=== PATIENT | male | born 1950 | race Caucasian/White ===

== ENCOUNTER 2021-06-21 17:39 | Inpatient (IN) | payer MEDICARE, SELFPAY ==
[2021-06-21 19:18] VITALS: BP 136/70; PULSE 99; RESP 16; TEMP 37; O2SAT 97; BMI 25.7
[2021-06-21 19:54] LABS: COVID-19 Test Negative (Negative)
[2021-06-21 20:02] LABS: MANUAL DIFF FLAG NO
[2021-06-21 20:04] LABS: Basophils Percent Auto 0.3 % (0-2); Eosinophils Percent Auto 0.4 % (0-4); Hematocrit 41.2 % (42.0-52.0); Hemoglobin 13.2 g/dl (14.0-18.0); Imm Gran Abs Auto 0.01 X10*3/uL (0.00-0.03); Imm Gran Pct Auto 0.1 % (0.0-0.4); Lymphocytes Absolute Auto 1.4 X10*3/uL (1.2-4.9); Lymphocytes Percent Auto 19.5 % (20-40); Mean Corpuscular Hemoglobin 31.2 pg (27.0-33.0); Mean Corpuscular Volume 97.4 fL (80.0-98.0); Monocytes Absolute Auto 0.7 X10*3/uL (0.1-1.2); Monocytes Percent Auto 9.4 % (2-11); Neutrophils Absolute Auto 4.9 x10*3/uL (2.0-8.3); Neutrophils Percent Auto 70.3 % (45-73); Platelet Count 286 X10*3/uL (160-400); Red Blood Count 4.23 X10*6/uL (4.60-5.80); Red Cell Distribution Width 12.6 % (11.0-16.0)
[2021-06-21 20:06] LABS: Appearance Urine CLEAR; Color Urine YELLOW; Glucose Urine UA NEG (NEG); Leukocyte Esterase Urine TRACE (NEG); Nitrite Urine NEG (NEG); Urine Blood NEG (NEG); Urine Ketones NEG (NEG); Urine Protein NEG (NEG-TRACE)
[2021-06-21 20:18] LABS: Bacteria Urine TRACE /LPF; RBC Urine 0 /HPF (0); WBC Urine 0-2 /HPF (0-4)
[2021-06-21 20:20] LABS: Alanine Aminotransferase 13 U/L (0-40); Albumin Level 4.5 g/dL (3.5-5.0); Alkaline Phosphatase 113 U/L (39-117); Amphetamine Screen Urine Not Detected (Not Detect); Anion Gap 14 (12-20); Aspartate Amino Transferase 18 U/L (5-37); Barbiturates, Urine Not Detected (Not Detect); Benzodiazepines Screen Urine Not Detected (Not Detect); Bilirubin Direct < 0.2 mg/dL (0.0-0.5); Bilirubin Total 0.2 mg/dL (0.0-1.0); Blood Urea Nitrogen 13 mg/dL (9-16); Calcium 9.9 mg/dL (8.4-10.2); Cannabinoid Screen Urine Not Detected (Not Detect); Carbon Dioxide 30 mmol/L (22-29); Chloride 105 mmol/L (96-108); Cocaine Screen Urine Not Detected (Not Detect); Creatinine Clr Calc Pharmacy 67.3; Estimated Glomerular Filt Rate > 60; Fentanyl, urine Not Detected (Not Detect); Glucose Random 101 mg/dL (60-115); Opiate Screen Urine Not Detected (Not Detect); Phencyclidine Screen Urine Not Detected (Not Detect); Potassium 4.6 mmol/L (3.3-5.1); Sodium 144 mmol/L (135-145)
--- NOTE | 2021-06-21 21:40 | ED_ITS ---
HPI - Psych General Chief Complaint: Psychiatric Symptoms Stated Complaint: see crisis Time Seen by Provider: 06/21/21 19:27 Source: patient Mode of arrival: ambulatory History of Present Illness HPI Narrative: 70-year-old male transgender with a past medical history of tracheal stenosis, presenting to the ED complaining of increased depression with suicidal ideations x months. Reports sent in by his psychiatric nurse for evaluation/admission. Reports recent loss of his cat, with no desire to live or do anything anymore. Admits to many ways that he ponders suicide, but denies SI attempt. Reports compliance with medications. Denies HI, ETOH/illicit drug use, fever/chills, CP/SOB complaint: suicidal ideation and feels depressed Onset (ago): month(s) Related Data Home Medications Medication Instructions Recorded Confirmed amitriptyline 10 mg tablet 20 mg PO BEDTIME 06/21/21 06/21/21 lorazepam 0.5 mg tablet 0.25 mg PO BEDTIME PRN 06/21/21 06/21/21 lorazepam 0.5 mg tablet 0.5 mg PO DAILY@1700 06/21/21 06/21/21 mirabegron 50 mg tablet,extended 1 tab PO DAILY@1700 06/21/21 06/21/21 release 24 hr (Myrbetriq) olanzapine 2.5 mg tablet 2.5 mg PO BEDTIME 06/21/21 06/21/21 pantoprazole 40 mg tablet,delayed 1 tab PO DAILY 06/21/21 06/21/21 release venlafaxine 37.5 mg tablet 37.5 mg PO BEDTIME 06/21/21 06/21/21 zolpidem 10 mg tablet 1 tab PO BEDTIME 06/21/21 06/21/21 Allergies Allergy/AdvReac Type Severity Reaction Status Date / Time ciprofloxacin [From Allergy Unknown DIARRHEA Verified 06/21/21 19:28 CIPRO] Review of Systems Verdana 4l Review of Systems: Verdana 4d Verdana 4d Constitutional: No Fever, No Chills, No Fatigue, No Malaise ENT/Mouth: No Hearing loss, No Ear Pain, No Nasal Congestion, No sore throat Eyes: No Eye Pain, No Swelling, No Redness Cardiovascular: No Chest Pain, No SOB Respiratory: No CoughCough, No Dyspnea Gastrointestinal: No Nausea, No Vomiting, No Diarrhea, No Constipation, No Abdominal pain Genitourinary: No Dysuria, No Hematuria, No Urgency Musculoskeletal: No joint pain, No Myalgias, No Joint Swelling Skin: No Skin Lesions, No rash Neuro: No Weakness, No Dizziness, No Headache Psych: No Anxiety/Panic, + Depression, + SI, No HI/AH/VH, No Social Issues Yes all other systems are reviewed and are negative [facility] Past Medical History Attestation statement: The following information was validated with the patient. Medical History Hard of hearing Tracheal stenosis Transgender Social History Social History Advance Directives: No Advance Directives Information Provided: No Guardian: No Physical Exam Verdana 4l Vital Signs: Verdana 4d Verdana 4d Vital Signs: Verdana 4d Verdana 4Bd Last Vital Signs Verdana 4d Synthetic Soil [employer]ocks Pulper New 4d Synthetic Soil [employer]ocks Pulper New 4d Temp 98.2 F 06/22/21 01:48 Synthetic [place]il [employer] Pulper New 4d Pulse 84 06/22/21 01:48 [employer] [place] Pulper New 4d Resp 18 06/22/21 01:48 BP 139/72 06/22/21 01:48 Pulse Ox 99 06/22/21 01:48 BMI result Body Mass Index 25.7 Const: General: cooperative, healthy appearing, no acute distress, alert and awake Orientation/consciousness: patient oriented x3 Limitations: no limitations HENMT: Head: Yes normal to inspection and Yes atraumatic Ears: hearing grossly normal bilaterally General nose exam: Normal external nose present Face and sinus: Yes normal facial exam Eyes: General: appearance normal, both eyes and all related structures EOM: EOMs intact bilaterally Neck: Neck: Yes normal visual inspection and Yes no meningeal signs Resp: Effort & Inspection: normal respiratory effort and no respiratory distress Auscultation: clear to auscultation bilaterally, no rales, no rhonchi and no wheezes Cardio: Rate: regular rate Heart sounds: S1 normal heart sound present and S2 normal heart sound present GI: Inspection: Yes normal to inspection Palpation (GI): Soft to palpation, nontender and no guarding Skin: Rashes: no rashes Wounds: no wounds Neuro: General: patient oriented x3 and no meningeal signs Gait exam (Neuro): Normal gait present Extrem: General: Yes normal to inspection Psych: Appearance: grossly normal and well kempt Mental Status: mental status grossly normal Affect: normal affect Attitude: cooperative Thought content: Suicidality present, no homicidality and Depressive thoughts present Insight: Good insight present (Psych) Course Course Course Narrative: -no leukocytosis. H&H stable. Labs otherwise unremarkable -UA not infected. Tox screen negative. COVID-19 negative. Patient medically cleared, physician observation initiated as patient needs more time to be evaluated by care team -patient was evaluated by care team and is now an inpatient bed search -0300--ED care transferred to Dr. Membreno's pending bed search. Physician observation initiated MDM - Psych MDM Narrative Medical decision making narrative: 70-year-old male transgender with a past medical history of tracheal stenosis, presenting to the ED complaining of increased depression with suicidal ideations x months. On exam vital signs stable, NAD/nontoxic appearing, physical exam as above. Concern for suicidality/depression Will obtain labs, UA, drug screen, crisis consult Differential Diagnosis Differential diagnosis: Likely suicidal ideation and depression Medical Records Attestation: I reviewed the patient's medical records. Lab Data Attestation: I reviewed the patient's lab results. Result diagrams: 06/21/21 19:54 06/21/21 19:54 Labs: Lab Results 06/21/21 06/21/21 06/21/21 Range/Units 19:35 19:54 19:54 WBC 7.0 (4.8-10.8) X10*3/uL RBC 4.23 L (4.60-5.80) X10*6/uL Hgb 13.2 L (14.0-18.0) g/dl Hct 41.2 L (42.0-52.0) % MCV 97.4 (80.0-98.0) fL MCH 31.2 (27.0-33.0) pg MCHC 32.0 (31.0-36.0) g/dl RDW 12.6 (11.0-16.0) % Plt Count 286 (160-400) X10*3/uL MPV 11.0 (9.4-12.4) fL Immature Gran % (Auto) 0.1 (0.0-0.4) % Neut % (Auto) 70.3 (45-73) % Lymph % (Auto) 19.5 L (20-40) % [place] % (Auto) 9.4 (2-11) % Eos % (Auto) 0.4 (0-4) % Baso % (Auto) 0.3 (0-2) % Lymph # (Auto) 1.4 (1.2-4.9) X10*3/uL [place] # (Auto) 0.7 (0.1-1.2) X10*3/uL Eos # (Auto) 0.0 (0.0-0.4) X10*3/uL Baso # (Auto) 0.0 (0.0-0.2) X10*3/uL Abs Immat Gran (auto) 0.01 (0.00-0.03) X10*3/uL Absolute Neuts (auto) 4.9 (2.0-8.3) x10*3/uL Absolute Nucleated RBC 0.000 (0.0-0.012) X10*3/uL Nucleated RBC % (auto) 0.0 (0.0-0.2) /100WBC Sodium 144 (135-145) mmol/L Potassium 4.6 (3.3-5.1) mmol/L Chloride 105 (96-108) mmol/L Carbon Dioxide 30 H (22-29) mmol/L Anion Gap 14 (12-20) BUN 13 (9-16) mg/dL Creatinine 0.81 (0.5-1.4) mg/dL Estim Creat Clear Calc 67.3 Estimated GFR > 60 Random Glucose 101 (60-115) mg/dL Calcium 9.9 (8.4-10.2) mg/dL Total Bilirubin 0.2 (0.0-1.0) mg/dL Direct Bilirubin < 0.2 (0.0-0.5) mg/dL AST 18 (5-37) U/L ALT 13 (0-40) U/L Alkaline Phosphatase 113 (39-117) U/L Total Protein 7.0 (6.5-8.0) g/dL Albumin 4.5 (3.5-5.0) g/dL Urine Color Urine Appearance Urine pH (5.0-8.0) Ur Specific [place] (1.005-1.025) Urine Protein (NEG-TRACE) MG/DL Urine Glucose (UA) (NEG) MG/DL Urine Ketones (NEG) MG/DL Urine Blood (NEG) Urine Nitrite (NEG) Ur Leukocyte Esterase (NEG) Urine RBC (0) /HPF Urine WBC (0-4) /HPF Ur Squamous Epith Cells /LPF Urine Bacteria /LPF Urine Opiates Screen (Not Detect) Urine Fentanyl Screen (Not Detect) Ur Barbiturates Screen (Not Detect) Ur Phencyclidine Scrn (Not Detect) Ur Amphetamines Screen (Not Detect) U Benzodiazepines Scrn (Not Detect) Urine Cocaine Screen (Not Detect) U Marijuana (THC) Screen (Not Detect) COVID-19 ([facility]) Negative (Negative) COVID-19 Clin Com See Note 06/21/21 06/21/21 Range/Units 19:54 19:54 WBC (4.8-10.8) X10*3/uL RBC (4.60-5.80) X10*6/uL Hgb (14.0-18.0) g/dl Hct (42.0-52.0) % MCV (80.0-98.0) fL MCH (27.0-33.0) pg MCHC (31.0-36.0) g/dl RDW (11.0-16.0) % Plt Count (160-400) X10*3/uL MPV (9.4-12.4) fL Immature Gran % (Auto) (0.0-0.4) % Neut % (Auto) (45-73) % Lymph % (Auto) (20-40) % [place] % (Auto) (2-11) % Eos % (Auto) (0-4) % Baso % (Auto) (0-2) % Lymph # (Auto) (1.2-4.9) X10*3/uL [place] # (Auto) (0.1-1.2) X10*3/uL Eos # (Auto) (0.0-0.4) X10*3/uL Baso # (Auto) (0.0-0.2) X10*3/uL Abs Immat Gran (auto) (0.00-0.03) X10*3/uL Absolute Neuts (auto) (2.0-8.3) x10*3/uL Absolute Nucleated RBC (0.0-0.012) X10*3/uL Nucleated RBC % (auto) (0.0-0.2) /100WBC Sodium (135-145) mmol/L Potassium (3.3-5.1) mmol/L Chloride (96-108) mmol/L Carbon Dioxide (22-29) mmol/L Anion Gap (12-20) BUN (9-16) mg/dL Creatinine (0.5-1.4) mg/dL Estim Creat Clear Calc Estimated GFR Random Glucose (60-115) mg/dL Calcium (8.4-10.2) mg/dL Total Bilirubin (0.0-1.0) mg/dL Direct Bilirubin (0.0-0.5) mg/dL AST (5-37) U/L ALT (0-40) U/L Alkaline Phosphatase (39-117) U/L Total Protein (6.5-8.0) g/dL Albumin (3.5-5.0) g/dL Urine Color YELLOW Urine Appearance CLEAR Urine pH 7.0 (5.0-8.0) Ur Specific [place] 1.010 (1.005-1.025) Urine Protein NEG (NEG-TRACE) MG/DL Urine Glucose (UA) NEG (NEG) MG/DL Urine Ketones NEG (NEG) MG/DL Urine Blood NEG (NEG) Urine Nitrite NEG (NEG) Ur Leukocyte Esterase TRACE H (NEG) Urine RBC 0 (0) /HPF Urine WBC 0-2 (0-4) /HPF Ur Squamous Epith Cells NONE /LPF Urine Bacteria TRACE /LPF Urine Opiates Screen Not Detected (Not Detect) Urine Fentanyl Screen Not Detected (Not Detect) Ur Barbiturates Screen Not Detected (Not Detect) Ur Phencyclidine Scrn Not Detected (Not Detect) Ur Amphetamines Screen Not Detected (Not Detect) U Benzodiazepines Scrn Not Detected (Not Detect) Urine Cocaine Screen Not Detected (Not Detect) U Marijuana (THC) Screen Not Detected (Not Detect) COVID-19 ([facility]) (Negative) COVID-19 Clin Com Discharge Plan Discharge Clinical Impression: Depression, Suicidal ideation Patient Disposition: Still a Patient Prescriptions: No Action olanzapine 2.5 mg tablet 2.5 mg PO BEDTIME 0RF lorazepam 0.5 mg tablet 0.25 mg PO BEDTIME PRN (Reason: Anxiety) 0RF amitriptyline 10 mg tablet 20 mg PO BEDTIME 0RF pantoprazole 40 mg tablet,delayed release (DR/EC) 1 tab PO DAILY 0RF venlafaxine 37.5 mg tablet 37.5 mg PO BEDTIME 0RF zolpidem 10 mg tablet 1 tab PO BEDTIME 0RF Myrbetriq 50 mg tablet extended release 24 hr 1 tab PO DAILY@1700 0RF lorazepam 0.5 mg tablet 0.5 mg PO DAILY@1700 0RF
[2021-06-21] MEDS: Amitriptyline HCl 10 MG TABLET 20 MG PO (22:06)
[2021-06-21] MEDS: OLANZapine 2.5 MG TABLET PO (22:06)
[2021-06-21] MEDS: LORazepam 0.5 MG TABLET PO (22:06)
[2021-06-21] MEDS: Venlafaxine HCL 25 MG TABLET 37.5 MG PO (22:06)
[2021-06-21] MEDS: Zolpidem Tartrate 5 MG TABLET PO (22:06)
[2021-06-21] MEDS: LORazepam 0.5 MG TABLET 0.25 MG PO (22:07)
--- NOTE | 2021-06-22 | ECG_ITS ---
Test Reason : MED CLEARANCE Blood Pressure : / mmHG Vent. Rate : 083 BPM Atrial Rate : 083 BPM P-R Int : 152 ms QRS Dur : 074 ms QT Int : 362 ms P-R-T Axes : 057 047 073 degrees QTc Int : 425 ms Normal sinus rhythm with sinus arrhythmia Nonspecific ST and T wave abnormality Borderline ECG When compared with ECG of 27-MAR-2019 14:31, No significant change was found Referred By: Etienne Marin Electronically Signed By:WILSON YANEZ
[2021-06-22 01:48] VITALS: BP 139/72; PULSE 84; RESP 18; TEMP 36.8; O2SAT 99
--- NOTE | 2021-06-22 05:33 | PC.NURSE ---
Patient slept through the night, no distress observed/reported, patient is trans female to male, behavior appropriate, medication compliant, disposition per care team is section 12 inpatient bed search, VSS, will continue to monitor.
[2021-06-22] MEDS: Omeprazole 20 MG CAPSULE.DR PO (06:22)
--- NOTE | 2021-06-22 07:18 | PC.NURSE ---
patient appears to remain asleep at present respirations are even and unlabored, patient appears in no distress
[2021-06-22 08:03] VITALS: BP 113/61; PULSE 110; RESP 16; TEMP 36.7; O2SAT 92
[2021-06-22 11:17] LABS: COVID-19 Test Negative (Negative); IDNOW Serial# 55D5AD1C
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
[2021-06-22] MEDS: LORazepam 0.5 MG TABLET PO (17:01)
[2021-06-22] MEDS: Mirabegron 50 MG TAB.ER.24H PO (17:53)
[2021-06-22] MEDS: Milk of Magnesia 30 ML ORAL.SUSP PO (17:55)
[2021-06-22 18:00] VITALS: BP 140/88; PULSE 100; RESP 17; TEMP 36.8; O2SAT 95
[2021-06-22] MEDS: Amitriptyline HCl 10 MG TABLET 20 MG PO (21:00)
[2021-06-22] MEDS: Zolpidem Tartrate 5 MG TABLET PO (22:15)
[2021-06-22] MEDS: OLANZapine 5 MG TABLET PO (22:15)
[2021-06-23] MEDS: Omeprazole 20 MG CAPSULE.DR PO (05:15)
[2021-06-23 07:30] VITALS: BP 136/79; PULSE 98; RESP 16; TEMP 36.4; O2SAT 97
[2021-06-23 08:39] LABS: MANUAL DIFF FLAG NO
[2021-06-23 08:45] LABS: Basophils Percent Auto 0.6 % (0-2); Eosinophils Absolute Auto 0.1 X10*3/uL (0.0-0.4); Imm Gran Abs Auto 0.01 X10*3/uL (0.00-0.03); Imm Gran Pct Auto 0.2 % (0.0-0.4); Lymphocytes Absolute Auto 1.3 X10*3/uL (1.2-4.9); Lymphocytes Percent Auto 27.5 % (20-40); Mean Corpuscular HGB Conc 32.5 g/dl (31.0-36.0); Mean Corpuscular Hemoglobin 31.2 pg (27.0-33.0); Mean Corpuscular Volume 95.9 fL (80.0-98.0); Mean Platelet Volume 10.8 fL (9.4-12.4); Monocytes Absolute Auto 0.7 X10*3/uL (0.1-1.2); Monocytes Percent Auto 14.9 % (2-11); Neutrophils Absolute Auto 2.7 x10*3/uL (2.0-8.3); Neutrophils Percent Auto 55.8 % (45-73); Platelet Count 270 X10*3/uL (160-400); Red Blood Count 4.17 X10*6/uL (4.60-5.80); Red Cell Distribution Width 12.6 % (11.0-16.0); White Blood Count 4.8 X10*3/uL (4.8-10.8)
[2021-06-23] MEDS: LORazepam 0.5 MG TABLET PO ×2 (08:48→16:38)
[2021-06-23] MEDS: Escitalopram Oxalate 5 MG TABLET PO (08:48)
[2021-06-23] MEDS: Venlafaxine HCl ER 75 MG CAP.ER.24H PO (08:48)
[2021-06-23 09:12] LABS: Estimated Average Glucose 123 mg/dL; Hemoglobin A1c % 5.9 %
[2021-06-23 09:41] LABS: Alanine Aminotransferase 13 U/L (0-40); Albumin Level 4.3 g/dL (3.5-5.0); Alkaline Phosphatase 102 U/L (39-117); Aspartate Amino Transferase 16 U/L (5-37); Bilirubin Direct 0.2 mg/dL (0.0-0.5); Bilirubin Total 0.4 mg/dL (0.0-1.0); Cholesterol 207 mg/dL; HDL Cholesterol 58 mg/dL; LDL Cholesterol Calculated 114 mg/dl; Total Protein 6.4 g/dL (6.5-8.0); Triglycerides 177 mg/dL
[2021-06-23 10:03] LABS: Thyroid Stimulating Hormone 1.43 uIU/mL (0.32-4.0)
--- NOTE | 2021-06-23 10:07 | MHC.CLN ---
NUTRITION VISITED WITH PATIENT IN COMMON AREA. REPORTS GOOD APPETITE AND FOLLOWS VEGAN DIET. KITCHEN AWARE OF VEGAN DIET.
--- NOTE | 2021-06-23 15:08 | P.PNPSI_ITS ---
Subjective Subjective Date of Service: 06/23/21 Reason For Visit: depression Subjective Notes: Conditional Voluntary Interim History: The nursing staff reported the patient has being out in the common areas. He complained of depressive symptoms elicited by depressed mood, anhedonia, lack of energy and feelings of hopelessness. On interview, the patient was aware about the change of medications that we decided yesterday, we will continue with the taper of Effexor. We will wait for nortriptyline levels. Mental Status Exam Mental Status Exam Patient Appearance: Well Grooomed Patient Orientation: Person Level of Consciousness: Awake Patient Behavior: Cooperative Mood Description: Depressed Affect Description: Constricted Patient Cognition Impaired: No Ability to Follow Directions: Good Speech Pattern: Clear Hallucinations: None Delusions: Not Present Thought Process: Linear Thought Content: positive for Circumstantial Judgement: Fair Diagnostics Vital Signs (24Hr): Vital Signs - 24 hr 06/22/21 18:00 06/23/21 07:30 Temperature 98.2 F 97.6 F Pulse Rate 100 98 Respiratory Rate 17 16 Blood Pressure 140/88 H 136/79 Pulse Oximetry 95 97 BMI result Verdana 4 Body Mass Index Verdana 4 25.7 Verdana 4 Verdana 4 Labs Results: 06/23/21 08:32 06/21/21 19:54 Labs: Laboratory Results - last 48 hr 06/21/21 06/21/21 06/21/21 19:35 19:54 19:54 WBC 7.0 RBC 4.23 L Hgb 13.2 L Hct 41.2 L MCV 97.4 MCH 31.2 MCHC 32.0 RDW 12.6 Plt Count 286 MPV 11.0 Immature Gran % (Auto) 0.1 Neut % (Auto) 70.3 Lymph % (Auto) 19.5 L [place] % (Auto) 9.4 Eos % (Auto) 0.4 Baso % (Auto) 0.3 Lymph # (Auto) 1.4 [place] # (Auto) 0.7 Eos # (Auto) 0.0 Baso # (Auto) 0.0 Abs Immat Gran (auto) 0.01 Absolute Neuts (auto) 4.9 Absolute Nucleated RBC 0.000 Nucleated RBC % (auto) 0.0 Sodium 144 Potassium 4.6 Chloride 105 Carbon Dioxide 30 H Anion Gap 14 BUN 13 Creatinine 0.81 Estim Creat Clear Calc 67.3 Estimated GFR > 60 Random Glucose 101 Estimat Average Glucose Hemoglobin A1c % Calcium 9.9 Total Bilirubin 0.2 Direct Bilirubin < 0.2 AST 18 ALT 13 Alkaline Phosphatase 113 Total Protein 7.0 Albumin 4.5 Triglycerides Cholesterol LDL Cholesterol, Calc HDL Cholesterol TSH Urine Color Urine Appearance Urine pH Ur Specific Horatio Urine Protein Urine Glucose (UA) Urine Ketones Urine Blood Urine Nitrite Ur Leukocyte Esterase Urine RBC Urine WBC Ur Squamous Epith Cells Urine Bacteria Urine Opiates Screen Urine Fentanyl Screen Ur Barbiturates Screen Ur Phencyclidine Scrn Ur Amphetamines Screen U Benzodiazepines Scrn Urine Cocaine Screen U Marijuana (THC) Screen COVID-19 ([facility]) Negative COVID-CIQUAL Com See Note 06/21/21 06/21/21 06/22/21 19:54 19:54 10:53 WBC RBC Hgb Hct MCV MCH MCHC RDW Plt Count MPV Immature Gran % (Auto) Neut % (Auto) Lymph % (Auto) [place] % (Auto) Eos % (Auto) Baso % (Auto) Lymph # (Auto) [place] # (Auto) Eos # (Auto) Baso # (Auto) Abs Immat Gran (auto) Absolute Neuts (auto) Absolute Nucleated RBC Nucleated RBC % (auto) Sodium Potassium Chloride Carbon Dioxide Anion Gap BUN Creatinine Estim Creat Clear Calc Estimated GFR Random Glucose Estimat Average Glucose Hemoglobin A1c % Calcium Total Bilirubin Direct Bilirubin AST ALT Alkaline Phosphatase Total Protein Albumin Triglycerides Cholesterol LDL Cholesterol, Calc HDL Cholesterol TSH Urine Color YELLOW Urine Appearance CLEAR Urine pH 7.0 Ur Specific [place] 1.010 Urine Protein NEG Urine Glucose (UA) NEG Urine Ketones NEG Urine Blood NEG Urine Nitrite NEG Ur Leukocyte Esterase TRACE H Urine RBC 0 Urine WBC 0-2 Ur Squamous Epith Cells NONE Urine Bacteria TRACE Urine Opiates Screen Not Detected Urine Fentanyl Screen Not Detected Ur Barbiturates Screen Not Detected Ur Phencyclidine Scrn Not Detected Ur Amphetamines Screen Not Detected U Benzodiazepines Scrn Not Detected Urine Cocaine Screen Not Detected U Marijuana (THC) Screen Not Detected COVID-19 ([facility]) Negative [facility] See Note 06/23/21 06/23/21 06/23/21 08:32 08:32 08:32 WBC 4.8 RBC 4.17 L Hgb 13.0 L Hct 40.0 L MCV 95.9 MCH 31.2 MCHC 32.5 RDW 12.6 Plt Count 270 MPV 10.8 Immature Gran % (Auto) 0.2 Neut % (Auto) 55.8 Lymph % (Auto) 27.5 [place] % (Auto) 14.9 H Eos % (Auto) 1.0 Baso % (Auto) 0.6 Lymph # (Auto) 1.3 [place] # (Auto) 0.7 Eos # (Auto) 0.1 Baso # (Auto) 0.0 Abs Immat Gran (auto) 0.01 Absolute Neuts (auto) 2.7 Absolute Nucleated RBC 0.000 Nucleated RBC % (auto) 0.0 Sodium Potassium Chloride Carbon Dioxide Anion Gap BUN Creatinine Estim Creat Clear Calc Estimated GFR Random Glucose Estimat Average Glucose 123 Hemoglobin A1c % 5.9 Calcium Total Bilirubin 0.4 Direct Bilirubin 0.2 AST 16 ALT 13 Alkaline Phosphatase 102 Total Protein 6.4 L Albumin 4.3 Triglycerides 177 Cholesterol 207 LDL Cholesterol, Calc 114 HDL Cholesterol 58 TSH 1.43 Urine Color Urine Appearance Urine pH Ur Specific [place] Urine Protein Urine Glucose (UA) Urine Ketones Urine Blood Urine Nitrite Ur Leukocyte Esterase Urine RBC Urine WBC Ur Squamous Epith Cells Urine Bacteria Urine Opiates Screen Urine Fentanyl Screen Ur Barbiturates Screen Ur Phencyclidine Scrn Ur Amphetamines Screen U Benzodiazepines Scrn Urine Cocaine Screen U Marijuana (THC) Screen COVID-19 ([facility]) COVID-19 Clin Com Medications Medications Current Medications Acetaminophen (Acetaminophen 325 Mg Tablet) 650 mg PO Q6H PRN PRN Reason: Headache/Pain Mild Scale (1-3) Al Hydroxide/Mg Hydroxide (Magnesium Hydrox/Alum Hydrox 30 Ml Oral.Susp) 30 ml PO Q6H PRN PRN Reason: Heartburn/Nausea Amitriptyline HCl (Amitriptyline Hcl 10 Mg Tablet) 20 mg PO BEDTIME REPLACED BY [facility] Last Admin: 06/22/21 21:00 Dose: 20 mg Documented by: Benzocaine (Throat Lozenge, Medicated Lozenge) 1 lozenge MUCOUS MEM Q2H PRN PRN Reason: Sore Throat Escitalopram Oxalate (Escitalopram Oxalate 5 Mg Tablet) 5 mg PO DAILY REPLACED BY [facility] Last Admin: 06/23/21 08:48 Dose: 5 mg Documented by: Hydroxyzine HCl (Hydroxyzine Hcl 25 Mg Tablet) 25 mg PO BEDTIME PRN PRN Reason: Anxiety Lorazepam (Lorazepam 0.5 Mg Tablet) 0.25 mg PO BEDTIME PRN PRN Reason: Anxiety Last Admin: 06/21/21 22:07 Dose: 0.25 mg Documented by: Lorazepam (Lorazepam 0.5 Mg Tablet) 0.5 mg PO BID@0900,1700 REPLACED BY [facility] Last Admin: 06/23/21 08:48 Dose: 0.5 mg Documented by: Magnesium Hydroxide (Milk Of Magnesia 30 Ml Oral.Susp) 30 ml PO DAILY PRN PRN Reason: Constipation Last Admin: 06/22/21 17:55 Dose: 30 ml Documented by: Mirabegron (Mirabegron 50 Mg Tab.Er.24h) 50 mg PO DAILY@1700 REPLACED BY [facility] Last Admin: 06/22/21 17:53 Dose: 50 mg Documented by: Olanzapine (Olanzapine 5 Mg Tablet) 5 mg PO BEDTIME REPLACED BY [facility] Last Admin: 06/22/21 22:15 Dose: 5 mg Documented by: Omeprazole (Omeprazole 20 Mg Capsule.Dr) 20 mg PO DAILY@0630 REPLACED BY [facility] Last Admin: 06/23/21 05:15 Dose: 20 mg Documented by: Trazodone HCl (Trazodone Hcl 50 Mg Tablet) 50 mg PO BEDTIME PRN PRN Reason: Insomnia Venlafaxine HCl (Venlafaxine Hcl Er 75 Mg Cap.Er.24h) 75 mg PO DAILY REPLACED BY [facility] Last Admin: 06/23/21 08:48 Dose: 75 mg Documented by: Zolpidem Tartrate (Zolpidem Tartrate 5 Mg Tablet) 5 mg PO BEDTIME REPLACED BY [facility] Last Admin: 06/22/21 22:15 Dose: 5 mg Documented by: Allergies Allergies Allergy/AdvReac Type Severity Reaction Status Date / Time ciprofloxacin [From Allergy Unknown DIARRHEA Verified 06/21/21 19:28 CIPRO] Assessment & Plan Assessment & Plan (1) Major depressive disorder: Status: Acute Code(s): F32.9 - Major depressive disorder, single episode, unspecified Plan Elderly transgender male with a long history of depression and anxiety admitted for exacerbation of and only a, lack of energy and suicidal thoughts in the context of losses. Plan 1. Follow blood work, amitriptyline level. 2. Continue on Effexor 75 until tomorrow. 3. Keep Lexapro 5 mg p.o. q.h.s.. 4. Gather collateral information I spent minutes with the patient and/or on the patient floor today, greater than?50% of which was spent counseling/coordinating care. Reason for contiued inpatient stay Substantial Risk for: harm to self, inability to function, rapid decompensation and med/psych decompensation
[2021-06-23] MEDS: Throat Lozenge, Medicated LOZENGE 1 LOZENGE MUCOUS MEM (15:17)
[2021-06-23] MEDS: Mirabegron 50 MG TAB.ER.24H PO (16:38)
[2021-06-23 18:00] VITALS: BP 117/57; PULSE 94; RESP 17; TEMP 36.4; O2SAT 99
[2021-06-23] MEDS: Amitriptyline HCl 10 MG TABLET 20 MG PO (21:23)
[2021-06-23] MEDS: Zolpidem Tartrate 5 MG TABLET PO (21:24)
[2021-06-23] MEDS: OLANZapine 5 MG TABLET PO (21:24)
[2021-06-24] MEDS: hydrOXYzine HCL 25 MG TABLET PO (00:48)
--- NOTE | 2021-06-24 01:45 | PC.NURSE ---
Pt took all meds without incident on time.
[2021-06-24 07:45] VITALS: BP 140/81; PULSE 92; RESP 16; TEMP 36.3; O2SAT 98
[2021-06-24] MEDS: Escitalopram Oxalate 5 MG TABLET PO (08:35)
[2021-06-24] MEDS: LORazepam 0.5 MG TABLET PO ×2 (08:35→17:14)
[2021-06-24] MEDS: Venlafaxine HCl ER 75 MG CAP.ER.24H PO (08:35)
[2021-06-24 14:23] VITALS: BMI 26.0
--- NOTE | 2021-06-24 16:10 | P.PNPSI_ITS ---
Subjective Subjective Date of Service: 06/24/21 Reason For Visit: depression Subjective Notes: Conditional Voluntary Interim History: The staff reported that the patient stated that he is fully coimmitted to get better. The social services assistant explored different options such as VNA, PHP and other ancillary services. On interview, he reported no side effects with the current crosstaper. Mental Status Exam Mental Status Exam Patient Appearance: Well Grooomed Patient Orientation: Person Level of Consciousness: Awake Patient Behavior: Appropriate Mood Description: Calm Affect Description: Withdrawn Patient Cognition Impaired: No Ability to Follow Directions: Good Speech Pattern: Clear Hallucinations: None Delusions: Not Present Thought Process: Linear Thought Content: positive for Circumstantial and positive for Poverty of Content Judgement: Fair Diagnostics Vital Signs (24Hr): Vital Signs - 24 hr 06/23/21 18:00 06/24/21 07:45 Temperature 97.6 F 97.3 F Pulse Rate 94 92 Respiratory Rate 17 16 Blood Pressure 117/57 L 140/81 H Pulse Oximetry 99 98 BMI result Verdana 4 Body Mass Index Verdana 4 26.0 Verdana 4 Verdana 4 Labs Results: 06/23/21 08:32 06/21/21 19:54 Labs: Laboratory Results - last 48 hr 06/23/21 06/23/21 06/23/21 08:32 08:32 08:32 WBC 4.8 RBC 4.17 L Hgb 13.0 L Hct 40.0 L MCV 95.9 MCH 31.2 MCHC 32.5 RDW 12.6 Plt Count 270 MPV 10.8 Immature Gran % (Auto) 0.2 Neut % (Auto) 55.8 Lymph % (Auto) 27.5 [place] % (Auto) 14.9 H Eos % (Auto) 1.0 Baso % (Auto) 0.6 Lymph # (Auto) 1.3 [place] # (Auto) 0.7 Eos # (Auto) 0.1 Baso # (Auto) 0.0 Abs Immat Gran (auto) 0.01 Absolute Neuts (auto) 2.7 Absolute Nucleated RBC 0.000 Nucleated RBC % (auto) 0.0 Estimat Average Glucose 123 Hemoglobin A1c % 5.9 Total Bilirubin 0.4 Direct Bilirubin 0.2 AST 16 ALT 13 Alkaline Phosphatase 102 Total Protein 6.4 L Albumin 4.3 Triglycerides 177 Cholesterol 207 LDL Cholesterol, Calc 114 HDL Cholesterol 58 TSH 1.43 Medications Medications Current Medications Acetaminophen (Acetaminophen 325 Mg Tablet) 650 mg PO Q6H PRN PRN Reason: Headache/Pain Mild Scale (1-3) Al Hydroxide/Mg Hydroxide (Magnesium Hydrox/Alum Hydrox 30 Ml Oral.Susp) 30 ml PO Q6H PRN PRN Reason: Heartburn/Nausea Amitriptyline HCl (Amitriptyline Hcl 10 Mg Tablet) 20 mg PO BEDTIME [facility] Last Admin: 06/23/21 21:23 Dose: 20 mg Documented by: Benzocaine (Throat Lozenge, Medicated Lozenge) 1 lozenge MUCOUS MEM Q2H PRN PRN Reason: Sore Throat Last Admin: 06/23/21 15:17 Dose: 1 lozenge Documented by: Escitalopram Oxalate (Escitalopram Oxalate 5 Mg Tablet) 5 mg PO DAILY [facility] Last Admin: 06/24/21 08:35 Dose: 5 mg Documented by: Hydroxyzine HCl (Hydroxyzine Hcl 25 Mg Tablet) 25 mg PO BEDTIME PRN PRN Reason: Anxiety Last Admin: 06/24/21 00:48 Dose: 25 mg Documented by: Lorazepam (Lorazepam 0.5 Mg Tablet) 0.25 mg PO BEDTIME PRN PRN Reason: Anxiety Last Admin: 06/21/21 22:07 Dose: 0.25 mg Documented by: Lorazepam (Lorazepam 0.5 Mg Tablet) 0.5 mg PO BID@0900,1700 [facility] Last Admin: 06/24/21 08:35 Dose: 0.5 mg Documented by: Magnesium Hydroxide (Milk Of Magnesia 30 Ml Oral.Susp) 30 ml PO DAILY PRN PRN Reason: Constipation Last Admin: 06/22/21 17:55 Dose: 30 ml Documented by: Mirabegron (Mirabegron 50 Mg Tab.Er.24h) 50 mg PO DAILY@1700 [facility] Last Admin: 06/23/21 16:38 Dose: 50 mg Documented by: Olanzapine (Olanzapine 5 Mg Tablet) 5 mg PO BEDTIME [facility] Last Admin: 06/23/21 21:24 Dose: 5 mg Documented by: Omeprazole (Omeprazole 20 Mg Capsule.Dr) 20 mg PO DAILY@0630 [facility] Last Admin: 06/24/21 08:35 Dose: Not Given Documented by: Trazodone HCl (Trazodone Hcl 50 Mg Tablet) 50 mg PO BEDTIME PRN PRN Reason: Insomnia Venlafaxine HCl (Venlafaxine Hcl Er 75 Mg Cap.Er.24h) 75 mg PO DAILY [facility] Last Admin: 06/24/21 08:35 Dose: 75 mg Documented by: Zolpidem Tartrate (Zolpidem Tartrate 5 Mg Tablet) 5 mg PO BEDTIME [facility] Last Admin: 06/23/21 21:24 Dose: 5 mg Documented by: Allergies Allergies Allergy/AdvReac Type Severity Reaction Status Date / Time ciprofloxacin [From Allergy Unknown DIARRHEA Verified 06/21/21 19:28 CIPRO] Assessment & Plan Assessment & Plan (1) Major depressive disorder: Status: Acute Code(s): F32.9 - Major depressive disorder, single episode, unspecified Plan Elderly transgender male with a long history of depression and anxiety admitted for exacerbation of and only a, lack of energy and suicidal thoughts in the context of losses. Plan 1. Follow blood work, amitriptyline level. 2. Continue on Effexor 75 until tomorrow. 3. Keep Lexapro 5 mg p.o. q.h.s.. 4. Gather collateral information I spent minutes with the patient and/or on the patient floor today, greater than?50% of which was spent counseling/coordinating care. Reason for contiued inpatient stay Substantial Risk for: harm to self, rapid decompensation and med/psych d ecompensation
[2021-06-24] MEDS: Mirabegron 50 MG TAB.ER.24H PO (17:14)
[2021-06-24] MEDS: Throat Lozenge, Medicated LOZENGE 1 LOZENGE MUCOUS MEM (18:37)
[2021-06-24 20:04] VITALS: BP 134/62; PULSE 98; RESP 18; TEMP 36.3; O2SAT 99
[2021-06-24] MEDS: Amitriptyline HCl 10 MG TABLET 20 MG PO (20:55)
[2021-06-24] MEDS: OLANZapine 5 MG TABLET PO (21:59)
[2021-06-24] MEDS: Zolpidem Tartrate 5 MG TABLET PO (21:59)
[2021-06-25 06:00] VITALS: BP 135/81; PULSE 97; RESP 16; TEMP 36.3; O2SAT 99
[2021-06-25] MEDS: Omeprazole 20 MG CAPSULE.DR PO (06:00)
[2021-06-25] MEDS: Venlafaxine HCl ER 75 MG CAP.ER.24H PO (08:05)
[2021-06-25] MEDS: LORazepam 0.5 MG TABLET PO ×2 (08:05→16:26)
[2021-06-25] MEDS: Escitalopram Oxalate 5 MG TABLET PO (08:05)
--- NOTE | 2021-06-25 15:55 | P.PNPSI_ITS ---
Subjective Subjective Date of Service: 06/25/21 Reason For Visit: depression Subjective Notes: Conditional Voluntary Interim History: The nursing staff reported the patient has been cooperative and pleasant, very motivated to continue treatment and attending to all groups. On interview, he does not report any side effects with the tapering of Effexor. I explained him that most likely he will feel a little restless when we dropped Effexor up to 37.5. The plan is to go higher Lexapro when we discontinue completely Effexor early next week. Tricyclic antidepressant level still pending Mental Status Exam Mental Status Exam Patient Appearance: Well Grooomed Patient Orientation: Person, Place and Situation Level of Consciousness: Awake Patient Behavior: Cooperative Mood Description: Calm and Depressed Affect Description: Constricted Patient Cognition Impaired: No Ability to Follow Directions: Good Speech Pattern: Clear Memory Description: Intact Hallucinations: None Delusions: Not Present Thought Process: Linear Thought Content: positive for Goal Oriented and positive for Linear Judgement: Fair Diagnostics Vital Signs (24Hr): Vital Signs - 24 hr 06/24/21 20:04 06/25/21 06:00 Temperature 97.3 F 97.3 F Pulse Rate 98 97 Respiratory Rate 18 16 Blood Pressure 134/62 135/81 Pulse Oximetry 99 99 BMI result Verdana 4 Body Mass Index Verdana 4 26.0 Verdana 4 Verdana 4 Labs Results: 06/23/21 08:32 06/21/21 19:54 Medications Medications Current Medications Acetaminophen (Acetaminophen 325 Mg Tablet) 650 mg PO Q6H PRN PRN Reason: Headache/Pain Mild Scale (1-3) Al Hydroxide/Mg Hydroxide (Magnesium Hydrox/Alum Hydrox 30 Ml Oral.Susp) 30 ml PO Q6H PRN PRN Reason: Heartburn/Nausea Amitriptyline HCl (Amitriptyline Hcl 10 Mg Tablet) 20 mg PO BEDTIME [facility] Last Admin: 06/24/21 20:55 Dose: 20 mg Documented by: Benzocaine (Throat Lozenge, Medicated Lozenge) 1 lozenge MUCOUS MEM Q2H PRN PRN Reason: Sore Throat Last Admin: 06/24/21 18:37 Dose: 1 lozenge Documented by: Escitalopram Oxalate (Escitalopram Oxalate 5 Mg Tablet) 5 mg PO DAILY [facility] Last Admin: 06/25/21 08:05 Dose: 5 mg Documented by: Hydroxyzine HCl (Hydroxyzine Hcl 25 Mg Tablet) 25 mg PO BEDTIME PRN PRN Reason: Anxiety Last Admin: 06/24/21 00:48 Dose: 25 mg Documented by: Lorazepam (Lorazepam 0.5 Mg Tablet) 0.25 mg PO BEDTIME PRN PRN Reason: Anxiety Last Admin: 06/21/21 22:07 Dose: 0.25 mg Documented by: Lorazepam (Lorazepam 0.5 Mg Tablet) 0.5 mg PO BID@0900,1700 [facility] Last Admin: 06/25/21 08:05 Dose: 0.5 mg Documented by: Magnesium Hydroxide (Milk Of Magnesia 30 Ml Oral.Susp) 30 ml PO DAILY PRN PRN Reason: Constipation Last Admin: 06/22/21 17:55 Dose: 30 ml Documented by: Mirabegron (Mirabegron 50 Mg Tab.Er.24h) 50 mg PO DAILY@1700 [facility] Last Admin: 06/24/21 17:14 Dose: 50 mg Documented by: Olanzapine (Olanzapine 5 Mg Tablet) 5 mg PO BEDTIME [facility] Last Admin: 06/24/21 21:59 Dose: 5 mg Documented by: Omeprazole (Omeprazole 20 Mg Capsule.Dr) 20 mg PO DAILY@0630 [facility] Last Admin: 06/25/21 06:00 Dose: 20 mg Documented by: Trazodone HCl (Trazodone Hcl 50 Mg Tablet) 50 mg PO BEDTIME PRN PRN Reason: Insomnia Venlafaxine HCl (Venlafaxine Hcl Er 75 Mg Cap.Er.24h) 75 mg PO DAILY [facility] Last Admin: 06/25/21 08:05 Dose: 75 mg Documented by: Zolpidem Tartrate (Zolpidem Tartrate 5 Mg Tablet) 5 mg PO BEDTIME [facility] Last Admin: 06/24/21 21:59 Dose: 5 mg Documented by: Allergies Allergies Allergy/AdvReac Type Severity Reaction Status Date / Time ciprofloxacin [From Allergy Unknown DIARRHEA Verified 06/21/21 19:28 CIPRO] Assessment & Plan Assessment & Plan (1) Major depressive disorder: Status: Acute Code(s): F32.9 - Major depressive disorder, single episode, unspecified Plan Elderly transgender male with a long history of depression and anxiety admitted for exacerbation of and only a, lack of energy and suicidal thoughts in the context of losses. Plan 1. Follow blood work, amitriptyline level. 2. Lower Effexor up to 37.5 for the weekend 3. Keep Lexapro 5 mg p.o. q.h.s.. 4. Gather collateral information I spent minutes with the patient and/or on the patient floor today, greater than?50% of which was spent counseling/coordinating care. Reason for contiued inpatient stay Substantial Risk for: inability to function, rapid decompensation and med/psych decompensation
[2021-06-25] MEDS: Mirabegron 50 MG TAB.ER.24H PO (16:26)
[2021-06-25 20:16] VITALS: BP 121/57; PULSE 95; RESP 17; TEMP 36.2; O2SAT 97
[2021-06-25] MEDS: Amitriptyline HCl 10 MG TABLET 20 MG PO (21:21)
[2021-06-25] MEDS: OLANZapine 5 MG TABLET PO (21:51)
[2021-06-25] MEDS: Zolpidem Tartrate 5 MG TABLET PO (21:51)
[2021-06-26 06:00] VITALS: BP 143/65; PULSE 100; RESP 20; TEMP 36.6; O2SAT 97
[2021-06-26] MEDS: Omeprazole 20 MG CAPSULE.DR PO (06:13)
--- NOTE | 2021-06-26 07:49 | P.PNPSI_ITS ---
Subjective Subjective Date of Service: 06/26/21 Reason For Visit: depression Subjective Notes: Conditional Voluntary Interim History: 06/25:The nursing staff reported the patient has been cooperative and pleasant, very motivated to continue treatment and attending to all groups. On interview, he does not report any side effects with the tapering of Effexor. I explained him that most likely he will feel a little restless when we dropped Effexor up to 37.5. The plan is to go higher Lexapro when we discontinue completely Effexor early next week. Tricyclic antidepressant level still pending 06/26: Pleasant. States still depressed but slowly improving. No SI. Aware of med changes Review of Systems Medical Review of Systems: unchanged Review of Systems Review of Systems Yes all other systems are reviewed and are negative Mental Status Exam Mental Status Exam Patient Appearance: Well Grooomed Patient Orientation: Person, Place and Situation Level of Consciousness: Awake Patient Behavior: Cooperative Mood Description: Calm and Depressed Affect Description: Constricted Patient Cognition Impaired: No Ability to Follow Directions: Good Speech Pattern: Clear Memory Description: Intact Diagnostics Vital Signs (24Hr): Vital Signs - 24 hr 06/25/21 20:16 Temperature 97.1 F Pulse Rate 95 Respiratory Rate 17 Blood Pressure 121/57 L Pulse Oximetry 97 BMI result Verdana 4 Body Mass Index Verdana 4 26.0 Verd[place] 4 [place] 4 Labs Results: 06/23/21 08:32 06/21/21 19:54 Medications Medications Current Medications Acetaminophen (Acetaminophen 325 Mg Tablet) 650 mg PO Q6H PRN PRN Reason: Headache/Pain Mild Scale (1-3) Al Hydroxide/Mg Hydroxide (Magnesium Hydrox/Alum Hydrox 30 Ml Oral.Susp) 30 ml PO Q6H PRN PRN Reason: Heartburn/Nausea Amitriptyline HCl (Amitriptyline Hcl 10 Mg Tablet) 20 mg PO BEDTIME [facility] Last Admin: 06/25/21 21:21 Dose: 20 mg Documented by: Benzocaine (Throat Lozenge, Medicated Lozenge) 1 lozenge MUCOUS MEM Q2H PRN PRN Reason: Sore Throat Last Admin: 06/24/21 18:37 Dose: 1 lozenge Documented by: Escitalopram Oxalate (Escitalopram Oxalate 5 Mg Tablet) 5 mg PO DAILY [facility] Last Admin: 06/25/21 08:05 Dose: 5 mg Documented by: Hydroxyzine HCl (Hydroxyzine Hcl 25 Mg Tablet) 25 mg PO BEDTIME PRN PRN Reason: Anxiety Last Admin: 06/24/21 00:48 Dose: 25 mg Documented by: Lorazepam (Lorazepam 0.5 Mg Tablet) 0.25 mg PO BEDTIME PRN PRN Reason: Anxiety Last Admin: 06/21/21 22:07 Dose: 0.25 mg Documented by: Lorazepam (Lorazepam 0.5 Mg Tablet) 0.5 mg PO BID@0900,1700 [facility] Last Admin: 06/25/21 16:26 Dose: 0.5 mg Documented by: Magnesium Hydroxide (Milk Of Magnesia 30 Ml Oral.Susp) 30 ml PO DAILY PRN PRN Reason: Constipation Last Admin: 06/22/21 17:55 Dose: 30 ml Documented by: Mirabegron (Mirabegron 50 Mg Tab.Er.24h) 50 mg PO DAILY@1700 [facility] Last Admin: 06/25/21 16:26 Dose: 50 mg Documented by: Olanzapine (Olanzapine 5 Mg Tablet) 5 mg PO BEDTIME [facility] Last Admin: 06/25/21 21:51 Dose: 5 mg Documented by: Omeprazole (Omeprazole 20 Mg Capsule.Dr) 20 mg PO DAILY@0630 [facility] Last Admin: 06/26/21 06:13 Dose: 20 mg Documented by: Trazodone HCl (Trazodone Hcl 50 Mg Tablet) 50 mg PO BEDTIME PRN PRN Reason: Insomnia Venlafaxine HCl (Venlafaxine Hcl Er 37.5 Mg Cap.Er.24h) 37.5 mg PO DAILY [facility] Zolpidem Tartrate (Zolpidem Tartrate 5 Mg Tablet) 5 mg PO BEDTIME [facility] Last Admin: 06/25/21 21:51 Dose: 5 mg Documented by: Allergies Allergies Allergy/AdvReac Type Severity Reaction Status Date / Time ciprofloxacin [From Allergy Unknown DIARRHEA Verified 06/21/21 19:28 CIPRO] Assessment & Plan Assessment & Plan (1) Major depressive disorder: Status: Acute Code(s): F32.9 - Major depressive disorder, single episode, unspecified Plan Elderly transgender male with a long history of depression and anxiety admitted for exacerbation of and only a, lack of energy and suicidal thoughts in the context of losses. Plan 1. Follow blood work, amitriptyline level. 2. Lower Effexor up to 37.5 for the weekend 3. Keep Lexapro 5 mg p.o. q.h.s.. 4. Gather collateral information 06/26: Ct Rx plan . Elavil level pending I spent minutes with the patient and/or on the patient floor today, greater than?50% of which was spent counseling/coordinating care. Reason for contiued inpatient stay Substantial Risk for: inability to function
[2021-06-26] MEDS: Venlafaxine HCl ER 37.5 MG CAP.ER.24H PO (08:41)
[2021-06-26] MEDS: LORazepam 0.5 MG TABLET PO ×2 (08:41→17:38)
[2021-06-26] MEDS: Escitalopram Oxalate 5 MG TABLET PO (08:41)
[2021-06-26] MEDS: Mirabegron 50 MG TAB.ER.24H PO (17:38)
[2021-06-26] MEDS: OLANZapine 5 MG TABLET PO (21:39)
[2021-06-26] MEDS: Amitriptyline HCl 10 MG TABLET 20 MG PO (21:39)
[2021-06-26 22:32] VITALS: BP 116/72; PULSE 96; RESP 17; TEMP 36.2; O2SAT 97
[2021-06-26] MEDS: Zolpidem Tartrate 5 MG TABLET PO (22:37)
--- NOTE | 2021-06-27 04:11 | P.PNPSI_ITS ---
Subjective Subjective Date of Service: 06/27/21 Reason For Visit: depression Subjective Notes: Conditional Voluntary Interim History: 06/25:The nursing staff reported the patient has been cooperative and pleasant, very motivated to continue treatment and attending to all groups. On interview, he does not report any side effects with the tapering of Effexor. I explained him that most likely he will feel a little restless when we dropped Effexor up to 37.5. The plan is to go higher Lexapro when we discontinue completely Effexor early next week. Tricyclic antidepressant level still pending 06/26: Pleasant. States still depressed but slowly improving. No SI. Aware of med changes 06/27: Pleasant . No complaint. Hx Effexor, now Lexapro. Educated re TMS if fails Lexapro. Medication Compliance: Yes Side effects from medications: No Attending Groups: Yes Review of Systems Review of Systems Yes all other systems are reviewed and are negative Mental Status Exam Mental Status Exam Patient Appearance: Well Grooomed Patient Orientation: Person, Place and Situation Level of Consciousness: Awake Patient Behavior: Cooperative Mood Description: Calm and Depressed Affect Description: Constricted Patient Cognition Impaired: No Ability to Follow Directions: Good Speech Pattern: Clear Memory Description: Intact Diagnostics Vital Signs (24Hr): Vital Signs - 24 hr 06/26/21 06:00 06/26/21 22:32 Temperature 97.8 F 97.2 F Pulse Rate 100 96 Respiratory Rate 20 17 Blood Pressure 143/65 H 116/72 Pulse Oximetry 97 97 BMI result Verdana 4 Body Mass Index Verdana 4 26.0 Verdana 4 Verdana 4 Labs Results: 06/23/21 08:32 06/21/21 19:54 Medications Medications Current Medications Acetaminophen (Acetaminophen 325 Mg Tablet) 650 mg PO Q6H PRN PRN Reason: Headache/Pain Mild Scale (1-3) Al Hydroxide/Mg Hydroxide (Magnesium Hydrox/Alum Hydrox 30 Ml Oral.Susp) 30 ml PO Q6H PRN PRN Reason: Heartburn/Nausea Amitriptyline HCl (Amitriptyline Hcl 10 Mg Tablet) 20 mg PO BEDTIME SAL Last Admin: 06/26/21 21:39 Dose: 20 mg Documented by: Benzocaine (Throat Lozenge, Medicated Lozenge) 1 lozenge MUCOUS MEM Q2H PRN PRN Reason: Sore Throat Last Admin: 06/24/21 18:37 Dose: 1 lozenge Documented by: Escitalopram Oxalate (Escitalopram Oxalate 5 Mg Tablet) 5 mg PO DAILY [facility] Last Admin: 06/26/21 08:41 Dose: 5 mg Documented by: Hydroxyzine HCl (Hydroxyzine Hcl 25 Mg Tablet) 25 mg PO BEDTIME PRN PRN Reason: Anxiety Last Admin: 06/24/21 00:48 Dose: 25 mg Documented by: Lorazepam (Lorazepam 0.5 Mg Tablet) 0.5 mg PO BID@0900,1700 [facility] Last Admin: 06/26/21 17:38 Dose: 0.5 mg Documented by: Magnesium Hydroxide (Milk Of Magnesia 30 Ml Oral.Susp) 30 ml PO DAILY PRN PRN Reason: Constipation Last Admin: 06/22/21 17:55 Dose: 30 ml Documented by: Mirabegron (Mirabegron 50 Mg Tab.Er.24h) 50 mg PO DAILY@1700 [facility] Last Admin: 06/26/21 17:38 Dose: 50 mg Documented by: Olanzapine (Olanzapine 5 Mg Tablet) 5 mg PO BEDTIME [facility] Last Admin: 06/26/21 21:39 Dose: 5 mg Documented by: Omeprazole (Omeprazole 20 Mg Capsule.Dr) 20 mg PO DAILY@0630 [facility] Last Admin: 06/26/21 06:13 Dose: 20 mg Documented by: Trazodone HCl (Trazodone Hcl 50 Mg Tablet) 50 mg PO BEDTIME PRN PRN Reason: Insomnia Venlafaxine HCl (Venlafaxine Hcl Er 37.5 Mg Cap.Er.24h) 37.5 mg PO DAILY [facility] Last Admin: 06/26/21 08:41 Dose: 37.5 mg Documented by: Zolpidem Tartrate (Zolpidem Tartrate 5 Mg Tablet) 5 mg PO BEDTIME [facility] Last Admin: 06/26/21 22:37 Dose: 5 mg Documented by: Allergies Allergies Allergy/AdvReac Type Severity Reaction Status Date / Time ciprofloxacin [From Allergy Unknown DIARRHEA Verified 06/21/21 19:28 CIPRO] Assessment & Plan Assessment & Plan (1) Major depressive disorder: Status: Acute Code(s): F32.9 - Major depressive disorder, single episode, unspecified Plan Elderly transgender male with a long history of depression and anxiety admitted for exacerbation of and only a, lack of energy and suicidal thoughts in the context of losses. Plan 1. Follow blood work, amitriptyline level. 2. Lower Effexor up to 37.5 for the weekend 3. Keep Lexapro 5 mg p.o. q.h.s.. 4. Gather collateral information 06/26: Ct Rx plan . Elavil level pending 06/27: Ct Rx plan. ? explore TMS I spent minutes with the patient and/or on the patient floor today, greater than?50% of which was spent counseling/coordinating care. Patient educated on: diagnosis and TMS Informed Consent: understands Reason for contiued inpatient stay Substantial Risk for: harm to self
[2021-06-27 06:00] VITALS: BP 138/65; PULSE 87; TEMP 36.7; O2SAT 97
[2021-06-27] MEDS: Omeprazole 20 MG CAPSULE.DR PO (06:27)
[2021-06-27 06:56] LABS: Amitriptyline, Serum 9 mcg/L; Nortriptyline, Serum 16 mcg/L; Total (Ami+Nor) 25 mcg/L (100-250)
[2021-06-27] MEDS: LORazepam 0.5 MG TABLET PO ×2 (08:46→16:25)
[2021-06-27] MEDS: Venlafaxine HCl ER 37.5 MG CAP.ER.24H PO (08:46)
[2021-06-27] MEDS: Escitalopram Oxalate 5 MG TABLET PO (08:46)
[2021-06-27] MEDS: Milk of Magnesia 30 ML ORAL.SUSP PO (12:48)
[2021-06-27] MEDS: Mirabegron 50 MG TAB.ER.24H PO (16:25)
[2021-06-27 19:56] VITALS: BP 139/63; PULSE 87; RESP 18; TEMP 36.4; O2SAT 100
[2021-06-27] MEDS: Amitriptyline HCl 10 MG TABLET 20 MG PO (20:31)
[2021-06-27] MEDS: OLANZapine 5 MG TABLET PO (22:01)
[2021-06-27] MEDS: Zolpidem Tartrate 5 MG TABLET PO (22:01)
[2021-06-28 06:00] VITALS: BP 143/74; PULSE 78; RESP 16; TEMP 36.3; O2SAT 98
[2021-06-28] MEDS: Omeprazole 20 MG CAPSULE.DR PO (06:06)
[2021-06-28] MEDS: Escitalopram Oxalate 5 MG TABLET PO (08:25)
[2021-06-28] MEDS: Venlafaxine HCl ER 37.5 MG CAP.ER.24H PO (08:25)
[2021-06-28] MEDS: hydrOXYzine HCL 25 MG TABLET PO (16:26)
[2021-06-28] MEDS: Mirabegron 50 MG TAB.ER.24H PO (16:26)
--- NOTE | 2021-06-28 17:44 | HO.PSYCHPN ---
Subjective Subjective Date of Service: 06/28/21 Reason For Visit: depression Interim History: Patient seen and discussed with team. Patient evaluated this morning and upon interview he reports this past weekend winston been a little more anxious and that I think its the anxiety that's gone up more than the depression. Otherwise, denies withdrawal or discontinuation effects from lower effexor dose and would like to continue cross titration on lexapro. Says with anxiety, everything seems so enormous to me and weighty to me. He is sleeping just fine, says leah helps. He is eating okay, probably eating too much. In the milieu, patient is safe and appropriate in behavior. Denies SI/SIB/HI upon inquiry. Denies irritability or assaultive ideation. Says he feels safe. Medication Compliance: Yes Side effects from medications: No Attending Groups: Yes Review of Systems Acute medical concerns: No Medical Review of Systems: unchanged Mental Status Exam Mental Status Exam Narrative: Patient Appearance:?Well Grooomed Patient Orientation:?Person and Situation Level of Consciousness:?Awake Patient Behavior:?Cooperative Mood Description:?Constricted Affect Description:?Constricted Patient Cognition Impaired:?No Ability to Follow Directions:?Good Speech Pattern:?Clear Memory Description:?Intact Hallucinations:?None Delusions:?Not Present Thought Process:?Linear Thought Content:?positive for Circumstantial Judgement:?Fair Diagnostics Vital Signs (24Hr): Vital Signs - 24 hr 06/27/21 19:56 06/28/21 06:00 Temperature 97.6 F 97.4 F Pulse Rate 87 78 Respiratory Rate 18 16 Blood Pressure 139/63 143/74 H Pulse Oximetry 100 98 BMI result Body Mass Index 26.0 Labs Results: 06/23/21 08:32 06/21/21 19:54 Labs: Laboratory Results - last 48 hr 06/23/21 08:32 Amitriptyline 9 Amitriptyline&Nortrip 25 L Nortriptyline 16 Medications Medications Current Medications Acetaminophen (Acetaminophen 325 Mg Tablet) 650 mg PO Q6H PRN PRN Reason: Headache/Pain Mild Scale (1-3) Al Hydroxide/Mg Hydroxide (Magnesium Hydrox/Alum Hydrox 30 Ml Oral.Susp) 30 ml PO Q6H PRN PRN Reason: Heartburn/Nausea Amitriptyline HCl (Amitriptyline Hcl 10 Mg Tablet) 20 mg PO BEDTIME SAL Last Admin: 06/27/21 20:31 Dose: 20 mg Documented by: Benzocaine (Throat Lozenge, Medicated Lozenge) 1 lozenge MUCOUS MEM Q2H PRN PRN Reason: Sore Throat Last Admin: 06/24/21 18:37 Dose: 1 lozenge Documented by: Escitalopram Oxalate (Escitalopram Oxalate 5 Mg Tablet) 5 mg PO DAILY [facility] Last Admin: 06/28/21 08:25 Dose: 5 mg Documented by: Hydroxyzine HCl (Hydroxyzine Hcl 25 Mg Tablet) 25 mg PO BEDTIME PRN PRN Reason: Anxiety Last Admin: 06/28/21 16:26 Dose: 25 mg Documented by: Magnesium Hydroxide (Milk Of Magnesia 30 Ml Oral.Susp) 30 ml PO DAILY PRN PRN Reason: Constipation Last Admin: 06/27/21 12:48 Dose: 30 ml Documented by: Mirabegron (Mirabegron 50 Mg Tab.Er.24h) 50 mg PO DAILY@1700 [facility] Last Admin: 06/28/21 16:26 Dose: 50 mg Documented by: Olanzapine (Olanzapine 5 Mg Tablet) 5 mg PO BEDTIME [facility] Last Admin: 06/27/21 22:01 Dose: 5 mg Documented by: Omeprazole (Omeprazole 20 Mg Capsule.Dr) 20 mg PO DAILY@0630 [facility] Last Admin: 06/28/21 06:06 Dose: 20 mg Documented by: Trazodone HCl (Trazodone Hcl 50 Mg Tablet) 50 mg PO BEDTIME PRN PRN Reason: Insomnia Venlafaxine HCl (Venlafaxine Hcl Er 37.5 Mg Cap.Er.24h) 37.5 mg PO DAILY [facility] Last Admin: 06/28/21 08:25 Dose: 37.5 mg Documented by: Zolpidem Tartrate (Zolpidem Tartrate 5 Mg Tablet) 5 mg PO BEDTIME [facility] Last Admin: 06/27/21 22:01 Dose: 5 mg Documented by: Allergies Allergies Allergy/AdvReac Type Severity Reaction Status Date / Time ciprofloxacin [From CIPRO] Allergy Unknown DIARRHEA Verified 06/21/21 19:28 Assessment & Plan Assessment & Plan (1) Major depressive disorder: Status: Acute Code(s): F32.9 - Major depressive disorder, single episode, unspecified Plan Elderly transgender male with a long history of depression and anxiety admitted for exacerbation of and only a, lack of energy and suicidal thoughts in the context of losses. Plan 1. Follow blood work, amitriptyline level. 2. Lower Effexor up to 37.5 for the weekend 3. Keep Lexapro 5 mg p.o. q.h.s.. 4. Gather collateral information 06/26: Ct Rx plan . Elavil level pending 06/27: Ct Rx plan. ? explore TMS 06/28: discontinue effexor 37.5 mg and increase lexapro to 10 mg to target sx of anxiety. I spent minutes with the patient and/or on the patient floor today, greater than?50% of which was spent counseling/coordinating care. Reason for contiued inpatient stay Substantial Risk for: rapid decompensation and med/psych decompensation
[2021-06-28 18:00] VITALS: BP 145/72; PULSE 84; RESP 18; TEMP 36.6; O2SAT 99
[2021-06-28] MEDS: Amitriptyline HCl 10 MG TABLET 20 MG PO (20:55)
[2021-06-28] MEDS: OLANZapine 5 MG TABLET PO (21:46)
[2021-06-28] MEDS: Zolpidem Tartrate 5 MG TABLET PO (21:46)
[2021-06-29] MEDS: traZODone HCL 50 MG TABLET PO ×2 (01:59→03:47)
[2021-06-29] MEDS: Omeprazole 20 MG CAPSULE.DR PO (06:31)
[2021-06-29 07:35] VITALS: BP 134/77; PULSE 95; RESP 16; TEMP 36.5; O2SAT 97
[2021-06-29] MEDS: Escitalopram Oxalate 10 MG TABLET PO (08:29)
--- NOTE | 2021-06-29 16:52 | P.PNPSI_ITS ---
Subjective Subjective Date of Service: 06/29/21 Reason For Visit: depression Subjective Notes: Conditional Voluntary Interim History: The nursing staff reported the patient sleeps poorly. According to his report, he usually takes Ambien 10 mg at bedtime and 5 mg does not work at all. On interview, he reports that he is more dysphoric with negative thoughts. He also complained of anxiety. We discussed risks benefits side-effects and alternatives and he agreed to add lorazepam p.r.n., increase tree cyclic antidepressants at night since his level is very low. We will add a p.r.n. Ambien 5 mg at night after the regular standing Mental Status Exam Mental Status Exam Patient Appearance: Well Grooomed Patient Orientation: Person and Situation Level of Consciousness: Awake Patient Behavior: Cooperative Mood Description: Depressed Affect Description: Constricted Patient Cognition Impaired: No Ability to Follow Directions: Good Speech Pattern: Appropriate Memory Description: Intact Hallucinations: None Delusions: Not Present Thought Process: Linear Thought Content: positive for Circumstantial Depressive Symptoms: Increased Anxiety Judgement: Fair Diagnostics Vital Signs (24Hr): Vital Signs - 24 hr 06/28/21 18:00 06/29/21 07:35 Temperature 97.9 F 97.7 F Pulse Rate 84 95 Respiratory Rate 18 16 Blood Pressure 145/72 H 134/77 Pulse Oximetry 99 97 BMI result Body Mass Index 26.0 Labs Results: 06/23/21 08:32 06/21/21 19:54 Medications Medications Current Medications Acetaminophen (Acetaminophen 325 Mg Tablet) 650 mg PO Q6H PRN PRN Reason: Headache/Pain Mild Scale (1-3) Al Hydroxide/Mg Hydroxide (Magnesium Hydrox/Alum Hydrox 30 Ml Oral.Susp) 30 ml PO Q6H PRN PRN Reason: Heartburn/Nausea Amitriptyline HCl (Amitriptyline Hcl 50 Mg Tablet) 50 mg PO BEDTIME SAL Benzocaine (Throat Lozenge, Medicated Lozenge) 1 lozenge MUCOUS MEM Q2H PRN PRN Reason: Sore Throat Last Admin: 06/24/21 18:37 Dose: 1 lozenge Documented by: Escitalopram Oxalate (Escitalopram Oxalate 10 Mg Tablet) 10 mg PO DAILY [facility] Last Admin: 06/29/21 08:29 Dose: 10 mg Documented by: Hydroxyzine HCl (Hydroxyzine Hcl 25 Mg Tablet) 25 mg PO BEDTIME PRN PRN Reason: Anxiety Last Admin: 06/28/21 16:26 Dose: 25 mg Documented by: Lorazepam (Lorazepam 0.5 Mg Tablet) 0.5 mg PO Q8H PRN PRN Reason: Anxiety Magnesium Hydroxide (Milk Of Magnesia 30 Ml Oral.Susp) 30 ml PO DAILY PRN PRN Reason: Constipation Last Admin: 06/27/21 12:48 Dose: 30 ml Documented by: Mirabegron (Mirabegron 50 Mg Tab.Er.24h) 50 mg PO DAILY@1700 [facility] Last Admin: 06/28/21 16:26 Dose: 50 mg Documented by: Olanzapine (Olanzapine 5 Mg Tablet) 5 mg PO BEDTIME [facility] Last Admin: 06/28/21 21:46 Dose: 5 mg Documented by: Omeprazole (Omeprazole 20 Mg Capsule.Dr) 20 mg PO DAILY@0630 [facility] Last Admin: 06/29/21 06:31 Dose: 20 mg Documented by: Trazodone HCl (Trazodone Hcl 50 Mg Tablet) 50 mg PO BEDTIME PRN PRN Reason: Insomnia Last Admin: 06/29/21 03:47 Dose: 50 mg Documented by: Zolpidem Tartrate (Zolpidem Tartrate 5 Mg Tablet) 5 mg PO BEDTIME [facility] Last Admin: 06/28/21 21:46 Dose: 5 mg Documented by: Allergies Allergies Allergy/AdvReac Type Severity Reaction Status Date / Time ciprofloxacin [From CIPRO] Allergy Unknown DIARRHEA Verified 06/21/21 19:28 Assessment & Plan Assessment & Plan (1) Major depressive disorder: Status: Acute Code(s): F32.9 - Major depressive disorder, single episode, unspecified Plan Elderly transgender male with a long history of depression and anxiety admitted for exacerbation of and only a, lack of energy and suicidal thoughts in the context of losses. Plan Keep Lexapro and other medications. At Ativan p.r.n.. Increase tricyclic antidepressants at night I spent minutes with the patient and/or on the patient floor today, greater than?50% of which was spent counseling/coordinating care. Reason for contiued inpatient stay Substantial Risk for: inability to function, rapid decompensation and med/psych decompensation
[2021-06-29] MEDS: Mirabegron 50 MG TAB.ER.24H PO (17:04)
[2021-06-29 21:00] VITALS: BP 126/80; PULSE 108; RESP 17; TEMP 36; O2SAT 95
[2021-06-29] MEDS: Zolpidem Tartrate 5 MG TABLET PO ×2 (21:01→21:32)
[2021-06-29] MEDS: Amitriptyline HCl 50 MG TABLET PO (21:01)
[2021-06-29] MEDS: OLANZapine 5 MG TABLET PO (21:01)
[2021-06-30] MEDS: Omeprazole 20 MG CAPSULE.DR PO (06:52)
[2021-06-30 07:45] VITALS: BP 129/94; PULSE 118; RESP 20; TEMP 36.3; O2SAT 95
[2021-06-30] MEDS: Escitalopram Oxalate 10 MG TABLET PO (08:56)
[2021-06-30] MEDS: Mirabegron 50 MG TAB.ER.24H PO (16:58)
--- NOTE | 2021-06-30 17:02 | HO.PSYCHPN ---
Subjective Subjective Date of Service: 06/30/21 Reason For Visit: depression Subjective Notes: Conditional Voluntary Interim History: The nursing staff reported the patient had poor sleep but last night he took Ambien 5 mg x 2. He denies active suicidal ideation. Today he was assessed with the social media analyst and we explained about discharge planning. He is aware that her amitriptyline was increased up to 50 mg p.o. q.h.s. to target dysphoria and poor sleep, he reported that he is sleeping improved with the increased of Ambien, he does not have active suicidal thoughts or intrusive thoughts that he started feeling much better. We discussed the possibility of PHP referral or respite and we will thinking of a tentative discharge date 40s Monday. The patient feels and easy for the possibility of discharge but he understands that we need to start working on discharge planning. So far we have been successful on cross taper from Effexor to Lexapro and increased amitriptyline Mental Status Exam Mental Status Exam Patient Appearance: Well Grooomed Patient Orientation: Person and Situation Level of Consciousness: Awake Patient Behavior: Appropriate Mood Description: Depressed Affect Description: Constricted Patient Cognition Impaired: No Ability to Follow Directions: Good Speech Pattern: Clear Memory Description: Intact Hallucinations: None Delusions: Not Present Thought Process: Linear Thought Content: positive for Circumstantial Judgement: Fair Diagnostics Vital Signs (24Hr): Vital Signs - 24 hr 06/29/21 21:00 06/30/21 07:45 Temperature 96.8 F 97.4 F Pulse Rate 108 H 118 H Respiratory Rate 17 20 Blood Pressure 126/80 129/94 H Pulse Oximetry 95 95 BMI result Body Mass Index 26.0 Labs Results: 06/23/21 08:32 06/21/21 19:54 Medications Medications Current Medications Acetaminophen (Acetaminophen 325 Mg Tablet) 650 mg PO Q6H PRN PRN Reason: Headache/Pain Mild Scale (1-3) Al Hydroxide/Mg Hydroxide (Magnesium Hydrox/Alum Hydrox 30 Ml Oral.Susp) 30 ml PO Q6H PRN PRN Reason: Heartburn/Nausea Amitriptyline HCl (Amitriptyline Hcl 50 Mg Tablet) 50 mg PO BEDTIME SAL Last Admin: 06/29/21 21:01 Dose: 50 mg Documented by: Benzocaine (Throat Lozenge, Medicated Lozenge) 1 lozenge MUCOUS MEM Q2H PRN PRN Reason: Sore Throat Last Admin: 06/24/21 18:37 Dose: 1 lozenge Documented by: Escitalopram Oxalate (Escitalopram Oxalate 10 Mg Tablet) 10 mg PO DAILY [facility] Last Admin: 06/30/21 08:56 Dose: 10 mg Documented by: Hydroxyzine HCl (Hydroxyzine Hcl 25 Mg Tablet) 25 mg PO BEDTIME PRN PRN Reason: Anxiety Last Admin: 06/28/21 16:26 Dose: 25 mg Documented by: Lorazepam (Lorazepam 0.5 Mg Tablet) 0.5 mg PO Q8H PRN PRN Reason: Anxiety Magnesium Hydroxide (Milk Of Magnesia 30 Ml Oral.Susp) 30 ml PO DAILY PRN PRN Reason: Constipation Last Admin: 06/27/21 12:48 Dose: 30 ml Documented by: Mirabegron (Mirabegron 50 Mg Tab.Er.24h) 50 mg PO DAILY@1700 [facility] Last Admin: 06/30/21 16:58 Dose: 50 mg Documented by: Olanzapine (Olanzapine 5 Mg Tablet) 5 mg PO BEDTIME [facility] Last Admin: 06/29/21 21:01 Dose: 5 mg Documented by: Omeprazole (Omeprazole 20 Mg Capsule.Dr) 20 mg PO DAILY@0630 [facility] Last Admin: 06/30/21 06:52 Dose: 20 mg Documented by: Trazodone HCl (Trazodone Hcl 50 Mg Tablet) 50 mg PO BEDTIME PRN PRN Reason: Insomnia Last Admin: 06/29/21 03:47 Dose: 50 mg Documented by: Zolpidem Tartrate (Zolpidem Tartrate 5 Mg Tablet) 5 mg PO BEDTIME [facility] Last Admin: 06/29/21 21:01 Dose: 5 mg Documented by: Zolpidem Tartrate (Zolpidem Tartrate 5 Mg Tablet) 5 mg PO BEDTIME [facility] Last Admin: 06/29/21 21:32 Dose: 5 mg Documented by: Allergies Allergies Allergy/AdvReac Type Severity Reaction Status Date / Time ciprofloxacin [From CIPRO] Allergy Unknown DIARRHEA Verified 06/21/21 19:28 Assessment & Plan Assessment & Plan (1) Major depressive disorder: Status: Acute Code(s): F32.9 - Major depressive disorder, single episode, unspecified Plan Elderly transgender male with a long history of depression and anxiety admitted for exacerbation of and only a, lack of energy and suicidal thoughts in the context of losses. Plan Keep Lexapro and other medications. At Ativan p.r.n.. Increase tricyclic antidepressants at night I spent minutes with the patient and/or on the patient floor today, greater than?50% of which was spent counseling/coordinating care. Reason for contiued inpatient stay Substantial Risk for: inability to function, rapid decompensation and med/psych decompensation
[2021-06-30] MEDS: hydrOXYzine HCL 25 MG TABLET PO (20:03)
[2021-06-30 20:31] VITALS: BP 137/63; PULSE 85; RESP 18; TEMP 36.4; O2SAT 96
[2021-06-30] MEDS: OLANZapine 5 MG TABLET PO (21:13)
[2021-06-30] MEDS: Zolpidem Tartrate 5 MG TABLET PO ×2 (21:13→21:42)
[2021-06-30] MEDS: Amitriptyline HCl 50 MG TABLET PO (21:13)
--- NOTE | 2021-07-01 03:53 | PC.NURSE ---
Pt. took ambien 5mg at 2112 and a second dose at 2141. When second dose was scanned it was under the first scheduled dose. RN undid this entry. The patient received two doses 29 minutes apart.
[2021-07-01 06:00] VITALS: BP 146/65; PULSE 112; RESP 16; TEMP 36.7; O2SAT 96
[2021-07-01] MEDS: Omeprazole 20 MG CAPSULE.DR PO (06:27)
[2021-07-01 07:00] VITALS: BMI 25.9
[2021-07-01] MEDS: Escitalopram Oxalate 10 MG TABLET PO (08:26)
[2021-07-01] MEDS: LORazepam 0.5 MG TABLET PO ×2 (11:49→19:49)
--- NOTE | 2021-07-01 15:33 | P.PNPSI_ITS ---
Subjective Subjective Date of Service: 07/01/21 Reason For Visit: depression Subjective Notes: Conditional Voluntary Interim History: The nursing staff reported the patient has been compliant with treatment. The social work case manager interacted with the patient regarding the safety plan for more than 45 minutes. We offer him PHP and respite but he refused a respite plan. Today on interview, the patient was extremely anxious scared about discharge eye making very aware that he cannot live here and eventually he needs to go back to the community. The staff has reported that he is very attention seeking and he wants individual counseling while he was here. No safety concerns at this moment, the staff reported that the earliest PHP opening will be on July 07 so probably will keep him over the weekend Mental Status Exam Mental Status Exam Patient Appearance: Well Grooomed Patient Orientation: Person and Situation Level of Consciousness: Awake Patient Behavior: Cooperative Mood Description: Constricted Affect Description: Constricted Patient Cognition Impaired: No Ability to Follow Directions: Good Speech Pattern: Clear Memory Description: Intact Hallucinations: None Delusions: Not Present Thought Process: Linear Thought Content: positive for Circumstantial Judgement: Fair Diagnostics Vital Signs (24Hr): Vital Signs - 24 hr 06/30/21 20:31 07/01/21 06:00 Temperature 97.6 F 98.0 F Pulse Rate 85 112 H Respiratory Rate 18 16 Blood Pressure 137/63 146/65 H Pulse Oximetry 96 96 BMI result Body Mass Index 26.0 Labs Results: 06/23/21 08:32 06/21/21 19:54 Medications Medications Current Medications Acetaminophen (Acetaminophen 325 Mg Tablet) 650 mg PO Q6H PRN PRN Reason: Headache/Pain Mild Scale (1-3) Al Hydroxide/Mg Hydroxide (Magnesium Hydrox/Alum Hydrox 30 Ml Oral.Susp) 30 ml PO Q6H PRN PRN Reason: Heartburn/Nausea Amitriptyline HCl (Amitriptyline Hcl 50 Mg Tablet) 50 mg PO BEDTIME SAL Last Admin: 06/30/21 21:13 Dose: 50 mg Documented by: Benzocaine (Throat Lozenge, Medicated Lozenge) 1 lozenge MUCOUS MEM Q2H PRN PRN Reason: Sore Throat Last Admin: 06/24/21 18:37 Dose: 1 lozenge Documented by: Escitalopram Oxalate (Escitalopram Oxalate 10 Mg Tablet) 10 mg PO DAILY [facility] Last Admin: 07/01/21 08:26 Dose: 10 mg Documented by: Hydroxyzine HCl (Hydroxyzine Hcl 25 Mg Tablet) 25 mg PO BEDTIME PRN PRN Reason: Anxiety Last Admin: 06/30/21 20:03 Dose: 25 mg Documented by: Lorazepam (Lorazepam 0.5 Mg Tablet) 0.5 mg PO Q8H PRN PRN Reason: Anxiety Last Admin: 07/01/21 11:49 Dose: 0.5 mg Documented by: Magnesium Hydroxide (Milk Of Magnesia 30 Ml Oral.Susp) 30 ml PO DAILY PRN PRN Reason: Constipation Last Admin: 06/27/21 12:48 Dose: 30 ml Documented by: Mirabegron (Mirabegron 50 Mg Tab.Er.24h) 50 mg PO DAILY@1700 [facility] Last Admin: 06/30/21 16:58 Dose: 50 mg Documented by: Olanzapine (Olanzapine 5 Mg Tablet) 5 mg PO BEDTIME [facility] Last Admin: 06/30/21 21:13 Dose: 5 mg Documented by: Omeprazole (Omeprazole 20 Mg Capsule.Dr) 20 mg PO DAILY@0630 [facility] Last Admin: 07/01/21 06:27 Dose: 20 mg Documented by: Trazodone HCl (Trazodone Hcl 50 Mg Tablet) 50 mg PO BEDTIME PRN PRN Reason: Insomnia Last Admin: 06/29/21 03:47 Dose: 50 mg Documented by: Zolpidem Tartrate (Zolpidem Tartrate 5 Mg Tablet) 5 mg PO BEDTIME [facility] Last Admin: 06/30/21 21:13 Dose: 5 mg Documented by: Zolpidem Tartrate (Zolpidem Tartrate 5 Mg Tablet) 5 mg PO BEDTIME [facility] Last Admin: 06/30/21 21:42 Dose: 5 mg Documented by: Allergies Allergies Allergy/AdvReac Type Severity Reaction Status Date / Time ciprofloxacin [From CIPRO] Allergy Unknown DIARRHEA Verified 06/21/21 19:28 Assessment & Plan Assessment & Plan (1) Major depressive disorder: Status: Acute Code(s): F32.9 - Major depressive disorder, single episode, unspecified Plan Elderly transgender male with a long history of depression and anxiety admitted for exacerbation of and only a, lack of energy and suicidal thoughts in the context of losses. Plan Keep Lexapro and other medications. At Ativan p.r.n.. Increase tricyclic antidepressants at night I spent minutes with the patient and/or on the patient floor today, greater than?50% of which was spent counseling/coordinating care. Reason for contiued inpatient stay Substantial Risk for: inability to function, rapid decompensation and med/psych decompensation
[2021-07-01] MEDS: Mirabegron 50 MG TAB.ER.24H PO (18:01)
[2021-07-01 20:24] VITALS: BP 140/78; PULSE 80; RESP 17; TEMP 36.6; O2SAT 100
[2021-07-01] MEDS: Zolpidem Tartrate 5 MG TABLET PO ×2 (21:01→21:30)
[2021-07-01] MEDS: OLANZapine 5 MG TABLET PO (21:01)
[2021-07-01] MEDS: Amitriptyline HCl 50 MG TABLET PO (21:02)
[2021-07-02 06:00] VITALS: BP 130/81; PULSE 112; TEMP 36.4; O2SAT 99
[2021-07-02] MEDS: Omeprazole 20 MG CAPSULE.DR PO (06:28)
[2021-07-02] MEDS: Escitalopram Oxalate 10 MG TABLET PO (09:51)
[2021-07-02] MEDS: LORazepam 0.5 MG TABLET PO (13:01)
--- NOTE | 2021-07-02 14:17 | HO.PSYCHPN ---
Subjective Subjective Date of Service: 07/02/21 Reason For Visit: depression Subjective Notes: Conditional Voluntary Interim History: The nursing staff reported the patient has been very anxious since yesterday due to the possibility of discharge. On interview, the patient reports anxiety he agreed to increase Lexapro to 15 mg p.o. daily starting tomorrow and reassess after the weekend. No active suicidal ideation at this moment. Mental Status Exam Mental Status Exam Patient Appearance: Well Grooomed and Appropriate Patient Orientation: Person, Place and Situation Level of Consciousness: Awake and Alert Patient Behavior: Guarded and Cooperative Mood Description: Depressed Affect Description: Constricted Patient Cognition Impaired: No Ability to Follow Directions: Good Speech Pattern: Clear Hallucinations: None Delusions: Not Present Thought Process: Linear Thought Content: positive for Circumstantial Depressive Symptoms: Diff. Making Decisions, Changes in Appetite, Feelings of Worthlessness and Feelings of Guilt Judgement: Fair Diagnostics Vital Signs (24Hr): Vital Signs - 24 hr 07/01/21 20:24 07/02/21 06:00 Temperature 97.8 F 97.5 F Pulse Rate 80 112 H Respiratory Rate 17 Blood Pressure 140/78 H 130/81 Pulse Oximetry 100 99 BMI result Body Mass Index 25.9 Labs Results: 06/23/21 08:32 06/21/21 19:54 Medications Medications Current Medications Acetaminophen (Acetaminophen 325 Mg Tablet) 650 mg PO Q6H PRN PRN Reason: Headache/Pain Mild Scale (1-3) Al Hydroxide/Mg Hydroxide (Magnesium Hydrox/Alum Hydrox 30 Ml Oral.Susp) 30 ml PO Q6H PRN PRN Reason: Heartburn/Nausea Amitriptyline HCl (Amitriptyline Hcl 50 Mg Tablet) 50 mg PO BEDTIME [facility] Last Admin: 07/01/21 21:02 Dose: 50 mg Documented by: Benzocaine (Throat Lozenge, Medicated Lozenge) 1 lozenge MUCOUS MEM Q2H PRN PRN Reason: Sore Throat Last Admin: 06/24/21 18:37 Dose: 1 lozenge Documented by: Escitalopram Oxalate (Escitalopram Oxalate 10 Mg Tablet) 10 mg PO DAILY [facility] Last Admin: 07/02/21 09:51 Dose: 10 mg Documented by: Hydroxyzine HCl (Hydroxyzine Hcl 25 Mg Tablet) 25 mg PO BEDTIME PRN PRN Reason: Anxiety Last Admin: 06/30/21 20:03 Dose: 25 mg Documented by: Lorazepam (Lorazepam 0.5 Mg Tablet) 0.5 mg PO Q8H PRN PRN Reason: Anxiety Last Admin: 07/02/21 13:01 Dose: 0.5 mg Documented by: Magnesium Hydroxide (Milk Of Magnesia 30 Ml Oral.Susp) 30 ml PO DAILY PRN PRN Reason: Constipation Last Admin: 06/27/21 12:48 Dose: 30 ml Documented by: Mirabegron (Mirabegron 50 Mg Tab.Er.24h) 50 mg PO DAILY@1700 [facility] Last Admin: 07/01/21 18:01 Dose: 50 mg Documented by: Olanzapine (Olanzapine 5 Mg Tablet) 5 mg PO BEDTIME [facility] Last Admin: 07/01/21 21:01 Dose: 5 mg Documented by: Omeprazole (Omeprazole 20 Mg Capsule.Dr) 20 mg PO DAILY@0630 [facility] Last Admin: 07/02/21 06:28 Dose: 20 mg Documented by: Trazodone HCl (Trazodone Hcl 50 Mg Tablet) 50 mg PO BEDTIME PRN PRN Reason: Insomnia Last Admin: 06/29/21 03:47 Dose: 50 mg Documented by: Zolpidem Tartrate (Zolpidem Tartrate 5 Mg Tablet) 5 mg PO BEDTIME [facility] Last Admin: 07/01/21 21:30 Dose: 5 mg Documented by: Allergies Allergies Allergy/AdvReac Type Severity Reaction Status Date / Time ciprofloxacin [From CIPRO] Allergy Unknown DIARRHEA Verified 06/21/21 19:28 Assessment & Plan Assessment & Plan (1) Major depressive disorder: Status: Acute Code(s): F32.9 - Major depressive disorder, single episode, unspecified Plan Elderly transgender male with a long history of depression and anxiety admitted for exacerbation of and only a, lack of energy and suicidal thoughts in the context of losses. Plan 1. Follow blood work, amitriptyline level. 2. Lower Effexor up to 37.5 for the weekend 3. Increase Lexapro up to 15 mg p.o. q.h.s.. 4. Gather collateral information 06/26: Ct Rx plan . Elavil level pending 06/27: Ct Rx plan. ? explore TMS 06/28: discontinue effexor 37.5 mg and increase lexapro to 10 mg to target sx of anxiety. I spent minutes with the patient and/or on the patient floor today, greater than?50% of which was spent counseling/coordinating care. Reason for contiued inpatient stay Substantial Risk for: inability to function, rapid decompensation and med/psych decompensation
[2021-07-02] MEDS: Mirabegron 50 MG TAB.ER.24H PO (16:06)
[2021-07-02] MEDS: Throat Lozenge, Medicated LOZENGE 1 LOZENGE MUCOUS MEM (16:06)
[2021-07-02 18:00] VITALS: BP 132/72; PULSE 84; RESP 18; TEMP 36.4; O2SAT 99
[2021-07-02] MEDS: OLANZapine 5 MG TABLET PO (20:53)
[2021-07-02] MEDS: Zolpidem Tartrate 5 MG TABLET PO ×2 (20:53→21:30)
[2021-07-02] MEDS: Amitriptyline HCl 50 MG TABLET PO (20:53)
[2021-07-03] MEDS: Omeprazole 20 MG CAPSULE.DR PO (05:43)
[2021-07-03] MEDS: Escitalopram Oxalate 5 MG TABLET 15 MG PO (08:22)
[2021-07-03 09:12] VITALS: BP 112/75; PULSE 110; RESP 16; TEMP 36.3; O2SAT 97
[2021-07-03] MEDS: busPIRone HCl 5 MG TABLET PO ×2 (13:13→20:48)
--- NOTE | 2021-07-03 15:19 | P.PNPSI_ITS ---
Subjective Subjective Date of Service: 07/03/21 Reason For Visit: depression Interim History: Patient seen. DW team. Patient reports he is anxious about leaving home. He reports he is a little better than when he came in. He says he feels lonely and worried about being alone in my house. He says his support is his therapist and [employer]. He has VNA services. Does AA meetings. Denies SI. He agreed to a trial of augmentation with Buspar. Medication Compliance: Yes Review of Systems Review of Systems Yes all other systems are reviewed and are negative Mental Status Exam Mental Status Exam Narrative: Patient Appearance:?Well Grooomed Patient Orientation:?Person and Situation Level of Consciousness:?Awake Patient Behavior:?Cooperative Mood Description:?Constricted Affect Description:?Constricted Patient Cognition Impaired:?No Ability to Follow Directions:?Good Speech Pattern:?Clear Memory Description:?Intact Hallucinations:?None Delusions:?Not Present Thought Process:?Linear Thought Content:?positive for Circumstantial Judgement:?Fair Patient Appearance: Well Grooomed and Appropriate Patient Orientation: Person, Place and Situation Level of Consciousness: Awake and Alert Patient Behavior: Guarded and Cooperative Mood Description: Depressed Affect Description: Constricted Patient Cognition Impaired: No Ability to Follow Directions: Good Speech Pattern: Clear Memory Description: Intact Thought Content: positive for Circumstantial and positive for Linear Depressive Symptoms: Increased Anxiety Diagnostics Vital Signs (24Hr): Vital Signs - 24 hr 07/03/21 09:12 Temperature 97.3 F Pulse Rate 110 H Respiratory Rate 16 Blood Pressure 112/75 Pulse Oximetry 97 BMI result Body Mass Index 25.9 Labs Results: 06/23/21 08:32 06/21/21 19:54 Medications Medications Current Medications Acetaminophen (Acetaminophen 325 Mg Tablet) 650 mg PO Q6H PRN PRN Reason: Headache/Pain Mild Scale (1-3) Al Hydroxide/Mg Hydroxide (Magnesium Hydrox/Alum Hydrox 30 Ml Oral.Susp) 30 ml PO Q6H PRN PRN Reason: Heartburn/Nausea Amitriptyline HCl (Amitriptyline Hcl 50 Mg Tablet) 50 mg PO BEDTIME [facility] Last Admin: 07/02/21 20:53 Dose: 50 mg Documented by: Benzocaine (Throat Lozenge, Medicated Lozenge) 1 lozenge MUCOUS MEM Q2H PRN PRN Reason: Sore Throat Last Admin: 07/02/21 16:06 Dose: 1 lozenge Documented by: Buspirone HCl (Buspirone Hcl 5 Mg Tablet) 5 mg PO BID [facility] Last Admin: 07/03/21 13:13 Dose: 5 mg Documented by: Escitalopram Oxalate (Escitalopram Oxalate 5 Mg Tablet) 15 mg PO DAILY [facility] Last Admin: 07/03/21 08:22 Dose: 15 mg Documented by: Hydroxyzine HCl (Hydroxyzine Hcl 25 Mg Tablet) 25 mg PO BEDTIME PRN PRN Reason: Anxiety Last Admin: 06/30/21 20:03 Dose: 25 mg Documented by: Lorazepam (Lorazepam 0.5 Mg Tablet) 0.5 mg PO Q8H PRN PRN Reason: Anxiety Last Admin: 07/03/21 17:10 Dose: 0.5 mg Documented by: Magnesium Hydroxide (Milk Of Magnesia 30 Ml Oral.Susp) 30 ml PO DAILY PRN PRN Reason: Constipation Last Admin: 06/27/21 12:48 Dose: 30 ml Documented by: Mirabegron (Mirabegron 50 Mg Tab.Er.24h) 50 mg PO DAILY@1700 [facility] Last Admin: 07/03/21 17:10 Dose: 50 mg Documented by: Olanzapine (Olanzapine 5 Mg Tablet) 5 mg PO BEDTIME [facility] Last Admin: 07/02/21 20:53 Dose: 5 mg Documented by: Omeprazole (Omeprazole 20 Mg Capsule.Dr) 20 mg PO DAILY@0630 [facility] Last Admin: 07/03/21 05:43 Dose: 20 mg Documented by: Trazodone HCl (Trazodone Hcl 50 Mg Tablet) 50 mg PO BEDTIME PRN PRN Reason: Insomnia Last Admin: 06/29/21 03:47 Dose: 50 mg Documented by: Zolpidem Tartrate (Zolpidem Tartrate 5 Mg Tablet) 5 mg PO BEDTIME [facility] Last Admin: 07/02/21 21:30 Dose: 5 mg Documented by: Allergies Allergies Allergy/AdvReac Type Severity Reaction Status Date / Time ciprofloxacin [From CIPRO] Allergy Unknown DIARRHEA Verified 06/21/21 19:28 Assessment & Plan Assessment & Plan (1) Major depressive disorder: Status: Acute Code(s): F32.9 - Major depressive disorder, single episode, unspecified Plan Elderly transgender male with a long history of depression and anxiety admitted for exacerbation of and only a, lack of energy and suicidal thoughts in the context of losses. Plan Follow blood work, amitriptyline level. Lexapro up to 15 mg p.o. q.h.s.. Gather collateral information 06/26: Ct Rx plan . Elavil level pending 06/27: Ct Rx plan. ? explore TMS 06/28: discontinue effexor 37.5 mg and increase lexapro to 10 mg to target sx of anxiety. 07/03/21: Start Buspar 5 mg BID for anxiety and augmenting Lexapri I spent minutes with the patient and/or on the patient floor today, greater than?50% of which was spent counseling/coordinating care. Patient educated on: diagnosis and medication risk/benefits Reason for contiued inpatient stay Substantial Risk for: harm to self
[2021-07-03] MEDS: Mirabegron 50 MG TAB.ER.24H PO (17:10)
[2021-07-03] MEDS: LORazepam 0.5 MG TABLET PO (17:10)
[2021-07-03 18:00] VITALS: BP 129/77; PULSE 70; RESP 18; TEMP 35.9; O2SAT 99
[2021-07-03] MEDS: Amitriptyline HCl 50 MG TABLET PO (20:48)
[2021-07-03] MEDS: OLANZapine 5 MG TABLET PO (20:48)
[2021-07-03] MEDS: Zolpidem Tartrate 5 MG TABLET PO ×2 (20:48→21:47)
[2021-07-04] MEDS: Omeprazole 20 MG CAPSULE.DR PO (05:29)
[2021-07-04 06:00] VITALS: BP 131/67; PULSE 102; RESP 14; TEMP 36.7; O2SAT 14
[2021-07-04] MEDS: busPIRone HCl 5 MG TABLET PO (08:52)
[2021-07-04] MEDS: Escitalopram Oxalate 5 MG TABLET 15 MG PO (08:53)
[2021-07-04] MEDS: LORazepam 0.5 MG TABLET PO (11:13)
[2021-07-04] MEDS: Mirabegron 50 MG TAB.ER.24H PO (17:03)
--- NOTE | 2021-07-04 17:43 | P.PNPSI_ITS ---
Subjective Subjective Date of Service: 07/04/21 Reason For Visit: depression Interim History: Patient seen. DW team. He continues to be anxious. Says he had an intrusive thought that scared me where he saw himself 'chopping his head off. It was like in a cartoon and lasted a few seconds. He told staff. He was asked to join the milieu and distract self which helped. He adamantly denies SI or intent to harm self. Tolerated low dose Buspar. Review of Systems Review of Systems Yes all other systems are reviewed and are negative Mental Status Exam Mental Status Exam Narrative: Patient Appearance:?Well Grooomed Patient Orientation:?Person and Situation Level of Consciousness:?Awake Patient Behavior:?Cooperative Mood Description:?Constricted Affect Description:?Constricted Patient Cognition Impaired:?No Ability to Follow Directions:?Good Speech Pattern:?Clear Memory Description:?Intact Hallucinations:?None Delusions:?Not Present Thought Process:?Linear Thought Content:?positive for Circumstantial Judgement:?Fair Patient Appearance: Well Grooomed and Appropriate Patient Orientation: Person, Place and Situation Level of Consciousness: Awake and Alert Patient Behavior: Guarded and Cooperative Mood Description: Depressed Affect Description: Constricted Patient Cognition Impaired: No Ability to Follow Directions: Good Speech Pattern: Clear Memory Description: Intact Diagnostics Vital Signs (24Hr): Vital Signs - 24 hr 07/03/21 18:00 07/04/21 06:00 Temperature 96.6 F L 98.1 F Pulse Rate 70 102 H Respiratory Rate 18 14 Blood Pressure 129/77 131/67 Pulse Oximetry 99 14 L BMI result Body Mass Index 25.9 Labs Results: 06/23/21 08:32 06/21/21 19:54 Medications Medications Current Medications Acetaminophen (Acetaminophen 325 Mg Tablet) 650 mg PO Q6H PRN PRN Reason: Headache/Pain Mild Scale (1-3) Al Hydroxide/Mg Hydroxide (Magnesium Hydrox/Alum Hydrox 30 Ml Oral.Susp) 30 ml PO Q6H PRN PRN Reason: Heartburn/Nausea Amitriptyline HCl (Amitriptyline Hcl 50 Mg Tablet) 50 mg PO BEDTIME [facility] Last Admin: 07/03/21 20:48 Dose: 50 mg Documented by: Benzocaine (Throat Lozenge, Medicated Lozenge) 1 lozenge MUCOUS MEM Q2H PRN PRN Reason: Sore Throat Last Admin: 07/02/21 16:06 Dose: 1 lozenge Documented by: Buspirone HCl (Buspirone Hcl 5 Mg Tablet) 5 mg PO BID [facility] Last Admin: 07/04/21 08:52 Dose: 5 mg Documented by: Escitalopram Oxalate (Escitalopram Oxalate 5 Mg Tablet) 15 mg PO DAILY [facility] Last Admin: 07/04/21 08:53 Dose: 15 mg Documented by: Hydroxyzine HCl (Hydroxyzine Hcl 25 Mg Tablet) 25 mg PO BEDTIME PRN PRN Reason: Anxiety Last Admin: 06/30/21 20:03 Dose: 25 mg Documented by: Magnesium Hydroxide (Milk Of Magnesia 30 Ml Oral.Susp) 30 ml PO DAILY PRN PRN Reason: Constipation Last Admin: 06/27/21 12:48 Dose: 30 ml Documented by: Mirabegron (Mirabegron 50 Mg Tab.Er.24h) 50 mg PO DAILY@1700 [facility] Last Admin: 07/04/21 17:03 Dose: 50 mg Documented by: Olanzapine (Olanzapine 5 Mg Tablet) 5 mg PO BEDTIME [facility] Last Admin: 07/03/21 20:48 Dose: 5 mg Documented by: Omeprazole (Omeprazole 20 Mg Capsule.Dr) 20 mg PO DAILY@0630 [facility] Last Admin: 07/04/21 05:29 Dose: 20 mg Documented by: Trazodone HCl (Trazodone Hcl 50 Mg Tablet) 50 mg PO BEDTIME PRN PRN Reason: Insomnia Last Admin: 06/29/21 03:47 Dose: 50 mg Documented by: Zolpidem Tartrate (Zolpidem Tartrate 5 Mg Tablet) 5 mg PO BEDTIME [facility] Last Admin: 07/03/21 21:47 Dose: 5 mg Documented by: Allergies Allergies Allergy/AdvReac Type Severity Reaction Status Date / Time ciprofloxacin [From CIPRO] Allergy Unknown DIARRHEA Verified 06/21/21 19:28 Assessment & Plan Assessment & Plan (1) Major depressive disorder: Status: Acute Code(s): F32.9 - Major depressive disorder, single episode, unspecified Plan Elderly transgender male with a long history of depression and anxiety admitted for exacerbation of and only a, lack of energy and suicidal thoughts in the context of losses. Plan Follow blood work, amitriptyline level. Lexapro up to 15 mg p.o. q.h.s.. Gather collateral information 06/26: Ct Rx plan . Elavil level pending 06/27: Ct Rx plan. ? explore TMS 06/28: discontinue effexor 37.5 mg and increase lexapro to 10 mg to target sx of anxiety. 07/03/21: Start Buspar 5 mg BID for anxiety and augmenting Lexapro 07/04: Increase Buspar to 10 mg BID I spent minutes with the patient and/or on the patient floor today, greater than?50% of which was spent counseling/coordinating care. Reason for contiued inpatient stay Substantial Risk for: harm to self
[2021-07-04 20:28] VITALS: BP 132/60; PULSE 83; RESP 16; TEMP 36.1; O2SAT 100
[2021-07-04] MEDS: Zolpidem Tartrate 5 MG TABLET PO ×2 (21:15→22:06)
[2021-07-04] MEDS: busPIRone HCl 10 MG TABLET PO (21:15)
[2021-07-04] MEDS: Amitriptyline HCl 50 MG TABLET PO (21:15)
[2021-07-04] MEDS: OLANZapine 5 MG TABLET PO (21:15)
--- NOTE | 2021-07-04 22:10 | PC.NURSE ---
Pt. took first dose of ambien 5mg at 2114. He requested the second dose be given and when RN tried to take it out of the pyxis it had been discontinued. Dr. Jimenez provided a TO to reorder ambien 5mg at HS with instructions that it may repeat x1 after 20 minutes of the standing HS dose. Pt. received second dose of ambien 5mg at 2205. It was documented as unscheduled because first dose had already been given.
[2021-07-05 06:00] VITALS: BP 138/87; PULSE 105; RESP 16; TEMP 36.2; O2SAT 98
[2021-07-05] MEDS: Omeprazole 20 MG CAPSULE.DR PO (06:24)
[2021-07-05] MEDS: Escitalopram Oxalate 5 MG TABLET 15 MG PO (08:58)
[2021-07-05] MEDS: busPIRone HCl 10 MG TABLET PO ×2 (08:58→21:01)
--- NOTE | 2021-07-05 15:07 | P.PNPSI_ITS ---
Subjective Subjective Date of Service: 07/05/21 Reason For Visit: depression Subjective Notes: Conditional Voluntary Interim History: the nursing staff reported the patient has been extremely anxious, using the staff to vent about his anxiety and depression. He denied active suicidal ideation. On interview with the sr. social media & mobile manager, he was reluctant to be discharged but the patient does not have inpatient level of care criteria at this moment and we came a with a very good safety plan such as contact with his therapist at least twice a day, referral to [facility] and the possibility of respite. No safety concerns at this moment Mental Status Exam Mental Status Exam Patient Appearance: Well Grooomed Patient Orientation: Person and Situation Level of Consciousness: Awake Patient Behavior: Appropriate Mood Description: Depressed Affect Description: Constricted Patient Cognition Impaired: No Ability to Follow Directions: Good Speech Pattern: Clear Memory Description: Intact Hallucinations: None Delusions: Not Present Thought Process: Linear Thought Content: positive for Intact Depressive Symptoms: Increased Anxiety, Significant Weight Loss and Feelings of Guilt Judgement: Fair Diagnostics Vital Signs (24Hr): Vital Signs - 24 hr 07/04/21 20:28 07/05/21 06:00 Temperature 97 F 97.1 F Pulse Rate 83 105 H Respiratory Rate 16 16 Blood Pressure 132/60 138/87 Pulse Oximetry 100 98 BMI result Body Mass Index 25.9 Labs Results: 06/23/21 08:32 06/21/21 19:54 Medications Medications Current Medications Acetaminophen (Acetaminophen 325 Mg Tablet) 650 mg PO Q6H PRN PRN Reason: Headache/Pain Mild Scale (1-3) Al Hydroxide/Mg Hydroxide (Magnesium Hydrox/Alum Hydrox 30 Ml Oral.Susp) 30 ml PO Q6H PRN PRN Reason: Heartburn/Nausea Amitriptyline HCl (Amitriptyline Hcl 50 Mg Tablet) 50 mg PO BEDTIME [facility] Last Admin: 07/04/21 21:15 Dose: 50 mg Documented by: Benzocaine (Throat Lozenge, Medicated Lozenge) 1 lozenge MUCOUS MEM Q2H PRN PRN Reason: Sore Throat Last Admin: 07/02/21 16:06 Dose: 1 lozenge Documented by: Buspirone HCl (Buspirone Hcl 10 Mg Tablet) 10 mg PO BID [facility] Last Admin: 07/05/21 08:58 Dose: 10 mg Documented by: Escitalopram Oxalate (Escitalopram Oxalate 5 Mg Tablet) 15 mg PO DAILY [facility] Last Admin: 07/05/21 08:58 Dose: 15 mg Documented by: Hydroxyzine HCl (Hydroxyzine Hcl 25 Mg Tablet) 25 mg PO BEDTIME PRN PRN Reason: Anxiety Last Admin: 06/30/21 20:03 Dose: 25 mg Documented by: Magnesium Hydroxide (Milk Of Magnesia 30 Ml Oral.Susp) 30 ml PO DAILY PRN PRN Reason: Constipation Last Admin: 06/27/21 12:48 Dose: 30 ml Documented by: Mirabegron (Mirabegron 50 Mg Tab.Er.24h) 50 mg PO DAILY@1700 [facility] Last Admin: 07/04/21 17:03 Dose: 50 mg Documented by: Olanzapine (Olanzapine 5 Mg Tablet) 5 mg PO BEDTIME [facility] Last Admin: 07/04/21 21:15 Dose: 5 mg Documented by: Omeprazole (Omeprazole 20 Mg Capsule.Dr) 20 mg PO DAILY@0630 [facility] Last Admin: 07/05/21 06:24 Dose: 20 mg Documented by: Trazodone HCl (Trazodone Hcl 50 Mg Tablet) 50 mg PO BEDTIME PRN PRN Reason: Insomnia Last Admin: 06/29/21 03:47 Dose: 50 mg Documented by: Zolpidem Tartrate (Zolpidem Tartrate 5 Mg Tablet) 5 mg PO BEDTIME [facility] Last Admin: 07/04/21 22:07 Dose: Not Given Documented by: Allergies Allergies Allergy/AdvReac Type Severity Reaction Status Date / Time ciprofloxacin [From CIPRO] Allergy Unknown DIARRHEA Verified 06/21/21 19:28 Assessment & Plan Assessment & Plan (1) Major depressive disorder: Status: Acute Code(s): F32.9 - Major depressive disorder, single episode, unspecified Plan Elderly transgender male with a long history of depression and anxiety admitted for exacerbation of and only a, lack of energy and suicidal thoughts in the context of losses. Plan Follow blood work, amitriptyline level. Lexapro up to 15 mg p.o. q.h.s.. Gather collateral information discharge planning start I spent minutes with the patient and/or on the patient floor today, greater than?50% of which was spent counseling/coordinating care. Reason for contiued inpatient stay Substantial Risk for: inability to function, rapid decompensation and med/psych decompensation
[2021-07-05] MEDS: Mirabegron 50 MG TAB.ER.24H PO (16:40)
[2021-07-05 18:00] VITALS: BP 162/81; PULSE 101; TEMP 36.9; O2SAT 96
[2021-07-05] MEDS: hydrOXYzine HCL 25 MG TABLET PO (18:02)
[2021-07-05] MEDS: OLANZapine 5 MG TABLET PO (21:01)
[2021-07-05] MEDS: Amitriptyline HCl 50 MG TABLET PO (21:01)
[2021-07-05] MEDS: Zolpidem Tartrate 5 MG TABLET PO ×2 (21:01→21:19)
[2021-07-06] MEDS: Omeprazole 20 MG CAPSULE.DR PO (06:29)
[2021-07-06 07:40] VITALS: BP 139/73; PULSE 93; RESP 19; TEMP 37.1; O2SAT 96
[2021-07-06] MEDS: Escitalopram Oxalate 5 MG TABLET 15 MG PO (08:11)
[2021-07-06] MEDS: busPIRone HCl 10 MG TABLET PO ×2 (08:11→16:55)
--- NOTE | 2021-07-06 13:46 | P.DS_ITS ---
DS: Providers Provider Date of Service: 07/06/21 Date of admission: 06/22/21 13:06 Date of discharge: 07/06/21 Primary care physician: Scott Quiroz MD Consults: 06/21/21 20:40 Consult to Care Team Stat Comment: Reason for consultation: +si increased depression Attending physician on discharge: Tommy BainGr DS: Diagnosis Discharge Diagnosis (1) Major depressive disorder: Status: Acute DS: Medications Discharge Medications Home Medications: Home Medications Medication Instructions Recorded Confirmed amitriptyline 10 mg tablet 20 mg PO BEDTIME 06/21/21 06/21/21 lorazepam 0.5 mg tablet 0.25 mg PO BEDTIME PRN 06/21/21 06/21/21 lorazepam 0.5 mg tablet 0.5 mg PO BID@0900,1700 06/21/21 06/22/21 olanzapine 2.5 mg tablet 5 mg PO BEDTIME 06/21/21 06/22/21 pantoprazole 40 mg tablet,delayed 1 tab PO DAILY 06/21/21 06/21/21 release zolpidem 10 mg tablet 1 tab PO BEDTIME 06/21/21 06/21/21 venlafaxine 150 mg 150 mg PO DAILY 06/22/21 06/22/21 capsule,extended release 24 hr Mental Status Exam Mental Status Exam Patient Appearance: Well Grooomed and Appropriate Patient Orientation: Person and Situation Level of Consciousness: Awake Patient Behavior: Passive and Resistive to Care Mood Description: Withdrawn and Anxious Affect Description: Constricted Patient Cognition Impaired: No Ability to Follow Directions: Good Speech Pattern: Clear Memory Description: Intact Hallucinations: None Delusions: Not Present Thought Process: Linear Thought Content: positive for Intact Judgement: Fair DS: Summary Hospital Course Hospital Course: The patient was admitted to this unit since he reported exacerbation of depressive symptoms and no response with Effexor In the context of recent losses such as the of his cat. Please see HPI of the admission note for further details. On admission, we came with a plan to replace Effexor with Lexapro. We started the cross taper slowly and eventually we discontinue Effexor and titrated up Lexapro up to 15 mg p.o. daily with no side effects. we also decided increased Elavil from 20 mg to 50 mg to target insomnia and depression. The patient was able to participate in some groups, he was extremely attention seeking to the staff but in general, the goal of cross tapering it to Lexapro was successful and he has verbalized several times no suicidal ideation. We discussed discharge planning a few days before of the planned discharge date and he became extremely anxious. I explained that since he is safe in the unit he eventually needs to be discharged into the community. We delayed the discharge so the patient would be more comfortable with the discharge planning. He was offered to him several options for safe discharge such as respite, PHP and other interventions but he refused respite services. The day of the discharge, the patient behaved very childish, he stayed in his room he refused to be discharged he even has stated that he was self-harming, a behavior that has never been shown here. We explained him that at this moment he does not have inpatient level of care and he should continue with treatment as an outpatient. It was clear that the patient showed cluster B personality traits. Since there were no safety concerns the patient was discharge with the discharge planning described below. Time spent discussing smoking cessation with patient: 3 to 10 minutes Status at Discharge Cognitive/behavioral status at discharge: At baseline Functional status at discharge: independent ambulation Overall status at discharge: patient is back to baseline Time Spent with Patient Time attestation: Total time spent providing and/or coordinating discharge services: Time spent: Less than 30 minutes Discharge Plan Discharge Patient Disposition: Home, Self-Care Discharge Diagnosis: major depressive disorder recurrent episode Referrals: Geovanna Davis APRN [Other] - 07/12/21 9:30 am (Your next appointment with Geovanna Davis is for 07/12/21 at 9:30am. ) [facility] PHP [Other] - 07/07/21 12:00 pm (PHP is telehealth by [facility]. Your intake appointment for PHP is scheduled for 07/07/21 at 12pm with Melissa Bravo. She will contact you for appointment. ) Blaire Vo [Other] - 07/08/21 3:00 pm (Your next therapy session with Blaire by phone is 07/08/21 at 3:00PM. She is also available by text or phone for check ins twice a day.) Joie PONDA [Other] - 07/06/21 ([facility] services will resume upon discharge for medication management. Your nurse Festis will resume your medication management. ) Scott Quiroz MD [Primary Care Provider] - 07/13/21 10:00 am Discharge Medications: New olanzapine 5 mg Tablet 5 mg PO BEDTIME 30 Days Qty: 30 0RF amitriptyline 50 mg Tablet 50 mg PO BEDTIME 30 Days Qty: 30 0RF buspirone 10 mg Tablet 10 mg PO BID 30 Days Qty: 60 0RF escitalopram oxalate 10 mg tablet 15 mg PO DAILY 30 Days Qty: 45 0RF hydroxyzine HCl 25 mg Tablet 25 mg PO BEDTIME PRN (Reason: Anxiety) 30 Days Qty: 30 0RF Myrbetriq 50 mg Tablet Extended Release 24 Hr 50 mg PO DAILY@1700 30 Days Qty: 30 0RF Continued pantoprazole 40 mg tablet,delayed release (DR/EC) 1 tab PO DAILY 0RF zolpidem 10 mg tablet 1 tab PO BEDTIME 30 Days Qty: 30 0RF Discontinued olanzapine 2.5 mg tablet 5 mg PO BEDTIME 0RF lorazepam 0.5 mg tablet 0.25 mg PO BEDTIME PRN (Reason: Anxiety) 0RF amitriptyline 10 mg tablet 20 mg PO BEDTIME 0RF lorazepam 0.5 mg tablet 0.5 mg PO BID@0900,1700 0RF venlafaxine 150 mg Capsule,Extended Release 24hr 150 mg PO DAILY 0RF Discharge Orders: Discharge Order (Routine); Ordered 07/06/21 Ordered By: Tommy Gr Diet: advance to usual diet Activity on Discharge: As tolerated Stand Alone Forms: Patient Portal Discharge page Care Plan Goals: care plan goals achieved in this admission Health Concerns: continue treatment with primary care physician as an outpatient Plan of Treatment: continue outpatient mental health treatment with usual providers Assessment: middle-aged male transgender with a long history of depression and cluster B personality traits admitted for exacerbation of depression in the context of not responding to Effexor anymore. He was cross tapered to Lexapro without any side effects. Safe in the community even the he presented with manipulative and childish behavior close to the discharge date.
[2021-07-06] MEDS: Mirabegron 50 MG TAB.ER.24H PO (16:41)
[2021-07-06] MEDS: Amitriptyline HCl 50 MG TABLET PO (16:55)
[2021-07-06] MEDS: OLANZapine 5 MG TABLET PO (16:55)
== END 2021-07-06 17:05 | disposition home or self-care (01) | DRG 881 ==
LOC: HO.ED 22:25 → HO.PGERI 06-22 13:13
PROVIDERS: Physician Assistant; Admitting Provider Psychiatry & Neurology Psychiatry; Emergency Provider Emergency Medicine Emergency Medical Services; PCP Internal Medicine; Visit Provider Psychiatry & Neurology Psychiatry
DX: F32.9 Major depressive disorder, single episode, unspecified (principal); R45.851 Suicidal ideations; F64.8 Other gender identity disorders; Z20.822 Contact with and (suspected) exposure to COVID-19; Z87.891 Personal history of nicotine dependence; Z79.899 Other long term (current) drug therapy
CPT/HCPCS: 36415; 80048; 80061; 80076; 80307; 80335; 81001; 83036; 84443; 85025; 87635; 93005; 99285

== ENCOUNTER 2021-08-15 17:58 | Inpatient (IN) | payer MEDICARE, SELFPAY ==
[2021-08-15 18:38] VITALS: BMI 24.9
[2021-08-15 18:40] VITALS: BP 126/58; PULSE 100; RESP 14; TEMP 36.4; O2SAT 98
--- NOTE | 2021-08-15 19:38 | PC.ADMIT ---
Patient arrived on unit at 1825 via stretcher from [facility]. Patient was met outside unit where he signed a CV. Patient was alert and oriented x4, memory intact, speech clear and appropriate. Patient admitted due to SI with plan to drown himself in shower. Patient weight was obtained. Vitals were taken (WNL). Patient settled in room. Admission to be completed by next shift.
[2021-08-15 21:15] VITALS: BP 125/61; PULSE 96; RESP 18; TEMP 36.6; O2SAT 100
[2021-08-15] MEDS: OLANZapine 5 MG TABLET PO (21:39)
[2021-08-15] MEDS: busPIRone HCl 10 MG TABLET PO (21:39)
[2021-08-15] MEDS: Zolpidem Tartrate 5 MG TABLET PO (21:39)
[2021-08-15] MEDS: Amitriptyline HCl 50 MG TABLET PO (21:39)
--- NOTE | 2021-08-16 03:50 | PC.NURSE ---
Pt. completed admission process on 2nd shift. Pt. A&Ox4. Pt. admitted on 08/15/2021 at 1825. Pt. came from [facility]. Pt. signed a CV. Safety tool completed. Pt. contracts for safety on the unit. Pt. denied SI/HI/AH/VH. Pt. reported experiencing one reoccuring intrusive suicidal thought and would like help to cope with it. Pt. is on 15 minute safety checks. Pt. was discharged on 08/11/2021 from a [facility] (07/07/2021 to 08/11/2022). Pt. was admitted to [facility] (S1) from 06/21/2021 to 07/06/2021. Pt. reports admission to in 2019. Nurse to nurse report obtained prior to admission. Pt. presented with a depressed mood and flat affect. Pt. was calm and cooperative. He reports grief related to of cat on 04/26/2021. Pt. has a history of trauma, but was guarded about details. Pt. is recovering alcoholic and attends AA. Pt. denies substance use at this time. Pt. presented to the ER at [facility] and was evaluated by N. Crisis evaluation in chart. VS: 97.9, 125/61, Hr96, O2 Sat 100% on RA, RR18. Pt. took HS medications and appears to be sleeping.
[2021-08-16 06:00] VITALS: BP 106/57; PULSE 106; RESP 14; TEMP 36.4; O2SAT 97
[2021-08-16] MEDS: LORazepam 0.5 MG TABLET PO ×2 (08:11→17:06)
[2021-08-16] MEDS: Escitalopram Oxalate 5 MG TABLET 15 MG PO (08:11)
[2021-08-16] MEDS: busPIRone HCl 10 MG TABLET PO ×2 (08:11→20:52)
[2021-08-16] MEDS: Mirabegron 50 MG TAB.ER.24H PO (08:12)
[2021-08-16 09:15] LABS: Estimated Average Glucose 114 mg/dL; Hemoglobin A1c % 5.6 %
[2021-08-16 09:25] LABS: Cholesterol 169 mg/dL; HDL Cholesterol 47 mg/dL; LDL Cholesterol Calculated 97 mg/dl; Magnesium 2.1 mg/dL (1.6-2.6); Triglycerides 129 mg/dL
[2021-08-16 10:00] LABS: Folate 19.1 ng/mL (> or = 4.0); Vitamin B12 719 pg/mL (200-900)
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
[2021-08-16] MEDS: hydrOXYzine HCL 25 MG TABLET PO (14:09)
--- NOTE | 2021-08-16 14:51 | PM.IMCN ---
History of Present Illness Data of Consult Service Date: 08/16/21 Primary Care Provider: Scott Quiroz MD HPI Reason for consult: new admission to Psychiatry o unit A 71 years old transgender female to male, identified as male with PMH of Oliver's, GERD, hoarseness of voice, depression who presents to the hospital for Psychiatry admission for depression and suicidal ideation. He reports feeling well generally with no reported chest pain, shortness of of breath or change in bowel habit. Reported requiring dilatation for his hoarseness of voice every 8 months or so and being on rituximab for Oliver's every 6 months the last dose was received 1 month ago. He received 2 doses of the COVID-19 vaccine an still awaiting clearance from his primary to receive the 3rd dose. Admitted to psychiatry unit for suicidal ideation, hospitalist team asked for consult. Review of Systems Review of Systems: No fever, chills or weakness No chest pain, palpitation No shortness of breath or coughing No abdominal pain, nausea or vomiting No urinary symptoms No any rash or wounds PMFSH Medical History Hard of hearing Tracheal stenosis Transgender Family History Father Heart disease Social History Household Members: None Housing: House Do you presently have visiting nurse or other home services: Yes (For medication management. [facility]) Patient Tobacco Use Status: Former Tobacco user Quit Date: Quit in 20s. Tobacco use type: Cigarette Years Smoked: 10 Smoked in Last 30 Days: No e-Cigarette/Vaping Use: Never Used Second Hand Smoke Exposure: No Use of substances other than those prescribed or required for medical reasons: No Currently Displaying Signs/Symptoms of Drug Intoxication Withdrawal: No Any prior treatment program specific to substance use: Yes (Attends AA) Have you been hit, kicked, punched, or otherwise hurt by someone within the past year? If so, by whom?: No Do you feel safe in your current relationship?: No Current Relationship Is there a partner from a previous relationship who is making you feel unsafe now?: No Are you made to feel afraid or neglected: No Spiritual Healthcare Practices: AA Mosque Healthcare Practices: none Cultural Healthcare Practices: none Advance Directives: No Advance Directives Information Provided: No (Declined) Advance Directives on File: No Do you have thoughts of harming others: None Do you have a plan to hurt others: No Plan Recently lost weight without trying: No Eating poorly because of decreased appetite: Yes Nutrition Risks: Poor intake 0-25% >4 days Poor oral hygiene: No service: No Meds Allergies Allergy/AdvReac Type Severity Reaction Status Date / Time ciprofloxacin [From CIPRO] Allergy Unknown DIARRHEA Verified 08/16/21 03:50 Active Medications: Current Medications Acetaminophen (Acetaminophen 325 Mg Tablet) 650 mg PO Q6H PRN PRN Reason: Headache/Pain Mild Scale (1-3) Al Hydroxide/Mg Hydroxide (Magnesium Hydrox/Alum Hydrox 30 Ml Oral.Susp) 30 ml PO Q6H PRN PRN Reason: Heartburn/Nausea Amitriptyline HCl (Amitriptyline Hcl 50 Mg Tablet) 50 mg PO BEDTIME [facility] Last Admin: 08/15/21 21:39 Dose: 50 mg Documented by: Buspirone HCl (Buspirone Hcl 10 Mg Tablet) 10 mg PO BID [facility] Last Admin: 08/16/21 08:11 Dose: 10 mg Documented by: Escitalopram Oxalate (Escitalopram Oxalate 5 Mg Tablet) 15 mg PO DAILY [facility] Last Admin: 08/16/21 08:11 Dose: 15 mg Documented by: Hydroxyzine HCl (Hydroxyzine Hcl 25 Mg Tablet) 25 mg PO Q6H PRN PRN Reason: Anxiety Last Admin: 08/16/21 14:09 Dose: 25 mg Documented by: Lorazepam (Lorazepam 0.5 Mg Tablet) 0.5 mg PO BID@0900,1700 [facility] Last Admin: 08/16/21 08:11 Dose: 0.5 mg Documented by: Lorazepam (Lorazepam 0.5 Mg Tablet) 0.25 mg PO DAILY PRN PRN Reason: anxiety Magnesium Hydroxide (Milk Of Magnesia 30 Ml Oral.Susp) 30 ml PO DAILY PRN PRN Reason: Constipation Mirabegron (Mirabegron 50 Mg Tab.Er.24h) 50 mg PO DAILY [facility] Last Admin: 08/16/21 08:12 Dose: 50 mg Documented by: Olanzapine (Olanzapine 5 Mg Tablet) 5 mg PO BEDTIME [facility] Last Admin: 08/15/21 21:39 Dose: 5 mg Documented by: Trazodone HCl (Trazodone Hcl 50 Mg Tablet) 50 mg PO BEDTIME PRN PRN Reason: Insomnia Zolpidem Tartrate (Zolpidem Tartrate 5 Mg Tablet) 5 mg PO BEDTIME [facility] Last Admin: 08/15/21 21:39 Dose: 5 mg Documented by: Home Medications Medication Instructions Recorded Confirmed Last Taken Type pantoprazole 40 mg tablet,delayed 1 tab PO DAILY 06/21/21 08/16/21 Unknown History release buspirone 20 mg PO DAILY 08/16/21 08/16/21 Unknown History cholecalciferol (vitamin D3) 125 125 mcg PO DAILY 08/16/21 08/16/21 Unknown History mcg (5,000 unit) tablet (Vitamin D3) hydroxyzine HCl 50 mg tablet 50 mg PO QID PRN 08/16/21 08/16/21 Unknown History lorazepam 0.5 mg tablet (Ativan) 0.5 mg PO BID 08/16/21 08/16/21 Unknown History Physical Exam Vital Signs and Narrative: Vital Signs: Last Vital Signs Temp 97.5 F 08/16/21 06:00 Pulse 106 H 08/16/21 06:00 Resp 14 08/16/21 06:00 BP 106/57 L 08/16/21 06:00 Pulse Ox 97 08/16/21 06:00 BMI result Body Mass Index 24.9 Const: Other: Constitutional : Alert, oriented, not in distress, hoarseness of voice which is his baseline Neck : Normal inspection, Supple Cardiovascular : RRR, S1 S2, no lower extremity edema Respiratory : Good bilateral air entry, no crackles, wheezes or rhonchi Gastrointestinal: soft, lax, Normal bowel sounds, Non tender Skin : Warm, Dry Neurological : Alert & oriented x3, No focal deficit, CN II-XII examined and within normal Results Labs Labs: Laboratory Results - last 24 hr 08/16/21 08/16/21 08/16/21 08:53 08:53 08:53 Estimat Average Glucose 114 Hemoglobin A1c % 5.6 Magnesium 2.1 Triglycerides 129 Cholesterol 169 LDL Cholesterol, Calc 97 HDL Cholesterol 47 Vitamin B12 719 Folate 19.1 TSH 1.10 Free T4 1.00 Assessment and Plan (1) GERD (gastroesophageal reflux disease): Status: Acute (2) Granulomatosis with polyangiitis: Status: Acute Plan A 71 years old male with PMH of Oliver's, GERD, hoarseness of voice, depression who presents to the hospital for Psychiatry admission for depression and suicidal ideation. GERD continue omeprazole Hoarseness of voice 2/2 Hx of granulomatosis w polyangiitis Add lozenges continue tx as outpatient Suicidal ideation Psychiatry team following Thank you for the consult, will follow with you as needed. Please contact hospitalist team for any further questions.
[2021-08-16 20:45] VITALS: BP 101/66; PULSE 92; RESP 18; TEMP 36.9; O2SAT 97
[2021-08-16] MEDS: OLANZapine 5 MG TABLET PO (20:52)
[2021-08-16] MEDS: Amitriptyline HCl 50 MG TABLET PO (20:52)
[2021-08-16] MEDS: Zolpidem Tartrate 5 MG TABLET PO (20:52)
[2021-08-16] MEDS: Throat Lozenge, Medicated LOZENGE 1 LOZENGE MUCOUS MEM (20:55)
[2021-08-17 06:00] VITALS: BP 118/60; PULSE 100; RESP 14; TEMP 36.8; O2SAT 96
[2021-08-17] MEDS: busPIRone HCl 10 MG TABLET PO ×2 (09:10→21:31)
[2021-08-17] MEDS: Omeprazole 40 MG CAPSULE.DR PO (09:10)
[2021-08-17] MEDS: LORazepam 0.5 MG TABLET PO ×2 (09:10→16:55)
[2021-08-17] MEDS: Mirabegron 50 MG TAB.ER.24H PO (09:11)
[2021-08-17] MEDS: Throat Lozenge, Medicated LOZENGE 1 LOZENGE MUCOUS MEM ×2 (09:30→14:26)
--- NOTE | 2021-08-17 14:18 | HO.PSYCHPN ---
Subjective Subjective Date of Service: 08/17/21 Reason For Visit: SI, Depression, Anxiety Subjective Notes: Conditional Voluntary and 3 Day Interim History: Pt reports he is doing great. He denies SI/HI. he reports sleeping and eating well. Pt has been visible in the unit and social with select peers. He is taking medications as prescribed and denies any side effects. When asked what he thikns is different that he feels so well- pt states I think the anxiety medications are working. Still in agreement to d/c 08/19/21. Medication Compliance: Yes Side effects from medications: No Attending Groups: Yes Review of Systems Review of Systems No fever, chills or weakness No chest pain, palpitation No shortness of breath or coughing No abdominal pain, nausea or vomiting No urinary symptoms No any rash or wounds Constitutional: Reports no additional constitutional complaints Eyes: Reports no additional eye complaints Reports hoarseness Cardiovascular: Denies chest pain, Denies lightheadedness and Denies dyspnea Respiratory: Denies dyspnea Gastrointestinal: Denies constipation, Denies dyspepsia, Denies heartburn, Denies diarrhea and Denies hematemesis Genitourinary: Denies dysuria, Denies urinary frequency and Denies urinary hesitancy Musculoskeletal: Denies back pain Mental Status Exam Mental Status Exam Narrative: Appearance: casually groomed, fair hygiene in NAD Behavior:cooperative. psychomotor:no agitation or retardation noted Speech:clear, normal rate/rhythm/volume, spontaneous Thought process:linear Thought content:no signs of psychosis, future oriented looking forward to do gardening, d/c soon Mood: okay Affect: congruent, SI:denies, but reports chronic SI HI:none VH/AH:none Delusions:none Insight/judgment:fair x 2. Memory/cog: alert, oriented x3. Diagnostics Vital Signs (24Hr): Vital Signs - 24 hr 08/16/21 20:45 08/17/21 06:00 Temperature 98.4 F 98.2 F Pulse Rate 92 100 Respiratory Rate 18 14 Blood Pressure 101/66 118/60 Pulse Oximetry 97 96 BMI result Body Mass Index 24.9 Labs Labs: Laboratory Results - last 48 hr 08/16/21 08/16/21 08/16/21 08:53 08:53 08:53 Estimat Average Glucose 114 Hemoglobin A1c % 5.6 Magnesium 2.1 Triglycerides 129 Cholesterol 169 LDL Cholesterol, Calc 97 HDL Cholesterol 47 Vitamin B12 719 Folate 19.1 TSH 1.10 Free T4 1.00 Medications Medications Current Medications Acetaminophen (Acetaminophen 325 Mg Tablet) 650 mg PO Q6H PRN PRN Reason: Headache/Pain Mild Scale (1-3) Al Hydroxide/Mg Hydroxide (Magnesium Hydrox/Alum Hydrox 30 Ml Oral.Susp) 30 ml PO Q6H PRN PRN Reason: Heartburn/Nausea Amitriptyline HCl (Amitriptyline Hcl 50 Mg Tablet) 50 mg PO BEDTIME [facility] Last Admin: 08/16/21 20:52 Dose: 50 mg Documented by: Benzocaine (Throat Lozenge, Medicated Lozenge) 1 lozenge MUCOUS MEM Q2H PRN PRN Reason: Sore Throat Last Admin: 08/17/21 14:26 Dose: 1 lozenge Documented by: Buspirone HCl (Buspirone Hcl 10 Mg Tablet) 10 mg PO BID [facility] Last Admin: 08/17/21 09:10 Dose: 10 mg Documented by: Escitalopram Oxalate (Escitalopram Oxalate 5 Mg Tablet) 15 mg PO DAILY [facility] Last Admin: 08/16/21 08:11 Dose: 15 mg Documented by: Hydroxyzine HCl (Hydroxyzine Hcl 25 Mg Tablet) 25 mg PO Q6H PRN PRN Reason: Anxiety Last Admin: 08/16/21 14:09 Dose: 25 mg Documented by: Lorazepam (Lorazepam 0.5 Mg Tablet) 0.5 mg PO BID@0900,1700 [facility] Last Admin: 08/17/21 09:10 Dose: 0.5 mg Documented by: Lorazepam (Lorazepam 0.5 Mg Tablet) 0.25 mg PO DAILY PRN PRN Reason: anxiety Last Admin: 08/17/21 14:31 Dose: 0.25 mg Documented by: Magnesium Hydroxide (Milk Of Magnesia 30 Ml Oral.Susp) 30 ml PO DAILY PRN PRN Reason: Constipation Mirabegron (Mirabegron 50 Mg Tab.Er.24h) 50 mg PO DAILY [facility] Last Admin: 08/17/21 09:11 Dose: 50 mg Documented by: Olanzapine (Olanzapine 5 Mg Tablet) 5 mg PO BEDTIME [facility] Last Admin: 08/16/21 20:52 Dose: 5 mg Documented by: Omeprazole (Omeprazole 40 Mg Capsule.Dr) 40 mg PO DAILY@0630 [facility] Last Admin: 08/17/21 09:10 Dose: 40 mg Documented by: Trazodone HCl (Trazodone Hcl 50 Mg Tablet) 50 mg PO BEDTIME PRN PRN Reason: Insomnia Zolpidem Tartrate (Zolpidem Tartrate 5 Mg Tablet) 5 mg PO BEDTIME [facility] Last Admin: 08/16/21 20:52 Dose: 5 mg Documented by: Allergies Allergies Allergy/AdvReac Type Severity Reaction Status Date / Time ciprofloxacin [From CIPRO] Allergy Unknown DIARRHEA Verified 08/16/21 03:50 Assessment & Plan Assessment & Plan (1) MDD (major depressive disorder), recurrent episode, moderate: Status: Acute Code(s): F33.1 - Major depressive disorder, recurrent, moderate (2) Dependent personality disorder: Status: Acute Code(s): F60.7 - Dependent personality disorder Plan Mr. Smith is a 71 year-old transgender male admitted for suicidality conditional to feeling lonely, unable to care for himself, feeling safe in structure environments like inpatient units. He has been inpatient from 06/21-07/06 here on this unit, and at [facility] from 07/07 to 08/11/21. Pt shows insight in that he notes that voicing suicidal ideation has become a way of soliciting help and being admitted to the hospital rather than reflection of suicidality/safety assessment. However, pt on admission denies SI, signed a 3 day notice, agrees to engage in OP psych tx. We discussed risks, benefits and alternative treatment options. PLAN 1. Admit to [facility]- 3 day, 15 minutes checks for safety 2. Continue current medications 3. Aim for short admission to prevent reinforcement of suicidal reports as way of soliciting help and avoiding engaging with OP psych providers. Pt in agreement with this although it may change in few days- as d/c date gets closer. 4. Obtain collateral information 4. Aftercare planning. 08/17 continue current medications. d/c 08/19/21. I spent minutes with the patient and/or on the patient floor today, greater than?50% of which was spent counseling/coordinating care. Reason for contiued inpatient stay Substantial Risk for: harm to self
[2021-08-17] MEDS: LORazepam 0.5 MG TABLET 0.25 MG PO (14:31)
[2021-08-17 20:15] VITALS: BP 106/57; PULSE 99; RESP 17; TEMP 36.4; O2SAT 96
[2021-08-17] MEDS: OLANZapine 5 MG TABLET PO (21:29)
[2021-08-17] MEDS: Amitriptyline HCl 50 MG TABLET PO (21:30)
[2021-08-17] MEDS: Zolpidem Tartrate 5 MG TABLET PO (21:31)
[2021-08-18 07:35] VITALS: BP 142/64; PULSE 102; RESP 16; TEMP 36.2; O2SAT 97
[2021-08-18] MEDS: Mirabegron 50 MG TAB.ER.24H PO (09:29)
[2021-08-18] MEDS: busPIRone HCl 10 MG TABLET PO ×2 (09:29→20:59)
[2021-08-18] MEDS: Escitalopram Oxalate 5 MG TABLET 15 MG PO (09:29)
[2021-08-18] MEDS: LORazepam 0.5 MG TABLET PO ×2 (09:29→16:18)
[2021-08-18] MEDS: LORazepam 0.5 MG TABLET 0.25 MG PO (13:41)
--- NOTE | 2021-08-18 14:58 | P.PNPSI_ITS ---
Subjective Subjective Date of Service: 08/18/21 Reason For Visit: SI, Depression, Anxiety Subjective Notes: 3 Day Interim History: Pt continues to report that he is doing well in that he is more hopeful, less depressed, no SI/HI. He reports sleeping and eating well. he reports ativan very helpful for anxiety. He has been visible in the unit and attends assigned groups. Medication Compliance: Yes Side effects from medications: No Review of Systems Review of Systems No fever, chills or weakness No chest pain, palpitation No shortness of breath or coughing No abdominal pain, nausea or vomiting No urinary symptoms No any rash or wounds Constitutional: Reports no additional constitutional complaints Eyes: Reports no additional eye complaints Reports hoarseness Cardiovascular: Denies chest pain, Denies lightheadedness and Denies dyspnea Respiratory: Denies dyspnea Gastrointestinal: Denies constipation, Denies dyspepsia, Denies heartburn, Denies diarrhea and Denies hematemesis Genitourinary: Denies dysuria, Denies urinary frequency and Denies urinary hesitancy Musculoskeletal: Denies back pain Mental Status Exam Mental Status Exam Narrative: Appearance: casually groomed, fair hygiene in NAD Behavior:cooperative. psychomotor:no agitation or retardation noted Speech:clear, normal rate/rhythm/volume, spontaneous Thought process:linear Thought content:no signs of psychosis, future oriented looking forward to do gardening, d/c soon Mood: okay Affect: congruent, SI:denies, but reports chronic SI HI:none VH/AH:none Delusions:none Insight/judgment:fair x 2. Memory/cog: alert, oriented x3. Diagnostics Vital Signs (24Hr): Vital Signs - 24 hr 08/17/21 20:15 08/18/21 07:35 Temperature 97.5 F 97.2 F Pulse Rate 99 102 H Respiratory Rate 17 16 Blood Pressure 106/57 L 142/64 H Pulse Oximetry 96 97 BMI result Body Mass Index 24.9 Medications Medications Current Medications Acetaminophen (Acetaminophen 325 Mg Tablet) 650 mg PO Q6H PRN PRN Reason: Headache/Pain Mild Scale (1-3) Al Hydroxide/Mg Hydroxide (Magnesium Hydrox/Alum Hydrox 30 Ml Oral.Susp) 30 ml PO Q6H PRN PRN Reason: Heartburn/Nausea Amitriptyline HCl (Amitriptyline Hcl 50 Mg Tablet) 50 mg PO BEDTIME [facility] Last Admin: 08/17/21 21:30 Dose: 50 mg Documented by: Benzocaine (Throat Lozenge, Medicated Lozenge) 1 lozenge MUCOUS MEM Q2H PRN PRN Reason: Sore Throat Last Admin: 08/17/21 14:26 Dose: 1 lozenge Documented by: Buspirone HCl (Buspirone Hcl 10 Mg Tablet) 10 mg PO BID [facility] Last Admin: 08/18/21 09:29 Dose: 10 mg Documented by: Escitalopram Oxalate (Escitalopram Oxalate 5 Mg Tablet) 15 mg PO DAILY [facility] Last Admin: 08/18/21 09:29 Dose: 15 mg Documented by: Hydroxyzine HCl (Hydroxyzine Hcl 25 Mg Tablet) 25 mg PO Q6H PRN PRN Reason: Anxiety Last Admin: 08/16/21 14:09 Dose: 25 mg Documented by: Lorazepam (Lorazepam 0.5 Mg Tablet) 0.5 mg PO BID@0900,1700 [facility] Last Admin: 08/18/21 09:29 Dose: 0.5 mg Documented by: Lorazepam (Lorazepam 0.5 Mg Tablet) 0.25 mg PO DAILY PRN PRN Reason: anxiety Last Admin: 08/18/21 13:41 Dose: 0.25 mg Documented by: Magnesium Hydroxide (Milk Of Magnesia 30 Ml Oral.Susp) 30 ml PO DAILY PRN PRN Reason: Constipation Mirabegron (Mirabegron 50 Mg Tab.Er.24h) 50 mg PO DAILY [facility] Last Admin: 08/18/21 09:29 Dose: 50 mg Documented by: Olanzapine (Olanzapine 5 Mg Tablet) 5 mg PO BEDTIME [facility] Last Admin: 08/17/21 21:29 Dose: 5 mg Documented by: Omeprazole (Omeprazole 40 Mg Capsule.Dr) 40 mg PO DAILY@0630 [facility] Last Admin: 08/18/21 11:06 Dose: Not Given Documented by: Trazodone HCl (Trazodone Hcl 50 Mg Tablet) 50 mg PO BEDTIME PRN PRN Reason: Insomnia Zolpidem Tartrate (Zolpidem Tartrate 5 Mg Tablet) 5 mg PO BEDTIME [facility] Last Admin: 08/17/21 21:31 Dose: 5 mg Documented by: Allergies Allergies Allergy/AdvReac Type Severity Reaction Status Date / Time ciprofloxacin [From CIPRO] Allergy Unknown DIARRHEA Verified 08/16/21 03:50 Assessment & Plan Assessment & Plan (1) MDD (major depressive disorder), recurrent episode, moderate: Status: Acute Code(s): F33.1 - Major depressive disorder, recurrent, moderate (2) Dependent personality disorder: Status: Acute Code(s): F60.7 - Dependent personality disorder Plan Mr. Smith is a 71 year-old transgender male admitted for suicidality conditional to feeling lonely, unable to care for himself, feeling safe in structure environments like inpatient units. He has been inpatient from 06/21-07/06 here on this unit, and at [facility] from 07/07 to 08/11/21. Pt shows insight in that he notes that voicing suicidal ideation has become a way of soliciting help and being admitted to the hospital rather than reflection of suicidality/safety assessment. However, pt on admission denies SI, signed a 3 day notice, agrees to engage in OP psych tx. We discussed risks, benefits and alternative treatment options. PLAN 1. Admit to [facility]- 3 day, 15 minutes checks for safety 2. Continue current medications 3. Aim for short admission to prevent reinforcement of suicidal reports as way of soliciting help and avoiding engaging with OP psych providers. Pt in agreement with this although it may change in few days- as d/c date gets closer. 4. Obtain collateral information 4. Aftercare planning. 08/17 continue current medications. d/c 08/19/21. 08/18 no med changes. d/c 08/19 I spent minutes with the patient and/or on the patient floor today, greater than?50% of which was spent counseling/coordinating care. Reason for contiued inpatient stay Substantial Risk for: stable for discharge
[2021-08-18] MEDS: Throat Lozenge, Medicated LOZENGE 1 LOZENGE MUCOUS MEM (16:15)
[2021-08-18 18:00] VITALS: BP 111/56; PULSE 84; RESP 17; TEMP 36.8; O2SAT 99
[2021-08-18] MEDS: Amitriptyline HCl 50 MG TABLET PO (20:59)
[2021-08-18] MEDS: Zolpidem Tartrate 5 MG TABLET PO (20:59)
[2021-08-18] MEDS: OLANZapine 5 MG TABLET PO (21:00)
[2021-08-19] MEDS: Omeprazole 40 MG CAPSULE.DR PO (05:41)
[2021-08-19 07:25] VITALS: BP 127/76; PULSE 105; RESP 18; TEMP 36.1; O2SAT 98
--- NOTE | 2021-08-19 09:00 | PM.PSYDC ---
DS: Providers Provider Date of Service: 08/19/21 Date of admission: 08/15/21 17:58 Primary care physician: Scott Quiroz MD Consults: 08/15/21 18:20 Consult to Hospitalist Routine Consulting Provider: Hospitalist Reason For Exam: new admit from [facility] DS: Diagnosis Discharge Diagnosis (1) MDD (major depressive disorder), recurrent episode, moderate: Status: Acute (2) Dependent personality disorder: Status: Acute DS: Medications Discharge Medications Home Medications: Home Medications Medication Instructions Recorded Confirmed pantoprazole 40 mg tablet,delayed 1 tab PO DAILY 06/21/21 08/16/21 release buspirone 20 mg PO DAILY 08/16/21 08/16/21 cholecalciferol (vitamin D3) 125 125 mcg PO DAILY 08/16/21 08/16/21 mcg (5,000 unit) tablet (Vitamin D3) hydroxyzine HCl 50 mg tablet 50 mg PO QID PRN 08/16/21 08/16/21 lorazepam 0.5 mg tablet (Ativan) 0.5 mg PO BID 08/16/21 08/16/21 Previous Rx's Medication Instructions Recorded amitriptyline 50 mg tablet 50 mg PO BEDTIME 30 Days #30 tab 07/06/21 escitalopram oxalate 10 mg tablet 15 mg PO DAILY 30 Days #45 tab 07/06/21 mirabegron 50 mg tablet,extended 50 mg PO DAILY@1700 30 Days #30 tab 07/06/21 release 24 hr (Myrbetriq) olanzapine 5 mg tablet 5 mg PO BEDTIME 30 Days #30 tab 07/06/21 zolpidem 10 mg tablet 1 tab PO BEDTIME 30 Days #30 tab 07/06/21 Mental Status Exam Mental Status Exam Narrative: Appearance: casually groomed, fair hygiene in NAD Behavior:cooperative. psychomotor:no agitation or retardation noted Speech:clear, normal rate/rhythm/volume, spontaneous Thought process:linear Thought content:no signs of psychosis, future oriented looking forward to do gardening, d/c soon Mood: okay Affect: congruent, SI:denies, but reports chronic SI conditional to feeling lonely HI:none VH/AH:none Delusions:none Insight/judgment:fair x 2. Memory/cog: alert, oriented x3. Data Data Completed and Pending Completed studies during hospitalization [Text1]: 08/16/21 08/16/21 08/16/21 08:53 08:53 08:53 Estimat Average Glucose 114 Hemoglobin A1c % 5.6 Magnesium 2.1 Triglycerides 129 Cholesterol 169 LDL Cholesterol, Calc 97 HDL Cholesterol 47 Vitamin B12 719 Folate 19.1 TSH 1.10 Free T4 1.00 DS: Summary Hospital Course Hospital Course: Subjective Notes: Monreal Warning, Conditional Voluntary and 3 Day Narrative: Mr. Rausch is a 71 year-old transgender female to male with hx of MDD who called crisis, was transported to [facility] ED on 08/13 due to increase loneliness, reporting not being able to care for himself, not wanting responsibilities, wanting to be taken care of suicidal ideation with plan to starve to or burning self with hot water in the shower. Pt has been inn inpatient psych units since 06/21. He was initially discharge from this unit on 07/06. He was readmitted to [facility] from 07/07 to 08/11/21. On the unit, pt reports feeling okay. He reports he does not want to . He endorses feeling lonely and admits that he does want to be taken care of. 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 He reports he has some friends in the community and feels these friends care about him. He reports sleeping and eating well. He denies VH/AH. He does not appear internally preoccupied. When discussing nature of suicidal reports, pt does admit that it has become a way of asking for help- re: being admitted to inpatient psychiatric units- but not always a reflection of true suicidally. He states I guess that's not very adaptive. He reports he did not follow up with referral to do PHP. He also admits that when he was discharged from this unit, he could have check in with his OP psychotherapist but instead he decided to go back to the hospital. He reports taking medications as prescribed. No side effects noted. Past Psychiatric History: Inpatient: [facility] [place]07[place]; [facility] 07/07-08/11/21, 2019 M5 OP: Geovanna Davis, AYANNA; Blaire Vo ([phone]) therapist.? Suicide attempts: pt reports tried to drown self back (filled tub) in 2019 but called crisis Past trials: Medical Evaluation Reviewed: Yes HOSPITAL COURSE On the unit, Mr. Smith was admitted on a CV-3day and placed on 15 minutes checks for safety. On the unit, he denied suicidal or homicidal ideation. He did admit that at times suicidal reports were way of soliciting help rather than actual reflection of intent or plan to harm self. He endorsed feeling lonely, helpless. However, he reported that he was looking forward to do gardening, and seeing friends. He states he is sleeping and eating well. He reports current medications were are helpful. He denied VH/AH. He did not appear internally preoccupied. He was visible in the unit, attended all assigned groups. There were no disruptive behaviors nor use of restraints. Time spent discussing smoking cessation with patient: 3 to 10 minutes Status at Discharge Cognitive/behavioral status at discharge: Pt with brighter affect, non labile. No SI/HI. No signs of aggression towards self or others. Future oriented as evident as looking forward to continue OP psych tx and see friends. Functional status at discharge: independent ambulation Overall status at discharge: patient is progressing back to baseline Time Spent with Patient Time attestation: Total time spent providing and/or coordinating discharge services: Time spent: Greater than 30 minutes Discharge Plan Discharge Patient Disposition: Home, Self-Care Discharge Diagnosis: MDD, recurrent, moderate PD Referrals: Blaire Vo (therapists) [Other] - 08/19/21 5:00 pm (Appt scheduled for , 08/19/21 @ 5 PM via TELEHEALTH) Dr. Geovanna Davis (psychiatrists) [Other] - 08/27/21 11:00 am (Appt scheduled for August 27, 2021 11 AM Virtual ) Scott Quiroz MD [Primary Care Provider] - 1 Week Discharge Medications: New olanzapine 5 mg Tablet 5 mg PO BEDTIME Qty: 15 0RF amitriptyline 50 mg Tablet 50 mg PO BEDTIME Qty: 0 0RF lorazepam 0.5 mg Tablet 0.5 mg PO BID@0900,1700 Qty: 30 0RF lorazepam 0.5 mg Tablet 0.25 mg PO DAILY PRN (Reason: anxiety) Qty: 15 0RF buspirone 10 mg Tablet 10 mg PO BID Qty: 0 0RF escitalopram oxalate 5 mg Tablet 15 mg PO DAILY Qty: 0 0RF Continued amitriptyline 50 mg Tablet 50 mg PO BEDTIME 30 Days Qty: 30 0RF escitalopram oxalate 10 mg tablet 15 mg PO DAILY 30 Days Qty: 45 0RF Myrbetriq 50 mg Tablet Extended Release 24 Hr 50 mg PO DAILY@1700 30 Days Qty: 30 0RF zolpidem 10 mg tablet 1 tab PO BEDTIME 30 Days Qty: 30 0RF cholecalciferol (vitamin D3) [Vitamin D3] 125 mcg (5,000 unit) Tablet 125 mcg PO DAILY 0RF Discontinued pantoprazole 40 mg tablet,delayed release (DR/EC) 1 tab PO DAILY 0RF olanzapine 5 mg Tablet 5 mg PO BEDTIME 30 Days Qty: 30 0RF lorazepam [Ativan] 0.5 mg tablet 0.5 mg PO BID 0RF buspirone 20 mg PO DAILY 0RF hydroxyzine HCl 50 mg Tablet 50 mg PO QID PRN (Reason: Anxiety) 0RF Discharge Orders: Discharge Order (Routine); Ordered 08/19/21 Ordered By: Lucinda Platt Diet: regular diet Activity on Discharge: As tolerated Stand Alone Forms: Patient Portal Discharge page Care Plan Goals: 1. Maintain mood 2. No SI/HI Health Concerns: Follow up with PCP Plan of Treatment: 1. Take medications as prescribed 2. Go to nearest ED or call 911 in event of emergency Assessment: Pt with bright affect, non labile, future oriented, looking forward to return home, continue OP psych tx. No SI/HI. No signs of aggression towards self or others.
[2021-08-19] MEDS: Mirabegron 50 MG TAB.ER.24H PO (09:30)
[2021-08-19] MEDS: LORazepam 0.5 MG TABLET PO (09:30)
[2021-08-19] MEDS: busPIRone HCl 10 MG TABLET PO (09:30)
[2021-08-19] MEDS: Escitalopram Oxalate 5 MG TABLET 15 MG PO (09:30)
--- NOTE | 2021-08-19 10:47 | PC.NURSE ---
pt is alert and oriented x4, calm, pleasant and cooperative. Vital signs this morning appear within normal limits. pt appears hemodynamically stable. pt continues to be independent ADLs, is medication compliant. pt eating and drinking adequately, offered no complaints at this time. pt ambulates independently. pt aware of discharge today; discharge materials provided to pt and also to providers. Discharge education was also provided and pt verbalized understanding. Hospital will provide transportation from hospital to home.
--- NOTE | 2021-08-19 10:49 | PC.NURSE ---
discharge note: pt is alert and oriented x4, calm, pleasant and cooperative. Vital signs this morning appear within normal limits. pt appears hemodynamically stable. pt continues to be independent ADLs, is medication compliant. pt eating and drinking adequately, offered no complaints at this time. pt ambulates independently. pt aware of discharge today; discharge materials provided to pt and also to providers. Discharge education was also provided and pt verbalized understanding. pt denies SI/HI/AVH. Hospital will provide transportation from hospital to home.
[2021-08-19] MEDS: LORazepam 0.5 MG TABLET 0.25 MG PO (13:25)
== END 2021-08-19 13:46 | disposition home or self-care (01) | DRG 885 ==
PROVIDERS: Registered Nurse; Admitting Provider Psychiatry & Neurology Psychiatry; PCP Internal Medicine; Visit Provider Social Worker
DX: F33.1 Major depressive disorder, recurrent, moderate (principal); R45.851 Suicidal ideations; M31.30 Wegener's granulomatosis without renal involvement; K21.9 Gastro-esophageal reflux disease without esophagitis; F60.7 Dependent personality disorder; F64.0 Transsexualism; Z87.891 Personal history of nicotine dependence; Z91.51 Personal history of suicidal behavior; Z79.899 Other long term (current) drug therapy
CPT/HCPCS: 36415; 80061; 82607; 82746; 83036; 83735; 84439; 84443

== ENCOUNTER 2022-01-22 18:53 | Emergency (ER) | payer MEDICARE, SELFPAY ==
--- NOTE | ~2022-01-22 | CT_ITS ---
EXAMINATION: CT HEAD WITHOUT CONTRAST CT FACIAL BONES WITHOUT CONTRAST CLINICAL INFORMATION: Fall. Head strike. Chin pain. COMPARISON: None available. TECHNIQUE: Imaging was performed from the skull base to vertex without intravenous administration of contrast. In addition, helical noncontrast CT imaging was acquired through the cervical spine and facial bones and source images were reviewed along with axial reconstructions and sagittal and coronal MPRs. This CT examination was performed using dose optimization techniques as appropriate, variously including the following: *Automated exposure control. *Adjustment of mA and/or kV according to patient size (this includes techniques or standardized protocols for targeted exams where dose is matched to indication/reason for exam; i.e. extremities or head). *Use of iterative reconstruction technique. DLP: 985 mGy-cm FINDINGS: Head: There is no evidence of acute intracranial hemorrhage or edematous territorial infarction. A few foci of hypoattenuation in the periventricular and deep white matter are consistent with mild microangiopathy. [place]-white matter differentiation is preserved. Proportional prominence of the ventricles and sulcal spaces. No evidence for obstructive hydrocephalus. No abnormal mass effect or midline shift. No extra-axial fluid collections. No acute soft tissue or osseous abnormalities. The mastoid air cells and middle ear cavities remain well aerated. Maxillofacial Bones: Mild soft tissue edema of the lower lip. There are small radiopaque structures within the soft tissues of the lower lip potentially representing radiopaque foreign bodies versus soft tissue calcifications. No additional significant soft tissue abnormalities of the soft tissues of the face. No discrete drainable fluid collection. No evidence of maxillofacial bone fractures. The zygomatic arches remain intact. No nasal bone fracture. Mild leftward nasal septal deviation. No evidence of mandibular or maxillary fracture. The mandibular condyles remain well-seated in their respective temporal articular grooves. Moderate degenerative arthropathy of the left temporomandibular joint. Normal appearance of the intraconal and extraconal fat. No evidence of traumatic injury to the extraocular musculature or globes. Complete opacification of an atelectatic right maxillary sinus. Mild mucosal thickening of the remaining paranasal sinuses. No layering fluid collections. CT/CT facial bones wo IV con IMPRESSION: 1. No evidence of acute intracranial hemorrhage or edematous territorial infarction. 2. No evidence of maxillofacial bone fracture. 3. Mild soft tissue edema of the lower lip. Small radiopaque bodies within the soft tissues of the lower lip may represent radiopaque foreign bodies versus soft tissue calcifications. 4. Complete opacification of atelectatic right maxillary sinus.
--- NOTE | ~2022-01-22 | XR_ITS ---
EXAMINATION: XR WRIST, RIGHT CLINICAL INFORMATION: Pain. Fall. COMPARISON: None TECHNIQUE: Four views of the right wrist. FINDINGS: Bone alignment is normal. No fracture or dislocation is seen. The joint spaces are normal. Soft tissues are normal. XR/XR wrist RT 2V IMPRESSION: Unremarkable exam.
--- NOTE | ~2022-01-22 | XR_ITS ---
EXAMINATION: XR KNEE, RIGHT CLINICAL INFORMATION: Fall. Pain. COMPARISON: None TECHNIQUE: Four views of the right knee. FINDINGS: Bone alignment is normal. No fracture or dislocation is seen. There are mild degenerative changes of the patellofemoral and femoral tibial joints with small osteophytes. There is no joint effusion. XR/XR knee RT 3V IMPRESSION: No fracture or dislocation. Mild degenerative changes.
[2022-01-22 19:56] VITALS: BP 136/49; PULSE 64; RESP 20; TEMP 36.4; O2SAT 98; BMI 32.1
--- NOTE | 2022-01-22 21:29 | ECG_ITS ---
Test Reason : sanabl Blood Pressure : / mmHG Vent. Rate : 059 BPM Atrial Rate : 059 BPM P-R Int : 160 ms QRS Dur : 072 ms QT Int : 460 ms P-R-T Axes : 020 005 067 degrees QTc Int : 455 ms Sinus bradycardia Low voltage QRS Nonspecific ST abnormality Abnormal ECG When compared with ECG of 22-JUN-2021 12:50, No significant change was found Referred By: Paula Clark Electronically Signed By:TIMO ALVARADO
--- NOTE | 2022-01-22 21:53 | ED.FALL ---
HPI - Fall General Chief Complaint: Fall Stated Complaint: ffell laceration on lip Time Seen by Provider: 01/22/22 21:14 Source: patient Mode of arrival: ambulatory Limitations: no limitations History of Present Illness HPI Narrative: 71-year-old male history of dependent personality disorder, major depression, GERD, granulomatosis with polyangiitis presenting to the emergency department status post trip and fall, patient tells me he was walking, was on an uneven surface, fell forward landing on his right hand, right knee, he tells me he hit his face on concrete and is now having chin pain, he tells me he has a laceration on his chin he is concerned about. He reports severe pain to his chin/mandible area, this happened just prior to his arrival to the emergency department. Patient is not currently on blood thinners, no loss of consciousness. Denies chest pain, shortness of breath, headache, vision changes, nausea, vomiting, abdominal pain, weakness. MD complaint: fall Related Data Home Medications Medication Instructions Recorded Confirmed cholecalciferol (vitamin D3) 125 125 mcg PO DAILY 08/16/21 08/16/21 mcg (5,000 unit) tablet (Vitamin D3) Previous Rx's Medication Instructions Recorded amitriptyline 50 mg tablet 50 mg PO BEDTIME 30 days #30 tabs 07/06/21 escitalopram oxalate 10 mg tablet 15 mg PO DAILY 30 days #45 tabs 07/06/21 mirabegron 50 mg tablet,extended 50 mg PO DAILY@1700 30 days #30 07/06/21 release 24 hr (Myrbetriq) tabs zolpidem 10 mg tablet 1 tab PO BEDTIME 30 days #30 tabs 07/06/21 amitriptyline 50 mg tablet 50 mg PO BEDTIME #0 tabs 08/18/21 buspirone 10 mg tablet 10 mg PO BID #0 tabs 08/18/21 escitalopram oxalate 5 mg tablet 15 mg PO DAILY #0 tabs 08/18/21 lorazepam 0.5 mg tablet 0.25 mg PO DAILY PRN anxiety #15 08/18/21 tabs lorazepam 0.5 mg tablet 0.5 mg PO BID@0900,1700 #30 tabs 08/18/21 olanzapine 5 mg tablet 5 mg PO BEDTIME #15 tabs 08/18/21 clindamycin HCl 300 mg capsule 300 mg PO TID 7 days #21 caps 01/23/22 Allergies Allergy/AdvReac Type Severity Reaction Status Date / Time ciprofloxacin [From CIPRO] Allergy Unknown DIARRHEA Verified 01/22/22 20:00 Review of Systems Review of Systems: Constitutional : No Weight loss, No Fever, No Chills, No Fatigue, No Malaise ENT/Mouth : No sore throat, No Rhinorrhea Eyes: No Eye Pain, No Swelling, No Redness Cardiovascular : No Chest Pain, No SOB, No Dyspnea on Exertion, No Orthopnea, No Edema, No Palpitations Respiratory : No Cough, No Sputum, No Wheezing Gastrointestinal : No Nausea, No Vomiting, No Diarrhea, No Constipation, No abdominal Pain, No Hematochezia, No Melena Genitourinary : No Dysuria, No Urinary Frequency, No Hematuria, Musculoskeletal : + joint pain, No Myalgias, No Joint Swelling Skin : No Skin Lesions, No rash Neuro : No Weakness, No Numbness, No Dizziness, No Headache Psych : No Anxiety/Panic, No Depression All other systems reviewed and are negative Yes all other systems are reviewed and are negative COUNTS INCLUDE 234 BEDS AT THE [facility] Past Medical History Attestation statement: The following information was validated with the patient. Source: old records reviewed Medical History Hard of hearing Tracheal stenosis Transgender Family History Family History Father Heart disease Social History Social History Household Members: None Housing: House Do you presently have visiting nurse or other home services: Yes (For medication management. Joie Mohamud) Patient Tobacco Use Status: Former Tobacco user Quit Date: Quit in 20s. Tobacco use type: Cigarette Years Smoked: 10 e-Cigarette/Vaping Use: Never Used Second Hand Smoke Exposure: No Advance Directives: No Advance Directives Information Provided: Yes service: No Physical Exam Vital Signs: Vital Signs: Last Vital Signs Temp 97.7 F 01/22/22 22:37 Pulse 67 01/22/22 22:37 Resp 16 01/22/22 22:37 BP 114/63 01/22/22 22:37 Pulse Ox 96 01/22/22 22:37 O2 Del Method 01/22/22 22:37 BMI result Body Mass Index 32.1 vss Appearance: Alert.? Oriented X3.? No acute distress.? Head: Normocephalic, atraumatic, no step-offs or deformities Eyes: Pupils equal, round and reactive to light.? Extraocular movements intact. ENT: Pharynx normal.?+ patient with a chipped front upper tooth. Small abrasion to chin, not bleeding. Patient has pain with mastication and pain in the jaw and chin + internal laceration 3 cm to lower inner lip. Neck: Normal inspection.? Neck supple.? CVS: Normal heart rate and rhythm.? Pulses normal.? Respiratory: No respiratory distress.? Breath sounds normal.? Abdomen: Soft and nontender.? Skin: Skin warm and dry.? Normal skin color.? Normal skin turgor.? Extremities: No lower extremity edema.? No calf ttp. 5/5 strength to bilateral upper and lower extremities + there is some ecchymosis to the right wrist with slight edema however full range of motion, 2+ radial pulses equal and bilateral. Bilateral knees a full range of motion, 2+ patellar pulses equal bilateral, no footdrop bilaterally, Patient ambulating with steady gait normal coordination. Back: No midline tenderness, no C-spine tenderness, full range of motion, no CVA tenderness bilaterally Neuro: Oriented X 3.? No motor deficit.? No sensory deficit. CN 2-12 intact Course Reevaluation(s) Reevaluation #1: CBC with no acute findings, chemistry with no acute electrolyte abnormalities requiring intervention. Troponin negative, EKG nonischemic unlikely ACS. Pending CT of facial bones, head. Time: 23:17 Reevaluation #2: CT of the head with no intracranial hemorrhage,, no maxillofacial bone fractures, there is mild soft tissue edema to the lower lip, CT reading is small radiopaque foreign bodies within soft tissues, explored area and was able to remove a small tooth fragment from lower lip, patient tollerated procedure well. Dr. Anderson at bedside for assistance no comlications 3 5-0 disolvable internal sutures placed to inner lip laceration. I a discussed CT results with patient advised him to follow-up with PCP and return with new or worsening symptoms, educated on post concussive syndrome. At this time I feel comfortable with discharge with prompt PCP follow-up. Worrisome signs and symptoms were outlined on patient's discharge Patient tells me he is allergic to amoxicillin therefore clindamycin will be started on this patient for infection prophylaxis, outlined side effects of antibiotics on patient's discharge, advised to seek medical help if any of these side effects arise. Time: 23:40 MDM - Fall MDM Narrative Medical decision making narrative: 2129 71-year-old male presents status post trip and fall reporting right wrist, and knee pain and chin pain as well as a small abrasion to the chin. Fall happened prior to arrival, appears to be mechanical fall, denies preceding symptoms. Not on blood thinners. Physical examination with an abrasion to the chin and pain with mastication and pain in the mandible/chin area. Regular rate and rhythm, lungs clear, neuro exam nonfocal, cerebellar function intact. Patient ambulating steady gait, following commands. No distracting injuries. There is ecchymosis and slight edema to the right wrist. Normal bilateral knees with full range of motion. No evidence of acute ligament or tendon injury. Unlikely that this is a mandible fracture. Obtain a CT of the head, facial bones. Will also obtain an EKG and troponin although I suspect this was a mechanical fall based off patient's story. Medical Records Attestation: I reviewed the patient's medical records. Lab Data Attestation: I reviewed the patient's lab results. Result diagrams: 01/22/22 22:15 01/22/22 22:15 Labs: Lab Results 01/22/22 01/22/22 01/22/22 Range/Units 22:15 22:15 22:15 WBC 6.4 (4.8-10.8) X10*3/uL RBC 3.56 L (4.60-5.80) X10*6/uL Hgb 11.1 L (14.0-18.0) g/dl Hct 33.5 L (42.0-52.0) % MCV 94.1 (80.0-98.0) fL MCH 31.2 (27.0-33.0) pg MCHC 33.1 (31.0-36.0) g/dl RDW 13.0 (11.0-16.0) % Plt Count 210 (160-400) X10*3/uL MPV 10.8 (9.4-12.4) fL Immature Gran % (Auto) 0.3 (0.0-0.4) % Neut % (Auto) 69.9 (45-73) % Lymph % (Auto) 18.5 L (20-40) % [place] % (Auto) 10.0 (2-11) % Eos % (Auto) 0.8 (0-4) % Baso % (Auto) 0.5 (0-2) % Lymph # (Auto) 1.2 (1.2-4.9) X10*3/uL [place] # (Auto) 0.6 (0.1-1.2) X10*3/uL Eos # (Auto) 0.1 (0.0-0.4) X10*3/uL Baso # (Auto) 0.0 (0.0-0.2) X10*3/uL Abs Immat Gran (auto) 0.02 (0.00-0.03) X10*3/uL Absolute Neuts (auto) 4.5 (2.0-8.3) x10*3/uL Absolute Nucleated RBC 0.000 (0.0-0.012) X10*3/uL Nucleated RBC % (auto) 0.0 (0.0-0.2) /100WBC Sodium 142 (135-145) mmol/L Potassium 4.3 (3.3-5.1) mmol/L Chloride 109 H (96-108) mmol/L Carbon Dioxide 19 L (22-29) mmol/L Anion Gap 18 (12-20) BUN 11 (9-16) mg/dL Creatinine 0.87 (0.5-1.4) mg/dL Estim Creat Clear Calc 61.7 Estimated GFR > 60 Random Glucose 100 (60-115) mg/dL Calcium 8.8 D (8.4-10.2) mg/dL Total Bilirubin 0.2 (0.0-1.0) mg/dL AST 24 D (5-37) U/L ALT 15 (0-40) U/L Alkaline Phosphatase 91 (39-117) U/L Troponin I High Sens < 3.5 (<3.5-35.0) ng/L Total Protein 6.2 L (6.5-8.0) g/dL Albumin 4.1 (3.5-5.0) g/dL ECG Data Attestation: I personally reviewed and interpreted this ECG as follows: ECG interpretation date: 01/22/22 ECG interpretation time: 21:57 Prior ECG tracings: available for review Interpretation: Ventricular rate of 59, NE normal, QRS normal, QT/QTC normal. EKG with sinus bradycardia, low voltage QRS, no ST elevations or inversions concerning for ischemia. No significant changes when compared to EKG of 06/22/2021. Critical Care Time Critical Care Time Critical Care Time: No Discharge Plan Discharge Clinical Impression: Fall, Closed head injury, Concussion, Pain in wrist, Acute knee pain, Abrasion, chin w/o infection, Broken tooth Patient Disposition: Home, Self-Care Instructions: Concussion (ED), Fall Prevention for Older Adults (ED), Head Injury (ED), Knee Pain (ED), Post Concussion Syndrome (ED), Fall Prevention (ED) Additional Instructions: Take your medications as prescribed. If you were prescribed antibiotics today, it is important that you take your medication to their entirety, do not skip any doses, do not finish them early. Follow-up with your primary care provider this week. Return to the emergency department with new or worsening symptoms. Such as fevers, chills, chest pain, shortness of breath, nausea, vomiting, dizziness, headache, vision changes, lethargy In case of emergency call 911 A small tooth fragment was removed from the laceration from the inner lip. Please gargle with salt water gargles 3 to 4 times a day. Please follow-up with a dentist. Clindamycin is an antibiotic that was sent to your pharmacy to help prevent infection, this antibiotic can cause diarrhea, C diff, GI upset, if any of these symptoms arise please stop it and see a healthcare professional. XR/XR wrist RT 2V IMPRESSION: Unremarkable exam. XR/XR knee RT 3V IMPRESSION: No fracture or dislocation. Mild degenerative changes. CT/CT facial bones wo IV con IMPRESSION: 1. No evidence of acute intracranial hemorrhage or edematous territorial infarction. ? 2. No evidence of maxillofacial bone fracture. ? 3. Mild soft tissue edema of the lower lip. Small radiopaque bodies within the soft tissues of the lower lip may represent radiopaque foreign bodies versus soft tissue calcifications. ? 4. Complete opacification of atelectatic right maxillary sinus. Prescriptions: New clindamycin HCl 300 mg capsule 300 mg PO TID 7 Days Qty: 21 0RF No Action amitriptyline 50 mg Tablet 50 mg PO BEDTIME 30 Days Qty: 30 0RF escitalopram oxalate 10 mg tablet 15 mg PO DAILY 30 Days Qty: 45 0RF Myrbetriq 50 mg Tablet Extended Release 24 Hr 50 mg PO DAILY@1700 30 Days Qty: 30 0RF zolpidem 10 mg tablet 1 tab PO BEDTIME 30 Days Qty: 30 0RF cholecalciferol (vitamin D3) [Vitamin D3] 125 mcg (5,000 unit) Tablet 125 mcg PO DAILY olanzapine 5 mg Tablet 5 mg PO BEDTIME Qty: 15 0RF amitriptyline 50 mg Tablet 50 mg PO BEDTIME Qty: 0 0RF lorazepam 0.5 mg Tablet 0.5 mg PO BID@0900,1700 Qty: 30 0RF lorazepam 0.5 mg Tablet 0.25 mg PO DAILY PRN (Reason: anxiety) Qty: 15 0RF buspirone 10 mg Tablet 10 mg PO BID Qty: 0 0RF escitalopram oxalate 5 mg Tablet 15 mg PO DAILY Qty: 0 0RF Referrals: Scott Quiroz MD [Primary Care Provider] - 2 days
[2022-01-22 22:21] LABS: MANUAL DIFF FLAG NO
[2022-01-22 22:22] LABS: Basophils Percent Auto 0.5 % (0-2); Eosinophils Absolute Auto 0.1 X10*3/uL (0.0-0.4); Eosinophils Percent Auto 0.8 % (0-4); Hematocrit 33.5 % (42.0-52.0); Hemoglobin 11.1 g/dl (14.0-18.0); Imm Gran Abs Auto 0.02 X10*3/uL (0.00-0.03); Imm Gran Pct Auto 0.3 % (0.0-0.4); Lymphocytes Absolute Auto 1.2 X10*3/uL (1.2-4.9); Lymphocytes Percent Auto 18.5 % (20-40); Mean Corpuscular HGB Conc 33.1 g/dl (31.0-36.0); Mean Corpuscular Hemoglobin 31.2 pg (27.0-33.0); Mean Corpuscular Volume 94.1 fL (80.0-98.0); Mean Platelet Volume 10.8 fL (9.4-12.4); Monocytes Absolute Auto 0.6 X10*3/uL (0.1-1.2); Neutrophils Absolute Auto 4.5 x10*3/uL (2.0-8.3); Neutrophils Percent Auto 69.9 % (45-73); Platelet Count 210 X10*3/uL (160-400); Red Blood Count 3.56 X10*6/uL (4.60-5.80); White Blood Count 6.4 X10*3/uL (4.8-10.8)
[2022-01-22 22:25] VITALS: BP 154/78; PULSE 88; O2SAT 99
[2022-01-22 22:37] VITALS: BP 114/63; PULSE 67; RESP 16; TEMP 36.5; O2SAT 96
[2022-01-22 22:37] LABS: Alanine Aminotransferase 15 U/L (0-40); Albumin Level 4.1 g/dL (3.5-5.0); Alkaline Phosphatase 91 U/L (39-117); Anion Gap 18 (12-20); Aspartate Amino Transferase 24 U/L (5-37); Bilirubin Total 0.2 mg/dL (0.0-1.0); Blood Urea Nitrogen 11 mg/dL (9-16); Calcium 8.8 mg/dL (8.4-10.2); Carbon Dioxide 19 mmol/L (22-29); Chloride 109 mmol/L (96-108); Creatinine Clr Calc Pharmacy 61.7; Estimated Glomerular Filt Rate > 60; Glucose Random 100 mg/dL (60-115); Potassium 4.3 mmol/L (3.3-5.1); Sodium 142 mmol/L (135-145); Total Protein 6.2 g/dL (6.5-8.0)
[2022-01-22 22:45] LABS: Troponin-I High Sensitivity < 3.5 ng/L (<3.5-35.0)
--- NOTE | 2022-01-22 23:11 | PC.NURSE ---
Triage under wrong pt. Unable to delete/ undo.
== END 2022-01-23 00:40 | disposition home or self-care (01) ==
PROVIDERS: Physician Assistant; Emergency Provider Emergency Medicine Emergency Medical Services; PCP Internal Medicine
DX: S06.0X0A Concussion without loss of consciousness, initial encounter (principal); S01.511A Laceration without foreign body of lip, initial encounter; S00.81XA Abrasion of other part of head, initial encounter; S60.211A Contusion of right wrist, initial encounter; S02.5XXA Fracture of tooth (traumatic), initial encounter for closed fracture; W10.1XXA Fall (on)(from) sidewalk curb, initial encounter; M25.561 Pain in right knee; Y93.01 Activity, walking, marching and hiking; Y92.480 Sidewalk as the place of occurrence of the external cause; Y99.9 Unspecified external cause status
CPT/HCPCS: 12011; 36415; 70450; 70486; 73100; 73562; 80053; 84484; 85025; 93005; 99284

== ENCOUNTER 2022-06-20 13:29 | Inpatient (IN) | payer MEDICARE, SELFPAY ==
--- NOTE | 2022-06-20 13:44 | ED.PSYCH ---
HPI - Psych General Chief Complaint: Psychiatric Symptoms Stated Complaint: crisis Time Seen by Provider: 06/20/22 14:50 Related Data Home Medications Medication Instructions Recorded Confirmed cholecalciferol (vitamin D3) 125 125 mcg PO DAILY 08/16/21 08/16/21 mcg (5,000 unit) tablet (Vitamin D3) Previous Rx's Medication Instructions Recorded amitriptyline 50 mg tablet 50 mg PO BEDTIME 30 days #30 tabs 07/06/21 escitalopram oxalate 10 mg tablet 15 mg PO DAILY 30 days #45 tabs 07/06/21 mirabegron 50 mg tablet,extended 50 mg PO DAILY@1700 30 days #30 07/06/21 release 24 hr (Myrbetriq) tabs zolpidem 10 mg tablet 1 tab PO BEDTIME 30 days #30 tabs 07/06/21 amitriptyline 50 mg tablet 50 mg PO BEDTIME #0 tabs 08/18/21 buspirone 10 mg tablet 10 mg PO BID #0 tabs 08/18/21 escitalopram oxalate 5 mg tablet 15 mg PO DAILY #0 tabs 08/18/21 lorazepam 0.5 mg tablet 0.25 mg PO DAILY PRN anxiety #15 08/18/21 tabs lorazepam 0.5 mg tablet 0.5 mg PO BID@0900,1700 #30 tabs 08/18/21 olanzapine 5 mg tablet 5 mg PO BEDTIME #15 tabs 08/18/21 clindamycin HCl 300 mg capsule 300 mg PO TID 7 days #21 caps 01/23/22 Allergies Allergy/AdvReac Type Severity Reaction Status Date / Time ciprofloxacin [From CIPRO] Allergy Unknown DIARRHEA Verified 01/22/22 20:00 [facility] Past Medical History Medical History Hard of hearing Tracheal stenosis Transgender Family History Family History Father Heart disease Social History Social History Household Members: None Housing: House Do you presently have visiting nurse or other home services: Yes (For medication management. Montanamaxim Mohamud) Alcohol intake: never Patient Tobacco Use Status: Never used Tobacco Tobacco use type: Cigarette Years Smoked: 10 e-Cigarette/Vaping Use: Never Used Second Hand Smoke Exposure: No Advance Directives: No Advance Directives Information Provided: No service: No Physical Exam Vital Signs: Vital Signs: Last Vital Signs Temp 97.8 F 06/20/22 14:00 Pulse 105 H 06/20/22 14:00 Resp 20 06/20/22 14:00 BP 143/73 H 06/20/22 14:00 Pulse Ox 96 06/20/22 14:00 O2 Del Method 06/20/22 14:00 BMI result Body Mass Index 30.1 Course Course Course Narrative: This is rapid medical exam. Deferred additional HPI, ROS, PE to primary provider. 71 year-old transgender female to male with hx of MDD, GERD here with complaints of 2 weeks of increasing depression, feels like he has access to sleeping pills and has been perseverating on taking these pills as an overdose. NO HI. NO AVH. 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 Followed by Geovanna Lozano APRN, also sees therapist (Blaire). No recent medication changes. Two close friends moved recently to [place] and patient feels grief and loss with this. Also recent medical procedure which patient feels triggered him. Will order labs, GOVEA. VSS Medical Decision Making Lab Data 06/20/22 15:52 06/20/22 15:02 Labs: Lab Results 06/20/22 06/20/22 06/20/22 Range/Units 15:02 15:02 15:52 WBC 6.1 (4.8-10.8) X10*3/uL RBC 4.24 L (4.60-5.80) X10*6/uL Hgb 13.3 L (14.0-18.0) g/dl Hct 40.4 L D (42.0-52.0) % MCV 95.3 (80.0-98.0) fL MCH 31.4 (27.0-33.0) pg MCHC 32.9 (31.0-36.0) g/dl RDW 13.4 (11.0-16.0) % Plt Count 242 (160-400) X10*3/uL MPV 11.3 (9.4-12.4) fL Immature Gran % (Auto) 0.3 (0.0-0.4) % Neut % (Auto) 68.6 (45-73) % Lymph % (Auto) 18.1 L (20-40) % [place] % (Auto) 12.2 H (2-11) % Eos % (Auto) 0.3 (0-4) % Baso % (Auto) 0.5 (0-2) % Lymph # (Auto) 1.1 L (1.2-4.9) X10*3/uL [place] # (Auto) 0.7 (0.1-1.2) X10*3/uL Eos # (Auto) 0.0 (0.0-0.4) X10*3/uL Baso # (Auto) 0.0 (0.0-0.2) X10*3/uL Abs Immat Gran (auto) 0.02 (0.00-0.03) X10*3/uL Absolute Neuts (auto) 4.2 (2.0-8.3) x10*3/uL Absolute Nucleated RBC 0.000 (0.0-0.012) X10*3/uL Nucleated RBC % (auto) 0.0 (0.0-0.2) /100WBC Sodium 146 H (135-145) mmol/L Potassium 4.5 (3.3-5.1) mmol/L Chloride 110 H (96-108) mmol/L Carbon Dioxide 23 (22-29) mmol/L Anion Gap 18 (12-20) BUN 14 (9-16) mg/dL Creatinine 1.02 (0.5-1.4) mg/dL Estim Creat Clear Calc 60.1 Estimated GFR > 60 Random Glucose 94 (60-115) mg/dL Calcium 9.5 D (8.4-10.2) mg/dL Total Bilirubin 0.3 (0.0-1.0) mg/dL Direct Bilirubin < 0.2 (0.0-0.5) mg/dL AST 23 (5-37) U/L ALT 15 (0-40) U/L Alkaline Phosphatase 98 (39-117) U/L Total Protein 6.6 (6.5-8.0) g/dL Albumin 4.5 (3.5-5.0) g/dL Salicylates < 5.0 L (15-30) mg/dL Urine Opiates Screen (Not Detect) Urine Fentanyl Screen (Not Detect) Acetaminophen < 17 (<30) mcg/mL Ur Barbiturates Screen (Not Detect) Ur Phencyclidine Scrn (Not Detect) Ur Amphetamines Screen (Not Detect) U Benzodiazepines Scrn (Not Detect) Urine Cocaine Screen (Not Detect) U Marijuana (THC) Screen (Not Detect) Ethyl Alcohol < 10 mg/dL COVID-19 ([facility]) Negative (Negative) COVID-19 Clin Com See Note 06/20/22 Range/Units 16:12 WBC (4.8-10.8) X10*3/uL RBC (4.60-5.80) X10*6/uL Hgb (14.0-18.0) g/dl Hct (42.0-52.0) % MCV (80.0-98.0) fL MCH (27.0-33.0) pg MCHC (31.0-36.0) g/dl RDW (11.0-16.0) % Plt Count (160-400) X10*3/uL MPV (9.4-12.4) fL Immature Gran % (Auto) (0.0-0.4) % Neut % (Auto) (45-73) % Lymph % (Auto) (20-40) % [place] % (Auto) (2-11) % Eos % (Auto) (0-4) % Baso % (Auto) (0-2) % Lymph # (Auto) (1.2-4.9) X10*3/uL [place] # (Auto) (0.1-1.2) X10*3/uL Eos # (Auto) (0.0-0.4) X10*3/uL Baso # (Auto) (0.0-0.2) X10*3/uL Abs Immat Gran (auto) (0.00-0.03) X10*3/uL Absolute Neuts (auto) (2.0-8.3) x10*3/uL Absolute Nucleated RBC (0.0-0.012) X10*3/uL Nucleated RBC % (auto) (0.0-0.2) /100WBC Sodium (135-145) mmol/L Potassium (3.3-5.1) mmol/L Chloride (96-108) mmol/L Carbon Dioxide (22-29) mmol/L Anion Gap (12-20) BUN (9-16) mg/dL Creatinine (0.5-1.4) mg/dL Estim Creat Clear Calc Estimated GFR Random Glucose (60-115) mg/dL Calcium (8.4-10.2) mg/dL Total Bilirubin (0.0-1.0) mg/dL Direct Bilirubin (0.0-0.5) mg/dL AST (5-37) U/L ALT (0-40) U/L Alkaline Phosphatase (39-117) U/L Total Protein (6.5-8.0) g/dL Albumin (3.5-5.0) g/dL Salicylates (15-30) mg/dL Urine Opiates Screen Not Detected (Not Detect) Urine Fentanyl Screen Not Detected (Not Detect) Acetaminophen (<30) mcg/mL Ur Barbiturates Screen Not Detected (Not Detect) Ur Phencyclidine Scrn Not Detected (Not Detect) Ur Amphetamines Screen Not Detected (Not Detect) U Benzodiazepines Scrn Not Detected (Not Detect) Urine Cocaine Screen Not Detected (Not Detect) U Marijuana (THC) Screen Not Detected (Not Detect) Ethyl Alcohol mg/dL COVID-19 ([facility]) (Negative) COVID-19 Clin Com Discharge Plan Discharge Clinical Impression: Major depressive disorder, Dependent personality disorder Prescriptions: No Action amitriptyline 50 mg Tablet 50 mg PO BEDTIME 30 Days Qty: 30 0RF escitalopram oxalate 10 mg tablet 15 mg PO DAILY 30 Days Qty: 45 0RF Myrbetriq 50 mg Tablet Extended Release 24 Hr 50 mg PO DAILY@1700 30 Days Qty: 30 0RF zolpidem 10 mg tablet 1 tab PO BEDTIME 30 Days Qty: 30 0RF cholecalciferol (vitamin D3) [Vitamin D3] 125 mcg (5,000 unit) Tablet 125 mcg PO DAILY olanzapine 5 mg Tablet 5 mg PO BEDTIME Qty: 15 0RF amitriptyline 50 mg Tablet 50 mg PO BEDTIME Qty: 0 0RF lorazepam 0.5 mg Tablet 0.5 mg PO BID@0900,1700 Qty: 30 0RF lorazepam 0.5 mg Tablet 0.25 mg PO DAILY PRN (Reason: anxiety) Qty: 15 0RF buspirone 10 mg Tablet 10 mg PO BID Qty: 0 0RF escitalopram oxalate 5 mg Tablet 15 mg PO DAILY Qty: 0 0RF clindamycin HCl 300 mg capsule 300 mg PO TID 7 Days Qty: 21 0RF Interventions: [place]-Suicide Risk Severity Scale Last Done: 06/20/22 17:24
[2022-06-20 13:47] VITALS: BP 143/73; PULSE 105; RESP 20; TEMP 36.6; O2SAT 98
[2022-06-20 14:00] VITALS: BP 143/73; PULSE 105; RESP 20; TEMP 36.6; O2SAT 96; BMI 30.1
--- NOTE | 2022-06-20 14:04 | PC.NURSE ---
FRIEND JAIRO VU [phone]
--- NOTE | 2022-06-20 15:17 | ED_ITS ---
HPI - Psych General Chief Complaint: Psychiatric Symptoms Stated Complaint: crisis Time Seen by Provider: 06/20/22 14:50 Source: patient Mode of arrival: ambulatory Limitations: no limitations History of Present Illness HPI Narrative: 71-year-old male presents with depressive symptomatology. She has been admitted for psychiatric reasons in the past. Patient reports depression is so severe that over the last 1-2 weeks she has had and avoidance of self-care related hygiene. In addition, she has had some suicidal ideation regarding the pills in her house. Previously, she had a visiting nurse who administers her medications to her. However, since that services been discontinued, she has had increasing concerns about over utilizing her medications. In addition, she has had 2 close friends moved to [place] who she can no longer see on a regular basis. Finally, patient had a recent procedure for her history of tracheal stenosis. She said that 1 poorly and has caused her a lot of distress. Patient brought herself to the emergency department for self-harming concerns in the development of the plan. Patient denies any drug or alcohol abuse. Related Data Home Medications Medication Instructions Recorded Confirmed cholecalciferol (vitamin D3) 125 125 mcg PO DAILY 08/16/21 08/16/21 mcg (5,000 unit) tablet (Vitamin D3) Previous Rx's Medication Instructions Recorded amitriptyline 50 mg tablet 50 mg PO BEDTIME 30 days #30 tabs 07/06/21 escitalopram oxalate 10 mg tablet 15 mg PO DAILY 30 days #45 tabs 07/06/21 mirabegron 50 mg tablet,extended 50 mg PO DAILY@1700 30 days #30 07/06/21 release 24 hr (Myrbetriq) tabs zolpidem 10 mg tablet 1 tab PO BEDTIME 30 days #30 tabs 07/06/21 amitriptyline 50 mg tablet 50 mg PO BEDTIME #0 tabs 08/18/21 buspirone 10 mg tablet 10 mg PO BID #0 tabs 08/18/21 escitalopram oxalate 5 mg tablet 15 mg PO DAILY #0 tabs 08/18/21 lorazepam 0.5 mg tablet 0.25 mg PO DAILY PRN anxiety #15 08/18/21 tabs lorazepam 0.5 mg tablet 0.5 mg PO BID@0900,1700 #30 tabs 08/18/21 olanzapine 5 mg tablet 5 mg PO BEDTIME #15 tabs 08/18/21 clindamycin HCl 300 mg capsule 300 mg PO TID 7 days #21 caps 01/23/22 Allergies Allergy/AdvReac Type Severity Reaction Status Date / Time ciprofloxacin [From CIPRO] Allergy Unknown DIARRHEA Verified 01/22/22 20:00 Review of Systems Review of Systems: Yes all other systems are reviewed and are negative Constitutional: Constitutional: Reports no additional constitutional complaints Eyes: Eyes: Reports no additional eye complaints ENT: Reports system reviewed and no additional complaints, except as documented Cardiovascular: Cardiovascular: Reports no additional cardiovascular complaints Respiratory: Respiratory: Reports no additional respiratory complaints Gastrointestinal: Gastrointestinal: Reports no additional gastrointestinal complaints Genitourinary: Genitourinary: Reports no additional male genitourinary complaints Musculoskeletal: Musculoskeletal: Reports no additional musculoskeletal complaints Integumentary/Breasts: Skin/Breast: Reports system reviewed and no additional complaints, except as docu Neurologic: Reports system reviewed and no additional complaints, except as documented Psychiatric: Psychiatric: Reports as per HPI Endocrine: Endocrine: Reports no additional endocrine complaints Hematologic/Lymphatic: Hematologic/Lymphatic: Reports no additional hematologic/lymphatic complaints Allergic/Immunologic: Allergic/Immunologic: Reports no additional allergic /immunologic complaints [facility] Past Medical History Medical History Hard of hearing Tracheal stenosis Transgender Family History Family History Father Heart disease Social History Social History Household Members: None Housing: House Do you presently have visiting nurse or other home services: Yes (For medication management. Joie Mohamud) Alcohol intake: never Patient Tobacco Use Status: Never used Tobacco Tobacco use type: Cigarette Years Smoked: 10 e-Cigarette/Vaping Use: Never Used Second Hand Smoke Exposure: No Advance Directives: No Advance Directives Information Provided: No service: No Physical Exam Vital Signs: Vital Signs: Last Vital Signs Temp 97.8 F 06/20/22 14:00 Pulse 105 H 06/20/22 14:00 Resp 20 06/20/22 14:00 BP 143/73 H 06/20/22 14:00 Pulse Ox 96 06/20/22 14:00 O2 Del Method 06/20/22 14:00 BMI result Body Mass Index 30.1 Const: General: cooperative, healthy appearing and no acute distress HEENT: Head: Yes normal to inspection Resp: Auscultation: clear to auscultation bilaterally Cardio: Rate: regular rate Rhythm: regular rhythm GI: Palpation (GI): Soft to palpation and nontender Skin: Rashes: no rashes Extrem: General: Yes normal to inspection Psych: Appearance: well kempt Speech and movement: Clear speech present Affect: Blunted affect present Attitude: cooperative Thought process: Normal thought process present Thought content: Suicidality present and Depressive thoughts present Insight: Good insight present (Psych) Judgement: Fair judgement present (Psych) Course Course Course Narrative: 71-year-old male presents for symptoms of depression and possible suicidal ideation. Patient will have crisis evaluation. Lab work will be obtained in or [facility] to assist with medical clearance for possible psychiatric hospitalization. Patient offers no additional medical complaints at this time. Reevaluation(s) Reevaluation #1: patient is medically cleared for psychiatric evaluation and treatment Time: 16:13 Reevaluation #2: Patient awaiting crisis decision regarding disposition. Dr. Mckeon to assume care at this time. Time: 18:18 Medical Decision Making Medical Decision Making [facility] Narrative: 71-year-old male presents with depression, adjustment disorder and possible suicidality. Patient has developed a very basic plan. Differential Diagnosis Differential Diagnoses: The differential diagnosis associated with the presentation includes ( Depression anxiety, adjustment disorder, suicidality, drug abuse) Admission/Observation Consideration of admission/observation: Escalation of care including admission/observation considered Lab Data [facility] Lab Attestation statement: I reviewed the patient's lab results. 06/20/22 15:02 06/20/22 15:02 Labs: Lab Results 06/20/22 06/20/22 06/20/22 Range/Units 15:02 15:02 15:52 WBC 6.1 (4.8-10.8) X10*3/uL RBC 4.24 L (4.60-5.80) X10*6/uL Hgb 13.3 L (14.0-18.0) g/dl Hct 40.4 L D (42.0-52.0) % MCV 95.3 (80.0-98.0) fL MCH 31.4 (27.0-33.0) pg MCHC 32.9 (31.0-36.0) g/dl RDW 13.4 (11.0-16.0) % Plt Count 242 (160-400) X10*3/uL MPV 11.3 (9.4-12.4) fL Immature Gran % (Auto) 0.3 (0.0-0.4) % Neut % (Auto) 68.6 (45-73) % Lymph % (Auto) 18.1 L (20-40) % [place] % (Auto) 12.2 H (2-11) % Eos % (Auto) 0.3 (0-4) % Baso % (Auto) 0.5 (0-2) % Lymph # (Auto) 1.1 L (1.2-4.9) X10*3/uL [place] # (Auto) 0.7 (0.1-1.2) X10*3/uL Eos # (Auto) 0.0 (0.0-0.4) X10*3/uL Baso # (Auto) 0.0 (0.0-0.2) X10*3/uL Abs Immat Gran (auto) 0.02 (0.00-0.03) X10*3/uL Absolute Neuts (auto) 4.2 (2.0-8.3) x10*3/uL Absolute Nucleated RBC 0.000 (0.0-0.012) X10*3/uL Nucleated RBC % (auto) 0.0 (0.0-0.2) /100WBC Sodium 146 H (135-145) mmol/L Potassium 4.5 (3.3-5.1) mmol/L Chloride 110 H (96-108) mmol/L Carbon Dioxide 23 (22-29) mmol/L Anion Gap 18 (12-20) BUN 14 (9-16) mg/dL Creatinine 1.02 (0.5-1.4) mg/dL Estim Creat Clear Calc 60.1 Estimated GFR > 60 Random Glucose 94 (60-115) mg/dL Calcium 9.5 D (8.4-10.2) mg/dL Total Bilirubin 0.3 (0.0-1.0) mg/dL Direct Bilirubin < 0.2 (0.0-0.5) mg/dL AST 23 (5-37) U/L ALT 15 (0-40) U/L Alkaline Phosphatase 98 (39-117) U/L Total Protein 6.6 (6.5-8.0) g/dL Albumin 4.5 (3.5-5.0) g/dL Salicylates < 5.0 L (15-30) mg/dL Urine Opiates Screen (Not Detect) Urine Fentanyl Screen (Not Detect) Acetaminophen < 17 (<30) mcg/mL Ur Barbiturates Screen (Not Detect) Ur Phencyclidine Scrn (Not Detect) Ur Amphetamines Screen (Not Detect) U Benzodiazepines Scrn (Not Detect) Urine Cocaine Screen (Not Detect) U Marijuana (THC) Screen (Not Detect) Ethyl Alcohol < 10 mg/dL COVID-19 ([facility]) Negative (Negative) COVID-19 Clin Com See Note 06/20/22 Range/Units 16:12 WBC (4.8-10.8) X10*3/uL RBC (4.60-5.80) X10*6/uL Hgb (14.0-18.0) g/dl Hct (42.0-52.0) % MCV (80.0-98.0) fL MCH (27.0-33.0) pg MCHC (31.0-36.0) g/dl RDW (11.0-16.0) % Plt Count (160-400) X10*3/uL MPV (9.4-12.4) fL Immature Gran % (Auto) (0.0-0.4) % Neut % (Auto) (45-73) % Lymph % (Auto) (20-40) % [place] % (Auto) (2-11) % Eos % (Auto) (0-4) % Baso % (Auto) (0-2) % Lymph # (Auto) (1.2-4.9) X10*3/uL [place] # (Auto) (0.1-1.2) X10*3/uL Eos # (Auto) (0.0-0.4) X10*3/uL Baso # (Auto) (0.0-0.2) X10*3/uL Abs Immat Gran (auto) (0.00-0.03) X10*3/uL Absolute Neuts (auto) (2.0-8.3) x10*3/uL Absolute Nucleated RBC (0.0-0.012) X10*3/uL Nucleated RBC % (auto) (0.0-0.2) /100WBC Sodium (135-145) mmol/L Potassium (3.3-5.1) mmol/L Chloride (96-108) mmol/L Carbon Dioxide (22-29) mmol/L Anion Gap (12-20) BUN (9-16) mg/dL Creatinine (0.5-1.4) mg/dL Estim Creat Clear Calc Estimated GFR Random Glucose (60-115) mg/dL Calcium (8.4-10.2) mg/dL Total Bilirubin (0.0-1.0) mg/dL Direct Bilirubin (0.0-0.5) mg/dL AST (5-37) U/L ALT (0-40) U/L Alkaline Phosphatase (39-117) U/L Total Protein (6.5-8.0) g/dL Albumin (3.5-5.0) g/dL Salicylates (15-30) mg/dL Urine Opiates Screen Not Detected (Not Detect) Urine Fentanyl Screen Not Detected (Not Detect) Acetaminophen (<30) mcg/mL Ur Barbiturates Screen Not Detected (Not Detect) Ur Phencyclidine Scrn Not Detected (Not Detect) Ur Amphetamines Screen Not Detected (Not Detect) U Benzodiazepines Scrn Not Detected (Not Detect) Urine Cocaine Screen Not Detected (Not Detect) U Marijuana (THC) Screen Not Detected (Not Detect) Ethyl Alcohol mg/dL COVID-19 ([facility]) (Negative) COVID-19 Clin Com External Record Review External record reviewed: Inpatient record ( psychiatric) Chronic Conditions Patient?s care impacted by: Other ( depression, anxiety, dependent personality) Discharge Plan Discharge Clinical Impression: Major depressive disorder, Dependent personality disorder Prescriptions: No Action amitriptyline 50 mg Tablet 50 mg PO BEDTIME 30 Days Qty: 30 0RF escitalopram oxalate 10 mg tablet 15 mg PO DAILY 30 Days Qty: 45 0RF Myrbetriq 50 mg Tablet Extended Release 24 Hr 50 mg PO DAILY@1700 30 Days Qty: 30 0RF zolpidem 10 mg tablet 1 tab PO BEDTIME 30 Days Qty: 30 0RF cholecalciferol (vitamin D3) [Vitamin D3] 125 mcg (5,000 unit) Tablet 125 mcg PO DAILY olanzapine 5 mg Tablet 5 mg PO BEDTIME Qty: 15 0RF amitriptyline 50 mg Tablet 50 mg PO BEDTIME Qty: 0 0RF lorazepam 0.5 mg Tablet 0.5 mg PO BID@0900,1700 Qty: 30 0RF lorazepam 0.5 mg Tablet 0.25 mg PO DAILY PRN (Reason: anxiety) Qty: 15 0RF buspirone 10 mg Tablet 10 mg PO BID Qty: 0 0RF escitalopram oxalate 5 mg Tablet 15 mg PO DAILY Qty: 0 0RF clindamycin HCl 300 mg capsule 300 mg PO TID 7 Days Qty: 21 0RF Interventions: [place]-Suicide Risk Severity Scale Last Done: 06/20/22 17:24
[2022-06-20 15:26] LABS: COVID-19 Test Negative (Negative); IDNOW Serial# 16C4AD1C
[2022-06-20 15:31] LABS: Acetaminophen LAB < 17 mcg/mL (<30); Alanine Aminotransferase 15 U/L (0-40); Albumin Level 4.5 g/dL (3.5-5.0); Alkaline Phosphatase 98 U/L (39-117); Anion Gap 18 (12-20); Aspartate Amino Transferase 23 U/L (5-37); Bilirubin Direct < 0.2 mg/dL (0.0-0.5); Bilirubin Total 0.3 mg/dL (0.0-1.0); Blood Urea Nitrogen 14 mg/dL (9-16); Calcium 9.5 mg/dL (8.4-10.2); Carbon Dioxide 23 mmol/L (22-29); Chloride 110 mmol/L (96-108); Creatinine Clr Calc Pharmacy 60.1; Estimated Glomerular Filt Rate > 60; Ethanol < 10 mg/dL; Glucose Random 94 mg/dL (60-115); Potassium 4.5 mmol/L (3.3-5.1); Salicylate < 5.0 mg/dL (15-30); Sodium 146 mmol/L (135-145); Total Protein 6.6 g/dL (6.5-8.0)
[2022-06-20 16:00] LABS: Basophils Percent Auto 0.5 % (0-2); Eosinophils Percent Auto 0.3 % (0-4); Hematocrit 40.4 % (42.0-52.0); Hemoglobin 13.3 g/dl (14.0-18.0); Imm Gran Abs Auto 0.02 X10*3/uL (0.00-0.03); Imm Gran Pct Auto 0.3 % (0.0-0.4); Lymphocytes Absolute Auto 1.1 X10*3/uL (1.2-4.9); Lymphocytes Percent Auto 18.1 % (20-40); Mean Corpuscular HGB Conc 32.9 g/dl (31.0-36.0); Mean Corpuscular Hemoglobin 31.4 pg (27.0-33.0); Mean Corpuscular Volume 95.3 fL (80.0-98.0); Mean Platelet Volume 11.3 fL (9.4-12.4); Monocytes Absolute Auto 0.7 X10*3/uL (0.1-1.2); Monocytes Percent Auto 12.2 % (2-11); Neutrophils Absolute Auto 4.2 x10*3/uL (2.0-8.3); Neutrophils Percent Auto 68.6 % (45-73); Platelet Count 242 X10*3/uL (160-400); Red Blood Count 4.24 X10*6/uL (4.60-5.80); Red Cell Distribution Width 13.4 % (11.0-16.0); White Blood Count 6.1 X10*3/uL (4.8-10.8)
[2022-06-20 16:06] LABS: MANUAL DIFF FLAG NO
[2022-06-20 16:29] LABS: Amphetamine Screen Urine Not Detected (Not Detect); Barbiturates, Urine Not Detected (Not Detect); Benzodiazepines Screen Urine Not Detected (Not Detect); Cannabinoid Screen Urine Not Detected (Not Detect); Cocaine Screen Urine Not Detected (Not Detect); Fentanyl, urine Not Detected (Not Detect); Opiate Screen Urine Not Detected (Not Detect); Phencyclidine Screen Urine Not Detected (Not Detect)
--- NOTE | 2022-06-20 17:35 | ECG_ITS ---
Test Reason : CHECK QT/QTC Blood Pressure : / mmHG Vent. Rate : 075 BPM Atrial Rate : 075 BPM P-R Int : 150 ms QRS Dur : 080 ms QT Int : 396 ms P-R-T Axes : 061 030 064 degrees QTc Int : 442 ms Normal sinus rhythm Nonspecific ST and T wave abnormality Abnormal ECG When compared with ECG of 22-JAN-2022 21:44, No significant change was found Referred By: Humble Pritchard Electronically Signed By:Jl Padilla
[2022-06-20] MEDS: busPIRone HCl 10 MG TABLET PO (21:04)
[2022-06-20] MEDS: Famotidine 20 MG TABLET PO (21:04)
[2022-06-20] MEDS: OLANZapine 7.5 MG TABLET PO (21:04)
[2022-06-20] MEDS: Zolpidem Tartrate 5 MG TABLET PO (21:05)
[2022-06-20] MEDS: Amitriptyline HCl 50 MG TABLET PO (21:05)
[2022-06-20 23:12] VITALS: BP 139/70; PULSE 80; RESP 17; TEMP 36.6; O2SAT 97
[2022-06-21] MEDS: Omeprazole 20 MG CAPSULE.DR PO (05:59)
[2022-06-21] MEDS: busPIRone HCl 10 MG TABLET PO ×2 (08:17→22:01)
[2022-06-21] MEDS: LORazepam 0.5 MG TABLET PO ×2 (08:17→17:30)
[2022-06-21] MEDS: Escitalopram Oxalate 5 MG TABLET 15 MG PO (08:17)
[2022-06-21] MEDS: Cholecalciferol (Vitamin D3) 25 MCG TABLET 125 MCG PO (08:18)
[2022-06-21 13:48] VITALS: RESP 18
--- NOTE | 2022-06-21 14:58 | PC.NURSE ---
Care team at bedside for MSU
--- NOTE | 2022-06-21 15:26 | PC.NURSE ---
Pt seen this date for individual OT tx. Pt presents with moderate anxiety, depressed, flat affect. Pt continues to endorse SI with a plan to OD on his medication, he did not specify with medication he would use. Pt provided with encouragement to utilize coping skills relaxation breathing, meditation, and physical activity (pacing), as this pt is known to [facility]. Pt is in agreement and is receptive to coloring pages, word finds, and coloring pages.
[2022-06-21] MEDS: Mirabegron 50 MG TAB.ER.24H PO (17:57)
[2022-06-21 21:05] VITALS: BP 110/67; PULSE 103; RESP 18; TEMP 36.1; O2SAT 98
[2022-06-21] MEDS: Zolpidem Tartrate 5 MG TABLET PO (22:02)
[2022-06-21] MEDS: OLANZapine 7.5 MG TABLET PO (22:02)
[2022-06-21] MEDS: Famotidine 20 MG TABLET PO (22:02)
[2022-06-21] MEDS: LORazepam 0.5 MG TABLET 0.25 MG PO (22:15)
--- NOTE | 2022-06-22 01:10 | PC.ADMIT ---
PT is a 71 year old transgender male, arriving on CV in wheelchair accompanied by staff from [facility] on 06/21/22 at 2100. VS at 2105-T 96.9. P 103, RR18, O2 98%/RA, and BP 110/67. PT is known to this unit, PT admitted for SI, plan to OD on medication. PT is A+Ox3, independent in mobility and ADLs. PT denies SI, HI and feels safe on unit at time of admission. PT cooperative with admission process. PT has medical hx of GERD, MDD, deaf in L ear, and tracheal stenosis. PT states recent stressors include 2 friends moving to [place] and PT unable to see them, due to the long drive.
[2022-06-22] MEDS: Omeprazole 20 MG CAPSULE.DR PO (05:31)
[2022-06-22 06:00] VITALS: BP 108/66; PULSE 78; RESP 16; TEMP 37; O2SAT 97
[2022-06-22 08:20] LABS: Estimated Average Glucose 114 mg/dL; Hemoglobin A1c % 5.6 %
[2022-06-22 08:50] LABS: Alanine Aminotransferase 17 U/L (0-40); Albumin Level 4.2 g/dL (3.5-5.0); Alkaline Phosphatase 94 U/L (39-117); Anion Gap 17 (12-20); Aspartate Amino Transferase 22 U/L (5-37); Bilirubin Total 0.5 mg/dL (0.0-1.0); Blood Urea Nitrogen 16 mg/dL (9-16); Calcium 9.3 mg/dL (8.4-10.2); Carbon Dioxide 22 mmol/L (22-29); Chloride 110 mmol/L (96-108); Cholesterol 206 mg/dL; Creatinine Clr Calc Pharmacy 62.6; Estimated Glomerular Filt Rate > 60; Glucose Fasting 138 mg/dL (60-99); HDL Cholesterol 60 mg/dL; LDL Cholesterol Calculated 108 mg/dl; Potassium 4.6 mmol/L (3.3-5.1); Sodium 144 mmol/L (135-145); Total Protein 6.1 g/dL (6.5-8.0); Triglycerides 191 mg/dL
[2022-06-22] MEDS: LORazepam 0.5 MG TABLET PO ×2 (09:18→16:49)
[2022-06-22] MEDS: busPIRone HCl 10 MG TABLET PO ×2 (09:18→20:31)
[2022-06-22] MEDS: Cholecalciferol (Vitamin D3) 25 MCG TABLET 125 MCG PO (09:18)
[2022-06-22] MEDS: Escitalopram Oxalate 5 MG TABLET 15 MG PO (09:18)
[2022-06-22 09:20] LABS: Thyroid Stimulating Hormone 1.58 uIU/mL (0.32-4.0); Vitamin B12 594 pg/mL (200-900)
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
[2022-06-22] MEDS: Mirabegron 50 MG TAB.ER.24H PO (16:49)
[2022-06-22 18:00] VITALS: BP 113/61; PULSE 102; RESP 18; TEMP 36.3; O2SAT 97
[2022-06-22] MEDS: Famotidine 20 MG TABLET PO (20:30)
[2022-06-22] MEDS: Amitriptyline HCl 50 MG TABLET PO (20:31)
[2022-06-22] MEDS: OLANZapine 7.5 MG TABLET PO (20:31)
[2022-06-22] MEDS: Zolpidem Tartrate 5 MG TABLET PO (20:31)
[2022-06-22] MEDS: traZODone HCL 50 MG TABLET PO (23:01)
[2022-06-23] MEDS: Omeprazole 20 MG CAPSULE.DR PO (05:57)
[2022-06-23 07:00] VITALS: BMI 31.1
[2022-06-23] MEDS: Escitalopram Oxalate 5 MG TABLET 15 MG PO (08:55)
[2022-06-23] MEDS: Cholecalciferol (Vitamin D3) 25 MCG TABLET 125 MCG PO (08:55)
[2022-06-23] MEDS: LORazepam 0.5 MG TABLET PO ×2 (08:56→16:23)
[2022-06-23] MEDS: busPIRone HCl 10 MG TABLET PO ×2 (08:56→20:28)
[2022-06-23 08:57] VITALS: BP 120/71; PULSE 102; RESP 18; TEMP 35.9; O2SAT 98
--- NOTE | 2022-06-23 12:34 | HO.PSYCHPN ---
Subjective Subjective Date of Service: 06/23/22 Reason For Visit: SI Subjective Notes: Conditional Voluntary Interim History: Pt reports he woke up had trazodone with good effect but thinks if ambien is back to 10mg po qhs he will sleep better. He reports feeling depressed. However, pt presents as very future oriented in that he wants to assure that his medications are dispense weekly and not monthly as he does not trust himself. No plan or intent to harm himself. Per nursing, pt visible, social with select peers. Medication Compliance: Yes Side effects from medications: No Review of Systems Review of Systems Yes all other systems are reviewed and are negative Constitutional: Reports no additional constitutional complaints Eyes: Reports no additional eye complaints Reports system reviewed and no additional complaints, except as documented Cardiovascular: Reports no additional cardiovascular complaints Respiratory: Reports no additional respiratory complaints Gastrointestinal: Reports no additional gastrointestinal complaints Genitourinary: Reports no additional male genitourinary complaints Musculoskeletal: Reports no additional musculoskeletal complaints Skin/Breast: Reports system reviewed and no additional complaints, except as docu Reports system reviewed and no additional complaints, except as documented Psychiatric: Reports as per HPI Endocrine: Reports no additional endocrine complaints Hematologic/Lymphatic: Reports no additional hematologic/lymphatic complaints Allergic/Immunologic: Reports no additional allergic/immunologic complaints Mental Status Exam Mental Status Exam Narrative: Appearance: casually groomed, fair hygiene in NAD Behavior:cooperative. psychomotor:no agitation or retardation noted Speech:clear, normal rate/rhythm/volume, spontaneous Thought process:linear Thought content:no signs of psychosis, future oriented looking forward to do gardening, d/c soon Mood: depressed Affect: brightens at times SI:denies, but reports chronic SI conditional to feeling lonely HI:none VH/AH:none Delusions:none Insight/judgment:fair x 2. Memory/cog: alert, oriented x3. Diagnostics Vital Signs (24Hr): Vital Signs - 24 hr 06/23/22 08:57 06/23/22 19:30 Temperature 96.7 F L 97 F Pulse Rate 102 H 95 Respiratory Rate 18 16 Blood Pressure 120/71 123/64 Pulse Oximetry 98 99 Oxygen Delivery Method Room Air Room Air BMI result Body Mass Index 31.1 Labs 06/20/22 15:52 06/22/22 07:52 Labs: Laboratory Results - last 48 hr 06/22/22 07:52 Sodium 144 Potassium 4.6 Chloride 110 H Carbon Dioxide 22 Anion Gap 17 BUN 16 Creatinine 0.98 Estim Creat Clear Calc 62.6 Estimated GFR > 60 Fasting Glucose 138 H Calcium 9.3 Total Bilirubin 0.5 AST 22 ALT 17 Alkaline Phosphatase 94 Total Protein 6.1 L Albumin 4.2 Triglycerides 191 Cholesterol 206 LDL Cholesterol, Calc 108 HDL Cholesterol 60 Vitamin B12 594 Folate 12.0 TSH 1.58 Medications Medications Current Medications Acetaminophen (Acetaminophen 325 Mg Tablet) 650 mg PO Q6H PRN PRN Reason: Headache/Pain Mild Scale (1-3) Al Hydroxide/Mg Hydroxide (Magnesium Hydrox/Alum Hydrox 30 Ml Oral.Susp) 30 ml PO Q6H PRN PRN Reason: Heartburn/Nausea Amitriptyline HCl (Amitriptyline Hcl 50 Mg Tablet) 50 mg PO BEDTIME [facility] Last Admin: 06/23/22 20:28 Dose: 50 mg Buspirone HCl (Buspirone Hcl 10 Mg Tablet) 10 mg PO BID [facility] Last Admin: 06/23/22 20:28 Dose: 10 mg Escitalopram Oxalate (Escitalopram Oxalate 5 Mg Tablet) 15 mg PO DAILY [facility] Last Admin: 06/23/22 08:55 Dose: 15 mg Famotidine (Famotidine 20 Mg Tablet) 20 mg PO BEDTIME [facility] Last Admin: 06/23/22 20:26 Dose: 20 mg Hydroxyzine HCl (Hydroxyzine Hcl 25 Mg Tablet) 25 mg PO Q6H PRN PRN Reason: Anxiety Lorazepam (Lorazepam 0.5 Mg Tablet) 0.25 mg PO DAILY PRN PRN Reason: anxiety Last Admin: 06/21/22 22:15 Dose: 0.25 mg Lorazepam (Lorazepam 0.5 Mg Tablet) 0.5 mg PO BID@0900,1700 [facility] Last Admin: 06/23/22 16:23 Dose: 0.5 mg Magnesium Hydroxide (Milk Of Magnesia 30 Ml Oral.Susp) 30 ml PO DAILY PRN PRN Reason: Constipation Mirabegron (Mirabegron 50 Mg Tab.Er.24h) 50 mg PO DAILY@1700 [facility] Last Admin: 06/23/22 16:24 Dose: 50 mg Olanzapine (Olanzapine 7.5 Mg Tablet) 7.5 mg PO BEDTIME [facility] Last Admin: 06/23/22 20:28 Dose: 7.5 mg Omeprazole (Omeprazole 20 Mg Capsule.Dr) 20 mg PO DAILY@0630 [facility] Last Admin: 06/24/22 05:51 Dose: 20 mg Senna/Docusate Sodium (Sennosides/Docusate Sodium Tablet) 1 tab PO BID [facility] Last Admin: 06/23/22 20:28 Dose: 1 tab Trazodone HCl (Trazodone Hcl 50 Mg Tablet) 50 mg PO BEDTIME PRN PRN Reason: Insomnia Last Admin: 06/22/22 23:01 Dose: 50 mg Vitamin D (Cholecalciferol (Vitamin D3) 25 Mcg Tablet) 125 mcg PO DAILY [facility] Last Admin: 06/23/22 08:55 Dose: 125 mcg Zolpidem Tartrate (Zolpidem Tartrate 5 Mg Tablet) 10 mg PO BEDTIME [facility] Last Admin: 06/23/22 20:27 Dose: 10 mg Allergies Allergies Allergy/AdvReac Type Severity Reaction Status Date / Time ciprofloxacin [From CIPRO] Allergy Unknown DIARRHEA Verified 01/22/22 20:00 Assessment & Plan Assessment & Plan (1) MDD (major depressive disorder), recurrent episode, moderate: Status: Acute Code(s): F33.1 - Major depressive disorder, recurrent, moderate (2) Dependent personality disorder: Status: Acute Code(s): F60.7 - Dependent personality disorder Plan Mr. Smith is a 71 year-old male with hx of MDD, PD who self presented to [facility] ED reporting increase depression and suicidal ideation with plan to OD on his medications. Pt known to this unit through previous admission with similar presentation. Pt reports losing 2 friends who moved to [facility]. He reports feeling lonely and with sense of loss We discussed risks, benefits and alternative treatment option, he agrees to continue current medications PLAN 1. Admit to S1, 15 minutes checks, CV 2. Continue current medications 3. Aftercare planning. 2/2 increase lexapro 20mg po daily. Patient educated on: diagnosis Informed Consent: understands Reason for contiued inpatient stay Substantial Risk for: harm to self Time Spent With Patient Time: Total time managing care of this patient today ____ minutes.
[2022-06-23] MEDS: Mirabegron 50 MG TAB.ER.24H PO (16:24)
[2022-06-23 19:30] VITALS: BP 123/64; PULSE 95; RESP 16; TEMP 36.1; O2SAT 99
[2022-06-23] MEDS: Famotidine 20 MG TABLET PO (20:26)
[2022-06-23] MEDS: Zolpidem Tartrate 5 MG TABLET 10 MG PO (20:27)
[2022-06-23] MEDS: Amitriptyline HCl 50 MG TABLET PO (20:28)
[2022-06-23] MEDS: Sennosides/Docusate Sodium TABLET 1 TAB PO (20:28)
[2022-06-23] MEDS: OLANZapine 7.5 MG TABLET PO (20:28)
[2022-06-24] MEDS: Omeprazole 20 MG CAPSULE.DR PO (05:51)
[2022-06-24 06:00] VITALS: BP 122/68; PULSE 90; RESP 16; TEMP 36.7; O2SAT 99
[2022-06-24] MEDS: Sennosides/Docusate Sodium TABLET 1 TAB PO ×2 (09:20→19:52)
[2022-06-24] MEDS: Cholecalciferol (Vitamin D3) 25 MCG TABLET 125 MCG PO (09:20)
[2022-06-24] MEDS: LORazepam 0.5 MG TABLET PO ×2 (09:20→16:08)
[2022-06-24] MEDS: busPIRone HCl 10 MG TABLET PO ×2 (09:20→19:52)
--- NOTE | 2022-06-24 10:17 | HO.PSYCHPN ---
Subjective Subjective Date of Service: 06/24/22 Reason For Visit: SI Subjective Notes: Conditional Voluntary Interim History: Pt reports sleeping better. He denies SI/HI. He presents as very future oriented in that he is preoccupied with making sure he has medications delivered and not multiple bottles in his house. He has been visible on the unit. No behavioral concerns. Medication Compliance: Yes Review of Systems Review of Systems Yes all other systems are reviewed and are negative Constitutional: Reports no additional constitutional complaints Eyes: Reports no additional eye complaints Reports system reviewed and no additional complaints, except as documented Cardiovascular: Reports no additional cardiovascular complaints Respiratory: Reports no additional respiratory complaints Gastrointestinal: Reports no additional gastrointestinal complaints Genitourinary: Reports no additional male genitourinary complaints Musculoskeletal: Reports no additional musculoskeletal complaints Skin/Breast: Reports system reviewed and no additional complaints, except as docu Reports system reviewed and no additional complaints, except as documented Psychiatric: Reports as per HPI Endocrine: Reports no additional endocrine complaints Hematologic/Lymphatic: Reports no additional hematologic/lymphatic complaints Allergic/Immunologic: Reports no additional allergic/immunologic complaints Mental Status Exam Mental Status Exam Narrative: Appearance: casually groomed, fair hygiene in NAD Behavior:cooperative. psychomotor:no agitation or retardation noted Speech:clear, normal rate/rhythm/volume, spontaneous Thought process:linear Thought content:no signs of psychosis, future oriented looking forward to do gardening, d/c soon Mood: depressed Affect: brightens at times SI:denies, but reports chronic SI conditional to feeling lonely HI:none VH/AH:none Delusions:none Insight/judgment:fair x 2. Memory/cog: alert, oriented x3. Diagnostics Vital Signs (24Hr): Vital Signs - 24 hr 06/24/22 18:00 Temperature 96.5 F L Pulse Rate 83 Respiratory Rate 18 Blood Pressure 139/87 Pulse Oximetry 98 Oxygen Delivery Method Room Air BMI result Body Mass Index 31.1 Labs 06/20/22 15:52 06/22/22 07:52 Medications Medications Current Medications Acetaminophen (Acetaminophen 325 Mg Tablet) 650 mg PO Q6H PRN PRN Reason: Headache/Pain Mild Scale (1-3) Al Hydroxide/Mg Hydroxide (Magnesium Hydrox/Alum Hydrox 30 Ml Oral.Susp) 30 ml PO Q6H PRN PRN Reason: Heartburn/Nausea Amitriptyline HCl (Amitriptyline Hcl 50 Mg Tablet) 50 mg PO BEDTIME [facility] Last Admin: 06/24/22 19:52 Dose: 50 mg Buspirone HCl (Buspirone Hcl 10 Mg Tablet) 10 mg PO BID [facility] Last Admin: 06/25/22 09:01 Dose: 10 mg Escitalopram Oxalate (Escitalopram Oxalate 20 Mg Tablet) 20 mg PO DAILY [facility] Last Admin: 06/25/22 09:00 Dose: 20 mg Famotidine (Famotidine 20 Mg Tablet) 20 mg PO BEDTIME [facility] Last Admin: 06/24/22 19:52 Dose: 20 mg Hydroxyzine HCl (Hydroxyzine Hcl 25 Mg Tablet) 25 mg PO Q6H PRN PRN Reason: Anxiety Lorazepam (Lorazepam 0.5 Mg Tablet) 0.25 mg PO DAILY PRN PRN Reason: anxiety Last Admin: 06/21/22 22:15 Dose: 0.25 mg Lorazepam (Lorazepam 0.5 Mg Tablet) 0.5 mg PO BID@0900,1700 [facility] Last Admin: 06/25/22 09:00 Dose: 0.5 mg Magnesium Hydroxide (Milk Of Magnesia 30 Ml Oral.Susp) 30 ml PO DAILY PRN PRN Reason: Constipation Mirabegron (Mirabegron 50 Mg Tab.Er.24h) 50 mg PO DAILY@1700 [facility] Last Admin: 06/24/22 16:08 Dose: 50 mg Olanzapine (Olanzapine 7.5 Mg Tablet) 7.5 mg PO BEDTIME [facility] Last Admin: 06/24/22 19:52 Dose: 7.5 mg Omeprazole (Omeprazole 20 Mg Capsule.Dr) 20 mg PO DAILY@0630 [facility] Last Admin: 06/25/22 09:00 Dose: 20 mg Senna/Docusate Sodium (Sennosides/Docusate Sodium Tablet) 1 tab PO BID [facility] Last Admin: 06/25/22 09:01 Dose: 1 tab Trazodone HCl (Trazodone Hcl 50 Mg Tablet) 50 mg PO BEDTIME PRN PRN Reason: Insomnia Last Admin: 06/22/22 23:01 Dose: 50 mg Vitamin D (Cholecalciferol (Vitamin D3) 25 Mcg Tablet) 125 mcg PO DAILY [facility] Last Admin: 06/25/22 09:02 Dose: 125 mcg Zolpidem Tartrate (Zolpidem Tartrate 5 Mg Tablet) 10 mg PO BEDTIME [facility] Last Admin: 06/24/22 19:52 Dose: 10 mg Allergies Allergies Allergy/AdvReac Type Severity Reaction Status Date / Time ciprofloxacin [From CIPRO] Allergy Unknown DIARRHEA Verified 01/22/22 20:00 Assessment & Plan Assessment & Plan (1) MDD (major depressive disorder), recurrent episode, moderate: Status: Acute Code(s): F33.1 - Major depressive disorder, recurrent, moderate (2) Dependent personality disorder: Status: Acute Code(s): F60.7 - Dependent personality disorder Plan Mr. Smith is a 71 year-old male with hx of MDD, PD who self presented to [facility] ED reporting increase depression and suicidal ideation with plan to OD on his medications. Pt known to this unit through previous admission with similar presentation. Pt reports losing 2 friends who moved to [facility]. He reports feeling lonely and with sense of loss We discussed risks, benefits and alternative treatment option, he agrees to continue current medications PLAN 1. Admit to S1, 15 minutes checks, CV 2. Continue current medications 3. Aftercare planning. 2/2 increase lexapro 20mg po daily. 2/3 continue current medications. Reason for contiued inpatient stay Substantial Risk for: harm to self Time Spent With Patient Time: Total time managing care of this patient today ____ minutes.
[2022-06-24] MEDS: Mirabegron 50 MG TAB.ER.24H PO (16:08)
[2022-06-24 18:00] VITALS: BP 139/87; PULSE 83; RESP 18; TEMP 35.8; O2SAT 98
[2022-06-24] MEDS: OLANZapine 7.5 MG TABLET PO (19:52)
[2022-06-24] MEDS: Famotidine 20 MG TABLET PO (19:52)
[2022-06-24] MEDS: Amitriptyline HCl 50 MG TABLET PO (19:52)
[2022-06-24] MEDS: Zolpidem Tartrate 5 MG TABLET 10 MG PO (19:52)
[2022-06-25 09:00] VITALS: BP 116/77; PULSE 89; RESP 16; TEMP 36.2; O2SAT 99
[2022-06-25] MEDS: Escitalopram Oxalate 20 MG TABLET PO (09:00)
[2022-06-25] MEDS: Omeprazole 20 MG CAPSULE.DR PO (09:00)
[2022-06-25] MEDS: LORazepam 0.5 MG TABLET PO ×2 (09:00→16:30)
[2022-06-25] MEDS: Sennosides/Docusate Sodium TABLET 1 TAB PO ×2 (09:01→20:00)
[2022-06-25] MEDS: busPIRone HCl 10 MG TABLET PO ×2 (09:01→19:59)
[2022-06-25] MEDS: Cholecalciferol (Vitamin D3) 25 MCG TABLET 125 MCG PO (09:02)
--- NOTE | 2022-06-25 11:30 | HO.PSYCHPN ---
Subjective Subjective Date of Service: 06/25/22 Reason For Visit: SI Interim History: feeling better. planning to DC soon, was unaware of monday plan. no complaints or requests. per staff, slept well. DC . Mental Status Exam Mental Status Exam Narrative: Appearance: casually groomed, fair hygiene in NAD Behavior:cooperative. psychomotor:no agitation or retardation noted Speech:clear, normal rate/rhythm/volume, spontaneous Thought process:linear Thought content:no signs of psychosis, future oriented looking forward to do gardening, d/c soon Mood: better Affect: brightens at times SI:denies, but reports chronic SI conditional to feeling lonely HI:none VH/AH:none Delusions:none Insight/judgment:fair x 2. Memory/cog: alert, oriented x3. Diagnostics Vital Signs (24Hr): Vital Signs - 24 hr 06/24/22 18:00 Temperature 96.5 F L Pulse Rate 83 Respiratory Rate 18 Blood Pressure 139/87 Pulse Oximetry 98 Oxygen Delivery Method Room Air BMI result Body Mass Index 31.1 Labs 06/20/22 15:52 06/22/22 07:52 Medications Medications Current Medications Acetaminophen (Acetaminophen 325 Mg Tablet) 650 mg PO Q6H PRN PRN Reason: Headache/Pain Mild Scale (1-3) Al Hydroxide/Mg Hydroxide (Magnesium Hydrox/Alum Hydrox 30 Ml Oral.Susp) 30 ml PO Q6H PRN PRN Reason: Heartburn/Nausea Amitriptyline HCl (Amitriptyline Hcl 50 Mg Tablet) 50 mg PO BEDTIME [facility] Last Admin: 06/24/22 19:52 Dose: 50 mg Buspirone HCl (Buspirone Hcl 10 Mg Tablet) 10 mg PO BID [facility] Last Admin: 06/25/22 09:01 Dose: 10 mg Escitalopram Oxalate (Escitalopram Oxalate 20 Mg Tablet) 20 mg PO DAILY [facility] Last Admin: 06/25/22 09:00 Dose: 20 mg Famotidine (Famotidine 20 Mg Tablet) 20 mg PO BEDTIME [facility] Last Admin: 06/24/22 19:52 Dose: 20 mg Hydroxyzine HCl (Hydroxyzine Hcl 25 Mg Tablet) 25 mg PO Q6H PRN PRN Reason: Anxiety Lorazepam (Lorazepam 0.5 Mg Tablet) 0.25 mg PO DAILY PRN PRN Reason: anxiety Last Admin: 01/31/23 22:15 Dose: 0.25 mg Lorazepam (Lorazepam 0.5 Mg Tablet) 0.5 mg PO BID@0900,1700 [facility] Last Admin: 06/25/22 09:00 Dose: 0.5 mg Magnesium Hydroxide (Milk Of Magnesia 30 Ml Oral.Susp) 30 ml PO DAILY PRN PRN Reason: Constipation Mirabegron (Mirabegron 50 Mg Tab.Er.24h) 50 mg PO DAILY@1700 [facility] Last Admin: 06/24/22 16:08 Dose: 50 mg Olanzapine (Olanzapine 7.5 Mg Tablet) 7.5 mg PO BEDTIME [facility] Last Admin: 06/24/22 19:52 Dose: 7.5 mg Omeprazole (Omeprazole 20 Mg Capsule.Dr) 20 mg PO DAILY@0630 [facility] Last Admin: 06/25/22 09:00 Dose: 20 mg Senna/Docusate Sodium (Sennosides/Docusate Sodium Tablet) 1 tab PO BID [facility] Last Admin: 06/25/22 09:01 Dose: 1 tab Trazodone HCl (Trazodone Hcl 50 Mg Tablet) 50 mg PO BEDTIME PRN PRN Reason: Insomnia Last Admin: 06/22/22 23:01 Dose: 50 mg Vitamin D (Cholecalciferol (Vitamin D3) 25 Mcg Tablet) 125 mcg PO DAILY [facility] Last Admin: 06/25/22 09:02 Dose: 125 mcg Zolpidem Tartrate (Zolpidem Tartrate 5 Mg Tablet) 10 mg PO BEDTIME [facility] Last Admin: 06/24/22 19:52 Dose: 10 mg Allergies Allergies Allergy/AdvReac Type Severity Reaction Status Date / Time ciprofloxacin [From CIPRO] Allergy Unknown DIARRHEA Verified 01/22/22 20:00 Assessment & Plan Assessment & Plan (1) MDD (major depressive disorder), recurrent episode, moderate: Status: Acute Code(s): F33.1 - Major depressive disorder, recurrent, moderate (2) Dependent personality disorder: Status: Acute Code(s): F60.7 - Dependent personality disorder Plan Mr. Smith is a 71 year-old male with hx of MDD, PD who self presented to [facility] ED reporting increase depression and suicidal ideation with plan to OD on his medications. Pt known to this unit through previous admission with similar presentation. Pt reports losing 2 friends who moved to [facility]. He reports feeling lonely and with sense of loss We discussed risks, benefits and alternative treatment option, he agrees to continue current medications PLAN 1. Admit to S1, 15 minutes checks, CV 2. Continue current medications 3. Aftercare planning. 2/2 increase lexapro 20mg po daily. 2/3 continue current medications. 2/: no change in mgmt. feeling better. Reason for contiued inpatient stay Substantial Risk for: inability to function and rapid decompensation Time Spent With Patient Time: Total time managing care of this patient today _15___ minutes.
[2022-06-25] MEDS: Mirabegron 50 MG TAB.ER.24H PO (16:30)
[2022-06-25 18:00] VITALS: BP 124/80; PULSE 103; RESP 18; TEMP 36.6; O2SAT 97
[2022-06-25] MEDS: OLANZapine 7.5 MG TABLET PO (19:59)
[2022-06-25] MEDS: Famotidine 20 MG TABLET PO (19:59)
[2022-06-25] MEDS: Amitriptyline HCl 50 MG TABLET PO (19:59)
[2022-06-25] MEDS: Zolpidem Tartrate 5 MG TABLET 10 MG PO (20:00)
[2022-06-25] MEDS: traZODone HCL 50 MG TABLET PO (21:51)
[2022-06-26] MEDS: Omeprazole 20 MG CAPSULE.DR PO (05:50)
[2022-06-26 08:30] VITALS: BP 114/58; PULSE 82; RESP 16; TEMP 36.2; O2SAT 97
[2022-06-26] MEDS: Escitalopram Oxalate 20 MG TABLET PO (08:34)
[2022-06-26] MEDS: LORazepam 0.5 MG TABLET PO ×2 (08:34→16:18)
[2022-06-26] MEDS: busPIRone HCl 10 MG TABLET PO ×2 (08:35→19:58)
[2022-06-26] MEDS: Sennosides/Docusate Sodium TABLET 1 TAB PO ×2 (08:35→19:58)
[2022-06-26] MEDS: Cholecalciferol (Vitamin D3) 25 MCG TABLET 125 MCG PO (08:36)
--- NOTE | 2022-06-26 11:01 | HO.PSYCHPN ---
Subjective Subjective Date of Service: 06/26/22 Reason For Visit: SI Interim History: calm, cooperative. appears anxious, c/o anxiety. states he has a lot of questions about medications delivery service he will be using after discharge. questions are asked to be deferred to primary team when they return tomorrow. asking for PRN for anxiety. per staff, anxious and depressed. slept about 7 hours overnight. meds and meals compliant. Mental Status Exam Mental Status Exam Narrative: Appearance: casually groomed, fair hygiene in NAD Behavior:cooperative. psychomotor:no agitation or retardation noted Speech:clear, normal rate/rhythm/volume, spontaneous Thought process:linear Thought content:no signs of psychosis, future oriented looking forward to do gardening, d/c soon Mood: anxious Affect: constricted SI:denies, but reports chronic SI conditional to feeling lonely HI:none VH/AH:none Delusions:none Insight/judgment:fair x 2. Memory/cog: alert, oriented x3. Diagnostics Vital Signs (24Hr): Vital Signs - 24 hr 06/25/22 18:00 06/26/22 08:30 Temperature 97.8 F 97.2 F Pulse Rate 103 H 82 Respiratory Rate 18 16 Blood Pressure 124/80 114/58 L Pulse Oximetry 97 97 Oxygen Delivery Method Room Air Room Air BMI result Body Mass Index 31.1 Labs 06/20/22 15:52 06/22/22 07:52 Medications Medications Current Medications Acetaminophen (Acetaminophen 325 Mg Tablet) 650 mg PO Q6H PRN PRN Reason: Headache/Pain Mild Scale (1-3) Al Hydroxide/Mg Hydroxide (Magnesium Hydrox/Alum Hydrox 30 Ml Oral.Susp) 30 ml PO Q6H PRN PRN Reason: Heartburn/Nausea Amitriptyline HCl (Amitriptyline Hcl 50 Mg Tablet) 50 mg PO BEDTIME [facility] Last Admin: 06/25/22 19:59 Dose: 50 mg Buspirone HCl (Buspirone Hcl 10 Mg Tablet) 10 mg PO BID [facility] Last Admin: 06/26/22 08:35 Dose: 10 mg Escitalopram Oxalate (Escitalopram Oxalate 20 Mg Tablet) 20 mg PO DAILY [facility] Last Admin: 06/26/22 08:34 Dose: 20 mg Famotidine (Famotidine 20 Mg Tablet) 20 mg PO BEDTIME [facility] Last Admin: 06/25/22 19:59 Dose: 20 mg Hydroxyzine HCl (Hydroxyzine Hcl 25 Mg Tablet) 25 mg PO Q6H PRN PRN Reason: Anxiety Magnesium Hydroxide (Milk Of Magnesia 30 Ml Oral.Susp) 30 ml PO DAILY PRN PRN Reason: Constipation Mirabegron (Mirabegron 50 Mg Tab.Er.24h) 50 mg PO DAILY@1700 [facility] Last Admin: 06/25/22 16:30 Dose: 50 mg Olanzapine (Olanzapine 7.5 Mg Tablet) 7.5 mg PO BEDTIME [facility] Last Admin: 06/25/22 19:59 Dose: 7.5 mg Omeprazole (Omeprazole 20 Mg Capsule.Dr) 20 mg PO DAILY@0630 [facility] Last Admin: 06/26/22 05:50 Dose: 20 mg Senna/Docusate Sodium (Sennosides/Docusate Sodium Tablet) 1 tab PO BID [facility] Last Admin: 06/26/22 08:35 Dose: 1 tab Trazodone HCl (Trazodone Hcl 50 Mg Tablet) 50 mg PO BEDTIME PRN PRN Reason: Insomnia Last Admin: 06/25/22 21:51 Dose: 50 mg Vitamin D (Cholecalciferol (Vitamin D3) 25 Mcg Tablet) 125 mcg PO DAILY [facility] Last Admin: 06/26/22 08:36 Dose: 125 mcg Zolpidem Tartrate (Zolpidem Tartrate 5 Mg Tablet) 10 mg PO BEDTIME [facility] Last Admin: 06/25/22 20:00 Dose: 10 mg Allergies Allergies Allergy/AdvReac Type Severity Reaction Status Date / Time ciprofloxacin [From CIPRO] Allergy Unknown DIARRHEA Verified 01/22/22 20:00 Assessment & Plan Assessment & Plan (1) MDD (major depressive disorder), recurrent episode, moderate: Status: Acute Code(s): F33.1 - Major depressive disorder, recurrent, moderate (2) Dependent personality disorder: Status: Acute Code(s): F60.7 - Dependent personality disorder Plan Mr. Smith is a 71 year-old male with hx of MDD, PD who self presented to [facility] ED reporting increase depression and suicidal ideation with plan to OD on his medications. Pt known to this unit through previous admission with similar presentation. Pt reports losing 2 friends who moved to [facility]. He reports feeling lonely and with sense of loss We discussed risks, benefits and alternative treatment option, he agrees to continue current medications PLAN 1. Admit to S1, 15 minutes checks, CV 2. Continue current medications 3. Aftercare planning. 2/2 increase lexapro 20mg po daily. 2/3 continue current medications. 2/4: no change in mgmt. feeling better. 25: anxious, asking for PRN for anxiety. will make use of hydroxyzine for now. Reason for contiued inpatient stay Substantial Risk for: harm to self, inability to function and rapid decompensation Time Spent With Patient Time: Total time managing care of this patient today ____ minutes.
[2022-06-26] MEDS: hydrOXYzine HCL 25 MG TABLET PO (12:51)
[2022-06-26] MEDS: Mirabegron 50 MG TAB.ER.24H PO (16:18)
[2022-06-26 18:00] VITALS: BP 127/75; PULSE 104; RESP 16; TEMP 36.6; O2SAT 97
[2022-06-26] MEDS: OLANZapine 7.5 MG TABLET PO (19:58)
[2022-06-26] MEDS: Zolpidem Tartrate 5 MG TABLET 10 MG PO (19:58)
[2022-06-26] MEDS: Famotidine 20 MG TABLET PO (19:58)
[2022-06-26] MEDS: Amitriptyline HCl 50 MG TABLET PO (19:58)
[2022-06-26] MEDS: traZODone HCL 50 MG TABLET PO ×2 (21:58→22:21)
[2022-06-27] MEDS: Omeprazole 20 MG CAPSULE.DR PO (06:06)
[2022-06-27] MEDS: Sennosides/Docusate Sodium TABLET 1 TAB PO ×2 (08:46→20:22)
[2022-06-27] MEDS: Escitalopram Oxalate 20 MG TABLET PO (08:46)
[2022-06-27] MEDS: Cholecalciferol (Vitamin D3) 25 MCG TABLET 125 MCG PO (08:46)
[2022-06-27] MEDS: LORazepam 0.5 MG TABLET PO ×2 (08:46→16:39)
[2022-06-27] MEDS: busPIRone HCl 10 MG TABLET PO ×2 (08:46→20:26)
[2022-06-27 09:20] VITALS: BP 118/56; PULSE 105; RESP 16; TEMP 36.2; O2SAT 99
--- NOTE | 2022-06-27 14:46 | HO.PSYCHPN ---
Subjective Subjective Date of Service: 06/27/22 Reason For Visit: SI Subjective Notes: Conditional Voluntary Interim History: Pt reports he was mostly in the his room as he had increased anxiety related to upcoming d/c home. He denies SI/HI. He worries he may need more support than what he has at home. Reassured about informal supports along with individual therapy. Medications sent to [facility] and will be delivered to his home tomorrow after discharge. No behavioral concerns. Medication Compliance: Yes Side effects from medications: No Review of Systems Review of Systems Yes all other systems are reviewed and are negative Constitutional: Reports no additional constitutional complaints Eyes: Reports no additional eye complaints Reports system reviewed and no additional complaints, except as documented Cardiovascular: Reports no additional cardiovascular complaints Respiratory: Reports no additional respiratory complaints Gastrointestinal: Reports no additional gastrointestinal complaints Genitourinary: Reports no additional male genitourinary complaints Musculoskeletal: Reports no additional musculoskeletal complaints Skin/Breast: Reports system reviewed and no additional complaints, except as docu Reports system reviewed and no additional complaints, except as documented Psychiatric: Reports as per HPI Endocrine: Reports no additional endocrine complaints Hematologic/Lymphatic: Reports no additional hematologic/lymphatic complaints Allergic/Immunologic: Reports no additional allergic/immunologic complaints Mental Status Exam Mental Status Exam Narrative: Appearance: casually groomed, fair hygiene in NAD Behavior:cooperative. psychomotor:no agitation or retardation noted Speech:clear, normal rate/rhythm/volume, spontaneous Thought process:linear Thought content:no signs of psychosis, future oriented looking forward to do gardening, d/c soon Mood: anxious Affect: constricted SI:denies, but reports chronic SI conditional to feeling lonely HI:none VH/AH:none Delusions:none Insight/judgment:fair x 2. Memory/cog: alert, oriented x3. Diagnostics Vital Signs (24Hr): Vital Signs - 24 hr 06/27/22 09:20 Temperature 97.1 F Pulse Rate 105 H Respiratory Rate 16 Blood Pressure 118/56 L Pulse Oximetry 99 Oxygen Delivery Method Room Air BMI result Body Mass Index 31.1 Labs 06/20/22 15:52 06/22/22 07:52 Medications Medications Current Medications Acetaminophen (Acetaminophen 325 Mg Tablet) 650 mg PO Q6H PRN PRN Reason: Headache/Pain Mild Scale (1-3) Al Hydroxide/Mg Hydroxide (Magnesium Hydrox/Alum Hydrox 30 Ml Oral.Susp) 30 ml PO Q6H PRN PRN Reason: Heartburn/Nausea Amitriptyline HCl (Amitriptyline Hcl 50 Mg Tablet) 50 mg PO BEDTIME [facility] Last Admin: 06/27/22 20:22 Dose: 50 mg Buspirone HCl (Buspirone Hcl 10 Mg Tablet) 10 mg PO BID [facility] Last Admin: 06/27/22 20:26 Dose: 10 mg Escitalopram Oxalate (Escitalopram Oxalate 20 Mg Tablet) 20 mg PO DAILY [facility] Last Admin: 06/27/22 08:46 Dose: 20 mg Famotidine (Famotidine 20 Mg Tablet) 20 mg PO BEDTIME [facility] Last Admin: 06/27/22 20:21 Dose: 20 mg Hydroxyzine HCl (Hydroxyzine Hcl 25 Mg Tablet) 25 mg PO Q6H PRN PRN Reason: Anxiety Last Admin: 06/27/22 14:47 Dose: 25 mg Lorazepam (Lorazepam 0.5 Mg Tablet) 0.25 mg PO DAILY PRN PRN Reason: Anxiety Lorazepam (Lorazepam 0.5 Mg Tablet) 0.5 mg PO BID@0900,1700 [facility] Last Admin: 06/27/22 16:39 Dose: 0.5 mg Magnesium Hydroxide (Milk Of Magnesia 30 Ml Oral.Susp) 30 ml PO DAILY PRN PRN Reason: Constipation Mirabegron (Mirabegron 50 Mg Tab.Er.24h) 50 mg PO DAILY@1700 [facility] Last Admin: 06/27/22 16:38 Dose: 50 mg Olanzapine (Olanzapine 7.5 Mg Tablet) 7.5 mg PO BEDTIME [facility] Last Admin: 06/27/22 20:22 Dose: 7.5 mg Omeprazole (Omeprazole 20 Mg Capsule.Dr) 20 mg PO DAILY@0630 [facility] Last Admin: 06/27/22 06:06 Dose: 20 mg Senna/Docusate Sodium (Sennosides/Docusate Sodium Tablet) 1 tab PO BID [facility] Last Admin: 06/27/22 20:22 Dose: 1 tab Trazodone HCl (Trazodone Hcl 50 Mg Tablet) 50 mg PO BEDTIME PRN PRN Reason: Insomnia Last Admin: 06/27/22 20:26 Dose: 50 mg Vitamin D (Cholecalciferol (Vitamin D3) 25 Mcg Tablet) 125 mcg PO DAILY [facility] Last Admin: 06/27/22 08:46 Dose: 125 mcg Zolpidem Tartrate (Zolpidem Tartrate 5 Mg Tablet) 10 mg PO BEDTIME [facility] Last Admin: 06/27/22 20:21 Dose: 10 mg Allergies Allergies Allergy/AdvReac Type Severity Reaction Status Date / Time ciprofloxacin [From CIPRO] Allergy Unknown DIARRHEA Verified 01/22/22 20:00 Assessment & Plan Assessment & Plan (1) MDD (major depressive disorder), recurrent episode, moderate: Status: Acute Code(s): F33.1 - Major depressive disorder, recurrent, moderate (2) Dependent personality disorder: Status: Acute Code(s): F60.7 - Dependent personality disorder Plan Mr. Smith is a 71 year-old male with hx of MDD, PD who self presented to [facility] reporting increase depression and suicidal ideation with plan to OD on his medications. Pt known to this unit through previous admission with similar presentation. Pt reports losing 2 friends who moved to [facility]. He reports feeling lonely and with sense of loss We discussed risks, benefits and alternative treatment option, he agrees to continue current medications PLAN 1. Admit to S1, 15 minutes checks, CV 2. Continue current medications 3. Aftercare planning. 2/2 increase lexapro 20mg po daily. 2/3 continue current medications. 2/4: no change in mgmt. feeling better. 2/5: anxious, asking for PRN for anxiety. will make use of hydroxyzine for now. 2/6 continue current medications. Reason for contiued inpatient stay Substantial Risk for: stable for discharge Time Spent With Patient Time: Total time managing care of this patient today ____ minutes.
[2022-06-27] MEDS: hydrOXYzine HCL 25 MG TABLET PO (14:47)
[2022-06-27] MEDS: Mirabegron 50 MG TAB.ER.24H PO (16:38)
[2022-06-27 18:00] VITALS: BP 101/82; PULSE 93; RESP 16; TEMP 36.7; O2SAT 96
[2022-06-27] MEDS: Zolpidem Tartrate 5 MG TABLET 10 MG PO (20:21)
[2022-06-27] MEDS: Famotidine 20 MG TABLET PO (20:21)
[2022-06-27] MEDS: OLANZapine 7.5 MG TABLET PO (20:22)
[2022-06-27] MEDS: Amitriptyline HCl 50 MG TABLET PO (20:22)
[2022-06-27] MEDS: traZODone HCL 50 MG TABLET PO (20:26)
[2022-06-28] MEDS: Omeprazole 20 MG CAPSULE.DR PO (06:08)
[2022-06-28 08:40] VITALS: BP 148/62; PULSE 110; RESP 18; O2SAT 99
[2022-06-28] MEDS: Cholecalciferol (Vitamin D3) 25 MCG TABLET 125 MCG PO (08:40)
[2022-06-28] MEDS: busPIRone HCl 10 MG TABLET PO (08:40)
[2022-06-28] MEDS: LORazepam 0.5 MG TABLET PO (08:41)
[2022-06-28] MEDS: Sennosides/Docusate Sodium TABLET 1 TAB PO (08:41)
[2022-06-28] MEDS: Escitalopram Oxalate 20 MG TABLET PO (08:41)
--- NOTE | 2022-06-28 09:23 | PM.PSYDC ---
DS: Providers Provider Date of Service: 06/28/22 Date of admission: 06/21/22 19:16 Primary care physician: Scott Quiroz MD DS: Diagnosis Discharge Diagnosis (1) MDD (major depressive disorder), recurrent episode, moderate: Status: Acute (2) Dependent personality disorder: Status: Acute DS: Medications Discharge Medications Home Medications: Previous Rx's Medication Instructions Recorded amitriptyline 50 mg tablet 50 mg PO BEDTIME #7 tabs 06/27/22 buspirone 10 mg tablet 10 mg PO BID #14 tabs 06/27/22 cholecalciferol (vitamin D3) 25 125 mcg PO DAILY #7 tabs 06/27/22 mcg (1,000 unit) tablet escitalopram oxalate 20 mg tablet 20 mg PO DAILY #7 tabs 06/27/22 famotidine 20 mg tablet 20 mg PO BEDTIME #7 tabs 06/27/22 lorazepam 0.5 mg tablet 0.5 mg PO BID@0900,1700 #14 tabs 06/27/22 mirabegron 50 mg tablet,extended 50 mg PO DAILY@1700 #7 tabs 06/27/22 release 24 hr (Myrbetriq) olanzapine 7.5 mg tablet 7.5 mg PO BEDTIME #7 tabs 06/27/22 pantoprazole 40 mg tablet,delayed 1 tab PO DAILY #7 tabs 06/27/22 release sennosides 8.6 mg-docusate sodium 1 tab PO BID #14 tabs 06/27/22 50 mg tablet (Senna Plus) trazodone 50 mg tablet 50 mg PO BEDTIME PRN Insomnia #7 06/27/22 tabs zolpidem 10 mg tablet 10 mg PO BEDTIME #7 tabs 06/27/22 Mental Status Exam Mental Status Exam Narrative: Appearance: casually groomed, fair hygiene in NAD Behavior:cooperative. psychomotor:no agitation or retardation noted Speech:clear, normal rate/rhythm/volume, spontaneous Thought process:linear Thought content:no signs of psychosis, future oriented looking forward to do gardening, d/c soon Mood: anxious Affect: constricted SI:denies, but reports chronic SI conditional to feeling lonely HI:none VH/AH:none Delusions:none Insight/judgment:fair x 2. Memory/cog: alert, oriented x3. Data Data Completed and Pending Completed studies during hospitalization [Text1]: 06/22/22 06/22/22 07:52 07:52 Sodium 144 Potassium 4.6 Chloride 110 H Carbon Dioxide 22 Anion Gap 17 BUN 16 Creatinine 0.98 Estim Creat Clear Calc 62.6 Estimated GFR > 60 Fasting Glucose 138 H Estimat Average Glucose 114 Hemoglobin A1c % 5.6 Calcium 9.3 Total Bilirubin 0.5 AST 22 ALT 17 Alkaline Phosphatase 94 Total Protein 6.1 L Albumin 4.2 Triglycerides 191 Cholesterol 206 LDL Cholesterol, Calc 108 HDL Cholesterol 60 Vitamin B12 594 Folate 12.0 TSH 1.58 DS: Summary Hospital Course Hospital Course: Mr. Rausch is a 71 year-old transgender female to male with hx of MDD who called crisis, was transported to [facility] ED on 08/13 due to increase loneliness, reporting not being able to care for himself, not wanting responsibilities, wanting to be taken care of suicidal ideation with plan to starve to or burning self with hot water in the shower. Pt has been inn inpatient psych units since 06/21. He was initially discharge from this unit on 07/06. He was readmitted to [facility] from 07/07 to 08/11/21. On the unit, pt reports feeling okay. He reports he does not want to . He endorses feeling lonely and admits that he does want to be taken care of. 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 He reports he has some friends in the community and feels these friends care about him. He reports sleeping and eating well. He denies VH/AH. He does not appear internally preoccupied. When discussing nature of suicidal reports, pt does admit that it has become a way of asking for help- re: being admitted to inpatient psychiatric units- but not always a reflection of true suicidally. He states I guess that's not very adaptive. He reports he did not follow up with referral to do PHP. He also admits that when he was discharged from this unit, he could have check in with his OP psychotherapist but instead he decided to go back to the hospital. He reports taking medications as prescribed. No side effects noted. Past Psychiatric History: Inpatient: [facility] 06/21-07/06/21; [facility] 07/07-08/11/[id number] M5 OP: Geovanna Davis APRN; Blaire Vo ([phone]) therapist.? Suicide attempts: pt reports tried to drown self back (filled tub) in 2019 but called crisis Past trials: Medical Evaluation Reviewed: Yes HOSPITAL COURSE On the unit, pt was admitted on a CV and placed on 15 minutes checks for safety. We discussed risks, benefits and alternative treatment options. Pt agreed to increase lexapro to 20mg po daily. He was continued on ativan, low dose olanzapine. Pt presents with mostly chronic feeling of loneliness, sense of emptiness, triggered by fact that 2 friends moved to [place] recently. Pt presented as future oriented, very preoccupied with making sure medications are dispense home weekly to decrease risk of OD. He was visible at times and attended most assigned groups. Pt was sleeping and eating well. There were no incidences of disruptive behaviors nor need for restraints. Medications were sent to [facility] to be delivered weekly in bubble pack. Pt agreed to continue OP psych tx with joint terminal attack controller providers. 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 Discussed at length that long inpatient admission tend to be more detrimental than therapeutic as chronic SI often are reflection of ways of communicating distress and soliciting help more than suicidal ideation. Other than pt denying any plan or intent to harm himself, pt as mentioned before presented as very future oriented, bright affect and able to participate in problem solving and practicing coping skills to manage emotional distress. Status at Discharge Cognitive/behavioral status at discharge: Pt with brighter, non labile affect. No signs of psychosis or delusions. No signs of aggression towards self or others. No plan or intent to harm himself. Sleeping and eating well. Functional status at discharge: independent ambulation Overall status at discharge: patient is progressing back to baseline Time Spent with Patient Time attestation: Total time managing care of this patient today ___30_ minutes. Time spent: Greater than 30 minutes Discharge Plan Discharge Anticipated Discharge Date/Time: 06/27/22 10:56 Patient Disposition: Home, Self-Care Discharge Diagnosis: MDD DPD Referrals: Blaire Vo [Other] - 07/04/22 2:30 pm (Your next appointment with Blaire is Monday07/04/22 at 2:30pm. ) Geovanna Davis APRN [Other] - 07/08/22 11:30 am (Your appointment with Geovanna Davis is scheduled for 07/08/22 at 11:30. ) Scott Quiroz MD [Primary Care Provider] - 07/05/22 10:00 am (follow up for Wednesday 07/05 @10 A.M.) Discharge Medications: New olanzapine 7.5 mg Tablet 7.5 mg PO BEDTIME Qty: 7 4RF amitriptyline 50 mg Tablet 50 mg PO BEDTIME Qty: 7 4RF buspirone 10 mg Tablet 10 mg PO BID Qty: 14 4RF escitalopram oxalate 20 mg Tablet 20 mg PO DAILY Qty: 7 4RF zolpidem 10 mg tablet 10 mg PO BEDTIME Qty: 7 4RF trazodone 50 mg Tablet 50 mg PO BEDTIME PRN (Reason: Insomnia) Qty: 7 4RF sennosides-docusate sodium [Senna Plus] 8.6-50 mg Tablet 1 tab PO BID Qty: 14 4RF famotidine 20 mg Tablet 20 mg PO BEDTIME Qty: 7 4RF cholecalciferol (vitamin D3) 25 mcg (1,000 unit) Tablet 125 mcg PO DAILY Qty: 7 4RF Myrbetriq 50 mg Tablet Extended Release 24 Hr 50 mg PO DAILY@1700 Qty: 7 4RF Continued lorazepam 0.5 mg Tablet 0.5 mg PO BID@0900,1700 Qty: 14 4RF pantoprazole 40 mg tablet,delayed release (DR/EC) 1 tab PO DAILY Qty: 7 0RF Discontinued famotidine 20 mg tablet 1 tab PO BEDTIME olanzapine 5 mg tablet 7.5 mg PO BEDTIME buspirone 10 mg tablet 10 mg PO BID amitriptyline 50 mg Tablet 50 mg PO BEDTIME 30 Days Qty: 30 0RF escitalopram oxalate 10 mg tablet 15 mg PO DAILY 30 Days Qty: 45 0RF Myrbetriq 50 mg Tablet Extended Release 24 Hr 50 mg PO DAILY@1700 30 Days Qty: 30 0RF zolpidem 10 mg tablet 1 tab PO BEDTIME 30 Days Qty: 30 0RF cholecalciferol (vitamin D3) [Vitamin D3] 125 mcg (5,000 unit) Tablet 125 mcg PO DAILY lorazepam 0.5 mg Tablet 0.25 mg PO DAILY PRN (Reason: anxiety) Qty: 15 0RF escitalopram oxalate 5 mg Tablet 15 mg PO DAILY Qty: 0 0RF Discharge Orders: Discharge Order (Routine); Ordered 06/28/22 Ordered By: Lucinda Platt Diet: Regular diet Activity on Discharge: As tolerated Stand Alone Forms: Patient Portal Discharge page Care Plan Goals: 1. Maintain mood 2. No SI/HI No signs of aggression towards self or others. Health Concerns: Follow up with PCP Plan of Treatment: 1. Take medications as prescribed 2. Go to nearest ED or call 911 in event of emergency Assessment: Pt with brighter, non labile, no SI/HI. No psychosis or delusions. Sleeping and eating well. No signs of aggression towards self or others.
== END 2022-06-28 11:24 | disposition home or self-care (01) | DRG 885 ==
LOC: HO.ED 14:53 → HO.PGERI 06-21 19:24
PROVIDERS: Nurse Practitioner Family; Admitting Provider Social Worker; Emergency Provider Emergency Medicine; PCP Internal Medicine; Visit Provider Social Worker
DX: F33.1 Major depressive disorder, recurrent, moderate (principal); F60.7 Dependent personality disorder; F64.0 Transsexualism; F10.21 Alcohol dependence, in remission; Z20.822 Contact with and (suspected) exposure to COVID-19; Z87.891 Personal history of nicotine dependence; Z88.1 Allergy status to other antibiotic agents; Z79.899 Other long term (current) drug therapy
CPT/HCPCS: 36415; 80048; 80053; 80061; 80076; 80143; 80179; 80307; 82077; 82607; 82746; 83036; 84443; 85025; 87635; 93005; 99285

== ENCOUNTER 2022-06-30 10:35 | Emergency (ER) | payer MEDICARE, SELFPAY ==
[2022-06-30 10:39] VITALS: BP 142/92; PULSE 74; O2SAT 97
[2022-06-30 10:40] VITALS: BP 131/87; PULSE 69; RESP 18; TEMP 36.6; O2SAT 98; BMI 30.1
--- NOTE | 2022-06-30 10:47 | ECG_ITS ---
Test Reason : anxious Blood Pressure : / mmHG Vent. Rate : 079 BPM Atrial Rate : 000 BPM P-R Int : 000 ms QRS Dur : 078 ms QT Int : 384 ms P-R-T Axes : 000 010 081 degrees QTc Int : 440 ms Normal sinus rhythm with Premature supraventricular complexes Nonspecific ST and T wave abnormality Abnormal ECG When compared with ECG of 20-JUN-2022 18:41, Premature atrial complexes are now Present Referred By: Doreen Lilly Electronically Signed By:HENRI JENNINGS MD
--- NOTE | 2022-06-30 10:48 | ED_ITS ---
HPI - Psych General Chief Complaint: Psychiatric Symptoms <ASHLEY Rubio - Last Filed: 06/30/22 13:39> Stated Complaint: FAILURE TO THRIVE <ASHLEY Rubio - Last Filed: 06/30/22 13:39> Time Seen by Provider: 06/30/22 10:41 <ASHLEY Rubio - Last Filed: 06/30/22 13:39> Source: patient, EMS and old records reviewed <ASHLEY Rubio - Last Filed: 06/30/22 13:39> Mode of arrival: EMS <ASHLEY Rubio Last Filed: 06/30/22 13:39> Limitations: no limitations <ASHLEY Rubio Last Filed: 06/30/22 13:39> History of Present Illness HPI Narrative: 71 yo transgender female to male with history of major depression with recent admission to geriatric psych unit here from 06/21 to 06/28 who presents back to the ER from home with reports of worsening depression, inability to care for self and thoughts of suicide by taking all of his pills. Patient reports that when he went home from the geriatric psych unit he was still feeling depressed, although not suicidal. When he went home he had increased depression and started developing suicidal thoughts again. He is afraid he might take all of his pills. He states he has not been eating, not caring for himself, not bathing. He reports compliance with all of his medications. He denies any overdose today. Denies any drug use. <ASHLEY Rubio - Last Filed: 06/30/22 13:39> MD complaint: suicidal ideation and feels depressed <ASHLEY Rubio - Last Filed: 06/30/22 13:39> Onset (ago): unknown <ASHLYE Rubio Last Filed: 06/30/22 13:39> Duration: constant <ASHLEY Rubio Last Filed: 06/30/22 13:39> History of same: Yes <ASHLEY Rubio Last Filed: 06/30/22 13:39> Associated psychiatric symptoms: depression and suicidal ideation <ASHLEY Rubio Last Filed: 06/30/22 13:39> Associated symptoms: denies other symptoms <ASHLEY Rubio - Last Filed: 06/30/22 13:39> Treatments prior to arrival: none <ASHLEY Rubio - Last Filed: 06/30/22 13:39> If self harm: admits thoughts of self harm and has plan <ASHLEY Rubio - Last Filed: 06/30/22 13:39> Details of plan: overdose on pills <ASHLEY Rubio - Last Filed: 06/30/22 13:39> Related Data Home Medications: Previous Rx's Medication Instructions Recorded amitriptyline 50 mg tablet 50 mg PO BEDTIME #7 tabs 06/27/22 buspirone 10 mg tablet 10 mg PO BID #14 tabs 06/27/22 cholecalciferol (vitamin D3) 25 125 mcg PO DAILY #7 tabs 06/27/22 mcg (1,000 unit) tablet escitalopram oxalate 20 mg tablet 20 mg PO DAILY #7 tabs 06/27/22 famotidine 20 mg tablet 20 mg PO BEDTIME #7 tabs 06/27/22 lorazepam 0.5 mg tablet 0.5 mg PO BID@0900,1700 #14 tabs 06/27/22 mirabegron 50 mg tablet,extended 50 mg PO DAILY@1700 #7 tabs 06/27/22 release 24 hr (Myrbetriq) olanzapine 7.5 mg tablet 7.5 mg PO BEDTIME #7 tabs 06/27/22 pantoprazole 40 mg tablet,delayed 1 tab PO DAILY #7 tabs 06/27/22 release sennosides 8.6 mg-docusate sodium 1 tab PO BID #14 tabs 06/27/22 50 mg tablet (Senna Plus) trazodone 50 mg tablet 50 mg PO BEDTIME PRN Insomnia #7 06/27/22 tabs zolpidem 10 mg tablet 10 mg PO BEDTIME #7 tabs 06/27/22 <ASHLEY Rubio - Last Filed: 06/30/22 13:39> Allergies/Adverse Reactions: Allergies Allergy/AdvReac Type Severity Reaction Status Date / Time ciprofloxacin [From CIPRO] Allergy Unknown DIARRHEA Verified 01/22/22 20:00 <ASHLEY Rubio Last Filed: 06/30/22 13:39> Review of Systems Review of Systems: Yes all other systems are reviewed and are negative <ASHLEY Rubio - Last Filed: 06/30/22 13:39> [facility] Past Medical History Medical History: Medical History Hard of hearing Tracheal stenosis Transgender <ASHLEY Rubio - Last Filed: 06/30/22 13:39> Family History Family History: Family History Father Heart disease <ASHLEY Rubio - Last Filed: 06/30/22 13:39> Social History Social History: Social History Household Members: None Housing: House Do you presently have visiting nurse or other home services: No Alcohol intake: never Patient Tobacco Use Status: Never used Tobacco Tobacco use type: Cigarette Years Smoked: 10 Smoked in Last 30 Days: No e-Cigarette/Vaping Use: Never Used Second Hand Smoke Exposure: No Use of substances other than those prescribed or required for medical reasons: No Any prior treatment program specific to substance use: No Advance Directives: No Advance Directives Information Provided: No service: No Sexual orientation: Lesbian/Jain/Homosexual <ASHLEY Rubio - Last Filed: 06/30/22 13:39> Physical Exam Vital Signs: Vital Signs: Last Vital Signs Temp 98 F 06/30/22 10:40 Pulse 69 06/30/22 10:40 Resp 18 06/30/22 12:00 BP 131/87 06/30/22 10:40 Pulse Ox 98 06/30/22 10:40 BMI result Body Mass Index 30.1 <ASHLEY Rubio - Last Filed: 06/30/22 13:39> Vital Signs: Last Vital Signs Temp 98 F 06/30/22 10:40 Pulse 69 06/30/22 10:40 Resp 18 06/30/22 12:00 BP 131/87 06/30/22 10:40 Pulse Ox 98 06/30/22 10:40 BMI result Body Mass Index 30.1 <Humble Pritchard MD - Last Filed: 06/30/22 15:41> Appearance: Alert. Oriented X3. No acute distress. Eyes: Pupils equal, round and reactive to light. ENT: Pharynx normal. Neck: Normal inspection. Neck supple. CVS: Normal heart rate and rhythm. Pulses normal. Respiratory: No respiratory distress. Breath sounds normal. Abdomen: Obese, Soft and nontender. +BS x4 Skin: Skin warm and dry. Normal skin color. Normal skin turgor. No rashes. Extremities: No lower extremity edema. Neuro/psych: Oriented X 3. No motor deficit. No sensory deficit. CN II-XII intact. Normal speech and cognition. Depressed mood, +SI. <ASHLEY Rubio - Last Filed: 06/30/22 13:39> Course Course Course Narrative: 71 yo transgender female to male presenting with worsening depression and SI. Documentation from recent admission reviewed - patient in/out of multiple psych units the last year. Dx dependent personality disorder will get basic labs, and have care team see her once medically cleared <ASHLEY Rubio - Last Filed: 06/30/22 13:39> Reevaluation(s) Reevaluation #1: Labs are unremarkable. Mild hypernatremia consistent with poor p.o. intake. Will encourage oral fluids. UA not consistent with a gross UTI. Will get care team to evaluate her. Will place patient physician observation at this time. Physician observation started at 1:35pm. Patient placed in physician observation because patient is awaiting CARE team evaluation for the possible need of inpatient psych admission. At the time observation was started patient's vital signs were stable. Patient is alert and oriented. Neuro exam is non-focal. CV: RRR and lungs are clear. Will continue to monitor. <ASHLEY Rubio - Last Filed: 06/30/22 13:39> Time: 13:37 <ASHLEY Rubio - Last Filed: 06/30/22 13:39> Medical Decision Making Differential Diagnosis Differential Diagnoses: The differential diagnosis associated with the presentation includes <ASHLEY Rubio Last Filed: 06/30/22 13:39> depression, anxiety, psychosis, mood disorder, substance use disorder, personality disorder, suicidal <ASHLEY Rubio Last Filed: 06/30/22 13:39> Admission/Observation Consideration of admission/observation: Escalation of care including admission/observation considered <ASHLEY Rubio Last Filed: 06/30/22 13:39> Consult Healthcare Provider Management of the patient was discussed with: Behavioral Health Provider <ASHLEY Rubio - Last Filed: 06/30/22 13:39> Lab Data MDM Lab Attestation statement: I reviewed the patient's lab results. <ASHLEY Rubio - Last Filed: 06/30/22 13:39> Result Diagrams: 06/30/22 10:59 06/30/22 10:59 <ASHLEY Rubio - Last Filed: 06/30/22 13:39> Labs: Lab Results 06/30/22 06/30/22 06/30/22 Range/Units 10:59 10:59 10:59 WBC 4.7 L (4.8-10.8) X10*3/uL RBC 4.01 L (4.60-5.80) X10*6/uL Hgb 12.4 L (14.0-18.0) g/dl Hct 37.9 L (42.0-52.0) % MCV 94.5 (80.0-98.0) fL MCH 30.9 (27.0-33.0) pg MCHC 32.7 (31.0-36.0) g/dl RDW 13.5 (11.0-16.0) % Plt Count 220 (160-400) X10*3/uL MPV 10.8 (9.4-12.4) fL Immature Gran % (Auto) 0.4 (0.0-0.4) % Neut % (Auto) 70.8 (45-73) % Lymph % (Auto) 14.6 L (20-40) % [place] % (Auto) 12.9 H (2-11) % Eos % (Auto) 0.9 (0-4) % Baso % (Auto) 0.4 (0-2) % Lymph # (Auto) 0.7 L (1.2-4.9) X10*3/uL [place] # (Auto) 0.6 (0.1-1.2) X10*3/uL Eos # (Auto) 0.0 (0.0-0.4) X10*3/uL Baso # (Auto) 0.0 (0.0-0.2) X10*3/uL Abs Immat Gran (auto) 0.02 (0.00-0.03) X10*3/uL Absolute Neuts (auto) 3.3 (2.0-8.3) x10*3/uL Absolute Nucleated RBC 0.000 (0.0-0.012) X10*3/uL Nucleated RBC % (auto) 0.0 (0.0-0.2) /100WBC Sodium 146 H (135-145) mmol/L Potassium 4.3 (3.3-5.1) mmol/L Chloride 109 H (96-108) mmol/L Carbon Dioxide 26 (22-29) mmol/L Anion Gap 15 (12-20) BUN 14 (9-16) mg/dL Creatinine 0.85 (0.5-1.4) mg/dL Estim Creat Clear Calc 72.2 Estimated GFR > 60 Random Glucose 124 H (60-115) mg/dL Calcium 9.0 (8.4-10.2) mg/dL Magnesium 2.2 (1.6-2.6) mg/dL Total Bilirubin 0.4 (0.0-1.0) mg/dL Direct Bilirubin < 0.2 (0.0-0.5) mg/dL AST 17 (5-37) U/L ALT 13 (0-40) U/L Alkaline Phosphatase 81 (39-117) U/L Total Protein 5.7 L (6.5-8.0) g/dL Albumin 3.9 (3.5-5.0) g/dL Urine Color Urine Appearance Urine pH (5.0-9.0) Ur Specific Byers (1.005-1.025) Urine Protein (Neg-Trace) mg/dL Urine Glucose (UA) (Negative) mg/dL Urine Ketones (Negative) mg/dL Urine Blood (Negative) Urine Nitrite (Negative) Ur Leukocyte Esterase (Negative) Urine RBC (0-2) /HPF Urine WBC (0-5) /HPF Ur Squamous Epith Cells (0-2) /HPF Urine Bacteria (None Seen) Hyaline Casts (0-2) /LPF Urine Opiates Screen (Not Detect) Urine Fentanyl Screen (Not Detect) Ur Barbiturates Screen (Not Detect) Ur Phencyclidine Scrn (Not Detect) Ur Amphetamines Screen (Not Detect) U Benzodiazepines Scrn (Not Detect) Urine Cocaine Screen (Not Detect) U Marijuana (THC) Screen (Not Detect) Ethyl Alcohol < 10 mg/dL COVID-19 ([facility]) Negative (Negative) COVID-19 Clin Com See Note 06/30/22 06/30/22 Range/Units 13:08 13:08 WBC (4.8-10.8) X10*3/uL RBC (4.60-5.80) X10*6/uL Hgb (14.0-18.0) g/dl Hct (42.0-52.0) % MCV (80.0-98.0) fL MCH (27.0-33.0) pg MCHC (31.0-36.0) g/dl RDW (11.0-16.0) % Plt Count (160-400) X10*3/uL MPV (9.4-12.4) fL Immature Gran % (Auto) (0.0-0.4) % Neut % (Auto) (45-73) % Lymph % (Auto) (20-40) % [place] % (Auto) (2-11) % Eos % (Auto) (0-4) % Baso % (Auto) (0-2) % Lymph # (Auto) (1.2-4.9) X10*3/uL [place] # (Auto) (0.1-1.2) X10*3/uL Eos # (Auto) (0.0-0.4) X10*3/uL Baso # (Auto) (0.0-0.2) X10*3/uL Abs Immat Gran (auto) (0.00-0.03) X10*3/uL Absolute Neuts (auto) (2.0-8.3) x10*3/uL Absolute Nucleated RBC (0.0-0.012) X10*3/uL Nucleated RBC % (auto) (0.0-0.2) /100WBC Sodium (135-145) mmol/L Potassium (3.3-5.1) mmol/L Chloride (96-108) mmol/L Carbon Dioxide (22-29) mmol/L Anion Gap (12-20) BUN (9-16) mg/dL Creatinine (0.5-1.4) mg/dL Estim Creat Clear Calc Estimated GFR Random Glucose (60-115) mg/dL Calcium (8.4-10.2) mg/dL Magnesium (1.6-2.6) mg/dL Total Bilirubin (0.0-1.0) mg/dL Direct Bilirubin (0.0-0.5) mg/dL AST (5-37) U/L ALT (0-40) U/L Alkaline Phosphatase (39-117) U/L Total Protein (6.5-8.0) g/dL Albumin (3.5-5.0) g/dL Urine Color Yellow Urine Appearance Cloudy Urine pH 8.0 (5.0-9.0) Ur Specific Byers 1.015 (1.005-1.025) Urine Protein Trace (Neg-Trace) mg/dL Urine Glucose (UA) Negative (Negative) mg/dL Urine Ketones Trace (Negative) mg/dL Urine Blood Negative (Negative) Urine Nitrite Negative (Negative) Ur Leukocyte Esterase Trace H (Negative) Urine RBC 0-2 (0-2) /HPF Urine WBC 0-5 (0-5) /HPF Ur Squamous Epith Cells 0-2 (0-2) /HPF Urine Bacteria None Seen (None Seen) Hyaline Casts 0-2 (0-2) /LPF Urine Opiates Screen Not Detected (Not Detect) Urine Fentanyl Screen POSITIVE H (Not Detect) Ur Barbiturates Screen Not Detected (Not Detect) Ur Phencyclidine Scrn Not Detected (Not Detect) Ur Amphetamines Screen Not Detected (Not Detect) U Benzodiazepines Scrn Not Detected (Not Detect) Urine Cocaine Screen Not Detected (Not Detect) U Marijuana (THC) Screen Not Detected (Not Detect) Ethyl Alcohol mg/dL COVID-19 ([facility]) (Negative) COVID-19 Clin Com <ASHLEY Rubio - Last Filed: 06/30/22 13:39> Lab Results 06/30/22 06/30/22 06/30/22 Range/Units 10:59 10:59 10:59 WBC 4.7 L (4.8-10.8) X10*3/uL RBC 4.01 L (4.60-5.80) X10*6/uL Hgb 12.4 L (14.0-18.0) g/dl Hct 37.9 L (42.0-52.0) % MCV 94.5 (80.0-98.0) fL MCH 30.9 (27.0-33.0) pg MCHC 32.7 (31.0-36.0) g/dl RDW 13.5 (11.0-16.0) % Plt Count 220 (160-400) X10*3/uL MPV 10.8 (9.4-12.4) fL Immature Gran % (Auto) 0.4 (0.0-0.4) % Neut % (Auto) 70.8 (45-73) % Lymph % (Auto) 14.6 L (20-40) % [place] % (Auto) 12.9 H (2-11) % Eos % (Auto) 0.9 (0-4) % Baso % (Auto) 0.4 (0-2) % Lymph # (Auto) 0.7 L (1.2-4.9) X10*3/uL [place] # (Auto) 0.6 (0.1-1.2) X10*3/uL Eos # (Auto) 0.0 (0.0-0.4) X10*3/uL Baso # (Auto) 0.0 (0.0-0.2) X10*3/uL Abs Immat Gran (auto) 0.02 (0.00-0.03) X10*3/uL Absolute Neuts (auto) 3.3 (2.0-8.3) x10*3/uL Absolute Nucleated RBC 0.000 (0.0-0.012) X10*3/uL Nucleated RBC % (auto) 0.0 (0.0-0.2) /100WBC Sodium 146 H (135-145) mmol/L Potassium 4.3 (3.3-5.1) mmol/L Chloride 109 H (96-108) mmol/L Carbon Dioxide 26 (22-29) mmol/L Anion Gap 15 (12-20) BUN 14 (9-16) mg/dL Creatinine 0.85 (0.5-1.4) mg/dL Estim Creat Clear Calc 72.2 Estimated GFR > 60 Random Glucose 124 H (60-115) mg/dL Calcium 9.0 (8.4-10.2) mg/dL Magnesium 2.2 (1.6-2.6) mg/dL Total Bilirubin 0.4 (0.0-1.0) mg/dL Direct Bilirubin < 0.2 (0.0-0.5) mg/dL AST 17 (5-37) U/L ALT 13 (0-40) U/L Alkaline Phosphatase 81 (39-117) U/L Total Protein 5.7 L (6.5-8.0) g/dL Albumin 3.9 (3.5-5.0) g/dL Urine Color Urine Appearance Urine pH (5.0-9.0) Ur Specific Byers (1.005-1.025) Urine Protein (Neg-Trace) mg/dL Urine Glucose (UA) (Negative) mg/dL Urine Ketones (Negative) mg/dL Urine Blood (Negative) Urine Nitrite (Negative) Ur Leukocyte Esterase (Negative) Urine RBC (0-2) /HPF Urine WBC (0-5) /HPF Ur Squamous Epith Cells (0-2) /HPF Urine Bacteria (None Seen) Hyaline Casts (0-2) /LPF Urine Opiates Screen (Not Detect) Urine Fentanyl Screen (Not Detect) Ur Barbiturates Screen (Not Detect) Ur Phencyclidine Scrn (Not Detect) Ur Amphetamines Screen (Not Detect) U Benzodiazepines Scrn (Not Detect) Urine Cocaine Screen (Not Detect) U Marijuana (THC) Screen (Not Detect) Ethyl Alcohol < 10 mg/dL COVID-19 ([facility]) Negative (Negative) COVID-19 Clin Com See Note 06/30/22 06/30/22 Range/Units 13:08 13:08 WBC (4.8-10.8) X10*3/uL RBC (4.60-5.80) X10*6/uL Hgb (14.0-18.0) g/dl Hct (42.0-52.0) % MCV (80.0-98.0) fL MCH (27.0-33.0) pg MCHC (31.0-36.0) g/dl RDW (11.0-16.0) % Plt Count (160-400) X10*3/uL MPV (9.4-12.4) fL Immature Gran % (Auto) (0.0-0.4) % Neut % (Auto) (45-73) % Lymph % (Auto) (20-40) % [place] % (Auto) (2-11) % Eos % (Auto) (0-4) % Baso % (Auto) (0-2) % Lymph # (Auto) (1.2-4.9) X10*3/uL [place] # (Auto) (0.1-1.2) X10*3/uL Eos # (Auto) (0.0-0.4) X10*3/uL Baso # (Auto) (0.0-0.2) X10*3/uL Abs Immat Gran (auto) (0.00-0.03) X10*3/uL Absolute Neuts (auto) (2.0-8.3) x10*3/uL Absolute Nucleated RBC (0.0-0.012) X10*3/uL Nucleated RBC % (auto) (0.0-0.2) /100WBC Sodium (135-145) mmol/L Potassium (3.3-5.1) mmol/L Chloride (96-108) mmol/L Carbon Dioxide (22-29) mmol/L Anion Gap (12-20) BUN (9-16) mg/dL Creatinine (0.5-1.4) mg/dL Estim Creat Clear Calc Estimated GFR Random Glucose (60-115) mg/dL Calcium (8.4-10.2) mg/dL Magnesium (1.6-2.6) mg/dL Total Bilirubin (0.0-1.0) mg/dL Direct Bilirubin (0.0-0.5) mg/dL AST (5-37) U/L ALT (0-40) U/L Alkaline Phosphatase (39-117) U/L Total Protein (6.5-8.0) g/dL Albumin (3.5-5.0) g/dL Urine Color Yellow Urine Appearance Cloudy Urine pH 8.0 (5.0-9.0) Ur Specific [place]ers 1.015 (1.005-1.025) Urine Protein Trace (Neg-Trace) mg/dL Urine Glucose (UA) Negative (Negative) mg/dL Urine Ketones Trace (Negative) mg/dL Urine Blood Negative (Negative) Urine Nitrite Negative (Negative) Ur Leukocyte Esterase Trace H (Negative) Urine RBC 0-2 (0-2) /HPF Urine WBC 0-5 (0-5) /HPF Ur Squamous Epith Cells 0-2 (0-2) /HPF Urine Bacteria None Seen (None Seen) Hyaline Casts 0-2 (0-2) /LPF Urine Opiates Screen Not Detected (Not Detect) Urine Fentanyl Screen POSITIVE H (Not Detect) Ur Barbiturates Screen Not Detected (Not Detect) Ur Phencyclidine Scrn Not Detected (Not Detect) Ur Amphetamines Screen Not Detected (Not Detect) U Benzodiazepines Scrn Not Detected (Not Detect) Urine Cocaine Screen Not Detected (Not Detect) U Marijuana (THC) Screen Not Detected (Not Detect) Ethyl Alcohol mg/dL COVID-19 ([facility]) (Negative) COVID-19 Clin Com <Humble Pritchard MD - Last Filed: 06/30/22 15:41> Independent Interpretation I performed an independent interpretation of an: EKG <ASHLEY Rubio - Last Filed: 06/30/22 13:39> Interpretation: EKG with normal sinus rhythm, ventricular rate 79 beats per minute, artifact present, no ST segment elevations or depressions. Normal QTC. <ASHLEY Rubio - Last Filed: 06/30/22 13:39> External Record Review External record reviewed: Inpatient record, Outpatient record, Prior outpatient labs and Prior outpatient radiology <ASHLEY Rubio - Last Filed: 06/30/22 13:39> Prescription Management I considered prescription management with: Antibiotic <ASHLEY Rubio - Last Filed: 06/30/22 13:39> trace leukocyte esterase on UA - will await urine culture <ASHLEY Rubio - Last Filed: 06/30/22 13:39> Chronic Conditions Patient?s care impacted by: Other (mental illness) <ASHLEY Rubio - Last Filed: 06/30/22 13:39> Social Determinants Patient?s care significantly limited by Social Determinants of Health including: Other Social Determinant of Health <ASHLEY Rubio - Last Filed: 06/30/22 13:39> Attestation Attending Attestation: I reviewed GIZZARD PEELER/PA/Resident note, assessment and plan. I agree with the documentation, assessment and plan unless otherwise stated. <Humble Pritchard MD - Last Filed: 06/30/22 15:41> Critical Care Time Critical Care Time Critical Care Time: No <ASHLEY Rubio - Last Filed: 06/30/22 13:39> Discharge Plan Discharge Clinical Impression: Depression, Suicidal ideation <ASHLEY Rubio - Last Filed: 06/30/22 13:39> Patient Disposition: Still a Patient <ASHLEY Rubio - Last Filed: 06/30/22 13:39> Prescriptions: No Action olanzapine 7.5 mg Tablet 7.5 mg PO BEDTIME Qty: 7 4RF amitriptyline 50 mg Tablet 50 mg PO BEDTIME Qty: 7 4RF buspirone 10 mg Tablet 10 mg PO BID Qty: 14 4RF escitalopram oxalate 20 mg Tablet 20 mg PO DAILY Qty: 7 4RF zolpidem 10 mg tablet 10 mg PO BEDTIME Qty: 7 4RF trazodone 50 mg Tablet 50 mg PO BEDTIME PRN (Reason: Insomnia) Qty: 7 4RF sennosides-docusate sodium [Senna Plus] 8.6-50 mg Tablet 1 tab PO BID Qty: 14 4RF famotidine 20 mg Tablet 20 mg PO BEDTIME Qty: 7 4RF cholecalciferol (vitamin D3) 25 mcg (1,000 unit) Tablet 125 mcg PO DAILY Qty: 7 4RF Myrbetriq 50 mg Tablet Extended Release 24 Hr 50 mg PO DAILY@1700 Qty: 7 4RF lorazepam 0.5 mg Tablet 0.5 mg PO BID@0900,1700 Qty: 14 4RF pantoprazole 40 mg tablet,delayed release (DR/EC) 1 tab PO DAILY Qty: 7 0RF <ASHLEY Rubio - Last Filed: 06/30/22 13:39> Interventions: Greenlee-Suicide Risk Severity Scale Last Done: 06/30/22 10:45 <ASHLEY Rubio - Last Filed: 06/30/22 13:39>
--- NOTE | 2022-06-30 10:59 | PHA.MEDREC ---
Pharmacy Consult ? Medication Reconciliation Pharmacy has completed the medication reconciliation. Patient was just [facility] 06/28/22. Med rec completed based on discharge summary. Bee Godfrey, PharmD
[2022-06-30 11:07] LABS: MANUAL DIFF FLAG NO
[2022-06-30 11:11] LABS: Basophils Percent Auto 0.4 % (0-2); Eosinophils Percent Auto 0.9 % (0-4); Hematocrit 37.9 % (42.0-52.0); Hemoglobin 12.4 g/dl (14.0-18.0); Imm Gran Abs Auto 0.02 X10*3/uL (0.00-0.03); Imm Gran Pct Auto 0.4 % (0.0-0.4); Lymphocytes Absolute Auto 0.7 X10*3/uL (1.2-4.9); Lymphocytes Percent Auto 14.6 % (20-40); Mean Corpuscular HGB Conc 32.7 g/dl (31.0-36.0); Mean Corpuscular Hemoglobin 30.9 pg (27.0-33.0); Mean Corpuscular Volume 94.5 fL (80.0-98.0); Mean Platelet Volume 10.8 fL (9.4-12.4); Monocytes Absolute Auto 0.6 X10*3/uL (0.1-1.2); Monocytes Percent Auto 12.9 % (2-11); Neutrophils Absolute Auto 3.3 x10*3/uL (2.0-8.3); Neutrophils Percent Auto 70.8 % (45-73); Platelet Count 220 X10*3/uL (160-400); Red Blood Count 4.01 X10*6/uL (4.60-5.80); Red Cell Distribution Width 13.5 % (11.0-16.0); White Blood Count 4.7 X10*3/uL (4.8-10.8)
[2022-06-30 11:26] VITALS: RESP 18
[2022-06-30 11:28] LABS: COVID-19 Test Negative (Negative); IDNOW Serial# 16C4AD1C
[2022-06-30 11:40] LABS: Alanine Aminotransferase 13 U/L (0-40); Albumin Level 3.9 g/dL (3.5-5.0); Alkaline Phosphatase 81 U/L (39-117); Anion Gap 15 (12-20); Aspartate Amino Transferase 17 U/L (5-37); Bilirubin Direct < 0.2 mg/dL (0.0-0.5); Bilirubin Total 0.4 mg/dL (0.0-1.0); Blood Urea Nitrogen 14 mg/dL (9-16); Carbon Dioxide 26 mmol/L (22-29); Chloride 109 mmol/L (96-108); Creatinine Clr Calc Pharmacy 72.2; Estimated Glomerular Filt Rate > 60; Ethanol < 10 mg/dL; Glucose Random 124 mg/dL (60-115); Magnesium 2.2 mg/dL (1.6-2.6); Potassium 4.3 mmol/L (3.3-5.1); Sodium 146 mmol/L (135-145); Total Protein 5.7 g/dL (6.5-8.0)
[2022-06-30 12:00] VITALS: RESP 18
[2022-06-30 13:20] LABS: Appearance Urine Cloudy; Color Urine Yellow; Glucose Urine UA Negative (Negative); Leukocyte Esterase Urine Trace (Negative); Nitrite Urine Negative (Negative); Specific Gravity - Urine 1.015 (1.005-1.025); UMIC TRIGGER UACC YES; Urine Blood Negative (Negative); Urine Ketones Trace mg/dL (Negative); Urine Protein Trace mg/dL (Neg-Trace)
[2022-06-30 13:43] LABS: Bacteria Urine None Seen (None Seen); Hyaline Casts Urine 0-2 /LPF (0-2); RBC Urine 0-2 /HPF (0-2); Squamous Epithelial Cell Urine 0-2 /HPF (0-2); WBC Urine 0-5 /HPF (0-5)
[2022-06-30 13:45] LABS: Amphetamine Screen Urine Not Detected (Not Detect); Barbiturates, Urine Not Detected (Not Detect); Benzodiazepines Screen Urine Not Detected (Not Detect); Cannabinoid Screen Urine Not Detected (Not Detect); Cocaine Screen Urine Not Detected (Not Detect); Fentanyl, urine POSITIVE (Not Detect); Opiate Screen Urine Not Detected (Not Detect); Phencyclidine Screen Urine Not Detected (Not Detect)
--- NOTE | 2022-06-30 16:51 | MHC.CARE ---
Patient evaluated by the CARE Team, disposition discharge and follow up with current providers. See written assessment for details
== END 2022-06-30 18:20 | disposition home or self-care (01) ==
PROVIDERS: Physician Assistant; Emergency Provider Emergency Medicine; PCP Internal Medicine
DX: F32.A Depression, unspecified (principal); R45.851 Suicidal ideations; Z20.822 Contact with and (suspected) exposure to COVID-19; F64.0 Transsexualism; F60.7 Dependent personality disorder; Z87.891 Personal history of nicotine dependence; Z79.899 Other long term (current) drug therapy
CPT/HCPCS: 80048; 80076; 80307; 81001; 82077; 83735; 85025; 87635; 93005; 99285

== ENCOUNTER 2023-07-19 16:30 | Outpatient (AMB) | payer MEDICARE, SELFPAY ==
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
== END 2023-07-19 16:31 | disposition home or self-care (01) ==
LOC: HO.HOP 16:31
PROVIDERS: PCP Internal Medicine; Visit Provider Clinical Nurse Specialist Psychiatric/Mental Health
DX: F33.1 Major depressive disorder, recurrent, moderate (principal); M31.30 Wegener's granulomatosis without renal involvement; F41.1 Generalized anxiety disorder; F41.0 Panic disorder [episodic paroxysmal anxiety]; F60.7 Dependent personality disorder
CPT/HCPCS: 99215

== ENCOUNTER → 2023-07-19 16:30 | Outpatient (BNVA) | payer MEDICARE, SELFPAY | PROVIDERS: PCP Internal Medicine; Visit Provider Clinical Nurse Specialist Psychiatric/Mental Health | DX: F33.1 Major depressive disorder, recurrent, moderate (principal); M31.30 Wegener's granulomatosis without renal involvement; F41.1 Generalized anxiety disorder; F41.0 Panic disorder [episodic paroxysmal anxiety]; F60.7 Dependent personality disorder | CPT/HCPCS: 99212 ==

== ENCOUNTER 2023-08-22 12:02 | Outpatient (AMB) | payer MEDICARE, SELFPAY ==
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
== END 2023-08-22 12:03 | disposition home or self-care (01) ==
LOC: HO.HOP 12:02
PROVIDERS: PCP Internal Medicine; Visit Provider Clinical Nurse Specialist Psychiatric/Mental Health
DX: F60.7 Dependent personality disorder (principal); F33.1 Major depressive disorder, recurrent, moderate; F41.1 Generalized anxiety disorder; F41.0 Panic disorder [episodic paroxysmal anxiety]
CPT/HCPCS: 99214

== ENCOUNTER → 2023-08-22 12:02 | Outpatient (BNVA) | payer MEDICARE, SELFPAY | PROVIDERS: PCP Internal Medicine; Visit Provider Clinical Nurse Specialist Psychiatric/Mental Health ==

== ENCOUNTER → 2023-08-31 15:49 | Outpatient (REF) | payer MEDICARE, SELFPAY ==
--- NOTE | 2023-08-31 15:52 | ECG_ITS ---
Test Reason : [facility] Blood Pressure : / mmHG Vent. Rate : 089 BPM Atrial Rate : 089 BPM P-R Int : 164 ms QRS Dur : 072 ms QT Int : 356 ms P-R-T Axes : 043 035 070 degrees QTc Int : 433 ms Normal sinus rhythm with sinus arrhythmia Nonspecific T wave abnormality Abnormal ECG When compared with ECG of 30-JUN-2022 11:09, Premature supraventricular complexes are no longer Present Referred By: Geovanna Davis Electronically Signed By:Jl Padilla
== END ==
LOC: HO.CARD 15:49
PROVIDERS: Visit Provider Clinical Nurse Specialist Psychiatric/Mental Health
DX: Z79.899 Other long term (current) drug therapy (principal); F41.1 Generalized anxiety disorder; F33.1 Major depressive disorder, recurrent, moderate
CPT/HCPCS: 93005; 99212

== ENCOUNTER → 2023-08-31 15:52 | Outpatient (BNV) | payer MEDICARE, SELFPAY | PROVIDERS: Visit Provider Internal Medicine Cardiovascular Disease | DX: Z79.899 Other long term (current) drug therapy (principal); R94.31 Abnormal electrocardiogram [ECG] [EKG] | CPT/HCPCS: 93010 ==

== ENCOUNTER 2023-08-31 16:58 | Outpatient (AMB) | payer MEDICARE, SELFPAY ==
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
== END 2023-08-31 16:59 | disposition home or self-care (01) ==
LOC: HO.HOP 16:58
PROVIDERS: PCP Internal Medicine; Visit Provider Clinical Nurse Specialist Psychiatric/Mental Health
DX: F41.1 Generalized anxiety disorder (principal); F41.0 Panic disorder [episodic paroxysmal anxiety]; F60.7 Dependent personality disorder; F33.1 Major depressive disorder, recurrent, moderate
CPT/HCPCS: 99214

== ENCOUNTER 2023-10-17 16:08 | Outpatient (AMB) | payer MEDICARE, SELFPAY ==
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
== END 2023-10-17 16:10 | disposition home or self-care (01) ==
LOC: HO.HOP 16:08
PROVIDERS: Visit Provider Clinical Nurse Specialist Psychiatric/Mental Health
DX: F41.1 Generalized anxiety disorder (principal); F41.0 Panic disorder [episodic paroxysmal anxiety]; F60.7 Dependent personality disorder; F33.1 Major depressive disorder, recurrent, moderate
CPT/HCPCS: 99214

== ENCOUNTER → 2023-10-17 16:08 | Outpatient (BNVA) | payer MEDICARE, SELFPAY | PROVIDERS: Visit Provider Clinical Nurse Specialist Psychiatric/Mental Health | DX: F41.1 Generalized anxiety disorder (principal); F41.0 Panic disorder [episodic paroxysmal anxiety]; F60.7 Dependent personality disorder; F33.1 Major depressive disorder, recurrent, moderate | CPT/HCPCS: 99212 ==

== ENCOUNTER 2023-11-14 15:00 | Outpatient (AMB) | payer MEDICARE, SELFPAY ==
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
== END 2023-11-14 15:23 | disposition home or self-care (01) ==
LOC: HO.HOP 15:00
PROVIDERS: Visit Provider Clinical Nurse Specialist Psychiatric/Mental Health
DX: F41.1 Generalized anxiety disorder (principal); F41.0 Panic disorder [episodic paroxysmal anxiety]; F60.7 Dependent personality disorder; F33.1 Major depressive disorder, recurrent, moderate
CPT/HCPCS: 99214

== ENCOUNTER → 2023-11-14 15:00 | Outpatient (BNVA) | payer MEDICARE, SELFPAY | PROVIDERS: Visit Provider Clinical Nurse Specialist Psychiatric/Mental Health | DX: F33.1 Major depressive disorder, recurrent, moderate (principal); F41.1 Generalized anxiety disorder; F41.0 Panic disorder [episodic paroxysmal anxiety]; F60.7 Dependent personality disorder | CPT/HCPCS: 99212 ==

== ENCOUNTER 2023-12-12 16:13 | Outpatient (AMB) | payer MEDICARE, SELFPAY ==
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
== END 2023-12-12 16:28 | disposition home or self-care (01) ==
LOC: HO.HOP 16:13
PROVIDERS: Visit Provider Clinical Nurse Specialist Psychiatric/Mental Health
DX: F33.1 Major depressive disorder, recurrent, moderate (principal); F60.7 Dependent personality disorder; F41.1 Generalized anxiety disorder; F41.0 Panic disorder [episodic paroxysmal anxiety]
CPT/HCPCS: 99214

== ENCOUNTER → 2023-12-12 16:13 | Outpatient (BNVA) | payer MEDICARE, SELFPAY | PROVIDERS: Visit Provider Clinical Nurse Specialist Psychiatric/Mental Health | DX: F33.1 Major depressive disorder, recurrent, moderate (principal); F60.7 Dependent personality disorder; F41.1 Generalized anxiety disorder; F41.0 Panic disorder [episodic paroxysmal anxiety]; Z79.899 Other long term (current) drug therapy | CPT/HCPCS: 99212 ==

== ENCOUNTER 2024-03-27 12:44 | Emergency (ER) | payer MEDICARE, SELFPAY ==
[2024-03-27 12:50] VITALS: BP 116/71; PULSE 85; RESP 16; TEMP 36.1; O2SAT 98; BMI 28.3
--- NOTE | 2024-03-27 12:54 | ED.PSYCH ---
HPI - Psych General Chief Complaint: Psychiatric Symptoms Stated Complaint: crisis Time Seen by Provider: 03/27/24 13:18 Source: patient Mode of arrival: ambulatory Limitations: no limitations History of Present Illness ED Provider: Renee Elizabeth PA-C HPI Narrative: Patient is a 73 year old assigned female at , now male, with a history of MDD, anxiety, and GERD presenting to the emergency department today with suicidal ideation. Patient states that he lost his therapist and has been dealing with a lot of grief lately. Patient denies any dizziness, lightheadedness, abdominal pain, nausea, vomiting, fever, chills, blurry vision, double vision, loss of vision, chest pain, difficulty breathing, shortness of breath, back pain, night sweats, pain with urination, increased urinary frequency, increased urinary urgency, blood in his urine or stool, syncope or a near syncopal episode, recent trauma or falls, bowel incontinence, bladder incontinence, or any other complaints at this time. Relieving factors: none Exacerbating factors: none Associated psychiatric symptoms: none Associated symptoms: denies other symptoms Treatments prior to arrival: none Related Data Home Medications ?Medication ?Instructions ?Recorded ?Confirmed cholecalciferol (vitamin D3) 125 125 mcg PO DAILY 03/27/24 03/27/24 mcg (5,000 unit) capsule Previous Rx's ?Medication ?Instructions ?Recorded clonazepam 1 mg tablet 1 mg PO BID 30 days #60 tabs 12/12/23 duloxetine 60 mg capsule,delayed 60 mg PO BID #60 caps 12/12/23 release olanzapine 7.5 mg tablet (Zyprexa) 7.5 mg PO BEDTIME 30 days #30 tabs 12/12/23 lamotrigine 100 mg tablet 100 mg PO DAILY #90 tabs 01/18/24 Allergies Allergy/AdvReac Type Severity Reaction Status Date / Time ciprofloxacin [From CIPRO] Allergy Unknown DIARRHEA Verified 03/27/24 12:53 Review of Systems Constitutional: Constitutional: Reports no additional constitutional complaints, Denies chills, Denies fever(s) and Denies night sweats Eyes: Eyes: Reports no additional eye complaints, Denies blurry vision, Denies change in vision, Denies diplopia, Denies eye discharge, Denies loss of vision and Denies eye pain ENT: Denies dizziness Cardiovascular: Cardiovascular: Reports no additional cardiovascular complaints, Denies chest pain, Denies lightheadedness, Denies Loss of Consciousness and Denies dyspnea Respiratory: Respiratory: Reports no additional respiratory complaints and Denies dyspnea Gastrointestinal: Gastrointestinal: Reports no additional gastrointestinal complaints, Denies abdominal pain, Denies melena, Denies hematochezia, Denies change in bowel habits and Denies change in stool character Genitourinary: Genitourinary: Reports no additional male genitourinary complaints, Denies hematuria, Denies oliguria, Denies difficulty urinating, Denies dysuria, Denies urinary frequency, Denies urinary hesitancy, Denies urinary incontinence and Denies urinary urgency Musculoskeletal: Musculoskeletal: Reports no additional musculoskeletal complaints, Denies numbness and Denies tingling Neurologic: Denies dizziness, Denies loss of vision, Denies numbness and Denies tingling Psychiatric: Psychiatric: Reports no additional psychiatric complaints, Denies homicidal ideation and Reports suicidal ideation Endocrine: Endocrine: Reports no additional endocrine complaints Hematologic/Lymphatic: Hematologic/Lymphatic: Reports no additional hematologic/lymphatic complaints Allergic/Immunologic: Allergic/Immunologic: Reports no additional allergic/immunologic complaints [facility] Past Medical History Attestation statement: The following information was validated with the patient. Source: old records reviewed and nursing notes reviewed Medical History Transgender Hard of hearing Tracheal stenosis Family History Family History Father Heart disease Social History Social History Household Members: None Housing: House Do you presently have visiting nurse or other home services: No Alcohol intake: never Patient Tobacco Use Status: Never used Tobacco Tobacco use type: Cigarette Years Smoked: 10 e-Cigarette/Vaping Use: Never Used Second Hand Smoke Exposure: No service: No Sexual orientation: Lesbian/Jain/Homosexual Physical Exam Vital Signs: Vital Signs: Last Vital Signs Temp 98.8 F 03/27/24 23:13 Pulse 64 03/27/24 23:13 Resp 16 03/27/24 23:13 BP 114/69 03/27/24 23:13 Pulse Ox 97 03/27/24 23:13 O2 Del Method Room Air 03/27/24 23:13 BMI result Body Mass Index 28.3 Const: General: cooperative, no acute distress, alert and awake Nutritional Appearance: well nourished Orientation/consciousness: patient oriented x3 Limitations: no limitations HEENT: Head: Yes normal to inspection and Yes atraumatic Ears: hearing grossly normal bilaterally and external ears normal General nose exam: Normal external nose present, no nasal discharge noted and no epistaxis Face and sinus: Yes normal facial exam, No abrasion and No laceration Mouth: Normal oral and palatal mucosa present, no drooling and no muffled voice Eyes: General: appearance normal, both eyes and all related structures Periorbital: periorbital findings normal Eyelids: Yes eyelids normal Conjunctivae: conjunctivae normal Pupils: Equal, round and reactive pupils present EOM: EOMs intact bilaterally Neck: Neck: Yes normal visual inspection, Yes full ROM and Yes no lymphadenopathy Chest: Chest palpation & inspection: normal inspection of the chest Resp: Effort & Inspection: normal respiratory effort and able to speak in complete sentences GI: Inspection: Yes normal to inspection Neuro: General: patient oriented x3 and moves all extremities Cranial nerves: Yes Equal, round and reactive pupils present Cognition (Neuro): normal cognition Extrem: General: Yes normal to inspection, Yes full ROM and Yes capillary refill normal Psych: Appearance: grossly normal Mental Status: mental status grossly normal Affect: normal affect Attitude: cooperative Thought content: Suicidality present Course Course Course Narrative: This is a Rapid Medical Examination (RME) performed by Ayleen Mendoza PA-C in triage. Full HPI, ROS, assessment and treatment plan per primary provider in the Main ED. 73 yo male hx of MDD, MILKA, GERD here for eval of increasing depression and failure to thrive. admits to SI with thoughts of ending his life by not eating. reports decreased PO intake, only eating small amts of cereal. no etoh or drug use. no physical concerns. reports grief surrounding losing his therapist of 40 yrs and also losing his cat. Plan: medical clearance for care team Reevaluation(s) Reevaluation #1: observation care revealed that the patient does NOT meet psychiatric necessity for hospitalization. final disposition discussed with the patient. The patient completed observation care at 237pm cleared by CARE team Medications Administered Generic Name Dose Route Start Last Admin Trade Name Freq PRN Reason Stop Dose Admin Clonazepam 1 mg 03/27/24 21:00 11/07/24 08:40 Clonazepam 1 Mg Tablet PO 1 mg BID SAL Administration Duloxetine HCl 60 mg 03/27/24 21:00 03/28/24 08:40 Duloxetine Hcl 60 Mg Capsule.Dr PO 60 mg BID SAL Administration Lamotrigine 100 mg 03/28/24 09:00 03/28/24 08:40 Lamotrigine 100 Mg Tablet PO 100 mg DAILY SAL Administration Olanzapine 7.5 mg 03/27/24 21:00 03/27/24 20:54 Olanzapine 7.5 Mg Tablet PO 7.5 mg BEDTIME SAL Administration Vitamin D 125 mcg 03/28/24 09:00 03/28/24 08:40 Cholecalciferol (Vitamin D3) 25 Mcg Tablet PO 125 mcg DAILY SAL Administration Discontinued Medications Generic Name Dose Route Start Last Admin Trade Name Sofi PRN Reason Stop Dose Admin Diphenhydramine HCl 25 mg 03/28/24 00:32 03/28/24 00:41 Diphenhydramine Hcl 25 Mg Capsule PO 03/28/24 00:33 25 mg ONCE ONE Administration Medical Decision Making Medical Decision Making MDM Narrative: Patient is a 73 year old assigned female at , now male, with a history of MDD, anxiety, and GERD presenting to the emergency department today with suicidal ideation. Patient's physical exam was unremarkable. Patient's blood work was unremarkable. Patient was evaluated by the CARE team who recommended inpatient level of psychiatric care. I explained my physical exam findings as well as all test results to the patient. I answered all questions asked by the patient. Patient verbalized agreement and understanding with this treatment plan and inpatient level of psychiatric care. Differential Diagnosis Differential Diagnoses: The differential diagnosis associated with the presentation includes Suicidal ideation Depression Admission/Observation Consideration of admission/observation: Escalation of care including admission/observation considered Patient to be admitted or transferred for inpatient level of psychiatric care. Consult Healthcare Provider Management of the patient was discussed with: Behavioral Health Provider (spoke to the CARE Team as noted in the MDM Rationale portion of this note. ) Lab Data [facility] Lab Attestation statement: I reviewed the patient's lab results. My interpretation of these results are in the MDM Rationale portion of this note. 03/27/24 13:31 03/27/24 13:31 Labs: Lab Results 03/27/24 03/27/24 Range/Units 13:31 16:09 WBC 5.1 (4.8-10.8) X10*3/uL RBC 3.79 L (4.60-5.80) X10*6/uL Hgb 12.1 L (14.0-18.0) g/dl Hct 36.1 L (42.0-52.0) % MCV 95.3 (80.0-98.0) fL MCH 31.9 (27.0-33.0) pg MCHC 33.5 (31.0-36.0) g/dl RDW 13.2 (11.0-16.0) % Plt Count 250 (160-400) X10*3/uL MPV 10.3 (9.4-12.4) fL Immature Gran % (Auto) 0.4 (0.0-0.4) % Neut % (Auto) 69.6 (45-73) % Lymph % (Auto) 16.4 L (20-40) % [place] % (Auto) 12.8 H (2-11) % Eos % (Auto) 0.4 (0-4) % Baso % (Auto) 0.4 (0-2) % Lymph # (Auto) 0.8 L (1.2-4.9) X10*3/uL [place] # (Auto) 0.7 (0.1-1.2) X10*3/uL Eos # (Auto) 0.0 (0.0-0.4) X10*3/uL Baso # (Auto) 0.0 (0.0-0.2) X10*3/uL Abs Immat Gran (auto) 0.02 (0.00-0.03) X10*3/uL Absolute Neuts (auto) 3.5 (2.0-8.3) x10*3/uL Absolute Nucleated RBC 0.000 (0.0-0.012) X10*3/uL Nucleated RBC % (auto) 0.0 (0.0-0.2) /100WBC Sodium 142 (135-145) mmol/L Potassium 4.4 (3.3-5.1) mmol/L Chloride 107 (96-108) mmol/L Carbon Dioxide 28 (22-29) mmol/L Anion Gap 11 L (12-20) BUN 14 (9-16) mg/dL Creatinine 0.99 (0.5-1.4) mg/dL Estim Creat Clear Calc 58.4 Estimated GFR > 60 Random Glucose 84 (60-115) mg/dL Calcium 9.4 (8.4-10.2) mg/dL Magnesium 2.3 (1.6-2.6) mg/dL Total Bilirubin 0.3 (0.0-1.0) mg/dL AST 23 (5-37) U/L ALT 21 (0-40) U/L Alkaline Phosphatase 74 (39-117) U/L Total Protein 6.3 L (6.5-8.0) g/dL Albumin 4.0 (3.5-5.0) g/dL Urine Color Dark Yellow Urine Appearance Cloudy Urine pH 7.5 (5.0-9.0) Ur Specific [place] 1.025 (1.005-1.025) Urine Protein 30 (1+) H (Neg-Trace) mg/dL Urine Glucose (UA) Negative (Negative) mg/dL Urine Ketones Trace (Negative) mg/dL Urine Blood Negative (Negative) Urine Nitrite Negative (Negative) Ur Leukocyte Esterase Moderate (2+) H (Negative) Urine RBC 0-2 (0-2) /HPF Urine WBC 11-20 (0-5) /HPF Ur Squamous Epith Cells 0-2 (0-2) /HPF Urine Bacteria None Seen (None Seen) Hyaline Casts 3-5 (0-2) /LPF Salicylates < 5.0 L (15-30) mg/dL Urine Opiates Screen Not Detected (Not Detect) Ur Buprenorphine Scrn Not Detected (Not Detect) ng/mL Ur Oxycodone Screen Not Detected (Not Detect) ng/mL Urine Methadone Screen Not Detected (Not Detect) ng/mL Urine Fentanyl Screen Not Detected (Not Detect) Acetaminophen < 3 (<30) mcg/mL Ur Barbiturates Screen Not Detected (Not Detect) Ur Phencyclidine Scrn Not Detected (Not Detect) Ur Amphetamines Screen Not Detected (Not Detect) U Benzodiazepines Scrn Not Detected (Not Detect) Urine Cocaine Screen Not Detected (Not Detect) U Marijuana (THC) Screen Not Detected (Not Detect) Ethyl Alcohol < 10 mg/dL Critical Care Time Critical Care Time Critical Care Time: Yes Total Critical Care Time: 31 Attestation: I spent 31 minutes of Critical Care Time with this patient. This does not include time spent on separately reported billable procedures. Discharge Plan Discharge Clinical Impression: Suicidal ideation Patient Disposition: Still a Patient Instructions: Help Prevent Suicide (ED) Additional Instructions: TMS consult 04/01/24 4pm - on [facility] floor of [facility] present to main entrance therapy appointment 1pm this Monday with Ethel christiano Duran Years return for any worsening symptoms or concerns Prescriptions: No Action lamotrigine 100 mg tablet 100 mg PO DAILY Qty: 90 0RF cholecalciferol (vitamin D3) 125 mcg (5,000 unit) capsule 125 mcg PO DAILY clonazepam 1 mg tablet 1 mg PO BID 30 Days Qty: 60 1RF duloxetine 60 mg capsule,delayed release(DR/EC) 60 mg PO BID Qty: 60 1RF olanzapine [Zyprexa] 7.5 mg tablet 7.5 mg PO BEDTIME 30 Days Qty: 30 3RF Interventions: [place]-Suicide Risk Severity Scale Last Done: 03/28/24 00:46 Print Language: Ukrainian
[2024-03-27 13:14] VITALS: BP 112/78; PULSE 88; RESP 14; TEMP 37; O2SAT 97
[2024-03-27 13:46] LABS: MANUAL DIFF FLAG NO
[2024-03-27 13:48] LABS: Basophils Percent Auto 0.4 % (0-2); Eosinophils Percent Auto 0.4 % (0-4); Hematocrit 36.1 % (42.0-52.0); Hemoglobin 12.1 g/dl (14.0-18.0); Imm Gran Abs Auto 0.02 X10*3/uL (0.00-0.03); Imm Gran Pct Auto 0.4 % (0.0-0.4); Lymphocytes Absolute Auto 0.8 X10*3/uL (1.2-4.9); Lymphocytes Percent Auto 16.4 % (20-40); Mean Corpuscular HGB Conc 33.5 g/dl (31.0-36.0); Mean Corpuscular Hemoglobin 31.9 pg (27.0-33.0); Mean Corpuscular Volume 95.3 fL (80.0-98.0); Mean Platelet Volume 10.3 fL (9.4-12.4); Monocytes Absolute Auto 0.7 X10*3/uL (0.1-1.2); Monocytes Percent Auto 12.8 % (2-11); Neutrophils Absolute Auto 3.5 x10*3/uL (2.0-8.3); Neutrophils Percent Auto 69.6 % (45-73); Platelet Count 250 X10*3/uL (160-400); Red Blood Count 3.79 X10*6/uL (4.60-5.80); Red Cell Distribution Width 13.2 % (11.0-16.0); White Blood Count 5.1 X10*3/uL (4.8-10.8)
[2024-03-27 14:03] LABS: Acetaminophen LAB < 3 mcg/mL (<30); Alanine Aminotransferase 21 U/L (0-40); Alkaline Phosphatase 74 U/L (39-117); Anion Gap 11 (12-20); Aspartate Amino Transferase 23 U/L (5-37); Bilirubin Total 0.3 mg/dL (0.0-1.0); Blood Urea Nitrogen 14 mg/dL (9-16); Calcium 9.4 mg/dL (8.4-10.2); Carbon Dioxide 28 mmol/L (22-29); Chloride 107 mmol/L (96-108); Creatinine Clr Calc Pharmacy 58.4; Estimated Glomerular Filt Rate > 60; Ethanol < 10 mg/dL; Glucose Random 84 mg/dL (60-115); Magnesium 2.3 mg/dL (1.6-2.6); Potassium 4.4 mmol/L (3.3-5.1); Salicylate < 5.0 mg/dL (15-30); Sodium 142 mmol/L (135-145); Total Protein 6.3 g/dL (6.5-8.0)
--- NOTE | 2024-03-27 15:56 | ECG_ITS ---
Test Reason : med clearance for psych admit Blood Pressure : / mmHG Vent. Rate : 060 BPM Atrial Rate : 060 BPM P-R Int : 166 ms QRS Dur : 078 ms QT Int : 406 ms P-R-T Axes : 020 032 058 degrees QTc Int : 406 ms Normal sinus rhythm Normal ECG When compared with ECG of 31-AUG-2023 15:54, Vent. rate has decreased BY 29 BPM Referred By: Renee Elizabeth Electronically Signed By:HENRI JENNINGS MD
[2024-03-27 16:32] LABS: Amphetamine Screen Urine Not Detected (Not Detect); Barbiturates, Urine Not Detected (Not Detect); Benzodiazepines Screen Urine Not Detected (Not Detect); Buprenorphine Scr Not Detected (Not Detect); Cannabinoid Screen Urine Not Detected (Not Detect); Cocaine Screen Urine Not Detected (Not Detect); Fentanyl, urine Not Detected (Not Detect); Methadone Screen, Urine Not Detected (Not Detect); Opiate Screen Urine Not Detected (Not Detect); Oxycodone Screen Urine Not Detected (Not Detect); Phencyclidine Screen Urine Not Detected (Not Detect)
[2024-03-27 16:53] LABS: Appearance Urine Cloudy; Color Urine Dark Yellow; Glucose Urine UA Negative (Negative); Leukocyte Esterase Urine Moderate (2+) (Negative); Nitrite Urine Negative (Negative); PH 7.5 (5.0-9.0); Specific Gravity - Urine 1.025 (1.005-1.025); UMIC TRIGGER UACC YES; Urine Blood Negative (Negative); Urine Ketones Trace mg/dL (Negative); Urine Protein 30 (1+) mg/dL (Neg-Trace)
[2024-03-27 17:39] LABS: Bacteria Urine None Seen (None Seen); RBC Urine 0-2 /HPF (0-2); Squamous Epithelial Cell Urine 0-2 /HPF (0-2); UACC Culture Trigger YES
[2024-03-27 18:00] VITALS: BP 110/60; PULSE 63; RESP 16; TEMP 36.8; O2SAT 98
--- NOTE | 2024-03-27 18:06 | PC.NURSE ---
medication list updated per last filled, pt confirmed that he is no longer taking iron supplement and confirmed that he has started taking a vit D supplement as reflected in his last filled rx.
[2024-03-27] MEDS: DULoxetine HCl 60 MG CAPSULE.DR PO (20:54)
[2024-03-27] MEDS: clonazePAM 1 MG TABLET PO (20:54)
[2024-03-27] MEDS: OLANZapine 7.5 MG TABLET PO (20:54)
[2024-03-27 23:13] VITALS: BP 114/69; PULSE 64; RESP 16; TEMP 37.1; O2SAT 97
[2024-03-28] MEDS: diphenhydrAMINE HCL 25 MG CAPSULE PO (00:41)
--- NOTE | 2024-03-28 07:37 | PC.NURSE ---
Assumed care of patient at 0645, patient appears to be in no apparent distress this am, calm and cooperative, offering no complaints to this RN. Continue plan of care for larry-psych bedsearch
[2024-03-28] MEDS: DULoxetine HCl 60 MG CAPSULE.DR PO (08:40)
[2024-03-28] MEDS: lamoTRIgine 100 MG TABLET PO (08:40)
[2024-03-28] MEDS: Cholecalciferol (Vitamin D3) 25 MCG TABLET 125 MCG PO (08:40)
[2024-03-28] MEDS: clonazePAM 1 MG TABLET PO (08:40)
--- NOTE | 2024-03-28 10:45 | MHC.CARE ---
[facility] bed[facility] was conducted for this pt, however, there are no appropriate beds available at this time. Search is now exhausted and will resume tomorrow if deemed appropriate. Referral was faxed to the following facilities. [place] - no beds [facility] - no beds [facility] - no beds [facility] - no response for the past 2 days [place] - no beds [facility] - no beds [facility] - female bed; cannot accommodate due to FTM status would have to go into a male bed [facility] - male bed; cannot accommodate due to FTM status would need a single
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
[2024-03-28 15:00] VITALS: BP 106/69; PULSE 66; RESP 16; TEMP 36.9; O2SAT 96
== END 2024-03-28 15:03 | disposition still patient (30) ==
PROVIDERS: Physician Assistant Medical; Emergency Provider Emergency Medicine
DX: R45.851 Suicidal ideations (principal); F32.9 Major depressive disorder, single episode, unspecified; F41.1 Generalized anxiety disorder; F60.7 Dependent personality disorder; F64.0 Transsexualism; Z79.899 Other long term (current) drug therapy
CPT/HCPCS: 36415; 80053; 80143; 80179; 80307; 81001; 83735; 85025; 87086; 87147; 93005; 99284; 99285; S9485

== ENCOUNTER → 2024-03-27 14:02 | Outpatient (BNV) | payer MEDICARE, SELFPAY | PROVIDERS: Emergency Provider Emergency Medicine; Visit Provider Social Worker | DX: F60.9 Personality disorder, unspecified (principal); F33.1 Major depressive disorder, recurrent, moderate | CPT/HCPCS: 99223 ==

== ENCOUNTER → 2024-03-27 15:56 | Outpatient (BNV) | payer MEDICARE, SELFPAY | PROVIDERS: Emergency Provider Emergency Medicine; Visit Provider Internal Medicine Cardiovascular Disease | DX: R45.851 Suicidal ideations (principal) | CPT/HCPCS: 93010 ==

== ENCOUNTER → 2024-04-03 09:20 | Outpatient (BNV) | payer MEDICARE, SELFPAY | PROVIDERS: Visit Provider Psychiatry & Neurology Psychiatry | DX: F33.2 Major depressive disorder, recurrent severe without psychotic features (principal) | CPT/HCPCS: 90867; 90868 ==

== ENCOUNTER 2024-05-25 12:43 | Inpatient (IN) | payer MEDICARE, SELFPAY ==
[2024-05-25 12:53] VITALS: BP 138/104; PULSE 102; O2SAT 98
[2024-05-25 13:02] VITALS: BP 132/84; PULSE 90; RESP 18; TEMP 36.7; O2SAT 96; BMI 28.3
[2024-05-25 14:51] LABS: MANUAL DIFF FLAG NO
[2024-05-25 14:57] LABS: Basophils Percent Auto 0.5 % (0-2); Eosinophils Percent Auto 0.2 % (0-4); Hematocrit 38.4 % (42.0-52.0); Hemoglobin 12.8 g/dl (14.0-18.0); Imm Gran Abs Auto 0.04 X10*3/uL (0.00-0.03); Imm Gran Pct Auto 0.6 % (0.0-0.4); Lymphocytes Absolute Auto 0.7 X10*3/uL (1.2-4.9); Lymphocytes Percent Auto 10.8 % (20-40); Mean Corpuscular HGB Conc 33.3 g/dl (31.0-36.0); Mean Corpuscular Hemoglobin 31.7 pg (27.0-33.0); Mean Platelet Volume 10.5 fL (9.4-12.4); Monocytes Absolute Auto 0.5 X10*3/uL (0.1-1.2); Monocytes Percent Auto 7.2 % (2-11); Neutrophils Absolute Auto 5.3 x10*3/uL (2.0-8.3); Neutrophils Percent Auto 80.7 % (45-73); Platelet Count 272 X10*3/uL (160-400); Red Blood Count 4.04 X10*6/uL (4.60-5.80); Red Cell Distribution Width 13.2 % (11.0-16.0); White Blood Count 6.5 X10*3/uL (4.8-10.8)
--- NOTE | 2024-05-25 15:01 | ED_ITS ---
HPI - Anxiety General Chief Complaint: Anxiety Stated Complaint: ANXIETY Time Seen by Provider: 05/25/24 14:29 Source: patient and EMS Mode of arrival: EMS Limitations: no limitations History of Present Illness ED Provider: Debbi Eastman APRN HPI narrative: 73 yo patient with history of anxiety, depression here seeking klonopin dose. Patient reports last dose was 1mg on 05/19. There is a prescription for the refill at [facility] on [address] but the patient's car broke down and they do not have transportation to get there till Monday. Spoke to prescriber today who referred patient into the emergency room with concern for withdrawal. Patient normally takes 1mg BID scheduled. Patient feels anxious. Denies SI/HI/AVH/hallucinations. Does not feel that they can walk to the pharmacy or find a friend to pick it up or drive them there to get it before Monday. Related Data Home Medications ?Medication ?Instructions ?Recorded ?Confirmed cholecalciferol (vitamin D3) 125 125 mcg PO DAILY 03/27/24 03/27/24 mcg (5,000 unit) capsule Previous Rx's ?Medication ?Instructions ?Recorded duloxetine 60 mg capsule,delayed 60 mg PO BID #60 caps 04/30/24 release lamotrigine 100 mg tablet 100 mg PO DAILY #90 tabs 04/30/24 olanzapine 7.5 mg tablet (Zyprexa) 7.5 mg PO BEDTIME 30 days #30 tabs 04/30/24 clonazepam 1 mg tablet 1 mg PO BID 30 days #60 tabs 05/17/24 Allergies Allergy/AdvReac Type Severity Reaction Status Date / Time ciprofloxacin [From CIPRO] Allergy Unknown DIARRHEA Verified 05/25/24 13:05 Review of Systems 2 Review of Systems: Yes all other systems are reviewed and are negative Constitutional: Constitutional: Reports no additional constitutional complaints, Denies body ache(s), Denies chills, Denies fever(s), Denies headache(s) and Denies weakness Eyes: Eyes: Reports no additional eye complaints and Denies change in vision ENT: Reports system reviewed and no additional complaints, except as documented, Denies dizziness, Denies headache(s), Denies nasal congestion, Denies nasal discharge and Denies neck pain Cardiovascular: Cardiovascular: Reports no additional cardiovascular complaints, Denies chest pain, Denies leg edema and Denies dyspnea Respiratory: Respiratory: Reports no additional respiratory complaints, Denies cough and Denies dyspnea Gastrointestinal: Gastrointestinal: Reports no additional gastrointestinal complaints, Denies abdominal pain, Denies diarrhea, Denies nausea and Denies vomiting Genitourinary: Genitourinary: Denies urinary incontinence Musculoskeletal: Musculoskeletal: Reports no additional musculoskeletal complaints, Denies back pain, Denies arthralgias, Denies joint swelling, Denies neck pain, Denies numbness and Denies tingling Integumentary/Breasts: Skin/Breast: Reports system reviewed and no additional complaints, except as docu and Denies rash Neurologic: Reports system reviewed and no additional complaints, except as documented, Denies Abnormal speech present, Denies dizziness, Denies headache(s), Denies numbness, Denies tingling and Denies weakness Psychiatric: Psychiatric: Reports anxiety, Denies homicidal ideation and Denies suicidal ideation PMF Past Medical History Attestation statement: The following information was validated with the patient. Source: nursing notes reviewed Medical History Transgender Hard of hearing Tracheal stenosis Family History Family History Father Heart disease Social History Social History Household Members: None Housing: House Do you presently have visiting nurse or other home services: No Alcohol intake: never Patient Tobacco Use Status: Never used Tobacco Tobacco use type: Cigarette Years Smoked: 10 Smoked in Last 30 Days: No e-Cigarette/Vaping Use: Never Used Second Hand Smoke Exposure: No Use of substances other than those prescribed or required for medical reasons: No Advance Directives: No Advance Directives Information Provided: No Do you have a plan to hurt others: No Plan service: No Sexual orientation: Lesbian/Jain/Homosexual Physical Exam 2 Vital Signs: Vital Signs: Last Vital Signs Temp 98.1 F 05/25/24 13:02 Pulse 90 05/25/24 13:02 Resp 18 05/25/24 13:02 BP 132/84 05/25/24 13:02 Pulse Ox 96 05/25/24 13:02 O2 Del Method Room Air 01/04/25 13:02 BMI result Body Mass Index 28.3 Const: General: cooperative, healthy appearing, comfortable and no acute distress Orientation/consciousness: patient oriented x3 Limitations: no limitations HEENT: Head: Yes normal to inspection Ears: hearing grossly normal bilaterally General nose exam: Normal external nose present Face and sinus: Yes normal facial exam Mouth: Normal oral and palatal mucosa present Throat: Yes posterior oropharynx normal Eyes: General: appearance normal, both eyes and all related structures P upils: Equal, round and reactive pupils present Neck: Neck: Yes normal visual inspection Chest: Chest palpation & inspection: normal inspection of the chest Resp: Effort & Inspection: normal respiratory effort Auscultation: clear to auscultation bilaterally Cardio: Rate: regular rate Rhythm: regular rhythm Peripheral pulses: P eripheral pulses 2+ throughout GI: Inspection: Yes normal to inspection Palpation (GI): Soft to palpation and nontender Auscultation: normal bowel sounds Back/Spine/Pelvis: Thoracic/Lumbar Spine: thoracic and lumbar spine normal to inspection Skin: General skin exam: no rashes or lesions noted Neuro: General: patient oriented x3, no focal motor deficits and normal sensation to monofilament Cranial nerves: Yes Equal, round and reactive pupils present Cognition (Neuro): normal cognition Speech: No Abnormal speech present Gait exam (Neuro): Normal gait present Motor exam (neuro): 5/5 motor strength present throughout Extrem: General: Yes normal to inspection Medications Administered Discontinued Medications Generic Name Dose Route Start Last Admin Trade Name Freq PRN Reason Stop Dose Admin Clonazepam 1 mg 05/25/24 14:54 05/25/24 15:14 Clonazepam 1 Mg Tablet PO 05/25/24 14:55 1 mg ONCE ONE Administration Medical Decision Making Medical Decision Making [facility] Narrative: 73 yo patient with history of anxiety who takes scheduled 1mg Klonopin BID but is having transportation issues to 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 Patient is clinically stable. I will give him 1mg of Klonopin now. Seems to be more of a social issue with transportation.. No concern for acute ingestion or trauma. Initially denied SI however after I left he told nursing that he feels suicidal with plans to drown himself in the shower. Labs, GOVEA ordered from triage. Will add Care team consult but will likely need CM involvement Differential Diagnosis Differential Diagnoses: The differential diagnosis associated with the presentation includes anxiety, benzo withdrawal Admission/Observation Consideration of admission/observation: Escalation of care including admission/observation considered Consult Healthcare Provider Management of the patient was discussed with: Behavioral Health Provider Lab Data MDM Lab Attestation statement: I reviewed the patient's lab results. 05/25/24 14:43 05/25/24 14:43 Labs: Lab Results 05/25/24 05/25/24 Range/Units 14:43 14:53 WBC 6.5 (4.8-10.8) X10*3/uL RBC 4.04 L (4.60-5.80) X10*6/uL Hgb 12.8 L (14.0-18.0) g/dl Hct 38.4 L (42.0-52.0) % MCV 95.0 (80.0-98.0) fL MCH 31.7 (27.0-33.0) pg MCHC 33.3 (31.0-36.0) g/dl RDW 13.2 (11.0-16.0) % Plt Count 272 (160-400) X10*3/uL MPV 10.5 (9.4-12.4) fL Immature Gran % (Auto) 0.6 H (0.0-0.4) % Neut % (Auto) 80.7 H (45-73) % Lymph % (Auto) 10.8 L (20-40) % Scurry % (Auto) 7.2 (2-11) % Eos % (Auto) 0.2 (0-4) % Baso % (Auto) 0.5 (0-2) % Lymph # (Auto) 0.7 L (1.2-4.9) X10*3/uL Scurry # (Auto) 0.5 (0.1-1.2) X10*3/uL Eos # (Auto) 0.0 (0.0-0.4) X10*3/uL Baso # (Auto) 0.0 (0.0-0.2) X10*3/uL Abs Immat Gran (auto) 0.04 H (0.00-0.03) X10*3/uL Absolute Neuts (auto) 5.3 (2.0-8.3) x10*3/uL Absolute Nucleated RBC 0.000 (0.0-0.012) X10*3/uL Nucleated RBC % (auto) 0.0 (0.0-0.2) /100WBC Sodium 145 (135-145) mmol/L Potassium 4.1 (3.3-5.1) mmol/L Chloride 110 H (96-108) mmol/L Carbon Dioxide 26 (22-29) mmol/L Anion Gap 13 (12-20) BUN 14 (9-16) mg/dL Creatinine 0.95 (0.5-1.4) mg/dL Estim Creat Clear Calc 60.9 Estimated GFR > 60 Random Glucose 146 H (60-115) mg/dL Calcium 9.7 (8.4-10.2) mg/dL Urine Color Yellow Urine Appearance Clear Urine pH 8.0 (5.0-9.0) Ur Specific [place] 1.015 (1.005-1.025) Urine Protein Trace (Neg-Trace) mg/dL Urine Glucose (UA) Negative (Negative) mg/dL Urine Ketones Negative (Negative) mg/dL Urine Blood Negative (Negative) Urine Nitrite Negative (Negative) Ur Leukocyte Esterase Small (1+) H (Negative) Urine Opiates Screen Not Detected (Not Detect) Ur Buprenorphine Scrn Not Detected (Not Detect) ng/mL Ur Oxycodone Screen Not Detected (Not Detect) ng/mL Urine Methadone Screen Not Detected (Not Detect) ng/mL Urine Fentanyl Screen Not Detected (Not Detect) Ur Barbiturates Screen Not Detected (Not Detect) Ur Phencyclidine Scrn Not Detected (Not Detect) Ur Amphetamines Screen Not Detected (Not Detect) U Benzodiazepines Scrn Not Detected (Not Detect) Urine Cocaine Screen Not Detected (Not Detect) U Marijuana (THC) Screen Not Detected (Not Detect) Ethyl Alcohol < 10 mg/dL Independent Historian Clinical information obtained from an independent historian. History obtained from or confirmed by: EMS Discharge Plan Discharge Clinical Impression: Acute anxiety Patient Disposition: Still a Patient Instructions: Anxiety (ED) Additional Instructions: You have a prescription for your 30 day supply of Klonopin at [facility] on [facility] in [place] which was sent by your prescribing provider Prescriptions: No Action duloxetine 60 mg capsule,delayed release(DR/EC) 60 mg PO BID Qty: 60 1RF lamotrigine 100 mg tablet 100 mg PO DAILY Qty: 90 0RF olanzapine [Zyprexa] 7.5 mg tablet 7.5 mg PO BEDTIME 30 Days Qty: 30 3RF clonazepam 1 mg tablet 1 mg PO BID 30 Days Qty: 60 1RF cholecalciferol (vitamin D3) 125 mcg (5,000 unit) capsule 125 mcg PO DAILY Referrals: Physician,None [Primary Care Provider] - 1 week Geovanna Davis APRN [Nurse Practitioner] - 2 weeks Print Language: Cambodian
[2024-05-25 15:04] LABS: Appearance Urine Clear; Color Urine Yellow; Glucose Urine UA Negative (Negative); Leukocyte Esterase Urine Small (1+) (Negative); Nitrite Urine Negative (Negative); Specific Gravity - Urine 1.015 (1.005-1.025); UMIC TRIGGER UACC YES; Urine Blood Negative (Negative); Urine Ketones Negative (Negative); Urine Protein Trace mg/dL (Neg-Trace)
[2024-05-25 15:05] LABS: Anion Gap 13 (12-20); Blood Urea Nitrogen 14 mg/dL (9-16); Calcium 9.7 mg/dL (8.4-10.2); Carbon Dioxide 26 mmol/L (22-29); Chloride 110 mmol/L (96-108); Creatinine Clr Calc Pharmacy 60.9; Estimated Glomerular Filt Rate > 60; Glucose Random 146 mg/dL (60-115); Potassium 4.1 mmol/L (3.3-5.1); Sodium 145 mmol/L (135-145)
[2024-05-25 15:09] LABS: Ethanol < 10 mg/dL
[2024-05-25 15:11] LABS: Amphetamine Screen Urine Not Detected (Not Detect); Barbiturates, Urine Not Detected (Not Detect); Benzodiazepines Screen Urine Not Detected (Not Detect); Buprenorphine Scr Not Detected (Not Detect); Cannabinoid Screen Urine Not Detected (Not Detect); Cocaine Screen Urine Not Detected (Not Detect); Fentanyl, urine Not Detected (Not Detect); Methadone Screen, Urine Not Detected (Not Detect); Opiate Screen Urine Not Detected (Not Detect); Oxycodone Screen Urine Not Detected (Not Detect); Phencyclidine Screen Urine Not Detected (Not Detect)
[2024-05-25 15:14] LABS: Bacteria Urine None Seen (None Seen); RBC Urine 0-2 /HPF (0-2); Squamous Epithelial Cell Urine 0-2 /HPF (0-2); UACC Culture Trigger YES
[2024-05-25] MEDS: clonazePAM 1 MG TABLET PO ×2 (15:14→20:01)
--- NOTE | 2024-05-25 15:46 | PC.NURSE ---
pt initially came to the ed and expressed that he was not suicidal, again stated this to Debbi FASHION PATTERNMAKER, moments after meeting with Debbi, the pt came out and stated that he was now suicidal and that he is triggered from being here and has had thoughts of drowning himself in the shower and has attempted this years ago
[2024-05-25 16:03] VITALS: BP 123/87; PULSE 68; RESP 16; TEMP 36.6; O2SAT 98
--- NOTE | 2024-05-25 17:43 | PHA.MEDREC ---
Pharmacy Consult ? Medication Reconciliation Pharmacy has completed the medication reconciliation. Spoke with patient to confirm. Patient took their medications yesterday besides the clonazepam, which they last had about a week ago (ran out). Patient does not take OTC.
[2024-05-25 18:22] VITALS: BP 141/96; PULSE 63; RESP 16; TEMP 36.5; O2SAT 96
[2024-05-25] MEDS: DULoxetine HCl 60 MG CAPSULE.DR PO (20:01)
--- NOTE | 2024-05-25 23:02 | MHC.CARE ---
Pt evaluated by the CARE team and is a older adult bedsearch. ED provider, POD RN and Pt are aware of disposition. On a section 12A for safety.
--- NOTE | 2024-05-26 05:43 | PC.NURSE ---
Patient slept through the night, meds and meals compliant, no distress observed/reported, dispostion per care team is ection 12 inpatient bed search, VSS, 15 minutes safety check, no behavior and safety concerns, will continue to monitor
[2024-05-26 06:30] VITALS: RESP 16
[2024-05-26 08:38] VITALS: BP 113/70; PULSE 75; RESP 18; TEMP 36.9; O2SAT 98
[2024-05-26] MEDS: lamoTRIgine 100 MG TABLET PO (08:51)
[2024-05-26] MEDS: DULoxetine HCl 60 MG CAPSULE.DR PO ×2 (08:51→20:45)
[2024-05-26] MEDS: clonazePAM 1 MG TABLET PO ×2 (08:51→20:44)
[2024-05-26 17:29] VITALS: BP 112/65; PULSE 72; RESP 14; TEMP 36.5; O2SAT 98
[2024-05-26] MEDS: LORazepam 1 MG TABLET PO (17:39)
[2024-05-26] MEDS: OLANZapine 7.5 MG TABLET PO (20:45)
--- NOTE | 2024-05-26 20:48 | PC.NURSE ---
patient remains calm and cooperative at this time and resting in room. even unlabored respirations.
--- NOTE | 2024-05-27 | ECG_ITS ---
Test Reason : PROLONGED QTC Blood Pressure : / mmHG Vent. Rate : 071 BPM Atrial Rate : 071 BPM P-R Int : 152 ms QRS Dur : 068 ms QT Int : 376 ms P-R-T Axes : 058 042 063 degrees QTc Int : 408 ms Sinus rhythm with marked sinus arrhythmia Otherwise normal ECG When compared with ECG of 27-MAR-2024 16:54, No significant change was found Referred By: Jesus Ocampo Electronically Signed By:WILSON YANEZ
[2024-05-27 00:36] VITALS: BP 127/67; PULSE 78; RESP 16; TEMP 36.7; O2SAT 96
--- NOTE | 2024-05-27 06:53 | PC.NURSE ---
Assumed care of patient at 0645, patient appears to be sleeping, respirations even and unlabored, no apparent distress noted. Continue plan of care for inpatient bedsearch
[2024-05-27] MEDS: DULoxetine HCl 60 MG CAPSULE.DR PO ×2 (08:13→20:45)
[2024-05-27] MEDS: lamoTRIgine 100 MG TABLET PO (08:13)
[2024-05-27] MEDS: clonazePAM 1 MG TABLET PO ×2 (08:13→20:45)
--- NOTE | 2024-05-27 13:38 | MHC.CARE ---
Plan for Pt to go off of the unit from roughly 3pm- 350pm, to receive outpatient TMS treatment approved by ED Clinical Coordinator, Washer Assembler of Behavioral Health and CARE building services coordinator, attending RN aware.
[2024-05-27 18:11] VITALS: BP 118/86; PULSE 72; RESP 14; TEMP 36.4; O2SAT 97
[2024-05-27 18:44] VITALS: BP 143/61; PULSE 78; RESP 18; TEMP 36.5; O2SAT 98
[2024-05-27 18:45] VITALS: BMI 29.1
--- NOTE | 2024-05-27 18:52 | PC.NURSE ---
Lindsey Rausch arrived on the unit at 1830 from the ED accompanied by RN and transportation security screener. Shalom is admitted for suicidal ideations and because they were off of Klonopin x 1 week and were concerned about withdrawal. Affect is flat and demeanor is calm and cooperative. Shalom denied SI/HI/AVH. They were ordered food and oriented to the unit and their room. Skin check performed by this medical writer and Brenda Carty RN. Will continue to monitor for safety and changes in behavior on five minute check sper hospital policy.
[2024-05-27 19:38] LABS: Alanine Aminotransferase 12 U/L (0-40); Albumin Level 4.1 g/dL (3.5-5.0); Alkaline Phosphatase 71 U/L (39-117); Anion Gap 14 (12-20); Aspartate Amino Transferase 19 U/L (5-37); Bilirubin Total 0.2 mg/dL (0.0-1.0); Blood Urea Nitrogen 15 mg/dL (9-16); Calcium 9.2 mg/dL (8.4-10.2); Carbon Dioxide 25 mmol/L (22-29); Chloride 109 mmol/L (96-108); Creatinine Clr Calc Pharmacy 66.6; Estimated Glomerular Filt Rate > 60; Glucose Random 90 mg/dL (60-115); Potassium 4.2 mmol/L (3.3-5.1); Sodium 144 mmol/L (135-145); Total Protein 6.5 g/dL (6.5-8.0)
[2024-05-27 19:51] VITALS: BP 142/82; PULSE 104; TEMP 35.5; O2SAT 96
[2024-05-27 20:17] VITALS: BP 142/82; PULSE 104; RESP 18; TEMP 36; O2SAT 96
[2024-05-27] MEDS: OLANZapine 7.5 MG TABLET PO (20:45)
[2024-05-27] MEDS: traZODone HCL 50 MG TABLET PO ×2 (20:47→23:18)
--- NOTE | 2024-05-27 21:26 | PC.ADMIT ---
Shalom is a 73 year old female to male transgender, he/him pronouns, he self presented to [facility] due to withdrawal symptoms secondary to running out of prescribed Clonazepam one week ago. Upon approach Shalom was lying in bed, when asked how he felt stated Anxious, I've been here before and this setting makes me anxious. He reported endorsing 6/10 anxiety, 2/10 depression, he denied auditory and visual hallucinations, he denied homicidal ideation. When asked if he had any thoughts of wanting to hurt self stated No, not right now I did last week. He reported he had been about a week without taking his medications, stated My car broke down I had no way of getting to the pharmacy, he reported he started to have Shakes, I called Sana Davis and she encouraged me to call 911, she told me I was withdrawing. Shalom reported that running out of his Clonazepam was one of the reasons he was feeling like this But I have had a lot of losses in the last year, he reports two of his cats , one ran away, his therapist of 40 years retired I haven't been able to establish myself with a therapist, he also report his car breaking down and that was the Last straw. 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
[2024-05-27] MEDS: hydrOXYzine HCL 25 MG TABLET PO (23:18)
[2024-05-28 08:44] VITALS: BP 116/68; PULSE 95; RESP 18; TEMP 36.2; O2SAT 95
[2024-05-28 08:48] LABS: Cholesterol 193 mg/dL (<200); HDL Cholesterol 48 mg/dL (>40); LDL Cholesterol Calculated 100 mg/dL (<100); Triglycerides 227 mg/dL (<150)
[2024-05-28] MEDS: lamoTRIgine 100 MG TABLET PO (08:48)
[2024-05-28] MEDS: DULoxetine HCl 60 MG CAPSULE.DR PO (08:48)
[2024-05-28] MEDS: clonazePAM 1 MG TABLET PO (08:48)
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
[2024-05-28] MEDS: hydrOXYzine HCL 25 MG TABLET PO (13:50)
--- NOTE | 2024-05-28 14:46 | PM.PSYDC ---
DS: Providers Provider Date of Service: 05/28/24 Date of admission: 05/27/24 17:44 Date of discharge: 05/28/24 Primary care physician: None Physician Discharging clinician: Lucinda Platt DS: Diagnosis Discharge Diagnosis (1) MDD (major depressive disorder), recurrent episode, moderate: Status: Acute (2) Personality disorder: Status: Acute DS: Medications Discharge Medications Home Medications: Home Medications ?Medication ?Instructions ?Recorded ?Confirmed cholecalciferol (vitamin D3) 125 125 mcg PO DAILY 03/27/24 05/25/24 mcg (5,000 unit) capsule Previous Rx's ?Medication ?Instructions ?Recorded duloxetine 60 mg capsule,delayed 60 mg PO BID #60 caps 04/30/24 release lamotrigine 100 mg tablet 100 mg PO DAILY #90 tabs 04/30/24 olanzapine 7.5 mg tablet (Zyprexa) 7.5 mg PO BEDTIME 30 days #30 tabs 04/30/24 clonazepam 1 mg tablet 1 mg PO BID 30 days #60 tabs 05/27/24 Mental Status Exam Mental Status Exam Narrative: Appearance: casually groomed, fair hygiene in NAD Behavior:cooperative. psychomotor:no agitation or retardation noted Speech:clear, normal rate/rhythm/volume, spontaneous Thought process:linear Thought content:no signs of psychosis, future oriented looking forward to continue TMS, although will miss groups and socialization on the unit. Mood: okay Affect: constricted SI:denies, but reports chronic SI conditional to feeling lonely HI:none VH/AH:none Delusions:none Insight/judgment:fair x 2. Memory/cog: alert, oriented x3. Data Data Completed and Pending Completed studies during hospitalization [Text1]: 05/25/24 05/25/24 05/27/24 14:43 14:53 19:19 WBC 6.5 RBC 4.04 L Hgb 12.8 L Hct 38.4 L MCV 95.0 MCH 31.7 MCHC 33.3 RDW 13.2 Plt Count 272 MPV 10.5 Immature Gran % (Auto) 0.6 H Neut % (Auto) 80.7 H Lymph % (Auto) 10.8 L Alexander % (Auto) 7.2 Eos % (Auto) 0.2 Baso % (Auto) 0.5 Lymph # (Auto) 0.7 L Alexander # (Auto) 0.5 Eos # (Auto) 0.0 Baso # (Auto) 0.0 Abs Immat Gran (auto) 0.04 H Absolute Neuts (auto) 5.3 Absolute Nucleated RBC 0.000 Nucleated RBC % (auto) 0.0 Sodium 145 144 Potassium 4.1 4.2 Chloride 110 H 109 H Carbon Dioxide 26 25 Anion Gap 13 14 BUN 14 15 Creatinine 0.95 0.88 Estim Creat Clear Calc 60.9 66.6 Estimated GFR > 60 > 60 Random Glucose 146 H 90 Calcium 9.7 9.2 Total Bilirubin 0.2 AST 19 ALT 12 Alkaline Phosphatase 71 Total Protein 6.5 Albumin 4.1 Triglycerides Cholesterol LDL Cholesterol, Calc HDL Cholesterol Urine Color Yellow Urine Appearance Clear Urine pH 8.0 Ur Specific [place] 1.015 Urine Protein Trace Urine Glucose (UA) Negative Urine Ketones Negative Urine Blood Negative Urine Nitrite Negative Ur Leukocyte Esterase Small (1+) H Urine RBC 0-2 Urine WBC 11-20 H Ur Squamous Epith Cells 0-2 Urine Bacteria None Seen Hyaline Casts 3-5 Urine Opiates Screen Not Detected Ur Buprenorphine Scrn Not Detected Ur Oxycodone Screen Not Detected Urine Methadone Screen Not Detected Urine Fentanyl Screen Not Detected Ur Barbiturates Screen Not Detected Ur Phencyclidine Scrn Not Detected Ur Amphetamines Screen Not Detected U Benzodiazepines Scrn Not Detected Urine Cocaine Screen Not Detected U Marijuana (THC) Screen Not Detected Ethyl Alcohol < 10 05/28/24 08:12 WBC RBC Hgb Hct MCV MCH MCHC RDW Plt Count MPV Immature Gran % (Auto) Neut % (Auto) Lymph % (Auto) Alexander % (Auto) Eos % (Auto) Baso % (Auto) Lymph # (Auto) Alexander # (Auto) Eos # (Auto) Baso # (Auto) Abs Immat Gran (auto) Absolute Neuts (auto) Absolute Nucleated RBC Nucleated RBC % (auto) Sodium Potassium Chloride Carbon Dioxide Anion Gap BUN Creatinine Estim Creat Clear Calc Estimated GFR Random Glucose Calcium Total Bilirubin AST ALT Alkaline Phosphatase Total Protein Albumin Triglycerides 227 H Cholesterol 193 LDL Cholesterol, Calc 100 H HDL Cholesterol 48 Urine Color Urine Appearance Urine pH Ur Specific [place] Urine Protein Urine Glucose (UA) Urine Ketones Urine Blood Urine Nitrite Ur Leukocyte Esterase Urine RBC Urine WBC Ur Squamous Epith Cells Urine Bacteria Hyaline Casts Urine Opiates Screen Ur Buprenorphine Scrn Ur Oxycodone Screen Urine Methadone Screen Urine Fentanyl Screen Ur Barbiturates Screen Ur Phencyclidine Scrn Ur Amphetamines Screen U Benzodiazepines Scrn Urine Cocaine Screen U Marijuana (THC) Screen Ethyl Alcohol 05/25/24 16:00 Urine clean catch - Clean Catch Midstream Urine Culture - Final DS: Summary Hospital Course Hospital Course: Narrative: Mr. Smith is a 73 year-old female to male transgender with a hx of trauma, depression, and PD who self presented to [facility] ED due to concerns of withdrawing from clonazepam as he had been without a prescription for about one week. No noted s/s of benzo withdrawal and pt was restarted on medications. He had denied SI/HI. He was admitted initially with plan to monitor for withdrawal symptoms but again- none noted and he is back on the medications. 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 He has followed up with TMS treatment daily in addition to weekly psychotherapy session and psychiatric appointment. He is seen socializing going to assigned groups. He appears in much improved hygiene and mood than before. When asked about need for inpt admission, pt reports he wants to stay here, which is usually his preference even when not clinicially indicated. He extends his arms and says I'm still shaky from the withdrawal ... again no signs of benzo withdrawal. NO VH/AH. No delusional content noted or reported. pt does tend to regress while inpt and is actually doing quite well connecting with OP providers and self regulating. Past Psychiatric History: Inpatient: [facility] 06/21-07/06/21; [facility] 07/07-08/11/21, 2018 M5 OP: Geovanna Davis APRN; Blaire Vo ([phone]) therapist. Suicide attempts: pt reports tried to drown self back (filled tub) in 2019 but called crisis Past trials: effexor, Lexapro, rexulti, Medical Evaluation Reviewed: Yes HOSPITAL COURSE On the unit, pt was admitted on a CV and placed on 15 minutes checks for safety. He does feel comfortable on the unit and seemed to be appealing to clinical team let him stay longer despite no concern in terms of benzo withdrawal at this time. He has been doing very well, connecting with OP providers and going weekly to TMS. He would greatly benefit from day program as he is about to complete TMS as most of his self regulation has to do with interpersonal dynamics and not only medication management. He was encouraged to continue outpatient treatment as it is the most effective for him as inpt admission tend to cause regression and dependency tendencies- in the way of helplessness, increase inability to make decisions for himself. Status at Discharge Cognitive/behavioral status at discharge: Pt with brighter, non labile affect. chronic intermitten SI when feeling lonely. None when he first came to the ED, but voicing some as we discussed discharging back home and continuing OP tx. Functional status at discharge: independent ambulation Overall status at discharge: patient is back to baseline Time Spent with Patient Time attestation: Total time managing care of this patient today __35__ minutes. Time spent: Greater than 30 minutes Discharge Plan Discharge Anticipated Discharge Date/Time: 05/28/24 14:44 Patient Disposition: Home, Self-Care Discharge Diagnosis: MDD, PD Referrals: Physician,Linda [Primary Care Provider] - 1 week Geovanna Davis APRN [Nurse Practitioner] - 2 weeks Discharge Medications: Continued duloxetine 60 mg capsule,delayed release(DR/EC) 60 mg PO BID Qty: 60 1RF lamotrigine 100 mg tablet 100 mg PO DAILY Qty: 90 0RF olanzapine [Zyprexa] 7.5 mg tablet 7.5 mg PO BEDTIME 30 Days Qty: 30 3RF clonazepam 1 mg tablet 1 mg PO BID 30 Days Qty: 60 1RF cholecalciferol (vitamin D3) 125 mcg (5,000 unit) capsule 125 mcg PO DAILY Discharge Orders: Discharge Order (Routine); Ordered 05/28/24 Ordered By: Lucinda Platt Diet: Regular diet Activity on Discharge: As tolerated Stand Alone Forms: Patient Portal Discharge page, Community Support Print Language: Yoruba Activity Restrictions/Additional Instructions: You have a prescription for your 30 day supply of Klonopin at [facility] [place] which was sent by your prescribing provider Care Plan Goals: maintain mood chronic intermittent SI, no self harm Health Concerns: follow up with PCP for routine care Plan of Treatment: 1. take medications as prescribed 2. go to ed or call 911 in event of emergency Assessment: Pt with brighter affect. Chronic SI, less so recently. TMS daily. No VH/AH. No delusions. No self harm behaviors. Patient Instructions: Anxiety (ED)
== END 2024-05-28 15:02 | disposition home or self-care (01) | DRG 885 ==
LOC: HO.ED 05-27 11:22 → HO.PGERI 05-27 18:02
PROVIDERS: Emergency Medicine; Admitting Provider Psychiatry & Neurology Psychiatry; Emergency Provider Emergency Medicine Emergency Medical Services; Visit Provider Psychiatry & Neurology Psychiatry
DX: F33.1 Major depressive disorder, recurrent, moderate (principal); R45.851 Suicidal ideations; F64.0 Transsexualism; F60.9 Personality disorder, unspecified; Z79.899 Other long term (current) drug therapy
CPT/HCPCS: 36415; 80048; 80053; 80061; 80307; 81001; 81003; 85025; 87086; 93005; 99285; S9485

== ENCOUNTER → 2024-05-27 10:19 | Outpatient (BNV) | payer MEDICARE, SELFPAY | PROVIDERS: Admitting Provider Psychiatry & Neurology Psychiatry; Emergency Provider Emergency Medicine Emergency Medical Services; Visit Provider Internal Medicine | DX: I49.8 Other specified cardiac arrhythmias (principal); R41.82 Altered mental status, unspecified | CPT/HCPCS: 93010 ==

== ENCOUNTER → 2024-05-27 17:44 | Outpatient (BNV) | payer MEDICARE, SELFPAY | PROVIDERS: Admitting Provider Psychiatry & Neurology Psychiatry; Emergency Provider Emergency Medicine Emergency Medical Services; Visit Provider Social Worker | DX: F60.3 Borderline personality disorder (principal); F33.1 Major depressive disorder, recurrent, moderate | CPT/HCPCS: 90792; 99499 ==

== ENCOUNTER 2024-06-03 15:00 | Outpatient (RCR) | payer MEDICARE, SELFPAY ==
--- NOTE | 2024-04-04 10:01 | P.PNPS_ITS ---
TMS Daily Progress Note Daily TMS Progress Note Date of Service: 04/03/24 Week #: 1 Treatment #(06-20): 1 PHQ-9 Pre-Treatment (06-17): 16 PHQ-9 Most Recent (06-17): 16 Reviewed: TMS Mapping/Re-mapping completed Verification: I have reviewed the TMS Watershed Tender Note and agree with the contents. The patient remains a candidate to continue TMS treatment per protocol. Assessment and Plan (1) Generalized anxiety disorder with panic attacks: Status: Acute (2) Depression, major, severe recurrence: Status: Acute Plan in itial mapping completed required high MT consider if needed remap with decrease klonapin lamictal
--- NOTE | 2024-04-04 10:03 | HO.TMSDAILY2 ---
TMS Daily Progress Note Daily TMS Progress Note Date of Service: 04/04/24 Week #: 1 Treatment #(06-20): 2 PHQ-9 Pre-Treatment (06-17): 16 PHQ-9 Most Recent (06-17): 16 Reviewed: TMS Tech Note Reviewed Verification: I have reviewed the TMS Management Technician Note and agree with the contents. The patient remains a candidate to continue TMS treatment per protocol. Assessment and Plan (1) Depression, major, severe recurrence: Status: Acute (2) Generalized anxiety disorder with panic attacks: Status: Acute Plan Patient seen needed help in adjustment of treatment magnet patient did have some pain perhaps stimulating facial nerve may need re mapping discussed with referring psychiatrist perhaps lowering Lamictal holding a.m. clonazepam and holding off on treatment for a period of time let those changes take effect and and then remap . The other option would be to try a re mapping with cap. Patient's MT is at the higher and which unfortunately can be normal as people get older
--- NOTE | 2024-04-11 16:03 | P.PNPS_ITS ---
TMS Daily Progress Note Daily TMS Progress Note Date of Service: 04/08/24 Week #: 1 Treatment #(30): 3 PHQ-9 Pre-Treatment (-): 16 PHQ-9 Most Recent (06-17): 15 MILKA-7 Pre-Treatment (0-21): 15 MILKA-7 Most Recent (0-): 17 Reviewed: TMS Tech Note Reviewed Verification: I have reviewed the TMS Carbonating Stone Cleaner Note and agree with the contents. The patient remains a candidate to continue TMS treatment per protocol.
--- NOTE | 2024-04-11 16:06 | P.PNPS_ITS ---
TMS Daily Progress Note Daily TMS Progress Note Date of Service: 04/09/24 Week #: 1 Treatment #(30): 4 PHQ-9 Pre-Treatment (-): 16 PHQ-9 Most Recent (06-17): 15 MILKA-7 Pre-Treatment (0-21): 15 MILKA-7 Most Recent (0-21): 17 Reviewed: TMS Tech Note Reviewed Verification: I have reviewed the TMS Children'S Literature Professor Note and agree with the contents. The patient remains a candidate to continue TMS treatment per protocol.
--- NOTE | 2024-04-11 16:08 | HO.TMSDAILY2 ---
TMS Daily Progress Note Daily TMS Progress Note Date of Service: 04/10/24 Week #: 1 Treatment #(30): 5 PHQ-9 Pre-Treatment (-): 16 PHQ-9 Most Recent (06-17): 15 MILKA-7 Pre-Treatment (0-): 15 MILKA-7 Most Recent (0-): 17 Reviewed: TMS Tech Note Reviewed Verification: I have reviewed the TMS Manager Performance Improvement Note and agree with the contents. The patient remains a candidate to continue TMS treatment per protocol.
--- NOTE | 2024-04-11 16:09 | HO.TMSDAILY2 ---
TMS Daily Progress Note Daily TMS Progress Note Date of Service: 04/11/24 Week #: 2 Treatment #(-30): 6 PHQ-9 Pre-Treatment (-): 16 PHQ-9 Most Recent (06-17): 15 MILKA-7 Pre-Treatment (0-): 15 MILKA-7 Most Recent (0-): 17 Reviewed: TMS Tech Note Reviewed Verification: I have reviewed the TMS Lower School Music Teacher Note and agree with the contents. The patient remains a candidate to continue TMS treatment per protocol.
--- NOTE | 2024-04-15 22:51 | HO.TMSDAILY2 ---
TMS Daily Progress Note Daily TMS Progress Note Date of Service: 04/15/24 Week #: 2 Treatment #(-30): 7 PHQ-9 Pre-Treatment (-): 16 PHQ-9 Most Recent (06-17): 15 MILKA-7 Pre-Treatment (0-21): 15 MILKA-7 Most Recent (0-21): 17 Reviewed: TMS Tech Note Reviewed Verification: I have reviewed the TMS Channel Sales Manager Note and agree with the contents. The patient remains a candidate to continue TMS treatment per protocol. Assessment and Plan (1) Depression, major, severe recurrence: Status: Acute Plan cont plan of care gradual inc mt percent may need to remap
--- NOTE | 2024-04-17 21:00 | HO.TMSDAILY2 ---
TMS Daily Progress Note Daily TMS Progress Note Date of Service: 04/16/24 Week #: 2 Treatment #(-30): 8 PHQ-9 Pre-Treatment (-): 16 PHQ-9 Most Recent (06-17): 15 MILKA-7 Pre-Treatment (0-21): 15 MILKA-7 Most Recent (0-21): 17 Reviewed: TMS Tech Note Reviewed Verification: I have reviewed the TMS Tool And Die Supervisor Note and agree with the contents. The patient remains a candidate to continue TMS treatment per protocol. Assessment and Plan (1) Depression, major, severe recurrence: Status: Acute Plan cont plan of care gradual inc mt percent some inc range affect
--- NOTE | 2024-04-17 21:02 | HO.TMSDAILY2 ---
TMS Daily Progress Note Daily TMS Progress Note Date of Service: 04/17/24 Week #: 2 Treatment #(-30): 9 PHQ-9 Pre-Treatment (-): 16 PHQ-9 Most Recent (06-17): 10 MILKA-7 Pre-Treatment (0-21): 15 MILKA-7 Most Recent (0-21): 17 Reviewed: TMS Tech Note Reviewed Verification: I have reviewed the TMS Restaurant Maintenance Technician Note and agree with the contents. The patient remains a candidate to continue TMS treatment per protocol. Assessment and Plan (1) Depression, major, severe recurrence: Status: Acute Plan anxiety regarding transportation
--- NOTE | 2024-04-25 17:56 | HO.TMSDAILY2 ---
TMS Daily Progress Note Daily TMS Progress Note Date of Service: 04/22/24 Week #: 2 Treatment #(06-20): 10 PHQ-9 Pre-Treatment (-): 16 PHQ-9 Most Recent (06-17): 11 MILKA-7 Pre-Treatment (0-21): 15 MILKA-7 Most Recent (0-): 17 Reviewed: TMS Tech Note Reviewed Verification: I have reviewed the TMS Aviation Safety Technician Note and agree with the contents. The patient remains a candidate to continue TMS treatment per protocol. Assessment and Plan (1) Depression, major, severe recurrence: Status: Acute (2) Generalized anxiety disorder with panic attacks: Status: Acute Plan Improved mood but remains with significant anxiety tolerating treatment
--- NOTE | 2024-04-25 18:00 | HO.TMSDAILY2 ---
TMS Daily Progress Note Daily TMS Progress Note Date of Service: 04/23/24 Week #: 3 Treatment #(-30): 11 PHQ-9 Pre-Treatment (-): 16 PHQ-9 Most Recent (06-17): 11 MILKA-7 Pre-Treatment (0-21): 15 MILKA-7 Most Recent (0-21): 17 Reviewed: TMS Tech Note Reviewed Verification: I have reviewed the TMS Washing Machine Loader Note and agree with the contents. The patient remains a candidate to continue TMS treatment per protocol. Assessment and Plan (1) Depression, major, severe recurrence: Status: Acute (2) Generalized anxiety disorder with panic attacks: Status: Acute Plan Patient tolerating treatment despite high MT significant anxiety related to transportation
--- NOTE | 2024-04-25 18:01 | HO.TMSDAILY2 ---
TMS Daily Progress Note Daily TMS Progress Note Date of Service: 04/25/24 Week #: 3 Treatment #(06-20): 13 PHQ-9 Pre-Treatment (-): 16 PHQ-9 Most Recent (06-17): 11 MILKA-7 Pre-Treatment (0-21): 15 MILKA-7 Most Recent (0-21): 7 Reviewed: TMS Tech Note Reviewed Verification: I have reviewed the TMS Brownfield Redevelopment Site Manager Note and agree with the contents. The patient remains a candidate to continue TMS treatment per protocol. Assessment and Plan (1) Depression, major, severe recurrence: Status: Acute (2) Generalized anxiety disorder with panic attacks: Status: Acute Plan Flat anxious tolerating treatment no significant side effects noted
--- NOTE | 2024-04-25 18:04 | P.PNPS_ITS ---
TMS Daily Progress Note Daily TMS Progress Note Date of Service: 04/24/24 Week #: 3 Treatment #(-30): 12 PHQ-9 Pre-Treatment (-): 16 PHQ-9 Most Recent (06-17): 11 MILKA-7 Pre-Treatment (0-21): 15 MILKA-7 Most Recent (0-21): 7 Reviewed: TMS Tech Note Reviewed Verification: I have reviewed the TMS Trader Fixed Income Note and agree with the contents. The patient remains a candidate to continue TMS treatment per protocol. Assessment and Plan (1) Generalized anxiety disorder with panic attacks: Status: Acute (2) Depression, major, severe recurrence: Status: Acute Plan Consider trying to re map given elevated MT continues with significant anxiety
--- NOTE | 2024-05-02 22:02 | P.PNPS_ITS ---
TMS Daily Progress Note Daily TMS Progress Note Date of Service: 04/29/24 Week #: 3 Treatment #(06-20): 14 PHQ-9 Pre-Treatment (-): 16 PHQ-9 Most Recent (06-17): 11 MILKA-7 Pre-Treatment (0-21): 15 MILKA-7 Most Recent (0-21): 7 Reviewed: TMS Tech Note Reviewed Verification: I have reviewed the TMS Boot Repairer Note and agree with the contents. The patient remains a candidate to continue TMS treatment per protocol. Assessment and Plan (1) Depression, major, severe recurrence: Status: Acute Plan elevated MT continues with significant anxiety will try l/r tx for better anxiety management consideration
--- NOTE | 2024-05-02 22:10 | P.PNPS_ITS ---
TMS Daily Progress Note Daily TMS Progress Note Date of Service: 05/01/24 Week #: 3 Treatment #(-30): 15 PHQ-9 Pre-Treatment (-): 16 PHQ-9 Most Recent (06-17): 11 MILKA-7 Pre-Treatment (0-21): 15 MILKA-7 Most Recent (0-21): 7 Reviewed: TMS Tech Note Reviewed Verification: I have reviewed the TMS Senior Software Engineering Manager Note and agree with the contents. The patient remains a candidate to continue TMS treatment per protocol. Assessment and Plan (1) Depression, major, severe recurrence: Status: Acute Plan elevated MT continues with significant anxiety l/r tx for better anxiety management consideration pt gives informed consent understands inc time
--- NOTE | 2024-05-02 22:20 | HO.TMSDAILY2 ---
TMS Daily Progress Note Daily TMS Progress Note Date of Service: 05/02/24 Week #: 4 Treatment #(-30): 16 PHQ-9 Pre-Treatment (-): 16 PHQ-9 Most Recent (06-17): 10 MILKA-7 Pre-Treatment (0-21): 15 MILKA-7 Most Recent (0-21): 7 Reviewed: TMS Tech Note Reviewed Verification: I have reviewed the TMS Automatic Centrifugal Station Operator Note and agree with the contents. The patient remains a candidate to continue TMS treatment per protocol. Assessment and Plan (1) Depression, major, severe recurrence: Status: Acute Plan cont tx plan monitor response
--- NOTE | 2024-05-27 10:00 | P.PNPS_ITS ---
TMS Daily Progress Note Daily TMS Progress Note Date of Service: 05/06/24 Week #: 4 Treatment #(06-20): 17 PHQ-9 Pre-Treatment (-): 16 PHQ-9 Most Recent (06-17): 11 MILKA-7 Pre-Treatment (0-21): 15 MILKA-7 Most Recent (0-21): 9 Reviewed: TMS Tech Note Reviewed Verification: I have reviewed the TMS Life Enrichment Specialist Note and agree with the contents. The patient remains a candidate to continue TMS treatment per protocol. Assessment and Plan (1) Depression, major, severe recurrence: Status: Acute (2) Generalized anxiety disorder with panic attacks: Status: Acute Plan No adverse effects noted patient feeling less depressed has ongoing anxiety symptoms . We did discuss adding right-sided treatment at low-frequency per literature search for additional help with anxiety symptoms. Patient continues tolerate treatment
--- NOTE | 2024-05-27 17:51 | P.PNPS_ITS ---
TMS Daily Progress Note Daily TMS Progress Note Date of Service: 05/07/24 Week #: 4 Treatment #(06-20): 18 PHQ-9 Pre-Treatment (-): 16 PHQ-9 Most Recent (06-17): 11 MILKA-7 Pre-Treatment (0-21): 15 MILKA-7 Most Recent (0-21): 9 Q-LES-Q-SF Most Recent: 41 Reviewed: TMS Tech Note Reviewed Verification: I have reviewed the TMS Construction Trades Contractor Note and agree with the contents. The patient remains a candidate to continue TMS treatment per protocol. Assessment and Plan (1) Depression, major, severe recurrence: Status: Acute (2) Generalized anxiety disorder with panic attacks: Status: Acute Plan Patient does feel improvement depressive symptoms. Tends to be chronically anxious some acute anxiety regarding his car which may need a new engine.
--- NOTE | 2024-05-27 17:53 | HO.TMSDAILY2 ---
TMS Daily Progress Note Daily TMS Progress Note Date of Service: 05/08/24 Week #: 4 Treatment #(06-20): 19 PHQ-9 Pre-Treatment (-): 16 PHQ-9 Most Recent (06-17): 11 MILKA-7 Pre-Treatment (0-21): 15 MILKA-7 Most Recent (0-21): 9 Q-LES-Q-SF Most Recent: 41 Reviewed: TMS Tech Note Reviewed Verification: I have reviewed the TMS Blue Prints Trimmer Note and agree with the contents. The patient remains a candidate to continue TMS treatment per protocol. Assessment and Plan (1) Generalized anxiety disorder with panic attacks: Status: Acute (2) Depression, major, severe recurrence: Status: Acute Plan Patient reporting improvement in anxiety and depressive symptoms. Seems brighter more able to weigh things Less catastrophic thinking
--- NOTE | 2024-05-27 17:57 | P.PNPS_ITS ---
TMS Daily Progress Note Daily TMS Progress Note Date of Service: 05/09/24 Week #: 4 Treatment #(06-20): 20 PHQ-9 Pre-Treatment (-): 16 PHQ-9 Most Recent (06-17): 11 MILKA-7 Pre-Treatment (0-21): 15 MILKA-7 Most Recent (0-21): 9 Q-LES-Q-SF Most Recent: 41 Reviewed: TMS Tech Note Reviewed Verification: I have reviewed the TMS Technical Service Representative Note and agree with the contents. The patient remains a candidate to continue TMS treatment per protocol. Assessment and Plan (1) Generalized anxiety disorder with panic attacks: Status: Acute (2) Depression, major, severe recurrence: Status: Acute Plan Patient seems improved with [id number] treatment to some degree tolerating treatment well no adverse effects noted
--- NOTE | 2024-05-27 17:59 | P.PNPS_ITS ---
TMS Daily Progress Note Daily TMS Progress Note Date of Service: 05/14/24 Week #: 5 Treatment #(-): 21 PHQ-9 Pre-Treatment (-): 16 PHQ-9 Most Recent (06-17): 6 MILKA-7 Pre-Treatment (0-21): 15 MILKA-7 Most Recent (0-21): 15 Q-LES-Q-SF Most Recent: 41 Reviewed: TMS Tech Note Reviewed Verification: I have reviewed the TMS Case Management Coordinator Note and agree with the contents. The patient remains a candidate to continue TMS treatment per protocol. Assessment and Plan (1) Depression, major, severe recurrence: Status: Acute (2) Generalized anxiety disorder with panic attacks: Status: Acute Plan Patient bright with full affect some increased anxiety that he relates to time of year not noted during treatment
--- NOTE | 2024-05-27 18:01 | HO.TMSDAILY2 ---
TMS Daily Progress Note Daily TMS Progress Note Date of Service: 05/16/24 Week #: 5 Treatment #(-): 22 PHQ-9 Pre-Treatment (-): 16 PHQ-9 Most Recent (06-17): 6 MILKA-7 Pre-Treatment (0-21): 15 MILKA-7 Most Recent (0-21): 15 Q-LES-Q-SF Most Recent: 41 Reviewed: TMS Tech Note Reviewed Verification: I have reviewed the TMS Auto Top Mechanic Note and agree with the contents. The patient remains a candidate to continue TMS treatment per protocol. Assessment and Plan (1) Generalized anxiety disorder with panic attacks: Status: Acute (2) Depression, major, severe recurrence: Status: Acute Plan No major changes noted patient continues to tolerate treatment. They are under some financial difficulties
--- NOTE | 2024-05-27 18:02 | HO.TMSDAILY2 ---
TMS Daily Progress Note Daily TMS Progress Note Date of Service: 05/20/24 Week #: 5 Treatment #(06-20): 23 PHQ-9 Pre-Treatment (-): 16 PHQ-9 Most Recent (06-17): 5 MILKA-7 Pre-Treatment (0-21): 15 MILKA-7 Most Recent (0-21): 8 Q-LES-Q-SF Most Recent: 41 Reviewed: TMS Tech Note Reviewed Verification: I have reviewed the TMS Hospital Corpsman Note and agree with the contents. The patient remains a candidate to continue TMS treatment per protocol. Assessment and Plan (1) Depression, major, severe recurrence: Status: Acute (2) Generalized anxiety disorder with panic attacks: Status: Acute Plan Patient feeling better less depressed and less anxious
--- NOTE | 2024-05-27 18:05 | HO.TMSDAILY2 ---
TMS Daily Progress Note Daily TMS Progress Note Date of Service: 05/21/24 Week #: 5 Treatment #(-): 24 PHQ-9 Pre-Treatment (-): 16 PHQ-9 Most Recent (06-17): 5 MILKA-7 Pre-Treatment (0-21): 15 MILKA-7 Most Recent (0-21): 8 Q-LES-Q-SF Most Recent: 41 Reviewed: TMS Tech Note Reviewed Verification: I have reviewed the TMS Junior Sales Assistant Note and agree with the contents. The patient remains a candidate to continue TMS treatment per protocol. Assessment and Plan (1) Depression, major, severe recurrence: Status: Acute Plan Patient states feeling less depressed and less anxious continues to tolerate treatment
--- NOTE | 2024-05-27 18:06 | HO.TMSDAILY2 ---
TMS Daily Progress Note Daily TMS Progress Note Date of Service: 05/23/24 Week #: 5 Treatment #(-): 25 PHQ-9 Pre-Treatment (-): 16 PHQ-9 Most Recent (06-17): 5 MILKA-7 Pre-Treatment (0-21): 15 MILKA-7 Most Recent (0-21): 8 Q-LES-Q-SF Most Recent: 41 Reviewed: TMS Tech Note Reviewed Verification: I have reviewed the TMS Diversified Crops Farmer Note and agree with the contents. The patient remains a candidate to continue TMS treatment per protocol. Assessment and Plan (1) Depression, major, severe recurrence: Status: Acute Plan Patient generally reports improvement in depression times ruminations continue regarding some concrete factors in his life in needing to repair his car. Otherwise patient has shown gradual improvement no reported side effects with treatment
--- NOTE | 2024-05-27 18:08 | P.PNPS_ITS ---
TMS Daily Progress Note Daily TMS Progress Note Date of Service: 05/27/24 Week #: 6 Treatment #(-): 26 PHQ-9 Pre-Treatment (-): 16 PHQ-9 Most Recent (06-17): 5 MILKA-7 Pre-Treatment (0-21): 15 MILKA-7 Most Recent (0-21): 8 Q-LES-Q-SF Most Recent: 41 Reviewed: TMS Tech Note Reviewed Verification: I have reviewed the TMS Internet Systems Administrator Note and agree with the contents. The patient remains a candidate to continue TMS treatment per protocol. Assessment and Plan (1) Depression, major, severe recurrence: Status: Acute Plan Patient appears to have accidentally gone into clonazepam withdrawal became extremely anxious at home and was eventually brought to the emergency room thoughts of suicide. Normally been on clonazepam 1 mg twice a day. Patient appears more stable back on clonazepam. He was treated on leave from the [facility] en[facility] room to try and continue treatment which was seeming to be effective with no adverse consequences. When the patient was seen they were calm and cooperative stated they were feeling better denied acute SI at this time. Case was discussed with treatment team and with his treating psychiatric provider Sana Lozano nurse practitioner The patient seemed reassured by having continuity.
--- NOTE | 2024-05-31 16:07 | P.PNPS_ITS ---
TMS Daily Progress Note Daily TMS Progress Note Date of Service: 05/30/24 Week #: 6 Treatment #(06-20): 29 PHQ-9 Pre-Treatment (-): 16 PHQ-9 Most Recent (06-17): 15 MILKA-7 Pre-Treatment (0-21): 15 MILKA-7 Most Recent (0-21): 8 Q-LES-Q-SF Most Recent: 41 Reviewed: TMS Tech Note Reviewed Verification: I have reviewed the TMS Footwear Machinery Instructor Note and agree with the contents. The patient remains a candidate to continue TMS treatment per protocol. Assessment and Plan (1) Depression, major, severe recurrence: Status: Acute Plan Patient is clearly had relapse after benzodiazepine withdrawal and requiring brief hospitalization may benefit from extended course. Oysg-on-fhbxo treatment continues. His quality of life scale seems improved is quite ruminative regarding financial issues in issues related to his car he does feel signif icantly less depressed than it the beginning of treatment he relates to the treating pest control service technician. Consider extended course if possible
--- NOTE | 2024-05-31 16:07 | HO.TMSDAILY2 ---
TMS Daily Progress Note Daily TMS Progress Note Date of Service: 05/28/24 Week #: 6 Treatment #(-): 27 PHQ-9 Pre-Treatment (-): 16 PHQ-9 Most Recent (06-17): 5 MILKA-7 Pre-Treatment (0-21): 15 MILKA-7 Most Recent (0-21): 8 Q-LES-Q-SF Most Recent: 41 Reviewed: TMS Tech Note Reviewed Verification: I have reviewed the TMS Global Human Resources Director Note and agree with the contents. The patient remains a candidate to continue TMS treatment per protocol. Assessment and Plan (1) Depression, major, severe recurrence: Status: Acute (2) Generalized anxiety disorder with panic attacks: Status: Acute Plan The patient was briefly admitted inpatient after running out of clonazepam and wanting to withdrawal. Intrusive ruminations and anxiety. Needs a lot of reassurance. Explanations given patient given a ride home. Denied any active self-harming thoughts. His severe anxiety symptoms helplessness and recent SI seem to be as a result of withdrawal. Has been doing quite well in treatment. Monitor patient's continued response. Patient had been educated regarding withdrawal symptoms with benzodiazepines
--- NOTE | 2024-05-31 16:07 | HO.TMSDAILY2 ---
TMS Daily Progress Note Daily TMS Progress Note Date of Service: 05/29/24 Week #: 6 Treatment #(-): 28 PHQ-9 Pre-Treatment (-): 16 PHQ-9 Most Recent (06-17): 15 MILKA-7 Pre-Treatment (0-21): 15 MILKA-7 Most Recent (0-21): 8 Q-LES-Q-SF Most Recent: 41 Reviewed: TMS Tech Note Reviewed Verification: I have reviewed the TMS Logging Assistant Note and agree with the contents. The patient remains a candidate to continue TMS treatment per protocol. Assessment and Plan (1) Depression, major, severe recurrence: Status: Acute (2) Generalized anxiety disorder with panic attacks: Status: Acute Plan Patient ruminating about his car a lot of reassurance tolerated treatment seem reassured by the end of treatment denied any active self-harming thoughts. Continue to monitor response to treatment and return home
--- NOTE | 2024-06-03 17:32 | P.PNPS_ITS ---
TMS Daily Progress Note Daily TMS Progress Note Date of Service: 06/03/24 Week #: 8 Treatment #(-): 30 PHQ-9 Pre-Treatment (-): 16 PHQ-9 Most Recent (06-17): 6 MILKA-7 Pre-Treatment (0-21): 15 MILKA-7 Most Recent (0-21): 10 Q-LES-Q-SF Most Recent: Q: 28 41 MT: 1.48 Reviewed: TMS Tech Note Reviewed Verification: I have reviewed the TMS Registered Radiation Therapist Note and agree with the contents. The patient remains a candidate to continue TMS treatment per protocol. Assessment and Plan (1) MDD (major depressive disorder), recurrent episode, moderate: Status: Acute (2) Generalized anxiety disorder with panic attacks: Status: Acute Plan continue TMS tx plan
== END 2024-06-05 15:00 ==
LOC: HO.PTMS 15:00
PROVIDERS: Visit Provider Psychiatry & Neurology Psychiatry
DX: F33.2 Major depressive disorder, recurrent severe without psychotic features (principal); F41.1 Generalized anxiety disorder; F41.0 Panic disorder [episodic paroxysmal anxiety]
CPT/HCPCS: 90867; 90868

== ENCOUNTER 2024-09-30 10:05 | Inpatient (IN) | payer MEDICARE, SELFPAY ==
[2024-09-30 10:18] VITALS: BP 111/58; BP 112/62; PULSE 98; RESP 16; TEMP 36.3; O2SAT 98; BMI 22.5
[2024-09-30 10:32] VITALS: BP 111/58; PULSE 98; RESP 16; TEMP 36.3; O2SAT 98
--- NOTE | 2024-09-30 10:40 | PC.NURSE ---
Patient A&O x 4. BIBA from home, live alone. SI with plan to drown self by shoving shower head down throat Patient denies attempting a plan. patient verbalizes previous attempts by drowning himself in tub . no HI, denies auditory/visual hallucinations. Patient has history of major depressive disorder. Patient presents to ED, exchange specialist complete, belongings in [facility] shelf 1. Patient tachypneic and tachycardiac but all other VSS. Patient appears anxious, attempted breathing techniques with somewhat effect. Patient denies physical pain but states I have emotional pain . Sitter in place. PA with patient at this time. Plan of care on going. [ End ]
--- NOTE | 2024-09-30 11:10 | ED.PSYCH ---
HPI - Psych General Chief Complaint: Psychiatric Symptoms Stated Complaint: SI W/PLAN TO DROWN,ANX ABOUT CARING FOR SELF Time Seen by Provider: 09/30/24 10:07 Source: patient, EMS, RN notes reviewed and old records reviewed Mode of arrival: EMS Limitations: no limitations History of Present Illness ED Provider: Korin Lilly PA-C HPI Narrative: 74 yo transgender female to male with history of major depression, dependent personality disorder, anxiety w/ panic attacks, GERD who presents to the ER for evaluation of severe anxiety, depression with plan to drown self. He was just discharged from psych unit at [facility] where he was for 3 months getting ECT with reported improvement in symptoms. He had some med adjustments as well. He was due to have [facility] come to his house today and then [facility] psych provider appointment next week. He lives home alone. He reports wanting to shove the shower head in my throat to drown myself. He has a history of self drowning attempts in the past. MD complaint: suicidal ideation, feels depressed and anxiety Related Data Home Medications ?Medication ?Instructions ?Recorded ?Confirmed buspirone 10 mg tablet 20 mg PO TID 09/30/24 09/30/24 clonazepam 0.5 mg tablet 0.25 mg PO DAILY PRN Anxiety 09/30/24 09/30/24 clonazepam 0.5 mg tablet 0.5 mg PO BID 09/30/24 09/30/24 vortioxetine 20 mg tablet 20 mg PO DAILY 09/30/24 09/30/24 (Trintellix) zolpidem 5 mg tablet 5 mg PO BEDTIME PRN Sleep 09/30/24 09/30/24 Allergies Allergy/AdvReac Type Severity Reaction Status Date / Time ciprofloxacin [From CIPRO] Allergy Unknown DIARRHEA Verified 09/30/24 10:57 Morpholine Analogues Allergy Unknown Unknown Verified 09/30/24 10:57 amoxicillin Allergy Nausea Verified 09/30/24 10:57 meperidine Allergy Unknown Verified 09/30/24 10:57 pollen extracts Allergy Unknown Verified 09/30/24 10:57 [facility] Past Medical History Medical History Transgender Hard of hearing Tracheal stenosis Family History Family History Father Heart disease Social History Social History (System 09/30/24 @ 10:57 by Griselda Metcalf) Household Members: None Housing: House Do you presently have visiting nurse or other home services: No Alcohol intake: never Patient Tobacco Use Status: Never used Tobacco Tobacco use type: Cigarette Years Smoked: 10 Smoked in Last 30 Days: No e-Cigarette/Vaping Use: Never Used Second Hand Smoke Exposure: No Use of substances other than those prescribed or required for medical reasons: No Have you been hit, kicked, punched, or otherwise hurt by someone within the past year? If so, by whom?: No Do you feel safe in your current relationship?: No Current Relationship Is there a partner from a previous relationship who is making you feel unsafe now?: No Are you made to feel afraid or neglected: No Advance Directives: No Advance Directives Information Provided: Yes Do you have a plan to hurt others: No Plan Recently lost weight without trying: No service: No Sexual orientation: Lesbian/Jain/Homosexual Physical Exam Vital Signs: Vital Signs: Last Vital Signs Temp 98.2 F 10/01/24 14:50 Pulse 107 H 10/01/24 14:50 Resp 16 10/01/24 14:50 BP 118/57 L 10/01/24 14:50 Pulse Ox 97 10/01/24 14:50 O2 Del Method Room Air 10/01/24 14:50 BMI result Body Mass Index 22.5 Course Reevaluation(s) Reevaluation #1: Time: 12:24 Date: 09/30/24 Provider: ASHLEY Rubio Patient in physician observation for psychiatric evaluation.? No acute events reported overnight. No current complaints. VS stable.? Patient is in bed search status/pending CARE team evaluation. Will continue to monitor. Time: 12:24 Reevaluation #2: patient seen by CARE team. his psych [facility] was contacted. recommending inpatient level of care. section 12 signed and in the chart Time: 15:05 Reevaluation #3: Time: 10:34 Date: 10/01/24 Provider: Pastor De Paz MD Patient in physician observation for psychiatric evaluation.? No acute events reported overnight. No current complaints. VS stable.? Patient is in bed search status/pending CARE team evaluation. Will continue to monitor. Oct 01 2024 12:28 pm patient will be admitted to the psych unit and this is end the ED observation, disposition admission to psych unit Time: 12:29 Medications Administered Generic Name Dose Route Start Last Admin Trade Name Freq PRN Reason Stop Dose Admin Buspirone HCl 20 mg 09/30/24 21:00 10/01/24 15:28 Buspirone Hcl 10 Mg Tablet PO 20 mg TID SAL Administration Clonazepam 0.25 mg 09/30/24 17:33 09/30/24 23:54 Clonazepam 0.5 Mg Tablet PO 0.25 mg DAILY PRN Administration Anxiety Clonazepam 0.5 mg 09/30/24 21:00 10/01/24 09:02 Clonazepam 0.5 Mg Tablet PO 0.5 mg BID SAL Administration Vortioxetine 20 mg 10/01/24 09:00 10/01/24 09:50 Vortioxetine Hydrobromide 20 Mg Tablet PO 20 mg DAILY SAL Administration Zolpidem Tartrate 5 mg 09/30/24 17:33 09/30/24 20:55 Zolpidem Tartrate 5 Mg Tablet PO 5 mg BEDTIME PRN Administration Sleep Discontinued Medications Generic Name Dose Route Start Last Admin Trade Name Freq PRN Reason Stop Dose Admin Clonazepam 0.5 mg 09/30/24 11:11 09/30/24 11:32 Clonazepam 0.5 Mg Tablet PO 09/30/24 11:12 0.5 mg ONCE ONE Administration Medical Decision Making Medical Decision Making [facility] Narrative: 74-year-old male with a history of severe recurrent depression, anxiety with panic attacks, dependent personality disorder presenting to the ER after a recent 3 months hospitalization for ECT, coming back with ongoing depression, anxiety, suicide ideation with plan to drown self. History of similar presentation in the past. Recent hospitalization here in May followed by the 3 month sent at [facility] where he was receiving ECT 2 times per week patient very anxious and hyperventilating on arrival. Klonopin ordered. medical workup complete and is unremarkable. U tox negative. Care team evaluated him and is recommending inpatient level of care at this time Differential Diagnosis Differential Diagnoses: The differential diagnosis associated with the presentation includes personality disorder, substance induced mood disorder, acute psychosis, schizophrenia, schizoaffective disorder, PTSD, bipolar disorder, major depression with psychotic features Admission/Observation Consideration of admission/observation: Escalation of care including admission/observation considered Lab Data MDM Lab Attestation statement: I reviewed the patient's lab results. mild anemia, no major metabolic derangement 09/30/24 11:30 09/30/24 11:30 Labs: Lab Results 09/30/24 09/30/24 Range/Units 11:30 12:39 WBC 8.1 (4.8-10.8) X10*3/uL RBC 3.88 L (4.60-5.80) X10*6/uL Hgb 12.0 L (14.0-18.0) g/dl Hct 36.1 L (42.0-52.0) % MCV 93.0 (80.0-98.0) fL MCH 30.9 (27.0-33.0) pg MCHC 33.2 (31.0-36.0) g/dl RDW 13.3 (11.0-16.0) % Plt Count 328 (160-400) X10*3/uL MPV 10.2 (9.4-12.4) fL Immature Gran % (Auto) 0.5 H (0.0-0.4) % Neut % (Auto) 72.4 (45-73) % Lymph % (Auto) 12.7 L (20-40) % [place] % (Auto) 13.5 H (2-11) % Eos % (Auto) 0.5 (0-4) % Baso % (Auto) 0.4 (0-2) % Lymph # (Auto) 1.0 L (1.2-4.9) X10*3/uL [place] # (Auto) 1.1 (0.1-1.2) X10*3/uL Eos # (Auto) 0.0 (0.0-0.4) X10*3/uL Baso # (Auto) 0.0 (0.0-0.2) X10*3/uL Abs Immat Gran (auto) 0.04 H (0.00-0.03) X10*3/uL Absolute Neuts (auto) 5.8 (2.0-8.3) x10*3/uL Absolute Nucleated RBC 0.000 (0.0-0.012) X10*3/uL Nucleated RBC % (auto) 0.0 (0.0-0.2) /100WBC Sodium 142 (135-145) mmol/L Potassium 4.2 (3.3-5.1) mmol/L Chloride 108 (96-108) mmol/L Carbon Dioxide 22 (22-29) mmol/L Anion Gap 16 (12-20) BUN 9 (9-16) mg/dL Creatinine 0.74 (0.5-1.4) mg/dL Estim Creat Clear Calc 69.4 Estimated GFR > 60 Random Glucose 96 (60-115) mg/dL Calcium 9.4 (8.4-10.2) mg/dL Magnesium 2.0 (1.6-2.6) mg/dL Total Bilirubin 0.5 (0.0-1.0) mg/dL Direct Bilirubin 0.1 (0.0-0.5) mg/dL AST 18 (5-37) U/L ALT 7 (0-40) U/L Alkaline Phosphatase 121 H (39-117) U/L Total Protein 6.3 L (6.5-8.0) g/dL Albumin 3.7 (3.5-5.0) g/dL TSH 0.66 (0.32-4.0) uIU/mL Urine Color Yellow Urine Appearance Clear Urine pH >= 9.0 (5.0-9.0) Ur Specific [place] <= 1.005 (1.005-1.025) Urine Protein Negative (Neg-Trace) mg/dL Urine Glucose (UA) Negative (Negative) mg/dL Urine Ketones Negative (Negative) mg/dL Urine Blood Negative (Negative) Urine Nitrite Negative (Negative) Ur Leukocyte Esterase Negative (Negative) Urine Opiates Screen Not Detected (Not Detect) Ur Buprenorphine Scrn Not Detected (Not Detect) ng/mL Ur Oxycodone Screen Not Detected (Not Detect) ng/mL Urine Methadone Screen Not Detected (Not Detect) ng/mL Urine Fentanyl Screen Not Detected (Not Detect) Ur Barbiturates Screen Not Detected (Not Detect) Ur Phencyclidine Scrn Not Detected (Not Detect) Ur Amphetamines Screen Not Detected (Not Detect) U Benzodiazepines Scrn Not Detected (Not Detect) Urine Cocaine Screen Not Detected (Not Detect) U Marijuana (THC) Screen Not Detected (Not Detect) Ethyl Alcohol < 10 mg/dL Independent Historian Clinical information obtained from an independent historian. History obtained from or confirmed by: EMS External Record Review External record reviewed: Inpatient record, Outpatient record, Prior outpatient labs and Prior outpatient radiology Prescription Management I considered prescription management with: Other (iolytic) Chronic Conditions Patient?s care impacted by: Other (depression) Social Determinants Patient?s care significantly limited by Social Determinants of Health including: Problems related to primary support group Critical Care Time Critical Care Time Critical Care Time: No Discharge Plan Discharge Clinical Impression: Suicidal ideation Patient Disposition: Admitted As Inpatient Interventions: Sharkey-Suicide Risk Severity Scale Last Done: 10/01/24 16:00 Admission Worksheet (ED) Last Done: 10/01/24 14:28 Discharge Date/Time: 10/01/24 14:52
--- NOTE | 2024-09-30 11:10 | PC.NURSE ---
Report received. Taken over care at this time.
--- OUTSIDE RECORDS SUMMARY | 2024-09-30 11:21 | XMS_ITS | Encounter Summary ---
Author Organization [employer] Address [address] [place] [address] Care Team Providers Care Rivet Catcher Name Role Phone Unavailable Primary Care Provider Unavailabl e Encounter Details Date Type Department Care Team (Latest Contact Info) Description 12/02/2021 Abstract [facility] CONVERSIONS Dental, Provider, DDS Social History Tobacco Use Types Packs/Day Years Used Date Smoking Tobacco: Never Assessed Comments Unknown Sex and Gender Information Value Date Recorded Sex Assigned at Female 04/22/2022 12:18 PM EST Legal Sex Male 5:42 PM EDT Gender Identity Transgender Male 04/28/2022 2:09 PM EST Sexual Orientation Straight 04/28/2022 2: 09 PM EST documented as of this encounter Plan of Treatment Not on file documented as of this encounter Visit Diagnoses Not on filedocumented in this encounter
--- OUTSIDE RECORDS SUMMARY | 2024-09-30 11:21 | XMS_ITS | Clinical Summary ---
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 Difficile Milk Containing Products (Dairy) Other (see comments) 03/04/2015 Increases mucous, also on Vegan diet Opioids - Morphine Analogues Other (see comments) 03/04/2015 Converted from narcotics. Please confirm with patient. 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 Please confirm with patient. 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 busPIRone (BUSPAR) 10 mg tablet Take 2 tablets (20 mg total) by mouth 3 times a day. 84 tablet 09/25/2024 12:09 PM EDT 5 Active cholecalciferol (VITAMIN D3) 2,000 unit tablet Take 1 tablet (2,000 Units total) by mouth once a day. 14 tablet 5 Active clonazePAM (KlonoPIN) 0.5 mg tablet Take 1 tablet (0.5 mg total) by mouth 2 times a day. May also take an additional 1/2 a tablet (0.25 mg) daily as needed for anxiety. Do all this for 14 days. 35 tablet 09/25/2024 12:09 PM EDT 05/07/10/10/19 25 Active guaiFENesin (ROBITUSSIN) 100 mg/5 mL syrup Take 10 mL (200 mg total) by mouth every 4 hours as needed for cough. 120 mL 5 Active melatonin 3 mg tablet Take 2 tablets (6 mg total) by mouth nightly as needed for sleep. 28 tablet 5 Active vortioxetine (TRINTELLIX) 20 mg tablet Take 1 tablet (20 mg total) by mouth once a day. 14 tablet 09/25/2024 12:09 PM EDT 5 Active zolpidem (AMBIEN) 5 mg tablet Take 1 tablet (5 mg total) by mouth nightly. 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 07/18/2024 MGUS (monoclonal gammopathy of unknown significa nce) 01/16/2024 Anemia in neoplastic disease 01/16/2024 Dysrhythmia, cardiac 11/16/2022 Major depressive disorder, recurrent, unspecifie d 07/01/2022 Class 1 obesity due to excess calories in adult 04/27/2022 Post traumatic stress disorder (PTSD) 05/06/2021 Gastroesophageal reflux disease 05/29/2017 Granulomatosis with polyangiitis 12/11/2015 Sensorineural hearing loss 05/22/2012 Overview (07/18/2024): left ear Resolved Problems Problem Noted Date Diagnosed Date Resolved Date Overweight (BMI 25.0-29.9) 11/16/2022 0 07/18/2024 Vitamin D deficiency 05/06/2021 025 Lumbar radiculitis 05/29/2017 5 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 Date Type Department Care Team Description 08/21/2024 9:38 AM EDT Anesthesia Event [facility] [address] [place] [address] [id number] Bekah Elam MD 08/19/2024 7:31 AM EDT Anesthesia Event [facility] [address] [place] [address] Riya Samano MD 08/16/2024 7:37 AM EDT Anesthesia Event [facility] [address] [place] [address] Nadeem Watkins MD 08/14/2024 8:29 AM EDT Anesthesia Event [facility] [address] [place] [address] Jhon Serna MD Banks, Joseph A., CRNA 08/12/2024 7:46 AM EDT Anesthesia Event [facility] [address] [place] [id number] Marysol Michael MD 08/09/2024 9:29 AM EDT Anesthesia Event [facility] [address] [place] [address] Frankie Lugo MD 08/07/2024 9:36 AM EDT Anesthesia Event [facility] [address] [place] [id number] Génesis Boss MD 08/05/2024 7:46 AM EDT Anesthesia Event [facility] [address] [place] [id number] Haseeb Delgado MD PhD 08/02/2024 7:49 AM EDT Anesthesia Event [facility] [address] [place] [phone] Yoel Waddell MD Gabriel, Shylanda, SRNA 07/31/2024 9:29 AM EDT Anesthesia Event [facility] [address] [place] [phone] Yoel Waddell MD 2024 7:29 AM EDT Anesthesia Event [facility] [address] [place] [address] Haseeb Paz, 07/26/2024 8:46 AM EST Anesthesia Event [facility] [address] [place] [address] Génesis Boss MD 07/24/2024 8:52 AM EST Anesthesia Event [facility] [address] [place] [address] Daphne Morrison MD Torri, Andrea, MD from Last 3 Months Social History Tobacco Use Types Packs/Day Years Used Date Smoking Tobacco: Never Smokeless Tobacco: Never Tobacco Cessation:Counseling Given: Not Answered Alcohol Use Standard Drinks/Week Comments Not Currently 0 (1 standard drink = 0.6 oz pur e alcohol) Comments No Sex and Gender Information Value Date Recorded Sex Assigned at Female 09/08/2024 1:27 PM EDT Legal Sex Male 5:50 PM EST Gender Identity Male 07/24/2024 8:58 AM EST Sexual Orientation Not on file Last Filed Vital Signs Vital Sign Reading Time Taken Comments Blood Pressure 117/82 09/25/2024 6:47 AM EDT Pulse 96 09/25/2024 6:47 AM EDT Temperature 37.1 ??C (98.8 ??F) 09/25/2024 6:47 AM ED T Respiratory Rate 16 09/25/2024 6:47 AM EDT Oxygen Saturation 95% 09/25/2024 6:47 AM EDT Inhaled Oxygen Concentration - - Weight 75.5 kg (166 lb 6.4 oz) 07/18/2024 6:37 P M EST Height 160 cm (5' 3 ) 07/18/2024 6:37 PM EST Body Mass Index 29.48 07/18/2024 6:37 PM EST Plan of Treatment Health Maintenance Due Date Last Done Comments Cologuard 1950 Colonoscopy 1950 Hepatitis C Screening 1950 Sigmoidoscopy 1950 Medicare AWV 1951 Osteoporosis Screening 07/30/1999 Pneumococcal Vaccine: 50+ Years (1 of 1 - PCV) 07/30/1999 Zoster Vaccines (1 of 2) 07/30/1999 Colon Cancer Screening 01/17/2024 FOBT / Fit Test 01/17/2024 01/16/2023 Alcohol/Substance Use Screening 05/22/2024 Depression Screening and Follow-Up 05/22/2024 Health Care Proxy Review 05/22/2024 Social Drivers of Health Annual Screening 05/22/2024 RSV Vaccine (60+ years old and patients) (1 - 1-dose 75+ series) 2024 COVID-19 Vaccine (5 - season) 2024 02/23/2024, 11/07/2021, 12/04/2020, Additional history exists DTaP,Tdap,and Td Vaccines (2 - Td or Tdap) 11/10/2033 11/11/2023 Influenza Vaccine Completed 02/23/2024, , 03/31/2021, Additional history exists Hepatitis B Vaccines Aged Out No long er eligible based on patient's age to complete this topic Procedures * Due to [place] state law, this organization might not be sharing negative HIV tests. Procedure Name Priority Date/Time Associated Diagnosis Comments BASIC METABOLIC PANEL STAT 09/20/2024 9:37 AM EDT CBC AUTO DIFFERENTIAL STAT 09/20/2024 9:37 AM EDT XR CHEST 2 VW Routine 09/18/2024 2:21 AM EDT MVL QS - COVID-19, FLU A/B & RSV RNA PCR, SYMPTOMATIC Routine 09/17/2024 9:19 PM EDT XR CHEST 2 VW Routine 09/06/2024 12:14 PM EDT MVL QS - COVID-19, FLU A/B & RSV RNA PCR, SYMPTOMATIC Routine 09/06/2024 10:56 AM EDT ELECTROCONVULSIVE THERAPY Routine 2024 9:53 AM EDT ECG 12-LEAD Routine 08/21/2024 8:05 AM EDT ECG 12-LEAD Routine 08/21/2024 8:04 AM EDT NEURODIAGNOSTIC - SCANNED 08/21/2024 ELECTROCONVULSIVE THERAPY Routine 2024 7:21 AM EDT NEURODIAGNOSTIC - SCANNED 08/19/2024 ELECTROCONVULSIVE THERAPY Routine 2024 7:09 AM EDT ELECTROCONVULSIVE THERAPY Routine 2024 8:10 AM EDT NEURODIAGNOSTIC - SCANNED 08/14/2024 ELECTROCONVULSIVE THERAPY Routine 2024 7:10 AM EDT NEURODIAGNOSTIC - SCANNED 08/12/2024 ELECTROCONVULSIVE THERAPY Routine 2024 7:30 AM EDT NEURODIAGNOSTIC - SCANNED 08/09/2024 ELECTROCONVULSIVE THERAPY Routine 2024 9:45 AM EDT NEURODIAGNOSTIC - SCANNED 08/07/2024 ELECTROCONVULSIVE THERAPY Routine 2024 7:10 AM EDT NEURODIAGNOSTIC - SCANNED 08/05/2024 ELECTROCONVULSIVE THERAPY Routine 2024 7:06 AM EDT NEURODIAGNOSTIC - SCANNED 08/02/2024 ELECTROCONVULSIVE THERAPY Routine 2024 9:40 AM EDT NEURODIAGNOSTIC - SCANNED 07/31/2024 ELECTROCONVULSIVE THERAPY Routine 2024 7:07 AM EDT ELECTROCONVULSIVE THERAPY Routine 2024 7:18 AM EST ELECTROCONVULSIVE THERAPY Routine 2024 9:03 AM EST NEURODIAGNOSTIC - SCANNED 07/24/2024 ECG 12-LEAD Routine 07/19/2024 8:03 AM EST FOLATE Routine 07/19/2024 6:46 AM EST VITAMIN B12 Routine 07/19/2024 6:46 AM EST VITAMIN B12 Routine 07/19/2024 6:46 AM EST COMPREHENSIVE METABOLIC PANEL Routine 07/19/2024 6:46 AM EST TSH REFLEX FREE T4 Routine 07/19/2024 6: 46 AM EST HEMOGLOBIN A1C Routine 07/19/2024 6:46 AM EST CBC AUTO DIFFERENTIAL Routine 07/19/2024 6:46 AM EST LIPID PANEL Routine 07/19/2024 6:46 AM EST HEART & VASCULAR - SCANNED 07/18/2024 NEURODIAGNOSTIC - SCANNED 07/18/2024 NEURODIAGNOSTIC - SCANNED 07/18/2024 NEURODIAGNOSTIC - SCANNED 07/18/2024 from Last 3 Months Results * Due to [place] state law, this organization might not be sharing negative HIV tests. * (ABNORMAL) CBC Auto Differential (09/20/2024 9:37 AM EDT) Only the most recent of2 resultswithin the time period is included. WBC 7.3 3.8 - 10.8 10*3/uL 09/20/2024 10:06 AM EDT [facility] RBC 3.73(L) 3.80 - 5.80 10*6/uL 09/20/2024 10:06 AM EDT [facility] Hemoglobin 11.3(L) 13.2 - 17.1 g/dL 09/20/2024 10:06 AM EDT [facility] Hematocrit 35.7 35.0 - 50.0 % 09/20/2024 10:06 AM EDT [facility] MCV 95.7 80.0 - 100.0 fL 09/20/2024 10:06 AM EDT [facility] MCH 30.3 27.0 - 33.0 pg 09/20/2024 10:06 AM EDT [facility] MCHC 31.7(L) 32.0 - 36.0 g/dL 09/20/2024 10:06 AM EDT [facility] RDW 13.2 11.0 - 15.0 % 09/20/2024 10:06 AM EDT [facility] Platelets 385 140 - 400 10*3/uL 09/20/2024 10:06 AM EDT [facility] MPV 10.6 7.5 - 12.5 fL 09/20/2024 10:06 AM EDT [facility] Neutrophil % 66.9 % 09/20/2024 10:06 AM EDT [facility] Immature Grans % 1.0(H) 0.0 - 0.9 % 09/20/2024 10:06 AM EDT [facility] Lymphocyte % 15.5 % 09/20/2024 10:06 AM EDT [facility] Monocyte % 15.0 % 09/20/2024 10:06 AM EDT [facility] Eosinophil % 1.2 % 09/20/2024 10:06 AM EDT [facility] Basophil % 0.4 % 09/20/2024 10:06 AM EDT [facility] Neutrophil # 4.86 1.50 - 7.80 10*3/uL 09/20/2024 10:06 AM EDT [facility] Immature Grans # 0.07(H) <=0.03 10*3/uL 09/20/2024 10:06 AM EDT [facility] Lymphocyte # 1.10 0.85 - 3.90 10*3/uL 09/20/2024 10:06 AM EDT [facility] Monocyte # 1.10(H) 0.20 - 0.95 10*3/uL 09/20/2024 10:06 AM EDT [facility] Eosinophil # 0.10 0.02 - 0.50 10*3/uL 09/20/2024 10:06 AM EDT [facility] Basophil # <0.03 0.00 - 0.20 10*3/uL 09/20/2024 10:06 AM EDT [facility] nRBC % 0.0 /100 WBCs 09/20/2024 10:06 AM EDT [facility] nRBC # <0.01 <0.01 10*3/uL 09/20/2024 10:06 AM EDT [facility] Blood Structure of peripheral vein / Unknown Venipuncture / Unknown 09/20/2024 9:37 AM EDT 09/20/2024 9:55 AM EDT us Pattie Monsivais SEO PROFESSIONAL LAB BLOOD ORDERABLES Final Result Performing Organization Address City/State/[facility] Co de Phone Number [facility] [address] [place] [address], * (ABNORMAL) Basic metabolic panel (09/20/2024 9:37 AM EDT) NA 142 135 - 145 mmol/L 09/20/2024 10:36 AM EDT [facility] K 3.9 3.5 - 5.3 mmol/L 09/20/2024 10:36 AM EDT [facility] Cl 107 98 - 107 mmol/L 09/20/2024 10:36 AM EDT [facility] CO2 22 22 - 32 mmol/L 09/20/2024 10:36 AM EDT [employer] BUN 9 7 - 23 mg/dL 09/20/2024 10:36 AM EDT [facility] Creatinine 0.85 0.50 - 1.30 mg/dL 09/20/2024 10:36 AM EDT [facility] Glucose 127(H) 65 - 99 mg/dL 09/20/2024 10:36 AM EDT [facility] Calcium 9.2 8.6 - 10.5 mg/dL 09/20/2024 10:36 AM EDT [facility] Anion Gap 13 5 - 15 09/20/2024 10:36 AM EDT [facility] eGFR >90 >=60 mL/min/1. 73m2 09/20/2024 10:36 AM EDT [facility] Comment:The estimated glomer ular filtration rate (eGFR) is calculated using a new formula developed by the NKF-ASN task force to eliminate race-based correction factors. The new formula uses serum/plasma creatinine, age, and gender to determine eGFR. A value below 60mls/min might indicate kidney disease and will be flagged. For additional information, see Conchita et al, Am J Kidney Dis. 2021;79(2):268- 288, A Unifying Approach for GFR estimation: Recommendations of the NKF-ASN Task Force on Reassessing the Inclusion of Race in Diagnosing Kidney Disease . Blood Structure of peripheral vein / Unknown Venipuncture / Unknown 09/20/2024 9:37 AM EDT 09/20/2024 10:07 AM EDT us Pattie Monsivais NP LAB BLOOD ORDERABLES Final Result [facility] [address] [place] [address], [place] * X-Ray Chest 2 Views (09/18/2024 2:21 AM EDT) Only the most recent of2 resultswithin the time period is included. Anatomical Region Laterality Modality Body Computed Radiogr aphy 09/18/2024 3:45 PM EDT Impressions 09/18/2024 3:46 PM EDT Heart size top normal. Considerable diffuse interstitial thickening/underaeration throughout both lungs. No large effusions. Bones demineralized but otherwise intact. Levoscoliosis ?? noted at the thoracolumbar junction. If this radiology report contains a blank impression section, it is an incomplete radiology report. ??Please contact the interpreting radiologist or applicable radiology division as soon as possible to obtain the completed interpretation. ? Workstation ID: [id number] Narrative 09/18/2024 3:46 PM EDT COMPARISON: ??09/06/2024 FINDINGS AND Resulting Agency Comment [id number] Procedure Note Nadeem Mullen MD - 09/18/2024 COMPARISON: 09/06/2024 FINDINGS AND IMPRESSION: Heart size top normal. Considerable diffuse interstitialthickening/underaeration throughout both lungs. No large effusions. Bonesdemineralized but otherwise intact. Levoscoliosis noted at the thoracolumbar junction. If this radiology report contains a blank impression section, it is anincomplete radiology report. Please contact the interpreting radiologistor applicable radiology division as soon as possible to obtain thecompleted interpretation. Workstation ID: [id number] Raza Baird MD MPH IMG XR PROCEDURES Final Resul t * COVID-19, Flu A/B & RSV RNA PCR, Symptomatic (09/17/2024 9:19 PM EDT) Only the most recent of2 resultswithin the time period is included. PCR, SARS CoV-2 RNA Not Detected Not Detected CE[employer] GEN[employer] 09/17/2024 10:27 PM EDT [facility] Comment:A Not Detected (Nega tive) test result is indicative of the absence of SARS-CoV-2 RNA at the level of LoD (Limit of Detection). A negative result does not rule out the possibility of COVID-19 and should not be used as the sole basis for treatment or patient management decisions. If COVID-19 is still suspected, based on exposure history together with other clinical findings, re-testing should be considered. Flu A RNA PCR Not Detected Not Detected CEPCátedras LibresID GENEXPERT 09/17/2024 10:27 PM EDT [facility] Comment:Negative results do not preclude infection and should not be used as the sole basis for diagnosis, treatment or other patient management decisions. Negative results must be combined with clinical observations, patient history, and/or epidemiological information. Flu B RNA PCR Not Detected Not Detected CEPC[facility]ras [facility] GENEXPERT 09/17/2024 10:27 PM EDT [facility] Comment:Negative results do not preclude infection and should not be used as the sole basis for diagnosis, treatment or other patient management decisions. Negative results must be combined with clinical observations, patient history, and/or epidemiological information. RSV RNA PCR Not Detected Not Detected CEPCátedras LibresID [employer]XPERT 09/17/2024 10:27 PM EDT [facility] Comment:Negative results do not preclude infection and should not be used as the sole basis for diagnosis, treatment or other patient management decisions. Negative results must be combined with clinical observations, patient history, and/or epidemiological information. Swab (Nares) Non-Blood Collection / Unknown 09/17/2024 9:19 PM EDT 09/17/2024 9:27 PM EDT Narrative [facility] - 09/17/2024 10:27 PM EDT This test was developed, validated and its performance characteristics determined by [facility]. This test has not been cleared or approved by the U.S. Food and Drug Administration (FDA). FDA Policy for Diagnostic Tests for Coronavirus Disease-2019 during the Public Health Emergency issued August 05, 2019, is followed. us Raza Baird MD MPH LAB BODY FLUIDS AND STOOLS OR DERABLES Final Result [facility] [address] [place] [address], [place] * ELECTROCONVULSIVE THERAPY (08/21/2024 9:53 AM EDT) Only the most recent of13 resultswithin the time period is included. Alicia Green MD - 08/21/2024 9:53 AM EDT Alicia Edward MD ? 08/21/2024 10:01 AM Electronconvulsive Therapy Psychiatry Procedure Note Patient Name: ??Shalom Smith ? Date of : 1950 Date of Procedure: 08/21/2024 ? Interval history: Patient tolerated last ECT well, denies having any ADEs. Continues to endorse some anxiety over the weekend however overall feeling OK. Denies SI today. Endorsing some improvement in mood. Had PACs after getting glyco. Resolved after 20 min and anesthesiology team felt it was safe to treat. Will hold RCT after today as patient appears close to baseline PHQ-9 ??4 (08/21/24) MMSE 29 (08/24/24) Consent was obtained from patient on 07/24/2024 Treatment #: Index 13 Pre-Procedure Dx: MDD severe Electrode placement: Bitemporal MECTA settin.5/120/4/800 Number of Stimulations: 1 Seizure Duration: 33 ??Seconds Motor ??39 ?? Seconds EEG ??Total Charge 384 Cognitive Assessment Since Last Treatment: alert and well oriented Post Procedure Assessment of Mental Status: Current Thought Content: Suicidal Ideation: No (if yes, add explanation to comments below) Comments: Medications Administered: Succinylcholine 80 mg ??and Brevital 80 mg , glyco 0.1mg ?? Post-procedure Dx: Same as pre-procedure diagnosis Is the patient stable for discharge/transfer from the PACU: Yes (If no, explain) Date/Time of Next Scheduled Procedure: not scheduled Refer to Discharge Instruction Sheet or Physician Progress Note for further post procedure instructions. Please call ECT Attending or Resident if patient experiences a change in mental status, muscle aches, headaches, nausea or has other questions. Alicia Edward MD 08/21/2024 9:53 AM Pattie Monsivais NP BEHAVIORAL HEALTH ORDERABL ES Edited Result - Final * ECG 12 lead (08/21/2024 8:05 AM EDT) Only the most recent of3 resultswithin the time period is included. Ventricular Rate EKG 73 BPM MUSE EKG Atrial Rate 76 BPM [facility]USE EKG QRS Interval 70 ms MUSE EKG QT Interval 432 ms MUSE EKG QTC Interval 475 ms MUSE EKG R [place] 21 degrees MUSE EKG T Wave [place] 30 degrees MUSE EKG 08/21/2024 8:05 AM EDT 08/21/2024 12:37 PM EDT Impressions [facility] EKG - 08/21/2024 12:37 PM EDT NORMAL SINUS RHYTHM WITH PREMATURE ATRIAL COMPLEXES ABNORMAL ECG WHEN COMPARED WITH ECG OF 21-AUG-2024 08:04, (UNCONFIRMED) NO SIGNIFICANT CHANGE WAS FOUND Confirmed by Hugo Wooten ([id number]) on 08/21/2024 12:37:26 PM us Raza Baird MD MPH ECG ORDERABLES Final Result [facility] EKG * NEURODIAGNOSTIC - SCANNED (08/21/2024) us Onbase Scan [facility]airo SCANNED PROCEDURES Final Resu lt * NEURODIAGNOSTIC - SCANNED (08/19/2024) us Onbase Scan [facility]airo SCANNED PROCEDURES Final Resu lt * NEURODIAGNOSTIC - SCANNED (08/14/2024) us Onbase Scan [facility]airo SCANNED PROCEDURES Final Resu lt * NEURODIAGNOSTIC - SCANNED (08/12/2024) us Onbase Scan [employer]airo SCANNED PROCEDURES Final Resu lt * NEURODIAGNOSTIC - SCANNED (08/09/2024) us Onbase Scan [employer]airo SCANNED PROCEDURES Final Resu lt * NEURODIAGNOSTIC - SCANNED (08/07/2024) us Onbase Scan [employer]airo SCANNED PROCEDURES Final Resu lt * NEURODIAGNOSTIC - SCANNED (08/05/2024) us Onbase Scan [employer]airo SCANNED PROCEDURES Final Resu lt * NEURODIAGNOSTIC - SCANNED (08/02/2024) us Onbase Scan [employer]airo SCANNED PROCEDURES Final Resu lt * NEURODIAGNOSTIC - SCANNED (07/31/2024) us Onbase Scan [employer] SCANNED PROCEDURES Final Resu lt * NEURODIAGNOSTIC - SCANNED (07/24/2024) us Onbase Scan [employer] SCANNED PROCEDURES Final Resu lt * TSH Reflex Free T4 (07/19/2024 6:46 AM EST) TSH 2.440 0.280 - 3.890 uIU/mL 07/19/2024 8:16 AM EST [facility] Blood Structure of peripheral vein / Unknown Venipuncture / Unknown 07/19/2024 6:46 AM EST 07/19/2024 6:56 AM EST us Raza Baird MD MPH LAB BLOOD ORDERABLES Final Re [facility] [address] [place] [address], [place] * (ABNORMAL) Hemoglobin A1c (07/19/2024 6:46 AM EST) Hemoglobin A1C 6.0(H) <5.7 % of total Hgb 07/19/2024 11:08 AM EST [employer] Comment: For someone without known diabetes, a hemoglobin A1c value between 5.7% and 6.4% is consistent with prediabetes and should be confirmed with a follow-up test. For someone with known diabetes, a value <7% indicates that their diabetes is well controlled. A1c targets should be individualized based on duration of diabetes, age, comorbid conditions, and other considerations. This assay result is consistent with an increased risk of diabetes. Currently, no consensus exists regarding use of hemoglobin A1c for diagnosis of diabetes for children. eAG (MG/DL) 126 mg/dL 07/19/2024 11:08 AM EST [facility] eAG (MMOL/L) 7.0 mmol/L 07/19/2024 11:08 AM EST [facility] Blood Structure of peripheral vein / Unknown Venipuncture / Unknown 07/19/2024 6:46 AM EST 07/19/2024 6:56 AM EST Narrative [facility] - 07/19/2024 11:08 AM EST [facility] Received Date:[id number] Raza Baird MD MPH LAB BLOOD ORDERABLES Final Re sult Performing Organization Address City/[facility]/ZIP Co de Phone Number [address], [place] [address], [place] [phone] [facility] [address], [address] [place] [address], [place] [phone] * (ABNORMAL) Folate (07/19/2024 6:46 AM EST) Folate 28.9(H) 4.8 - 24.2 ng/mL 07/19/2024 8:32 AM EST [facility] Blood Structure of peripheral vein / Unknown Venipuncture / Unknown 07/19/2024 6:46 AM EST 07/19/2024 6:56 AM EST Raza Baird MD MPH LAB BLOOD ORDERABLES Final Re sult [facility] [address] [place] [id number], [place] * Vitamin B12 (07/19/2024 6:46 AM EST) Vitamin B12 598 232 - 1,245 pg/mL 07/19/2024 8:16 AM EST [facility] Blood Structure of peripheral vein / Unknown Venipuncture / Unknown 07/19/2024 6:46 AM EST 07/19/2024 6:56 AM EST us Raza Baird MD MPH LAB BLOOD ORDERABLES Final Re sult [facility] [address] [place] [address], * (ABNORMAL) Lipid panel - Fasting (07/19/2024 6:46 AM EST) Cholesterol 249(H) <=199 mg/dL 07/19/2024 7:47 AM EST [facility] Triglycerides 234(H) <=149 mg/dL 07/19/2024 7:47 AM EST [facility] Cholesterol, HDL 59 40 - 59 mg/dL 07/19/2024 7:47 AM EST [facility] Cholesterol, Non-HDL 190 mg/dL 07/19/2024 7:47 AM EST [facility] LDL Cholesterol 143(H) <100 mg/dL 07/19/2024 7:47 AM EST [facility] VLDL 46.8 mg/dL 07/19/2024 7:47 AM EST [facility] Cholesterol/HDL Ratio 4.2 <5.0 07/19/2024 7:47 AM EST [facility] Blood Structure of peripheral vein / Unknown Venipuncture / Unknown 07/19/2024 6:46 AM EST 07/19/2024 6:56 AM EST Narrative [facility] - 07/19/2024 7:47 AM EST Adult Treatment Panel III Guidelines of NCEP 2000 ? Category: ? Total Cholesterol (mg/dL) ?Desirable ?<200 ?Borderline High ? 200-239 ?High ?>=240 ? Category: ? LDL Cholesterol (mg/dL) ?Optimal ?<100 ?Near Optimal/Above Optimal ?100-129 ?Borderline High ? 130-159 ?High ?160-189 ?Very High ? >=190 ? Category: ? HDL Cholesterol (mg/dL) ?Low ?<40 ?High ?>=60 NCEP's Expert Panel on Blood Cholesterol in Children and Adolescents ? Category: ? Total Cholesterol (mg/dL) ?Desirable ?<170 ?Borderline High ? 170-199 ?High ?>=200 ? Category: ? LDL Cholesterol (mg/dL) ?Desirable ?<110 ?Borderline High ? 110-129 ?High ?>=130 us Raza Baird MD MPH LAB BLOOD ORDERABLES Final Re sult [facility] [address] [place] [address], * (ABNORMAL) Comprehensive metabolic panel (07/19/2024 6:46 AM EST) NA 143 135 - 145 mmol/L 07/19/2024 7:47 AM EST [facility] K 4.1 3.5 - 5.3 mmol/L 07/19/2024 7:47 AM EST [facility] Cl 107 98 - 107 mmol/L 07/19/2024 7:47 AM EST [facility] CO2 22 22 - 32 mmol/L 07/19/2024 7:47 AM EST [facility] Anion Gap 14 5 - 15 07/19/2024 7:47 AM EST [facility] Glucose 117(H) 65 - 99 mg/dL 07/19/2024 7:47 AM EST [facility] Creatinine 0.80 0.60 - 1.30 mg/dL 07/19/2024 7:47 AM EST [facility] Calcium 9.5 8.6 - 10.5 mg/dL 07/19/2024 7:47 AM EST [facility] Total Protein 6.2 6.0 - 8.0 g/dL 07/19/2024 7:47 AM EST [facility] Albumin 3.8 3.5 - 5.2 g/dL 07/19/2024 7:47 AM EST [facility] Bilirubin, Total 0.3 0.2 - 1.2 mg/dL 07/19/2024 7:47 AM EST [facility] Alkaline Phosphatase 100 35 - 129 U/L 07/19/2024 7:47 AM EST [facility] AST 21 10 - 40 U/L 07/19/2024 7:47 AM EST [facility] ALT 15 10 - 40 U/L 07/19/2024 7:47 AM EST [facility] BUN 10 7 - 23 mg/dL 07/19/2024 7:47 AM EST [facility] eGFR >90 >=60 mL/min/1. 73m2 07/19/2024 7:47 AM EST [facility] Comment:The estimated glomer ular filtration rate (eGFR) is calculated using a new formula developed by the NKF-ASN task force to eliminate race-based correction factors. The new formula uses serum/plasma creatinine, age, and gender to determine eGFR. A value below 60mls/min might indicate kidney disease and will be flagged. For additional information, see Conchita mcclure al, Am J Kidney Dis. 2021;79(2):268- 288, A Unifying Approach for GFR estimation: Recommendations of the NKF-ASN Task Force on Reassessing the Inclusion of Race in Diagnosing Kidney Disease . Globulin, Total 2.4 2.1 - 4.2 g/dL 07/19/2024 7:47 AM EST [facility] A/G Ratio 1.6 1.5 - 3.0 07/19/2024 7:47 AM EST [facility] Blood Structure of peripheral vein / Unknown Venipuncture / Unknown 07/19/2024 6:46 AM EST 07/19/2024 6:56 AM EST us Raza Baird MD MPH LAB BLOOD ORDERABLES Final Re sult [facility] [address] [place] [address], [place] * NEURODIAGNOSTIC - SCANNED (07/18/2024) us Onbase Scan Jairo SCANNED PROCEDURES Final Resu lt * NEURODIAGNOSTIC - SCANNED (07/18/2024) us Onbase Scan Jairo SCANNED PROCEDURES Final Resu lt * NEURODIAGNOSTIC - SCANNED (07/18/2024) us Onbase Scan Jairo SCANNED PROCEDURES Final Resu lt * HEART & VASCULAR - SCANNED (07/18/2024) Anatomical Region Laterality Modality Other us Onbase Scan Jairo SCANNED PROCEDURES Final Resu lt from Last 3 Months Insurance MEDICARE Advance Directives Documents on File Type Date Recorded Patient 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
--- OUTSIDE RECORDS SUMMARY | 2024-09-30 11:21 | XMS_ITS | Clinical Summary ---
Author Organization [employer] Address [address] [facility] [address] [place] [address] Care Team Providers Care Patcher Bowling Ball Name Role Phone Unavailable Primary Care Provider Unavailabl e Allergies Active Allergy Reactions Criticality Noted Date Comments Sympathomimetics 04/28/2022 Medications amitriptyline (Elavil) 10 MG tablet TAKE 2 TABLET (10 MG) BY MOUTH DAILY AT BEDTIME 10/27/2021 Active buPROPion XL (Wellbutrin XL) 150 MG 24 hr tablet Take 150 mg by mouth in the morning. 08/11/2021 Active busPIRone (Buspar) 10 MG tablet 04/25/2022 Active cholecalciferol (Vitamin D-3) 125 MCG (5000 UT) capsule Take 125 mcg by mouth in the morning. 08/16/2021 Active escitalopram (Lexapro) 10 MG tablet TAKE 1 & 1/2 TABLET BY MOUTH EVERY MORNING 04/01/2022 Active famotidine (Pepcid) 20 MG tablet Take 20 mg by mouth at bedtime. 04/12/2022 Active hydrOXYzine HCl (Atarax) 25 MG tablet TAKE 1 TABLET BY MOUTH EVERY DAY AT BEDTIME NEEDED FOR ANXIETY 07/06/2021 Active LORazepam (Ativan) 0.5 MG tablet 04/27/2022 Active Myrbetriq 50 MG 24 hr tablet 04/25/2022 Active OLANZapine (ZyPREXA) 5 MG tablet Take 1 tablet by mouth at bedtime. 04/15/2022 Active pantoprazole (ProtoNix) 40 MG EC tablet Take 40 mg by mouth in the morning. 03/05/2022 Active riTUXimab (Rituxan) 500 MG/50ML chemo injection Infuse 1,000 mg into a venous catheter every 6 months. 04/20/2017 Active venlafaxine (Effexor) 37.5 MG tablet TAKE ONE TABLET EVERY MORNING (IN ADDITION TO THE 75MG ) 06/17/2021 Active zolpidem (Ambien) 10 MG tablet 04/27/2022 Active Encounters Date Type Department Care Team Description 07/30/2024 Patient Outreach [facility] [address] [place] [address] Chaparrita Starr from Last 3 Months Social History Tobacco Use Types Packs/Day Years Used Date Smoking Tobacco: Never Assessed Comments Unknown Sex and Gender Information Value Date Recorded Sex Assigned at Female 04/22/2022 12:18 PM EST Legal Sex Male 5:42 PM EDT Gender Identity Transgender Male 04/28/2022 2:09 PM EST Sexual Orientation Straight 04/28/2022 2: 09 PM EST Last Filed Vital Signs Vital Sign Reading Time Taken Comments Blood Pressure - - Pulse - - Temperature 36 ??C (96.8 ??F) 04/28/2022 2:09 PM EST Respiratory Rate - - Oxygen Saturation - - Inhaled Oxygen Concentration - - Weight - - Height - - Body Mass Index - - Plan of Treatment Health Maintenance Due Date Last Done Comments CT Colonography 1949 Colonoscopy 1949 Depression Screening 1949 FIT DNA/Cologuard 1949 Lipid Panel 1949 SDOH Screening 1949 Sigmoidoscopy 1949 Alcohol/Substance Use Screening 1961 Tobacco Screening 1961 Hepatitis C Screening 07/30/1967 Pneumococcal Vaccine: 50+ Years (1 of 1 - PCV) 07/30/1999 Zoster Vaccines (1 of 2) 07/30/1999 Dental X-Ray: Full Mouth 05/10/2021 05/09/2018 Dental Oral Exam 08/03/2023 02/01/2023, , 12/16/2020, Additional history exists Dental Prophylaxis 08/03/2023 02/01/2023, 0 12/02/2021, 12/16/2020, Additional history exists Colorectal Cancer Screening 01/17/2024 FIT 01/17/2024 01/16/2023, 08/2 11/2022, 01/14/2023 FOBT 01/17/2024 01/16/2023, 08/11/2022, 01/14/2023 COVID-19 Vaccine ( season) 2024 11/07/2021, 12/04/2020, 11/13/2020 Dental X-Ray: Bitewings 02/03/2024 02/02/20 23, 12/02/2021, 12/16/2020, Additional history exists RSV Patients and Patients Aged 60 years or older (1 - 1-dose 75+ series) 2024 DTaP/Tdap/Td Vaccines (2 - Td or Tdap) 11/10/2033 11/11/2023 Influenza Vaccine Completed 02/23/2024, , 03/23/2022, Additional history exists HIB Vaccines Aged Out No longer eligi ble based on patient's age to complete this topic HPV Vaccines Aged Out No longer eligi ble based on patient's age to complete this topic Hepatitis A Vaccines Aged Out No long er eligible based on patient's age to complete this topic Hepatitis B Vaccines Aged Out No long er eligible based on patient's age to complete this topic IPV Vaccines Aged Out No longer eligi ble based on patient's age to complete this topic Meningococcal Vaccine Aged Out No dann reji eligible based on patient's age to complete this topic RSV under 20 months Aged Out No longe r eligible based on patient's age to complete this topic Rotavirus Vaccines Aged Out No longer eligible based on patient's age to complete this topic Procedures Procedure Name Priority Date/Time Associated Diagnosis Comments PROPHYLAXIS - ADULT Routine 02/01/2023 1 2:00 PM EDT BITEWINGS - 4 RADIOGRAPHIC IMAGES Routine 02/01/2023 12:00 PM EDT PERIODIC ORAL EVALUATION - ESTABLISHED PATIENT Routine 02/01/2023 12:00 PM EDT INTRAORAL - COMPLETE SERIES OF RADIOGRAPHIC IMAGES Routine 05/09/2018 12:00 AM EST from Last 3 Months or Most Recently Relevant to Health Maintenance Insurance DENTAL - [place] PARTIAL (MEDICAID)
--- OUTSIDE RECORDS SUMMARY | 2024-09-30 11:21 | XMS_ITS | Encounter Summary ---
Author Organization [employer] Address [address] [facility] [address] [place] [address] Care Team Providers Care Middle [employer] Football Coach Name Role Phone Unavailable Primary Care Provider Unavailabl e Encounter Details Date Type Department Care Team (Latest Contact Info) Description 06/14/2019 Abstract [facility] CONVERSIONS Dental, Provider, DDS Social [...]
--- OUTSIDE RECORDS SUMMARY | 2024-09-30 11:22 | XMS_ITS | Encounter Summary ---
Author Organization [employer] Address [address] [facility] [address] [place] [address] Care Team Providers Care Rollway Man Name Role Phone Unavailable Primary Care Provider Unavailabl e Encounter Details Date Type Department Care Team (Late st Contact Info) Description 07/30/2024 [facility] [address] [place] [address] Chaparrita Starr Social History Tobacco Use Types Packs/Day Years [...]
--- OUTSIDE RECORDS SUMMARY | 2024-09-30 11:22 | XMS_ITS | Referral Summary ---
Author Organization [facility] Address [address] [place] [address] Care Team Providers Care Paleontological Helper Name Role Phone Scott Quiroz Primary Care Provider [phone] Encounters * This document contains information received from the source organization and may not represent a complete record from that organization. Date Type Department Care Team Description 08/21/2024 9:38 AM EDT Anesthesia Event [facility] [address] [place] [address] Bekah Elam MD 08/19/2024 7:31 AM EDT Anesthesia Event [facility] [address] [place] [address] Riya Samano MD 08/16/2024 7:37 AM EDT Anesthesia Event [facility] [address] [place] [address] Nadeem Watkins MD 08/14/2024 8:29 AM EDT Anesthesia Event [facility] [address] [place] [address] Jhon Serna MD Banks, Joseph A., CRNA 08/12/2024 7:46 AM EDT Anesthesia Event [facility] [address] [place] [address] Marysol Michael MD 08/09/2024 9:29 AM EDT Anesthesia Event [facility] [address] [place] [address] Frankie Lugo MD 08/07/2024 9:36 AM EDT Anesthesia Event [facility] [address] [place] [address] Génesis Boss MD 08/05/2024 7:46 AM EDT Anesthesia Event [facility] [address] [place] [id number] Haseeb Delgado MD PhD 08/02/2024 7:49 AM EDT Anesthesia Event [facility] [address] [place] [address] Yoel Waddell MD Gabriel, Shylanda, [facility] 07/31/2024 9:29 AM EDT Anesthesia Event [facility] [address] [place] [address] Yoel Waddell MD 2024 7:29 AM EDT Anesthesia Event [facility] [address] [place] [address] Haseeb Paz DO 07/26/2024 8:46 AM EST Anesthesia Event [facility] [address] [place] [address] Génesis Boss MD 07/24/2024 8:52 AM EST Anesthesia Event [facility] [address] [place] [address] Daphne Morrison MD Torri, Andrea, MD from Last 3 Months Allergies Active Allergy Reactions Criticality Noted Date [...] days. 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 * (ABNORMAL) CBC Auto Differential (09/20/2024 9:37 AM EDT) Only the most recent of2 resultswithin the time period is included. WBC 7.3 3.8 - 10.8 10*3/uL 09/20/2024 10:06 AM EDT [facility] RBC 3.73(L) 3.80 - 5.80 10*6/uL 09/20/2024 10:06 AM EDT [facility] Hemoglobin 11.3(L) 13.2 - 17.1 g/dL 09/20/2024 10:06 AM EDT [facility] Hematocrit 35.7 35.0 - 50.0 % 09/20/2024 10:06 AM EDT [facility] MCV 95.7 80.0 - 100.0 fL 09/20/2024 10:06 AM EDT [facility] MCH 30.3 27.0 - 33.0 pg 09/20/2024 10:06 AM EDT [facility] MCHC 31.7(L) 32.0 - 36.0 g/dL 09/20/2024 10:06 AM EDT [facility] RDW 13.2 11.0 - 15.0 % 09/20/2024 10:06 AM EDT [facility] Platelets 385 140 - 400 10*3/uL 09/20/2024 10:06 AM EDT [facility] MPV 10.6 7.5 - 12.5 fL 09/20/2024 10:06 AM EDT [facility] Neutrophil % 66.9 % 09/20/2024 10:06 AM EDT [facility] Immature Grans % 1.0(H) 0.0 - 0.9 % 09/20/2024 10:06 AM EDT [facility] Lymphocyte % 15.5 % 09/20/2024 10:06 AM EDT [facility] Monocyte % 15.0 % 09/20/2024 10:06 AM EDT [facility] Eosinophil % 1.2 % 09/20/2024 10:06 AM EDT [facility] Basophil % 0.4 % 09/20/2024 10:06 AM EDT [facility] Neutrophil # 4.86 1.50 - 7.80 10*3/uL 09/20/2024 10:06 AM EDT [facility] Immature Grans # 0.07(H) <=0.03 10*3/uL 09/20/2024 10:06 AM EDT [facility] Lymphocyte # 1.10 0.85 - 3.90 10*3/uL 09/20/2024 10:06 AM EDT [facility] Monocyte # 1.10(H) 0.20 - 0.95 10*3/uL 09/20/2024 10:06 AM EDT [facility] Eosinophil # 0.10 0.02 - 0.50 10*3/uL 09/20/2024 10:06 AM EDT [facility] Basophil # <0.03 0.00 - 0.20 10*3/uL 09/20/2024 10:06 AM EDT [facility] nRBC % 0.0 /100 WBCs 09/20/2024 10:06 AM EDT [facility] nRBC # <0.01 <0.01 10*3/uL 09/20/2024 10:06 AM EDT [facility] Blood Structure of peripheral vein / Unknown Venipuncture / Unknown 09/20/2024 9:37 AM EDT 09/20/2024 9:55 AM EDT us Pattie Monsivais VACCINE CUSTOMER REPRESENTATIVE LAB BLOOD ORDERABLES Final Result [facility] [address] [place] [address], * (ABNORMAL) Basic metabolic panel (09/20/2024 9:37 AM EDT) NA 142 135 - 145 mmol/L 09/20/2024 10:36 AM EDT [facility] K 3.9 3.5 - 5.3 mmol/L 09/20/2024 10:36 AM EDT [facility] Cl 107 98 - 107 mmol/L 09/20/2024 10:36 AM EDT [facility] CO2 22 22 - 32 mmol/L 09/20/2024 10:36 AM EDT [facility] BUN 9 7 - 23 mg/dL 09/20/2024 10:36 AM EDT [facility] Creatinine 0.85 0.50 - 1.30 mg/dL 09/20/2024 10:36 AM EDT [facility] Glucose 127(H) 65 - 99 mg/dL 09/20/2024 10:36 AM EDT [facility] Calcium 9.2 8.6 - 10.5 mg/dL 09/20/2024 10:36 AM EDT [facility] Anion Gap 13 5 - 15 09/20/2024 10:36 AM EDT [facility] eGFR >90 >=60 mL/min/1. 73m2 09/20/2024 10:36 AM EDT [facility] Comment:The estimated glomer ular [...] 09/20/2024 10:07 AM EDT us Pattie Monsivais VACCINE CUSTOMER REPRESENTATIVE LAB BLOOD ORDERABLES Final Result [facility] [address] [place] [address], * X-Ray Chest 2 Views (09/18/2024 2:21 [...] obtain the completed interpretation. ? Workstation ID: [id number] Narrative 09/18/2024 3:46 PM EDT COMPARISON: ??09/06/2024 FINDINGS AND Resulting Agency Comment [id number] Procedure Note Nadeem Mullen MD - 09/18/2024 [...] possible to obtain thecompleted interpretation. Workstation ID: [id number] us Raza Baird MD MPH IMG XR PROCEDURES Final Resul t * COVID-19, Flu A/B & RSV RNA PCR, Symptomatic (09/17/2024 9:19 PM EDT) Only the most recent of2 resultswithin the time period is included. Pathologist [facility] PCR, SARS CoV-2 RNA Not Detected Not Detected [facility] 09/17/2024 10:27 PM EDT [facility] Comment:A Not Detected (Nega [...] A RNA PCR Not Detected Not Detected [facility]EXP[facility] 09/17/2024 10:27 PM EDT [facility] Comment:Negative results do not preclude infection and should not be used as the sole basis for diagnosis, treatment or other patient management decisions. Negative results must be combined with clinical observations, patient history, and/or epidemiological information. Flu B RNA PCR Not Detected Not Detected [facility] 09/17/2024 10:27 PM EDT [facility] Comment:Negative results do not preclude infection and should not be used as the sole basis for diagnosis, treatment or other patient management decisions. Negative results must be combined with clinical observations, patient history, and/or epidemiological information. RSV RNA PCR Not Detected Not Detected [facility] 09/17/2024 10:27 PM EDT [facility] Comment:Negative results do not preclude infection and should not be used as the sole basis for diagnosis, treatment or other patient management decisions. Negative results must be combined with clinical observations, patient history, and/or epidemiological information. Swab (Nares) Non-Blood Collection / Unknown 09/17/2024 9:19 PM EDT 09/17/2024 9:27 PM EDT Narrative [facility] - 09/17/2024 10:27 PM EDT This test was developed, validated and its performance characteristics determined by [facility]. This test has not been cleared or approved by the U.S. Food and Drug Administration (FDA). FDA Policy for Diagnostic Tests for Coronavirus Disease-2019 during the Public Health Emergency issued August 05, 2019, is followed. us Raza Baird MD MPH LAB BODY FLUIDS AND STOOLS OR DERABLES Final Result [facility] [address] [place] [address], * ELECTROCONVULSIVE THERAPY (08/21/2024 9:53 AM EDT) Only the most recent of13 resultswithin the time period is included. Narrative Alicia Edward MD - 08/21/2024 9:53 AM EDT Alicia [...] questions. Alicia Edward MD 08/21/2024 9:53 AM us Pattie Monsivais NP BEHAVIORAL HEALTH ORDERABL ES Edited Result - Final * ECG 12 lead (08/21/2024 8:05 AM EDT) Only the most recent of3 resultswithin the time period is included. Ventricular Rate EKG 73 BPM MUSE EKG Atrial Rate 76 BPM MUSE EKG QRS Interval 70 ms MUSE EKG QT Interval 432 ms MUSE EKG QTC Interval 475 ms MUSE EKG R [place] 21 degrees MUSE EKG T Wave [place] 30 degrees MUSE EKG 08/21/2024 8:05 AM EDT 08/21/2024 12:37 PM EDT Impressions [facility]USE EKG - 08/21/2024 12:37 PM EDT NORMAL SINUS RHYTHM WITH PREMATURE ATRIAL COMPLEXES ABNORMAL ECG WHEN COMPARED WITH ECG OF 21-AUG-2024 08:04, (UNCONFIRMED) NO SIGNIFICANT CHANGE WAS FOUND Confirmed by Hugo Wooten ([id number]) on 08/21/2024 12:37:26 PM us Raza Baird [...] - 3.890 uIU/mL 07/19/2024 8:16 AM EST [facility] Blood Structure of peripheral vein / Unknown Venipuncture / Unknown 07/19/2024 6:46 AM EST 07/19/2024 6:56 AM EST Raza Baird MD MPH LAB BLOOD ORDERABLES Final Re sult Performing Organization Address City/[facility]/ZIP Co de Phone Number [facility] [address] [place] [address], * (ABNORMAL) Hemoglobin A1c (07/19/2024 6:46 AM EST) Hemoglobin A1C 6.0(H) <5.7 % of total Hgb 07/19/2024 11:08 AM EST [facility] Comment: For someone without known diabetes, a [...] (MG/DL) 126 mg/dL 07/19/2024 11:08 AM EST [facility] eAG (MMOL/L) 7.0 mmol/L 07/19/2024 11:08 AM EST [facility] Blood Structure of peripheral vein / Unknown Venipuncture / Unknown 07/19/2024 6:46 AM EST 07/19/2024 6:56 AM EST Narrative [facility] - 07/19/2024 11:08 AM EST [facility] Received Date: us Raza Baird MD MPH LAB BLOOD ORDERABLES Final Re sult [facility] [address] [facility] 3[address] Floor, [place] [address], [place] [phone] [facility] [address], [place] [address], [place] [phone] * (ABNORMAL) Folate (07/19/2024 6:46 AM EST) Folate 28.9(H) 4.8 - 24.2 ng/mL 07/19/2024 8:32 AM EST [facility] Blood Structure of peripheral vein / Unknown Venipuncture / Unknown 07/19/2024 6:46 AM EST 07/19/2024 6:56 AM EST Raza Baird MD MPH LAB BLOOD ORDERABLES Final Re sult Performing Organization Address [facility]/ZIP Co de Phone Number [facility] [address] [place] [address], * Vitamin B12 (07/19/2024 6:46 AM EST) Vitamin B12 598 232 - 1,245 pg/mL 07/19/2024 8:16 AM EST [facility] Blood Structure of peripheral vein / Unknown Venipuncture / Unknown 07/19/2024 6:46 AM EST 07/19/2024 6:56 AM EST Raza Baird MD MPH LAB BLOOD ORDERABLES Final Re sult Performing Organization Address [facility] Co de Phone Number [facility] [address] [place] [address] * (ABNORMAL) Lipid panel - Fasting (07/19/2024 6:46 AM EST) Cholesterol 249(H) <=199 mg/dL 07/19/2024 7:47 AM EST [facility] Triglycerides 234(H) <=149 mg/dL 07/19/2024 7:47 AM EST [facility] Cholesterol, HDL 59 40 - 59 mg/dL 07/19/2024 7:47 AM EST [facility] Cholesterol, Non-HDL 190 mg/dL 07/19/2024 7:47 AM EST [facility] LDL Cholesterol 143(H) <100 mg/dL 07/19/2024 7:47 AM EST [facility] VLDL 46.8 mg/dL 07/19/2024 7:47 AM EST [facility] Cholesterol/HDL Ratio 4.2 <5.0 07/19/2024 7:47 AM EST [facility] Blood Structure of peripheral vein / Unknown Venipuncture / Unknown 07/19/2024 6:46 AM EST 07/19/2024 6:56 AM EST Narrative [facility] - 07/19/2024 7:47 AM EST Adult Treatment Panel III Guidelines of NCEP 2001 ? Category: ? Total Cholesterol (mg/dL) ?Desirable [...] [facility] [address] [place] [address], * (ABNORMAL) Comprehensive metabolic panel (07/19/2024 6:46 [...] - 99 mg/dL 07/19/2024 7:47 AM EST [facility] Creatinine 0.80 0.60 - 1.30 mg/dL 07/19/2024 7:47 AM EST [facility] Calcium 9.5 8.6 - 10.5 mg/dL 07/19/2024 7:47 AM EST [facility] Total Protein 6.2 6.0 - 8.0 g/dL 07/19/2024 7:47 AM EST [facility] Albumin 3.8 3.5 - 5.2 g/dL 07/19/2024 7:47 AM EST [facility] Bilirubin, Total 0.3 0.2 - 1.2 mg/dL 07/19/2024 7:47 AM EST [facility] Alkaline Phosphatase 100 35 - 129 U/L 07/19/2024 7:47 AM EST [facility] AST 21 10 - 40 U/L 07/19/2024 7:47 AM EST [facility] ALT 15 10 - 40 U/L 07/19/2024 7:47 AM EST [facility] BUN 10 7 - 23 mg/dL 07/19/2024 7:47 AM EST [facility] eGFR >90 >=60 mL/min/1. 73m2 07/19/2024 7:47 AM EST [facility] Comment:The estimated glomer ular [...] - 4.2 g/dL 07/19/2024 7:47 AM EST [facility] A/G Ratio 1.6 1.5 - 3.0 07/19/2024 7:47 AM [facility] Blood Structure of peripheral vein / Unknown Venipuncture / Unknown 07/19/2024 6:46 AM EST 07/19/2024 6:56 AM EST us Raza Baird MD MPH LAB BLOOD ORDERABLES Final [facility] Organization Address City/State/ZIP Co de Phone Number [facility] [address] [place] [address], [place] * NEURODIAGNOSTIC - SCANNED (07/18/2024) us [...] Documents on File Type Date Recorded Patient Diversional Therapist Expl anation Health Care Proxy 09/25/2024 10:19 PM Check list * Full Code (Latest Code Status on File) Date Activated Date Inactivated Comments 07/18/2024 7:29 PM 09/25/2024 4:27 PM Healthcare Agents on File Name Relationship Healthcare Agent Relationshi p Communication Jony S Friend Health Care Agent Care Teams Paleontological Helper Relationship Specialty Start Date End Date Scott Quiroz [address] [place] [id number] PCP - General Internal Medicine 08/20/24
--- OUTSIDE RECORDS SUMMARY | 2024-09-30 11:22 | XMS_ITS | Encounter Summary ---
Author Organization [employer] Address [address] [facility] [address] [place] [address] Care Team Providers Care Analytical Data Miner Name Role Phone Unavailable Primary Care Provider Unavailabl e Encounter Details Date Type Department Care Team (Latest Contact Info) Description 11/14/2018 Abstract [facility] CONVERSIONS Dental, Provider, DDS Social [...]
[2024-09-30 11:33] LABS: MANUAL DIFF FLAG NO
[2024-09-30 11:35] LABS: Hematocrit 36.1 % (42.0-52.0); Hemoglobin 12.0 g/dl (14.0-18.0); Imm Gran Abs Auto 0.04 X10*3/uL (0.00-0.03); Imm Gran Pct Auto 0.5 % (0.0-0.4); Lymphocytes Absolute Auto 1.0 X10*3/uL (1.2-4.9); Mean Corpuscular HGB Conc 33.2 g/dl (31.0-36.0); Mean Corpuscular Hemoglobin 30.9 pg (27.0-33.0); Mean Corpuscular Volume 93.0 fL (80.0-98.0); NRBC Abs Auto 0.000 X10*3/uL (0.0-0.012); NRBC Pct Auto 0.0 /100WBC (0.0-0.2); Platelet Count 328 X10*3/uL (160-400); Red Blood Count 3.88 X10*6/uL (4.60-5.80); White Blood Count 8.1 X10*3/uL (4.8-10.8)
[2024-09-30 11:54] LABS: Alanine Aminotransferase 7 U/L (0-40); Albumin Level 3.7 g/dL (3.5-5.0); Anion Gap 16 (12-20); Aspartate Amino Transferase 18 U/L (5-37); Blood Urea Nitrogen 9 mg/dL (9-16); Calcium 9.4 mg/dL (8.4-10.2); Carbon Dioxide 22 mmol/L (22-29); Chloride 108 mmol/L (96-108); Creatinine Clr Calc Pharmacy 69.4; Estimated Glomerular Filt Rate > 60; Magnesium 2.0 mg/dL (1.6-2.6); Potassium 4.2 mmol/L (3.3-5.1); Sodium 142 mmol/L (135-145); Total Protein 6.3 g/dL (6.5-8.0)
[2024-09-30 12:23] LABS: Alkaline Phosphatase 121 U/L (39-117)
[2024-09-30 12:48] LABS: Appearance Urine Clear; Glucose Urine UA Negative (Negative); PH >= 9.0 (5.0-9.0); Specific Gravity - Urine <= 1.005 (1.005-1.025)
[2024-09-30 12:59] LABS: Cannabinoid Screen Urine Not Detected (Not Detect)
--- NOTE | 2024-09-30 14:57 | ECG_ITS ---
Test Reason : MED CLEARANCE Blood Pressure : */* mmHG Vent. Rate : 74 BPM Atrial Rate : 74 BPM P-R Int : 142 ms QRS Dur : 74 ms QT Int : 422 ms P-R-T Axes : 2 1 62 degrees QTcB Int : 468 ms Sinus rhythm Nonspecific ST and T wave abnormality When compared with ECG of 27-May-2024 10:19, QT has lengthened Referred By: Doreen Lilly Electronically Signed By: HENRI JENNINGS MD
[2024-09-30 16:00] VITALS: BP 99/52; PULSE 71; RESP 16; TEMP 36.3; O2SAT 94
--- NOTE | 2024-09-30 16:42 | PC.NURSE ---
Spoke to pharmacy and was informed Simona to come down and verify medication with pt.
--- NOTE | 2024-09-30 17:02 | PC.NURSE ---
Spoke to pharmacy rep at bedside, whom verified med list with pt. Informed ASHLEY Logan of this information.
--- NOTE | 2024-09-30 17:18 | PHA.MEDREC ---
Addendum entered by Inessa Burciaga RPh 09/30/24 17:34: [facility] REVIEWED Original Note: Pharmacy Consult ? Medication Reconciliation Pharmacy has completed the medication reconciliation. Spoke to patient to confirm med list. Patient states that we have a list of his medication from [facility]. Patient was Just discharged from from psych unit at [facility] where he was for 3 months. Called [facility] pharmacy and they confirmed Buspirone 20 mg TID, Vitamin D3 50 mcg, Clonazepam 0.5 mg BId and 0.25 mg daily prn anxiety, Trintellix 20 mg daily and Zolpidem 5 mg at bedtime prn. Patient states he is not taking Vitamin D3 50 mcg.
[2024-09-30 20:34] VITALS: BP 124/58; PULSE 80; RESP 16; TEMP 36.3; O2SAT 97
[2024-09-30 22:00] VITALS: BP 108/54; PULSE 65; RESP 16; O2SAT 94
[2024-10-01 00:15] VITALS: BP 103/59; PULSE 62; RESP 16; TEMP 36.9; O2SAT 94
--- NOTE | 2024-10-01 00:22 | MHC.EDTECH ---
This pct assumed care of Patient at 2300 ,vitals taken ,Pt resting quietly with eyes closed ,Patient was reposition and boosted up in bed ,yellow sock given .snack offer ,Pt refused 1 :1 Patient Observer at bedside .
--- NOTE | 2024-10-01 00:28 | PC.NURSE ---
assumed care for this pt at 2300. pt alert and oriented resting in stretcher. pt denying any pain at this time but complaining of feeling anxious and unable to rest due to noise. medicated pt per jul, pt states medication has been effective. VSS per EDT. boosted pt in bed, pt now resting quietly in no notable distress. plan of care ongoing
[2024-10-01 06:00] VITALS: BP 121/72; PULSE 96; RESP 17; TEMP 36.9; O2SAT 93
--- NOTE | 2024-10-01 14:27 | PC.NURSE ---
Pt will be transitioning to S1. Spoke with MARIIA Jorgensen--RN to RN report given.
[2024-10-01 14:49] VITALS: BMI 20.5
[2024-10-01 14:50] VITALS: BP 118/57; PULSE 107; RESP 16; TEMP 36.8; O2SAT 97
--- NOTE | 2024-10-01 16:35 | PC.NURSE ---
Addendum entered by Jameel Urbina RN 10/01/24 16:46: Pt arrived to unit 1442. pt is a CV. Came to hospital d/t SI thoughts w/ a plan to place shower head in mouth and drown himself. Pt came from home, stated he still is suicidal and still has plan. pt flat, answered questions appropriately. Original Note: ED RN contacted and report was received. Security with RN transporting pt to S1. Admission paperwork completed and belongings inspected and secured. Pt stated he does not want any belongings. Pt was oriented to the unit and to pt's bedroom.
[2024-10-01 20:00] VITALS: BP 119/86; PULSE 84; RESP 18; TEMP 36.1; O2SAT 94
[2024-10-02 08:00] VITALS: BP 126/75; PULSE 101; RESP 18; TEMP 36.5; O2SAT 96
[2024-10-02 08:18] LABS: Hemoglobin A1C 116.7203 umol/L; Total Hemoglobin (HGBA1C) 2844.2140 umol/L
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
[2024-10-02 08:27] LABS: Alanine Aminotransferase 6 U/L (0-40); Albumin Level 3.4 g/dL (3.5-5.0); Alkaline Phosphatase 108 U/L (39-117); Anion Gap 14 (12-20); Aspartate Amino Transferase 18 U/L (5-37); Blood Urea Nitrogen 11 mg/dL (9-16); Calcium 8.5 mg/dL (8.4-10.2); Carbon Dioxide 22 mmol/L (22-29); Chloride 111 mmol/L (96-108); Cholesterol 175 mg/dL (<200); Creatinine Clr Calc Pharmacy 65.8; Estimated Glomerular Filt Rate > 60; HDL Cholesterol 34 mg/dL (>40); Potassium 3.7 mmol/L (3.3-5.1); Sodium 143 mmol/L (135-145); Total Protein 5.8 g/dL (6.5-8.0); Triglycerides 176 mg/dL (<150)
[2024-10-02 08:53] LABS: Folate 11.9 ng/mL (> or = 4.0); Vitamin B12 492 pg/mL (200-900)
[2024-10-02 09:15] LABS: Thyroid Stimulating Hormone 0.57 uIU/mL (0.32-4.0)
[2024-10-02 20:00] VITALS: BP 108/54; PULSE 66; RESP 18; TEMP 36.3; O2SAT 94
[2024-10-03 08:00] VITALS: BP 136/65; PULSE 88; RESP 18; TEMP 36.8; O2SAT 95
--- NOTE | 2024-10-03 15:12 | P.PNPSI_ITS ---
Subjective Subjective Date of Service: 10/03/24 Reason For Visit: si Interim History: appears anxious, c/o anxiety. observed receiving klonopin 0.5 mg from RN. no complaints other than anxiety. Mental Status Exam Mental Status Exam Narrative: Appearance: casually groomed, fair hygiene, appears quite anxious Behavior:cooperative. psychomotor:no agitation or retardation noted Speech:clear, normal rate/rhythm/volume, spontaneous Thought process:linear Thought content:no signs of psychosis, anxious Mood: very anxious Affect: constricted, hyper-intense, non-labile SI: none expressed HI:none expressed VH/AH:none expressed Delusions:none expressed Insight/judgment:fair x 2. Memory/cog: alert, oriented x3. Diagnostics Vital Signs (24Hr): Vital Signs - 24 hr 10/02/24 20:00 10/03/24 08:00 Temperature 97.4 F 98.2 F Pulse Rate 66 88 Respiratory Rate 18 18 Blood Pressure 108/54 L 136/65 Pulse Oximetry 94 95 Oxygen Delivery Method Room Air Room Air BMI result Body Mass Index 20.5 Labs 09/30/24 11:30 10/02/24 07:23 Labs: Laboratory Results - last 48 hr 10/02/24 07:23 Sodium 143 Potassium 3.7 Chloride 111 H Carbon Dioxide 22 Anion Gap 14 BUN 11 Creatinine 0.72 Estim Creat Clear Calc 65.8 Estimated GFR > 60 Random Glucose 93 Estimat Average Glucose 123 Hemoglobin A1c % 5.9 Calcium 8.5 D Total Bilirubin 0.3 AST 18 ALT 6 Alkaline Phosphatase 108 Total Protein 5.8 L Albumin 3.4 L Triglycerides 176 H Cholesterol 175 LDL Cholesterol, Calc 106 H HDL Cholesterol 34 L Vitamin B12 492 Folate 11.9 TSH 0.57 Medications Medications Current Medications Acetaminophen (Acetaminophen 325 Mg Tablet) 650 mg PO Q6H PRN PRN Reason: Headache/Pain, Scale 1-10 Al Hydroxide/Mg Hydroxide (Magnesium Hydrox/Alum Hydrox 30 Ml Oral.Susp) 30 ml PO Q6H PRN PRN Reason: Heartburn/Nausea Buspirone HCl (Buspirone Hcl 10 Mg Tablet) 20 mg PO TID [facility] Last Admin: 10/03/24 09:35 Dose: 20 mg Clonazepam (Clonazepam 0.5 Mg Tablet) 0.5 mg PO BID [facility] Last Admin: 10/03/24 09:35 Dose: 0.5 mg Clonazepam (Clonazepam 0.5 Mg Tablet) 0.5 mg PO DAILY PRN PRN Reason: Anxiety Last Admin: 10/03/24 12:58 Dose: 0.5 mg Hydroxyzine HCl (Hydroxyzine Hcl 25 Mg Tablet) 25 mg PO Q6H PRN PRN Reason: mild anxiety Magnesium Hydroxide (Milk Of Magnesia 30 Ml Oral.Susp) 30 ml PO DAILY PRN PRN Reason: Constipation Trazodone HCl (Trazodone Hcl 50 Mg Tablet) 50 mg PO BEDTIME MRX1 PRN PRN Reason: Insomnia Vortioxetine (Vortioxetine Hydrobromide 20 Mg Tablet) 20 mg PO DAILY SAL Last Admin: 10/03/24 09:35 Dose: 20 mg Zolpidem Tartrate (Zolpidem Tartrate 5 Mg Tablet) 5 mg PO BEDTIME PRN PRN Reason: Sleep Last Admin: 10/02/24 20:43 Dose: 5 mg Allergies Allergies Allergy/AdvReac Type Severity Reaction Status Date / Time ciprofloxacin [From CIPRO] Allergy Unknown DIARRHEA Verified 09/30/24 10:57 Morpholine Analogues Allergy Unknown Unknown Verified 09/30/24 10:57 amoxicillin Allergy Nausea Verified 09/30/24 10:57 meperidine Allergy Unknown Verified 09/30/24 10:57 pollen extracts Allergy Unknown Verified 09/30/24 10:57 Assessment & Plan Assessment & Plan (1) Personality disorder: Status: Acute Code(s): F60.9 - Personality disorder, unspecified (2) Depression, major, severe recurrence: Status: Acute Code(s): F33.2 - Major depressive disorder, recurrent severe without psychotic features (3) Generalized anxiety disorder with panic attacks: Status: Acute Code(s): F41.1 - Generalized anxiety disorder; F41.0 - Panic disorder [episodic paroxysmal anxiety] Plan Mr. Smith is a 74 year-old trans female to male who self presented to [facility] reporting increased depression, suicidal ideation with plan to drown self in bathtub. He reports feelings of abandonment, helplessness, hopelessness, needing care from other. He reports this is in setting of his psychotherapist retiring in April. Unclear if this is the case. He also reports he was at [facility] for last 3 months. Will obtain records from [facility]. Pt signed NADYA. We discussed risks, benefits and alternative treatment options. continue current medications. PLAN 1. Admit to S1, CV, 15 minutes checks for safety 2. continue current medications- trintellix 20mg po daily, buspar 20mg po TID, clonazepam 0.5mg po BID, ambien prn for sleep. 3. obtain collateral information 5. after care plan- consider DBT programming. 10/03: very anxious. continue current regimen for now. Reason for continued inpatient stay Substantial Risk for: harm to self and inability to function Time Spent With Patient Time: Total time managing care of this patient today ____ minutes.
[2024-10-03 20:00] VITALS: BP 114/65; PULSE 71; RESP 16; TEMP 36.6; O2SAT 94
[2024-10-04 08:10] VITALS: BP 120/73; PULSE 88; RESP 16; TEMP 37; O2SAT 96
--- NOTE | 2024-10-04 14:44 | HO.PSYCHPN ---
Subjective Subjective Date of Service: 10/04/24 Reason For Visit: si Interim History: anxious. asking for hydroxyzine. per staff, slept 8 hours. dep 6 anx 9. Mental Status Exam Mental Status Exam Narrative: Appearance: casually groomed, fair hygiene, appears quite anxious Behavior:cooperative. psychomotor:no agitation or retardation noted Speech:clear, normal rate/rhythm/volume, spontaneous Thought process:linear Thought content:no signs of psychosis, anxious Mood: very anxious Affect: constricted, hyper-intense, non-labile SI: none expressed HI:none expressed VH/AH:none expressed Delusions:none expressed Insight/judgment:fair x 2. Memory/cog: alert, oriented x3. Diagnostics Vital Signs (24Hr): Vital Signs - 24 hr 10/03/24 20:00 10/04/24 08:10 Temperature 97.9 F 98.6 F Pulse Rate 71 88 Respiratory Rate 16 16 Blood Pressure 114/65 120/73 Pulse Oximetry 94 96 Oxygen Delivery Method Room Air Room Air BMI result Body Mass Index 20.5 Labs 09/30/24 11:30 10/02/24 07:23 Medications Medications Current Medications Acetaminophen (Acetaminophen 325 Mg Tablet) 650 mg PO Q6H PRN PRN Reason: Headache/Pain, Scale 1-10 Al Hydroxide/Mg Hydroxide (Magnesium Hydrox/Alum Hydrox 30 Ml Oral.Susp) 30 ml PO Q6H PRN PRN Reason: Heartburn/Nausea Buspirone HCl (Buspirone Hcl 10 Mg Tablet) 20 mg PO TID [facility] Last Admin: 10/04/24 08:12 Dose: 20 mg Clonazepam (Clonazepam 0.5 Mg Tablet) 0.5 mg PO BID [facility] Last Admin: 10/04/24 08:13 Dose: 0.5 mg Clonazepam (Clonazepam 0.5 Mg Tablet) 0.5 mg PO DAILY PRN PRN Reason: Anxiety Last Admin: 10/03/24 12:58 Dose: 0.5 mg Hydroxyzine HCl (Hydroxyzine Hcl 25 Mg Tablet) 25 mg PO Q4H PRN PRN Reason: mild anxiety Last Admin: 10/04/24 12:35 Dose: 25 mg Magnesium Hydroxide (Milk Of Magnesia 30 Ml Oral.Susp) 30 ml PO DAILY PRN PRN Reason: Constipation Trazodone HCl (Trazodone Hcl 50 Mg Tablet) 50 mg PO BEDTIME MRX1 PRN PRN Reason: Insomnia Vortioxetine (Vortioxetine Hydrobromide 20 Mg Tablet) 20 mg PO DAILY SAL Last Admin: 10/04/24 08:13 Dose: 20 mg Zolpidem Tartrate (Zolpidem Tartrate 5 Mg Tablet) 5 mg PO BEDTIME PRN PRN Reason: Sleep Last Admin: 10/03/24 20:41 Dose: 5 mg Allergies Allergies Allergy/AdvReac Type Severity Reaction Status Date / Time ciprofloxacin [From CIPRO] Allergy Unknown DIARRHEA Verified 09/30/24 10:57 Morpholine Analogues Allergy Unknown Unknown Verified 09/30/24 10:57 amoxicillin Allergy Nausea Verified 09/30/24 10:57 meperidine Allergy Unknown Verified 09/30/24 10:57 pollen extracts Allergy Unknown Verified 09/30/24 10:57 Assessment & Plan Assessment & Plan (1) Personality disorder: Status: Acute Code(s): F60.9 - Personality disorder, unspecified (2) Depression, major, severe recurrence: Status: Acute Code(s): F33.2 - Major depressive disorder, recurrent severe without psychotic features (3) Generalized anxiety disorder with panic attacks: Status: Acute Code(s): F41.1 - Generalized anxiety disorder; F41.0 - Panic disorder [episodic paroxysmal anxiety] Plan Mr. Smith is a 74 year-old trans female to male who self presented to [facility] reporting increased depression, suicidal ideation with plan to drown self in bathtub. He reports feelings of abandonment, helplessness, hopelessness, needing care from other. He reports this is in setting of his psychotherapist retiring in April. Unclear if this is the case. He also reports he was at [facility] for last 3 months. Will obtain records from [facility]. Pt signed NADYA. We discussed risks, benefits and alternative treatment options. continue current medications. PLAN 1. Admit to S1, CV, 15 minutes checks for safety 2. continue current medications- trintellix 20mg po daily, buspar 20mg po TID, clonazepam 0.5mg po BID, ambien prn for sleep. 3. obtain collateral information 5. after care plan- consider DBT programming. 10/03: very anxious. continue current regimen for now. 10/04: no change in presentation or plan. Reason for continued inpatient stay Substantial Risk for: harm to self and inability to function Time Spent With Patient Time: Total time managing care of this patient today ____ minutes.
[2024-10-04 20:00] VITALS: BP 108/51; PULSE 71; RESP 17; TEMP 36.6; O2SAT 98
[2024-10-05 08:00] VITALS: BP 113/62; PULSE 84; RESP 18; TEMP 36.2; O2SAT 95
--- NOTE | 2024-10-05 16:29 | P.PNPSI_ITS ---
Subjective Subjective Date of Service: 10/05/24 Reason For Visit: si Interim History: met with patient; discussed with team Vitals WNL Patient says hanging in there working on deal with anxiety; does not want p.r.n. Mental Status Exam Mental Status Exam Narrative: Appearance: casually groomed, fair hygiene, appears quite anxious Behavior:cooperative. psychomotor:no agitation or retardation noted Speech:clear, normal rate/rhythm/volume, spontaneous Thought process:linear Thought content:no signs of psychosis, anxious Mood: hanging in there Affect: constricted, hyper-intense, non-labile SI: none expressed HI:none expressed VH/AH:none expressed Delusions:none expressed Insight/judgment:fair x 2. Memory/cog: alert, oriented x3. Diagnostics Vital Signs (24Hr): Vital Signs - 24 hr 10/04/24 20:00 10/05/24 08:00 Temperature 97.9 F 97.2 F Pulse Rate 71 84 Respiratory Rate 17 18 Blood Pressure 108/51 L 113/62 Pulse Oximetry 98 95 Oxygen Delivery Method Room Air Room Air BMI result Body Mass Index 20.5 Labs 10/18/24 07:58 10/18/24 07:58 Medications Medications Current Medications Acetaminophen (Acetaminophen 325 Mg Tablet) 650 mg PO Q6H PRN PRN Reason: Headache/Pain, Scale 1-10 Al Hydroxide/Mg Hydroxide (Magnesium Hydrox/Alum Hydrox 30 Ml Oral.Susp) 30 ml PO Q6H PRN PRN Reason: Heartburn/Nausea Buspirone HCl (Buspirone Hcl 10 Mg Tablet) 20 mg PO TID [facility] Last Admin: 10/05/24 15:15 Dose: 20 mg Clonazepam (Clonazepam 0.5 Mg Tablet) 0.5 mg PO BID [facility] Last Admin: 10/05/24 08:38 Dose: 0.5 mg Clonazepam (Clonazepam 0.5 Mg Tablet) 0.5 mg PO DAILY PRN PRN Reason: Anxiety Last Admin: 10/05/24 15:16 Dose: 0.5 mg Hydroxyzine HCl (Hydroxyzine Hcl 25 Mg Tablet) 25 mg PO Q4H PRN PRN Reason: mild anxiety Last Admin: 10/05/24 10:17 Dose: 25 mg Magnesium Hydroxide (Milk Of Magnesia 30 Ml Oral.Susp) 30 ml PO DAILY PRN PRN Reason: Constipation Trazodone HCl (Trazodone Hcl 50 Mg Tablet) 50 mg PO BEDTIME MRX1 PRN PRN Reason: Insomnia Vortioxetine (Vortioxetine Hydrobromide 20 Mg Tablet) 20 mg PO DAILY SAL Last Admin: 10/05/24 08:38 Dose: 20 mg Zolpidem Tartrate (Zolpidem Tartrate 5 Mg Tablet) 5 mg PO BEDTIME PRN PRN Reason: Sleep Last Admin: 10/04/24 20:50 Dose: 5 mg Allergies Allergies Allergy/AdvReac Type Severity Reaction Status Date / Time ciprofloxacin [From CIPRO] Allergy Unknown DIARRHEA Verified 09/30/24 10:57 Morpholine Analogues Allergy Unknown Unknown Verified 09/30/24 10:57 amoxicillin Allergy Nausea Verified 09/30/24 10:57 meperidine Allergy Unknown Verified 09/30/24 10:57 pollen extracts Allergy Unknown Verified 09/30/24 10:57 Assessment & Plan Assessment & Plan (1) Personality disorder: Status: Acute Code(s): F60.9 - Personality disorder, unspecified (2) Depression, major, severe recurrence: Status: Acute Code(s): F33.2 - Major depressive disorder, recurrent severe without psychotic features (3) Generalized anxiety disorder with panic attacks: Status: Acute Code(s): F41.1 - Generalized anxiety disorder; F41.0 - Panic disorder [episodic paroxysmal anxiety] Plan Mr. Smith is a 74 year-old trans female to male who self presented to [facility] ED reporting increased depression, suicidal ideation with plan to drown self in bathtub. He reports feelings of abandonment, helplessness, hopelessness, needing care from other. He reports this is in setting of his psychotherapist retiring in April. Unclear if this is the case. He also reports he was at [facility] for last 3 months. Will obtain records from [facility]. Pt signed NADYA. We discussed risks, benefits and alternative treatment options. continue current medications. PLAN 1. Admit to S1, CV, 15 minutes checks for safety 2. continue current medications- trintellix 20mg po daily, buspar 20mg po TID, clonazepam 0.5mg po BID, ambien prn for sleep. 3. obtain collateral information 5. after care plan- consider DBT programming. 10/03: very anxious. continue current regimen for now. 10/04: no change in presentation or plan. 10/05: Patient showered and ports he is extremely anxious about it however does not want any medication changes Patient educated on: diagnosis and medication risk/benefits Informed Consent: understands Reason for continued inpatient stay Substantial Risk for: rapid decompensation Time Spent With Patient Time: Total time managing care of this patient today ____ minutes.
[2024-10-05 19:54] VITALS: BP 121/60; PULSE 71; RESP 16; TEMP 36.8; O2SAT 93
[2024-10-06 08:00] VITALS: BP 117/64; PULSE 100; RESP 16; TEMP 36.6; O2SAT 95
[2024-10-06 20:00] VITALS: BP 138/69; PULSE 95; RESP 18; TEMP 36.7; O2SAT 95
--- NOTE | 2024-10-06 21:19 | P.PNPSI_ITS ---
Subjective Subjective Date of Service: 10/06/24 Reason For Visit: si Interim History: Met with patient; discussed with team Patient says deal with anxiety is rough says hydroxyzine helps. Discussed medications and patient amenable to trying Zyprexa Mental Status Exam Mental Status Exam Narrative: Appearance: , marginal hygiene, appears anxious Behavior:cooperative. psychomotor:no agitation or retardation noted Speech:clear, normal rate/rhythm/volume, spontaneous Thought process:linear Thought content:no signs of psychosis, anxious Mood: I feel anxious today Affect: constricted, hyper-intense, non-labile SI: none expressed HI: none expressed VH/AH: none expressed Delusions: none expressed Insight/judgment:fair x 2. Memory/cog: alert, oriented x3. Diagnostics Vital Signs (24Hr): Vital Signs - 24 hr 10/06/24 08:00 Temperature 97.9 F Pulse Rate 100 Respiratory Rate 16 Blood Pressure 117/64 Pulse Oximetry 95 Oxygen Delivery Method Room Air BMI result Body Mass Index 20.5 Labs 10/18/24 07:58 10/18/24 07:58 Medications Medications Current Medications Acetaminophen (Acetaminophen 325 Mg Tablet) 650 mg PO Q6H PRN PRN Reason: Headache/Pain, Scale 1-10 Al Hydroxide/Mg Hydroxide (Magnesium Hydrox/Alum Hydrox 30 Ml Oral.Susp) 30 ml PO Q6H PRN PRN Reason: Heartburn/Nausea Buspirone HCl (Buspirone Hcl 10 Mg Tablet) 20 mg PO TID [facility] Last Admin: 10/06/24 20:24 Dose: 20 mg Clonazepam (Clonazepam 0.5 Mg Tablet) 0.5 mg PO BID [facility] Last Admin: 10/06/24 20:24 Dose: 0.5 mg Clonazepam (Clonazepam 0.5 Mg Tablet) 0.5 mg PO DAILY PRN PRN Reason: Anxiety Last Admin: 10/05/24 15:16 Dose: 0.5 mg Hydroxyzine HCl (Hydroxyzine Hcl 25 Mg Tablet) 25 mg PO Q4H PRN PRN Reason: mild anxiety Last Admin: 10/06/24 12:23 Dose: 25 mg Magnesium Hydroxide (Milk Of Magnesia 30 Ml Oral.Susp) 30 ml PO DAILY PRN PRN Reason: Constipation Olanzapine (Olanzapine 2.5 Mg Tablet) 2.5 mg PO BID PRN PRN Reason: mod to severe anxiety Trazodone HCl (Trazodone Hcl 50 Mg Tablet) 50 mg PO BEDTIME MRX1 PRN PRN Reason: Insomnia Vortioxetine (Vortioxetine Hydrobromide 20 Mg Tablet) 20 mg PO DAILY SAL Last Admin: 10/06/24 09:29 Dose: 20 mg Zolpidem Tartrate (Zolpidem Tartrate 5 Mg Tablet) 5 mg PO BEDTIME PRN PRN Reason: Sleep Last Admin: 10/06/24 20:26 Dose: 5 mg Allergies Allergies Allergy/AdvReac Type Severity Reaction Status Date / Time ciprofloxacin [From CIPRO] Allergy Unknown DIARRHEA Verified 09/30/24 10:57 Morpholine Analogues Allergy Unknown Unknown Verified 09/30/24 10:57 amoxicillin Allergy Nausea Verified 09/30/24 10:57 meperidine Allergy Unknown Verified 09/30/24 10:57 pollen extracts Allergy Unknown Verified 09/30/24 10:57 Assessment & Plan Assessment & Plan (1) Personality disorder: Status: Acute Code(s): F60.9 - Personality disorder, unspecified (2) Depression, major, severe recurrence: Status: Acute Code(s): F33.2 - Major depressive disorder, recurrent severe without psychotic features (3) Generalized anxiety disorder with panic attacks: Status: Acute Code(s): F41.1 - Generalized anxiety disorder; F41.0 - Panic disorder [episodic paroxysmal anxiety] Plan Mr. Smith is a 74 year-old trans female to male who self presented to [facility] reporting increased depression, suicidal ideation with plan to drown self in bathtub. He reports feelings of abandonment, helplessness, hopelessness, needing care from other. He reports this is in setting of his psychotherapist retiring in April. Unclear if this is the case. He also reports he was at [facility] for last 3 months. Will obtain records from [facility]. Pt signed NADYA. We discussed risks, benefits and alternative treatment options. continue current medications. PLAN 1. Admit to S1, CV, 15 minutes checks for safety 2. continue current medications- trintellix 20mg po daily, buspar 20mg po TID, clonazepam 0.5mg po BID, ambien prn for sleep. 3. obtain collateral information 5. after care plan- consider DBT programming. 10/03: very anxious. continue current regimen for now. 10/04: no change in presentation or plan. 10/05: Patient showered and ports he is extremely anxious about it however does not want any medication changes 10/06 patient remains very anxious; discussed medications and reviewed risks/side effects of Zyprexa which patient agrees to try -Zyprexa 2.5 mg 1 time dose -will make Zyprexa 2.5 mg as a p.r.n. and if effective primary team provider can schedule Patient educated on: diagnosis and medication risk/benefits Informed Consent: understands Reason for continued inpatient stay Substantial Risk for: rapid decompensation Time Spent With Patient Time: Total time managing care of this patient today ____ minutes.
--- NOTE | 2024-10-07 08:58 | P.PNPSI_ITS ---
Subjective Subjective Date of Service: 10/07/24 Reason For Visit: si Subjective Notes: Conditional Voluntary Interim History: Pt slept most of the night. Pt reports he has panic attacks, intense anxious mood that lasts over 2 hrs. He reports he is not able to take shower as shower head is triggering. He reports he has thoughts of shoveling in shower head down his throat. He endorses feeling helpless, and hopeless. No plan to harm himself. He is mostly in bed, declines at times going to groups. Still waiting for records from [facility] after 3 months admission there. Mental Status Exam Mental Status Exam Narrative: Appearance: casually groomed, fair hygiene, appears quite anxious Behavior:cooperative. psychomotor:no agitation or retardation noted Speech:clear, normal rate/rhythm/volume, spontaneous Thought process:linear Thought content:no signs of psychosis, anxious Mood: very anxious Affect: constricted, hyper-intense, non-labile SI: none expressed HI:none expressed VH/AH:none expressed Delusions:none expressed Insight/judgment:fair x 2. Memory/cog: alert, oriented x3. Diagnostics Vital Signs (24Hr): Vital Signs - 24 hr 10/06/24 20:00 Temperature 98.1 F Pulse Rate 95 Respiratory Rate 18 Blood Pressure 138/69 Pulse Oximetry 95 Oxygen Delivery Method Room Air BMI result Body Mass Index 20.5 Labs 09/30/24 11:30 10/02/24 07:23 Medications Medications Current Medications Acetaminophen (Acetaminophen 325 Mg Tablet) 650 mg PO Q6H PRN PRN Reason: Headache/Pain, Scale 1-10 Al Hydroxide/Mg Hydroxide (Magnesium Hydrox/Alum Hydrox 30 Ml Oral.Susp) 30 ml PO Q6H PRN PRN Reason: Heartburn/Nausea Buspirone HCl (Buspirone Hcl 10 Mg Tablet) 20 mg PO TID [facility] Last Admin: 10/06/24 20:24 Dose: 20 mg Clonazepam (Clonazepam 0.5 Mg Tablet) 0.5 mg PO BID [facility] Last Admin: 10/06/24 20:24 Dose: 0.5 mg Clonazepam (Clonazepam 0.5 Mg Tablet) 0.5 mg PO DAILY PRN PRN Reason: Anxiety Last Admin: 10/05/24 15:16 Dose: 0.5 mg Hydroxyzine HCl (Hydroxyzine Hcl 25 Mg Tablet) 25 mg PO Q4H PRN PRN Reason: mild anxiety Last Admin: 10/06/24 12:23 Dose: 25 mg Magnesium Hydroxide (Milk Of Magnesia 30 Ml Oral.Susp) 30 ml PO DAILY PRN PRN Reason: Constipation Olanzapine (Olanzapine 2.5 Mg Tablet) 2.5 mg PO BID PRN PRN Reason: mod to severe anxiety Trazodone HCl (Trazodone Hcl 50 Mg Tablet) 50 mg PO BEDTIME MRX1 PRN PRN Reason: Insomnia Vortioxetine (Vortioxetine Hydrobromide 20 Mg Tablet) 20 mg PO DAILY [facility] Last Admin: 10/06/24 09:29 Dose: 20 mg Zolpidem Tartrate (Zolpidem Tartrate 5 Mg Tablet) 5 mg PO BEDTIME PRN PRN Reason: Sleep Last Admin: 10/06/24 20:26 Dose: 5 mg Allergies Allergies Allergy/AdvReac Type Severity Reaction Status Date / Time ciprofloxacin [From CIPRO] Allergy Unknown DIARRHEA Verified 09/30/24 10:57 Morpholine Analogues Allergy Unknown Unknown Verified 09/30/24 10:57 amoxicillin Allergy Nausea Verified 09/30/24 10:57 meperidine Allergy Unknown Verified 09/30/24 10:57 pollen extracts Allergy Unknown Verified 09/30/24 10:57 Assessment & Plan Assessment & Plan (1) Personality disorder: Status: Acute Code(s): F60.9 - Personality disorder, unspecified (2) Depression, major, severe recurrence: Status: Acute Code(s): F33.2 - Major depressive disorder, recurrent severe without psychotic features (3) Generalized anxiety disorder with panic attacks: Status: Acute Code(s): F41.1 - Generalized anxiety disorder; F41.0 - Panic disorder [episodic paroxysmal anxiety] Plan Mr. Smith is a 74 year-old trans female to male who self presented to [facility] reporting increased depression, suicidal ideation with plan to drown self in bathtub. He reports feelings of abandonment, helplessness, hopelessness, needing care from other. He reports this is in setting of his psychotherapist retiring in April. Unclear if this is the case. He also reports he was at [facility] for last 3 months. Will obtain records from [facility]. Pt signed NADYA. We discussed risks, benefits and alternative treatment options. continue current medications. PLAN 1. Admit to S1, CV, 15 minutes checks for safety 2. continue current medications- trintellix 20mg po daily, buspar 20mg po TID, clonazepam 0.5mg po BID, ambien prn for sleep. 3. obtain collateral information 5. after care plan- consider DBT programming. 10/03: very anxious. continue current regimen for now. 10/04: no change in presentation or plan. 10/05: Patient showered and ports he is extremely anxious about it however does not want any medication changes 10/06 patient remains very anxious; discussed medications and reviewed risks/side effects of Zyprexa which patient agrees to try -Zyprexa 2.5 mg 1 time dose -will make Zyprexa 2.5 mg as a p.r.n. and if effective primary team provider can schedule 10/07 continue tx. encourage behavioral plan to attend to one group a day. Reason for continued inpatient stay Substantial Risk for: inability to function Time Spent With Patient Time: Total time managing care of this patient today ____ minutes.
[2024-10-07 09:06] VITALS: BP 106/68; PULSE 80; RESP 16; TEMP 36.9; O2SAT 96
[2024-10-07 20:00] VITALS: BP 122/60; PULSE 63; RESP 16; TEMP 36.3; O2SAT 93
[2024-10-08 08:54] VITALS: BP 122/59; PULSE 108; RESP 16; TEMP 36.6; O2SAT 95
--- NOTE | 2024-10-08 14:23 | P.PNPSI_ITS ---
Subjective Subjective Date of Service: 10/08/24 Reason For Visit: si Subjective Notes: Conditional Voluntary Interim History: Pt slept most of the night. He did attend 2 groups. He continues to report feeling as if he is not able to do anything, not able to care for himself. He reports he is open to shower tomorrow, given images and thoughts of suicide (drown self), along with self harm but not suicidal. Continues to endorsed depressed mood, hopeless, helpless. Mental Status Exam Mental Status Exam Narrative: Appearance: casually groomed, fair hygiene, appears quite anxious Behavior:cooperative. psychomotor:no agitation or retardation noted Speech:clear, normal rate/rhythm/volume, spontaneous Thought process:linear Thought content:no signs of psychosis, anxious Mood: very anxious Affect: constricted, hyper-intense, non-labile SI: intermittent thoughts of SI, drowning or self harm HI:none expressed VH/AH:none expressed Delusions:none expressed Insight/judgment:fair x 2. Memory/cog: alert, oriented x3. Diagnostics Vital Signs (24Hr): Vital Signs - 24 hr 10/07/24 20:00 10/08/24 08:54 Temperature 97.4 F 97.8 F Pulse Rate 63 108 H Respiratory Rate 16 16 Blood Pressure 122/60 122/59 L Pulse Oximetry 93 95 Oxygen Delivery Method Room Air Room Air BMI result Body Mass Index 20.5 Labs 09/30/24 11:30 10/02/24 07:23 Medications Medications Current Medications Acetaminophen (Acetaminophen 325 Mg Tablet) 650 mg PO Q6H PRN PRN Reason: Headache/Pain, Scale 1-10 Al Hydroxide/Mg Hydroxide (Magnesium Hydrox/Alum Hydrox 30 Ml Oral.Susp) 30 ml PO Q6H PRN PRN Reason: Heartburn/Nausea Buspirone HCl (Buspirone Hcl 10 Mg Tablet) 20 mg PO TID [facility] Last Admin: 10/08/24 08:56 Dose: 20 mg Clonazepam (Clonazepam 0.5 Mg Tablet) 0.5 mg PO BID SAL Last Admin: 10/08/24 08:56 Dose: 0.5 mg Clonazepam (Clonazepam 0.5 Mg Tablet) 0.5 mg PO DAILY PRN PRN Reason: Anxiety Last Admin: 10/07/24 16:25 Dose: 0.5 mg Hydroxyzine HCl (Hydroxyzine Hcl 25 Mg Tablet) 25 mg PO Q4H PRN PRN Reason: mild anxiety Last Admin: 10/08/24 08:55 Dose: 25 mg Magnesium Hydroxide (Milk Of Magnesia 30 Ml Oral.Susp) 30 ml PO DAILY PRN PRN Reason: Constipation Olanzapine (Olanzapine 2.5 Mg Tablet) 2.5 mg PO BID PRN PRN Reason: mod to severe anxiety Last Admin: 10/07/24 15:24 Dose: 2.5 mg Trazodone HCl (Trazodone Hcl 50 Mg Tablet) 50 mg PO BEDTIME MRX1 PRN PRN Reason: Insomnia Vortioxetine (Vortioxetine Hydrobromide 20 Mg Tablet) 20 mg PO DAILY SAL Last Admin: 10/08/24 08:55 Dose: 20 mg Zolpidem Tartrate (Zolpidem Tartrate 5 Mg Tablet) 5 mg PO BEDTIME PRN PRN Reason: Sleep Last Admin: 10/07/24 20:32 Dose: 5 mg Allergies Allergies Allergy/AdvReac Type Severity Reaction Status Date / Time ciprofloxacin [From CIPRO] Allergy Unknown DIARRHEA Verified 09/30/24 10:57 Morpholine Analogues Allergy Unknown Unknown Verified 09/30/24 10:57 amoxicillin Allergy Nausea Verified 09/30/24 10:57 meperidine Allergy Unknown Verified 09/30/24 10:57 pollen extracts Allergy Unknown Verified 09/30/24 10:57 Assessment & Plan Assessment & Plan (1) Personality disorder: Status: Acute Code(s): F60.9 - Personality disorder, unspecified (2) Depression, major, severe recurrence: Status: Acute Code(s): F33.2 - Major depressive disorder, recurrent severe without psychotic features (3) Generalized anxiety disorder with panic attacks: Status: Acute Code(s): F41.1 - Generalized anxiety disorder; F41.0 - Panic disorder [episodic paroxysmal anxiety] Plan Mr. Smith is a 74 year-old trans female to male who self presented to [facility] reporting increased depression, suicidal ideation with plan to drown self in bathtub. He reports feelings of abandonment, helplessness, hopelessness, needing care from other. He reports this is in setting of his psychotherapist retiring in April. Unclear if this is the case. He also reports he was at [facility] for last 3 months. Will obtain records from [facility]. Pt signed NADYA. We discussed risks, benefits and alternative treatment options. continue current medications. PLAN 1. Admit to S1, CV, 15 minutes checks for safety 2. continue current medications- trintellix 20mg po daily, buspar 20mg po TID, clonazepam 0.5mg po BID, ambien prn for sleep. 3. obtain collateral information 5. after care plan- consider DBT programming. 10/03: very anxious. continue current regimen for now. 10/04: no change in presentation or plan. 10/05: Patient showered and ports he is extremely anxious about it however does not want any medication changes 10/06 patient remains very anxious; discussed medications and reviewed risks/side effects of Zyprexa which patient agrees to try -Zyprexa 2.5 mg 1 time dose -will make Zyprexa 2.5 mg as a p.r.n. and if effective primary team provider can schedule 10/07 continue tx. encourage behavioral plan to attend to one group a day. 10/08 continue tx. Reason for continued inpatient stay Substantial Risk for: inability to function Time Spent With Patient Time: Total time managing care of this patient today ____ minutes.
[2024-10-08 20:00] VITALS: BP 115/60; PULSE 56; RESP 16; TEMP 36.9; O2SAT 96
[2024-10-09 09:49] VITALS: BP 117/69; PULSE 95; RESP 16; TEMP 36.4; O2SAT 96
--- NOTE | 2024-10-09 11:10 | HO.PSYCHPN ---
Subjective Subjective Date of Service: 10/09/24 Reason For Visit: si Subjective Notes: Conditional Voluntary Interim History: Pt slept through the night. He was able to have a shower, did better than he suspected. He reported he did not have thoughts of self harm, such as putting shower head in his mouth. He continues to report that he feels as if he can't do anything nor care for himself. No active plan to harm self at this point. Pt reports on and off panic attacks, we discussed adding medication to boost effect of antidepressant- such as vraylar or rexulti. Review of Systems Review of Systems Denies any shortness of breath, chest pain, dizziness, lightheadedness, abdominal pain or discomfort, nausea vomiting or diarrhea Mental Status Exam Mental Status Exam Narrative: Appearance: casually groomed, fair hygiene, appears quite anxious Behavior:cooperative. psychomotor:no agitation or retardation noted Speech:clear, normal rate/rhythm/volume, spontaneous Thought process:linear Thought content:no signs of psychosis, anxious Mood: very anxious Affect: constricted, hyper-intense, non-labile SI: intermittent thoughts of SI, drowning or self harm HI:none expressed VH/AH:none expressed Delusions:none expressed Insight/judgment:fair x 2. Memory/cog: alert, oriented x3. Diagnostics Vital Signs (24Hr): Vital Signs - 24 hr 10/08/24 20:00 10/09/24 09:49 Temperature 98.4 F 97.5 F Pulse Rate 56 95 Respiratory Rate 16 16 Blood Pressure 115/60 117/69 Pulse Oximetry 96 96 Oxygen Delivery Method Room Air Room Air BMI result Body Mass Index 20.5 Labs 09/30/24 11:30 10/02/24 07:23 Medications Medications Current Medications Acetaminophen (Acetaminophen 325 Mg Tablet) 650 mg PO Q6H PRN PRN Reason: Headache/Pain, Scale 1-10 Al Hydroxide/Mg Hydroxide (Magnesium Hydrox/Alum Hydrox 30 Ml Oral.Susp) 30 ml PO Q6H PRN PRN Reason: Heartburn/Nausea Buspirone HCl (Buspirone Hcl 10 Mg Tablet) 20 mg PO TID [facility] Last Admin: 10/09/24 09:41 Dose: 20 mg Clonazepam (Clonazepam 0.5 Mg Tablet) 0.5 mg PO BID [facility] Last Admin: 10/09/24 09:42 Dose: 0.5 mg Clonazepam (Clonazepam 0.5 Mg Tablet) 0.5 mg PO DAILY PRN PRN Reason: Anxiety Last Admin: 10/07/24 16:25 Dose: 0.5 mg Hydroxyzine HCl (Hydroxyzine Hcl 25 Mg Tablet) 25 mg PO Q4H PRN PRN Reason: mild anxiety Last Admin: 10/08/24 08:55 Dose: 25 mg Magnesium Hydroxide (Milk Of Magnesia 30 Ml Oral.Susp) 30 ml PO DAILY PRN PRN Reason: Constipation Olanzapine (Olanzapine 2.5 Mg Tablet) 2.5 mg PO BID PRN PRN Reason: mod to severe anxiety Last Admin: 10/09/24 09:43 Dose: 2.5 mg Trazodone HCl (Trazodone Hcl 50 Mg Tablet) 50 mg PO BEDTIME MRX1 PRN PRN Reason: Insomnia Vortioxetine (Vortioxetine Hydrobromide 20 Mg Tablet) 20 mg PO DAILY SAL Last Admin: 10/09/24 09:40 Dose: 20 mg Zolpidem Tartrate (Zolpidem Tartrate 5 Mg Tablet) 5 mg PO BEDTIME PRN PRN Reason: Sleep Last Admin: 10/08/24 20:14 Dose: 5 mg Allergies Allergies Allergy/AdvReac Type Severity Reaction Status Date / Time ciprofloxacin [From CIPRO] Allergy Unknown DIARRHEA Verified 09/30/24 10:57 Morpholine Analogues Allergy Unknown Unknown Verified 09/30/24 10:57 amoxicillin Allergy Nausea Verified 09/30/24 10:57 meperidine Allergy Unknown Verified 09/30/24 10:57 pollen extracts Allergy Unknown Verified 09/30/24 10:57 Assessment & Plan Assessment & Plan (1) Personality disorder: Status: Acute Code(s): F60.9 - Personality disorder, unspecified (2) Depression, major, severe recurrence: Status: Acute Code(s): F33.2 - Major depressive disorder, recurrent severe without psychotic features (3) Generalized anxiety disorder with panic attacks: Status: Acute Code(s): F41.1 - Generalized anxiety disorder; F41.0 - Panic disorder [episodic paroxysmal anxiety] Plan Mr. Smith is a 74 year-old trans female to male who self presented to [facility] reporting increased depression, suicidal ideation with plan to drown self in bathtub. He reports feelings of abandonment, helplessness, hopelessness, needing care from other. He reports this is in setting of his psychotherapist retiring in April. Unclear if this is the case. He also reports he was at [email or web address] for last 3 months. Will obtain records from [facility] [[email or web address] Pt signed NADYA. We discussed risks, benefits and alternative treatment options. continue current medications. PLAN 1. Admit to S1, CV, 15 minutes checks for safety 2. continue current medications- trintellix 20mg po daily, buspar 20mg po TID, clonazepam 0.5mg po BID, ambien prn for sleep. 3. obtain collateral information 5. after care plan- consider DBT programming. 10/03: very anxious. continue current regimen for now. 10/04: no change in presentation or plan. 10/05: Patient showered and ports he is extremely anxious about it however does not want any medication changes 10/06 patient remains very anxious; discussed medications and reviewed risks/side effects of Zyprexa which patient agrees to try -Zyprexa 2.5 mg 1 time dose -will make Zyprexa 2.5 mg as a p.r.n. and if effective primary team provider can schedule 10/07 continue tx. encourage behavioral plan to attend to one group a day. 10/08 continue tx. 10/09 plan to add rexulti 0.5mg po daily, boost effect of antidepressant. still wating for records from [facility]. Reason for continued inpatient stay Substantial Risk for: inability to function Time Spent With Patient Time: Total time managing care of this patient today ____ minutes.
--- NOTE | 2024-10-09 11:34 | P.CONHOSP_ITS ---
History of Present Illness Data of Consult Service Date: 10/09/24 Primary Care Provider: Scott Quiroz MD [facility] Reason for consult: Medical evaluation 74-year-old transgender female to male with a history of severe recurrent depression, anxiety with panic attacks, dependent personality disorder, GERD, Rosie's disease,tracheal stenosis who presented to the ER after a recent 3 months hospitalization for ECT, coming back with ongoing depression, anxiety, suicide ideation with plan to drown self. On exam patient appears well, denies any shortness of breath, chest pain, or any other medical concerns. His only complaint is that he feels anxious. Denies any loss of appetite, denies recent weight loss. No concerns from nursing. Review of Systems 2 Review of Systems: Denies any shortness of breath, chest pain, dizziness, lightheadedness, abdominal pain or discomfort, nausea vomiting or diarrhea PMFSH Medical History Transgender Hard of hearing Tracheal stenosis Family History Father Heart disease Social History (System 09/30/24 @ 10:57 by Griselda Metcalf) Household Members: None Housing: House Do you presently have visiting nurse or other home services: No Alcohol intake: never Patient Tobacco Use Status: Never used Tobacco Tobacco use type: Cigarette Years Smoked: 10 Smoked in Last 30 Days: No e-Cigarette/Vaping Use: Never Used Second Hand Smoke Exposure: No Use of substances other than those prescribed or required for medical reasons: No Currently Displaying Signs/Symptoms of Drug Intoxication Withdrawal: No Have you been hit, kicked, punched, or otherwise hurt by someone within the past year? If so, by whom?: No Do you feel safe in your current relationship?: No Current Relationship Is there a partner from a previous relationship who is making you feel unsafe now?: No Are you made to feel afraid or neglected: No Advance Directives: No Advance Directives Information Provided: Yes Do you have thoughts of harming others: None Do you have a plan to hurt others: No Plan Recently lost weight without trying: No service: No Sexual orientation: Straight/Heterosexual Meds Allergies Allergy/AdvReac Type Severity Reaction Status Date / Time ciprofloxacin [From CIPRO] Allergy Unknown DIARRHEA Verified 09/30/24 10:57 Morpholine Analogues Allergy Unknown Unknown Verified 09/30/24 10:57 amoxicillin Allergy Nausea Verified 09/30/24 10:57 meperidine Allergy Unknown Verified 09/30/24 10:57 pollen extracts Allergy Unknown Verified 09/30/24 10:57 Active Medications: Current Medications Acetaminophen (Acetaminophen 325 Mg Tablet) 650 mg PO Q6H PRN PRN Reason: Headache/Pain, Scale 1-10 Al Hydroxide/Mg Hydroxide (Magnesium Hydrox/Alum Hydrox 30 Ml Oral.Susp) 30 ml PO Q6H PRN PRN Reason: Heartburn/Nausea Buspirone HCl (Buspirone Hcl 10 Mg Tablet) 20 mg PO TID [facility] Last Admin: 10/09/24 09:41 Dose: 20 mg Clonazepam (Clonazepam 0.5 Mg Tablet) 0.5 mg PO BID [facility] Last Admin: 10/09/24 09:42 Dose: 0.5 mg Clonazepam (Clonazepam 0.5 Mg Tablet) 0.5 mg PO DAILY PRN PRN Reason: Anxiety Last Admin: 10/07/24 16:25 Dose: 0.5 mg Hydroxyzine HCl (Hydroxyzine Hcl 25 Mg Tablet) 25 mg PO Q4H PRN PRN Reason: mild anxiety Last Admin: 10/08/24 08:55 Dose: 25 mg Magnesium Hydroxide (Milk Of Magnesia 30 Ml Oral.Susp) 30 ml PO DAILY PRN PRN Reason: Constipation Olanzapine (Olanzapine 2.5 Mg Tablet) 2.5 mg PO BID PRN PRN Reason: mod to severe anxiety Last Admin: 10/09/24 09:43 Dose: 2.5 mg Trazodone HCl (Trazodone Hcl 50 Mg Tablet) 50 mg PO BEDTIME MRX1 PRN PRN Reason: Insomnia Vortioxetine (Vortioxetine Hydrobromide 20 Mg Tablet) 20 mg PO DAILY [facility] Last Admin: 10/09/24 09:40 Dose: 20 mg Zolpidem Tartrate (Zolpidem Tartrate 5 Mg Tablet) 5 mg PO BEDTIME PRN PRN Reason: Sleep Last Admin: 10/08/24 20:14 Dose: 5 mg Home Medications ?Medication ?Instructions ?Recorded ?Confirmed ?Last Taken ?Type buspirone 10 mg tablet 20 mg PO TID 09/30/24 09/30/24 Unknown History clonazepam 0.5 mg tablet 0.25 mg PO DAILY PRN Anxiety 09/30/24 09/30/24 Unknown History clonazepam 0.5 mg tablet 0.5 mg PO BID 09/30/24 09/30/24 Unknown History vortioxetine 20 mg tablet 20 mg PO DAILY 09/30/24 09/30/24 Unknown History (Trintellix) zolpidem 5 mg tablet 5 mg PO BEDTIME PRN Sleep 09/30/24 09/30/24 Unknown History Physical Exam 2 Vital Signs and Narrative: Vital Signs: Last Vital Signs Temp 97.5 F 10/09/24 09:49 Pulse 95 10/09/24 09:49 Resp 16 10/09/24 09:49 BP 117/69 10/09/24 09:49 Pulse Ox 96 10/09/24 09:49 O2 Del Method Room Air 10/09/24 09:49 BMI result Body Mass Index 20.5 CONST: Alert and oriented, in NAD. Well nourished HEENT: Normocephalic, atraumatic, MMM, Eyes clear, Neck supple RESP: Lungs clear, RRR even and regular HEART:,RRR, S1, S2. No murmur, no edema GI:Abdomen Soft NT, ND. + BS times four :Deferred SKIN: Warm dry and intact, no visible lesions or rashes NEURO:CN II-XII Intact bilaterally, Sensation intact. Speech clear PSYCH: Normal affect Results Labs 09/30/24 11:30 10/02/24 07:23 Assessment and Plan (1) MDD (major depressive disorder), recurrent episode, moderate: Status: Acute Plan Personality disorder/major depressive disorder without psychotic features/generalized anxiety disorder Treatment per psychiatry team History of GERD Previously taking omeprazole Restart if symptomatic. Hoarseness of voice 2/2 Hx of granulomatosis w polyangiitis/Wegeners Disease Continue tx as outpatient Thank you for allowing me to participate in the care of this patient. Will follow as needed. Please consult medical provider with any acute complaints or issues arise
[2024-10-09 20:00] VITALS: BP 116/60; PULSE 73; RESP 18; TEMP 36.4; O2SAT 95
[2024-10-10 07:48] VITALS: BP 127/68; PULSE 113; RESP 18; O2SAT 97
[2024-10-10 07:52] VITALS: TEMP 37.1
[2024-10-10 12:54] VITALS: BMI 27.1
--- NOTE | 2024-10-10 16:48 | HO.PSYCHPN ---
Subjective Subjective Date of Service: 10/10/24 Reason For Visit: si Subjective Notes: Conditional Voluntary Interim History: Pt slept through the night. He reports he is less anxious. continues to endorse depressed mood, helpless, not able to care for himself. He has attended at least one group a day, but still stays most of the day in his room. Started rexulti to boost effect of antidepressant. continue trintellix, clonazepam. No behavioral concerns. Review of Systems Review of Systems Denies any shortness of breath, chest pain, dizziness, lightheadedness, abdominal pain or discomfort, nausea vomiting or diarrhea Mental Status Exam Mental Status Exam Narrative: Appearance: casually groomed, fair hygiene, appears quite anxious Behavior:cooperative. psychomotor:no agitation or retardation noted Speech:clear, normal rate/rhythm/volume, spontaneous Thought process:linear Thought content:no signs of psychosis, anxious Mood: very anxious Affect: constricted, hyper-intense, non-labile SI: intermittent thoughts of SI, drowning or self harm HI:none expressed VH/AH:none expressed Delusions:none expressed Insight/judgment:fair x 2. Memory/cog: alert, oriented x3. Diagnostics Vital Signs (24Hr): Vital Signs - 24 hr 10/09/24 20:00 10/10/24 07:48 10/10/24 07:52 Temperature 97.5 F 98.7 F Pulse Rate 73 113 H Respiratory Rate 18 18 Blood Pressure 116/60 127/68 Pulse Oximetry 95 97 Oxygen Delivery Method Room Air BMI result Body Mass Index 27.1 Labs 09/30/24 11:30 10/02/24 07:23 Medications Medications Current Medications Acetaminophen (Acetaminophen 325 Mg Tablet) 650 mg PO Q6H PRN PRN Reason: Headache/Pain, Scale 1-10 Al Hydroxide/Mg Hydroxide (Magnesium Hydrox/Alum Hydrox 30 Ml Oral.Susp) 30 ml PO Q6H PRN PRN Reason: Heartburn/Nausea Buspirone HCl (Buspirone Hcl 10 Mg Tablet) 20 mg PO TID [facility] Last Admin: 10/10/24 14:10 Dose: 20 mg Clonazepam (Clonazepam 0.5 Mg Tablet) 0.5 mg PO BID [facility] Last Admin: 10/10/24 07:50 Dose: 0.5 mg Clonazepam (Clonazepam 0.5 Mg Tablet) 0.5 mg PO DAILY PRN PRN Reason: Anxiety Last Admin: 10/10/24 14:10 Dose: 0.5 mg Hydroxyzine HCl (Hydroxyzine Hcl 25 Mg Tablet) 25 mg PO Q4H PRN PRN Reason: mild anxiety Last Admin: 10/10/24 14:10 Dose: 25 mg Magnesium Hydroxide (Milk Of Magnesia 30 Ml Oral.Susp) 30 ml PO DAILY PRN PRN Reason: Constipation Olanzapine (Olanzapine 2.5 Mg Tablet) 2.5 mg PO BID PRN PRN Reason: mod to severe anxiety Last Admin: 10/10/24 11:11 Dose: 2.5 mg Trazodone HCl (Trazodone Hcl 50 Mg Tablet) 50 mg PO BEDTIME MRX1 PRN PRN Reason: Insomnia Vortioxetine (Vortioxetine Hydrobromide 20 Mg Tablet) 20 mg PO DAILY [facility] Last Admin: 10/10/24 07:50 Dose: 20 mg Zolpidem Tartrate (Zolpidem Tartrate 5 Mg Tablet) 5 mg PO BEDTIME PRN PRN Reason: Sleep Last Admin: 10/09/24 20:29 Dose: 5 mg Allergies Allergies Allergy/AdvReac Type Severity Reaction Status Date / Time ciprofloxacin [From CIPRO] Allergy Unknown DIARRHEA Verified 09/30/24 10:57 Morpholine Analogues Allergy Unknown Unknown Verified 09/30/24 10:57 amoxicillin Allergy Nausea Verified 09/30/24 10:57 meperidine Allergy Unknown Verified 09/30/24 10:57 pollen extracts Allergy Unknown Verified 09/30/24 10:57 Assessment & Plan Assessment & Plan (1) Personality disorder: Status: Acute Code(s): F60.9 - Personality disorder, unspecified (2) Depression, major, severe recurrence: Status: Acute Code(s): F33.2 - Major depressive disorder, recurrent severe without psychotic features (3) Generalized anxiety disorder with panic attacks: Status: Acute Code(s): F41.1 - Generalized anxiety disorder; F41.0 - Panic disorder [episodic paroxysmal anxiety] Plan Mr. Smith is a 74 year-old trans female to male who self presented to [facility] ED reporting increased depression, suicidal ideation with plan to drown self in bathtub. He reports feelings of abandonment, helplessness, hopelessness, needing care from other. He reports this is in setting of his psychotherapist retiring in April. Unclear if this is the case. He also reports he was at [facility] for last 3 months. Will obtain records from [facility]. Pt signed NADYA. We discussed risks, benefits and alternative treatment options. continue current medications. PLAN 1. Admit to S1, CV, 15 minutes checks for safety 2. continue current medications- trintellix 20mg po daily, buspar 20mg po TID, clonazepam 0.5mg po BID, ambien prn for sleep. 3. obtain collateral information 5. after care plan- consider DBT programming. 10/03: very anxious. continue current regimen for now. 10/04: no change in presentation or plan. 10/05: Patient showered and ports he is extremely anxious about it however does not want any medication changes 10/06 patient remains very anxious; discussed medications and reviewed risks/side effects of Zyprexa which patient agrees to try -Zyprexa 2.5 mg 1 time dose -will make Zyprexa 2.5 mg as a p.r.n. and if effective primary team provider can schedule 10/07 continue tx. encourage behavioral plan to attend to one group a day. 10/08 continue tx. 10/09 plan to add rexulti 0.5mg po daily, boost effect of antidepressant. still waiting for records from [facility]. 10/10 started rexulti 0.5mg po daily to boost effect of antidepressant. Reason for continued inpatient stay Substantial Risk for: inability to function Time Spent With Patient Time: Total time managing care of this patient today ____ minutes.
[2024-10-10 20:00] VITALS: BP 108/67; PULSE 81; RESP 18; TEMP 36.8; O2SAT 94
[2024-10-11 09:17] VITALS: BP 115/68; PULSE 102; RESP 15; TEMP 36.6; O2SAT 95
--- NOTE | 2024-10-11 11:11 | P.PNPSI_ITS ---
Subjective Subjective Date of Service: 10/11/24 Reason For Visit: si Subjective Notes: Conditional Voluntary Interim History: Pt slept through the night. Pt with brighter affect today. He still reports he depressed mood, anhedonia. He reports suicidal id mostly passive at this point. He reports abdominal pain after eating, denies nausea, vomiting, no constipation nor diarrhea. We did receved partial records from [facility]. Shalom reports ECT was helpful but soon after d/c he again felt very hopeless and very anxious. He reports feeling very anxious about all the things he has to do at home. Review of Systems Review of Systems Denies any shortness of breath, chest pain, dizziness, lightheadedness, abdominal pain or discomfort, nausea vomiting or diarrhea Mental Status Exam Mental Status Exam Narrative: Appearance: casually groomed, fair hygiene, appears quite anxious Behavior:cooperative. psychomotor:no agitation or retardation noted Speech:clear, normal rate/rhythm/volume, spontaneous Thought process:linear Thought content:no signs of psychosis, anxious Mood: very anxious Affect: constricted, hyper-intense, non-labile SI: intermittent thoughts of SI, drowning or self harm HI:none expressed VH/AH:none expressed Delusions:none expressed Insight/judgment:fair x 2. Memory/cog: alert, oriented x3. Diagnostics Vital Signs (24Hr): Vital Signs - 24 hr 10/10/24 20:00 10/11/24 09:17 Temperature 98.2 F 97.9 F Pulse Rate 81 102 H Respiratory Rate 18 15 Blood Pressure 108/67 115/68 Pulse Oximetry 94 95 Oxygen Delivery Method Room Air Room Air BMI result Body Mass Index 27.1 Labs 09/30/24 11:30 10/02/24 07:23 Medications Medications Current Medications Acetaminophen (Acetaminophen 325 Mg Tablet) 650 mg PO Q6H PRN PRN Reason: Headache/Pain, Scale 1-10 Al Hydroxide/Mg Hydroxide (Magnesium Hydrox/Alum Hydrox 30 Ml Oral.Susp) 30 ml PO Q6H PRN PRN Reason: Heartburn/Nausea Brexpiprazole (Brexpiprazole 1 Mg Tablet) 0.5 mg PO DAILY [facility] Last Admin: 10/11/24 09:19 Dose: 0.5 mg Buspirone HCl (Buspirone Hcl 10 Mg Tablet) 20 mg PO TID [facility] Last Admin: 10/11/24 09:18 Dose: 20 mg Clonazepam (Clonazepam 0.5 Mg Tablet) 0.5 mg PO BID [facility] Last Admin: 10/11/24 09:19 Dose: 0.5 mg Clonazepam (Clonazepam 0.5 Mg Tablet) 0.5 mg PO DAILY PRN PRN Reason: Anxiety Last Admin: 10/10/24 14:10 Dose: 0.5 mg Hydroxyzine HCl (Hydroxyzine Hcl 25 Mg Tablet) 25 mg PO Q4H PRN PRN Reason: mild anxiety Last Admin: 10/10/24 14:10 Dose: 25 mg Magnesium Hydroxide (Milk Of Magnesia 30 Ml Oral.Susp) 30 ml PO DAILY PRN PRN Reason: Constipation Olanzapine (Olanzapine 2.5 Mg Tablet) 2.5 mg PO BID PRN PRN Reason: mod to severe anxiety Last Admin: 10/11/24 09:48 Dose: 2.5 mg Trazodone HCl (Trazodone Hcl 50 Mg Tablet) 50 mg PO BEDTIME MRX1 PRN PRN Reason: Insomnia Vortioxetine (Vortioxetine Hydrobromide 20 Mg Tablet) 20 mg PO DAILY [facility] Last Admin: 10/11/24 09:20 Dose: 20 mg Zolpidem Tartrate (Zolpidem Tartrate 5 Mg Tablet) 5 mg PO BEDTIME PRN PRN Reason: Sleep Last Admin: 10/10/24 20:38 Dose: 5 mg Allergies Allergies Allergy/AdvReac Type Severity Reaction Status Date / Time ciprofloxacin [From CIPRO] Allergy Unknown DIARRHEA Verified 09/30/24 10:57 Morpholine Analogues Allergy Unknown Unknown Verified 09/30/24 10:57 amoxicillin Allergy Nausea Verified 09/30/24 10:57 meperidine Allergy Unknown Verified 09/30/24 10:57 pollen extracts Allergy Unknown Verified 09/30/24 10:57 Assessment & Plan Assessment & Plan (1) Personality disorder: Status: Acute Code(s): F60.9 - Personality disorder, unspecified (2) Depression, major, severe recurrence: Status: Acute Code(s): F33.2 - Major depressive disorder, recurrent severe without psychotic features (3) Generalized anxiety disorder with panic attacks: Status: Acute Code(s): F41.1 - Generalized anxiety disorder; F41.0 - Panic disorder [episodic paroxysmal anxiety] Plan Mr. Smith is a 74 year-old trans female to male who self presented to [facility] reporting increased depression, suicidal ideation with plan to drown self in bathtub. He reports feelings of abandonment, helplessness, hopelessness, needing care from other. He reports this is in setting of his psychotherapist retiring in April. Unclear if this is the case. He also reports he was at [facility] for last 3 months. Will obtain records from [facility]. Pt signed NADYA. We discussed risks, benefits and alternative treatment options. continue current medications. PLAN 1. Admit to S1, CV, 15 minutes checks for safety 2. continue current medications- trintellix 20mg po daily, buspar 20mg po TID, clonazepam 0.5mg po BID, ambien prn for sleep. 3. obtain collateral information 5. after care plan- consider DBT programming. 10/03: very anxious. continue current regimen for now. 10/04: no change in presentation or plan. 10/05: Patient showered and ports he is extremely anxious about it however does not want any medication changes 10/06 patient remains very anxious; discussed medications and reviewed risks/side effects of Zyprexa which patient agrees to try -Zyprexa 2.5 mg 1 time dose -will make Zyprexa 2.5 mg as a p.r.n. and if effective primary team provider can schedule 10/07 continue tx. encourage behavioral plan to attend to one group a day. 10/08 continue tx. 10/09 plan to add rexulti 0.5mg po daily, boost effect of antidepressant. still waiting for records from [facility]. 10/10 started rexulti 0.5mg po daily to boost effect of antidepressant. 10/11 slightly brighter, still spends most of the time in bed. reports anxious mood.passive SI. added famotidine 20mg po daily. Reason for continued inpatient stay Substantial Risk for: inability to function Time Spent With Patient Time: Total time managing care of this patient today ____ minutes.
[2024-10-11 20:00] VITALS: BP 134/60; PULSE 66; RESP 18; TEMP 36.5; O2SAT 96
[2024-10-12 08:00] VITALS: BP 132/68; PULSE 92; RESP 20; TEMP 37.7; O2SAT 99
--- NOTE | 2024-10-12 10:03 | P.PNPSI_ITS ---
Subjective Subjective Date of Service: 10/12/24 Reason For Visit: si Interim History: Pt slept through the night. Complains of abdominal pain after eating. Denies N/V/diarrhea or constipation. Denies heartburn. He thinks it could be stress . Denies SI. Anxious. Denies SI. Feels medications have been helpful. Review of Systems Review of Systems Denies any shortness of breath, chest pain, dizziness, lightheadedness, abdominal pain or discomfort, nausea vomiting or diarrhea Mental Status Exam Mental Status Exam Narrative: Appearance: casually groomed, fair hygiene, appears quite anxious Behavior:cooperative. psychomotor:no agitation or retardation noted Speech:clear, normal rate/rhythm/volume, spontaneous Thought process:linear Thought content:no signs of psychosis, anxious Mood: very anxious Affect: constricted, hyper-intense, non-labile SI: intermittent thoughts of SI, drowning or self harm HI:none expressed VH/AH:none expressed Delusions:none expressed Insight/judgment:fair x 2. Memory/cog: alert, oriented x3. Diagnostics Vital Signs (24Hr): Vital Signs - 24 hr 10/11/24 20:00 10/12/24 08:00 Temperature 97.7 F 99.9 F Pulse Rate 66 92 Respiratory Rate 18 20 Blood Pressure 134/60 132/68 Pulse Oximetry 96 99 Oxygen Delivery Method Room Air Room Air BMI result Body Mass Index 27.1 Labs 09/30/24 11:30 10/02/24 07:23 Medications Medications Current Medications Acetaminophen (Acetaminophen 325 Mg Tablet) 650 mg PO Q6H PRN PRN Reason: Headache/Pain, Scale 1-10 Al Hydroxide/Mg Hydroxide (Magnesium Hydrox/Alum Hydrox 30 Ml Oral.Susp) 30 ml PO Q6H PRN PRN Reason: Heartburn/Nausea Brexpiprazole (Brexpiprazole 1 Mg Tablet) 0.5 mg PO DAILY [facility] Last Admin: 10/12/24 08:54 Dose: 0.5 mg Buspirone HCl (Buspirone Hcl 10 Mg Tablet) 20 mg PO TID [facility] Last Admin: 10/12/24 08:58 Dose: 20 mg Clonazepam (Clonazepam 0.5 Mg Tablet) 0.5 mg PO BID [facility] Last Admin: 10/12/24 08:59 Dose: 0.5 mg Clonazepam (Clonazepam 0.5 Mg Tablet) 0.5 mg PO DAILY PRN PRN Reason: Anxiety Last Admin: 10/10/24 14:10 Dose: 0.5 mg Famotidine (Famotidine 20 Mg Tablet) 20 mg PO DAILY [facility] Last Admin: 10/12/24 08:59 Dose: 20 mg Hydroxyzine HCl (Hydroxyzine Hcl 25 Mg Tablet) 25 mg PO Q4H PRN PRN Reason: mild anxiety Last Admin: 10/10/24 14:10 Dose: 25 mg Magnesium Hydroxide (Milk Of Magnesia 30 Ml Oral.Susp) 30 ml PO DAILY PRN PRN Reason: Constipation Olanzapine (Olanzapine 2.5 Mg Tablet) 2.5 mg PO BID PRN PRN Reason: mod to severe anxiety Last Admin: 10/12/24 09:00 Dose: 2.5 mg Omeprazole (Omeprazole 20 Mg Capsule.Dr) 20 mg PO DAILY@0630 [facility] Last Admin: 10/12/24 09:00 Dose: 20 mg Trazodone HCl (Trazodone Hcl 50 Mg Tablet) 50 mg PO BEDTIME MRX1 PRN PRN Reason: Insomnia Vortioxetine (Vortioxetine Hydrobromide 20 Mg Tablet) 20 mg PO DAILY [facility] Last Admin: 10/12/24 09:01 Dose: 20 mg Zolpidem Tartrate (Zolpidem Tartrate 5 Mg Tablet) 5 mg PO BEDTIME PRN PRN Reason: Sleep Last Admin: 10/11/24 21:11 Dose: 5 mg Allergies Allergies Allergy/AdvReac Type Severity Reaction Status Date / Time ciprofloxacin [From CIPRO] Allergy Unknown DIARRHEA Verified 09/30/24 10:57 Morpholine Analogues Allergy Unknown Unknown Verified 09/30/24 10:57 amoxicillin Allergy Nausea Verified 09/30/24 10:57 meperidine Allergy Unknown Verified 09/30/24 10:57 pollen extracts Allergy Unknown Verified 09/30/24 10:57 Assessment & Plan Assessment & Plan (1) Personality disorder: Status: Acute Code(s): F60.9 - Personality disorder, unspecified (2) Depression, major, severe recurrence: Status: Acute Code(s): F33.2 - Major depressive disorder, recurrent severe without psychotic features (3) Generalized anxiety disorder with panic attacks: Status: Acute Code(s): F41.1 - Generalized anxiety disorder; F41.0 - Panic disorder [episodic paroxysmal anxiety] Plan Mr. Smith is a 74 year-old trans female to male who self presented to [facility] reporting increased depression, suicidal ideation with plan to drown self in bathtub. He reports feelings of abandonment, helplessness, hopelessness, needing care from other. He reports this is in setting of his psychotherapist retiring in April. Unclear if this is the case. He also reports he was at [facility] for last 3 months. Will obtain records from [facility]. Pt signed NADYA. We discussed risks, benefits and alternative treatment options. continue current medications. PLAN 1. Admit to S1, CV, 15 minutes checks for safety 2. continue current medications- trintellix 20mg po daily, buspar 20mg po TID, clonazepam 0.5mg po BID, ambien prn for sleep. 3. obtain collateral information 5. after care plan- consider DBT programming. 10/03: very anxious. continue current regimen for now. 10/04: no change in presentation or plan. 10/05: Patient showered and ports he is extremely anxious about it however does not want any medication changes 10/06 patient remains very anxious; discussed medications and reviewed risks/side effects of Zyprexa which patient agrees to try -Zyprexa 2.5 mg 1 time dose -will make Zyprexa 2.5 mg as a p.r.n. and if effective primary team provider can schedule 10/07 continue tx. encourage behavioral plan to attend to one group a day. 10/08 continue tx. 10/09 plan to add rexulti 0.5mg po daily, boost effect of antidepressant. still waiting for records from [facility]. 10/10 started rexulti 0.5mg po daily to boost effect of antidepressant. 10/11 slightly brighter, still spends most of the time in bed. reports anxious mood.passive SI. added famotidine 20mg po daily. 10/12: continue current management and treatment plan. Reason for continued inpatient stay Substantial Risk for: harm to self, inability to function and rapid decompensation Time Spent With Patient Time: Total time managing care of this patient today ____ minutes.
[2024-10-12 20:00] VITALS: BP 111/55; PULSE 69; RESP 18; TEMP 36.8; O2SAT 96
[2024-10-13 08:00] VITALS: BP 108/66; PULSE 105; RESP 18; TEMP 36.9; O2SAT 97
[2024-10-13 13:59] VITALS: BP 117/60; PULSE 97; RESP 18; TEMP 37; O2SAT 98
--- NOTE | 2024-10-13 14:44 | HO.PSYCHPN ---
Subjective Subjective Date of Service: 10/13/24 Reason For Visit: si Interim History: Pt slept through the night. Says he is anxious. Educated about using hydroxyzine. Asking to have the Ambien scheduled rather than PRN because he always takes it. Complains of abdominal pain. He thinks it could be stress . Denies SI. Anxious. Feels medications have been helpful. Review of Systems Review of Systems Denies any shortness of breath, chest pain, dizziness, lightheadedness, abdominal pain or discomfort, nausea vomiting or diarrhea Mental Status Exam Mental Status Exam Narrative: Appearance: casually groomed, fair hygiene, appears quite anxious Behavior:cooperative. psychomotor:no agitation or retardation noted Speech:clear, normal rate/rhythm/volume, spontaneous Thought process:linear Thought content:no signs of psychosis, anxious Mood: very anxious Affect: constricted, hyper-intense, non-labile SI: intermittent thoughts of SI, drowning or self harm HI:none expressed VH/AH:none expressed Delusions:none expressed Insight/judgment:fair x 2. Memory/cog: alert, oriented x3. Diagnostics Vital Signs (24Hr): Vital Signs - 24 hr 10/12/24 20:00 10/13/24 08:00 10/13/24 13:59 Temperature 98.2 F 98.5 F 98.6 F Pulse Rate 69 105 H 97 Respiratory Rate 18 18 18 Blood Pressure 111/55 L 108/66 117/60 Pulse Oximetry 96 97 98 Oxygen Delivery Method Room Air Room Air Room Air BMI result Body Mass Index 27.1 Labs 09/30/24 11:30 10/02/24 07:23 Medications Medications Current Medications Acetaminophen (Acetaminophen 325 Mg Tablet) 650 mg PO Q6H PRN PRN Reason: Headache/Pain, Scale 1-10 Al Hydroxide/Mg Hydroxide (Magnesium Hydrox/Alum Hydrox 30 Ml Oral.Susp) 30 ml PO Q6H PRN PRN Reason: Heartburn/Nausea Brexpiprazole (Brexpiprazole 1 Mg Tablet) 0.5 mg PO DAILY [facility] Last Admin: 10/13/24 08:53 Dose: 0.5 mg Buspirone HCl (Buspirone Hcl 10 Mg Tablet) 20 mg PO TID [facility] Last Admin: 10/13/24 08:54 Dose: 20 mg Clonazepam (Clonazepam 0.5 Mg Tablet) 0.5 mg PO BID [facility] Last Admin: 10/13/24 08:54 Dose: 0.5 mg Clonazepam (Clonazepam 0.5 Mg Tablet) 0.5 mg PO DAILY PRN PRN Reason: Anxiety Last Admin: 10/10/24 14:10 Dose: 0.5 mg Famotidine (Famotidine 20 Mg Tablet) 20 mg PO DAILY [facility] Last Admin: 10/13/24 08:53 Dose: 20 mg Hydroxyzine HCl (Hydroxyzine Hcl 25 Mg Tablet) 25 mg PO Q4H PRN PRN Reason: mild anxiety Last Admin: 10/10/24 14:10 Dose: 25 mg Magnesium Hydroxide (Milk Of Magnesia 30 Ml Oral.Susp) 30 ml PO DAILY PRN PRN Reason: Constipation Olanzapine (Olanzapine 2.5 Mg Tablet) 2.5 mg PO BID PRN PRN Reason: mod to severe anxiety Last Admin: 10/13/24 08:56 Dose: 2.5 mg Omeprazole (Omeprazole 20 Mg Capsule.Dr) 20 mg PO DAILY@0630 [facility] Last Admin: 10/13/24 08:56 Dose: 20 mg Trazodone HCl (Trazodone Hcl 50 Mg Tablet) 50 mg PO BEDTIME MRX1 PRN PRN Reason: Insomnia Vortioxetine (Vortioxetine Hydrobromide 20 Mg Tablet) 20 mg PO DAILY [facility] Last Admin: 10/13/24 08:53 Dose: 20 mg Zolpidem Tartrate (Zolpidem Tartrate 5 Mg Tablet) 5 mg PO BEDTIME [facility] Allergies Allergies Allergy/AdvReac Type Severity Reaction Status Date / Time ciprofloxacin [From CIPRO] Allergy Unknown DIARRHEA Verified 09/30/24 10:57 Morpholine Analogues Allergy Unknown Unknown Verified 09/30/24 10:57 amoxicillin Allergy Nausea Verified 09/30/24 10:57 meperidine Allergy Unknown Verified 09/30/24 10:57 pollen extracts Allergy Unknown Verified 09/30/24 10:57 Assessment & Plan Assessment & Plan (1) Personality disorder: Status: Acute Code(s): F60.9 - Personality disorder, unspecified (2) Depression, major, severe recurrence: Status: Acute Code(s): F33.2 - Major depressive disorder, recurrent severe without psychotic features (3) Generalized anxiety disorder with panic attacks: Status: Acute Code(s): F41.1 - Generalized anxiety disorder; F41.0 - Panic disorder [episodic paroxysmal anxiety] Plan Mr. Luis is a 74 year-old trans female to male who self presented to [facility] reporting increased depression, suicidal ideation with plan to drown self in bathtub. He reports feelings of abandonment, helplessness, hopelessness, needing care from other. He reports this is in setting of his psychotherapist retiring in April. Unclear if this is the case. He also reports he was at [facility] for last 3 months. Will obtain records from [facility]. Pt signed NADYA. We discussed risks, benefits and alternative treatment options. continue current medications. PLAN 1. Admit to S1, CV, 15 minutes checks for safety 2. continue current medications- trintellix 20mg po daily, buspar 20mg po TID, clonazepam 0.5mg po BID, ambien prn for sleep. 3. obtain collateral information 5. after care plan- consider DBT programming. 10/03: very anxious. continue current regimen for now. 10/04: no change in presentation or plan. 10/05: Patient showered and ports he is extremely anxious about it however does not want any medication changes 10/06 patient remains very anxious; discussed medications and reviewed risks/side effects of Zyprexa which patient agrees to try -Zyprexa 2.5 mg 1 time dose -will make Zyprexa 2.5 mg as a p.r.n. and if effective primary team provider can schedule 10/07 continue tx. encourage behavioral plan to attend to one group a day. 10/08 continue tx. 10/09 plan to add rexulti 0.5mg po daily, boost effect of antidepressant. still waiting for records from [facility]. 10/10 started rexulti 0.5mg po daily to boost effect of antidepressant. 10/11 slightly brighter, still spends most of the time in bed. reports anxious mood.passive SI. added famotidine 20mg po daily. 10/12: continue current management and treatment plan. 10/13: continue current management and treatment plan. Reason for continued inpatient stay Substantial Risk for: inability to function and rapid decompensation Time Spent With Patient Time: Total time managing care of this patient today ____ minutes.
[2024-10-13 20:00] VITALS: BP 105/67; PULSE 74; RESP 18; TEMP 36.6; O2SAT 97
[2024-10-14 08:48] VITALS: BP 125/73; PULSE 79; RESP 16; TEMP 36.9; O2SAT 96
--- NOTE | 2024-10-14 09:36 | HO.PSYCHPN ---
Subjective Subjective Date of Service: 10/14/24 Reason For Visit: si Interim History: Patient reports he is anxious because his car needs $5,000 worth of repairs, because his house is a mess because some friends were staying there and they made a mess. Overwhelmed with his life situation. Denies SI. Anxious. Feels medications have been partially helpful. Relies on PRN medications for anxiety relief. Limited coping skills. Review of Systems Review of Systems Denies any shortness of breath, chest pain, dizziness, lightheadedness, abdominal pain or discomfort, nausea vomiting or diarrhea Mental Status Exam Mental Status Exam Narrative: Appearance: casually groomed, fair hygiene, appears quite anxious Behavior:cooperative. psychomotor:no agitation or retardation noted Speech:clear, normal rate/rhythm/volume, spontaneous Thought process:linear Thought content:no signs of psychosis, anxious Mood: very anxious Affect: constricted, hyper-intense, non-labile SI: intermittent thoughts of SI, drowning or self harm HI:none expressed VH/AH:none expressed Delusions:none expressed Insight/judgment:fair x 2. Memory/cog: alert, oriented x3. Diagnostics Vital Signs (24Hr): Vital Signs - 24 hr 10/13/24 13:59 10/13/24 20:00 10/14/24 08:48 Temperature 98.6 F 97.9 F 98.4 F Pulse Rate 97 74 79 Respiratory Rate 18 18 16 Blood Pressure 117/60 105/67 125/73 Pulse Oximetry 98 97 96 Oxygen Delivery Method Room Air Room Air Room Air BMI result Body Mass Index 27.1 Labs 09/30/24 11:30 10/02/24 07:23 Medications Medications Current Medications Acetaminophen (Acetaminophen 325 Mg Tablet) 650 mg PO Q6H PRN PRN Reason: Headache/Pain, Scale 1-10 Al Hydroxide/Mg Hydroxide (Magnesium Hydrox/Alum Hydrox 30 Ml Oral.Susp) 30 ml PO Q6H PRN PRN Reason: Heartburn/Nausea Brexpiprazole (Brexpiprazole 1 Mg Tablet) 0.5 mg PO DAILY [facility] Last Admin: 10/14/24 08:50 Dose: 0.5 mg Buspirone HCl (Buspirone Hcl 10 Mg Tablet) 20 mg PO TID [facility] Last Admin: 10/14/24 08:50 Dose: 20 mg Clonazepam (Clonazepam 0.5 Mg Tablet) 0.5 mg PO BID [facility] Last Admin: 10/14/24 08:51 Dose: 0.5 mg Clonazepam (Clonazepam 0.5 Mg Tablet) 0.5 mg PO DAILY PRN PRN Reason: Anxiety Last Admin: 10/10/24 14:10 Dose: 0.5 mg Famotidine (Famotidine 20 Mg Tablet) 20 mg PO DAILY [facility] Last Admin: 10/14/24 08:50 Dose: 20 mg Hydroxyzine HCl (Hydroxyzine Hcl 25 Mg Tablet) 25 mg PO Q4H PRN PRN Reason: mild anxiety Last Admin: 10/10/24 14:10 Dose: 25 mg Magnesium Hydroxide (Milk Of Magnesia 30 Ml Oral.Susp) 30 ml PO DAILY PRN PRN Reason: Constipation Olanzapine (Olanzapine 2.5 Mg Tablet) 2.5 mg PO BID PRN PRN Reason: mod to severe anxiety Last Admin: 10/14/24 08:50 Dose: 2.5 mg Omeprazole (Omeprazole 20 Mg Capsule.Dr) 20 mg PO DAILY@0630 [facility] Last Admin: 10/14/24 06:07 Dose: 20 mg Trazodone HCl (Trazodone Hcl 50 Mg Tablet) 50 mg PO BEDTIME MRX1 PRN PRN Reason: Insomnia Vortioxetine (Vortioxetine Hydrobromide 20 Mg Tablet) 20 mg PO DAILY [facility] Last Admin: 10/14/24 08:51 Dose: 20 mg Zolpidem Tartrate (Zolpidem Tartrate 5 Mg Tablet) 5 mg PO BEDTIME [facility] Last Admin: 10/13/24 21:26 Dose: 5 mg Allergies Allergies Allergy/AdvReac Type Severity Reaction Status Date / Time ciprofloxacin [From CIPRO] Allergy Unknown DIARRHEA Verified 09/30/24 10:57 Morpholine Analogues Allergy Unknown Unknown Verified 09/30/24 10:57 amoxicillin Allergy Nausea Verified 09/30/24 10:57 meperidine Allergy Unknown Verified 09/30/24 10:57 pollen extracts Allergy Unknown Verified 09/30/24 10:57 Assessment & Plan Assessment & Plan (1) Personality disorder: Status: Acute Code(s): F60.9 - Personality disorder, unspecified (2) Depression, major, severe recurrence: Status: Acute Code(s): F33.2 - Major depressive disorder, recurrent severe without psychotic features (3) Generalized anxiety disorder with panic attacks: Status: Acute Code(s): F41.1 - Generalized anxiety disorder; F41.0 - Panic disorder [episodic paroxysmal anxiety] Plan Mr. Smith is a 74 year-old trans female to male who self presented to [facility] ED reporting increased depression, suicidal ideation with plan to drown self in bathtub. He reports feelings of abandonment, helplessness, hopelessness, needing care from other. He reports this is in setting of his psychotherapist retiring in April. Unclear if this is the case. He also reports he was at [facility] for last 3 months. Will obtain records from [facility]. Pt signed NADYA. We discussed risks, benefits and alternative treatment options. continue current medications. PLAN 1. Admit to S1, CV, 15 minutes checks for safety 2. continue current medications- trintellix 20mg po daily, buspar 20mg po TID, clonazepam 0.5mg po BID, ambien prn for sleep. 3. obtain collateral information 5. after care plan- consider DBT programming. 10/03: very anxious. continue current regimen for now. 10/04: no change in presentation or plan. 10/05: Patient showered and ports he is extremely anxious about it however does not want any medication changes 10/06 patient remains very anxious; discussed medications and reviewed risks/side effects of Zyprexa which patient agrees to try -Zyprexa 2.5 mg 1 time dose -will make Zyprexa 2.5 mg as a p.r.n. and if effective primary team provider can schedule 10/07 continue tx. encourage behavioral plan to attend to one group a day. 10/08 continue tx. 10/09 plan to add rexulti 0.5mg po daily, boost effect of antidepressant. still waiting for records from [facility]. 10/10 started rexulti 0.5mg po daily to boost effect of antidepressant. 10/11 slightly brighter, still spends most of the time in bed. reports anxious mood.passive SI. added famotidine 20mg po daily. 10/12: continue current management and treatment plan. 10/13: continue current management and treatment plan. 10/14: continue current management and treatment plan. Reason for continued inpatient stay Substantial Risk for: harm to self, inability to function and rapid decompensation Time Spent With Patient Time: Total time managing care of this patient today ____ minutes.
[2024-10-14 20:06] VITALS: BP 105/80; PULSE 85; RESP 16; TEMP 36.5; O2SAT 93
--- NOTE | 2024-10-15 08:43 | HO.PSYCHPN ---
Subjective Subjective Date of Service: 10/15/24 Reason For Visit: si Subjective Notes: Conditional Voluntary Interim History: Pt slept through the night. he continues to report that he is feeling anxious, depressed, fear of not being able to care for self. Preoccupied with list of things that need to do at home and as he talks about them appears to be hyperventilating. Passive SI, no plan or intent. reports less intrusive thoughts of shower head in his mouth or self harm thoughts nor behaviors. we discussed switch from trintellix to maoi, wash out period needed before starting selegiline. Diagnostics Vital Signs (24Hr): Vital Signs - 24 hr 10/14/24 08:48 10/14/24 20:06 Temperature 98.4 F 97.7 F Pulse Rate 79 85 Respiratory Rate 16 16 Blood Pressure 125/73 105/80 Pulse Oximetry 96 93 Oxygen Delivery Method Room Air Room Air BMI result Body Mass Index 27.1 Labs 09/30/24 11:30 10/02/24 07:23 Medications Medications Current Medications Acetaminophen (Acetaminophen 325 Mg Tablet) 650 mg PO Q6H PRN PRN Reason: Headache/Pain, Scale 1-10 Al Hydroxide/Mg Hydroxide (Magnesium Hydrox/Alum Hydrox 30 Ml Oral.Susp) 30 ml PO Q6H PRN PRN Reason: Heartburn/Nausea Brexpiprazole (Brexpiprazole 1 Mg Tablet) 0.5 mg PO DAILY [facility] Last Admin: 10/14/24 08:50 Dose: 0.5 mg Buspirone HCl (Buspirone Hcl 10 Mg Tablet) 20 mg PO TID [facility] Last Admin: 10/14/24 20:09 Dose: 20 mg Clonazepam (Clonazepam 0.5 Mg Tablet) 0.5 mg PO BID [facility] Last Admin: 10/14/24 20:08 Dose: 0.5 mg Clonazepam (Clonazepam 0.5 Mg Tablet) 0.5 mg PO DAILY PRN PRN Reason: Anxiety Last Admin: 10/14/24 11:21 Dose: 0.5 mg Famotidine (Famotidine 20 Mg Tablet) 20 mg PO DAILY [facility] Last Admin: 10/14/24 08:50 Dose: 20 mg Hydroxyzine HCl (Hydroxyzine Hcl 25 Mg Tablet) 25 mg PO Q4H PRN PRN Reason: mild anxiety Last Admin: 10/14/24 11:21 Dose: 25 mg Magnesium Hydroxide (Milk Of Magnesia 30 Ml Oral.Susp) 30 ml PO DAILY PRN PRN Reason: Constipation Olanzapine (Olanzapine 2.5 Mg Tablet) 2.5 mg PO BID PRN PRN Reason: mod to severe anxiety Last Admin: 10/14/24 16:10 Dose: 2.5 mg Omeprazole (Omeprazole 20 Mg Capsule.Dr) 20 mg PO DAILY@0630 [facility] Last Admin: 10/15/24 05:26 Dose: 20 mg Trazodone HCl (Trazodone Hcl 50 Mg Tablet) 50 mg PO BEDTIME MRX1 PRN PRN Reason: Insomnia Vortioxetine (Vortioxetine Hydrobromide 20 Mg Tablet) 20 mg PO DAILY [facility] Last Admin: 10/14/24 08:51 Dose: 20 mg Zolpidem Tartrate (Zolpidem Tartrate 5 Mg Tablet) 5 mg PO BEDTIME [facility] Last Admin: 10/14/24 20:08 Dose: 5 mg Allergies Allergies Allergy/AdvReac Type Severity Reaction Status Date / Time ciprofloxacin [From CIPRO] Allergy Unknown DIARRHEA Verified 09/30/24 10:57 Morpholine Analogues Allergy Unknown Unknown Verified 09/30/24 10:57 amoxicillin Allergy Nausea Verified 09/30/24 10:57 meperidine Allergy Unknown Verified 09/30/24 10:57 pollen extracts Allergy Unknown Verified 09/30/24 10:57 Assessment & Plan Assessment & Plan (1) Personality disorder: Status: Acute Code(s): F60.9 - Personality disorder, unspecified (2) Depression, major, severe recurrence: Status: Acute Code(s): F33.2 - Major depressive disorder, recurrent severe without psychotic features (3) Generalized anxiety disorder with panic attacks: Status: Acute Code(s): F41.1 - Generalized anxiety disorder; F41.0 - Panic disorder [episodic paroxysmal anxiety] Plan Mr. Smith is a 74 year-old trans female to male who self presented to [facility] reporting increased depression, suicidal ideation with plan to drown self in bathtub. He reports feelings of abandonment, helplessness, hopelessness, needing care from other. He reports this is in setting of his psychotherapist retiring in April. Unclear if this is the case. He also reports he was at [facility] for last 3 months. Will obtain records from [facility]. Pt signed NADYA. We discussed risks, benefits and alternative treatment options. continue current medications. PLAN 1. Admit to S1, CV, 15 minutes checks for safety 2. continue current medications- trintellix 20mg po daily, buspar 20mg po TID, clonazepam 0.5mg po BID, ambien prn for sleep. 3. obtain collateral information 5. after care plan- consider DBT programming. 10/03: very anxious. continue current regimen for now. 10/04: no change in presentation or plan. 10/05: Patient showered and ports he is extremely anxious about it however does not want any medication changes 10/06 patient remains very anxious; discussed medications and reviewed risks/side effects of Zyprexa which patient agrees to try -Zyprexa 2.5 mg 1 time dose -will make Zyprexa 2.5 mg as a p.r.n. and if effective primary team provider can schedule 10/07 continue tx. encourage behavioral plan to attend to one group a day. 10/08 continue tx. 10/09 plan to add rexulti 0.5mg po daily, boost effect of antidepressant. still waiting for records from [facility]. 10/10 started rexulti 0.5mg po daily to boost effect of antidepressant. 10/11 slightly brighter, still spends most of the time in bed. reports anxious mood.passive SI. added famotidine 20mg po daily. 10/12: continue current management and treatment plan. 10/13: continue current management and treatment plan. 10/14: continue current management and treatment plan. 10/15 we discussed switch from trintellix to maoi, wash out period needed before starting selegiline. will lower trintellix to 10mg po daily. change clonazepam to diazepam for anxiety. d/c buspar limited clinical efficacy. Reason for continued inpatient stay Substantial Risk for: inability to function Time Spent With Patient Time: Total time managing care of this patient today ____ minutes.
[2024-10-15 09:44] VITALS: BP 134/69; PULSE 106; RESP 18; TEMP 36.8; O2SAT 94
[2024-10-15 20:00] VITALS: BP 112/62; PULSE 85; RESP 18; TEMP 36.6; O2SAT 96
[2024-10-16 08:00] VITALS: BP 121/65; PULSE 100; RESP 17; TEMP 36.7; O2SAT 95
--- NOTE | 2024-10-16 08:35 | HO.PSYCHPN ---
Subjective Subjective Date of Service: 10/16/24 Reason For Visit: si Subjective Notes: Conditional Voluntary Interim History: Pt slept through the night. He reports feeling less anxious with diazepam but reports that it is not unusual for him that some medication may initially seem to work and then they don't. Pt declined showered. He commented on roommate needing a lot of help and feeling identified with this... referring to tendency to feel like he is not able to care for self and asking other for help. this proposal manager writer gave information about selegiline and continue plan to taper off. we discussed switch from trintellix to maoi, wash out period needed before starting selegiline. Review of Systems Review of Systems Denies any shortness of breath, chest pain, dizziness, lightheadedness, abdominal pain or discomfort, nausea vomiting or diarrhea Mental Status Exam Mental Status Exam Narrative: Appearance: casually groomed, fair hygiene, appears quite anxious Behavior:cooperative. psychomotor:no agitation or retardation noted Speech:clear, normal rate/rhythm/volume, spontaneous Thought process:linear Thought content:no signs of psychosis, anxious Mood: very anxious Affect: constricted, hyper-intense, non-labile SI: intermittent thoughts of SI, drowning or self harm HI:none expressed VH/AH:none expressed Delusions:none expressed Insight/judgment:fair x 2. Memory/cog: alert, oriented x3. Diagnostics Vital Signs (24Hr): Vital Signs - 24 hr 10/15/24 09:44 10/15/24 20:00 Temperature 98.2 F 97.9 F Pulse Rate 106 H 85 Respiratory Rate 18 18 Blood Pressure 134/69 112/62 Pulse Oximetry 94 96 Oxygen Delivery Method Room Air Room Air BMI result Body Mass Index 27.1 Labs 09/30/24 11:30 10/02/24 07:23 Medications Medications Current Medications Acetaminophen (Acetaminophen 325 Mg Tablet) 650 mg PO Q6H PRN PRN Reason: Headache/Pain, Scale 1-10 Al Hydroxide/Mg Hydroxide (Magnesium Hydrox/Alum Hydrox 30 Ml Oral.Susp) 30 ml PO Q6H PRN PRN Reason: Heartburn/Nausea Brexpiprazole (Brexpiprazole 1 Mg Tablet) 0.5 mg PO DAILY [facility] Last Admin: 10/15/24 09:46 Dose: 0.5 mg Diazepam (Diazepam 2 Mg Tablet) 2 mg PO TID [facility] Last Admin: 10/15/24 21:17 Dose: 2 mg Famotidine (Famotidine 20 Mg Tablet) 20 mg PO DAILY [facility] Last Admin: 10/15/24 09:47 Dose: 20 mg Hydroxyzine HCl (Hydroxyzine Hcl 25 Mg Tablet) 25 mg PO Q4H PRN PRN Reason: mild anxiety Last Admin: 10/15/24 21:18 Dose: 25 mg Magnesium Hydroxide (Milk Of Magnesia 30 Ml Oral.Susp) 30 ml PO DAILY PRN PRN Reason: Constipation Olanzapine (Olanzapine 2.5 Mg Tablet) 2.5 mg PO BID PRN PRN Reason: mod to severe anxiety Last Admin: 10/15/24 17:55 Dose: 2.5 mg Omeprazole (Omeprazole 20 Mg Capsule.Dr) 20 mg PO DAILY@0630 [facility] Last Admin: 10/16/24 05:42 Dose: 20 mg Trazodone HCl (Trazodone Hcl 50 Mg Tablet) 50 mg PO BEDTIME PRN PRN Reason: Insomnia Last Admin: 10/15/24 22:12 Dose: 50 mg Vortioxetine (Vortioxetine Hydrobromide 10 Mg Tablet) 10 mg PO DAILY [facility] Zolpidem Tartrate (Zolpidem Tartrate 5 Mg Tablet) 5 mg PO BEDTIME [facility] Last Admin: 10/15/24 21:17 Dose: 5 mg Allergies Allergies Allergy/AdvReac Type Severity Reaction Status Date / Time ciprofloxacin [From CIPRO] Allergy Unknown DIARRHEA Verified 09/30/24 10:57 Morpholine Analogues Allergy Unknown Unknown Verified 09/30/24 10:57 amoxicillin Allergy Nausea Verified 09/30/24 10:57 meperidine Allergy Unknown Verified 09/30/24 10:57 pollen extracts Allergy Unknown Verified 09/30/24 10:57 Assessment & Plan Assessment & Plan (1) Personality disorder: Status: Acute Code(s): F60.9 - Personality disorder, unspecified (2) Depression, major, severe recurrence: Status: Acute Code(s): F33.2 - Major depressive disorder, recurrent severe without psychotic features (3) Generalized anxiety disorder with panic attacks: Status: Acute Code(s): F41.1 - Generalized anxiety disorder; F41.0 - Panic disorder [episodic paroxysmal anxiety] Plan Mr. Smith is a 74 year-old trans female to male who self presented to [facility] reporting increased depression, suicidal ideation with plan to drown self in bathtub. He reports feelings of abandonment, helplessness, hopelessness, needing care from other. He reports this is in setting of his psychotherapist retiring in April. Unclear if this is the case. He also reports he was at [facility] for last 3 months. Will obtain records from [facility]. Pt signed NADYA. We discussed risks, benefits and alternative treatment options. continue current medications. PLAN 1. Admit to S1, CV, 15 minutes checks for safety 2. continue current medications- trintellix 20mg po daily, buspar 20mg po TID, clonazepam 0.5mg po BID, ambien prn for sleep. 3. obtain collateral information 5. after care plan- consider DBT programming. 10/03: very anxious. continue current regimen for now. 10/04: no change in presentation or plan. 10/05: Patient showered and ports he is extremely anxious about it however does not want any medication changes 10/06 patient remains very anxious; discussed medications and reviewed risks/side effects of Zyprexa which patient agrees to try -Zyprexa 2.5 mg 1 time dose -will make Zyprexa 2.5 mg as a p.r.n. and if effective primary team provider can schedule 10/07 continue tx. encourage behavioral plan to attend to one group a day. 10/08 continue tx. 10/09 plan to add rexulti 0.5mg po daily, boost effect of antidepressant. still waiting for records from [facility]. 10/10 started rexulti 0.5mg po daily to boost effect of antidepressant. 10/11 slightly brighter, still spends most of the time in bed. reports anxious mood.passive SI. added famotidine 20mg po daily. 10/12: continue current management and treatment plan. 10/13: continue current management and treatment plan. 10/14: continue current management and treatment plan. 10/15 we discussed switch from trintellix to maoi, wash out period needed before starting selegiline. will lower trintellix to 10mg po daily. change clonazepam to diazepam for anxiety. d/c buspar limited clinical efficacy. 10/16 will lower dose of trintellix 5mg po daily. There should be a 21 wash out period before starting MAOI. may start process here and step down to OP. continue diazepam. Reason for continued inpatient stay Substantial Risk for: inability to function Time Spent With Patient Time: Total time managing care of this patient today ____ minutes.
[2024-10-16 20:00] VITALS: BP 92/56; PULSE 90; RESP 18; TEMP 36.4; O2SAT 95
[2024-10-17 08:37] VITALS: BP 127/60; PULSE 87; RESP 16; TEMP 37.2; O2SAT 95
[2024-10-17 13:52] VITALS: BMI 27.4
--- NOTE | 2024-10-17 15:22 | HO.PSYCHPN ---
Subjective Subjective Date of Service: 10/17/24 Reason For Visit: si Subjective Notes: Conditional Voluntary Interim History: Pt slept through the night. Pt reports today has been a difficult day in that he feels very anxious. he reports water bill is due but does not want to call [employer]. 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 brainstorming to see if friend can help or staff can help but he declines. He reports he will take care of it once discharge. declined shower, did not attend group as we had talked about but was walking in the [place]. continues to present as helpless, hopeless. reports unable to care for himself and needing help. Medication Compliance: Yes Review of Systems Review of Systems Denies any shortness of breath, chest pain, dizziness, lightheadedness, abdominal pain or discomfort, nausea vomiting or diarrhea Mental Status Exam Mental Status Exam Narrative: Appearance: casually groomed, fair hygiene, appears quite anxious Behavior:cooperative. psychomotor:no agitation or retardation noted Speech:clear, normal rate/rhythm/volume, spontaneous Thought process:linear Thought content:no signs of psychosis, anxious Mood: very anxious Affect: constricted, hyper-intense, non-labile SI: intermittent thoughts of SI, drowning or self harm HI:none expressed VH/AH:none expressed Delusions:none expressed Insight/judgment:fair x 2. Memory/cog: alert, oriented x3. Diagnostics Vital Signs (24Hr): Vital Signs - 24 hr 10/16/24 20:00 10/17/24 08:37 Temperature 97.6 F 99.0 F Pulse Rate 90 87 Respiratory Rate 18 16 Blood Pressure 92/56 L 127/60 Pulse Oximetry 95 95 Oxygen Delivery Method Room Air Room Air BMI result Body Mass Index 27.4 Labs 10/18/24 07:58 10/18/24 07:58 Medications Medications Current Medications Acetaminophen (Acetaminophen 325 Mg Tablet) 650 mg PO Q6H PRN PRN Reason: Headache/Pain, Scale 1-10 Al Hydroxide/Mg Hydroxide (Magnesium Hydrox/Alum Hydrox 30 Ml Oral.Susp) 30 ml PO Q6H PRN PRN Reason: Heartburn/Nausea Brexpiprazole (Brexpiprazole 1 Mg Tablet) 0.5 mg PO DAILY [facility] Last Admin: 10/17/24 08:39 Dose: 0.5 mg Diazepam (Diazepam 2 Mg Tablet) 2 mg PO TID [facility] Last Admin: 10/17/24 08:41 Dose: 2 mg Famotidine (Famotidine 20 Mg Tablet) 20 mg PO DAILY [facility] Last Admin: 10/17/24 08:41 Dose: 20 mg Hydroxyzine HCl (Hydroxyzine Hcl 25 Mg Tablet) 25 mg PO Q4H PRN PRN Reason: mild anxiety Last Admin: 10/17/24 12:59 Dose: 25 mg Magnesium Hydroxide (Milk Of Magnesia 30 Ml Oral.Susp) 30 ml PO DAILY PRN PRN Reason: Constipation Olanzapine (Olanzapine 2.5 Mg Tablet) 2.5 mg PO BID PRN PRN Reason: mod to severe anxiety Last Admin: 10/17/24 09:09 Dose: 2.5 mg Omeprazole (Omeprazole 20 Mg Capsule.Dr) 20 mg PO DAILY@0630 [facility] Last Admin: 10/17/24 06:00 Dose: 20 mg Vortioxetine (Vortioxetine Hydrobromide 5 Mg Tablet) 5 mg PO DAILY [facility] Zolpidem Tartrate (Zolpidem Tartrate 5 Mg Tablet) 5 mg PO BEDTIME [facility] Last Admin: 10/16/24 20:55 Dose: 5 mg Allergies Allergies Allergy/AdvReac Type Severity Reaction Status Date / Time ciprofloxacin [From CIPRO] Allergy Unknown DIARRHEA Verified 09/30/24 10:57 Morpholine Analogues Allergy Unknown Unknown Verified 09/30/24 10:57 amoxicillin Allergy Nausea Verified 09/30/24 10:57 meperidine Allergy Unknown Verified 09/30/24 10:57 pollen extracts Allergy Unknown Verified 09/30/24 10:57 Assessment & Plan Assessment & Plan (1) Personality disorder: Status: Acute Code(s): F60.9 - Personality disorder, unspecified (2) Depression, major, severe recurrence: Status: Acute Code(s): F33.2 - Major depressive disorder, recurrent severe without psychotic features (3) Generalized anxiety disorder with panic attacks: Status: Acute Code(s): F41.1 - Generalized anxiety disorder; F41.0 - Panic disorder [episodic paroxysmal anxiety] Plan Mr. Smith is a 74 year-old trans female to male who self presented to [facility] reporting increased depression, suicidal ideation with plan to drown self in bathtub. He reports feelings of abandonment, helplessness, hopelessness, needing care from other. He reports this is in setting of his psychotherapist retiring in April. Unclear if this is the case. He also reports he was at [facility] for last 3 months. Will obtain records from [facility]. Pt signed NADYA. We discussed risks, benefits and alternative treatment options. continue current medications. PLAN 1. Admit to S1, CV, 15 minutes checks for safety 2. continue current medications- trintellix 20mg po daily, buspar 20mg po TID, clonazepam 0.5mg po BID, ambien prn for sleep. 3. obtain collateral information 5. after care plan- consider DBT programming. 10/03: very anxious. continue current regimen for now. 10/04: no change in presentation or plan. 10/05: Patient showered and ports he is extremely anxious about it however does not want any medication changes 10/06 patient remains very anxious; discussed medications and reviewed risks/side effects of Zyprexa which patient agrees to try -Zyprexa 2.5 mg 1 time dose -will make Zyprexa 2.5 mg as a p.r.n. and if effective primary team provider can schedule 10/07 continue tx. encourage behavioral plan to attend to one group a day. 10/08 continue tx. 10/09 plan to add rexulti 0.5mg po daily, boost effect of antidepressant. still waiting for records from [facility]. 10/10 started rexulti 0.5mg po daily to boost effect of antidepressant. 10/11 slightly brighter, still spends most of the time in bed. reports anxious mood.passive SI. added famotidine 20mg po daily. 10/12: continue current management and treatment plan. 10/13: continue current management and treatment plan. 10/14: continue current management and treatment plan. 10/15 we discussed switch from trintellix to maoi, wash out period needed before starting selegiline. will lower trintellix to 10mg po daily. change clonazepam to diazepam for anxiety. d/c buspar limited clinical efficacy. 10/16 will lower dose of trintellix 5mg po daily. There should be a 21 wash out period before starting MAOI. may start process here and step down to OP. continue diazepam. 10/17 continue tx. Reason for continued inpatient stay Substantial Risk for: inability to function Time Spent With Patient Time: Total time managing care of this patient today ____ minutes.
[2024-10-17 20:00] VITALS: BP 129/61; PULSE 79; RESP 16; TEMP 36.8; O2SAT 97
--- NOTE | 2024-10-18 05:21 | PM.EVENT ---
Event Note Date of Service: 10/18/24 Event Note: Pt is a 74-year-old transgender female to male with a history of severe recurrent depression, anxiety with panic attacks, dependent personality disorder, GERD, Rosie's disease,tracheal stenosis seen for complaint of abdomina; pain after eating. Pt states symptom is nonspecific, happens after most meals for the last week. Patient states no history of cholecystectomy. Patient denies any history of liver problems. Pt julito any associated N/V, diarrhea, constipation and has been having BM daily. Pt denies any hearburn, chest pain, SOB at rest. Pt denies loss of appetite or unexplained wt loss. Patient denies any burning or pain with urination.Patient denies any problems with swallowing or passing food through the esophagus.Pt does experience anxiety frequently. Per nursing staff, pt has somatic symptoms often. PE: S1-S2 RRR, no murmur, no JVD, lungs clear to auscultation bilaterally, abdomen soft nontender, not distended, no guarding or rebound tenderness noted on exam. Bowel sounds active throughout. No hepatomegaly. No evidence of hernia in the umbilicus or inguinal area. A/P Abdominal Pain associated with eating X1 week - Ordering CBC with diff, CMP and UA with reflex - If lab values returned abnormal further workup will be needed to include infectious disease workup versus diagnostic scan. No indication for KUB or diagnostic studies at this time. -Continue with milk of Mag p.r.n. -Will add omeprazole 20 mg p.o. daily, noting patient has history of GERD. This can be used for 28 days and stopped. Hospitalist will continue to follow to review labs and further assess patient as needed. If no acute findings found hospitalist will likely sign off. Time Spent With Patient Time: Total time managing care of this patient today ____ minutes.
--- NOTE | 2024-10-18 06:27 | PC.NURSE ---
Unable to provide urine sample at this time for UA.
[2024-10-18 08:23] LABS: Hematocrit 36.7 % (42.0-52.0); Hemoglobin 12.0 g/dl (14.0-18.0); Imm Gran Abs Auto 0.04 X10*3/uL (0.00-0.03); Imm Gran Pct Auto 0.5 % (0.0-0.4); Lymphocytes Absolute Auto 1.5 X10*3/uL (1.2-4.9); MANUAL DIFF FLAG NO; Mean Corpuscular HGB Conc 32.7 g/dl (31.0-36.0); Mean Corpuscular Hemoglobin 30.2 pg (27.0-33.0); Mean Corpuscular Volume 92.4 fL (80.0-98.0); NRBC Abs Auto 0.000 X10*3/uL (0.0-0.012); NRBC Pct Auto 0.0 /100WBC (0.0-0.2); Platelet Count 454 X10*3/uL (160-400); Red Blood Count 3.97 X10*6/uL (4.60-5.80); White Blood Count 8.1 X10*3/uL (4.8-10.8)
[2024-10-18 08:33] VITALS: BP 119/57; PULSE 102; RESP 18; TEMP 36.7; O2SAT 96
[2024-10-18] MEDS: Vortioxetine Hydrobromide 5 MG TABLET PO (08:35)
[2024-10-18 08:44] LABS: Alanine Aminotransferase 11 U/L (0-40); Albumin Level 3.8 g/dL (3.5-5.0); Anion Gap 13 (12-20); Aspartate Amino Transferase 23 U/L (5-37); Blood Urea Nitrogen 7 mg/dL (9-16); Calcium 9.5 mg/dL (8.4-10.2); Carbon Dioxide 24 mmol/L (22-29); Chloride 107 mmol/L (96-108); Creatinine Clr Calc Pharmacy 68.4; Estimated Glomerular Filt Rate > 60; Potassium 4.2 mmol/L (3.3-5.1); Sodium 140 mmol/L (135-145); Total Protein 6.4 g/dL (6.5-8.0)
[2024-10-18 08:54] LABS: Alkaline Phosphatase 128 U/L (39-117)
--- NOTE | 2024-10-18 11:40 | HO.PSYCHPN ---
Subjective Subjective Date of Service: 10/18/24 Reason For Visit: si Subjective Notes: Conditional Voluntary Interim History: Pt slept through the night. Pt continues to report that he feels depressed, hopeless. He reports feeling very anxious during the day. He denies SI/HI. However, continues to spend most of the time in his room. He reports is difficult to engage in groups. No psychosis. Discussed with Dr. Mc trial of anafranil, instead of selegiline as he may have to wait 21 days. Medication Compliance: Yes Review of Systems Review of Systems Denies any shortness of breath, chest pain, dizziness, lightheadedness, abdominal pain or discomfort, nausea vomiting or diarrhea Mental Status Exam Mental Status Exam Narrative: Appearance: casually groomed, fair hygiene, appears quite anxious Behavior:cooperative. psychomotor:no agitation or retardation noted Speech:clear, normal rate/rhythm/volume, spontaneous Thought process:linear Thought content:no signs of psychosis, anxious Mood: very anxious Affect: constricted, hyper-intense, non-labile SI: intermittent thoughts of SI, drowning or self harm HI:none expressed VH/AH:none expressed Delusions:none expressed Insight/judgment:fair x 2. Memory/cog: alert, oriented x3. Diagnostics Vital Signs (24Hr): Vital Signs - 24 hr 10/17/24 20:00 10/18/24 08:33 Temperature 98.2 F 98.1 F Pulse Rate 79 102 H Respiratory Rate 16 18 Blood Pressure 129/61 119/57 L Pulse Oximetry 97 96 Oxygen Delivery Method Room Air Room Air BMI result Body Mass Index 27.4 Labs 10/18/24 07:58 10/18/24 07:58 Labs: Laboratory Results - last 48 hr 10/18/24 07:58 WBC 8.1 RBC 3.97 L Hgb 12.0 L Hct 36.7 L MCV 92.4 MCH 30.2 MCHC 32.7 RDW 12.9 Plt Count 454 H D MPV 10.5 Immature Gran % (Auto) 0.5 H Neut % (Auto) 65.4 Lymph % (Auto) 17.9 L [place] % (Auto) 13.8 H Eos % (Auto) 1.9 Baso % (Auto) 0.5 Lymph # (Auto) 1.5 [place] # (Auto) 1.1 Eos # (Auto) 0.2 Baso # (Auto) 0.0 Abs Immat Gran (auto) 0.04 H Absolute Neuts (auto) 5.3 Absolute Nucleated RBC 0.000 Nucleated RBC % (auto) 0.0 Sodium 140 Potassium 4.2 Chloride 107 Carbon Dioxide 24 Anion Gap 13 BUN 7 L Creatinine 0.82 Estim Creat Clear Calc 68.4 Estimated GFR > 60 Random Glucose 137 H Calcium 9.5 D Total Bilirubin 0.3 AST 23 ALT 11 Alkaline Phosphatase 128 H Total Protein 6.4 L Albumin 3.8 Medications Medications Current Medications Acetaminophen (Acetaminophen 325 Mg Tablet) 650 mg PO Q6H PRN PRN Reason: Headache/Pain, Scale 1-10 Al Hydroxide/Mg Hydroxide (Magnesium Hydrox/Alum Hydrox 30 Ml Oral.Susp) 30 ml PO Q6H PRN PRN Reason: Heartburn/Nausea Brexpiprazole (Brexpiprazole 1 Mg Tablet) 0.5 mg PO DAILY [facility] Last Admin: 10/18/24 08:35 Dose: 0.5 mg Diazepam (Diazepam 2 Mg Tablet) 2 mg PO TID [facility] Last Admin: 10/18/24 08:36 Dose: 2 mg Famotidine (Famotidine 20 Mg Tablet) 20 mg PO DAILY [facility] Last Admin: 10/18/24 08:35 Dose: 20 mg Hydroxyzine HCl (Hydroxyzine Hcl 25 Mg Tablet) 25 mg PO Q4H PRN PRN Reason: mild anxiety Last Admin: 10/17/24 12:59 Dose: 25 mg Magnesium Hydroxide (Milk Of Magnesia 30 Ml Oral.Susp) 30 ml PO DAILY PRN PRN Reason: Constipation Olanzapine (Olanzapine 2.5 Mg Tablet) 2.5 mg PO BID PRN PRN Reason: mod to severe anxiety Last Admin: 10/18/24 08:36 Dose: 2.5 mg Omeprazole (Omeprazole 20 Mg Capsule.Dr) 20 mg PO DAILY@0630 [facility] Last Admin: 10/18/24 05:15 Dose: 20 mg Vortioxetine (Vortioxetine Hydrobromide 5 Mg Tablet) 5 mg PO DAILY [facility] Last Admin: 10/18/24 08:35 Dose: 5 mg Zolpidem Tartrate (Zolpidem Tartrate 5 Mg Tablet) 5 mg PO BEDTIME [facility] Last Admin: 10/17/24 20:04 Dose: 5 mg Allergies Allergies Allergy/AdvReac Type Severity Reaction Status Date / Time ciprofloxacin [From CIPRO] Allergy Unknown DIARRHEA Verified 09/30/24 10:57 Morpholine Analogues Allergy Unknown Unknown Verified 09/30/24 10:57 amoxicillin Allergy Nausea Verified 09/30/24 10:57 meperidine Allergy Unknown Verified 09/30/24 10:57 pollen extracts Allergy Unknown Verified 09/30/24 10:57 Assessment & Plan Assessment & Plan (1) Personality disorder: Status: Acute Code(s): F60.9 - Personality disorder, unspecified (2) Depression, major, severe recurrence: Status: Acute Code(s): F33.2 - Major depressive disorder, recurrent severe without psychotic features (3) Generalized anxiety disorder with panic attacks: Status: Acute Code(s): F41.1 - Generalized anxiety disorder; F41.0 - Panic disorder [episodic paroxysmal anxiety] Plan Mr. Smith is a 74 year-old trans female to male who self presented to [facility] reporting increased depression, suicidal ideation with plan to drown self in bathtub. He reports feelings of abandonment, helplessness, hopelessness, needing care from other. He reports this is in setting of his psychotherapist retiring in April. Unclear if this is the case. He also reports he was at [facility] for last 3 months. Will obtain records from [facility]. Pt signed NADYA. We discussed risks, benefits and alternative treatment options. continue current medications. PLAN 1. Admit to S1, CV, 15 minutes checks for safety 2. continue current medications- trintellix 20mg po daily, buspar 20mg po TID, clonazepam 0.5mg po BID, ambien prn for sleep. 3. obtain collateral information 5. after care plan- consider DBT programming. 10/03: very anxious. continue current regimen for now. 10/04: no change in presentation or plan. 10/05: Patient showered and ports he is extremely anxious about it however does not want any medication changes 10/06 patient remains very anxious; discussed medications and reviewed risks/side effects of Zyprexa which patient agrees to try -Zyprexa 2.5 mg 1 time dose -will make Zyprexa 2.5 mg as a p.r.n. and if effective primary team provider can schedule 10/07 continue tx. encourage behavioral plan to attend to one group a day. 10/08 continue tx. 10/09 plan to add rexulti 0.5mg po daily, boost effect of antidepressant. still waiting for records from [facility]. 10/10 started rexulti 0.5mg po daily to boost effect of antidepressant. 10/11 slightly brighter, still spends most of the time in bed. reports anxious mood.passive SI. added famotidine 20mg po daily. 10/12: continue current management and treatment plan. 10/13: continue current management and treatment plan. 10/14: continue current management and treatment plan. 10/15 we discussed switch from trintellix to maoi, wash out period needed before starting selegiline. will lower trintellix to 10mg po daily. change clonazepam to diazepam for anxiety. d/c buspar limited clinical efficacy. 10/16 will lower dose of trintellix 5mg po daily. There should be a 21 wash out period before starting MAOI. may start process here and step down to OP. continue diazepam. 10/17 continue tx. 10/18 start anafranil 25mg po qhs, increase olanzapine to 5mg po q6h prn severe anxiety. valium 5mg po TID, monitor over sedation. Reason for continued inpatient stay Substantial Risk for: inability to function Time Spent With Patient Time: Total time managing care of this patient today ____ minutes.
--- NOTE | 2024-10-18 12:47 | P.EN_ITS ---
Event Note Date of Service: 10/18/24 Event Note: Patient was seen overnight with reports of abdominal pain after eating, symptoms were noted to be nonspecific. Upon review of labs there is no anemia noted and chemistries within normal limits. Patient was started on omeprazole. Urinalysis not collected yet. Overall clinical picture is reassuring, vital signs in lab work within normal limits. No further investigation is warranted at this time. If symptoms do not improve or any new or concerning symptoms linn michel, notify medical team. Time Spent With Patient Time: Total time managing care of this patient today ____ minutes.
[2024-10-18 13:31] LABS: Appearance Urine Clear; Glucose Urine UA Negative (Negative); PH 7.0 (5.0-9.0); Specific Gravity - Urine <= 1.005 (1.005-1.025); UMIC TRIGGER UA YES
[2024-10-18 19:50] VITALS: BP 109/50; PULSE 72; RESP 16; TEMP 36.7; O2SAT 96
[2024-10-19 08:00] VITALS: BP 117/56; PULSE 99; RESP 18; TEMP 37.1; O2SAT 98
[2024-10-19] MEDS: Vortioxetine Hydrobromide 5 MG TABLET PO (09:48)
--- NOTE | 2024-10-19 17:36 | HO.PSYCHPN ---
Subjective Subjective Date of Service: 10/19/24 Reason For Visit: si Subjective Notes: Conditional Voluntary Interim History: Pt slept through the night. Pt reports anxious mood, not able to function, still stays most day in bed. No SI/HI. visible for meals. not socializing with peers. no behavioral concerns. Review of Systems Review of Systems Denies any shortness of breath, chest pain, dizziness, lightheadedness, abdominal pain or discomfort, nausea vomiting or diarrhea Mental Status Exam Mental Status Exam Narrative: Appearance: casually groomed, fair hygiene, appears quite anxious Behavior:cooperative. psychomotor:no agitation or retardation noted Speech:clear, normal rate/rhythm/volume, spontaneous Thought process:linear Thought content:no signs of psychosis, anxious Mood: very anxious Affect: constricted, hyper-intense, non-labile SI: intermittent thoughts of SI, drowning or self harm HI:none expressed VH/AH:none expressed Delusions:none expressed Insight/judgment:fair x 2. Memory/cog: alert, oriented x3. Diagnostics Vital Signs (24Hr): Vital Signs - 24 hr 10/18/24 19:50 10/19/24 08:00 Temperature 98.1 F 98.8 F Pulse Rate 72 99 Respiratory Rate 16 18 Blood Pressure 109/50 L 117/56 L Pulse Oximetry 96 98 Oxygen Delivery Method Room Air Room Air BMI result Body Mass Index 27.4 Labs 10/18/24 07:58 10/18/24 07:58 Labs: Laboratory Results - last 48 hr 10/18/24 10/18/24 07:58 13:20 WBC 8.1 RBC 3.97 L Hgb 12.0 L Hct 36.7 L MCV 92.4 MCH 30.2 MCHC 32.7 RDW 12.9 Plt Count 454 H D MPV 10.5 Immature Gran % (Auto) 0.5 H Neut % (Auto) 65.4 Lymph % (Auto) 17.9 L [place] % (Auto) 13.8 H Eos % (Auto) 1.9 Baso % (Auto) 0.5 Lymph # (Auto) 1.5 [place] # (Auto) 1.1 Eos # (Auto) 0.2 Baso # (Auto) 0.0 Abs Immat Gran (auto) 0.04 H Absolute Neuts (auto) 5.3 Absolute Nucleated RBC 0.000 Nucleated RBC % (auto) 0.0 Sodium 140 Potassium 4.2 Chloride 107 Carbon Dioxide 24 Anion Gap 13 BUN 7 L Creatinine 0.82 Estim Creat Clear Calc 68.4 Estimated GFR > 60 Random Glucose 137 H Calcium 9.5 D Total Bilirubin 0.3 AST 23 ALT 11 Alkaline Phosphatase 128 H Total Protein 6.4 L Albumin 3.8 Urine Color Yellow Urine Appearance Clear Urine pH 7.0 Ur Specific [place] <= 1.005 Urine Protein Negative Urine Glucose (UA) Negative Urine Ketones Negative Urine Blood Negative Urine Nitrite Negative Ur Leukocyte Esterase Trace H Urine RBC 0-2 Urine WBC 0-5 Ur Squamous Epith Cells 0-2 Urine Bacteria None Seen Hyaline Casts 0-2 Medications Medications Current Medications Acetaminophen (Acetaminophen 325 Mg Tablet) 650 mg PO Q6H PRN PRN Reason: Headache/Pain, Scale 1-10 Al Hydroxide/Mg Hydroxide (Magnesium Hydrox/Alum Hydrox 30 Ml Oral.Susp) 30 ml PO Q6H PRN PRN Reason: Heartburn/Nausea Brexpiprazole (Brexpiprazole 1 Mg Tablet) 1 mg PO DAILY [facility] Clomipramine HCl (Clomipramine Hcl 25 Mg Capsule) 25 mg PO BEDTIME [facility] Diazepam (Diazepam 5 Mg Tablet) 5 mg PO TID [facility] Famotidine (Famotidine 20 Mg Tablet) 20 mg PO DAILY [facility] Last Admin: 10/19/24 09:43 Dose: 20 mg Hydroxyzine HCl (Hydroxyzine Hcl 25 Mg Tablet) 25 mg PO Q4H PRN PRN Reason: mild anxiety Last Admin: 10/17/24 12:59 Dose: 25 mg Magnesium Hydroxide (Milk Of Magnesia 30 Ml Oral.Susp) 30 ml PO DAILY PRN PRN Reason: Constipation Olanzapine (Olanzapine 5 Mg Tablet) 5 mg PO Q6H PRN PRN Reason: mod to severe anxiety Omeprazole (Omeprazole 20 Mg Capsule.Dr) 20 mg PO DAILY@0630 [facility] Last Admin: 10/19/24 05:24 Dose: 20 mg Vortioxetine (Vortioxetine Hydrobromide 5 Mg Tablet) 5 mg PO DAILY [facility] Last Admin: 10/19/24 09:48 Dose: 5 mg Zolpidem Tartrate (Zolpidem Tartrate 5 Mg Tablet) 5 mg PO BEDTIME [facility] Last Admin: 10/18/24 19:51 Dose: 5 mg Allergies Allergies Allergy/AdvReac Type Severity Reaction Status Date / Time ciprofloxacin [From CIPRO] Allergy Unknown DIARRHEA Verified 09/30/24 10:57 Morpholine Analogues Allergy Unknown Unknown Verified 09/30/24 10:57 amoxicillin Allergy Nausea Verified 09/30/24 10:57 meperidine Allergy Unknown Verified 09/30/24 10:57 pollen extracts Allergy Unknown Verified 09/30/24 10:57 Assessment & Plan Assessment & Plan (1) Personality disorder: Status: Acute Code(s): F60.9 - Personality disorder, unspecified (2) Depression, major, severe recurrence: Status: Acute Code(s): F33.2 - Major depressive disorder, recurrent severe without psychotic features (3) Generalized anxiety disorder with panic attacks: Status: Acute Code(s): F41.1 - Generalized anxiety disorder; F41.0 - Panic disorder [episodic paroxysmal anxiety] Plan Mr. Smith is a 74 year-old trans female to male who self presented to [facility] reporting increased depression, suicidal ideation with plan to drown self in bathtub. He reports feelings of abandonment, helplessness, hopelessness, needing care from other. He reports this is in setting of his psychotherapist retiring in April. Unclear if this is the case. He also reports he was at [facility] for last 3 months. Will obtain records from [facility]. Pt signed NADYA. We discussed risks, benefits and alternative treatment options. continue current medications. PLAN 1. Admit to S1, CV, 15 minutes checks for safety 2. continue current medications- trintellix 20mg po daily, buspar 20mg po TID, clonazepam 0.5mg po BID, ambien prn for sleep. 3. obtain collateral information 5. after care plan- consider DBT programming. 10/03: very anxious. continue current regimen for now. 10/04: no change in presentation or plan. 10/05: Patient showered and ports he is extremely anxious about it however does not want any medication changes 10/06 patient remains very anxious; discussed medications and reviewed risks/side effects of Zyprexa which patient agrees to try -Zyprexa 2.5 mg 1 time dose -will make Zyprexa 2.5 mg as a p.r.n. and if effective primary team provider can schedule 10/07 continue tx. encourage behavioral plan to attend to one group a day. 10/08 continue tx. 10/09 plan to add rexulti 0.5mg po daily, boost effect of antidepressant. still waiting for records from [facility]. 10/10 started rexulti 0.5mg po daily to boost effect of antidepressant. 10/11 slightly brighter, still spends most of the time in bed. reports anxious mood.passive SI. added famotidine 20mg po daily. 10/12: continue current management and treatment plan. 10/13: continue current management and treatment plan. 10/14: continue current management and treatment plan. 10/15 we discussed switch from trintellix to maoi, wash out period needed before starting selegiline. will lower trintellix to 10mg po daily. change clonazepam to diazepam for anxiety. d/c buspar limited clinical efficacy. 10/16 will lower dose of trintellix 5mg po daily. There should be a 21 wash out period before starting MAOI. may start process here and step down to OP. continue diazepam. 10/17 continue tx. 10/18 start anafranil 25mg po qhs, increase olanzapine to 5mg po q6h prn severe anxiety. valium 5mg po TID, monitor over sedation. 10/19 continue tx. Reason for continued inpatient stay Substantial Risk for: inability to function Time Spent With Patient Time: Total time managing care of this patient today ____ minutes.
[2024-10-19 19:43] VITALS: BP 120/70; PULSE 76; RESP 16; TEMP 36.6; O2SAT 96
[2024-10-20 08:00] VITALS: BP 121/60; PULSE 92; RESP 18; TEMP 36.7; O2SAT 98
[2024-10-20] MEDS: Vortioxetine Hydrobromide 5 MG TABLET PO (08:26)
[2024-10-20 20:00] VITALS: BP 125/60; PULSE 86; TEMP 36.4; O2SAT 97
--- NOTE | 2024-10-20 21:45 | HO.PSYCHPN ---
Subjective Subjective Date of Service: 10/20/24 Reason For Visit: si Subjective Notes: Conditional Voluntary Interim History: Pt slept through the night. Pt reports anxious mood, not able to function, still stays most day in bed. He reports olanzapine has been more helpful at current dose. No SI/HI. visible for meals. not socializing with peers. no behavioral concerns. Review of Systems Review of Systems Denies any shortness of breath, chest pain, dizziness, lightheadedness, abdominal pain or discomfort, nausea vomiting or diarrhea Mental Status Exam Mental Status Exam Narrative: Appearance: casually groomed, fair hygiene, appears quite anxious Behavior:cooperative. psychomotor:no agitation or retardation noted Speech:clear, normal rate/rhythm/volume, spontaneous Thought process:linear Thought content:no signs of psychosis, anxious Mood: very anxious Affect: constricted, hyper-intense, non-labile SI: intermittent thoughts of SI, drowning or self harm HI:none expressed VH/AH:none expressed Delusions:none expressed Insight/judgment:fair x 2. Memory/cog: alert, oriented x3. Diagnostics Vital Signs (24Hr): Vital Signs - 24 hr 10/20/24 08:00 10/20/24 20:00 Temperature 98.1 F 97.5 F Pulse Rate 92 86 Respiratory Rate 18 Blood Pressure 121/60 125/60 Pulse Oximetry 98 97 Oxygen Delivery Method Room Air Room Air BMI result Body Mass Index 27.4 Labs 10/18/24 07:58 10/18/24 07:58 Medications Medications Current Medications Acetaminophen (Acetaminophen 325 Mg Tablet) 650 mg PO Q6H PRN PRN Reason: Headache/Pain, Scale 1-10 Al Hydroxide/Mg Hydroxide (Magnesium Hydrox/Alum Hydrox 30 Ml Oral.Susp) 30 ml PO Q6H PRN PRN Reason: Heartburn/Nausea Brexpiprazole (Brexpiprazole 1 Mg Tablet) 1 mg PO DAILY [facility] Last Admin: 10/20/24 08:26 Dose: 1 mg Clomipramine HCl (Clomipramine Hcl 25 Mg Capsule) 25 mg PO BEDTIME [facility] Last Admin: 10/20/24 21:01 Dose: 25 mg Diazepam (Diazepam 5 Mg Tablet) 5 mg PO TID [facility] Last Admin: 10/20/24 21:02 Dose: 5 mg Famotidine (Famotidine 20 Mg Tablet) 20 mg PO DAILY [facility] Last Admin: 10/20/24 08:26 Dose: 20 mg Hydroxyzine HCl (Hydroxyzine Hcl 25 Mg Tablet) 25 mg PO Q4H PRN PRN Reason: mild anxiety Last Admin: 10/17/24 12:59 Dose: 25 mg Magnesium Hydroxide (Milk Of Magnesia 30 Ml Oral.Susp) 30 ml PO DAILY PRN PRN Reason: Constipation Olanzapine (Olanzapine 5 Mg Tablet) 5 mg PO Q6H PRN PRN Reason: mod to severe anxiety Last Admin: 10/20/24 21:22 Dose: 5 mg Omeprazole (Omeprazole 20 Mg Capsule.Dr) 20 mg PO DAILY@0630 [facility] Last Admin: 10/20/24 05:50 Dose: 20 mg Vortioxetine (Vortioxetine Hydrobromide 5 Mg Tablet) 5 mg PO DAILY [facility] Last Admin: 10/20/24 08:26 Dose: 5 mg Zolpidem Tartrate (Zolpidem Tartrate 5 Mg Tablet) 5 mg PO BEDTIME [facility] Last Admin: 10/20/24 21:02 Dose: 5 mg Allergies Allergies Allergy/AdvReac Type Severity Reaction Status Date / Time ciprofloxacin [From CIPRO] Allergy Unknown DIARRHEA Verified 09/30/24 10:57 Morpholine Analogues Allergy Unknown Unknown Verified 09/30/24 10:57 amoxicillin Allergy Nausea Verified 09/30/24 10:57 meperidine Allergy Unknown Verified 09/30/24 10:57 pollen extracts Allergy Unknown Verified 09/30/24 10:57 Assessment & Plan Assessment & Plan (1) Personality disorder: Status: Acute Code(s): F60.9 - Personality disorder, unspecified (2) Depression, major, severe recurrence: Status: Acute Code(s): F33.2 - Major depressive disorder, recurrent severe without psychotic features (3) Generalized anxiety disorder with panic attacks: Status: Acute Code(s): F41.1 - Generalized anxiety disorder; F41.0 - Panic disorder [episodic paroxysmal anxiety] Plan Mr. Smith is a 74 year-old trans female to male who self presented to [facility] reporting increased depression, suicidal ideation with plan to drown self in bathtub. He reports feelings of abandonment, helplessness, hopelessness, needing care from other. He reports this is in setting of his psychotherapist retiring in April. Unclear if this is the case. He also reports he was at [facility] for last 3 months. Will obtain records from [facility]. Pt signed NADYA. We discussed risks, benefits and alternative treatment options. continue current medications. PLAN 1. Admit to S1, CV, 15 minutes checks for safety 2. continue current medications- trintellix 20mg po daily, buspar 20mg po TID, clonazepam 0.5mg po BID, ambien prn for sleep. 3. obtain collateral information 5. after care plan- consider DBT programming. 10/03: very anxious. continue current regimen for now. 10/04: no change in presentation or plan. 10/05: Patient showered and ports he is extremely anxious about it however does not want any medication changes 10/06 patient remains very anxious; discussed medications and reviewed risks/side effects of Zyprexa which patient agrees to try -Zyprexa 2.5 mg 1 time dose -will make Zyprexa 2.5 mg as a p.r.n. and if effective primary team provider can schedule 10/07 continue tx. encourage behavioral plan to attend to one group a day. 10/08 continue tx. 10/09 plan to add rexulti 0.5mg po daily, boost effect of antidepressant. still waiting for records from [facility]. 10/10 started rexulti 0.5mg po daily to boost effect of antidepressant. 10/11 slightly brighter, still spends most of the time in bed. reports anxious mood.passive SI. added famotidine 20mg po daily. 10/12: continue current management and treatment plan. 10/13: continue current management and treatment plan. 10/14: continue current management and treatment plan. 10/15 we discussed switch from trintellix to maoi, wash out period needed before starting selegiline. will lower trintellix to 10mg po daily. change clonazepam to diazepam for anxiety. d/c buspar limited clinical efficacy. 10/16 will lower dose of trintellix 5mg po daily. There should be a 21 wash out period before starting MAOI. may start process here and step down to OP. continue diazepam. 10/17 continue tx. 10/18 start anafranil 25mg po qhs, increase olanzapine to 5mg po q6h prn severe anxiety. valium 5mg po TID, monitor over sedation. 10/19 continue tx. 10/20 plan to increase anafranil. Reason for continued inpatient stay Substantial Risk for: inability to function Time Spent With Patient Time: Total time managing care of this patient today ____ minutes.
[2024-10-21 07:55] VITALS: BP 131/72; PULSE 91; RESP 18; TEMP 36.2; O2SAT 96
[2024-10-21] MEDS: Vortioxetine Hydrobromide 5 MG TABLET PO (08:19)
--- NOTE | 2024-10-21 11:12 | P.PNPSI_ITS ---
Subjective Subjective Date of Service: 10/21/24 Reason For Visit: si Subjective Notes: Conditional Voluntary Interim History: Pt slept through the night. Pt out of bed slightly more today but continues to report not being able to care for himself, feeling anxious. He has used prn olanzapine. He has not showed despite encouragement. reports passive SI, but less than before. taking medications. VS stable. Review of Systems Review of Systems Denies any shortness of breath, chest pain, dizziness, lightheadedness, abdominal pain or discomfort, nausea vomiting or diarrhea Mental Status Exam Mental Status Exam Narrative: Appearance: casually groomed, fair hygiene, appears quite anxious Behavior:cooperative. psychomotor:no agitation or retardation noted Speech:clear, normal rate/rhythm/volume, spontaneous Thought process:linear Thought content:no signs of psychosis, anxious Mood: very anxious Affect: constricted, hyper-intense, non-labile SI: intermittent thoughts of SI, drowning or self harm HI:none expressed VH/AH:none expressed Delusions:none expressed Insight/judgment:fair x 2. Memory/cog: alert, oriented x3. Diagnostics Vital Signs (24Hr): Vital Signs - 24 hr 10/20/24 20:00 10/21/24 07:55 Temperature 97.5 F 97.2 F Pulse Rate 86 91 Respiratory Rate 18 Blood Pressure 125/60 131/72 Pulse Oximetry 97 96 Oxygen Delivery Method Room Air Room Air BMI result Body Mass Index 27.4 Labs 10/18/24 07:58 10/18/24 07:58 Medications Medications Current Medications Acetaminophen (Acetaminophen 325 Mg Tablet) 650 mg PO Q6H PRN PRN Reason: Headache/Pain, Scale 1-10 Al Hydroxide/Mg Hydroxide (Magnesium Hydrox/Alum Hydrox 30 Ml Oral.Susp) 30 ml PO Q6H PRN PRN Reason: Heartburn/Nausea Brexpiprazole (Brexpiprazole 1 Mg Tablet) 1 mg PO DAILY [facility] Last Admin: 10/21/24 08:19 Dose: 1 mg Clomipramine HCl (Clomipramine Hcl 25 Mg Capsule) 25 mg PO BEDTIME [facility] Last Admin: 10/20/24 21:01 Dose: 25 mg Diazepam (Diazepam 5 Mg Tablet) 5 mg PO TID [facility] Last Admin: 10/21/24 08:19 Dose: 5 mg Famotidine (Famotidine 20 Mg Tablet) 20 mg PO DAILY [facility] Last Admin: 10/21/24 08:19 Dose: 20 mg Hydroxyzine HCl (Hydroxyzine Hcl 25 Mg Tablet) 25 mg PO Q4H PRN PRN Reason: mild anxiety Last Admin: 10/17/24 12:59 Dose: 25 mg Magnesium Hydroxide (Milk Of Magnesia 30 Ml Oral.Susp) 30 ml PO DAILY PRN PRN Reason: Constipation Olanzapine (Olanzapine 5 Mg Tablet) 5 mg PO Q6H PRN PRN Reason: mod to severe anxiety Last Admin: 10/21/24 08:23 Dose: 5 mg Omeprazole (Omeprazole 20 Mg Capsule.Dr) 20 mg PO DAILY@0630 [facility] Last Admin: 10/21/24 05:41 Dose: 20 mg Vortioxetine (Vortioxetine Hydrobromide 5 Mg Tablet) 5 mg PO DAILY [facility] Last Admin: 10/21/24 08:19 Dose: 5 mg Zolpidem Tartrate (Zolpidem Tartrate 5 Mg Tablet) 5 mg PO BEDTIME [facility] Last Admin: 10/20/24 21:02 Dose: 5 mg Allergies Allergies Allergy/AdvReac Type Severity Reaction Status Date / Time ciprofloxacin [From CIPRO] Allergy Unknown DIARRHEA Verified 09/30/24 10:57 Morpholine Analogues Allergy Unknown Unknown Verified 09/30/24 10:57 amoxicillin Allergy Nausea Verified 09/30/24 10:57 meperidine Allergy Unknown Verified 09/30/24 10:57 pollen extracts Allergy Unknown Verified 09/30/24 10:57 Assessment & Plan Assessment & Plan (1) Personality disorder: Status: Acute Code(s): F60.9 - Personality disorder, unspecified (2) Depression, major, severe recurrence: Status: Acute Code(s): F33.2 - Major depressive disorder, recurrent severe without psychotic features (3) Generalized anxiety disorder with panic attacks: Status: Acute Code(s): F41.1 - Generalized anxiety disorder; F41.0 - Panic disorder [episodic paroxysmal anxiety] Plan Mr. Smith is a 74 year-old trans female to male who self presented [place] [facility] reporting increased depression, suicidal ideation with plan to drown self in bathtub. He reports feelings of abandonment, helplessness, hopelessness, needing care from other. He reports this is in setting of his psychotherapist retiring in April. Unclear if this is the case. He also reports he was at [facility] for last 3 months. Will obtain records from [facility]. Pt signed NADYA. We discussed risks, benefits and alternative treatment options. continue current medications. PLAN 1. Admit to S1, CV, 15 minutes checks for safety 2. continue current medications- trintellix 20mg po daily, buspar 20mg po TID, clonazepam 0.5mg po BID, ambien prn for sleep. 3. obtain collateral information 5. after care plan- consider DBT programming. 10/03: very anxious. continue current regimen for now. 10/04: no change in presentation or plan. 10/05: Patient showered and ports he is extremely anxious about it however does not want any medication changes 10/06 patient remains very anxious; discussed medications and reviewed risks/side effects of Zyprexa which patient agrees to try -Zyprexa 2.5 mg 1 time dose -will make Zyprexa 2.5 mg as a p.r.n. and if effective primary team provider can schedule 10/07 continue tx. encourage behavioral plan to attend to one group a day. 10/08 continue tx. 10/09 plan to add rexulti 0.5mg po daily, boost effect of antidepressant. still waiting for records from [facility]. 10/10 started rexulti 0.5mg po daily to boost effect of antidepressant. 10/11 slightly brighter, still spends most of the time in bed. reports anxious mood.passive SI. added famotidine 20mg po daily. 10/12: continue current management and treatment plan. 10/13: continue current management and treatment plan. 10/14: continue current management and treatment plan. 10/15 we discussed switch from trintellix to maoi, wash out period needed before starting selegiline. will lower trintellix to 10mg po daily. change clonazepam to diazepam for anxiety. d/c buspar limited clinical efficacy. 10/16 will lower dose of trintellix 5mg po daily. There should be a 21 wash out period before starting MAOI. may start process here and step down to OP. continue diazepam. 10/17 continue tx. 10/18 start anafranil 25mg po qhs, increase olanzapine to 5mg po q6h prn severe anxiety. valium 5mg po TID, monitor over sedation. 10/19 continue tx. 10/20 plan to increase anafranil. 10/21 continue tx. 10/22 increase anafranil to 50mg po qhs. continue olanzapine and valium. continue trintellix 5mg po daily with plan to d/c. Reason for continued inpatient stay Substantial Risk for: harm to self and inability to function Time Spent With Patient Time: Total time managing care of this patient today ____ minutes.
[2024-10-21 19:46] VITALS: BP 119/56; PULSE 71; RESP 16; TEMP 36.4; O2SAT 96
[2024-10-22 07:55] VITALS: BP 128/66; PULSE 82; RESP 18; TEMP 36.6; O2SAT 97
[2024-10-22] MEDS: Vortioxetine Hydrobromide 5 MG TABLET PO (08:16)
--- NOTE | 2024-10-22 16:51 | HO.PSYCHPN ---
Subjective Subjective Date of Service: 10/22/24 Reason For Visit: si Subjective Notes: Conditional Voluntary Interim History: Pt more visible on the unit and attending more groups. He continues to report he is anxious and does ask for olanzapine round the clock. He reports less intrusive thoughts usually with wish to . No PSychosis or delusions. Sleeping and eating well. will continue titration of anafranil, and d/c trintellix. Review of Systems Review of Systems Denies Mental Status Exam Mental Status Exam Narrative: Appearance: casually groomed, fair hygiene, appears quite anxious Behavior:cooperative. psychomotor:no agitation or retardation noted Speech:clear, normal rate/rhythm/volume, spontaneous Thought process:linear Thought content:no signs of psychosis, anxious Mood: very anxious Affect: constricted, hyper-intense, non-labile SI: intermittent thoughts of SI, drowning or self harm HI:none expressed VH/AH:none expressed Delusions:none expressed Insight/judgment:fair x 2. Memory/cog: alert, oriented x3. Diagnostics Vital Signs (24Hr): Vital Signs - 24 hr 10/21/24 19:46 10/22/24 07:55 Temperature 97.5 F 97.9 F Pulse Rate 71 82 Respiratory Rate 16 18 Blood Pressure 119/56 L 128/66 Pulse Oximetry 96 97 Oxygen Delivery Method Room Air Room Air BMI result Body Mass Index 27.4 Labs 10/18/24 07:58 10/18/24 07:58 Medications Medications Current Medications Acetaminophen (Acetaminophen 325 Mg Tablet) 650 mg PO Q6H PRN PRN Reason: Headache/Pain, Scale 1-10 Al Hydroxide/Mg Hydroxide (Magnesium Hydrox/Alum Hydrox 30 Ml Oral.Susp) 30 ml PO Q6H PRN PRN Reason: Heartburn/Nausea Brexpiprazole (Brexpiprazole 1 Mg Tablet) 1 mg PO DAILY [facility] Last Admin: 10/22/24 08:16 Dose: 1 mg Clomipramine HCl (Clomipramine Hcl 25 Mg Capsule) 50 mg PO BEDTIME SAL Diazepam (Diazepam 5 Mg Tablet) 5 mg PO TID [facility] Last Admin: 10/22/24 14:47 Dose: 5 mg Famotidine (Famotidine 20 Mg Tablet) 20 mg PO DAILY [facility] Last Admin: 10/22/24 08:16 Dose: 20 mg Hydroxyzine HCl (Hydroxyzine Hcl 25 Mg Tablet) 25 mg PO Q4H PRN PRN Reason: mild anxiety Last Admin: 10/17/24 12:59 Dose: 25 mg Magnesium Hydroxide (Milk Of Magnesia 30 Ml Oral.Susp) 30 ml PO DAILY PRN PRN Reason: Constipation Olanzapine (Olanzapine 5 Mg Tablet) 5 mg PO Q6H PRN PRN Reason: mod to severe anxiety Last Admin: 10/22/24 14:47 Dose: 5 mg Omeprazole (Omeprazole 20 Mg Capsule.Dr) 20 mg PO DAILY@0630 [facility] Last Admin: 10/22/24 05:23 Dose: 20 mg Vortioxetine (Vortioxetine Hydrobromide 5 Mg Tablet) 5 mg PO DAILY [facility] Last Admin: 10/22/24 08:16 Dose: 5 mg Zolpidem Tartrate (Zolpidem Tartrate 5 Mg Tablet) 5 mg PO BEDTIME [facility] Last Admin: 10/21/24 19:48 Dose: 5 mg Allergies Allergies Allergy/AdvReac Type Severity Reaction Status Date / Time ciprofloxacin [From CIPRO] Allergy Unknown DIARRHEA Verified 09/30/24 10:57 Morpholine Analogues Allergy Unknown Unknown Verified 09/30/24 10:57 amoxicillin Allergy Nausea Verified 09/30/24 10:57 meperidine Allergy Unknown Verified 09/30/24 10:57 pollen extracts Allergy Unknown Verified 09/30/24 10:57 Assessment & Plan Assessment & Plan (1) Personality disorder: Status: Acute Code(s): F60.9 - Personality disorder, unspecified (2) Depression, major, severe recurrence: Status: Acute Code(s): F33.2 - Major depressive disorder, recurrent severe without psychotic features (3) Generalized anxiety disorder with panic attacks: Status: Acute Code(s): F41.1 - Generalized anxiety disorder; F41.0 - Panic disorder [episodic paroxysmal anxiety] Plan Mr. Smith is a 74 year-old trans female to male who self presented to [facility] reporting increased depression, suicidal ideation with plan to drown self in bathtub. He reports feelings of abandonment, helplessness, hopelessness, needing care from other. He reports this is in setting of his psychotherapist retiring in April. Unclear if this is the case. He also reports he was at [facility] for last 3 months. Will obtain records from [facility]. Pt signed NADYA. We discussed risks, benefits and alternative treatment options. continue current medications. PLAN 1. Admit to S1, CV, 15 minutes checks for safety 2. continue current medications- trintellix 20mg po daily, buspar 20mg po TID, clonazepam 0.5mg po BID, ambien prn for sleep. 3. obtain collateral information 5. after care plan- consider DBT programming. 10/03: very anxious. continue current regimen for now. 10/04: no change in presentation or plan. 10/05: Patient showered and ports he is extremely anxious about it however does not want any medication changes 10/06 patient remains very anxious; discussed medications and reviewed risks/side effects of Zyprexa which patient agrees to try -Zyprexa 2.5 mg 1 time dose -will make Zyprexa 2.5 mg as a p.r.n. and if effective primary team provider can schedule 10/07 continue tx. encourage behavioral plan to attend to one group a day. 10/08 continue tx. 10/09 plan to add rexulti 0.5mg po daily, boost effect of antidepressant. still waiting for records from [facility]. 10/10 started rexulti 0.5mg po daily to boost effect of antidepressant. 10/11 slightly brighter, still spends most of the time in bed. reports anxious mood.passive SI. added famotidine 20mg po daily. 10/12: continue current management and treatment plan. 10/13: continue current management and treatment plan. 10/14: continue current management and treatment plan. 10/15 we discussed switch from trintellix to maoi, wash out period needed before starting selegiline. will lower trintellix to 10mg po daily. change clonazepam to diazepam for anxiety. d/c buspar limited clinical efficacy. 10/16 will lower dose of trintellix 5mg po daily. There should be a 21 wash out period before starting MAOI. may start process here and step down to OP. continue diazepam. 10/17 continue tx. 10/18 start anafranil 25mg po qhs, increase olanzapine to 5mg po q6h prn severe anxiety. valium 5mg po TID, monitor over sedation. 10/19 continue tx. 10/20 plan to increase anafranil. 10/21 continue tx. 10/22 increase anafranil to 50mg po qhs. continue olanzapine and valium. continue trintellix 5mg po daily with plan to d/c. Reason for continued inpatient stay Substantial Risk for: inability to function Time Spent With Patient Time: Total time managing care of this patient today ____ minutes.
[2024-10-22 19:49] VITALS: BP 112/64; PULSE 77; RESP 14; TEMP 36.6; O2SAT 97
[2024-10-23 07:55] VITALS: BP 125/73; PULSE 94; RESP 18; TEMP 36.7; O2SAT 96
[2024-10-23] MEDS: Vortioxetine Hydrobromide 5 MG TABLET PO (08:21)
--- NOTE | 2024-10-23 12:47 | P.PNPSI_ITS ---
Subjective Subjective Date of Service: 10/23/24 Reason For Visit: si Interim History: Pt seen and reviewed with his team. He reports feeling well. Team reports he appears brighter and future oriented. He is active and engaged in the milieu, tolerating anafranil increase, however does report dry mouth yet declines prn mouth spray. Sleep/Appetite he reports are intact. Team notes he is using Olanzapine q 6 hours prn on schedule-they ask to schedule this-will defer to primary team on this. Medication Compliance: Yes Side effects from medications: Yes (dry mouth) Attending Groups: Yes Review of Systems Acute medical concerns: No Review of Systems Review of Systems Denies Mental Status Exam Mental Status Exam Patient Appearance: Appropriate Patient Orientation: Person, Place and Situation Level of Consciousness: Alert Patient Behavior: Appropriate, Talkative, Cooperative and Good Eye Contact Mood Description: Constricted Affect Description: Constricted Patient Cognition Impaired: No Ability to Follow Directions: Good Speech Pattern: Spontaneous Speech Memory Description: Intact Hallucinations: None Delusions: Not Present Thought Process: Distracted Thought Content: positive for [place] and positive for Suicidal Ideation (denies) Judgement: Fair Diagnostics Vital Signs (24Hr): Vital Signs - 24 hr 10/22/24 19:49 10/23/24 07:55 Temperature 97.9 F 98.1 F Pulse Rate 77 94 Respiratory Rate 14 18 Blood Pressure 112/64 125/73 Pulse Oximetry 97 96 Oxygen Delivery Method Room Air Room Air BMI result Body Mass Index 27.4 Labs 10/18/24 07:58 10/18/24 07:58 Medications Medications Current Medications Acetaminophen (Acetaminophen 325 Mg Tablet) 650 mg PO Q6H PRN PRN Reason: Headache/Pain, Scale 1-10 Al Hydroxide/Mg Hydroxide (Magnesium Hydrox/Alum Hydrox 30 Ml Oral.Susp) 30 ml PO Q6H PRN PRN Reason: Heartburn/Nausea Brexpiprazole (Brexpiprazole 1 Mg Tablet) 1 mg PO DAILY [facility] Last Admin: 10/23/24 08:21 Dose: 1 mg Clomipramine HCl (Clomipramine Hcl 25 Mg Capsule) 50 mg PO BEDTIME [facility] Last Admin: 10/22/24 19:51 Dose: 50 mg Diazepam (Diazepam 5 Mg Tablet) 5 mg PO TID [facility] Last Admin: 10/23/24 10:00 Dose: Not Given Famotidine (Famotidine 20 Mg Tablet) 20 mg PO DAILY [facility] Last Admin: 10/23/24 08:21 Dose: 20 mg Hydroxyzine HCl (Hydroxyzine Hcl 25 Mg Tablet) 25 mg PO Q4H PRN PRN Reason: mild anxiety Last Admin: 10/17/24 12:59 Dose: 25 mg Magnesium Hydroxide (Milk Of Magnesia 30 Ml Oral.Susp) 30 ml PO DAILY PRN PRN Reason: Constipation Olanzapine (Olanzapine 5 Mg Tablet) 5 mg PO Q6H PRN PRN Reason: mod to severe anxiety Last Admin: 10/23/24 08:21 Dose: 5 mg Omeprazole (Omeprazole 20 Mg Capsule.Dr) 20 mg PO DAILY@0630 [facility] Last Admin: 10/23/24 05:11 Dose: 20 mg Vortioxetine (Vortioxetine Hydrobromide 5 Mg Tablet) 5 mg PO DAILY [facility] Last Admin: 10/23/24 08:21 Dose: 5 mg Zolpidem Tartrate (Zolpidem Tartrate 5 Mg Tablet) 5 mg PO BEDTIME [facility] Last Admin: 10/22/24 19:51 Dose: 5 mg Allergies Allergies Allergy/AdvReac Type Severity Reaction Status Date / Time ciprofloxacin [From CIPRO] Allergy Unknown DIARRHEA Verified 09/30/24 10:57 Morpholine Analogues Allergy Unknown Unknown Verified 09/30/24 10:57 amoxicillin Allergy Nausea Verified 09/30/24 10:57 meperidine Allergy Unknown Verified 09/30/24 10:57 pollen extracts Allergy Unknown Verified 09/30/24 10:57 Assessment & Plan Assessment & Plan (1) Personality disorder: Status: Acute Code(s): F60.9 - Personality disorder, unspecified (2) Depression, major, severe recurrence: Status: Acute Code(s): F33.2 - Major depressive disorder, recurrent severe without psychotic features (3) Generalized anxiety disorder with panic attacks: Status: Acute Code(s): F41.1 - Generalized anxiety disorder; F41.0 - Panic disorder [episodic paroxysmal anxiety] Plan Mr. Smith is a 74 year-old trans female to male who self presented to [facility] reporting increased depression, suicidal ideation with plan to drown self in bathtub. He reports feelings of abandonment, helplessness, hopelessness, needing care from other. He reports this is in setting of his psychotherapist retiring in April. Unclear if this is the case. He also reports he was at [facility] for last 3 months. Will obtain records from [facility]. Pt signed NADYA. We discussed risks, benefits and alternative treatment options. continue current medications. PLAN 1. Admit to S1, CV, 15 minutes checks for safety 2. continue current medications- trintellix 20mg po daily, buspar 20mg po TID, clonazepam 0.5mg po BID, ambien prn for sleep. 3. obtain collateral information 5. after care plan- consider DBT programming. 10/03: very anxious. continue current regimen for now. 10/04: no change in presentation or plan. 10/05: Patient showered and ports he is extremely anxious about it however does not want any medication changes 10/06 patient remains very anxious; discussed medications and reviewed risks/side effects of Zyprexa which patient agrees to try -Zyprexa 2.5 mg 1 time dose -will make Zyprexa 2.5 mg as a p.r.n. and if effective primary team provider can schedule 10/07 continue tx. encourage behavioral plan to attend to one group a day. 10/08 continue tx. 10/09 plan to add rexulti 0.5mg po daily, boost effect of antidepressant. still waiting for records from [facility]. 10/10 started rexulti 0.5mg po daily to boost effect of antidepressant. 10/11 slightly brighter, still spends most of the time in bed. reports anxious mood.passive SI. added famotidine 20mg po daily. 10/12: continue current management and treatment plan. 10/13: continue current management and treatment plan. 10/14: continue current management and treatment plan. 10/15 we discussed switch from trintellix to maoi, wash out period needed before starting selegiline. will lower trintellix to 10mg po daily. change clonazepam to diazepam for anxiety. d/c buspar limited clinical efficacy. 10/16 will lower dose of trintellix 5mg po daily. There should be a 21 wash out period before starting MAOI. may start process here and step down to OP. continue diazepam. 10/17 continue tx. 10/18 start anafranil 25mg po qhs, increase olanzapine to 5mg po q6h prn severe anxiety. valium 5mg po TID, monitor over sedation. 5/31 continue tx. 10/20 plan to increase anafranil. 10/21 continue tx. 10/22 increase anafranil to 50mg po qhs. continue olanzapine and valium. continue trintellix 5mg po daily with plan to d/c. 10/23 continue tx Reason for continued inpatient stay Substantial Risk for: rapid decompensation Time Spent With Patient Time: Total time managing care of this patient today ____ minutes.
[2024-10-23 20:00] VITALS: BP 116/59; PULSE 70; RESP 18; TEMP 36.6; O2SAT 95
[2024-10-24 08:00] VITALS: BP 102/58; PULSE 84; RESP 18; TEMP 36.8; O2SAT 98
[2024-10-24] MEDS: Vortioxetine Hydrobromide 5 MG TABLET PO (08:52)
--- NOTE | 2024-10-24 12:23 | P.PNPSI_ITS ---
Subjective Subjective Date of Service: 10/24/24 Reason For Visit: si Subjective Notes: Conditional Voluntary Interim History: Pt sleeping through the night. He has been more visible on the unit and attending more groups. He reports less rumination about things he has to take care at home and still not able to do so. He reports slightly less anxiety but comes and goes. No behavioral concerns. encouraged to get out of bed and attend groups. Medication Compliance: Yes Diagnostics Vital Signs (24Hr): Vital Signs - 24 hr 10/23/24 20:00 10/24/24 08:00 Temperature 97.9 F 98.2 F Pulse Rate 70 84 Respiratory Rate 18 18 Blood Pressure 116/59 L 102/58 L Pulse Oximetry 95 98 Oxygen Delivery Method Room Air Room Air BMI result Body Mass Index 27.4 Labs 10/18/24 07:58 10/18/24 07:58 Medications Medications Current Medications Acetaminophen (Acetaminophen 325 Mg Tablet) 650 mg PO Q6H PRN PRN Reason: Headache/Pain, Scale 1-10 Al Hydroxide/Mg Hydroxide (Magnesium Hydrox/Alum Hydrox 30 Ml Oral.Susp) 30 ml PO Q6H PRN PRN Reason: Heartburn/Nausea Brexpiprazole (Brexpiprazole 1 Mg Tablet) 1 mg PO DAILY [facility] Last Admin: 10/24/24 08:52 Dose: 1 mg Clomipramine HCl (Clomipramine Hcl 25 Mg Capsule) 50 mg PO BEDTIME [facility] Last Admin: 10/23/24 21:09 Dose: 50 mg Diazepam (Diazepam 5 Mg Tablet) 5 mg PO TID [facility] Last Admin: 10/24/24 08:52 Dose: 5 mg Famotidine (Famotidine 20 Mg Tablet) 20 mg PO DAILY [facility] Last Admin: 10/24/24 08:52 Dose: 20 mg Hydroxyzine HCl (Hydroxyzine Hcl 25 Mg Tablet) 25 mg PO Q4H PRN PRN Reason: mild anxiety Last Admin: 10/17/24 12:59 Dose: 25 mg Magnesium Hydroxide (Milk Of Magnesia 30 Ml Oral.Susp) 30 ml PO DAILY PRN PRN Reason: Constipation Olanzapine (Olanzapine 5 Mg Tablet) 5 mg PO Q6H PRN PRN Reason: mod to severe anxiety Last Admin: 10/24/24 12:17 Dose: 5 mg Omeprazole (Omeprazole 20 Mg Capsule.Dr) 20 mg PO DAILY@0630 [facility] Last Admin: 10/24/24 06:06 Dose: 20 mg Vortioxetine (Vortioxetine Hydrobromide 5 Mg Tablet) 5 mg PO DAILY [facility] Last Admin: 10/24/24 08:52 Dose: 5 mg Zolpidem Tartrate (Zolpidem Tartrate 5 Mg Tablet) 5 mg PO BEDTIME [facility] Last Admin: 10/23/24 21:09 Dose: 5 mg Allergies Allergies Allergy/AdvReac Type Severity Reaction Status Date / Time ciprofloxacin [From CIPRO] Allergy Unknown DIARRHEA Verified 09/30/24 10:57 Morpholine Analogues Allergy Unknown Unknown Verified 09/30/24 10:57 amoxicillin Allergy Nausea Verified 09/30/24 10:57 meperidine Allergy Unknown Verified 09/30/24 10:57 pollen extracts Allergy Unknown Verified 09/30/24 10:57 Assessment & Plan Assessment & Plan (1) Personality disorder: Status: Acute Code(s): F60.9 - Personality disorder, unspecified (2) Depression, major, severe recurrence: Status: Acute Code(s): F33.2 - Major depressive disorder, recurrent severe without psychotic features (3) Generalized anxiety disorder with panic attacks: Status: Acute Code(s): F41.1 - Generalized anxiety disorder; F41.0 - Panic disorder [episodic paroxysmal anxiety] Plan Mr. Smith is a 74 year-old trans female to male who self presented to [facility] reporting increased depression, suicidal ideation with plan to drown self in bathtub. He reports feelings of abandonment, helplessness, hopelessness, needing care from other. He reports this is in setting of his psychotherapist retiring in April. Unclear if this is the case. He also reports he was at [facility] for last 3 months. Will obtain records from [facility]. Pt signed NADYA. We discussed risks, benefits and alternative treatment options. continue current medications. PLAN 1. Admit to S1, CV, 15 minutes checks for safety 2. continue current medications- trintellix 20mg po daily, buspar 20mg po TID, clonazepam 0.5mg po BID, ambien prn for sleep. 3. obtain collateral information 5. after care plan- consider DBT programming. 10/03: very anxious. continue current regimen for now. 10/04: no change in presentation or plan. 10/05: Patient showered and ports he is extremely anxious about it however does not want any medication changes 10/06 patient remains very anxious; discussed medications and reviewed risks/side effects of Zyprexa which patient agrees to try -Zyprexa 2.5 mg 1 time dose -will make Zyprexa 2.5 mg as a p.r.n. and if effective primary team provider can schedule 10/07 continue tx. encourage behavioral plan to attend to one group a day. 10/08 continue tx. 10/09 plan to add rexulti 0.5mg po daily, boost effect of antidepressant. still waiting for records from [facility]. 10/10 started rexulti 0.5mg po daily to boost effect of antidepressant. 10/11 slightly brighter, still spends most of the time in bed. reports anxious mood.passive SI. added famotidine 20mg po daily. 10/12: continue current management and treatment plan. 10/13: continue current management and treatment plan. 10/14: continue current management and treatment plan. 10/15 we discussed switch from trintellix to maoi, wash out period needed before starting selegiline. will lower trintellix to 10mg po daily. change clonazepam to diazepam for anxiety. d/c buspar limited clinical efficacy. 10/16 will lower dose of trintellix 5mg po daily. There should be a 21 wash out period before starting MAOI. may start process here and step down to OP. continue diazepam. 10/17 continue tx. 10/18 start anafranil 25mg po qhs, increase olanzapine to 5mg po q6h prn severe anxiety. valium 5mg po TID, monitor over sedation. 10/19 continue tx. 10/20 plan to increase anafranil. 10/21 continue tx. 10/22 increase anafranil to 50mg po qhs. continue olanzapine and valium. continue trintellix 5mg po daily with plan to d/c. 10/23 continue tx 10/24 increase anafranil to 100mg po qhs. d/c trintellix. decrease valium to 2mg po TID Reason for continued inpatient stay Substantial Risk for: inability to function Time Spent With Patient Time: Total time managing care of this patient today ____ minutes.
[2024-10-24 13:57] VITALS: BMI 27.4
[2024-10-24 19:49] VITALS: BP 132/69; PULSE 86; TEMP 36.8; O2SAT 96
[2024-10-25 08:00] VITALS: BP 122/60; PULSE 78; RESP 18; TEMP 36.5; O2SAT 96
--- NOTE | 2024-10-25 10:49 | HO.PSYCHPN ---
Subjective Subjective Date of Service: 10/25/24 Reason For Visit: si Subjective Notes: Conditional Voluntary Interim History: Pt slept through the night. Pt reports feeling less anxious, was able to participate in groups today and more consistently in the past few days. He reports less intrusive thoughts of and dying. He does report anxious mood, thinks some slight improvement. No behavioral concerns. Diagnostics Vital Signs (24Hr): Vital Signs - 24 hr 10/24/24 19:49 Temperature 98.2 F Pulse Rate 86 Blood Pressure 132/69 Pulse Oximetry 96 Oxygen Delivery Method Room Air BMI result Body Mass Index 27.4 Labs 10/18/24 07:58 10/18/24 07:58 Medications Medications Current Medications Acetaminophen (Acetaminophen 325 Mg Tablet) 650 mg PO Q6H PRN PRN Reason: Headache/Pain, Scale 1-10 Al Hydroxide/Mg Hydroxide (Magnesium Hydrox/Alum Hydrox 30 Ml Oral.Susp) 30 ml PO Q6H PRN PRN Reason: Heartburn/Nausea Brexpiprazole (Brexpiprazole 1 Mg Tablet) 1 mg PO DAILY [facility] Last Admin: 10/25/24 08:55 Dose: 1 mg Clomipramine HCl (Clomipramine Hcl 25 Mg Capsule) 100 mg PO BEDTIME [facility] Diazepam (Diazepam 2 Mg Tablet) 2 mg PO TID [facility] Last Admin: 10/25/24 08:54 Dose: 2 mg Famotidine (Famotidine 20 Mg Tablet) 20 mg PO DAILY [facility] Last Admin: 10/25/24 08:54 Dose: 20 mg Hydroxyzine HCl (Hydroxyzine Hcl 25 Mg Tablet) 25 mg PO Q4H PRN PRN Reason: mild anxiety Last Admin: 10/17/24 12:59 Dose: 25 mg Magnesium Hydroxide (Milk Of Magnesia 30 Ml Oral.Susp) 30 ml PO DAILY PRN PRN Reason: Constipation Olanzapine (Olanzapine 5 Mg Tablet) 5 mg PO Q6H PRN PRN Reason: mod to severe anxiety Last Admin: 10/25/24 08:54 Dose: 5 mg Omeprazole (Omeprazole 20 Mg Capsule.Dr) 20 mg PO DAILY@0630 [facility] Last Admin: 10/25/24 05:49 Dose: 20 mg Zolpidem Tartrate (Zolpidem Tartrate 5 Mg Tablet) 5 mg PO BEDTIME [facility] Last Admin: 10/24/24 20:10 Dose: 5 mg Allergies Allergies Allergy/AdvReac Type Severity Reaction Status Date / Time ciprofloxacin [From CIPRO] Allergy Unknown DIARRHEA Verified 09/30/24 10:57 Morpholine Analogues Allergy Unknown Unknown Verified 09/30/24 10:57 amoxicillin Allergy Nausea Verified 09/30/24 10:57 meperidine Allergy Unknown Verified 09/30/24 10:57 pollen extracts Allergy Unknown Verified 09/30/24 10:57 Assessment & Plan Assessment & Plan (1) Personality disorder: Status: Acute Code(s): F60.9 - Personality disorder, unspecified (2) Depression, major, severe recurrence: Status: Acute Code(s): F33.2 - Major depressive disorder, recurrent severe without psychotic features (3) Generalized anxiety disorder with panic attacks: Status: Acute Code(s): F41.1 - Generalized anxiety disorder; F41.0 - Panic disorder [episodic paroxysmal anxiety] Plan Mr. Smith is a 74 year-old trans female to male who self presented to [facility] reporting increased depression, suicidal ideation with plan to drown self in bathtub. He reports feelings of abandonment, helplessness, hopelessness, needing care from other. He reports this is in setting of his psychotherapist retiring in April. Unclear if this is the case. He also reports he was at [facility] for last 3 months. Will obtain records from [facility]. Pt signed NADYA. We discussed risks, benefits and alternative treatment options. continue current medications. PLAN 1. Admit to S1, CV, 15 minutes checks for safety 2. continue current medications- trintellix 20mg po daily, buspar 20mg po TID, clonazepam 0.5mg po BID, ambien prn for sleep. 3. obtain collateral information 5. after care plan- consider DBT programming. 10/03: very anxious. continue current regimen for now. 10/04: no change in presentation or plan. 10/05: Patient showered and ports he is extremely anxious about it however does not want any medication changes 10/06 patient remains very anxious; discussed medications and reviewed risks/side effects of Zyprexa which patient agrees to try -Zyprexa 2.5 mg 1 time dose -will make Zyprexa 2.5 mg as a p.r.n. and if effective primary team provider can schedule 10/07 continue tx. encourage behavioral plan to attend to one group a day. 10/08 continue tx. 10/09 plan to add rexulti 0.5mg po daily, boost effect of antidepressant. still waiting for records from [facility]. 10/10 started rexulti 0.5mg po daily to boost effect of antidepressant. 10/11 slightly brighter, still spends most of the time in bed. reports anxious mood.passive SI. added famotidine 20mg po daily. 10/12: continue current management and treatment plan. 10/13: continue current management and treatment plan. 10/14: continue current management and treatment plan. 10/15 we discussed switch from trintellix to maoi, wash out period needed before starting selegiline. will lower trintellix to 10mg po daily. change clonazepam to diazepam for anxiety. d/c buspar limited clinical efficacy. 10/16 will lower dose of trintellix 5mg po daily. There should be a 21 wash out period before starting MAOI. may start process here and step down to OP. continue diazepam. 10/17 continue tx. 10/18 start anafranil 25mg po qhs, increase olanzapine to 5mg po q6h prn severe anxiety. valium 5mg po TID, monitor over sedation. 10/19 continue tx. 10/20 plan to increase anafranil. 10/21 continue tx. 10/22 increase anafranil to 50mg po qhs. continue olanzapine and valium. continue trintellix 5mg po daily with plan to d/c. 10/23 continue tx 10/24 increase anafranil to 100mg po qhs. d/c trintellix. decrease valium to 2mg po TID 10/25 continue tx. Reason for continued inpatient stay Substantial Risk for: inability to function Time Spent With Patient Time: Total time managing care of this patient today ____ minutes.
[2024-10-25 20:00] VITALS: BP 120/58; PULSE 90; RESP 18; TEMP 36.5; O2SAT 96
[2024-10-26 07:55] VITALS: BP 134/69; PULSE 88; RESP 18; TEMP 36.6; O2SAT 97
--- NOTE | 2024-10-26 10:15 | P.PNPSI_ITS ---
Subjective Subjective Date of Service: 10/26/24 Reason For Visit: si Interim History: c/o anxiety. informed zyprexa 5 mg has been scheduled QID for now since he asks for it on the dot every 6 hours. pt in agreement with this plan. no other complaints or requests. per staff, flat, anxious, nervous, isolative. at desk Q6H for meds. Mental Status Exam Mental Status Exam Narrative: Appearance: casually groomed, fair hygiene, appears anxious Behavior:cooperative. psychomotor:no agitation or retardation noted Speech:clear, normal rate/rhythm/volume, spontaneous Thought process:linear Thought content:no signs of psychosis, anxious Mood: anxious Affect: constricted, hyper-intense, non-labile SI: none expressed HI: none expressed VH/AH: none expressed Delusions: none expressed Insight/judgment:fair x 2. Memory/cog: alert, oriented x3. Diagnostics Vital Signs (24Hr): Vital Signs - 24 hr 10/25/24 20:00 10/26/24 07:55 Temperature 97.7 F 97.9 F Pulse Rate 90 88 Respiratory Rate 18 18 Blood Pressure 120/58 L 134/69 Pulse Oximetry 96 97 Oxygen Delivery Method Room Air Room Air BMI result Body Mass Index 27.4 Labs 10/18/24 07:58 10/18/24 07:58 Medications Medications Current Medications Acetaminophen (Acetaminophen 325 Mg Tablet) 650 mg PO Q6H PRN PRN Reason: Headache/Pain, Scale 1-10 Al Hydroxide/Mg Hydroxide (Magnesium Hydrox/Alum Hydrox 30 Ml Oral.Susp) 30 ml PO Q6H PRN PRN Reason: Heartburn/Nausea Brexpiprazole (Brexpiprazole 1 Mg Tablet) 1 mg PO DAILY [facility] Last Admin: 10/26/24 08:24 Dose: 1 mg Clomipramine HCl (Clomipramine Hcl 25 Mg Capsule) 100 mg PO BEDTIME [facility] Last Admin: 10/25/24 20:42 Dose: 100 mg Diazepam (Diazepam 2 Mg Tablet) 2 mg PO TID [facility] Last Admin: 10/26/24 08:24 Dose: 2 mg Famotidine (Famotidine 20 Mg Tablet) 20 mg PO DAILY [facility] Last Admin: 10/26/24 08:24 Dose: 20 mg Hydroxyzine HCl (Hydroxyzine Hcl 25 Mg Tablet) 25 mg PO Q4H PRN PRN Reason: mild anxiety Last Admin: 10/17/24 12:59 Dose: 25 mg Magnesium Hydroxide (Milk Of Magnesia 30 Ml Oral.Susp) 30 ml PO DAILY PRN PRN Reason: Constipation Olanzapine (Olanzapine 5 Mg Tablet) 5 mg PO QID [facility] Omeprazole (Omeprazole 20 Mg Capsule.Dr) 20 mg PO DAILY@0630 [facility] Last Admin: 10/26/24 05:43 Dose: 20 mg Zolpidem Tartrate (Zolpidem Tartrate 5 Mg Tablet) 5 mg PO BEDTIME [facility] Last Admin: 10/25/24 20:41 Dose: 5 mg Allergies Allergies Allergy/AdvReac Type Severity Reaction Status Date / Time ciprofloxacin [From CIPRO] Allergy Unknown DIARRHEA Verified 09/30/24 10:57 Morpholine Analogues Allergy Unknown Unknown Verified 09/30/24 10:57 amoxicillin Allergy Nausea Verified 09/30/24 10:57 meperidine Allergy Unknown Verified 09/30/24 10:57 pollen extracts Allergy Unknown Verified 09/30/24 10:57 Assessment & Plan Assessment & Plan (1) Personality disorder: Status: Acute Code(s): F60.9 - Personality disorder, unspecified (2) Depression, major, severe recurrence: Status: Acute Code(s): F33.2 - Major depressive disorder, recurrent severe without psychotic features (3) Generalized anxiety disorder with panic attacks: Status: Acute Code(s): F41.1 - Generalized anxiety disorder; F41.0 - Panic disorder [episodic paroxysmal anxiety] Plan Mr. Smith is a 74 year-old trans female to male who self presented to [facility] ED reporting increased depression, suicidal ideation with plan to drown self in bathtub. He reports feelings of abandonment, helplessness, hopelessness, needing care from other. He reports this is in setting of his psychotherapist retiring in April. Unclear if this is the case. He also reports he was at [email or web address] for last 3 months. Will obtain records from [facility] [[email or web address] Pt signed NADYA. We discussed risks, benefits and alternative treatment options. continue current medications. PLAN 1. Admit to S1, CV, 15 minutes checks for safety 2. continue current medications- trintellix 20mg po daily, buspar 20mg po TID, clonazepam 0.5mg po BID, ambien prn for sleep. 3. obtain collateral information 5. after care plan- consider DBT programming. 10/03: very anxious. continue current regimen for now. 10/04: no change in presentation or plan. 10/05: Patient showered and ports he is extremely anxious about it however does not want any medication changes 10/06 patient remains very anxious; discussed medications and reviewed risks/side effects of Zyprexa which patient agrees to try -Zyprexa 2.5 mg 1 time dose -will make Zyprexa 2.5 mg as a p.r.n. and if effective primary team provider can schedule 10/07 continue tx. encourage behavioral plan to attend to one group a day. 10/08 continue tx. 10/09 plan to add rexulti 0.5mg po daily, boost effect of antidepressant. still waiting for records from [facility]. 10/10 started rexulti 0.5mg po daily to boost effect of antidepressant. 10/11 slightly brighter, still spends most of the time in bed. reports anxious mood.passive SI. added famotidine 20mg po daily. 10/12: continue current management and treatment plan. 10/13: continue current management and treatment plan. 10/14: continue current management and treatment plan. 10/15 we discussed switch from trintellix to maoi, wash out period needed before starting selegiline. will lower trintellix to 10mg po daily. change clonazepam to diazepam for anxiety. d/c buspar limited clinical efficacy. 10/16 will lower dose of trintellix 5mg po daily. There should be a 21 wash out period before starting MAOI. may start process here and step down to OP. continue diazepam. 10/17 continue tx. 10/18 start anafranil 25mg po qhs, increase olanzapine to 5mg po q6h prn severe anxiety. valium 5mg po TID, monitor over sedation. 10/19 continue tx. 10/20 plan to increase anafranil. 10/21 continue tx. 10/22 increase anafranil to 50mg po qhs. continue olanzapine and valium. continue trintellix 5mg po daily with plan to d/c. 10/23 continue tx 10/24 increase anafranil to 100mg po qhs. d/c trintellix. decrease valium to 2mg po TID 10/25 continue tx. 10/26: schedule zyprexa 5 mg Q6H PRN to be QID as pt is very regularly asking for the medication. anxious. continue current mgmt otherwise. Reason for continued inpatient stay Substantial Risk for: harm to self and inability to function Time Spent With Patient Time: Total time managing care of this patient today ____ minutes.
[2024-10-26 20:00] VITALS: BP 116/63; PULSE 88; RESP 18; TEMP 36.3; O2SAT 96
[2024-10-27 07:50] VITALS: BP 130/76; PULSE 98; RESP 18; TEMP 36.8; O2SAT 95
--- NOTE | 2024-10-27 15:41 | HO.PSYCHPN ---
Subjective Subjective Date of Service: 10/27/24 Reason For Visit: si Interim History: anxious. olanzapine helps. per staff, happy with scheduled olanzapine. Mental Status Exam Mental Status Exam Narrative: Appearance: casually groomed, fair hygiene, appears anxious Behavior:cooperative. psychomotor:no agitation or retardation noted Speech:clear, normal rate/rhythm/volume, spontaneous Thought process:linear Thought content:no signs of psychosis, anxious Mood: anxious Affect: constricted, hyper-intense, non-labile SI: none expressed HI: none expressed VH/AH: none expressed Delusions: none expressed Insight/judgment:fair x 2. Memory/cog: alert, oriented x3. Diagnostics Vital Signs (24Hr): Vital Signs - 24 hr 10/26/24 20:00 10/27/24 07:50 Temperature 97.3 F 98.2 F Pulse Rate 88 98 Respiratory Rate 18 18 Blood Pressure 116/63 130/76 Pulse Oximetry 96 95 Oxygen Delivery Method Room Air Room Air BMI result Body Mass Index 27.4 Labs 10/18/24 07:58 10/18/24 07:58 Medications Medications Current Medications Acetaminophen (Acetaminophen 325 Mg Tablet) 650 mg PO Q6H PRN PRN Reason: Headache/Pain, Scale 1-10 Al Hydroxide/Mg Hydroxide (Magnesium Hydrox/Alum Hydrox 30 Ml Oral.Susp) 30 ml PO Q6H PRN PRN Reason: Heartburn/Nausea Brexpiprazole (Brexpiprazole 1 Mg Tablet) 1 mg PO DAILY [facility] Last Admin: 10/27/24 08:15 Dose: 1 mg Clomipramine HCl (Clomipramine Hcl 25 Mg Capsule) 100 mg PO BEDTIME [facility] Last Admin: 10/26/24 20:32 Dose: 100 mg Diazepam (Diazepam 2 Mg Tablet) 2 mg PO TID [facility] Last Admin: 10/27/24 14:37 Dose: 2 mg Famotidine (Famotidine 20 Mg Tablet) 20 mg PO DAILY [facility] Last Admin: 10/27/24 08:16 Dose: 20 mg Hydroxyzine HCl (Hydroxyzine Hcl 25 Mg Tablet) 25 mg PO Q4H PRN PRN Reason: mild anxiety Last Admin: 10/17/24 12:59 Dose: 25 mg Magnesium Hydroxide (Milk Of Magnesia 30 Ml Oral.Susp) 30 ml PO DAILY PRN PRN Reason: Constipation Olanzapine (Olanzapine 5 Mg Tablet) 5 mg PO QID [facility] Last Admin: 10/27/24 12:31 Dose: 5 mg Omeprazole (Omeprazole 20 Mg Capsule.) 20 mg PO DAILY@0630 [facility] Last Admin: 10/27/24 05:55 Dose: 20 mg Zolpidem Tartrate (Zolpidem Tartrate 5 Mg Tablet) 5 mg PO BEDTIME [facility] Last Admin: 10/26/24 20:31 Dose: 5 mg Allergies Allergies Allergy/AdvReac Type Severity Reaction Status Date / Time ciprofloxacin [From CIPRO] Allergy Unknown DIARRHEA Verified 09/30/24 10:57 Morpholine Analogues Allergy Unknown Unknown Verified 09/30/24 10:57 amoxicillin Allergy Nausea Verified 09/30/24 10:57 meperidine Allergy Unknown Verified 09/30/24 10:57 pollen extracts Allergy Unknown Verified 09/30/24 10:57 Assessment & Plan Assessment & Plan (1) Personality disorder: Status: Acute Code(s): F60.9 - Personality disorder, unspecified (2) Depression, major, severe recurrence: Status: Acute Code(s): F33.2 - Major depressive disorder, recurrent severe without psychotic features (3) Generalized anxiety disorder with panic attacks: Status: Acute Code(s): F41.1 - Generalized anxiety disorder; F41.0 - Panic disorder [episodic paroxysmal anxiety] Plan Mr. Smith is a 74 year-old trans female to male who self presented to [facility] reporting increased depression, suicidal ideation with plan to drown self in bathtub. He reports feelings of abandonment, helplessness, hopelessness, needing care from other. He reports this is in setting of his psychotherapist retiring in April. Unclear if this is the case. He also reports he was at [facility] for last 3 months. Will obtain records from [facility]. Pt signed NADYA. We discussed risks, benefits and alternative treatment options. continue current medications. PLAN 1. Admit to S1, CV, 15 minutes checks for safety 2. continue current medications- trintellix 20mg po daily, buspar 20mg po TID, clonazepam 0.5mg po BID, ambien prn for sleep. 3. obtain collateral information 5. after care plan- consider DBT programming. 10/03: very anxious. continue current regimen for now. 10/04: no change in presentation or plan. 10/05: Patient showered and ports he is extremely anxious about it however does not want any medication changes 10/06 patient remains very anxious; discussed medications and reviewed risks/side effects of Zyprexa which patient agrees to try -Zyprexa 2.5 mg 1 time dose -will make Zyprexa 2.5 mg as a p.r.n. and if effective primary team provider can schedule 10/07 continue tx. encourage behavioral plan to attend to one group a day. 10/08 continue tx. 10/09 plan to add rexulti 0.5mg po daily, boost effect of antidepressant. still waiting for records from [facility]. 10/10 started rexulti 0.5mg po daily to boost effect of antidepressant. 10/11 slightly brighter, still spends most of the time in bed. reports anxious mood.passive SI. added famotidine 20mg po daily. 10/12: continue current management and treatment plan. 10/13: continue current management and treatment plan. 10/14: continue current management and treatment plan. 10/15 we discussed switch from trintellix to maoi, wash out period needed before starting selegiline. will lower trintellix to 10mg po daily. change clonazepam to diazepam for anxiety. d/c buspar limited clinical efficacy. 10/16 will lower dose of trintellix 5mg po daily. There should be a 21 wash out period before starting MAOI. may start process here and step down to OP. continue diazepam. 10/17 continue tx. 10/18 start anafranil 25mg po qhs, increase olanzapine to 5mg po q6h prn severe anxiety. valium 5mg po TID, monitor over sedation. 10/19 continue tx. 10/20 plan to increase anafranil. 10/21 continue tx. 10/22 increase anafranil to 50mg po qhs. continue olanzapine and valium. continue trintellix 5mg po daily with plan to d/c. 10/23 continue tx 10/24 increase anafranil to 100mg po qhs. d/c trintellix. decrease valium to 2mg po TID 10/25 continue tx. 10/26: schedule zyprexa 5 mg Q6H PRN to be QID as pt is very regularly asking for the medication. anxious. continue current mgmt otherwise. 10/27: feeling better with scheduled olanzapine, but still anxious. continue current mgmt. Reason for continued inpatient stay Substantial Risk for: inability to function Time Spent With Patient Time: Total time managing care of this patient today ____ minutes.
[2024-10-27 20:00] VITALS: BP 115/64; PULSE 78; TEMP 36.3; O2SAT 98
[2024-10-28] VITALS (9 sets, daily range): BP systolic 78–133; BP diastolic 42–60; PULSE 78–106; RESP 18; TEMP 36.4–36.7; O2SAT 93–96
--- NOTE | 2024-10-28 04:53 | PC.NURSE ---
Pt put himself on the floor @ 0330 denied lightheadedness, dizziness, VSS BP120/60, HR 88, 02 96%. Ambulated independently to the bathroom and got back into bed.
--- NOTE | 2024-10-28 07:07 | P.EN_ITS ---
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 denies fall or trauma, no chest pain, sob, lightheadedness, VSS, POC 91. no further work up needed. Time Spent With Patient Time: Total time managing care of this patient today ____ minutes.
[2024-10-28 07:45] LABS: Glucose, Whole Blood 91 mg/dL (60-115)
--- NOTE | 2024-10-28 08:15 | PC.NURSE ---
[employer] called what was believed to be unwitnessed fall, per patient report he was kneeling and when reaching for something on the floor went to far and ended up falling. No injuries reported, provider at bedside, assessment negative, vss, POC wnl.
--- NOTE | 2024-10-28 09:27 | P.PNPSI_ITS ---
Subjective Subjective Date of Service: 10/28/24 Reason For Visit: si Subjective Notes: Conditional Voluntary Interim History: Pt slept through the night. He reports feeling very dizzy when ambulating. ortho BP 100/53, HR 96 sitting- 78/42 Hr 79. Pt declined IV fluids, did have about 1 liter of water, recheck BP 105/56, HR 86. continue to monitor BP, ortho VS pt on number of psychotropic medications that affect BP including Anafranil and olanzapine- will decrease olanzapine to 5mg po TID. Pt reports feeling less depressed, has attended more groups and has been more visible on the unit. Diagnostics Vital Signs (24Hr): Vital Signs - 24 hr 10/27/24 20:00 10/28/24 03:32 10/28/24 08:00 Temperature 97.3 F 98.1 F Pulse Rate 78 88 106 H Respiratory Rate 18 18 Blood Pressure 115/64 120/60 133/55 L Pulse Oximetry 98 96 93 Oxygen Delivery Method Room Air Room Air Room Air BMI result Body Mass Index 27.4 Labs 10/18/24 07:58 10/18/24 07:58 Labs: Laboratory Results - last 48 hr 10/28/24 07:04 POC Glucose 91 Medications Medications Current Medications Acetaminophen (Acetaminophen 325 Mg Tablet) 650 mg PO Q6H PRN PRN Reason: Headache/Pain, Scale 1-10 Al Hydroxide/Mg Hydroxide (Magnesium Hydrox/Alum Hydrox 30 Ml Oral.Susp) 30 ml PO Q6H PRN PRN Reason: Heartburn/Nausea Brexpiprazole (Brexpiprazole 1 Mg Tablet) 1 mg PO DAILY [facility] Last Admin: 10/28/24 08:19 Dose: 1 mg Clomipramine HCl (Clomipramine Hcl 25 Mg Capsule) 100 mg PO BEDTIME [facility] Last Admin: 10/27/24 20:01 Dose: 100 mg Diazepam (Diazepam 2 Mg Tablet) 2 mg PO TID [facility] Last Admin: 10/28/24 08:19 Dose: 2 mg Famotidine (Famotidine 20 Mg Tablet) 20 mg PO DAILY [facility] Last Admin: 10/28/24 08:19 Dose: 20 mg Hydroxyzine HCl (Hydroxyzine Hcl 25 Mg Tablet) 25 mg PO Q4H PRN PRN Reason: mild anxiety Last Admin: 10/17/24 12:59 Dose: 25 mg Magnesium Hydroxide (Milk Of Magnesia 30 Ml Oral.Susp) 30 ml PO DAILY PRN PRN Reason: Constipation Olanzapine (Olanzapine 5 Mg Tablet) 5 mg PO QID [facility] Last Admin: 10/28/24 08:19 Dose: 5 mg Omeprazole (Omeprazole 20 Mg Capsule.Dr) 20 mg PO DAILY@0630 [facility] Last Admin: 10/28/24 05:58 Dose: 20 mg Zolpidem Tartrate (Zolpidem Tartrate 5 Mg Tablet) 5 mg PO BEDTIME [facility] Last Admin: 10/27/24 20:01 Dose: 5 mg Allergies Allergies Allergy/AdvReac Type Severity Reaction Status Date / Time ciprofloxacin [From CIPRO] Allergy Unknown DIARRHEA Verified 09/30/24 10:57 Morpholine Analogues Allergy Unknown Unknown Verified 09/30/24 10:57 amoxicillin Allergy Nausea Verified 09/30/24 10:57 meperidine Allergy Unknown Verified 09/30/24 10:57 pollen extracts Allergy Unknown Verified 09/30/24 10:57 Assessment & Plan Assessment & Plan (1) Personality disorder: Status: Acute Code(s): F60.9 - Personality disorder, unspecified (2) Depression, major, severe recurrence: Status: Acute Code(s): F33.2 - Major depressive disorder, recurrent severe without psychotic features (3) Generalized anxiety disorder with panic attacks: Status: Acute Code(s): F41.1 - Generalized anxiety disorder; F41.0 - Panic disorder [episodic paroxysmal anxiety] Plan Mr. Smith is a 74 year-old trans female to male who self presented to [facility] [place] [facility] reporting increased depression, suicidal ideation with plan to drown self in bathtub. He reports feelings of abandonment, helplessness, hopelessness, needing care from other. He reports this is in setting of his psychotherapist retiring in April. Unclear if this is the case. He also reports he was at [facility] for last 3 months. Will obtain records from [facility]. Pt signed NADYA. We discussed risks, benefits and alternative treatment options. continue current medications. PLAN 1. Admit to S1, CV, 15 minutes checks for safety 2. continue current medications- trintellix 20mg po daily, buspar 20mg po TID, clonazepam 0.5mg po BID, ambien prn for sleep. 3. obtain collateral information 5. after care plan- consider DBT programming. 10/03: very anxious. continue current regimen for now. 10/04: no change in presentation or plan. 10/05: Patient showered and ports he is extremely anxious about it however does not want any medication changes 10/06 patient remains very anxious; discussed medications and reviewed risks/side effects of Zyprexa which patient agrees to try -Zyprexa 2.5 mg 1 time dose -will make Zyprexa 2.5 mg as a p.r.n. and if effective primary team provider can schedule 10/07 continue tx. encourage behavioral plan to attend to one group a day. 10/08 continue tx. 10/09 plan to add rexulti 0.5mg po daily, boost effect of antidepressant. still waiting for records from [facility]. 10/10 started rexulti 0.5mg po daily to boost effect of antidepressant. 10/11 slightly brighter, still spends most of the time in bed. reports anxious mood.passive SI. added famotidine 20mg po daily. 10/12: continue current management and treatment plan. 10/13: continue current management and treatment plan. 10/14: continue current management and treatment plan. 10/15 we discussed switch from trintellix to maoi, wash out period needed before starting selegiline. will lower trintellix to 10mg po daily. change clonazepam to diazepam for anxiety. d/c buspar limited clinical efficacy. 10/16 will lower dose of trintellix 5mg po daily. There should be a 21 wash out period before starting MAOI. may start process here and step down to OP. continue diazepam. 10/17 continue tx. 10/18 start anafranil 25mg po qhs, increase olanzapine to 5mg po q6h prn severe anxiety. valium 5mg po TID, monitor over sedation. 10/19 continue tx. 10/20 plan to increase anafranil. 10/21 continue tx. 10/22 increase anafranil to 50mg po qhs. continue olanzapine and valium. continue trintellix 5mg po daily with plan to d/c. 10/23 continue tx 10/24 increase anafranil to 100mg po qhs. d/c trintellix. decrease valium to 2mg po TID 10/25 continue tx. 10/26: schedule zyprexa 5 mg Q6H PRN to be QID as pt is very regularly asking for the medication. anxious. continue current mgmt otherwise. 10/27: feeling better with scheduled olanzapine, but still anxious. continue current mgmt. 10/28 ortho static hotn, lowered olanzapine from 5mg po QID to TID, had liter of water, BP improved, will continue to monitor. continue ortho VS. Reason for continued inpatient stay Substantial Risk for: inability to function Time Spent With Patient Time: Total time managing care of this patient today ____ minutes.
[2024-10-29 07:55] VITALS: BP 100/55; BP 106/60; PULSE 98; PULSE 99; TEMP 36.8; O2SAT 95
[2024-10-29 08:00] VITALS: BP 112/58; PULSE 98
--- NOTE | 2024-10-29 11:03 | P.PNPSI_ITS ---
Subjective Subjective Date of Service: 10/29/24 Reason For Visit: si Subjective Notes: Conditional Voluntary Interim History: Pt slept through the night. BP improved, reports less dizziness. He reports his anxiety is better controlled with olanzapine, will d/c rexulti. He reports less depressed mood. He has been more visible. going to more groups. Medication Compliance: Yes Review of Systems Review of Systems Denies Mental Status Exam Mental Status Exam Narrative: Appearance: casually groomed, fair hygiene, appears anxious Behavior:cooperative. psychomotor:no agitation or retardation noted Speech:clear, normal rate/rhythm/volume, spontaneous Thought process:linear Thought content:no signs of psychosis, anxious Mood: anxious Affect: constricted, hyper-intense, non-labile SI: none expressed HI: none expressed VH/AH: none expressed Delusions: none expressed Insight/judgment:fair x 2. Memory/cog: alert, oriented x3. Diagnostics Vital Signs (24Hr): Vital Signs - 24 hr 10/28/24 11:28 10/28/24 11:28 10/28/24 11:29 Temperature Pulse Rate 81 96 79 Blood Pressure 99/51 L 100/53 L 78/42 L Pulse Oximetry Oxygen Delivery Method 10/28/24 12:50 10/28/24 18:30 10/28/24 18:31 Temperature Pulse Rate 86 78 81 Blood Pressure 105/56 L 119/57 L 115/56 L Pulse Oximetry Oxygen Delivery Method 10/28/24 18:32 10/28/24 20:00 10/29/24 07:55 Temperature 97.5 F 98.2 F Pulse Rate 90 86 99 Blood Pressure 114/56 L 110/53 L 100/55 L Pulse Oximetry 94 95 Oxygen Delivery Method Room Air Room Air 10/29/24 07:55 10/29/24 08:00 Temperature Pulse Rate 98 98 Blood Pressure 106/60 112/58 L Pulse Oximetry Oxygen Delivery Method BMI result Body Mass Index 27.4 Labs 10/18/24 07:58 10/18/24 07:58 Labs: Laboratory Results - last 48 hr 10/28/24 07:04 POC Glucose 91 Medications Medications Current Medications Acetaminophen (Acetaminophen 325 Mg Tablet) 650 mg PO Q6H PRN PRN Reason: Headache/Pain, Scale 1-10 Al Hydroxide/Mg Hydroxide (Magnesium Hydrox/Alum Hydrox 30 Ml Oral.Susp) 30 ml PO Q6H PRN PRN Reason: Heartburn/Nausea Brexpiprazole (Brexpiprazole 1 Mg Tablet) 1 mg PO DAILY [facility] Last Admin: 10/29/24 08:10 Dose: 1 mg Clomipramine HCl (Clomipramine Hcl 25 Mg Capsule) 100 mg PO BEDTIME [facility] Last Admin: 10/28/24 20:43 Dose: 100 mg Diazepam (Diazepam 2 Mg Tablet) 2 mg PO TID [facility] Last Admin: 10/29/24 08:10 Dose: 2 mg Famotidine (Famotidine 20 Mg Tablet) 20 mg PO DAILY [facility] Last Admin: 10/29/24 08:10 Dose: 20 mg Hydroxyzine HCl (Hydroxyzine Hcl 25 Mg Tablet) 25 mg PO Q4H PRN PRN Reason: mild anxiety Last Admin: 10/17/24 12:59 Dose: 25 mg Magnesium Hydroxide (Milk Of Magnesia 30 Ml Oral.Susp) 30 ml PO DAILY PRN PRN Reason: Constipation Olanzapine (Olanzapine 5 Mg Tablet) 5 mg PO TID [facility] Last Admin: 10/29/24 08:10 Dose: 5 mg Omeprazole (Omeprazole 20 Mg Capsule.Dr) 20 mg PO DAILY@0630 [facility] Last Admin: 10/29/24 06:09 Dose: 20 mg Zolpidem Tartrate (Zolpidem Tartrate 5 Mg Tablet) 5 mg PO BEDTIME [facility] Last Admin: 10/28/24 20:43 Dose: 5 mg Allergies Allergies Allergy/AdvReac Type Severity Reaction Status Date / Time ciprofloxacin [From CIPRO] Allergy Unknown DIARRHEA Verified 09/30/24 10:57 Morpholine Analogues Allergy Unknown Unknown Verified 09/30/24 10:57 amoxicillin Allergy Nausea Verified 09/30/24 10:57 meperidine Allergy Unknown Verified 09/30/24 10:57 pollen extracts Allergy Unknown Verified 09/30/24 10:57 Assessment & Plan Assessment & Plan (1) Personality disorder: Status: Acute Code(s): F60.9 - Personality disorder, unspecified (2) Depression, major, severe recurrence: Status: Acute Code(s): F33.2 - Major depressive disorder, recurrent severe without psychotic features (3) Generalized anxiety disorder with panic attacks: Status: Acute Code(s): F41.1 - Generalized anxiety disorder; F41.0 - Panic disorder [episodic paroxysmal anxiety] Plan Mr. Smith is a 74 year-old trans female to male who self presented to [facility] [place] [facility] reporting increased depression, suicidal ideation with plan to drown self in bathtub. He reports feelings of abandonment, helplessness, hopelessness, needing care from other. He reports this is in setting of his psychotherapist retiring in April. Unclear if this is the case. He also reports he was at [facility] for last 3 months. Will obtain records from [facility]. Pt signed NADYA. We discussed risks, benefits and alternative treatment options. continue current medications. PLAN 1. Admit to S1, CV, 15 minutes checks for safety 2. continue current medications- trintellix 20mg po daily, buspar 20mg po TID, clonazepam 0.5mg po BID, ambien prn for sleep. 3. obtain collateral information 5. after care plan- consider DBT programming. 10/03: very anxious. continue current regimen for now. 10/04: no change in presentation or plan. 10/05: Patient showered and ports he is extremely anxious about it however does not want any medication changes 10/06 patient remains very anxious; discussed medications and reviewed risks/side effects of Zyprexa which patient agrees to try -Zyprexa 2.5 mg 1 time dose -will make Zyprexa 2.5 mg as a p.r.n. and if effective primary team provider can schedule 10/07 continue tx. encourage behavioral plan to attend to one group a day. 10/08 continue tx. 10/09 plan to add rexulti 0.5mg po daily, boost effect of antidepressant. still waiting for records from [facility]. 10/10 started rexulti 0.5mg po daily to boost effect of antidepressant. 10/11 slightly brighter, still spends most of the time in bed. reports anxious mood.passive SI. added famotidine 20mg po daily. 10/12: continue current management and treatment plan. 10/13: continue current management and treatment plan. 10/14: continue current management and treatment plan. 10/15 we discussed switch from trintellix to maoi, wash out period needed before starting selegiline. will lower trintellix to 10mg po daily. change clonazepam to diazepam for anxiety. d/c buspar limited clinical efficacy. 10/16 will lower dose of trintellix 5mg po daily. There should be a 21 wash out period before starting MAOI. may start process here and step down to OP. continue diazepam. 10/17 continue tx. 10/18 start anafranil 25mg po qhs, increase olanzapine to 5mg po q6h prn severe anxiety. valium 5mg po TID, monitor over sedation. 10/19 continue tx. 10/20 plan to increase anafranil. 10/21 continue tx. 10/22 increase anafranil to 50mg po qhs. continue olanzapine and valium. continue trintellix 5mg po daily with plan to d/c. 10/23 continue tx 10/24 increase anafranil to 100mg po qhs. d/c trintellix. decrease valium to 2mg po TID 10/25 continue tx. 10/26: schedule zyprexa 5 mg Q6H PRN to be QID as pt is very regularly asking for the medication. anxious. continue current mgmt otherwise. 10/27: feeling better with scheduled olanzapine, but still anxious. continue current mgmt. 10/28 ortho static hotn, lowered olanzapine from 5mg po QID to TID, had liter of water, BP improved, will continue to monitor. continue ortho VS. 10/29 d/c rexulti give ortho hotn and apparently lack of efficacy of this medication. Reason for continued inpatient stay Substantial Risk for: inability to function Time Spent With Patient Time: Total time managing care of this patient today ____ minutes.
[2024-10-29 11:29] VITALS: BP 89/54; PULSE 104
[2024-10-29 11:30] VITALS: BP 133/60; PULSE 100
[2024-10-29 19:49] VITALS: BP 121/78; PULSE 73; RESP 16; TEMP 36.4; O2SAT 96
[2024-10-30 08:00] VITALS: BP 113/77; PULSE 90
[2024-10-30 20:00] VITALS: BP 113/56; PULSE 72; RESP 16; TEMP 37.2; O2SAT 96
--- NOTE | 2024-10-30 20:57 | HO.PSYCHPN ---
Subjective Subjective Date of Service: 10/30/24 Reason For Visit: si Subjective Notes: Conditional Voluntary Interim History: Pt slept through the night. BP improved, reports less dizziness. He reports his anxiety is better controlled with olanzapine, will d/c heribertoulti. He reports less depressed mood. He reports he is worried about returning back home since he has been in the hospital for most of this year. He has been more visible. going to more groups. Review of Systems Review of Systems Denies Mental Status Exam Mental Status Exam Narrative: Appearance: casually groomed, fair hygiene, appears anxious Behavior:cooperative. psychomotor:no agitation or retardation noted Speech:clear, normal rate/rhythm/volume, spontaneous Thought process:linear Thought content:no signs of psychosis, anxious Mood: anxious Affect: constricted, hyper-intense, non-labile SI: none expressed HI: none expressed VH/AH: none expressed Delusions: none expressed Insight/judgment:fair x 2. Memory/cog: alert, oriented x3. Patient Appearance: Appropriate Patient Orientation: Person, Place and Situation Level of Consciousness: Alert Patient Behavior: Appropriate, Talkative, Cooperative and Good Eye Contact Mood Description: Constricted Affect Description: Constricted Patient Cognition Impaired: No Ability to Follow Directions: Good Speech Pattern: Spontaneous Speech Memory Description: Intact Diagnostics Vital Signs (24Hr): Vital Signs - 24 hr 10/30/24 08:00 10/30/24 20:00 Temperature 99.0 F Pulse Rate 90 72 Respiratory Rate 16 Blood Pressure 113/77 113/56 L Pulse Oximetry 96 Oxygen Delivery Method Room Air BMI result Body Mass Index 27.4 Labs 10/18/24 07:58 10/18/24 07:58 Medications Medications Current Medications Acetaminophen (Acetaminophen 325 Mg Tablet) 650 mg PO Q6H PRN PRN Reason: Headache/Pain, Scale 1-10 Al Hydroxide/Mg Hydroxide (Magnesium Hydrox/Alum Hydrox 30 Ml Oral.Susp) 30 ml PO Q6H PRN PRN Reason: Heartburn/Nausea Clomipramine HCl (Clomipramine Hcl 25 Mg Capsule) 100 mg PO BEDTIME [facility] Last Admin: 10/30/24 20:54 Dose: 100 mg Diazepam (Diazepam 2 Mg Tablet) 2 mg PO TID [facility] Last Admin: 10/30/24 20:54 Dose: 2 mg Famotidine (Famotidine 20 Mg Tablet) 20 mg PO DAILY [facility] Last Admin: 10/30/24 08:13 Dose: 20 mg Hydroxyzine HCl (Hydroxyzine Hcl 25 Mg Tablet) 25 mg PO Q4H PRN PRN Reason: mild anxiety Last Admin: 10/17/24 12:59 Dose: 25 mg Magnesium Hydroxide (Milk Of Magnesia 30 Ml Oral.Susp) 30 ml PO DAILY PRN PRN Reason: Constipation Olanzapine (Olanzapine 5 Mg Tablet) 5 mg PO TID [facility] Last Admin: 10/30/24 20:54 Dose: 5 mg Omeprazole (Omeprazole 20 Mg Capsule.Dr) 20 mg PO DAILY@0630 [facility] Last Admin: 10/30/24 05:12 Dose: 20 mg Zolpidem Tartrate (Zolpidem Tartrate 5 Mg Tablet) 5 mg PO BEDTIME [facility] Last Admin: 10/30/24 20:54 Dose: 5 mg Allergies Allergies Allergy/AdvReac Type Severity Reaction Status Date / Time ciprofloxacin [From CIPRO] Allergy Unknown DIARRHEA Verified 09/30/24 10:57 Morpholine Analogues Allergy Unknown Unknown Verified 09/30/24 10:57 amoxicillin Allergy Nausea Verified 09/30/24 10:57 meperidine Allergy Unknown Verified 09/30/24 10:57 pollen extracts Allergy Unknown Verified 09/30/24 10:57 Assessment & Plan Assessment & Plan (1) Personality disorder: Status: Acute Code(s): F60.9 - Personality disorder, unspecified (2) Depression, major, severe recurrence: Status: Acute Code(s): F33.2 - Major depressive disorder, recurrent severe without psychotic features (3) Generalized anxiety disorder with panic attacks: Status: Acute Code(s): F41.1 - Generalized anxiety disorder; F41.0 - Panic disorder [episodic paroxysmal anxiety] Plan Mr. Smith is a 74 year-old trans female to male who self presented to [facility] reporting increased depression, suicidal ideation with plan to drown self in bathtub. He reports feelings of abandonment, helplessness, hopelessness, needing care from other. He reports this is in setting of his psychotherapist retiring in April. Unclear if this is the case. He also reports he was at [facility] for last 3 months. Will obtain records from [facility]. Pt signed NADYA. We discussed risks, benefits and alternative treatment options. continue current medications. PLAN 1. Admit to S1, CV, 15 minutes checks for safety 2. continue current medications- trintellix 20mg po daily, buspar 20mg po TID, clonazepam 0.5mg po BID, ambien prn for sleep. 3. obtain collateral information 5. after care plan- consider DBT programming. 10/03: very anxious. continue current regimen for now. 10/04: no change in presentation or plan. 10/05: Patient showered and ports he is extremely anxious about it however does not want any medication changes 10/06 patient remains very anxious; discussed medications and reviewed risks/side effects of Zyprexa which patient agrees to try -Zyprexa 2.5 mg 1 time dose -will make Zyprexa 2.5 mg as a p.r.n. and if effective primary team provider can schedule 10/07 continue tx. encourage behavioral plan to attend to one group a day. 10/08 continue tx. 10/09 plan to add rexulti 0.5mg po daily, boost effect of antidepressant. still waiting for records from [facility]. 10/10 started rexulti 0.5mg po daily to boost effect of antidepressant. 10/11 slightly brighter, still spends most of the time in bed. reports anxious mood.passive SI. added famotidine 20mg po daily. 10/12: continue current management and treatment plan. 10/13: continue current management and treatment plan. 10/14: continue current management and treatment plan. 10/15 we discussed switch from trintellix to maoi, wash out period needed before starting selegiline. will lower trintellix to 10mg po daily. change clonazepam to diazepam for anxiety. d/c buspar limited clinical efficacy. 10/16 will lower dose of trintellix 5mg po daily. There should be a 21 wash out period before starting MAOI. may start process here and step down to OP. continue diazepam. 10/17 continue tx. 10/18 start anafranil 25mg po qhs, increase olanzapine to 5mg po q6h prn severe anxiety. valium 5mg po TID, monitor over sedation. 10/19 continue tx. 10/20 plan to increase anafranil. 10/21 continue tx. 10/22 increase anafranil to 50mg po qhs. continue olanzapine and valium. continue trintellix 5mg po daily with plan to d/c. 10/23 continue tx 10/24 increase anafranil to 100mg po qhs. d/c trintellix. decrease valium to 2mg po TID 10/25 continue tx. 10/26: schedule zyprexa 5 mg Q6H PRN to be QID as pt is very regularly asking for the medication. anxious. continue current mgmt otherwise. 10/27: feeling better with scheduled olanzapine, but still anxious. continue current mgmt. 10/28 ortho static hotn, lowered olanzapine from 5mg po QID to TID, had liter of water, BP improved, will continue to monitor. continue ortho VS. 10/29 continue tx. BP stable. 10/30 continue current medications- encourage fluids. continue to monitor ortho hotn Reason for continued inpatient stay Substantial Risk for: inability to function Time Spent With Patient Time: Total time managing care of this patient today ____ minutes.
--- NOTE | 2024-10-31 07:47 | P.PNPSI_ITS ---
Subjective Subjective Date of Service: 10/31/24 Reason For Visit: si Subjective Notes: Conditional Voluntary Interim History: Pt slept through the night. Pt reports he has been able to go to more groups and engage in different activities. 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 His affect is brighter. He does endorse anxious mood but reports is less. He reports depression has also improved. He still stays in bed and delays going things needed prior to d/c such as calling friend to help pay with utility bills. Review of Systems Review of Systems Denies Mental Status Exam Mental Status Exam Narrative: Appearance: casually groomed, fair hygiene, appears anxious Behavior:cooperative. psychomotor:no agitation or retardation noted Speech:clear, normal rate/rhythm/volume, spontaneous Thought process:linear Thought content:no signs of psychosis, anxious Mood: anxious Affect: constricted, hyper-intense, non-labile SI: none expressed HI: none expressed VH/AH: none expressed Delusions: none expressed Insight/judgment:fair x 2. Memory/cog: alert, oriented x3. Diagnostics Vital Signs (24Hr): Vital Signs - 24 hr 10/30/24 08:00 10/30/24 20:00 Temperature 99.0 F Pulse Rate 90 72 Respiratory Rate 16 Blood Pressure 113/77 113/56 L Pulse Oximetry 96 Oxygen Delivery Method Room Air BMI result Body Mass Index 27.4 Labs 10/18/24 07:58 10/18/24 07:58 Medications Medications Current Medications Acetaminophen (Acetaminophen 325 Mg Tablet) 650 mg PO Q6H PRN PRN Reason: Headache/Pain, Scale 1-10 Al Hydroxide/Mg Hydroxide (Magnesium Hydrox/Alum Hydrox 30 Ml Oral.Susp) 30 ml PO Q6H PRN PRN Reason: Heartburn/Nausea Clomipramine HCl (Clomipramine Hcl 25 Mg Capsule) 100 mg PO BEDTIME [facility] Last Admin: 10/30/24 20:54 Dose: 100 mg Diazepam (Diazepam 2 Mg Tablet) 2 mg PO TID [facility] Last Admin: 10/30/24 20:54 Dose: 2 mg Famotidine (Famotidine 20 Mg Tablet) 20 mg PO DAILY [facility] Last Admin: 10/30/24 08:13 Dose: 20 mg Hydroxyzine HCl (Hydroxyzine Hcl 25 Mg Tablet) 25 mg PO Q4H PRN PRN Reason: mild anxiety Last Admin: 10/17/24 12:59 Dose: 25 mg Magnesium Hydroxide (Milk Of Magnesia 30 Ml Oral.Susp) 30 ml PO DAILY PRN PRN Reason: Constipation Olanzapine (Olanzapine 5 Mg Tablet) 5 mg PO TID [facility] Last Admin: 10/30/24 20:54 Dose: 5 mg Omeprazole (Omeprazole 20 Mg Capsule.Dr) 20 mg PO DAILY@0630 [facility] Last Admin: 10/31/24 06:35 Dose: 20 mg Zolpidem Tartrate (Zolpidem Tartrate 5 Mg Tablet) 5 mg PO BEDTIME [facility] Last Admin: 10/30/24 20:54 Dose: 5 mg Allergies Allergies Allergy/AdvReac Type Severity Reaction Status Date / Time ciprofloxacin [From CIPRO] Allergy Unknown DIARRHEA Verified 09/30/24 10:57 Morpholine Analogues Allergy Unknown Unknown Verified 09/30/24 10:57 amoxicillin Allergy Nausea Verified 09/30/24 10:57 meperidine Allergy Unknown Verified 09/30/24 10:57 pollen extracts Allergy Unknown Verified 09/30/24 10:57 Assessment & Plan Assessment & Plan (1) Personality disorder: Status: Acute Code(s): F60.9 - Personality disorder, unspecified (2) Depression, major, severe recurrence: Status: Acute Code(s): F33.2 - Major depressive disorder, recurrent severe without psychotic features (3) Generalized anxiety disorder with panic attacks: Status: Acute Code(s): F41.1 - Generalized anxiety disorder; F41.0 - Panic disorder [episodic paroxysmal anxiety] Plan Mr. Smith is a 74 year-old trans female to male who self presented to [facility] reporting increased depression, suicidal ideation with plan to drown self in bathtub. He reports feelings of abandonment, helplessness, hopelessness, needing care from other. He reports this is in setting of his psychotherapist retiring in April. Unclear if this is the case. He also reports he was at [facility] for last 3 months. Will obtain records from [facility]. Pt signed NADYA. We discussed risks, benefits and alternative treatment options. continue current medications. PLAN 1. Admit to S1, CV, 15 minutes checks for safety 2. continue current medications- trintellix 20mg po daily, buspar 20mg po TID, clonazepam 0.5mg po BID, ambien prn for sleep. 3. obtain collateral information 5. after care plan- consider DBT programming. 10/03: very anxious. continue current regimen for now. 10/04: no change in presentation or plan. 10/05: Patient showered and ports he is extremely anxious about it however does not want any medication changes 10/06 patient remains very anxious; discussed medications and reviewed risks/side effects of Zyprexa which patient agrees to try -Zyprexa 2.5 mg 1 time dose -will make Zyprexa 2.5 mg as a p.r.n. and if effective primary team provider can schedule 10/07 continue tx. encourage behavioral plan to attend to one group a day. 10/08 continue tx. 10/09 plan to add rexulti 0.5mg po daily, boost effect of antidepressant. [facility] 10/10 started rexulti 0.5mg po daily to boost effect of antidepressant. 10/11 slightly brighter, still spends most of the time in bed. reports anxious mood.passive SI. added famotidine 20mg po daily. 10/12: continue current management and treatment plan. 10/13: continue current management and treatment plan. 10/14: continue current management and treatment plan. 10/15 we discussed switch from trintellix to maoi, wash out period needed before starting selegiline. will lower trintellix to 10mg po daily. change clonazepam to diazepam for anxiety. d/c buspar limited clinical efficacy. 10/16 will lower dose of trintellix 5mg po daily. There should be a 21 wash out period before starting MAOI. may start process here and step down to OP. continue diazepam. 10/17 continue tx. 10/18 start anafranil 25mg po qhs, increase olanzapine to 5mg po q6h prn severe anxiety. valium 5mg po TID, monitor over sedation. 10/19 continue tx. 10/20 plan to increase anafranil. 10/21 continue tx. 10/22 increase anafranil to 50mg po qhs. continue olanzapine and valium. continue trintellix 5mg po daily with plan to d/c. 10/23 continue tx 10/24 increase anafranil to 100mg po qhs. d/c trintellix. decrease valium to 2mg po TID 10/25 continue tx. 10/26: schedule zyprexa 5 mg Q6H PRN to be QID as pt is very regularly asking for the medication. anxious. continue current mgmt otherwise. 10/27: feeling better with scheduled olanzapine, but still anxious. continue current mgmt. 10/28 ortho static hotn, lowered olanzapine from 5mg po QID to TID, had liter of water, BP improved, will continue to monitor. continue ortho VS. 10/29 continue tx. BP stable. 10/30 continue current medications- encourage fluids. continue to monitor ortho hotn 10/31 continue tx. continue to monitor orth hotn. encourage fluids. Reason for continued inpatient stay Substantial Risk for: inability to function Time Spent With Patient Time: Total time managing care of this patient today ____ minutes.
[2024-10-31 09:13] VITALS: BP 109/57; PULSE 98; RESP 16; TEMP 36.6; O2SAT 99
[2024-10-31 10:10] VITALS: BP 106/55; PULSE 92
[2024-10-31 11:20] VITALS: BMI 28.2
[2024-10-31 19:53] VITALS: PULSE 72; RESP 15; TEMP 36.6; O2SAT 94
[2024-10-31 19:54] VITALS: BP 110/58
[2024-11-01] VITALS (7 sets, daily range): BP systolic 72–119; BP diastolic 49–73; PULSE 72–104; RESP 15–16; TEMP 36.5; O2SAT 94–96
--- NOTE | 2024-11-01 09:25 | HO.PSYCHPN ---
Subjective Subjective Date of Service: 11/01/24 Reason For Visit: si Interim History: Pt slept through the night. Very hotn this morning- with ortho static Hotn, recommended IV fluids but pt declined. He did have pitch of water and BP improved, discussed continue to decrease medications contributing to hotn including olanzapine and anafranil, although pt is doing better psychiatrically. added low dose of midodrine, decrease olanzapine from 5mg po TID to 2.5mg po TID, lower anafranil to 50mg po qhs. Review of Systems Review of Systems Denies Mental Status Exam Mental Status Exam Narrative: Appearance: casually groomed, fair hygiene, appears anxious Behavior:cooperative. psychomotor:no agitation or retardation noted Speech:clear, normal rate/rhythm/volume, spontaneous Thought process:linear Thought content:no signs of psychosis, anxious Mood: anxious Affect: constricted, hyper-intense, non-labile SI: none expressed HI: none expressed VH/AH: none expressed Delusions: none expressed Insight/judgment:fair x 2. Memory/cog: alert, oriented x3. Diagnostics Vital Signs (24Hr): Vital Signs - 24 hr 10/31/24 10:10 10/31/24 19:53 10/31/24 19:54 Temperature 97.9 F Pulse Rate 92 72 Respiratory Rate 15 Blood Pressure 106/55 L 110/58 L Pulse Oximetry 94 Oxygen Delivery Method Room Air BMI result Body Mass Index 28.2 Labs 10/18/24 07:58 10/18/24 07:58 Medications Medications Current Medications Acetaminophen (Acetaminophen 325 Mg Tablet) 650 mg PO Q6H PRN PRN Reason: Headache/Pain, Scale 1-10 Al Hydroxide/Mg Hydroxide (Magnesium Hydrox/Alum Hydrox 30 Ml Oral.Susp) 30 ml PO Q6H PRN PRN Reason: Heartburn/Nausea Clomipramine HCl (Clomipramine Hcl 25 Mg Capsule) 100 mg PO BEDTIME [facility] Last Admin: 10/31/24 19:55 Dose: 100 mg Diazepam (Diazepam 2 Mg Tablet) 2 mg PO TID [facility] Last Admin: 11/01/24 08:50 Dose: 2 mg Famotidine (Famotidine 20 Mg Tablet) 20 mg PO DAILY [facility] Last Admin: 11/01/24 08:50 Dose: 20 mg Magnesium Hydroxide (Milk Of Magnesia 30 Ml Oral.Susp) 30 ml PO DAILY PRN PRN Reason: Constipation Olanzapine (Olanzapine 5 Mg Tablet) 5 mg PO TID [facility] Last Admin: 11/01/24 08:50 Dose: 5 mg Omeprazole (Omeprazole 20 Mg Capsule.) 20 mg PO DAILY@0630 [facility] Last Admin: 11/01/24 05:23 Dose: 20 mg Zolpidem Tartrate (Zolpidem Tartrate 5 Mg Tablet) 5 mg PO BEDTIME [facility] Last Admin: 10/31/24 19:55 Dose: 5 mg Allergies Allergies Allergy/AdvReac Type Severity Reaction Status Date / Time ciprofloxacin [From CIPRO] Allergy Unknown DIARRHEA Verified 09/30/24 10:57 Morpholine Analogues Allergy Unknown Unknown Verified 09/30/24 10:57 amoxicillin Allergy Nausea Verified 09/30/24 10:57 meperidine Allergy Unknown Verified 09/30/24 10:57 pollen extracts Allergy Unknown Verified 09/30/24 10:57 Assessment & Plan Assessment & Plan (1) Personality disorder: Status: Acute Code(s): F60.9 - Personality disorder, unspecified (2) Depression, major, severe recurrence: Status: Acute Code(s): F33.2 - Major depressive disorder, recurrent severe without psychotic features (3) Generalized anxiety disorder with panic attacks: Status: Acute Code(s): F41.1 - Generalized anxiety disorder; F41.0 - Panic disorder [episodic paroxysmal anxiety] Plan Mr. Smith is a 74 year-old trans female to male who self presented to [facility] reporting increased depression, suicidal ideation with plan to drown self in bathtub. He reports feelings of abandonment, helplessness, hopelessness, needing care from other. He reports this is in setting of his psychotherapist retiring in April. Unclear if this is the case. He also reports he was at [facility] for last 3 months. Will obtain records from [facility]. Pt signed NADYA. We discussed risks, benefits and alternative treatment options. continue current medications. PLAN 1. Admit to S1, CV, 15 minutes checks for safety 2. continue current medications- trintellix 20mg po daily, buspar 20mg po TID, clonazepam 0.5mg po BID, ambien prn for sleep. 3. obtain collateral information 5. after care plan- consider DBT programming. 10/03: very anxious. continue current regimen for now. 10/04: no change in presentation or plan. 10/05: Patient showered and ports he is extremely anxious about it however does not want any medication changes 10/06 patient remains very anxious; discussed medications and reviewed risks/side effects of Zyprexa which patient agrees to try -Zyprexa 2.5 mg 1 time dose -will make Zyprexa 2.5 mg as a p.r.n. and if effective primary team provider can schedule 10/07 continue tx. encourage behavioral plan to attend to one group a day. 10/08 continue tx. 10/09 plan to add rexulti 0.5mg po daily, boost effect of antidepressant. still [facility] 10/10 started rexulti 0.5mg po daily to boost effect of antidepressant. 10/11 slightly brighter, still spends most of the time in bed. reports anxious mood.passive SI. added famotidine 20mg po daily. 10/12: continue current management and treatment plan. 10/13: continue current management and treatment plan. 10/14: continue current management and treatment plan. 10/15 we discussed switch from trintellix to maoi, wash out period needed before starting selegiline. will lower trintellix to 10mg po daily. change clonazepam to diazepam for anxiety. d/c buspar limited clinical efficacy. 10/16 will lower dose of trintellix 5mg po daily. There should be a 21 wash out period before starting MAOI. may start process here and step down to OP. continue diazepam. 10/17 continue tx. 10/18 start anafranil 25mg po qhs, increase olanzapine to 5mg po q6h prn severe anxiety. valium 5mg po TID, monitor over sedation. 10/19 continue tx. 10/20 plan to increase anafranil. 10/21 continue tx. 10/22 increase anafranil to 50mg po qhs. continue olanzapine and valium. continue trintellix 5mg po daily with plan to d/c. 10/23 continue tx 10/24 increase anafranil to 100mg po qhs. d/c trintellix. decrease valium to 2mg po TID 10/25 continue tx. 10/26: schedule zyprexa 5 mg Q6H PRN to be QID as pt is very regularly asking for the medication. anxious. continue current mgmt otherwise. 10/27: feeling better with scheduled olanzapine, but still anxious. continue current mgmt. 10/28 ortho static hotn, lowered olanzapine from 5mg po QID to TID, had liter of water, BP improved, will continue to monitor. continue ortho VS. 10/29 continue tx. BP stable. 10/30 continue current medications- encourage fluids. continue to monitor ortho hotn 10/31 continue tx. continue to monitor orth hotn. encourage fluids. 11/01 Very hotn this morning- with ortho static Hotn, recommended IV fluids but pt declined. He did have pitch of water and BP improved, discussed continue to decrease medications contributing to hotn including olanzapine and anafranil, although pt is doing better psychiatrically. added low dose of midodrine, decrease olanzapine from 5mg po TID to 2.5mg po TID, lower anafranil to 50mg po qhs. Reason for continued inpatient stay Substantial Risk for: inability to function Time Spent With Patient Time: Total time managing care of this patient today ____ minutes.
--- NOTE | 2024-11-01 16:16 | PC.NURSE ---
Having issues with feeling dizzy when standing MD informed and decrease medications and added a new medication.
[2024-11-02 08:00] VITALS: BP 105/55; BP 131/72; PULSE 108; PULSE 109; RESP 18; TEMP 36.2; O2SAT 98
[2024-11-02 15:27] VITALS: BP 109/70; PULSE 72
[2024-11-02 20:00] VITALS: BP 100/69; PULSE 87; RESP 16; TEMP 36.1; O2SAT 100
--- NOTE | 2024-11-02 23:19 | P.PNPSI_ITS ---
Subjective Subjective Date of Service: 11/02/24 Reason For Visit: si Interim History: met with pt; discussed with team pt says he's alright still anxious but says he's coping with it... and overall feeling better. Mental Status Exam Mental Status Exam Narrative: Appearance: casually groomed, fair hygiene, appears anxious Behavior:cooperative. psychomotor:no agitation or retardation noted Speech:clear, normal rate/rhythm/volume, spontaneous Thought process:linear Thought content:no signs of psychosis, anxious Mood: anxious but coping Affect: constricted, hyper-intense, non-labile SI: none expressed HI: none expressed VH/AH: none expressed Delusions: none expressed Insight/judgment:fair x 2. Memory/cog: alert, oriented x3. Diagnostics Vital Signs (24Hr): Vital Signs - 24 hr 11/02/24 08:00 11/02/24 08:00 11/02/24 15:27 Temperature 97.2 F Pulse Rate 108 H 109 H 72 Respiratory Rate 18 Blood Pressure 131/72 105/55 L 109/70 Pulse Oximetry 98 Oxygen Delivery Method Room Air 11/02/24 20:00 Temperature 97 F Pulse Rate 87 Respiratory Rate 16 Blood Pressure 100/69 Pulse Oximetry 100 Oxygen Delivery Method Room Air BMI result Body Mass Index 28.2 Labs 10/18/24 07:58 10/18/24 07:58 Medications Medications Current Medications Acetaminophen (Acetaminophen 325 Mg Tablet) 650 mg PO Q6H PRN PRN Reason: Headache/Pain, Scale 1-10 Al Hydroxide/Mg Hydroxide (Magnesium Hydrox/Alum Hydrox 30 Ml Oral.Susp) 30 ml PO Q6H PRN PRN Reason: Heartburn/Nausea Clomipramine HCl (Clomipramine Hcl 25 Mg Capsule) 50 mg PO BEDTIME [facility] Last Admin: 11/02/24 21:05 Dose: 50 mg Diazepam (Diazepam 2 Mg Tablet) 2 mg PO TID [facility] Last Admin: 11/02/24 21:06 Dose: 2 mg Famotidine (Famotidine 20 Mg Tablet) 20 mg PO DAILY [facility] Last Admin: 11/02/24 08:24 Dose: 20 mg Magnesium Hydroxide (Milk Of Magnesia 30 Ml Oral.Susp) 30 ml PO DAILY PRN PRN Reason: Constipation Midodrine (Midodrine Hcl 2.5 Mg Tablet) 2.5 mg PO TID [facility] Last Admin: 11/02/24 21:05 Dose: 2.5 mg Olanzapine (Olanzapine 2.5 Mg Tablet) 2.5 mg PO TID [facility] Last Admin: 11/02/24 21:05 Dose: 2.5 mg Omeprazole (Omeprazole 20 Mg Capsule.) 20 mg PO DAILY@0630 [facility] Last Admin: 11/02/24 05:27 Dose: 20 mg Zolpidem Tartrate (Zolpidem Tartrate 5 Mg Tablet) 5 mg PO BEDTIME [facility] Last Admin: 11/02/24 21:06 Dose: 5 mg Allergies Allergies Allergy/AdvReac Type Severity Reaction Status Date / Time ciprofloxacin [From CIPRO] Allergy Unknown DIARRHEA Verified 09/30/24 10:57 Morpholine Analogues Allergy Unknown Unknown Verified 09/30/24 10:57 amoxicillin Allergy Nausea Verified 09/30/24 10:57 meperidine Allergy Unknown Verified 09/30/24 10:57 pollen extracts Allergy Unknown Verified 09/30/24 10:57 Assessment & Plan Assessment & Plan (1) Personality disorder: Status: Acute Code(s): F60.9 - Personality disorder, unspecified (2) Depression, major, severe recurrence: Status: Acute Code(s): F33.2 - Major depressive disorder, recurrent severe without psychotic features (3) Generalized anxiety disorder with panic attacks: Status: Acute Code(s): F41.1 - Generalized anxiety disorder; F41.0 - Panic disorder [episodic paroxysmal anxiety] Plan Mr. Smith is a 74 year-old trans female to male who self presented to [facility] reporting increased depression, suicidal ideation with plan to drown self in bathtub. He reports feelings of abandonment, helplessness, hopelessness, needing care from other. He reports this is in setting of his psychotherapist retiring in April. Unclear if this is the case. He also reports he was at [facility] for last 3 months. Will obtain records from [facility]. Pt signed NADYA. We discussed risks, benefits and alternative treatment options. continue current medications. PLAN 1. Admit to S1, CV, 15 minutes checks for safety 2. continue current medications- trintellix 20mg po daily, buspar 20mg po TID, clonazepam 0.5mg po BID, ambien prn for sleep. 3. obtain collateral information 5. after care plan- consider DBT programming. 10/03: very anxious. continue current regimen for now. 10/04: no change in presentation or plan. 10/05: Patient showered and ports he is extremely anxious about it however does not want any medication changes 10/06 patient remains very anxious; discussed medications and reviewed risks/side effects of Zyprexa which patient agrees to try -Zyprexa 2.5 mg 1 time dose -will make Zyprexa 2.5 mg as a p.r.n. and if effective primary team provider can schedule 10/07 continue tx. encourage behavioral plan to attend to one group a day. 10/08 continue tx. 10/09 plan to add rexulti 0.5mg po daily, boost effect of antidepressant. still waiting for records from [facility]. 10/10 started rexulti 0.5mg po daily to boost effect of antidepressant. 10/11 slightly brighter, still spends most of the time in bed. reports anxious mood.passive SI. added famotidine 20mg po daily. 10/12: continue current management and treatment plan. 10/13: continue current management and treatment plan. 10/14: continue current management and treatment plan. 10/15 we discussed switch from trintellix to maoi, wash out period needed before starting selegiline. will lower trintellix to 10mg po daily. change clonazepam to diazepam for anxiety. d/c buspar limited clinical efficacy. 10/16 will lower dose of trintellix 5mg po daily. There should be a 21 wash out period before starting MAOI. may start process here and step down to OP. continue diazepam. 10/17 continue tx. 10/18 start anafranil 25mg po qhs, increase olanzapine to 5mg po q6h prn severe anxiety. valium 5mg po TID, monitor over sedation. 10/19 continue tx. 10/20 plan to increase anafranil. 10/21 continue tx. 10/22 increase anafranil to 50mg po qhs. continue olanzapine and valium. continue trintellix 5mg po daily with plan to d/c. 10/23 continue tx 10/24 increase anafranil to 100mg po qhs. d/c trintellix. decrease valium to 2mg po TID 10/25 continue tx. 10/26: schedule zyprexa 5 mg Q6H PRN to be QID as pt is very regularly asking for the medication. anxious. continue current mgmt otherwise. 10/27: feeling better with scheduled olanzapine, but still anxious. continue current mgmt. 10/28 ortho static hotn, lowered olanzapine from 5mg po QID to TID, had liter of water, BP improved, will continue to monitor. continue ortho VS. 10/29 continue tx. BP stable. 10/30 continue current medications- encourage fluids. continue to monitor ortho hotn 10/31 continue tx. continue to monitor orth hotn. encourage fluids. 11/01 Very hotn this morning- with ortho static Hotn, recommended IV fluids but pt declined. He did have pitch of water and BP improved, discussed continue to decrease medications contributing to hotn including olanzapine and anafranil, although pt is doing better psychiatrically. added low dose of midodrine, decrease olanzapine from 5mg po TID to 2.5mg po TID, lower anafranil to 50mg po qhs. 11/02 coping w/ anxiety Patient educated on: diagnosis Informed Consent: understands Reason for continued inpatient stay Substantial Risk for: stable for discharge Time Spent With Patient Time: Total time managing care of this patient today ____ minutes.
[2024-11-03 09:48] VITALS: BP 129/50; PULSE 97; RESP 18; TEMP 36.2; O2SAT 94
--- NOTE | 2024-11-03 13:46 | HO.PSYCHPN ---
Subjective Subjective Date of Service: 11/03/24 Reason For Visit: si Interim History: Met with patient; discussed with team Patient says I feel anxious today... And says that it is not the same every day that sometimes he does better than others. Some intermittent dizziness. Mental Status Exam Mental Status Exam Narrative: Appearance: casually groomed, fair hygiene, appears anxious Behavior:cooperative. psychomotor:no agitation or retardation noted Speech:clear, normal rate/rhythm/volume, spontaneous Thought process:linear Thought content:no signs of psychosis, anxious Mood: I feel anxious today Affect: constricted, hyper-intense, non-labile SI: none expressed HI: none expressed VH/AH: none expressed Delusions: none expressed Insight/judgment:fair x 2. Memory/cog: alert, oriented x3. Diagnostics Vital Signs (24Hr): Vital Signs - 24 hr 11/02/24 15:27 11/02/24 20:00 11/03/24 09:48 Temperature 97 F 97.2 F Pulse Rate 72 87 97 Respiratory Rate 16 18 Blood Pressure 109/70 100/69 129/50 L Pulse Oximetry 100 94 Oxygen Delivery Method Room Air Room Air BMI result Body Mass Index 28.2 Labs 10/18/24 07:58 10/18/24 07:58 Medications Medications Current Medications Acetaminophen (Acetaminophen 325 Mg Tablet) 650 mg PO Q6H PRN PRN Reason: Headache/Pain, Scale 1-10 Al Hydroxide/Mg Hydroxide (Magnesium Hydrox/Alum Hydrox 30 Ml Oral.Susp) 30 ml PO Q6H PRN PRN Reason: Heartburn/Nausea Clomipramine HCl (Clomipramine Hcl 25 Mg Capsule) 50 mg PO BEDTIME [facility] Last Admin: 11/02/24 21:05 Dose: 50 mg Famotidine (Famotidine 20 Mg Tablet) 20 mg PO DAILY [facility] Last Admin: 11/03/24 09:49 Dose: 20 mg Magnesium Hydroxide (Milk Of Magnesia 30 Ml Oral.Susp) 30 ml PO DAILY PRN PRN Reason: Constipation Midodrine (Midodrine Hcl 2.5 Mg Tablet) 2.5 mg PO TID [facility] Last Admin: 11/03/24 09:49 Dose: 2.5 mg Olanzapine (Olanzapine 2.5 Mg Tablet) 2.5 mg PO TID [facility] Last Admin: 11/03/24 09:49 Dose: 2.5 mg Omeprazole (Omeprazole 20 Mg Capsule.) 20 mg PO DAILY@0630 [facility] Last Admin: 11/03/24 06:18 Dose: 20 mg Allergies Allergies Allergy/AdvReac Type Severity Reaction Status Date / Time ciprofloxacin [From CIPRO] Allergy Unknown DIARRHEA Verified 09/30/24 10:57 Morpholine Analogues Allergy Unknown Unknown Verified 09/30/24 10:57 amoxicillin Allergy Nausea Verified 09/30/24 10:57 meperidine Allergy Unknown Verified 09/30/24 10:57 pollen extracts Allergy Unknown Verified 09/30/24 10:57 Assessment & Plan Assessment & Plan (1) Personality disorder: Status: Acute Code(s): F60.9 - Personality disorder, unspecified (2) Depression, major, severe recurrence: Status: Acute Code(s): F33.2 - Major depressive disorder, recurrent severe without psychotic features (3) Generalized anxiety disorder with panic attacks: Status: Acute Code(s): F41.1 - Generalized anxiety disorder; F41.0 - Panic disorder [episodic paroxysmal anxiety] Plan Mr. Smith is a 74 year-old trans female to male who self presented to [facility] reporting increased depression, suicidal ideation with plan to drown self in bathtub. He reports feelings of abandonment, helplessness, hopelessness, needing care from other. He reports this is in setting of his psychotherapist retiring in April. Unclear if this is the case. He also reports he was at [facility] for last 3 months. Will obtain records from [facility]. Pt signed NADYA. We discussed risks, benefits and alternative treatment options. continue current medications. PLAN 1. Admit to S1, CV, 15 minutes checks for safety 2. continue current medications- trintellix 20mg po daily, buspar 20mg po TID, clonazepam 0.5mg po BID, ambien prn for sleep. 3. obtain collateral information 5. after care plan- consider DBT programming. 10/03: very anxious. continue current regimen for now. 10/04: no change in presentation or plan. 10/05: Patient showered and ports he is extremely anxious about it however does not want any medication changes 10/06 patient remains very anxious; discussed medications and reviewed risks/side effects of Zyprexa which patient agrees to try -Zyprexa 2.5 mg 1 time dose -will make Zyprexa 2.5 mg as a p.r.n. and if effective primary team provider can schedule 10/07 continue tx. encourage behavioral plan to attend to one group a day. 10/08 continue tx. 10/09 plan to add rexulti 0.5mg po daily, boost effect of antidepressant. still waiting for records from [facility]. 10/10 started rexulti 0.5mg po daily to boost effect of antidepressant. 10/11 slightly brighter, still spends most of the time in bed. reports anxious mood.passive SI. added famotidine 20mg po daily. 10/12: continue current management and treatment plan. 10/13: continue current management and treatment plan. 10/14: continue current management and treatment plan. 10/15 we discussed switch from trintellix to maoi, wash out period needed before starting selegiline. will lower trintellix to 10mg po daily. change clonazepam to diazepam for anxiety. d/c buspar limited clinical efficacy. 10/16 will lower dose of trintellix 5mg po daily. There should be a 21 wash out period before starting MAOI. may start process here and step down to OP. continue diazepam. 10/17 continue tx. 10/18 start anafranil 25mg po qhs, increase olanzapine to 5mg po q6h prn severe anxiety. valium 5mg po TID, monitor over sedation. 10/19 continue tx. 10/20 plan to increase anafranil. 10/21 continue tx. 10/22 increase anafranil to 50mg po qhs. continue olanzapine and valium. continue trintellix 5mg po daily with plan to d/c. 10/23 continue tx 10/24 increase anafranil to 100mg po qhs. d/c trintellix. decrease valium to 2mg po TID 10/25 continue tx. 10/26: schedule zyprexa 5 mg Q6H PRN to be QID as pt is very regularly asking for the medication. anxious. continue current mgmt otherwise. 10/27: feeling better with scheduled olanzapine, but still anxious. continue current mgmt. 10/28 ortho static hotn, lowered olanzapine from 5mg po QID to TID, had liter of water, BP improved, will continue to monitor. continue ortho VS. 10/29 continue tx. BP stable. 10/30 continue current medications- encourage fluids. continue to monitor ortho hotn 10/31 continue tx. continue to monitor orth hotn. encourage fluids. 11/01 Very hotn this morning- with ortho static Hotn, recommended IV fluids but pt declined. He did have pitch of water and BP improved, discussed continue to decrease medications contributing to hotn including olanzapine and anafranil, although pt is doing better psychiatrically. added low dose of midodrine, decrease olanzapine from 5mg po TID to 2.5mg po TID, lower anafranil to 50mg po qhs. 11/02 coping w/ anxiety 11/03 working on coping with anxiety; not concerned with intermittent dizziness saying takes medications for it; vitals WNL Patient educated on: diagnosis, medication risk/benefits and medical condition Informed Consent: understands Reason for continued inpatient stay Substantial Risk for: stable for discharge Time Spent With Patient Time: Total time managing care of this patient today ____ minutes.
[2024-11-03 20:00] VITALS: BP 110/60; PULSE 90; RESP 16; TEMP 36.3; O2SAT 96
[2024-11-04] VITALS (11 sets, daily range): BP systolic 93–157; BP diastolic 51–81; PULSE 72–110; RESP 16; TEMP 36.4–36.6; O2SAT 95–97
--- NOTE | 2024-11-04 | ECG_ITS ---
Test Reason : CK RHYTHM Blood Pressure : */* mmHG Vent. Rate : 64 BPM Atrial Rate : 64 BPM P-R Int : 160 ms QRS Dur : 78 ms QT Int : 418 ms P-R-T Axes : 52 30 41 degrees QTcB Int : 431 ms Normal sinus rhythm Normal ECG When compared with ECG of 30-Sep-2024 15:05, Premature ventricular complexes are no longer Present Referred By: Nichole Cantrell Electronically Signed By: Jl Padilla
--- NOTE | 2024-11-04 08:52 | P.PNPSI_ITS ---
Subjective Subjective Date of Service: 11/04/24 Reason For Visit: si Subjective Notes: Conditional Voluntary Interim History: Pt slept through the night. He continues to have significant ortho hotn, despite lowering dose of medications contributing to this including olanzapine and anafranil. He is also on midodrine and reports drinking more fluids. He reports anxiety is less with current medications. He denies SI/HI. He is anxious about returning home and being on his own. Diagnostics Vital Signs (24Hr): Vital Signs - 24 hr 11/03/24 09:48 11/03/24 20:00 11/04/24 08:30 Temperature 97.2 F 97.3 F Pulse Rate 97 90 Respiratory Rate 18 16 Blood Pressure 129/50 L 110/60 128/58 L Pulse Oximetry 94 96 Oxygen Delivery Method Room Air Room Air BMI result Body Mass Index 28.2 Labs 10/18/24 07:58 10/18/24 07:58 Medications Medications Current Medications Acetaminophen (Acetaminophen 325 Mg Tablet) 650 mg PO Q6H PRN PRN Reason: Headache/Pain, Scale 1-10 Al Hydroxide/Mg Hydroxide (Magnesium Hydrox/Alum Hydrox 30 Ml Oral.Susp) 30 ml PO Q6H PRN PRN Reason: Heartburn/Nausea Clomipramine HCl (Clomipramine Hcl 25 Mg Capsule) 50 mg PO BEDTIME [facility] Last Admin: 11/03/24 20:51 Dose: 50 mg Famotidine (Famotidine 20 Mg Tablet) 20 mg PO DAILY [facility] Last Admin: 11/04/24 08:29 Dose: 20 mg Magnesium Hydroxide (Milk Of Magnesia 30 Ml Oral.Susp) 30 ml PO DAILY PRN PRN Reason: Constipation Midodrine (Midodrine Hcl 2.5 Mg Tablet) 2.5 mg PO TID [facility] Last Admin: 11/04/24 08:30 Dose: 2.5 mg Olanzapine (Olanzapine 2.5 Mg Tablet) 2.5 mg PO TID [facility] Last Admin: 11/04/24 08:31 Dose: 2.5 mg Omeprazole (Omeprazole 20 Mg Capsule.Dr) 20 mg PO DAILY@0630 [facility] Last Admin: 11/04/24 06:03 Dose: 20 mg Zolpidem Tartrate (Zolpidem Tartrate 5 Mg Tablet) 5 mg PO BEDTIME [facility] Allergies Allergies Allergy/AdvReac Type Severity Reaction Status Date / Time ciprofloxacin [From CIPRO] Allergy Unknown DIARRHEA Verified 09/30/24 10:57 Morpholine Analogues Allergy Unknown Unknown Verified 09/30/24 10:57 amoxicillin Allergy Nausea Verified 09/30/24 10:57 meperidine Allergy Unknown Verified 09/30/24 10:57 pollen extracts Allergy Unknown Verified 09/30/24 10:57 Assessment & Plan Assessment & Plan (1) Personality disorder: Status: Acute Code(s): F60.9 - Personality disorder, unspecified (2) Depression, major, severe recurrence: Status: Acute Code(s): F33.2 - Major depressive disorder, recurrent severe without psychotic features (3) Generalized anxiety disorder with panic attacks: Status: Acute Code(s): F41.1 - Generalized anxiety disorder; F41.0 - Panic disorder [episodic paroxysmal anxiety] Plan Mr. Smith is a 74 year-old trans female to male who self presented to [facility] reporting increased depression, suicidal ideation with plan to drown self in bathtub. He reports feelings of abandonment, helplessness, hopelessness, needing care from other. He reports this is in setting of his psychotherapist retiring in April. Unclear if this is the case. He also reports he was at [facility] for last 3 months. Will obtain records from [facility]. Pt signed NADYA. We discussed risks, benefits and alternative treatment options. continue current medications. PLAN 11/04 continue to present with ortho HOTN, SBP dropping when standing by 20 points, this despite lowering olanzapine from 5mg po TID to 2.5mg po TID and lowering anafranil to 50mg po qhs. Pt has been drinking more fluids. May need IV fluids, although pt hesitant to receive fluids. Reason for continued inpatient stay Substantial Risk for: inability to function Time Spent With Patient Time: Total time managing care of this patient today ____ minutes.
--- NOTE | 2024-11-04 12:39 | PC.NURSE ---
While the patient was sitting at the lunch table he wanted his nurse to walk him back to his room because he was worried about getting dizzy and falling. His nurse was busy so I repeated his orthos and they were at 1200 132/70, P82 sitting and after standing 2 minutes B/P dropped to 109/68 and P up to 100 bpm. Lucinda Platt [employer] updated.
--- NOTE | 2024-11-04 14:54 | HO.PM.IMPN ---
Subjective Subjective Date of Service: 11/04/24 Interval History: 74-year-old transgender female to male with a history of severe recurrent depression, anxiety with panic attacks, dependent personality disorder, GERD, Rosie's disease and tracheal stenosis transferred here for care with ongoing depression, anxiety and suicidal ideations. Patient is being seen for orthostatic hypotension. Patient with systolic blood pressure dropped when standing by 20 points per reports of staff. On exam she denies any shortness of breath, dizziness, lightheadedness, headaches or any other concerning symptoms. Patient reports being fearful of discharge. Review of Systems Denies any shortness of breath, chest pain, dizziness, lightheadedness, abdominal pain or discomfort, nausea vomiting or diarrhea Physical Exam Vital Signs: Vital Signs: Last Vital Signs Temp 97.5 F 11/04/24 08:00 Pulse 100 11/04/24 12:02 Resp 16 11/04/24 08:00 BP 109/68 11/04/24 12:02 Pulse Ox 95 11/04/24 08:00 O2 Del Method Room Air 11/04/24 08:00 BMI result Body Mass Index 28.2 CONST: Alert and oriented, in NAD. Well nourished. Anxious HEENT: Normocephalic, atraumatic, MMM, Eyes clear, Neck supple RESP: Lungs clear, RRR even and regular HEART:,RRR, S1, S2. No murmur, no edema GI:Abdomen Soft NT, ND. + BS times four :Deferred SKIN: Warm dry and intact, no visible lesions or rashes NEURO:CN II-XII Intact bilaterally, Sensation intact. Speech clear PSYCH: Anxious affect Objective Data Active Medications Acetaminophen (Acetaminophen 325 Mg Tablet) 650 mg PO Q6H PRN PRN Reason: Headache/Pain, Scale 1-10 Al Hydroxide/Mg Hydroxide (Magnesium Hydrox/Alum Hydrox 30 Ml Oral.Susp) 30 ml PO Q6H PRN PRN Reason: Heartburn/Nausea Clomipramine HCl (Clomipramine Hcl 25 Mg Capsule) 50 mg PO BEDTIME [facility] Last Admin: 11/03/24 20:51 Dose: 50 mg Documented By: TAMMI Famotidine (Famotidine 20 Mg Tablet) 20 mg PO DAILY [facility] Last Admin: 11/04/24 08:29 Dose: 20 mg Documented By: DARRYN Magnesium Hydroxide (Milk Of Magnesia 30 Ml Oral.Susp) 30 ml PO DAILY PRN PRN Reason: Constipation Midodrine (Midodrine Hcl 5 Mg Tablet) 5 mg PO TID@0900,1500,1700 [facility] Olanzapine (Olanzapine 2.5 Mg Tablet) 2.5 mg PO TID [facility] Last Admin: 11/04/24 08:31 Dose: 2.5 mg Documented By: DARRYN Omeprazole (Omeprazole 20 Mg Capsule.Dr) 20 mg PO DAILY@0630 [facility] Last Admin: 11/04/24 06:03 Dose: 20 mg Documented By: TMAMI Zolpidem Tartrate (Zolpidem Tartrate 5 Mg Tablet) 5 mg PO BEDTIME [facility] Labs 10/18/24 07:58 10/18/24 07:58 Assessment and Plan (1) Orthostatic hypotension: Status: Acute Plan Depression/suicidal ideation Continue treatment plan per Psychiatry Orthostatic hypotension Most likely related to medications. Psych following Recommend avoiding any sedative meds Last EKG with normal sinus rhythm. Will check for arrhythmia Update labs- Last CBC with mild anemia. Check Iron studies Midodrine increased to 5 mg t.i.d. One liter Normal saline If no improvement we will consider Nephrology input. Quality Stroke Does the patient have a stroke diagnosis?: No VTE Prior VTE?: No VTE Risk Level:: Medical - low VTE Device Contraindication: Treatment Not Indicated VTE Drug Contraindication: Treatment Not Indicated
[2024-11-05] VITALS (9 sets, daily range): BP systolic 83–116; BP diastolic 49–59; PULSE 55–103; RESP 16; TEMP 36.3–36.4; O2SAT 97–100
[2024-11-05 08:39] LABS: Hematocrit 37.3 % (42.0-52.0); Hemoglobin 11.9 g/dl (14.0-18.0); Imm Gran Abs Auto 0.05 X10*3/uL (0.00-0.03); Imm Gran Pct Auto 0.5 % (0.0-0.4); Lymphocytes Absolute Auto 1.7 X10*3/uL (1.2-4.9); MANUAL DIFF FLAG SCAN; Mean Corpuscular HGB Conc 31.9 g/dl (31.0-36.0); Mean Corpuscular Hemoglobin 29.2 pg (27.0-33.0); Mean Corpuscular Volume 91.6 fL (80.0-98.0); NRBC Abs Auto 0.000 X10*3/uL (0.0-0.012); NRBC Pct Auto 0.0 /100WBC (0.0-0.2); Platelet Count 439 X10*3/uL (160-400); Red Blood Count 4.07 X10*6/uL (4.60-5.80); SCAN SMEAR FLAG 1; White Blood Count 10.1 X10*3/uL (4.8-10.8)
[2024-11-05 09:06] LABS: Anion Gap 15 (12-20); Blood Urea Nitrogen 9 mg/dL (9-16); Calcium 9.7 mg/dL (8.4-10.2); Carbon Dioxide 25 mmol/L (22-29); Chloride 107 mmol/L (96-108); Creatinine Clr Calc Pharmacy 76.8; Estimated Glomerular Filt Rate > 60; Iron 45 mcg/dL (45-160); Percent Iron Saturation 15 % (15-50); Potassium 4.0 mmol/L (3.3-5.1); Sodium 143 mmol/L (135-145); Total Iron Binding Capacity 304 mcg/dL (228-428); Unsaturated Iron Binding 259 ug/dL
--- NOTE | 2024-11-05 09:19 | HO.PSYCHPN ---
Subjective Subjective Date of Service: 11/05/24 Reason For Visit: si Subjective Notes: Conditional Voluntary Interim History: Pt slept through the night. He had again another episode of ortho hotn, SBP dropping 20 points. He reports lightheaded and dizzy when ambulating. He was seen by hospitalist. anafranil decreased to 25mg po qhs with plan to switch to sertraline. He reports olanzapine 2.5mg po TID helps greatly with s/s of anxiety. Encourage to drink fluids. Medication Compliance: Yes Review of Systems Review of Systems Denies any shortness of breath, chest pain, dizziness, lightheadedness, abdominal pain or discomfort, nausea vomiting or diarrhea Mental Status Exam Mental Status Exam Narrative: Appearance: marginal hygiene, appears anxious Behavior:cooperative. psychomotor:no agitation or retardation noted Speech:clear, normal rate/rhythm/volume, spontaneous Thought process:linear Thought content:no signs of psychosis, anxious Mood: I feel anxious today Affect: constricted, hyper-intense, non-labile SI: none expressed HI: none expressed VH/AH: none expressed Delusions: none expressed Insight/judgment:fair x 2. Memory/cog: alert, oriented x3. Diagnostics Vital Signs (24Hr): Vital Signs - 24 hr 11/04/24 10:22 11/04/24 10:23 11/04/24 11:17 Temperature Pulse Rate 100 110 H Respiratory Rate Blood Pressure 113/56 L 93/51 L 93/51 L Pulse Oximetry Oxygen Delivery Method 11/04/24 12:00 11/04/24 12:02 11/04/24 16:10 Temperature Pulse Rate 82 100 Respiratory Rate Blood Pressure 132/70 109/68 157/81 H Pulse Oximetry Oxygen Delivery Method 11/04/24 16:17 11/04/24 17:39 11/04/24 20:00 Temperature 97.9 F Pulse Rate 85 72 Respiratory Rate 16 Blood Pressure 157/81 H 113/54 L 118/75 Pulse Oximetry 97 Oxygen Delivery Method Room Air BMI result Body Mass Index 28.2 Labs 11/05/24 07:31 11/05/24 07:31 Labs: Laboratory Results - last 48 hr 11/05/24 07:31 WBC 10.1 RBC 4.07 L Hgb 11.9 L Hct 37.3 L MCV 91.6 MCH 29.2 MCHC 31.9 RDW 13.3 Plt Count 439 H MPV 10.5 Immature Gran % (Auto) 0.5 H Neut % (Auto) 63.0 Lymph % (Auto) 17.0 L [place] % (Auto) 17.0 H Eos % (Auto) 2.2 Baso % (Auto) 0.3 Lymph # (Auto) 1.7 [place] # (Auto) 1.7 H Eos # (Auto) 0.2 Baso # (Auto) 0.0 Abs Immat Gran (auto) 0.05 H Absolute Neuts (auto) 6.4 Absolute Nucleated RBC 0.000 Nucleated RBC % (auto) 0.0 Smear Tech's Comments VERIFIED Sodium 143 Potassium 4.0 Chloride 107 Carbon Dioxide 25 Anion Gap 15 BUN 9 Creatinine 0.74 Estim Creat Clear Calc 76.8 Estimated GFR > 60 Random Glucose 86 Calcium 9.7 Iron 45 TIBC 304 % Saturation 15 Unsat Iron Binding 259 Medications Medications Current Medications Acetaminophen (Acetaminophen 325 Mg Tablet) 650 mg PO Q6H PRN PRN Reason: Headache/Pain, Scale 1-10 Al Hydroxide/Mg Hydroxide (Magnesium Hydrox/Alum Hydrox 30 Ml Oral.Susp) 30 ml PO Q6H PRN PRN Reason: Heartburn/Nausea Clomipramine HCl (Clomipramine Hcl 25 Mg Capsule) 25 mg PO BEDTIME [facility] Last Admin: 11/04/24 20:17 Dose: 25 mg Famotidine (Famotidine 20 Mg Tablet) 20 mg PO DAILY [facility] Last Admin: 11/04/24 08:29 Dose: 20 mg Magnesium Hydroxide (Milk Of Magnesia 30 Ml Oral.Susp) 30 ml PO DAILY PRN PRN Reason: Constipation Midodrine (Midodrine Hcl 5 Mg Tablet) 5 mg PO TID@0900,1500,1700 [facility] Last Admin: 11/04/24 17:39 Dose: 5 mg Olanzapine (Olanzapine 2.5 Mg Tablet) 2.5 mg PO TID [facility] Last Admin: 11/04/24 20:16 Dose: 2.5 mg Omeprazole (Omeprazole 20 Mg Capsule.Dr) 20 mg PO DAILY@0630 [facility] Last Admin: 11/05/24 05:51 Dose: 20 mg Sertraline HCl (Sertraline Hcl 50 Mg Tablet) 50 mg PO DAILY [facility] Zolpidem Tartrate (Zolpidem Tartrate 5 Mg Tablet) 5 mg PO BEDTIME [facility] Last Admin: 11/04/24 20:17 Dose: 5 mg Allergies Allergies Allergy/AdvReac Type Severity Reaction Status Date / Time ciprofloxacin [From CIPRO] Allergy Unknown DIARRHEA Verified 09/30/24 10:57 Morpholine Analogues Allergy Unknown Unknown Verified 09/30/24 10:57 amoxicillin Allergy Nausea Verified 09/30/24 10:57 meperidine Allergy Unknown Verified 09/30/24 10:57 pollen extracts Allergy Unknown Verified 09/30/24 10:57 Assessment & Plan Assessment & Plan (1) MDD (major depressive disorder), recurrent episode, moderate: Status: Acute Code(s): F33.1 - Major depressive disorder, recurrent, moderate (2) Dependent personality disorder: Status: Acute Code(s): F60.7 - Dependent personality disorder (3) Orthostatic hypotension: Status: Acute Code(s): I95.1 - Orthostatic hypotension (4) Generalized anxiety disorder with panic attacks: Status: Acute Code(s): F41.1 - Generalized anxiety disorder; F41.0 - Panic disorder [episodic paroxysmal anxiety] Plan Mr. Smith is a 74 year-old trans female to male who self presented to [facility] reporting increased depression, suicidal ideation with plan to drown self in bathtub. He reports feelings of abandonment, helplessness, hopelessness, needing care from other. He reports this is in setting of his psychotherapist retiring in April. Unclear if this is the case. He also reports he was at [facility] for last 3 months. Will obtain records from [facility]. Pt signed NADYA. We discussed risks, benefits and alternative treatment options. continue current medications. PLAN 11/04 continue to present with ortho HOTN, SBP dropping when standing by 20 points, this despite lowering olanzapine from 5mg po TID to 2.5mg po TID and lowering anafranil to 50mg po qhs. Pt has been drinking more fluids. May need IV fluids, although pt hesitant to receive fluids. 11/05 continue tx. Reason for continued inpatient stay Substantial Risk for: inability to function Time Spent With Patient Time: Total time managing care of this patient today ____ minutes.
[2024-11-05 09:45] LABS: Ferritin 124 ng/mL (20-250)
[2024-11-06] VITALS (7 sets, daily range): BP systolic 96–134; BP diastolic 54–67; PULSE 75–106; RESP 18; TEMP 36.4–36.8; O2SAT 96–100
--- NOTE | 2024-11-06 20:40 | P.PNPSI_ITS ---
Subjective Subjective Date of Service: 11/06/24 Reason For Visit: si Subjective Notes: Conditional Voluntary Interim History: Pt slept through the night. less dizziness today, He has been more visible on the unit. He reports less anxious mood. However, concern in terms of pt needing more assistance than what he has at home. No psychosis. improved hygiene. Review of Systems Review of Systems Denies any shortness of breath, chest pain, dizziness, lightheadedness, abdominal pain or discomfort, nausea vomiting or diarrhea Mental Status Exam Mental Status Exam Narrative: Appearance: marginal hygiene, appears anxious Behavior:cooperative. psychomotor:no agitation or retardation noted Speech:clear, normal rate/rhythm/volume, spontaneous Thought process:linear Thought content:no signs of psychosis, anxious Mood: I feel anxious today Affect: constricted, hyper-intense, non-labile SI: none expressed HI: none expressed VH/AH: none expressed Delusions: none expressed Insight/judgment:fair x 2. Memory/cog: alert, oriented x3. Diagnostics Vital Signs (24Hr): Vital Signs - 24 hr 11/06/24 08:00 11/06/24 08:00 11/06/24 08:00 Temperature Pulse Rate 81 96 106 H Respiratory Rate Blood Pressure 134/65 113/65 96/56 L Pulse Oximetry Oxygen Delivery Method 11/06/24 08:00 11/06/24 09:13 11/06/24 14:36 Temperature 98.2 F Pulse Rate 106 H 75 Respiratory Rate Blood Pressure 96/56 L 96/56 L 108/67 Pulse Oximetry 100 Oxygen Delivery Method Room Air 11/06/24 14:37 11/06/24 16:00 11/06/24 17:18 Temperature Pulse Rate 75 88 Respiratory Rate Blood Pressure 108/67 109/54 L 109/55 L Pulse Oximetry Oxygen Delivery Method 11/06/24 20:00 Temperature 97.6 F Pulse Rate 81 Respiratory Rate 18 Blood Pressure 126/60 Pulse Oximetry 96 Oxygen Delivery Method Room Air BMI result Body Mass Index 28.2 Labs 11/05/24 07:31 11/05/24 07:31 Labs: Laboratory Results - last 48 hr 11/05/24 07:31 WBC 10.1 RBC 4.07 L Hgb 11.9 L Hct 37.3 L MCV 91.6 MCH 29.2 MCHC 31.9 RDW 13.3 Plt Count 439 H MPV 10.5 Immature Gran % (Auto) 0.5 H Neut % (Auto) 63.0 Lymph % (Auto) 17.[address] [facility] % (Auto) 17.0 H Eos % (Auto) 2.2 Baso % (Auto) 0.3 Lymph # (Auto) 1.7 [facility] # (Auto) 1.7 H Eos # (Auto) 0.2 Baso # (Auto) 0.0 Abs Immat Gran (auto) 0.05 H Absolute Neuts (auto) 6.4 Absolute Nucleated RBC 0.000 Nucleated RBC % (auto) 0.0 Smear Tech's Comments VERIFIED Sodium 143 Potassium 4.0 Chloride 107 Carbon Dioxide 25 Anion Gap 15 BUN 9 Creatinine 0.74 Estim Creat Clear Calc 76.8 Estimated GFR > 60 Random Glucose 86 Calcium 9.7 Iron 45 TIBC 304 % Saturation 15 Unsat Iron Binding 259 Ferritin 124 Medications Medications Current Medications Acetaminophen (Acetaminophen 325 Mg Tablet) 650 mg PO Q6H PRN PRN Reason: Headache/Pain, Scale 1-10 Al Hydroxide/Mg Hydroxide (Magnesium Hydrox/Alum Hydrox 30 Ml Oral.Susp) 30 ml PO Q6H PRN PRN Reason: Heartburn/Nausea Clomipramine HCl (Clomipramine Hcl 25 Mg Capsule) 25 mg PO BEDTIME [facility] Last Admin: 11/05/24 20:44 Dose: 25 mg Diazepam (Diazepam 2 Mg Tablet) 1 mg PO TID [facility] Last Admin: 11/06/24 14:41 Dose: 1 mg Famotidine (Famotidine 20 Mg Tablet) 20 mg PO DAILY [facility] Last Admin: 11/06/24 09:14 Dose: 20 mg Magnesium Hydroxide (Milk Of Magnesia 30 Ml Oral.Susp) 30 ml PO DAILY PRN PRN Reason: Constipation Midodrine (Midodrine Hcl 5 Mg Tablet) 5 mg PO TID@0900,1500,1700 [facility] Last Admin: 11/06/24 17:18 Dose: 5 mg Olanzapine (Olanzapine 2.5 Mg Tablet) 2.5 mg PO TID [facility] Last Admin: 11/06/24 14:41 Dose: 2.5 mg Omeprazole (Omeprazole 20 Mg Capsule.Dr) 20 mg PO DAILY@0630 [facility] Last Admin: 11/06/24 06:18 Dose: 20 mg Sertraline HCl (Sertraline Hcl 50 Mg Tablet) 50 mg PO DAILY [facility] Last Admin: 11/06/24 09:14 Dose: 50 mg Zolpidem Tartrate (Zolpidem Tartrate 5 Mg Tablet) 5 mg PO BEDTIME [facility] Last Admin: 11/05/24 20:45 Dose: 5 mg Allergies Allergies Allergy/AdvReac Type Severity Reaction Status Date / Time ciprofloxacin (From CIPRO) Allergy Unknown DIARRHEA Verified 09/30/24 10:57 Morpholine Analogues Allergy Unknown Unknown Verified 09/30/24 10:57 amoxicillin Allergy Nausea Verified 09/30/24 10:57 meperidine Allergy Unknown Verified 09/30/24 10:57 pollen extracts Allergy Unknown Verified 09/30/24 10:57 Assessment & Plan Assessment & Plan (1) MDD (major depressive disorder), recurrent episode, moderate: Status: Acute Code(s): F33.1 - Major depressive disorder, recurrent, moderate (2) Dependent personality disorder: Status: Acute Code(s): F60.7 - Dependent personality disorder (3) Orthostatic hypotension: Status: Acute Code(s): I95.1 - Orthostatic hypotension (4) Generalized anxiety disorder with panic attacks: Status: Acute Code(s): F41.1 - Generalized anxiety disorder; F41.0 - Panic disorder [episodic paroxysmal anxiety] Plan Mr. Smith is a 74 year-old trans female to male who self presented to [facility] reporting increased depression, suicidal ideation with plan to drown self in bathtub. He reports feelings of abandonment, helplessness, hopelessness, needing care from other. He reports this is in setting of his psychotherapist retiring in April. Unclear if this is the case. He also reports he was at [facility] for last 3 months. Will obtain records from [facility]. Pt signed NADYA. We discussed risks, benefits and alternative treatment options. continue current medications. PLAN 11/04 continue to present with ortho HOTN, SBP dropping when standing by 20 points, this despite lowering olanzapine from 5mg po TID to 2.5mg po TID and lowering anafranil to 50mg po qhs. Pt has been drinking more fluids. May need IV fluids, although pt hesitant to receive fluids. 11/05 continue tx. 11/06 continue tx. anafranil lowered to 25mg po qhs. continue sertraline 50mg po daily with plan to titrate. Reason for continued inpatient stay Substantial Risk for: inability to function Time Spent With Patient Time: Total time managing care of this patient today ____ minutes.
[2024-11-07] VITALS (7 sets, daily range): BP systolic 119–149; BP diastolic 57–72; PULSE 66–105; RESP 14–18; TEMP 36.4–36.6; O2SAT 96; BMI 28.0
--- NOTE | 2024-11-07 21:41 | P.PNPSI_ITS ---
Subjective Subjective Date of Service: 11/07/24 Reason For Visit: si Subjective Notes: Conditional Voluntary Interim History: Pt slept through the night. less dizziness today, He has been more visible on the unit. He reports less anxious mood. However, concern in terms of pt needing more assistance than what he has at home. No psychosis. improved hygiene. we discussed increasing sertraline to 100mg po qhs, d/c anafranil. may try in few days if BP stable and not orthostatic, decreasing midodrine. Review of Systems Review of Systems Denies any shortness of breath, chest pain, dizziness, lightheadedness, abdominal pain or discomfort, nausea vomiting or diarrhea Mental Status Exam Mental Status Exam Narrative: Appearance: marginal hygiene, appears anxious Behavior:cooperative. psychomotor:no agitation or retardation noted Speech:clear, normal rate/rhythm/volume, spontaneous Thought process:linear Thought content:no signs of psychosis, anxious Mood: I feel anxious today Affect: constricted, hyper-intense, non-labile SI: none expressed HI: none expressed VH/AH: none expressed Delusions: none expressed Insight/judgment:fair x 2. Memory/cog: alert, oriented x3. Patient Appearance: Appropriate Patient Orientation: Person, Place and Situation Level of Consciousness: Alert Patient Behavior: Appropriate, Talkative, Cooperative and Good Eye Contact Mood Description: Constricted Affect Description: Constricted Patient Cognition Impaired: No Ability to Follow Directions: Good Speech Pattern: Spontaneous Speech Memory Description: Intact Diagnostics Vital Signs (24Hr): Vital Signs - 24 hr 11/07/24 08:00 11/07/24 08:30 11/07/24 08:34 Temperature 97.9 F Pulse Rate 105 H Respiratory Rate 14 Blood Pressure 130/57 L 126/57 L 126/57 L Pulse Oximetry Oxygen Delivery Method Room Air 11/07/24 15:54 11/07/24 16:05 11/07/24 18:37 Temperature Pulse Rate 66 Respiratory Rate Blood Pressure 124/61 119/68 119/68 Pulse Oximetry Oxygen Delivery Method 11/07/24 20:00 Temperature 97.5 F Pulse Rate 85 Respiratory Rate 18 Blood Pressure 149/72 H Pulse Oximetry 96 Oxygen Delivery Method Room Air BMI result Body Mass Index 28.0 Labs 11/05/24 07:31 11/05/24 07:31 Medications Medications Current Medications Acetaminophen (Acetaminophen 325 Mg Tablet) 650 mg PO Q6H PRN PRN Reason: Headache/Pain, Scale 1-10 Al Hydroxide/Mg Hydroxide (Magnesium Hydrox/Alum Hydrox 30 Ml Oral.Susp) 30 ml PO Q6H PRN PRN Reason: Heartburn/Nausea Diazepam (Diazepam 2 Mg Tablet) 1 mg PO TID [facility] Last Admin: 11/07/24 20:26 Dose: 1 mg Famotidine (Famotidine 20 Mg Tablet) 20 mg PO DAILY [facility] Last Admin: 11/07/24 08:32 Dose: 20 mg Magnesium Hydroxide (Milk Of Magnesia 30 Ml Oral.Susp) 30 ml PO DAILY PRN PRN Reason: Constipation Midodrine (Midodrine Hcl 5 Mg Tablet) 5 mg PO TID@0900,1500,1800 [facility] Last Admin: 11/07/24 20:12 Dose: Not Given Olanzapine (Olanzapine 2.5 Mg Tablet) 2.5 mg PO TID [facility] Last Admin: 11/07/24 20:28 Dose: 2.5 mg Omeprazole (Omeprazole 20 Mg Capsule.Dr) 20 mg PO DAILY@0630 [facility] Last Admin: 11/07/24 06:12 Dose: 20 mg Sertraline HCl (Sertraline Hcl 100 Mg Tablet) 100 mg PO DAILY [facility] Zolpidem Tartrate (Zolpidem Tartrate 5 Mg Tablet) 5 mg PO BEDTIME [facility] Last Admin: 11/07/24 20:28 Dose: 5 mg Allergies Allergies Allergy/AdvReac Type Severity Reaction Status Date / Time ciprofloxacin (From CIPRO) Allergy Unknown DIARRHEA Verified 09/30/24 10:57 Morpholine Analogues Allergy Unknown Unknown Verified 09/30/24 10:57 amoxicillin Allergy Nausea Verified 09/30/24 10:57 meperidine Allergy Unknown Verified 09/30/24 10:57 pollen extracts Allergy Unknown Verified 09/30/24 10:57 Assessment & Plan Assessment & Plan (1) MDD (major depressive disorder), recurrent episode, moderate: Status: Acute Code(s): F33.1 - Major depressive disorder, recurrent, moderate (2) Dependent personality disorder: Status: Acute Code(s): F60.7 - Dependent personality disorder (3) Orthostatic hypotension: Status: Acute Code(s): I95.1 - Orthostatic hypotension (4) Generalized anxiety disorder with panic attacks: Status: Acute Code(s): F41.1 - Generalized anxiety disorder; F41.0 - Panic disorder [episodic paroxysmal anxiety] Plan Mr. Smith is a 74 year-old trans female to male who self presented to [facility] reporting increased depression, suicidal ideation with plan to drown self in bathtub. He reports feelings of abandonment, helplessness, hopelessness, needing care from other. He reports this is in setting of his psychotherapist retiring in April. Unclear if this is the case. He also reports he was at [facility] for last 3 months. Will obtain records from [facility]. Pt signed NADYA. We discussed risks, benefits and alternative treatment options. continue current medications. PLAN 11/04 continue to present with ortho HOTN, SBP dropping when standing by 20 points, this despite lowering olanzapine from 5mg po TID to 2.5mg po TID and lowering anafranil to 50mg po qhs. Pt has been drinking more fluids. May need IV fluids, although pt hesitant to receive fluids. 11/05 continue tx. 11/06 continue tx. 11/07 d/c anafranil. increase sertraline to 100mg po daily, continue olanzapine 2.5mg po TID. Reason for continued inpatient stay Substantial Risk for: inability to function Time Spent With Patient Time: Total time managing care of this patient today ____ minutes.
[2024-11-08 08:00] VITALS: BP 133/80; BP 97/53; PULSE 87; PULSE 88; RESP 16; TEMP 36.9; O2SAT 95
--- NOTE | 2024-11-08 08:59 | P.PNPSI_ITS ---
Subjective Subjective Date of Service: 11/08/24 Reason For Visit: si Subjective Notes: Conditional Voluntary Interim History: Pt slept through the night. Pt reports feeling less anxious. He also presents with less dropping of BP. No SI/HI. No psychosis. concern in terms of his over all ability to care for himself despite improvement of his mood. Review of Systems Review of Systems Denies any shortness of breath, chest pain, dizziness, lightheadedness, abdominal pain or discomfort, nausea vomiting or diarrhea Mental Status Exam Mental Status Exam Narrative: Appearance: marginal hygiene, appears anxious Behavior:cooperative. psychomotor:no agitation or retardation noted Speech:clear, normal rate/rhythm/volume, spontaneous Thought process:linear Thought content:no signs of psychosis, anxious Mood: I feel anxious today Affect: constricted, hyper-intense, non-labile SI: none expressed HI: none expressed VH/AH: none expressed Delusions: none expressed Insight/judgment:fair x 2. Memory/cog: alert, oriented x3. Diagnostics Vital Signs (24Hr): Vital Signs - 24 hr 11/07/24 15:54 11/07/24 16:05 11/07/24 18:37 Temperature Pulse Rate 66 Respiratory Rate Blood Pressure 124/61 119/68 119/68 Pulse Oximetry Oxygen Delivery Method 11/07/24 20:00 Temperature 97.5 F Pulse Rate 85 Respiratory Rate 18 Blood Pressure 149/72 H Pulse Oximetry 96 Oxygen Delivery Method Room Air BMI result Body Mass Index 28.0 Labs 11/05/24 07:31 11/05/24 07:31 Medications Medications Current Medications Acetaminophen (Acetaminophen 325 Mg Tablet) 650 mg PO Q6H PRN PRN Reason: Headache/Pain, Scale 1-10 Al Hydroxide/Mg Hydroxide (Magnesium Hydrox/Alum Hydrox 30 Ml Oral.Susp) 30 ml PO Q6H PRN PRN Reason: Heartburn/Nausea Diazepam (Diazepam 2 Mg Tablet) 1 mg PO TID [facility] Last Admin: 11/07/24 20:26 Dose: 1 mg Famotidine (Famotidine 20 Mg Tablet) 20 mg PO DAILY [facility] Last Admin: 11/07/24 08:32 Dose: 20 mg Magnesium Hydroxide (Milk Of Magnesia 30 Ml Oral.Susp) 30 ml PO DAILY PRN PRN Reason: Constipation Midodrine (Midodrine Hcl 5 Mg Tablet) 5 mg PO TID@0900,1500,1800 [facility] Last Admin: 11/07/24 20:12 Dose: Not Given Olanzapine (Olanzapine 2.5 Mg Tablet) 2.5 mg PO TID [facility] Last Admin: 11/07/24 20:28 Dose: 2.5 mg Omeprazole (Omeprazole 20 Mg Capsule.Dr) 20 mg PO DAILY@0630 [facility] Last Admin: 11/08/24 05:58 Dose: 20 mg Sertraline HCl (Sertraline Hcl 100 Mg Tablet) 100 mg PO DAILY [facility] Zolpidem Tartrate (Zolpidem Tartrate 5 Mg Tablet) 5 mg PO BEDTIME [facility] Last Admin: 11/07/24 20:28 Dose: 5 mg Allergies Allergies Allergy/AdvReac Type Severity Reaction Status Date / Time ciprofloxacin (From CIPRO) Allergy Unknown DIARRHEA Verified 09/30/24 10:57 Morpholine Analogues Allergy Unknown Unknown Verified 09/30/24 10:57 amoxicillin Allergy Nausea Verified 09/30/24 10:57 meperidine Allergy Unknown Verified 09/30/24 10:57 pollen extracts Allergy Unknown Verified 09/30/24 10:57 Assessment & Plan Assessment & Plan (1) MDD (major depressive disorder), recurrent episode, moderate: Status: Acute Code(s): F33.1 - Major depressive disorder, recurrent, moderate (2) Dependent personality disorder: Status: Acute Code(s): F60.7 - Dependent personality disorder (3) Orthostatic hypotension: Status: Acute Code(s): I95.1 - Orthostatic hypotension (4) Generalized anxiety disorder with panic attacks: Status: Acute Code(s): F41.1 - Generalized anxiety disorder; F41.0 - Panic disorder [episodic paroxysmal anxiety] Plan Mr. Smith is a 74 year-old trans female to male who self presented to [facility] reporting increased depression, suicidal ideation with plan to drown self in bathtub. He reports feelings of abandonment, helplessness, hopelessness, needing care from other. He reports this is in setting of his psychotherapist retiring in April. Unclear if this is the case. He also reports he was at [facility] for last 3 months. Will obtain records from [facility]. Pt signed NADYA. We discussed risks, benefits and alternative treatment options. continue current medications. PLAN 11/04 continue to present with ortho HOTN, SBP dropping when standing by 20 points, this despite lowering olanzapine from 5mg po TID to 2.5mg po TID and lowering anafranil to 50mg po qhs. Pt has been drinking more fluids. May need IV fluids, although pt hesitant to receive fluids. 11/05 continue tx. 11/06 continue tx. 11/07 d/c anafranil. increase sertraline to 100mg po daily, continue olanzapine 2.5mg po TID. 11/08 continue tx. continue to monitor BP, ortho VS. may need to adjust midodrine of BP improves with discontinuation of anafranil and decreased dose of olanzapine. Reason for continued inpatient stay Substantial Risk for: inability to function Time Spent With Patient Time: Total time managing care of this patient today ____ minutes.
[2024-11-08 09:27] VITALS: BP 97/53
[2024-11-08 11:53] LABS: Chlamydia pneumoniae PCR Not Detected (Not Detect.); Coronavirus 229E PCR Not Detected (Not Detect.); Coronavirus HKU1 PCR Not Detected (Not Detect.); Coronavirus NL63 PCR Not Detected (Not Detect.); Coronavirus OC43 PCR Not Detected (Not Detect.); RSV PCR Not Detected (Not Detect.); Rhino/Enterovirus PCR Not Detected (Not Detect.)
[2024-11-08 11:57] LABS: Influenza A H1 PCR Not Detected (Not Detect.); Influenza A H1-2009 PCR Not Detected (Not Detect.); Influenza A H3 PCR Not Detected (Not Detect.); SARS-CoV-2 PCR Not Detected (Not Detect.)
[2024-11-08 16:00] VITALS: BP 125/73; PULSE 84
[2024-11-08 20:00] VITALS: BP 115/65; PULSE 64; RESP 18; TEMP 36.8; O2SAT 96
[2024-11-09] VITALS (9 sets, daily range): BP systolic 91–136; BP diastolic 56–67; PULSE 63–99; RESP 18–20; TEMP 36.7–36.8; O2SAT 93–95
[2024-11-10] VITALS (9 sets, daily range): BP systolic 110–139; BP diastolic 55–75; PULSE 73–117; RESP 16–18; TEMP 36.3–36.7; O2SAT 94–95
--- NOTE | 2024-11-10 05:24 | P.PNPSI_ITS ---
Subjective Subjective Date of Service: 11/09/24 Reason For Visit: si Interim History: Met with pt, reviewed with his team. He reports anxiety/depressive sx which are helped with medications. Rates sx 8/10 for anxiety, 5/10 for depression. Discussed recent DC of Anafranil and Midodrine use for orthostasis along with monitoring. Discussed current concern that he was informed that the utilities in his home were shut off due to nonpayment. Discussed concerns with finances. Reports using prayer a great deal to help with sx and to help with coping of social stressors Medication Compliance: Yes Side effects from medications: No Attending Groups: Yes Review of Systems Review of Systems monitoring orthostasis Mental Status Exam Mental Status Exam Patient Appearance: Appropriate Patient Orientation: Person, Place and Situation Level of Consciousness: Alert Patient Behavior: Talkative and Good Eye Contact Mood Description: Depressed and Anxious Affect Description: Flat Patient Cognition Impaired: No Ability to Follow Directions: Good Speech Pattern: Spontaneous Speech Memory Description: Episodic Impaired Hallucinations: None Delusions: Not Present Thought Process: Rumination Thought Content: positive for Circumstantial and positive for Perseveration Depressive Symptoms: Increased Anxiety, Diff. Making Decisions and Thoughts of /Suicide (denies) Judgement: Fair Diagnostics Vital Signs (24Hr): Vital Signs - 24 hr 11/09/24 08:00 11/09/24 08:00 11/09/24 08:05 Temperature 98.1 F Pulse Rate 73 73 79 Respiratory Rate 20 Blood Pressure 132/60 132/60 121/60 Pulse Oximetry 93 Oxygen Delivery Method Room Air 11/09/24 08:10 11/09/24 09:31 11/09/24 15:22 Temperature Pulse Rate 81 Respiratory Rate Blood Pressure 119/65 119/65 97/56 L Pulse Oximetry Oxygen Delivery Method 11/09/24 18:41 11/09/24 21:14 11/09/24 21:20 Temperature 98.2 F Pulse Rate 63 99 Respiratory Rate 18 Blood Pressure 118/61 136/62 91/67 Pulse Oximetry 95 Oxygen Delivery Method Room Air 11/09/24 21:35 Temperature Pulse Rate 68 Respiratory Rate Blood Pressure 120/56 L Pulse Oximetry Oxygen Delivery Method BMI result Body Mass Index 28.0 Labs 11/05/24 07:31 11/05/24 07:31 Labs: Laboratory Results - last 48 hr 11/08/24 10:20 Respiratory Panel Zapien See Note Adenovirus (Rapid PCR) Not Detected B.pert (TEM-PCR) Not Detected B.parapertussis DNA PCR Not Detected C. pneumoniae DNA (PCR) Not Detected Coronavirus OC43 (PCR) Not Detected Coronavirus HKU1 (PCR) Not Detected Coronavirus 229E (PCR) Not Detected Coronavirus NL63 (PCR) Not Detected Human Metapneumovir PCR Not Detected Influenza A (RT-PCR) Not Detected Influenza A (H1) PCR Not Detected Influ A (H1/09) PCR Not Detected Influenza A (H3) PCR Not Detected Influenza B (RT-PCR) Not Detected M. pneumoniae (PCR) Not Detected Parainfluenza 1 (PCR) Not Detected Parainfluenza 2 (PCR) Not Detected Parainfluenza 3 (PCR) Not Detected Parainfluenza 4 (PCR) Not Detected RSV (PCR) Not Detected Entero/Rhino (PCR) Not Detected SARS-CoV-2 RNA (RT-PCR) Not Detected Medications Medications Current Medications Acetaminophen (Acetaminophen 325 Mg Tablet) 650 mg PO Q6H PRN PRN Reason: Headache/Pain, Scale 1-10 Al Hydroxide/Mg Hydroxide (Magnesium Hydrox/Alum Hydrox 30 Ml Oral.Susp) 30 ml PO Q6H PRN PRN Reason: Heartburn/Nausea Diazepam (Diazepam 2 Mg Tablet) 1 mg PO TID [facility] Last Admin: 11/09/24 20:33 Dose: 1 mg Famotidine (Famotidine 20 Mg Tablet) 20 mg PO DAILY [facility] Last Admin: 11/09/24 09:25 Dose: 20 mg Magnesium Hydroxide (Milk Of Magnesia 30 Ml Oral.Susp) 30 ml PO DAILY PRN PRN Reason: Constipation Midodrine (Midodrine Hcl 5 Mg Tablet) 5 mg PO TID@0900,1500,1800 [facility] Last Admin: 11/09/24 18:41 Dose: 5 mg Olanzapine (Olanzapine 2.5 Mg Tablet) 2.5 mg PO TID [facility] Last Admin: 11/09/24 20:33 Dose: 2.5 mg Omeprazole (Omeprazole 20 Mg Capsule.Dr) 20 mg PO DAILY@0630 [facility] Last Admin: 11/09/24 06:07 Dose: 20 mg Sertraline HCl (Sertraline Hcl 100 Mg Tablet) 100 mg PO DAILY [facility] Last Admin: 11/09/24 09:25 Dose: 100 mg Zolpidem Tartrate (Zolpidem Tartrate 5 Mg Tablet) 5 mg PO BEDTIME [facility] Last Admin: 11/09/24 20:33 Dose: 5 mg Allergies Allergies Allergy/AdvReac Type Severity Reaction Status Date / Time ciprofloxacin (From CIPRO) Allergy Unknown DIARRHEA Verified 09/30/24 10:57 Morpholine Analogues Allergy Unknown Unknown Verified 09/30/24 10:57 amoxicillin Allergy Nausea Verified 09/30/24 10:57 meperidine Allergy Unknown Verified 09/30/24 10:57 pollen extracts Allergy Unknown Verified 09/30/24 10:57 Assessment & Plan Assessment & Plan (1) MDD (major depressive disorder), recurrent episode, moderate: Status: Acute Code(s): F33.1 - Major depressive disorder, recurrent, moderate (2) Dependent personality disorder: Status: Acute Code(s): F60.7 - Dependent personality disorder (3) Orthostatic hypotension: Status: Acute Code(s): I95.1 - Orthostatic hypotension (4) Generalized anxiety disorder with panic attacks: Status: Acute Code(s): F41.1 - Generalized anxiety disorder; F41.0 - Panic disorder [episodic paroxysmal anxiety] Plan Mr. Smith is a 74 year-old trans female to male who self presented to [facility] reporting increased depression, suicidal ideation with plan to drown self in bathtub. He reports feelings of abandonment, helplessness, hopelessness, needing care from other. He reports this is in setting of his psychotherapist retiring in April. Unclear if this is the case. He also reports he was at [facility] for last 3 months. Will obtain records from [facility]. Pt signed NADYA. We discussed risks, benefits and alternative treatment options. continue current medications. PLAN 11/04 continue to present with ortho HOTN, SBP dropping when standing by 20 points, this despite lowering olanzapine from 5mg po TID to 2.5mg po TID and lowering anafranil to 50mg po qhs. Pt has been drinking more fluids. May need IV fluids, although pt hesitant to receive fluids. 11/05 continue tx. 11/06 continue tx. 11/07 d/c anafranil. increase sertraline to 100mg po daily, continue olanzapine 2.5mg po TID. 11/08 continue tx. continue to monitor BP, ortho VS. may need to adjust midodrine of BP improves with discontinuation of anafranil and decreased dose of olanzapine. 11/09: Continue tx Reason for continued inpatient stay Substantial Risk for: rapid decompensation Time Spent With Patient Time: Total time managing care of this patient today ____ minutes.
--- NOTE | 2024-11-10 05:28 | HO.PSYCHPN ---
Subjective Subjective Date of Service: 11/10/24 Reason For Visit: si Interim History: Met with pt, reviewed with his team. Discussed blood pressure improvement and trial of decreasing midodrine to bid. Reports anxiety persists, this a.m. a bit higher as he has just had his medicine and needs some time to allow it to take effect. Medication Compliance: Yes Side effects from medications: No Attending Groups: Yes Review of Systems Acute medical concerns: No Review of Systems Review of Systems Orthostasis Mental Status Exam Mental Status Exam Patient Appearance: Appropriate Patient Orientation: Person, Place and Situation Level of Consciousness: Alert Patient Behavior: Talkative and Good Eye Contact Mood Description: Depressed and Anxious Affect Description: Flat Patient Cognition Impaired: No Ability to Follow Directions: Good Speech Pattern: Spontaneous Speech Memory Description: Episodic Impaired Hallucinations: None Delusions: Not Present Thought Process: Rumination Thought Content: positive for Circumstantial and positive for Perseveration Depressive Symptoms: Increased Anxiety, Diff. Making Decisions and Thoughts of /Suicide (denies) Judgement: Fair Diagnostics Vital Signs (24Hr): Vital Signs - 24 hr 11/09/24 08:00 11/09/24 08:00 11/09/24 08:05 Temperature 98.1 F Pulse Rate 73 73 79 Respiratory Rate 20 Blood Pressure 132/60 132/60 121/60 Pulse Oximetry 93 Oxygen Delivery Method Room Air 11/09/24 08:10 11/09/24 09:31 11/09/24 15:22 Temperature Pulse Rate 81 Respiratory Rate Blood Pressure 119/65 119/65 97/56 L Pulse Oximetry Oxygen Delivery Method 11/09/24 18:41 11/09/24 21:14 11/09/24 21:20 Temperature 98.2 F Pulse Rate 63 99 Respiratory Rate 18 Blood Pressure 118/61 136/62 91/67 Pulse Oximetry 95 Oxygen Delivery Method Room Air 11/09/24 21:35 Temperature Pulse Rate 68 Respiratory Rate Blood Pressure 120/56 L Pulse Oximetry Oxygen Delivery Method BMI result Body Mass Index 28.0 Labs 11/05/24 07:31 11/05/24 07:31 Labs: Laboratory Results - last 48 hr 11/08/24 10:20 Respiratory Panel Zapien See Note Adenovirus (Rapid PCR) Not Detected B.pert (TEM-PCR) Not Detected B.parapertussis DNA PCR Not Detected C. pneumoniae DNA (PCR) Not Detected Coronavirus OC43 (PCR) Not Detected Coronavirus HKU1 (PCR) Not Detected Coronavirus 229E (PCR) Not Detected Coronavirus NL63 (PCR) Not Detected Human Metapneumovir PCR Not Detected Influenza A (RT-PCR) Not Detected Influenza A (H1) PCR Not Detected Influ A (H1/) PCR Not Detected Influenza A (H3) PCR Not Detected Influenza B (RT-PCR) Not Detected M. pneumoniae (PCR) Not Detected Parainfluenza 1 (PCR) Not Detected Parainfluenza 2 (PCR) Not Detected Parainfluenza 3 (PCR) Not Detected Parainfluenza 4 (PCR) Not Detected RSV (PCR) Not Detected Entero/Rhino (PCR) Not Detected SARS-CoV-2 RNA (RT-PCR) Not Detected Medications Medications Current Medications Acetaminophen (Acetaminophen 325 Mg Tablet) 650 mg PO Q6H PRN PRN Reason: Headache/Pain, Scale 1-10 Al Hydroxide/Mg Hydroxide (Magnesium Hydrox/Alum Hydrox 30 Ml Oral.Susp) 30 ml PO Q6H PRN PRN Reason: Heartburn/Nausea Diazepam (Diazepam 2 Mg Tablet) 1 mg PO TID [facility] Last Admin: 11/09/24 20:33 Dose: 1 mg Famotidine (Famotidine 20 Mg Tablet) 20 mg PO DAILY [facility] Last Admin: 11/09/24 09:25 Dose: 20 mg Magnesium Hydroxide (Milk Of Magnesia 30 Ml Oral.Susp) 30 ml PO DAILY PRN PRN Reason: Constipation Midodrine (Midodrine Hcl 5 Mg Tablet) 5 mg PO TID@0900,1500,1800 [facility] Last Admin: 11/09/24 18:41 Dose: 5 mg Olanzapine (Olanzapine 2.5 Mg Tablet) 2.5 mg PO TID [facility] Last Admin: 11/09/24 20:33 Dose: 2.5 mg Omeprazole (Omeprazole 20 Mg Capsule.Dr) 20 mg PO DAILY@0630 [facility] Last Admin: 11/09/24 06:07 Dose: 20 mg Sertraline HCl (Sertraline Hcl 100 Mg Tablet) 100 mg PO DAILY [facility] Last Admin: 11/09/24 09:25 Dose: 100 mg Zolpidem Tartrate (Zolpidem Tartrate 5 Mg Tablet) 5 mg PO BEDTIME [facility] Last Admin: 11/09/24 20:33 Dose: 5 mg Allergies Allergies Allergy/AdvReac Type Severity Reaction Status Date / Time ciprofloxacin (From CIPRO) Allergy Unknown DIARRHEA Verified 09/30/24 10:57 Morpholine Analogues Allergy Unknown Unknown Verified 09/30/24 10:57 amoxicillin Allergy Nausea Verified 09/30/24 10:57 meperidine Allergy Unknown Verified 09/30/24 10:57 pollen extracts Allergy Unknown Verified 09/30/24 10:57 Assessment & Plan Assessment & Plan (1) MDD (major depressive disorder), recurrent episode, moderate: Status: Acute Code(s): F33.1 - Major depressive disorder, recurrent, moderate (2) Dependent personality disorder: Status: Acute Code(s): F60.7 - Dependent personality disorder (3) Orthostatic hypotension: Status: Acute Code(s): I95.1 - Orthostatic hypotension (4) Generalized anxiety disorder with panic attacks: Status: Acute Code(s): F41.1 - Generalized anxiety disorder; F41.0 - Panic disorder [episodic paroxysmal anxiety] Plan Mr. Smith is a 74 year-old trans female to male who self presented to [facility] reporting increased depression, suicidal ideation with plan to drown self in bathtub. He reports feelings of abandonment, helplessness, hopelessness, needing care from other. He reports this is in setting of his psychotherapist retiring in April. Unclear if this is the case. He also reports he was at [facility] for last 3 months. Will obtain records from [facility]. Pt signed NADYA. We discussed risks, benefits and alternative treatment options. continue current medications. PLAN 11/04 continue to present with ortho HOTN, SBP dropping when standing by 20 points, this despite lowering olanzapine from 5mg po TID to 2.5mg po TID and lowering anafranil to 50mg po qhs. Pt has been drinking more fluids. May need IV fluids, although pt hesitant to receive fluids. 11/05 continue tx. 11/06 continue tx. 11/07 d/c anafranil. increase sertraline to 100mg po daily, continue olanzapine 2.5mg po TID. 11/08 continue tx. continue to monitor BP, ortho VS. may need to adjust midodrine of BP improves with discontinuation of anafranil and decreased dose of olanzapine. 11/10: Decrease midodrine dosing to 5 mg bid 0900, 1800 Reason for continued inpatient stay Substantial Risk for: rapid decompensation Time Spent With Patient Time: Total time managing care of this patient today ____ minutes.
[2024-11-11] VITALS (7 sets, daily range): BP systolic 93–128; BP diastolic 52–74; PULSE 62–90; RESP 16–18; TEMP 36.3–36.8; O2SAT 94–96
--- NOTE | 2024-11-11 11:03 | P.PNPSI_ITS ---
Subjective Subjective Date of Service: 11/11/24 Reason For Visit: si Subjective Notes: Conditional Voluntary Interim History: Pt reports feeling somewhat anxious. He denies SI/HI. He reports he has not showered, I can't do it but when asking to elaborate, pt states, just can't do it. No psychosis. BP better but continues to have episodes of dizziness. No aggression. No indication that he is able to complete tasks to care for himself. Medication Compliance: Yes Review of Systems Review of Systems Orthostasis Mental Status Exam Mental Status Exam Narrative: Appearance: marginal hygiene, appears anxious Behavior:cooperative. psychomotor:no agitation or retardation noted Speech:clear, normal rate/rhythm/volume, spontaneous Thought process:linear Thought content:no signs of psychosis, anxious Mood: I feel anxious today Affect: constricted, hyper-intense, non-labile SI: none expressed HI: none expressed VH/AH: none expressed Delusions: none expressed Insight/judgment:fair x 2. Memory/cog: alert, oriented x3. Diagnostics Vital Signs (24Hr): Vital Signs - 24 hr 11/10/24 15:56 11/10/24 15:58 11/10/24 16:00 Temperature Pulse Rate 73 117 H 98 Respiratory Rate Blood Pressure 125/60 139/62 113/75 Pulse Oximetry Oxygen Delivery Method 11/10/24 17:17 11/10/24 20:03 Temperature 97.3 F Pulse Rate 94 76 Respiratory Rate 16 Blood Pressure 110/63 114/55 L Pulse Oximetry 94 Oxygen Delivery Method Room Air BMI result Body Mass Index 28.0 Labs 11/05/24 07:31 11/05/24 07:31 Medications Medications Current Medications Acetaminophen (Acetaminophen 325 Mg Tablet) 650 mg PO Q6H PRN PRN Reason: Headache/Pain, Scale 1-10 Al Hydroxide/Mg Hydroxide (Magnesium Hydrox/Alum Hydrox 30 Ml Oral.Susp) 30 ml PO Q6H PRN PRN Reason: Heartburn/Nausea Diazepam (Diazepam 2 Mg Tablet) 1 mg PO TID [facility] Last Admin: 11/11/24 10:43 Dose: 1 mg Famotidine (Famotidine 20 Mg Tablet) 20 mg PO DAILY [facility] Last Admin: 11/11/24 10:43 Dose: 20 mg Magnesium Hydroxide (Milk Of Magnesia 30 Ml Oral.Susp) 30 ml PO DAILY PRN PRN Reason: Constipation Midodrine (Midodrine Hcl 5 Mg Tablet) 5 mg PO TID@0900,1500,1800 [facility] Last Admin: 11/11/24 10:50 Dose: Not Given Olanzapine (Olanzapine 2.5 Mg Tablet) 2.5 mg PO TID [facility] Last Admin: 11/11/24 10:43 Dose: 2.5 mg Omeprazole (Omeprazole 20 Mg Capsule.Dr) 20 mg PO DAILY@0630 [facility] Last Admin: 11/11/24 05:31 Dose: 20 mg Sertraline HCl (Sertraline Hcl 100 Mg Tablet) 100 mg PO DAILY [facility] Last Admin: 11/11/24 10:43 Dose: 100 mg Zolpidem Tartrate (Zolpidem Tartrate 5 Mg Tablet) 5 mg PO BEDTIME [facility] Last Admin: 11/10/24 20:06 Dose: 5 mg Allergies Allergies Allergy/AdvReac Type Severity Reaction Status Date / Time ciprofloxacin (From CIPRO) Allergy Unknown DIARRHEA Verified 09/30/24 10:57 Morpholine Analogues Allergy Unknown Unknown Verified 09/30/24 10:57 amoxicillin Allergy Nausea Verified 09/30/24 10:57 meperidine Allergy Unknown Verified 09/30/24 10:57 pollen extracts Allergy Unknown Verified 09/30/24 10:57 Assessment & Plan Assessment & Plan (1) MDD (major depressive disorder), recurrent episode, moderate: Status: Acute Code(s): F33.1 - Major depressive disorder, recurrent, moderate (2) Dependent personality disorder: Status: Acute Code(s): F60.7 - Dependent personality disorder (3) Orthostatic hypotension: Status: Acute Code(s): I95.1 - Orthostatic hypotension (4) Generalized anxiety disorder with panic attacks: Status: Acute Code(s): F41.1 - Generalized anxiety disorder; F41.0 - Panic disorder [episodic paroxysmal anxiety] Plan Mr. Smith is a 74 year-old trans female to male who self presented to [facility] reporting increased depression, suicidal ideation with plan to drown self in bathtub. He reports feelings of abandonment, helplessness, hopelessness, needing care from other. He reports this is in setting of his psychotherapist retiring in April. Unclear if this is the case. He also reports he was at [facility] for last 3 months. Will obtain records from [facility]. Pt signed NADYA. We discussed risks, benefits and alternative treatment options. continue current medications. PLAN 11/04 continue to present with ortho HOTN, SBP dropping when standing by 20 points, this despite lowering olanzapine from 5mg po TID to 2.5mg po TID and lowering anafranil to 50mg po qhs. Pt has been drinking more fluids. May need IV fluids, although pt hesitant to receive fluids. 11/05 continue tx. 11/06 continue tx. 11/07 d/c anafranil. increase sertraline to 100mg po daily, continue olanzapine 2.5mg po TID. 11/08 continue tx. continue to monitor BP, ortho VS. may need to adjust midodrine of BP improves with discontinuation of anafranil and decreased dose of olanzapine. 11/10: Decrease midodrine dosing to 5 mg bid 0900, 1800 11/11 continue current medications. Reason for continued inpatient stay Substantial Risk for: inability to function Time Spent With Patient Time: Total time managing care of this patient today ____ minutes.
[2024-11-12] VITALS (9 sets, daily range): BP systolic 94–137; BP diastolic 54–97; PULSE 63–110; RESP 18; TEMP 36.6–36.8; O2SAT 92–96
[2024-11-13] VITALS (7 sets, daily range): BP systolic 107–128; BP diastolic 52–63; PULSE 67–97; RESP 17–18; TEMP 2.3–36.4; O2SAT 95
--- NOTE | 2024-11-13 09:57 | P.PNPSI_ITS ---
Subjective Subjective Date of Service: 11/12/24 Reason For Visit: si Subjective Notes: Conditional Voluntary Interim History: Pt reports feeling less depressed and less anxious. He has not taken a shower and has not made appropriate steps to get utilities reinstated. No SI/HI. No overt psychosis. We discussed his ability to care for himself even when mood has improved. He did make effort to call friend and work with SW to talk with his friends. Medication Compliance: Yes Review of Systems Review of Systems Orthostasis Mental Status Exam Mental Status Exam Narrative: Appearance: marginal hygiene, appears anxious Behavior:cooperative. psychomotor:no agitation or retardation noted Speech:clear, normal rate/rhythm/volume, spontaneous Thought process:linear Thought content:no signs of psychosis, anxious Mood: I feel anxious today Affect: constricted, hyper-intense, non-labile SI: none expressed HI: none expressed VH/AH: none expressed Delusions: none expressed Insight/judgment:fair x 2. Memory/cog: alert, oriented x3. Diagnostics Vital Signs (24Hr): Vital Signs - 24 hr 11/12/24 17:44 11/12/24 17:46 11/12/24 17:47 Temperature Pulse Rate 74 82 92 Respiratory Rate Blood Pressure 114/56 L 114/56 L 94/63 Pulse Oximetry Oxygen Delivery Method 11/12/24 20:00 11/13/24 07:58 11/13/24 08:00 Temperature 98.2 F 36.2 F L Pulse Rate 98 80 80 Respiratory Rate 18 17 Blood Pressure 103/71 107/52 L 107/52 L Pulse Oximetry 92 95 Oxygen Delivery Method Room Air Room Air 11/13/24 08:26 Temperature Pulse Rate Respiratory Rate Blood Pressure 107/52 L Pulse Oximetry Oxygen Delivery Method BMI result Body Mass Index 28.0 Labs 11/05/24 07:31 11/05/24 07:31 Medications Medications Current Medications Acetaminophen (Acetaminophen 325 Mg Tablet) 650 mg PO Q6H PRN PRN Reason: Headache/Pain, Scale 1-10 Al Hydroxide/Mg Hydroxide (Magnesium Hydrox/Alum Hydrox 30 Ml Oral.Susp) 30 ml PO Q6H PRN PRN Reason: Heartburn/Nausea Diazepam (Diazepam 2 Mg Tablet) 1 mg PO TID [facility] Last Admin: 11/13/24 08:25 Dose: 1 mg Famotidine (Famotidine 20 Mg Tablet) 20 mg PO DAILY [facility] Last Admin: 11/13/24 08:26 Dose: 20 mg Magnesium Hydroxide (Milk Of Magnesia 30 Ml Oral.Susp) 30 ml PO DAILY PRN PRN Reason: Constipation Midodrine (Midodrine Hcl 5 Mg Tablet) 5 mg PO TID@0900,1500,1800 [facility] Last Admin: 11/13/24 08:26 Dose: 5 mg Olanzapine (Olanzapine 2.5 Mg Tablet) 2.5 mg PO TID [facility] Last Admin: 11/13/24 08:27 Dose: 2.5 mg Omeprazole (Omeprazole 20 Mg Capsule.Dr) 20 mg PO DAILY@0630 [facility] Last Admin: 11/13/24 06:04 Dose: 20 mg Sertraline HCl (Sertraline Hcl 100 Mg Tablet) 100 mg PO DAILY [facility] Last Admin: 11/13/24 08:26 Dose: 100 mg Allergies Allergies Allergy/AdvReac Type Severity Reaction Status Date / Time ciprofloxacin (From CIPRO) Allergy Unknown DIARRHEA Verified 09/30/24 10:57 Morpholine Analogues Allergy Unknown Unknown Verified 09/30/24 10:57 amoxicillin Allergy Nausea Verified 09/30/24 10:57 meperidine Allergy Unknown Verified 09/30/24 10:57 pollen extracts Allergy Unknown Verified 09/30/24 10:57 Assessment & Plan Assessment & Plan (1) MDD (major depressive disorder), recurrent episode, moderate: Status: Acute Code(s): F33.1 - Major depressive disorder, recurrent, moderate (2) Dependent personality disorder: Status: Acute Code(s): F60.7 - Dependent personality disorder (3) Orthostatic hypotension: Status: Acute Code(s): I95.1 - Orthostatic hypotension (4) Generalized anxiety disorder with panic attacks: Status: Acute Code(s): F41.1 - Generalized anxiety disorder; F41.0 - Panic disorder [episodic paroxysmal anxiety] Plan Mr. Smith is a 74 year-old trans female to male who self presented to [facility] [place] [facility] reporting increased depression, suicidal ideation with plan to drown self in bathtub. He reports feelings of abandonment, helplessness, hopelessness, needing care from other. He reports this is in setting of his psychotherapist retiring in April. Unclear if this is the case. He also reports he was at [facility] for last 3 months. Will obtain records from [facility]. Pt signed NADYA. We discussed risks, benefits and alternative treatment options. continue current medications. PLAN 11/04 continue to present with ortho HOTN, SBP dropping when standing by 20 points, this despite lowering olanzapine from 5mg po TID to 2.5mg po TID and lowering anafranil to 50mg po qhs. Pt has been drinking more fluids. May need IV fluids, although pt hesitant to receive fluids. 11/05 continue tx. 11/06 continue tx. 11/07 d/c anafranil. increase sertraline to 100mg po daily, continue olanzapine 2.5mg po TID. 11/08 continue tx. continue to monitor BP, ortho VS. may need to adjust midodrine of BP improves with discontinuation of anafranil and decreased dose of olanzapine. 11/10: Decrease midodrine dosing to 5 mg bid 0900, 1800 11/11 continue current medications. 11/12 continue tx. Reason for continued inpatient stay Substantial Risk for: inability to function Time Spent With Patient Time: Total time managing care of this patient today ____ minutes.
--- NOTE | 2024-11-13 10:00 | HO.PSYCHPN ---
Subjective Subjective Date of Service: 11/13/24 Reason For Visit: si Subjective Notes: Conditional Voluntary Interim History: Pt slept through the night. he reports feeling better, less anxious, no suicidal thoughts. however, his ability to care for himself is concerning. He continues to decline going to [facility]. He did call friends and was able to get help to pay utilities. Less dizziness. Review of Systems Review of Systems Orthostasis Mental Status Exam Mental Status Exam Narrative: Appearance: marginal hygiene, appears anxious Behavior:cooperative. psychomotor:no agitation or retardation noted Speech:clear, normal rate/rhythm/volume, spontaneous Thought process:linear Thought content:no signs of psychosis, anxious Mood: I feel anxious today Affect: constricted, hyper-intense, non-labile SI: none expressed HI: none expressed VH/AH: none expressed Delusions: none expressed Insight/judgment:fair x 2. Memory/cog: alert, oriented x3. Diagnostics Vital Signs (24Hr): Vital Signs - 24 hr 11/12/24 17:44 11/12/24 17:46 11/12/24 17:47 Temperature Pulse Rate 74 82 92 Respiratory Rate Blood Pressure 114/56 L 114/56 L 94/63 Pulse Oximetry Oxygen Delivery Method 11/12/24 20:00 11/13/24 07:58 11/13/24 08:00 Temperature 98.2 F 36.2 F L Pulse Rate 98 80 80 Respiratory Rate 18 17 Blood Pressure 103/71 107/52 L 107/52 L Pulse Oximetry 92 95 Oxygen Delivery Method Room Air Room Air 11/13/24 08:26 Temperature Pulse Rate Respiratory Rate Blood Pressure 107/52 L Pulse Oximetry Oxygen Delivery Method BMI result Body Mass Index 28.0 Labs 11/05/24 07:31 11/05/24 07:31 Medications Medications Current Medications Acetaminophen (Acetaminophen 325 Mg Tablet) 650 mg PO Q6H PRN PRN Reason: Headache/Pain, Scale 1-10 Al Hydroxide/Mg Hydroxide (Magnesium Hydrox/Alum Hydrox 30 Ml Oral.Susp) 30 ml PO Q6H PRN PRN Reason: Heartburn/Nausea Diazepam (Diazepam 2 Mg Tablet) 1 mg PO TID [facility] Last Admin: 11/13/24 08:25 Dose: 1 mg Famotidine (Famotidine 20 Mg Tablet) 20 mg PO DAILY [facility] Last Admin: 11/13/24 08:26 Dose: 20 mg Magnesium Hydroxide (Milk Of Magnesia 30 Ml Oral.Susp) 30 ml PO DAILY PRN PRN Reason: Constipation Midodrine (Midodrine Hcl 5 Mg Tablet) 5 mg PO TID@0900,1500,1800 [facility] Last Admin: 11/13/24 08:26 Dose: 5 mg Olanzapine (Olanzapine 2.5 Mg Tablet) 2.5 mg PO TID [facility] Last Admin: 11/13/24 08:27 Dose: 2.5 mg Omeprazole (Omeprazole 20 Mg Capsule.Dr) 20 mg PO DAILY@0630 [facility] Last Admin: 11/13/24 06:04 Dose: 20 mg Sertraline HCl (Sertraline Hcl 100 Mg Tablet) 100 mg PO DAILY [facility] Last Admin: 11/13/24 08:26 Dose: 100 mg Allergies Allergies Allergy/AdvReac Type Severity Reaction Status Date / Time ciprofloxacin (From CIPRO) Allergy Unknown DIARRHEA Verified 09/30/24 10:57 Morpholine Analogues Allergy Unknown Unknown Verified 09/30/24 10:57 amoxicillin Allergy Nausea Verified 09/30/24 10:57 meperidine Allergy Unknown Verified 09/30/24 10:57 pollen extracts Allergy Unknown Verified 09/30/24 10:57 Assessment & Plan Assessment & Plan (1) MDD (major depressive disorder), recurrent episode, moderate: Status: Acute Code(s): F33.1 - Major depressive disorder, recurrent, moderate (2) Dependent personality disorder: Status: Acute Code(s): F60.7 - Dependent personality disorder (3) Orthostatic hypotension: Status: Acute Code(s): I95.1 - Orthostatic hypotension (4) Generalized anxiety disorder with panic attacks: Status: Acute Code(s): F41.1 - Generalized anxiety disorder; F41.0 - Panic disorder [episodic paroxysmal anxiety] Plan Mr. Smith is a 74 year-old trans female to male who self presented to [facility] reporting increased depression, suicidal ideation with plan to drown self in bathtub. He reports feelings of abandonment, helplessness, hopelessness, needing care from other. He reports this is in setting of his psychotherapist retiring in April. Unclear if this is the case. He also reports he was at [facility] for last 3 months. Will obtain records from [facility]. Pt signed NADYA. We discussed risks, benefits and alternative treatment options. continue current medications. PLAN 11/04 continue to present with ortho HOTN, SBP dropping when standing by 20 points, this despite lowering olanzapine from 5mg po TID to 2.5mg po TID and lowering anafranil to 50mg po qhs. Pt has been drinking more fluids. May need IV fluids, although pt hesitant to receive fluids. 11/05 continue tx. 11/06 continue tx. 11/07 d/c anafranil. increase sertraline to 100mg po daily, continue olanzapine 2.5mg po TID. 11/08 continue tx. continue to monitor BP, ortho VS. may need to adjust midodrine of BP improves with discontinuation of anafranil and decreased dose of olanzapine. 11/10: Decrease midodrine dosing to 5 mg bid 0900, 1800 11/11 continue current medications. 11/12 continue tx. 11/13 continue tx. Reason for continued inpatient stay Substantial Risk for: inability to function Time Spent With Patient Time: Total time managing care of this patient today ____ minutes.
[2024-11-14] VITALS (9 sets, daily range): BP systolic 96–119; BP diastolic 52–76; PULSE 66–109; RESP 16–18; TEMP 36.2–36.6; O2SAT 95; BMI 27.5
--- NOTE | 2024-11-14 17:16 | P.PNPSI_ITS ---
Subjective Subjective Date of Service: 11/14/24 Reason For Visit: si Interim History: Pt slept through the night. he reports feeling better, less anxious, no suicidal thoughts. however, his ability to care for himself is concerning. He continues to decline going to [facility]. He did call friends and was able to get help to pay utilities. Less dizziness. Review of Systems Review of Systems Orthostasis Mental Status Exam Mental Status Exam Narrative: Appearance: marginal hygiene, appears anxious Behavior:cooperative. psychomotor:no agitation or retardation noted Speech:clear, normal rate/rhythm/volume, spontaneous Thought process:linear Thought content:no signs of psychosis, anxious Mood: I feel anxious today Affect: constricted, hyper-intense, non-labile SI: none expressed HI: none expressed VH/AH: none expressed Delusions: none expressed Insight/judgment:fair x 2. Memory/cog: alert, oriented x3. Diagnostics Vital Signs (24Hr): Vital Signs - 24 hr 11/13/24 18:14 11/13/24 20:00 11/14/24 08:43 Temperature 97.6 F 97.9 F Pulse Rate 97 82 Respiratory Rate 18 18 Blood Pressure 115/62 116/55 L 96/76 Pulse Oximetry 95 95 Oxygen Delivery Method Room Air Room Air 11/14/24 08:56 11/14/24 09:00 11/14/24 09:03 Temperature Pulse Rate 91 95 109 H Respiratory Rate Blood Pressure 118/58 L 119/57 L 107/56 L Pulse Oximetry Oxygen Delivery Method 11/14/24 14:18 11/14/24 14:21 11/14/24 14:23 Temperature Pulse Rate 66 76 101 H Respiratory Rate Blood Pressure 108/53 L 110/64 108/66 Pulse Oximetry Oxygen Delivery Method BMI result Body Mass Index 27.5 Labs 11/05/24 07:31 11/05/24 07:31 Medications Medications Current Medications Acetaminophen (Acetaminophen 325 Mg Tablet) 650 mg PO Q6H PRN PRN Reason: Headache/Pain, Scale 1-10 Al Hydroxide/Mg Hydroxide (Magnesium Hydrox/Alum Hydrox 30 Ml Oral.Susp) 30 ml PO Q6H PRN PRN Reason: Heartburn/Nausea Diazepam (Diazepam 2 Mg Tablet) 1 mg PO BID [facility] Last Admin: 11/14/24 08:46 Dose: 1 mg Famotidine (Famotidine 20 Mg Tablet) 20 mg PO DAILY [facility] Last Admin: 11/14/24 08:46 Dose: 20 mg Magnesium Hydroxide (Milk Of Magnesia 30 Ml Oral.Susp) 30 ml PO DAILY PRN PRN Reason: Constipation Midodrine (Midodrine Hcl 5 Mg Tablet) 5 mg PO TID@0900,1500,1800 [facility] Last Admin: 11/14/24 14:36 Dose: 5 mg Olanzapine (Olanzapine 2.5 Mg Tablet) 2.5 mg PO TID [facility] Last Admin: 11/14/24 14:35 Dose: 2.5 mg Omeprazole (Omeprazole 20 Mg Capsule.Dr) 20 mg PO DAILY@0630 [facility] Last Admin: 11/14/24 05:53 Dose: 20 mg Sertraline HCl (Sertraline Hcl 50 Mg Tablet) 150 mg PO DAILY [facility] Last Admin: 11/14/24 08:45 Dose: 150 mg Zolpidem Tartrate (Zolpidem Tartrate 5 Mg Tablet) 5 mg PO BEDTIME PRN PRN Reason: Insomnia Last Admin: 11/13/24 20:33 Dose: 5 mg Allergies Allergies Allergy/AdvReac Type Severity Reaction Status Date / Time ciprofloxacin (From CIPRO) Allergy Unknown DIARRHEA Verified 09/30/24 10:57 Morpholine Analogues Allergy Unknown Unknown Verified 09/30/24 10:57 amoxicillin Allergy Nausea Verified 09/30/24 10:57 meperidine Allergy Unknown Verified 09/30/24 10:57 pollen extracts Allergy Unknown Verified 09/30/24 10:57 Assessment & Plan Assessment & Plan (1) MDD (major depressive disorder), recurrent episode, moderate: Status: Acute Code(s): F33.1 - Major depressive disorder, recurrent, moderate (2) Dependent personality disorder: Status: Acute Code(s): F60.7 - Dependent personality disorder (3) Orthostatic hypotension: Status: Acute Code(s): I95.1 - Orthostatic hypotension (4) Generalized anxiety disorder with panic attacks: Status: Acute Code(s): F41.1 - Generalized anxiety disorder; F41.0 - Panic disorder [episodic paroxysmal anxiety] Plan Mr. Smith is a 74 year-old trans female to male who self presented to [facility] ED reporting increased depression, suicidal ideation with plan to drown self in bathtub. He reports feelings of abandonment, helplessness, hopelessness, needing care from other. He reports this is in setting of his psychotherapist retiring in April. Unclear if this is the case. He also reports he was at [facility] for last 3 months. Will obtain records from [facility]. Pt signed NADYA. We discussed risks, benefits and alternative treatment options. continue current medications. PLAN 11/04 continue to present with ortho HOTN, SBP dropping when standing by 20 points, this despite lowering olanzapine from 5mg po TID to 2.5mg po TID and lowering anafranil to 50mg po qhs. Pt has been drinking more fluids. May need IV fluids, although pt hesitant to receive fluids. 11/05 continue tx. 11/06 continue tx. 11/07 d/c anafranil. increase sertraline to 100mg po daily, continue olanzapine 2.5mg po TID. 11/08 continue tx. continue to monitor BP, ortho VS. may need to adjust midodrine of BP improves with discontinuation of anafranil and decreased dose of olanzapine. 11/10: Decrease midodrine dosing to 5 mg bid 0900, 1800 11/11 continue current medications. 11/12 continue tx. 11/13 continue tx 11/14 continue tx Reason for continued inpatient stay Substantial Risk for: inability to function Time Spent With Patient Time: Total time managing care of this patient today ____ minutes.
[2024-11-15] VITALS (7 sets, daily range): BP systolic 110–135; BP diastolic 55–74; PULSE 66–80; RESP 16–18; TEMP 36.2–36.6; O2SAT 95–97
--- NOTE | 2024-11-15 11:59 | P.PNPSI_ITS ---
Subjective Subjective Date of Service: 11/15/24 Reason For Visit: si Subjective Notes: Conditional Voluntary Interim History: Pt slept through the night. he reports feeling more anxious today. he reports feeling very worried about returning home. no suicidal thoughts. however, his ability to care for himself is concerning. He continues to decline going to [facility]. He did call friends and was able to get help to pay utilities. Less dizziness. Review of Systems Review of Systems Orthostasis Mental Status Exam Mental Status Exam Narrative: Appearance: marginal hygiene, appears anxious Behavior:cooperative. psychomotor:no agitation or retardation noted Speech:clear, normal rate/rhythm/volume, spontaneous Thought process:linear Thought content:no signs of psychosis, anxious Mood: I feel anxious today Affect: constricted, hyper-intense, non-labile SI: none expressed HI: none expressed VH/AH: none expressed Delusions: none expressed Insight/judgment:fair x 2. Memory/cog: alert, oriented x3. Diagnostics Vital Signs (24Hr): Vital Signs - 24 hr 11/14/24 14:18 11/14/24 14:21 11/14/24 14:23 Temperature Pulse Rate 66 76 101 H Respiratory Rate Blood Pressure 108/53 L 110/64 108/66 Pulse Oximetry Oxygen Delivery Method 11/14/24 17:21 11/14/24 19:57 11/15/24 08:00 Temperature 97.1 F 97.1 F Pulse Rate 77 89 80 Respiratory Rate 16 18 Blood Pressure 116/60 110/52 L 134/56 L Pulse Oximetry 95 97 Oxygen Delivery Method Room Air Room Air 11/15/24 09:50 11/15/24 10:00 11/15/24 10:10 Temperature Pulse Rate 80 80 78 Respiratory Rate Blood Pressure 134/56 L 110/60 122/62 Pulse Oximetry Oxygen Delivery Method BMI result Body Mass Index 27.5 Labs 11/05/24 07:31 11/05/24 07:31 Medications Medications Current Medications Acetaminophen (Acetaminophen 325 Mg Tablet) 650 mg PO Q6H PRN PRN Reason: Headache/Pain, Scale 1-10 Al Hydroxide/Mg Hydroxide (Magnesium Hydrox/Alum Hydrox 30 Ml Oral.Susp) 30 ml PO Q6H PRN PRN Reason: Heartburn/Nausea Diazepam (Diazepam 2 Mg Tablet) 1 mg PO BID [facility] Last Admin: 11/15/24 09:10 Dose: 1 mg Famotidine (Famotidine 20 Mg Tablet) 20 mg PO DAILY [facility] Last Admin: 11/15/24 09:11 Dose: 20 mg Magnesium Hydroxide (Milk Of Magnesia 30 Ml Oral.Susp) 30 ml PO DAILY PRN PRN Reason: Constipation Midodrine (Midodrine Hcl 5 Mg Tablet) 5 mg PO TID@0900,1500,1800 [facility] Last Admin: 11/15/24 09:13 Dose: 5 mg Olanzapine (Olanzapine 2.5 Mg Tablet) 2.5 mg PO TID [facility] Last Admin: 11/15/24 09:14 Dose: 2.5 mg Omeprazole (Omeprazole 20 Mg Capsule.Dr) 20 mg PO DAILY@0630 [facility] Last Admin: 11/15/24 05:39 Dose: 20 mg Sertraline HCl (Sertraline Hcl 50 Mg Tablet) 150 mg PO DAILY [facility] Last Admin: 11/15/24 09:10 Dose: 150 mg Zolpidem Tartrate (Zolpidem Tartrate 5 Mg Tablet) 5 mg PO BEDTIME PRN PRN Reason: Insomnia Last Admin: 11/14/24 19:38 Dose: 5 mg Allergies Allergies Allergy/AdvReac Type Severity Reaction Status Date / Time ciprofloxacin (From CIPRO) Allergy Unknown DIARRHEA Verified 09/30/24 10:57 Morpholine Analogues Allergy Unknown Unknown Verified 09/30/24 10:57 amoxicillin Allergy Nausea Verified 09/30/24 10:57 meperidine Allergy Unknown Verified 09/30/24 10:57 pollen extracts Allergy Unknown Verified 09/30/24 10:57 Assessment & Plan Assessment & Plan (1) MDD (major depressive disorder), recurrent episode, moderate: Status: Acute Code(s): F33.1 - Major depressive disorder, recurrent, moderate (2) Dependent personality disorder: Status: Acute Code(s): F60.7 - Dependent personality disorder (3) Orthostatic hypotension: Status: Acute Code(s): I95.1 - Orthostatic hypotension (4) Generalized anxiety disorder with panic attacks: Status: Acute Code(s): F41.1 - Generalized anxiety disorder; F41.0 - Panic disorder [episodic paroxysmal anxiety] Plan Mr. Smith is a 74 year-old trans female to male who self presented to [facility] ED reporting increased depression, suicidal ideation with plan to drown self in bathtub. He reports feelings of abandonment, helplessness, hopelessness, needing care from other. He reports this is in setting of his psychotherapist retiring in April. Unclear if this is the case. He also reports he was at [facility] for last 3 months. Will obtain records from [facility]. Pt signed NADYA. We discussed risks, benefits and alternative treatment options. continue current medications. PLAN 11/04 continue to present with ortho HOTN, SBP dropping when standing by 20 points, this despite lowering olanzapine from 5mg po TID to 2.5mg po TID and lowering anafranil to 50mg po qhs. Pt has been drinking more fluids. May need IV fluids, although pt hesitant to receive fluids. 11/05 continue tx. 11/06 continue tx. 11/07 d/c anafranil. increase sertraline to 100mg po daily, continue olanzapine 2.5mg po TID. 11/08 continue tx. continue to monitor BP, ortho VS. may need to adjust midodrine of BP improves with discontinuation of anafranil and decreased dose of olanzapine. 11/10: Decrease midodrine dosing to 5 mg bid 0900, 1800 11/11 continue current medications. 11/12 continue tx. 11/13 continue tx 11/14 continue tx 11/15 continue tx. Reason for continued inpatient stay Substantial Risk for: inability to function Time Spent With Patient Time: Total time managing care of this patient today ____ minutes.
[2024-11-16 08:00] VITALS: BP 109/59; PULSE 81; RESP 18; TEMP 2.5; TEMP 36.5; O2SAT 95
[2024-11-16 15:07] VITALS: BP 118/56
[2024-11-16 18:26] VITALS: BP 115/67
--- NOTE | 2024-11-16 19:24 | P.PNPSI_ITS ---
Subjective Subjective Date of Service: 11/16/24 Reason For Visit: si Interim History: Pt slept through the night. he reports feeling anxious, less depressed. he reports feeling very worried about returning home. no suicidal thoughts. however, his ability to care for himself is concerning. He continues to decline going to [facility]. He did call friends and was able to get help to pay utilities. Less dizziness. Review of Systems Review of Systems Orthostasis Mental Status Exam Mental Status Exam Narrative: Appearance: marginal hygiene, appears anxious Behavior:cooperative. psychomotor:no agitation or retardation noted Speech:clear, normal rate/rhythm/volume, spontaneous Thought process:linear Thought content:no signs of psychosis, anxious Mood: I feel anxious today Affect: constricted, hyper-intense, non-labile SI: none expressed HI: none expressed VH/AH: none expressed Delusions: none expressed Insight/judgment:fair x 2. Memory/cog: alert, oriented x3. Diagnostics Vital Signs (24Hr): Vital Signs - 24 hr 11/15/24 19:41 11/16/24 08:00 11/16/24 08:00 Temperature 97.9 F 36.5 F L Pulse Rate 66 81 81 Respiratory Rate 16 18 Blood Pressure 135/74 109/59 L 109/59 L Pulse Oximetry 95 95 Oxygen Delivery Method Room Air Room Air 11/16/24 15:07 11/16/24 18:26 Temperature Pulse Rate Respiratory Rate Blood Pressure 118/56 L 115/67 Pulse Oximetry Oxygen Delivery Method BMI result Body Mass Index 27.5 Labs 11/05/24 07:31 11/05/24 07:31 Medications Medications Current Medications Acetaminophen (Acetaminophen 325 Mg Tablet) 650 mg PO Q6H PRN PRN Reason: Headache/Pain, Scale 1-10 Al Hydroxide/Mg Hydroxide (Magnesium Hydrox/Alum Hydrox 30 Ml Oral.Susp) 30 ml PO Q6H PRN PRN Reason: Heartburn/Nausea Diazepam (Diazepam 2 Mg Tablet) 1 mg PO BID [facility] Last Admin: 11/16/24 08:47 Dose: 1 mg Famotidine (Famotidine 20 Mg Tablet) 20 mg PO DAILY [facility] Last Admin: 11/16/24 08:48 Dose: 20 mg Magnesium Hydroxide (Milk Of Magnesia 30 Ml Oral.Susp) 30 ml PO DAILY PRN PRN Reason: Constipation Midodrine (Midodrine Hcl 5 Mg Tablet) 5 mg PO TID@0900,1500,1800 [facility] Last Admin: 11/16/24 18:26 Dose: 5 mg Olanzapine (Olanzapine 2.5 Mg Tablet) 2.5 mg PO TID [facility] Last Admin: 11/16/24 15:07 Dose: 2.5 mg Omeprazole (Omeprazole 20 Mg Capsule.) 20 mg PO DAILY@0630 [facility] Last Admin: 11/16/24 05:56 Dose: 20 mg Sertraline HCl (Sertraline Hcl 50 Mg Tablet) 150 mg PO DAILY [facility] Last Admin: 11/16/24 08:49 Dose: 150 mg Zolpidem Tartrate (Zolpidem Tartrate 5 Mg Tablet) 5 mg PO BEDTIME PRN PRN Reason: Insomnia Last Admin: 11/15/24 19:43 Dose: 5 mg Allergies Allergies Allergy/AdvReac Type Severity Reaction Status Date / Time ciprofloxacin (From CIPRO) Allergy Unknown DIARRHEA Verified 09/30/24 10:57 Morpholine Analogues Allergy Unknown Unknown Verified 09/30/24 10:57 amoxicillin Allergy Nausea Verified 09/30/24 10:57 meperidine Allergy Unknown Verified 09/30/24 10:57 pollen extracts Allergy Unknown Verified 09/30/24 10:57 Assessment & Plan Assessment & Plan (1) MDD (major depressive disorder), recurrent episode, moderate: Status: Acute Code(s): F33.1 - Major depressive disorder, recurrent, moderate (2) Dependent personality disorder: Status: Acute Code(s): F60.7 - Dependent personality disorder (3) Orthostatic hypotension: Status: Acute Code(s): I95.1 - Orthostatic hypotension (4) Generalized anxiety disorder with panic attacks: Status: Acute Code(s): F41.1 - Generalized anxiety disorder; F41.0 - Panic disorder [episodic paroxysmal anxiety] Plan Mr. Smith is a 74 year-old trans female to male who self presented to [facility] reporting increased depression, suicidal ideation with plan to drown self in bathtub. He reports feelings of abandonment, helplessness, hopelessness, needing care from other. He reports this is in setting of his psychotherapist retiring in April. Unclear if this is the case. He also reports he was at [facility] for last 3 months. Will obtain records from [facility]. Pt signed NADYA. We discussed risks, benefits and alternative treatment options. continue current medications. PLAN 6/16 continue to present with ortho HOTN, SBP dropping when standing by 20 points, this despite lowering olanzapine from 5mg po TID to 2.5mg po TID and lowering anafranil to 50mg po qhs. Pt has been drinking more fluids. May need IV fluids, although pt hesitant to receive fluids. 11/05 continue tx. 11/06 continue tx. 11/07 d/c anafranil. increase sertraline to 100mg po daily, continue olanzapine 2.5mg po TID. 11/08 continue tx. continue to monitor BP, ortho VS. may need to adjust midodrine of BP improves with discontinuation of anafranil and decreased dose of olanzapine. 11/10: Decrease midodrine dosing to 5 mg bid 0900, 1800 11/11 continue current medications. 11/12 continue tx. 11/13 continue tx 11/14 continue tx 11/15 continue tx 11/16 continue tx. Reason for continued inpatient stay Substantial Risk for: inability to function Time Spent With Patient Time: Total time managing care of this patient today ____ minutes.
[2024-11-16 19:56] VITALS: BP 135/60; PULSE 74; RESP 16; TEMP 36.4; O2SAT 96
[2024-11-17 07:58] VITALS: BP 122/60; PULSE 86; RESP 18; TEMP 36.6; O2SAT 96
[2024-11-17 15:01] VITALS: BP 113/63
--- NOTE | 2024-11-17 17:32 | HO.PSYCHPN ---
Subjective Subjective Date of Service: 11/17/24 Reason For Visit: si Interim History: Pt slept through the night. he reports feeling anxious, less depressed. he reports feeling very worried about returning home. no suicidal thoughts. however, his ability to care for himself is concerning. He continues to decline going to [facility]. He did call friends and was able to get help to pay utilities. Less dizziness. Review of Systems Review of Systems Orthostasis Mental Status Exam Mental Status Exam Narrative: Appearance: marginal hygiene, appears anxious Behavior:cooperative. psychomotor:no agitation or retardation noted Speech:clear, normal rate/rhythm/volume, spontaneous Thought process:linear Thought content:no signs of psychosis, anxious Mood: I feel anxious today Affect: constricted, hyper-intense, non-labile SI: none expressed HI: none expressed VH/AH: none expressed Delusions: none expressed Insight/judgment:fair x 2. Memory/cog: alert, oriented x3. Diagnostics Vital Signs (24Hr): Vital Signs - 24 hr 11/16/24 18:26 11/16/24 19:56 11/17/24 07:58 Temperature 97.5 F 97.9 F Pulse Rate 74 86 Respiratory Rate 16 18 Blood Pressure 115/67 135/60 122/60 Pulse Oximetry 96 96 Oxygen Delivery Method Room Air Room Air 11/17/24 15:01 Temperature Pulse Rate Respiratory Rate Blood Pressure 113/63 Pulse Oximetry Oxygen Delivery Method BMI result Body Mass Index 27.5 Labs 11/05/24 07:31 11/05/24 07:31 Medications Medications Current Medications Acetaminophen (Acetaminophen 325 Mg Tablet) 650 mg PO Q6H PRN PRN Reason: Headache/Pain, Scale 1-10 Al Hydroxide/Mg Hydroxide (Magnesium Hydrox/Alum Hydrox 30 Ml Oral.Susp) 30 ml PO Q6H PRN PRN Reason: Heartburn/Nausea Diazepam (Diazepam 2 Mg Tablet) 1 mg PO BID [facility] Last Admin: 11/17/24 08:16 Dose: 1 mg Famotidine (Famotidine 20 Mg Tablet) 20 mg PO DAILY [facility] Last Admin: 11/17/24 08:16 Dose: 20 mg Magnesium Hydroxide (Milk Of Magnesia 30 Ml Oral.Susp) 30 ml PO DAILY PRN PRN Reason: Constipation Midodrine (Midodrine Hcl 5 Mg Tablet) 5 mg PO TID@0900,1500,1800 [facility] Last Admin: 11/17/24 15:01 Dose: 5 mg Olanzapine (Olanzapine 2.5 Mg Tablet) 2.5 mg PO TID [facility] Last Admin: 11/17/24 14:59 Dose: 2.5 mg Omeprazole (Omeprazole 20 Mg Capsule.Dr) 20 mg PO DAILY@0630 [facility] Last Admin: 11/17/24 05:40 Dose: 20 mg Sertraline HCl (Sertraline Hcl 100 Mg Tablet) 200 mg PO DAILY [facility] Zolpidem Tartrate (Zolpidem Tartrate 5 Mg Tablet) 5 mg PO BEDTIME PRN PRN Reason: Insomnia Last Admin: 11/16/24 19:57 Dose: 5 mg Allergies Allergies Allergy/AdvReac Type Severity Reaction Status Date / Time ciprofloxacin (From CIPRO) Allergy Unknown DIARRHEA Verified 09/30/24 10:57 Morpholine Analogues Allergy Unknown Unknown Verified 09/30/24 10:57 amoxicillin Allergy Nausea Verified 09/30/24 10:57 meperidine Allergy Unknown Verified 09/30/24 10:57 pollen extracts Allergy Unknown Verified 09/30/24 10:57 Assessment & Plan Assessment & Plan (1) MDD (major depressive disorder), recurrent episode, moderate: Status: Acute Code(s): F33.1 - Major depressive disorder, recurrent, moderate (2) Dependent personality disorder: Status: Acute Code(s): F60.7 - Dependent personality disorder (3) Orthostatic hypotension: Status: Acute Code(s): I95.1 - Orthostatic hypotension (4) Generalized anxiety disorder with panic attacks: Status: Acute Code(s): F41.1 - Generalized anxiety disorder; F41.0 - Panic disorder [episodic paroxysmal anxiety] Plan Mr. Smith is a 74 year-old trans female to male who self presented to [facility] ED reporting increased depression, suicidal ideation with plan to drown self in bathtub. He reports feelings of abandonment, helplessness, hopelessness, needing care from other. He reports this is in setting of his psychotherapist retiring in April. Unclear if this is the case. He also reports he was at [facility] for last 3 months. Will obtain records from [facility]. Pt signed NADYA. We discussed risks, benefits and alternative treatment options. continue current medications. PLAN 11/04 continue to present with ortho HOTN, SBP dropping when standing by 20 points, this despite lowering olanzapine from 5mg po TID to 2.5mg po TID and lowering anafranil to 50mg po qhs. Pt has been drinking more fluids. May need IV fluids, although pt hesitant to receive fluids. 11/05 continue tx. 11/06 continue tx. 11/07 d/c anafranil. increase sertraline to 100mg po daily, continue olanzapine 2.5mg po TID. 11/08 continue tx. continue to monitor BP, ortho VS. may need to adjust midodrine of BP improves with discontinuation of anafranil and decreased dose of olanzapine. 11/10: Decrease midodrine dosing to 5 mg bid 0900, 1800 11/11 continue current medications. 11/12 continue tx. 11/13 continue tx 11/14 continue tx 11/15 continue tx 11/16 continue tx. 11/17 increase sertraline to 100mg po daily. Reason for continued inpatient stay Substantial Risk for: inability to function Time Spent With Patient Time: Total time managing care of this patient today ____ minutes.
[2024-11-17 18:07] VITALS: BP 103/57
[2024-11-17 20:00] VITALS: BP 105/57; PULSE 74; RESP 18; TEMP 36.3; O2SAT 96
[2024-11-18 08:09] VITALS: BP 144/72; PULSE 105; RESP 18; TEMP 36.2; O2SAT 95
--- NOTE | 2024-11-18 11:14 | HO.PSYCHPN ---
Subjective Subjective Date of Service: 11/18/24 Reason For Visit: si Subjective Notes: Conditional Voluntary Interim History: Pt slept through the night. He reports feeling very anxious when talking about discharge this week, he reports he needs at least one more week. We discussed again that he needs more supports in the community but he declines to consider a higher level of care like [facility]. He is also limited but his financial situation. Review of Systems Review of Systems Orthostasis Mental Status Exam Mental Status Exam Narrative: Appearance: marginal hygiene, appears anxious Behavior:cooperative. psychomotor:no agitation or retardation noted Speech:clear, normal rate/rhythm/volume, spontaneous Thought process:linear Thought content:no signs of psychosis, anxious Mood: I feel anxious today Affect: constricted, hyper-intense, non-labile SI: none expressed HI: none expressed VH/AH: none expressed Delusions: none expressed Insight/judgment:fair x 2. Memory/cog: alert, oriented x3. Diagnostics Vital Signs (24Hr): Vital Signs - 24 hr 11/17/24 15:01 11/17/24 18:07 11/17/24 20:00 Temperature 97.3 F Pulse Rate 74 Respiratory Rate 18 Blood Pressure 113/63 103/57 L 105/57 L Pulse Oximetry 96 Oxygen Delivery Method Room Air 11/18/24 08:09 Temperature 97.2 F Pulse Rate 105 H Respiratory Rate 18 Blood Pressure 144/72 H Pulse Oximetry 95 Oxygen Delivery Method Room Air BMI result Body Mass Index 27.5 Labs 11/05/24 07:31 11/05/24 07:31 Medications Medications Current Medications Acetaminophen (Acetaminophen 325 Mg Tablet) 650 mg PO Q6H PRN PRN Reason: Headache/Pain, Scale 1-10 Al Hydroxide/Mg Hydroxide (Magnesium Hydrox/Alum Hydrox 30 Ml Oral.Susp) 30 ml PO Q6H PRN PRN Reason: Heartburn/Nausea Diazepam (Diazepam 2 Mg Tablet) 1 mg PO BID COUNTS INCLUDE 234 BEDS AT THE [facility] Last Admin: 11/18/24 08:16 Dose: 1 mg Famotidine (Famotidine 20 Mg Tablet) 20 mg PO DAILY COUNTS INCLUDE 234 BEDS AT THE [facility] Last Admin: 11/18/24 08:16 Dose: 20 mg Magnesium Hydroxide (Milk Of Magnesia 30 Ml Oral.Susp) 30 ml PO DAILY PRN PRN Reason: Constipation Midodrine (Midodrine Hcl 5 Mg Tablet) 5 mg PO TID@0900,1500,1800 COUNTS INCLUDE 234 BEDS AT THE [facility] Last Admin: 11/18/24 08:17 Dose: Not Given Olanzapine (Olanzapine 2.5 Mg Tablet) 2.5 mg PO TID COUNTS INCLUDE 234 BEDS AT THE [facility] Last Admin: 11/18/24 08:16 Dose: 2.5 mg Omeprazole (Omeprazole 20 Mg Capsule.) 20 mg PO DAILY@0630 COUNTS INCLUDE 234 BEDS AT THE [facility] Last Admin: 11/18/24 05:35 Dose: 20 mg Sertraline HCl (Sertraline Hcl 100 Mg Tablet) 200 mg PO DAILY COUNTS INCLUDE 234 BEDS AT THE [facility] Last Admin: 11/18/24 08:16 Dose: 200 mg Zolpidem Tartrate (Zolpidem Tartrate 5 Mg Tablet) 5 mg PO BEDTIME PRN PRN Reason: Insomnia Last Admin: 11/17/24 20:29 Dose: 5 mg Allergies Allergies Allergy/AdvReac Type Severity Reaction Status Date / Time ciprofloxacin (From CIPRO) Allergy Unknown DIARRHEA Verified 09/30/24 10:57 Morpholine Analogues Allergy Unknown Unknown Verified 09/30/24 10:57 amoxicillin Allergy Nausea Verified 09/30/24 10:57 meperidine Allergy Unknown Verified 09/30/24 10:57 pollen extracts Allergy Unknown Verified 09/30/24 10:57 Assessment & Plan Assessment & Plan (1) MDD (major depressive disorder), recurrent episode, moderate: Status: Acute Code(s): F33.1 - Major depressive disorder, recurrent, moderate (2) Dependent personality disorder: Status: Acute Code(s): F60.7 - Dependent personality disorder (3) Orthostatic hypotension: Status: Acute Code(s): I95.1 - Orthostatic hypotension (4) Generalized anxiety disorder with panic attacks: Status: Acute Code(s): F41.1 - Generalized anxiety disorder; F41.0 - Panic disorder [episodic paroxysmal anxiety] Plan Mr. Smith is a 74 year-old trans female to male who self presented to [facility] reporting increased depression, suicidal ideation with plan to drown self in bathtub. He reports feelings of abandonment, helplessness, hopelessness, needing care from other. He reports this is in setting of his psychotherapist retiring in April. Unclear if this is the case. He also reports he was at [facility] for last 3 months. Will obtain records from [facility]. Pt signed NADYA. We discussed risks, benefits and alternative treatment options. continue current medications. PLAN 11/04 continue to present with ortho HOTN, SBP dropping when standing by 20 points, this despite lowering olanzapine from 5mg po TID to 2.5mg po TID and lowering anafranil to 50mg po qhs. Pt has been drinking more fluids. May need IV fluids, although pt hesitant to receive fluids. 11/05 continue tx. 11/06 continue tx. 11/07 d/c anafranil. increase sertraline to 100mg po daily, continue olanzapine 2.5mg po TID. 11/08 continue tx. continue to monitor BP, ortho VS. may need to adjust midodrine of BP improves with discontinuation of anafranil and decreased dose of olanzapine. 11/10: Decrease midodrine dosing to 5 mg bid 0900, 1800 11/11 continue current medications. 11/12 continue tx. 11/13 continue tx 11/14 continue tx 11/15 continue tx 11/16 continue tx. 11/17 increase sertraline to 100mg po daily. 11/18 continue tx. Reason for continued inpatient stay Substantial Risk for: inability to function Time Spent With Patient Time: Total time managing care of this patient today ____ minutes.
[2024-11-18 15:05] VITALS: BP 143/66
[2024-11-18 18:07] VITALS: BP 113/65
[2024-11-18 20:00] VITALS: BP 113/91; PULSE 82; RESP 19; TEMP 35.7; O2SAT 96
[2024-11-19 07:55] VITALS: BP 107/60; PULSE 77; RESP 18; TEMP 36.4; O2SAT 95
[2024-11-19 14:45] VITALS: BP 106/64
[2024-11-19 17:31] VITALS: BP 116/62
--- NOTE | 2024-11-19 18:58 | HO.PSYCHPN ---
Subjective Subjective Date of Service: 11/19/24 Reason For Visit: si Interim History: Pt slept through the night. He reports feeling very anxious when talking about discharge this week, he reports he needs at least one more week. We discussed again that he needs more supports in the community but he declines to consider a higher level of care like [facility]. He is also limited but his financial situation. Review of Systems Review of Systems Orthostasis Mental Status Exam Mental Status Exam Narrative: Appearance: marginal hygiene, appears anxious Behavior:cooperative. psychomotor:no agitation or retardation noted Speech:clear, normal rate/rhythm/volume, spontaneous Thought process:linear Thought content:no signs of psychosis, anxious Mood: I feel anxious today Affect: constricted, hyper-intense, non-labile SI: none expressed HI: none expressed VH/AH: none expressed Delusions: none expressed Insight/judgment:fair x 2. Memory/cog: alert, oriented x3. Diagnostics Vital Signs (24Hr): Vital Signs - 24 hr 11/18/24 20:00 11/19/24 07:55 11/19/24 14:45 Temperature 96.3 F L 97.5 F Pulse Rate 82 77 Respiratory Rate 19 18 Blood Pressure 113/91 H 107/60 106/64 Pulse Oximetry 96 95 Oxygen Delivery Method Room Air Room Air 11/19/24 17:31 Temperature Pulse Rate Respiratory Rate Blood Pressure 116/62 Pulse Oximetry Oxygen Delivery Method BMI result Body Mass Index 27.5 Labs 11/05/24 07:31 11/05/24 07:31 Medications Medications Current Medications Acetaminophen (Acetaminophen 325 Mg Tablet) 650 mg PO Q6H PRN PRN Reason: Headache/Pain, Scale 1-10 Al Hydroxide/Mg Hydroxide (Magnesium Hydrox/Alum Hydrox 30 Ml Oral.Susp) 30 ml PO Q6H PRN PRN Reason: Heartburn/Nausea Diazepam (Diazepam 2 Mg Tablet) 1 mg PO BID [facility] Last Admin: 11/19/24 08:45 Dose: 1 mg Famotidine (Famotidine 20 Mg Tablet) 20 mg PO DAILY [facility] Last Admin: 11/19/24 08:45 Dose: 20 mg Magnesium Hydroxide (Milk Of Magnesia 30 Ml Oral.Susp) 30 ml PO DAILY PRN PRN Reason: Constipation Midodrine (Midodrine Hcl 5 Mg Tablet) 5 mg PO TID@0900,1500,1800 [facility] Last Admin: 11/19/24 17:31 Dose: 5 mg Olanzapine (Olanzapine 2.5 Mg Tablet) 2.5 mg PO TID [facility] Last Admin: 11/19/24 14:45 Dose: 2.5 mg Omeprazole (Omeprazole 20 Mg Capsule.) 20 mg PO DAILY@0630 [facility] Last Admin: 11/19/24 05:56 Dose: 20 mg Sertraline HCl (Sertraline Hcl 100 Mg Tablet) 200 mg PO DAILY [facility] Last Admin: 11/19/24 08:45 Dose: 200 mg Zolpidem Tartrate (Zolpidem Tartrate 5 Mg Tablet) 5 mg PO BEDTIME PRN PRN Reason: Insomnia Last Admin: 11/18/24 20:42 Dose: 5 mg Allergies Allergies Allergy/AdvReac Type Severity Reaction Status Date / Time ciprofloxacin (From CIPRO) Allergy Unknown DIARRHEA Verified 09/30/24 10:57 Morpholine Analogues Allergy Unknown Unknown Verified 09/30/24 10:57 amoxicillin Allergy Nausea Verified 09/30/24 10:57 meperidine Allergy Unknown Verified 09/30/24 10:57 pollen extracts Allergy Unknown Verified 09/30/24 10:57 Assessment & Plan Assessment & Plan (1) MDD (major depressive disorder), recurrent episode, moderate: Status: Acute Code(s): F33.1 - Major depressive disorder, recurrent, moderate (2) Dependent personality disorder: Status: Acute Code(s): F60.7 - Dependent personality disorder (3) Orthostatic hypotension: Status: Acute Code(s): I95.1 - Orthostatic hypotension (4) Generalized anxiety disorder with panic attacks: Status: Acute Code(s): F41.1 - Generalized anxiety disorder; F41.0 - Panic disorder [episodic paroxysmal anxiety] Plan Mr. Smith is a 74 year-old trans female to male who self presented to [facility] reporting increased depression, suicidal ideation with plan to drown self in bathtub. He reports feelings of abandonment, helplessness, hopelessness, needing care from other. He reports this is in setting of his psychotherapist retiring in April. Unclear if this is the case. He also reports he was at [facility] for last 3 months. Will obtain records from [facility]. Pt signed NADYA. We discussed risks, benefits and alternative treatment options. continue current medications. PLAN 11/04 continue to present with ortho HOTN, SBP dropping when standing by 20 points, this despite lowering olanzapine from 5mg po TID to 2.5mg po TID and lowering anafranil to 50mg po qhs. Pt has been drinking more fluids. May need IV fluids, although pt hesitant to receive fluids. 11/05 continue tx. 11/06 continue tx. 11/07 d/c anafranil. increase sertraline to 100mg po daily, continue olanzapine 2.5mg po TID. 11/08 continue tx. continue to monitor BP, ortho VS. may need to adjust midodrine of BP improves with discontinuation of anafranil and decreased dose of olanzapine. 11/10: Decrease midodrine dosing to 5 mg bid 0900, 1800 11/11 continue current medications. 11/12 continue tx. 11/13 continue tx 11/14 continue tx 11/15 continue tx 11/16 continue tx. 11/17 increase sertraline to 100mg po daily. 11/18 continue tx 11/19 continue tx. Reason for continued inpatient stay Substantial Risk for: inability to function Time Spent With Patient Time: Total time managing care of this patient today ____ minutes.
[2024-11-19 20:00] VITALS: BP 124/59; PULSE 66; RESP 16; TEMP 36.6; O2SAT 96
[2024-11-20 07:50] VITALS: BP 133/67; PULSE 94; RESP 18; TEMP 36.8; O2SAT 96
[2024-11-20 14:35] VITALS: BP 113/62
--- NOTE | 2024-11-20 16:07 | P.PNPSI_ITS ---
Subjective Subjective Date of Service: 11/20/24 Reason For Visit: si Interim History: lying in bed, appears anxious. c/o anxiety due to being discharged one week from today. no requests or complaints otherwise. per staff, taking meds, slept 8 hours. D/C next week. Mental Status Exam Mental Status Exam Narrative: Appearance: marginal hygiene, appears anxious Behavior:cooperative. psychomotor:no agitation or retardation noted Speech:clear, normal rate/rhythm/volume, spontaneous Thought process:linear Thought content:no signs of psychosis, anxious Mood: I feel anxious today Affect: constricted, hyper-intense, non-labile SI: none expressed HI: none expressed VH/AH: none expressed Delusions: none expressed Insight/judgment:fair x 2. Memory/cog: alert, oriented x3. Diagnostics Vital Signs (24Hr): Vital Signs - 24 hr 11/19/24 17:31 11/19/24 20:00 11/20/24 07:50 Temperature 97.8 F 98.2 F Pulse Rate 66 94 Respiratory Rate 16 18 Blood Pressure 116/62 124/59 L 133/67 Pulse Oximetry 96 96 Oxygen Delivery Method Room Air Room Air 11/20/24 14:35 Temperature Pulse Rate Respiratory Rate Blood Pressure 113/62 Pulse Oximetry Oxygen Delivery Method BMI result Body Mass Index 27.5 Labs 11/05/24 07:31 11/05/24 07:31 Medications Medications Current Medications Acetaminophen (Acetaminophen 325 Mg Tablet) 650 mg PO Q6H PRN PRN Reason: Headache/Pain, Scale 1-10 Al Hydroxide/Mg Hydroxide (Magnesium Hydrox/Alum Hydrox 30 Ml Oral.Susp) 30 ml PO Q6H PRN PRN Reason: Heartburn/Nausea Diazepam (Diazepam 2 Mg Tablet) 1 mg PO BID [facility] Last Admin: 11/20/24 08:31 Dose: 1 mg Famotidine (Famotidine 20 Mg Tablet) 20 mg PO DAILY [facility] Last Admin: 11/20/24 08:31 Dose: 20 mg Magnesium Hydroxide (Milk Of Magnesia 30 Ml Oral.Susp) 30 ml PO DAILY PRN PRN Reason: Constipation Midodrine (Midodrine Hcl 5 Mg Tablet) 5 mg PO TID@0900,1500,1800 [facility] Last Admin: 11/20/24 14:35 Dose: 5 mg Olanzapine (Olanzapine 2.5 Mg Tablet) 2.5 mg PO TID [facility] Last Admin: 11/20/24 14:36 Dose: 2.5 mg Omeprazole (Omeprazole 20 Mg Capsule.) 20 mg PO DAILY@0630 [facility] Last Admin: 11/20/24 06:03 Dose: 20 mg Sertraline HCl (Sertraline Hcl 100 Mg Tablet) 200 mg PO DAILY [facility] Last Admin: 11/20/24 08:31 Dose: 200 mg Zolpidem Tartrate (Zolpidem Tartrate 5 Mg Tablet) 5 mg PO BEDTIME PRN PRN Reason: Insomnia Last Admin: 11/19/24 21:06 Dose: 5 mg Allergies Allergies Allergy/AdvReac Type Severity Reaction Status Date / Time ciprofloxacin (From CIPRO) Allergy Unknown DIARRHEA Verified 09/30/24 10:57 Morpholine Analogues Allergy Unknown Unknown Verified 09/30/24 10:57 amoxicillin Allergy Nausea Verified 09/30/24 10:57 meperidine Allergy Unknown Verified 09/30/24 10:57 pollen extracts Allergy Unknown Verified 09/30/24 10:57 Assessment & Plan Assessment & Plan (1) MDD (major depressive disorder), recurrent episode, moderate: Status: Acute Code(s): F33.1 - Major depressive disorder, recurrent, moderate (2) Dependent personality disorder: Status: Acute Code(s): F60.7 - Dependent personality disorder (3) Orthostatic hypotension: Status: Acute Code(s): I95.1 - Orthostatic hypotension (4) Generalized anxiety disorder with panic attacks: Status: Acute Code(s): F41.1 - Generalized anxiety disorder; F41.0 - Panic disorder [episodic paroxysmal anxiety] Plan Mr. Smith is a 74 year-old trans female to male who self presented to [facility] reporting increased depression, suicidal ideation with plan to drown self in bathtub. He reports feelings of abandonment, helplessness, hopelessness, needing care from other. He reports this is in setting of his psychotherapist retiring in April. Unclear if this is the case. He also reports he was at [facility] for last 3 months. Will obtain records from [facility]. Pt signed NADYA. We discussed risks, benefits and alternative treatment options. continue current medications. PLAN 11/04 continue to present with ortho HOTN, SBP dropping when standing by 20 points, this despite lowering olanzapine from 5mg po TID to 2.5mg po TID and lowering anafranil to 50mg po qhs. Pt has been drinking more fluids. May need IV fluids, although pt hesitant to receive fluids. 11/05 continue tx. 11/06 continue tx. 11/07 d/c anafranil. increase sertraline to 100mg po daily, continue olanzapine 2.5mg po TID. 11/08 continue tx. continue to monitor BP, ortho VS. may need to adjust midodrine of BP improves with discontinuation of anafranil and decreased dose of olanzapine. 11/10: Decrease midodrine dosing to 5 mg bid 0900, 1800 11/11 continue current medications. 11/12 continue tx. 11/13 continue tx 11/14 continue tx 11/15 continue tx 11/16 continue tx. 11/17 increase sertraline to 100mg po daily. 11/18 continue tx 11/19 continue tx. 11/20: anxious about discharging next . stable. continue current mgmt. Reason for continued inpatient stay Substantial Risk for: inability to function and rapid decompensation Time Spent With Patient Time: Total time managing care of this patient today ____ minutes.
[2024-11-20 17:40] VITALS: BP 130/66
[2024-11-20 20:00] VITALS: BP 115/59; PULSE 80; RESP 16; TEMP 36.3; O2SAT 80
[2024-11-21 08:41] VITALS: BP 121/58; PULSE 88; RESP 16; TEMP 36.9; O2SAT 97
[2024-11-21 14:32] VITALS: BP 109/65
[2024-11-21 18:01] VITALS: BP 116/58
--- NOTE | 2024-11-21 19:08 | P.PNPSI_ITS ---
Subjective Subjective Date of Service: 11/21/24 Reason For Visit: si Subjective Notes: Conditional Voluntary Interim History: Pt sleeping through the night. He reports feeling more anxious. He is expecting dc next week. concern in terms of his ability to care for self are brought up again, pt at this point does not want to consider higher level of care. No SI/HI. Review of Systems Review of Systems Orthostasis Mental Status Exam Mental Status Exam Narrative: Appearance: marginal hygiene, appears anxious Behavior:cooperative. psychomotor:no agitation or retardation noted Speech:clear, normal rate/rhythm/volume, spontaneous Thought process:linear Thought content:no signs of psychosis, anxious Mood: I feel anxious today Affect: constricted, hyper-intense, non-labile SI: none expressed HI: none expressed VH/AH: none expressed Delusions: none expressed Insight/judgment:fair x 2. Memory/cog: alert, oriented x3. Diagnostics Vital Signs (24Hr): Vital Signs - 24 hr 11/20/24 20:00 11/21/24 08:41 11/21/24 14:32 Temperature 97.3 F 98.4 F Pulse Rate 80 88 Respiratory Rate 16 16 Blood Pressure 115/59 L 121/58 L 109/65 Pulse Oximetry 80 L 97 Oxygen Delivery Method Room Air Room Air 11/21/24 18:01 Temperature Pulse Rate Respiratory Rate Blood Pressure 116/58 L Pulse Oximetry Oxygen Delivery Method BMI result Body Mass Index 27.5 Labs 11/05/24 07:31 11/05/24 07:31 Medications Medications Current Medications Acetaminophen (Acetaminophen 325 Mg Tablet) 650 mg PO Q6H PRN PRN Reason: Headache/Pain, Scale 1-10 Al Hydroxide/Mg Hydroxide (Magnesium Hydrox/Alum Hydrox 30 Ml Oral.Susp) 30 ml PO Q6H PRN PRN Reason: Heartburn/Nausea Diazepam (Diazepam 2 Mg Tablet) 1 mg PO BID [facility] Last Admin: 11/21/24 08:42 Dose: 1 mg Famotidine (Famotidine 20 Mg Tablet) 20 mg PO DAILY [facility] Last Admin: 11/21/24 08:42 Dose: 20 mg Magnesium Hydroxide (Milk Of Magnesia 30 Ml Oral.Susp) 30 ml PO DAILY PRN PRN Reason: Constipation Midodrine (Midodrine Hcl 5 Mg Tablet) 5 mg PO TID@0900,1500,1800 [facility] Last Admin: 11/21/24 18:01 Dose: 5 mg Olanzapine (Olanzapine 2.5 Mg Tablet) 2.5 mg PO TID [facility] Last Admin: 11/21/24 14:32 Dose: 2.5 mg Omeprazole (Omeprazole 20 Mg Capsule.) 20 mg PO DAILY@0630 [facility] Last Admin: 11/21/24 05:42 Dose: 20 mg Sertraline HCl (Sertraline Hcl 100 Mg Tablet) 200 mg PO DAILY [facility] Last Admin: 11/21/24 08:42 Dose: 200 mg Zolpidem Tartrate (Zolpidem Tartrate 5 Mg Tablet) 5 mg PO BEDTIME PRN PRN Reason: Insomnia Last Admin: 11/20/24 19:57 Dose: 5 mg Allergies Allergies Allergy/AdvReac Type Severity Reaction Status Date / Time ciprofloxacin (From CIPRO) Allergy Unknown DIARRHEA Verified 09/30/24 10:57 Morpholine Analogues Allergy Unknown Unknown Verified 09/30/24 10:57 amoxicillin Allergy Nausea Verified 09/30/24 10:57 meperidine Allergy Unknown Verified 09/30/24 10:57 pollen extracts Allergy Unknown Verified 09/30/24 10:57 Assessment & Plan Assessment & Plan (1) MDD (major depressive disorder), recurrent episode, moderate: Status: Acute Code(s): F33.1 - Major depressive disorder, recurrent, moderate (2) Dependent personality disorder: Status: Acute Code(s): F60.7 - Dependent personality disorder (3) Orthostatic hypotension: Status: Acute Code(s): I95.1 - Orthostatic hypotension (4) Generalized anxiety disorder with panic attacks: Status: Acute Code(s): F41.1 - Generalized anxiety disorder; F41.0 - Panic disorder [episodic paroxysmal anxiety] Plan Mr. Smith is a 74 year-old trans female to male who self presented to [facility] reporting increased depression, suicidal ideation with plan to drown self in bathtub. He reports feelings of abandonment, helplessness, hopelessness, needing care from other. He reports this is in setting of his psychotherapist retiring in April. Unclear if this is the case. He also reports he was at [facility] for last 3 months. Will obtain records from [facility]. Pt signed NADYA. We discussed risks, benefits and alternative treatment options. continue current medications. PLAN 11/04 continue to present with ortho HOTN, SBP dropping when standing by 20 points, this despite lowering olanzapine from 5mg po TID to 2.5mg po TID and lowering anafranil to 50mg po qhs. Pt has been drinking more fluids. May need IV fluids, although pt hesitant to receive fluids. 11/05 continue tx. 11/06 continue tx. 11/07 d/c anafranil. increase sertraline to 100mg po daily, continue olanzapine 2.5mg po TID. 11/08 continue tx. continue to monitor BP, ortho VS. may need to adjust midodrine of BP improves with discontinuation of anafranil and decreased dose of olanzapine. 11/10: Decrease midodrine dosing to 5 mg bid 0900, 1800 11/11 continue current medications. 11/12 continue tx. 11/13 continue tx 11/14 continue tx 11/15 continue tx 11/16 continue tx. 11/17 increase sertraline to 100mg po daily. 11/18 continue tx 11/19 continue tx. 11/20: anxious about discharging next . stable. continue current mgmt. 11/21 continue tx. will add low dose anafranil, which he seemed to do better with but d/c due to ortho hotn. Reason for continued inpatient stay Substantial Risk for: inability to function Time Spent With Patient Time: Total time managing care of this patient today ____ minutes.
[2024-11-21 20:02] VITALS: BP 108/54; PULSE 60; RESP 16; TEMP 36.4; O2SAT 96
[2024-11-22 05:48] VITALS: BMI 27.0
[2024-11-22 08:25] VITALS: BP 121/58; RESP 20; TEMP 36.6; O2SAT 96
[2024-11-22 15:13] VITALS: BP 95/52
[2024-11-22 18:08] VITALS: BP 97/53
[2024-11-22 20:00] VITALS: BP 111/56; PULSE 61; RESP 18; TEMP 36.6; O2SAT 96
--- NOTE | 2024-11-22 21:42 | HO.PSYCHPN ---
Subjective Subjective Date of Service: 11/22/24 Reason For Visit: si Interim History: terrified. of taking a shower. educated pt re exposure therapy. per staff, mostly in bed. high anxiety. slept 7 hours. started anafranil. Mental Status Exam Mental Status Exam Narrative: Appearance: marginal hygiene, appears anxious Behavior:cooperative. psychomotor:no agitation or retardation noted Speech:clear, normal rate/rhythm/volume, spontaneous Thought process:linear Thought content:no signs of psychosis, anxious Mood: I feel anxious today Affect: constricted, hyper-intense, non-labile SI: none expressed HI: none expressed VH/AH: none expressed Delusions: none expressed Insight/judgment:fair x 2. Memory/cog: alert, oriented x3. Diagnostics Vital Signs (24Hr): Vital Signs - 24 hr 11/22/24 08:25 11/22/24 15:13 11/22/24 18:08 Temperature 97.9 F Respiratory Rate 20 Blood Pressure 121/58 L 95/52 L 97/53 L Pulse Oximetry 96 Oxygen Delivery Method Room Air BMI result Body Mass Index 27.0 Labs 11/05/24 07:31 11/05/24 07:31 Medications Medications Current Medications Acetaminophen (Acetaminophen 325 Mg Tablet) 650 mg PO Q6H PRN PRN Reason: Headache/Pain, Scale 1-10 Al Hydroxide/Mg Hydroxide (Magnesium Hydrox/Alum Hydrox 30 Ml Oral.Susp) 30 ml PO Q6H PRN PRN Reason: Heartburn/Nausea Clomipramine HCl (Clomipramine Hcl 25 Mg Capsule) 25 mg PO BEDTIME [facility] Last Admin: 11/22/24 21:14 Dose: 25 mg Diazepam (Diazepam 2 Mg Tablet) 1 mg PO BID [facility] Last Admin: 11/22/24 21:14 Dose: 1 mg Famotidine (Famotidine 20 Mg Tablet) 20 mg PO DAILY [facility] Last Admin: 11/22/24 08:29 Dose: 20 mg Magnesium Hydroxide (Milk Of Magnesia 30 Ml Oral.Susp) 30 ml PO DAILY PRN PRN Reason: Constipation Midodrine (Midodrine Hcl 5 Mg Tablet) 5 mg PO TID@0900,1500,1800 [facility] Last Admin: 11/22/24 18:08 Dose: 5 mg Olanzapine (Olanzapine 2.5 Mg Tablet) 2.5 mg PO TID [facility] Last Admin: 07/04/25 21:14 Dose: 2.5 mg Omeprazole (Omeprazole 20 Mg Capsule.) 20 mg PO DAILY@0630 [facility] Last Admin: 11/22/24 05:47 Dose: 20 mg Sertraline HCl (Sertraline Hcl 100 Mg Tablet) 200 mg PO DAILY [facility] Last Admin: 11/22/24 08:30 Dose: 200 mg Zolpidem Tartrate (Zolpidem Tartrate 5 Mg Tablet) 5 mg PO BEDTIME PRN PRN Reason: Insomnia Last Admin: 11/22/24 21:14 Dose: 5 mg Allergies Allergies Allergy/AdvReac Type Severity Reaction Status Date / Time ciprofloxacin (From CIPRO) Allergy Unknown DIARRHEA Verified 09/30/24 10:57 Morpholine Analogues Allergy Unknown Unknown Verified 09/30/24 10:57 amoxicillin Allergy Nausea Verified 09/30/24 10:57 meperidine Allergy Unknown Verified 09/30/24 10:57 pollen extracts Allergy Unknown Verified 09/30/24 10:57 Assessment & Plan Assessment & Plan (1) MDD (major depressive disorder), recurrent episode, moderate: Status: Acute Code(s): F33.1 - Major depressive disorder, recurrent, moderate (2) Dependent personality disorder: Status: Acute Code(s): F60.7 - Dependent personality disorder (3) Orthostatic hypotension: Status: Acute Code(s): I95.1 - Orthostatic hypotension (4) Generalized anxiety disorder with panic attacks: Status: Acute Code(s): F41.1 - Generalized anxiety disorder; F41.0 - Panic disorder [episodic paroxysmal anxiety] Plan Mr. Smith is a 74 year-old trans female to male who self presented to [facility] ED reporting increased depression, suicidal ideation with plan to drown self in bathtub. He reports feelings of abandonment, helplessness, hopelessness, needing care from other. He reports this is in setting of his psychotherapist retiring in April. Unclear if this is the case. He also reports he was at [facility] for last 3 months. Will obtain records from [facility]. Pt signed NADYA. We discussed risks, benefits and alternative treatment options. continue current medications. PLAN 11/04 continue to present with ortho HOTN, SBP dropping when standing by 20 points, this despite lowering olanzapine from 5mg po TID to 2.5mg po TID and lowering anafranil to 50mg po qhs. Pt has been drinking more fluids. May need IV fluids, although pt hesitant to receive fluids. 11/05 continue tx. 11/06 continue tx. 11/07 d/c anafranil. increase sertraline to 100mg po daily, continue olanzapine 2.5mg po TID. 11/08 continue tx. continue to monitor BP, ortho VS. may need to adjust midodrine of BP improves with discontinuation of anafranil and decreased dose of olanzapine. 11/10: Decrease midodrine dosing to 5 mg bid 0900, 1800 11/11 continue current medications. 11/12 continue tx. 11/13 continue tx 11/14 continue tx 11/15 continue tx 11/16 continue tx. 11/17 increase sertraline to 100mg po daily. 11/18 continue tx 11/19 continue tx. 11/20: anxious about discharging next . stable. continue current mgmt. 11/21 continue tx. will add low dose anafranil, which he seemed to do better with but d/c due to ortho hotn. 11/22: anxious. stable. continue current mgmt. Reason for continued inpatient stay Substantial Risk for: inability to function Time Spent With Patient Time: Total time managing care of this patient today ____ minutes.
[2024-11-23 08:09] VITALS: BP 159/56; PULSE 92; RESP 20; TEMP 37.2; O2SAT 97
--- NOTE | 2024-11-23 13:11 | P.PNPSI_ITS ---
Subjective Subjective Date of Service: 11/23/24 Reason For Visit: si Interim History: less terrified than yesterday. in bed initially, later observed ambulating in the franks. no questions or requests. per staff, very anxious. Mental Status Exam Mental Status Exam Narrative: Appearance: marginal hygiene, appears anxious Behavior:cooperative. psychomotor:no agitation or retardation noted Speech:clear, normal rate/rhythm/volume, spontaneous Thought process:linear Thought content:no signs of psychosis, anxious Mood: anxious Affect: constricted, hyper-intense, non-labile SI: none expressed HI: none expressed VH/AH: none expressed Delusions: none expressed Insight/judgment:fair x 2. Memory/cog: alert, oriented x3. Diagnostics Vital Signs (24Hr): Vital Signs - 24 hr 11/22/24 15:13 11/22/24 18:08 11/22/24 20:00 Temperature 97.9 F Pulse Rate 61 Respiratory Rate 18 Blood Pressure 95/52 L 97/53 L 111/56 L Pulse Oximetry 96 Oxygen Delivery Method Room Air 11/23/24 08:09 Temperature 99.0 F Pulse Rate 92 Respiratory Rate 20 Blood Pressure 159/56 H Pulse Oximetry 97 Oxygen Delivery Method Room Air BMI result Body Mass Index 27.0 Labs 11/05/24 07:31 11/05/24 07:31 Medications Medications Current Medications Acetaminophen (Acetaminophen 325 Mg Tablet) 650 mg PO Q6H PRN PRN Reason: Headache/Pain, Scale 1-10 Al Hydroxide/Mg Hydroxide (Magnesium Hydrox/Alum Hydrox 30 Ml Oral.Susp) 30 ml PO Q6H PRN PRN Reason: Heartburn/Nausea Clomipramine HCl (Clomipramine Hcl 25 Mg Capsule) 25 mg PO BEDTIME [facility] Last Admin: 11/22/24 21:14 Dose: 25 mg Diazepam (Diazepam 2 Mg Tablet) 1 mg PO BID [facility] Last Admin: 11/23/24 08:14 Dose: 1 mg Famotidine (Famotidine 20 Mg Tablet) 20 mg PO DAILY [facility] Last Admin: 11/23/24 08:12 Dose: 20 mg Magnesium Hydroxide (Milk Of Magnesia 30 Ml Oral.Susp) 30 ml PO DAILY PRN PRN Reason: Constipation Midodrine (Midodrine Hcl 5 Mg Tablet) 5 mg PO TID@0900,1500,1800 [facility] Last Admin: 11/23/24 08:15 Dose: Not Given Olanzapine (Olanzapine 2.5 Mg Tablet) 2.5 mg PO TID [facility] Last Admin: 11/23/24 08:13 Dose: 2.5 mg Omeprazole (Omeprazole 20 Mg Capsule.) 20 mg PO DAILY@0630 [facility] Last Admin: 11/23/24 05:58 Dose: 20 mg Sertraline HCl (Sertraline Hcl 100 Mg Tablet) 200 mg PO DAILY [facility] Last Admin: 11/23/24 08:13 Dose: 200 mg Zolpidem Tartrate (Zolpidem Tartrate 5 Mg Tablet) 5 mg PO BEDTIME PRN PRN Reason: Insomnia Last Admin: 11/22/24 21:14 Dose: 5 mg Allergies Allergies Allergy/AdvReac Type Severity Reaction Status Date / Time ciprofloxacin (From CIPRO) Allergy Unknown DIARRHEA Verified 09/30/24 10:57 Morpholine Analogues Allergy Unknown Unknown Verified 09/30/24 10:57 amoxicillin Allergy Nausea Verified 09/30/24 10:57 meperidine Allergy Unknown Verified 09/30/24 10:57 pollen extracts Allergy Unknown Verified 09/30/24 10:57 Assessment & Plan Assessment & Plan (1) MDD (major depressive disorder), recurrent episode, moderate: Status: Acute Code(s): F33.1 - Major depressive disorder, recurrent, moderate (2) Dependent personality disorder: Status: Acute Code(s): F60.7 - Dependent personality disorder (3) Orthostatic hypotension: Status: Acute Code(s): I95.1 - Orthostatic hypotension (4) Generalized anxiety disorder with panic attacks: Status: Acute Code(s): F41.1 - Generalized anxiety disorder; F41.0 - Panic disorder [episodic paroxysmal anxiety] Plan Mr. Smith is a 74 year-old trans female to male who self presented to [facility] reporting increased depression, suicidal ideation with plan to drown self in bathtub. He reports feelings of abandonment, helplessness, hopelessness, needing care from other. He reports this is in setting of his psychotherapist retiring in April. Unclear if this is the case. He also reports he was at [facility] for last 3 months. Will obtain records from [facility]. Pt signed NADYA. We discussed risks, benefits and alternative treatment options. continue current medications. PLAN 11/04 continue to present with ortho HOTN, SBP dropping when standing by 20 points, this despite lowering olanzapine from 5mg po TID to 2.5mg po TID and lowering anafranil to 50mg po qhs. Pt has been drinking more fluids. May need IV fluids, although pt hesitant to receive fluids. 11/05 continue tx. 11/06 continue tx. 11/07 d/c anafranil. increase sertraline to 100mg po daily, continue olanzapine 2.5mg po TID. 11/08 continue tx. continue to monitor BP, ortho VS. may need to adjust midodrine of BP improves with discontinuation of anafranil and decreased dose of olanzapine. 11/10: Decrease midodrine dosing to 5 mg bid 0900, 1800 11/11 continue current medications. 11/12 continue tx. 11/13 continue tx 11/14 continue tx 11/15 continue tx 11/16 continue tx. 11/17 increase sertraline to 100mg po daily. 11/18 continue tx 11/19 continue tx. 11/20: anxious about discharging next . stable. continue current mgmt. 11/21 continue tx. will add low dose anafranil, which he seemed to do better with but d/c due to ortho hotn. 11/22: anxious. stable. continue current mgmt. 11/23: showered yesterday, ambulating the [place] today. anxious. continue current mgmt. Reason for continued inpatient stay Substantial Risk for: inability to function Time Spent With Patient Time: Total time managing care of this patient today ____ minutes.
[2024-11-23 15:15] VITALS: BP 114/70; PULSE 77; RESP 20; TEMP 37.2; O2SAT 97
[2024-11-23 18:01] VITALS: BP 111/56; PULSE 66; RESP 16; O2SAT 95
[2024-11-23 20:00] VITALS: BP 139/75; PULSE 87; RESP 18; TEMP 36.3; O2SAT 92
[2024-11-24 08:30] VITALS: BP 100/68; PULSE 96; RESP 16; TEMP 37.1; O2SAT 97
--- NOTE | 2024-11-24 10:08 | HO.PSYCHPN ---
Subjective Subjective Date of Service: 11/24/24 Reason For Visit: si Interim History: in bed. appears stricken with anxiety, c/o derealization. planning to go outside for 15 minutes today. later seen walking in the [place]. per staff, has been meeting behavioral targets daily. Mental Status Exam Mental Status Exam Narrative: Appearance: marginal hygiene, appears anxious Behavior:cooperative. psychomotor:no agitation or retardation noted Speech:clear, normal rate/rhythm/volume, spontaneous Thought process:linear Thought content:no signs of psychosis, anxious; derealization Mood: anxious Affect: constricted, hyper-intense, non-labile SI: none expressed HI: none expressed VH/AH: none expressed Delusions: none expressed Insight/judgment:fair x 2. Memory/cog: alert, oriented x3. Diagnostics Vital Signs (24Hr): Vital Signs - 24 hr 11/23/24 15:15 11/23/24 18:01 11/23/24 20:00 Temperature 99.0 F 97.3 F Pulse Rate 77 66 87 Respiratory Rate 20 16 18 Blood Pressure 114/70 111/56 L 139/75 Pulse Oximetry 97 95 92 Oxygen Delivery Method Room Air Room Air Room Air 11/24/24 08:30 Temperature 98.8 F Pulse Rate 96 Respiratory Rate 16 Blood Pressure 100/68 Pulse Oximetry 97 Oxygen Delivery Method Room Air BMI result Body Mass Index 27.0 Labs 11/05/24 07:31 11/05/24 07:31 Medications Medications Current Medications Acetaminophen (Acetaminophen 325 Mg Tablet) 650 mg PO Q6H PRN PRN Reason: Headache/Pain, Scale 1-10 Al Hydroxide/Mg Hydroxide (Magnesium Hydrox/Alum Hydrox 30 Ml Oral.Susp) 30 ml PO Q6H PRN PRN Reason: Heartburn/Nausea Clomipramine HCl (Clomipramine Hcl 25 Mg Capsule) 25 mg PO BEDTIME [facility] Last Admin: 11/23/24 20:12 Dose: 25 mg Diazepam (Diazepam 2 Mg Tablet) 1 mg PO BID [facility] Last Admin: 11/24/24 08:33 Dose: 1 mg Famotidine (Famotidine 20 Mg Tablet) 20 mg PO DAILY [facility] Last Admin: 11/24/24 08:32 Dose: 20 mg Magnesium Hydroxide (Milk Of Magnesia 30 Ml Oral.Susp) 30 ml PO DAILY PRN PRN Reason: Constipation Midodrine (Midodrine Hcl 5 Mg Tablet) 5 mg PO TID@0900,1500,1800 [facility] Last Admin: 11/24/24 08:41 Dose: 5 mg Olanzapine (Olanzapine 2.5 Mg Tablet) 2.5 mg PO TID [facility] Last Admin: 11/24/24 08:33 Dose: 2.5 mg Omeprazole (Omeprazole 20 Mg Capsule.) 20 mg PO DAILY@0630 [facility] Last Admin: 11/24/24 05:57 Dose: 20 mg Sertraline HCl (Sertraline Hcl 100 Mg Tablet) 200 mg PO DAILY [facility] Last Admin: 11/24/24 08:33 Dose: 200 mg Zolpidem Tartrate (Zolpidem Tartrate 5 Mg Tablet) 5 mg PO BEDTIME PRN PRN Reason: Insomnia Last Admin: 11/23/24 20:11 Dose: 5 mg Allergies Allergies Allergy/AdvReac Type Severity Reaction Status Date / Time ciprofloxacin (From CIPRO) Allergy Unknown DIARRHEA Verified 09/30/24 10:57 Morpholine Analogues Allergy Unknown Unknown Verified 09/30/24 10:57 amoxicillin Allergy Nausea Verified 09/30/24 10:57 meperidine Allergy Unknown Verified 09/30/24 10:57 pollen extracts Allergy Unknown Verified 09/30/24 10:57 Assessment & Plan Assessment & Plan (1) MDD (major depressive disorder), recurrent episode, moderate: Status: Acute Code(s): F33.1 - Major depressive disorder, recurrent, moderate (2) Dependent personality disorder: Status: Acute Code(s): F60.7 - Dependent personality disorder (3) Orthostatic hypotension: Status: Acute Code(s): I95.1 - Orthostatic hypotension (4) Generalized anxiety disorder with panic attacks: Status: Acute Code(s): F41.1 - Generalized anxiety disorder; F41.0 - Panic disorder [episodic paroxysmal anxiety] Plan Mr. Smith is a 74 year-old trans female to male who self presented to [facility] reporting increased depression, suicidal ideation with plan to drown self in bathtub. He reports feelings of abandonment, helplessness, hopelessness, needing care from other. He reports this is in setting of his psychotherapist retiring in April. Unclear if this is the case. He also reports he was at [facility] for last 3 months. Will obtain records from [facility]. Pt signed NADYA. We discussed risks, benefits and alternative treatment options. continue current medications. PLAN 6/16 continue to present with ortho HOTN, SBP dropping when standing by 20 points, this despite lowering olanzapine from 5mg po TID to 2.5mg po TID and lowering anafranil to 50mg po qhs. Pt has been drinking more fluids. May need IV fluids, although pt hesitant to receive fluids. 11/05 continue tx. 11/06 continue tx. 11/07 d/c anafranil. increase sertraline to 100mg po daily, continue olanzapine 2.5mg po TID. 11/08 continue tx. continue to monitor BP, ortho VS. may need to adjust midodrine of BP improves with discontinuation of anafranil and decreased dose of olanzapine. 11/10: Decrease midodrine dosing to 5 mg bid 0900, 1800 11/11 continue current medications. 11/12 continue tx. 11/13 continue tx 11/14 continue tx 11/15 continue tx 11/16 continue tx. 11/17 increase sertraline to 100mg po daily. 11/18 continue tx 11/19 continue tx. 11/20: anxious about discharging next . stable. continue current mgmt. 11/21 continue tx. will add low dose anafranil, which he seemed to do better with but d/c due to ortho hotn. 11/22: anxious. stable. continue current mgmt. 11/23: showered yesterday, ambulating the franks today. anxious. continue current mgmt. 11/24: c/o derealization. ambulating the franks, planning to go outside today. continnue current mgmt. Reason for continued inpatient stay Substantial Risk for: inability to function and rapid decompensation Time Spent With Patient Time: Total time managing care of this patient today ____ minutes.
[2024-11-24 14:46] VITALS: BP 110/84
[2024-11-24 18:21] VITALS: BP 110/82
[2024-11-24 20:00] VITALS: BP 100/54; PULSE 55; RESP 16; TEMP 36.5; O2SAT 93
[2024-11-25 07:55] VITALS: BP 136/62; PULSE 71; RESP 18; TEMP 36.4; O2SAT 94
--- NOTE | 2024-11-25 11:37 | P.PNPSI_ITS ---
Subjective Subjective Date of Service: 11/25/24 Reason For Visit: si Interim History: anxious. c/o derealization. encouraged to shower, walk the halls, get time outside. per staff, dep 8 and 10. ate 100% for the most part. taking meds, slept 8 hours. D/C . Mental Status Exam Mental Status Exam Narrative: Appearance: marginal hygiene, appears anxious Behavior: cooperative. psychomotor: tremulousness Speech: clear, normal rate/rhythm/volume, spontaneous Thought process: linear Thought content: no signs of psychosis, anxious; derealization Mood: anxious Affect: constricted, hyper-intense, non-labile SI: none expressed HI: none expressed VH/AH: none expressed Delusions: none expressed Insight/judgment:fair x 2. Memory/cog: alert, oriented x3. Diagnostics Vital Signs (24Hr): Vital Signs - 24 hr 11/24/24 14:46 11/24/24 18:21 11/24/24 20:00 Temperature 97.7 F Pulse Rate 55 Respiratory Rate 16 Blood Pressure 110/84 110/82 100/54 L Pulse Oximetry 93 Oxygen Delivery Method Room Air 11/25/24 07:55 Temperature 97.6 F Pulse Rate 71 Respiratory Rate 18 Blood Pressure 136/62 Pulse Oximetry 94 Oxygen Delivery Method Room Air BMI result Body Mass Index 27.0 Labs 11/05/24 07:31 11/05/24 07:31 Medications Medications Current Medications Acetaminophen (Acetaminophen 325 Mg Tablet) 650 mg PO Q6H PRN PRN Reason: Headache/Pain, Scale 1-10 Al Hydroxide/Mg Hydroxide (Magnesium Hydrox/Alum Hydrox 30 Ml Oral.Susp) 30 ml PO Q6H PRN PRN Reason: Heartburn/Nausea Clomipramine HCl (Clomipramine Hcl 25 Mg Capsule) 25 mg PO BEDTIME [facility] Last Admin: 11/24/24 20:01 Dose: 25 mg Diazepam (Diazepam 2 Mg Tablet) 1 mg PO BID [facility] Last Admin: 11/25/24 08:18 Dose: 1 mg Famotidine (Famotidine 20 Mg Tablet) 20 mg PO DAILY [facility] Last Admin: 11/25/24 08:18 Dose: 20 mg Magnesium Hydroxide (Milk Of Magnesia 30 Ml Oral.Susp) 30 ml PO DAILY PRN PRN Reason: Constipation Midodrine (Midodrine Hcl 5 Mg Tablet) 5 mg PO TID@0900,1500,1800 [facility] Last Admin: 11/25/24 08:19 Dose: Not Given Olanzapine (Olanzapine 2.5 Mg Tablet) 2.5 mg PO TID [facility] Last Admin: 11/25/24 08:18 Dose: 2.5 mg Omeprazole (Omeprazole 20 Mg Capsule.Dr) 20 mg PO DAILY@0630 [facility] Last Admin: 11/25/24 06:02 Dose: 20 mg Sertraline HCl (Sertraline Hcl 100 Mg Tablet) 200 mg PO DAILY [facility] Last Admin: 11/25/24 10:24 Dose: 200 mg Zolpidem Tartrate (Zolpidem Tartrate 5 Mg Tablet) 5 mg PO BEDTIME PRN PRN Reason: Insomnia Last Admin: 11/24/24 20:01 Dose: 5 mg Allergies Allergies Allergy/AdvReac Type Severity Reaction Status Date / Time ciprofloxacin (From CIPRO) Allergy Unknown DIARRHEA Verified 09/30/24 10:57 Morpholine Analogues Allergy Unknown Unknown Verified 09/30/24 10:57 amoxicillin Allergy Nausea Verified 09/30/24 10:57 meperidine Allergy Unknown Verified 09/30/24 10:57 pollen extracts Allergy Unknown Verified 09/30/24 10:57 Assessment & Plan Assessment & Plan (1) MDD (major depressive disorder), recurrent episode, moderate: Status: Acute Code(s): F33.1 - Major depressive disorder, recurrent, moderate (2) Dependent personality disorder: Status: Acute Code(s): F60.7 - Dependent personality disorder (3) Orthostatic hypotension: Status: Acute Code(s): I95.1 - Orthostatic hypotension (4) Generalized anxiety disorder with panic attacks: Status: Acute Code(s): F41.1 - Generalized anxiety disorder; F41.0 - Panic disorder [episodic paroxysmal anxiety] Plan Mr. Smith is a 74 year-old trans female to male who self presented to [facility] reporting increased depression, suicidal ideation with plan to drown self in bathtub. He reports feelings of abandonment, helplessness, hopelessness, needing care from other. He reports this is in setting of his psychotherapist retiring in April. Unclear if this is the case. He also reports he was at [facility] for last 3 months. Will obtain records from [facility]. Pt signed NADYA. We discussed risks, benefits and alternative treatment options. continue current medications. PLAN 11/04 continue to present with ortho HOTN, SBP dropping when standing by 20 points, this despite lowering olanzapine from 5mg po TID to 2.5mg po TID and lowering anafranil to 50mg po qhs. Pt has been drinking more fluids. May need IV fluids, although pt hesitant to receive fluids. 11/05 continue tx. 11/06 continue tx. 11/07 d/c anafranil. increase sertraline to 100mg po daily, continue olanzapine 2.5mg po TID. 11/08 continue tx. continue to monitor BP, ortho VS. may need to adjust midodrine of BP improves with discontinuation of anafranil and decreased dose of olanzapine. 11/10: Decrease midodrine dosing to 5 mg bid 0900, 1800 11/11 continue current medications. 11/12 continue tx. 11/13 continue tx 11/14 continue tx 11/15 continue tx 11/16 continue tx. 11/17 increase sertraline to 100mg po daily. 11/18 continue tx 11/19 continue tx. 11/20: anxious about discharging next . stable. continue current mgmt. 11/21 continue tx. will add low dose anafranil, which he seemed to do better with but d/c due to ortho hotn. 11/22: anxious. stable. continue current mgmt. 11/23: showered yesterday, ambulating the franks today. anxious. continue current mgmt. 11/24: c/o derealization. ambulating the franks, planning to go outside today. continnue current mgmt. 11/25: tremulous, c/o derealization. severe anxiety, exacerbated by discharge date. continue current mgmt. encouraged pt in behavioral activation and exposure therapy. Reason for continued inpatient stay Substantial Risk for: inability to function and rapid decompensation Time Spent With Patient Time: Total time managing care of this patient today ____ minutes.
[2024-11-25 17:26] VITALS: BP 106/58
[2024-11-25 20:21] VITALS: BP 128/63; PULSE 65; RESP 16; TEMP 36.1; O2SAT 96
[2024-11-26 08:12] VITALS: BP 119/75; PULSE 74; RESP 18; TEMP 36.3; O2SAT 95
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
[2024-11-26 14:31] VITALS: BP 114/68; PULSE 79
[2024-11-26 17:38] VITALS: BP 108/53; PULSE 65
[2024-11-26 19:44] VITALS: BP 118/49; PULSE 64; RESP 16; TEMP 36.5; O2SAT 97
[2024-11-27 08:04] VITALS: BP 138/66; PULSE 98; RESP 14; TEMP 36.3; O2SAT 96
== END 2024-11-27 11:00 | disposition home or self-care (01) | DRG 885 ==
LOC: HO.ED 14:51 → HO.PGERI 10-01 12:19
PROVIDERS: Nurse Practitioner Family; Physician Assistant; Admitting Provider Social Worker; Emergency Provider Emergency Medicine Emergency Medical Services; PCP Internal Medicine; Visit Provider Social Worker
DX: F33.2 Major depressive disorder, recurrent severe without psychotic features (principal); R45.851 Suicidal ideations; F64.0 Transsexualism; I95.1 Orthostatic hypotension; F60.7 Dependent personality disorder; F41.1 Generalized anxiety disorder; Z20.822 Contact with and (suspected) exposure to COVID-19; Z79.899 Other long term (current) drug therapy
CPT/HCPCS: 36415; 80048; 80053; 80061; 80076; 80307; 81001; 81003; 82607; 82728; 82746; 82947; 83036; 83540; 83735; 84443; 85025; 87633; 93005; 99285; S9485

== ENCOUNTER → 2024-09-30 14:57 | Outpatient (BNV) | payer MEDICARE, SELFPAY | PROVIDERS: Emergency Provider Emergency Medicine Emergency Medical Services; PCP Internal Medicine; Visit Provider Internal Medicine Cardiovascular Disease | DX: R94.31 Abnormal electrocardiogram [ECG] [EKG] (principal); R45.851 Suicidal ideations | CPT/HCPCS: 93010 ==

== ENCOUNTER 2024-10-01 12:13 | Outpatient (BNV) | payer MEDICARE, SELFPAY | END 2024-11-04 15:44 | PROVIDERS: Admitting Provider Social Worker; Emergency Provider Emergency Medicine Emergency Medical Services; PCP Internal Medicine; Visit Provider Internal Medicine Cardiovascular Disease | DX: Z13.6 Encounter for screening for cardiovascular disorders (principal) | CPT/HCPCS: 93010 ==

== ENCOUNTER → 2024-10-01 12:13 | Outpatient (BNV) | payer MEDICARE, SELFPAY | PROVIDERS: Admitting Provider Social Worker; Emergency Provider Emergency Medicine Emergency Medical Services; PCP Internal Medicine; Visit Provider Psychiatry & Neurology Psychiatry | DX: F33.2 Major depressive disorder, recurrent severe without psychotic features (principal); F60.9 Personality disorder, unspecified; F41.1 Generalized anxiety disorder; F41.0 Panic disorder [episodic paroxysmal anxiety] | CPT/HCPCS: 90792; 99231; 99232 ==

== ENCOUNTER → 2024-10-01 12:13 | Outpatient (BNV) | payer MEDICARE, SELFPAY | PROVIDERS: Admitting Provider Social Worker; Emergency Provider Emergency Medicine Emergency Medical Services; PCP Internal Medicine; Visit Provider Nurse Practitioner Family | DX: Z00.8 Encounter for other general examination (principal) | CPT/HCPCS: 99429 ==

== ENCOUNTER 2024-12-13 11:18 | Emergency (ER) | payer MEDICARE, SELFPAY ==
--- NOTE | ~2024-12-13 | XR_ITS ---
EXAMINATION: XR CHEST CLINICAL INFORMATION: cough COMPARISON: None available. TECHNIQUE: 2 views of the chest were obtained. FINDINGS: Linear scar atelectasis is present in the left midlung zone extending from the AP window. There is a nodular density along the lateral aspect of the right hemidiaphragm. It measures approximately 10 x 17 mm. Lungs are clear otherwise. Moderate multilevel degenerative changes are present in the thoracic spine. XR/XR chest 2V IMPRESSION: A 10 x 17 mm nodular density in the right costophrenic angle could be summation artifact from overlapping ribs, and hemidiaphragm. However, pulmonary nodules are without. Consider right anterior and posterior oblique views to redemonstrate the area. Linear atelectasis or scarring radiates out from the left hilum. Electronically signed by: Jai Brewster MD 12/13/2024 05:18 PM EDT RP
[2024-12-13 11:49] VITALS: BP 112/74; BP 114/72; PULSE 102; PULSE 96; RESP 22; TEMP 36.2; O2SAT 97; O2SAT 98; BMI 27.5
--- NOTE | 2024-12-13 12:45 | ECG_ITS ---
Test Reason : MED CLEARANCE Blood Pressure : */* mmHG Vent. Rate : 55 BPM Atrial Rate : 55 BPM P-R Int : 164 ms QRS Dur : 76 ms QT Int : 442 ms P-R-T Axes : 57 35 77 degrees QTcB Int : 422 ms Sinus bradycardia Nonspecific T wave abnormality Abnormal ECG When compared with ECG of 04-Nov-2024 15:44, No significant change was found Referred By: Ad Navarro Electronically Signed By: Jl Padilla
--- NOTE | 2024-12-13 12:45 | ED.PSYCH ---
HPI - Psych General Chief Complaint: Psychiatric Symptoms Stated Complaint: Crisis Time Seen by Provider: 12/13/24 12:08 Source: patient and EMS Mode of arrival: EMS Limitations: no limitations History of Present Illness ED Provider: HPI Narrative: 74-year-old male presenting from home for increased anxiety and depression, he had states there was an SI plan to strangle himself , he has a extremely anxious affect, he states he is not able to take care of himself at home, denies ETOH or any drug use, he also mentioned that he fell about a week ago and landed on his knees but there was no LOC, he is not on blood thinners, no headaches, unrelated the in triage she also reported increased shortness of breath while ambulating for the past 1 week, but he did not mention this to me during our meeting. He was eating, he was able to drink as well, and he is ambulatory. Related Data Previous Rx's ?Medication ?Instructions ?Recorded famotidine 20 mg tablet 20 mg PO DAILY 30 days #30 tabs 11/26/24 midodrine 5 mg tablet 5 mg PO TID@0900,1500,1800 30 days 11/26/24 #90 tabs omeprazole 20 mg capsule,delayed 20 mg PO DAILY@0630 30 days #30 11/26/24 release caps sertraline 100 mg tablet 200 mg (2 x 100 mg) PO DAILY 30 11/26/24 days #60 tabs zolpidem 5 mg tablet 5 mg PO BEDTIME PRN Sleep 30 days 11/26/24 #30 tabs clomipramine 25 mg capsule 25 mg PO BEDTIME #30 caps 12/24/24 famotidine 20 mg tablet (Pepcid) 20 mg PO DAILY abdominal 12/24/24 discomfort #30 tabs midodrine 5 mg tablet 5 mg PO TID #90 tabs 12/24/24 olanzapine 5 mg tablet 5 mg PO BID #60 tabs 12/24/24 omeprazole 20 mg capsule,delayed 20 mg PO DAILY #30 caps 12/24/24 release sertraline 100 mg tablet 200 mg (2 x 100 mg) PO DAILY #60 12/24/24 tabs zolpidem 5 mg tablet (Ambien) 5 mg PO BEDTIME PRN insomnia #20 12/24/24 tabs Allergies Allergy/AdvReac Type Severity Reaction Status Date / Time ciprofloxacin (From CIPRO) Allergy Unknown DIARRHEA Verified 12/13/24 11:54 Morpholine Analogues Allergy Unknown Unknown Verified 12/13/24 11:54 amoxicillin Allergy Nausea Verified 12/13/24 11:54 meperidine Allergy Unknown Verified 12/13/24 11:54 pollen extracts Allergy Unknown Verified 12/13/24 11:54 Review of Systems Constitutional: Constitutional: Reports as per [facility] Past Medical History Medical History Orthostatic hypotension Personality disorder Depression, major, severe recurrence Transgender Hard of hearing Tracheal stenosis Family History Family History Father Heart disease Social History Social History Household Members: None Housing: House Do you presently have visiting nurse or other home services: No Alcohol intake: never Comment: Patient ambulates independently w/o assistive devices Patient Tobacco Use Status: Never used Tobacco Tobacco use type: Cigarette Years Smoked: 10 e-Cigarette/Vaping Use: Never Used Second Hand Smoke Exposure: No service: No Sexual orientation: Straight/Heterosexual Physical Exam Vital Signs: Vital Signs: Last Vital Signs Temp 98.9 F 12/24/24 16:08 Pulse 101 H 12/24/24 16:08 Resp 16 12/24/24 16:08 BP 146/63 H 12/24/24 16:08 Pulse Ox 96 12/24/24 16:08 O2 Del Method Room Air 12/24/24 16:08 BMI result Body Mass Index 27.5 Const: Other: The patient is ambulatory No facial trauma no head trauma S1-S2 RRR No wheezing no rales no rhonchi Generally abdominal exam is benign No lower extremity edema He is alert to self and location, it is difficult to interact with him due to extremely anxious affect. Course Course Course Narrative: Time: 08:33 Date: 12/14/24 Provider: Jennifer Mcdermott, DO Patient in physician observation for psychiatric evaluation.? No acute events reported overnight. No current complaints. VS stable.? Patient is in bed search status. Will continue to monitor. Reevaluation(s) Reevaluation #1: Time: 07:35 Date: 12/15/24 Provider: Jennifer Mcdermott DO Patient in physician observation for psychiatric evaluation.? No acute events reported overnight. No current complaints. VS stable.? Patient is in bed search status. Will continue to monitor. Reevaluation #2: Time: 17:07 Date: 12/17/24 Provider: Juanito Silver MD Patient in physician observation for psychiatric evaluation and for case management input. The patient is a 74-year-old male with a history of complaints of suicidality but who has had multiple [facility] psych admissions without clear benefit. He presented again today for this emergency room visit with complaints of anxiety and suicidal ideation. I believe he has felt to not have capacity to make his own medical decisions. At this point it is not clear whether disposition will be determined by the care team or case management.? No acute events reported overnight. He complained of some anxiety today and was given p.r.n. olanzapine. Otherwise the patient seemed stable. VS stable.? Ultimate recommendations for disposition are not clear at this point, still awaiting case management input and recommendations. Will continue to monitor. Time: 17:09 Reevaluation #3: Time: 06:01 Date: 12/19/24 Provider: Lyndon Anderson MD Patient in physician observation for psychiatric evaluation and case management evaluation.? Patient has been in the emergency department 138 hours. No acute events reported overnight. No current complaints. VS stable.? Patient is in bed search status pending case management evaluation for possible placement. We will continue to monitor Additional Reevaluation(s): Time: 06:14 Date: 12/20/24 Provider: Lyndon Anderson MD Patient in physician observation for psychiatric and case management evaluation. Patient has been in the emergency department for about 162 hours. Patient was evaluated by case management yesterday with expected discharge on 12/23/2024 . Case management arranged follow-up with PCP Physician Education And Outreach Coordinator Angelia Montoya on 01/14/2025. Case management is also working on psychiatric follow-up as an outpatient. ? No acute events reported overnight. No current complaints. VS stable.? Will continue to monitor. Time: 07:45 Date: 12/21/24 Provider: Eun Montelongo MD Patient in physician observation for psychiatric evaluation.? No acute events reported overnight. No current complaints. VS stable.? Patient is in bed search status/pending CARE team evaluation. Will continue to monitor. Time: 11:21 Date: 12/22/24 Provider: Eun Montelongo MD Patient in physician observation for psychiatric evaluation.? No acute events reported overnight. No current complaints. VS stable.? Patient is in bed search status/pending CARE team evaluation. Will continue to monitor. Time: 07:33 Date: 12/23/24 Provider: Eun Montelongo MD Patient in physician observation for psychiatric evaluation.? No acute events reported overnight. No current complaints. VS stable.? Patient is in bed search status/pending CARE team evaluation. Will continue to monitor. time 4 : 26 pm Patient is seen by care team. Currently not suicidal homicidal. Feel comfortable with sending patient home. I talked to him. Patient wants to go home. In stable condition. Case management also evaluated the patient. I want to make sure patient get his medication after discharge. Will making sure patient has the correct scripts sent to Time: 13:04 Date: 12/24/24 Provider: Jennifer Mcdermott DO Physician observation ended at 104pm. Patient has been cleared for discharge by the CARE team. Will follow up as an outpatient. Medications Administered Discontinued Medications Generic Name Dose Route Start Last Admin Trade Name Freq PRN Reason Stop Dose Admin Al Hydroxide/Mg Hydroxide 30 ml 12/20/24 10:49 12/23/24 08:49 Magnesium Hydrox/Alum Hydrox 30 Ml Oral.Susp PO 30 ml QID PRN Administration Dyspepsia stomach pain Clomipramine HCl 25 mg 12/13/24 21:00 12/23/24 21:00 Clomipramine Hcl 25 Mg Capsule PO 25 mg BEDTIME SAL Administration Diazepam 1 mg 12/13/24 21:00 12/23/24 08:52 Diazepam 2 Mg Tablet PO 1 mg BID SAL Administration Diazepam 1 mg 12/23/24 21:00 12/24/24 08:44 Diazepam 2 Mg Tablet PO 1 mg BID SAL Administration Famotidine 20 mg 12/13/24 20:45 12/24/24 08:45 Famotidine 20 Mg Tablet PO 20 mg DAILY SAL Administration Lorazepam 1 mg 12/13/24 17:02 12/13/24 17:52 Lorazepam 1 Mg Tablet PO 12/13/24 22:00 1 mg ONCE PRN Administration Anxiety Lorazepam 0.5 mg 12/13/24 20:30 12/18/24 08:19 Lorazepam 0.5 Mg Tablet PO 0.5 mg TID PRN Administration Anxiety Lorazepam 1 mg 12/18/24 17:16 12/18/24 17:20 Lorazepam 1 Mg Tablet PO 12/18/24 17:17 1 mg ONCE ONE Administration Lorazepam 0.5 mg 12/19/24 09:22 12/24/24 08:44 Lorazepam 0.5 Mg Tablet PO 0.5 mg Q6H PRN Administration Anxiety, agitation Lorazepam 0.5 mg 12/24/24 15:00 12/24/24 14:44 Lorazepam 0.5 Mg Tablet PO 0.5 mg TID SAL Administration Midodrine 5 mg 12/14/24 09:00 12/24/24 14:47 Midodrine Hcl 5 Mg Tablet PO Not Given TID@0900,1500,1800 SAL Olanzapine 5 mg 12/13/24 12:47 12/13/24 12:56 Olanzapine 5 Mg Tablet PO 12/13/24 12:48 5 mg ONCE ONE Administration Olanzapine 2.5 mg 12/13/24 21:00 12/24/24 09:07 Olanzapine 2.5 Mg Tablet PO 2.5 mg TID SAL Administration Olanzapine 5 mg 12/17/24 11:51 12/17/24 12:00 Olanzapine 5 Mg Tablet PO 12/17/24 11:52 5 mg ONCE ONE Administration Omeprazole 20 mg 12/14/24 06:30 12/24/24 05:56 Omeprazole 20 Mg Capsule.Dr PO 20 mg DAILY@0630 SAL Administration Sertraline HCl 200 mg 12/13/24 20:45 12/24/24 08:44 Sertraline Hcl 100 Mg Tablet PO 200 mg DAILY SAL Administration Zolpidem Tartrate 5 mg 12/13/24 20:30 12/21/24 20:54 Zolpidem Tartrate 5 Mg Tablet PO 5 mg BEDTIME PRN Administration Sleep Zolpidem Tartrate 5 mg 12/23/24 20:36 12/23/24 21:00 Zolpidem Tartrate 5 Mg Tablet PO 12/23/24 20:37 5 mg ONCE ONE Administration Medical Decision Making Medical Decision Making MDM Narrative: Information was obtained from patient but also EMS, patient's history can be somewhat limited just due to how anxious he is, there was no evidence of any strangulation frost or trauma, does not appear to be in fluid overload, we will medicate for anxiety, he is ambulatory he is otherwise looking well he is not hypoxic nonfebrile, but he did endorse cough to EMS and that was reported to me via nursing I will look into that as well but otherwise I have very low suspicion that there is underlying medical conditions contributing to his presentation to the emergency department. Patient is seen by care team. Currently not suicidal homicidal. Feel comfortable with sending patient home. I talked to him. Patient wants to go home. In stable condition. Case management also evaluated the patient. I want to make sure patient get his medication after discharge. Will making sure patient has the correct scripts sent to the pharmacy prior to discharge. Differential Diagnosis Differential Diagnoses: The differential diagnosis associated with the presentation includes (SI, HI, schizophrenia, anxiety disorder, trauma, COPD, CHF, pneumonia, UTI) Admission/Observation Consideration of admission/observation: Escalation of care including admission/observation considered 2022 Emergency Medicine Coding Guide from [employer] on 12/13/2024 All calculations should be rechecked by clinician prior to use RESULT SUMMARY: 4 Estimated Level of Service Problems: Moderate (4) Risk: Moderate (4) Data: Extensive (5) NARRATIVE MDM: This patient's problem complexity is Moderate as patient: with chronic illness(es) with exacerbation/progression/side effects of treatment. This patient's risk is Moderate due to: overall presentation requiring evaluation for a potentially Moderate-risk process. This patient's data complexity is Extensive due to: -multiple tests ordered/reviewed -independent historian used to support history -independent interpretation of imaging or EKG INPUTS: Number and Complexity ?> 3 = 4: chronic illness with exacerbation (c) Risk level ?> 3 = Moderate Tests ordered ?> 2 = 2 Tests results reviewed (excluding labs) ?> 2 = 2 Prior external notes reviewed ?> 0 = 0 Assessment requiring and independent historian ?> 1 = Yes Independent interpretation of tests ?> 1 = Yes Discussed management/test interpretation w/external professional ?> 0 = No Lab Data MDM Lab Attestation statement: I reviewed the patient's lab results. 12/13/24 15:11 12/13/24 15:11 Labs: Lab Results 12/13/24 12/13/24 Range/Units 15:11 17:22 WBC 10.2 (4.8-10.8) X10*3/uL RBC 3.81 L (4.60-5.80) X10*6/uL Hgb 11.1 L (14.0-18.0) g/dl Hct 33.5 L (42.0-52.0) % MCV 87.9 (80.0-98.0) fL MCH 29.1 (27.0-33.0) pg MCHC 33.1 (31.0-36.0) g/dl RDW 14.6 (11.0-16.0) % Plt Count 379 (160-400) X10*3/uL MPV 10.2 (9.4-12.4) fL Immature Gran % (Auto) 0.7 H (0.0-0.4) % Neut % (Auto) 73.6 H (45-73) % Lymph % (Auto) 13.4 L (20-40) % Putnam % (Auto) 11.3 H (2-11) % Eos % (Auto) 0.7 (0-4) % Baso % (Auto) 0.3 (0-2) % Lymph # (Auto) 1.4 (1.2-4.9) X10*3/uL Putnam # (Auto) 1.2 (0.1-1.2) X10*3/uL Eos # (Auto) 0.1 (0.0-0.4) X10*3/uL Baso # (Auto) 0.0 (0.0-0.2) X10*3/uL Abs Immat Gran (auto) 0.07 H (0.00-0.03) X10*3/uL Absolute Neuts (auto) 7.5 (2.0-8.3) x10*3/uL Absolute Nucleated RBC 0.000 (0.0-0.012) X10*3/uL Nucleated RBC % (auto) 0.0 (0.0-0.2) /100WBC Sodium 145 (135-145) mmol/L Potassium 4.0 (3.3-5.1) mmol/L Chloride 111 H (96-108) mmol/L Carbon Dioxide 25 (22-29) mmol/L Anion Gap 13 (12-20) BUN 18 H (9-16) mg/dL Creatinine 0.84 (0.5-1.4) mg/dL Estim Creat Clear Calc 66.9 Estimated GFR > 60 Random Glucose 91 (60-115) mg/dL Calcium 8.9 D (8.4-10.2) mg/dL Total Bilirubin 0.2 (0.0-1.0) mg/dL AST 73 H (5-37) U/L ALT 54 H (0-40) U/L Alkaline Phosphatase 110 (39-117) U/L Total Protein 5.8 L (6.5-8.0) g/dL Albumin 3.6 (3.5-5.0) g/dL Urine Color Yellow Urine Appearance Hazy Urine pH 7.0 (5.0-9.0) Ur Specific Morgan 1.010 (1.005-1.025) Urine Protein Trace (Neg-Trace) mg/dL Urine Glucose (UA) Negative (Negative) mg/dL Urine Ketones Negative (Negative) mg/dL Urine Blood Negative (Negative) Urine Nitrite Negative (Negative) Ur Leukocyte Esterase Moderate (2+) H (Negative) Urine RBC 0-2 (0-2) /HPF Urine WBC 0-5 (0-5) /HPF Ur Squamous Epith Cells 0-2 (0-2) /HPF Calcium Oxalate Crystal Present Urine Bacteria None Seen (None Seen) Hyaline Casts 0-2 (0-2) /LPF Salicylates < 5.0 L (15-30) mg/dL Urine Opiates Screen Not Detected (Not Detect) Ur Buprenorphine Scrn Not Detected (Not Detect) ng/mL Ur Oxycodone Screen Not Detected (Not Detect) ng/mL Urine Methadone Screen Not Detected (Not Detect) ng/mL Urine Fentanyl Screen Not Detected (Not Detect) Acetaminophen < 3 (<30) mcg/mL Ur Barbiturates Screen Not Detected (Not Detect) Ur Phencyclidine Scrn Not Detected (Not Detect) Ur Amphetamines Screen Not Detected (Not Detect) U Benzodiazepines Scrn POSITIVE H (Not Detect) Urine Cocaine Screen Not Detected (Not Detect) U Marijuana (THC) Screen Not Detected (Not Detect) Ethyl Alcohol < 10 mg/dL Radiology Impression Discussion of test interpretation with radiology: I have reviewed the radiologist's reading. ( XR/XR chest 2V IMPRESSION: A 10 x 17 mm nodular density in the right costophrenic angle could be summation artifact from overlapping ribs, and hemidiaphragm. However, pulmonary nodules are without. Consider right anterior and posterior oblique views to redemonstrate the area. ) Discharge Plan Discharge Clinical Impression: Dementia in other diseases classified elsewhere, unspecified severity, without behavioral disturbance, psychotic disturbance, mood disturbance, and anxiety, Major neurocognitive disorder due to another medical condition, Dependent personality disorder, Generalized anxiety disorder, Panic disorder [episodic paroxysmal anxiety], Unable to make decisions about medical treatment due to impaired mental capacity, Moderate episode of recurrent major depressive disorder Patient Disposition: Home, Self-Care Instructions: Anxiety (ED) Additional Instructions: You were seen in our Emergency Department today for treatment of a behavioral health issue. It is important after your visit that you follow up with either your behavioral health provider or a primary care doctor within 7 days.? If you have trouble finding a therapist you can reach out to [address] [phone] [facility] [place] [facility] can be reached 7 days a week 24 hours a day.? Call [phone] to speak with someone.? Return for any worsening symptoms or concerns such as thoughts of self harm or harm to others. Please call 911 if you feel your mental health is worsening.? Prescriptions: New clomipramine 25 mg capsule 25 mg PO BEDTIME Qty: 30 0RF sertraline 100 mg tablet 200 mg PO DAILY Qty: 60 0RF midodrine 5 mg tablet 5 mg PO TID Qty: 90 0RF Rx Instructions: do not give last dose of day after 6PM or within 4 hrs of bedtime famotidine [Pepcid] 20 mg tablet 20 mg PO DAILY Qty: 30 0RF omeprazole 20 mg capsule,delayed release(DR/EC) 20 mg PO DAILY Qty: 30 0RF zolpidem [Ambien] 5 mg tablet 5 mg PO BEDTIME PRN (Reason: insomnia) Qty: 20 0RF olanzapine 5 mg tablet 5 mg PO BID Qty: 60 0RF Discontinued olanzapine 5 mg tablet 2.5 mg PO TID 30 Days Qty: 45 0RF lorazepam [Ativan] 0.5 mg tablet 0.5 mg PO TID PRN (Reason: anxiety) 7 Days Qty: 21 0RF diazepam 2 mg tablet 1 mg PO BID clomipramine 25 mg Capsule 25 mg PO BEDTIME No Action midodrine 5 mg Tablet 5 mg PO TID@0900,1500,1800 30 Days Qty: 90 0RF sertraline 100 mg Tablet 200 mg PO DAILY 30 Days Qty: 60 0RF famotidine 20 mg Tablet 20 mg PO DAILY 30 Days Qty: 30 0RF omeprazole 20 mg Capsule,Delayed Release(Dr/Ec) 20 mg PO DAILY@0630 30 Days Qty: 30 0RF zolpidem 5 mg tablet 5 mg PO BEDTIME PRN (Reason: Sleep) 30 Days Qty: 30 0RF Referrals: Geovanna Davis APRN [Nurse Practitioner, Psychiatry] Scott Quiroz MD [Primary Care Provider, Internal Medicine] Interventions: [place]-Suicide Risk Severity Scale Last Done: 12/23/24 19:16 ED Discharge Assessment Last Done: 12/24/24 16:08 Discharge Date/Time: 12/24/24 16:11 Print Language: Kinyarwanda
--- OUTSIDE RECORDS SUMMARY | 2024-12-13 12:59 | XMS_ITS | Encounter Summary ---
Author Organization [employer] Address [address] [place] [address] Care Team Providers Care Recording Studio Intern Name Role Phone Unavailable Primary Care Provider Unavailabl e Encounter Details Date Type Department Care Team (Late st Contact Info) Description 07/30/2024 [facility] [address] [place] [address] Chaparrita Starr Social History Tobacco Use Types [...]
--- OUTSIDE RECORDS SUMMARY | 2024-12-13 12:59 | XMS_ITS | Encounter Summary ---
Author Organization [facility] Address [address] [place] [id number] Phone Care Team Providers Care Rotary Drum Tanner Name Role Phone Scott Quiroz MD Primary Care Provider [phone] Hernan Arzola MD Unavailable [email or web address] Hoang Mitchell MD Unavailable [phone] Austin Montoya MD Unavailable [phone] Hernan Arzola MD Unavailable [email or web address] Scott Quiroz MD Unavailable Gabriel Malik MD Unavailable [phone] Hernan Arzola MD Primary Care Provider [email or web address] Scott Quiroz MD Primary Care Provider [phone] Aaron Collins MD Unavailable Unknown, Unknown Primary Care Provider Mee Beyer Unavailable [phone] Pcp, Unknown Primary Care Provider Unavailabl e Encounter Details Date Type Department Care Team (Late st Contact Info) Description 09/30/2016 Procedure Pass [facility] [address] [place] [address] Social History Tobacco Use Types Packs/Day Years Used Date Smoking Tobacco: Former Cigarettes 1.5 10 0 05/22/1963 - 05/22/1973 Smokeless Tobacco: Never Alcohol Use Standard Drinks/Week Comments No 0 (1 standard drink = 0.6 oz pur e alcohol) Recovery Sober for 33 yrs Comments Unknown Sex and Gender Information Value [...] documented as of this encounter Care Teams Rotary Drum Tanner Relationship Specialty Start Date End Date Scott Quiroz MD [address] [place] [id number] [email or web address] PCP - General 11/19/13 04/09/17 Hernan Arzola MD [email or web address] PCP - General Rheumatology 04/10/17 10/23/17 Scott Quiroz MD [address] [address] [email or web address] PCP - General Internal Medicine 10/24/17 12/19/22 Unknown, Kandy, PCP - General 08/01/23 08/16/23 Pcp, Kandy PCP - General 09/19/23 07/24/24 Hernan Arzola MD [email or web address] Internal Medicine 10/02/15 10/20/20 Hoang Mitchell MD [address] [place] [address] [email or web address] [address] [email or web address] Provider Rheumatology 10/02/15 Austin Montoya MD [address] [address] [email or web address] Historical LMR Provider 03/06/17 05/29/21 Hernan Arzola MD [email or web address] Historical LMR Provider 03/06/17 10/20/20 Scott Quiroz MD [address] [place] [id number] [email or web address] Historical LMR Provider 03/06/17 10/20/20 Gabriel Malik MD [address] [address] Historical LMR Provider 03/06/17 2 Aaron Collins MD [address] [address] [email or web address] Primary Oncologist Hematology and Oncology 11/30/2208/23 Mee Badillo MBBS [email or web address] Primary Oncologist Medical Oncology 08/25/23 documented as of this encounter Additional Source Comments The information contained in this document represents components of the legal health record. It is not the complete legal health record.[facility]
--- OUTSIDE RECORDS SUMMARY | 2024-12-13 12:59 | XMS_ITS | Referral Summary ---
Author Organization [facility] Address [address] [place] [address] Care Team Providers Care Principal Investigator Name Role Phone Scott Quiroz Primary Care Provider [phone] Allergies Active Allergy Reactions Criticality Noted Date [...] day. 84 tablet 09/25/2024 12:09 PM EDT 09/25/2024 Active cholecalciferol (VITAMIN D3) 2,000 unit tablet Take 1 tablet (2,000 Units total) by mouth once a day. 14 tablet 09/26/2024 Active guaiFENesin (ROBITUSSIN) 100 mg/5 mL syrup Take 10 mL (200 mg total) by mouth every 4 hours as needed for cough. 120 mL 09/25/2024 Active melatonin 3 mg tablet Take 2 tablets (6 mg total) by mouth nightly as needed for sleep. 28 tablet 09/25/2024 Active vortioxetine (TRINTELLIX) 20 mg tablet Take 1 tablet (20 mg total) by mouth once a day. 14 tablet 09/25/2024 12:09 PM EDT 09/26/2024 Active zolpidem (AMBIEN) 5 mg tablet Take 1 tablet (5 mg total) by mouth nightly. 14 tablet 09/25/2024 12:09 PM EDT 09/25/2024 Active Active Problems Problem Noted Date Diagnosed [...] 96 09/25/2024 6:47 AM EDT Temperature 37.1 C (98.8 F) 09/25/2024 6:47 AM EDT Respiratory Rate 16 09/25/2024 6:47 AM EDT Oxygen Saturation 95% 09/25/2024 6:47 AM EDT Inhaled Oxygen Concentration - - Weight 75.5 kg (166 lb 6.4 oz) 07/18/2024 6:37 P M EST Height 160 cm (5' 3 ) 07/18/2024 6:37 PM EST Body Mass Index 29.48 07/18/2024 6:37 PM EST Plan of Treatment Not on file Procedures * Due to [place] Zurn law, this organization might not be sharing negative HIV tests. Procedure Name Priority Date/Time Associated Diagnosis Comments BASIC METABOLIC PANEL STAT 09/20/2024 9:37 AM EDT CBC AUTO DIFFERENTIAL STAT 09/20/2024 9:37 AM EDT XR CHEST 2 VW Routine 09/18/2024 2:21 AM EDT MVL QS - COVID-19, FLU A/B & RSV RNA PCR, SYMPTOMATIC Routine 09/17/2024 9:19 PM EDT from Last 3 Months Results * Due to [place] Zurn law, this organization might not be sharing negative HIV tests. * (ABNORMAL) CBC Auto Differential (09/20/2024 9:37 AM EDT) WBC 7.3 3.8 - 10.8 10*3/uL 09/20/2024 10:06 AM EDT [facility] RBC 3.73(L) 3.80 - 5.80 10*6/uL 09/20/2024 10:06 AM EDT [facility] Hemoglobin 11.3(L) 13.2 - 17.1 g/dL 09/20/2024 10:06 AM EDT [facility] Hematocrit 35.7 35.0 - 50.0 % 09/20/2024 10:06 AM EDT [facility] MCV 95.7 80.0 - 100.0 fL 09/20/2024 10:06 AM EDT [facility] MCH 30.3 27.0 - 33.0 pg 09/20/2024 10:06 AM EDT [facility] MCHC 31.7(L) 32.0 - 36.0 g/dL 09/20/2024 10:06 AM EDT [facility] RDW 13.2 11.0 - 15.0 % 09/20/2024 10:06 AM EDT [facility] Platelets 385 140 - 400 10*3/uL 09/20/2024 10:06 AM EDT [facility] MPV 10.6 7.5 - 12.5 fL 09/20/2024 10:06 AM EDT [facility] Neutrophil % 66.9 % 09/20/2024 10:06 AM EDT [facility] Immature Grans % 1.0(H) 0.0 - 0.9 % 09/20/2024 10:06 AM EDT [facility] Lymphocyte % 15.5 % 09/20/2024 10:06 AM EDT [facility] Monocyte % 15.0 % 09/20/2024 10:06 AM EDT [facility] Eosinophil % 1.2 % 09/20/2024 10:06 AM EDT [facility] Basophil % 0.4 % 09/20/2024 10:06 AM EDT [facility] Neutrophil # 4.86 1.50 - 7.80 10*3/uL 09/20/2024 10:06 AM EDT [facility] Immature Grans # 0.07(H) <=0.03 10*3/uL 09/20/2024 10:06 AM EDT [facility] Lymphocyte # 1.10 0.85 - 3.90 10*3/uL 09/20/2024 10:06 AM EDT [facility] Monocyte # 1.10(H) 0.20 - 0.95 10*3/uL 09/20/2024 10:06 AM EDT [facility] Eosinophil # 0.10 0.02 - 0.50 10*3/uL 09/20/2024 10:06 AM EDT [facility] Basophil # <0.03 0.00 - 0.20 10*3/uL 09/20/2024 10:06 AM EDT [facility] nRBC % 0.0 /100 WBCs 09/20/2024 10:06 AM EDT [facility] nRBC # <0.01 <0.01 10*3/uL 09/20/2024 10:06 AM EDT [facility] Blood Structure of peripheral vein / Unknown Venipuncture / Unknown 09/20/2024 9:37 AM EDT 09/20/2024 9:55 AM EDT us Pattie oMnsivais CUSTOMER OPERATIONS SPECIALIST LAB BLOOD ORDERABLES Final Result [facility] [address] [place] [address], * (ABNORMAL) Basic metabolic panel (09/20/2024 9:37 AM EDT) NA 142 135 - 145 mmol/L 09/20/2024 10:36 AM EDT [facility] K 3.9 3.5 - 5.3 mmol/L 09/20/2024 10:36 AM EDT [facility] Cl 107 98 - 107 mmol/L 09/20/2024 10:36 AM EDT [facility] CO2 22 22 - 32 mmol/L 09/20/2024 10:36 AM EDT [facility] BUN 9 7 - 23 mg/dL 09/20/2024 10:36 AM EDT [employer] [facility] Creatinine 0.85 0.50 - 1.30 mg/dL 09/20/2024 10:36 AM EDT [facility] Glucose 127(H) 65 - 99 mg/dL 09/20/2024 10:36 AM EDT [facility] [employer] Calcium 9.2 8.6 - 10.5 mg/dL 09/20/2024 10:36 AM EDT [facility] Anion Gap 13 5 - 15 09/20/2024 10:36 AM EDT [facility] [employer] [facility] eGFR >90 >=60 mL/min/1. 73m2 09/20/2024 10:36 AM EDT [facility] Comment:The estimated glomer ular filtration rate (eGFR) is calculated using a new formula developed by the NKF-ASN task force to eliminate race-based correction factors. The new formula uses serum/plasma creatinine, age, and gender to determine eGFR. A value below 60mls/min might indicate kidney disease and will be flagged. For additional information, see Arango et al, Am J Kidney Dis. 2021;79(2):268- 288, A Unifying Approach for GFR estimation: Recommendations of the NKF-ASN Task Force on Reassessing the Inclusion of Race in Diagnosing Kidney Disease . Blood Structure of peripheral vein / Unknown Venipuncture / Unknown 09/20/2024 9:37 AM EDT 09/20/2024 10:07 AM EDT us Pattie Monsivais CUSTOMER OPERATIONS SPECIALIST LAB BLOOD ORDERABLES Final Result [facility] [address] [place] [address], * X-Ray Chest 2 Views (09/18/2024 2:21 AM EDT) Anatomical Region Laterality Modality Body Computed Radiogr aphy 09/18/2024 3:45 PM EDT Impressions 09/18/2024 3:46 PM EDT Heart size top normal. Considerable diffuse interstitial thickening/underaeration throughout both lungs. No large effusions. Bones demineralized but otherwise intact. Levoscoliosis noted at the thoracolumbar junction. If this radiology report contains a blank impression section, it is an incomplete radiology report. Please contact the interpreting radiologist or applicable radiology division as soon as possible to obtain the completed interpretation. Workstation ID: [id number] Narrative 09/18/2024 3:46 PM EDT COMPARISON: 09/06/2024 FINDINGS AND Resulting Agency Comment [id number] Procedure Note Nadeem Mullen MD - 09/18/2024 [...] possible to obtain thecompleted interpretation. Workstation ID: [id number] us Raza Baird MD MPH IMG XR PROCEDURES Final Resul t * COVID-19, Flu A/B & RSV RNA PCR, Symptomatic (09/17/2024 9:19 PM EDT) PCR, SARS CoV-2 RNA Not Detected Not Detected [employer] [employer] 09/17/2024 10:27 PM EDT [facility] Comment:A Not Detected (Nega [...] A RNA PCR Not Detected Not Detected [employer] 09/17/2024 10:27 PM EDT [facility] Comment:Negative results do not preclude infection and should not be used as the sole basis for diagnosis, treatment or other patient management decisions. Negative results must be combined with clinical observations, patient history, and/or epidemiological information. Flu B RNA PCR Not Detected Not Detected [employer] 09/17/2024 10:27 PM EDT [facility] Comment:Negative results do not preclude infection and should not be used as the sole basis for diagnosis, treatment or other patient management decisions. Negative results must be combined with clinical observations, patient history, and/or epidemiological information. RSV RNA PCR Not Detected Not Detected [employer] 09/17/2024 10:27 PM EDT [facility] Comment:Negative results do not preclude infection and should not be used as the sole basis for diagnosis, treatment or other patient management decisions. Negative results must be combined with clinical observations, patient history, and/or epidemiological information. Swab (Nares) Non-Blood Collection / Unknown 09/17/2024 9:19 PM EDT 09/17/2024 9:27 PM EDT Narrative [facility] - 09/17/2024 10:27 PM EDT This test was developed, validated and its performance characteristics determined by [facility]. This test has not been cleared or approved by the U.S. Food and Drug Administration (FDA). FDA Policy for Diagnostic Tests for Coronavirus Disease-2019 during the Public Health Emergency issued August 05, 2019, is followed. 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
--- NOTE | 2024-12-13 13:16 | PC.NURSE ---
Pt verbalized to this RN, okay to give information to friend Chucky. [phone] Chucky updated on pt plan of care.
--- NOTE | 2024-12-13 13:17 | MHC.CARE ---
Pt has been assessed and determined to be an inpatient psychiatric bedsearch.
[2024-12-13 15:20] LABS: MANUAL DIFF FLAG NO
[2024-12-13 15:22] LABS: Hematocrit 33.5 % (42.0-52.0); Hemoglobin 11.1 g/dl (14.0-18.0); Imm Gran Abs Auto 0.07 X10*3/uL (0.00-0.03); Imm Gran Pct Auto 0.7 % (0.0-0.4); Lymphocytes Absolute Auto 1.4 X10*3/uL (1.2-4.9); Mean Corpuscular HGB Conc 33.1 g/dl (31.0-36.0); Mean Corpuscular Hemoglobin 29.1 pg (27.0-33.0); Mean Corpuscular Volume 87.9 fL (80.0-98.0); NRBC Abs Auto 0.000 X10*3/uL (0.0-0.012); NRBC Pct Auto 0.0 /100WBC (0.0-0.2); Platelet Count 379 X10*3/uL (160-400); Red Blood Count 3.81 X10*6/uL (4.60-5.80); White Blood Count 10.2 X10*3/uL (4.8-10.8)
--- NOTE | 2024-12-13 15:23 | MHC.EDTECH ---
pt declined EKG MARIIA STUBBS IS AWARE!
[2024-12-13 15:36] LABS: Alanine Aminotransferase 54 U/L (0-40); Albumin Level 3.6 g/dL (3.5-5.0); Alkaline Phosphatase 110 U/L (39-117); Anion Gap 13 (12-20); Aspartate Amino Transferase 73 U/L (5-37); Blood Urea Nitrogen 18 mg/dL (9-16); Calcium 8.9 mg/dL (8.4-10.2); Carbon Dioxide 25 mmol/L (22-29); Chloride 111 mmol/L (96-108); Creatinine Clr Calc Pharmacy 66.9; Estimated Glomerular Filt Rate > 60; Potassium 4.0 mmol/L (3.3-5.1); Sodium 145 mmol/L (135-145); Total Protein 5.8 g/dL (6.5-8.0)
[2024-12-13 15:42] LABS: Acetaminophen LAB < 3 mcg/mL (<30); Salicylate < 5.0 mg/dL (15-30)
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
--- NOTE | 2024-12-13 16:07 | MHC.EDTECH ---
This tech spoke with patient regarding EKG, unable to convince patient to allow EKG at this time. Que castellanos stating I just can't do it, I can't do it. RN aware of second attempt.
[2024-12-13 17:34] LABS: Appearance Urine Hazy; Glucose Urine UA Negative (Negative); PH 7.0 (5.0-9.0); Specific Gravity - Urine 1.010 (1.005-1.025); UMIC TRIGGER UA YES
[2024-12-13 17:43] LABS: Cannabinoid Screen Urine Not Detected (Not Detect)
[2024-12-13 20:37] VITALS: BP 120/50; PULSE 63; RESP 18; TEMP 36.9; O2SAT 97
--- NOTE | 2024-12-13 22:28 | MHC.CM.ED ---
Addendum entered by Carmina Lowe 12/13/24 23:03: HCP reviewed, completed and signed. Uploaded into [facility] and [facility]. Original Note: CM received consult from Lucinda Platt psychiatry instructor. Pt will not be admitted to psych. Psych note is pending. Per Lucinda Platt, pt does not have capacity to make medical decisions. Pt was in [facility] from[facility]-11/27. He has no inpatient medical stays. No qualifying stay. Ambulates independently with difficulty. No PT ordered. Pt is a transgender male. He lives alone. Pt has had many [facility] psych admissions. Pt has HX of SI plans, depression, anxiety, MDD,MILKA, personality disorder. His psychiatrist is Geovanna Davis POULTRY HUSBANDRY WORKER ([phone]).He has no services or DME. No PCP. No HCP. Pt is A&Ox3. Pt tells CM that he cannot care for himself. Has has difficulty with ADL's, doesn't cook, has no showered in weeks, does not change his clothes. He states he cannot. Pt feels he needs to be in a psych facility so he can get better mentally and then he can go home. He does not want to leave his house.He feels he may need to live somewhere else for a while. _Pt does not want to go to a fci. He asks about assisted living. CM explained that you have to be able to care for yourself and that assisted living is not covered by his Medicare. Pt states he gets social security only. He is a transgender male, and is concerned about living with other people. Lucinda in not production machine shop supervisor this weekend. CM spoke with provider Dr. Navarro is aware of above. Plan at this time is for patient to remain in the pod for his mental health comfort. Pt has agreed to HCP-Chucky torres ([phone]). Will complete with patient. If patient does not have capacity and HCP invoked, patient may need LTC. If HCP refuses, then he will need guardianship and conservator. Will need MH application assistance, however, patient states he owns his home. CM needs more input from psych. Pt will remain over the weekend, may be prolonged.
--- NOTE | 2024-12-14 06:22 | PC.NURSE ---
pt calm and cooperative slept well throughout the night. pt did not display and symptoms or behaviors of concern. plan of care ongoing
[2024-12-14 06:28] VITALS: BP 123/58; PULSE 56; RESP 16; TEMP 36.5; O2SAT 98
--- NOTE | 2024-12-14 08:39 | PC.NURSE ---
Assumed care of patient at 0645, patient appears to be in no apparent distress this am, although is reporting some mild anxiety, requesting morning medications at this time. Continue plan of care for [facility] bedsearch
[2024-12-14 08:58] VITALS: BP 115/55; PULSE 59
[2024-12-14 09:04] VITALS: BP 115/55
--- NOTE | 2024-12-14 09:08 | PC.NURSE ---
Addendum entered by Skylar Stubbs RN 12/14/24 15:39: update from pharmacist: Systolic over 120 hold Original Note: No parameter orders in for Midodrine administration, verified with pharmacist, parameters are do not give for systolic over 160 or diastolic over 100 and do not give with less than 4 hours till bedtime
[2024-12-14 15:32] VITALS: BP 139/60
[2024-12-14 15:35] VITALS: BP 139/60; PULSE 61; RESP 18; TEMP 36.6; O2SAT 100
--- NOTE | 2024-12-14 15:38 | PC.NURSE ---
W[place]held 1500 dose of Midodrine due to elevated systolic pressure
[2024-12-14 17:59] VITALS: BP 142/72; PULSE 64; RESP 16; TEMP 37.3; O2SAT 96
--- NOTE | 2024-12-14 19:12 | PC.NURSE ---
Took over for MARIIA Martínez, pt is resting in bed, no sign of distress.
--- NOTE | 2024-12-14 21:07 | PC.NURSE ---
pt medicated for jul.
[2024-12-15] VITALS (8 sets, daily range): BP systolic 111–135; BP diastolic 51–71; PULSE 62–98; RESP 14–18; TEMP 36.6–37.4; O2SAT 96–98
--- NOTE | 2024-12-15 01:40 | PC.NURSE ---
oob to bathroom
--- NOTE | 2024-12-15 05:31 | PC.NURSE ---
medicated per jul. pt sleeping most of the night with no problem
--- NOTE | 2024-12-15 07:02 | PC.NURSE ---
Assumed care of patient at 0645, patient appears to be sleeping, respirations even and unlabored, no apparent distress is noted. Continue plan of care for IPLOC
--- NOTE | 2024-12-15 07:08 | PC.NURSE ---
Assumed care of patient at 0645, patient appears to be sleeping, respirations even and unlabored, no apparent distress is noted. Continue plan of care for Case Management follow up
--- NOTE | 2024-12-15 12:44 | PHA.MEDREC ---
Addendum entered by Dameon Kaye [facility] 12/15/24 14:42: MED REC REVIEWED BY [facility] Original Note: Pharmacy Consult ? Medication Reconciliation Reviewed med rec done by nursing. [facility] reports diazepam and clomipramine were not picked up (needs a prior auth). Patient was given during last admission, keeping on med rec. Patient was prescribed lorazepam outpatient. Will notify provider.
--- NOTE | 2024-12-15 16:34 | PC.NURSE ---
pt had visitor earlier, no issues. now resting comfortably in room, offering no complaints to this RN
--- NOTE | 2024-12-16 03:30 | PC.NURSE ---
Assumed care of pt from Nel CHIANG at 0300. Pt resting in bed, no apparent distress at this time. safety checks in place.
[2024-12-16 06:46] VITALS: RESP 14
--- NOTE | 2024-12-16 08:52 | PC.NURSE ---
patient friend/hcp alex called requesting to speak to CM, phone number [phone]
[2024-12-16 15:11] VITALS: BP 113/59
[2024-12-16 15:29] VITALS: BP 113/59; PULSE 66; RESP 16; TEMP 36.7; O2SAT 98
--- NOTE | 2024-12-16 18:55 | MHC.CM.ED ---
Addendum entered by Carmina Lowe 12/17/24 20:53: Received signed Psych note. No mention of capacity. Recommendation is higher level of care. No IPLOC for psych. CM speaking with Lucinda Platt via TIGER. Will recommend MOCA/ACL. Provider aware and OT was ordered to complete testing. Pt is requesting to meet with CM. CM met with patient to discuss ongoing plan of care and MOCA/ACL testing. Pt is agreeable to testing, but does not want to talk to CM without his HCP present. He is very shaky and nervous. He asks that CM not speak with him now. HCP will be in tomorrow. CM will meet with him and patient when he arrives. Pt continues to request psych stabilization. CM continues to explain the recommendations of the Psych evaluation for higher level of care. Pt adamantly refuses to live in a long-term. He does not have funds for assisted living. He owns his own home and does not have MH. Will wait for the MOCA/ACL to determine next steps. CM following for safe discharge planning. Addendum entered by Carmina Lowe 12/16/24 18:56: CM received telephone call from Chucky Olmedo ([phone]). BENY informed him that Shalom has made him his HCP. Chucky is agreeable at this time to be the HCP, but is unsure if he will continue if Psych determines patient does not have capacity to make medical decisions. Chucky did visit patient today. Shalom has concerns about going to a long-term. Chucky is requesting that patient goes to some kind of crisis stabilization program. He feels this patient needs help at home and feels that he was without some of his medications due to insurance/provider issues. BENY explained that the psych evaluation is pending and no referrals have been made for LTC. Pt does not have a payor source. Chucky tells CM that this patient does own his home. He is unsure of his finances and he is unsure if he would want to assist with MH application if needed. Chucky is aware that if he chooses not to continue as HCP and psych does deem patient not capable to make medical decisions, then Shalom would need a guardian/conservator appointed by the courts. CM following for safe discharge plan. Original Note: BENY sent a TIGER text to Lucinda Platt to discuss plan of care moving forward and to request psych note to be completed.
[2024-12-17 07:21] VITALS: RESP 16
--- NOTE | 2024-12-17 07:21 | PC.NURSE ---
Assumed care of patient at 0645, patient appears to be in no apparent distress this am, sleeping, respirations even and unlabored. Continue plan of care for case management follow up
[2024-12-17 07:45] VITALS: BP 129/76
[2024-12-17 07:46] VITALS: BP 129/76; PULSE 86; RESP 16; TEMP 36.9; O2SAT 97
[2024-12-17 15:11] VITALS: BP 123/60; PULSE 67; RESP 16; O2SAT 95
--- NOTE | 2024-12-17 21:12 | PC.NURSE ---
Assumed care of pt at 1849, pt came to nurses station while getting report and requested to get bedtime meds at 2029, pt went to bathroom and back to bed. 2049 still awaiting med from pharmacy. other meds given. Pt requested Ambien for sleep. Pt medicated. Resting in bed at this time. Safety checks in place, plan of care ongoing.
[2024-12-18 06:26] VITALS: BP 115/57; PULSE 78; RESP 16; TEMP 36.4; O2SAT 96
--- NOTE | 2024-12-18 07:06 | PC.NURSE ---
Assumed care of patient at 0645, patient appears to be in no apparent distress this am, resting in bed, offering no complaints to this RN. Continue plan of care for case management follow up
[2024-12-18 08:09] VITALS: BP 127/65; PULSE 82; RESP 16; TEMP 36.3; O2SAT 97
[2024-12-18 08:14] VITALS: BP 127/65
--- NOTE | 2024-12-18 08:26 | MHC.EDTECH ---
Patient refusing a shower at this time. This tech attempted to persuade patient but patient kept stating I just don't want to.
--- NOTE | 2024-12-18 13:49 | MHC.OT.ID ---
[address] [phone] F: [phone] Occupational Therapy Inpatient Daily Note Patient Name: Lindsey Smith Start Time: End Time: Visit Duration: Billable Time: Pain Score: Pain Location: Self-Care Feeding: Grooming: Washing: Dressing: Toileting: Functional Mobility Bed Mobility: Transfers: Ambulation: Therapeutic Activities IADL/Homecare: Balance: Therapeutic Exercise: Cognition: Assessment Assessment: Order received for acute inpatient assessment of MoCA and ADL, passed eval ob to behavioral health OT as they cover the behavioral health unit in the ED. Plan Plan of Care: No acute inpatient indicated D/C Today: Electronically Signed By: Hortensia Kate OTR/L Reviewed/agree with student documentation: Therapist:
--- NOTE | 2024-12-18 13:50 | PC.NURSE ---
Attempt made this day to administer MOCA cognitive assessment. Pt refuses assessment stating I'm too anxious .
[2024-12-18 15:06] VITALS: BP 136/60; PULSE 77; RESP 16; TEMP 36.6; O2SAT 97
[2024-12-18 15:09] VITALS: BP 136/60
--- NOTE | 2024-12-18 16:31 | PC.NURSE ---
patient resting quietly in room w/ no obvious signs/symptoms of distress noted. cm continues to follow.
--- NOTE | 2024-12-18 19:20 | PC.NURSE ---
day shift MARIIA England states med not given.
--- NOTE | 2024-12-18 20:44 | PC.NURSE ---
assumed care of pt. Celeste SWAN at bedside with pt visitor. Pt medicated per JUL.
--- NOTE | 2024-12-18 21:40 | MHC.CM.ED ---
Addendum entered by Carmina Lowe 12/18/24 22:04: D/C PLAN: Make appointment with PCP. Will need VNA consult from PCP. Reach out to Geovanna Davis yardage caller for F/U appointment. Reach out to Lupis at [facility] for possible therapy referral Consult [facility] Arrange medications with [facility] pharmacy prior to discharge Chucky to arrange home private pay INFORMATION SERVICES TECH's Chucky to arrange meal train/visits with friends daily, beginning on Dec 23. D/C target Saturday 12/23 Addendum entered by Carmina Lowe 12/18/24 21:45: CM met with patient and HCP/Chucky for over an hour. CM stressed the importance of completing the MOCA/ACL examination. Patient tells CM he will participate. States he was too anxious today. Pt refuses to consider LTC. He states he wants to try to live at home with some supports. Pt wants the supports to be there when he is discharged. CM explained that may not be possible. EC must meet with him and then arrange a CLOTHING MANAGER. Explained it may take some time. Pt is interested in [facility]. HCP, Chukcy will be the contact clerk for [facility]. Chucky has spoken to [facility] and tells CM that Shalom will pay $30/month for home help. Pt does not have a PCP. CM will try to arrange appointment tomorrow with PCP in [facility]. Pt is aware that this may take some time. Pt is very concerned about his medications. CM will speak with provider at discharge to have medications delivered to patient from [facility] pharmacy prior to discharge. CM had long discussion about help at home. [facility] might supply a CLOTHING MANAGER twice a week. Chucky is going to arrange a meal train and visit train with their friends to try to ensure that patient has a daily visit. CM discussed using private pay INFORMATION SERVICES TECH from local agencies for 2 hours/twice a week. {Pt does have some funds. CM and Chucky explained to patient that he needs to use some of that money to pay for help so he can be successful living at home. Shalom is willing to try for a month. BENY gave Chucky a local listing of [employer] agencies. Patient and Chucky have spoken with Lupis at [facility] ([phone]). CM will reach out to her regarding discharge plan and possible therapist referral. Pt states he no longer has a therapist. CM and Chucky will need time to set up services, private pay INFORMATION SERVICES TECH's and [facility]. He is requesting that patient be discharged on Monday. He feels he should be able to make arrangements for a more successful home discharge. CM will reach out to him on Monday to ascertain progress on Private Pay help and meal/visit train. Pt is very anxious, but was able to voice his opinions on his discharge. He of course wanted some more time inpatient, but understands that IPLOC is not recommended. He is aware that if he wants to successfully live at home and not in assisted living or a longterm, he must try and work with the agencies and the help of friends. Chucky is very helpful and has a good rapport with Shalom. Original Note: BENY met with Lucinda Platt psychometrician to discuss discharge planning for this patient. Lucinda does not believe that further INC psych admission would be beneficial for this patient and believes he would be better served in LTC. However, patient is refusing. Lucinda believes that patient is at his baseline psychiatrically. Lucinda believes that discharge home with [facility] and VNA would be best at this time. Pt does not have a primary care physician, so VNA cannot be arranged. BENY will meet with patient and his HCP, Chucky Olmedo ([phone]) when he arrives to discuss discharge planning.
--- NOTE | 2024-12-19 06:18 | PC.NURSE ---
pt medicated per MAR.
[2024-12-19 06:24] VITALS: BP 121/60; PULSE 66; RESP 18; TEMP 36.6; O2SAT 98
[2024-12-19 08:16] VITALS: BP 119/71
[2024-12-19 15:28] VITALS: BP 108/57; PULSE 95; RESP 16; TEMP 36.3; O2SAT 96
[2024-12-19 16:06] VITALS: BP 108/57
[2024-12-19 18:05] VITALS: BP 106/57
--- NOTE | 2024-12-19 18:24 | PC.NURSE ---
Calm and cooperative, ambulating on unit with steady gait. Ate well for dinner. Denies pain or discomfort, medicated per mar with midodrine
--- NOTE | 2024-12-19 18:57 | PC.NURSE ---
Assumed care of patient at 0645, patient appears to be in no apparent distress, resting in bed, respirations even and unlabored. Continue plan of care for case management follow up
--- NOTE | 2024-12-19 19:08 | MHC.CM.ED ---
Addendum entered by Carmina Lowe 12/19/24 22:59: Expect discharge home 12/23. Original Note: CM called Alberto Babar [facility] Primary care and made a PCP appointment with Angelia RAMIREZ for 01/14/25 at 3pm. Will reach out to Geovanna Davis NP for psych appointment and Lupis CEDENO for possible therapist appointment tomorrow. CM will follow up with HCP on Monday with discharge planning.
[2024-12-19 20:21] VITALS: BP 141/78; PULSE 64; RESP 16; TEMP 37.2; O2SAT 98
--- NOTE | 2024-12-19 23:52 | PC.NURSE ---
medicated per mar.
--- NOTE | 2024-12-20 06:15 | PC.NURSE ---
medicated per mar.
[2024-12-20 06:25] VITALS: BP 116/60; PULSE 74; RESP 16; TEMP 36.5; O2SAT 97
--- NOTE | 2024-12-20 06:57 | PC.NURSE ---
Addendum entered by Jamee Nichols RN 12/20/24 06:58: Patient is a 74 year-old male with hx of dependent personality, MILKA, PTSD, cognitive impairments who returns after prologued psychiatric admission due to inability to care for himself in the community in that he is not able to initiate nor complete ADLS nor IADLs on his own. We discussed higher level of care. This year he has been mostly in psychiatry units and despite improvement in mood, his difficulty caring for himself is related to underlying cognitive impairments. Per psychiatry patient does not require IPLOC. CM following and working on setting up his out-patient appointments and will continue with discharge planning. Original Note: Medical History Orthostatic hypotension Personality disorder Depression, major, severe recurrence Transgender Hard of hearing Tracheal stenosis
--- NOTE | 2024-12-20 10:36 | MHC.CM.PN ---
Addendum entered by Karina Head 12/20/24 13:41: CM SPOKE TO PTS HCP, HE UNDERSTANDS HE SHOULD BE WORKING ON HOME CARE AND MEAL DELIVERY FOR THE IMMEDIATE FUTURE ANY SERVICES FROM [facility] WILL TAKE TIME TO ARRANGE HE IS AWARE A REFERRAL WAS ALREADY SENT TO THEM AND THEY WILL CONTACT HIM TO ARRANGE AN ASSESSMENT HE SAYS HE CAN TRANSPORT THE PT ON MONDAY, BUT NOT UNTIL AFTER 1500 HOURS Original Note: BENY RECEIVED A MESSAGE FROM PTS HCP, NAVEED [phone], WHO REPORTS HE WAS UNSURE WHAT PARTS OF THE DCP HE SHOULD BE WORKING ON CM CALLED BACK AND LEFT HIM A VM INFORMING HIM HE SHOULD BE WORKING ON PP PRODUCTION MANUFACTURING WORKER'S NOTHING ARRANGED FROM [facility] WOULD START IMMEDIATELY AWAITING A RETURN CALL
[2024-12-20] MEDS: Magnesium Hydrox/Alum Hydrox 30 ML ORAL.SUSP PO (11:02)
--- NOTE | 2024-12-20 13:34 | PC.NURSE ---
Pt completed a Bib Cognitive Assessment with automobile and property underwriter. Pt scored a 27 out of 30 indicating a normal cognition. After reviewing history with staff, pt also is independent regarding level of assistance, however during previous stays pt would refuse to shower independently and would ask for help.
--- NOTE | 2024-12-20 18:58 | PC.NURSE ---
Addendum entered by Skylar Stubbs RN 12/20/24 18:59: *1845 Original Note: Assumed care of patient at 0645, patient appears to be in no apparent distress at this time, resting in bed, respirations even and and unlabored. Continue plan of care for case management follow up
--- NOTE | 2024-12-20 19:12 | MHC.CM.ED ---
Addendum entered by Carmina Lowe 12/20/24 20:51: CM spoke with Chucky Honorio/HCP about discharge planning. He is aware that CM has written everything down for Shalom. Also that there is a handout with [facility] services. Chucky is working on private pay BOTTLE SELECTOR's through an agency. It will be monday and -4 hour blocks of time. CM is unsure what company has been hired. Will confirm prior to discharge. Chucky is also working on a meal/visit train. He is aware of the PCP appointment. He had questions about [facility], as they have some behavioral health services. CM encouraged him to ask Angelia for a referral. CM will meet with Chucky and Shalom prior to discharge on Monday. Original Note: CM called and left a message with Geovanna Davis psychology clinician regarding an appointment for follow up. CM called [facility]. They can offer outpatient walk in therapist or telehealth. Shalom is not capable of going to [facility] and waiting for therapist without an appointment. Shalom would like in-person therapis. If Shalom changes his mind about telehealth, he can call the [facility] for an bzybnjorxzi-[phone]. CM spoke with Shalom about this and left a message for his HCP Chucky. N suggested elder services. CM sent a referral to [facility] for a behavioral health consult. [facility] Behavior[facility] Health service along with referral for home services, [facility] and STOCK[facility]. Handout for [facility] was given to patient. CM spoke with provider regarding medication scripts to [facility] pharmacy so patient can take his medications home with him. Pt does not have a PCP appointment until 01/14 at 3 pm with Angelia Montoya at [facility]. CM met with patient and discussed above. Pt calm and looking forward to going home. Understands plan of care. Planned discharge for 12/24. HCP, Chucky, will transport home around 3 pm.
[2024-12-20 20:26] VITALS: BP 124/60; PULSE 70; RESP 18; TEMP 37.6; O2SAT 98
[2024-12-21] VITALS (8 sets, daily range): BP systolic 91–116; BP diastolic 52–60; PULSE 68–93; RESP 14–18; TEMP 37.1–37.2; O2SAT 95–97
--- NOTE | 2024-12-21 00:55 | PC.NURSE ---
Took over care from MARIIA Martínez at 23:00, pt sleeping, no sign of distress.
--- NOTE | 2024-12-21 03:31 | PC.NURSE ---
pt oob to bathroom
--- NOTE | 2024-12-21 06:11 | PC.NURSE ---
medicated per pt.
--- NOTE | 2024-12-21 07:48 | PC.NURSE ---
This RN assumed care of patient @ 0700. Patient came out to nurses station asking for morning medications. Notified patient that medications arent due until 0900. Patient went back to bed to rest. Calm and cooperative at this time.
--- NOTE | 2024-12-21 08:58 | PC.NURSE ---
Patient c/o of anxiety, administered PRN anxiety per MAR. Effectiveness pending
[2024-12-21] MEDS: Magnesium Hydrox/Alum Hydrox 30 ML ORAL.SUSP PO ×2 (09:18→16:51)
--- NOTE | 2024-12-21 11:31 | MHC.EDTECH ---
This tech attempted to have patient perform his morning ADL's. Patient declining a shower and brushing his teeth at this time.
--- NOTE | 2024-12-21 16:52 | PC.NURSE ---
Patient c/o upset stomach requested maalox PRN, administered medication per JUL effectiveness pending
--- NOTE | 2024-12-21 20:54 | PC.NURSE ---
Patient medicated w/ evening meds as well as PRN ambien per order. patient calm and cooperative, able to make needs known. denies SI/HI, aware of plan of care for d/c home on Monday.
--- NOTE | 2024-12-22 02:00 | PC.NURSE ---
patient up and ambulatory to the bathroom w/ steady gait
--- NOTE | 2024-12-22 03:53 | PC.NURSE ---
patient awake/ambulating to the the restroom at this time. strong/steady gait noted. no use of assistive devices noted. no complaints/requests made at this time. pt back to bed resting w/ eyes closed/lights dimmed. pt remains in physician observation - pending CM/discharge plan. plan of care ongoing.
[2024-12-22 05:46] VITALS: BP 118/71; PULSE 98; RESP 17; TEMP 37.2; O2SAT 97
--- NOTE | 2024-12-22 07:03 | PC.NURSE ---
pt medicated per provider order. pt requesting prn ativan d/t increased anxiety. prn medication utilized - effectiveness pending.
[2024-12-22 08:57] VITALS: BP 119/58
[2024-12-22 09:02] VITALS: BP 119/58; PULSE 75; RESP 14; TEMP 36.8; O2SAT 95
[2024-12-22 15:27] VITALS: BP 95/60
[2024-12-22 18:16] VITALS: BP 127/61
[2024-12-22 18:19] VITALS: BP 120/67; PULSE 65; RESP 16; TEMP 36.7; O2SAT 95
--- NOTE | 2024-12-22 20:25 | PC.NURSE ---
This RN administered Zolpidem 5mg PO @ 2024 on 12/22/24 upon request from pt. Scanning and administration in computer did not save correctly, unable to correct in MAR at this time. Pharmacy aware.
[2024-12-23 06:00] VITALS: BP 109/64; PULSE 81; RESP 16; TEMP 36.6; O2SAT 96
[2024-12-23] MEDS: Magnesium Hydrox/Alum Hydrox 30 ML ORAL.SUSP PO (08:49)
[2024-12-23 10:32] VITALS: BP 111/70
[2024-12-23 10:34] VITALS: BP 111/70; PULSE 81; RESP 16; TEMP 37.2; O2SAT 94
--- NOTE | 2024-12-23 10:40 | MHC.CM.PN ---
CALL TO HCP, NAVEED, AT [phone]. MESSAGE LEFT FOR A CALL BACK TO THIS PROPOSAL COORDINATOR TO DISCUSS ANTICIPATED PLAN FOR DC. BENY FOLLOWING
--- NOTE | 2024-12-23 13:56 | MHC.CM.PN ---
OF THIS NOTE, NO CALL FROM HCP. ACCORDING TO PREVIOUS CM NOTE, PLAN IS FOR 8/5 DC HOME.
--- NOTE | 2024-12-23 15:08 | MHC.CM.PN ---
Addendum entered by Virginia Linares RN 12/23/24 15:29: CHANGE OF PLAN. PROVIDER DOES NOT KNOW WHICH MEDICATIONS TO DC PATIENT ON. PER PREVIOUS CM NOTE, THE PLAN WAS FOR DC WITH MEDICATIONS IN HAND. PATIENT WILL NOT DC TODAY. MARIIA LUCIO, AND PATIENT AWARE OF DC HOLD UP Original Note: Plan is for DC home today. HCP to arrive for 4 pm to transport.Chucky [phone] Patient will need medications in hand prior to dc. RN aware of plan.
[2024-12-23 17:11] VITALS: BP 152/77
--- NOTE | 2024-12-23 20:37 | PC.NURSE ---
Assumed care of patient at 1845, patient is very anxious tonight will not elaborate as to why, more than likely related to pending discharge tomorrow. Pt provided with nighttime medications. New dose of Ambien required as previous dose was discontinued. Dr. Ocampo made aware, verbal order to place 5mg one time dose.
--- NOTE | 2024-12-23 21:17 | MHC.CM.ED ---
Addendum entered by Carimna Lowe 12/23/24 21:23: Ambien is 5mg po qhs prn Original Note: Patient needs all meds renewed at [facility] pharmacy. All were last filled on 11/26/ He has a new PCP appointment on 01/14 at 3 pm. Clomipramine HCL 25 mg po bedtime (new Med) Diazepam 1 mg po BID Famotidine 20 mg po daily Ativan 0.5 mg po q6h prn Promamtine 5 mg po TID Olanzapine 2.5 mg po TID Omeprazole 20 mg po daily Sertraline HCL 200 mg po daily Ambien qhs prn Pt will need these meds prior to discharge. Expect discharge 12/24. HCP Chucky will provide transportation home.
[2024-12-23 22:00] VITALS: RESP 16
[2024-12-23 22:29] VITALS: BP 140/79; PULSE 84; RESP 18; TEMP 36.6; O2SAT 97
[2024-12-24 05:02] VITALS: BP 121/70; PULSE 103; RESP 16; TEMP 37; O2SAT 96
--- NOTE | 2024-12-24 09:57 | MHC.CM.ED ---
Pt's meds will be filled and delivered to the pod prior to pt d/c. (confirmed w/[facility] pharmacy) Received call from pt's friend, Chucky who will pick pt up today at 3pm to transport pt to home. ED BH RN and ED MD aware of plan. Chucky has arranged private pay ECOLOGIST TECHNICIAN's for pt as well as meal prep and visits with friends starting today. Pt has a new pt PCP appt on 01/14 with Lashae Montoya office.
--- NOTE | 2024-12-24 12:57 | PC.NURSE ---
Patient has been sleeping most of the day came out to ask to see if he could get discharged. Will be discharged at 3:00-3:30pm today when partner can pick him up. Medications from [facility] pharmacy are already in bh pod for discharge.
[2024-12-24 14:47] VITALS: BP 146/63; PULSE 101; RESP 16; TEMP 37.2; O2SAT 96
[2024-12-24 16:08] VITALS: BP 146/63; PULSE 101; RESP 16; TEMP 37.2; O2SAT 96
--- NOTE | 2024-12-24 16:58 | MHC.CM.ED ---
Addendum entered by Carmina Lowe 12/24/24 17:02: CM reached out to Kendra Echeverria, statistics intern for [facility] [facility] via TIGER text. Kendra will reach out to Chucky Olmedo (HCP) with an appointment. CM called and left a message with Chucky. Original Note: Meds and discharge paperwork reviewed with Shalom by the Primary RN. Pt has his medications. CM met with patient and his HCP Chucky. They have hired HUMAN RESOURCES TRAINING MANAGER's for 2 4hour shifts. They have a meal/visit train set up for the next week. He has a new PCP appointment with Angelia Montoya at the primary care office for 01/14 at 3pm. CM will reach out to Kendra, statistics intern for [facility] and pt is awaiting [facility] intake. Encouraged HCP to reach out to them in 1-2 days if they don't here from them. CM accompanied patient to his car. HCP Chucky will drive patient home.
== END 2024-12-24 16:11 | disposition home or self-care (01) ==
PROVIDERS: Emergency Medicine; Emergency Provider Emergency Medicine; PCP Internal Medicine
DX: F41.1 Generalized anxiety disorder (principal); F33.1 Major depressive disorder, recurrent, moderate; F02.80 Dementia in other diseases classified elsewhere, unspecified severity, without behavioral disturbance, psychotic disturbance, mood disturbance, and anxiety; R45.851 Suicidal ideations; F41.0 Panic disorder [episodic paroxysmal anxiety]; F23 Brief psychotic disorder; F60.7 Dependent personality disorder; R06.02 Shortness of breath; F64.0 Transsexualism; R05.9 Cough, unspecified; Z79.899 Other long term (current) drug therapy
CPT/HCPCS: 36415; 71046; 80053; 80143; 80179; 80307; 81001; 85025; 93005; 99283; 99285; S9485

== ENCOUNTER → 2024-12-13 12:45 | Outpatient (BNV) | payer MEDICARE, SELFPAY | PROVIDERS: Emergency Provider Emergency Medicine; Visit Provider Internal Medicine Cardiovascular Disease | DX: R00.1 Bradycardia, unspecified (principal) | CPT/HCPCS: 93010 ==

== ENCOUNTER → 2024-12-13 12:47 | Outpatient (BNV) | payer MEDICARE, SELFPAY | PROVIDERS: Emergency Provider Emergency Medicine; Visit Provider Radiology Diagnostic Radiology | DX: R05.9 Cough, unspecified (principal) | CPT/HCPCS: 71046 ==

== ENCOUNTER → 2024-12-13 12:54 | Outpatient (BNV) | payer MEDICARE, SELFPAY | PROVIDERS: Emergency Provider Emergency Medicine; PCP Internal Medicine; Visit Provider Social Worker | DX: F33.1 Major depressive disorder, recurrent, moderate (principal); F02.80 Dementia in other diseases classified elsewhere, unspecified severity, without behavioral disturbance, psychotic disturbance, mood disturbance, and anxiety; F60.7 Dependent personality disorder; F41.1 Generalized anxiety disorder; F41.0 Panic disorder [episodic paroxysmal anxiety] | CPT/HCPCS: 99285 ==

== ENCOUNTER 2024-12-28 10:35 | Emergency (ER) | payer MEDICARE, SELFPAY ==
[2024-12-28] VITALS (7 sets, daily range): BP systolic 98–122; BP diastolic 59–72; PULSE 63–110; RESP 16–18; TEMP 36.9–37.6; O2SAT 92–96; BMI 23.9
--- NOTE | ~2024-12-28 | CT_ITS ---
CLINICAL HISTORY: Pain, Fall CT chest with contrast Comparison: CR/[place]/SR - XR CHEST 2V - 12/13/24 17:01 EDT Findings: The heart is normal size. The visualized thyroid and mediastinum are unremarkable. Scarring and linear atelectasis in the left upper and lower lobes. No contusion, pleural effusion or pneumothorax. Hepatic steatosis. No acute findings in the visualized upper abdomen. Degenerative changes of the spine. No acute fracture. Thoracic dextroscoliosis. IMPRESSION: 1. No acute thoracic findings. This document has been electronically signed by: Ivan Montano MD on 12/28/2024 14:30:45
--- NOTE | ~2024-12-28 | CT_ITS ---
CLINICAL HISTORY: Fall CT maxillofacial without contrast Comparison: CT/[place]/SR - CT FACIAL BONES WO IV CON - 01/22/22 22:21 EDT Findings: No acute fractures. No dislocations. Temporomandibular joints are intact. Chronic mucosal thickening in the right maxillary sinus. Right frontal scalp soft tissue swelling. Orbits normal. No acute findings in the visualized brain. No foreign bodies. IMPRESSION: 1. No acute osseous injury. 2. Right frontal scalp soft tissue swelling. This document has been electronically signed by: Ivan Montano MD on 12/28/2024 14:48:32
--- NOTE | ~2024-12-28 | CT_ITS ---
CLINICAL HISTORY: Fall CT head without contrast Comparison: CT/[place]/SR - CT HEAD/BRAIN WO IV CON - 01/22/22 22:21 EDT Findings: No intra-axial mass, midline shift, hydrocephalus, or acute hemorrhage. Mild diffuse volume loss. Periventricular and subcortical white matter hypoattenuation likely chronic small-vessel ischemic changes. Intracranial atherosclerosis. Mucosal thickening in the right maxillary sinus. The orbits are within normal limits. Right frontal scalp soft tissue swelling. There is no acute fracture. IMPRESSION: 1. No acute intracranial findings. 2. Right frontal scalp soft tissue swelling. This document has been electronically signed by: Ivan Montano MD on 12/28/2024 14:42:51
--- NOTE | ~2024-12-28 | CT_ITS ---
CLINICAL HISTORY: Pain, fall CT abdomen and pelvis with contrast Comparison: None provided Findings: Linear scarring and atelectasis in the left lung. Hepatic steatosis. Mild pancreatic atrophy. Gallbladder, spleen, and adrenal glands are within normal limits. No hydronephrosis. Symmetric contrast enhancement of the kidneys. No bowel obstruction, pneumoperitoneum, or pneumatosis. Aortic atherosclerosis. Tortuous and ectatic left common iliac artery. Right fundal fibroid versus asymmetrically enlarged right ovary measuring 3.2 x 3.9 cm. Urinary bladder is within normal limits. Degenerative changes of the spine. No acute fracture. IMPRESSION: 1. No acute intraabdominal or pelvic pathology. 2. Right fundal fibroid versus asymmetrically enlarged right ovary. Correlate clinically and consider pelvic ultrasound for further evaluation. This document has been electronically signed by: Ivan Montano MD on 12/28/2024 14:50:24
--- NOTE | ~2024-12-28 | CT_ITS ---
CLINICAL HISTORY: Fall CT cervical spine without contrast Comparison: None provided Findings: Normal vertebral body alignment. Mild degenerative changes. No acute fractures or dislocations. No acute findings on limited view of the intracranial contents. Soft tissues of the neck are normal. No consolidation or effusion at the lung apices. IMPRESSION: No acute findings. This document has been electronically signed by: Ivan Montano MD on 12/28/2024 14:44:29
--- NOTE | 2024-12-28 11:00 | PC.NURSE ---
Pt comes to ED from home via EMS s/p fall onto knees. Pt denies head strike today and is not on thinners. A&Ox3 Hypotension noted however Pt reports this his baseline. Pt reports also had a fall 2 days ago, falling backwards striking head and causing bruising to several areas of his body and face. Pt arrives with c-collar placed by EMS. Bruising of various stages can be seen to shoulders, knee, and Pts R eye. No areas of open wounds noted. Awaiting ED provider.
--- OUTSIDE RECORDS SUMMARY | 2024-12-28 11:25 | XMS_ITS | Encounter Summary ---
Author Organization [facility] Address [address] [place] [phone] Phone Care Team Providers Care Steam Drier Tender Name Role Phone Scott Quiroz MD Primary Care Provider [phone] Hernan Arzola MD Unavailable [email or web address] Hoang Mitchell MD Unavailable [phone] Austin Montoya MD Unavailable Hernan Arzola MD Unavailable [facility] [email or web address] Scott Quiroz MD Unavailable Gabriel Malik MD Unavailable [phone] Hernan Arzola MD Primary Care Provider [email or web address] Scott Quiroz MD Primary Care Provider [phone] Aaron Collins MD Unavailable Unknown, Unknown Primary Care Provider Mee Beyer Unavailable [phone] Pcp, Unknown Primary Care Provider Unavailabl e Encounter Details Date Type Department Care Team (Late st Contact Info) Description 09/30/2016 Procedure Pass [facility] [address] [place] [address] Social History Tobacco Use Types [...] documented as of this encounter Care Teams Steam Drier Tender Relationship Specialty Start Date End Date Scott Quiroz MD [address] [place] [id number] [email or web address] PCP - General 11/19/13 04/09/17 Hernan Arzola MD [email or web address] PCP - General Rheumatology 04/10/17 10/23/17 Scott Quiroz MD [address] [id number] [email or web address] PCP - General Internal Medicine 10/24/17 12/19/22 Unknown, Kandy, PCP - General 08/01/23 08/16/23 Pcp, Kandy PCP - General 09/19/23 07/24/24 Hernan Arzola MD [email or web address] Internal Medicine 10/02/15 10/20/20 Hoang Mitchell MD [address] [place] [address] [address] [address] [email or web address] Provider Rheumatology 10/02/15 Austin Montoya MD [address] [address] [email or web address] Historical LMR Provider 03/06/17 05/29/21 Hernan Arzola MD [email or web address] Historical LMR Provider 03/06/17 10/20/20 Scott Quiroz MD [address] [place] [id number] [email or web address] Historical LMR Provider 03/06/17 10/20/20 Gabriel Malik MD [address] [address] Historical LMR Provider 03/06/17 2 Aaron Collins MD [address] [address] [email or web address] Primary Oncologist Hematology and Oncology 11/30/2208/23 Mee Badillo MBBS [email or web address] Primary Oncologist Medical Oncology 08/25/23 documented as of this encounter Additional Source Comments The information contained in this document represents components of the legal health record. It is not the complete legal health record.[facility]
--- OUTSIDE RECORDS SUMMARY | 2024-12-28 11:25 | XMS_ITS | Referral Summary ---
Author Organization [facility] Address [address] [place] [address] Care Team Providers Care Restrike Hammer Operator Name Role Phone Scott Quiroz Primary Care Provider [phone] Allergies Active Allergy Reactions Criticality Noted Date [...] EST Plan of Treatment Not on file Insurance MEDICARE Advance Directives Documents on File Type Date Recorded Patient Staff Nurse Midwife Expl anation Health Care Proxy 09/25/2024 10:19 PM Check list * Full Code (Latest Code Status on File) Date Activated Date Inactivated Comments 07/18/2024 7:29 PM 09/25/2024 4:27 PM Healthcare Agents on File Name Relationship Healthcare Agent Relationshi p Communication Jony S Friend Health Care Agent Care Teams Restrike Hammer Operator Relationship Specialty Start Date End Date Scott Quiroz [phone] [id number] PCP - General Internal Medicine 08/20/24
--- NOTE | 2024-12-28 11:33 | ECG_ITS ---
Test Reason : FALLS Blood Pressure : */* mmHG Vent. Rate : 100 BPM Atrial Rate : 100 BPM P-R Int : 148 ms QRS Dur : 74 ms QT Int : 382 ms P-R-T Axes : 43 9 52 degrees QTcB Int : 492 ms Normal sinus rhythm Nonspecific T wave abnormality Abnormal ECG When compared with ECG of 13-Dec-2024 20:51, Vent. rate has increased by 45 bpm QT has lengthened Referred By: January Gipson Electronically Signed By: WILSON YANEZ
[2024-12-28 12:05] LABS: MANUAL DIFF FLAG NO
[2024-12-28 12:07] LABS: Hematocrit 36.6 % (42.0-52.0); Hemoglobin 11.8 g/dl (14.0-18.0); Imm Gran Abs Auto 0.09 X10*3/uL (0.00-0.03); Imm Gran Pct Auto 1.0 % (0.0-0.4); Lymphocytes Absolute Auto 0.5 X10*3/uL (1.2-4.9); Mean Corpuscular HGB Conc 32.2 g/dl (31.0-36.0); Mean Corpuscular Hemoglobin 28.3 pg (27.0-33.0); Mean Corpuscular Volume 87.8 fL (80.0-98.0); NRBC Abs Auto 0.000 X10*3/uL (0.0-0.012); NRBC Pct Auto 0.0 /100WBC (0.0-0.2); Platelet Count 257 X10*3/uL (160-400); Red Blood Count 4.17 X10*6/uL (4.60-5.80); White Blood Count 9.1 X10*3/uL (4.8-10.8)
[2024-12-28 12:12] LABS: INTERNATIONAL NORM RATIO 1.1 (0.9-1.1); Prothrombin Time 12.3 SEC (10.9-12.4)
[2024-12-28 12:30] LABS: Alanine Aminotransferase 42 U/L (0-40); Albumin Level 3.7 g/dL (3.5-5.0); Alkaline Phosphatase 110 U/L (39-117); Anion Gap 17 (12-20); Aspartate Amino Transferase 164 U/L (5-37); Blood Urea Nitrogen 16 mg/dL (9-16); Calcium 8.8 mg/dL (8.4-10.2); Carbon Dioxide 21 mmol/L (22-29); Chloride 106 mmol/L (96-108); Creatinine Clr Calc Pharmacy 66.2; Estimated Glomerular Filt Rate > 60; Potassium 4.4 mmol/L (3.3-5.1); Sodium 140 mmol/L (135-145); Total Protein 6.5 g/dL (6.5-8.0)
--- NOTE | 2024-12-28 12:34 | ED_ITS ---
HPI - General Adult General Chief complaint: Fall Stated complaint: MULTI FALLS THIS AM,KNEE/HEAD BRUSIING,-THINNERS Time Seen by Provider: 12/28/24 11:17 Source: patient Mode of arrival: EMS History of Present Illness ED Provider: Brandan DING narrative: 74-year-old male who presents with multiple falls, fell today, denies any loss of consciousness but reports that fell downstairs 2 days ago without loss of consciousness but multiple areas of bruising to include face/right eye/scalp/legs/arms Related Data Home Medications ?Medication ?Instructions ?Recorded ?Confirmed lorazepam 0.5 mg tablet 0.5 mg PO Q6H PRN anxiety 12/28/24 Previous Rx's ?Medication ?Instructions ?Recorded famotidine 20 mg tablet 20 mg PO DAILY 30 days #30 t abs 11/26/24 midodrine 5 mg tablet 5 mg PO TID@0900,1500,1800 3 0 days 11/26/24 #90 tabs omeprazole 20 mg capsule,delayed 20 mg PO DAILY@0630 3 0 days #30 11/26/24 release caps sertraline 100 mg tablet 200 mg (2 x 100 mg) PO DAILY 30 11/26/24 days #60 tabs zolpidem 5 mg tablet 5 mg PO BEDTIME PRN Sleep 30 days 11/26/24 #30 tabs olanzapine 5 mg tablet 5 mg PO BID #60 tabs 5 Allergies Allergy/AdvReac Type Severity Reaction Status Date / Time ciprofloxacin (From CIPRO) Allergy Unknown DIARRHEA Verified 12/28/24 10:54 Morpholine Analogues Allergy Unknown Unknown Verified 12/28/24 10:54 amoxicillin Allergy Nausea Verified 12/28/24 10:54 meperidine Allergy Unknown Verified 12/28/24 10:54 pollen extracts Allergy Unknown Verified 12/28/24 10:54 Review of Systems 2 Review of Systems: Pertinent positives and negatives as stated in HPI PMFSH Past Medical History Source: nursing notes reviewed Medical History Orthostatic hypotension Personality disorder Depression, major, severe recurrence Transgender Hard of hearing Tracheal stenosis Family History Family History Father Heart disease Social History Social History Household Members: None Housing: House Do you presently have visiting nurse or other home services: No Alcohol intake: never Comment: Patient ambulates independently w/o assistive devices Patient Tobacco Use Status: Never used Tobacco Tobacco use type: Cigarette Years Smoked: 10 Smoked in Last 30 Days: No e-Cigarette/Vaping Use: Never Used Second Hand Smoke Exposure: No Use of substances other than those prescribed or required for medical reasons: No Advance Directives: No Advance Directives Information Provided: Yes Do you have a plan to hurt others: No Plan service: No Sexual orientation: Straight/Heterosexual Physical Exam ED Exam Exam: VITAL SIGNS: Reviewed. GENERAL: Well developed, well nourished, in no acute distress. HEAD: Normocephalic/scalp contusion EYES: PERRLA, EOMI , periorbital edema/ecchymosis without hyphema or subconjunctival hemorrhage EARS: Ext canals without abnormality, no hemotympanum NOSE: Nares patent bilateral OROPHARYNX: no oral lesions noted, posterior pharynx clear NECK: C-collar is in place, no midline cervical spine tenderness to palpation or step-offs noted LUNGS: Normal breath sounds. No adventitious sounds or accessory muscle use. SpO2<95>; CHEST WALL: No discrete tenderness to palpation, no crepitus, there are multiple areas of contusions CARDIOVASCULAR: Regular rate and rhythm without noted murmurs, no JVD or lower extremity edema. ABDOMEN: Soft, non-tender, non-distended with bowel sounds. PELVIS: Stable, nontender MUSCULOSKELETAL: ttp, no deformities, multiple areas of contusion/ecchymotic areas to bilateral lower and upper extremities EXTREMITIES: No cyanosis, clubbing or edema. SKIN: Inspection of the skin reveals no rashes NEUROLOGIC: Alert and oriented x 3. Strength and sensation to light touch were grossly intact x 4, very anxious. Vital Signs: Vital Signs - 24 hr 01/02/25 13:45 01/02/25 14:13 01/02/25 17:19 Temperature 97.1 F Pulse Rate 70 Respiratory Rate 16 Blood Pressure 102/53 L 109/54 L 120/48 L Pulse Oximetry 95 Oxygen Delivery Method Room Air 01/02/25 19:56 01/03/25 06:00 01/03/25 08:51 Temperature 98.0 F 98.0 F Pulse Rate 58 63 Respiratory Rate 16 16 Blood Pressure 119/53 L 117/57 L 117/57 L Pulse Oximetry 98 95 Oxygen Delivery Method Room Air Room Air BMI result Body Mass Index 23.9 Course Reevaluation(s) Reevaluation #1: Physician observation continued. Uneventful night. Vital signs stable. No complaints from nursing overnight. Med reconciliation reviewed and done. Pending disposition. Will continue to monitor. Time: 09:24 Reevaluation #2: Physician observation continued overnight. No acute overnight events. Patient is still pending physical therapy evaluation. Case management has been consulted. Home meds have been restarted. Will continue to monitor. Time: 09:56 Reevaluation #3: Time: 08:51 Date: 12/31/24 Provider: Jennifer Mcdermott, Patient in physician observation for PT/CM? No acute events reported overnight. No current complaints. VS stable.? Patient is pending placement. Will continue to monitor. Time: :27 Additional Reevaluation(s): Time: :27 Date: 01/01/25 Provider: Tyra Calloway PA-C Patient in physician observation for case management needs. No acute events reported overnight.?Tylenol prn ordered placed. No current issues or complaints. VS stable. Patient is pending placement at facility. Will continue to monitor. Time: 08:22 Date: 01/02/25 Provider: ASHLEY Rubio Patient in physician observation for case management needs. No acute events reported overnight.? No current issues or complaints. VS stable. Case management reports 4 facilities offering a bed but requesting 1 month pay upfront rather than the 2 weeks payment the patient can do. additional referrals placed 40 miles out. Will continue to monitor and f/u with case management fos dispo 1043 Patient will be discharged to [facility] for short-term rehab today at 11:00. I agree with this plan. Medications Administered Generic Name Dose Route Start Last Admin Trade Name Freq PRN Reason Stop Dose Admin Acetaminophen 650 mg 01/01/25 09:26 01/01/25 17:13 Acetaminophen 325 Mg Tablet PO 650 mg Q6H PRN Administration Pain, Mild 1-3,fever,headache Famotidine 20 mg 12/29/24 09:00 01/03/25 08:49 Famotidine 20 Mg Tablet PO 20 mg DAILY SAL Administration Ibuprofen 600 mg 01/01/25 21:01 01/02/25 05:49 Ibuprofen 600 Mg Tablet PO 600 mg Q8H PRN Administration Pain, Moderate(Pain Scale 4-6) Midodrine 5 mg 12/28/24 18:00 01/03/25 08:51 Midodrine Hcl 5 Mg Tablet PO 5 mg TID@0900,1500,1800 SAL Administration Olanzapine 5 mg 12/28/24 21:00 01/03/25 08:49 Olanzapine 5 Mg Tablet PO 5 mg BID SAL Administration Omeprazole 20 mg 12/29/24 06:30 01/03/25 05:50 Omeprazole 20 Mg Capsule.Dr PO 20 mg DAILY@0630 SAL Administration Sertraline HCl 200 mg 12/28/24 16:15 01/03/25 08:49 Sertraline Hcl 100 Mg Tablet PO 200 mg DAILY SAL Administration Zolpidem Tartrate 5 mg 01/02/25 23:20 01/02/25 23:26 Zolpidem Tartrate 5 Mg Tablet PO 5 mg BEDTIME SAL Administration Discontinued Medications Generic Name Dose Route Start Last Admin Trade Name Freq PRN Reason Stop Dose Admin Acetaminophen 975 mg 12/28/24 16:02 12/28/24 16:51 Acetaminophen 325 Mg Tablet PO 12/28/24 16:03 975 mg ONCE ONE Administration Acetaminophen 650 mg 12/31/24 22:02 12/31/24 22:58 Acetaminophen 325 Mg Tablet PO 12/31/24 22:03 650 mg ONCE ONE Administration Ibuprofen 600 mg 12/29/24 12:54 12/29/24 13:31 Ibuprofen 600 Mg Tablet PO 12/29/24 12:55 600 mg ONCE ONE Administration Iohexol 100 ml 12/28/24 12:57 12/28/24 12:58 Iohexol 350 Mg/Ml 100 Ml Infus..Btl IV 12/28/24 12:58 100 ml ONCE ONE Administration Lorazepam 0.5 mg 12/28/24 12:21 12/28/24 13:02 Lorazepam 0.5 Mg Tablet PO 12/28/24 12:22 0.5 mg ONCE ONE Administration Lorazepam 0.5 mg 12/28/24 16:01 01/02/25 14:02 Lorazepam 0.5 Mg Tablet PO 0.5 mg Q6H PRN Administration Anxiety Zolpidem Tartrate 5 mg 12/28/24 16:01 01/01/25 20:33 Zolpidem Tartrate 5 Mg Tablet PO 5 mg BEDTIME PRN Administration Sleep Medical Decision Making Medical Decision Making [facility] Narrative: 74-year-old male with history and clinical presentation, DD DX: Obvious traumatic falls, no immediate evidence of use of blood thinners, no focal or neurologic deficits noted at this time, will rule out any intracranial/cervical spine/chest or abdomen pelvis injuries given the extensive amount of ecchymosis and contusions. EKG in my interpretation: Normal sinus rhythm, HR-100, no STEMI, TN/QRS/QTC/QTC is otherwise within normal limits. 1200: I reviewed and interpreted all investigations and there is no leukocytosis, there is a stable anemia no thrombocytopenia. Coagulation studies are within normal limits. There is no evidence of MARU/electrolyte or liver enzyme derangements. Elevated transaminases may be secondary to occult use of alcohol verses fatty liver, patient has no complaints of abdominal pain to otherwise suggest hepatobiliary etiology. Urinalysis significant for blood although no presence of RBCs so highly suspect that this is secondary to muscle breakdown likely from the falls, no evidence of renal failure and patient instructed to increase fluid intake. My interpretation is in agreement with radiology's impression that there are no acute findings of intracranial hemorrhage or mass effect, no cervical spine fractures or subluxations (C-collar was cleared), no evidence of facial fractures, no intrathoracic or intra-abdominal findings to suggest spinal fracture/rib fracture/pneumothoraces/solid organ injury and no evidence of pelvic injury. At this time patient is otherwise well-appearing though multiple bruises and contusions as outlined in both the HPI and the clinical exam but nontoxic and hemodynamically stable. 1547: Patient was just discharged from this facility and was supposed to have in-home services, however it does appear that these are not currently in affect and given the number of falls and instability that patient has undergone, recommended to the patient that he should be stay and be further evaluated by case management in the hopes that they will be able to expedite in-home services to provide a safer discharge. Patient placed in physician observation because the patient needed more time for case management evaluation. At the time observation was started the patient's vital signs were stable, patient is alert and oriented, neuro: Nonfocal, CV RRR, lungs clear Code status is full, medication reconciliation will be completed, case management/physical therapy consultation has been ordered. Differential Diagnosis Differential Diagnoses: The differential diagnosis associated with the presentation includes See above Admission/Observation Consideration of admission/observation: Escalation of care including admission/observation considered Patient will be placed in case management observation hold given that it is not a safe discharge given the shear number falls and multiple contusions that patient has undergone. Lab Data MDM Lab Attestation statement: I reviewed the patient's lab results. See above 12/31/24 21:07 12/31/24 21:07 Labs: Lab Results 12/28/24 12/28/24 12/31/24 Range/Units 12:01 14:03 21:07 WBC 9.1 8.1 (4.8-10.8) X10*3/uL RBC 4.17 L 3.93 L (4.60-5.80) X10*6/uL Hgb 11.8 L 11.3 L (14.0-18.0) g/dl Hct 36.6 L 34.4 L (42.0-52.0) % MCV 87.8 87.5 (80.0-98.0) fL MCH 28.3 28.8 (27.0-33.0) pg MCHC 32.2 32.8 (31.0-36.0) g/dl RDW 14.9 15.2 (11.0-16.0) % Plt Count 257 D 347 D (160-400) X10*3/uL MPV 11.1 10.7 (9.4-12.4) fL Immature Gran % (Auto) 1.0 H 1.5 H (0.0-0.4) % Neut % (Auto) 85.3 H 72.9 (45-73) % Lymph % (Auto) 5.1 L 13.8 L (20-40) % Ogle % (Auto) 8.2 8.7 (2-11) % Eos % (Auto) 0.2 2.7 (0-4) % Baso % (Auto) 0.2 0.4 (0-2) % Lymph # (Auto) 0.5 L 1.1 L (1.2-4.9) X10*3/uL Ogle # (Auto) 0.8 0.7 (0.1-1.2) X10*3/uL Eos # (Auto) 0.0 0.2 (0.0-0.4) X10*3/uL Baso # (Auto) 0.0 0.0 (0.0-0.2) X10*3/uL Abs Immat Gran (auto) 0.09 H 0.12 H (0.00-0.03) X10*3/uL Absolute Neuts (auto) 7.8 5.9 (2.0-8.3) x10*3/uL Absolute Nucleated RBC 0.000 0.000 (0.0-0.012) X10*3/uL Nucleated RBC % (auto) 0.0 0.0 (0.0-0.2) /100WBC PT 12.3 (10.9-12.4) SEC INR 1.1 (0.9-1.1) Sodium 140 140 (135-145) mmol/L Potassium 4.4 3.9 (3.3-5.1) mmol/L Chloride 106 107 (96-108) mmol/L Carbon Dioxide 21 L 23 (22-29) mmol/L Anion Gap 17 14 (12-20) BUN 16 16 (9-16) mg/dL Creatinine 0.87 0.67 (0.5-1.4) mg/dL Estim Creat Clear Calc 66.2 85.9 Estimated GFR > 60 > 60 Random Glucose 95 106 (60-115) mg/dL Calcium 8.8 8.4 (8.4-10.2) mg/dL Total Bilirubin 0.4 0.3 (0.0-1.0) mg/dL AST 164 H 169 H (5-37) U/L ALT 42 H 103 H (0-40) U/L Alkaline Phosphatase 110 108 (39-117) U/L Total Creatine Kinase 625 H (38-174) U/L Total Protein 6.5 5.7 L (6.5-8.0) g/dL Albumin 3.7 3.2 L (3.5-5.0) g/dL Urine Color Yellow Urine Appearance Clear Urine pH 8.0 (5.0-9.0) Ur Specific Wilson >= 1.030 H (1.005-1.025) Urine Protein 30 (1+) H (Neg-Trace) mg/dL Urine Glucose (UA) Negative (Negative) mg/dL Urine Ketones 40 (Negative) mg/dL Urine Blood Large (3+) H (Negative) Urine Nitrite Negative (Negative) Ur Leukocyte Esterase Negative (Negative) Urine RBC 0-2 (0-2) /HPF Urine WBC 0-5 (0-5) /HPF Ur Squamous Epith Cells 0-2 (0-2) /HPF Urine Bacteria None Seen (None Seen) Hyaline Casts 0-2 (0-2) /LPF Independent Interpretation I performed an independent interpretation of an: EKG and CT Scan Interpretation: See above Radiology Impression Discussion of test interpretation with radiology: I have reviewed the radiologist's reading. Radiologist Impression: See above External Record Review External record reviewed: Outpatient record, Prior outpatient labs and Prior outpatient radiology Chronic Conditions Patient?s care impacted by: Other Psychiatric history Discharge Plan Discharge Clinical Impression: Multiple falls, Contusion, orbital rim, Contusion of both upper extremities, Contusion of multiple sites of lower extremity Patient Disposition: Xfer Other Transfer Details: [facility] [place] Instructions: Musculoskeletal Pain (ED) Additional Instructions: Take your medications as prescribed. If you were prescribed antibiotics today, it is important that you take your medication to their entirety, do not skip any doses, do not finish them early. Follow-up with your primary care provider this week. Return to the emergency department with new or worsening symptoms. Such as fevers, chills, chest pain, shortness of breath, nausea, vomiting, dizziness, headache, vision changes, lethargy In case of emergency call 911 Prescriptions: No Action midodrine 5 mg Tablet 5 mg PO TID@0900,1500,1800 30 Days Qty: 90 0RF sertraline 100 mg Tablet 200 mg PO DAILY 30 Days Qty: 60 0RF famotidine 20 mg Tablet 20 mg PO DAILY 30 Days Qty: 30 0RF omeprazole 20 mg Capsule,Delayed Release(Dr/Ec) 20 mg PO DAILY@0630 30 Days Qty: 30 0RF zolpidem 5 mg tablet 5 mg PO BEDTIME PRN (Reason: Sleep) 30 Days Qty: 30 0RF olanzapine 5 mg tablet 5 mg PO BID Qty: 60 0RF lorazepam 0.5 mg tablet 0.5 mg PO Q6H PRN (Reason: anxiety) Referrals: [facility] [Other] Angelia Montoya PA-C [Primary Care Provider, Internal Medicine] - 01/14/25 Referral Note: THIS IS A KNOWN PREVIOUSLY OBTAINED APPT BY PT, HE WILL NEED TO CALL FOR APPT TIME IF HE DOES NOT REMEMBER Print Language: Frisian
[2024-12-28] MEDS: iohexoL 350 MG/ML 100 ML INFUS..BTL IV (12:58)
[2024-12-28 14:08] LABS: Appearance Urine Clear; Glucose Urine UA Negative (Negative); PH 8.0 (5.0-9.0); Specific Gravity - Urine >= 1.030 (1.005-1.025); UMIC TRIGGER UACC YES
--- NOTE | 2024-12-28 17:26 | PC.NURSE ---
Call received from Chucky (Pt HCP) inquiring about an update. Pt given verbal consent to speak with caller. Update given as far as events up until this time and plan for PT/CM. Chucky reports he will be by to visit in the AM.
--- NOTE | 2024-12-28 18:29 | MHC.EDTECH ---
pt and visitor explained to this tech that all he is going to eat is cereal, with soy milk when provided with dinner tray. this tech explained that we will have to update the diet order, and inform the kitchen of said request.
--- NOTE | 2024-12-28 19:47 | MHC.EDTECH ---
@1945 the patient used his call francisco for help on bed augustin.
--- NOTE | 2024-12-28 19:51 | MHC.EDTECH ---
@1950 The patient used his call francisco to get off the bed augustin.
--- NOTE | 2024-12-28 20:30 | MHC.EDTECH ---
Addendum entered by Susy Metcalf 12/28/24 20:32: call francisco left on the patient's bed with in arms reach. Original Note: @2014 the patient was changed into a casandra, washed up with ready bath wipes, boosted and repositioned for comfort. Vitals updated, belonging list done.
[2024-12-29] VITALS (12 sets, daily range): BP systolic 85–120; BP diastolic 51–74; PULSE 70–92; RESP 16–20; TEMP 36.3–36.9; O2SAT 91–99
--- NOTE | 2024-12-29 00:15 | MHC.EDTECH ---
@00:10 PATIENT USED CALL [facility] FOR ASSISTANCE ON THE BEDPAN
--- NOTE | 2024-12-29 04:11 | MHC.EDTECH ---
@1571 The patient called for help, this tech went into the room to find out he needed assistance to get on the bed augustin. Once completed patient was helped off, cleaned up, call francisco place within arms reach, warm blanket provided, and vitals updated.
--- NOTE | 2024-12-29 07:57 | PHA.MEDREC ---
Addendum entered by Gael Mejía PharmD 12/29/24 07:58: reviewed Original Note: Pharmacy Consult ? Medication Reconciliation Pharmacy has reviewed the medication reconciliation done by nursing. Claims match med list.
--- NOTE | 2024-12-29 09:10 | MHC.CM.ED ---
Received consult for assessment of d/c needs: Pt from home with falls resulting in facial contusions and generalized body aches. Met with pt to discuss d/c needs. Pt states he is very weak, sore and having difficulty getting comfortable. He states his lower extremities are unable to support his weight resulting in impaired balance and falls. Pt was recently in the ED and d/c'd to home with privately hired companions and community supports. Pt was not able to quantify frequency of visits. Pt understands he will remain holding in the ED for a PT eval. He would like to return to home but is worried about safety. Briefly discussed Acute and STR - pt does not have a 3 [place] MCR qualifying stay and no secondary payor. Will refer to acute rehabs pending PT eval. HCP on file and verified: New PCP (Lashae Montoya) appt on 01/14. Assessment limited by pt discomfort. ED CM to follow.
--- NOTE | 2024-12-29 11:08 | PC.NURSE ---
Pt to ED overflow, moved into bed 1. A/O x 3, reporting generalized pain. Bruising noted to right eye, scalp, legs and arms. Pt reports increasing anxiety, prn ativan admin per MAR with good effect. Pt friends at bedside, phone numbers provided for contact if need be for assist with any discharge needs. Russel [phone] and Chucky [phone]
--- NOTE | 2024-12-29 12:30 | PC.NURSE ---
Pt reporting increasing pain to BLE and requesting pain medication, tiger message sent to covering provider. No new orders at this time.
--- NOTE | 2024-12-29 18:39 | PC.NURSE ---
Pt noted to have bp 85/51, asymptomatic. Midodrine admin per JUL, pt BP on recheck 96/62. Provider aware.
[2024-12-30 05:59] VITALS: BP 96/60; PULSE 79; RESP 16; TEMP 36.6; O2SAT 94
--- NOTE | 2024-12-30 05:59 | PC.NURSE ---
Pt remains in ED overflow awaiting safe disposition plan. A/O x4. VSS on RA, BPs soft. No reports of pain. No acute s/s of distress. Calls appropriately for assistance. Call francisco and personal items within reach. Uneventful night.
[2024-12-30 08:28] VITALS: BP 96/60
--- NOTE | 2024-12-30 13:28 | MHC.CM.PN ---
PT KRISTEN RECOMMENDING AR, GAY HAS ALREADY DECLINED UPDATES SENT TO [facility]
[2024-12-30 13:42] VITALS: BP 91/58; PULSE 90; RESP 16; TEMP 36.5; O2SAT 94
[2024-12-30 15:46] VITALS: BP 91/58
[2024-12-30 17:50] VITALS: BP 95/62
[2024-12-30 19:41] VITALS: BP 117/64; PULSE 76; RESP 16; TEMP 36.9; O2SAT 96
--- NOTE | 2024-12-31 04:53 | PC.NURSE ---
No overnight events. Patient is pleasant, calm, cooperative with care. Voids on the bedpan, no bm last night. Denies cp,sob,n/v. Denies pain. Slept throughout the night. All safety measures in place.
[2024-12-31 05:33] VITALS: BP 113/54; PULSE 82; RESP 16; TEMP 37; O2SAT 93
--- NOTE | 2024-12-31 07:41 | PC.NURSE ---
Addendum entered by Jamee Nichols RN 12/31/24 07:43: Patient is a 74 year-old male with hx of dependent personality, PTSD, MILKA, cognitive impairments who was recently evaluated at this facility for increased depression, suicidal ideation and anxious mood presented with multiple falls including falling down some stairs with positive LOC. Patient resting comfortably. Respirations even and non-labored. Abdomen soft, non-tender with positive bowel sounds. Positive pedal pulses with no edema. Original Note: Medical History Orthostatic hypotension Personality disorder Depression, major, severe recurrence Transgender Hard of hearing Tracheal stenosis
--- NOTE | 2024-12-31 10:35 | MHC.CM.ED ---
Patient remains in ER overflow. [facility] have denied pateint. [facility] is still reviewing. Continue to monitor for d/c needs.
[2024-12-31 14:00] VITALS: BP 111/62; PULSE 76; RESP 18; TEMP 36.3; O2SAT 96
--- NOTE | 2024-12-31 14:50 | MHC.CM.ED ---
Received notification [facility] is not able to offer a bed. Received voicemail from [facility] requesting an update. Attempted to call [facility] via telephone at [phone]. Left voicemail explaining [facility] was not able to offer a bed and requesting a return telephone call. Continue to monitor for d/c needs.
--- NOTE | 2024-12-31 20:06 | MHC.CM.ED ---
Addendum entered by Carmina Lowe 12/31/24 20:20: CM received TIGER text from Sana Davis, psychologist research assistant. She expressed concerns that patient cannot care for himself, not complete ADLs, and that her recommendation is for LTC. She is aware that acute rehab have denied bed and that medicare will not pay for STR. CM explained that patient has refused LTC. Patient had a MOCA of 22/30 last week. That patient is competent to make decisions. Explained that patient is not interested in [facility]. Aware that patient has agreed to private pay STR at this time. CM has concerns that patient will actually pay if offered a bed. Pt did have an appointment with her December 26, which this CM made for him, and he refused to go. Sana states patient often times does not keep appointments. She admits that patients problems are chronic. Original Note: CM recieved telephone call from HCP/Chucky. Chucky has concerns about patient safely living at home. States he was doing well, and then he fell. He has concerns for Rhabdo, as he thinks patient was on the floor for a while. Pt VSS. Labs okay. Per primary RN, patient eating on drinking well. Per primary RN, patient encouraged to ambulate with walker to the bathroom. Chucky expressed concerns that acute rehabs has denied bed offer. BENY explained that patient is not medically complex enough for acute rehab. Explained that patient does not have a Q.S., so medicare will not pay for STR. CM cannot arrange Home PT/VNA, as patient does not have a PCP. First PCP appointment on 01/14 at 10 am with Angelia Montoya. Explained that patient would have to private pay for STR. Chucky is questioning patient moving into [facility] and has had some communication with Jhon Lawrence in [facility], but has not spoken to patient. CM met with patient. Explained that he had 2 falls at home. One in which his legs gave out. Pt has significant ecchymosis about right eye, side of head, knee. States he has many bruises. CM explained that acute rehabs have denied bed offer. Explained that medicare will not pay for STR. Explained that options are to private pay for STR or discharge home. Pt states he doesn't have funds. CM reminded patient that previous ED visit, patient was going to pay for home health aide. 8 hours per week. CM explained that most STR are about $400/day for 2 weeks. CM spoke with patient about his ability to remain home. Suggested considering [facility]. Pt refuses. Pt refuses LTC, has no payor source. Pt owns his home. Pt is adamant that he just wants to get stronger and go home. Pt is agreeable at this time for private pay STR. Referrals will be made, with request for rates. Provider aware of HCP concerns for rhabdo. Will repeat labs.
[2024-12-31 20:10] VITALS: BP 103/65; PULSE 83; RESP 20; TEMP 36.5; O2SAT 95
[2024-12-31 21:16] LABS: MANUAL DIFF FLAG NO
[2024-12-31 21:19] LABS: Hematocrit 34.4 % (42.0-52.0); Hemoglobin 11.3 g/dl (14.0-18.0); Imm Gran Abs Auto 0.12 X10*3/uL (0.00-0.03); Imm Gran Pct Auto 1.5 % (0.0-0.4); Lymphocytes Absolute Auto 1.1 X10*3/uL (1.2-4.9); Mean Corpuscular HGB Conc 32.8 g/dl (31.0-36.0); Mean Corpuscular Hemoglobin 28.8 pg (27.0-33.0); Mean Corpuscular Volume 87.5 fL (80.0-98.0); NRBC Abs Auto 0.000 X10*3/uL (0.0-0.012); NRBC Pct Auto 0.0 /100WBC (0.0-0.2); Platelet Count 347 X10*3/uL (160-400); Red Blood Count 3.93 X10*6/uL (4.60-5.80); White Blood Count 8.1 X10*3/uL (4.8-10.8)
[2024-12-31 21:36] LABS: Alanine Aminotransferase 103 U/L (0-40); Albumin Level 3.2 g/dL (3.5-5.0); Alkaline Phosphatase 108 U/L (39-117); Anion Gap 14 (12-20); Aspartate Amino Transferase 169 U/L (5-37); Blood Urea Nitrogen 16 mg/dL (9-16); Calcium 8.4 mg/dL (8.4-10.2); Carbon Dioxide 23 mmol/L (22-29); Chloride 107 mmol/L (96-108); Creatinine Clr Calc Pharmacy 85.9; Estimated Glomerular Filt Rate > 60; Potassium 3.9 mmol/L (3.3-5.1); Sodium 140 mmol/L (135-145); Total Protein 5.7 g/dL (6.5-8.0)
--- NOTE | 2024-12-31 22:03 | PC.NURSE ---
PT CPK is elvated-625. PT denies CP or muscle cramping however he does endorse muscle weakness. Notified Dr. Gomez
--- NOTE | 2025-01-01 02:11 | PC.NURSE ---
PT supervised OOB, provided pt with walker with standby asist to bathroom. Stead steady with use of walker. pt complainis of weakness but otherwise offering no complaints. Safety precautions in place- bed alarm on, call francisco within reach. plan of care ongoing
[2025-01-01 06:44] VITALS: BP 103/49; PULSE 58; RESP 20; TEMP 36.5; O2SAT 95
--- NOTE | 2025-01-01 08:50 | PC.NURSE ---
PT A&O X4 VSS states body aches and asking for Tylenol- provider notified. Pt calm cooperative and in NAD. No other complaints at this time. kalen breakfast well.
[2025-01-01 09:17] VITALS: BP 101/51
--- NOTE | 2025-01-01 12:17 | MHC.CM.ED ---
Addendum entered by Beena Victoria 01/01/25 14:23: Still waiting to hear from [facility] and [facility]. [facility] does not have a bed today. May have a bed tomorrow. Is still reviewing. Original Note: Patient remains in ER overflow. Private pay STR referral made. [facility], [facility] and [facility] are able to offer a bed. [facility], [facility] and [facility] are still reviewing. Continue to monitor for d/c needs.
[2025-01-01 14:00] VITALS: BP 97/44; PULSE 61; RESP 18; TEMP 36.5; O2SAT 96
[2025-01-01 14:39] VITALS: BP 97/44
--- NOTE | 2025-01-01 17:14 | PC.NURSE ---
Assumed care of this pt. Minimal assistance required to ambulate to restroom with walker. Endorses R sided hip pain, previously relieved with acetaminophen. Given PRN dose. Ate full dinner tray. Aware of plan for care.
--- NOTE | 2025-01-01 18:12 | MHC.CM.ED ---
4 facilities offering a bed, but want 1 month payment up front. Patient does not have funds to pay over $12,000. No facilities with 2 weeks private pay have offered a bed. CM referred 40 miles out with request for private pay with 2 weeks up front.
[2025-01-01 20:52] VITALS: RESP 18
[2025-01-02] VITALS (7 sets, daily range): BP systolic 102–120; BP diastolic 48–63; PULSE 58–70; RESP 16–17; TEMP 36.2–36.8; O2SAT 95–98
--- NOTE | 2025-01-02 12:48 | MHC.CM.ED ---
Patient remains in ER overflow. [facility] is able to offer a bed for $505/day with 14 days up front ($7,070). This bed offer was presented to patient. Patient questioning if any facilities cheaper are available. [facility] with 14 days up front. Patient accepted this bed and then found out the patient that was supposed to d/c from [facility] was not d/c'ing and no other bed available. Spoke with Chucky via telephone at [phone]. Chucky has already reached out to [facility] to see if they have any availability, even for respite care, until patient can be seen by new PCP and VNA can be arranged. Chucky will be on-site at 3pm. CM will meet with patient and Chucky to determine if patient will privately pay for STR at [facility], privately pay for respite at home or privately pay for care at home. Continue to monitor for d/c needs.
--- NOTE | 2025-01-02 13:00 | PC.NURSE ---
Assumed care of pt approx 0700, A/O x 3 calm and cooperative with care. Denies pain at this time, reports some anxiety and prn ativan given with moderate effect. Tolerating regular diet. Ambulates to bathroom with wheeled walker and minimal assist/supervision. Pending rehab placement..
--- NOTE | 2025-01-02 15:53 | MHC.CM.ED ---
Met with patient and friend/HCP, Chucky in regards to discharge planning. Patient accepts bed at [facility]. Will privately pay. [facility] aware. Will need [facility] PASRR Level 2. Level 1 already submitted by T/W. Continue to monitor for d/c needs.
--- NOTE | 2025-01-02 21:02 | PC.NURSE ---
pt assisted to rest room, medicated per jul.
--- NOTE | 2025-01-03 03:25 | MHC.EDTECH ---
This tech took over care of pt at 0300am, rounds completed, introduced self to pt, ambulated to the bathroom with a 1/assist w/walker and a steady gait,pt urinated,candido-care and back rub given, pt back in bed and repositioned to comfort,bed alarm on for safety,call francisco in reach
[2025-01-03 06:00] VITALS: BP 117/57; PULSE 63; RESP 16; TEMP 36.7; O2SAT 95
--- NOTE | 2025-01-03 06:07 | PC.NURSE ---
medicated per jul, pt in bed with alarm on, call francisco at bedside.
--- NOTE | 2025-01-03 06:13 | MHC.EDTECH ---
Hourly rounds and vitals completed, patient ambulated to the bathroom with a 1 assist, pt urinated, candido-care given., patient is back in bed resting comfortably, bed alarm on for safety,call francisco in reach.
--- NOTE | 2025-01-03 07:54 | MHC.EDTECH ---
This tech assisted the pt to the bathroom, standby with a walker, pt urinated. pt back in back, bed alarm placed, call francisco in reach
--- NOTE | 2025-01-03 07:56 | MHC.EVENTN ---
pt ate 100% of their breakfast. 120cc of juice
--- NOTE | 2025-01-03 07:57 | MHC.EDTECH ---
pt ate 100% of breakfast, 120cc of juice
[2025-01-03 08:51] VITALS: BP 117/57
--- NOTE | 2025-01-03 08:53 | PC.NURSE ---
patient a&ox3, rr equal/non labored, lungs clear, pt ambulatory to bathroom with wheeled walker/stby assist, denies pain/discomfort however is asking for ativan for anxiety- will ask provider for this. pt took meds whole, bed alarm intact/fall precautions maintained, vitals previously stable, call francisco within reach, plan of care ongoing
--- NOTE | 2025-01-03 09:33 | MHC.CM.ED ---
Patient remains in ER overflow. [facility] PASRR Level 2 has been obtained. Patient will d/c to [facility] in [place] via BLS at 11am. Patient, Maria Isabel CHIANG and Nupur linn. Attempted to notify Chucky via telephone at [phone]. Left message with discharge details. Continue to monitor for d/c needs.
--- NOTE | 2025-01-03 10:18 | PC.NURSE ---
[facility] report this nurse attempted to call report to this facility, the phone was answered and I was transferred to a unit where a woman named Juany answered. She placed me on hold, came back and stated the patient is going to [facility] unit not her unit and transferred me to that unit. The phone rang repeatedly and then it stopped ringing and nobody had answered, this nurse will attempt to call the facility again.
[2025-01-03 11:15] VITALS: BP 118/58; PULSE 68; RESP 16; TEMP 36.6; O2SAT 95
--- NOTE | 2025-01-03 11:16 | PC.NURSE ---
this nurse gave report to [facility]- INJECTION MOULDING MACHINE OPERATOR at the facility, she asked for scripts to be sent, however this nurse stated that the patient is currently on their way as the patient was picked up by ems and I had attempted to call multiple times earlier without anybody answering. I did tiger the ED provider asking if any scripts were sent just to let the INJECTION MOULDING MACHINE OPERATOR know but was unable to obtain an answer while still on the phone with the facility.
== END 2025-01-03 11:15 | disposition other institution (70) ==
PROVIDERS: Physician Assistant; Emergency Provider Student in an Organized Health Care Education/Training Program; PCP Physician Assistant Medical
DX: S00.83XA Contusion of other part of head, initial encounter (principal); S00.10XA Contusion of unspecified eyelid and periocular area, initial encounter; S40.022A Contusion of left upper arm, initial encounter; S40.021A Contusion of right upper arm, initial encounter; S80.12XA Contusion of left lower leg, initial encounter; S80.11XA Contusion of right lower leg, initial encounter; W10.8XXA Fall (on) (from) other stairs and steps, initial encounter; Z91.81 History of falling; Y93.89 Activity, other specified; Y92.018 Other place in single-family (private) house as the place of occurrence of the external cause; Y99.8 Other external cause status; F03.90 Unspecified dementia, unspecified severity, without behavioral disturbance, psychotic disturbance, mood disturbance, and anxiety; F60.7 Dependent personality disorder; F32.9 Major depressive disorder, single episode, unspecified; Z79.899 Other long term (current) drug therapy
CPT/HCPCS: 36415; 70450; 70486; 71260; 72125; 74177; 80053; 81001; 82550; 85025; 85610; 93005; 97162; 99285; Q9967

== ENCOUNTER → 2024-12-28 11:33 | Outpatient (BNV) | payer MEDICARE, SELFPAY | PROVIDERS: Emergency Provider Student in an Organized Health Care Education/Training Program; Visit Provider Radiology Diagnostic Radiology | DX: K76.0 Fatty (change of) liver, not elsewhere classified (principal); M50.30 Other cervical disc degeneration, unspecified cervical region; M54.2 Cervicalgia; R22.0 Localized swelling, mass and lump, head | CPT/HCPCS: 70450; 70486; 71260; 72125; 74177 ==

== ENCOUNTER → 2024-12-28 11:33 | Outpatient (BNV) | payer MEDICARE, SELFPAY | PROVIDERS: Emergency Provider Student in an Organized Health Care Education/Training Program; Visit Provider Internal Medicine | DX: R94.31 Abnormal electrocardiogram [ECG] [EKG] (principal); W10.8XXA Fall (on) (from) other stairs and steps, initial encounter | CPT/HCPCS: 93010 ==

== ENCOUNTER 2025-01-14 14:49 | Outpatient (AMB) | payer MEDICARE, SELFPAY ==
--- OUTSIDE RECORDS SUMMARY | 2015-10-02 | XMS_ITS | Encounter Summary ---
Author Organization [facility] Address [address] [place] [address] Phone Care Team Providers Care Qa Engineer Name Role Phone Scott Quiroz MD Primary Care Provider [phone] Hernan Arzola MD Unavailable [facility] [email or web address] [email or web address] Hoang Mitchell MD Unavailable [phone] Encounter Details Date Type Department Care Team (Late st Contact Info) Description 10/02/2015 Hospital Encounter [facility] [address] [place] [address] Teddy Alas MD [address] [place] [phone] [email or web address] Social History Tobacco Use Types Packs/Day [...] 05/04/2024 8:36 PM Dayo Manriquez, MARIIA * [place] Suicide Severity Rating Scale (Screener/Recent Self-Report) Question Answer Date of Assessment Author 1. Wish to be (Past 1 Month) No 024 8:36 PM Dayo Manriquez, RN 2. Non-Specific Active Suici euniec Thoughts (Past 1 Month) No 05/04/2024 8:36 [...] (No Interpretation) (10/02/2015 12:00 AM EDT) Narrative [facility] [place]G INTERFACES - 10/06/2015 10:46 AM EDT This study is for PACS storage only and not for interpretation. Procedure Note SYSTEMGENERATED, DOCUMENTATION - 10/06/2015 This study is for PACS storage only and not for interpretation. us Teddy Alas MD IMG OUTSIDE IMAGING W/ OUT INTERPRETATION Final Result [facility] documented in this encounter Visit Diagnoses Not on filedocumented in this encounter Additional Health Concerns Infection Onset Date Last Indicated Resolved Time CoV-Risk 03/04/2021 03/04/2021 03/14/2021 1:22 AM EDT documented as of this encounter Care Teams Qa Engineer Relationship Specialty Start Date End Date Scott Quiroz MD [address] [address] [email or web address] PCP - General 11/19/13 04/09/17 Hernan Arzola MD [email or web address] Internal Medicine 10/02/15 10/20/20 Hoang Mitchell MD [address] [place] [address] [address]_[place] [address] [email or web address] Consulting Provider Rheumatology 10/02/15 documented as of this encounter Additional Source Comments The information contained in this document represents components of the legal health record. It is not the complete legal health record.[facility]
--- NOTE | 2025-01-14 14:54 | A.OFFPC_ITS ---
Vital Signs 01/14/25 15:09 Height 5 ft 2.8 in Weight 146 lb 4 oz BMI 26.1 BP 114/56 L Blood Pressure Location Lt brachial Position Sitting Respiration 16 Pulse 103 H Pulse Source Pulse Oximeter Temp 97.3 F Temp Source Temporal Artery Scan Pulse Oximetry (%) 97 Oxygen Delivery Method Room Air Intake Visit Reasons: Est. Care/TCM 01/03 Intake Note: Visit Reason: TCM Intake Note: Patient is here for hospital discharge follow up. Patient [facility] [place] [facility] Attendant Required: No Building Construction Supervisor: Not Required per policy Accompanied by: Self / Same As Patient Allergies ciprofloxacin (From CIPRO) Allergy (Unknown, Verified 01/14/25 15:28) DIARRHEA Morpholine Analogues Allergy (Unknown, Verified 01/14/25 15:28) Unknown amoxicillin Allergy (Verified 01/14/25 15:28) Nausea meperidine Allergy (Verified 01/14/25 15:28) Unknown pollen extracts Allergy (Verified 01/14/25 15:28) Unknown Medication List - Last Reconciled 01/14/25 by Angelia Montoya PA-C clomipramine 25 mg PO DAILY diazepam (Valium) 1 mg PO BID PRN famotidine 20 mg PO DAILY 30 days lorazepam 0.5 mg PO Q6H PRN midodrine 5 mg PO TID@0900,1500,1800 30 days olanzapine 2.5 mg PO TID omeprazole 20 mg PO DAILY@0630 30 days sertraline 200 mg (2 x 100 mg) PO DAILY 30 days zolpidem 5 mg PO BEDTIME Tobacco use date assessed: 01/14/25 Fall risk assessment: 2 + Falls in past year Last assessed Fall Risk: 01/14/25 Dental Screening Dental Screen Date: 01/14/25 Did you have a dental visit in the last 12 months?: No Did you have a dental problem in the last 6 months where you did not have access to dental care?: No Was dental information given to patient?: Patient has dentist HPI HPI Comments History of Present Illness Details Patient presents to the office for a TCM visit. Date of admission: 12/28/2024 Date of discharge: 01/06/2025 This is a Follow-up from admission at [facility] Emergency Department observation unit HPI/hospital course/discharge summary: The patient is a 74-year-old male presenting for a discharge hospital follow-up and to establish care with a new primary care provider. He was admitted to [facility] in the emergency department in the observation unit, for mood disturbances and anxiety, where he was diagnosed with major neurocognitive disorder due to another medical condition, generalized anxiety disorder, dependent personality disorder, panic disorder, and a moderate episode of recurrent major depressive disorder. The patient was unable to make decisions about medical treatment due to impaired mental capacity at the time of admission. None of the patient's medications were changed. Patient was discharged to [facility] in [place]. Russel who patient's friend is at bedside. The patient has a history of tracheal stenosis, which requires periodic dilation. He also experiences hearing loss in the left ear, which is not amenable to hearing aids. The patient reports ongoing anxiety and feels that his current medications are not sufficiently managing his symptoms. He denies any thoughts of self-harm or experiencing auditory or visual hallucinations. Discharged to/Current Location: [facility] in [place] Lives with: Being discharged Monday to go home, lives alone at home Diagnosis: Dementia and other diseases classified elsewhere, unspecified severity, without behavioral disturbances, psychotic disturbance, mood disturbance and anxiety. Major neuro cognitive disorder due to another medical condition. Dependent personality disorder. Generalized anxiety disorder. Panic disorder. Unable to make decisions about medical treatments due to impaired mental capacity. Moderate episode of recurrent major depressive disorder. Procedures performed: No procedures were performed New medications: No medications were added Discontinued medications: No medications were discontinued Change medications/dosing: No medications were changed Pending labs: There are no pending labs Pending diagnostic test: There are no pending diagnostic test Any Follow-up Labs required? There are no follow-up labs required Any Follow-up Diagnostic test required? There are no follow-up diagnostic test required How are you feeling? Patient reports he still feels very depressed and anxious still although feel a bit better on medications Are you in any pain or discomfort? No pain or discomfort Do you have any questions about your condition or discharge instructions? Not at this time Were you able to get your medications filled? yes Do you have any questions about your medications? He feel's like the medications aren't strong enough for the anxiety. No SI/HI/AVH. Any referrals required? Patient is interested in [facility], NUCLEAR MEDICINE SUPERVISOR and meals on wheels although we are going to figure out if [facility] in [place] will be setting this up for the patient before discharge on Monday Were you able to schedule your follow-up appointment? Patient was able to sched ule follow-up visits Educational need/resources: What support system do you have? Jose Allen Social History - Housing: The patient plans to reside a lone after discharge from the rehabilitation center. [facility] Medical History (Updated 01/14/25 @ 17:21 by Angelia Montoya PA-C) Panic attacks Major neurocognitive disorder Hospital discharge follow-up Orthostatic hypotension Personality disorder Depression, major, severe recurrence Transgender Hard of hearing Tracheal stenosis Family History Father Heart disease Social History Household Members: None Housing: House Do you presently have visiting nurse or other home services: No Alcohol intake: current Alcohol intake frequency: does not drink Patient Tobacco Use Status: Former Tobacco user e-Cigarette/Vaping Use: Never Used Second Hand Smoke Exposure: No service: No Current occupational status: retired Sexual orientation: Straight/Heterosexual Cognitive needs: No Hearing needs: No Vision needs: Yes (rx glasses) Questionnaire PHQ-9 Over the last 2 weeks, how often have you been bothered by any of the following problems? 1. Little interest or pleasure in doing things: nearly every day 2. Feeling down, depressed, or hopeless: more than half the days 3. Trouble falling or staying asleep, or sleeping too much: more than half the days 4. Feeling tired or having little energy: nearly every day 5. Poor appetite or overeating: not at all 6. Feeling bad about yourself - or that you are a failure or have let yourself or your family down: more than half the days 7. Trouble concentrating on things, such as reading the newspaper or watching television: nearly every day 8. Moving or speaking so slowly that other people could have noticed. Or the opposite - being so fidgety or restless that you have been moving around a lot more than usual: not at all 9. Thoughts that you would be better off or of hurting yourself in some way: not at all Total score: 15 Depression Screening Interpretation: Positive Depression Screening Follow-up: Existing condition and In treatment Depression Screening Done: Yes 31074 - PHQ-9 Billing: Yes Source: Developed by Drs. Shamar Weller, Dai Weldon, Carter Le and colleagues, with an educational rush from [employer]. Thrive Questionnaire Date Thrive assessed: 10/04/24 I am a: Patient What is your living situation today?: I have a steady place to live Within the past 12 months, did the food you bought not last and you didn't have the money to get more?: Never true Within the past 12 months, did you worry whether your food would run out before you got money to buy more?: Never true Do you have trouble paying for medicines?: No Do you have trouble getting transportation to medical appointments?: No Do you have trouble paying your heating and electricity bill?: No Do you have trouble taking care of your child, family member or friend?: No Do you have trouble with day-to-day activities such as bathing, preparing meals, shopping, managing finances, etc.?: No Are you currently unemployed and looking for a job?: No Are you interested in more education?: No Please select the resources that you would like help with: None Currently or been in a relationship where the following occur: No concerns reported THRIVE Score: 0 AUDIT C Alcohol Use Questionnaire (AUDIT-C) 1. How often do you have a drink containing alcohol?: Never 3. How often do you have six or more drinks on one occasion?: Never Total Score: 0 Score Reviewed/Action Taken: No MILKA-7 AMB Questionnaire MILKA-7 Date MILKA - 7 assessed: 01/14/25 Feeling nervous, anxious, or on edge: 3 = Nearly every day Not being able to stop or control worryin = Nearly every day Worrying too much about different things: 3 = Nearly every day Trouble relaxin = Nearly every day Being so restless that it is hard to sit still: 3 = Nearly every day Becoming easily annoyed or irritable: 0 = Not at all Feeling afraid as if something awful might happen: 2 = More than half the days Total MILKA-7 score (0-4 normal; 5-9 mild; 10-14 moderate; 15-21 severe): 17 Source: Developed by Dai Enrique Kurt Kroenke and colleagues, with an educational rush from [employer]. MILKA-7 Assessment Billing MILKA-7 Assessment Tool: MILKA-7 Assessment 70397 Review of Systems Const Details: - Psychiatric: Reports anxiety. Denies thoughts of self-harm, auditory or visual hallucinations. - Respiratory: Denies dyspnea. - Gastrointestinal: Reports stomach aches after eating. Denies abdominal pain. - Cardiovascular: Denies chest pain. - Neurological: Denies dizziness or balance issues. All systems reviewed & are unremarkable except as noted in HPI and below Physical exam (Primary Care) Vital Signs: Last Vital Signs Temp 97.3 F 01/14/25 15:09 Pulse 103 H 01/14/25 15:09 Resp 16 01/14/25 15:09 BP 114/56 L 01/14/25 15:09 Pulse Ox 97 01/14/25 15:09 Oxygen Delivery Method Room Air 01/14/25 15:09 Vitals signs have been reviewed. Care Plan Goal for BP management: <140/90 at Goal BMI result Body Mass Index 26.1 BMI Assessment/Plan discussion: High BMI High, discussed plan: lifestyle, weight reduction, dietary, physical activity, alcohol moderation and other Tobacco/Smoking Status: Tobacco use Status Tobacco use date assessed 01/14/25 01/14/25 15:01 Patient Tobacco Use Status Former Tobacco user 01/14/25 15:17 Tobacco use type 01/14/25 15:17 e-Cigarette/Vaping Use Never Used 01/14/25 15:05 PHQ-9: PHQ-9 Score PHQ-9: Total score 15 01/14/25 15:17 Depression Screening Interpretation: Positive Depression Screening Follow-up: Existing condition and In treatment Thrive Assessment: Date of Thrive Assessment Date Thrive assessed 10/04/24 01/14/25 14:55 Currently or been in a relationship where the following occur: No concerns reported Const Other: Appearance: Alert. Oriented X3. No acute distress. Head: Normal external exam. Normocephalic. Atraumatic. Eyes: Pupils are equal, round, and reactive to light. Extraocular movements intact. Conjunctiva and sclera normal. Eyelids normal. Ears: External auditory canal normal. Tympanic membranes normal. Deaf on left ear. Throat: Pharynx normal. Uvula midline. Moist mucous membranes. Neck: Normal inspection. Neck supple. Full range of motion. No adenopathy. Thyroid Normal. No meningeal signs. No neck mass noted. Cardiovascular: Normal heart rate and rhythm. Heart sound normal. No murmurs noted. Pulses normal throughout. Respiratory: No respiratory distress. Painless inspiration. Breath sounds normal. No wheezes/rales/rhonchi noted. Chest nontender. No accessory muscle usage noted or decreased air movement noted. History of tracheal stenosis requiring dilation. Abdomen: Soft and nontender. No distention noted. No organomegaly noted. Back: No costovertebral angle tenderness. Full range of motion noted. Skin: Skin warm and dry. Normal skin color. Normal skin turgor. No rashes/lesions/lacerations noted. Extremities: No lower extremity edema. Extremities exhibit normal range of motion. Neuro: Oriented X 3. No motor deficit. No sensory deficit. Reflexes normal. Results Reviewed Results Reviewed: - Labs: Blood work showed no evidence of UTI, normal white blood cell count, normal platelet count, normal coagulation studies, no evidence of kidney disease or electrolyte abnormality, mildly elevated liver enzymes attributed to fatty liver, no evidence of renal failure. - Imaging: EKG showed normal sinus rhythm. No fractures on brain, cervical spine, facial bones, thoracic, intrathoracic, or intraabdominal findings. Coding Level of Care Code TCM High MDM <= 14 days Complex EM visit Add On G2211 Diagnoses Hospital discharge follow-up Z09 Major neurocognitive disorder F03.90 Generalized anxiety disorder with panic attacks F41.1; F41.0 Dependent personality disorder F60.7 Panic attacks F41.0 MDD (major depressive disorder), recurrent episode, moderate F33.1 Tracheal stenosis J39.8 Hard of hearing H91.90 Additional Codes PHQ-9 - 25903 - PHQ-9 Billing: Yes ([id number]) MILKA-7 Assessment Billing - MILKA-7 Assessment Tool: MILKA-7 Assessment 89930 ([id number]) Time Spent (min) 60 Assessment & Plan Assessment & Plan (1) Hospital discharge follow-up: Code(s): Z09 - Encounter for follow-up examination after completed treatment for conditions other than malignant neoplasm Category: Medical (2) Major neurocognitive disorder: Code(s): F03.90 - Unspecified dementia, unspecified severity, without behavioral disturbance, psychotic disturbance, mood disturbance, and anxiety Category: Medical Plan: The patient was admitted to the psychiatric unit for mood disturbances and anxiety, diagnosed with major neurocognitive disorder due to another medical condition. Follow-up with Geovanna Lozano APRN psychiatrist, is planned for January. Condition is chronic and stable will continue to monitor. (3) Generalized anxiety disorder with panic attacks: Code(s): F41.1 - Generalized anxiety disorder; F41.0 - Panic disorder [episodic paroxysmal anxiety] Category: Medical Plan: The patient reports ongoing anxiety and feels that his current medications are not sufficiently managing his symptoms. No thoughts of self-harm or hallucinations were reported. Will continue current treatment regimen. Condition is chronic and stable continue to monitor. (4) Dependent personality disorder: Code(s): F60.7 - Dependent personality disorder Category: Medical Plan: Condition is chronic and stable continue to monitor. (5) Panic attacks: Code(s): F41.0 - Panic disorder [episodic paroxysmal anxiety] Category: Medical Plan: Condition is chronic and stable continue to monitor. (6) MDD (major depressive disorder), recurrent episode, moderate: Code(s): F33.1 - Major depressive disorder, recurrent, moderate Category: Medical Plan: Condition is chronic and stable will continue to monitor. (7) Tracheal stenosis: Code(s): J39.8 - Other specified diseases of upper respiratory tract Category: Medical Plan: The patient has a history of tracheal stenosis requiring periodic dilation. Condition is chronic and stable continue to monitor. (8) Hard of hearing: Code(s): H91.90 - Unspecified hearing loss, unspecified ear Category: Medical Plan: The patient experiences hearing loss in the left ear, which is not amenable to hearing aids. Condition is chronic and stable will continue to monitor. Plan Plan Patient was informed and verbally consented to the use of an ambient scribe for clinic note documentation during this visit. 1. Major Neurocognitive Disorder Due To Another Medical Condition The patient was admitted to the psychiatric unit for mood disturbances and anxiety, diagnosed with major neurocognitive disorder due to another medical condition. Follow-up with Geovanna Lozano APRN psychiatrist, is planned for January. 2. Generalized Anxiety Disorder The patient reports ongoing anxiety and feels that his current medications are not sufficiently managing his symptoms. No thoughts of self-harm or hallucinations were reported. 3. Dependent Personality Disorder The patient has been diagnosed with dependent personality disorder during his admission. 4. Panic Disorder The patient was diagnosed with panic disorder during his recent hospital admission. 5. Recurrent Major Depressive Disorder, Moderate Episode The patient was diagnosed with a moderate episode of recurrent major depressive disorder during his recent hospital admission. 6. Tracheal Stenosis The patient has a history of tracheal stenosis requiring periodic dilation. 7. Hearing Loss In The Left Ear The patient experiences hearing loss in the left ear, which is not amenable to hearing aids. During the visit, I discussed the patient's recent hospital admission for mood disturbances and anxiety, which led to diagnoses including major neurocognitive disorder and generalized anxiety disorder. We reviewed the importance of follow- up with Goevanna Lozano APRN psychiatrist, scheduled for January, to manage these conditions. The patient expressed concerns about the effectiveness of his current medications for anxiety, and we discussed monitoring his symptoms closely. Patient Instructions: - Follow up with Geovanna Lozano APRN psychiatrist, in January. - Monitor anxiety symptoms and report any changes or concerns. - Ensure medications are taken as prescribed and discuss any issues with effectiveness. - Plan for discharge from the rehabilitation center and ensure support systems are in place.
[2025-01-14 15:09] VITALS: BP 114/56; PULSE 103; RESP 16; TEMP 36.3; O2SAT 97; BMI 26.1
--- OUTSIDE RECORDS SUMMARY | 2025-01-14 15:42 | XMS_ITS | Encounter Summary ---
Author Organization [facility] Address [address] [facility] [address] [place] [phone] Phone Care Team Providers Care Test And Turn Up Technician Name Role Phone Honag Mitchell MD Unavailable [phone] Aaron Collins MD Unavailable [phone] Unknown, Unknown Primary Care Provider Mee Beyer MBBS Unavailable [phone] Pcp, Unknown Primary Care Provider Unavailabl e Encounter Details Date Type Department Care Team (Late st Contact Info) Description 05/19/2023 Procedure Pass [facility] Periop [address] [place] [address] Social History Tobacco Use Types Packs/Day Years [...] with a working camera? Not on file Comments Unknown Sex and Gender Information Value Date Recorded Sex Assigned at Female 03/18/2019 2:26 PM EDT Legal Sex Male 10:39 AM EDT Gender Identity Transgender Male 03/18/2019 2:26 PM EDT Sexual Orientation Straight 03/18/2019 2: 26 PM EDT documented as of this encounter Functional Status * Patient is deaf or has serious difficulty with hearing Answer Date of Assessment Author No 10/01/2016 8:00 AM EDT Alma Hair MD * Patient is blind or has serious difficulty with seeing, even when wearing glasses Answer Date of Assessment Author No 10/01/2016 8:00 AM EDT Alma Hair MD * Patient has serious difficulty walking or climbing stairs (5yr old or older) Answer Date of Assessment Author No 10/01/2016 8:00 AM EDT Alma Hair MD * Patient has serious difficulty dressing or bathing (5yr old or older) Answer Date of Assessment Author No 10/01/2016 8:00 AM EDT Alma Hair MD * Patient has serious difficulty doing errands alone such as visiting a doctor???s office or shopping, due to physical, mental, or emotional condition (15 years old or older) Answer Date of Assessment Author No 10/01/2016 8:00 AM EDT Alma Hair MD documented as of this encounter Mental Status * Patient has serious difficulty concentrating, remembering, or making decisions due to physical, mental, or emotional condition Answer Entry Date Author No 10/01/2016 8:00 AM ABIGAILT Alma Hair MD documented in this encounter Plan of Treatment Not on file documented as of this encounter Visit Diagnoses Not on filedocumented in this encounter Additional Health Concerns Assessment Noted Time PHQ-2 Depression Total Score: 2 08/31/19 23 1:37 PM EDT documented as of this encounter Care Teams Test And Turn Up Technician Relationship Specialty Start Date End Date Unknown, Unknown, MD PCP - General 08/01/23 08/16/23 Pcp, Unknown PCP - General 09/19/23 07/24/24 Hoang Mitchell MD [address] [place] [address] [address] [address] [email or web address] Consulting Provider Rheumatology 10/02/15 Aaron Collins MD [address] [address] [email or web address] Primary Oncologist Hematology and Oncology 11/30/2208/23 Mee Badillo MBBS [email or web address] Primary Oncologist Medical Oncology 08/25/23 documented as of this encounter Additional Source Comments The information contained in this document represents components of the legal health record. It is not the complete legal health record.[facility]
--- OUTSIDE RECORDS SUMMARY | 2025-01-14 15:42 | XMS_ITS | Encounter Summary ---
Author Organization [employer] Address [address] [facility] [address] [place] [address] Care Team Providers Care Hydraulic Lift Operator Name Role Phone Unavailable Primary Care Provider [...]
--- OUTSIDE RECORDS SUMMARY | 2025-01-14 15:42 | XMS_ITS | Encounter Summary ---
Author Organization [facility] Address [address] [place] [address] Phone Care Team Providers Care Cardiac Rehabilitation Program Director Name Role Phone Hoang Mitchell MD Unavailable [phone] Mee Badillo MBBS Unavailable [phone] Pcp, Unknown Primary Care Provider Unavailabl e Encounter Details Date Type Department Care Team (Late st Contact Info) Description 10/06/2023 Procedure Pass [facility] Admitting Dept Virtual Department [address] [place] [address] Social History Tobacco Use Types Packs/Day Years [...] a working camera? Not on file Comments No Sex and Gender Information Value [...] of Assessment Author No 10/01/2016 8:00 AM Alma Jackson MD documented as of this encounter Mental Status * Patient has serious difficulty concentrating, remembering, or making decisions due to physical, mental, or emotional condition Answer Entry Date Author No 10/01/2016 8:00 AM Alma Jackson MD documented in this encounter Plan of Treatment Not on file documented as of this encounter Visit Diagnoses Not on filedocumented in this encounter Additional Health Concerns Assessment Noted Time PHQ-2 Depression Total Score: 2 08/31/19 23 1:37 PM EDT documented as of this encounter Care Teams Cardiac Rehabilitation Program Director Relationship Specialty Start Date End Date Pcp, Unknown PCP - General 09/19/23 07/24/24 Hoang Mitchell MD [address] [place] [address]_[place] [address] [email or web address] Consulting Provider Rheumatology 10/02/15 Mee Badillo MBBS [address] [place] [address]_[place] [address] [email or web address] Primary Oncologist Medical Oncology 08/25/23 documented as of this encounter Additional Source Comments The information contained in this document represents components of the legal health record. It is not the complete legal health record.[facility]
--- OUTSIDE RECORDS SUMMARY | 2025-01-14 15:42 | XMS_ITS | Encounter Summary ---
Author Organization [facility] Address [address] [facility] [address] [place] [address] Phone Care Team Providers Care Financial Services Officer Name Role Phone Hoang Mitchell MD Unavailable Scott Quiroz MD Primary Care Provider Aaron Collins MD Unavailable Unknown, Unknown Primary Care Provider Mee Beyer MBBS Unavailable Pcp, Unknown Primary Care Provider Unavailabl e Encounter Details Date Type Department Care Team (Latest Contact Info) Description 09/09/2021 Transcribe Orders Virtual Department 30 [place] [address] Scott Quiroz MD [address] [place] [address] [phone] [email or web address] Pre-procedure lab exam (Primary Dx) Social History Tobacco Use Types Packs/Day Years Used Date Smoking Tobacco: Former Cigarettes 1.5 10 0 05/22/1963 - 05/22/1973 Smokeless Tobacco: Never Alcohol Use Standard Drinks/Week Comments No 0 (1 standard drink = 0.6 oz pur e alcohol) Recovery Sober for 35 yrs Comments Unknown Sex and Gender Information [...] Entry Date Author No 10/01/2016 8:00 AM EDT Alma Hair MD documented in this encounter Plan of Treatment Not on file documented as of this encounter Results * COVID-19 PCR Order (09/12/2021 2:58 PM EDT) COVID-19 Comment [id number] [facility] COVID Testing Status Specimen received in analyzing lab. Results should be available within 24 to 48 hrs. [facility] Other 09/12/2021 2:58 PM EDT 09/12/2021 5:47 PM EDT us Scott Quiroz MD BODY FLUIDS AND STOOLS ORDER PORTIA Final Result [facility] [address] [place] [address] [address] documented in this encounter Visit Diagnoses Diagnosis Pre-procedure lab exam- Primary Pre-procedural laboratory examination documented in this encounter Care Teams Financial Services Officer Relationship Specialty Start Date End Date Scott Quiroz MD [address] [address] [email or web address] PCP - General Internal Medicine 10/24/17 12/19/22 Unknown, Unknown, MD PCP - General 08/01/23 08/16/23 Pcp, Unknown PCP - General 09/19/23 07/24/24 Hoang Mitchell MD [address] [place] [address] 501_[place] [address] [email or web address] Consulting Provider Rheumatology 10/02/15 Aaron Collins MD [address] [place] [address] [email or web address] Primary Oncologist Hematology and Oncology 11/30/2208/23 Mee Badillo MBBS [email or web address] Primary Oncologist Medical Oncology 08/25/23 documented as of this encounter Additional Source Comments The information contained in this document represents components of the legal health record. It is not the complete legal health record.[facility]
--- OUTSIDE RECORDS SUMMARY | 2025-01-14 15:42 | XMS_ITS | Encounter Summary ---
Author Organization [facility] Address [address] [place] [address] Phone Care Team Providers Care Solar Site Assessment Specialist Name Role Phone Hernan Arzola MD Unavailable city [email or web address] Hoang Mitchell MD Unavailable [phone] [place] Montoya MD Unavailable [phone] Hernan Arzola MD Unavailable city [email or web address] [email or web address] Scott Quiroz MD Unavailable [phone] Gabriel Malik MD Unavailable Scott Quiroz MD Primary Care Provider Aaron Collins MD Unavailable Unknown, Unknown Primary Care Provider Mee Beyer [facility] Unavailable [phone] Pcp, Unknown Primary Care Provider Unavailabl e Reason for Referral * Physical Therapy (Routine) - Closed Specialty Diagnoses / Procedures Referred By Contpedro t Referred To Contact Physical Therapy Diagnoses Encounter for rehabilitation Pelvic Floor Procedures Evaluate & Treat Ketan Head MD Phone: tel: fax: mailto:[email or web address] [address] [address] Phone: tel: Referral ID Status Reason Start Date Expiration Date Visits Re quested Visits Authorized [id number] Closed 05/24/2018 05/21/2020 99 99 Encounter Details Date Type Department Care Team (Latest Contact Info) Description 03/19/2019 Transcribe Orders [facility] [address] [place] [address] Ketan Head MD [address] [place] [address], [place] [address] [email or web address] Encounter for rehabilitation (Primary Dx) Social History Tobacco Use Types [...] documented in this encounter Plan of Treatment Scheduled Referrals Name Type Priority Associated Diagnoses Orde r Schedule Ambulatory referral to [facility] Physical Therapy Outpatient Referral Routine Encounter for rehabilitation Ordered: 03/19/2019 documented as of this encounter Visit Diagnoses Diagnosis Encounter for rehabilitation- Primary documented in this encounter Additional Health Concerns Infection Onset Date Last Indicated Resolved Time CoV-Risk 03/04/2021 03/04/2021 03/14/2021 1:22 AM EDT documented as of this encounter Care Teams Solar Site Assessment Specialist Relationship Specialty Start Date End Date Scott Quiroz MD [address] [place] [address] [email or web address] PCP - General Internal Medicine 10/24/17 12/19/22 Unknown, Kandy, PCP - General 08/01/23 08/16/23 Pcp, Unknown PCP - General 09/19/23 07/24/24 Hernan Arzola MD [email or web address] Internal Medicine 10/02/15 10/20/20 Hoang Mitchell MD [address] [place] [address] [address] [address] [email or web address] Consulting Provider Rheumatology 10/02/15 [place] Montoya MD [address] [place] [address] [email or web address] Historical LMR Provider 03/06/17 05/29/21 Hernan Arzola MD [email or web address] Historical LMR Provider 03/06/17 10/20/20 Scott Quiroz MD [address] [address] [email or web address] Historical LMR Provider 03/06/17 10/20/20 Gabriel Malik MD [address] [facility] [address] [place] [address] Historical LMR Provider 03/06/17 2 Aaron Collins MD [facility] [address] [address] [email or web address] Primary Oncologist Hematology and Oncology 11/30/2208/23 Mee Badillo MBBS [email or web address] Primary Oncologist Medical Oncology 08/25/23 documented as of this encounter Additional Source Comments The information contained in this document represents components of the legal health record. It is not the complete legal health record.[facility]
--- OUTSIDE RECORDS SUMMARY | 2025-01-14 15:42 | XMS_ITS | Encounter Summary ---
Author Organization [facility] Address [address] [place] [address] [place] [address] Phone Care Team Providers Care Process Server Name Role Phone Hernan Arzola MD Unavailable [email or web address] Hoang Mitchell MD Unavailable [phone] [place] Montoya MD Unavailable [phone] Hernan Arzola MD Unavailable [facility] Scott Quiroz MD Unavailable [phone] Gabriel Malik MD Unavailable [phone] Scott Quiroz MD Primary Care Provider Aaron Collins MD Unavailable [phone] Unknown, Unknown Primary Care Provider Mee Beyer Unavailable Pcp, Unknown Primary Care Provider Unavailabl e Encounter Details Date Type Department Care Team ([facility] st Contact Info) Description 02/13/2019 Ancillary Orders Virtual Department 30 [place], [place] [id number] Scott Quiroz MD [address] [place] [address] [phone] [email or web address] Frequent urination Social History Tobacco Use Types Packs/Day Years [...] documented as of this encounter Results * US Bladder (02/13/2019 2:26 PM EDT) Anatomical Region Laterality Modality Abdomen, Kidney Ultrasound 02/13/2019 2:48 PM EDT Impressions 02/13/2019 2:50 PM EDT Mildly distended urinary bladder with 31.5% residual, 30 mL remaining. No bladder wall thickening or mass. POS - [id number] Narrative 02/13/2019 2:50 PM EDT US BLADDER HISTORY: FREQUENT URINATION COMPARISON: CT 01/31/2017. TECHNIQUE: Grayscale and color Doppler ultrasound imaging of the bladder. FINDINGS: There is no bladder wall thickening, mass or calculus. Normal ureteral jets demonstrated bilaterally. Prevoid bladder volume is 94.9 mL, minimally distended. Post void bladder residual is 30.0 mL (31.5% remaining). Procedure Note Rianna Velásquez MD - 02/13/2019 US BLADDER HISTORY: FREQUENT URINATION COMPARISON: CT 01/31/2017. TECHNIQUE: Grayscale and color Doppler ultrasound imaging of thebladder. FINDINGS: There is no bladder wall thickening, mass or calculus. Normal ureteral jets demonstrated bilaterally. Prevoid bladder volume is 94.9 mL, minimally distended. Post void bladderresidual is 30.0 mL (31.5% remaining). IMPRESSION: Mildly distended urinary bladder with 31.5% residual, 30 mL remaining. No bladder wall thickening or mass. POS - [id number] Scott Quiroz MD [facility] US RENAL Final Result documented in this encounter Visit Diagnoses Diagnosis Frequent urination Urinary frequency Frequent urination Urinary frequency documented in this encounter Additional Health Concerns Infection Onset Date Last Indicated Resolved Time CoV-Risk 03/04/2021 03/04/2021 03/14/2021 1:22 AM EDT documented as of this encounter Care Teams Process Server Relationship Specialty Start Date End Date Scott Quiroz MD [address] [place] [address] [email or web address] [email or web address] memorial district [email or web address] PCP - General Internal Medicine 10/24/17 12/19/22 Unknown, MD Kandy PCP - General 08/01/23 08/16/23 Pcp, Unknown PCP - General 09/19/23 07/24/24 Hernan Arzola MD [email or web address] Internal Medicine 10/02/15 10/20/20 Hoang Mitchell MD [address] [place] [address] 501_[place] [address] [email or web address] Consulting Provider Rheumatology 10/02/15 [place] Montoya MD [address] [place] [address] 2[address] [place] [address] [email or web address] Historical LMR Provider 03/06/17 05/29/21 Hernan Arzola MD [email or web address] Historical LMR Provider 03/06/17 10/20/20 Scott Quiroz MD [address] [place] [address] [email or web address] Historical LMR Provider 03/06/17 10/20/20 Gabriel Malik MD 3500 [facility] [address] [place] [address] Historical LMR Provider 03/06/17 [place] [address] [place] [address] [email or web address] Primary Oncologist Hematology and Oncology 11/30/2208/23 Mee Badillo MBBS [email or web address] Primary Oncologist Medical Oncology 08/25/23 documented as of this encounter Additional Source Comments The information contained in this document represents components of the legal health record. It is not the complete legal health record.[facility]
--- OUTSIDE RECORDS SUMMARY | 2025-01-14 15:42 | XMS_ITS | Encounter Summary ---
Author Organization [employer] Address [address] [facility] 7t [place] [address] Care Team Providers Care Inseam Trimmer Name Role Phone Unavailable Primary Care Provider Unavailabl e Encounter Details Date Type Department Care Team (Late st Contact Info) Description 07/30/2024 [facility] [address] [place] [address] Chaparrita Starr Social History Tobacco Use Types [...]
--- OUTSIDE RECORDS SUMMARY | 2025-01-14 15:42 | XMS_ITS | Encounter Summary ---
Author Organization [facility] Address [address] [place] [address] [place] [address] Phone Care Team Providers Care Labourers Name Role Phone Hernan Arzola MD Unavailable api [email or web address] Hoang Mitchell MD Unavailable [phone] [place] Montoya MD Unavailable [phone] Hernan Arzola MD Unavailable [facility] [email or web address].[facility] Scott Quiroz MD Unavailable Gabriel Malik MD Unavailable Scott Quiroz MD Primary Care Provider Aaron Collins MD Unavailable Unknown, Unknown Primary Care Provider Mee Beyer Unavailable [phone] Pcp, Unknown Primary Care Provider Unavailabl e Encounter Details Date Type Department Care Team (Late st Contact Info) Description 04/24/2020 Transcribe Orders [facility] Rehabilitation Services [address] [place] [address] Unknown, Unknown, Social History Tobacco Use Types Packs/Day Years [...] documented as of this encounter Care Teams Labourers Relationship Specialty Start Date End Date Scott Quiroz MD [address] [place] [address] [email or web address] PCP - General Internal Medicine 10/24/17 12/19/22 Unknown, Unknown, PCP - General 08/01/23 08/16/23 Pcp, Unknown PCP - General 09/19/23 07/24/24 Hernan Arzola MD [email or web address] Internal Medicine 10/02/15 10/20/20 Hoang Mitchell MD [address] [place] [address] 501_[place] [address] [email or web address] Consulting Provider Rheumatology 10/02/15 [place] Montoya MD [address] [place] [address] [email or web address] Historical LMR Provider 03/06/17 05/29/21 Hernan Arzola MD [email or web address] Historical LMR Provider 03/06/17 10/20/20 Scott Quiroz MD [address] [place] [address] [email or web address] Historical LMR Provider 03/06/17 10/20/20 [place] [address] [place] [address] Historical LMR Provider 03/06/17 Aaron Hardy MD [address] [place] [address] [email or web address] Primary Oncologist Hematology and Oncology 11/30/2208/23 Mee Badillo MBBS [email or web address] Primary Oncologist Medical Oncology 08/25/23 documented as of this encounter Additional Source Comments The information contained in this document represents components of the legal health record. It is not the complete legal health record.[facility]
--- OUTSIDE RECORDS SUMMARY | 2025-01-14 15:42 | XMS_ITS | Encounter Summary ---
Author Organization [facility] Address [address] [facility] [address] [place] [address] Phone Care Team Providers Care Sports Centre Manager Name Role Phone Hoang Mitchell MD Unavailable [phone] Aaron Collins MD Unavailable [phone] Unknown, Unknown Primary Care Provider Mee Beyer MBBS Unavailable [phone] Pcp, Unknown Primary Care Provider Unavailabl e Encounter Details Date Type Department Care Team (Latest Contact Info) Description 05/02/2023 Transcribe Orders [facility] Laboratory [address] [place] [address] Meem Gordillo MD [address] [facility], [address] [place] [address] [email or web address] MGUS (monoclonal gammopathy of unknown significance) (Primary Dx) Social History Tobacco Use Types [...] as of this encounter Visit Diagnoses Diagnosis MGUS (monoclonal gammopathy of unknown significance)- Primary Monoclonal paraproteinemia documented in this encounter Additional Health Concerns Assessment Noted Time PHQ-2 Depression Total Score: 2 08/31/19 23 1:37 PM EDT documented as of this encounter Care Teams Sports Centre Manager Relationship Specialty Start Date End Date Unknown, MD Kandy PCP - General 08/01/23 08/16/23 Pcp, Unknown PCP - General 09/19/23 07/24/24 Hoang Mitchell MD 5 [facility] [address]_[place] [address] [email or web address] Consulting Provider Rheumatology 10/02/15 Aaron Collins MD [facility] [address] [address] [email or web address] Primary Oncologist Hematology and Oncology 11/30/2208/23 Mee Badillo MBBS [email or web address] Primary Oncologist Medical Oncology 08/25/23 documented as of this encounter Additional Source Comments The information contained in this document represents components of the legal health record. It is not the complete legal health record.[facility]
--- OUTSIDE RECORDS SUMMARY | 2025-01-14 15:42 | XMS_ITS | Encounter Summary ---
Author Organization [facility] Address [address] [place] [address] [place] [address] Phone Care Team Providers Care Interior Decorator Painting Name Role Phone Scott Quiroz MD Primary Care Provider [phone] Hernan Arzola MD Unavailable [facility] hospitallynne [email or web address] Hoang Mitchell MD Unavailable [phone] [place] Montoya MD Unavailable [phone] Hernan Arzola MD Unavailable [facility] [email or web address] Scott Quiroz MD Unavailable [phone] Gabriel Malik MD Unavailable [phone] Hernan Arzola MD Primary Care Provider [email or web address] Scott Quiroz MD Primary Care Provider [phone] Aaron Collins MD Unavailable Unknown, Unknown Primary Care Provider Mee Beyer Unavailable [phone] Pcp, Unknown Primary Care Provider Unavailabl e Encounter Details Date Type Department Care Team (Late st Contact Info) Description 09/30/2016 Procedure Pass [facility] PERIOPERATIVE DEPT [address] [place] [address] Social History Tobacco Use Types [...] documented as of this encounter Care Teams Interior Decorator Painting Relationship Specialty Start Date End Date Scott Quiroz MD [address] [address] [email or web address] PCP - General 11/19/13 04/09/17 Hernan Arzola MD [email or web address] PCP - General Rheumatology 04/10/17 10/23/17 Scott Quiroz MD [address] [place] [address] [email or web address] PCP - General Internal Medicine 10/24/17 12/19/22 Unknown, Kandy, PCP - General 08/01/23 08/16/23 Pcp, Unknown PCP - General 09/19/23 07/24/24 Hernan Arzola MD [email or web address] Internal Medicine 10/02/15 10/20/20 Hoang Mitchell MD [address] [place] [address] [address]_[place] [address] [email or web address] Consulting Provider Rheumatology 10/02/15 [place] Montoya MD [address] [address] [email or web address] Historical LMR Provider 03/06/17 05/29/21 Hernan Arzola MD [email or web address] Historical LMR Provider 03/06/17 10/20/20 Scott Quiroz MD [address] [place] [address] [email or web address] Historical LMR Provider 03/06/17 10/20/20 Gabriel Malik MD [address] [address] Historical LMR Provider 03/06/17 2 Aaron Collins MD [address] [place] [address] [email or web address] Primary Oncologist Hematology and Oncology 11/30/2208/23 Mee Badillo MBBS [email or web address] Primary Oncologist Medical Oncology 08/25/23 documented as of this encounter Additional Source Comments The information contained in this document represents components of the legal health record. It is not the complete legal health record.[facility]
--- OUTSIDE RECORDS SUMMARY | 2025-01-14 15:42 | XMS_ITS | Encounter Summary ---
Author Organization [facility] Address [address] [place] [address] Phone Care Team Providers Care Vice President Of Engineering Name Role Phone Hoang Mitchell MD Unavailable Mee Badillo MBBS Unavailable [phone] Pcp, Unknown Primary Care Provider Unavailabl e Encounter Details Date Type Department Care Team (Late st Contact Info) Description 02/29/2024 Procedure Pass [facility] Periop [address] [place] [address] Social History Tobacco Use Types Packs/Day Years [...] as food, clothing, or medical care? No 11/11/2023 In the past 12 months have y ou been in a relationship with a person who hurts, threatens, or tries to control you? No 11/11/2023 Are you denied basic needs s uch as food, clothing, or medical care? No 11/11/2023 In the past 12 months have y ou been in a relationship with a person who hurts, threatens, or tries to control you? No 11/11/2023 Comments No Sex and Gender Information Value [...] of Assessment Author No 10/01/2016 8:00 AM ABIGAILT Alma Hair MD documented as of this [...] documented as of this encounter Care Teams Vice President Of Engineering Relationship Specialty Start Date End Date Pcp, Unknown PCP - General 4/30/24 3/5/25 Hoang Mitchell MD [address] [place] [address] [address]_[place] [address] [email or web address] Consulting Provider Rheumatology 10/02/15 Mee Baidllo MBBS [address] [place] [address] [address]_[place] [address] [email or web address] Primary Oncologist Medical Oncology 08/25/23 documented as of this encounter Additional Source Comments The information contained in this document represents components of the legal health record. It is not the complete legal health record.[facility]
--- OUTSIDE RECORDS SUMMARY | 2025-01-14 15:42 | XMS_ITS | Encounter Summary ---
Author Organization [employer] Address [address] [facility] 7t [place] [address] Care Team Providers Care Parts Inspector Name Role Phone Unavailable Primary Care Provider [...]
--- OUTSIDE RECORDS SUMMARY | 2025-01-14 15:42 | XMS_ITS | Encounter Summary ---
Author Organization [facility] Address [address] [facility] [address] [place] [phone] Phone Care Team Providers Care Full Service Supervisor Name Role Phone Hoang Mitchell MD Unavailable [phone] Scott Quiroz MD Primary Care Provider [phone] Aaron Collins MD Unavailable Unknown, Unknown Primary Care Provider Mee Beyer MBBS Unavailable [phone] Pcp, Unknown Primary Care Provider Unavailabl e Encounter Details Date Type Department Care Team (Late st Contact Info) Description 08/16/2022 Procedure Pass [facility], Ct Scan - [address] [address] Social History Tobacco Use Types Packs/Day Years [...] of Assessment Author No 10/01/2016 8:00 AM EDAlma Martinez MD * Patient is blind or has serious difficulty with seeing, even when wearing glasses Answer Date of Assessment Author No 10/01/2016 8:00 AM ABIGAILT Alma Hair MD * Patient has serious difficulty walking or climbing stairs (5yr old or older) Answer Date of Assessment Author No 10/01/2016 8:00 AM ABIGAILT Alma Hair MD * Patient has serious [...] 10/01/2016 8:00 AM ABIGAILT Alma Hair MD * Calculated C-SSRS Risk Score (Lifetime/Recent) Answer Date of Assessment Author No Risk Indicated 08/16/2022 6:04 PM EDT Paul Horn RN * Agency Suicide Severity Rating Scale (Screener/Recent Self-Report) Question Answer Date of Assessment Author 1. Wish to be (Past 1 Month) No 023 6:04 PM EDT Claudette Horn RN 2. Non-Specific Active Suici eunice Thoughts (Past 1 Month) No 08/16/2022 6:04 PM EDT Claudette Horn RN 6. Suicidal Behavior (Lifetime) No 6:04 PM EDT Claudette Horn RN documented as of this encounter Mental Status * Patient has serious difficulty concentrating, remembering, or making decisions due to physical, mental, or emotional condition Answer Entry Date Author No 10/01/2016 8:00 AM Alma Jackson MD documented in this encounter Plan of Treatment Not on file documented as of this encounter Visit Diagnoses Not on filedocumented in this encounter Care Teams Full Service Supervisor Relationship Specialty Start Date End Date Scott Quiroz MD [address] [place] [id number] [email or web address] PCP - General Internal Medicine 10/24/17 12/19/22 Unknown, Kandy, PCP - General 08/01/23 08/16/23 Pcp, Unknown PCP - General 09/19/23 07/24/24 Hoang Mitchell MD [address] [place] [address] [address] [address] [email or web address] Provider Rheumatology 10/02/15 Aaron Collins MD [address] [address] [email or web address] Primary Oncologist Hematology and Oncology 11/30/2208/23 Mee Badillo MBBS [email or web address] Primary Oncologist Medical Oncology 08/25/23 documented as of this encounter Additional Source Comments The information contained in this document represents components of the legal health record. It is not the complete legal health record.[facility]
--- OUTSIDE RECORDS SUMMARY | 2025-01-14 15:42 | XMS_ITS | Clinical Summary ---
Author Organization [employer] Address [address] [facility] [address] [place] [address] Care Team Providers Care [employer] Name Role Phone Unavailable Primary Care Provider [...] zolpidem (Ambien) 10 MG tablet 04/27/2022 Active Social History Tobacco Use Types Packs/Day Years [...] - - Pulse - - Temperature 36 C (96.8 F) 04/28/2022 2:09 PM EST Respiratory Rate - - Oxygen Saturation - - Inhaled Oxygen Concentration - - Weight - - Height - - Body Mass Index - - Plan of Treatment Health Maintenance Due Date Last Done Comments CT Colonography 1949 Colonoscopy 1949 Depression Screening 1949 FIT DNA/Cologuard 1949 FOBT 1949 Lipid Panel 1949 SDOH Screening 1950 [...] Colorectal Cancer Screening 01/17/2024 FIT 01/17/2024 01/16/2023, 0811/2022, 01/14/2023 COVID-19 Vaccine ( season) 2024 11/07/2021, 12/04/2020, 11/13/2020 Dental X-Ray: Bitewings 02/03/2024 02/02/20 23, 12/02/2021, 12/16/2020, Additional history exists RSV Patients and Patients Aged 60 years or older (1 - 1-dose 75+ series) 2024 Influenza Vaccine (#1) 2025 4, 03/23/2022, 03/23/2022, Additional history exists DTaP/Tdap/Td Vaccines (2 - Td or Tdap) 11/10/2033 11/11/2023 HIB Vaccines Aged Out No longer eligi [...] patient's age to complete this topic Meningococcal B Vaccine Aged Out No l onger eligible based on patient's age to complete [...]
--- OUTSIDE RECORDS SUMMARY | 2025-01-14 15:42 | XMS_ITS | Clinical Summary ---
Author Organization [facility] Address [address] [facility] [address] [place] [id number] Phone Care Team Providers Care Technical Rep Name Role Phone Hoang Mitchell MD Unavailable [phone] Mee Badillo MBBS Unavailable [phone] Allergies Active Allergy Reactions Criticality Noted Date Comments Amoxicillin GI Upset 05/06/2021 Ciprofloxacin Diarrhea,Other (See Comments) High 06/12/2012 C. Difficile Milk Containing Products (Dairy) Other (See Comments) 03/04/2015 Increases mucous, also on Vegan diet Opioids - Morphine Analogues Other (See Comments) 03/04/2015 Converted from narcotics. Please confirm with patient. 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 Please confirm with patient. 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 Reported on 09/30/2016 Indications: next dose due 10/2016 100 mL 1 04/20/20 17 Active Additional Information Patient taking differently:1,000 mg IntravenousEvery 12 months, Reported on 09/30/2016, Indications: next dose due 10/2016, Reported on 08/25/2023 clonazePAM (KLONOPIN) 1 MG tablet Take 1 mg by mouth 2 (two) times a day as needed. 03/07/20 23 Active DULoxetine (CYMBALTA) 60 MG capsule Take 60 mg by mouth 2 (two) times a day. Active OLANZapine (ZYPREXA) 7.5 MG tablet Take 7.5 mg by mouth nightly at bedtime. 08/31/19 24 Active lamoTRIgine (LAMICTAL) 100 MG IMMEDIATE release tablet Take 1 tablet by mouth every morning. 12/12/19 24 Active cholecalciferol (VITAMIN D3) 5,000 unit capsuleIndicatio ns:Vitamin D insufficiency Take 1 capsule (5,000 Units total) by mouth daily. 90 capsule 1 02/23/20 24 Active Active Problems Problem Noted Date Diagnosed Date MGUS (monoclonal gammopathy of unknown significa nce) 01/16/2024 Assessment & Plan (03/10/2024 10:39 PM EDT): Due to stability of his monitoring labs there is no need for intervention at this time-he is followed closely by manager med surg oncologist every 6 months. Assessment & Plan (01/16/2024 11:14 PM EDT): IMPRESSION: This is a 73-year-old man with the following diagnoses. MGUS - IgA [place] Anemia of chronic disease/inflammation DISCUSSION: I discussed all impression, natural history of the disease, prognosis and further management in this regard. MGUS is an indolent premalignant plasma cell disorder which has 1 %/year risk of progression into plasma cell neoplasm like multiple myeloma. Patient has a very small M spike. It has been stable. There is no indication for any further diagnostic or therapeutic intervention at this time. I recommended continuing surveillance on 6 monthly basis. He has anemia of chronic disease/inflammation which has been stable and patient is asymptomatic from it. RECOMMENDATIONS: Continue surveillance on 6 monthly basis Return for follow-up in 6 months with labs Thank you very much for allowing to participate in this patient's care Anemia in neoplastic disease 01/16/2024 Vitamin D deficiency 08/27/2023 Assessment & Plan (08/27/2023 4:06 PM EDT): Serum level added to the specimen from earlier this morning to make sure that there is no insufficiency requiring further vitamin D supplementation. Encounter for monitoring rituximab therapy 08/24 Assessment & Plan (02/23/2024 3:10 PM EDT): Monitor for any signs of infection such as fever, shaking chills, overwhelming fatigue, unusual cough etc. Return for monitoring labs at least every 2-3 months or more frequently if worse-standing orders in epic. Assessment & Plan (08/27/2023 4:04 PM EDT): Monitor for any signs of infection such as fever, shaking chills, overwhelming fatigue, unusual cough etc. Return for monitoring labs at least every 2-3 months or more frequently if worse-standing orders in epic. Overweight (BMI 25.0-29.9) 11/16/2022 Assessment & Plan (11/16/2022 11:08 AM EDT): Congrats on 20 lbs weight loss & keep it off! Continue diligent portion control. Limit concentrated sugars, saturated fats and calories in the diet. Keep well-hydrated. If unable to achieve expected goal consider formal dietary/nutritional support. Dysrhythmia, cardiac 11/16/2022 Assessment & Plan (11/24/2022 2:09 PM EDT): Due to couple of rounds of extrasystole/irregular heartbeat I requested EKG. Class 1 obesity due to excess calories in adult 04/27/2022 Assessment & Plan (04/27/2022 2:52 PM EST): Portion control. Limit concentrated sugars, saturated fats and calories in the diet. Keep well-hydrated. If unable to achieve expected goal consider formal dietary/nutritional support. Vitamin D insufficiency 05/06/2021 Assessment & Plan (03/10/2024 10:38 PM EDT): Continue daily 5000 units vitamin D to prevent deficiency. Assessment & Plan (11/16/2022 11:09 AM EDT): Continue daily 5000 units vitamin D to prevent deficiency. Assessment & Plan (04/27/2022 2:43 PM EST): Continue daily 5000 units vitamin D to prevent deficiency. Assessment & Plan (05/06/2021 11:22 PM EST): Continue daily 5000 units vitamin D to prevent deficiency. Post traumatic stress disorder (PTSD) 05/06/2021 Assessment & Plan (02/23/2024 3:10 PM EDT): Carefully continue nightly amitriptyline and regular relaxation/meditation sessions. May need to consider personal psychotherapy if not better or worse this despite above measures. Assessment & Plan (05/06/2021 11:26 PM EST): Carefully continue nightly amitriptyline and regular relaxation/meditation sessions. May need to consider personal psychotherapy if not better or worse this despite above measures. 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 Keep headboard elevated at 45 angle for nighttime. Assessment & Plan (08/25/2023 3:22 PM EDT): Avoid late, large, spicy meals. Keep headboard elevated at 45 angle for nighttime. Assessment & Plan (11/16/2022 11:07 AM EDT): Avoid late, large, spicy meals. Keep headboard elevated at 45 angle for nighttime. Assessment & Plan (04/27/2022 2:40 PM EST): Avoid late, large, spicy meals. Keep headboard elevated at 45 angle for nighttime. Assessment & Plan (05/06/2021 11:25 PM EST): Avoid late, large, spicy meals. Keep headboard elevated at 45 angle for nighttime. Carefully continue pantoprazole as prescribed. Lumbar radiculitis 05/29/2017 Assessment & Plan (02/28/2018 2:18 PM EDT): History of lumbar disc bulge with L4 radiculopathy now quiet with a nonfocal neurologic exam and no muscular atrophy. Assessment & Plan (10/23/2017 2:27 PM EDT): Active intermittent radicular pain has not worsened. He understands the need for compliance with home exercise program. He dozes the pain is minimal. Encourage this as well as weight modification and a healthy low inflammatory diet. Assessment & Plan (05/29/2017 2:49 PM EST): This has improved dramatically as long as he stays with a home exercise program given to him by physical therapy. Granulomatosis with polyangiitis 12/11/2015 Assessment & Plan (03/10/2024 10:41 PM EDT): Clinically and laboratory torres no signs of disease activity. Last tracheal dilation on 09/15/2021. Last 1000 mg IV rituximab on 02/24/2023. The plan is to continue monthly lab work including flow cytometry, ANCA, CBC with differential, CMP, ESR and CRP until B cells re-appear. Patient is ready for every 12 months rituximab infusion if no clinical or laboratory deterioration. The best timing for surgical procedure would be within 4-6 weeks of yearly rituximab infusion depending on expected time for healing from it. Assessment & Plan (08/27/2023 4:03 PM EDT): Clinically and laboratory torres no signs of disease activity. Last tracheal dilation on 09/15/2021. Last 1000 mg IV rituximab on 02/24/2023. The plan is to continue monthly lab work including flow cytometry, ANCA, CBC with differential, CMP, ESR and CRP until B cells re-appear. Patient is ready for every 12 months rituximab infusion if no clinical or laboratory deterioration Assessment & Plan (11/24/2022 2:08 PM EDT): Clinically and laboratory torres no signs of disease activity. Last tracheal dilation on 09/15/2021. Last 1000 mg IV rituximab on 12/07/2021. The plan is to continue monthly lab work including flow cytometry, ANCA, CBC with differential, CMP, ESR and CRP until B cells re-appear to complete COVID-19 vaccination. Patient is aware that whenever symptoms worsen or labs reveal increasing inflammatory indices we may proceed with another IV rituximab infusion. New set of lab work requested today and reviewed with patient that if CD19 cells reappear I suggest him to get the COVID-19 bivalent vaccine dose and wait at least 2 weeks before getting next rituximab infusion. Assessment & Plan (05/19/2022 9:49 PM EST): Clinically and laboratory torres no signs of disease activity. Last tracheal dilation on 09/15/2021. Last 1000 mg IV rituximab on 12/07/2021. The plan is to continue monthly lab work including flow cytometry, ANCA, CBC with differential, CMP, ESR and CRP until B cells re-appear to complete COVID-19 vaccination. Patient is aware that whenever symptoms worsen or labs reveal increasing inflammatory indices we may proceed with another IV rituximab infusion. We discussed the potential role of [employer] EVUSHELD monoclonal antibody in preventing/decreasing risk of acquiring COVID-19 infection for him. Pamphlet on Evusheld provided for review. Assessment & Plan (05/06/2021 11:21 PM EST): Clinically and laboratory torres no signs of disease activity. Last tracheal dilation on December 19, 2019. Last 1000 mg IV rituximab in July 2020. The plan is to continue monthly lab work including flow cytometry, ANCA, CBC with differential, CMP, ESR and CRP until B cells re-appear to complete COVID-19 vaccination. Patient is aware that whenever symptoms worsen or labs reveal increasing inflammatory indices we may proceed with another IV rituximab infusion. We discussed the potential role of [employer] EVUSHELD monoclonal antibody in preventing/decreasing risk of acquiring COVID-19 infection for him. I am requesting advice from his co- managing police patrol officer at [facility]-Dr. Mitchell on it. 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 The question is how we should proceed with the next Rituxan infusion in light of the COVID-19 pandemic and recent lab work showing no measurable B cells. He will contact her consulting police patrol officer in [place] to get his feeling on further delaying Rituxan infusion until measurable B cells are seen and then revaccinate or proceeding with Rituxan infusion at the beginning of January. This was discussed in some detail today and we left the final decision to be made by the patient and . Another flow cytometry will be sent next week along with a CRP CBC and BMP. All questions were answered. Hospital Outpatient Visit on 12/03/2020 Component Date Value Ref Range Status IMMUNOGLOBULIN G 12/03/2020 509* 700 - 1,600 mg/dL Final CD45 LYMPH COUNT 12/03/2020 1.01 0.82 - 2.84 thou/mcl Final %CD3 (T CELLS) 12/03/2020 89* 58 - 86 % Final %CD19 (B CELLS) 12/03/2020 0* 3 - 24 % Final %CD16+CD56 (NK CELLS) 12/03/2020 10 5 - 28 % Final %CD4 (HELPER CELLS) 12/03/2020 55 32 - 64 % Final %CD8 (SUPPR CELLS) 12/03/2020 33 8 - 40 % Final CD3 (T CELLS) 12/03/2020 894 550 - 2,202 cells/mcl Final CD19 (B CELLS) 12/03/2020 0* 45 - 409 cells/mcL Final CD16+CD56 (NK CELLS) 12/03/2020 103 59 - 513 cells/mcL Final CD4 (HELPER CELLS) 12/03/2020 551 365 - 1,437 cells/mcL Final CD8 (SUPPR CELLS) 12/03/2020 332 80 - 846 cells/mcL Final H/S RATIO 12/03/2020 1.7 >=0.9 Final Comment: (NOTE) ADDITIONAL INFORMATION This test was developed using an analyte specific reagent. Its performance characteristics were determined by [facility] in a manner consistent with CLIA requirements. This test has not been cleared or approved by the U.S. Food and Drug Administration. COMMENT 12/03/2020 Test component not applicable or not reported. Final 25 OH VIT D (TOTAL) 12/03/2020 23* 30 - 60 ng/mL Final PROTEINASE 3 AB 12/03/2020 <0.2 <0.4 (Negative) U Final SODIUM 12/03/2020 142 133 - 146 mmol/L Final POTASSIUM 12/03/2020 3.9 3.3 - 5.1 mmol/L Final CHLORIDE 12/03/2020 105 96 - 108 mmol/L Final CO2 12/03/2020 24 21 - 35 mmol/L Final BUN 12/03/2020 11 6 - 19 mg/dL Final CREATININE 12/03/2020 0.80 0.5 - 1.5 mg/dL Final GLUCOSE 12/03/2020 96 70 - 99 mg/dL Final ALBUMIN 12/03/2020 4.2 3.9 - 4.8 g/dL Final TOTAL PROTEIN 12/03/2020 6.6 6.5 - 8.0 g/dL Final CALCIUM 12/03/2020 9.3 8.4 - 10.3 mg/dL Final ALKALINE PHOSPHATASE 12/03/2020 93 39 - 117 U/L Final TOTAL BILIRUBIN 12/03/2020 0.2 0.0 - 1.2 mg/dL Final AST 12/03/2020 33 0 - 37 U/L Final ALT 12/03/2020 16 0 - 40 U/L Final GLOBULIN 12/03/2020 2.4 1 - 4.8 g/dL Final EGFR 12/03/2020 90 >59 mL/min/1.73m2 Final Estimated glomerular filtration rate calculated using the CKD-EPI equation. ANION GAP 12/03/2020 17 10 - 20 mmol/L Final C REACTIVE PROTEIN 12/03/2020 <3.0 0.0 - 4.0 mg/L Final WBC 12/03/2020 5.77 4.00 - 11.00 K/uL Final RBC 12/03/2020 3.92 3.90 - 5.69 M/uL Final HGB 12/03/2020 12.1* 12.4 - 17.3 g/dL Final HCT 12/03/2020 36.6* 37.0 - 51.0 % Final PLT 12/03/2020 257 140 - 430 K/uL Final MCV 12/03/2020 93.4 78.0 - 97.0 fL Final MCH 12/03/2020 30.9 25.0 - 33.0 pg Final MCHC 12/03/2020 33.1 32.0 - 36.0 g/dL Final RDW 12/03/2020 13.2 11.0 - 15.0 % Final MPV 12/03/2020 12.3 8.4 - 12.8 fl Final NRBC 12/03/2020 0.00 0 /100 WBCs Final ABSOLUTE NRBC 12/03/2020 0.00 0 K/uL Final DIFF METHOD 12/03/2020 Auto Final NEUTS 12/03/2020 66.9 43.0 - 75.0 % Final LYMPHS 12/03/2020 17.9* 18.2 - 47.4 % Final MONOS 12/03/2020 12.8* 4.00 - 11.00 % Final EOS 12/03/2020 1.2 0.0 - 8.0 % Final BASOS 12/03/2020 0.7 0.0 - 2.0 % Final Granulocytes, immature (%) 12/03/2020 0.5 0.0 - 0.9 % Final ABSOLUTE NEUTS 12/03/2020 3.86 1.80 - 7.70 K/uL Final ABSOLUTE LYMPHS 12/03/2020 1.03 1.00 - 3.10 K/uL Final ABSOLUTE MONOS 12/03/2020 0.74 0.20 - 0.80 K/uL Final ABSOLUTE EOS 12/03/2020 0.07 0.00 - 0.80 K/uL Final ABSOLUTE BASOS 12/03/2020 0.04 0.00 - 0.09 K/uL Final Granulocytes, immature 12/03/2020 0.03 0.00 - 0.05 K/uL Final Office Visit on 10/26/2020 Component Date Value Ref Range Status Special Requests 10/26/2020 None Final GRAM STAIN 10/26/2020 Rare GRAM POSITIVE COCCI Final Wound Culture/Smear 10/26/2020 MIXED ORGANISMS RESEMBLING CUTANEOUS GEOVANI* Final Assessment & Plan (11/11/2020 4:26 PM EDT): Localized granulomatosis with polyangiitis and tracheomalacia will continue to be treated with Rituxan every 6 months. He will have COVID-19 vaccination with 2 dose vaccine this week. 2 weeks prior to his next Rituxan infusion we will measure immunoglobulin levels along with SC-3 CBC CRP and chemistry profile. No evidence of active disease now. No change in medication. Office Visit on 10/26/2020 Component Date Value Ref Range Status Special Requests 10/26/2020 None Final GRAM STAIN 10/26/2020 Rare GRAM POSITIVE COCCI Final Wound Culture/Smear 10/26/2020 MIXED ORGANISMS RESEMBLING CUTANEOUS GEOVANI* Final Assessment & Plan (08/03/2020 2:50 PM EDT): Patient with polyangiitis and granulomatosis with tracheomalacia status post tracheal dilatation and Rituxan infusion. Reviewed rheumatology notes from the [facility]. Reviewed lab work just prior to Rituxan and all looks within normal limits and we will check his gammaglobulin levels and CBC today. We will have him wait to get Covid vaccine for 4 months to ensure adequate humoral response to the vaccine. Explained the rationale to the patient and he agrees. Infusion on 07/23/2020 Component Date Value Ref Range Status WBC 07/23/2020 4.15 4.00 - 11.00 K/uL Final Note Reference Range updates to all CBC and Differential results. RBC 07/23/2020 3.90 3.90 - 5.69 M/uL Final HGB 07/23/2020 12.0* 12.4 - 17.3 g/dL Final Note updated Reference Ranges for all CBC and Differential results. HCT 07/23/2020 36.2* 37.0 - 51.0 % Final PLT 07/23/2020 250 140 - 430 K/uL Final MCV 07/23/2020 92.8 78.0 - 97.0 fL Final MCH 07/23/2020 30.8 25.0 - 33.0 pg Final MCHC 07/23/2020 33.1 32.0 - 36.0 g/dL Final RDW 07/23/2020 12.6 11.0 - 15.0 % Final MPV 07/23/2020 11.0 8.4 - 12.8 fl Final NRBC 07/23/2020 0.00 0 /100 WBCs Final ABSOLUTE NRBC 07/23/2020 0.00 0 K/uL Final DIFF METHOD 07/23/2020 Auto Final NEUTS 07/23/2020 53.3 43.0 - 75.0 % Final LYMPHS 07/23/2020 24.1 18.2 - 47.4 % Final MONOS 07/23/2020 17.1* 4.00 - 11.00 % Final EOS 07/23/2020 4.1 0.0 - 8.0 % Final BASOS 07/23/2020 1.2 0.0 - 2.0 % Final Granulocytes, immature (%) 07/23/2020 0.2 0.0 - 0.9 % Final ABSOLUTE NEUTS 07/23/2020 2.21 1.80 - 7.70 K/uL Final ABSOLUTE LYMPHS 07/23/2020 1.00 1.00 - 3.10 K/uL Final ABSOLUTE MONOS 07/23/2020 0.71 0.20 - 0.80 K/uL Final ABSOLUTE EOS 07/23/2020 0.17 0.00 - 0.80 K/uL Final ABSOLUTE BASOS 07/23/2020 0.05 0.00 - 0.09 K/uL Final Granulocytes, immature 07/23/2020 0.01 0.00 - 0.05 K/uL Final SODIUM 07/23/2020 142 133 - 146 mmol/L Final POTASSIUM 07/23/2020 4.0 3.3 - 5.1 mmol/L Final CHLORIDE 07/23/2020 106 96 - 108 mmol/L Final CO2 07/23/2020 23 21 - 35 mmol/L Final BUN 07/23/2020 12 6 - 19 mg/dL Final CREATININE 07/23/2020 0.70 0.5 - 1.5 mg/dL Final GLUCOSE 07/23/2020 95 70 - 99 mg/dL Final ALBUMIN 07/23/2020 4.1 3.9 - 4.8 g/dL Final TOTAL PROTEIN 07/23/2020 6.2* 6.5 - 8.0 g/dL Final CALCIUM 07/23/2020 8.9 8.4 - 10.3 mg/dL Final ALKALINE PHOSPHATASE 07/23/2020 106 39 - 117 U/L Final TOTAL BILIRUBIN 07/23/2020 0.2 0.0 - 1.2 mg/dL Final AST 07/23/2020 17 0 - 37 U/L Final ALT 07/23/2020 9 0 - 40 U/L Final GLOBULIN 07/23/2020 2.1 1 - 4.8 g/dL Final EGFR 07/23/2020 96 >59 mL/min/1.73m2 Final Estimated glomerular filtration rate calculated using the CKD-EPI equation. ANION GAP 07/23/2020 17 10 - 20 mmol/L Final ESR 07/23/2020 9 0 - 20 mm/h Final C REACTIVE PROTEIN 07/23/2020 <3.0 0.0 - 4.0 mg/L Final CREATINE KINASE 07/23/2020 68 35 - 232 U/L Final Hospital Outpatient Visit on 06/25/2020 Component Date Value Ref Range Status IMMUNOGLOBULIN G 06/25/2020 485* 700 - 1,600 mg/dL Final C REACTIVE PROTEIN 06/25/2020 <3.0 0.0 - 4.0 mg/L Final WBC 06/25/2020 4.83 4.00 - 11.00 K/uL Final Note Reference Range updates to all CBC and Differential results. RBC 06/25/2020 3.70* 3.90 - 5.69 M/uL Final HGB 06/25/2020 11.4* 12.4 - 17.3 g/dL Final Note updated Reference Ranges for all CBC and Differential results. HCT 06/25/2020 35.4* 37.0 - 51.0 % Final PLT 06/25/2020 228 140 - 430 K/uL Final MCV 06/25/2020 95.7 78.0 - 97.0 fL Final MCH 06/25/2020 30.8 25.0 - 33.0 pg Final MCHC 06/25/2020 32.2 32.0 - 36.0 g/dL Final RDW 06/25/2020 12.8 11.0 - 15.0 % Final MPV 06/25/2020 11.8 8.4 - 12.8 fl Final NRBC 06/25/2020 0.00 0 /100 WBCs Final ABSOLUTE NRBC 06/25/2020 0.00 0 K/uL Final DIFF METHOD 06/25/2020 Auto Final NEUTS 06/25/2020 55.9 43.0 - 75.0 % Final LYMPHS 06/25/2020 25.5 18.2 - 47.4 % Final MONOS 06/25/2020 14.7* 4.00 - 11.00 % Final EOS 06/25/2020 2.7 0.0 - 8.0 % Final BASOS 06/25/2020 1.0 0.0 - 2.0 % Final Granulocytes, immature (%) 06/25/2020 0.2 0.0 - 0.9 % Final ABSOLUTE NEUTS 06/25/2020 2.70 1.80 - 7.70 K/uL Final ABSOLUTE LYMPHS 06/25/2020 1.23 1.00 - 3.10 K/uL Final ABSOLUTE MONOS 06/25/2020 0.71 0.20 - 0.80 K/uL Final ABSOLUTE EOS 06/25/2020 0.13 0.00 - 0.80 K/uL Final ABSOLUTE BASOS 06/25/2020 0.05 0.00 - 0.09 K/uL Final Granulocytes, immature 06/25/2020 0.01 0.00 - 0.05 K/uL Final SODIUM 06/25/2020 142 133 - 146 mmol/L Final POTASSIUM 06/25/2020 4.6 3.3 - 5.1 mmol/L Final CHLORIDE 06/25/2020 106 96 - 108 mmol/L Final CO2 06/25/2020 26 21 - 35 mmol/L Final BUN 06/25/2020 11 6 - 19 mg/dL Final CREATININE 06/25/2020 0.70 0.5 - 1.5 mg/dL Final GLUCOSE 06/25/2020 125* 70 - 99 mg/dL Final ALBUMIN 06/25/2020 3.9 3.9 - 4.8 g/dL Final TOTAL PROTEIN 06/25/2020 6.3* 6.5 - 8.0 g/dL Final CALCIUM 06/25/2020 8.9 8.4 - 10.3 mg/dL Final ALKALINE PHOSPHATASE 06/25/2020 102 39 - 117 U/L Final TOTAL BILIRUBIN 06/25/2020 <0.2 0.0 - 1.2 mg/dL Final AST 06/25/2020 26 0 - 37 U/L Final ALT 06/25/2020 13 0 - 40 U/L Final GLOBULIN 06/25/2020 2.4 1 - 4.8 g/dL Final EGFR 06/25/2020 96 >59 mL/min/1.73m2 Final Estimated glomerular filtration rate calculated using the CKD-EPI equation. ANION GAP 06/25/2020 15 10 - 20 mmol/L Final COLOR 06/25/2020 Yellow Yellow Final CLARITY 06/25/2020 Clear Final GLUCOSE 06/25/2020 Negative Negative Final BILI 06/25/2020 Negative Negative Final KETONES 06/25/2020 Negative Negative Final SPECIFIC GRAVITY 06/25/2020 1.010 1.005 - 1.030 Final BLOOD 06/25/2020 Negative Negative Final PH 06/25/2020 7.0 5.0 - 8.0 Final Protein-UA 06/25/2020 Negative Negative Final NITRITE 06/25/2020 Negative Negative Final Leukocyte esterase, ur 06/25/2020 Negative Negative Final Assessment & Plan (06/03/2020 3:15 PM EST): Patient well-known to me with granulomatosis with polyangiitis on every 6 month regimen of Rituxan will have another infusion of 1000 mg at the end of June. This was set up for him to date. He will have pretreatment gammaglobulin level CBC CHEM profile the first week of June and then again 10 days after the infusion. Risks and benefits of Rituxan infusion were discussed. Recent chest x-ray done at the time of tracheal dilatation showed no mediastinal adenopathy or pulmonary infiltrates. No evidence of renal involvement. A urinalysis will be done with the next set of lab test. All questions were answered. Hospital Outpatient Visit on 03/09/2020 Component Date Value Ref Range Status Specimen Source 03/09/2020 NASOPHARYNGEAL SWAB (KNIFE SETTER) Final COVID-19 Comment 03/09/202020200312 Final COVID Testing Status 03/09/2020 Sent to [facility] Final Symptomatic? 03/09/2020 NO Final Specimen Source/Description 03/09/2020 NASOPHARYNGEAL SWAB Final SARS-CoV 2 (COVID-19) PCR 03/09/2020 Not Detected Not Detected Final Comment: Negative results do not preclude SARS-CoV-2 infection and should not be used as the sole basis for patient management decisions. Negative results must be combined with clinical observations, patient history, and epidemiological information. Optimum specimen types and timing for peak viral levels during infection by SARS-CoV-2 have not been determined. Collection of multiple specimens from the same patient may be necessary to detect the virus. This test has been authorized by the FDA under an Emergency Use Authorization (EUA) for use by authorized laboratories. Assessment & Plan (02/05/2020 3:14 PM EDT): Patient with granulomatosis and angiitis. Recent lab work has shown negative serologies. It has been more than 6 months since the last tracheal dilatation but I think he is headed for another dilatation within the next 2 months as the stridor and coughing has been worse as of late. There are no signs or symptoms of active pulmonary infection. Medications will continue unchanged and we will plan another Rituxan infusion in June of next year. He will have his immunoglobulin levels checked today. Hospital Outpatient Visit on 12/18/2019 Component Date Value Ref Range Status C REACTIVE PROTEIN 12/18/2019 2.6 0.0 - 4.0 mg/L Final MYELOPEROXIDASE AB 12/18/2019 <0.2 <0.4 (Negative) U Final PROTEINASE 3 AB 12/18/2019 <0.2 <0.4 (Negative) U Final WBC 12/18/2019 4.15 4.00 - 11.00 K/uL Final Note Reference Range updates to all CBC and Differential results. RBC 12/18/2019 3.82* 3.90 - 5.69 M/uL Final HGB 12/18/2019 11.8* 12.4 - 17.3 g/dL Final Note updated Reference Ranges for all CBC and Differential results. HCT 12/18/2019 36.8* 37.0 - 51.0 % Final PLT 12/18/2019 224 140 - 430 K/uL Final MCV 12/18/2019 96.3 78.0 - 97.0 fL Final MCH 12/18/2019 30.9 25.0 - 33.0 pg Final MCHC 12/18/2019 32.1 32.0 - 36.0 g/dL Final RDW 12/18/2019 12.9 11.0 - 15.0 % Final MPV 12/18/2019 11.6 8.4 - 12.8 fl Final NRBC 12/18/2019 0.00 0 /100 WBCs Final ABSOLUTE NRBC 12/18/2019 0.00 0 K/uL Final DIFF METHOD 12/18/2019 Auto Final NEUTS 12/18/2019 57.6 43.0 - 75.0 % Final LYMPHS 12/18/2019 24.1 18.2 - 47.4 % Final MONOS 12/18/2019 14.2* 4.00 - 11.00 % Final EOS 12/18/2019 2.9 0.0 - 8.0 % Final BASOS 12/18/2019 1.0 0.0 - 2.0 % Final Granulocytes, immature (%) 12/18/2019 0.2 0.0 - 0.9 % Final ABSOLUTE NEUTS 12/18/2019 2.39 1.80 - 7.70 K/uL Final ABSOLUTE LYMPHS 12/18/2019 1.00 1.00 - 3.10 K/uL Final ABSOLUTE MONOS 12/18/2019 0.59 0.20 - 0.80 K/uL Final ABSOLUTE EOS 12/18/2019 0.12 0.00 - 0.80 K/uL Final ABSOLUTE BASOS 12/18/2019 0.04 0.00 - 0.09 K/uL Final Granulocytes, immature 12/18/2019 0.01 0.00 - 0.05 K/uL Final SODIUM 12/18/2019 144 133 - 146 mmol/L Final POTASSIUM 12/18/2019 3.8 3.3 - 5.1 mmol/L Final CHLORIDE 12/18/2019 105 96 - 108 mmol/L Final CO2 12/18/2019 26 21 - 35 mmol/L Final BUN 12/18/2019 16 6 - 19 mg/dL Final CREATININE 12/18/2019 0.70 0.5 - 1.5 mg/dL Final GLUCOSE 12/18/2019 83 70 - 99 mg/dL Final ALBUMIN 12/18/2019 4.4 3.9 - 4.8 g/dL Final TOTAL PROTEIN 12/18/2019 6.5 6.5 - 8.0 g/dL Final CALCIUM 12/18/2019 9.2 8.4 - 10.3 mg/dL Final ALKALINE PHOSPHATASE 12/18/2019 92 39 - 117 U/L Final TOTAL BILIRUBIN 12/18/2019 <0.2 0.0 - 1.2 mg/dL Final AST 12/18/2019 22 0 - 37 U/L Final ALT 12/18/2019 10 0 - 40 U/L Final GLOBULIN 12/18/2019 2.1 1 - 4.8 g/dL Final EGFR 12/18/2019 96 >59 mL/min/1.73m2 Final Estimated glomerular filtration rate calculated using the CKD-EPI equation. 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 He will have another infusion of Rituxan at the end of December. Pretreatment laboratory work will be done today and posttreatment laboratory work including IgG levels will be done as well. Other medications will be left unchanged. Previous lab work was reviewed. A total of 28 minutes were spent in [id number] conversation with the patient coordinating my care with that of the referring police patrol officer in [place], IV infusion therapy and his primary care physician. We also discussed immunosuppressive therapy and granulomatosis in general as it affects treatments and response during this COVID-19 epidemic. All questions were answered. No visits with results within 3 Month(s) from this visit. Latest known visit with results is: Hospital Outpatient Visit on 09/13/2019 Component Date Value Ref Range Status C REACTIVE PROTEIN 09/13/2019 4.3* 0.0 - 4.0 mg/L Final WBC 09/13/2019 4.78 4.00 - 11.00 K/uL Final Note Reference Range updates to all CBC and Differential results. RBC 09/13/2019 3.79* 3.90 - 5.69 M/uL Final HGB 09/13/2019 11.4* 12.4 - 17.3 g/dL Final Note updated Reference Ranges for all CBC and Differential results. HCT 09/13/2019 35.8* 37.0 - 51.0 % Final PLT 09/13/2019 256 140 - 430 K/uL Final MCV 09/13/2019 94.5 78.0 - 97.0 fL Final MCH 09/13/2019 30.1 25.0 - 33.0 pg Final MCHC 09/13/2019 31.8* 32.0 - 36.0 g/dL Final RDW 09/13/2019 12.8 11.0 - 15.0 % Final MPV 09/13/2019 11.1 8.4 - 12.8 fl Final NRBC 09/13/2019 0.00 0 /100 WBCs Final ABSOLUTE NRBC 09/13/2019 0.00 0 K/uL Final DIFF METHOD 09/13/2019 Auto Final NEUTS 09/13/2019 52.1 43.0 - 75.0 % Final LYMPHS 09/13/2019 28.7 18.2 - 47.4 % Final MONOS 09/13/2019 15.9* 4.00 - 11.00 % Final EOS 09/13/2019 2.1 0.0 - 8.0 % Final BASOS 09/13/2019 0.8 0.0 - 2.0 % Final Granulocytes, immature (%) 09/13/2019 0.4 0.0 - 0.9 % Final ABSOLUTE NEUTS 09/13/2019 2.49 1.80 - 7.70 K/uL Final ABSOLUTE LYMPHS 09/13/2019 1.37 1.00 - 3.10 K/uL Final ABSOLUTE MONOS 09/13/2019 0.76 0.20 - 0.80 K/uL Final ABSOLUTE EOS 09/13/2019 0.10 0.00 - 0.80 K/uL Final ABSOLUTE BASOS 09/13/2019 0.04 0.00 - 0.09 K/uL Final Granulocytes, immature 09/13/2019 0.02 0.00 - 0.05 K/uL Final SODIUM 09/13/2019 144 133 - 146 mmol/L Final POTASSIUM 09/13/2019 3.9 3.3 - 5.1 mmol/L Final CHLORIDE 09/13/2019 104 96 - 108 mmol/L Final CO2 09/13/2019 27 21 - 35 mmol/L Final BUN 09/13/2019 12 6 - 19 mg/dL Final CREATININE 09/13/2019 0.80 0.5 - 1.5 mg/dL Final GLUCOSE 09/13/2019 83 70 - 99 mg/dL Final ALBUMIN 09/13/2019 4.3 3.9 - 4.8 g/dL Final TOTAL PROTEIN 09/13/2019 7.0 6.5 - 8.0 g/dL Final CALCIUM 09/13/2019 9.6 8.4 - 10.3 mg/dL Final ALKALINE PHOSPHATASE 09/13/2019 104 39 - 117 U/L Final TOTAL BILIRUBIN 09/13/2019 <0.2 0.0 - 1.2 mg/dL Final AST 09/13/2019 24 0 - 37 U/L Final ALT 09/13/2019 13 0 - 40 U/L Final GLOBULIN 09/13/2019 2.7 1 - 4.8 g/dL Final EGFR 09/13/2019 91 >59 mL/min/1.73m2 Final If patient is black, multiply result by 1.159. Estimated glomerular filtration rate calculated using the CKD-EPI equation. ANION GAP 09/13/2019 17 10 - 20 mmol/L Final COLOR 09/13/2019 Yellow Yellow Final CLARITY 09/13/2019 Clear Final GLUCOSE 09/13/2019 Negative Negative Final BILI 09/13/2019 Negative Negative Final KETONES 09/13/2019 Negative Negative Final SPECIFIC GRAVITY 09/13/2019 1.010 1.005 - 1.030 Final BLOOD 09/13/2019 Negative Negative Final PH 09/13/2019 6.5 5.0 - 8.0 Final Protein-UA 09/13/2019 Negative Negative Final NITRITE 09/13/2019 Negative Negative Final Leukocyte esterase, ur 09/13/2019 Negative Negative Final Assessment & Plan (09/10/2019 1:47 PM EDT): Active but stable GPA on every 6 month Rituxan. Lab work will be checked this week and I will get back to him by phone call. Continue 1000 mg every 6 months. Continue follow-up with thoracic surgery and periodic tracheal dilatations for subglottic stenosis. Continue all efforts at self isolation and social distancing as patient should be considered high risk for secondary complications of viral infection. All questions answered. Lab work reviewed. 28 minutes spent on this phone conversation. Hospital Outpatient Visit on 06/13/2019 Component Date Value Ref Range Status PROTEINASE 3 AB 06/13/2019 <0.2 <0.4 (Negative) U Final MYELOPEROXIDASE AB 06/13/2019 <0.2 <0.4 (Negative) U Final C-ANCA 06/13/2019 Negative Negative Final P-ANCA 06/13/2019 Negative Negative Final Comment: (NOTE) Negative for cANCA and pANCA patterns by immunofluorescence. ADDITIONAL INFORMATION This test was developed and its performance characteristics determined by [facility] in a manner consistent with CLIA requirements. This test has not been cleared or approved by the U.S. Food and Drug Administration. ESR 06/13/2019 18 0 - 20 mm/h Final C REACTIVE PROTEIN 06/13/2019 6.8* 0.0 - 4.0 mg/L Final SODIUM 06/13/2019 141 133 - 146 mmol/L Final POTASSIUM 06/13/2019 4.3 3.3 - 5.1 mmol/L Final CHLORIDE 06/13/2019 102 96 - 108 mmol/L Final CO2 06/13/2019 27 21 - 35 mmol/L Final BUN 06/13/2019 12 6 - 19 mg/dL Final CREATININE 06/13/2019 0.80 0.5 - 1.5 mg/dL Final GLUCOSE 06/13/2019 76 70 - 99 mg/dL Final ALBUMIN 06/13/2019 4.3 3.9 - 4.8 g/dL Final TOTAL PROTEIN 06/13/2019 6.9 6.5 - 8.0 g/dL Final CALCIUM 06/13/2019 9.6 8.4 - 10.3 mg/dL Final ALKALINE PHOSPHATASE 06/13/2019 113 39 - 117 U/L Final TOTAL BILIRUBIN 06/13/2019 <0.2 0.0 - 1.2 mg/dL Final AST 06/13/2019 30 0 - 37 U/L Final ALT 06/13/2019 19 0 - 40 U/L Final GLOBULIN 06/13/2019 2.6 1 - 4.8 g/dL Final EGFR 06/13/2019 91 >59 mL/min/1.73m2 Final If patient is black, multiply result by 1.159. Estimated glomerular filtration rate calculated using the CKD-EPI equation. ANION GAP 06/13/2019 16 10 - 20 mmol/L Final WBC 06/13/2019 4.46 3.40 - 11.20 K/uL Final RBC 06/13/2019 3.73* 4.50 - 5.50 M/uL Final HGB 06/13/2019 11.7* 13.0 - 17.0 g/dL Final HCT 06/13/2019 36.0* 40.0 - 51.0 % Final PLT 06/13/2019 273 130 - 400 K/uL Final MCV 06/13/2019 96.5 79.0 - 98.0 fL Final MCH 06/13/2019 31.4 27.0 - 34.8 pg Final MCHC 06/13/2019 32.5 31.5 - 36.0 g/dL Final RDW 06/13/2019 12.8 10.8 - 14.6 % Final MPV 06/13/2019 11.4 9.4 - 12.4 fl Final NRBC 06/13/2019 0.00 0.00 /100 WBCs Final ABSOLUTE NRBC 06/13/2019 0.00 0.00 K/uL Final DIFF METHOD 06/13/2019 Auto Final NEUTS 06/13/2019 61.7 45.30 - 77.70 % Final LYMPHS 06/13/2019 19.7 12.30 - 39.70 % Final MONOS 06/13/2019 15.5* 4.10 - 12.80 % Final EOS 06/13/2019 2.2 0 - 7.2 % Final BASOS 06/13/2019 0.7 0 - 2.80 % Final Granulocytes, immature (%) 06/13/2019 0.2 0.0 - 0.9 % Final ABSOLUTE NEUTS 06/13/2019 2.75 1.40 - 7.70 K/uL Final ABSOLUTE LYMPHS 06/13/2019 0.88 0.60 - 3.20 K/uL Final ABSOLUTE MONOS 06/13/2019 0.69* 0.11 - 0.59 K/uL Final ABSOLUTE EOS 06/13/2019 0.10 0.01 - 0.50 K/uL Final ABSOLUTE BASOS 06/13/2019 0.03 0.00 - 0.08 K/uL Final Granulocytes, immature 06/13/2019 0.01 0.00 - 0.05 K/uL Final COLOR 06/13/2019 Yellow Yellow Final CLARITY 06/13/2019 Clear Final GLUCOSE 06/13/2019 Negative Negative Final BILI 06/13/2019 Negative Negative Final KETONES 06/13/2019 Negative Negative Final SPECIFIC GRAVITY 06/13/2019 1.010 1.005 - 1.030 Final BLOOD 06/13/2019 Negative Negative Final PH 06/13/2019 7.0 5.0 - 8.0 Final Protein-UA 06/13/2019 Negative Negative Final NITRITE 06/13/2019 Negative Negative Final Leukocyte esterase, ur 06/13/2019 Negative Negative Final Assessment & Plan (02/28/2019 4:40 PM EDT): Patient's granulomatosis with polyangiitis is stable. Tolerating Rituxan well. Flu vaccine will be given today. Lab work will be done today. Successful tracheal dilation performed 2 months ago. Reviewed rheumatology consultative report suggesting a recheck of his gammaglobulin level and to prepare for her next 6-month Rituxan infusion in June 2019. Hospital Outpatient Visit on 02/12/2019 Component Date Value Ref Range Status COLOR 02/12/2019 Yellow Yellow Final CLARITY 02/12/2019 Clear Final GLUCOSE 02/12/2019 Negative Negative Final BILI 02/12/2019 Negative Negative Final KETONES 02/12/2019 Trace* Negative Final SPECIFIC GRAVITY 02/12/2019 1.020 1.005 - 1.030 Final BLOOD 02/12/2019 Negative Negative Final PH 02/12/2019 6.0 5.0 - 8.0 Final Protein-UA 02/12/2019 Trace* Negative Final NITRITE 02/12/2019 Negative Negative Final Leukocyte esterase, ur 02/12/2019 Negative Negative Final Assessment & Plan (11/15/2018 12:25 PM EDT): Hospital Outpatient Visit on 11/12/2018 Component Date Value Ref Range Status COLOR 11/12/2018 Yellow Yellow Final CLARITY 11/12/2018 Clear Final GLUCOSE 11/12/2018 Negative Negative Final BILI 11/12/2018 Negative Negative Final KETONES 11/12/2018 Negative Negative Final SPECIFIC GRAVITY 11/12/2018 1.010 1.005 - 1.030 Final BLOOD 11/12/2018 Negative Negative Final PH 11/12/2018 6.0 5.0 - 8.0 Final Protein-UA 11/12/2018 Negative Negative Final NITRITE 11/12/2018 Negative Negative Final Leukocyte esterase, ur 11/12/2018 Negative Negative Final SODIUM 11/12/2018 140 133 - 146 mmol/L Final POTASSIUM 11/12/2018 4.6 3.3 - 5.1 mmol/L Final CHLORIDE 11/12/2018 101 96 - 108 mmol/L Final CO2 11/12/2018 25 21 - 35 mmol/L Final BUN 11/12/2018 16 6 - 19 mg/dL Final CREATININE 11/12/2018 0.90 0.5 - 1.5 mg/dL Final GLUCOSE 11/12/2018 91 70 - 99 mg/dL Final ALBUMIN 11/12/2018 4.0 3.9 - 4.8 g/dL Final TOTAL PROTEIN 11/12/2018 6.9 6.5 - 8.0 g/dL Final CALCIUM 11/12/2018 9.6 8.4 - 10.3 mg/dL Final ALKALINE PHOSPHATASE 11/12/2018 80 39 - 117 U/L Final TOTAL BILIRUBIN 11/12/2018 0.3 0.0 - 1.2 mg/dL Final AST 11/12/2018 22 0 - 37 U/L Final ALT 11/12/2018 12 0 - 40 U/L Final GLOBULIN 11/12/2018 2.9 1 - 4.8 g/dL Final EGFR 11/12/2018 87 >59 mL/min/1.73m2 Final If patient is black, multiply result by 1.159. Estimated glomerular filtration rate calculated using the CKD-EPI equation. ANION GAP 11/12/2018 19 10 - 20 mmol/L Final C REACTIVE PROTEIN 11/12/2018 2.4 0.0 - 4.0 mg/L Final WBC 11/12/2018 5.29 3.40 - 11.20 K/uL Final RBC 11/12/2018 3.72* 4.50 - 5.50 M/uL Final HGB 11/12/2018 11.5* 13.0 - 17.0 g/dL Final HCT 11/12/2018 36.0* 40.0 - 51.0 % Final PLT 11/12/2018 220 130 - 400 K/uL Final MCV 11/12/2018 96.8 79.0 - 98.0 fL Final MCH 11/12/2018 30.9 27.0 - 34.8 pg Final MCHC 11/12/2018 31.9 31.5 - 36.0 g/dL Final RDW 11/12/2018 13.0 10.8 - 14.6 % Final MPV 11/12/2018 12.6* 9.4 - 12.4 fl Final NRBC 11/12/2018 0.00 0.00 /100 WBCs Final ABSOLUTE NRBC 11/12/2018 0.00 0.00 K/uL Final DIFF METHOD 11/12/2018 Auto Final NEUTS 11/12/2018 60.8 45.30 - 77.70 % Final LYMPHS 11/12/2018 23.1 12.30 - 39.70 % Final MONOS 11/12/2018 13.6* 4.10 - 12.80 % Final EOS 11/12/2018 1.3 0 - 7.2 % Final BASOS 11/12/2018 0.8 0 - 2.80 % Final Granulocytes, immature (%) 11/12/2018 0.4 0.0 - 0.9 % Final ABSOLUTE NEUTS 11/12/2018 3.22 1.40 - 7.70 K/uL Final ABSOLUTE LYMPHS 11/12/2018 1.22 0.60 - 3.20 K/uL Final ABSOLUTE MONOS 11/12/2018 0.72* 0.11 - 0.59 K/uL Final ABSOLUTE EOS 11/12/2018 0.07 0.01 - 0.50 K/uL Final ABSOLUTE BASOS 11/12/2018 0.04 0.00 - 0.08 K/uL Final Granulocytes, immature 11/12/2018 0.02 0.00 - 0.05 K/uL Final Doing quite well. No signs of active disease. Laboratory tests reviewed. He will speak to the thoracic specialist in [place] when he feels it is necessary to see them again for dilatation in the meantime I will set him up for Rituxan infusion next month. Assessment & Plan (08/13/2018 2:15 PM EDT): Patient with granulomatosis and polyangiitis with subglottal stenosis. No signs of pneumonia or sinusitis. Signs of renal involvement or systemic vasculopathy. Tronic stable anemia and normal liver function tests and renal function have been demonstrated over the years and good tolerance to Rituxan which will still be administered every 6 months. I redid the therapy plan today to administer 1000 mg on this first week of November and I will see him approximately 1 week before and 3 days before that visit to lab work. Greater than 50% of this 30-minute visit was spent [id number] conversation with the patient going over the natural history and treatment of granulomatosis with polyangiitis. Also talked at length today that tracheal resection versus repeated right heel dilatation time with a flexible bronchoscope. Assessment & Plan (05/14/2018 9:50 AM EST): Reviewed last chest x-ray which showed a mild localized area of atelectasis but no hilar adenopathy or infiltrate. The patient has localized tracheal stenosis. No white or signs of vasculitis or inflammatory arthritis. Fall and fracture prevention strategies discussed. Her main on ibuprofen as needed and iron supplement. Arrange Rituxan infusion. 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 Has note not been any nephropathy, inflammatory arthritis, or skin manifestations. He has benefited from Rituxan infusions in the interval recently was increased to every 6 months. He is due again for an infusion in mid April. Lab work was reviewed today from November and will be repeated again 3 days prior to her next visit. Liver function tests were normal with an AST of 18 and an ALT of 11 and a creatinine was stable at 0.8 and his hemoglobin was 11.2 with a hematocrit of 34.2 and a white count of 3.99 with a normal differential. The plan will be to consult the roller hand at [facility] who did the last radial dilatation see whether this should be done before the next Rituxan infusion in April. He will have an influenza vaccine today. Assessment & Plan (10/23/2017 2:26 PM EDT): Patient's granulomatosis with polyangiitis is stable. Stenosis of her trachea is stable right now with his last rigid bronchoscopy done at the beginning of August and his last Rituxan infusion in April. I have put in a therapy plan to have his Rituxan at 1000 mg repeated again next week. He will then see me again in 4 weeks and he will see his police patrol officer in [place] in 6 weeks. I reviewed lab work with him that that was done last week showing a creatinine of 0.8 with an AST of 18, ALT 11, alkaline phosphatase of 81, hemoglobin 11.1, and a white count of 4200 with a normal differential with a C-reactive protein 3.0. Assessment & Plan (08/28/2017 5:25 PM EDT): Active localize granulomatosis with polyangiitis and patient with progressive tracheomalacia who recently had a dilatation procedure done at [facility]. This was done with a rigid bronchoscope. There were no postoperative complications. Before this he had quite a bit of stridor has denied any pleurisy, chest pain, fever, chills, rashes, night sweats, weight loss, anorexia, dysphagia, odontophagia, headache, diplopia, sinus pressure or falls or dizziness. Will continue with Rituxan infusions every 6 months. The case will be discussed with Dr. Mitchell and if necessary decrease the dosing intervals down to every 4 months. Lab work was reviewed with him today showing a C-reactive protein of 3.2 with a sedimentation rate of 24 and a negative antinuclear antibody. Chest x-ray done after the procedure so it showed subsegmental atelectasis in the left middle lobe. Greater than 50% of this 28 minute visit was spent in [id number] conversation with the patient going over the natural history of polyangiitis with granulomatosis as well as tracheomalacia and his upcoming Rituxan infusion. Assessment & Plan (05/29/2017 2:48 PM EST): Patient has active granulomatosis with polyangiitis and is 1 month status post Rituxan infusion at 10 mg/kg and he did well without post infusion reactions. She complained is a nighttime cough which is likely secondary to upper airway dryness. I agree with the humidifiers and plans for a nebulizer. Medications will remain unchanged. Lab work will be done today. Pre-infusion laboratories in March of last year were reviewed with him showing a vitamin D level of 33 with hemoglobin 11.3 and a hematocrit of 34.8 with a white count of 4300 with a normal differential. 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 At this time tolerable. Last dilation per patient's report on Follow-up with ENT as scheduled. Assessment & Plan (05/19/2022 9:50 PM EST): Most severe manifestation of his GPA-usually requiring dilation every 9-10 months. At this time tolerable. Last dilation per patient's report on Next ENT checkup expected in early 2022(?). Assessment & Plan (05/06/2021 11:23 PM EST): Most severe manifestation of his GPA-usually requiring dilation every 9-10 months. At this time tolerable. Last dilation per patient's report on December 19, 2019. Next ENT checkup expected in early 2021(?). Assessment & Plan (02/28/2019 4:40 PM EDT): The oropharynx is clear, trachea midline and thyroid is not enlarged and he is swallowing and breathing much better with very little stridor. 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 No role for hearing aids. Unclear if any benefit from cochlear implant. Assessment & Plan (08/25/2023 3:22 PM EDT): Patient is reporting that left ear is completely deaf while right ear much less affected. No role for hearing aids. Unclear if any benefit from cochlear implant. Assessment & Plan (11/16/2022 11:08 AM EDT): Patient is reporting that left ear is completely deaf while right ear much less affected. No role for hearing aids. Unclear if any benefit from cochlear implant. Assessment & Plan (04/27/2022 2:43 PM EST): Patient is reporting that left ear is completely deaf while right ear much less affected. No role for hearing aids. Unclear if any benefit from cochlear implant. Assessment & Plan (05/06/2021 11:24 PM EST): Patient is reporting that left ear is completely deaf while right ear much less affected. No role for hearing aids. Unclear if any benefit from cochlear implant. Assessment & Plan (02/28/2018 2:18 PM EDT): Stable and no worse and without vertigo or tinnitus Resolved Problems Problem Noted Date Diagnosed Date Resolved Date Nocturnal polyuria 02/28/2019 2 Assessment & Plan (09/10/2019 1:46 PM EDT): He started with pelvic floor exercises as taught to him by physical therapy but only got into sessions before it was stopped due to COVID-19 pandemic. Does some exercises at home and nighttime medication is quite helpful. Assessment & Plan (02/28/2019 4:42 PM EDT): Nocturnal polyuria is being worked up and thus far results are negative but he is seeing a urologist within 1 week and I expect further testing in the form of either an MRI of the pelvis and/or cystoscopy. I will await the consultative report. In the meantime the patient may continue with the melatonin and valerian root for sleep. Bartholin cyst 11/28/2017 08/19/2021 Assessment & Plan (11/28/2017 12:28 PM EDT): The description was possibly consistent with a Bartholin's cyst but the patient was not examined in this area sign referring her to Dr. Miller for surgical evaluation and possibly removal of what may be given a Bartholin's cyst, sebaceous cysts or lymphadenopathy. Glottic stenosis 05/29/2017 08/19/2021 Tracheal stenosis 12/10/2015 08/19/2021 Assessment & Plan (06/03/2020 3:15 PM EST): Good improvement after tracheal dilatation. Happy with the results. Assessment & Plan (05/14/2018 9:49 AM EST): Worsening. He will need dilatation soon. We will arrange the next Rituxan infusion. Reviewed lab work from 23 April indicating a stable creatinine of 0.8 and normal liver function test with an alkaline phosphatase of 80 and an AST of 19 and ALT of 13. His urinalysis was without protein glucose or cells and her hemoglobin was stable at 11.5 with a white count of 4900 with a normal differential. Assessment & Plan (11/28/2017 12:30 PM EDT): Status post Rituxan approximately 2 weeks ago and tolerated well except for some post infusion diarrhea which may have been due to a high dose of Benadryl which he took. Otherwise no fever or chills. Lab work on October 18 showed hemoglobin of 11.1 with a hematocrit of 34.1 and a white count stable at 4200 with a normal differential and a C-reactive protein normal at 3.0 with a glucose of 81 and a creatinine of 0.8 and an AST of 18 with an ALT of 11. He will have a CBC with differential today and she does have an appointment within 2 weeks to see the police patrol officer in [place]. My point of view the patient is doing quite well with clear and demonstrable stabilization of his polyangiitis with granulomatosis and there has been no further inflammation of tracheal cartilage suggestive of tracheomalacia. Hearing loss 10/30/2012 08/19/2021 Overview (07/12/2014): Hearing loss Assessment & Plan (11/15/2018 12:25 PM EDT): With a history of complete sensorineural hearing loss on the left most likely secondary to granulomatosis, he is having some diminished hearing on the right and I strongly advise a repeat visit to the lawn care technician for testing. 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 08/20/19 22 Overview (07/12/2014): Stenosis of trachea Encounters Date Type Department Care Team Description 01/13/2025 7:06 AM EDT - 01/13/2025 11:59 PM EDT Hospital Encounter [facility] Laboratory [address] [place] [address] Chau Reece MD Discharge Disposition: Home or Self Care 01/13/2025 Transcribe Orders [facility] Specimen Processing [address] [place] [address] Chau Reece MD Anxiety (Primary Dx) 01/06/2025 8:05 AM EDT - 01/06/2025 11:59 PM EDT Hospital Encounter [facility] [address] [place] [address] Doreen Garcia NP Discharge Disposition: Home or Self Care 01/06/2025 Transcribe Orders [facility] Specimen Processing [address] [place] [address] Doreen Garcia NP Illness (Primary Dx) 12/20/2024 Telephone [facility] [address] [place] [address] Mee Badillo MBBS R/sing Next Appts from Last 3 Months Immunizations Immunization Administration Dates Next Due COVID-19 (Pre-03/13) Pfizer Vaccine, mRNA, PF 11/13/2020 Influenza High-Dose Trivalen t Preservative Free IM 02/23/2024,02/28/2019,02/28/2018,2016 Influenza Quadrivalent Adjuv anted Preservative Free IM 03/23/2022,03/31/2021 Influenza Quadrivalent Prese rvative Free IM 02/26/2016 Influenza Recombinant Tonie valent Preservative Free IM 02/24/2020 Influenza, Unspecified Formulation 02/26/2016 Pneumococcal conjugate PCV13 07/04/2018(Deferred : Contraindication) Tdap 11/11/2023 Social History Tobacco Use Types Packs/Day Years Used Date Smoking Tobacco: Former Cigarettes 1.5 10 0 05/22/1963 - 05/22/1973 Smokeless Tobacco: Never Tobacco Cessation:Counseling Given: Not Answered Alcohol Use Standard Drinks/Week Comments No 0 [...] Orientation Straight 03/18/2019 2: 26 PM EDT Last Filed Vital Signs Vital Sign Reading Time Taken Comments Blood Pressure 130/78 05/04/2024 11:33 PM EST Pulse 57 05/04/2024 11:33 PM EST Temperature 36.4 C (97.5 F) 05/04/2024 11:33 PM EST Respiratory Rate 16 05/04/2024 11:33 PM EST Oxygen Saturation 98% 05/04/2024 11:33 PM EST Inhaled Oxygen Concentration - - Weight 77.1 kg (170 lb) 05/04/2024 8:40 PM EST Height 160 cm (5' 3 ) 02/23/2024 2:47 PM EDT Body Mass Index 30.11 02/23/2024 2:47 PM EDT Plan of Treatment Health Maintenance Due Date Last Done Comments HEPATITIS C SCREENING 07/30/1967 PNEUMOCOCCAL VACCINES (50+ years) (1 of 2 - PCV) 1968 ZOSTER VACCINES (1 of 2) 1968 COLOGUARD 1994 FOBT 1994 SIGMOIDOSCOPY 1994 VIRTUAL COLONOSCOPY 1994 DEPRESSION SCREENING 08/31/2023 08/30/2022 FIT TEST 01/17/2024 01/16/2023, 12/21, 01/14/2023 RSV VACCINE (1 - 1-dose 75+ series) 2024 COVID-19 VACCINE (5 - Pfizer risk season) 2024 02/23/2024, 11/07/2021, 12/04/2020, Additional history exists INFLUENZA VACCINE (#1) 2024 , 03/23/2022, 03/31/2021, Additional history exists LIPID PANEL 01/06/2030 01/06/2025 COLONOSCOPY 10/05/2033 10/06/2023 COLORECTAL CANCER SCREENING 10/05/2033 Adult Td,Tdap Booster 11/10/2033 11/11/2023 SMOKING STATUS SCREENING (Once After 26 Yrs) Completed 02/23/2024 HEPATITIS A VACCINES Aged Out No long er eligible based on patient's age to complete this topic HIB VACCINES Aged Out No longer eligi ble based on patient's age to complete this topic MENINGOCOCCAL VACCINES (ACWY) Aged Out No longer eligible based on patient's age to complete this topic MENINGOCOCCAL VACCINES (B) Aged Out N o longer eligible based on patient's age to complete this topic Medical Devices Implanted Type Area Director Of Casework Device Identifier Shelf Expiration Date Model / Serial / Lot Syringe Carboxymethylcellulose 1.0 Cc Augment Vocal Fold Radiesse Voice Prolaryn Gel Sodium - [id number] Implanted:Qty: 1 on 05/19/2023 by Jhon Gutiérrez MD at [facility] N/A: Vocal Cord [employer] 12/25/2024 [id number] / / [id number] Procedures Procedure Name Priority Date/Time Associated Diagnosis Comments CBC AND DIFFERENTIAL Routine 01/13/2025 4:55 AM EDT Anxiety BASIC METABOLIC PANEL Routine 01/13/2025 4:55 AM EDT Anxiety CBC AND DIFFERENTIAL Routine 01/06/2025 5:40 AM EDT Illness BASIC METABOLIC PANEL Routine 01/06/2025 5:40 AM EDT Illness LIPID PANEL Routine 01/06/2025 5:40 AM EDT Illness HEMOGLOBIN A1C Routine 01/06/2025 5:40 AM EDT Illness ENDOSCOPY, COLON 10/06/2023 12:2 9 PM EDT HC BLOOD OCCULT FECAL HGB DETER IA QUAL FECES 1-3 Routine 01/16/2023 1:00 PM EDT Other iron deficiency anemia from Last 3 Months or Most Recently Relevant to Health Maintenance Results * (ABNORMAL) CBC and differential (01/13/2025 4:55 AM EDT) Only the most recent of2 resultswithin the time period is included. WBC 9.37 4.00 - 11.00 K/uL [facility] RBC 3.44(L) 4.50 - 5.90 M/uL [facility] HGB 9.8(L) 13.5 - 17.5 g/dL [facility] HCT 32.0(L) 41.0 - 53.0 % [facility] PLT 328 150 - 450 K/uL [facility] MCV 93.0 80.0 - 100.0 fL [facility] MCH 28.5 27.0 - 31.0 pg [facility] MCHC 30.6(L) 32.0 - 36.0 g/dL [facility] RDW 16.6(H) 11.5 - 14.5 % [facility] MPV 11.4 8.4 - 12.0 fL [facility] NRBC 0.00 0.00 /100 WBCs [facility] ABSOLUTE NRBC 0.00 0.00 K/uL [facility] DIFF METHOD Auto [facility] NEUTS 68.5 48.0 - 76.0 % [facility] LYMPHS 12.2(L) 18.0 - 41.0 % [facility] MONOS 16.2(H) 4.0 - 11.0 % [facility] EOS 2.0 0.0 - 5.0 % [facility] BASOS 0.5 0.0 - 1.5 % [facility] Granulocytes, immature (%) 0.6 0.0 - 0.9 % [facility] ABSOLUTE NEUTS 6.41 1.92 - 7.60 K/uL [facility] ABSOLUTE LYMPHS 1.14 0.72 - 4.10 K/uL [facility] ABSOLUTE MONOS 1.52(H) 0.16 - 1.10 K/uL [facility] ABSOLUTE EOS 0.19 0.00 - 0.50 K/uL [facility] ABSOLUTE BASOS 0.05 0.00 - 0.15 K/uL [facility] Granulocytes, immature 0.06 0.00 - 0.09 K/uL [facility] Blood 01/13/2025 4:55 AM EDT 01/13/2025 8:14 AM EDT us Chau Reece MD LAB BLOOD ORDERABLES Final Resul t Performing Organization Address City/[facility]/ZIP Co de Phone Number [address] [address] * Basic metabolic panel (01/13/2025 4:55 AM EDT) Only the most recent of2 resultswithin the time period is included. SODIUM 140 133 - 146 mmol/L [facility] CHLORIDE 106 96 - 108 mmol/L [facility] POTASSIUM 4.5 3.3 - 5.1 mmol/L [facility] CO2 21 21 - 35 mmol/L [facility] BUN 15 6 - 19 mg/dL [facility] CREATININE 0.70 0.5 - 1.5 mg/dL [facility] GLUCOSE 99 70 - 99 mg/dL [facility] CALCIUM 8.6 8.4 - 10.3 mg/dL [facility] EGFR 96 >59 mL/min/1.7 3m2 [facility] Comment:Estimated glomerular filtration rate calculated using the CKD-EPI refit equation. ANION GAP 18 10 - 20 mmol/L [facility] Blood 01/13/2025 4:55 AM EDT 01/13/2025 8:14 AM EDT us Chau Reece MD LAB BLOOD ORDERABLES Final Resul t Performing Organization Address City/[facility]/ZIP Co de Phone Number [address] [address] * (ABNORMAL) Hemoglobin A1c (01/06/2025 5:40 AM EDT) HEMOGLOBIN A1C 6.1(H) 4.3 - 5.8 % [facility] Blood 01/06/2025 5:40 AM EDT 01/06/2025 8:29 AM EDT us Doreen Garcia KNIFE SETTER LAB BLOOD ORDERABLES Final Result [address] [address] * (ABNORMAL) Lipid panel (01/06/2025 5:40 AM EDT) HDL 36 mg/dL [facility] Comment: Interpretation <40 mg/dL: Low HDL cholesterol (major risk factor for CHD) Greater than or equal to 60 mg/dL: High HDL cholesterol ( negative risk factor for CHD) HDL - cholesterol is affected by a number of factors, e.g. smoking, excerise, hormones, sex and age. CHOLESTEROL 224 0 - 240 mg/dL [facility] TRIGLYCERIDES 325(H) 30 - 160 mg/dL [facility] LDL 123 50 - 129 mg/dL [facility] Comment: LDL levels in terms of risk for coronary heart disease: <100 mg/dL: Optimal 100-129 mg/dL: Near or above optimal 130-159 mg/dL: Borderline high 160-189 mg/dL: High >190 mg/dL: Very High CARDIAC RISK RATIO 6.2(H) 3.4 - 5.0 C [facility] Blood 01/06/2025 5:40 AM EDT 01/06/2025 8:29 AM EDT us Doreen Garcia KNIFE SETTER LAB BLOOD ORDERABLES Final Result Performing Organization Address City/[facility]/ZIP Co de Phone Number [address] [address] * ENDOSCOPY, COLON (10/06/2023 12:29 PM EDT) Narrative Transcriptions Orlando Mullins MD - 10/06/2023 12:29 PM EDT [facility] Patient Name: Lindsey Smith Attending MD:: ORLANDO MULLINS MD, Procedure Date: 10/06/2023 12:29 PM Date of : 1950 Age: 73 Admit Type: Outpatient Gender: Male Room: [place] [address] Referring MD: Na Faria Exam Type: Colonoscopy Indications: This is the patient's first colonoscopy, Hemepositive stool Medications: Monitored Anesthesia Care Procedure: Informed consent was obtained from the patientafter discussion of the indications, limitations, alternatives, benefits, and risks of the procedure. Risks specifically discussed include but are not limited to medication reactions, missed lesions, bleeding, perforation, or the need for emergent surgery. Throughout the procedure, the patient's blood pressure, pulse, end-tidal CO2, and oxygensaturations were monitored continuously. The Olympus pediatric variable [id number] #1 was introduced through the anus and advanced tothe terminal ileum, with identification of theappendiceal orifice and IC valve. The colonoscopy was performed without difficulty. The patient tolerated the procedure fairly well. The quality of the bowel preparation was good. The terminal ileum, ileocecal valve, appendiceal orifice, and rectum were photographed. Complications: No immediate complications. Estimated blood loss:None. Findings: The perianal and digital rectal examinations were normal. Pertinent negatives include normalsphincter tone. Retroflexion in the right colon was performed. Non-bleeding internal hemorrhoids were found during retroflexion. The hemorrhoids were moderate. The exam was otherwise without abnormality ondirect and retroflexion views. The terminal ileum appeared normal. Impression: - Non-bleeding internal hemorrhoids. - The examination was otherwise normal on directand retroflexion views. - The examined portion of the ileum was normal. - No specimens collected. Recommendation: - Reassurance - No repeat colonoscopy due to age and the absenceof colonic polyps. ORLANDO MULLINS MD 10/06/2023 1:01:42 PM This report has been signed electronically. Number of Addenda: 0 Note Initiated On: 10/06/2023 12:29 PM Procedure Code(s): --- Professional --- 08892, Colonoscopy, flexible; diagnostic, including collection of specimen(s) by brushing or washing, when performed (separateprocedure) --- Technical --- 31649, Colonoscopy, flexible; diagnostic, including collection of specimen(s) by brushing or washing, when performed (separateprocedure) Diagnosis Code(s): --- Professional --- K64.8, Other hemorrhoids R19.5, Other fecal abnormalities --- Technical --- K64.8, Other hemorrhoids R19.5, Other fecal abnormalities CPT copyright 2021 [employer]. All rights reserved. The codes documented in this report are preliminary and upon nitric acid concentrator operator reviewmay be revised to meet current compliance requirements. Procedure Date: 10/06/2023 12:29:[address] [place] [address] Na Faria MANAGER TELEMARKETING GI PROCEDURE ORDERABLES Fin al Result * (ABNORMAL) Fecal immunochemical test x1 (FIT) (01/16/2023 1:00 PM EDT) Immuno Fecal Occult Positive(A ) Negative [facility] Stool (Stool) 01/16/2023 1:0 0 PM EDT 01/16/2023 2:03 PM EDT Aaron Collins MD BODY FLUIDS AND STOOLS ORDERABLES Final Result [facility] [address] [place] [address] from Last 3 Months or Most Recently Relevant to Health Maintenance Insurance MEDICARE PART A & B MEDICARE PART A & B MEDICARE PART A & B MEDICARE PART A & B MEDICARE PART A & B MEDICARE PART A & B Member Subscriber Plan / Payer ([facility] 12/20/2010-) Name:Lindsey Smith Member ID:[id number] Relation to Subscriber:Self Name:Luis Lindsey Subscriber ID:[id number] Payer ID:[id number] Group ID:Not on file Type:Medicare Address: [employer]. [address] [place] [address] MEDICARE PART A & B Member Subscriber Plan / Payer ([facility] 12/20/2010-) Name:Lindsey Smith Member ID:[id number] Relation to Subscriber:Self Name:Lindsey Smith Subscriber ID:[id number] Payer ID:[id number] Group ID:Not on file Type:Medicare Address: [employer] 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 12/18/2015 3:47 PM Signed 12/10/15 * Full Code (Latest Code Status on File) Date Activated Date Inactivated Comments 05/19/2023 8:48 PM Question Answer Comments Code Status Confirmed With: Patient * Full Code (Confirmed) Date Activated Date Inactivated Comments 07/03/2018 4:13 PM 07/04/2018 4:40 PM Question Answer Comments Code Status Confirmed With: Patient * Full Code (Presumed) Date Activated Date Inactivated Comments 08/24/2017 11:24 AM 08/25/2017 1:15 PM * Full Code (Presumed) Date Activated Date Inactivated Comments 09/30/2016 9:42 AM 10/01/2016 12:45 PM * Full Code (Presumed) Date Activated Date Inactivated Comments 12/10/2015 12:37 PM 12/11/2015 2:27 PM Care Teams Technical Rep Relationship Specialty Start Date End Date Hoang Mitchell MD [address] [place] [address] 501_[place] [address] [email or web address] Consulting Provider Rheumatology 10/02/15 Mee Badillo MBBS [address] [place] [address] [address]_[place] [address] [email or web address] Primary Oncologist Medical Oncology 08/25/23 Additional Source Comments The information contained in this document represents components of the legal health record. It is not the complete legal health record.[facility]
--- OUTSIDE RECORDS SUMMARY | 2025-01-14 15:42 | XMS_ITS | Encounter Summary ---
Author Organization [facility] Address [address] [facility] [address] [place] [address] Phone Care Team Providers Care Licensed Home Inspector Name Role Phone Hoang Mitchell MD Unavailable Austin Montoya MD Unavailable [phone] Gabriel Malik MD Unavailable Scott Quiroz MD Primary Care Provider Aaron Collins MD Unavailable [phone] Unknown, Unknown Primary Care Provider Mee Beyer Unavailable Pcp, Unknown Primary Care Provider Unavailabl e Encounter Details Date Type Department Care Team (Late st Contact Info) Description 03/06/2021 Procedure Pass [facility], Ct Scan - [address] [address] Social History Tobacco Use Types Packs/Day Years [...] Author No 10/01/2016 8:00 AM EDT Alma aHir MD * Patient has serious difficulty walking [...] 8:00 AM EDT Alma Hair MD * Calculated C-SSRS Risk Score (Lifetime/Recent) Answer Date of Assessment Author No Risk Indicated 03/06/2021 5:31 PM EDT Shakila Balderas RN * [place] Suicide Severity Rating Scale (Screener/Recent Self-Report) Question Answer Date of Assessment Author 1. Wish to be (Past 1 Month) No 021 5:31 PM EDT Shakila Balderas RN 2. Non-Specific Active Suici eunice Thoughts (Past 1 Month) No 03/06/2021 5:31 PM EDT Shakila Balderas RN 6. Suicidal Behavior (Lifetime) No 5:31 PM EDT Shakila Balderas RN documented as of this encounter Mental [...] Date Last Indicated Resolved Time CoV-Risk 03/04/2021 03/04/202103/14/2021 1:22 AM EDT documented as of this encounter Care Teams Licensed Home Inspector Relationship Specialty Start Date End Date Scott Quiroz MD [address] [address] [email or web address] PCP - General Internal Medicine 10/24/17 12/19/22 Unknown, Kandy, MD PCP - General 08/01/23 08/16/23 Pcp, Unknown PCP - General 09/19/23 07/24/24 Hoang Mitchell MD [address] [place] [address] 501_[place] [address] [email or web address] Consulting Provider Rheumatology 10/02/15 Austin Montoya MD [address] [place] [address] [address] [place] [address] [email or web address] Historical LMR Provider 03/06/17 05/29/21 [place] [address] [place] [address] Historical LMR Provider 03/06/17 2 Aaron Collins MD [address] [place] [address] [email or web address] Primary Oncologist Hematology and Oncology 11/30/2208/23 Mee Badillo MBBS [email or web address] Primary Oncologist Medical Oncology 08/25/23 documented as of this encounter Additional Source Comments The information contained in this document represents components of the legal health record. It is not the complete legal health record.[facility]
--- OUTSIDE RECORDS SUMMARY | 2025-01-14 15:42 | XMS_ITS | Encounter Summary ---
Author Organization [facility] Address [address] [facility] [address] [place] [address] Phone Care Team Providers Care Cartography Supervisor Name Role Phone Hernan Arzola MD Unavailable [facility] Hoang Mitchell MD Unavailable [phone] Austin Montoya MD Unavailable [phone] Hernan Arzola MD Unavailable [facility] Scott Quiroz MD Unavailable [phone] Gabriel Malik MD Unavailable Scott Quiroz MD Primary Care Provider Aaron Collins MD Unavailable Unknown, Unknown Primary Care Provider Mee Beyer Unavailable [phone] Pcp, Unknown Primary Care Provider Unavailabl e Encounter Details Date Type Department Care Team (Late st Contact Info) Description 07/03/2018 Procedure Pass [facility] PERIOPERATIVE DEPT [address] [place] [address] Social History Tobacco Use Types [...] documented as of this encounter Care Teams Cartography Supervisor Relationship Specialty Start Date End Date Scott Quiroz MD [address] [place] [address] [email or web address] PCP - General Internal Medicine 10/24/17 12/19/22 Unknown, Unknown, PCP - General 08/01/23 08/16/23 Pcp, Unknown PCP - General 09/19/23 07/24/24 Hernan Arzola MD [email or web address] Internal Medicine 10/02/15 10/20/20 Hoang Mitchell MD [address] [place] [address] 501_[place] [address] [email or web address] Consulting Provider Rheumatology 10/02/15 Austin Montoya MD [address] [place] [address] [email or web address] Historical LMR Provider 03/06/17 05/29/21 Hernan Arzola MD [email or web address] Historical LMR Provider 03/06/17 10/20/20 Scott Quiroz MD [address] [place] [address] [email or web address] Historical LMR Provider 03/06/17 10/20/20 Gabriel Malik MD [address] [address] Historical LMR Provider 03/06/17 Aaron Hardy MD [address] [place] [address] [email or web address] Primary Oncologist Hematology and Oncology 11/30/2208/23 Mee Badillo MBBS [email or web address] Primary Oncologist Medical Oncology 08/25/23 documented as of this encounter Additional Source Comments The information contained in this document represents components of the legal health record. It is not the complete legal health record.[facility]
--- OUTSIDE RECORDS SUMMARY | 2025-01-14 15:42 | XMS_ITS | Encounter Summary ---
Author Organization [facility] Address [address] [place] [address] Phone Care Team Providers Care Commanding Officer Homicide Squad Name Role Phone Hernan Arzola MD Unavailable [email or web address] Hoang Mitchell MD Unavailable [phone] Austin Montoya MD Unavailable [phone] Hernan Arzola MD Unavailable [email or web address] Scott Quiroz MD Unavailable [phone] Gabriel Malik MD Unavailable Scott Quiroz MD Primary Care Provider [phone] Aaron Collins MD Unavailable Unknown, Unknown Primary Care Provider Mee Beyer Unavailable [phone] Pcp, Unknown Primary Care Provider Unavailabl e Reason for Referral * Physical Therapy (Elective) - Closed Specialty Diagnoses / Procedures Referred By Lasha t Referred To Contact Physical Therapy Diagnoses Encounter for rehabilitation Left Shoulder Pain Scott Quiroz MD Phone: tel: fax: [email or web address] [address] [address] Phone: tel: Referral ID Status Reason Start Date Expiration Date Visits Re quested Visits Authorized [id number] Closed 11/23/2018 03/01/2019 99 99 Encounter Details Date Type Department Care Team (Latest Contact Info) Description 11/23/2018 Transcribe Orders [facility] [address] [place] [address] Scott Quiroz MD [address] [place] [address] [email or web address] Encounter for rehabilitation (Primary Dx) Social History [...] Diagnoses Orde r Schedule Ambulatory referral to [facility] Physical Therapy Outpatient Referral Routine Encounter for rehabilitation Ordered: 11/23/2018 documented as of this encounter Visit Diagnoses Diagnosis Encounter for rehabilitation- Primary documented in this encounter Additional Health Concerns Infection Onset Date Last Indicated Resolved Time CoV-Risk 03/04/2021 03/04/2021 03/14/2021 1:22 AM EDT documented as of this encounter Care Teams Commanding Officer Homicide Squad Relationship Specialty Start Date End Date Scott Quiroz MD [address] [place] [address] [email or web address] PCP - General Internal Medicine 10/24/17 12/19/22 Unknown, Kandy, MD PCP - General 08/01/23 08/16/23 Pcp, Unknown PCP - General 09/19/23 07/24/24 Hernan Arzola MD [email or web address] Medicine 10/02/15 10/20/20 Hoang Mitchell MD [address] [place] [address] [address] [address] [email or web address] Consulting Provider Rheumatology 10/02/15 Austin Montoya MD [address] [place] [address] [email or web address] Historical LMR Provider 03/06/17 05/29/21 Hernan Arzola MD [email or web address] Historical LMR Provider 03/06/17 10/20/20 Scott Quiroz MD [address] [address] [email or web address] Historical LMR Provider 03/06/17 10/20/20 Gabriel Malik MD [address] [address] Historical LMR Provider 03/06/17 2 Aaron Collins MD [address] [place] [address] [email or web address] Primary Oncologist Hematology and Oncology 11/30/2208/23 Mee Badillo MBBS [email or web address] Primary Oncologist Medical Oncology 08/25/23 documented as of this encounter Additional Source Comments The information contained in this document represents components of the legal health record. It is not the complete legal health record.[facility]
--- OUTSIDE RECORDS SUMMARY | 2025-01-14 15:42 | XMS_ITS | Encounter Summary ---
Author Organization [facility] Address [address] [place] [address] [place] [address] Phone Care Team Providers Care Visual Inspector Name Role Phone Hernan Arzola MD Unavailable [email or web address] Hoang Mitchell MD Unavailable [phone] Austin Montoya MD Unavailable [phone] Hernan Arzola MD Unavailable [facility] [email or web address] Scott Quiroz MD Unavailable Gabriel Malik MD Unavailable Hernan Arzola MD Primary Care Provider [email or web address] Scott Quiroz MD Primary Care Provider Aaron Collins MD Unavailable Unknown, Unknown Primary Care Provider Mee Beyer Unavailable [phone] Pcp, Unknown Primary Care Provider Unavailabl e Encounter Details Date Type Department Care Team (Latest Contact Info) Description 04/12/2017 Transcribe Orders [facility] [address] [place] [address] Hernan Arzola MD [email or web address] Rosie's granulomatosis (Primary Dx) Social History Tobacco Use Types [...] documented as of this encounter Results * 25-OH vitamin D (04/12/2017 4:41 PM EST) 25 OH VIT D (TOTAL) 33 30 - 1,000 ng/mL [facility] Blood 04/12/2017 4:41 PM EST 04/12/2017 4:43 PM EST us Hernan Arzola MD LAB BLOOD ORDERABLES Final Result [address] [address] * C-Reactive Protein (04/12/2017 4:41 PM EST) C REACTIVE PROTEIN 0.2 0 - 0.5 mg/L [facility] Blood 04/12/2017 4:41 PM EST 04/12/2017 4:43 PM EST Hernan Arzola MD LAB BLOOD ORDERABLES Final Result Performing Organization Address [facility] Phone Number [address] [address] * Comprehensive metabolic panel (04/12/2017 4:41 PM EST) SODIUM 145 133 - 146 mmol/L [facility] POTASSIUM 4.4 3.3 - 5.1 mmol/L [facility] CHLORIDE 107 96 - 108 mmol/L [facility] CO2 25 21 - 35 mmol/L [facility] BUN 15 6 - 19 mg/dL [facility] CREATININE 0.70 0.5 - 1.5 mg/dL [facility] GLUCOSE 86 70 - 99 mg/dL [facility] ALBUMIN 4.1 3.9 - 4.8 g/dL [facility] TOTAL PROTEIN 6.6 6.5 - 8.0 g/dL [facility] CALCIUM 9.1 8.4 - 10.3 mg/dL [facility] ALKALINE PHOSPHATASE 79 39 - 117 U/L [facility] TOTAL BILIRUBIN 0.2 0 - 1.2 mg/dL [facility] AST 19 0 - 37 U/L [facility] ALT 12 0 - 40 U/L [facility] GLOBULIN 2.5 1 - 4.8 g/dL [facility] EGFR >60 >60 mL/min/1.7 3m2 [facility] Comment:Abnormal if <60. If patient is -Georgian, multiply the result by 1.21. ANION GAP 17 10 - 20 mmol/L [facility] Blood 04/12/2017 4:41 PM EST 04/12/2017 4:43 PM EST us Hernan Arzola MD LAB BLOOD ORDERABLES Final Result [facility] [address] [place] [address] * (ABNORMAL) CBC and differential (04/12/2017 4:41 PM EST) WBC 4.36 3.40 - 11.20 K/uL [facility] RBC 3.74(L) 4.50 - 5.50 M/uL [facility] HGB 11.3(L) 13.0 - 17.0 g/dL [facility] HCT 34.8(L) 40.0 - 51.0 % [facility] PLT 230 130 - 400 K/uL [facility] MCV 93.0 79.0 - 98.0 fL [facility] MCH 30.2 27.0 - 34.8 pg [facility] MCHC 32.5 31.5 - 36.0 g/dL [facility] RDW 12.9 10.8 - 14.6 % [facility] MPV 11.7 9.4 - 12.4 fl [facility] NRBC 0.00 /100 WBCs [facility] ABSOLUTE NRBC 0.00 K/uL [facility] DIFF METHOD Auto [facility] NEUTS 58.1 45.30 - 77.70 % [facility] LYMPHS 26.1 12.30 - 39.70 % [facility] MONOS 13.1(H) 4.10 - 12.80 % [facility] EOS 1.4 0 - 7.2 % [facility] BASOS 1.1 0 - 2.80 % [facility] Granulocytes, immature (%) 0.2 0.0 - 0.9 % [facility] ABSOLUTE NEUTS 2.53 1.40 - 7.70 K/uL [facility] ABSOLUTE LYMPHS 1.14 0.60 - 3.20 K/uL [facility] ABSOLUTE MONOS 0.57 0.11 - 0.59 K/uL [facility] ABSOLUTE EOS 0.06 0.01 - 0.50 K/uL [facility] ABSOLUTE BASOS 0.05 0.00 - 0.08 K/uL [facility] Granulocytes, immature 0.01 0.00 - 0.05 K/uL [facility] Blood 04/12/2017 4:41 PM EST 04/12/2017 4:43 PM EST us Hernan Arzola MD LAB BLOOD ORDERABLES Final Result [address] [address] documented in this encounter Visit Diagnoses Diagnosis Rosie's granulomatosis- Primary documented in this encounter Additional Health Concerns Infection Onset Date Last Indicated Resolved Time CoV-Risk 03/04/2021 03/04/2021 03/14/2021 1:22 AM EDT documented as of this encounter Care Teams Visual Inspector Relationship Specialty Start Date End Date Hernan Arzola MD [email or web address] PCP - General Rheumatology 04/10/17 10/23/17 Scott Quiroz MD [address] [place] [address] [email or web address] PCP - General Internal Medicine 10/24/17 12/19/22 Unknown, Kandy, PCP - General 08/01/23 08/16/23 Pcp, Unknown PCP - General 09/19/23 07/24/24 Hernan Arzola MD [email or web address] Internal Medicine 10/02/15 10/20/20 Hoang Mitchell MD [address] [place] [address] [address] [address] [email or web address] Consulting Provider Rheumatology 10/02/15 Austin Montoya MD [address] [place] [address] [email or web address] Historical LMR Provider 03/06/17 05/29/21 Hernan Arzola MD [email or web address] Historical LMR Provider 03/06/17 10/20/20 Scott Quiroz MD [address] [place] [address] [email or web address] Historical LMR Provider 03/06/17 10/20/20 Gabriel Malik MD [address] [address] Historical LMR Provider 03/06/17 2 [place] [address] [place] [address] [email or web address] Primary Oncologist Hematology and Oncology 11/30/2208/23 Mee Badillo MBBS [email or web address] Primary Oncologist Medical Oncology 08/25/23 documented as of this encounter Additional Source Comments The information contained in this document represents components of the legal health record. It is not the complete legal health record.[facility]
--- OUTSIDE RECORDS SUMMARY | 2025-01-14 15:42 | XMS_ITS | Encounter Summary ---
Author Organization [facility] Address [address] [facility] [address] [place] [address] Phone Care Team Providers Care Key Bed Installer Name Role Phone Hoang Mitchell MD Unavailable Scott Quiroz MD Primary Care Provider Aaron Collins MD Unavailable Unknown, Unknown Primary Care Provider Mee Beyer MBBS Unavailable Pcp, Unknown Primary Care Provider Unavailabl e Encounter Details Date Type Department Care Team (Latest Contact Info) Description 08/24/2022 Transcribe Orders Virtual Department [address] [place] [address] Scott Quiroz MD [address] [place] [address] [id number] [email or web address] Cervical spinal stenosis (Primary Dx) Social History Tobacco Use Types [...] as of this encounter Visit Diagnoses Diagnosis Cervical spinal stenosis- Primary Spinal stenosis in cervical region documented in this encounter Care Teams Key Bed Installer Relationship Specialty Start Date End Date Scott Quiroz MD [address] [place] [address] [email or web address] PCP - General Internal Medicine 10/24/17 12/19/22 Unknown, Unknown, MD PCP - General 08/01/23 08/16/23 Pcp, Unknown PCP - General 09/19/23 07/24/24 Hoang Mitchell MD [address] [place] [address] 501_[place] [address] [email or web address] Consulting Provider Rheumatology 10/02/15 Aaron Collins MD [address] [address] [email or web address] Primary Oncologist Hematology and Oncology 11/30/2208/23 Mee Badillo MBBS [email or web address] Primary Oncologist Medical Oncology 08/25/23 documented as of this encounter Additional Source Comments The information contained in this document represents components of the legal health record. It is not the complete legal health record.[facility]
--- OUTSIDE RECORDS SUMMARY | 2025-01-14 15:42 | XMS_ITS | Encounter Summary ---
Author Organization 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 Hoarseness Paralysis of vocal cords and larynx, unilateral Procedures CT Chest Shamar El MD Phone: tel: fax: mailto:[email or web address] Referral ID Status Reason Start Date Expiration Date Visits Re quested Visits Authorized [id number] Closed 01/04/2023 01/04/2024 1 1 * MRI/CAT Scan - Closed Specialty Diagnoses / Procedures Referred By Lasha foreman Referred To Contact Radiology Diagnoses Respiratory disorders in diseases classified elsewhere 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 Hoarseness Paralysis of vocal cords and larynx, unilateral Procedures CT Neck Shamar El MD Phone: tel: fax: mailto:[email or web address] Referral ID Status Reason Start Date Expiration Date Visits Re quested Visits Authorized [id number] Closed 01/04/2023 01/04/2024 1 1 Encounter Details Date Type Department Care Team (Latest Contact Info) Description 01/04/2023 Transcribe Orders Virtual Department [address] [place] [address] Shamar El MD [address] [facility], [address] [place] [address] [email or web address] Respiratory disorders in diseases classified elsewhere (Primary Dx); 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 Interval development of clustered 2 to 3 mm nodules at the left upper lobe. As per Fleischner Society 2017 guidelines, no specific imaging followup is recommended in the absence of systemic malignancy, significant smoking history or risk factors for lung cancer. If the patient is considered high risk for lung malignancy, follow- up CT chest in 12 months may be considered. 2. Similar mural thickening of the proximal trachea again with mild to moderate narrowing. 3. Similar bronchiectasis with atelectasis/scarring at the left upper lobe. 4. 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 Narrative 02/14/2023 8:[address] CHEST WITH CONTRAST TECHNIQUE: Multidetector CT of the chest was performed with intravenous contrast using tailored dose modulation techniques. COMPARISON: CT chest 02/28/2011, CT abdomen pelvis 03/06/2021 FINDINGS: Devices/Tubes/Lines: None. Lungs: Similar linear atelectasis/scarring at the right lower lobe. Similar bronchiectasis and atelectasis/scarring at the lingula. There is mural thickening with mild to moderate narrowing of the trachea at the level of the thyroid, similar to prior. There is interval development of a cluster of 2 to 3 mm nodules at the left upper lobe (5:139). There is a partially calcified left upper lobe granuloma. Additional scattered subcentimeter pulmonary nodules including a 5 mm nodule at the right upper lobe there is similar (5:162). The central airways are clear. Pleura: No pleural effusion or pneumothorax. Mediastinum: No thyroid nodules. The heart is normal in size. There is no pericardial effusion.. Lymph Nodes: No enlarged supraclavicular, axillary, mediastinal, or hilar lymph nodes. 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 Chest Wall: No chest wall mass. Bones: Multilevel degenerative changes of the spine. No destructive osseous lesion. Procedure Note Venus Duval MD - 02/14/2023 CT CHEST WITH CONTRAST TECHNIQUE: Multidetector CT of the chest was performed with intravenouscontrast using tailored dose modulation techniques. COMPARISON: CT chest 02/28/2011, CT abdomen pelvis 03/06/2021 FINDINGS: Devices/Tubes/Lines: None. Lungs: Similar linear atelectasis/scarring at the right lower lobe.Similar bronchiectasis and atelectasis/scarring at the lingula. There ismural thickening with mild to moderate narrowing of the trachea at thelevel of the thyroid, similar to prior. There is interval development of acluster of 2 to 3 mm nodules at the left upper lobe (5:139). There is apartially calcified left upper lobe granuloma. Additional scatteredsubcentimeter pulmonary nodules including a 5 mm nodule at the right upperlobe there is similar (5:162). The central airways are clear. Pleura: No pleural effusion or pneumothorax. Mediastinum: No thyroid nodules. The heart is normal in size. There is nopericardial effusion.. Lymph Nodes: No enlarged supraclavicular, axillary, mediastinal, or hilarlymph nodes. 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 Chest Wall: No chest wall mass. Bones: Multilevel degenerative changes of the spine. No destructiveosseous lesion. IMPRESSION: 1. Interval development of clustered 2 to 3 mm nodules at the left upperlobe. As per Fleischner Society 2017 guidelines, no specific imagingfollowup is recommended in the absence of systemic malignancy, significantsmoking history or risk factors for lung cancer. If the patient isconsidered high risk for lung malignancy, follow-up CT chest in 12 monthsmay be considered. 2. Similar mural thickening of the proximal trachea again with mild tomoderate narrowing. 3. Similar bronchiectasis with atelectasis/scarring at the left upperlobe. 4. 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 us Shamar El MD IMG CT CHEST Final Res ult * CT NECK SOFT TISSUE WITH CONTRAST (02/09/2023 8:31 AM EDT) Anatomical Region Laterality Modality Neck Computed Tomogra phy 02/10/2023 7:47 PM EDT Impressions 02/11/2023 12:41 PM EDT No evidence of cervical mass or lymphadenopathy. Narrative 02/11/2023 12:[address] NECK SOFT TISSUE WITH CONTRAST TECHNIQUE: Multidetector-row CT of the neck was performed with intravenous contrast using tailored dose modulation techniques. Images were reconstructed in the axial, coronal, and sagittal planes. COMPARISON: CT NECK SOFT TISSUE WITH CONTRAST FINDINGS: Aerodigestive Tract: The mucosa appears symmetrical. Lymph Nodes: There are no nodes meeting CT criteria for pathologic involvement. Salivary Glands: No obvious lesion is present. Thyroid Gland: The gland is homogenous in attenuation. Vessels: Mild calcification of bilateral carotid bifurcation without stenosis Paranasal Sinuses and Mastoids: The right maxillary sinus is atelectatic with more thickening and contains similar fluid consistent with chronic sinus disease Brain and Orbits: No detectable abnormality is present in the imaged portions of the brain and orbits. Lung Apices: No abnormal opacity is present. Bones and Soft Tissues: Degenerative changes are present in the cervical spine. Procedure Note Cedric Trinidad MD, PhD - 02/11/2023 CT NECK SOFT TISSUE WITH CONTRAST TECHNIQUE: Multidetector-row CT of the neck was performed with intravenouscontrast using tailored dose modulation techniques. Images werereconstructed in the axial, coronal, and sagittal planes. COMPARISON: CT NECK SOFT TISSUE WITH CONTRAST FINDINGS: Aerodigestive Tract: The mucosa appears symmetrical. Lymph Nodes: There are no nodes meeting CT criteria for pathologicinvolvement. Salivary Glands: No obvious lesion is present. Thyroid Gland: The gland is homogenous in attenuation. Vessels: Mild calcification of bilateral carotid bifurcation withoutstenosis Paranasal Sinuses and Mastoids: The right maxillary sinus is atelectaticwith more thickening and contains similar fluid consistent with chronicsinus disease Brain and Orbits: No detectable abnormality is present in the imagedportions of the brain and orbits. Lung Apices: No abnormal opacity is present. Bones and Soft Tissues: Degenerative changes are present in the cervicalspine. IMPRESSION: No evidence of cervical mass or lymphadenopathy. 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 Hoarseness Dysphonia Paralysis of vocal cords and larynx, unilateral documented in this encounter Additional Health Concerns Assessment Noted Time PHQ-2 Depression Total Score: 2 08/31/19 23 1:37 PM EDT documented as of this encounter Care Teams Press Leader Relationship Specialty Start Date End Date Unknown, Unknown, MD PCP - General 08/01/23 08/16/23 Pcp, Unknown PCP - General 09/19/23 07/24/24 Hoang Mitchell MD [address] [place] [address] [address]_[place] [address] [email or web address] Consulting Provider Rheumatology 10/02/15 Aaron Collins MD [address] [place] [address] [email or web address] Primary Oncologist Hematology and Oncology 11/30/2208/23 Mee Badillo MBBS [email or web address] Primary Oncologist Medical Oncology 08/25/23 documented as of this encounter Additional Source Comments The information contained in this document represents components of the legal health record. It is not the complete legal health record.[facility]
--- OUTSIDE RECORDS SUMMARY | 2025-01-14 15:42 | XMS_ITS | Clinical Summary ---
Author Organization [facility] Address [address] [place] [address] Care Team Providers Care Kick Plate Installer Name Role Phone Scott Quiroz Primary Care Provider [phone] Allergies Active Allergy Reactions Criticality Noted Date [...] 2024 02/23/2024, 11/07/2021, 12/04/2020, Additional history exists Influenza Vaccine (#1) 2025 , 03/23/2022, 03/31/2021, Additional history exists DTaP,Tdap,and Td Vaccines (2 - Td or Tdap) 11/10/2033 11/11/2023 Hepatitis B Vaccines Aged Out No long er eligible based on patient's age to complete this topic Insurance MEDICARE Advance Directives Documents on File Type Date Recorded Patient Room Attendant Expl anation Health Care Proxy 09/25/2024 10:19 PM Check list * Full Code (Latest Code Status on File) Date Activated Date Inactivated Comments 07/18/2024 7:29 PM 09/25/2024 4:27 PM Healthcare Agents on File Name Relationship Healthcare Agent Relationsvt p Communication Jony S Friend Health Care Agent Care Teams Kick Plate Installer Relationship Specialty Start Date End Date Scott Quiroz [address] [place] [id number] PCP - General Internal Medicine 08/20/24
--- OUTSIDE RECORDS SUMMARY | 2025-01-14 15:42 | XMS_ITS | Encounter Summary ---
Author Organization [facility] Address [address] [facility] [address] [place] [address] Phone Care Team Providers Care Clinic Physician Name Role Phone Hernan Arzola MD Unavailable [facility] [email or web address] Hoang Mitchell MD Unavailable [phone] Austin Montoya MD Unavailable [phone] Hernan Arzola MD Unavailable [facility] @[email or web address] hospitalTrans[email or web address] Scott Quiroz MD Unavailable Gabriel Malik MD Unavailable Hernan Arzola MD Primary Care Provider [email or web address] Scott Quiroz MD Primary Care Provider Aaron Collins MD Unavailable [phone] Unknown, Unknown Primary Care Provider Mee Beyer Unavailable [phone] Pcp, Unknown Primary Care Provider Unavailabl e Encounter Details Date Type Department Care Team (Late st Contact Info) Description 08/24/2017 Procedure Pass [facility] PERIOPERATIVE DEPT [address] [place] [address] Social History Tobacco Use Types [...] AM EDT Gender Identity Transgender Male 03/18/2019 2:2 6 PM EDT Sexual Orientation Straight 03/18/2019 2: [...] documented as of this encounter Care Teams Clinic Physician Relationship Specialty Start Date End Date Hernan Arzola MD [email or web address] PCP - General Rheumatology 04/10/17 10/23/17 Scott Quiroz MD [address] [address] [email or web address] PCP - General Internal Medicine 10/24/17 12/19/22 Unknown, Kandy, PCP - General 08/01/23 08/16/23 Pcp, Unknown PCP - General 09/19/23 07/24/24 Hernan Arzola MD [email or web address] Internal Medicine 10/02/15 10/20/20 Hoang Mitchell MD [address] [place] [address] 501_[place] [address] [email or web address] Consulting Provider Rheumatology 10/02/15 Austin Montoya MD [address] [place] [address] [email or web address] Historical LMR Provider 03/06/17 05/29/21 Hernan Arzola MD [email or web address] Historical LMR Provider 03/06/17 10/20/20 Scott Quiroz MD [address] [address] [email or web address] Historical LMR Provider 03/06/17 10/20/20 [place] [address] [place] [address] Historical LMR Provider 03/06/17 2 Aaron Collins MD [address] [place] [address] [email or web address] Primary Oncologist Hematology and Oncology 11/30/2208/23 Mee Badillo MBBS [email or web address] Primary Oncologist Medical Oncology 08/25/23 documented as of this encounter Additional Source Comments The information contained in this document represents components of the legal health record. It is not the complete legal health record.[facility]
--- OUTSIDE RECORDS SUMMARY | 2025-01-14 15:42 | XMS_ITS | Encounter Summary ---
Author Organization [facility] Address [address] [facility] [address] [place] [address] Phone Care Team Providers Care Cosmetology Teacher Name Role Phone Hoang Mitchell MD Unavailable [phone] Aaron Collins MD Unavailable [phone] Unknown, Unknown Primary Care Provider Mee Beyer MBBS Unavailable [phone] Pcp, Unknown Primary Care Provider Unavailabl e Encounter Details Date Type Department Care Team (Late st Contact Info) Description 05/30/2023 Procedure Pass [facility] Periop [address] [place] [address] Social History Tobacco Use Types Packs/Day Years [...] documented as of this encounter Care Teams Cosmetology Teacher Relationship Specialty Start Date End Date Unknown, Unknown, MD PCP - General 08/01/23 08/16/23 Pcp, Unknown PCP - General 09/19/23 07/24/24 Hoang Mitchell MD [address] [place] [address] [address]_[place] [address] [email or web address] Consulting Provider Rheumatology 10/02/15 Aaron Collins MD [address] [address] [email or web address] Primary Oncologist Hematology and Oncology 11/30/2208/23 Mee Badillo MBBS [email or web address] Primary Oncologist Medical Oncology 08/25/23 documented as of this encounter Additional Source Comments The information contained in this document represents components of the legal health record. It is not the complete legal health record.[facility]
--- OUTSIDE RECORDS SUMMARY | 2025-01-14 15:42 | XMS_ITS | Encounter Summary ---
Author Organization [facility] Address [address] [place] [address] Phone Care Team Providers Care Fire Protection Fabricator Name Role Phone Hoang Mitchell MD Unavailable [phone] Mee Badillo MB Unavailable [phone] Encounter Details Date Type Department Care Team (Late st Contact Info) Description 01/13/2025 Transcribe Orders [facility] Specimen Processing [address] [place] [address] Chau Reece MD [address] [facility], [address], [address] [place] [address] [email or web address] Anxiety (Primary Dx) Social History Tobacco Use Types [...] Author No 10/01/2016 8:00 AM EDT Alma Hari MD * Patient is blind or has [...] documented as of this encounter Results * Basic metabolic panel (01/13/2025 4:55 AM EDT) SODIUM 140 133 - 146 mmol/L [facility] CHLORIDE 106 96 - 108 mmol/L [facility] POTASSIUM 4.5 3.3 - 5.1 mmol/L [facility] CO2 21 21 - 35 mmol/L [facility] BUN 15 6 - 19 mg/dL [facility] CREATININE 0.70 0.5 - 1.5 mg/dL [facility] GLUCOSE 99 70 - 99 mg/dL [facility] CALCIUM 8.6 8.4 - 10.3 mg/dL [facility] EGFR 96 >59 mL/min/1.7 3m2 [facility] Comment:Estimated glomerular filtration rate calculated using the CKD-EPI refit equation. ANION GAP 18 10 - 20 mmol/L [facility] Blood 01/13/2025 4:55 AM EDT 01/13/2025 8:14 AM EDT us Chau Reece MD LAB BLOOD ORDERABLES Final Resul t [facility] [address] [place] [address] * (ABNORMAL) CBC and differential (01/13/2025 4:55 AM EDT) WBC 9.37 4.00 - 11.00 K/uL [facility] RBC 3.44(L) 4.50 - 5.90 M/uL [facility] HGB 9.8(L) 13.5 - 17.5 g/dL [facility] HCT 32.0(L) 41.0 - 53.0 % [facility] PLT 328 150 - 450 K/uL [facility] MCV 93.0 80.0 - 100.0 fL [facility] MCH 28.5 27.0 - 31.0 pg [facility] MCHC 30.6(L) 32.0 - 36.0 g/dL [facility] RDW 16.6(H) 11.5 - 14.5 % [facility] MPV 11.4 8.4 - 12.0 fL [facility] NRBC 0.00 0.00 /100 WBCs [facility] ABSOLUTE NRBC 0.00 0.00 K/uL [facility] DIFF METHOD Auto [facility] NEUTS 68.5 48.0 - 76.0 % [facility] LYMPHS 12.2(L) 18.0 - 41.0 % [facility] MONOS 16.2(H) 4.0 - 11.0 % [facility] EOS 2.0 0.0 - 5.0 % [facility] BASOS 0.5 0.0 - 1.5 % [facility] Granulocytes, immature (%) 0.6 0.0 - 0.9 % [facility] ABSOLUTE NEUTS 6.41 1.92 - 7.60 K/uL [facility] ABSOLUTE LYMPHS 1.14 0.72 - 4.10 K/uL [facility] ABSOLUTE MONOS 1.52(H) 0.16 - 1.10 K/uL [facility] ABSOLUTE EOS 0.19 0.00 - 0.50 K/uL [facility] ABSOLUTE BASOS 0.05 0.00 - 0.15 K/uL [facility] Granulocytes, immature 0.06 0.00 - 0.09 K/uL [facility] Blood 01/13/2025 4:55 AM EDT 01/13/2025 8:14 AM EDT us Chau Reece MD LAB BLOOD ORDERABLES Final Resul t Performing Organization Address City/State/[facility] Co de Phone Number [facility] [address] [place] [address] documented in this encounter Visit Diagnoses Diagnosis Anxiety- Primary Anxiety state, unspecified documented in this encounter Additional Health Concerns Assessment Noted Time PHQ-2 Depression Total Score: 2 08/31/19 23 1:37 PM EDT documented as of this encounter Care Teams Fire Protection Fabricator Relationship Specialty Start Date End Date Hoang Mitchell MD [address] [place] [address] [address]_[place] [address] [email or web address] Consulting Provider Rheumatology 10/02/15 Mee Badillo MBBS [address] [place] [address] [address]_[place] [address] [email or web address] Primary Oncologist Medical Oncology 08/25/23 documented as of this encounter Additional Source Comments The information contained in this document represents components of the legal health record. It is not the complete legal health record.[facility]
--- OUTSIDE RECORDS SUMMARY | 2025-01-14 15:42 | XMS_ITS | Encounter Summary ---
Author Organization [employer] Address [address] [facility] 7 [place] [address] Care Team Providers Care [place] Stayer Machine Operator Name Role Phone Unavailable Primary Care [...]
--- OUTSIDE RECORDS SUMMARY | 2025-01-14 15:43 | XMS_ITS | Encounter Summary ---
Author Organization [facility] Address [address] [facility] [address] [place] [address] Phone Care Team Providers Care Dental Surgeon Name Role Phone Hoang Mitchell MD Unavailable [phone] Aaron Collins MD Unavailable [phone] Unknown, Unknown Primary Care Provider Mee BeyerBS Unavailable [phone] Pcp, Unknown Primary Care Provider Unavailabl e Encounter Details Date Type Department Care Team (Late st Contact Info) Description 01/04/2023 Procedure Pass [facility], Ct Scan - [address] [id number] Social History Tobacco Use Types Packs/Day Years [...] documented as of this encounter Care Teams Dental Surgeon Relationship Specialty Start Date End Date Unknown, Unknown, MD PCP - General 08/01/23 08/16/23 Pcp, Unknown PCP - General 09/19/23 07/24/24 Hoang Mitchell MD [address] [place] [address] [address]_[place] [address] [email or web address] Consulting Provider Rheumatology 10/02/15 Aaron Collins MD [address] [place] [address] [email or web address] Primary Oncologist Hematology and Oncology 11/30/2208/23 Mee Badillo MBBS [email or web address] Primary Oncologist Medical Oncology 08/25/23 documented as of this encounter Additional Source Comments The information contained in this document represents components of the legal health record. It is not the complete legal health record.[facility]
--- OUTSIDE RECORDS SUMMARY | 2025-01-14 15:43 | XMS_ITS | Encounter Summary ---
Author Organization [facility] Address [address] [facility] [address] [place] [address] Phone Care Team Providers Care Tie In Machine Operator Name Role Phone Hoang Mitchell MD Unavailable [phone] Aaron Collins MD Unavailable [phone] Unknown, Unknown Primary Care Provider Mee BeyerBS Unavailable [phone] Pcp, Unknown Primary Care Provider Unavailabl e Encounter Details Date Type Department Care Team (Late st Contact Info) Description 01/04/2023 Procedure Pass [facility], Ct Scan - [address] [phone] Social History Tobacco Use Types Packs/Day Years [...] documented as of this encounter Care Teams Tie In Machine Operator Relationship Specialty Start Date End Date Unknown, Unknown, MD PCP - General 08/01/23 08/16/23 Pcp, Unknown PCP - General 09/19/23 07/24/24 Hoang Mitchell MD [address] [place] [address] [address]_[place] [address] [email or web address] LO Consulting Provider Rheumatology 10/02/15 Aaron Collins MD [address] [place] [address] [email or web address] Primary Oncologist Hematology and Oncology 11/30/2208/23 Mee Badillo MBBS [email or web address] Primary Oncologist Medical Oncology 08/25/23 documented as of this encounter Additional Source Comments The information contained in this document represents components of the legal health record. It is not the complete legal health record.[facility]
== END 2025-01-14 15:55 | disposition home or self-care (01) ==
LOC: HO.HMCSH 14:49
PROVIDERS: PCP Physician Assistant Medical; Visit Provider Physician Assistant Medical
DX: F03.90 Unspecified dementia, unspecified severity, without behavioral disturbance, psychotic disturbance, mood disturbance, and anxiety (principal); F60.7 Dependent personality disorder; F33.1 Major depressive disorder, recurrent, moderate; Z09 Encounter for follow-up examination after completed treatment for conditions other than malignant neoplasm; F41.1 Generalized anxiety disorder; F41.0 Panic disorder [episodic paroxysmal anxiety]; J39.8 Other specified diseases of upper respiratory tract; H91.92 Unspecified hearing loss, left ear

== ENCOUNTER → 2025-01-14 14:49 | Outpatient (BNVA) | payer MEDICARE, SELFPAY | PROVIDERS: PCP Physician Assistant Medical; Visit Provider Physician Assistant Medical | DX: Z09 Encounter for follow-up examination after completed treatment for conditions other than malignant neoplasm (principal); F03.90 Unspecified dementia, unspecified severity, without behavioral disturbance, psychotic disturbance, mood disturbance, and anxiety; F41.1 Generalized anxiety disorder; F41.0 Panic disorder [episodic paroxysmal anxiety]; F60.7 Dependent personality disorder; F33.1 Major depressive disorder, recurrent, moderate; J39.8 Other specified diseases of upper respiratory tract; H91.90 Unspecified hearing loss, unspecified ear | CPT/HCPCS: 96127; 99495 ==

== ENCOUNTER 2025-01-21 14:48 | Outpatient (AMB) | payer MEDICARE, SELFPAY ==
--- OUTSIDE RECORDS SUMMARY | 2015-10-02 | XMS_ITS | Encounter Summary ---
Author Organization [facility] Address [address] [place] [address] Phone Care Team Providers Care Cell Tender Helper Name Role Phone Scott Quiroz MD Primary Care Provider [phone] Hernan Arzola MD Unavailable [email or web address] [email or web address] [email or web address] Hoang Mitchell MD Unavailable [phone] Encounter Details Date Type Department Care Team (Late st Contact Info) Description 10/02/2015 Hospital Encounter [facility] [address] [place] [address] Teddy Alas MD [address] [place] [phone] [email or web address] [email or web address] Social History Tobacco Use Types Packs/Day [...] as food, clothing, or medical care? No 05/04/2024 In the past 12 months have y ou been in a relationship with a person who hurts, threatens, or tries to control you? No 05/04/2024 Are you denied basic needs s uch as food, clothing, or medical care? No 05/04/2024 In the past 12 months have y ou been in a relationship with a person who hurts, threatens, or tries to control you? No 05/04/2024 Comments No Sex and Gender Information Value Date Recorded Sex Assigned at Female 03/18/2019 2:26 PM EDT Legal Sex Male 10:39 AM EDT Gender Identity Transgender Male 03/18/2019 2:26 PM EDT Sexual Orientation Straight 03/18/2019 2: 26 PM EDT documented as of this encounter Functional Status * Calculated C-SSRS Risk Score (Lifetime/Recent) Answer Date of Assessment Author No Risk Indicated 05/04/2024 8:36 PM Dayo Manriquez, MARIIA * [place] Suicide Severity Rating Scale (Screener/Recent Self-Report) Question Answer Date of Assessment Author 1. Wish to be (Past 1 Month) No 024 8:36 PM Dayo Manriquez, RN 2. Non-Specific Active Suici eunice Thoughts (Past 1 Month) No 05/04/2024 8:36 PM Dayo Manriquez, RN 6. Suicidal Behavior (Lifetime) No 4 8:36 PM Dayo Manriquez, RN documented as of this encounter Plan of Treatment Not on file documented as of this encounter Procedures Procedure Name Priority Date/Time Associated Diagnosis Comments XR HEAD OUTSIDE (NO INTERPRETATION) Routine 10/02/2015 12:00 AM EDT documented in this encounter Results * XR Head Outside (No Interpretation) (10/02/2015 12:00 AM EDT) Narrative [facility] [place] [place] - 10/06/2015 10:46 AM EDT This study is for PACS storage only and not for interpretation. Procedure Note SYSTEMGENERATED, DOCUMENTATION - 10/06/2015 This study is for PACS storage only and not for interpretation. us Teddy Alas MD IMG OUTSIDE IMAGING W/ OUT INTERPRETATION Final Result [facility]ACES documented in this encounter Visit Diagnoses Not on filedocumented in this encounter Additional Health Concerns Infection Onset Date Last Indicated Resolved Time CoV-Risk 03/04/2021 03/04/2021 03/14/2021 1:22 AM EDT documented as of this encounter Care Teams Cell Tender Helper Relationship Specialty Start Date End Date Scott Quiroz MD [address] [address] [email or web address] PCP - General 11/19/13 04/09/17 Hernan Arzola MD [email or web address] Internal Medicine 10/02/15 10/20/20 Hoang Mitchell MD [address] [place] [address] [address]_[place] [address] [email or web address] Consulting Provider Rheumatology 10/02/15 documented as of this encounter Additional Source Comments The information contained in this document represents components of the legal health record. It is not the complete legal health record.[facility]
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
--- OUTSIDE RECORDS SUMMARY | 2025-01-21 16:00 | XMS_ITS | Encounter Summary ---
Author Organization [facility] Address [address] [place] [address] [place] [address] Phone Care Team Providers Care Operator Technician Name Role Phone Scott Quiroz MD Primary Care Provider [phone] Hernan Arzola MD Unavailable [email or web address] [email or web address] Hoang Mitchell MD Unavailable [phone] Austin Montoya MD Unavailable [phone] Hernan Arzola MD Unavailable [email or web address] Scott Quiroz MD Unavailable [phone] Gabriel Malik MD Unavailable [phone] Hernan Arzola MD Primary Care Provider [email or web address] Scott Quiroz MD Primary Care Provider [phone] Aaron Collins MD Unavailable Unknown, Unknown Primary Care Provider Mee Beyer Unavailable [phone] Pcp, Unknown Primary Care Provider Unavailabl e Encounter Details Date Type Department Care Team (Late st Contact Info) Description 09/30/2016 Procedure Pass [facility] PERIOPER[facility]IVE DEPT [address] [place] [address] Social History Tobacco Use Types [...] documented as of this encounter Care Teams Operator Technician Relationship Specialty Start Date End Date Scott Quiroz MD [address] [address] [email or web address] PCP - General 11/19/13 04/09/17 Hernan Arzola MD [email or web address] PCP - General Rheumatology 04/10/17 10/23/17 Scott Quiroz MD [address] [place] [address] [email or web address] PCP - General Internal Medicine 10/24/17 12/19/22 Unknown, Kandy, PCP - General 08/01/23 08/16/23 Pcp, Unknown PCP - General 09/19/23 07/24/24 Hernan Arzola MD [email or web address] Internal Medicine 10/02/15 10/20/20 Hoang Mitchell MD [address] [place] [address] [address]_[place] [address] [email or web address] [email or web address] Provider Rheumatology 10/02/15 Austin Montoya MD [address] [address] [email or web address] Historical LMR Provider 03/06/17 05/29/21 Hernan Arzola MD [email or web address] Historical LMR Provider 03/06/17 10/20/20 Scott Quiroz MD [address] [place] [address] [email or web address] Historical LMR Provider 03/06/17 10/20/20 Gabriel Malik MD [address] [address] Historical LMR Provider 03/06/17 2 Aaron Collins MD [address] [place] [address] [email or web address] Primary Oncologist Hematology and Oncology 11/30/2208/23 Mee Badillo MBBS [email or web address] Primary Oncologist Medical Oncology 08/25/23 documented as of this encounter Additional Source Comments The information contained in this document represents components of the legal health record. It is not the complete legal health record.[facility]
--- OUTSIDE RECORDS SUMMARY | 2025-01-21 16:01 | XMS_ITS | Encounter Summary ---
Author Organization [facility] Address [address] [place] [address] Phone Care Team Providers Care Engineering Department Chair Name Role Phone Hoang Mitchell MD Unavailable Mee Badillo MBBS Unavailable Pcp, Unknown Primary Care Provider Unavailabl e Encounter Details Date Type Department Care Team (Late st Contact Info) Description 10/06/2023 Procedure Pass [facility] Endoscopy Admitting Dept Virtual Department [address] [place] [address] Social History Tobacco Use Types Packs/Day Years [...] documented as of this encounter Care Teams Engineering Department Chair Relationship Specialty Start Date End Date Pcp, Unknown PCP - General 09/19/23 07/24/24 Hoang Mitchell MD [address] [place] [address]_[place] [address] [email or web address] Consulting Provider Rheumatology 10/02/15 Mee Badillo MBBS [address] [place] [address]_[place] [address] [email or web address] Primary Oncologist Medical Oncology 08/25/23 documented as of this encounter Additional Source Comments The information contained in this document represents components of the legal health record. It is not the complete legal health record.[facility]
--- OUTSIDE RECORDS SUMMARY | 2025-01-21 16:01 | XMS_ITS | Encounter Summary ---
Author Organization [facility] Address [address] [place] [address] [place] [address] Phone Care Team Providers Care Laborer Cook House Name Role Phone Hernan Arzola MD Unavailable [email or web address] Hoang Mitchell MD Unavailable [phone] Austin Montoya MD Unavailable [phone] Hernan Arzola MD Unavailable [facility] [email or web address] [email or web address] [facility] Scott Quiroz MD Unavailable [phone] Gabriel Malik MD Unavailable Hernan Arzola MD Primary Care Provider [email or web address] [email or web address] Scott Quiroz MD Primary Care Provider [phone] Aaron Collins MD Unavailable Unknown, Unknown Primary Care Provider Mee Beyer Unavailable [phone] Pcp, Unknown Primary Care Provider Unavailabl e Encounter Details Date Type Department Care Team (Latest Contact Info) Description 04/12/2017 Transcribe Orders [facility] [address] [place] [address] Hernan Arzola MD [email or web address] Rosie's granulomatosis (Primary Dx) Social [...] Arzola MD LAB BLOOD ORDERABLES Final Result [address] [address] * C-Reactive Protein (04/12/2017 4:41 PM EST) C REACTIVE PROTEIN 0.2 0 - 0.5 mg/L [facility] Blood 04/12/2017 4:41 PM EST 04/12/2017 4:43 PM EST Hernan Arzola MD LAB BLOOD ORDERABLES Final Result Performing Organization Address [facility] Co de Phone Number [address] [address] * Comprehensive metabolic panel (04/12/2017 4:41 PM [...] HOSPITAL Comment:Abnormal if <60. If patient is -Ukrainian, multiply the result by 1.21. ANION GAP 17 10 - 20 mmol/L [facility] Blood 04/12/2017 4:41 PM EST 04/12/2017 4:43 PM EST us Hernan Arzola MD LAB BLOOD ORDERABLES Final Result [facility] [address] [place] [address] * (ABNORMAL) CBC and differential (04/12/2017 4:41 [...] Arzola MD LAB BLOOD ORDERABLES Final Result [address] [address] documented in this encounter Visit Diagnoses Diagnosis Rosie's granulomatosis- Primary documented in this encounter Additional Health Concerns Infection Onset Date Last Indicated Resolved Time CoV-Risk 03/04/2021 03/04/2021 03/14/2021 1:22 AM EDT documented as of this encounter Care Teams Laborer Cook House Relationship Specialty Start Date End Date Hernan Arzola MD [email or web address] PCP - General Rheumatology 04/10/17 10/23/17 Scott Quiroz MD [address] [place] [address] [email or web address] PCP - General Internal Medicine 10/24/17 12/19/22 Unknown, Kandy, PCP - General 08/01/23 08/16/23 Pcp, Unknown PCP - General 09/19/23 07/24/24 Hernan Arzola MD [email or web address] Internal Medicine 10/02/15 10/20/20 Hoang Mitchell MD [address] [place] [address] [address] [address] [email or web address] Consulting Provider Rheumatology 10/02/15 Austin Montoya MD [address] [place] [address] [email or web address] [email or web address] Historical LMR Provider 03/06/17 05/29/21 Hernan Arzola MD [email or web address] Historical LMR Provider 03/06/17 10/20/20 Scott Quiroz MD [address] [place] [address] [email or web address] Historical LMR Provider 03/06/17 10/20/20 Gabriel Malik MD [address] [address] Historical LMR Provider 03/06/17 2 [place] [address] [place] [address] [email or web address] [email or web address] Primary Oncologist Hematology and Oncology 11/30/2208/23 Mee Badillo MBBS [email or web address] Primary Oncologist Medical Oncology 08/25/23 documented as of this encounter Additional Source Comments The information contained in this document represents components of the legal health record. It is not the complete legal health record.[facility]
--- OUTSIDE RECORDS SUMMARY | 2025-01-21 16:01 | XMS_ITS | Encounter Summary ---
Author Organization [facility] Address [address] [place] [address] [place] [address] Phone Care Team Providers Care Digital Asset Specialist Name Role Phone Hernan Arzola MD Unavailable [facility] [email or web address] Hoang Mitchell MD Unavailable [phone] Austin Montoya MD Unavailable [phone] Hernan Arzola MD Unavailable [facility] [email or web address] Scott Quiroz MD Unavailable Gabriel aMlik MD Unavailable Scott Quiroz MD Primary Care Provider Aaron Collins MD Unavailable Unknown, Unknown Primary Care Provider Mee Beyer Unavailable Pcp, Unknown Primary Care Provider Unavailabl e Encounter Details Date Type Department Care Team ([facility] st Contact Info) Description 02/13/2019 Ancillary Orders Virtual Department [address] [place], [place] [id number] Scott Quiroz MD [address] [place] [phone] [email or web address] Frequent urination Social History Tobacco Use Types [...] mass. POS - [id number] Scott Quiroz MD [facility] Final Result documented in this encounter Visit Diagnoses Diagnosis Frequent urination Urinary frequency Frequent urination Urinary frequency documented in this encounter Additional Health Concerns Infection Onset Date Last Indicated Resolved Time CoV-Risk 03/04/2021 03/04/2021 03/14/2021 1:22 AM EDT documented as of this encounter Care Teams Digital Asset Specialist Relationship Specialty Start Date End Date Scott Quiroz MD [address] [place] [address] [email or web address] city va medical [email or web address] - [facility] PCP - General Internal Medicine 10/24/17 12/19/22 Unknown, MD Kandy PCP - General 08/01/23 08/16/23 Pcp, Unknown PCP - General 09/19/23 07/24/24 Hernan Arzola MD [email or web address] Internal Medicine 10/02/15 10/20/20 Hoang Mitchell MD [address] [place] [address] 501_[place] [address] [email or web address] Consulting Provider Rheumatology 10/02/15 Austin Montoya MD [address] [place] [address] 2[address] [place] [address] [email or web address] Historical LMR Provider 03/06/17 05/29/21 Hernan Arzola MD [email or web address] Historical LMR Provider 03/06/17 10/20/20 Scott Quiroz MD [address] [place] [address] [email or web address] Historical LMR Provider 03/06/17 10/20/20 Gabriel Malik MD 3500 [facility] [address] [place] [address] Historical LMR Provider 03/06/17 [place] [address] [place] [address] [email or web address] Primary Oncologist Hematology and Oncology 11/30/2208/23 Mee Badillo MBBS [email or web address] Primary Oncologist Medical Oncology 08/25/23 documented as of this encounter Additional Source Comments The information contained in this document represents components of the legal health record. It is not the complete legal health record.[facility]
--- OUTSIDE RECORDS SUMMARY | 2025-01-21 16:01 | XMS_ITS | Encounter Summary ---
Author Organization [facility] Address [address] [facility] [address] [place] [address] Phone Care Team Providers Care Sound Effects Supervisor Name Role Phone Hoang Mitchell MD Unavailable [phone] Scott Quiroz MD Primary Care Provider Aaron Collins MD Unavailable Unknown, Unknown Primary Care Provider Mee Beyer MBBS Unavailable [phone] Pcp, Unknown Primary Care Provider Unavailabl e Encounter Details Date Type Department Care Team (Latest Contact Info) Description 09/09/2021 Transcribe Orders Virtual Department [address] [place] [address] Scott Quiroz MD [address] [place] [address] [phone] [email or web address] Pre-procedure lab exam (Primary Dx) Social History [...] Order (09/12/2021 2:58 PM EDT) COVID-19 Comment [id number] [facility] COVID Testing Status Specimen received in analyzing lab. Results should be available within 24 to 48 hrs. [facility] Other 09/12/2021 2:58 PM EDT 09/12/2021 5:47 PM EDT us Scott Quiroz MD BODY FLUIDS AND STOOLS ORDER PORTIA Final Result [facility] [address] [place] [address] [address] documented in this encounter Visit Diagnoses Diagnosis Pre-procedure lab exam- Primary Pre-procedural laboratory examination documented in this encounter Care Teams Sound Effects Supervisor Relationship Specialty Start Date End Date Scott Quiroz MD [address] [address] [email or web address] PCP - General Internal Medicine 10/24/17 12/19/22 Unknown, Unknown, MD PCP - General 08/01/23 08/16/23 Pcp, Unknown PCP - General 09/19/23 07/24/24 Hoang Mitchell MD [address] [place] [address] 501_[place] [address] [email or web address] Consulting Provider Rheumatology 10/02/15 Aaron Collins MD [address] [place] [address] [email or web address] Primary Oncologist Hematology and Oncology 11/30/2208/23 Mee Badillo MBBS [email or web address] Primary Oncologist Medical Oncology 08/25/23 documented as of this encounter Additional Source Comments The information contained in this document represents components of the legal health record. It is not the complete legal health record.[facility]
--- OUTSIDE RECORDS SUMMARY | 2025-01-21 16:01 | XMS_ITS | Encounter Summary ---
Author Organization [facility] Address [address] [place] [address] Phone Care Team Providers Care Thread Spinner Name Role Phone Hoang Mitchell MD Unavailable [phone] Aaron Collins MD Unavailable [phone] Unknown, Unknown Primary Care Provider Mee Beyer MBBS Unavailable [phone] Pcp, Unknown Primary Care Provider Unavailabl e Encounter Details Date Type Department Care Team (Late st Contact Info) Description 05/30/2023 Procedure Pass [facility] Periop [address] [place] [address] Social History Tobacco Use Types Packs/Day Years [...] documented as of this encounter Care Teams Thread Spinner Relationship Specialty Start Date End Date Unknown, Unknown, MD PCP - General 08/01/23 08/16/23 Pcp, Unknown PCP - General 09/19/23 07/24/24 Hoang Mitchell MD [address] [place] [address] [address]_[place] [address] [email or web address] Consulting Provider Rheumatology 10/02/15 Aaron Collins MD [address] [address] [email or web address] Primary Oncologist Hematology and Oncology 11/30/2208/23 Mee Badillo MBBS [email or web address] Primary Oncologist Medical Oncology 08/25/23 documented as of this encounter Additional Source Comments The information contained in this document represents components of the legal health record. It is not the complete legal health record.[facility]
--- OUTSIDE RECORDS SUMMARY | 2025-01-21 16:01 | XMS_ITS | Clinical Summary ---
Author Organization [facility] Address [address] [place] [address] Care Team Providers Care Auto Body Worker Name Role Phone Scott Quiroz Primary Care Provider [phone] Allergies Active Allergy Reactions Criticality Noted Date [...] series) 2024 COVID-19 Vaccine (5 - season) 2025 02/23/2024, 11/07/2021, 12/04/2020, Additional history exists Influenza Vaccine (#1) 2025 , 03/23/2022, 03/31/2021, Additional history exists DTaP,Tdap,and Td Vaccines (2 - Td or Tdap) 11/10/2033 11/11/2023 Hepatitis B Vaccines Aged Out No long er eligible based on patient's age to complete this topic Insurance MEDICARE Advance Directives Documents on File Type Date Recorded Patient Product Safety Officer Expl anation Health Care Proxy 09/25/2024 10:19 PM Check list * Full Code (Latest Code Status on File) Date Activated Date Inactivated Comments 07/18/2024 7:29 PM 09/25/2024 4:27 PM Healthcare Agents on File Name Relationship Healthcare Agent Relationsma p Communication Jony S Friend Health Care Agent Care Teams Auto Body Worker Relationship Specialty Start Date End Date Scott Quiroz [address] [place] [address] PCP - General Internal Medicine 08/20/24
--- OUTSIDE RECORDS SUMMARY | 2025-01-21 16:01 | XMS_ITS | Encounter Summary ---
Author Organization [facility] Address [address] [place] [address] Phone Care Team Providers Care Transplant Rn Name Role Phone Hernan Arzola MD Unavailable [facility] [email or web address] [email or web address] Hoang Mitchell MD Unavailable [phone] Austin Montoya MD Unavailable [phone] Hernan Arzola MD Unavailable [facility] centerashlyn [email or web address] Scott Quiroz MD Unavailable [phone] Gabriel Malik MD Unavailable Scott Quiroz MD Primary Care Provider [phone] Aaron Collins MD Unavailable Unknown, Unknown Primary Care Provider Mee Beyer [facility] Unavailable [phone] Pcp, Unknown Primary Care Provider Unavailabl e Reason for Referral * Physical Therapy (Routine) - Closed Specialty Diagnoses / Procedures Referred By Contpedro t Referred To Contact Physical Therapy Diagnoses Encounter for rehabilitation Pelvic Floor Procedures Evaluate & Treat Ketan Head MD Phone: tel: fax: mailto:[email or web address] [address] [address] Phone: tel: Referral ID Status Reason Start Date Expiration Date Visits Re quested Visits Authorized [id number] Closed 05/24/2018 05/21/2020 99 99 Encounter Details Date Type Department Care Team (Latest Contact Info) Description 03/19/2019 Transcribe Orders [facility] [address] [place] [address] Ketan Head MD [address] [place] [address], [place] [address] [email or web address] Encounter for rehabilitation (Primary Dx) Social History [...] Diagnoses Orde r Schedule Amb[facility] referral [facility] Physical Therapy Outpatient Referral Routine Encounter for rehabilitation Ordered: 03/19/2019 documented as of this encounter Visit Diagnoses Diagnosis Encounter for rehabilitation- Primary documented in this encounter Additional Health Concerns Infection Onset Date Last Indicated Resolved Time CoV-Risk 03/04/2021 03/04/2021 03/14/2021 1:22 AM EDT documented as of this encounter Care Teams Transplant Rn Relationship Specialty Start Date End Date Scott Quiroz MD [address] [place] [address] [email or web address] PCP - General Internal Medicine 10/24/17 12/19/22 Unknown, Kandy, PCP - General 08/01/23 08/16/23 Pcp, Unknown PCP - General 09/19/23 07/24/24 Hernan Arzola MD [email or web address] Internal Medicine 10/02/15 10/20/20 Hoang Mitchell MD [address] [place] [address] [address]_[place] [address] [email or web address] Consulting Provider Rheumatology 10/02/15 Austin Montoya MD [address] [place] [address] [email or web address] Historical LMR Provider 03/06/17 05/29/21 Hernan Arzola MD [email or web address] Historical LMR Provider 03/06/17 10/20/20 Scott Quiroz MD [address] [address] [email or web address] Historical LMR Provider 03/06/17 10/20/20 Gabriel Malik MD 3500 [facility] [address] [place] [address] Historical LMR Provider 03/06/17 2 Aaron Collins MD [facility] [address] [address] [email or web address] Primary Oncologist Hematology and Oncology 11/30/2208/23 Mee Badillo MBBS [email or web address] Primary Oncologist Medical Oncology 08/25/23 documented as of this encounter Additional Source Comments The information contained in this document represents components of the legal health record. It is not the complete legal health record.[facility]
--- OUTSIDE RECORDS SUMMARY | 2025-01-21 16:01 | XMS_ITS | Encounter Summary ---
Author Organization [facility] Address [address] [place] [address] [place] [address] Phone Care Team Providers Care Ruby Rails Developer Name Role Phone Hernan Arzola MD Unavailable [facility] hospitallynne [email or web address] Hoang Mitchell MD Unavailable [phone] Austin Montoya MD Unavailable [phone] Hernan Arzola MD Unavailable [facility] facilityashlyn [email or web address] Scott Quiroz MD Unavailable [phone] Gabriel Malik MD Unavailable Scott Quiroz MD Primary Care Provider [phone] Aaron Collins MD Unavailable Unknown, Unknown Primary Care Provider Mee Beyer Unavailable [phone] Pcp, Unknown Primary Care Provider Unavailabl e Reason for Referral * Physical Therapy (Elective) - Closed Specialty Diagnoses / Procedures Referred By Lasha t Referred To Contact Physical Therapy Diagnoses Encounter for rehabilitation Left Shoulder Pain Scott Quiroz MD Phone: tel: fax: mailto:[email or web address] [address] [address] Phone: tel: Referral ID Status Reason Start Date Expiration Date Visits Re quested Visits Authorized [id number] Closed 11/23/2018 03/01/2019 99 99 Encounter Details Date Type Department Care Team (Latest Contact Info) Description 11/23/2018 Transcribe Orders [facility] [address] [place] [address] Scott Quiroz MD [address] [place] [address] [email or web address] g Encounter for rehabilitation (Primary Dx) Social [...] Diagnoses Orde r Schedule Ambulatory referral to [facility] Physical Therapy Outpatient Referral Routine Encounter for rehabilitation Ordered: 11/23/2018 documented as of this encounter Visit Diagnoses Diagnosis Encounter for rehabilitation- Primary documented in this encounter Additional Health Concerns Infection Onset Date Last Indicated Resolved Time CoV-Risk 03/04/2021 03/04/2021 03/14/2021 1:22 AM EDT documented as of this encounter Care Teams Ruby Rails Developer Relationship Specialty Start Date End Date Scott Quiroz MD [address] [place] [address] [email or web address] PCP - General Internal Medicine 10/24/17 12/19/22 Unknown, Kandy, MD PCP - General 08/01/23 08/16/23 Pcp, Unknown PCP - General 09/19/23 07/24/24 Hernan Arzola MD [email or web address] Internal Medicine 10/02/15 10/20/20 Hoang Mitchell MD [address] [place] [address] [address]_[place] [address] [email or web address] Consulting Provider Rheumatology 10/02/15 Austin Montoya MD [address] [place] [address] [email or web address] Historical LMR Provider 03/06/17 05/29/21 Hernan Arzola MD [email or web address] Historical LMR Provider 03/06/17 10/20/20 Scott Quiroz MD [address] [address] [email or web address] Historical LMR Provider 03/06/17 10/20/20 Gabriel Malik MD [address] [address] Historical LMR Provider 03/06/17 2 Aaron Collins MD [address] [place] [address] [email or web address] Primary Oncologist Hematology and Oncology 11/30/2208/23 Mee Badillo MBBS [email or web address] Primary Oncologist Medical Oncology 08/25/23 documented as of this encounter Additional Source Comments The information contained in this document represents components of the legal health record. It is not the complete legal health record.[facility]
--- OUTSIDE RECORDS SUMMARY | 2025-01-21 16:01 | XMS_ITS | Encounter Summary ---
Author Organization [facility] Address [address] [facility] [address] [place] [address] Phone Care Team Providers Care Leader Tier Name Role Phone Hoang Mitchell MD Unavailable [phone] Aaron Collins MD Unavailable [phone] Unknown, Unknown Primary Care Provider Mee BeyerBS Unavailable [phone] Pcp, Unknown Primary Care Provider Unavailabl e Encounter Details Date Type Department Care Team (Late st Contact Info) Description 01/04/2023 Procedure Pass [facility], Ct Scan - [address] [phone] Social History Tobacco Use Types Packs/Day Years [...] documented as of this encounter Care Teams Leader Tier Relationship Specialty Start Date End Date Unknown, Unknown, MD PCP - General 08/01/23 08/16/23 Pcp, Unknown PCP - General 09/19/23 07/24/24 Hoang Mitchell MD [address] [place] [address] [address]_[place] [address] [email or web address] Consulting Provider Rheumatology 10/02/15 Aaron Collins MD [address] [place] [address] [email or web address] Primary Oncologist Hematology and Oncology 11/30/2208/23 Mee Badillo MBBS [email or web address] Primary Oncologist Medical Oncology 08/25/23 documented as of this encounter Additional Source Comments The information contained in this document represents components of the legal health record. It is not the complete legal health record.[facility]
--- OUTSIDE RECORDS SUMMARY | 2025-01-21 16:01 | XMS_ITS | Encounter Summary ---
Author Organization [facility] Address [address] [place] [address] [place] [address] Phone Care Team Providers Care Still Operator Gin Name Role Phone Hoang Mitchell MD Unavailable [phone] Aaron Collins MD Unavailable [phone] Unknown, Unknown Primary Care Provider Mee Beyer MBBS Unavailable [phone] Pcp, Unknown Primary Care Provider Unavailabl e Reason for Referral * MRI/CAT Scan - Closed Specialty Diagnoses / Procedures Referred By Lasha foreman Referred To Contact Radiology Diagnoses Respiratory disorders in diseases classified elsewhere 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 Hoarseness Paralysis of vocal cords and larynx, unilateral Procedures CT Chest Shamar El MD Phone: tel: fax: mailto:[email or web address] Referral ID Status Reason Start Date Expiration Date Visits Re quested Visits Authorized [id number] Closed 01/04/2023 01/04/2024 1 1 * MRI/CAT Scan - Closed Specialty Diagnoses / Procedures Referred By Lasha foreman Referred To Contact Radiology Diagnoses Respiratory disorders in diseases classified elsewhere 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 Hoarseness Paralysis of vocal cords and larynx, unilateral Procedures CT Neck Shamar El MD Phone: tel: fax: mailto:[email or web address] Referral ID Status Reason Start Date Expiration Date Visits Re quested Visits Authorized [id number] Closed 01/04/2023 01/04/2024 1 1 Encounter Details Date Type Department Care Team (Latest Contact Info) Description 01/04/2023 Transcribe Orders Virtual Department [address] [place] [address] Shamar El MD [address] [facility], [address] [place] [address] [email or web address] Respiratory disorders in diseases classified elsewhere [...] documented as of this encounter Care Teams Still Operator Gin Relationship Specialty Start Date End Date Unknown, Unknown, MD PCP - General 08/01/23 08/16/23 Pcp, Unknown PCP - General 09/19/23 07/24/24 Hoang Mitchell MD [address] [place] [address] [address]_[place] [address] [email or web address] Consulting Provider Rheumatology 10/02/15 Aaron Collins MD [address] [place] [address] [email or web address] Primary Oncologist Hematology and Oncology 11/30/2208/23 Mee Badillo MBBS [email or web address] Primary Oncologist Medical Oncology 08/25/23 documented as of this encounter Additional Source Comments The information contained in this document represents components of the legal health record. It is not the complete legal health record.[facility]
--- OUTSIDE RECORDS SUMMARY | 2025-01-21 16:01 | XMS_ITS | Encounter Summary ---
Author Organization [facility] Address [address] [email or web address] [facility] [address] [place] [address] Phone Care Team Providers Care Roll Up Guider Operator Name Role Phone Hoang Mitchell MD Unavailable [phone] Aaron Collins MD Unavailable [phone] Unknown, Unknown Primary Care Provider Mee Beyer MBBS Unavailable [phone] Pcp, Unknown Primary Care Provider Unavailabl e Encounter Details Date Type Department Care Team (Late st Contact Info) Description 05/19/2023 Procedure Pass [facility] Periop [address] [place] [address] Social History Tobacco Use Types Packs/Day Years [...] documented as of this encounter Care Teams Roll Up Guider Operator Relationship Specialty Start Date End Date Unknown, Unknown, MD PCP - General 08/01/23 08/16/23 Pcp, Unknown PCP - General 09/19/23 07/24/24 Hoang Mitchell MD [address] [place] [address] [address]_[place] [address] [email or web address] Consulting Provider Rheumatology 10/02/15 Aaron Collins MD [address] [address] [email or web address] Primary Oncologist Hematology and Oncology 11/30/2208/23 Mee Badillo MBBS [email or web address] Primary Oncologist Medical Oncology 08/25/23 documented as of this encounter Additional Source Comments The information contained in this document represents components of the legal health record. It is not the complete legal health record.[facility]
--- OUTSIDE RECORDS SUMMARY | 2025-01-21 16:01 | XMS_ITS | Encounter Summary ---
Author Organization [facility] Address [address] [email or web address] [facility] [address] [place] [address] Phone Care Team Providers Care Lead Pharmacy Technician Name Role Phone Hoang Mitchell MD Unavailable [phone] Mee Badillo MB Unavailable [phone] Reason for Referral * Home Health Care - New Request Specialty Diagnoses / Procedures Referred By Lasha foreman Referred To Contact Home Health Services Juan R Black MD [address] [place] [address] Phone: tel: [email or web address] Home Care [address] [place] [phone] Phone: tel: Referral ID Status Reason Start Date Expiration Date V isits Requested Visits Authorized [id number] New Request 01/16/2025 01/16/2026 1 1 Encounter Details Date Type Department Care Team (Late st Contact Info) Description 01/16/2025 Orders Only [facility] [address] [place], [place] [phone] Juan R Black MD [facility] [place] [address] Social History Tobacco Use Types Packs/Day Years [...] Type Priority Associated Diagnoses Orde r Schedule 4NEXT REFERRAL TO HOME HEALTH Outpatient Referral Routine Ordered: 01/16/2025 documented as of this encounter Visit Diagnoses Not on filedocumented in this encounter Additional Health Concerns Assessment Noted Time PHQ-2 Depression Total Score: 2 08/31/19 23 1:37 PM EDT documented as of this encounter Care Teams Lead Pharmacy Technician Relationship Specialty Start Date End Date Hoang Mitchell MD [address] [place] [address]_[place] [address] [email or web address] Consulting Provider Rheumatology 10/02/15 Mee Badillo MBBS [address] [place] [address]_[place] [address] [email or web address] Primary Oncologist Medical Oncology 08/25/23 documented as of this encounter Additional Source Comments The information contained in this document represents components of the legal health record. It is not the complete legal health record.[facility]
--- OUTSIDE RECORDS SUMMARY | 2025-01-21 16:01 | XMS_ITS | Encounter Summary ---
Author Organization [facility] Address [address] [place] [address] Phone Care Team Providers Care Radio Disc Jockey Name Role Phone Hoang Mitchell MD Unavailable Mee Badillo MBBS Unavailable [phone] Pcp, Unknown Primary Care Provider Unavailabl e Encounter Details Date Type Department Care Team (Late st Contact Info) Description 02/29/2024 Procedure Pass [facility] Periop [address] [place] [address] Social History Tobacco Use Types Packs/Day Years [...] documented as of this encounter Care Teams Radio Disc Jockey Relationship Specialty Start Date End Date Pcp, Unknown PCP - General 4/30/24 3/5/25 Hoang Mitchell MD [address] [place] [address] [address]_[place] [address] [email or web address] Consulting Provider Rheumatology 10/02/15 Mee Badillo MBBS [address] [place] [address] [address]_[place] [address] [email or web address] Primary Oncologist Medical Oncology 08/25/23 documented as of this encounter Additional Source Comments The information contained in this document represents components of the legal health record. It is not the complete legal health record.[facility]
--- OUTSIDE RECORDS SUMMARY | 2025-01-21 16:01 | XMS_ITS ---
Author Organization [facility] Care Team Providers Care Pharmacoepidemiologist Name Role Phone JACOBY LIN Unavailable Unavailable WILLIAMS CLAROS Unavailable Unavailable Allergies and adverse reactions Code CodeSystem Substance Reaction Severity StartDate Concern Status pollen extracts Unknown 01/03/2025 activ e Morpholine Analogues Unknown 01/03/2025 active 0254 RXNORM Meperidine Unknown 01/03/2025 active 2551 RXNORM Ciprofloxacin Unknown 01/03/2025 active 723 RXNORM Amoxicillin Unknown 01/03/2025 active Care Team Name Role Address Phone Organization Dates WILLIAMS CLAR[facility] [address] [facility]. [address], [place], [address], [place] (Office): : [facility] 01/03/2025 - 01/20/2025 JACOBY LIN [address] [place] [address], [place], [address], [place] (Office): : [facility] 01/03/2025 - 01/20/2025 Goals Section Goals Description Status Target Date Advance Directive choices will be honored throug h next review Active 04/11/2025 Shalom will be appropriately ev aluated and re-evaluated for specialized services as needed per state requirements. Active 04/11/2025 Shalom will continue to feel sa fe in his current environment as evidenced by weekly participation in the life of the facility including rehab and/or activities of choice through next review date. Active 04/11/2025 Shalom will experience adequate sleep to enable participation in treatment plan x 90 days. Active 04/11/2025 Shalom will express his feelings with staff as need ed x 90 days. Active 04/11/2025 Shalom will receive appropriate [facility] services as needed to attain or maintain his highest practicable psychological, physical, functional, and psychosocial well-being. Active Shalom will report to staff any disturbing memories, thoughts, or images of a stressful experience from the past through next review date. Active 04/11/2025 Shalom's bathing is to be done by female staff, per his request. He has no preference for other care. Active 04/11/2025 I will be free of injury through next review abbey e. Active 04/11/2025 I will be/remain free of psy chotropic drug related complications, including movement disorder, discomfort, hypotension, gait disturbance, constipation/impaction or cognitive/behavioral impairment through review date. Active 04/11/2025 I will have a post discharge plan that meets my needs at discharge, including support services as ordered by MD. Active 04/11/2025 I will improve to/maintain my highest level of f unctioning. Active 04/11/2025 Resident will attend activities when comfortable Active 04/11/2025 The resident will maintain o r develop clean and intact skin by the review date. Active 04/11/2025 Will consume at least greate r than or equal to 50% of most meals per day thru next review date. Active 04/11/2025 Will have a weight which is stable as evidence by no change greater than or equal to 5% in 30 days or 10% in 180 days. Active 04/11/2025 Will have no signs or sympto ms of dehydration thru next review date. Active 04/11/2025 Functional Status Code Name Recorded Time Value Entered By Chair/qcp-az-muorf transfer 01/20/2025 Independent btuck Does the resident use a wheelchair and/or scooter? 01/20/2025 Not assessed btuck Eating 01/19/2025 Independent gary Indicate the type of wheelch air or scooter used 01/20/2025 Not assessed btuck Lower body dressing 01/20/2025 Not assessed btuck Lying to sitting on side of bed 01/20/2025 Independe nt btuck Oral hygiene 01/20/2025 Independent btuck Personal hygiene 01/20/2025 Setup or clean-up assist ance btuck Putting on/taking off footwear 01/20/2025 Not assess ed btuck Roll left and right 01/20/2025 Independent btuck Shower/bathe self 01/20/2025 Not assessed btuck Sit to lying 01/20/2025 Independent btuck Sit to stand 01/20/2025 Independent btuck Toilet transfer 01/20/2025 Independent btuck Toileting hygiene 01/20/2025 Setup or clean-up juanita tance btuck Upper body dressing 01/20/2025 Not assessed btuck Walk 10 feet 01/20/2025 Independent btuck Walk 150 feet 01/20/2025 Independent btuck Walk 50 feet 01/20/2025 Independent btuck Wheel 50 feet with two turns 01/20/2025 Not assessed btuck Immunizations Immunization Status Vaccine Details Vaccine Code CodeSystem Date Notes Influenza completed Influenza, adjuvanted, inactivated, quadrivalent, injectable, preservative free 205 CVX created date: 01/06/2025 administer ed date: 02/23/2024 [id number] cancelled Pneumococcal conjugate vaccine 20-valent (PCV20), polysaccharide VPH218 conjugate, adjuvant, preservative free 216 CVX created date: 01/06/2025 consent date: 01/06/2025 Educated by on 01/06/2025 RSV cancelled Respiratory syncytial virus (RSV), vaccine, recombinant, protein subunit RSV prefusion F, adjuvant reconstituted, 0.5 mL, preservative free 303 CVX created date: 01/06/2025 consent date: 01/06/2025 Educated by on 01/06/2025 Covid [id number] cancelled SARS-COV-2 (COVID-19) vaccine, mRNA, spike protein, LNP, preservative free, 50 mcg/0.5 mL dose 312 CVX created date: 01/06/2025 consent date: 01/06/2025 Educated by on 01/06/2025 Covid completed SARS-COV-2 (COVID-19) vaccine, mRNA, spike protein, LNP, preservative free, 50 mcg/0.5 mL dose Mfg: [employer]ostellar 312 CVX created date: 01/06/2025 administer ed date: 02/23/2024 Medications Section Medication Name Status Code CodeSystem Dose Route Frequency Admin Type Sig Text Start Date End Date Famotidine Oral Tablet 20 MG active 098656 RXNORM 1 tablet Oral one time a day Routine Give 1 tablet by mouth one time a day relate d to OTHER SPECIF IED DISEAS ES OF UPPER RESPIR ATORY TRACT (J39.8 ) 2024 - Sertraline HCl Oral Tablet 100 MG active 700539 RXNORM 2 tablet Oral one time a day Routine Give 2 tablet by mouth one time a day relate d to MAJOR DEPRES SIVE DISORD ER, RECURR ENT, UNSPEC IFIED (F33.9 ) 2024 - Zolpidem Tartrate Oral Tablet 5 MG aborted 302873 RXNORM 1 tablet Oral as needed PRN Give 1 tablet by mouth every 24 hours as needed for Insomn ia for 14 Days 01/08 Tubersol Solution 5 UNIT/0.1ML complete d 304932 RXNORM 0.1 ml Intrade rmal every evening shift Routine Inject 0.1 ml intrad ermall y every evenin g shift for TB Screen ing for 1 Day Docume nt Lot #, Expira tion and site under Immuni zation tab AND Inject 0.1 ml intrad ermall y every evenin g shift for TB Screen ing for 1 Day Docume nt Lot #, Expira tion and site under Immuni zation tab 01/04 468463 RXNORM 0.1 ml Intrade rmal every evening shift Routine Inject 0.1 ml intrad ermall y every evenin g shift for TB Screen ing for 1 Day Docume nt Lot #, Expira tion and site under Immuni zation tab AND Inject 0.1 ml intrad ermall y every evenin g shift for TB Screen ing for 1 Day Docume nt Lot #, Expira tion and site under Immuni zation tab 01/18 Bisacodyl Suppository 10 MG active 324261 RXNORM 1 suppos itory Rectal as needed PRN Insert 1 suppos itory rectal ly as needed for Consti pation ONCE DAILY IF NO BOWEL MOVEME NT AND MOM INEFFE CTIVE 2024 - Milk of Magnesia Suspension 1200 MG/15ML active 987945 RXNORM 30 ml Oral as needed PRN Give 30 ml by mouth as needed for Consti pation Once Daily on 3rd day if no bowel moveme nt 2024 - Fleet Enema Enema 7-19 GM/118ML active 072347 RXNORM 1 applic ation Rectal as needed PRN Insert 1 applic ation rectal ly as needed for Consti pation ONCE DAILY IF BISACO DYL SUPP INEFFE CTIVE 2024 - Acetaminophen Tablet 325 MG active 099862 RXNORM 2 tablet Oral as needed PRN Give 2 tablet by mouth every 6 hours as needed for Elevat ed Temper ature above 101.; Pain (Total Dose = 650mg) NTE 3Grams /24hou rs unless direct ed by MD 2024 - LORazepam Oral Tablet 0.5 MG aborted RXNORM 1 tablet Oral as needed PRN Give 1 tablet by mouth every 6 hours as needed for Anxiet y relate d to PANIC DISORD ER [EPISO DIC PAROXY SMAL ANXIET Y] (F41.0 ) for 14 Days 01/06 guaiFENesin Oral Tablet complete d 600 mg Oral two times a day Routine Give 600 mg by mouth two times a day for chest conges tion for 5 Days 01/08 Omeprazole Oral Tablet Delayed Release 20 MG active 229359 RXNORM 1 tablet Oral one time a day Routine Give 1 tablet by mouth one time a day relate d to OTHER SPECIF IED DISEAS ES OF UPPER RESPIR ATORY TRACT (J39.8 ) 2024 - OLANZapine Oral Tablet 5 MG active 410177 RXNORM 1 tablet Oral two times a day Routine Give 1 tablet by mouth two times a day relate d to PERSON ALITY DISORD ER, UNSPEC IFIED (F60.9 ) 2024 - Midodrine HCl Oral Tablet 5 MG active 596177 RXNORM 1 tablet Oral three times a day Routine Give 1 tablet by mouth three times a day relate d to ORTHOS TATIC HYPOTE NSION (I95.1 ) Hold for SBP Greate r than 120 2024 - Antifungal External Powder 2 % active n/a n/a Topical two times a day Routine Apply to Below Lt Breast topica lly two times a day for Lt breast fungal rash 2024 - LORazepam Oral Tablet 0.5 MG active RXNORM 1 tablet Oral as needed PRN Give 1 tablet by mouth every 4 hours as needed for Anxiet y relate d to PANIC DISORD ER [EPISO DIC PAROXY SMAL ANXIET Y] (F41.0 ) for 14 Days 01/20 OLANZapine Oral Tablet 5 MG complete d 308698 RXNORM 1 tablet Oral STAT STAT Give 1 tablet by mouth STAT for severe anxiet y 01/07 Zolpidem Tartrate Oral Tablet 5 MG active 992904 RXNORM 1 tablet Oral at bedtime Routine Give 1 tablet by mouth at bedtim e for insoma ni relate d to INSOMN IA, UNSPEC IFIED (G47.0 0) Pt reques t at 7pm daily 2024 - LORazepam Oral Tablet 0.5 MG complete d RXNORM 1 tablet Oral one time only One Time Only Give 1 tablet by mouth one time only for give 1 extra dose x 1 until 2024 14:59 01/08 OLANZapine Oral Tablet 5 MG complete d 423997 RXNORM 1 tablet Oral one time only One Time Only Give 1 tablet by mouth one time only for Prior to appt in [facility] it for 1 Day 01/15 guaiFENesin Oral Tablet active 600 mg Oral two times a day Routine Give 600 mg by mouth two times a day for conges tion 2024 - Mental Status Section Date Assessment Total Score Description 01/09/2025 BIMS 15 cognitively int act CAM 0 No delirium ind icated PHQ-9 09 mild depression Problems Problem # Description Date of onset Resolved Date Code CodeSystem Concern Status 1 GASTRO-ESOPHAGEAL REFLUX DISEASE WITHOUT ESOPHAGITIS 01/03/[address] active 2 INSOMNIA, UNSPECIFIED 01/03/[address] active 3 MAJOR DEPRESSIVE DISORDER, RECURRENT, UNSPECIFIED 01/03/[address] active 4 ORTHOSTATIC HYPOTENSION 01/03/[address] active 5 OTHER SPECIFIED DISEASES OF UPPER RESPIRATORY TRACT 01/03/20252009697972111 SNOMED CT active 6 PANIC 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] 01/03/[address] active 7 PERSONALITY DISORDER, UNSPECIFIED 01/03/[address] active 8 REPEATED FALLS 01/03/[address] ac tive Reason for Referral No Reasons for Referral Entered Social History Social History Observation Description Start Date End Date Code Code System Current Smoking Status Tobacco smoking consumption unknown 967718757 SNOMED CT Sex Assigned At Male 1950 82567-1 [facility] Gender Identity Vital Signs Code Code System Vitals Name Values and Units Timing Information 98938-6 LOINC Weight Ofxnp=432.7 Units=Lbs 05/2024 44139-6 INC Pain Level Value=0.0 01/20/2025 8462-4 [facility] Blood Pressure-Diastolic Value=63 Un its=mmHg 01/20/2025 8480-6 LOINC Blood Pressure-Systolic Spntp=060 Un its=mmHg 01/20/2025 9279-1 INC Respiratory Rate Value=20.0 Units=/m in 01/11/2025 8310-5 [facility] Body Temperature Value=97.6 Units= F 01/11/2025 8867-4 INC Heart rate Value=88.0 Units=/min 70118-1 [facility] O2 % BldC Oximetry Value=98.0 Units= % 01/11/2025 8302-2 LOINC Height Value=66.0 Units=Inches 01/03/2025 2339-0 [facility] Blood Sugar Hxosp=712.0 Units=mg/dL 01/03/2025
--- OUTSIDE RECORDS SUMMARY | 2025-01-21 16:01 | XMS_ITS | Encounter Summary ---
Author Organization [facility] Address [address] [facility] [address] [place] [address] Phone Care Team Providers Care Weld Lay Out Worker Name Role Phone Hernan Arzola MD [facility]available [email or web address] Hoang Mitchell MD Unavailable [phone] Austin Montoya MD Unavailable [phone] Hernan Arzola MD [email or web address] Scott Quiroz MD Unavailable Gabriel Malik MD Unavailable Scott Quiroz MD Primary Care Provider [phone] Aaron Collins MD Unavailable Unknown, Unknown Primary Care Provider Mee Beyer Unavailable [phone] Pcp, Unknown Primary Care Provider Unavailabl e Encounter Details Date Type Department Care Team (Late st Contact Info) Description 07/03/2018 Procedure Pass [facility] PERIOPERATIVE DEPT [address] [place] [address] Social History Tobacco Use Types [...] documented as of this encounter Care Teams Weld Lay Out Worker Relationship Specialty Start Date End Date Scott Quiroz MD [address] [place] [address] [email or web address] PCP - General Internal Medicine 10/24/17 12/19/22 Unknown, Unknown, PCP - General 08/01/23 08/16/23 Pcp, Unknown PCP - General 09/19/23 07/24/24 Hernan Arzola MD [email or web address] Internal Medicine 10/02/15 10/20/20 Hoang Mitchell MD [address] [place] [address] 501_[place] [address] [email or web address] Consulting Provider Rheumatology 10/02/15 Austin Montoya MD [address] [place] [address] [email or web address] Historical LMR Provider 03/06/17 05/29/21 Hernan Arzola MD [email or web address] Historical LMR Provider 03/06/17 10/20/20 Scott Quiroz MD [address] [place] [address] [email or web address] Historical LMR Provider 03/06/17 10/20/20 Gabriel Malik MD [address] [address] Historical LMR Provider 03/06/17 Aaron Hardy MD [address] [place] [address] [email or web address] Primary Oncologist Hematology and Oncology 11/30/2208/23 Mee Badillo MBBS [email or web address] Primary Oncologist Medical Oncology 08/25/23 documented as of this encounter Additional Source Comments The information contained in this document represents components of the legal health record. It is not the complete legal health record.[facility]
--- OUTSIDE RECORDS SUMMARY | 2025-01-21 16:01 | XMS_ITS | Clinical Summary ---
Author Organization [facility] Address [address] [employer] [facility] [address] [place] [address] Phone Care Team Providers Care Warp Clamper Name Role Phone Hoang Mitchell MD Unavailable [phone] Mee Badillo MBBS Unavailable [phone] Allergies Active Allergy Reactions Criticality Noted Date [...] at this time-he is followed closely by bobbin cleaning machine operator oncologist every 6 months. Assessment & Plan (01/16/2024 11:14 PM EDT): IMPRESSION: This is a 73-year-old man with the following diagnoses. 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 Mitchell on it. Assessment & [...] B cells. He will contact her consulting mammography tech in [place] to get his feeling on further delaying [...] reagent. Its performance characteristics were determined by [facility] in a manner consistent with CLIA requirements. [...] we will measure immunoglobulin levels along with IN-3 CBC CRP and chemistry profile. No evidence [...] Rituxan infusion. Reviewed rheumatology notes from the [facility]. Reviewed lab work just prior to [...] Range Status Specimen Source 03/09/2020 NASOPHARYNGEAL SWAB (CHIEF PROGRAM OFFICER) Final COVID-19 Comment 03/09/202020200312 Final COVID Testing Status 03/09/2020 Sent to [facility] Final Symptomatic? 03/09/2020 NO Final [...] total of 28 minutes were spent in kxys-uh-nrxs conversation with the patient coordinating my care with that of the referring mammography tech in [place], IV infusion therapy and his primary care [...] developed and its performance characteristics determined by [facility] in a manner consistent with CLIA requirements. [...] will speak to the thoracic specialist in [place] when he feels it is necessary to [...] 50% of this 30-minute visit was spent rluz-vr-vacp conversation with the patient going over the [...] The plan will be to consult the corner bead operator at [facility] who did the last radial dilatation [...] 4 weeks and he will see his mammography tech in [place] in 6 weeks. I reviewed lab work [...] recently had a dil[facility] procedure done at [facility]. This was done with a rigid [...] this 28 minute visit was spent in admd-bn-wfpj conversation with the patient going over the [...] appointment within 2 weeks to see the mammography tech in [place]. My point of view the patient is [...] strongly advise a repeat visit to the tire finisher for testing. 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 Laboratory [address] [place] [address] Chau Reece MD Discharge Disposition: Home or Self Care 01/13/2025 Transcribe Orders [facility] Specimen Processing [address] [place] [address] Chau Reece MD Anxiety (Primary Dx) 01/06/2025 8:05 AM EDT - 01/06/2025 11:59 PM EDT Hospital Encounter [facility] [address] [place] [address] Doreen Garcia NP Discharge Disposition: Home or Self Care 01/06/2025 Transcribe Orders [facility] Specimen Processing [address] [place] [address] Doreen Garcia NP Illness (Primary Dx) 12/20/2024 Telephone [facility] [address] [place] [address] Mee Badillo MBBS R/sing Next Appts from [...] VACCINE (1 - 1-dose 75+ series) 2024 INFLUENZA VACCINE (#1) 2024 , 03/23/2022, 03/31/2021, Additional history exists COVID-19 VACCINE (5 - Pfizer risk season) 2025 02/23/2024, 11/07/2021, 12/04/2020, Additional history exists LIPID PANEL 01/06/2030 01/06/2025 [...] this topic Medical Devices Implanted Type Area Lawn Mower Operator Device Identifier Shelf Expiration Date Model / Serial / Lot Syringe Carboxymethylcellulose 1.0 Cc Augment Vocal Fold Radiesse Voice Prolaryn Gel Sodium - [id number] Implanted:Qty: 1 on 05/19/2023 by Jhon Gutiérrez MD at [facility] N/A: Vocal [employer] [facility] 12/25/2024 [id number] / / [id number] Procedures Procedure Name Priority Date/Time Associated [...] included. WBC 9.37 4.00 - 11.00 K/uL [facility] RBC 3.44(L) 4.50 - 5.90 M/uL [facility] HGB 9.8(L) 13.5 - 17.5 g/dL [facility] HCT 32.0(L) 41.0 - 53.0 % [facility] PLT 328 150 - 450 K/uL [facility] MCV 93.0 80.0 - 100.0 fL [facility] MCH 28.5 27.0 - 31.0 pg [facility] MCHC 30.6(L) 32.0 - 36.0 g/dL [facility] RDW 16.6(H) 11.5 - 14.5 % [facility] MPV 11.4 8.4 - 12.0 fL [facility] NRBC 0.00 0.00 /100 WBCs [facility] ABSOLUTE NRBC 0.00 0.00 K/uL [facility] DIFF METHOD Auto [facility] NEUTS 68.5 48.0 - 76.0 % [facility] LYMPHS 12.2(L) 18.0 - 41.0 % [facility] MONOS 16.2(H) 4.0 - 11.0 % [facility] EOS 2.0 0.0 - 5.0 % [facility] BASOS 0.5 0.0 - 1.5 % [facility] Granulocytes, immature (%) 0.6 0.0 - 0.9 % [facility] ABSOLUTE NEUTS 6.41 1.92 - 7.60 K/uL [facility] ABSOLUTE LYMPHS 1.14 0.72 - 4.10 K/uL [facility] ABSOLUTE MONOS 1.52(H) 0.16 - 1.10 K/uL [facility] ABSOLUTE EOS 0.19 0.00 - 0.50 K/uL [facility] ABSOLUTE BASOS 0.05 0.00 - 0.15 K/uL [facility] Granulocytes, immature 0.06 0.00 - 0.09 K/uL [facility] Blood 01/13/2025 4:55 AM EDT 01/13/2025 8:14 AM EDT us Chau Reece MD LAB BLOOD ORDERABLES Final Resul t Performing Organization Address City/[facility] Co de Phone Number [address] [address] * Basic metabolic panel (01/13/2025 4:55 AM EDT) Only the most recent of2 resultswithin the time period is included. SODIUM 140 133 - 146 mmol/L [facility] CHLORIDE 106 96 - 108 mmol/L [facility] POTASSIUM 4.5 3.3 - 5.1 mmol/L [facility] CO2 21 21 - 35 mmol/L [facility] BUN 15 6 - 19 mg/dL [facility] CREATININE 0.70 0.5 - 1.5 mg/dL [facility] GLUCOSE 99 70 - 99 mg/dL [facility] CALCIUM 8.6 8.4 - 10.3 mg/dL [facility] EGFR 96 >59 mL/min/1.7 3m2 [facility] Comment:Estimated glomerular filtration rate calculated using the CKD-EPI refit equation. ANION GAP 18 10 - 20 mmol/L [facility] Blood 01/13/2025 4:55 AM EDT 01/13/2025 8:14 AM EDT us Chau Reece MD LAB BLOOD ORDERABLES Final Resul t [address] [address] * (ABNORMAL) Hemoglobin A1c (01/06/2025 5:40 AM EDT) HEMOGLOBIN A1C 6.1(H) 4.3 - 5.8 % [facility] Blood 01/06/2025 5:40 AM EDT 01/06/2025 8:29 AM EDT us Doreen Garcia CHIEF PROGRAM OFFICER LAB BLOOD ORDERABLES Final Result Performing Organization Address [facility] Co de Phone Number [address] [address] * (ABNORMAL) Lipid panel (01/06/2025 5:40 AM EDT) HDL 36 mg/dL [facility] Comment: Interpretation <40 mg/dL: Low HDL cholesterol (major risk factor for CHD) Greater than or equal to 60 mg/dL: High HDL cholesterol ( negative risk factor for CHD) HDL - cholesterol is affected by a number of factors, e.g. smoking, excerise, hormones, sex and age. CHOLESTEROL 224 0 - 240 mg/dL [facility] TRIGLYCERIDES 325(H) 30 - 160 mg/dL [facility] LDL 123 50 - 129 mg/dL [facility] Comment: LDL levels in terms of risk for coronary heart disease: <100 mg/dL: Optimal 100-129 mg/dL: Near or above optimal 130-159 mg/dL: Borderline high 160-189 mg/dL: High >190 mg/dL: Very High CARDIAC RISK RATIO 6.2(H) 3.4 - 5.0 [facility] Blood 01/06/2025 5:40 AM EDT 01/06/2025 8:29 AM EDT us Doreen Garcia CHIEF PROGRAM OFFICER LAB BLOOD ORDERABLES Final Result Performing Organization Address City/[facility]/ZIP Co de Phone Number [address] [address] * ENDOSCOPY, COLON (10/06/2023 12:29 PM EDT) Narrative Transcriptions Orlando Mullins MD - 10/06/2023 12:29 PM EDT [facility] Patient Name: Lindsey Smith Attending MD:: ORLANDO MULLINS MD, Procedure Date: 10/06/2023 12:29 PM Date of : 1950 Age: 73 Admit Type: Outpatient Gender: Male Room: [place] [address] Referring MD: Na Faria Exam Type: Colonoscopy [...] 12:29 PM Procedure Code(s): --- Professional --- 21528, Colonoscopy, flexible; diagnostic, including collection of specimen(s) by brushing or washing, when performed (separateprocedure) --- Technical --- 35046, Colonoscopy, flexible; diagnostic, including collection of specimen(s) by brushing or washing, when performed (separateprocedure) Diagnosis Code(s): --- Professional --- K64.8, Other hemorrhoids R19.5, Other fecal abnormalities --- Technical --- K64.8, Other hemorrhoids R19.5, Other fecal abnormalities CPT copyright 2021 [employer]. All rights reserved. The codes documented in this report are preliminary and upon candle molder hand reviewmay be revised to meet current compliance requirements. Procedure Date: 10/06/2023 12:29:[address] [place] [address] Na Faria LUMBER CARRIER GI PROCEDURE ORDERABLES Fin al Result * (ABNORMAL) Fecal immunochemical test x1 (FIT) (01/16/2023 1:00 PM EDT) Immuno Fecal Occult Positive(A ) Negative [facility] Stool (Stool) 01/16/2023 1:0 0 PM EDT 01/16/2023 2:03 PM EDT Aaron Collins MD BODY FLUIDS AND STOOLS ORDERABLES Final Result [facility] [address] [place] [address] from Last 3 Months or Most Recently Relevant to Health Maintenance Insurance MEDICARE PART A & B MEDICARE PART A & B MEDICARE PART A & B MEDICARE PART A & B MEDICARE PART A & B MEDICARE PART A & B MEDICARE PART A & B MEDICARE PART A & B MEDICARE PART A & B Member Subscriber Plan / Payer (Ef fective 2010-Present) Name:Lindsey Smith Member ID:[id number] Relation to Subscriber:Self Name:Lindsey Smith Subscriber ID:[id number] Payer ID:[id number] Group ID:Not on file Type:Medicare Address: [facility] [employer] [facility] [employer] [facility] [address] [facility] [place] [address] Advance Directives For more information, please contact: [phone] (9AM - 5PM [facility], Monday-Monday) Documents on File Type Date Recorded Patient Public Address Technician Expl anation Healthcare Proxy 12/18/2015 3:47 PM [...] 12:37 PM 12/11/2015 2:27 PM Care Teams Warp Clamper Relationship Specialty Start Date End Date Hoang Mitchell MD [address] [place] [address] [address] [facility]_[place] [address] [email or web address] Consulting Provider Rheumatology 10/02/15 Mee Badillo MBBS [address] [place] [address] [address] [facility] [address] [email or web address] Primary Oncologist Medical Oncology 08/25/23 Additional Source Comments The information contained in this document represents components of the legal health record. It is not the complete legal health record.[facility]
--- OUTSIDE RECORDS SUMMARY | 2025-01-21 16:01 | XMS_ITS | Encounter Summary ---
Author Organization [facility] Address [address] [facility] [address] [place] [address] Phone Care Team Providers Care Analytical Statistician Name Role Phone Hernan Arzola MD Unavailable [email or web address] Hoang Mitchell MD Unavailable [phone] Austin Montoya MD Unavailable [phone] Hernan Arzola MD Unavailable [email or web address] Scott Quiroz MD Unavailable Gabriel Malik MD Unavailable Scott Quiroz MD Primary Care Provider Aaron Collins MD Unavailable Unknown, Unknown Primary Care Provider Mee Beyer Unavailable [phone] Pcp, Unknown Primary Care Provider Unavailabl e Encounter Details Date Type Department Care Team (Late st Contact Info) Description 04/24/2020 Transcribe Orders [facility] [address] [place] [address] Unknown, Unknown, Social History Tobacco [...] documented as of this encounter Care Teams Analytical Statistician Relationship Specialty Start Date End Date Scott Quiroz MD [address] [place] [address] [email or web address] PCP - General Internal Medicine 10/24/17 12/19/22 Unknown, Unknown, PCP - General 08/01/23 08/16/23 Pcp, Unknown PCP - General 09/19/23 07/24/24 Hernan Arzola MD [email or web address] Internal Medicine 10/02/15 10/20/20 Hoang Mitcehll MD [address] [place] [address] [address]_[place] [address] [email or web address] Consulting Provider Rheumatology 10/02/15 Austin Montoya MD [address] [place] [address] [email or web address] Historical LMR Provider 03/06/17 05/29/21 Hernan Arzola MD [email or web address] Historical LMR Provider 03/06/17 10/20/20 Scott Quiroz MD [address] [place] [address] [email or web address] Historical LMR Provider 03/06/17 10/20/20 [place] [address] [place] [address] Historical LMR Provider 03/06/17 Aaron Hardy MD [address] [place] [address] [email or web address] Primary Oncologist Hematology and Oncology 11/30/2208/23 Mee Badillo MBBS [email or web address] Primary Oncologist Medical Oncology 08/25/23 documented as of this encounter Additional Source Comments The information contained in this document represents components of the legal health record. It is not the complete legal health record.[facility]
--- OUTSIDE RECORDS SUMMARY | 2025-01-21 16:01 | XMS_ITS | Encounter Summary ---
Author Organization [facility] Address [address] [facility] [address] [place] [address] Phone Care Team Providers Care Community Health Coordinator Name Role Phone Hoang Mitchell MD Unavailable Scott Quiroz MD Primary Care Provider Aaron Collins MD Unavailable Unknown, Unknown Primary Care Provider Mee Beyer MBBS Unavailable [phone] Pcp, Unknown Primary Care Provider Unavailabl e Encounter Details Date Type Department Care Team (Latest Contact Info) Description 08/24/2022 Transcribe Orders Virtual Department [address] [place] [address] Scott Quiroz MD [address] [place] [phone] [email or web address] Cervical spinal stenosis (Primary Dx) Social [...] region documented in this encounter Care Teams Community Health Coordinator Relationship Specialty Start Date End Date Scott Quiroz MD [address] [place] [address] [email or web address] PCP - General Internal Medicine 10/24/17 12/19/22 Unknown, Unknown, MD PCP - General 08/01/23 08/16/23 Pcp, Unknown PCP - General 09/19/23 07/24/24 Hoang Mitchell MD [address] [place] [address] [address]_[place] [address] [email or web address] Consulting Provider Rheumatology 10/02/15 Aaron Collins MD [address] [address] [email or web address] Primary Oncologist Hematology and Oncology 11/30/2208/23 Mee Badillo MBBS [email or web address] Primary Oncologist Medical Oncology 08/25/23 documented as of this encounter Additional Source Comments The information contained in this document represents components of the legal health record. It is not the complete legal health record.[facility]
--- OUTSIDE RECORDS SUMMARY | 2025-01-21 16:01 | XMS_ITS | Encounter Summary ---
Author Organization [facility] Address [address] [employer] [facility] [address] [place] [address] Phone Care Team Providers Care Industrial Refrigeration Mechanic Name Role Phone Hoang Mitchell MD Unavailable [phone] Scott Quiroz MD Primary Care Provider Aaron Collins MD Unavailable Unknown, Unknown Primary Care Provider Mee Beyer MBBS Unavailable [phone] Pcp, Unknown Primary Care Provider Unavailabl e Encounter Details Date Type Department Care Team (Late st Contact Info) Description 08/16/2022 Procedure Pass [facility], Ct Scan - [address] [address] Social History Tobacco Use Types Packs/Day Years [...] 6:04 PM EDT Paul Horn RN * [place] Suicide Severity Rating Scale (Screener/Recent Self-Report) Question [...] on filedocumented in this encounter Care Teams Industrial Refrigeration Mechanic Relationship Specialty Start Date End Date Scott Quiroz MD [address] [place] [address] [email or web address] [email or web address][facility] [email or web address] PCP - General Internal Medicine 10/24/17 12/19/22 Unknown, Kandy, PCP - General 08/01/23 08/16/23 Pcp, Unknown PCP - General 09/19/23 07/24/24 Hoang Mitchell MD [address] [place] [address] [address]_[place] [address] [email or web address] Consulting Provider Rheumatology 10/02/15 Aaron Collins MD [address] [address] [email or web address] Primary Oncologist Hematology and Oncology 11/30/2208/23 Mee Badillo MBBS [email or web address] Primary Oncologist Medical Oncology 08/25/23 documented as of this encounter Additional Source Comments The information contained in this document represents components of the legal health record. It is not the complete legal health record.[facility]
--- OUTSIDE RECORDS SUMMARY | 2025-01-21 16:01 | XMS_ITS | Encounter Summary ---
Author Organization [facility] Address [address] [facility] [address] [place] [address] Phone Care Team Providers Care Hr Manager Name Role Phone Hoang Mitchell MD Unavailable [phone] Aaron Collins MD Unavailable [phone] Unknown, Unknown Primary Care Provider Mee BeyerBS Unavailable [phone] Pcp, Unknown Primary Care Provider Unavailabl e Encounter Details Date Type Department Care Team (Late st Contact Info) Description 01/04/2023 Procedure Pass [facility], Ct Scan - [address] [id number] Social History Tobacco Use Types Packs/Day Years [...] documented as of this encounter Care Teams Hr Manager Relationship Specialty Start Date End Date Unknown, Unknown, MD PCP - General 08/01/23 08/16/23 Pcp, Unknown PCP - General 09/19/23 07/24/24 Hoang Mitchell MD [address] [place] [address] [address]_[place] [address] [email or web address] Consulting Provider Rheumatology 10/02/15 Aaron Collins MD [address] [place] [address] [email or web address] Primary Oncologist Hematology and Oncology 11/30/2208/23 Mee Badillo MBBS [email or web address] Primary Oncologist Medical Oncology 08/25/23 documented as of this encounter Additional Source Comments The information contained in this document represents components of the legal health record. It is not the complete legal health record.[facility]
--- OUTSIDE RECORDS SUMMARY | 2025-01-21 16:01 | XMS_ITS | Encounter Summary ---
Author Organization [facility] Address [address] [employer] [facility] [address] [place] [address] Phone Care Team Providers Care Aging Department Supervisor Name Role Phone Hoang Mitchell MD Unavailable Aaron Collins MD Unavailable Unknown, Unknown Primary Care Provider Mee Beyer MBBS Unavailable [phone] Pcp, Unknown Primary Care Provider Unavailabl e Encounter Details Date Type Department Care Team (Latest Contact Info) Description 05/02/2023 Transcribe Orders [facility] Laboratory [address] [place] [address] Meme Gordillo MD [address] [facility], [address] [place] [address] [email or web address] MGUS (monoclonal gammopathy of unknown [...] documented as of this encounter Care Teams Aging Department Supervisor Relationship Specialty Start Date End Date Unknown, MD Kandy PCP - General 08/01/23 08/16/23 Pcp, Unknown PCP - General 09/19/23 07/24/24 Hoang Mitchell MD [address] [facility] [address]_[place] [address] [email or web address] Consulting Provider Rheumatology 10/02/15 Aaron Collins MD [facility] [address] [address] [email or web address] Primary Oncologist Hematology and Oncology 11/30/2208/23 Mee Badillo MBBS [email or web address] Primary Oncologist Medical Oncology 08/25/23 documented as of this encounter Additional Source Comments The information contained in this document represents components of the legal health record. It is not the complete legal health record.[facility]
--- OUTSIDE RECORDS SUMMARY | 2025-01-21 16:01 | XMS_ITS | Encounter Summary ---
Author Organization [facility] Address [address] [facility] [address] [place] [address] Phone Care Team Providers Care Special Education Professional Name Role Phone Hoang Mitchell MD Unavailable Austin Montoya MD Unavailable [phone] Gabriel Malik MD Unavailable Scott Quiroz MD Primary Care Provider Aaron Collins MD Unavailable Unknown, Unknown Primary Care Provider Mee Beyer Unavailable Pcp, Unknown Primary Care Provider Unavailabl e Encounter Details Date Type Department Care Team (Late st Contact Info) Description 03/06/2021 Procedure Pass [facility], Ct Scan - [address] [address] Social History Tobacco Use Types Packs/Day Years [...] 5:31 PM EDT Shakila Balderas RN * Harmon Suicide Severity Rating Scale (Screener/Recent Self-Report) Question [...] 10/01/2016 8:00 AM EDT Alma Hari MD documented in this encounter Plan of Treatment Not on file documented as of this encounter Visit Diagnoses Not on filedocumented in this encounter Additional Health Concerns Infection Onset Date Last Indicated Resolved Time CoV-Risk 03/04/2021 03/04/202103/14/2021 1:22 AM EDT documented as of this encounter Care Teams Special Education Professional Relationship Specialty Start Date End Date Scott Quiroz MD [address] [address] [email or web address] PCP - General Internal Medicine 10/24/17 12/19/22 Unknown, Kandy, MD PCP - General 08/01/23 08/16/23 Pcp, Unknown PCP - General 09/19/23 07/24/24 Hoang Mitchell MD [address] [place] [address] 501_[place] [address] [email or web address] Consulting Provider Rheumatology 10/02/15 Austin Montoya MD [address] [place] [address] [address] [place] [address] [email or web address] Historical LMR Provider 03/06/17 05/29/21 [place] [address] [place] [address] Historical LMR Provider 03/06/17 2 Aaron Collins MD [address] [place] [address] [email or web address] Primary Oncologist Hematology and Oncology 11/30/2208/23 Mee Badillo MBBS [email or web address] Primary Oncologist Medical Oncology 08/25/23 documented as of this encounter Additional Source Comments The information contained in this document represents components of the legal health record. It is not the complete legal health record.[facility]
--- OUTSIDE RECORDS SUMMARY | 2025-01-21 16:01 | XMS_ITS | Encounter Summary ---
Author Organization [facility] Address [address] [facility] [address] [place] [address] Phone Care Team Providers Care Distribution Collection Operator Name Role Phone Hernan Arzola MD Unavailable [email or web address] Hoang Mitchell MD Unavailable [phone] Austin Montoya MD Unavailable [phone] Hernan Arzola MD Unavailable [email or web address] Managementcampbell [email or web address] [place] Scott Quiroz MD Unavailable Gabriel Malik MD Unavailable Hernan Arzola MD Primary Care Provider [email or web address] [email or web address] Scott Quiroz MD Primary Care Provider Aaron Collins MD Unavailable Unknown, Unknown Primary Care Provider Mee Beyer Unavailable [phone] Pcp, Unknown Primary Care Provider Unavailabl e Encounter Details Date Type Department Care Team (Late st Contact Info) Description 08/24/2017 Procedure Pass [facility] PERIOPERATIVE DEPT [address] [place] [address] Social History Tobacco Use Types [...] 10/01/2016 8:00 AM EDT Alma aHir MD documented as of this encounter Mental [...] documented as of this encounter Care Teams Distribution Collection Operator Relationship Specialty Start Date End Date Hernan Arzola MD [email or web address] PCP - General Rheumatology 04/10/17 10/23/17 Scott Quiroz MD [address] [address] [email or web address] PCP - General Internal Medicine 10/24/17 12/19/22 Unknown, Kandy, PCP - General 08/01/23 08/16/23 Pcp, Unknown PCP - General 09/19/23 07/24/24 Hernan Arzola MD [email or web address] Internal Medicine 10/02/15 10/20/20 Hoang Mitchell MD [address] [place] [address] 501_[place] [address] [email or web address] Consulting Provider Rheumatology 10/02/15 Austin Montoya MD [address] [place] [address] [email or web address] Historical LMR Provider 03/06/17 05/29/21 Hernan Arzola MD [email or web address] Historical LMR Provider 03/06/17 10/20/20 Scott Quiroz MD [address] [address] [email or web address] [email or web address] Historical LMR Provider 03/06/17 10/20/20 [place] [address] [place] [address] Historical LMR Provider 03/06/17 2 Aaron Collins MD [address] [place] [address] [email or web address] Primary Oncologist Hematology and Oncology 11/30/2208/23 Mee Badillo MBBS [email or web address] Primary Oncologist Medical Oncology 08/25/23 documented as of this encounter Additional Source Comments The information contained in this document represents components of the legal health record. It is not the complete legal health record.[facility]
== END 2025-01-21 16:47 | disposition home or self-care (01) ==
LOC: HO.HOP 14:48
PROVIDERS: PCP Physician Assistant Medical; Visit Provider Clinical Nurse Specialist Psychiatric/Mental Health
DX: F33.1 Major depressive disorder, recurrent, moderate (principal); F60.7 Dependent personality disorder; F41.1 Generalized anxiety disorder; F41.0 Panic disorder [episodic paroxysmal anxiety]
CPT/HCPCS: 99215

== ENCOUNTER → 2025-01-21 14:48 | Outpatient (BNVA) | payer MEDICARE, SELFPAY | PROVIDERS: PCP Physician Assistant Medical; Visit Provider Clinical Nurse Specialist Psychiatric/Mental Health | DX: F33.1 Major depressive disorder, recurrent, moderate (principal); F60.7 Dependent personality disorder; F41.1 Generalized anxiety disorder | CPT/HCPCS: 99212 ==

== ENCOUNTER 2025-02-02 00:06 | Inpatient (IN) | payer MEDICARE, SELFPAY ==
--- OUTSIDE RECORDS SUMMARY | 2015-10-02 | XMS_ITS | Encounter Summary ---
Author Organization [facility] Address [address] [place] [address] Phone Care Team Providers Care Technical Adjuster Name Role Phone Scott Quiroz MD Primary Care Provider [phone] Hernan Arzola MD Unavailable [facility] [email or web address] [email or web address] Hoang Mitchell MD Unavailable [phone] Encounter Details Date Type Department Care Team (Late st Contact Info) Description 10/02/2015 Hospital Encounter [facility] Imaging [address] [place] [address] Teddy Alsa MD 55 [place] [phone] [email or web address] Social History Tobacco Use Types Packs/Day Years [...] 01/31/2025 10:22 AM Inderjit Anand RN * [place] Suicide Severity Rating Scale (Screener/Recent Self-Report) Question Answer Date of Assessment Author 1. Wish to be (Past 1 Month) Yes 025 10:22 AM Lurdes Anand RN 2. Non-Specific Active Suici eunice Thoughts (Past 1 Month) Yes 01/31/2025 10:22 AM Lurdes Anand , MARIAI 3. Active Suicidal Ideation with any Methods [...] (No Interpretation) (10/02/2015 12:00 AM EDT) Narrative [facility] [place]G INTERFACES - 10/06/2015 10:46 AM EDT This study is for PACS storage only and not for interpretation. Procedure Note SYSTEMGENERATED, DOCUMENTATION - 10/06/2015 This study is for PACS storage only and not for interpretation. us Teddy Alas MD IMG OUTSIDE IMAGING W/ OUT INTERPRETATION Final Result [facility]G INTERFACES documented in this encounter Visit Diagnoses Not on filedocumented in this encounter Additional Health Concerns Infection Onset Date Last Indicated Resolved Time CoV-Risk 03/04/2021 03/04/2021 03/14/2021 1:22 AM EDT documented as of this encounter Care Teams Technical Adjuster Relationship Specialty Start Date End Date Scott Quiroz MD [address] [place] [address] [email or web address] memorial [facility] [email or web address].[facility] PCP - General 11/19/13 04/09/17 Hernan Arzola MD [email or web address] memorial hospital .[facility] Internal Medicine 10/02/15 10/20/20 Hoang Mitchell MD [address] [place] [address] [facility] [place] [address] [email or web address] Consulting Provider Rheumatology 10/02/15 documented as of this encounter Additional Source Comments The information contained in this document represents components of the legal health record. It is not the complete legal health record.[facility]
--- OUTSIDE RECORDS SUMMARY | 2025-01-31 10:29 | XMS_ITS | Encounter Summary ---
Author Organization [facility] Address [address] [facility] [address] [place] [id number] Phone Care Team Providers Care Insole Rasper Name Role Phone Hoang Mitchell MD Unavailable Mee Badillo Unavailable [phone] Angelia Montoya Primary Care Provider [phone] Reason for Visit * Reason Comments Psychiatric Evaluation Encounter Details Date Type Department Care Team (Late st Contact Info) Description 01/31/2025 10:29 AM EDT - 02/01/2025 11:49 PM EDT Hospital Encounter [facility] [address] [place] [address] Mildred Moon MD, PhD [address] [place] [address] [email or web address] Chaparrita Toney MD [address] [place] [address] Jameel Cohen MD [address] [place] [address] Philip Rivera MD [address] [place] [address] [email or web address] Discharge Disposition: Hospice/Medical Facility Social History Tobacco Use Types Packs/Day Years [...] PM EDT documented as of this encounter Last Filed Vital Signs Vital Sign Reading Time Taken Comments Blood Pressure 144/93 02/01/2025 9:00 AM EDT Pulse 85 02/01/2025 9:00 AM EDT Temperature 37.4 C (99.4 F) 02/01/2025 8:59 AM EDT Respiratory Rate 17 02/01/2025 8:59 AM EDT Oxygen Saturation 94% 02/01/2025 8:59 AM EDT Inhaled Oxygen Concentration - - Weight 65.3 kg (144 lb) 01/31/2025 10:21 AM EDT Height 160 cm (5' 3 ) 01/31/2025 10:21 AM EDT Body Mass Index 25.51 01/31/2025 10:21 AM EDT documented in this encounter Functional Status * Patient is [...] Assessment Author High Risk 01/31/2025 10:22 AM EDT Inderjit Dewey RN * Harris Suicide Severity Rating Scale (Screener/Recent Self-Report) Question Answer Date of Assessment Author 1. Wish to be (Past 1 Month) Yes 025 10:22 AM EDT Lurdes Dewey RN 2. Non-Specific Active Suici eunice Thoughts (Past 1 Month) Yes 01/31/2025 10:22 AM ABIGAILT Lurdes Dewey , MARIIA 3. Active Suicidal Ideation with any Methods (Not Plan) Without Intent to Act (Past 1 Month) Yes 01/31/2025 10:22 AM Lurdes Anand, MARIIA 4. Active Suicidal Ideation with Some Intent to Act, Without Specific Plan (Past 1 Month) Yes 01/31/2025 10:22 AM ABIGAILT Lurdes Dewey, MARIIA 5. Active Suicidal Ideation with Specific Plan and Intent (Past 1 Month) No 01/31/2025 10:22 AM EDT Lurdes Dewey RN 6. Suicidal Behavior (Lifetime) Yes 10:22 AM EDT Lurdes Dewey RN 6. Suicidal Behavior (3 Months) No 10:22 AM EDT Lurdes Dewey RN documented as of this encounter Mental Status * Patient has serious difficulty concentrating, remembering, or making decisions due to physical, mental, or emotional condition Answer Entry Date Author No 10/01/2016 8:00 AM EDT Alma Hair MD documented in this encounter Discharge Summaries * Philip Rivera MD - 02/01/2025 11:22 PM EDT Emergency Department Observation Disposition Note Arrival Date: 01/31/2025 Chief Complaint Patient presents with Psychiatric Evaluation Observation course: uneventful. Test results: No orders to display Results for orders placed or performed during the hospital encounter of 01/31/25 ECG 12-LEAD Result Value Ref Range Ventricular Rate EKG/MIN 78 BPM Atrial Rate 78 BPM NV Interval 158 ms QRS Duration 72 ms QT Interval 404 ms QTC Interval 460 ms P Lee 52 degrees R Wave Lee 23 degrees T Wave Lee 45 degrees TSH with reflex Result Value Ref Range TSH 1.75 0.27 - 4.20 uIU/mL Magnesium Result Value Ref Range MAGNESIUM 2.3 1.6 - 2.6 mg/dL Troponin Specimen: Blood Result Value Ref Range Troponin-T, HS Gen5 17 (H) 0 - 14 ng/L Toxicology screen, urine Specimen: Urine Result Value Ref Range URINE CANNABINOIDS NONE DETECTED NONE DETECTED URINE COCAINE METAB NONE DETECTED NONE DETECTED URINE AMPHETAMINES NONE DETECTED NONE DETECTED URINE METHADONE NONE DETECTED NONE DETECTED URINE OPIATES NONE DETECTED NONE DETECTED URINE PHENCYCLIDINE NONE DETECTED NONE DETECTED URINE OXYCODONE NONE DETECTED NONE DETECTED URINE BARBITURATES NONE DETECTED NONE DETECTED URINE BENZODIAZEPINE Positive (*) NONE DETECTED URINE BUPRENORPHINE NONE DETECTED NONE DETECTED Fentanyl, urine NONE DETECTED NONE DETECTED Ethanol, blood Specimen: Blood Result Value Ref Range ETHANOL <10 <10 mg/dL LFTs (hepatic panel) Specimen: Blood Result Value Ref Range ALKALINE PHOSPHATASE 112 39 - 117 U/L TOTAL BILIRUBIN <0.2 0.0 - 1.2 mg/dL DIRECT BILIRUBIN <0.1 0.0 - 0.2 mg/dL Bilirubin (Indirect) NOT CALCULATED 0 - 1.5 mg/dL AST 18 0 - 37 U/L ALT 15 0 - 40 U/L TOTAL PROTEIN 6.3 (L) 6.5 - 8.0 g/dL ALBUMIN 3.6 (L) 3.9 - 4.8 g/dL GLOBULIN 2.7 1 - 4.8 g/dL A/G Ratio 1.33 1.00 - 4.80 RATIO Basic metabolic panel Specimen: Blood Result Value Ref Range SODIUM 141 133 - 146 mmol/L CHLORIDE 109 (H) 96 - 108 mmol/L POTASSIUM 4.0 3.3 - 5.1 mmol/L CO2 20 (L) 21 - 35 mmol/L BUN 14 6 - 19 mg/dL CREATININE 0.70 0.5 - 1.5 mg/dL GLUCOSE 96 70 - 99 mg/dL CALCIUM 8.9 8.4 - 10.3 mg/dL EGFR 96 >59 mL/min/1.73m2 ANION GAP 16 10 - 20 mmol/L CBC and differential Specimen: Blood Result Value Ref Range WBC 8.95 4.00 - 11.00 K/uL RBC 3.80 (L) 4.50 - 5.90 M/uL HGB 11.1 (L) 13.5 - 17.5 g/dL HCT 34.3 (L) 41.0 - 53.0 % PLT 275 150 - 450 K/uL MCV 90.3 80.0 - 100.0 fL MCH 29.2 27.0 - 31.0 pg MCHC 32.4 32.0 - 36.0 g/dL RDW 16.5 (H) 11.5 - 14.5 % MPV 10.4 8.4 - 12.0 fL NRBC 0.00 0.00 /100 WBCs ABSOLUTE NRBC 0.00 0.00 K/uL DIFF METHOD Auto NEUTS 71.7 48.0 - 76.0 % LYMPHS 12.4 (L) 18.0 - 41.0 % MONOS 13.7 (H) 4.0 - 11.0 % EOS 1.1 0.0 - 5.0 % BASOS 0.4 0.0 - 1.5 % Granulocytes, immature (%) 0.7 0.0 - 0.9 % ABSOLUTE NEUTS 6.41 1.92 - 7.60 K/uL ABSOLUTE LYMPHS 1.11 0.72 - 4.10 K/uL ABSOLUTE MONOS 1.23 (H) 0.16 - 1.10 K/uL ABSOLUTE EOS 0.10 0.00 - 0.50 K/uL ABSOLUTE BASOS 0.04 0.00 - 0.15 K/uL Granulocytes, immature 0.06 0.00 - 0.09 K/uL Brief discharge exam: BP (!) 144/93 Pulse 85 Temp 37.4 ??C (99.4 ??F) (Oral) Resp 17 Ht 160 cm (5' 3 ) Wt 65.3 kg (144 lb) SpO2 94% BMI 25.51 kg/m?? Constitutional: Afebrile, nontoxic in appearance, in NAD. Cardiovascular: Regular rate. Hands and feet warm and well-perfused. Respiratory: Speaking in full sentences, no respiratory distress. MS: Moving all extremities. Neuro: Patient alert and oriented. Non-focal. Skin: Warm, dry. Psych: Mood congruent. Denies HI/AH/VH. Cooperative. Vital signs reviewed. Nurses notes reviewed. Diagnosis: Clinical Impression Diagnosis Description Comment Final diagnosis Anxiety Anxiety -- Final Disposition: Transferred Disposition plan: Transfer to [facility] Communication with outpatient providers: per BAG MACHINE HELPER Discharge management: 30 minutes or less spent on discharge management on the observation dischargeday. Philip Rivera MD documented in this encounter Medications at Time of Discharge famotidine (PEPCID) 20 MG tablet Take 20 mg by mouth daily. lithium carbonate 150 mg capsule Take 150 mg by mouth daily. LORazepam (ATIVAN) 0.5 MG tablet Take 0.5 mg by mouth every 4 (four) hours as needed for anxiety. midodrine (PROAMATINE) 5 MG tablet Take 5 mg by mouth 3 (three) times a day. OLANZapine (ZYPREXA) 5 MG tablet Take 5 mg by mouth 2 (two) times a day. omeprazole (PRILOSEC) 20 MG capsule Take 20 mg by mouth daily. sertraline (ZOLOFT) 100 MG tablet Take 200 mg by mouth daily. zolpidem (AMBIEN) 5 MG tablet Take 5 mg by mouth nightly at bedtime. cholecalciferol (VITAMIN D3) 5,000 unit capsuleIndications: Vitamin D insufficiency Take 1 capsule (5,000 Units total) by mouth daily. 90 capsule 1 02/23/2024 clonazePAM (KLONOPIN) 1 MG tablet Take 1 mg by mouth 2 (two) times a day as needed. 07/26/2022 DULoxetine (CYMBALTA) 60 MG capsule Take 60 mg by mouth 2 (two) times a day. lamoTRIgine (LAMICTAL) 100 MG IMMEDIATE release tablet Take 1 tablet by mouth every morning. 12/12/2023 OLANZapine (ZYPREXA) 7.5 MG tablet Take 7.5 mg by mouth nightly at bedtime. 08/31/2023 riTUXimab (RITUXAN) 10 mg/mL injectionIndication s:next dose due 10/2016 Inject 100 mL (1,000 mg total) into the vein every 6 (six) months. Reported on 09/30/2016 Indications: next dose due 10/2016 100 mL 1 04/20/2017 documented as of this encounter Consult Notes Only the most recent of 3 notes is shown. * Ray Pablo - 02/01/2025 4:29 PM EDT Crisis Update Spoke with ct. He reports he is very anxious. I'm feeling really scared. Ct reports he continues to want IPLOC. Ct asked for help signing up for [employer]. Tw provided ct with Financial Counselorinformation. Ct denies current SI but states he cannot live like this and needs medication management. Bedsearch to continue. documented in this encounter ED Notes * Kolton Lion PA-C - 02/01/2025 6:27 PM EDT Emergency Department Observation Progress Note Arrival Date: 01/31/2025 Subjective: No acute events. Relevant past medical history: History of anxiety Objective: BP (!) 144/93 Pulse 85 Temp 37.4 ??C (99.4 ??F) (Oral) Resp 17 Ht 160 cm (5' 3 ) Wt 65.3 kg (144 lb) SpO2 94% BMI 25.51 kg/m?? Constitutional: Afebrile, nontoxic in appearance, in NAD. Cardiovascular: Regular rate. Hands and feet warm and well-perfused. Respiratory: Speaking in full sentences, no respiratory distress. MS: Moving all extremities. Neuro: Patient alert and oriented. Non-focal. Skin: Warm, dry. Psych: SI Mood congruent. Denies HI/AH/VH. Cooperative. Section 12: No Vital signs reviewed. Nurses notes reviewed. Assessment & Plan: Continue bed search per BAG MACHINE HELPER recommendations Ongoing mental health evaluation and treatment pending disposition as determined by BAG MACHINE HELPER psych consult, appreciate recommendations Continue home meds Disposition Endpoints: If BAG MACHINE HELPER finds an inpatient bed, then the patient will be admitted or transferred to the appropriate facility. BAG MACHINE HELPER to reassess Kolton Lion PA-C * Leonardo Dietz RN - 02/01/2025 12:20 PM EDT ED Nursing Progress Note Patient provided with a meal tray, set up items, and positioned patient appropriately on the stretcher. All safety protocols are in place. Direct 1:2+ observation is in place. Will continue to monitor. * Frankie Power RN - 02/01/2025 11:17 AM EDT ED Nursing Progress Note Pt up to nursing station to ask for help w/ another pt that is making them feel increasingly anxious. Other pt redirected away and pt given 0.5 mg Ativan to help w/ anxiety, effects pending. * Leonardo Dietz RN - 02/01/2025 8:20 AM EDT ED Nursing Progress Note Patient provided with a meal tray, set up items, and positioned patient appropriately on the stretcher. All safety protocols are in place. Direct 1:2+ observation is in place. Will continue to monitor. * Frankie Power RN - 02/01/2025 7:26 AM EDT ED Nursing Progress Note Assumed care of this patient at change of shift. Pt resting on stretcher w/ eyes closed, respirations even and unlabored, managing secretions, and in NAD. * Anish Valdez RN - 02/01/2025 1:00 AM EDT ED Nursing Progress Note Pt up to use restroom. Given snacks. Pt went back to bed * Anish Valdez RN - 01/31/2025 11:45 PM EDT ED Nursing Progress Note Pt sleeping in gurney. No complaints. Occasional movent on monitor * Lupis Olvera PA-C - 01/31/2025 6:44 PM EDT Emergency Department Observation Initial Note Arrival Date: 01/31/2025 Chief Complaint Patient presents with Psychiatric Evaluation History of Present Illness: Lindsey Smith is a 74 y.o. adult, h/o anxiety, here with anxiety and SI ED Course: Patient presented with primary psychiatric complaints. Medical screen was notable for chronic anemia. The patient was medically cleared for BAG MACHINE HELPER evaluation. The patient was evaluated by BAG MACHINE HELPER who recommended inpatient psychiatric hospitalization. The patient was placed in ED psychiatric observation status for continued monitoring and reassessments while awaiting placement. 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 Anemia treated with iron Anxiety Asthma pt reports old scarring of left lung due to granulomatosis Blood in stool Chronic lower back pain Depressive disorder Dysrhythmia, cardiac 11/16/2022 no symptoms per patient GERD (gastroesophageal reflux disease) Granulomatosis 11/2007 Granulomatosis polyangitis Hearing loss Left ear- sudden loss 10/2012 Kidney stone Post-operative nausea and vomiting shaking Sensorineural hearing loss 05/2012 left ear only Shortness of breath tracheal stenosis Subglottic stenosis Wears glasses Rosie's granulomatosis Social history: Social History Socioeconomic History Marital status: Single Spouse name: Not on file Number of children: Not on file Years of education: Not on file Highest education level: Not on file Occupational History Not on file Tobacco Use Smoking status: Former Current packs/day: 0.00 Average packs/day: 1.5 packs/day for 10.0 years (15.0 ttl pk-yrs) Types: Cigarettes Start date: 05/22/1963 Quit date: 05/22/1973 Years since quittin.7 Smokeless tobacco: Never Vaping Use Vaping status: never used Substance and Sexual Activity Alcohol use: No Comment: Recovery Sober for 35 yrs Drug use: No Sexual activity: Not on file Other Topics Concern Not on file Social History Narrative Single, lives alone in a 3 level house and admits to getting winded while walking on stairs when tracheal stenosis progresses. 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 Admitted to past alcohol abuse- alcoholic in recovery x 38 years in AA . No IVDA, STD or blood transfusions. Hobby: Daily walking in [employer] in a mask 20-45 minutes, gardening mostly pan. Family history: No family history on file. Physical Exam: Constitutional: Afebrile, nontoxic in appearance, in NAD. Cardiovascular: Regular rate. Hands and feet warm and well-perfused. Respiratory: Speaking in full sentences, no respiratory distress. MS: Moving all extremities. Neuro: Grossly non-focal. Vision is grossly intact to both eyes, EOM grossly intact, PERRL. Hearingis grossly intact to both ears. No olfactory deficits are noted. No obvious facial sensory deficitsare noted. Motor function of the face is equal and symmetric. Shoulder shrug is intact. Tongue is in the midline. Skin: Warm, dry. Psych: Mood congruent. Cooperative. Vital signs reviewed. Nurses notes reviewed. Observation Medical Decision Making and Plan: Continue bed search per BAG MACHINE HELPER recommendations Ongoing mental health evaluation and treatment pending disposition as determined by BAG MACHINE HELPER Routine psych consult at 24 hours, appreciate recommendations Continue home meds Disposition endpoints: If BAG MACHINE HELPER finds an inpatient bed, then the patient will be admitted or transferred to the appropriate facility. BAG MACHINE HELPER to reassess need for inpatient psychiatric placement. Section 12: No Discussed ED Obs Plan with Dr. Moon (ED Attending) Lupis Olvera PA-C Cosigned by Mildred Moon MD, PhD at 01/31/2025 11:46 PM EDT Associated attestation - Mildred Moon MD, PhD - 01/31/2025 11:46 PM EDT I saw the patient as part of a shared visit with the advanced practice practitioner. I personally made or approved the management plan and take responsibility for the patient management. * Lurdes Dewey RN - 01/31/2025 10:18 AM EDT Pt states I suffer from high anxiety for weeks. It has caused me not to be able to function. The only way to manage it is being in bed and not doing anything. I have been to other hospitals and I don't think the medicine is working forme. I came here in the hope to get medicine that works for me. It is painful in my body and my chest. And I can't do anything except to rest. Friend states BAG MACHINE HELPER has been to the house yesterday and they said to come and they referred him for inpatient. Pt is anxious appearing. Pt is in no apparent distress. * Lupis Olvera PA-C - 01/31/2025 10:05 AM EDT Chief Complaint Chief Complaint Patient presents with Psychiatric Evaluation History of Present Illness The patient, Lindsey Smith,is a 74 y.o. adult who presents for evaluation of Psychiatric Evaluation The patient is a 74-year-old male with past medical history of subglottic stenosis, anemia, GERD, asthma, anxiety and depression. He presents to the emergency department for worsening anxiety for several months. Reports his anxiety has been worsening since the beginning of the year. Reports he has been to a few other local hospitals for these concerns and that his medications have been changed a few times without reduction in anxiety. Patient endorses SI without plan currently. Reports history of suicide attempts in the past. Denies HI or self-harm. States that the anxiety has gotten so severe that he stays in bed all day. Whenever he tries to do something, he experiences panic. During times of heightened anxiety and panic, reports symptoms of upset stomach, chest pain, jaw clenching/pain. Currently denies any somatic symptoms on initial exam. Denies other acute somatic symptoms or medical concerns. No alcohol or drug use prior to arrival. Unless otherwise specified, I have reviewed and agree with the triage and nursing notes. ROS A ten point review of systems was negative except what was noted in the HPI. 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 Hearing loss Left ear- sudden loss 10/2012 Kidney stone Post-operative nausea and vomiting shaking Sensorineural hearing loss 05/2012 left ear only Shortness of breath tracheal stenosis Subglottic stenosis Wears glasses Rosie's granulomatosis Past Surgical History Past Surgical History: Procedure Laterality Date BALLOON DILATION LARYNGEAL N/A 05/19/2023 Performed by Jhon Gutiérrez MD at [facility] OR BRONCHOSCOPY FLEXIBLE WITH DILATATION N/A 12/10/2015 Performed by Teddy Alas MD at [facility] OR BRONCHOSCOPY FLEXIBLE WITH DILATATION rigid brionchoscopy N/A 07/03/2018 Performed by Teddy Alas MD at [facility] OR BRONCHOSCOPY FLEXIBLE, RIGID BRONCH, BALLOON DILATION N/A 08/24/2017 Performed by Teddy Alas MD at [facility] OR BRONCHOSCOPY RIGID, flexible bronchoscopy, balloon dilation Bilateral 09/30/2016 Performed by Teddy Alas MD at [facility] OR COLONOSCOPY N/A 10/06/2023 Performed by Austin Grace MD at [facility] ENDOSCOPY ESOPHAGOGASTRODUODENOSCOPY N/A 10/06/2023 Performed by Austin Grace MD at [facility] ENDOSCOPY Laser Lithrotripsy 11/2010 LUNG BIOPSY 09/2004 Suspension Microlaryngoscopy with CO2 Laser Excision of Stenosis, Glottic and Subglottic Balloon Dilation, Injection of Kenalog/Corticosteroids, Vocal Fold Augmentation with Prolaryn Gel (Bilateral) N/A 05/19/2023 Performed by Jhon Gutiérrez MD at [facility] OR Tracheal Dilatation started 2008--multiple Home Medications Prior to Admission medications Medication Sig cholecalciferol (VITAMIN D3) 5,000 unit capsule 5,000 Units, Oral, Daily clonazePAM (KLONOPIN) 1 MG tablet 1 mg, Oral, 2 times daily PRN DULoxetine (CYMBALTA) 60 MG capsule 60 mg, Oral, 2 times daily lamoTRIgine (LAMICTAL) 100 MG IMMEDIATE release tablet 1 tablet, Oral, Every morning OLANZapine (ZYPREXA) 7.5 MG tablet 7.5 mg, Oral, Nightly riTUXimab (RITUXAN) 10 mg/mL injection 1,000 mg, Intravenous, Every 6 months, Reported on 09/30/2016 Patient taking differently: Inject 1,000 mg into the vein Once a year. Reported on 09/30/2016 Indications: next dose due 10/2016 Allergies Allergies Allergen Reactions Ciprofloxacin Diarrhea and Other (See Comments) C. Difficile Amoxicillin GI Upset Milk Containing Products (Dairy) Other (See Comments) Increases mucous, also on Vegan diet Opioids - Morphine Analogues Other (See Comments) Converted from narcotics. Please confirm with patient. opioids pt in recovery concern for addictionrelapse Opioids-Meperidine And Related Other (See Comments) Converted from narcotics. Please confirm with patient. opioids pt in recovery concern for addictionrelapse Pollen Extracts Other (See Comments) hoarseness Social and Family History Social History Tobacco Use Smoking status: Former Current packs/day: 0.00 Average packs/day: 1.5 packs/day for 10.0 years (15.0 ttl pk-yrs) Types: Cigarettes Start date: 05/22/1963 Quit date: 05/22/1973 Years since quittin.7 Smokeless tobacco: Never Substance Use Topics Alcohol use: No Comment: Recovery Sober for 35 yrs Social History Substance and Sexual Activity Drug Use No No family history on file. Physical Exam Vital Signs: ED Triage Vitals [01/31/25 1021] Encounter Vitals Group BP 97/67 Systolic BP Percentile Diastolic BP Percentile Heart Rate 81 Respiratory Rate 16 Temperature 35.4 ??C (95.7 ??F) Temp Source Temporal SpO2 97 % Weight 144 lb Height 5' 3 Head Circumference Peak Flow Pain Score Pain Loc Pain Education Exclude from Growth Chart Physical Exam Constitutional: General: He is not in acute distress. Appearance: He is not ill-appearing. Comments: Abnormal voice, baseline HENT: Head: Atraumatic. Nose: Nose normal. Mouth/Throat: Mouth: Mucous membranes are moist. Eyes: Extraocular Movements: Extraocular movements intact. Conjunctiva/sclera: Conjunctivae normal. Pupils: Pupils are equal, round, and reactive to light. Cardiovascular: Rate and Rhythm: Normal rate and regular rhythm. Heart sounds: Normal heart sounds. Pulmonary: Effort: Pulmonary effort is normal. Breath sounds: Normal breath sounds. Abdominal: Palpations: Abdomen is soft. Tenderness: There is no abdominal tenderness. Musculoskeletal: General: Normal range of motion. Cervical back: Neck supple. Skin: General: Skin is warm and dry. Neurological: General: No focal deficit present. Mental Status: He is alert and oriented to person, place, and time. Comments: Neurologic Screening Exam: Grossly non-focal. Vision is grossly intact to both eyes, EOM grossly intact, PERRL. Hearing is grossly intact to both ears. No olfactory deficits are noted. No obvious facial sensory deficits are noted. Motor function of the face is equal and symmetric. Shoulder shrug is intact. Tongue is in the midline. Psychiatric: Attention and Perception: Attention normal. Mood and Affect: Mood is anxious. Speech: Speech normal. Behavior: Behavior is cooperative. Thought Content: Thought content is not paranoid or delusional. Thought content includes suicidal ideation. Thought content does not include homicidal ideation. Thought content does not include suicidal plan. Cognition and Memory: Cognition and memory normal. Laboratory Testing Results for orders placed or performed during the hospital encounter of 01/31/25 Troponin Specimen: Blood Result Value Ref Range Troponin-T, HS Gen5 17 (H) 0 - 14 ng/L CBC and differential Specimen: Blood Result Value Ref Range WBC 8.95 4.00 - 11.00 K/uL RBC 3.80 (L) 4.50 - 5.90 M/uL HGB 11.1 (L) 13.5 - 17.5 g/dL HCT 34.3 (L) 41.0 - 53.0 % PLT 275 150 - 450 K/uL MCV 90.3 80.0 - 100.0 fL MCH 29.2 27.0 - 31.0 pg MCHC 32.4 32.0 - 36.0 g/dL RDW 16.5 (H) 11.5 - 14.5 % MPV 10.4 8.4 - 12.0 fL NRBC 0.00 0.00 /100 WBCs ABSOLUTE NRBC 0.00 0.00 K/uL DIFF METHOD Auto NEUTS 71.7 48.0 - 76.0 % LYMPHS 12.4 (L) 18.0 - 41.0 % MONOS 13.7 (H) 4.0 - 11.0 % EOS 1.1 0.0 - 5.0 % BASOS 0.4 0.0 - 1.5 % Granulocytes, immature (%) 0.7 0.0 - 0.9 % ABSOLUTE NEUTS 6.41 1.92 - 7.60 K/uL ABSOLUTE LYMPHS 1.11 0.72 - 4.10 K/uL ABSOLUTE MONOS 1.23 (H) 0.16 - 1.10 K/uL ABSOLUTE EOS 0.10 0.00 - 0.50 K/uL ABSOLUTE BASOS 0.04 0.00 - 0.15 K/uL Granulocytes, immature 0.06 0.00 - 0.09 K/uL Radiology Testing No orders to display MDM Assessment and Plan: There is no evidence of acute traumatic injury, acute infection, intoxication or withdrawal syndrome to a degree that would preclude further psychiatric evaluation or treatment. This patient is medically stable. BAG MACHINE HELPER will be contacted for further evaluation and disposition. Patient was evaluated in the community by [facility] of [facility]. Recommending voluntary inpatient level of care. Agree with their assessment and plan. Category 1: Tests, Studies or Independent Historians: Prior Data Reviewed: Prior notes reviewed. Category 2 and 3: Independent Interpretation of Tests, Consideration of Tests, or External Discussion of Results: Labs: Laboratory studies were interpreted. ECG: EKG studies were independently interpreted. Rate: 78 Rhythm: sinus rhythm T Wave Inversions: No ST Depressions: No ST Elevations: No Comparison: Unchanged From Prior. Consults: The patient was discussed with Other Consulting Service, please see their documentation for additional details and recommendations. 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 Critical Care Time: 0 minutes Clinical Impression None Disposition: Psych bed search Lupis Olvera PA-C 01/31/25 1846 documented in this encounter Plan of Treatment Scheduled Orders Name Type Priority Associated Diagnoses Orde r Schedule Lab Add On: magnesium level, TSH w/ reflex Lab STAT Once for 1 Occurrences starting 01/31/2025 until 01/31/2025 documented as of this encounter Procedures Procedure Name Priority Date/Time Associated Diagnosis Comments TOXICOLOGY SCREEN, URINE STAT 01/31/2025 11:26 AM EDT ETHANOL, BLOOD STAT 01/31/2025 10:41 AM EDT TSH WITH REFLEX Routine 01/31/2025 10:41 AM EDT LFTS (HEPATIC PANEL) STAT 01/31/2025 10:41 AM EDT CBC AND DIFFERENTIAL STAT 01/31/2025 10:41 AM EDT TROPONIN STAT 01/31/2025 10:41 AM EDT MAGNESIUM Routine 01/31/2025 10:41 AM EDT BASIC METABOLIC PANEL STAT 01/31/2025 10:41 AM EDT ECG 12-LEAD STAT 01/31/2025 10:27 AM EDT documented in this encounter Results * (ABNORMAL) Toxicology screen, urine (01/31/2025 11:26 AM EDT) URINE CANNABINOIDS NONE DETECTED NONE DETECTED [facility] Comment:Cutoff: 50 ng/mL URINE COCAINE METAB NONE DETECTED NONE DETECTED [facility] Comment:Cutoff: 300 ng/mL URINE AMPHETAMINES NONE DETECTED NONE DETECTED [facility] Comment:Cutoff: 1000 ng/mL URINE METHADONE NONE DETECTED NONE DETECTED [facility] Comment:Cutoff: 300 ng/mL URINE OPIATES NONE DETECTED NONE DETECTED [facility] Comment:Cutoff: 300 ng/mL URINE PHENCYCLIDINE NONE DETECTED NONE DETECTED [facility] Comment:Cutoff: 25 ng/mL URINE OXYCODONE NONE DETECTED NONE DETECTED [facility] Comment:Cutoff: 300 ng/mL URINE BARBITURATES NONE DETECTED NONE DETECTED [facility] Comment:Cutoff: 200 ng/mL URINE BENZODIAZEPINE Positive(A) NONE DETECTED [facility] Comment:Cutoff: 200 ng/mL URINE BUPRENORPHINE NONE DETECTED NONE DETECTED [facility] Comment:Cutoff: 5 ng/mL Fentanyl, urine NONE DETECTED NONE DETECTED [facility] Comment: Cutoff: 5 ng/mL INTERPRETATION FOR TOXICOLOGY PANEL: These results are unconfirmed and should be used for Medical Treatment purposes only. Urine (Urine) 01/31/2025 11: 26 AM EDT 01/31/2025 1:19 PM EDT Kolton Lion PA-C URINE ORDERABLES Final Result Performing Organization Address City/[facility]/ZIP Co de Phone Number [address] [address] * TSH with reflex (01/31/2025 10:41 AM EDT) TSH 1.75 0.27 - 4.20 uIU/mL [facility] 01/31/2025 10:4 1 AM EDT 01/31/2025 10:46 AM EDT Kolton Lion PA-C LAB BLOOD ORDERABLES Final Res ult Performing Organization Address [facility]/ZIP Co de Phone Number [address] [address] * Magnesium (01/31/2025 10:41 AM EDT) MAGNESIUM 2.3 1.6 - 2.6 mg/dL [facility] 01/31/2025 10:4 1 AM EDT 01/31/2025 10:46 AM EDT Kolton Lion PA-C LAB BLOOD ORDERABLES Final Res ult Performing Organization Address City/[facility]/ZIP Co de Phone Number [address] [address] * (ABNORMAL) Troponin (01/31/2025 10:41 AM EDT) Troponin-T, HS Gen5 17(H) 0 - 14 ng/L [facility] Blood 01/31/2025 10:4 1 AM EDT 01/31/2025 10:46 AM EDT Kolton Lion PA-C LAB BLOOD ORDERABLES Final Res ult Performing Organization Address [facility]/ZIP Co de Phone Number [address] [address] * Ethanol, blood (01/31/2025 10:41 AM EDT) ETHANOL <10 <10 mg/dL [facility] Blood 01/31/2025 10:4 1 AM EDT 01/31/2025 10:46 AM EDT Kolton Lion PA-C LAB BLOOD ORDERABLES Final Res ult Performing Organization Address [facility]/ZIP Co de Phone Number [address] [address] * (ABNORMAL) LFTs (hepatic panel) (01/31/2025 10:41 AM EDT) ALKALINE PHOSPHATASE 112 39 - 117 U/L [facility] TOTAL BILIRUBIN <0.2 0.0 - 1.2 mg/dL [facility] DIRECT BILIRUBIN <0.1 0.0 - 0.2 mg/dL [facility] Bilirubin (Indirect) NOT CALCULATED 0 - 1.5 mg/dL [facility] AST 18 0 - 37 U/L [facility] ALT 15 0 - 40 U/L [facility] TOTAL PROTEIN 6.3(L) 6.5 - 8.0 g/dL [facility] ALBUMIN 3.6(L) 3.9 - 4.8 g/dL [facility] GLOBULIN 2.7 1 - 4.8 g/dL [facility] A/G Ratio 1.33 1.00 - 4.80 RATIO [facility] Blood 01/31/2025 10:4 1 AM EDT 01/31/2025 10:46 AM EDT Kolton Lion PA-C LAB BLOOD ORDERABLES Final Res ult Performing Organization Address [facility]/ZIP Co de Phone Number [address] [address] * (ABNORMAL) Basic metabolic panel (01/31/2025 10:41 AM EDT) SODIUM 141 133 - 146 mmol/L [facility] CHLORIDE 109(H) 96 - 108 mmol/L [facility] POTASSIUM 4.0 3.3 - 5.1 mmol/L [facility] CO2 20(L) 21 - 35 mmol/L [facility] BUN 14 6 - 19 mg/dL [facility] CREATININE 0.70 0.5 - 1.5 mg/dL [facility] GLUCOSE 96 70 - 99 mg/dL [facility] CALCIUM 8.9 8.4 - 10.3 mg/dL [facility] EGFR 96 >59 mL/min/1.7 3m2 [facility] Comment:Estimated glomerular filtration rate calculated using the CKD-EPI refit equation. ANION GAP 16 10 - 20 mmol/L [facility] Blood 01/31/2025 10:4 1 AM EDT 01/31/2025 10:46 AM EDT Kolton Lion PA-C LAB BLOOD ORDERABLES Final Res ult Performing Organization Address City/[facility]/ZIP Co de Phone Number [address] [address] * (ABNORMAL) CBC and differential (01/31/2025 10:41 AM EDT) WBC 8.95 4.00 - 11.00 K/uL [facility] RBC 3.80(L) 4.50 - 5.90 M/uL [facility] HGB 11.1(L) 13.5 - 17.5 g/dL [facility] HCT 34.3(L) 41.0 - 53.0 % [facility] PLT 275 150 - 450 K/uL [facility] MCV 90.3 80.0 - 100.0 fL [facility] MCH 29.2 27.0 - 31.0 pg [facility] MCHC 32.4 32.0 - 36.0 g/dL [facility] RDW 16.5(H) 11.5 - 14.5 % [facility] MPV 10.4 8.4 - 12.0 fL [facility] NRBC 0.00 0.00 /100 WBCs [facility] ABSOLUTE NRBC 0.00 0.00 K/uL [facility] DIFF METHOD Auto [facility] NEUTS 71.7 48.0 - 76.0 % [facility] LYMPHS 12.4(L) 18.0 - 41.0 % [facility] MONOS 13.7(H) 4.0 - 11.0 % [facility] EOS 1.1 0.0 - 5.0 % [facility] BASOS 0.4 0.0 - 1.5 % [facility] Granulocytes, immature (%) 0.7 0.0 - 0.9 % [facility] ABSOLUTE NEUTS 6.41 1.92 - 7.60 K/uL [facility] ABSOLUTE LYMPHS 1.11 0.72 - 4.10 K/uL [facility] ABSOLUTE MONOS 1.23(H) 0.16 - 1.10 K/uL [facility] ABSOLUTE EOS 0.10 0.00 - 0.50 K/uL [facility] ABSOLUTE BASOS 0.04 0.00 - 0.15 K/uL [facility] Granulocytes, immature 0.06 0.00 - 0.09 K/uL [facility] Blood 01/31/2025 10:4 1 AM EDT 01/31/2025 10:46 AM EDT Kolton Lion PA-C LAB BLOOD ORDERABLES Final Res ult [address] [address] * ECG 12-LEAD (01/31/2025 10:27 AM EDT) Ventricular Rate EKG/MIN 78 BPM [facility] Atrial Rate 78 BPM [facility] NV Interval 158 ms [facility] QRS Duration 72 ms [facility] QT Interval 404 ms [facility] QTC Interval 460 ms [facility] P Lee 52 degrees [facility] R Wave Lee 23 degrees [facility] T Wave Lee 45 degrees [facility] 01/31/2025 10:2 7 AM EDT 01/31/2025 3:44 PM EDT Narrative [facility] - 01/31/2025 3:45 PM EDT Sinus rhythm with marked sinus arrhythmia Otherwise normal ECG When compared with ECG of 17-Nov-2022 13:13, No significant change was found Confirmed by Jak Jones ([id number]) on 01/31/2025 3:44:59 PM Kolton Lion PA-C ECG ORDERABLES Final Result Performing Organization Address [facility] Co de Phone Number [facility] documented in this encounter Visit Diagnoses Diagnosis Anxiety- Primary Anxiety state, unspecified Anxiety Anxiety state, unspecified documented in this encounter Admitting Diagnoses Diagnosis Anxiety Anxiety state, unspecified documented in this encounter Administered Medications Active Administered Medications - up to 3 most recent administrations Medication Order MAR Action Action Date Dose Rate Site famotidine (PEPCID) tablet 20 mg 20 mg, Oral, Daily, First dose on 02/01/25 at 0900 Given 02/01/2025 9:02 AM EDT 20 mg lithium carbonate tablet 150 mg 150 mg, Oral, Daily, First dose on 02/01/25 at 0900, Toxicity levels for non-elderly (divide by one-life for elderly); below 1.2 generally non toxic (sedation, nausea, diarrhea), 1.2-1.5 borderline toxicity (increasing tremors). Given 02/01/2025 8:56 AM EDT 150 mg LORazepam (ATIVAN) tablet 0.5 mg 0.5 mg, Oral, Every 4 hours PRN, anxiety, Starting on Mon01/31/25 at 1930 Given 02/01/2025 9:08 AM EDT 0.5 mg midodrine (PROAMATINE) tablet 5 mg 5 mg, Oral, 3 times daily, First dose on Mon01/31/25 at 2100 Given 02/01/2025 9:16 PM EDT 5 mg Given 02/01/2025 5:42 PM EDT 5 mg Given 02/01/2025 9:03 AM EDT 5 mg OLANZapine (ZyPREXA ZYDIS) disintegrating tablet 5 mg 5 mg, Oral, 3 times daily, First dose (after last modification) on Mon02/01/25 at 2100 Given 02/01/2025 9:16 PM EDT 5 mg pantoprazole (PROTONIX) EC tablet 40 mg 40 mg, Oral, Daily, First dose on Mon02/01/25 at 0900 Given 02/01/2025 9:02 AM EDT 40 mg sertraline (ZOLOFT) tablet 200 mg 200 mg, Oral, Daily, First dose on Mon02/01/25 at 0900 Given 02/01/2025 9:01 AM EDT 200 mg zolpidem (AMBIEN) tablet 5 mg 5 mg, Oral, Nightly, First dose on Mon01/31/25 at 2100, Do not administer with or immediately after a meal Given 02/01/2025 9:16 PM EDT 5 mg Given 01/31/2025 8:59 PM EDT 5 mg Inactive Administered Medications - up to 3 most recent administrations Medication Order MAR Action Action Date Dose Rate Site LORazepam (ATIVAN) tablet 0.5 mg 0.5 mg, Oral, Once, On Mon02/01/25 at 1115, For 1 dose Given 02/01/2025 11:13 AM EDT 0.5 mg LORazepam (ATIVAN) tablet 1 mg 1 mg, Oral, Once, On Mon02/01/25 at 1630, For 1 dose Given 02/01/2025 5:42 PM EDT 1 mg OLANZapine (ZyPREXA) tablet 5 mg 5 mg, Oral, 2 times daily, First dose on Mon01/31/25 at 2100 Given 02/01/2025 9:00 AM EDT 5 mg Given 01/31/2025 9:00 PM EDT 5 mg documented in this encounter Active and Recently Administered Medications Times are shown in EDT. Scheduled Medication Order 01/30/2025 01/31/2025 02/01/2025 famotidine (PEPCID) tablet 20 mg 20 mg, Oral, Daily, First dose on 02/01/25 at 0900 0902 (Given - Provid er: Frankie Power RN) lithium carbonate tablet 150 mg 150 mg, Oral, Daily, First dose on 02/01/25 at 0900, Toxicity levels for non-elderly (divide by one-life for elderly); below 1.2 generally non toxic (sedation, nausea, diarrhea), 1.2-1.5 borderline toxicity (increasing tremors). 0856 (Given - Provid er: Frankie Power RN) LORazepam (ATIVAN) tablet 0.5 mg (COMPLETED) 0.5 mg, Oral, Once, On 02/01/25 at 1115, For 1 dose 1113 (Given - Provid er: Frankie Power RN) LORazepam (ATIVAN) tablet 1 mg (COMPLETED) 1 mg, Oral, Once, On 02/01/25 at 1630, For 1 dose 1742 (Given - Provid er: Frankie Power RN) midodrine (PROAMATINE) tablet 5 mg 5 mg, Oral, 3 times daily, First dose on Mon01/31/25 at 2099 2058 (Given - Provider: Staci Rivera RN) 902 (Given - Provider: Frankie Power RN)1741 (Given - Provider: Frankie Power RN)2115 (Given - Provider: Anish Valdez RN) OLANZapine (ZyPREXA ZYDIS) disintegrating tablet 5 mg 5 mg, Oral, 3 times daily, First dose (after last modification) on Mon02/01/25 at 2099 2115 (Given - Provid er: Anish Valdez RN) OLANZapine (ZyPREXA) tablet 5 mg (CANCELED) 5 mg, Oral, 2 times daily, First dose on Mon01/31/25 at 2099 2099 (Given - Provider: Staci Rivera RN) 0900 (Given - Provider: Frankie Power RN) pantoprazole (PROTONIX) EC tablet 40 mg 40 mg, Oral, Daily, First dose on 02/01/25 at 0900 0902 (Given - Provid er: Frankie Power RN) sertraline (ZOLOFT) tablet 200 mg 200 mg, Oral, Daily, First dose on 02/01/25 at 0900 0901 (Given - Provid er: Frankie Power RN) zolpidem (AMBIEN) tablet 5 mg 5 mg, Oral, Nightly, First dose on Mon01/31/25 at 2100, Do not administer with or immediately after a meal 2058 (Given - Provider: Staci Rivera RN) 2115 (Given - Provider: Anish Valdez RN) PRN Medication Order 01/30/2025 01/31/2025 02/01/2025 LORazepam (ATIVAN) tablet 0.5 mg 0.5 mg, Oral, Every 4 hours PRN, anxiety, Starting on Mon01/31/25 at 1930 0908 (Given - Provid er: Frankie Power RN) documented in this encounter Additional Health Concerns Assessment Noted Time PHQ-2 Depression Total Score: 2 08/31/19 23 1:37 PM EDT documented as of this encounter Care Teams Insole Rasper Relationship Specialty Start Date End Date Angelia Montoya PA [address] [place] [address] PCP - General Physician Physical Therapy Assistant 01/31/25 Hoang Mitchell MD [address] [place] [address] 501_[place] [address] [email or web address] Consulting Provider Rheumatology 10/02/15 Mee Badillo MBBS [address] [place] [address] 501_[place] [address] [email or web address] Primary Oncologist Medical Oncology 08/25/23 documented as of this encounter Additional Source Comments The information contained in this document represents components of the legal health record. It is not the complete legal health record.[facility]
--- NOTE | ~2025-02-02 | XR_ITS ---
EXAMINATION: XR CHEST CLINICAL INFORMATION: cough COMPARISON: December 13, 2024 TECHNIQUE: Frontal view of the chest was obtained. FINDINGS: Prominence of the interstitial markings. Volume loss right lung. Opacity right lower hemithorax/blunting of the costophrenic angle. Linear opacity in the center of the left hemithorax. Cardia mediastinal silhouette size is normal. No pneumothorax. Multilevel thoracolumbar spondylosis and a shaped curvature of the thoracolumbar spine. XR/XR chest 1V IMPRESSION: Mild interstitial edema and probably small volume right-sided pleural effusion. Scoliosis and spondylosis, thoracolumbar spine. Electronically signed by: Darius Penn MD 02/19/2025 03:43 PM EDT
--- NOTE | ~2025-02-02 | CT_ITS ---
EXAMINATION: CT CHEST WITHOUT CONTRAST CLINICAL INFORMATION: Cough. Question interstitial lung disease. COMPARISON: December 28, 2024. TECHNIQUE: Multidetector volumetric CT imaging of the chest was done. Axial MIP volume rendering provided. Sagittal and coronal reformatted images were obtained. This CT examination was performed using dose optimization techniques as appropriate, variously including the following: *Automated exposure control *Adjustment of mA and/or kV according to patient size (this includes techniques or standardized protocols for targeted exams where dose is matched to indication/reason for exam; i.e. extremities or head) *Use of iterative reconstruction technique DLP: 133 mGy centimeter. FINDINGS: EXECUTIVE RECEPTIONIST: Patient's large body habitus. S-shaped curvature of the thoracolumbar spine. Upper extremities at the size of the head. Heart is not enlarged. LUNGS: Patchy and confluent pulmonary groundglass right middle lung lobe, apical segment right upper lung lobe and lingula. Linear attenuation abnormalities and saccular bronchiectasis, left upper lung lobe. Confluent attenuation with air bronchograms, right lower lung lobe. 4 mm noncalcified pulmonary nodule, right middle lung lobe. 2 mm calcified pulmonary nodule, lingula. Airway is patent. MEDIASTINUM: [10 9 mm mediastinal lymph nodes. Calcified plaques in the thoracic aortic arch. No aneurysm, thoracic aorta. Trace of pericardial effusion. No pneumomediastinum. Heart is not enlarged. CORONARY ARTERY CALCIFICATION: Calcified plaques. PLEURA: No pleural effusion. No pneumothorax. No calcified pleural plaques. No hemothorax. AXILLA: No lymphadenopathy. UPPER ABDOMEN: No hydronephrosis in the included kidneys. Gallbladder is contracted. Subtle nodular surface of the liver. Abundant stool in the included large intestine. Calcified plaques in the abdominal aorta wall and the origin of the mesenteric arteries and main renal arteries. OSSEOUS STRUCTURES: Multilevel spondylosis without acute fracture or or gross listhesis. Osteopenia versus osteoporosis. S-shaped curvature of the thoracolumbar spine. No acute rib fracture. Sternum is intact. No gross lytic or blastic lesions. CT/CT chest wo IV con IMPRESSION: Acute on chronic airspace disease. Nonspecific noncalcified pulmonary nodules. Inflammatory versus infectious processes should be considered. Neoplasm cannot be excluded. Pulmonary granulomata. Fleischner guidelines were followed. Electronically signed by: Darius Penn MD 02/21/2025 07:26 AM EDT
--- OUTSIDE RECORDS SUMMARY | 2025-02-02 00:36 | XMS_ITS | Encounter Summary ---
Author Organization [facility] Address [address] [place] [address] Phone Care Team Providers Care Industrial Furnace Fabricator Name Role Phone Hoang Mitchell MD Unavailable [phone] Aaron Collins MD Unavailable Unknown, Unknown Primary Care Provider Mee Beyer MBBS Unavailable [phone] Pcp, Unknown Primary Care Provider UnavailAngelia Wynn Primary Care Provider [phone] Encounter Details Date Type Department Care Team (Late st Contact Info) Description 05/30/2023 Procedure Pass [facility] Periop [address] [place] [address] Social History Tobacco Use Types Packs/Day Years [...] with a working camera? Not on file 05 / Comments No Sex and Gender Information Value [...] documented as of this encounter Care Teams Industrial Furnace Fabricator Relationship Specialty Start Date End Date Unknown, Unknown, MD PCP - General 08/01/23 08/16/23 Pcp, Unknown PCP - General 09/19/23 07/24/24 Angelia Montoya PA [address] [place] [address] PCP - General Physician Wine Pasteurizer 01/31/25 Hoang Mitchell MD [address] [place] [address] [address] [address] [email or web address] Consulting Provider Rheumatology 10/02/15 Aaron Collins MD [address] [address] [email or web address] Primary Oncologist Hematology and Oncology 11/30/2208/23 Mee Badillo MBBS [email or web address] Primary Oncologist Medical Oncology 08/25/23 documented as of this encounter Additional Source Comments The information contained in this document represents components of the legal health record. It is not the complete legal health record.[facility]
--- OUTSIDE RECORDS SUMMARY | 2025-02-02 00:36 | XMS_ITS | Encounter Summary ---
Author Organization [facility] Address [address] [place] [address] Phone Care Team Providers Care Floor Tiling Professional Name Role Phone Hoang Mitchell MD Unavailable [phone] Mee Badillo MBBS Unavailable [phone] Pcp, Unknown Primary Care Provider UnavailAngelia Wynn Primary Care Provider [phone] Encounter Details Date Type Department Care Team (Late st Contact Info) Description 02/29/2024 Procedure Pass [facility] Periop [address] [place] [address] Social History Tobacco Use Types Packs/Day Years [...] documented as of this encounter Care Teams Floor Tiling Professional Relationship Specialty Start Date End Date Pcp, Unknown PCP - General 09/19/23 07/24/24 Angelia Montoya PA [address] [place] [address] PCP - General Physician Rodeo Clown 01/31/25 Hoang Mitchell MD [address] [place] [address]_[place] [address] [email or web address] Consulting Provider Rheumatology 10/02/15 Mee Badillo MBBS [address] [place] [address]_[place] [address] [email or web address] Primary Oncologist Medical Oncology 08/25/23 documented as of this encounter Additional Source Comments The information contained in this document represents components of the legal health record. It is not the complete legal health record.[facility]
--- OUTSIDE RECORDS SUMMARY | 2025-02-02 00:36 | XMS_ITS | Encounter Summary ---
Author Organization [facility] Address [address] [place] [address] Phone Care Team Providers Care Die Maker Name Role Phone Hoang Mitchell MD Unavailable [phone] Mee Badillo MBBS Unavailable [phone] Pcp, Unknown Primary Care Provider UnavailAngelia Wynn Primary Care Provider [phone] Encounter Details Date Type Department Care Team (Late st Contact Info) Description 10/06/2023 Procedure Pass [facility] Endoscopy Admitting Dept Virtual Department [address] [place] [address] Social History Tobacco Use Types Packs/Day Years [...] documented as of this encounter Care Teams Die Maker Relationship Specialty Start Date End Date Pcp, Unknown PCP - General 09/19/23 07/24/24 Angelia Montoya PA [address] [place] [address] PCP - General Physician Documentation Writer 01/31/25 Hoang Mitchell MD [address] [place] [address] 501_[place] [address] [email or web address] Consulting Provider Rheumatology 10/02/15 Mee Badillo MBBS [address] [place] [address] [address]_[place] [address] [email or web address] Primary Oncologist Medical Oncology 08/25/23 documented as of this encounter Additional Source Comments The information contained in this document represents components of the legal health record. It is not the complete legal health record.[facility]
--- OUTSIDE RECORDS SUMMARY | 2025-02-02 00:36 | XMS_ITS | Encounter Summary ---
Author Organization [facility] Address [address] [place] [address] Phone Care Team Providers Care Finance Insurance Manager Name Role Phone Hoang Mitchell MD Unavailable [phone] Aaron Collins MD Unavailable Unknown, Unknown Primary Care Provider Mee Beyer MBBS Unavailable [phone] Pcp, Unknown Primary Care Provider UnavailAngelia Wynn Primary Care Provider [phone] Encounter Details Date Type Department Care Team (Late st Contact Info) Description 05/19/[address] [facility] Periop [address] [place] [address] Social History Tobacco Use Types Packs/Day Years [...] camera? Not on file 05 / Comments Unknown Sex and Gender Information Value [...] documented as of this encounter Care Teams Finance Insurance Manager Relationship Specialty Start Date End Date Unknown, Unknown, PCP - General 08/01/23 08/16/23 Pcp, Unknown PCP - General 09/19/23 07/24/24 Angelia Montoya PA [address] [place] [address] PCP - General Physician Surgery Technician 01/31/25 Hoang Mitchell MD [address] [place] [address] [address] [address] [email or web address] Consulting Provider Rheumatology 10/02/15 Aaron Collins MD [address] [address] [email or web address] Primary Oncologist Hematology and Oncology 11/30/2208/23 Mee Badillo MBBS [email or web address] Primary Oncologist Medical Oncology 08/25/23 documented as of this encounter Additional Source Comments The information contained in this document represents components of the legal health record. It is not the complete legal health record.[facility]
--- OUTSIDE RECORDS SUMMARY | 2025-02-02 00:36 | XMS_ITS | Encounter Summary ---
Author Organization [facility] Address [address] [facility] [address] [place] [address] Phone Care Team Providers Care Traffic Maintenance Supervisor Name Role Phone Hernan Arzola MD Unavailable [email or web address] Hoang Mitchell MD Unavailable [phone] Austin Montoya MD Unavailable [phone] Hernan Arzola MD Unavailable [email or web address] Scott Quiroz MD Unavailable Gabriel Malik MD Unavailable Scott Quiroz MD Primary Care Provider Aaron Collins MD Unavailable Unknown, Unknown Primary Care Provider Mee Beyer Unavailable [phone] Pcp, Unknown Primary Care Provider UnavailAngelia Wynn Primary Care Provider Encounter Details Date Type Department Care Team (Late st Contact Info) Description 04/24/2020 Transcribe Orders [facility] [address] [place] [phone] Unknown, Unknown, Social History Tobacco Use Types [...] documented as of this encounter Care Teams Traffic Maintenance Supervisor Relationship Specialty Start Date End Date Scott Quiroz MD [address] [place] [address] [email or web address] PCP - General Internal Medicine 10/24/17 12/19/22 Unknown, Unknown, MD PCP - General 08/01/23 08/16/23 Pcp, Unknown PCP - General 09/19/23 07/24/24 Angelia Montoya PA [address] [place] [address] PCP - General Physician Machine Binder Stripper 01/31/25 Hernan Arzola MD [email or web address] Internal Medicine 10/02/15 10/20/20 Hoang Mitchell MD [address] [place] [address] 501_[place] [address] [email or web address] Consulting Provider Rheumatology 10/02/15 Austin Montoya MD [address] [place] [address] [email or web address] Historical LMR Provider 03/06/17 05/29/21 Hernan Arzola MD [email or web address] Historical LMR Provider 03/06/17 10/20/20 Scott Quiroz MD [address] [place] [address] [email or web address] Historical LMR Provider 03/06/17 10/20/20 [place] [address] [place] [address] Historical LMR Provider 03/06/17 Aaron Hardy MD [address] [address] [email or web address] Primary Oncologist Hematology and Oncology 11/30/2208/23 Mee Badillo MBBS [email or web address] Primary Oncologist Medical Oncology 08/25/23 documented as of this encounter Additional Source Comments The information contained in this document represents components of the legal health record. It is not the complete legal health record.[facility]
--- OUTSIDE RECORDS SUMMARY | 2025-02-02 00:36 | XMS_ITS | Encounter Summary ---
Author Organization [facility] Address [address] [facility] [address] [place] [address] Phone Care Team Providers Care Microbiology Technician Name Role Phone Hoang Mitchell MD Unavailable [phone] Aaron Collins MD Unavailable Unknown, Unknown Primary Care Provider Mee Beyer MBBS Unavailable [phone] Pcp, Unknown Primary Care Provider UnavailAngelia Wynn Primary Care Provider [phone] Encounter Details Date Type Department Care Team (Latest Contact Info) Description 05/02/2023 Transcribe Orders [facility] [address] [place] [address] Meme Gordillo MD [address] [facility], [address] [place] [address] [email or web address] MGUS (monoclonal gammopathy of unknown significance) [...] documented as of this encounter Care Teams Microbiology Technician Relationship Specialty Start Date End Date Unknown, Unknown, MD PCP - General 08/01/23 08/16/23 Pcp, Unknown PCP - General 09/19/23 07/24/24 Angelia Montoya PA [address] [place] [address] PCP - General Physician Weave Room Supervisor 01/31/25 Hoang Mitchell MD [address] [place] [address] 501_[place] [address] [email or web address]. DU Consulting Provider Rheumatology 10/02/15 Aaron Collins MD [address] [address] Primary Oncologist Hematology and Oncology 11/30/2208/23 Mee Badillo MBBS [email or web address] Primary Oncologist Medical Oncology 08/25/23 documented as of this encounter Additional Source Comments The information contained in this document represents components of the legal health record. It is not the complete legal health record.[facility]
--- OUTSIDE RECORDS SUMMARY | 2025-02-02 00:36 | XMS_ITS | Encounter Summary ---
Author Organization [facility] Address [address] [place] [address] Phone Care Team Providers Care Nursing Director Name Role Phone Hoang Mitchell MD Unavailable Scott Quiroz MD Primary Care Provider [phone] Aaron Collins MD Unavailable Unknown, Unknown Primary Care Provider Mee BeyerBS Unavailable [phone] Pcp, Unknown Primary Care Provider Angelia Alvarez Primary Care Provider [phone] Encounter Details Date Type Department Care Team (Late st Contact Info) Description 08/16/2022 Procedure Pass [facility], Ct Scan - [address] [address] Social History Tobacco Use Types Packs/Day Years [...] 6:04 PM EDT Paul Horn RN * [place] Suicide Severity Rating Scale (Screener/Recent Self-Report) Question Answer Date of Assessment Author 1. Wish to be (Past 1 Month) No 023 6:04 PM EDT Claudette Horn RN 2. Non-Specific Active Suici eunice Thoughts (Past 1 Month) No 08/16/2022 6:04 PM EDT Claudette Honr RN 6. Suicidal Behavior (Lifetime) No 3 6:04 PM EDT Claudette Horn RN documented [...] on filedocumented in this encounter Care Teams Nursing Director Relationship Specialty Start Date End Date Scott Quiroz MD [address] [place] [address] [email or web address] [email or web address] PCP - General Internal Medicine 10/24/17 12/19/22 Unknown, Unknown, PCP - General 08/01/23 08/16/23 Pcp, Unknown PCP - General 09/19/23 07/24/24 Angelia Montoya PA [address] [place] [address] PCP - General Physician Beveller Operator 01/31/25 Hoang Mitchell MD [address] [place] [address] [address]_[place] [address] [email or web address]. DU Consulting Provider Rheumatology 10/02/15 Aaron Collins MD [address] [place] [address] [email or web address] Primary Oncologist Hematology and Oncology 11/30/2208/23 Mee Badillo MBBS [email or web address] Primary Oncologist Medical Oncology 08/25/23 documented as of this encounter Additional Source Comments The information contained in this document represents components of the legal health record. It is not the complete legal health record.[facility]
--- OUTSIDE RECORDS SUMMARY | 2025-02-02 00:36 | XMS_ITS | Encounter Summary ---
Author Organization [facility] Address [address] [employer] [address] [facility] [address] [place] [address] Phone Care Team Providers Care Director Talent Name Role Phone Hoang Mitchell MD Unavailable Scott Quiroz MD Primary Care Provider Aaron Collins MD Unavailable [phone] Unknown, Unknown Primary Care Provider Mee BeyerBS Unavailable Pcp, Unknown Primary Care Provider Angelia Alvarez Primary Care Provider [phone] Encounter Details Date Type Department Care Team (Latest Contact Info) Description 08/24/2022 Transcribe Orders Virtual Department 30 [place] [address] Scott Quiroz MD [address] [place] [address] [email or web address] Cervical spinal stenosis (Primary Dx) Social [...] region documented in this encounter Care Teams Director Talent Relationship Specialty Start Date End Date Scott Quiroz MD [address] [place] [address] [email or web address] PCP - General Internal Medicine 10/24/17 12/19/22 Unknown, Kandy, PCP - General 08/01/23 08/16/23 Pcp, Unknown PCP - General 09/19/23 07/24/24 Angelia Montoya PA [address] [place] [address] PCP - General Physician Emergency Department Physician 01/31/25 Hoang Mitchell MD [address] [place] [address] [address]_[place] [address] [email or web address]. DU Consulting Provider Rheumatology 10/02/15 Aaron Collins MD [address] [address] [email or web address] Primary Oncologist Hematology and Oncology 11/30/2208/23 Mee Badillo MBBS [email or web address] Primary Oncologist Medical Oncology 08/25/23 documented as of this encounter Additional Source Comments The information contained in this document represents components of the legal health record. It is not the complete legal health record.[facility]
--- OUTSIDE RECORDS SUMMARY | 2025-02-02 00:36 | XMS_ITS | Encounter Summary ---
Author Organization [facility] Address [address] [place] [address] Phone Care Team Providers Care Esol Teacher Name Role Phone Hoang Mitchell MD Unavailable [phone] Aaron Collins MD Unavailable [phone] Unknown, Unknown Primary Care Provider Mee Beyer MBBS Unavailable [phone] Pcp, Unknown Primary Care Provider Angelia Alvarez Primary Care Provider [phone] Reason for Referral * MRI/CAT Scan - Closed Specialty Diagnoses / Procedures Referred By Lasha foreman Referred To Contact Radiology Diagnoses Respiratory disorders in diseases classified elsewhere 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 Hoarseness Paralysis of vocal cords and larynx, unilateral Procedures CT Chest Shamar El MD Phone: tel: fax: mailto:[email or web address] Referral ID Status Reason Start Date Expiration Date Visits Re quested Visits Authorized [id number] Closed 01/04/2023 01/04/2024 1 1 * MRI/CAT Scan - Closed Specialty Diagnoses / Procedures Referred By Contpedro t Referred To Contact Radiology Diagnoses Respiratory disorders in diseases classified elsewhere 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 Hoarseness Paralysis of vocal cords and larynx, unilateral Procedures CT Neck Shamar El MD Phone: tel: fax: mailto:[email or web address] Referral ID Status Reason Start Date Expiration Date Visits Re quested Visits Authorized [id number] Closed 01/04/2023 01/04/2024 1 1 Encounter Details Date Type Department Care Team (Latest Contact Info) Description 01/04/2023 Transcribe Orders Virtual Department 30 [place] [address] Shamar El MD [address] [place] [address] [address] [place] [address] [email or web address] Respiratory disorders in diseases classified elsewhere (Primary [...] Assessment Author No 10/01/2016 8:00 AM EDT Amla Hair MD * Patient has serious difficulty [...] No evidence of cervical mass or lymphadenopathy. Shamar El MD IMG CT XSPECIALTY ORDERAB [...] Time PHQ-2 Depression Total Score: 2 08/31/19 1:37 PM EDT documented as of this encounter Care Teams Esol Teacher Relationship Specialty Start Date End Date Unknown, Unknown, PCP - General 08/01/23 08/16/23 Pcp, Unknown PCP - General 09/19/23 07/24/24 Angelia Montoya PA 5 [place] [address] PCP - General Physician Dining Room Server 01/31/25 Hoang Mitchell MD [address] [place] [address] [address]_[place] [address] [email or web address]. DU Consulting Provider Rheumatology 10/02/15 Aaron Collins MD [address] [place] [address] [email or web address] Primary Oncologist Hematology and Oncology 11/30/2208/23 Mee Badillo MBBS [email or web address] Primary Oncologist Medical Oncology 08/25/23 documented as of this encounter Additional Source Comments The information contained in this document represents components of the legal health record. It is not the complete legal health record.[facility]
--- OUTSIDE RECORDS SUMMARY | 2025-02-02 00:37 | XMS_ITS | Encounter Summary ---
Author Organization [facility] Address [address] [place] [address] [place] [address] Phone Care Team Providers Care Electroplating Laborer Name Role Phone Hernan Arzola MD Unavailable [email or web address] Hoang Mitchell MD Unavailable [phone] Austin Montoya MD Unavailable [phone] Hernan Arzola MD Unavailable [email or web address] Scott Quiroz MD Unavailable [phone] Gabriel Malik MD Unavailable Hernan Arzola MD Primary Care Provider [facility] [email or web address] Scott Quiroz MD Primary Care Provider [phone] Aaron Collins MD Unavailable Unknown, Unknown Primary Care Provider Mee Beyer Unavailable [phone] Pcp, Unknown Primary Care Provider UnavailAngelia Wynn Primary Care Provider [phone] Encounter Details Date Type Department Care Team (Latest Contact Info) Description 04/12/2017 Transcribe Orders [facility] [address] [place] [address] Hernan Arzola MD [email or web address] Rosie's granulomatosis (Primary Dx) Social [...] D (TOTAL) 33 30 - 1,000 ng/mL [facility] Blood 04/12/2017 4:41 PM EST 04/12/2017 4:43 PM EST us Hernan Arzola MD LAB BLOOD ORDERABLES Final Result [address] [address] * C-Reactive Protein (04/12/2017 4:41 PM EST) C REACTIVE PROTEIN 0.2 0 - 0.5 mg/L [facility] Blood 04/12/2017 4:41 PM EST 04/12/2017 4:43 PM EST us Hernan Arzola MD LAB BLOOD ORDERABLES Final Result Performing Organization Address [facility] Co de Phone Number [address] [address] * Comprehensive metabolic panel (04/12/2017 4:41 PM EST) SODIUM 145 133 - 146 mmol/L [facility] POTASSIUM 4.4 3.3 - 5.1 mmol/L [facility] CHLORIDE 107 96 - 108 mmol/L [facility] CO2 25 21 - 35 mmol/L [facility] BUN 15 6 - 19 mg/dL [facility] CREATININE 0.70 0.5 - 1.5 mg/dL [facility] GLUCOSE 86 70 - 99 mg/dL [facility] ALBUMIN 4.1 3.9 - 4.8 g/dL [facility] TOTAL PROTEIN 6.6 6.5 - 8.0 g/dL [facility] CALCIUM 9.1 8.4 - 10.3 mg/dL [facility] ALKALINE PHOSPHATASE 79 39 - 117 U/L [facility] TOTAL BILIRUBIN 0.2 0 - 1.2 mg/dL [facility] AST 19 0 - 37 U/L [facility] ALT 12 0 - 40 U/L [facility] GLOBULIN 2.5 1 - 4.8 g/dL [facility] EGFR >60 >60 mL/min/1.7 3m2 [facility] Comment:Abnormal if <60. If patient is -[place], multiply the result by 1.21. ANION GAP 17 10 - 20 mmol/L [facility] Blood 04/12/2017 4:41 PM EST 04/12/2017 4:43 PM EST us Hernan Arzola MD LAB BLOOD ORDERABLES Final Result Performing Organization Address City/State/[facility] Co de Phone Number [address] [address] * (ABNORMAL) CBC and differential (04/12/2017 4:41 PM EST) WBC 4.36 3.40 - 11.20 K/uL [facility] RBC 3.74(L) 4.50 - 5.50 M/uL [facility] HGB 11.3(L) 13.0 - 17.0 g/dL [facility] HCT 34.8(L) 40.0 - 51.0 % [facility] PLT 230 130 - 400 K/uL [facility] MCV 93.0 79.0 - 98.0 fL [facility] MCH 30.2 27.0 - 34.8 pg [facility] MCHC 32.5 31.5 - 36.0 g/dL [facility] RDW 12.9 10.8 - 14.6 % [facility] MPV 11.7 9.4 - 12.4 fl [facility] NRBC 0.00 /100 WBCs [facility] ABSOLUTE NRBC 0.00 K/uL [facility] DIFF METHOD Auto [facility] NEUTS 58.1 45.30 - 77.70 % [facility] LYMPHS 26.1 12.30 - 39.70 % [facility] MONOS 13.1(H) 4.10 - 12.80 % [facility] EOS 1.4 0 - 7.2 % [facility] BASOS 1.1 0 - 2.80 % [facility] Granulocytes, immature (%) 0.2 0.0 - 0.9 % [facility] ABSOLUTE NEUTS 2.53 1.40 - 7.70 K/uL [facility] ABSOLUTE LYMPHS 1.14 0.60 - 3.20 K/uL [facility] ABSOLUTE MONOS 0.57 0.11 - 0.59 K/uL [facility] ABSOLUTE EOS 0.06 0.01 - 0.50 K/uL [facility] ABSOLUTE BASOS 0.05 0.00 - 0.08 K/uL [facility] Granulocytes, immature 0.01 0.00 - 0.05 K/uL [facility] Blood 04/12/2017 4:41 PM EST 04/12/2017 4:43 PM EST us Hernan Arzola MD LAB BLOOD ORDERABLES Final Result Performing Organization Address City/State/[facility] Co de Phone Number [address] [address] documented in this encounter Visit Diagnoses Diagnosis Rosie's granulomatosis- Primary documented in this encounter Additional Health Concerns Infection Onset Date Last Indicated Resolved Time CoV-Risk 03/04/2021 03/04/2021 03/14/2021 1:22 AM EDT documented as of this encounter Care Teams Electroplating Laborer Relationship Specialty Start Date End Date Hernan Arzola MD [email or web address] PCP - General Rheumatology 04/10/17 10/23/17 Scott Quiroz MD [address] [place] [address] [email or web address] PCP - General Internal Medicine 10/24/17 12/19/22 Unknown, Unknown, PCP - General 08/01/23 08/16/23 Pcp, Unknown PCP - General 09/19/23 07/24/24 Angelia Montoya PA [address] [place] [address] PCP - General Physician Supervisor Litharge 01/31/25 Hernan Arzola MD [email or web address] memorial [email or web address] Labschildren[facility] healthcare [facility] Internal Medicine 10/02/15 10/20/20 Hoang Mitchell MD [address] [facility] 501_[place] [address] [email or web address] Consulting Provider Rheumatology 10/02/15 Austin Montoya MD [address] [facility] [address] [place] [address] [email or web address] Historical LMR Provider 03/06/17 05/29/21 Hernan Arzola MD [email or web address] Historical LMR Provider 03/06/17 10/20/20 Scott Quiroz MD [address] [place] [address] [email or web address] Historical LMR Provider 03/06/17 10/20/20 Gabriel Malik MD [address] [address] Historical LMR Provider 03/06/17 Aaron Hardy MD [address] [address] [email or web address] Primary Oncologist Hematology and Oncology 11/30/2208/23 Mee Badillo MBBS [email or web address] Primary Oncologist Medical Oncology 08/25/23 documented as of this encounter Additional Source Comments The information contained in this document represents components of the legal health record. It is not the complete legal health record.[facility]
--- OUTSIDE RECORDS SUMMARY | 2025-02-02 00:37 | XMS_ITS | Encounter Summary ---
Author Organization [facility] Address [address] [facility] [address] [place] [address] Phone Care Team Providers Care Strategic Partnership Representative Name Role Phone Hoang Mitchell MD Unavailable Scott Quiroz MD Primary Care Provider Aaron Collins MD Unavailable Unknown, Unknown Primary Care Provider Mee Beyer MBBS Unavailable Pcp, Unknown Primary Care Provider Angelia Alvarez Primary Care Provider [phone] Encounter Details Date Type Department Care Team (Latest Contact Info) Description 09/09/2021 Transcribe Orders Virtual Department 30 [place] [address] Scott Quiroz MD [address] [place] [address] [email or web address] Pre-procedure lab exam (Primary Dx) Social History [...] Order (09/12/2021 2:58 PM EDT) COVID-19 Comment [id number] [facility] COVID Testing Status Specimen received in analyzing lab. Results should be available within 24 to 48 hrs. [facility] Other 09/12/2021 2:58 PM EDT 09/12/2021 5:47 PM EDT us Scott Quiroz MD BODY FLUIDS AND STOOLS ORDER PORTIA Final Result [facility] [address] [place] [address] [address] documented in this encounter Visit Diagnoses Diagnosis Pre-procedure lab exam- Primary Pre-procedural laboratory examination documented in this encounter Care Teams Strategic Partnership Representative Relationship Specialty Start Date End Date Scott Quiroz MD [address] [address] [email or web address] PCP - General Internal Medicine 10/24/17 12/19/22 Unknown, Unknown, MD PCP - General 08/01/23 08/16/23 Pcp, Unknown PCP - General 09/19/23 07/24/24 Angelia Montoya PA [address] [place] [address] PCP - General Physician Regional Account Manager 01/31/25 Hoang Mitchell MD [address] [place] [address] [address]_[place] [address] [email or web address]. DU Consulting Provider Rheumatology 10/02/15 Aaron Collins MD [address] [address] [email or web address] Primary Oncologist Hematology and Oncology 11/30/2208/23 Mee Badillo MBBS [email or web address] Primary Oncologist Medical Oncology 08/25/23 documented as of this encounter Additional Source Comments The information contained in this document represents components of the legal health record. It is not the complete legal health record.[facility]
--- OUTSIDE RECORDS SUMMARY | 2025-02-02 00:37 | XMS_ITS | Encounter Summary ---
Author Organization [facility] Address [address] [place] [address] [place] [address] Phone Care Team Providers Care Customs Verifier Name Role Phone Hernan Arzola MD Unavailable [email or web address] Hoang Mitchell MD Unavailable [phone] Austin Montoya MD Unavailable [phone] Hernan Arzola MD Unavailable [facility] center[facility] [email or web address] Scott Quiroz MD Unavailable Gabriel Malik MD Unavailable Scott Quiroz MD Primary Care Provider Aaron Collins MD Unavailable [phone] Unknown, Unknown Primary Care Provider Mee Beyer Unavailable [phone] Pcp, Unknown Primary Care Provider UnavailAngelia Wynn Primary Care Provider [phone] Reason for Referral * Physical Therapy (Routine) - Closed Specialty Diagnoses / Procedures Referred By Lasha foreman Referred To Contact Physical Therapy Diagnoses Encounter for rehabilitation Pelvic Floor Procedures Evaluate & Treat Ketan Head MD Phone: tel: fax: mailto:[email or web address] [address] [address] Phone: tel: Referral ID Status Reason Start Date Expiration Date Visits Re quested Visits Authorized [id number] Closed 05/24/2018 05/21/2020 99 99 Encounter Details Date Type Department Care Team (Latest Contact Info) Description 03/19/2019 Transcribe Orders [facility] [address] [place] [address] Ketan Head MD [address] [place] [address], [address] [address] [email or web address] Encounter for rehabilitation (Primary Dx) Social History [...] Diagnoses Orde r Schedule Ambulatory referral to [facility] Physical Therapy Outpatient Referral Routine Encounter for rehabilitation Ordered: 03/19/2019 documented as of this encounter Visit Diagnoses Diagnosis Encounter for rehabilitation- Primary documented in this encounter Additional Health Concerns Infection Onset Date Last Indicated Resolved Time CoV-Risk 03/04/2021 03/04/2021 03/14/2021 1:22 AM EDT documented as of this encounter Care Teams Customs Verifier Relationship Specialty Start Date End Date Scott Quiroz MD [address] [place] [address] [email or web address] PCP - General Internal Medicine 10/24/17 12/19/22 Unknown, Kandy, PCP - General 08/01/23 08/16/23 Pcp, Unknown PCP - General 09/19/23 07/24/24 Angelia Montoya PA [address] [place] [address] PCP - General Physician Inspector Printed Circuit Boards 01/31/25 Hernan Arzola MD [email or web address] Internal Medicine 10/02/15 10/20/20 Hoang Mitchell MD [address] [place] [address] [address]_[place] [address] [email or web address] Consulting Provider Rheumatology 10/02/15 Austin Montoya MD [address] [place] [address] [email or web address] Historical LMR Provider 03/06/17 05/29/21 Hernan Arzola MD [email or web address] Historical LMR Provider 03/06/17 10/20/20 Scott Quiroz MD [address] [place] [address] [email or web address] Historical LMR Provider 03/06/17 10/20/20 Gabriel Malik MD [address] [address] Historical LMR Provider 03/06/17 2 Aaron Collins MD [address] [place] [address] [email or web address] Primary Oncologist Hematology and Oncology 11/30/2208/23 Mee Badillo MBBS [email or web address] Primary Oncologist Medical Oncology 08/25/23 documented as of this encounter Additional Source Comments The information contained in this document represents components of the legal health record. It is not the complete legal health record.[facility]
--- OUTSIDE RECORDS SUMMARY | 2025-02-02 00:37 | XMS_ITS | Encounter Summary ---
Author Organization [employer] Address [address] [facility] 7 [place] [address] Care Team Providers Care Helper Maintenance Cleaning Name Role Phone Unavailable Primary Care Provider [...]
--- OUTSIDE RECORDS SUMMARY | 2025-02-02 00:37 | XMS_ITS | Encounter Summary ---
Author Organization [facility] Address [address] [place] [address] [place] [address] Phone Care Team Providers Care Slip Cover Sewer Name Role Phone Hernan Arzola MD Unavailable [email or web address] Hoang Mitchell MD Unavailable [phone] Austin Montoya MD Unavailable [phone] Hernan Arzola MD Unavailable [facility] [email or web address] Scott Quiroz MD Unavailable [phone] Gabriel Malik MD Unavailable Scott Quiroz MD Primary Care Provider [phone] Aaron Collins MD Unavailable Unknown, Unknown Primary Care Provider Mee Beyer Unavailable [phone] Pcp, Unknown Primary Care Provider UnavailAngelia Wynn Primary Care Provider [phone] Reason for Referral * Physical Therapy (Elective) - Closed Specialty Diagnoses / Procedures Referred By Lasha foreman Referred To Contact Physical Therapy Diagnoses Encounter for rehabilitation Left Shoulder Pain Scott Quiroz MD Phone: tel: fax: [email or web address] [address] Phone: tel: Referral ID Status Reason Start Date Expiration Date Visits Re quested Visits Authorized [id number] Closed 11/23/2018 03/01/2019 99 99 Encounter Details Date Type Department Care Team (Latest Contact Info) Description 11/23/2018 Transcribe Orders [facility] [address] [place] [address] Scott Quiroz MD [address] [place] [address] [email or web address] Encounter for rehabilitation (Primary Dx) [...] Diagnoses Orde r Schedule Ambulatory referral to [facility] Physical Therapy Outpatient Referral Routine Encounter for rehabilitation Ordered: 11/23/2018 documented as of this encounter Visit Diagnoses Diagnosis Encounter for rehabilitation- Primary documented in this encounter Additional Health Concerns Infection Onset Date Last Indicated Resolved Time CoV-Risk 03/04/2021 03/04/2021 03/14/2021 1:22 AM EDT documented as of this encounter Care Teams Slip Cover Sewer Relationship Specialty Start Date End Date Scott Quiroz MD [address] [place] [address] [email or web address] PCP - General Internal Medicine 10/24/17 12/19/22 Unknown, Unknown, MD PCP - General 08/01/23 08/16/23 Pcp, Unknown PCP - General 09/19/23 07/24/24 Angelia Montoya PA [address] [place] [address] PCP - General Physician Medical Clerical Assistant 01/31/25 Hernna Arzola MD [email or web address] Internal Medicine 10/02/15 10/20/20 Hoang Mitchell MD [address] [place] [address] [address] [address] [email or web address] .[email or web address] Consulting Provider Rheumatology 10/02/15 Austin Montoya MD [address] [place] [address], [place] [address] [email or web address] Historical LMR Provider 03/06/17 05/29/21 Hernan Arzola MD [email or web address] Historical LMR Provider 03/06/17 10/20/20 Scott Quiroz MD [address] [place] [address] [email or web address] Historical LMR Provider 03/06/17 10/20/20 Gabriel Malik MD [address] [facility] [address] [place] [address] Historical LMR Provider 03/06/17 2 [place] [address] [place] [address] [email or web address] Primary Oncologist Hematology and Oncology 11/30/2208/23 Mee Badillo MBBS [email or web address] Primary Oncologist Medical Oncology 08/25/23 documented as of this encounter Additional Source Comments The information contained in this document represents components of the legal health record. It is not the complete legal health record.[facility]
--- OUTSIDE RECORDS SUMMARY | 2025-02-02 00:37 | XMS_ITS | Encounter Summary ---
Author Organization [facility] Address On license of [facility] [address] [place] [address] Phone Care Team Providers Care Oil And Gas Lease Pumper Name Role Phone Hoang Mitchell MD Unavailable Austin Montoya MD Unavailable [phone] Gabriel Malik MD Unavailable Scott Quiroz MD Primary Care Provider KarinaAaron avendano MD Unavailable [phone] Unknown, Unknown Primary Care Provider Mee Beyer Unavailable [phone] Pcp, Unknown Primary Care Provider UnavailAngelia Wynn Primary Care Provider [phone] Encounter Details Date Type Department Care Team (Late st Contact Info) Description 03/06/2021 Procedure Pass [facility], Ct Scan - [address] [address] Social History Tobacco Use Types Packs/Day Years [...] 5:31 PM EDT Shakila Balderas RN * Divide Suicide Severity Rating Scale (Screener/Recent Self-Report) Question Answer Date of Assessment Author 1. Wish to be (Past 1 Month) No 021 5:31 PM EDT Shakila Balderas RN 2. Non-Specific Active Suici eunice Thoughts (Past 1 Month) No 03/06/2021 5:31 PM EDT Shakila Balderas, RN 6. Suicidal Behavior (Lifetime) No 5:31 PM EDT Shakila Balderas, MARIIA documented as of this encounter Mental Status [...] documented as of this encounter Care Teams Oil And Gas Lease Pumper Relationship Specialty Start Date End Date Scott Quiroz MD [address] [place] [address] [email or web address] PCP - General Internal Medicine 10/24/17 12/19/22 Unknown, Unknown, MD PCP - General 08/01/23 08/16/23 Pcp, Unknown PCP - General 09/19/23 07/24/24 Angelia Montoya PA [address] [place] [address] PCP - General Physician Taker Down 01/31/25 Hoang Mitchell MD [address] [place] [address] 501_[place] [address] [email or web address] Consulting Provider Rheumatology 10/02/15 Austin Montoya MD [address] [place] [address] [email or web address] Historical LMR Provider 03/06/17 05/29/21 Gabriel Malik MD [address] [address] Historical LMR Provider 03/06/17 2 Aaron Collins MD [facility] [address] [address] [email or web address] Primary Oncologist Hematology and Oncology 11/30/2208/23 Mee Badillo MBBS [email or web address] Primary Oncologist Medical Oncology 08/25/23 documented as of this encounter Additional Source Comments The information contained in this document represents components of the legal health record. It is not the complete legal health record.[facility]
--- OUTSIDE RECORDS SUMMARY | 2025-02-02 00:37 | XMS_ITS | Encounter Summary ---
Author Organization [facility] Address [address] [place] [address] [place] [address] Phone Care Team Providers Care Management Retail Intern Name Role Phone Scott Quiroz MD Primary Care Provider [phone] Hernan Arzola MD Unavailable [facility] [email or web address] Hoang Mitchell MD Unavailable [phone] Autsin Montoya MD Unavailable [phone] Hernan Arzola MD Unavailable [facility]ne [email or web address] Scott Quiroz MD Unavailable [phone] Gabriel Malik MD Unavailable [phone] Hernan Arzola MD Primary Care Provider [email or web address] Scott Quiroz MD Primary Care Provider [phone] Aaron Collins MD Unavailable [phone] Unknown, Unknown Primary Care Provider Mee Beyer Unavailable [phone] Pcp, Unknown Primary Care Provider UnavailAngelia Wynn Primary Care Provider [phone] Encounter Details Date Type Department Care Team (Late st Contact Info) Description 09/30/2016 Procedure Pass [facility] PERIOPERATIVE DEPT [address] [place] [address] Social History Tobacco Use Types Packs/Day [...] documented as of this encounter Care Teams Management Retail Intern Relationship Specialty Start Date End Date Scott Quiroz MD [address] [address] [email or web address] [email or web address] PCP - General 11/19/13 04/09/17 Hernan Arzola MD [email or web address] PCP - General Rheumatology 04/10/17 10/23/17 Scott Quiroz MD [address] [address] [email or web address] services[facility] PCP - General Internal Medicine 10/24/17 12/19/22 Unknown, Kandy, PCP - General 08/01/23 08/16/23 Pcp, Unknown PCP - General 09/19/23 07/24/24 Angelia Montoya PA [address] [place] [address] PCP - General Physician Stone Sawyer 01/31/25 Hernan Arzola MD [email or web address] Internal Medicine 10/02/15 10/20/20 Hoagn Mitchell MD [address] [facility] 501_[place] [address] [email or web address] Consulting Provider Rheumatology 10/02/15 Austin Montoya MD [address] [place] [address] [email or web address] Historical LMR Provider 03/06/17 05/29/21 Hernan Arzola MD [email or web address] Historical LMR Provider 03/06/17 10/20/20 Scott Quiroz MD [address] [place] [address] [email or web address] Historical LMR Provider 03/06/17 10/20/20 [place] [address] [place] [address] Historical LMR Provider 03/06/17 Aaron Hardy MD [address] [place] [address] [email or web address] Primary Oncologist Hematology and Oncology 11/30/2208/23 Mee Badillo MBBS [email or web address] Primary Oncologist Medical Oncology 08/25/23 documented as of this encounter Additional Source Comments The information contained in this document represents components of the legal health record. It is not the complete legal health record.[facility]
--- OUTSIDE RECORDS SUMMARY | 2025-02-02 00:37 | XMS_ITS | Encounter Summary ---
Author Organization [employer] Address [address] [facility] 7 [place] [address] Care Team Providers Care Workforce Development Assistant Name Role Phone Unavailable Primary Care Provider [...]
--- OUTSIDE RECORDS SUMMARY | 2025-02-02 00:37 | XMS_ITS | Encounter Summary ---
Author Organization [facility] Address [address] [place] [address] Phone Care Team Providers Care Manager Icu Name Role Phone Hoang Mitchell MD Unavailable [phone] Aaron Collins MD Unavailable [phone] Unknown, Unknown Primary Care Provider Mee Beyer MBBS Unavailable [phone] Pcp, Unknown Primary Care Provider UnavailAngelia Wynn Primary Care Provider [phone] Encounter Details Date Type Department Care Team (Late st Contact Info) Description 01/04/2023 Procedure Pass [facility], Ct Scan - [address] [address] Social History Tobacco Use Types Packs/Day Years [...] documented as of this encounter Care Teams Manager Icu Relationship Specialty Start Date End Date Unknown, Kandy, PCP - General 08/01/23 08/16/23 Pcp, Unknown PCP - General 09/19/23 07/24/24 Angelia Montoya PA [address] [place] [address] PCP - General Physician Client Application Support Specialist 01/31/25 Hoang Mitchell MD [address] [place] [address] [address]_[place] [address] [email or web address] Consulting Provider Rheumatology 10/02/15 Aaron Collins MD [address] [address] [email or web address] Primary Oncologist Hematology and Oncology 11/30/2208/23 Mee Badillo MBBS [email or web address] Primary Oncologist Medical Oncology 08/25/23 documented as of this encounter Additional Source Comments The information contained in this document represents components of the legal health record. It is not the complete legal health record.[facility]
--- OUTSIDE RECORDS SUMMARY | 2025-02-02 00:37 | XMS_ITS | Clinical Summary ---
Author Organization [employer] Address [address] [facility] 7t [place] [address] Care Team Providers Care Senior Svp Name Role Phone Unavailable Primary Care Provider [...] Colorectal Cancer Screening 01/17/2024 FIT 01/17/2024 01/16/2023, 08/11/2022, 01/14/2023 Dental X-Ray: Bitewings 02/03/2024 02/02/20 23, 12/02/2021, 12/16/2020, Additional history exists RSV Patients and Patients Aged 60 years or older (1 - 1-dose 75+ series) 2024 COVID-19 Vaccine (4 - 2024- season) 2025 11/07/2021, 12/04/2020, 11/13/2020 Influenza Vaccine (#1) 2025 4, 03/23/2022, 03/23/2022, [...]
--- OUTSIDE RECORDS SUMMARY | 2025-02-02 00:37 | XMS_ITS | Encounter Summary ---
Author Organization [employer] Address [address] [facility] 7t [place] [address] Care Team Providers Care Cook Ice Cream Name Role Phone Unavailable Primary Care Provider Unavailabl e Encounter Details Date Type Department Care Team (Late st Contact Info) Description 07/30/2024 [facility] [address] [place] [address] Chaparrita Starr Social History Tobacco Use Types [...]
--- OUTSIDE RECORDS SUMMARY | 2025-02-02 00:37 | XMS_ITS | Encounter Summary ---
Author Organization [facility] Address [address] [facility] [address] [place] [address] Phone Care Team Providers Care Fire Supervisor Name Role Phone Hernan Arzola MD Unavailable [email or web address] Hoang Mitchell MD Unavailable [phone] Austin Montoya MD Unavailable [phone] Hernan Arzola MD Unavailable [facility] Scott Quiroz MD Unavailable [phone] Gabriel Malik MD Unavailable Scott Quiroz MD Primary Care Provider Aaron Collins MD Unavailable Unknown, Unknown Primary Care Provider Mee Beyer Unavailable [phone] Pcp, Unknown Primary Care Provider UnavailAngelia Wynn Primary Care Provider Encounter Details Date Type Department Care Team (Late st Contact Info) Description 02/13/2019 Ancillary Orders Virtual Department [address] [place] [address] Scott Quiroz MD [address] [address] [email or web address] Frequent urination Social History Tobacco Use Types [...] Author No 10/01/2016 8:00 AM ABIGAILT Alma aHir MD documented in this encounter Plan of [...] as of this encounter Care Teams Fire Supervisor Relationship Specialty Start Date End Date Scott Quiroz MD [address] [place] [address] [email or web address] Globalnorth[facility] PCP - General Internal Medicine 10/24/17 12/19/22 Unknown, Kandy, PCP - General 08/01/23 08/16/23 Pcp, Unknown PCP - General 09/19/23 07/24/24 Angelia Montoya PA [address] [place] [address] PCP - General Physician Bicycle Taxi Driver 01/31/25 Hernan Arzola MD [email or web address] Internal Medicine 10/02/15 10/20/20 Hoang Mitchell MD [address] [place] [address] 501_[place] [address] [email or web address] Consulting Provider Rheumatology 10/02/15 Austin Montoya MD [address] [place] [address] [email or web address] Historical LMR Provider 03/06/17 05/29/21 Hernan Arzola MD [email or web address] Historical LMR Provider 03/06/17 10/20/20 Scott Quiroz MD [address] [place] [address] [email or web address] Historical LMR Provider 03/06/17 10/20/20 Gabriel Malik MD [address] [address] Historical LMR Provider 03/06/17 Aaron Hardy MD [address] [address] [email or web address] Primary Oncologist Hematology and Oncology 11/30/2208/23 Mee Badillo MBBS [email or web address] Primary Oncologist Medical Oncology 08/25/23 documented as of this encounter Additional Source Comments The information contained in this document represents components of the legal health record. It is not the complete legal health record.[facility]
--- OUTSIDE RECORDS SUMMARY | 2025-02-02 00:37 | XMS_ITS | Encounter Summary ---
Author Organization [facility] Address [address] [facility] [address] [place] [address] Phone Care Team Providers Care Boiler Technician Name Role Phone Hernan Arzola MD Unavailable constantino Hoang Mitchell MD Unavailable [phone] Austin Montoya MD Unavailable [phone] Hernan Arzola MD Unavailable [facility] Scott Quiroz MD Unavailable Gabriel Malik MD Unavailable Scott Quiroz MD Primary Care Provider Aaron Collins MD Unavailable Unknown, Unknown Primary Care Provider Mee Beyer Unavailable [phone] Pcp, Unknown Primary Care Provider UnavailAngelia Wynn Primary Care Provider Encounter Details Date Type Department Care Team (Late st Contact Info) Description 07/03/2018 Procedure Pass [facility] [address] [place] [phone] Social History Tobacco Use Types Packs/Day Years [...] documented as of this encounter Care Teams Boiler Technician Relationship Specialty Start Date End Date Scott Quiroz MD [address] [place] [address] [email or web address] PCP - General Internal Medicine 10/24/17 12/19/22 Unknown, Unknown, MD PCP - General 08/01/23 08/16/23 Pcp, Unknown PCP - General 09/19/23 07/24/24 Angelia Montoya PA [address] [place] [address] PCP - General Physician Gaming Investigator 01/31/25 Hernan Arzola MD [email or web address] Internal Medicine 10/02/15 10/20/20 Hoang Mitchell MD [address] [place] [address] 501_[place] [address] [email or web address] Consulting Provider Rheumatology 10/02/15 Austin Montoya MD [address] [place] [address] [email or web address] Historical LMR Provider 03/06/17 05/29/21 Hernan Arzola MD [email or web address] Historical LMR Provider 03/06/17 10/20/20 Scott Quiroz MD [address] [place] [address] [email or web address] Historical LMR Provider 03/06/17 10/20/20 [place] [address] [place] [address] Historical LMR Provider 03/06/17 Aaron Hardy MD [address] [place] [address] [email or web address] Primary Oncologist Hematology and Oncology 11/30/2208/23 Mee Badillo MBBS [email or web address] Primary Oncologist Medical Oncology 08/25/23 documented as of this encounter Additional Source Comments The information contained in this document represents components of the legal health record. It is not the complete legal health record.[facility]
--- OUTSIDE RECORDS SUMMARY | 2025-02-02 00:37 | XMS_ITS | Encounter Summary ---
Author Organization [employer] Address [address] [facility] 7t [place] [address] Care Team Providers Care Promotion Specialist Name Role Phone Unavailable Primary Care Provider [...]
--- OUTSIDE RECORDS SUMMARY | 2025-02-02 00:37 | XMS_ITS | Encounter Summary ---
Author Organization [facility] Address [address] [facility] [address] [place] [address] Phone Care Team Providers Care Mixer Slagman Name Role Phone Hernan Arzola MD Unavailable [email or web address] Hoang Mitchell MD Unavailable [phone] Austin Montoya MD Unavailable [phone] Hernan Arzola MD Unavailable addison [email or web address] Mediamem[email or web address] Scott Quiroz MD Unavailable Gabriel Malik MD Unavailable Hernan Arzola MD Primary Care Provider [email or web address] Scott Quiroz MD Primary Care Provider Aaron Collins MD Unavailable Unknown, Unknown Primary Care Provider Mee Beyer Unavailable [phone] Pcp, Unknown Primary Care Provider Angelia Alvarez Primary Care Provider [phone] Encounter Details Date Type Department Care Team (Late st Contact Info) Description 08/24/2017 Procedure Pass [facility] PERI[facility]IVE [facility]PT [address] [place] [phone] Social History Tobacco Use Types Packs/Day Years [...] documented as of this encounter Care Teams Mixer Slagman Relationship Specialty Start Date End Date Hernan Arzola MD [email or web address] PCP - General Rheumatology 04/10/17 10/23/17 Scott Quiroz MD [address] [place] [address] [email or web address] PCP - General Internal Medicine 10/24/17 12/19/22 Unknown, Unknown, MD PCP - General 08/01/23 08/16/23 Pcp, Unknown PCP - General 09/19/23 07/24/24 Angelia Montoya PA [address] [place] [address] PCP - General Physician Antique Furniture Repairer 01/31/25 Hernan Arzola MD [email or web address] Internal Medicine 10/02/15 10/20/20 Hoang Mitchell MD [address] [place] [address] 501_[place] [address] [email or web address] Consulting Provider Rheumatology 10/02/15 Austin Montoya MD [address] [place] [address] [email or web address] Historical LMR Provider 03/06/17 05/29/21 Hernan Arzola MD [email or web address] Historical LMR Provider 03/06/17 10/20/20 Scott Quiroz MD [address] [place] [address] [email or web address] Historical LMR Provider 03/06/17 10/20/20 [place] [address] [place] [address] Historical LMR Provider 03/06/17 2 Aaron Collins MD [address] [address] Primary Oncologist Hematology and Oncology 11/30/2208/23 Mee Badillo MBBS [email or web address] Primary Oncologist Medical Oncology 08/25/23 documented as of this encounter Additional Source Comments The information contained in this document represents components of the legal health record. It is not the complete legal health record.[facility]
--- OUTSIDE RECORDS SUMMARY | 2025-02-02 00:37 | XMS_ITS | Clinical Summary ---
Author Organization [facility] Address [address] [place] [address] Phone Care Team Providers Care Patient Escort Name Role Phone Hoang Mitchell MD Unavailable [phone] Mee Badillo MBBS Unavailable [phone] Angelia Montoya Primary Care Provider [phone] Allergies Active Allergy Reactions Criticality Noted Date [...] 09/30/2016 hoarseness Medications riTUXimab (RITUXAN) 10 mg/mL injectionIndicati ons:next dose due 10/2016 Inject 100 mL (1,000 mg total) into the vein every 6 (six) months. Reported on 09/30/2016 Indications: next dose due 10/2016 100 mL 1 7 Active Additional Information Patient not taking.Reported on 01/31/2025 clonazePAM (KLONOPIN) 1 MG tablet Take 1 mg by mouth 2 (two) times a day as needed. 3 Active DULoxetine (CYMBALTA) 60 MG capsule Take 60 mg by mouth 2 (two) times a day. Active OLANZapine (ZYPREXA) 7.5 MG tablet Take 7.5 mg by mouth nightly at bedtime. 4 Active lamoTRIgine (LAMICTAL) 100 MG IMMEDIATE release tablet Take 1 tablet by mouth every morning. 4 Active cholecalciferol (VITAMIN D3) 5,000 unit capsuleIndication s:Vitamin D insufficiency Take 1 capsule (5,000 Units total) by mouth daily. 90 capsule 1 4 Active Additional Information Patient not taking.Reported on 01/31/2025 midodrine (PROAMATINE) 5 MG tablet Take 5 mg by mouth 3 (three) times a day. Active OLANZapine (ZYPREXA) 5 MG tablet Take 5 mg by mouth 2 (two) times a day. Active sertraline (ZOLOFT) 100 MG tablet Take 200 mg by mouth daily. Active famotidine (PEPCID) 20 MG tablet Take 20 mg by mouth daily. Active omeprazole (PRILOSEC) 20 MG capsule Take 20 mg by mouth daily. Active zolpidem (AMBIEN) 5 MG tablet Take 5 mg by mouth nightly at bedtime. Active LORazepam (ATIVAN) 0.5 MG tablet Take 0.5 mg by mouth every 4 (four) hours as needed for anxiety. Active lithium carbonate 150 mg capsule Take 150 mg by mouth daily. Active Active Problems Problem Noted Date Diagnosed Date Anxiety 01/31/2025 MGUS (monoclonal gammopathy of unknown significa nce) 01/16/2024 Assessment & Plan (03/10/2024 10:39 PM EDT): Due to stability of his monitoring labs there is no need for intervention at this time-he is followed closely by j2ee programmer oncologist every 6 months. Assessment & Plan (01/16/2024 11:14 PM EDT): IMPRESSION: This is a 73-year-old man with the following diagnoses. MGUS - IgA [place] Anemia of chronic disease/inflammation DISCUSSION: I discussed [...] am requesting advice from his co- managing activities manager at [facility]-Dr. Mitchell on it. Assessment & [...] B cells. 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 He will have COVID-19 vaccination with 2 dose vaccine this week. 2 weeks prior to his next Rituxan infusion we will measure immunoglobulin levels along with MD-3 CBC CRP and chemistry profile. No evidence [...] Rituxan infusion. Reviewed rheumatology notes from the [facility]. Reviewed lab work just prior to Rituxan [...] Range Status Specimen Source 03/09/2020 NASOPHARYNGEAL SWAB (METAL FITTER) Final COVID-19 Comment 03/09/202020200312 Final COVID Testing Status 03/09/2020 Sent to [facility] Final Symptomatic? 03/09/2020 NO Final [...] total of 28 minutes were spent in [id number]-[id number] conversation with the patient coordinating my care with that of the referring activities manager in [place], IV infusion therapy and his primary care [...] its performance characteristics determined by [facility] in a manner consistent with CLIA [...] will speak to the thoracic specialist in [place] when he feels it is necessary to [...] 50% of this 30-minute visit was spent [id number] conversation with the patient going over the [...] The plan will be to consult the contract manager at [facility] who did the last radial dilatation see [...] 4 weeks and he will see his activities manager in [place] in 6 weeks. I reviewed lab work [...] recently had a dilatation procedure done at [facility]. This was done with a rigid [...] this 28 minute visit was spent in wnuq-zu-odhg conversation with the patient going over the [...] Diagnosed Date Resolved Date Nocturnal polyuria 02/28/2019 Assessment & Plan (09/10/2019 1:46 PM EDT): [...] appointment within 2 weeks to see the activities manager in [place]. My point of view the patient is [...] strongly advise a repeat visit to the undertaker assistant for testing. 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 08/20/19 22 Overview (07/12/2014): Stenosis of trachea Encounters Date Type Department Care Team Description 01/31/2025 10:29 AM EDT - 02/01/2025 11:49 PM EDT Hospital Encounter [facility] [address] [place] [address] Mildred Moon MD, PhD Mervat, MD Noel Monk Alberto Juan Ignacio, MD Steinberg, Philip Mckeon MD Discharge Disposition: Hospice/Medical Facility 01/16/2025 Orders Only [facility] [address] [place] [id number] Homehealth, Interface ProviderMD 01/13/2025 7:06 AM EDT - 01/13/2025 11:59 PM EDT Hospital Encounter [facility] Laboratory [address] [place] [address] [place] [address] Chau Reece MD Discharge Disposition: Home or Self Care 01/13/2025 Transcribe Orders [facility] Specimen Processing [address] [place] [address] Chau Reece MD Anxiety (Primary Dx) 01/06/2025 8:05 AM EDT - 01/06/2025 11:59 PM EDT Hospital Encounter [facility] [address] [place] [address] Doreen Garcia NP Discharge Disposition: Home or Self Care 01/06/2025 Transcribe Orders [facility] Specimen Processing [address] [place] [address] Doreen Garcia NP Illness (Primary Dx) 12/20/2024 Telephone [facility] [address] [place] [address] Mee Badillo MBBS R/sing Next Appts from [...] Mass Index 25.51 01/31/2025 10:21 AM EDT Plan of Treatment Health Maintenance Due Date Last Done Comments LITHIUM LEVEL 1950 HEPATITIS C SCREENING 07/30/1967 PNEUMOCOCCAL VACCINES (50+ [...] 2025 02/23/2024, 11/07/2021, 12/04/2020, Additional history exists CREATININE LEVEL 01/31/2026 01/31/2025, , 01/06/2025, Additional history exists TSH LEVEL 01/31/2026 01/31/2025, 06/23, 08/19/2022 LIPID PANEL 01/06/2030 01/06/2025, 07/19/2024 COLONOSCOPY 10/05/2033 10/06/2023 COLORECTAL CANCER SCREENING 10/05/2033 [...] this topic Medical Devices Implanted Type Area Computer Security Specialist Device Identifier Shelf Expiration Date Model / Serial / Lot Syringe Carboxymethylcellulose 1.0 Cc Augment Vocal Fold Radiesse Voice Prolaryn Gel Sodium - [id number] Implanted:Qty: 1 on 05/19/2023 by Jhon Gutiérrez MD at [facility] N/A: Vocal Cord [employer] 12/25/2024 [id number] / / [id number] Procedures Procedure Name Priority Date/Time Associated Diagnosis Comments TOXICOLOGY SCREEN, URINE STAT 01/31/2025 11:26 AM EDT TSH WITH REFLEX Routine 01/31/2025 10:41 AM EDT MAGNESIUM Routine 01/31/2025 10:41 AM EDT TROPONIN STAT 01/31/2025 10:41 AM EDT ETHANOL, BLOOD STAT 01/31/2025 10:41 AM EDT LFTS (HEPATIC PANEL) STAT 01/31/2025 10:41 AM EDT BASIC METABOLIC PANEL STAT 01/31/2025 10:41 AM EDT CBC AND DIFFERENTIAL STAT 01/31/2025 10:41 AM EDT ECG 12-LEAD STAT 01/31/2025 10:27 AM EDT CBC AND DIFFERENTIAL Routine 01/13/2025 4:55 AM [...] Relevant to Health Maintenance Results * (ABNORMAL) Toxicology screen, urine (01/31/2025 11:26 AM EDT) URINE CANNABINOIDS NONE DETECTED NONE DETECTED [facility] Comment:Cutoff: 50 ng/mL URINE COCAINE METAB NONE DETECTED NONE DETECTED [facility] Comment:Cutoff: 300 ng/mL URINE AMPHETAMINES NONE DETECTED NONE DETECTED [facility] Comment:Cutoff: 1000 ng/mL URINE METHADONE NONE DETECTED NONE DETECTED [facility] Comment:Cutoff: 300 ng/mL URINE OPIATES NONE DETECTED NONE DETECTED [facility] Comment:Cutoff: 300 ng/mL URINE PHENCYCLIDINE NONE DETECTED NONE DETECTED [facility] Comment:Cutoff: 25 ng/mL URINE OXYCODONE NONE DETECTED NONE DETECTED [facility] Comment:Cutoff: 300 ng/mL URINE BARBITURATES NONE DETECTED NONE DETECTED [facility] Comment:Cutoff: 200 ng/mL URINE BENZODIAZEPINE Positive(A) NONE DETECTED [facility] Comment:Cutoff: 200 ng/mL URINE BUPRENORPHINE NONE DETECTED NONE DETECTED [facility] Comment:Cutoff: 5 ng/mL Fentanyl, urine NONE DETECTED NONE DETECTED [facility] Comment: Cutoff: 5 ng/mL INTERPRETATION FOR TOXICOLOGY PANEL: These results are unconfirmed and should be used for Medical Treatment purposes only. Urine (Urine) 01/31/2025 11: 26 AM EDT 01/31/2025 1:19 PM EDT Kolton Lion PA-C URINE ORDERABLES Final Result Performing Organization Address City/[facility]/ZIP Co de Phone Number [address] [address] * Ethanol, blood (01/31/2025 10:41 AM EDT) ETHANOL <10 <10 mg/dL [facility] Blood 01/31/2025 10:4 1 AM EDT 01/31/2025 10:46 AM EDT Kolton Lion PA-C LAB BLOOD ORDERABLES Final Res ult Performing Organization Address [facility] Co de Phone Number [address] [address] * TSH with reflex (01/31/2025 10:41 AM EDT) TSH 1.75 0.27 - 4.20 uIU/mL [facility] 01/31/2025 10:4 1 AM EDT 01/31/2025 10:46 AM EDT Kolton Lion PA-C LAB BLOOD ORDERABLES Final Res ult Performing Organization Address [facility] Co de Phone Number [address] [address] * (ABNORMAL) LFTs (hepatic panel) (01/31/2025 10:41 AM EDT) ALKALINE PHOSPHATASE 112 39 - 117 U/L [facility] TOTAL BILIRUBIN <0.2 0.0 - 1.2 mg/dL [facility] DIRECT BILIRUBIN <0.1 0.0 - 0.2 mg/dL [facility] Bilirubin (Indirect) NOT CALCULATED 0 - 1.5 mg/dL [facility] AST 18 0 - 37 U/L [facility] ALT 15 0 - 40 U/L [facility] TOTAL PROTEIN 6.3(L) 6.5 - 8.0 g/dL [facility] ALBUMIN 3.6(L) 3.9 - 4.8 g/dL [facility] GLOBULIN 2.7 1 - 4.8 g/dL [facility] A/G Ratio 1.33 1.00 - 4.80 RATIO [facility] Blood 01/31/2025 10:4 1 AM EDT 01/31/2025 10:46 AM EDT us Kolton Lion PA-C LAB BLOOD ORDERABLES Final Res ult [facility] [address] [place] [address] * (ABNORMAL) CBC and differential (01/31/2025 10:41 AM EDT) Only the most recent of3 resultswithin the time period is included. WBC 8.95 4.00 - 11.00 K/uL [facility] RBC 3.80(L) 4.50 - 5.90 M/uL [facility] HGB 11.1(L) 13.5 - 17.5 g/dL [facility] HCT 34.3(L) 41.0 - 53.0 % [facility] PLT 275 150 - 450 K/uL [facility] MCV 90.3 80.0 - 100.0 [facility] MCH 29.2 27.0 - 31.0 pg [facility] MCHC 32.4 32.0 - 36.0 g/dL [facility] RDW 16.5(H) 11.5 - 14.5 % [facility] MPV 10.4 8.4 - 12.0 fL [facility] NRBC 0.00 0.00 /100 WBCs [facility] ABSOLUTE NRBC 0.00 0.00 K/uL [facility] DIFF METHOD Auto [facility] NEUTS 71.7 48.0 - 76.0 % [facility] LYMPHS 12.4(L) 18.0 - 41.0 % [facility] MONOS 13.7(H) 4.0 - 11.0 % [facility] EOS 1.1 0.0 - 5.0 % [facility] BASOS 0.4 0.0 - 1.5 % [facility] Granulocytes, immature (%) 0.7 0.0 - 0.9 % [facility] ABSOLUTE NEUTS 6.41 1.92 - 7.60 K/uL [facility] ABSOLUTE LYMPHS 1.11 0.72 - 4.10 K/uL [facility] ABSOLUTE MONOS 1.23(H) 0.16 - 1.10 K/uL [facility] ABSOLUTE EOS 0.10 0.00 - 0.50 K/uL [facility] ABSOLUTE BASOS 0.04 0.00 - 0.15 K/uL [facility] Granulocytes, immature 0.06 0.00 - 0.09 K/uL [facility] Blood 01/31/2025 10:4 1 AM EDT 01/31/2025 10:46 AM EDT Kolton Lion PA-C LAB BLOOD ORDERABLES Final Res ult [address] [address] * (ABNORMAL) Troponin (01/31/2025 10:41 AM EDT) Troponin-T, HS Gen5 17(H) 0 - 14 ng/L [facility] Blood 01/31/2025 10:4 1 AM EDT 01/31/2025 10:46 AM EDT Kolton Lion PA-C LAB BLOOD ORDERABLES Final Res ult Performing Organization Address City/[facility]/ZIP Co de Phone Number [address] [address] * Magnesium (01/31/2025 10:41 AM EDT) MAGNESIUM 2.3 1.6 - 2.6 mg/dL [facility] 01/31/2025 10:4 1 AM EDT 01/31/2025 10:46 AM EDT Kolton Lion PA-C LAB BLOOD ORDERABLES Final Res ult Performing Organization Address City/[facility] Co de Phone Number [address] [address] * (ABNORMAL) Basic metabolic panel (01/31/2025 10:41 AM EDT) Only the most recent of3 resultswithin the time period is included. SODIUM 141 133 - 146 mmol/L [facility] CHLORIDE 109(H) 96 - 108 mmol/L [facility] POTASSIUM 4.0 3.3 - 5.1 mmol/L [facility] CO2 20(L) 21 - 35 mmol/L [facility] BUN 14 6 - 19 mg/dL [facility] CREATININE 0.70 0.5 - 1.5 mg/dL [facility] GLUCOSE 96 70 - 99 mg/dL [facility] CALCIUM 8.9 8.4 - 10.3 mg/dL [facility] EGFR 96 >59 mL/min/1.7 3m2 [facility] Comment:Estimated glomerular filtration rate calculated using the CKD-EPI refit equation. ANION GAP 16 10 - 20 mmol/L [facility] Blood 01/31/2025 10:4 1 AM EDT 01/31/2025 10:46 AM EDT Kolton Lion PA-C LAB BLOOD ORDERABLES Final Res ult Performing Organization Address City/[facility]/ZIP Co de Phone Number [address] [address] * ECG 12-LEAD (01/31/2025 10:27 AM EDT) Ventricular Rate EKG/MIN 78 BPM [facility] Atrial Rate 78 BPM [facility] MD Interval 158 ms [facility] QRS Duration 72 ms [facility] QT Interval 404 ms [facility] QTC Interval 460 ms [facility] P [place] 52 degrees [facility] R Wave [place] 23 degrees [facility] T Wave [place] 45 degrees [facility] 01/31/2025 10:2 7 AM EDT 01/31/2025 3:44 PM EDT Narrative [facility] - 01/31/2025 3:45 PM EDT Sinus rhythm with marked sinus arrhythmia Otherwise normal ECG When compared with ECG of 17-Nov-2022 13:13, No significant change was found Confirmed by Jak Jones ([id number]) on 01/31/2025 3:44:59 PM Kolton Lion PA-C ECG ORDERABLES Final Result Performing Organization Address City/[facility]/ZIP Co de Phone Number [facility] * (ABNORMAL) Hemoglobin A1c (01/06/2025 5:40 AM EDT) HEMOGLOBIN A1C 6.1(H) 4.3 - 5.8 % [facility] Blood 01/06/2025 5:40 AM EDT 01/06/2025 8:29 AM EDT us Doreen Garcia METAL FITTER LAB BLOOD ORDERABLES Final Result Performing Organization Address [facility]/ZIP Co de Phone Number [address] [address] * (ABNORMAL) Lipid panel (01/06/2025 5:40 AM EDT) HDL 36 mg/dL [facility] Comment: Interpretation <40 mg/dL: Low HDL cholesterol (major risk factor for CHD) Greater than or equal to 60 mg/dL: High HDL cholesterol ( negative risk factor for CHD) HDL - cholesterol is affected by a number of factors, e.g. smoking, excerise, hormones, sex and age. CHOLESTEROL 224 0 - 240 mg/dL [facility] TRIGLYCERIDES 325(H) 30 - 160 mg/dL [facility] LDL 123 50 - 129 mg/dL [facility] Comment: LDL levels in terms of risk for coronary heart disease: <100 mg/dL: Optimal 100-129 mg/dL: Near or above optimal 130-159 mg/dL: Borderline high 160-189 mg/dL: High >190 mg/dL: Very High CARDIAC RISK RATIO 6.2(H) 3.4 - 5.0 [facility] Blood 01/06/2025 5:40 AM EDT 01/06/2025 8:29 AM EDT us Doreen Garcia METAL FITTER LAB BLOOD ORDERABLES Final Result [facility] [address] [place] [address] * ENDOSCOPY, COLON (10/06/2023 12:29 PM EDT) Narrative Transcriptions Olrando Grace MD - 10/06/2023 12:29 PM EDT [facility] Patient Name: Lindsey Smith Attending MD:: ORLANDO GRACE MD, Procedure Date: 10/06/2023 12:29 PM Date of : 1950 Age: 73 Admit Type: Outpatient Gender: Male Room: [place] [address] Referring MD: Na Faria Exam Type: Colonoscopy [...] age and the absenceof colonic polyps. ORLANDO GRACE MD 10/06/2023 1:01:42 PM This report has been signed electronically. Number of Addenda: 0 Note Initiated On: 10/06/2023 12:29 PM Procedure Code(s): --- Professional --- 90072, Colonoscopy, flexible; diagnostic, including collection of specimen(s) by brushing or washing, when performed (separateprocedure) --- Technical --- 54270, Colonoscopy, flexible; diagnostic, including collection of specimen(s) by brushing or washing, when performed (separateprocedure) Diagnosis Code(s): --- Professional --- K64.8, Other hemorrhoids R19.5, Other fecal abnormalities --- Technical --- K64.8, Other hemorrhoids R19.5, Other fecal abnormalities CPT copyright 2021 [employer]. All rights reserved. The codes documented in this report are preliminary and upon cellar worker reviewmay be revised to meet current compliance requirements. Procedure Date: 10/06/2023 12:29:49 PM [address] [place] [address] us Na Faria SCRUB TECH GI PROCEDURE ORDERABLES Fin al Result * (ABNORMAL) Fecal immunochemical test x1 (FIT) (01/16/2023 1:00 PM EDT) Immuno Fecal Occult Positive(A ) Negative [facility] Stool (Stool) 01/16/2023 1:0 0 PM EDT 01/16/2023 2:03 PM EDT us Aaron Collins MD BODY FLUIDS AND STOOLS ORDERABLES Final Result [facility] [address] [place] [address] from Last 3 Months or Most Recently [...] Advance Directives For more information, please contact: [phone] (9AM - 5PM [facility], Monday-Monday) Documents on File Type Date Recorded Patient Commercial Real Estate Manager Expl anation Healthcare Proxy 12/18/2015 3:47 PM [...] 12:37 PM 12/11/2015 2:27 PM Care Teams Patient Escort Relationship Specialty Start Date End Date Angelia Montoya PA [address] [place] [address] PCP - General Physician Veterans' Coordinator 01/31/25 Hoang Mitchell MD [address] [place] [address]_[place] [address] [email or web address] Consulting Provider Rheumatology 10/02/15 Mee Badillo MBBS [address] [place] [address]_[place] [address] [email or web address] Primary Oncologist Medical Oncology 08/25/23 Additional Source Comments The information contained in this document represents components of the legal health record. It is not the complete legal health record.[facility]
--- OUTSIDE RECORDS SUMMARY | 2025-02-02 00:37 | XMS_ITS | Encounter Summary ---
Author Organization [facility] Address [address] [place] [address] Phone Care Team Providers Care Dish Maker Name Role Phone Hoang Mitchell MD Unavailable Aaron Collins MD Unavailable Unknown, Unknown Primary Care Provider Mee Beyer MBBS Unavailable [phone] Pcp, Unknown Primary Care Provider UnavailAngelia Wynn Primary Care Provider [phone] Encounter Details Date Type Department Care Team (Late st Contact Info) Description 01/04/2023 Procedure Pass [facility], Ct Scan - [address] [address] Social History Tobacco Use Types Packs/Day Years [...] documented as of this encounter Care Teams Dish Maker Relationship Specialty Start Date End Date Unknown, Kandy, PCP - General 08/01/23 08/16/23 Pcp, Unknown PCP - General 09/19/23 07/24/24 Angelia Montoya PA [address] [place] [address] PCP - General Physician Anode Worker 01/31/25 Hoang Mitchell MD [address] [place] [address] [address]_[place] [address] [email or web address] Consulting Provider Rheumatology 10/02/15 Aaron Collins MD [address] [address] [email or web address] Primary Oncologist Hematology and Oncology 11/30/2208/23 Mee Badillo MBBS [email or web address] Primary Oncologist Medical Oncology 08/25/23 documented as of this encounter Additional Source Comments The information contained in this document represents components of the legal health record. It is not the complete legal health record.[facility]
--- OUTSIDE RECORDS SUMMARY | 2025-02-02 00:37 | XMS_ITS | Clinical Summary ---
Author Organization [facility] Address [address] [place] [address] Care Team Providers Care Inventory Audit Clerk Name Role Phone Scott Quiroz Primary Care Provider [phone] Allergies Active Allergy Reactions Criticality Noted Date [...] Documents on File Type Date Recorded Patient Plate Worker Expl anation Health Care Proxy 09/25/2024 10:19 PM Check list * Full Code (Latest Code Status on File) Date Activated Date Inactivated Comments 07/18/2024 7:29 PM 09/25/2024 4:27 PM Healthcare Agents on File Name Relationship Healthcare Agent Relationsor p Communication Jony S Friend Health Care Agent Care Teams Inventory Audit Clerk Relationship Specialty Start Date End Date Scott Quiroz [address] [place] [address] PCP - General Internal Medicine 08/20/24
[2025-02-02 05:11] VITALS: BP 119/68; PULSE 76; RESP 16; TEMP 36.2; O2SAT 96
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
[2025-02-02 05:49] VITALS: BMI 26.0
[2025-02-02 08:39] VITALS: BP 92/53; PULSE 94; RESP 18; TEMP 36.2; O2SAT 95
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
--- NOTE | 2025-02-02 12:44 | P.CONHOSP_ITS ---
History of Present Illness Data of Consult Service Date: 02/02/25 Primary Care Provider: Unknown Physician HPI 74 year old man admitted to the psychiatric unit on conditional voluntary status secondary to anxiety. Review of Systems Review of Systems: Denies any recent fever chills or decrease in appetite respiratory denies any shortness of breath coverage production cardiovascular is adjustment of any PND or edema gastrointestinal denies any dysphagia abdominal pain nausea vomiting or diarrhea genitourinary denies any dysuria frequency or hematuria musculoskeletal denies any joint pain or swelling neuropsych denies any weakness or seizures all other systems reviewed are negative [facility] Medical History (Updated 02/02/25 @ 12:33 by Piyush Krueger MD) Panic attacks Major neurocognitive disorder Hospital discharge follow-up Orthostatic hypotension Personality disorder Depression, major, severe recurrence Transgender Hard of hearing Tracheal stenosis Family History Father Heart disease Social History Household Members: None Housing: House Do you presently have visiting nurse or other home services: No Alcohol intake: current Alcohol intake frequency: does not drink Patient Tobacco Use Status: Former Tobacco user e-Cigarette/Vaping Use: Never Used Second Hand Smoke Exposure: No Currently Displaying Signs/Symptoms of Drug Intoxication Withdrawal: No Have you been hit, kicked, punched, or otherwise hurt by someone within the past year? If so, by whom?: No Do you feel safe in your current relationship?: No Current Relationship Is there a partner from a previous relationship who is making you feel unsafe now?: No Are you made to feel afraid or neglected: No Advance Directives: Yes Advance Directives on File: Yes Advance Directives Date on File: 12/14/24 Do you have thoughts of harming others: None Do you have a plan to hurt others: No Plan Recently lost weight without trying: No Nutrition Risks: No Nutritional Risk Poor oral hygiene: No service: No Current occupational status: retired Sexual orientation: Straight/Heterosexual Cognitive needs: No Hearing needs: No Vision needs: Yes (rx glasses) Meds Allergies Allergy/AdvReac Type Severity Reaction Status Date / Time ciprofloxacin (From CIPRO) Allergy Unknown DIARRHEA Verified 01/14/25 15:28 Morpholine Analogues Allergy Unknown Unknown Verified 01/14/25 15:28 amoxicillin Allergy Nausea Verified 01/14/25 15:28 meperidine Allergy Unknown Verified 01/14/25 15:28 pollen extracts Allergy Unknown Verified 01/14/25 15:28 Active Medications: Current Medications Acetaminophen (Acetaminophen 325 Mg Tablet) 650 mg PO Q6H PRN PRN Reason: Headache/Pain, Scale 1-10 Al Hydroxide/Mg Hydroxide (Magnesium Hydrox/Alum Hydrox 30 Ml Oral.Susp) 30 ml PO Q6H PRN PRN Reason: Heartburn/Nausea Famotidine (Famotidine 20 Mg Tablet) 20 mg PO DAILY [facility] Last Admin: 02/02/25 08:42 Dose: 20 mg Hydroxyzine HCl (Hydroxyzine Hcl 25 Mg Tablet) 25 mg PO Q6H PRN PRN Reason: mild anxiety [place] Carbonate ([place] Carbonate 300 Mg Tablet) 150 mg PO DAILY [facility] Last Admin: 02/02/25 08:42 Dose: 150 mg Lorazepam (Lorazepam 0.5 Mg Tablet) 0.5 mg PO TID [facility] Last Admin: 02/02/25 08:41 Dose: 0.5 mg Magnesium Hydroxide (Milk Of Magnesia 30 Ml Oral.Susp) 30 ml PO DAILY PRN PRN Reason: Constipation Midodrine (Midodrine Hcl 5 Mg Tablet) 5 mg PO TID@0900,1500,1800 [facility] Last Admin: 02/02/25 08:45 Dose: 5 mg Olanzapine (Olanzapine 2.5 Mg Tablet) 2.5 mg PO TID [facility] Last Admin: 02/02/25 08:41 Dose: 2.5 mg Omeprazole (Omeprazole 20 Mg Capsule.Dr) 20 mg PO DAILY@0630 [facility] Last Admin: 02/02/25 08:40 Dose: 20 mg Sertraline HCl (Sertraline Hcl 50 Mg Tablet) 150 mg PO DAILY [facility] Last Admin: 02/02/25 08:42 Dose: 150 mg Trazodone HCl (Trazodone Hcl 50 Mg Tablet) 50 mg PO BEDTIME MRX1 PRN PRN Reason: Insomnia Zolpidem Tartrate (Zolpidem Tartrate 5 Mg Tablet) 5 mg PO BEDTIME [facility] Physical Exam Vital Signs and Narrative: Vital Signs: Last Vital Signs Temp 97.1 F 02/02/25 08:39 Pulse 94 02/02/25 08:39 Resp 18 02/02/25 08:39 BP 92/53 L 02/02/25 08:39 Pulse Ox 95 02/02/25 08:39 O2 Del Method Room Air 02/02/25 08:39 BMI result Body Mass Index 26.0 Appearing in no acute distress head is normocephalic atraumatic eyes pupils are PERRLA sclera is anicteric mouth throat mucous membranes are intact and moist neck is supple no lymphadenopathy, no JVD noted lung sounds are clear to auscultation heart regular rate rhythm, clear S1, S2 positive bowel sounds, abdomen is soft, nontender neuro patient is alert x3, no focal deficits Cranial nerves 2-12 are grossly intact Assessment and Plan (1) Panic attacks: Status: Acute Plan 74 year man admitted by psychiatric services for anxiety Anxiety Management as per psychiatric team GERD PPI Hypotension stable continue midodrine DVT prophylaxis as per admitting team Full code
[2025-02-02 15:13] VITALS: BP 112/59; PULSE 89
[2025-02-02 17:13] VITALS: BP 105/53; PULSE 94
[2025-02-02 19:59] VITALS: BP 113/51; PULSE 74; RESP 17; TEMP 36; O2SAT 97
[2025-02-02 20:59] LABS: Lithium 0.18 mmol/L (0.60-1.20)
[2025-02-02 21:03] LABS: Alanine Aminotransferase 18 U/L (0-40); Albumin Level 3.8 g/dL (3.5-5.0); Alkaline Phosphatase 106 U/L (39-117); Aspartate Amino Transferase 27 U/L (5-37); Total Protein 6.1 g/dL (6.5-8.0)
[2025-02-02 21:15] LABS: Troponin-I High Sensitivity < 2.7 ng/L (<3.5-35.0)
--- NOTE | 2025-02-03 | ECG_ITS ---
Test Reason : PRE FOR CLOMIPRAMINE Blood Pressure : */* mmHG Vent. Rate : 61 BPM Atrial Rate : 61 BPM P-R Int : 140 ms QRS Dur : 72 ms QT Int : 412 ms P-R-T Axes : 28 34 53 degrees QTcB Int : 414 ms Normal sinus rhythm Low voltage QRS Borderline ECG When compared with ECG of 28-Dec-2024 12:13, Vent. rate has decreased by 39 bpm Nonspecific T wave abnormality no longer evident in Inferior leads Referred By: Joe Mc Electronically Signed By: WILSON YANEZ
[2025-02-03 08:50] VITALS: BP 104/59; PULSE 84; RESP 16; TEMP 36.4; O2SAT 93
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
[2025-02-03 09:27] LABS: Alanine Aminotransferase 17 U/L (0-40); Albumin Level 4.1 g/dL (3.5-5.0); Alkaline Phosphatase 115 U/L (39-117); Anion Gap 15 (12-20); Aspartate Amino Transferase 27 U/L (5-37); Blood Urea Nitrogen 10 mg/dL (9-16); Calcium 9.3 mg/dL (8.4-10.2); Carbon Dioxide 20 mmol/L (22-29); Chloride 110 mmol/L (96-108); Cholesterol 245 mg/dL (<200); Creatinine Clr Calc Pharmacy 73.3; Estimated Glomerular Filt Rate > 60; HDL Cholesterol 39 mg/dL (>40); Potassium 4.4 mmol/L (3.3-5.1); Sodium 141 mmol/L (135-145); Total Protein 6.8 g/dL (6.5-8.0); Triglycerides 225 mg/dL (<150)
[2025-02-03 09:37] LABS: Hemoglobin A1C 184.8085 umol/L; Total Hemoglobin (HGBA1C) 4646.4368 umol/L
[2025-02-03 14:56] VITALS: BP 97/54; PULSE 64
[2025-02-03 17:57] VITALS: BP 106/51; PULSE 60
[2025-02-03 20:00] VITALS: BP 105/62; PULSE 75; RESP 16; TEMP 36.1; O2SAT 95
[2025-02-04 07:56] VITALS: BP 113/62; PULSE 76; RESP 14; TEMP 35.7; O2SAT 93
[2025-02-04 08:26] LABS: Cholesterol 240 mg/dL (<200); HDL Cholesterol 39 mg/dL (>40); Triglycerides 209 mg/dL (<150)
--- NOTE | 2025-02-04 14:29 | P.PNPSI_ITS ---
Subjective Subjective Date of Service: 02/04/25 Reason For Visit: SI Interim History: seated in milieu awaiting lunch. appearing tense, but not overwrought with anxiety. states Dr. Mc had spoken of a medication change yesterday and he was awaiting the change. stated, i feel like i need a new medication. lithium discusssed, which is also a new-yassine medication. Mental Status Exam Mental Status Exam Narrative: Appearance: adequate hygiene, appears anxious Behavior: cooperative. psychomotor: no PMA/PMR Speech: clear, normal rate/rhythm/volume, spontaneous Thought process: linear Thought content: no signs of psychosis, anxious Mood: anxious Affect: constricted, hyper-intense, non-labile SI: none expressed HI: none expressed VH/AH: none expressed Delusions: none expressed Insight/judgment:fair x 2. Memory/cog: alert, oriented x3. Diagnostics Vital Signs (24Hr): Vital Signs - 24 hr 02/03/25 14:56 02/03/25 17:57 02/03/25 20:00 Temperature 96.9 F Pulse Rate 64 60 75 Respiratory Rate 16 Blood Pressure 97/54 L 106/51 L 105/62 Pulse Oximetry 95 Oxygen Delivery Method Room Air 02/04/25 07:56 Temperature 96.3 F L Pulse Rate 76 Respiratory Rate 14 Blood Pressure 113/62 Pulse Oximetry 93 Oxygen Delivery Method Room Air BMI result Body Mass Index 26.0 Labs 02/03/25 08:13 Labs: Laboratory Results - last 48 hr 02/02/25 02/03/25 02/03/25 20:39 07:44 08:13 Sodium 141 Potassium 4.4 Chloride 110 H Carbon Dioxide 20 L Anion Gap 15 BUN 10 Creatinine 0.70 Estim Creat Clear Calc 73.3 Estimated GFR > 60 Random Glucose 117 H Estimat Average Glucose 120 Hemoglobin A1c % 5.8 Calcium 9.3 D Total Bilirubin 0.2 0.3 Direct Bilirubin 0.2 AST 27 27 ALT 18 17 Alkaline Phosphatase 106 115 Troponin I High Sens < 2.7 Total Protein 6.1 L 6.8 Albumin 3.8 4.1 Triglycerides 225 H Cholesterol 245 H LDL Cholesterol, Calc 161 H HDL Cholesterol 39 L [place] 0.18 L 02/04/25 07:55 Sodium Potassium Chloride Carbon Dioxide Anion Gap BUN Creatinine Estim Creat Clear Calc Estimated GFR Random Glucose Estimat Average Glucose Hemoglobin A1c % Calcium Total Bilirubin Direct Bilirubin AST ALT Alkaline Phosphatase Troponin I High Sens Total Protein Albumin Triglycerides 209 H Cholesterol 240 H LDL Cholesterol, Calc 160 H HDL Cholesterol 39 L [place] Medications Medications Current Medications Acetaminophen (Acetaminophen 325 Mg Tablet) 650 mg PO Q6H PRN PRN Reason: Headache/Pain, Scale 1-10 Al Hydroxide/Mg Hydroxide (Magnesium Hydrox/Alum Hydrox 30 Ml Oral.Susp) 30 ml PO Q6H PRN PRN Reason: Heartburn/Nausea Famotidine (Famotidine 20 Mg Tablet) 20 mg PO DAILY [facility] Last Admin: 02/04/25 08:00 Dose: 20 mg Hydroxyzine HCl (Hydroxyzine Hcl 25 Mg Tablet) 25 mg PO Q6H PRN PRN Reason: mild anxiety Last Admin: 02/03/25 10:17 Dose: 25 mg [place] Carbonate ([place] Carbonate 300 Mg Tablet) 150 mg PO DAILY [facility] Last Admin: 02/04/25 08:00 Dose: 150 mg Lorazepam (Lorazepam 0.5 Mg Tablet) 0.5 mg PO TID [facility] Last Admin: 02/04/25 08:00 Dose: 0.5 mg Magnesium Hydroxide (Milk Of Magnesia 30 Ml Oral.Susp) 30 ml PO DAILY PRN PRN Reason: Constipation Midodrine (Midodrine Hcl 5 Mg Tablet) 5 mg PO TID@0900,1500,1800 [facility] Last Admin: 02/04/25 11:37 Dose: Not Given Olanzapine (Olanzapine 2.5 Mg Tablet) 2.5 mg PO TID [facility] Last Admin: 02/04/25 08:00 Dose: 2.5 mg Omeprazole (Omeprazole 20 Mg Capsule.Dr) 20 mg PO DAILY@0630 [facility] Last Admin: 02/04/25 06:23 Dose: 20 mg Sertraline HCl (Sertraline Hcl 100 Mg Tablet) 100 mg PO DAILY [facility] Last Admin: 02/04/25 08:00 Dose: 100 mg Trazodone HCl (Trazodone Hcl 50 Mg Tablet) 50 mg PO BEDTIME MRX1 PRN PRN Reason: Insomnia Zolpidem Tartrate (Zolpidem Tartrate 5 Mg Tablet) 5 mg PO BEDTIME [facility] Last Admin: 02/03/25 19:59 Dose: 5 mg Allergies Allergies Allergy/AdvReac Type Severity Reaction Status Date / Time ciprofloxacin (From CIPRO) Allergy Unknown DIARRHEA Verified 01/14/25 15:28 Morpholine Analogues Allergy Unknown Unknown Verified 01/14/25 15:28 amoxicillin Allergy Nausea Verified 01/14/25 15:28 meperidine Allergy Unknown Verified 01/14/25 15:28 pollen extracts Allergy Unknown Verified 01/14/25 15:28 Assessment & Plan Assessment & Plan (1) Panic attacks: Status: Acute Code(s): F41.0 - Panic disorder [episodic paroxysmal anxiety] Plan 02/02: titrate [place] to 150 mg BID. will check lithium level tonight before HS dose to give reference level for any further dosage increases. EKG reviewed from outside ED. elevated Troponin T at outside ED: will repeat tonight, hospitalist to review, defer any other interventions eg Cardiology consultation to primary team given EKG wnl and absent CP/SOB. 02/03: i need a new medication. c/o anxiety. lithium level very low, renal fxn good. increase lithium to 150 BID. Reason for continued inpatient stay Substantial Risk for: inability to function Time Spent With Patient Time: Total time managing care of this patient today __25__ minutes.
[2025-02-04 14:53] VITALS: BP 111/59; PULSE 91
[2025-02-04 21:46] VITALS: BP 112/59; RESP 17; TEMP 36.3; O2SAT 96
[2025-02-05 08:01] VITALS: BP 120/65; PULSE 96; RESP 17; TEMP 36.4; O2SAT 98
--- NOTE | 2025-02-05 09:48 | P.PNPSI_ITS ---
Subjective Subjective Date of Service: 02/05/25 Reason For Visit: SI Interim History: anxious. reviewing recent stressors of tree falling on house and car, recent fall down stairs. amenable to restart clomipramine, which has been helpful for him in the past. per staff, pacing, anxious. eating 100%. slept 7 hours. feeling less anxious in the hospital. Mental Status Exam Mental Status Exam Narrative: Appearance: adequate hygiene, appears anxious Behavior: cooperative. psychomotor: no PMA/PMR Speech: clear, normal rate/rhythm/volume, spontaneous Thought process: linear Thought content: no signs of psychosis, anxious Mood: very anxious Affect: constricted, hyper-intense, non-labile SI: none expressed HI: none expressed VH/AH: none expressed Delusions: none expressed Insight/judgment:fair x 2. Memory/cog: alert, oriented x3. Diagnostics Vital Signs (24Hr): Vital Signs - 24 hr 02/04/25 14:53 02/04/25 21:46 02/05/25 08:01 Temperature 97.4 F 97.5 F Pulse Rate 91 96 Respiratory Rate 17 17 Blood Pressure 111/59 L 112/59 L 120/65 Pulse Oximetry 96 98 Oxygen Delivery Method Room Air Room Air BMI result Body Mass Index 26.0 Labs 02/03/25 08:13 Labs: Laboratory Results - last 48 hr 02/04/25 07:55 Triglycerides 209 H Cholesterol 240 H LDL Cholesterol, Calc 160 H HDL Cholesterol 39 L Medications Medications Current Medications Acetaminophen (Acetaminophen 325 Mg Tablet) 650 mg PO Q6H PRN PRN Reason: Headache/Pain, Scale 1-10 Al Hydroxide/Mg Hydroxide (Magnesium Hydrox/Alum Hydrox 30 Ml Oral.Susp) 30 ml PO Q6H PRN PRN Reason: Heartburn/Nausea Clomipramine HCl (Clomipramine Hcl 25 Mg Capsule) 25 mg PO BEDTIME SAL Famotidine (Famotidine 20 Mg Tablet) 20 mg PO DAILY [facility] Last Admin: 02/05/25 08:34 Dose: 20 mg Hydroxyzine HCl (Hydroxyzine Hcl 25 Mg Tablet) 25 mg PO Q6H PRN PRN Reason: mild anxiety Last Admin: 02/03/25 10:17 Dose: 25 mg [place] Carbonate ([place] Carbonate 300 Mg Tablet) 150 mg PO BID SAL Last Admin: 02/05/25 08:33 Dose: 150 mg Lorazepam (Lorazepam 0.5 Mg Tablet) 0.5 mg PO TID [facility] Last Admin: 02/05/25 08:33 Dose: 0.5 mg Magnesium Hydroxide (Milk Of Magnesia 30 Ml Oral.Susp) 30 ml PO DAILY PRN PRN Reason: Constipation Midodrine (Midodrine Hcl 5 Mg Tablet) 5 mg PO TID@0900,1500,1800 [facility] Last Admin: 02/05/25 08:37 Dose: 5 mg Olanzapine (Olanzapine 2.5 Mg Tablet) 2.5 mg PO TID [facility] Last Admin: 02/05/25 08:33 Dose: 2.5 mg Omeprazole (Omeprazole 20 Mg Capsule.Dr) 20 mg PO DAILY@0630 [facility] Last Admin: 02/05/25 06:17 Dose: 20 mg Sertraline HCl (Sertraline Hcl 100 Mg Tablet) 100 mg PO DAILY [facility] Last Admin: 02/05/25 08:33 Dose: 100 mg Trazodone HCl (Trazodone Hcl 50 Mg Tablet) 50 mg PO BEDTIME MRX1 PRN PRN Reason: Insomnia Zolpidem Tartrate (Zolpidem Tartrate 5 Mg Tablet) 5 mg PO BEDTIME [facility] Last Admin: 02/04/25 20:31 Dose: 5 mg Allergies Allergies Allergy/AdvReac Type Severity Reaction Status Date / Time ciprofloxacin (From CIPRO) Allergy Unknown DIARRHEA Verified 01/14/25 15:28 Morpholine Analogues Allergy Unknown Unknown Verified 01/14/25 15:28 amoxicillin Allergy Nausea Verified 01/14/25 15:28 meperidine Allergy Unknown Verified 01/14/25 15:28 pollen extracts Allergy Unknown Verified 01/14/25 15:28 Assessment & Plan Assessment & Plan (1) Panic attacks: Status: Acute Code(s): F41.0 - Panic disorder [episodic paroxysmal anxiety] Plan EKG reassuring. start clomipramine 25 mg QHS. continue zyprexa 2.5 TID. Reason for continued inpatient stay Substantial Risk for: inability to function Time Spent With Patient Time: Total time managing care of this patient today _25___ minutes.
[2025-02-05 14:34] VITALS: BP 92/51; PULSE 68
[2025-02-05 17:04] VITALS: BP 114/61; PULSE 88
[2025-02-05 20:00] VITALS: BP 169/86; PULSE 82; RESP 18; TEMP 36.1; O2SAT 94
[2025-02-06 08:30] VITALS: BP 120/56; PULSE 99; RESP 18; TEMP 36.5; O2SAT 94
[2025-02-06 08:34] VITALS: BMI 26.4
[2025-02-06] MEDS: Throat Lozenge, Medicated LOZENGE 1 LOZENGE MUCOUS MEM (11:10)
--- NOTE | 2025-02-06 14:19 | HO.PSYCHPN ---
Subjective Subjective Date of Service: 02/06/25 Reason For Visit: SI Interim History: anxious. agreeable to zyprexa PRNs and clomipramine increase. Mental Status Exam Mental Status Exam Narrative: Appearance: adequate hygiene, appears anxious Behavior: cooperative. psychomotor: no PMA/PMR Speech: clear, normal rate/rhythm/volume, spontaneous Thought process: linear Thought content: no signs of psychosis, anxious Mood: very anxious Affect: constricted, hyper-intense, non-labile SI: none expressed HI: none expressed VH/AH: none expressed Delusions: none expressed Insight/judgment:fair x 2. Memory/cog: alert, oriented x3. Diagnostics Vital Signs (24Hr): Vital Signs - 24 hr 02/05/25 14:34 02/05/25 17:04 02/05/25 20:00 Temperature 96.9 F Pulse Rate 68 88 82 Respiratory Rate 18 Blood Pressure 92/51 L 114/61 169/86 H Pulse Oximetry 94 Oxygen Delivery Method Room Air 02/06/25 08:30 Temperature 97.7 F Pulse Rate 99 Respiratory Rate 18 Blood Pressure 120/56 L Pulse Oximetry 94 Oxygen Delivery Method Room Air BMI result Body Mass Index 26.4 Labs 02/03/25 08:13 Medications Medications Current Medications Acetaminophen (Acetaminophen 325 Mg Tablet) 650 mg PO Q6H PRN PRN Reason: Headache/Pain, Scale 1-10 Al Hydroxide/Mg Hydroxide (Magnesium Hydrox/Alum Hydrox 30 Ml Oral.Susp) 30 ml PO Q6H PRN PRN Reason: Heartburn/Nausea Benzocaine (Throat Lozenge, Medicated Lozenge) 1 lozenge MUCOUS MEM Q1H PRN PRN Reason: Sore Throat Last Admin: 02/06/25 11:10 Dose: 1 lozenge Clomipramine HCl (Clomipramine Hcl 25 Mg Capsule) 50 mg PO BEDTIME SAL Clomipramine HCl (Clomipramine Hcl 25 Mg Capsule) 25 mg PO ONCE ONE Stop: 02/06/25 21:01 Famotidine (Famotidine 20 Mg Tablet) 20 mg PO DAILY SAL Last Admin: 02/06/25 08:51 Dose: 20 mg Hydroxyzine HCl (Hydroxyzine Hcl 25 Mg Tablet) 25 mg PO Q6H PRN PRN Reason: mild anxiety Last Admin: 02/06/25 11:10 Dose: 25 mg [place] Carbonate ([place] Carbonate 300 Mg Tablet) 150 mg PO BID [facility] Last Admin: 02/06/25 08:51 Dose: 150 mg Lorazepam (Lorazepam 0.5 Mg Tablet) 0.5 mg PO TID [facility] Last Admin: 02/06/25 08:52 Dose: 0.5 mg Magnesium Hydroxide (Milk Of Magnesia 30 Ml Oral.Susp) 30 ml PO DAILY PRN PRN Reason: Constipation Midodrine (Midodrine Hcl 5 Mg Tablet) 5 mg PO TID@0900,1500,1800 [facility] Last Admin: 02/06/25 08:55 Dose: 5 mg Olanzapine (Olanzapine 2.5 Mg Tablet) 2.5 mg PO TID [facility] Last Admin: 02/06/25 08:52 Dose: 2.5 mg Olanzapine (Olanzapine 2.5 Mg Tablet) 2.5 mg PO BID PRN PRN Reason: severe anxiety Omeprazole (Omeprazole 20 Mg Capsule.Dr) 20 mg PO DAILY@0630 [facility] Last Admin: 02/06/25 05:57 Dose: 20 mg Sertraline HCl (Sertraline Hcl 100 Mg Tablet) 100 mg PO DAILY [facility] Last Admin: 02/06/25 08:52 Dose: 100 mg Trazodone HCl (Trazodone Hcl 50 Mg Tablet) 50 mg PO BEDTIME MRX1 PRN PRN Reason: Insomnia Zolpidem Tartrate (Zolpidem Tartrate 5 Mg Tablet) 5 mg PO BEDTIME [facility] Last Admin: 02/05/25 20:42 Dose: 5 mg Allergies Allergies Allergy/AdvReac Type Severity Reaction Status Date / Time ciprofloxacin (From CIPRO) Allergy Unknown DIARRHEA Verified 01/14/25 15:28 Morpholine Analogues Allergy Unknown Unknown Verified 01/14/25 15:28 amoxicillin Allergy Nausea Verified 01/14/25 15:28 meperidine Allergy Unknown Verified 01/14/25 15:28 pollen extracts Allergy Unknown Verified 01/14/25 15:28 Assessment & Plan Assessment & Plan (1) Panic attacks: Status: Acute Code(s): F41.0 - Panic disorder [episodic paroxysmal anxiety] Plan 02/05: EKG reassuring. start clomipramine 25 mg QHS. continue zyprexa 2.5 TID. 02/06: increase clomipramine to 50 mg starting tomorrow night. add zyhprexa 2.5 mg PRN BID for anxiety. ECT Hx D/W andrzej; Hx is not strongly supportive of its utility for this patient. T/C selegiline or spravato. Reason for continued inpatient stay Substantial Risk for: inability to function Time Spent With Patient Time: Total time managing care of this patient today __35__ minutes.
[2025-02-06 15:19] VITALS: BP 100/52; PULSE 63
[2025-02-06 17:35] VITALS: BP 104/60; PULSE 79
[2025-02-06 20:00] VITALS: BP 138/73; PULSE 80; RESP 16; TEMP 36.1; O2SAT 97
[2025-02-07 08:15] VITALS: BP 119/66; PULSE 77; RESP 18; TEMP 36.5; O2SAT 94
[2025-02-07] MEDS: Throat Lozenge, Medicated LOZENGE 1 LOZENGE MUCOUS MEM (09:50)
[2025-02-07 14:22] VITALS: BP 96/49; PULSE 64
[2025-02-07 15:26] VITALS: BP 111/55; PULSE 88
--- NOTE | 2025-02-07 15:57 | P.PNPSI_ITS ---
Subjective Subjective Date of Service: 02/07/25 Reason For Visit: SI Subjective Notes: Conditional Voluntary Interim History: Pt slept through the night. VS stable with midodrine. He continues to report that he feels anxious. He reports images of tree falling into his house. No SI/HI. Medication Compliance: Yes Review of Systems Review of Systems Denies any recent fever chills or decrease in appetite respiratory denies any shortness of breath coverage production cardiovascular is adjustment of any PND or edema gastrointestinal denies any dysphagia abdominal pain nausea vomiting or diarrhea genitourinary denies any dysuria frequency or hematuria musculoskeletal denies any joint pain or swelling neuropsych denies any weakness or seizures all other systems reviewed are negative Constitutional: Reports chills, Denies difficulty sleeping, Reports fatigue and Denies fever(s) Eyes: Reports as per HPI Reports system reviewed and no additional complaints, except as documented and Reports Normal hearing present Cardiovascular: Denies chest pain, Denies chest pain at rest, Denies chest pain with activity, Reports diaphoresis (at night), Denies syncope, Denies irregular heart rhythm and Denies dyspnea Respiratory: Denies dyspnea Gastrointestinal: Denies abdominal pain, Reports constipation (mild), Denies dyspepsia, Denies heartburn, Denies fecal incontinence, Denies loose stools, Denies vomiting and Denies hematemesis Genitourinary: Denies hematuria and Denies difficulty urinating Musculoskeletal: Denies abnormal gait, Denies back pain and Reports muscle weakness (arms, thighs) Skin/Breast: Reports system reviewed and no additional complaints, except as docu Reports Normal hearing present, Denies Neuro-related abnormal movements, Denies abnormal gait, Denies confusion, Denies syncope and Denies seizure-like activity Psychiatric: Denies abnormal sleep pattern, Reports anxiety, Denies change in appetite, Denies confusion, Reports depression, Denies auditory hallucinations, Reports hopelessness, Reports anhedonia, Reports panic attacks (1-2 times a week), Denies hallucinations, Denies tactile hallucinations, Denies homicidal ideation and Reports suicidal ideation (denies plan or intent) Endocrine: Reports fatigue Hematologic/Lymphatic: Reports no additional hematologic/lymphatic complaints Allergic/Immunologic: Reports no additional allergic/immunologic complaints Mental Status Exam Mental Status Exam Narrative: Appearance: adequate hygiene, appears anxious Behavior: cooperative. psychomotor: no PMA/PMR Speech: clear, normal rate/rhythm/volume, spontaneous Thought process: linear Thought content: no signs of psychosis, anxious Mood: very anxious Affect: constricted, hyper-intense, non-labile SI: none expressed HI: none expressed VH/AH: none expressed Delusions: none expressed Insight/judgment:fair x 2. Memory/cog: alert, oriented x3. Diagnostics Vital Signs (24Hr): Vital Signs - 24 hr 02/06/25 17:35 02/06/25 20:00 02/07/25 08:15 Temperature 97.0 F 97.7 F Pulse Rate 79 80 77 Respiratory Rate 16 18 Blood Pressure 104/60 138/73 119/66 Pulse Oximetry 97 94 Oxygen Delivery Method Room Air Room Air 02/07/25 14:22 02/07/25 15:26 Temperature Pulse Rate 64 88 Respiratory Rate Blood Pressure 96/49 L 111/55 L Pulse Oximetry Oxygen Delivery Method BMI result Body Mass Index 26.4 Labs 02/03/25 08:13 Medications Medications Current Medications Acetaminophen (Acetaminophen 325 Mg Tablet) 650 mg PO Q6H PRN PRN Reason: Headache/Pain, Scale 1-10 Al Hydroxide/Mg Hydroxide (Magnesium Hydrox/Alum Hydrox 30 Ml Oral.Susp) 30 ml PO Q6H PRN PRN Reason: Heartburn/Nausea Benzocaine (Throat Lozenge, Medicated Lozenge) 1 lozenge MUCOUS MEM Q1H PRN PRN Reason: Sore Throat Last Admin: 02/07/25 09:50 Dose: 1 lozenge Clomipramine HCl (Clomipramine Hcl 25 Mg Capsule) 50 mg PO BEDTIME [facility] Famotidine (Famotidine 20 Mg Tablet) 20 mg PO DAILY [facility] Last Admin: 02/07/25 08:43 Dose: 20 mg Hydroxyzine HCl (Hydroxyzine Hcl 25 Mg Tablet) 25 mg PO Q6H PRN PRN Reason: mild anxiety Last Admin: 02/07/25 09:50 Dose: 25 mg [place] Carbonate ([place] Carbonate 300 Mg Tablet) 150 mg PO BID [facility] Last Admin: 02/07/25 08:42 Dose: 150 mg Lorazepam (Lorazepam 0.5 Mg Tablet) 0.5 mg PO TID [facility] Last Admin: 02/07/25 14:33 Dose: 0.5 mg Magnesium Hydroxide (Milk Of Magnesia 30 Ml Oral.Susp) 30 ml PO DAILY PRN PRN Reason: Constipation Midodrine (Midodrine Hcl 5 Mg Tablet) 5 mg PO TID@0900,1500,1800 [facility] Last Admin: 02/07/25 14:33 Dose: 5 mg Olanzapine (Olanzapine 2.5 Mg Tablet) 2.5 mg PO TID [facility] Last Admin: 02/07/25 14:33 Dose: 2.5 mg Olanzapine (Olanzapine 2.5 Mg Tablet) 2.5 mg PO BID PRN PRN Reason: severe anxiety Omeprazole (Omeprazole 20 Mg Capsule.Dr) 20 mg PO DAILY@0630 [facility] Last Admin: 02/07/25 05:58 Dose: 20 mg Sertraline HCl (Sertraline Hcl 100 Mg Tablet) 100 mg PO DAILY [facility] Last Admin: 02/07/25 08:43 Dose: 100 mg Trazodone HCl (Trazodone Hcl 50 Mg Tablet) 50 mg PO BEDTIME MRX1 PRN PRN Reason: Insomnia Zolpidem Tartrate (Zolpidem Tartrate 5 Mg Tablet) 5 mg PO BEDTIME [facility] Last Admin: 02/06/25 19:59 Dose: 5 mg Allergies Allergies Allergy/AdvReac Type Severity Reaction Status Date / Time ciprofloxacin (From CIPRO) Allergy Unknown DIARRHEA Verified 01/14/25 15:28 Morpholine Analogues Allergy Unknown Unknown Verified 01/14/25 15:28 amoxicillin Allergy Nausea Verified 01/14/25 15:28 meperidine Allergy Unknown Verified 01/14/25 15:28 pollen extracts Allergy Unknown Verified 01/14/25 15:28 Assessment & Plan Assessment & Plan (1) Panic attacks: Status: Acute Code(s): F41.0 - Panic disorder [episodic paroxysmal anxiety] Plan 02/05: EKG reassuring. start clomipramine 25 mg QHS. continue zyprexa 2.5 TID. 02/06: increase clomipramine to 50 mg starting tomorrow night. add zyhprexa 2.5 mg PRN BID for anxiety. ECT Hx D/W andrzej; Hx is not strongly supportive of its utility for this patient. T/C selegiline or spravato. 02/07 continue tx. Reason for continued inpatient stay Substantial Risk for: inability to function Time Spent With Patient Time: Total time managing care of this patient today ____ minutes.
[2025-02-07 17:32] VITALS: BP 101/55; PULSE 64
--- NOTE | 2025-02-07 18:03 | PC.NURSE ---
Pt has a b/p of 101/55 and pulse 64. Pt has scheduled Midodrin 5mg for 1800 but was laying in bed after dinner and planning to sleep the rest of the day. Provider aware and advised to hold the medication. RN held scheduled Midodrin but encouraged pt to increase fluid intake.
[2025-02-07 20:00] VITALS: BP 114/58; PULSE 64; RESP 16; TEMP 36.4; O2SAT 96
[2025-02-08 08:00] VITALS: BP 119/60; PULSE 73; RESP 18; TEMP 36.6; O2SAT 95
[2025-02-08 08:25] VITALS: BP 119/60
--- NOTE | 2025-02-08 10:16 | HO.PSYCHPN ---
Subjective Subjective Date of Service: 02/08/25 Reason For Visit: SI Interim History: He continues to report that he feels anxious. Tolerating medication adjustments (Li and Anafranil). Pt slept through the night. VS stable with midodrine. No SI/HI. Review of Systems Review of Systems Denies any recent fever chills or decrease in appetite respiratory denies any shortness of breath coverage production cardiovascular is adjustment of any PND or edema gastrointestinal denies any dysphagia abdominal pain nausea vomiting or diarrhea genitourinary denies any dysuria frequency or hematuria musculoskeletal denies any joint pain or swelling neuropsych denies any weakness or seizures all other systems reviewed are negative Constitutional: Reports chills, Denies difficulty sleeping, Reports fatigue and Denies fever(s) Eyes: Reports as per HPI Reports system reviewed and no additional complaints, except as documented and Reports Normal hearing present Cardiovascular: Denies chest pain, Denies chest pain at rest, Denies chest pain with activity, Reports diaphoresis (at night), Denies syncope, Denies irregular heart rhythm and Denies dyspnea Respiratory: Denies dyspnea Gastrointestinal: Denies abdominal pain, Reports constipation (mild), Denies dyspepsia, Denies heartburn, Denies fecal incontinence, Denies loose stools, Denies vomiting and Denies hematemesis Genitourinary: Denies hematuria and Denies difficulty urinating Musculoskeletal: Denies abnormal gait, Denies back pain and Reports muscle weakness (arms, thighs) Skin/Breast: Reports system reviewed and no additional complaints, except as docu Reports Normal hearing present, Denies Neuro-related abnormal movements, Denies abnormal gait, Denies confusion, Denies syncope and Denies seizure-like activity Psychiatric: Denies abnormal sleep pattern, Reports anxiety, Denies change in appetite, Denies confusion, Reports depression, Denies auditory hallucinations, Reports hopelessness, Reports anhedonia, Reports panic attacks (1-2 times a week), Denies hallucinations, Denies tactile hallucinations, Denies homicidal ideation and Reports suicidal ideation (denies plan or intent) Endocrine: Reports fatigue Hematologic/Lymphatic: Reports no additional hematologic/lymphatic complaints Allergic/Immunologic: Reports no additional allergic/immunologic complaints Mental Status Exam Mental Status Exam Narrative: Appearance: adequate hygiene, appears anxious Behavior: cooperative. psychomotor: no PMA/PMR Speech: clear, normal rate/rhythm/volume, spontaneous Thought process: linear Thought content: no signs of psychosis, anxious Mood: very anxious Affect: constricted, hyper-intense, non-labile SI: none expressed HI: none expressed VH/AH: none expressed Delusions: none expressed Insight/judgment:fair x 2. Memory/cog: alert, oriented x3. Diagnostics Vital Signs (24Hr): Vital Signs - 24 hr 02/07/25 14:22 02/07/25 15:26 02/07/25 17:32 Temperature Pulse Rate 64 88 64 Respiratory Rate Blood Pressure 96/49 L 111/55 L 101/55 L Pulse Oximetry Oxygen Delivery Method 02/07/25 20:00 02/08/25 08:00 02/08/25 08:25 Temperature 97.6 F 97.9 F Pulse Rate 64 73 Respiratory Rate 16 18 Blood Pressure 114/58 L 119/60 119/60 Pulse Oximetry 96 95 Oxygen Delivery Method Room Air Room Air BMI result Body Mass Index 26.4 Labs 02/03/25 08:13 Medications Medications Current Medications Acetaminophen (Acetaminophen 325 Mg Tablet) 650 mg PO Q6H PRN PRN Reason: Headache/Pain, Scale 1-10 Al Hydroxide/Mg Hydroxide (Magnesium Hydrox/Alum Hydrox 30 Ml Oral.Susp) 30 ml PO Q6H PRN PRN Reason: Heartburn/Nausea Benzocaine (Throat Lozenge, Medicated Lozenge) 1 lozenge MUCOUS MEM Q1H PRN PRN Reason: Sore Throat Last Admin: 02/07/25 09:50 Dose: 1 lozenge Clomipramine HCl (Clomipramine Hcl 25 Mg Capsule) 50 mg PO BEDTIME [facility] Last Admin: 02/07/25 21:04 Dose: 50 mg Famotidine (Famotidine 20 Mg Tablet) 20 mg PO DAILY [facility] Last Admin: 02/08/25 08:21 Dose: 20 mg Hydroxyzine HCl (Hydroxyzine Hcl 25 Mg Tablet) 25 mg PO Q6H PRN PRN Reason: mild anxiety Last Admin: 02/07/25 09:50 Dose: 25 mg [place] Carbonate ([place] Carbonate 300 Mg Tablet) 150 mg PO BID [facility] Last Admin: 02/08/25 08:21 Dose: 150 mg Lorazepam (Lorazepam 0.5 Mg Tablet) 0.5 mg PO TID [facility] Last Admin: 02/08/25 08:20 Dose: 0.5 mg Magnesium Hydroxide (Milk Of Magnesia 30 Ml Oral.Susp) 30 ml PO DAILY PRN PRN Reason: Constipation Midodrine (Midodrine Hcl 5 Mg Tablet) 5 mg PO TID@0900,1500,1800 [facility] Last Admin: 02/08/25 08:25 Dose: 5 mg Olanzapine (Olanzapine 2.5 Mg Tablet) 2.5 mg PO TID [facility] Last Admin: 02/08/25 08:21 Dose: 2.5 mg Olanzapine (Olanzapine 2.5 Mg Tablet) 2.5 mg PO BID PRN PRN Reason: severe anxiety Omeprazole (Omeprazole 20 Mg Capsule.Dr) 20 mg PO DAILY@0630 [facility] Last Admin: 02/08/25 06:13 Dose: 20 mg Sertraline HCl (Sertraline Hcl 100 Mg Tablet) 100 mg PO DAILY [facility] Last Admin: 02/08/25 08:21 Dose: 100 mg Trazodone HCl (Trazodone Hcl 50 Mg Tablet) 50 mg PO BEDTIME MRX1 PRN PRN Reason: Insomnia Zolpidem Tartrate (Zolpidem Tartrate 5 Mg Tablet) 5 mg PO BEDTIME [facility] Last Admin: 02/07/25 21:07 Dose: 5 mg Allergies Allergies Allergy/AdvReac Type Severity Reaction Status Date / Time ciprofloxacin (From CIPRO) Allergy Unknown DIARRHEA Verified 01/14/25 15:28 Morpholine Analogues Allergy Unknown Unknown Verified 01/14/25 15:28 amoxicillin Allergy Nausea Verified 01/14/25 15:28 meperidine Allergy Unknown Verified 01/14/25 15:28 pollen extracts Allergy Unknown Verified 01/14/25 15:28 Assessment & Plan Assessment & Plan (1) Panic attacks: Status: Acute Code(s): F41.0 - Panic disorder [episodic paroxysmal anxiety] Plan 02/05: EKG reassuring. start clomipramine 25 mg QHS. continue zyprexa 2.5 TID. 02/06: increase clomipramine to 50 mg starting tomorrow night. add zyhprexa 2.5 mg PRN BID for anxiety. ECT Hx D/W andrzej; Hx is not strongly supportive of its utility for this patient. T/C selegiline or spravato. 02/07 continue tx. 02/08: continue current management and treatment plan. Reason for continued inpatient stay Substantial Risk for: inability to function and rapid decompensation Time Spent With Patient Time: Total time managing care of this patient today ____ minutes.
[2025-02-08 15:55] VITALS: BP 107/53
[2025-02-08 18:08] VITALS: BP 106/51
[2025-02-08 20:49] VITALS: BP 115/52; PULSE 68; RESP 15; TEMP 35.8; O2SAT 97
[2025-02-09 07:54] VITALS: BP 110/61; PULSE 63; RESP 17; TEMP 36.6; O2SAT 97
[2025-02-09 13:07] VITALS: BP 104/52; PULSE 69
[2025-02-09 13:14] VITALS: BP 104/52
--- NOTE | 2025-02-09 15:44 | P.PNPSI_ITS ---
Subjective Subjective Date of Service: 02/09/25 Reason For Visit: SI Interim History: Patient reports he feels better today than yesterday. Reports mornings are harder for him. Tolerating medication adjustments . Pt slept through the night. VS stable with midodrine. No SI/HI. Had a visit from 2 friends. Review of Systems Review of Systems Denies any recent fever chills or decrease in appetite respiratory denies any shortness of breath coverage production cardiovascular is adjustment of any PND or edema gastrointestinal denies any dysphagia abdominal pain nausea vomiting or diarrhea genitourinary denies any dysuria frequency or hematuria musculoskeletal denies any joint pain or swelling neuropsych denies any weakness or seizures all other systems reviewed are negative Constitutional: Reports chills, Denies difficulty sleeping, Reports fatigue and Denies fever(s) Eyes: Reports as per HPI Reports system reviewed and no additional complaints, except as documented and Reports Normal hearing present Cardiovascular: Denies chest pain, Denies chest pain at rest, Denies chest pain with activity, Reports diaphoresis (at night), Denies syncope, Denies irregular heart rhythm and Denies dyspnea Respiratory: Denies dyspnea Gastrointestinal: Denies abdominal pain, Reports constipation (mild), Denies dyspepsia, Denies heartburn, Denies fecal incontinence, Denies loose stools, Denies vomiting and Denies hematemesis Genitourinary: Denies hematuria and Denies difficulty urinating Musculoskeletal: Denies abnormal gait, Denies back pain and Reports muscle weakness (arms, thighs) Skin/Breast: Reports system reviewed and no additional complaints, except as docu Reports Normal hearing present, Denies Neuro-related abnormal movements, Denies abnormal gait, Denies confusion, Denies syncope and Denies seizure-like activity Psychiatric: Denies abnormal sleep pattern, Reports anxiety, Denies change in appetite, Denies confusion, Reports depression, Denies auditory hallucinations, Reports hopelessness, Reports anhedonia, Reports panic attacks (1-2 times a week), Denies hallucinations, Denies tactile hallucinations, Denies homicidal ideation and Reports suicidal ideation (denies plan or intent) Endocrine: Reports fatigue Hematologic/Lymphatic: Reports no additional hematologic/lymphatic complaints Allergic/Immunologic: Reports no additional allergic/immunologic complaints Mental Status Exam Mental Status Exam Narrative: Appearance: adequate hygiene, appears anxious Behavior: cooperative. psychomotor: no PMA/PMR Speech: clear, normal rate/rhythm/volume, spontaneous Thought process: linear Thought content: no signs of psychosis, anxious Mood: very anxious Affect: constricted, hyper-intense, non-labile SI: none expressed HI: none expressed VH/AH: none expressed Delusions: none expressed Insight/judgment:fair x 2. Memory/cog: alert, oriented x3. Diagnostics Vital Signs (24Hr): Vital Signs - 24 hr 02/08/25 15:55 02/08/25 18:08 02/08/25 20:49 Temperature 96.4 F L Pulse Rate 68 Respiratory Rate 15 Blood Pressure 107/53 L 106/51 L 115/52 L Pulse Oximetry 97 Oxygen Delivery Method Room Air 02/09/25 07:54 02/09/25 13:07 02/09/25 13:14 Temperature 97.9 F Pulse Rate 63 69 Respiratory Rate 17 Blood Pressure 110/61 104/52 L 104/52 L Pulse Oximetry 97 Oxygen Delivery Method Room Air BMI result Body Mass Index 26.4 Labs 02/03/25 08:13 Medications Medications Current Medications Acetaminophen (Acetaminophen 325 Mg Tablet) 650 mg PO Q6H PRN PRN Reason: Headache/Pain, Scale 1-10 Al Hydroxide/Mg Hydroxide (Magnesium Hydrox/Alum Hydrox 30 Ml Oral.Susp) 30 ml PO Q6H PRN PRN Reason: Heartburn/Nausea Benzocaine (Throat Lozenge, Medicated Lozenge) 1 lozenge MUCOUS MEM Q1H PRN PRN Reason: Sore Throat Last Admin: 02/07/25 09:50 Dose: 1 lozenge Clomipramine HCl (Clomipramine Hcl 25 Mg Capsule) 50 mg PO BEDTIME [facility] Last Admin: 02/08/25 20:52 Dose: 50 mg Famotidine (Famotidine 20 Mg Tablet) 20 mg PO DAILY [facility] Last Admin: 02/09/25 08:36 Dose: 20 mg Hydroxyzine HCl (Hydroxyzine Hcl 25 Mg Tablet) 25 mg PO Q6H PRN PRN Reason: mild anxiety Last Admin: 02/07/25 09:50 Dose: 25 mg [place] Carbonate ([place] Carbonate 300 Mg Tablet) 150 mg PO BID [facility] Last Admin: 02/09/25 08:37 Dose: 150 mg Lorazepam (Lorazepam 0.5 Mg Tablet) 0.5 mg PO TID [facility] Last Admin: 02/09/25 15:11 Dose: 0.5 mg Magnesium Hydroxide (Milk Of Magnesia 30 Ml Oral.Susp) 30 ml PO DAILY PRN PRN Reason: Constipation Midodrine (Midodrine Hcl 5 Mg Tablet) 5 mg PO TID@0900,1500,1800 [facility] Last Admin: 02/09/25 13:14 Dose: 5 mg Olanzapine (Olanzapine 2.5 Mg Tablet) 2.5 mg PO TID [facility] Last Admin: 02/09/25 15:11 Dose: 2.5 mg Olanzapine (Olanzapine 2.5 Mg Tablet) 2.5 mg PO BID PRN PRN Reason: severe anxiety Omeprazole (Omeprazole 20 Mg Capsule.Dr) 20 mg PO DAILY@0630 [facility] Last Admin: 02/09/25 05:45 Dose: 20 mg Sertraline HCl (Sertraline Hcl 100 Mg Tablet) 100 mg PO DAILY [facility] Last Admin: 02/09/25 08:35 Dose: 100 mg Trazodone HCl (Trazodone Hcl 50 Mg Tablet) 50 mg PO BEDTIME MRX1 PRN PRN Reason: Insomnia Zolpidem Tartrate (Zolpidem Tartrate 5 Mg Tablet) 5 mg PO BEDTIME [facility] Last Admin: 02/08/25 20:52 Dose: 5 mg Allergies Allergies Allergy/AdvReac Type Severity Reaction Status Date / Time ciprofloxacin (From CIPRO) Allergy Unknown DIARRHEA Verified 01/14/25 15:28 Morpholine Analogues Allergy Unknown Unknown Verified 01/14/25 15:28 amoxicillin Allergy Nausea Verified 01/14/25 15:28 meperidine Allergy Unknown Verified 01/14/25 15:28 pollen extracts Allergy Unknown Verified 01/14/25 15:28 Assessment & Plan Assessment & Plan (1) Panic attacks: Status: Acute Code(s): F41.0 - Panic disorder [episodic paroxysmal anxiety] Plan 02/05: EKG reassuring. start clomipramine 25 mg QHS. continue zyprexa 2.5 TID. 02/06: increase clomipramine to 50 mg starting tomorrow night. add zyhprexa 2.5 mg PRN BID for anxiety. ECT Hx D/W andrzej; Hx is not strongly supportive of its utility for this patient. T/C selegiline or spravato. 02/07 continue tx. 02/08: continue current management and treatment plan. 02/09: continue current management and treatment plan. Reason for continued inpatient stay Substantial Risk for: harm to self, inability to function and rapid decompensation Time Spent With Patient Time: Total time managing care of this patient today ____ minutes.
[2025-02-09 17:09] VITALS: BP 110/53; PULSE 63
[2025-02-09 19:08] VITALS: BP 102/72; PULSE 77; RESP 16; TEMP 36.1; O2SAT 95
[2025-02-10 08:00] VITALS: BP 112/51; PULSE 78; RESP 16; TEMP 36.5; O2SAT 95
[2025-02-10] MEDS: Throat Lozenge, Medicated LOZENGE 1 LOZENGE MUCOUS MEM (08:14)
--- NOTE | 2025-02-10 09:17 | P.PNPSI_ITS ---
Subjective Subjective Reason For Visit: SI Diagnostics Vital Signs (24Hr): Vital Signs - 24 hr 02/09/25 13:07 02/09/25 13:14 02/09/25 17:09 Temperature Pulse Rate 69 63 Respiratory Rate Blood Pressure 104/52 L 104/52 L 110/53 L Pulse Oximetry Oxygen Delivery Method 02/09/25 19:08 02/10/25 08:00 Temperature 97 F 97.7 F Pulse Rate 77 78 Respiratory Rate 16 16 Blood Pressure 102/72 112/51 L Pulse Oximetry 95 95 Oxygen Delivery Method Room Air Room Air BMI result Body Mass Index 26.4 Labs 02/03/25 08:13 Medications Medications Current Medications Acetaminophen (Acetaminophen 325 Mg Tablet) 650 mg PO Q6H PRN PRN Reason: Headache/Pain, Scale 1-10 Al Hydroxide/Mg Hydroxide (Magnesium Hydrox/Alum Hydrox 30 Ml Oral.Susp) 30 ml PO Q6H PRN PRN Reason: Heartburn/Nausea Benzocaine (Throat Lozenge, Medicated Lozenge) 1 lozenge MUCOUS MEM Q1H PRN PRN Reason: Sore Throat Last Admin: 02/10/25 08:14 Dose: 1 lozenge Clomipramine HCl (Clomipramine Hcl 25 Mg Capsule) 50 mg PO BEDTIME [facility] Last Admin: 02/09/25 20:11 Dose: 50 mg Famotidine (Famotidine 20 Mg Tablet) 20 mg PO DAILY [facility] Last Admin: 02/10/25 08:15 Dose: 20 mg Hydroxyzine HCl (Hydroxyzine Hcl 25 Mg Tablet) 25 mg PO Q6H PRN PRN Reason: mild anxiety Last Admin: 02/07/25 09:50 Dose: 25 mg [place] Carbonate ([place] Carbonate 300 Mg Tablet) 150 mg PO BID [facility] Last Admin: 02/10/25 08:14 Dose: 150 mg Lorazepam (Lorazepam 0.5 Mg Tablet) 0.5 mg PO TID [facility] Last Admin: 02/10/25 08:25 Dose: 0.5 mg Magnesium Hydroxide (Milk Of Magnesia 30 Ml Oral.Susp) 30 ml PO DAILY PRN PRN Reason: Constipation Midodrine (Midodrine Hcl 5 Mg Tablet) 5 mg PO TID@0900,1500,1800 [facility] Last Admin: 02/10/25 08:14 Dose: 5 mg Olanzapine (Olanzapine 2.5 Mg Tablet) 2.5 mg PO TID [facility] Last Admin: 02/10/25 08:15 Dose: 2.5 mg Olanzapine (Olanzapine 2.5 Mg Tablet) 2.5 mg PO BID PRN PRN Reason: severe anxiety Omeprazole (Omeprazole 20 Mg Capsule.Dr) 20 mg PO DAILY@0630 [facility] Last Admin: 02/10/25 05:39 Dose: 20 mg Sertraline HCl (Sertraline Hcl 100 Mg Tablet) 100 mg PO DAILY [facility] Last Admin: 02/10/25 08:15 Dose: 100 mg Trazodone HCl (Trazodone Hcl 50 Mg Tablet) 50 mg PO BEDTIME MRX1 PRN PRN Reason: Insomnia Zolpidem Tartrate (Zolpidem Tartrate 5 Mg Tablet) 5 mg PO BEDTIME [facility] Last Admin: 02/09/25 20:11 Dose: 5 mg Allergies Allergies Allergy/AdvReac Type Severity Reaction Status Date / Time ciprofloxacin (From CIPRO) Allergy Unknown DIARRHEA Verified 01/14/25 15:28 Morpholine Analogues Allergy Unknown Unknown Verified 01/14/25 15:28 amoxicillin Allergy Nausea Verified 01/14/25 15:28 meperidine Allergy Unknown Verified 01/14/25 15:28 pollen extracts Allergy Unknown Verified 01/14/25 15:28 Assessment & Plan Assessment & Plan (1) Panic attacks: Status: Acute Code(s): F41.0 - Panic disorder [episodic paroxysmal anxiety] Plan 02/05: EKG reassuring. start clomipramine 25 mg QHS. continue zyprexa 2.5 TID. 02/06: increase clomipramine to 50 mg starting tomorrow night. add zyhprexa 2.5 mg PRN BID for anxiety. ECT Hx D/W andrzej; Hx is not strongly supportive of its utility for this patient. T/C selegiline or spravato. 02/07 continue tx. 02/08: continue current management and treatment plan. 02/09: continue current management and treatment plan. Time Spent With Patient Time: Total time managing care of this patient today ____ minutes.
[2025-02-10 12:57] VITALS: BP 96/54; PULSE 93
--- NOTE | 2025-02-10 12:58 | HO.PSYCHPN ---
Subjective Subjective Date of Service: 02/10/25 Reason For Visit: SI Interim History: in bed, appears anxious, wringing hands. feels current regimen has been helpful for anxiety. does state that the mornings are the most difficult, with anxiety improving as the day wears on. some recent lightheadedness. per staff, eating. taking meds. no depression, anxiety -01/29. had visitors monday. went outside. calm and cooperative. smiling and laughing in group. adjust midodrine times so third dose is given. Mental Status Exam Mental Status Exam Narrative: Appearance: adequate hygiene, appears anxious Behavior: cooperative. psychomotor: PMA of hand-wringing Speech: clear, normal rate/rhythm/volume, spontaneous Thought process: linear Thought content: no signs of psychosis, anxious Mood: anxious Affect: constricted, hyper-intense, non-labile SI: none expressed HI: none expressed VH/AH: none expressed Delusions: none expressed Insight/judgment:fair x 2. Memory/cog: alert, oriented x3. Diagnostics Vital Signs (24Hr): Vital Signs - 24 hr 02/09/25 13:07 02/09/25 13:14 02/09/25 17:09 Temperature Pulse Rate 69 63 Respiratory Rate Blood Pressure 104/52 L 104/52 L 110/53 L Pulse Oximetry Oxygen Delivery Method 02/09/25 19:08 02/10/25 08:00 02/10/25 12:57 Temperature 97 F 97.7 F Pulse Rate 77 78 93 Respiratory Rate 16 16 Blood Pressure 102/72 112/51 L 96/54 L Pulse Oximetry 95 95 Oxygen Delivery Method Room Air Room Air BMI result Body Mass Index 26.4 Labs 02/03/25 08:13 Medications Medications Current Medications Acetaminophen (Acetaminophen 325 Mg Tablet) 650 mg PO Q6H PRN PRN Reason: Headache/Pain, Scale 1-10 Al Hydroxide/Mg Hydroxide (Magnesium Hydrox/Alum Hydrox 30 Ml Oral.Susp) 30 ml PO Q6H PRN PRN Reason: Heartburn/Nausea Benzocaine (Throat Lozenge, Medicated Lozenge) 1 lozenge MUCOUS MEM Q1H PRN PRN Reason: Sore Throat Last Admin: 02/10/25 08:14 Dose: 1 lozenge Clomipramine HCl (Clomipramine Hcl 25 Mg Capsule) 50 mg PO BEDTIME [facility] Last Admin: 02/09/25 20:11 Dose: 50 mg Famotidine (Famotidine 20 Mg Tablet) 20 mg PO DAILY [facility] Last Admin: 02/10/25 08:15 Dose: 20 mg Hydroxyzine HCl (Hydroxyzine Hcl 25 Mg Tablet) 25 mg PO Q6H PRN PRN Reason: mild anxiety Last Admin: 02/07/25 09:50 Dose: 25 mg [place] Carbonate ([place] Carbonate 300 Mg Tablet) 150 mg PO BID [facility] Last Admin: 02/10/25 08:14 Dose: 150 mg Lorazepam (Lorazepam 0.5 Mg Tablet) 0.5 mg PO TID [facility] Last Admin: 02/10/25 08:25 Dose: 0.5 mg Magnesium Hydroxide (Milk Of Magnesia 30 Ml Oral.Susp) 30 ml PO DAILY PRN PRN Reason: Constipation Midodrine (Midodrine Hcl 5 Mg Tablet) 5 mg PO TID@0900,1300,1700 [facility] Olanzapine (Olanzapine 2.5 Mg Tablet) 2.5 mg PO TID [facility] Last Admin: 02/10/25 08:15 Dose: 2.5 mg Olanzapine (Olanzapine 2.5 Mg Tablet) 2.5 mg PO BID PRN PRN Reason: severe anxiety Omeprazole (Omeprazole 20 Mg Capsule.Dr) 20 mg PO DAILY@0630 [facility] Last Admin: 02/10/25 05:39 Dose: 20 mg Sertraline HCl (Sertraline Hcl 100 Mg Tablet) 100 mg PO DAILY [facility] Last Admin: 02/10/25 08:15 Dose: 100 mg Trazodone HCl (Trazodone Hcl 50 Mg Tablet) 50 mg PO BEDTIME MRX1 PRN PRN Reason: Insomnia Zolpidem Tartrate (Zolpidem Tartrate 5 Mg Tablet) 5 mg PO BEDTIME [facility] Last Admin: 02/09/25 20:11 Dose: 5 mg Allergies Allergies Allergy/AdvReac Type Severity Reaction Status Date / Time ciprofloxacin (From CIPRO) Allergy Unknown DIARRHEA Verified 01/14/25 15:28 Morpholine Analogues Allergy Unknown Unknown Verified 01/14/25 15:28 amoxicillin Allergy Nausea Verified 01/14/25 15:28 meperidine Allergy Unknown Verified 01/14/25 15:28 pollen extracts Allergy Unknown Verified 01/14/25 15:28 Assessment & Plan Assessment & Plan (1) Panic attacks: Status: Acute Code(s): F41.0 - Panic disorder [episodic paroxysmal anxiety] Plan 02/05: EKG reassuring. start clomipramine 25 mg QHS. continue zyprexa 2.5 TID. 02/06: increase clomipramine to 50 mg starting tomorrow night. add zyhprexa 2.5 mg PRN BID for anxiety. ECT Hx D/W andrzej; Hx is not strongly supportive of its utility for this patient. T/C selegiline or spravato. 02/07 continue tx. 02/08: continue current management and treatment plan. 02/09: continue current management and treatment plan. 02/10: anxiety improved under current plan. adjust midodrine dosing times so pt gets all three doses - has been going to sleep prior to third dose. otherwise continue current mgmt. some lightheadedness, but BPs stable. Reason for continued inpatient stay Substantial Risk for: harm to self and rapid decompensation Time Spent With Patient Time: Total time managing care of this patient today __25__ minutes.
[2025-02-10 16:59] VITALS: BP 102/66; PULSE 72
[2025-02-10 20:14] VITALS: BP 110/53; PULSE 60; RESP 15; TEMP 36.6; O2SAT 93
[2025-02-11 08:00] VITALS: BP 96/50; PULSE 65; RESP 16; TEMP 36.5; O2SAT 96
[2025-02-11 12:44] VITALS: BP 97/55; PULSE 66
--- NOTE | 2025-02-11 12:56 | HO.PSYCHPN ---
Subjective Subjective Date of Service: 02/11/25 Reason For Visit: SI Interim History: in bed. anxiety improved generally speaking, still bad in the morning, improves as the day wears on. encouraged to use zyprexa PRN. still c/o some wooziness, BPs reviewed, lower than prior. per staff, anxious but getting better. eating. slept 7 hours. flexible affect. Mental Status Exam Mental Status Exam Narrative: Appearance: adequate hygiene, appears anxious Behavior: cooperative. psychomotor: PMA of hand-wringing Speech: clear, normal rate/rhythm/volume, spontaneous Thought process: linear Thought content: no signs of psychosis, anxious Mood: anxious Affect: constricted, hyper-intense, non-labile SI: none expressed HI: none expressed VH/AH: none expressed Delusions: none expressed Insight/judgment:fair x 2. Memory/cog: alert, oriented x3. Diagnostics Vital Signs (24Hr): Vital Signs - 24 hr 02/10/25 12:57 02/10/25 16:59 02/10/25 20:14 Temperature 97.9 F Pulse Rate 93 72 60 Respiratory Rate 15 Blood Pressure 96/54 L 102/66 110/53 L Pulse Oximetry 93 Oxygen Delivery Method Room Air 02/11/25 08:00 02/11/25 12:44 Temperature 97.7 F Pulse Rate 65 66 Respiratory Rate 16 Blood Pressure 96/50 L 97/55 L Pulse Oximetry 96 Oxygen Delivery Method Room Air BMI result Body Mass Index 26.4 Labs 02/03/25 08:13 Medications Medications Current Medications Acetaminophen (Acetaminophen 325 Mg Tablet) 650 mg PO Q6H PRN PRN Reason: Headache/Pain, Scale 1-10 Al Hydroxide/Mg Hydroxide (Magnesium Hydrox/Alum Hydrox 30 Ml Oral.Susp) 30 ml PO Q6H PRN PRN Reason: Heartburn/Nausea Benzocaine (Throat Lozenge, Medicated Lozenge) 1 lozenge MUCOUS MEM Q1H PRN PRN Reason: Sore Throat Last Admin: 02/10/25 08:14 Dose: 1 lozenge Clomipramine HCl (Clomipramine Hcl 25 Mg Capsule) 50 mg PO BEDTIME SAL Last Admin: 02/10/25 20:17 Dose: 50 mg Famotidine (Famotidine 20 Mg Tablet) 20 mg PO DAILY SAL Last Admin: 02/11/25 08:42 Dose: 20 mg Hydroxyzine HCl (Hydroxyzine Hcl 25 Mg Tablet) 25 mg PO Q6H PRN PRN Reason: mild anxiety Last Admin: 02/07/25 09:50 Dose: 25 mg [place] Carbonate ([place] Carbonate 300 Mg Tablet) 150 mg PO BID [facility] Last Admin: 02/11/25 08:40 Dose: 150 mg Lorazepam (Lorazepam 0.5 Mg Tablet) 0.5 mg PO TID [facility] Last Admin: 02/11/25 08:41 Dose: 0.5 mg Magnesium Hydroxide (Milk Of Magnesia 30 Ml Oral.Susp) 30 ml PO DAILY PRN PRN Reason: Constipation Midodrine (Midodrine Hcl 5 Mg Tablet) 5 mg PO TID@0900,1300,1700 [facility] Last Admin: 02/11/25 12:46 Dose: 5 mg Olanzapine (Olanzapine 2.5 Mg Tablet) 2.5 mg PO TID [facility] Last Admin: 02/11/25 08:41 Dose: 2.5 mg Olanzapine (Olanzapine 2.5 Mg Tablet) 2.5 mg PO BID PRN PRN Reason: severe anxiety Omeprazole (Omeprazole 20 Mg Capsule.Dr) 20 mg PO DAILY@0630 [facility] Last Admin: 02/11/25 05:41 Dose: 20 mg Sertraline HCl (Sertraline Hcl 100 Mg Tablet) 100 mg PO DAILY [facility] Last Admin: 02/11/25 08:41 Dose: 100 mg Trazodone HCl (Trazodone Hcl 50 Mg Tablet) 50 mg PO BEDTIME MRX1 PRN PRN Reason: Insomnia Zolpidem Tartrate (Zolpidem Tartrate 5 Mg Tablet) 5 mg PO BEDTIME [facility] Last Admin: 02/10/25 20:17 Dose: 5 mg Allergies Allergies Allergy/AdvReac Type Severity Reaction Status Date / Time ciprofloxacin (From CIPRO) Allergy Unknown DIARRHEA Verified 01/14/25 15:28 Morpholine Analogues Allergy Unknown Unknown Verified 01/14/25 15:28 amoxicillin Allergy Nausea Verified 01/14/25 15:28 meperidine Allergy Unknown Verified 01/14/25 15:28 pollen extracts Allergy Unknown Verified 01/14/25 15:28 Assessment & Plan Assessment & Plan (1) Panic attacks: Status: Acute Code(s): F41.0 - Panic disorder [episodic paroxysmal anxiety] Plan 02/05: EKG reassuring. start clomipramine 25 mg QHS. continue zyprexa 2.5 TID. 02/06: increase clomipramine to 50 mg starting tomorrow night. add zyhprexa 2.5 mg PRN BID for anxiety. ECT Hx D/W andrzej; Hx is not strongly supportive of its utility for this patient. T/C selegiline or spravato. 02/07 continue tx. 02/08: continue current management and treatment plan. 02/09: continue current management and treatment plan. 02/10: anxiety improved under current plan. adjust midodrine dosing times so pt gets all three doses - has been going to sleep prior to third dose. otherwise continue current mgmt. some lightheadedness, but BPs stable. 02/11: BPs lower than prior. hospitalist requested to review BPs and midodrine regimen in light of restarting clomipramine and increase c/o wooziness. anxiety improved since admission, but clearly remains very substantial. Reason for continued inpatient stay Substantial Risk for: inability to function and rapid decompensation Time Spent With Patient Time: Total time managing care of this patient today __25__ minutes.
--- NOTE | 2025-02-11 13:07 | HO.PM.IMPN ---
Subjective Subjective Date of Service: 02/11/25 Interval History: Patient reports that he feels occasionally dizzy, denies any dizziness when lying down going to a sitting position. Reports occasional dizziness when going from a sitting to standing position. Denies any shortness of breath or chest pain. No edema. Denies any palpitations. Blood pressure reviewed have been going to low 100s to 50s to 60s. Patient continues on midodrine t.i.d. which he has been consistently getting. No recent falls Review of Systems Denies any shortness of breath, chest pain, dizziness, lightheadedness, abdominal pain or discomfort, nausea vomiting or diarrhea Physical Exam Exam: Exam: CONST: Alert and oriented, in NAD. Well nourished HEENT: Normocephalic, atraumatic, MMM, Eyes clear, Neck supple RESP: Lungs clear, RRR even and regular HEART:,RRR, S1, S2. No edema GI:Abdomen Soft NT, ND. + BS times four :Deferred SKIN: Warm dry and intact, no visible lesions or rashes NEURO:CN II-XII Intact bilaterally, Sensation intact. Speech clear. Ambulating with steady gait PSYCH: Normal affect Vital Signs: Vital Signs: Last Vital Signs Temp 97.7 F 02/11/25 08:00 Pulse 66 02/11/25 12:44 Resp 16 02/11/25 08:00 BP 97/55 L 02/11/25 12:44 Pulse Ox 96 02/11/25 08:00 O2 Del Method Room Air 02/11/25 08:00 BMI result Body Mass Index 26.4 Objective Data Active Medications Acetaminophen (Acetaminophen 325 Mg Tablet) 650 mg PO Q6H PRN PRN Reason: Headache/Pain, Scale 1-10 Al Hydroxide/Mg Hydroxide (Magnesium Hydrox/Alum Hydrox 30 Ml Oral.Susp) 30 ml PO Q6H PRN PRN Reason: Heartburn/Nausea Benzocaine (Throat Lozenge, Medicated Lozenge) 1 lozenge MUCOUS MEM Q1H PRN PRN Reason: Sore Throat Last Admin: 02/10/25 08:14 Dose: 1 lozenge Documented By: VANESSA Clomipramine HCl (Clomipramine Hcl 25 Mg Capsule) 50 mg PO BEDTIME SAL Last Admin: 02/10/25 20:17 Dose: 50 mg Documented By: MATEO Famotidine (Famotidine 20 Mg Tablet) 20 mg PO DAILY [facility] Last Admin: 02/11/25 08:42 Dose: 20 mg Documented By: VANESSA Hydroxyzine HCl (Hydroxyzine Hcl 25 Mg Tablet) 25 mg PO Q6H PRN PRN Reason: mild anxiety Last Admin: 02/07/25 09:50 Dose: 25 mg Documented By: MELANIE [place] Carbonate ([place] Carbonate 300 Mg Tablet) 150 mg PO BID [facility] Last Admin: 02/11/25 08:40 Dose: 150 mg Documented By: VANESSA Lorazepam (Lorazepam 0.5 Mg Tablet) 0.5 mg PO TID [facility] Last Admin: 02/11/25 08:41 Dose: 0.5 mg Documented By: VANESSA Magnesium Hydroxide (Milk Of Magnesia 30 Ml Oral.Susp) 30 ml PO DAILY PRN PRN Reason: Constipation Midodrine (Midodrine Hcl 5 Mg Tablet) 5 mg PO TID@0900,1300,1700 [facility] Last Admin: 02/11/25 12:46 Dose: 5 mg Documented By: VANESSA Olanzapine (Olanzapine 2.5 Mg Tablet) 2.5 mg PO TID [facility] Last Admin: 02/11/25 08:41 Dose: 2.5 mg Documented By: VANESSA Olanzapine (Olanzapine 2.5 Mg Tablet) 2.5 mg PO BID PRN PRN Reason: severe anxiety Omeprazole (Omeprazole 20 Mg Capsule.Dr) 20 mg PO DAILY@0630 [facility] Last Admin: 02/11/25 05:41 Dose: 20 mg Documented By: MATEO Sertraline HCl (Sertraline Hcl 100 Mg Tablet) 100 mg PO DAILY [facility] Last Admin: 02/11/25 08:41 Dose: 100 mg Documented By: VANESSA Trazodone HCl (Trazodone Hcl 50 Mg Tablet) 50 mg PO BEDTIME MRX1 PRN PRN Reason: Insomnia Zolpidem Tartrate (Zolpidem Tartrate 5 Mg Tablet) 5 mg PO BEDTIME [facility] Last Admin: 02/10/25 20:17 Dose: 5 mg Documented By: MATEO Labs 02/03/25 08:13 Assessment and Plan (1) Orthostatic hypotension: Status: Inactive Plan Depression/suicidal ideation Continue treatment plan per Psychiatry Orthostatic hypotension Possibly likely related to medications. Psych following, restarted clomipramine. Recommend avoiding any sedative meds Last EKG with normal sinus rhythm. Check ECHO to rule out HF as a cause Midodrine 5 mg t.i.d. Random cortisol level. Thank you for allowing me to participate in the care of this patient. Will follow as needed, please notify medical provider with any changes in condition or concerns. Quality Stroke Does the patient have a stroke diagnosis?: No VTE Prior VTE?: No VTE Risk Level:: Medical - low VTE Device Contraindication: Treatment Not Indicated VTE Drug Contraindication: Treatment Not Indicated
[2025-02-11 16:29] VITALS: BP 108/66; PULSE 72
[2025-02-11 19:38] VITALS: BP 125/58; PULSE 72; RESP 16; TEMP 36.6; O2SAT 94
--- NOTE | 2025-02-12 07:00 | CA_ITS ---
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 The visually estimated ejection fraction is between 55-60%. - Mildly increased right ventricular cavity size. There is normal right ventricular systolic function. Findings Left Ventricle Normal left ventricular size, thickness, systolic function, and wall motion. The visually estimated ejection fraction is between 55-60%. Abnormal diastolic function is noted. Spectral Doppler is indicative of an impaired relaxation filling pattern. E/E prime ratio is between 8 and 15 consistent with indeterminate filling pressures. Right Ventricle Mildly increased right ventricular cavity size. There is normal right ventricular systolic function. Atria The left atrium is likely dilated. The right atrium is mildly dilated. Aortic Valve Normal aortic valve structure and function. There is no aortic valve stenosis. There is no aortic valve regurgitation. Mitral Valve The mitral valve appears normal. There is no mitral valve regurgitation. There is no mitral valve stenosis. Pulmonic Valve The pulmonic valve is normal. There is trace pulmonic valve regurgitation. Tricuspid Valve Normal tricuspid valve structure. There is mild tricuspid valve regurgitation. Normal right atrial pressure. There is no evidence of pulmonary hypertension. Great Vessels All visible segments of the aorta are normal in size. Venous The inferior vena cava is normal in size and collapses greater than 50% with inspiration. Pericardium/Pleural There is no evidence of pericardial effusion. Prior Study Comparison No prior study available for comparison. Measurements 2D Linear Measurements IVSd: 0.87 0.6-0.9/0.6-1.0 cm LVIDd: 4.00 3.9-5.3/4.2-5.9 cm LVIDd Index: 2.34 2.4-3.2/2.2-3.1 cm/m2 LVIDs: 2.96 2.0-3.6 cm LVPWd: 0.86 0.7-1.1 cm LA Diam: 3.20 2.7-3.8/3.0-4.0 cm LAIDs Index: 1.87 1.5-2.3 cm/m2 LV Mass: 128.48 67-162/88-224 g LV Mass Index: 75.14 43-95/49-115 g/m2 LVOT Diam: 1.80 3.0+(-)1.3 cm 2D Volumes RA ESV A/L: 31.10 19-21 ML/M2 2D Systolic Function EF 4C: 54.40 >55% EF 2C: 71.50 >55% EF BiP: 63.90 >55% Mitral Valve MV Pk E: 0.53 MV PK A: 0.88 MV Decel Time: 204.00 E/A: 0.60 E'Lateral: 4.03 E'Medial: 4.03 E/E' Med: 13.10 E/E' Lat: 13.10 PHT: 60.00 MVA PHT: 3.67 [address] [place]: 2.59 Aortic Valve AoV Pk Chad: 1.64 AoV Mn Chad: 1.01 AoV VTI: 0.36 AoV Pk Grad: 11.00 Aov Mn Grad: 5.00 KARISSA Cont.VTI: 1.55 LVOT LVOT Pk Chad: 1.02 LVOT Mn Chad: 0.69 LVOT VTI: 0.22 LVOT Pk Grad: 4.00 LVOT Mn Grad: 2.00 LVOT Diam: 1.80 LVOT Area: 2.54 Diastolic Function MV Pk E: 0.53 MV Pk A: 0.88 E/A: 0.60 E'Medial: 4.03 E/E' Med: 13.10 E' Laterial: 4.03 E/E' Lat: 13.10 Right Ventricle TAPSE (mm): 23.00 TVS' Chad: 11.20 Tricuspid Valve TR Pk Chad: 2.24 TR Pk Grad: 20.00 RA Press: 3.00 RVSP: 23.00 Great Vessels Aorta Sinus of Valsalva: 2.70 2.0-3.5 cm Ao Asc: 3.10 2.1-3.4 cm Pulmonary Valve PV Pk Chad: 1.23 Peak PV Grad: 6.00 Updated in Other Vendor System with Status of Final Jl Padilla MD electronically signed on 02/12/2025 8:06:02 PM with status of Final
[2025-02-12 09:58] VITALS: BP 112/52; PULSE 74; RESP 18; TEMP 36.7; O2SAT 96
[2025-02-12 13:10] VITALS: BP 91/48; PULSE 65
--- NOTE | 2025-02-12 13:58 | P.PNPSI_ITS ---
Subjective Subjective Date of Service: 02/12/25 Reason For Visit: SI Interim History: in bed, anxious appearing. pleasant and cooperative, however. discuss recommendation for echocardiogram and that midodrine dosing has been kept stable. discuss benzo regimen, agrees to changes. per staff, less anxious, more visible. brighter. Mental Status Exam Mental Status Exam Narrative: Appearance: adequate hygiene, appears anxious Behavior: cooperative. psychomotor: PMA of hand-wringing Speech: clear, normal rate/rhythm/volume, spontaneous Thought process: linear Thought content: no signs of psychosis, anxious Mood: anxious Affect: constricted, hyper-intense, non-labile SI: none expressed HI: none expressed VH/AH: none expressed Delusions: none expressed Insight/judgment:fair x 2. Memory/cog: alert, oriented x3. Diagnostics Vital Signs (24Hr): Vital Signs - 24 hr 02/11/25 16:29 02/11/25 19:38 02/12/25 09:58 Temperature 97.8 F 98.1 F Pulse Rate 72 72 74 Respiratory Rate 16 18 Blood Pressure 108/66 125/58 L 112/52 L Pulse Oximetry 94 96 Oxygen Delivery Method Room Air Room Air 02/12/25 13:10 Temperature Pulse Rate 65 Respiratory Rate Blood Pressure 91/48 L Pulse Oximetry Oxygen Delivery Method BMI result Body Mass Index 26.4 Labs 02/03/25 08:13 Labs: Laboratory Results - last 48 hr 02/11/25 15:56 Random Cortisol 7.6 Medications Medications Current Medications Acetaminophen (Acetaminophen 325 Mg Tablet) 650 mg PO Q6H PRN PRN Reason: Headache/Pain, Scale 1-10 Al Hydroxide/Mg Hydroxide (Magnesium Hydrox/Alum Hydrox 30 Ml Oral.Susp) 30 ml PO Q6H PRN PRN Reason: Heartburn/Nausea Benzocaine (Throat Lozenge, Medicated Lozenge) 1 lozenge MUCOUS MEM Q1H PRN PRN Reason: Sore Throat Last Admin: 02/10/25 08:14 Dose: 1 lozenge Clomipramine HCl (Clomipramine Hcl 25 Mg Capsule) 50 mg PO BEDTIME SAL Last Admin: 02/11/25 19:41 Dose: 50 mg Clonazepam (Clonazepam Odt 0.5 Mg Tab.Rapdis) 0.5 mg PO BID SAL Famotidine (Famotidine 20 Mg Tablet) 20 mg PO DAILY SAL Last Admin: 02/12/25 09:59 Dose: 20 mg Hydroxyzine HCl (Hydroxyzine Hcl 25 Mg Tablet) 25 mg PO Q6H PRN PRN Reason: mild anxiety Last Admin: 02/07/25 09:50 Dose: 25 mg [place] Carbonate ([place] Carbonate 300 Mg Tablet) 150 mg PO BID [facility] Last Admin: 02/12/25 09:59 Dose: 150 mg Lorazepam (Lorazepam 0.5 Mg Tablet) 0.5 mg PO ONCE ONE Stop: 02/12/25 15:01 Magnesium Hydroxide (Milk Of Magnesia 30 Ml Oral.Susp) 30 ml PO DAILY PRN PRN Reason: Constipation Midodrine (Midodrine Hcl 5 Mg Tablet) 5 mg PO TID@0900,1300,1700 [facility] Last Admin: 02/12/25 13:12 Dose: 5 mg Olanzapine (Olanzapine 2.5 Mg Tablet) 2.5 mg PO TID [facility] Last Admin: 02/12/25 09:59 Dose: 2.5 mg Olanzapine (Olanzapine 2.5 Mg Tablet) 2.5 mg PO BID PRN PRN Reason: severe anxiety Omeprazole (Omeprazole 20 Mg Capsule.Dr) 20 mg PO DAILY@0630 [facility] Last Admin: 02/12/25 05:38 Dose: 20 mg Sertraline HCl (Sertraline Hcl 100 Mg Tablet) 100 mg PO DAILY [facility] Last Admin: 02/12/25 10:00 Dose: 100 mg Trazodone HCl (Trazodone Hcl 50 Mg Tablet) 50 mg PO BEDTIME MRX1 PRN PRN Reason: Insomnia Zolpidem Tartrate (Zolpidem Tartrate 5 Mg Tablet) 5 mg PO BEDTIME [facility] Last Admin: 02/11/25 19:41 Dose: 5 mg Allergies Allergies Allergy/AdvReac Type Severity Reaction Status Date / Time ciprofloxacin (From CIPRO) Allergy Unknown DIARRHEA Verified 01/14/25 15:28 Morpholine Analogues Allergy Unknown Unknown Verified 01/14/25 15:28 amoxicillin Allergy Nausea Verified 01/14/25 15:28 meperidine Allergy Unknown Verified 01/14/25 15:28 pollen extracts Allergy Unknown Verified 01/14/25 15:28 Assessment & Plan Assessment & Plan (1) Orthostatic hypotension: Status: Inactive Code(s): I95.1 - Orthostatic hypotension Assessment and Plan: Orthostatic hypotension Possibly likely related to medications. Psych following, restarted clomipramine. Recommend avoiding any sedative meds Last EKG with normal sinus rhythm. Check ECHO to rule out HF as a cause Midodrine 5 mg t.i.d. Random cortisol level. 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 start clomipramine 25 mg QHS. continue zyprexa 2.5 TID. 02/06: increase clomipramine to 50 mg starting tomorrow night. add zyhprexa 2.5 mg PRN BID for anxiety. ECT Hx D/W andrzej; Hx is not strongly supportive of its utility for this patient. T/C selegiline or spravato. 02/07 continue tx. 02/08: continue current management and treatment plan. 02/09: continue current management and treatment plan. 02/10: anxiety improved under current plan. adjust midodrine dosing times so pt gets all three doses - has been going to sleep prior to third dose. otherwise continue current mgmt. some lightheadedness, but BPs stable. 02/11: BPs lower than prior. hospitalist requested to review BPs and midodrine regimen in light of restarting clomipramine and increase c/o wooziness. anxiety improved since admission, but clearly remains very substantial. 02/12: medical plan for cortisol and echo reviewed. midodrine stays at 5 TID. DC ativan and start klonopin 0.54 BID for ease of administration for long-term outpatient use. will need PA for clomipramine prior to discharge. anxiety remains improved, appears less anxious, more visible, and more affectively expressive to staff. continue current mgmt. Reason for continued inpatient stay Substantial Risk for: harm to self, inability to function and rapid decompensation Time Spent With Patient Time: Total time managing care of this patient today __25__ minutes.
[2025-02-12 16:10] VITALS: BP 101/51; PULSE 62
[2025-02-12 20:40] VITALS: BP 103/51; PULSE 61; RESP 16; TEMP 36.1; O2SAT 95
[2025-02-12] MEDS: clonazePAM ODT 0.5 MG TAB.RAPDIS PO (20:43)
[2025-02-13 08:46] VITALS: BP 97/66; PULSE 100; RESP 18; O2SAT 97
[2025-02-13] MEDS: clonazePAM ODT 0.5 MG TAB.RAPDIS PO ×2 (08:48→19:29)
[2025-02-13 10:30] VITALS: BMI 26.9
[2025-02-13 13:06] VITALS: BP 96/52; PULSE 70; TEMP 35.8
--- NOTE | 2025-02-13 15:12 | HO.PSYCHPN ---
Subjective Subjective Date of Service: 02/13/25 Reason For Visit: SI Interim History: anxious. feels current regimen helpful however. no requests or complaints otherwise today. Mental Status Exam Mental Status Exam Narrative: Appearance: adequate hygiene, appears anxious Behavior: cooperative. psychomotor: PMA of hand-wringing Speech: clear, normal rate/rhythm/volume, spontaneous Thought process: linear Thought content: no signs of psychosis, anxious Mood: anxious Affect: constricted, hyper-intense, non-labile SI: none expressed HI: none expressed VH/AH: none expressed Delusions: none expressed Insight/judgment:fair x 2. Memory/cog: alert, oriented x3. Diagnostics Vital Signs (24Hr): Vital Signs - 24 hr 02/12/25 16:10 02/12/25 20:40 02/13/25 08:46 Temperature 97.0 F Pulse Rate 62 61 100 Respiratory Rate 16 18 Blood Pressure 101/51 L 103/51 L 97/66 Pulse Oximetry 95 97 Oxygen Delivery Method Room Air Room Air 02/13/25 13:06 Temperature 96.5 F L Pulse Rate 70 Respiratory Rate Blood Pressure 96/52 L Pulse Oximetry Oxygen Delivery Method BMI result Body Mass Index 26.9 Labs 02/03/25 08:13 Labs: Laboratory Results - last 48 hr 02/11/25 15:56 Random Cortisol 7.6 Medications Medications Current Medications Acetaminophen (Acetaminophen 325 Mg Tablet) 650 mg PO Q6H PRN PRN Reason: Headache/Pain, Scale 1-10 Al Hydroxide/Mg Hydroxide (Magnesium Hydrox/Alum Hydrox 30 Ml Oral.Susp) 30 ml PO Q6H PRN PRN Reason: Heartburn/Nausea Benzocaine (Throat Lozenge, Medicated Lozenge) 1 lozenge MUCOUS MEM Q1H PRN PRN Reason: Sore Throat Last Admin: 02/10/25 08:14 Dose: 1 lozenge Clomipramine HCl (Clomipramine Hcl 25 Mg Capsule) 50 mg PO BEDTIME [facility] Last Admin: 02/12/25 20:43 Dose: 50 mg Clonazepam (Clonazepam Odt 0.5 Mg Tab.Rapdis) 0.5 mg PO BID SAL Last Admin: 02/13/25 08:48 Dose: 0.5 mg Famotidine (Famotidine 20 Mg Tablet) 20 mg PO DAILY [facility] Last Admin: 02/13/25 08:48 Dose: 20 mg Hydroxyzine HCl (Hydroxyzine Hcl 25 Mg Tablet) 25 mg PO Q6H PRN PRN Reason: mild anxiety Last Admin: 02/07/25 09:50 Dose: 25 mg [place] Carbonate ([place] Carbonate 300 Mg Tablet) 150 mg PO BID [facility] Last Admin: 02/13/25 08:47 Dose: 150 mg Magnesium Hydroxide (Milk Of Magnesia 30 Ml Oral.Susp) 30 ml PO DAILY PRN PRN Reason: Constipation Midodrine (Midodrine Hcl 5 Mg Tablet) 5 mg PO TID@0900,1300,1700 [facility] Last Admin: 02/13/25 13:18 Dose: 5 mg Olanzapine (Olanzapine 2.5 Mg Tablet) 2.5 mg PO TID [facility] Last Admin: 02/13/25 14:50 Dose: 2.5 mg Olanzapine (Olanzapine 2.5 Mg Tablet) 2.5 mg PO BID PRN PRN Reason: severe anxiety Omeprazole (Omeprazole 20 Mg Capsule.Dr) 20 mg PO DAILY@0630 [facility] Last Admin: 02/13/25 05:31 Dose: 20 mg Sertraline HCl (Sertraline Hcl 100 Mg Tablet) 100 mg PO DAILY [facility] Last Admin: 02/13/25 08:48 Dose: 100 mg Trazodone HCl (Trazodone Hcl 50 Mg Tablet) 50 mg PO BEDTIME MRX1 PRN PRN Reason: Insomnia Zolpidem Tartrate (Zolpidem Tartrate 5 Mg Tablet) 5 mg PO BEDTIME [facility] Last Admin: 02/12/25 20:43 Dose: 5 mg Allergies Allergies Allergy/AdvReac Type Severity Reaction Status Date / Time ciprofloxacin (From CIPRO) Allergy Unknown DIARRHEA Verified 01/14/25 15:28 Morpholine Analogues Allergy Unknown Unknown Verified 01/14/25 15:28 amoxicillin Allergy Nausea Verified 01/14/25 15:28 meperidine Allergy Unknown Verified 01/14/25 15:28 pollen extracts Allergy Unknown Verified 01/14/25 15:28 Assessment & Plan Assessment & Plan (1) Orthostatic hypotension: Status: Inactive Code(s): I95.1 - Orthostatic hypotension Assessment and Plan: Orthostatic hypotension Possibly likely related to medications. Psych following, restarted clomipramine. Recommend avoiding any sedative meds Last EKG with normal sinus rhythm. Check ECHO to rule out HF as a cause Midodrine 5 mg t.i.d. Random cortisol level. 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 start clomipramine 25 mg QHS. continue zyprexa 2.5 TID. 02/06: increase clomipramine to 50 mg starting tomorrow night. add zyhprexa 2.5 mg PRN BID for anxiety. ECT Hx D/W andrzej; Hx is not strongly supportive of its utility for this patient. T/C selegiline or spravato. 02/07 continue tx. 02/08: continue current management and treatment plan. 02/09: continue current management and treatment plan. 02/10: anxiety improved under current plan. adjust midodrine dosing times so pt gets all three doses - has been going to sleep prior to third dose. otherwise continue current mgmt. some lightheadedness, but BPs stable. 02/11: BPs lower than prior. hospitalist requested to review BPs and midodrine regimen in light of restarting clomipramine and increase c/o wooziness. anxiety improved since admission, but clearly remains very substantial. 02/12: medical plan for cortisol and echo reviewed. midodrine stays at 5 TID. DC ativan and start klonopin 0.54 BID for ease of administration for long-term outpatient use. will need PA for clomipramine prior to discharge. anxiety remains improved, appears less anxious, more visible, and more affectively expressive to staff. continue current mgmt. 02/13: anxious but improved. continue current mgmt. Reason for continued inpatient stay Substantial Risk for: inability to function and rapid decompensation Time Spent With Patient Time: Total time managing care of this patient today ____ minutes.
[2025-02-13 16:18] VITALS: BP 106/51; PULSE 64
[2025-02-13 19:26] VITALS: BP 140/62; PULSE 64; RESP 16; TEMP 36.3; O2SAT 97
[2025-02-14 08:53] VITALS: BP 99/50; PULSE 74; RESP 18; TEMP 35.5
[2025-02-14] MEDS: clonazePAM ODT 0.5 MG TAB.RAPDIS PO ×2 (08:56→20:52)
--- NOTE | 2025-02-14 09:23 | HO.PM.IMPN ---
Subjective Subjective Date of Service: 02/14/25 Interval History: Patient is seen for follow up hypotension and hyperlipidemia. Echo that was performed was within normal limits. Cortisol level negative. Patient is still reporting occasional dizziness. Blood pressures reviewed day continuing to be low 90-100s over 50s. Denies any chest pain, shortness of breath or any other concerning symptoms. Patient's cholesterol also noted to be elevated. Review of Systems Denies any shortness of breath, chest pain, + dizziness. no abdominal pain or discomfort, nausea vomiting or diarrhea Physical Exam Exam: Exam: CONST: Alert and oriented, in NAD. Well nourished HEENT: Normocephalic, atraumatic, MMM, Eyes clear, Neck supple RESP: Lungs clear, RRR even and regular HEART:,RRR, S1, S2. No edema GI:Abdomen Soft NT, ND. + BS times four :Deferred SKIN: Warm dry and intact, no visible lesions or rashes NEURO:CN II-XII Intact bilaterally, Sensation intact. Speech clear. Ambulating with steady gait PSYCH: Normal affect Vital Signs: Vital Signs: Last Vital Signs Temp 96 F L 02/14/25 08:53 Pulse 74 02/14/25 08:53 Resp 18 02/14/25 08:53 BP 99/50 L 02/14/25 08:53 Pulse Ox 97 02/13/25 19:26 O2 Del Method Room Air 02/14/25 08:53 BMI result Body Mass Index 26.9 Objective Data Active Medications Acetaminophen (Acetaminophen 325 Mg Tablet) 650 mg PO Q6H PRN PRN Reason: Headache/Pain, Scale 1-10 Al Hydroxide/Mg Hydroxide (Magnesium Hydrox/Alum Hydrox 30 Ml Oral.Susp) 30 ml PO Q6H PRN PRN Reason: Heartburn/Nausea Benzocaine (Throat Lozenge, Medicated Lozenge) 1 lozenge MUCOUS MEM Q1H PRN PRN Reason: Sore Throat Last Admin: 02/10/25 08:14 Dose: 1 lozenge Documented By: VANESSA Clomipramine HCl (Clomipramine Hcl 25 Mg Capsule) 50 mg PO BEDTIME [facility] Last Admin: 02/13/25 19:30 Dose: 50 mg Documented By: MATEO Clonazepam (Clonazepam Odt 0.5 Mg Tab.Rapdis) 0.5 mg PO BID [facility] Last Admin: 02/14/25 08:56 Dose: 0.5 mg Documented By: MUSA Famotidine (Famotidine 20 Mg Tablet) 20 mg PO DAILY [facility] Last Admin: 02/14/25 08:56 Dose: 20 mg Documented By: MUSA Hydroxyzine HCl (Hydroxyzine Hcl 25 Mg Tablet) 25 mg PO Q6H PRN PRN Reason: mild anxiety Last Admin: 02/07/25 09:50 Dose: 25 mg Documented By: KENDELLFAAlma [place] Carbonate ([place] Carbonate 300 Mg Tablet) 150 mg PO BID [facility] Last Admin: 02/14/25 08:56 Dose: 150 mg Documented By: MUSA Magnesium Hydroxide (Milk Of Magnesia 30 Ml Oral.Susp) 30 ml PO DAILY PRN PRN Reason: Constipation Midodrine (Midodrine Hcl 5 Mg Tablet) 5 mg PO TID@0900,1300,1700 [facility] Last Admin: 02/14/25 08:55 Dose: 5 mg Documented By: MUSA Olanzapine (Olanzapine 2.5 Mg Tablet) 2.5 mg PO TID [facility] Last Admin: 02/14/25 08:56 Dose: 2.5 mg Documented By: MUSA Olanzapine (Olanzapine 2.5 Mg Tablet) 2.5 mg PO BID PRN PRN Reason: severe anxiety Omeprazole (Omeprazole 20 Mg Capsule.Dr) 20 mg PO DAILY@0630 [facility] Last Admin: 02/14/25 05:30 Dose: 20 mg Documented By: MATEO Sertraline HCl (Sertraline Hcl 100 Mg Tablet) 100 mg PO DAILY [facility] Last Admin: 02/14/25 08:56 Dose: 100 mg Documented By: MUSA Trazodone HCl (Trazodone Hcl 50 Mg Tablet) 50 mg PO BEDTIME MRX1 PRN PRN Reason: Insomnia Zolpidem Tartrate (Zolpidem Tartrate 5 Mg Tablet) 5 mg PO BEDTIME [facility] Last Admin: 02/13/25 19:29 Dose: 5 mg Documented By: MATEO Labs 02/03/25 08:13 Assessment and Plan (1) Orthostatic hypotension: Status: Inactive Plan Depression/suicidal ideation Continue treatment plan per Psychiatry Orthostatic hypotension Recommend avoiding any sedative meds Last EKG with normal sinus rhythm. ECHO WNL, Cortisol level normal. Increase Midodrine to 10 mg t.i.d Hyperlipidemia Current ASCVD risk 18.2% We will start atorvastatin 10 mg at HS Baseline liver panel prior to initiation Thank you for allowing me to participate in the care of this patient. Will follow as needed, please notify medical provider with any changes in condition or concerns. Quality Stroke Does the patient have a stroke diagnosis?: No VTE Prior VTE?: No VTE Risk Level:: Medical - low VTE Device Contraindication: Treatment Not Indicated VTE Drug Contraindication: Treatment Not Indicated
[2025-02-14 14:17] LABS: Alanine Aminotransferase 22 U/L (0-40); Albumin Level 3.7 g/dL (3.5-5.0); Alkaline Phosphatase 110 U/L (39-117); Anion Gap 10 (12-20); Aspartate Amino Transferase 30 U/L (5-37); Blood Urea Nitrogen 12 mg/dL (9-16); Calcium 9.0 mg/dL (8.4-10.2); Carbon Dioxide 26 mmol/L (22-29); Chloride 111 mmol/L (96-108); Creatinine Clr Calc Pharmacy 75.2; Estimated Glomerular Filt Rate > 60; Potassium 4.2 mmol/L (3.3-5.1); Sodium 143 mmol/L (135-145); Total Protein 6.1 g/dL (6.5-8.0)
[2025-02-14 14:46] VITALS: BP 102/57
--- NOTE | 2025-02-14 15:25 | HO.PSYCHPN ---
Subjective Subjective Date of Service: 02/14/25 Reason For Visit: SI Interim History: appearing slightly less anxious, less hand-wringing. states echocardiogram was WNL, about which he is relieved. states he is anxious at the time of the interview, agrees to seek out PRN of zyprexa. Mental Status Exam Mental Status Exam Narrative: Appearance: adequate hygiene, appears anxious Behavior: cooperative. psychomotor: less PMA of hand-wringing Speech: clear, normal rate/rhythm/volume, spontaneous Thought process: linear Thought content: no signs of psychosis, anxious Mood: anxious Affect: constricted, hyper-intense, non-labile SI: none expressed HI: none expressed VH/AH: none expressed Delusions: none expressed Insight/judgment:fair x 2. Memory/cog: alert, oriented x3. Diagnostics Vital Signs (24Hr): Vital Signs - 24 hr 02/13/25 16:18 02/13/25 19:26 02/14/25 08:53 Temperature 97.4 F 96 F L Pulse Rate 64 64 74 Respiratory Rate 16 18 Blood Pressure 106/51 L 140/62 H 99/50 L Pulse Oximetry 97 Oxygen Delivery Method Room Air Room Air 02/14/25 14:46 Temperature Pulse Rate Respiratory Rate Blood Pressure 102/57 L Pulse Oximetry Oxygen Delivery Method BMI result Body Mass Index 26.9 Labs 02/14/25 13:37 Labs: Laboratory Results - last 48 hr 02/14/25 13:37 Sodium 143 Potassium 4.2 Chloride 111 H Carbon Dioxide 26 Anion Gap 10 L BUN 12 Creatinine 0.74 Estim Creat Clear Calc 75.2 Estimated GFR > 60 Random Glucose 95 Calcium 9.0 Total Bilirubin 0.2 AST 30 ALT 22 Alkaline Phosphatase 110 Total Protein 6.1 L Albumin 3.7 Medications Medications Current Medications Acetaminophen (Acetaminophen 325 Mg Tablet) 650 mg PO Q6H PRN PRN Reason: Headache/Pain, Scale 1-10 Al Hydroxide/Mg Hydroxide (Magnesium Hydrox/Alum Hydrox 30 Ml Oral.Susp) 30 ml PO Q6H PRN PRN Reason: Heartburn/Nausea Atorvastatin Calcium (Atorvastatin Calcium 10 Mg Tablet) 10 mg PO BEDTIME SAL Benzocaine (Throat Lozenge, Medicated Lozenge) 1 lozenge MUCOUS MEM Q1H PRN PRN Reason: Sore Throat Last Admin: 02/10/25 08:14 Dose: 1 lozenge Clomipramine HCl (Clomipramine Hcl 25 Mg Capsule) 50 mg PO BEDTIME [facility] Last Admin: 02/13/25 19:30 Dose: 50 mg Clonazepam (Clonazepam Odt 0.5 Mg Tab.Rapdis) 0.5 mg PO BID [facility] Last Admin: 02/14/25 08:56 Dose: 0.5 mg Famotidine (Famotidine 20 Mg Tablet) 20 mg PO DAILY [facility] Last Admin: 02/14/25 08:56 Dose: 20 mg Hydroxyzine HCl (Hydroxyzine Hcl 25 Mg Tablet) 25 mg PO Q6H PRN PRN Reason: mild anxiety Last Admin: 02/07/25 09:50 Dose: 25 mg [place] Carbonate ([place] Carbonate 300 Mg Tablet) 150 mg PO BID [facility] Last Admin: 02/14/25 08:56 Dose: 150 mg Magnesium Hydroxide (Milk Of Magnesia 30 Ml Oral.Susp) 30 ml PO DAILY PRN PRN Reason: Constipation Midodrine (Midodrine Hcl 10 Mg Tablet) 10 mg PO TID@0900,1300,1700 [facility] Last Admin: 02/14/25 14:46 Dose: 10 mg Olanzapine (Olanzapine 2.5 Mg Tablet) 2.5 mg PO TID [facility] Last Admin: 02/14/25 14:45 Dose: 2.5 mg Olanzapine (Olanzapine 2.5 Mg Tablet) 2.5 mg PO BID PRN PRN Reason: severe anxiety Last Admin: 02/14/25 12:30 Dose: 2.5 mg Omeprazole (Omeprazole 20 Mg Capsule.Dr) 20 mg PO DAILY@0630 [facility] Last Admin: 02/14/25 05:30 Dose: 20 mg Sertraline HCl (Sertraline Hcl 100 Mg Tablet) 100 mg PO DAILY [facility] Last Admin: 02/14/25 08:56 Dose: 100 mg Trazodone HCl (Trazodone Hcl 50 Mg Tablet) 50 mg PO BEDTIME MRX1 PRN PRN Reason: Insomnia Zolpidem Tartrate (Zolpidem Tartrate 5 Mg Tablet) 5 mg PO BEDTIME [facility] Last Admin: 02/13/25 19:29 Dose: 5 mg Allergies Allergies Allergy/AdvReac Type Severity Reaction Status Date / Time ciprofloxacin (From CIPRO) Allergy Unknown DIARRHEA Verified 01/14/25 15:28 Morpholine Analogues Allergy Unknown Unknown Verified 01/14/25 15:28 amoxicillin Allergy Nausea Verified 01/14/25 15:28 meperidine Allergy Unknown Verified 01/14/25 15:28 pollen extracts Allergy Unknown Verified 01/14/25 15:28 Assessment & Plan Assessment & Plan (1) Orthostatic hypotension: Status: Inactive Code(s): I95.1 - Orthostatic hypotension Assessment and Plan: Depression/suicidal ideation Continue treatment plan per Psychiatry Orthostatic hypotension Recommend avoiding any sedative meds Last EKG with normal sinus rhythm. ECHO WNL, Cortisol level normal. Increase Midodrine to 10 mg t.i.d Hyperlipidemia Current ASCVD risk 18.2% We will start atorvastatin 10 mg at HS Baseline liver panel prior to initiation Thank you for allowing me to participate in the care of this patient. Will follow as needed, please notify medical provider with any changes in condition or concerns. (2) Generalized anxiety disorder with panic attacks: Status: Acute Code(s): F41.1 - Generalized anxiety disorder; F41.0 - Panic disorder [episodic paroxysmal anxiety] (3) Dependent personality disorder: Status: Acute Code(s): F60.7 - Dependent personality disorder (4) MDD (major depressive disorder), recurrent episode, moderate: Status: Acute Code(s): F33.1 - Major depressive disorder, recurrent, moderate Plan 02/05: EKG reassuring. start clomipramine 25 mg QHS. continue zyprexa 2.5 TID. 02/06: increase clomipramine to 50 mg starting tomorrow night. add zyhprexa 2.5 mg PRN BID for anxiety. ECT Hx D/W andrzej; Hx is not strongly supportive of its utility for this patient. T/C selegiline or spravato. 02/07 continue tx. 02/08: continue current management and treatment plan. 02/09: continue current management and treatment plan. 02/10: anxiety improved under current plan. adjust midodrine dosing times so pt gets all three doses - has been going to sleep prior to third dose. otherwise continue current mgmt. some lightheadedness, but BPs stable. 02/11: BPs lower than prior. hospitalist requested to review BPs and midodrine regimen in light of restarting clomipramine and increase c/o wooziness. anxiety improved since admission, but clearly remains very substantial. 02/12: medical plan for cortisol and echo reviewed. midodrine stays at 5 TID. DC ativan and start klonopin 0.54 BID for ease of administration for long-term outpatient use. will need PA for clomipramine prior to discharge. anxiety remains improved, appears less anxious, more visible, and more affectively expressive to staff. continue current mgmt. 02/13: anxious but improved. continue current mgmt. 02/14: echo WNL, HDL; starting lipitor. less anxious than at admission. using PRN zyprexa for anxiety. midodrine dosing increased to 10 TID. otherwise continnue current mgmt. Reason for continued inpatient stay Substantial Risk for: harm to self, inability to function and rapid decompensation Time Spent With Patient Time: Total time managing care of this patient today __25__ minutes.
[2025-02-14 17:12] VITALS: BP 115/67
[2025-02-14 20:00] VITALS: BP 104/56; PULSE 63; RESP 16; TEMP 36.7; O2SAT 92
[2025-02-15 07:55] VITALS: BP 118/59; PULSE 62; RESP 18; TEMP 36.6; O2SAT 95
[2025-02-15] MEDS: clonazePAM ODT 0.5 MG TAB.RAPDIS PO ×2 (08:26→20:27)
[2025-02-15 12:53] VITALS: BP 111/59
[2025-02-15 16:26] VITALS: BP 109/53
--- NOTE | 2025-02-15 19:28 | P.PNPSI_ITS ---
Subjective Subjective Date of Service: 02/15/25 Reason For Visit: SI Interim History: feeling fear this morning, just had meds. will wait a bit for them to kick in. per staff, spending much time in bed. Mental Status Exam Mental Status Exam Narrative: Appearance: adequate hygiene, appears anxious Behavior: cooperative. psychomotor: less PMA of hand-wringing Speech: clear, normal rate/rhythm/volume, spontaneous Thought process: linear Thought content: no signs of psychosis, anxious Mood: fear Affect: constricted, hyper-intense, non-labile SI: none expressed HI: none expressed VH/AH: none expressed Delusions: none expressed Insight/judgment:fair x 2. Memory/cog: alert, oriented x3. Diagnostics Vital Signs (24Hr): Vital Signs - 24 hr 02/14/25 20:00 02/15/25 07:55 02/15/25 12:53 Temperature 98.1 F 97.9 F Pulse Rate 63 62 Respiratory Rate 16 18 Blood Pressure 104/56 L 118/59 L 111/59 L Pulse Oximetry 92 95 Oxygen Delivery Method Room Air Room Air 02/15/25 16:26 Temperature Pulse Rate Respiratory Rate Blood Pressure 109/53 L Pulse Oximetry Oxygen Delivery Method BMI result Body Mass Index 26.9 Labs 02/14/25 13:37 Labs: Laboratory Results - last 48 hr 02/14/25 13:37 Sodium 143 Potassium 4.2 Chloride 111 H Carbon Dioxide 26 Anion Gap 10 L BUN 12 Creatinine 0.74 Estim Creat Clear Calc 75.2 Estimated GFR > 60 Random Glucose 95 Calcium 9.0 Total Bilirubin 0.2 AST 30 ALT 22 Alkaline Phosphatase 110 Total Protein 6.1 L Albumin 3.7 Medications Medications Current Medications Acetaminophen (Acetaminophen 325 Mg Tablet) 650 mg PO Q6H PRN PRN Reason: Headache/Pain, Scale 1-10 Al Hydroxide/Mg Hydroxide (Magnesium Hydrox/Alum Hydrox 30 Ml Oral.Susp) 30 ml PO Q6H PRN PRN Reason: Heartburn/Nausea Atorvastatin Calcium (Atorvastatin Calcium 10 Mg Tablet) 10 mg PO BEDTIME [facility] Last Admin: 02/14/25 20:52 Dose: 10 mg Benzocaine (Throat Lozenge, Medicated Lozenge) 1 lozenge MUCOUS MEM Q1H PRN PRN Reason: Sore Throat Last Admin: 02/10/25 08:14 Dose: 1 lozenge Clomipramine HCl (Clomipramine Hcl 25 Mg Capsule) 50 mg PO BEDTIME [facility] Last Admin: 02/14/25 20:53 Dose: 50 mg Clonazepam (Clonazepam Odt 0.5 Mg Tab.Rapdis) 0.5 mg PO BID [facility] Last Admin: 02/15/25 08:26 Dose: 0.5 mg Famotidine (Famotidine 20 Mg Tablet) 20 mg PO DAILY [facility] Last Admin: 02/15/25 08:24 Dose: 20 mg Hydroxyzine HCl (Hydroxyzine Hcl 25 Mg Tablet) 25 mg PO Q6H PRN PRN Reason: mild anxiety Last Admin: 02/07/25 09:50 Dose: 25 mg [place] Carbonate ([place] Carbonate 300 Mg Tablet) 150 mg PO BID [facility] Last Admin: 02/15/25 08:25 Dose: 150 mg Magnesium Hydroxide (Milk Of Magnesia 30 Ml Oral.Susp) 30 ml PO DAILY PRN PRN Reason: Constipation Midodrine (Midodrine Hcl 10 Mg Tablet) 10 mg PO TID@0900,1300,1700 [facility] Last Admin: 02/15/25 16:26 Dose: 10 mg Olanzapine (Olanzapine 2.5 Mg Tablet) 2.5 mg PO TID [facility] Last Admin: 02/15/25 14:41 Dose: 2.5 mg Olanzapine (Olanzapine 2.5 Mg Tablet) 2.5 mg PO BID PRN PRN Reason: severe anxiety Last Admin: 02/14/25 12:30 Dose: 2.5 mg Omeprazole (Omeprazole 20 Mg Capsule.Dr) 20 mg PO DAILY@0630 [facility] Last Admin: 02/15/25 06:05 Dose: 20 mg Sertraline HCl (Sertraline Hcl 100 Mg Tablet) 100 mg PO DAILY [facility] Last Admin: 02/15/25 08:24 Dose: 100 mg Trazodone HCl (Trazodone Hcl 50 Mg Tablet) 50 mg PO BEDTIME MRX1 PRN PRN Reason: Insomnia Zolpidem Tartrate (Zolpidem Tartrate 5 Mg Tablet) 5 mg PO BEDTIME [facility] Last Admin: 02/14/25 20:52 Dose: 5 mg Allergies Allergies Allergy/AdvReac Type Severity Reaction Status Date / Time ciprofloxacin (From CIPRO) Allergy Unknown DIARRHEA Verified 01/14/25 15:28 Morpholine Analogues Allergy Unknown Unknown Verified 01/14/25 15:28 amoxicillin Allergy Nausea Verified 01/14/25 15:28 meperidine Allergy Unknown Verified 01/14/25 15:28 pollen extracts Allergy Unknown Verified 01/14/25 15:28 Assessment & Plan Assessment & Plan (1) Orthostatic hypotension: Status: Inactive Code(s): I95.1 - Orthostatic hypotension Assessment and Plan: Depression/suicidal ideation Continue treatment plan per Psychiatry Orthostatic hypotension Recommend avoiding any sedative meds Last EKG with normal sinus rhythm. ECHO WNL, Cortisol level normal. Increase Midodrine to 10 mg t.i.d Hyperlipidemia Current ASCVD risk 18.2% We will start atorvastatin 10 mg at HS Baseline liver panel prior to initiation Thank you for allowing me to participate in the care of this patient. Will follow as needed, please notify medical provider with any changes in condition or concerns. (2) Generalized anxiety disorder with panic attacks: Status: Acute Code(s): F41.1 - Generalized anxiety disorder; F41.0 - Panic disorder [episodic paroxysmal anxiety] (3) Dependent personality disorder: Status: Acute Code(s): F60.7 - Dependent personality disorder (4) MDD (major depressive disorder), recurrent episode, moderate: Status: Acute Code(s): F33.1 - Major depressive disorder, recurrent, moderate Plan 02/05: EKG reassuring. start clomipramine 25 mg QHS. continue zyprexa 2.5 TID. 02/06: increase clomipramine to 50 mg starting tomorrow night. add zyhprexa 2.5 mg PRN BID for anxiety. ECT Hx D/W andrzej; Hx is not strongly supportive of its utility for this patient. T/C selegiline or spravato. 02/07 continue tx. 02/08: continue current management and treatment plan. 02/09: continue current management and treatment plan. 02/10: anxiety improved under current plan. adjust midodrine dosing times so pt gets all three doses - has been going to sleep prior to third dose. otherwise continue current mgmt. some lightheadedness, but BPs stable. 02/11: BPs lower than prior. hospitalist requested to review BPs and midodrine regimen in light of restarting clomipramine and increase c/o wooziness. anxiety improved since admission, but clearly remains very substantial. 02/12: medical plan for cortisol and echo reviewed. midodrine stays at 5 TID. DC ativan and start klonopin 0.54 BID for ease of administration for long-term outpatient use. will need PA for clomipramine prior to discharge. anxiety remains improved, appears less anxious, more visible, and more affectively expressive to staff. continue current mgmt. 02/13: anxious but improved. continue current mgmt. 02/14: echo WNL, HDL; starting lipitor. less anxious than at admission. using PRN zyprexa for anxiety. midodrine dosing increased to 10 TID. otherwise continnue current mgmt. 02/15: no change in condition or mgmt. Reason for continued inpatient stay Substantial Risk for: inability to function and rapid decompensation Time Spent With Patient Time: Total time managing care of this patient today ____ minutes.
[2025-02-15 20:00] VITALS: BP 128/59; PULSE 70; RESP 16; TEMP 36.7; O2SAT 95
[2025-02-16 08:00] VITALS: BP 109/63; PULSE 72; RESP 18; TEMP 36.7; O2SAT 97
[2025-02-16] MEDS: clonazePAM ODT 0.5 MG TAB.RAPDIS PO ×2 (08:23→20:17)
[2025-02-16 12:27] VITALS: BP 92/59
--- NOTE | 2025-02-16 14:52 | HO.PSYCHPN ---
Subjective Subjective Date of Service: 02/16/25 Reason For Visit: SI Interim History: as for yesterday, reports fear in the morning, as if something terrible is about to happen but he doesn't know what or why. states that yesterday it went away as morning meds kicked in. we agree to expect the same today. no other complaints or requests. per staff, attending groups, going out on the patio. brighter than previous admissions. Mental Status Exam Mental Status Exam Narrative: Appearance: adequate hygiene, appears anxious Behavior: cooperative. psychomotor: less PMA of hand-wringing Speech: clear, normal rate/rhythm/volume, spontaneous Thought process: linear Thought content: no signs of psychosis, anxious Mood: fear Affect: constricted, hyper-intense, non-labile SI: none expressed HI: none expressed VH/AH: none expressed Delusions: none expressed Insight/judgment:fair x 2. Memory/cog: alert, oriented x3. Diagnostics Vital Signs (24Hr): Vital Signs - 24 hr 02/15/25 16:26 02/15/25 20:00 02/16/25 08:00 Temperature 98.1 F 98.1 F Pulse Rate 70 72 Respiratory Rate 16 18 Blood Pressure 109/53 L 128/59 L 109/63 Pulse Oximetry 95 97 Oxygen Delivery Method Room Air Room Air 02/16/25 12:27 Temperature Pulse Rate Respiratory Rate Blood Pressure 92/59 L Pulse Oximetry Oxygen Delivery Method BMI result Body Mass Index 26.9 Labs 02/14/25 13:37 Medications Medications Current Medications Acetaminophen (Acetaminophen 325 Mg Tablet) 650 mg PO Q6H PRN PRN Reason: Headache/Pain, Scale 1-10 Al Hydroxide/Mg Hydroxide (Magnesium Hydrox/Alum Hydrox 30 Ml Oral.Susp) 30 ml PO Q6H PRN PRN Reason: Heartburn/Nausea Atorvastatin Calcium (Atorvastatin Calcium 10 Mg Tablet) 10 mg PO BEDTIME SAL Last Admin: 02/15/25 20:27 Dose: 10 mg Benzocaine (Throat Lozenge, Medicated Lozenge) 1 lozenge MUCOUS MEM Q1H PRN PRN Reason: Sore Throat Last Admin: 02/10/25 08:14 Dose: 1 lozenge Clomipramine HCl (Clomipramine Hcl 25 Mg Capsule) 50 mg PO BEDTIME SAL Last Admin: 02/15/25 20:30 Dose: 50 mg Clonazepam (Clonazepam Odt 0.5 Mg Tab.Rapdis) 0.5 mg PO BID [facility] Last Admin: 02/16/25 08:23 Dose: 0.5 mg Famotidine (Famotidine 20 Mg Tablet) 20 mg PO DAILY [facility] Last Admin: 02/16/25 08:23 Dose: 20 mg Hydroxyzine HCl (Hydroxyzine Hcl 25 Mg Tablet) 25 mg PO Q6H PRN PRN Reason: mild anxiety Last Admin: 02/07/25 09:50 Dose: 25 mg [place] Carbonate ([place] Carbonate 300 Mg Tablet) 150 mg PO BID [facility] Last Admin: 02/16/25 08:22 Dose: 150 mg Magnesium Hydroxide (Milk Of Magnesia 30 Ml Oral.Susp) 30 ml PO DAILY PRN PRN Reason: Constipation Midodrine (Midodrine Hcl 10 Mg Tablet) 10 mg PO TID@0900,1300,1700 [facility] Last Admin: 02/16/25 12:27 Dose: 10 mg Olanzapine (Olanzapine 2.5 Mg Tablet) 2.5 mg PO TID [facility] Last Admin: 02/16/25 14:20 Dose: 2.5 mg Olanzapine (Olanzapine 2.5 Mg Tablet) 2.5 mg PO BID PRN PRN Reason: severe anxiety Last Admin: 02/14/25 12:30 Dose: 2.5 mg Omeprazole (Omeprazole 20 Mg Capsule.Dr) 20 mg PO DAILY@0630 [facility] Last Admin: 02/16/25 05:55 Dose: 20 mg Sertraline HCl (Sertraline Hcl 100 Mg Tablet) 100 mg PO DAILY [facility] Last Admin: 02/16/25 08:23 Dose: 100 mg Trazodone HCl (Trazodone Hcl 50 Mg Tablet) 50 mg PO BEDTIME MRX1 PRN PRN Reason: Insomnia Zolpidem Tartrate (Zolpidem Tartrate 5 Mg Tablet) 5 mg PO BEDTIME [facility] Last Admin: 02/15/25 20:26 Dose: 5 mg Allergies Allergies Allergy/AdvReac Type Severity Reaction Status Date / Time ciprofloxacin (From CIPRO) Allergy Unknown DIARRHEA Verified 01/14/25 15:28 Morpholine Analogues Allergy Unknown Unknown Verified 01/14/25 15:28 amoxicillin Allergy Nausea Verified 01/14/25 15:28 meperidine Allergy Unknown Verified 01/14/25 15:28 pollen extracts Allergy Unknown Verified 01/14/25 15:28 Assessment & Plan Assessment & Plan (1) Orthostatic hypotension: Status: Inactive Code(s): I95.1 - Orthostatic hypotension Assessment and Plan: Depression/suicidal ideation Continue treatment plan per Psychiatry Orthostatic hypotension Recommend avoiding any sedative meds Last EKG with normal sinus rhythm. ECHO WNL, Cortisol level normal. Increase Midodrine to 10 mg t.i.d Hyperlipidemia Current ASCVD risk 18.2% We will start atorvastatin 10 mg at HS Baseline liver panel prior to initiation Thank you for allowing me to participate in the care of this patient. Will follow as needed, please notify medical provider with any changes in condition or concerns. (2) Generalized anxiety disorder with panic attacks: Status: Acute Code(s): F41.1 - Generalized anxiety disorder; F41.0 - Panic disorder [episodic paroxysmal anxiety] (3) Dependent personality disorder: Status: Acute Code(s): F60.7 - Dependent personality disorder (4) MDD (major depressive disorder), recurrent episode, moderate: Status: Acute Code(s): F33.1 - Major depressive disorder, recurrent, moderate Plan 02/05: EKG reassuring. start clomipramine 25 mg QHS. continue zyprexa 2.5 TID. 02/06: increase clomipramine to 50 mg starting tomorrow night. add zyhprexa 2.5 mg PRN BID for anxiety. ECT Hx D/W andrzej; Hx is not strongly supportive of its utility for this patient. T/C selegiline or spravato. 02/07 continue tx. 02/08: continue current management and treatment plan. 02/09: continue current management and treatment plan. 02/10: anxiety improved under current plan. adjust midodrine dosing times so pt gets all three doses - has been going to sleep prior to third dose. otherwise continue current mgmt. some lightheadedness, but BPs stable. 02/11: BPs lower than prior. hospitalist requested to review BPs and midodrine regimen in light of restarting clomipramine and increase c/o wooziness. anxiety improved since admission, but clearly remains very substantial. 02/12: medical plan for cortisol and echo reviewed. midodrine stays at 5 TID. DC ativan and start klonopin 0.54 BID for ease of administration for long-term outpatient use. will need PA for clomipramine prior to discharge. anxiety remains improved, appears less anxious, more visible, and more affectively expressive to staff. continue current mgmt. 02/13: anxious but improved. continue current mgmt. 02/14: echo WNL, HDL; starting lipitor. less anxious than at admission. using PRN zyprexa for anxiety. midodrine dosing increased to 10 TID. otherwise continnue current mgmt. 02/15: no change in condition or mgmt. 02/16: morning fear resolves after morning meds. continue current mgmt. Reason for continued inpatient stay Substantial Risk for: harm to self, inability to function and rapid decompensation Time Spent With Patient Time: Total time managing care of this patient today ____ minutes.
[2025-02-16 16:29] VITALS: BP 109/54
[2025-02-16 20:13] VITALS: BP 112/52; PULSE 69; RESP 18; TEMP 36.4; O2SAT 96
[2025-02-17 08:00] VITALS: BP 119/63; PULSE 75; RESP 16; TEMP 36.2; O2SAT 96
[2025-02-17] MEDS: clonazePAM ODT 0.5 MG TAB.RAPDIS PO ×2 (08:52→21:21)
[2025-02-17 13:57] VITALS: BP 80/46; O2SAT 61
[2025-02-17 14:36] VITALS: BP 94/50; PULSE 65
--- NOTE | 2025-02-17 15:04 | P.PNPSI_ITS ---
Subjective Subjective Date of Service: 02/17/25 Reason For Visit: SI Subjective Notes: Conditional Voluntary Interim History: Pt slept through the night. He reports waking up feeling very anxious. He reports some improvement overall in terms of his mood in that he is able to initiate more activities. No SI/HI. No overt psychosis or delusions. He continues to report he wants to return back home. discussed adding buspar for [place]. Mental Status Exam Mental Status Exam Narrative: Appearance: adequate hygiene, appears anxious Behavior: cooperative. psychomotor: less PMA of hand-wringing Speech: clear, normal rate/rhythm/volume, spontaneous Thought process: linear Thought content: no signs of psychosis, anxious Mood: fear Affect: constricted, hyper-intense, non-labile SI: none expressed HI: none expressed VH/AH: none expressed Delusions: none expressed Insight/judgment:fair x 2. Memory/cog: alert, oriented x3. Diagnostics Vital Signs (24Hr): Vital Signs - 24 hr 02/16/25 16:29 02/16/25 20:13 02/17/25 08:00 Temperature 97.5 F 97.2 F Pulse Rate 69 75 Respiratory Rate 18 16 Blood Pressure 109/54 L 112/52 L 119/63 Pulse Oximetry 96 96 Oxygen Delivery Method Room Air Room Air 02/17/25 13:57 02/17/25 14:36 Temperature Pulse Rate 65 Respiratory Rate Blood Pressure 80/46 L 94/50 L Pulse Oximetry 61 L Oxygen Delivery Method BMI result Body Mass Index 26.9 Labs 02/14/25 13:37 Medications Medications Current Medications Acetaminophen (Acetaminophen 325 Mg Tablet) 650 mg PO Q6H PRN PRN Reason: Headache/Pain, Scale 1-10 Last Admin: 02/17/25 08:52 Dose: 650 mg Al Hydroxide/Mg Hydroxide (Magnesium Hydrox/Alum Hydrox 30 Ml Oral.Susp) 30 ml PO Q6H PRN PRN Reason: Heartburn/Nausea Atorvastatin Calcium (Atorvastatin Calcium 10 Mg Tablet) 10 mg PO BEDTIME SAL Last Admin: 02/16/25 20:17 Dose: 10 mg Benzocaine (Throat Lozenge, Medicated Lozenge) 1 lozenge MUCOUS MEM Q1H PRN PRN Reason: Sore Throat Last Admin: 02/10/25 08:14 Dose: 1 lozenge Clomipramine HCl (Clomipramine Hcl 25 Mg Capsule) 50 mg PO BEDTIME [facility] Last Admin: 02/16/25 20:17 Dose: 50 mg Clonazepam (Clonazepam Odt 0.5 Mg Tab.Rapdis) 0.5 mg PO BID [facility] Last Admin: 02/17/25 08:52 Dose: 0.5 mg Famotidine (Famotidine 20 Mg Tablet) 20 mg PO DAILY [facility] Last Admin: 02/17/25 08:53 Dose: 20 mg Hydroxyzine HCl (Hydroxyzine Hcl 25 Mg Tablet) 25 mg PO Q6H PRN PRN Reason: mild anxiety Last Admin: 02/07/25 09:50 Dose: 25 mg [place] Carbonate ([place] Carbonate 300 Mg Tablet) 150 mg PO BID [facility] Last Admin: 02/17/25 08:52 Dose: 150 mg Magnesium Hydroxide (Milk Of Magnesia 30 Ml Oral.Susp) 30 ml PO DAILY PRN PRN Reason: Constipation Midodrine (Midodrine Hcl 10 Mg Tablet) 10 mg PO TID@0900,1300,1700 [facility] Last Admin: 02/17/25 13:59 Dose: 10 mg Olanzapine (Olanzapine 2.5 Mg Tablet) 2.5 mg PO TID [facility] Last Admin: 02/17/25 13:59 Dose: 2.5 mg Olanzapine (Olanzapine 2.5 Mg Tablet) 2.5 mg PO BID PRN PRN Reason: severe anxiety Last Admin: 02/14/25 12:30 Dose: 2.5 mg Omeprazole (Omeprazole 20 Mg Capsule.Dr) 20 mg PO DAILY@0630 [facility] Last Admin: 02/17/25 05:30 Dose: 20 mg Sertraline HCl (Sertraline Hcl 100 Mg Tablet) 100 mg PO DAILY [facility] Last Admin: 02/17/25 08:53 Dose: 100 mg Trazodone HCl (Trazodone Hcl 50 Mg Tablet) 50 mg PO BEDTIME MRX1 PRN PRN Reason: Insomnia Zolpidem Tartrate (Zolpidem Tartrate 5 Mg Tablet) 5 mg PO BEDTIME [facility] Last Admin: 02/16/25 20:17 Dose: 5 mg Allergies Allergies Allergy/AdvReac Type Severity Reaction Status Date / Time ciprofloxacin (From CIPRO) Allergy Unknown DIARRHEA Verified 01/14/25 15:28 Morpholine Analogues Allergy Unknown Unknown Verified 01/14/25 15:28 amoxicillin Allergy Nausea Verified 01/14/25 15:28 meperidine Allergy Unknown Verified 01/14/25 15:28 pollen extracts Allergy Unknown Verified 01/14/25 15:28 Assessment & Plan Assessment & Plan (1) Generalized anxiety disorder with panic attacks: Status: Acute Code(s): F41.1 - Generalized anxiety disorder; F41.0 - Panic disorder [episodic paroxysmal anxiety] (2) MDD (major depressive disorder), recurrent episode, moderate: Status: Acute Code(s): F33.1 - Major depressive disorder, recurrent, moderate (3) Orthostatic hypotension: Status: Inactive Code(s): I95.1 - Orthostatic hypotension Assessment and Plan: Depression/suicidal ideation Continue treatment plan per Psychiatry Orthostatic hypotension Recommend avoiding any sedative meds Last EKG with normal sinus rhythm. ECHO WNL, Cortisol level normal. Increase Midodrine to 10 mg t.i.d Hyperlipidemia Current ASCVD risk 18.2% We will start atorvastatin 10 mg at HS Baseline liver panel prior to initiation Thank you for allowing me to participate in the care of this patient. Will follow as needed, please notify medical provider with any changes in condition or concerns. (4) Dependent personality disorder: Status: Acute Code(s): F60.7 - Dependent personality disorder Plan 02/05: EKG reassuring. start clomipramine 25 mg QHS. continue zyprexa 2.5 TID. 02/06: increase clomipramine to 50 mg starting tomorrow night. add zyhprexa 2.5 mg PRN BID for anxiety. ECT Hx D/W andrzej; Hx is not strongly supportive of its utility for this patient. T/C selegiline or spravato. 02/07 continue tx. 02/08: continue current management and treatment plan. 02/09: continue current management and treatment plan. 02/10: anxiety improved under current plan. adjust midodrine dosing times so pt gets all three doses - has been going to sleep prior to third dose. otherwise continue current mgmt. some lightheadedness, but BPs stable. 02/11: BPs lower than prior. hospitalist requested to review BPs and midodrine regimen in light of restarting clomipramine and increase c/o wooziness. anxiety improved since admission, but clearly remains very substantial. 02/12: medical plan for cortisol and echo reviewed. midodrine stays at 5 TID. DC ativan and start klonopin 0.54 BID for ease of administration for long-term outpatient use. will need PA for clomipramine prior to discharge. anxiety remains improved, appears less anxious, more visible, and more affectively expressive to staff. continue current mgmt. 02/13: anxious but improved. continue current mgmt. 02/14: echo WNL, HDL; starting lipitor. less anxious than at admission. using PRN zyprexa for anxiety. midodrine dosing increased to 10 TID. otherwise continue current mgmt. 02/15: no change in condition or mgmt. 02/16: morning fear resolves after morning meds. continue current mgmt. 02/17 improved in mood, more future oriented, still wants to return home. can add buspar- if no therapeutic benefit or significant improvement, will d/c Reason for continued inpatient stay Substantial Risk for: harm to self, inability to function and rapid decompensation Time Spent With Patient Time: Total time managing care of this patient today ____ minutes.
[2025-02-17 15:13] VITALS: BP 109/56
[2025-02-17 16:51] VITALS: BP 110/54
[2025-02-17 20:00] VITALS: BP 109/56; PULSE 63; RESP 16; TEMP 36.4; O2SAT 97
[2025-02-18 07:57] VITALS: BP 101/54; PULSE 69; RESP 18; TEMP 36.4; O2SAT 97
[2025-02-18] MEDS: clonazePAM ODT 0.5 MG TAB.RAPDIS PO ×2 (08:12→19:59)
[2025-02-18 12:12] VITALS: BP 112/52
--- NOTE | 2025-02-18 16:12 | HO.PSYCHPN ---
Subjective Subjective Date of Service: 02/18/25 Reason For Visit: SI Subjective Notes: Conditional Voluntary Interim History: Pt slept through the night. Pt reports in the morning he feels anxious but this anxiety seems to lessen significantly during the day. He is taking all medications as prescribed. VS with ortho hotn. No SI/HI. He has been visible on the unit and attended most of the groups during the day. discussed that some anxiety will be present. Review of Systems Review of Systems Denies any shortness of breath, chest pain, + dizziness. no abdominal pain or discomfort, nausea vomiting or diarrhea Constitutional: Reports chills, Denies difficulty sleeping, Reports fatigue and Denies fever(s) Eyes: Reports as per HPI Reports system reviewed and no additional complaints, except as documented and Reports Normal hearing present Cardiovascular: Denies chest pain, Denies chest pain at rest, Denies chest pain with activity, Reports diaphoresis (at night), Denies syncope, Denies irregular heart rhythm and Denies dyspnea Respiratory: Denies dyspnea Gastrointestinal: Denies abdominal pain, Reports constipation (mild), Denies dyspepsia, Denies heartburn, Denies fecal incontinence, Denies loose stools, Denies vomiting and Denies hematemesis Genitourinary: Denies hematuria and Denies difficulty urinating Musculoskeletal: Denies abnormal gait, Denies back pain and Reports muscle weakness (arms, thighs) Skin/Breast: Reports system reviewed and no additional complaints, except as docu Reports Normal hearing present, Denies Neuro-related abnormal movements, Denies abnormal gait, Denies confusion, Denies syncope and Denies seizure-like activity Psychiatric: Denies abnormal sleep pattern, Reports anxiety, Denies change in appetite, Denies confusion, Reports depression, Denies auditory hallucinations, Reports hopelessness, Reports anhedonia, Reports panic attacks (1-2 times a week), Denies hallucinations, Denies tactile hallucinations, Denies homicidal ideation and Reports suicidal ideation (denies plan or intent) Endocrine: Reports fatigue Hematologic/Lymphatic: Reports no additional hematologic/lymphatic complaints Allergic/Immunologic: Reports no additional allergic/immunologic complaints Mental Status Exam Mental Status Exam Narrative: Appearance: adequate hygiene, appears anxious Behavior: cooperative. psychomotor: less PMA of hand-wringing Speech: clear, normal rate/rhythm/volume, spontaneous Thought process: linear Thought content: no signs of psychosis, anxious Mood: fear Affect: constricted, hyper-intense, non-labile SI: none expressed HI: none expressed VH/AH: none expressed Delusions: none expressed Insight/judgment:fair x 2. Memory/cog: alert, oriented x3. Diagnostics Vital Signs (24Hr): Vital Signs - 24 hr 02/17/25 16:51 02/17/25 20:00 02/18/25 07:57 Temperature 97.5 F 97.6 F Pulse Rate 63 69 Respiratory Rate 16 18 Blood Pressure 110/54 L 109/56 L 101/54 L Pulse Oximetry 97 97 Oxygen Delivery Method Room Air Room Air 02/18/25 12:12 Temperature Pulse Rate Respiratory Rate Blood Pressure 112/52 L Pulse Oximetry Oxygen Delivery Method BMI result Body Mass Index 26.9 Labs 02/14/25 13:37 Medications Medications Current Medications Acetaminophen (Acetaminophen 325 Mg Tablet) 650 mg PO Q6H PRN PRN Reason: Headache/Pain, Scale 1-10 Last Admin: 02/17/25 08:52 Dose: 650 mg Al Hydroxide/Mg Hydroxide (Magnesium Hydrox/Alum Hydrox 30 Ml Oral.Susp) 30 ml PO Q6H PRN PRN Reason: Heartburn/Nausea Atorvastatin Calcium (Atorvastatin Calcium 10 Mg Tablet) 10 mg PO BEDTIME [facility] Last Admin: 02/17/25 21:22 Dose: 10 mg Benzocaine (Throat Lozenge, Medicated Lozenge) 1 lozenge MUCOUS MEM Q1H PRN PRN Reason: Sore Throat Last Admin: 02/10/25 08:14 Dose: 1 lozenge Buspirone HCl (Buspirone Hcl 10 Mg Tablet) 10 mg PO TID [facility] Last Admin: 02/18/25 14:16 Dose: 10 mg Clomipramine HCl (Clomipramine Hcl 25 Mg Capsule) 50 mg PO BEDTIME [facility] Last Admin: 02/17/25 21:21 Dose: 50 mg Clonazepam (Clonazepam Odt 0.5 Mg Tab.Rapdis) 0.5 mg PO BID [facility] Last Admin: 02/18/25 08:12 Dose: 0.5 mg Famotidine (Famotidine 20 Mg Tablet) 20 mg PO DAILY [facility] Last Admin: 02/18/25 08:12 Dose: 20 mg Hydroxyzine HCl (Hydroxyzine Hcl 25 Mg Tablet) 25 mg PO Q6H PRN PRN Reason: mild anxiety Last Admin: 02/07/25 09:50 Dose: 25 mg [place] Carbonate ([place] Carbonate 300 Mg Tablet) 150 mg PO BID [facility] Last Admin: 02/18/25 08:13 Dose: 150 mg Magnesium Hydroxide (Milk Of Magnesia 30 Ml Oral.Susp) 30 ml PO DAILY PRN PRN Reason: Constipation Midodrine (Midodrine Hcl 10 Mg Tablet) 10 mg PO TID@0900,1300,1700 [facility] Last Admin: 02/18/25 12:12 Dose: 10 mg Olanzapine (Olanzapine 2.5 Mg Tablet) 2.5 mg PO TID [facility] Last Admin: 02/18/25 14:16 Dose: 2.5 mg Olanzapine (Olanzapine 2.5 Mg Tablet) 2.5 mg PO BID PRN PRN Reason: severe anxiety Last Admin: 02/14/25 12:30 Dose: 2.5 mg Omeprazole (Omeprazole 20 Mg Capsule.Dr) 20 mg PO DAILY@0630 [facility] Last Admin: 02/18/25 05:36 Dose: 20 mg Sertraline HCl (Sertraline Hcl 100 Mg Tablet) 100 mg PO DAILY [facility] Last Admin: 02/18/25 08:13 Dose: 100 mg Trazodone HCl (Trazodone Hcl 50 Mg Tablet) 50 mg PO BEDTIME MRX1 PRN PRN Reason: Insomnia Zolpidem Tartrate (Zolpidem Tartrate 5 Mg Tablet) 5 mg PO BEDTIME [facility] Last Admin: 02/17/25 21:21 Dose: 5 mg Allergies Allergies Allergy/AdvReac Type Severity Reaction Status Date / Time ciprofloxacin (From CIPRO) Allergy Unknown DIARRHEA Verified 01/14/25 15:28 Morpholine Analogues Allergy Unknown Unknown Verified 01/14/25 15:28 amoxicillin Allergy Nausea Verified 01/14/25 15:28 meperidine Allergy Unknown Verified 01/14/25 15:28 pollen extracts Allergy Unknown Verified 01/14/25 15:28 Assessment & Plan Assessment & Plan (1) Generalized anxiety disorder with panic attacks: Status: Acute Code(s): F41.1 - Generalized anxiety disorder; F41.0 - Panic disorder [episodic paroxysmal anxiety] (2) MDD (major depressive disorder), recurrent episode, moderate: Status: Acute Code(s): F33.1 - Major depressive disorder, recurrent, moderate (3) Orthostatic hypotension: Status: Inactive Code(s): I95.1 - Orthostatic hypotension Assessment and Plan: Depression/suicidal ideation Continue treatment plan per Psychiatry Orthostatic hypotension Recommend avoiding any sedative meds Last EKG with normal sinus rhythm. ECHO WNL, Cortisol level normal. Increase Midodrine to 10 mg t.i.d Hyperlipidemia Current ASCVD risk 18.2% We will start atorvastatin 10 mg at HS Baseline liver panel prior to initiation Thank you for allowing me to participate in the care of this patient. Will follow as needed, please notify medical provider with any changes in condition or concerns. (4) Dependent personality disorder: Status: Acute Code(s): F60.7 - Dependent personality disorder Plan 02/05: EKG reassuring. start clomipramine 25 mg QHS. continue zyprexa 2.5 TID. 02/06: increase clomipramine to 50 mg starting tomorrow night. add zyhprexa 2.5 mg PRN BID for anxiety. ECT Hx D/W andrzej; Hx is not strongly supportive of its utility for this patient. T/C selegiline or spravato. 02/07 continue tx. 02/08: continue current management and treatment plan. 02/09: continue current management and treatment plan. 02/10: anxiety improved under current plan. adjust midodrine dosing times so pt gets all three doses - has been going to sleep prior to third dose. otherwise continue current mgmt. some lightheadedness, but BPs stable. 02/11: BPs lower than prior. hospitalist requested to review BPs and midodrine regimen in light of restarting clomipramine and increase c/o wooziness. anxiety improved since admission, but clearly remains very substantial. 02/12: medical plan for cortisol and echo reviewed. midodrine stays at 5 TID. DC ativan and start klonopin 0.54 BID for ease of administration for long-term outpatient use. will need PA for clomipramine prior to discharge. anxiety remains improved, appears less anxious, more visible, and more affectively expressive to staff. continue current mgmt. 02/13: anxious but improved. continue current mgmt. 02/14: echo WNL, HDL; starting lipitor. less anxious than at admission. using PRN zyprexa for anxiety. midodrine dosing increased to 10 TID. otherwise continue current mgmt. 02/15: no change in condition or mgmt. 02/16: morning fear resolves after morning meds. continue current mgmt. 02/17 improved in mood, more future oriented, still wants to return home. can add buspar- if no therapeutic benefit or significant improvement, will d/c 02/18 continue tx. Reason for continued inpatient stay Substantial Risk for: inability to function Time Spent With Patient Time: Total time managing care of this patient today ____ minutes.
[2025-02-18 17:13] VITALS: BP 127/72
[2025-02-18 19:50] VITALS: BP 109/64; PULSE 73; RESP 17; TEMP 36.1; O2SAT 96
[2025-02-19 08:00] VITALS: BP 113/68; PULSE 78; RESP 15; TEMP 36; O2SAT 96
--- NOTE | 2025-02-19 08:43 | P.PNPSI_ITS ---
Subjective Subjective Date of Service: 02/19/25 Reason For Visit: SI Subjective Notes: Conditional Voluntary Interim History: pt sleeping through the night. He reports he was more anxious today during the day than other days but feeling better. He reports congestion for the past 2 weeks. He was sen by hospitalist and had chest xr that showed mild interstitial edema. consult to pulmonology. Medication Compliance: Yes Review of Systems Review of Systems Denies any shortness of breath, chest pain, + dizziness. no abdominal pain or discomfort, nausea vomiting or diarrhea Constitutional: Reports chills, Denies difficulty sleeping, Reports fatigue and Denies fever(s) Eyes: Reports as per HPI Reports system reviewed and no additional complaints, except as documented and Reports Normal hearing present Cardiovascular: Denies chest pain, Denies chest pain at rest, Denies chest pain with activity, Reports diaphoresis (at night), Denies syncope, Denies irregular heart rhythm and Denies dyspnea Respiratory: Denies dyspnea Gastrointestinal: Denies abdominal pain, Reports constipation (mild), Denies dyspepsia, Denies heartburn, Denies fecal incontinence, Denies loose stools, Denies vomiting and Denies hematemesis Genitourinary: Denies hematuria and Denies difficulty urinating Musculoskeletal: Denies abnormal gait, Denies back pain and Reports muscle weakness (arms, thighs) Skin/Breast: Reports system reviewed and no additional complaints, except as docu Reports Normal hearing present, Denies Neuro-related abnormal movements, Denies abnormal gait, Denies confusion, Denies syncope and Denies seizure-like activity Psychiatric: Denies abnormal sleep pattern, Reports anxiety, Denies change in appetite, Denies confusion, Reports depression, Denies auditory hallucinations, Reports hopelessness, Reports anhedonia, Reports panic attacks (1-2 times a week), Denies hallucinations, Denies tactile hallucinations, Denies homicidal ideation and Reports suicidal ideation (denies plan or intent) Endocrine: Reports fatigue Hematologic/Lymphatic: Reports no additional hematologic/lymphatic complaints Allergic/Immunologic: Reports no additional allergic/immunologic complaints Mental Status Exam Mental Status Exam Narrative: Appearance: adequate hygiene, appears anxious Behavior: cooperative. psychomotor: less PMA of hand-wringing Speech: clear, normal rate/rhythm/volume, spontaneous Thought process: linear Thought content: no signs of psychosis, anxious Mood: fear Affect: constricted, hyper-intense, non-labile SI: none expressed HI: none expressed VH/AH: none expressed Delusions: none expressed Insight/judgment:fair x 2. Memory/cog: alert, oriented x3. Diagnostics Vital Signs (24Hr): Vital Signs - 24 hr 02/18/25 12:12 02/18/25 17:13 02/18/25 19:50 Temperature 97 F Pulse Rate 73 Respiratory Rate 17 Blood Pressure 112/52 L 127/72 109/64 Pulse Oximetry 96 Oxygen Delivery Method Room Air 02/19/25 08:00 Temperature 96.8 F Pulse Rate 78 Respiratory Rate 15 Blood Pressure 113/68 Pulse Oximetry 96 Oxygen Delivery Method Room Air BMI result Body Mass Index 26.9 Labs 02/19/25 16:00 02/19/25 16:01 Medications Medications Current Medications Acetaminophen (Acetaminophen 325 Mg Tablet) 650 mg PO Q6H PRN PRN Reason: Headache/Pain, Scale 1-10 Last Admin: 02/17/25 08:52 Dose: 650 mg Al Hydroxide/Mg Hydroxide (Magnesium Hydrox/Alum Hydrox 30 Ml Oral.Susp) 30 ml PO Q6H PRN PRN Reason: Heartburn/Nausea Atorvastatin Calcium (Atorvastatin Calcium 10 Mg Tablet) 10 mg PO BEDTIME [facility] Last Admin: 02/18/25 19:59 Dose: 10 mg Benzocaine (Throat Lozenge, Medicated Lozenge) 1 lozenge MUCOUS MEM Q1H PRN PRN Reason: Sore Throat Last Admin: 02/10/25 08:14 Dose: 1 lozenge Buspirone HCl (Buspirone Hcl 10 Mg Tablet) 10 mg PO TID [facility] Last Admin: 02/18/25 19:59 Dose: 10 mg Clomipramine HCl (Clomipramine Hcl 25 Mg Capsule) 50 mg PO BEDTIME [facility] Last Admin: 02/18/25 19:59 Dose: 50 mg Clonazepam (Clonazepam Odt 0.5 Mg Tab.Rapdis) 0.5 mg PO BID [facility] Last Admin: 02/18/25 19:59 Dose: 0.5 mg Famotidine (Famotidine 20 Mg Tablet) 20 mg PO DAILY [facility] Last Admin: 02/18/25 08:12 Dose: 20 mg Hydroxyzine HCl (Hydroxyzine Hcl 25 Mg Tablet) 25 mg PO Q6H PRN PRN Reason: mild anxiety Last Admin: 02/07/25 09:50 Dose: 25 mg Cope Carbonate (Cope Carbonate 300 Mg Tablet) 150 mg PO BID [facility] Last Admin: 02/18/25 19:58 Dose: 150 mg Magnesium Hydroxide (Milk Of Magnesia 30 Ml Oral.Susp) 30 ml PO DAILY PRN PRN Reason: Constipation Midodrine (Midodrine Hcl 10 Mg Tablet) 10 mg PO TID@0900,1300,1700 [facility] Last Admin: 02/18/25 17:13 Dose: Not Given Olanzapine (Olanzapine 2.5 Mg Tablet) 2.5 mg PO TID [facility] Last Admin: 02/18/25 19:59 Dose: 2.5 mg Olanzapine (Olanzapine 2.5 Mg Tablet) 2.5 mg PO BID PRN PRN Reason: severe anxiety Last Admin: 02/14/25 12:30 Dose: 2.5 mg Omeprazole (Omeprazole 20 Mg Capsule.Dr) 20 mg PO DAILY@0630 [facility] Last Admin: 02/19/25 05:35 Dose: 20 mg Sertraline HCl (Sertraline Hcl 100 Mg Tablet) 100 mg PO DAILY [facility] Last Admin: 02/18/25 08:13 Dose: 100 mg Trazodone HCl (Trazodone Hcl 50 Mg Tablet) 50 mg PO BEDTIME MRX1 PRN PRN Reason: Insomnia Allergies Allergies Allergy/AdvReac Type Severity Reaction Status Date / Time ciprofloxacin (From CIPRO) Allergy Unknown DIARRHEA Verified 01/14/25 15:28 Morpholine Analogues Allergy Unknown Unknown Verified 01/14/25 15:28 amoxicillin Allergy Nausea Verified 01/14/25 15:28 meperidine Allergy Unknown Verified 01/14/25 15:28 pollen extracts Allergy Unknown Verified 01/14/25 15:28 Assessment & Plan Assessment & Plan (1) Generalized anxiety disorder with panic attacks: Status: Acute Code(s): F41.1 - Generalized anxiety disorder; F41.0 - Panic disorder [episodic paroxysmal anxiety] (2) MDD (major depressive disorder), recurrent episode, moderate: Status: Acute Code(s): F33.1 - Major depressive disorder, recurrent, moderate (3) Orthostatic hypotension: Status: Inactive Code(s): I95.1 - Orthostatic hypotension Assessment and Plan: Depression/suicidal ideation Continue treatment plan per Psychiatry Orthostatic hypotension Recommend avoiding any sedative meds Last EKG with normal sinus rhythm. ECHO WNL, Cortisol level normal. Increase Midodrine to 10 mg t.i.d Hyperlipidemia Current ASCVD risk 18.2% We will start atorvastatin 10 mg at HS Baseline liver panel prior to initiation Thank you for allowing me to participate in the care of this patient. Will follow as needed, please notify medical provider with any changes in condition or concerns. (4) Dependent personality disorder: Status: Acute Code(s): F60.7 - Dependent personality disorder Plan 02/05: EKG reassuring. start clomipramine 25 mg QHS. continue zyprexa 2.5 TID. 02/06: increase clomipramine to 50 mg starting tomorrow night. add zyhprexa 2.5 mg PRN BID for anxiety. ECT Hx D/W andrzej; Hx is not strongly supportive of its utility for this patient. T/C selegiline or spravato. 02/07 continue tx. 02/08: continue current management and treatment plan. 02/09: continue current management and treatment plan. 02/10: anxiety improved under current plan. adjust midodrine dosing times so pt gets all three doses - has been going to sleep prior to third dose. otherwise continue current mgmt. some lightheadedness, but BPs stable. 02/11: BPs lower than prior. hospitalist requested to review BPs and midodrine regimen in light of restarting clomipramine and increase c/o wooziness. anxiety improved since admission, but clearly remains very substantial. 02/12: medical plan for cortisol and echo reviewed. midodrine stays at 5 TID. DC ativan and start klonopin 0.54 BID for ease of administration for long-term outpatient use. will need PA for clomipramine prior to discharge. anxiety remains improved, appears less anxious, more visible, and more affectively expressive to staff. continue current mgmt. 02/13: anxious but improved. continue current mgmt. 02/14: echo WNL, HDL; starting lipitor. less anxious than at admission. using PRN zyprexa for anxiety. midodrine dosing increased to 10 TID. otherwise continue current mgmt. 02/15: no change in condition or mgmt. 02/16: morning fear resolves after morning meds. continue current mgmt. 02/17 improved in mood, more future oriented, still wants to return home. can add buspar- if no therapeutic benefit or significant improvement, will d/c 02/18 continue tx. 02/19 anxiety stable although residual symptoms present and expected. chest xray showed mild interstitial edema. consult to pulmonology. Reason for continued inpatient stay Substantial Risk for: inability to function Time Spent With Patient Time: Total time managing care of this patient today ____ minutes.
[2025-02-19] MEDS: clonazePAM ODT 0.5 MG TAB.RAPDIS PO ×2 (09:10→21:02)
[2025-02-19 12:32] VITALS: BP 116/72
--- NOTE | 2025-02-19 14:02 | HO.PM.IMPN ---
Subjective Subjective Date of Service: 02/19/25 Interval History: Per nursing patient is reporting upper airway congestion and hoarse voice, cough with green sputum and mild sore throat for the past 2 weeks. His vitals were stable, no shortness of breath. Denies any chest pain, denies any abdominal pain, fever, chills, loss of appetite or any other concerning symptoms. Vitals have been stable with no hypoxia. Denies any dizziness today. Reports since midodrine was increased dizziness overall improved. Review of Systems Denies any shortness of breath, chest pain, palpitations, dizziness, lightheadedness, headaches, dysuria, abdominal pain or discomfort, nausea, vomiting or diarrhea. Denies Chills, body aches, muscle aches, fatigue or weight loss. Physical Exam Exam: Exam: CONST: Alert and oriented, in NAD. Well nourished HEENT: Normocephalic, atraumatic, MMM, Eyes clear, Neck supple RESP: Lungs clear, RRR even and regular HEART:,RRR, S1, S2. No edema GI:Abdomen Soft NT, ND. + BS times four :Deferred SKIN: Warm dry and intact, no visible lesions or rashes NEURO:CN II-XII Intact bilaterally, Sensation intact. Speech clear. Gait steady PSYCH: Normal affect Vital Signs: Vital Signs: Last Vital Signs Temp 96.8 F 02/19/25 08:00 Pulse 78 02/19/25 08:00 Resp 15 02/19/25 08:00 BP 116/72 02/19/25 12:32 Pulse Ox 96 02/19/25 08:00 O2 Del Method Room Air 02/19/25 08:00 BMI result Body Mass Index 26.9 Objective Data Active Medications Acetaminophen (Acetaminophen 325 Mg Tablet) 650 mg PO Q6H PRN PRN Reason: Headache/Pain, Scale 1-10 Last Admin: 02/19/25 09:10 Dose: 650 mg Documented By: SILVIA Al Hydroxide/Mg Hydroxide (Magnesium Hydrox/Alum Hydrox 30 Ml Oral.Susp) 30 ml PO Q6H PRN PRN Reason: Heartburn/Nausea Atorvastatin Calcium (Atorvastatin Calcium 10 Mg Tablet) 10 mg PO BEDTIME [facility] Last Admin: 02/18/25 19:59 Dose: 10 mg Documented By: MATEO Benzocaine (Throat Lozenge, Medicated Lozenge) 1 lozenge MUCOUS MEM Q1H PRN PRN Reason: Sore Throat Last Admin: 02/10/25 08:14 Dose: 1 lozenge Documented By: VANESSA Buspirone HCl (Buspirone Hcl 10 Mg Tablet) 10 mg PO TID [facility] Last Admin: 02/19/25 09:10 Dose: 10 mg Documented By: SILVIA Clomipramine HCl (Clomipramine Hcl 25 Mg Capsule) 50 mg PO BEDTIME [facility] Last Admin: 02/18/25 19:59 Dose: 50 mg Documented By: MATEO Clonazepam (Clonazepam Odt 0.5 Mg Tab.Rapdis) 0.5 mg PO BID [facility] Last Admin: 02/19/25 09:10 Dose: 0.5 mg Documented By: SILVIA Famotidine (Famotidine 20 Mg Tablet) 20 mg PO DAILY [facility] Last Admin: 02/19/25 09:10 Dose: 20 mg Documented By: SILVIA Hydroxyzine HCl (Hydroxyzine Hcl 25 Mg Tablet) 25 mg PO Q6H PRN PRN Reason: mild anxiety Last Admin: 02/07/25 09:50 Dose: 25 mg Documented By: MELANIE Ackerly Carbonate (Ackerly Carbonate 300 Mg Tablet) 150 mg PO BID [facility] Last Admin: 02/19/25 09:11 Dose: 150 mg Documented By: SILVIA Magnesium Hydroxide (Milk Of Magnesia 30 Ml Oral.Susp) 30 ml PO DAILY PRN PRN Reason: Constipation Midodrine (Midodrine Hcl 10 Mg Tablet) 10 mg PO TID@0900,1300,1700 [facility] Last Admin: 02/19/25 12:32 Dose: 10 mg Documented By: SILVIA Olanzapine (Olanzapine 2.5 Mg Tablet) 2.5 mg PO TID [facility] Last Admin: 02/19/25 09:10 Dose: 2.5 mg Documented By: SILVIA Olanzapine (Olanzapine 2.5 Mg Tablet) 2.5 mg PO BID PRN PRN Reason: severe anxiety Last Admin: 02/14/25 12:30 Dose: 2.5 mg Documented By: MUSA Omeprazole (Omeprazole 20 Mg Capsule.Dr) 20 mg PO DAILY@0630 [facility] Last Admin: 02/19/25 05:35 Dose: 20 mg Documented By: MATEO Sertraline HCl (Sertraline Hcl 100 Mg Tablet) 100 mg PO DAILY [facility] Last Admin: 02/19/25 09:11 Dose: 100 mg Documented By: SILVIA Trazodone HCl (Trazodone Hcl 50 Mg Tablet) 50 mg PO BEDTIME MRX1 PRN PRN Reason: Insomnia Zolpidem Tartrate (Zolpidem Tartrate 5 Mg Tablet) 5 mg PO BEDTIME PRN PRN Reason: Insomnia Labs 02/14/25 13:37 Assessment and Plan (1) Orthostatic hypotension: Status: Inactive Plan Depression/suicidal ideation Continue treatment plan per Psychiatry Cough/sore throat Patient reports symptoms have persisted for 2 weeks. No fever or hypoxia noted,no tachycardia We will check chest x-ray to rule out any abnormality Check CBC and BMP for any abnormality. COVID/FLU/RSV rule out. Start Mucinex b.i.d. Orthostatic hypotension Recommend avoiding any sedative meds Last EKG with normal sinus rhythm. ECHO WNL, Cortisol level normal. Continue Midodrine to 10 mg t.i.d Hyperlipidemia Current ASCVD risk 18.2% Continue atorvastatin 10 mg at HS Baseline liver panel prior to initiation Thank you for allowing me to participate in the care of this patient. Will follow as needed, please notify medical provider with any changes in condition or concerns. Quality Stroke Does the patient have a stroke diagnosis?: No VTE Prior VTE?: No VTE Risk Level:: Medical - low VTE Device Contraindication: Treatment Not Indicated VTE Drug Contraindication: Treatment Not Indicated
[2025-02-19 16:05] LABS: MANUAL DIFF FLAG NO
[2025-02-19 16:08] LABS: Hematocrit 31.2 % (42.0-52.0); Hemoglobin 10.1 g/dl (14.0-18.0); Imm Gran Abs Auto 0.06 X10*3/uL (0.00-0.03); Imm Gran Pct Auto 0.7 % (0.0-0.4); Lymphocytes Absolute Auto 1.5 X10*3/uL (1.2-4.9); Mean Corpuscular HGB Conc 32.4 g/dl (31.0-36.0); Mean Corpuscular Hemoglobin 29.1 pg (27.0-33.0); Mean Corpuscular Volume 89.9 fL (80.0-98.0); NRBC Abs Auto 0.000 X10*3/uL (0.0-0.012); NRBC Pct Auto 0.0 /100WBC (0.0-0.2); Platelet Count 346 X10*3/uL (160-400); Red Blood Count 3.47 X10*6/uL (4.60-5.80); White Blood Count 8.4 X10*3/uL (4.8-10.8)
[2025-02-19 16:16] VITALS: BP 122/60
[2025-02-19] MEDS: guaiFENesin LA 600 MG TAB.ER.12H PO ×2 (16:16→21:02)
--- NOTE | 2025-02-19 16:18 | PM.EVENT ---
Event Note Date of Service: 02/19/25 Event Note: Chest x-ray noted to have incidental finding of mild interstitial edema and probable small volume right-sided pleural effusion. We will order a pro BNP and procalcitonin level. In the interim if patient develops shortness of breath or hypoxia or any other concerning symptoms can start doxycycline Time Spent With Patient Time: Total time managing care of this patient today ____ minutes.
[2025-02-19 16:21] LABS: Anion Gap 12 (12-20); Blood Urea Nitrogen 14 mg/dL (9-16); Calcium 8.8 mg/dL (8.4-10.2); Carbon Dioxide 25 mmol/L (22-29); Chloride 109 mmol/L (96-108); Creatinine Clr Calc Pharmacy 73.2; Estimated Glomerular Filt Rate > 60; Potassium 4.7 mmol/L (3.3-5.1); Sodium 141 mmol/L (135-145)
[2025-02-19 16:42] LABS: NT Pro B Type Natriuretic Pept 341.8 pg/mL (<300)
[2025-02-19 17:12] LABS: Procalcitonin 0.08 ng/mL
[2025-02-19 17:22] LABS: Resp Syncy Virus RNA Qual PCR NEGATIVE (Negative); SARS COV2 PCR INHOUSE NEGATIVE (Negative)
[2025-02-19 20:00] VITALS: BP 103/56; PULSE 60; RESP 17; TEMP 36.3; O2SAT 95
[2025-02-20 08:00] VITALS: BP 118/59; PULSE 98; RESP 17; TEMP 36.4; O2SAT 95
[2025-02-20 08:48] VITALS: BP 118/59
[2025-02-20] MEDS: guaiFENesin LA 600 MG TAB.ER.12H PO ×2 (08:48→20:20)
[2025-02-20] MEDS: clonazePAM ODT 0.5 MG TAB.RAPDIS PO ×2 (08:50→20:20)
[2025-02-20 10:16] VITALS: BMI 27.4
[2025-02-20 13:16] VITALS: BP 98/56
--- NOTE | 2025-02-20 17:08 | P.PNPSI_ITS ---
Subjective Subjective Date of Service: 02/20/25 Reason For Visit: SI Subjective Notes: Conditional Voluntary Interim History: Pt sleeping through the night. He presents more future oriented, thinking that after discharge he can go to [facility]. He denies SI/HI. Somewhat anxious but this at this point is baseline. He has been going to groups. No psychosis and delusions. Medication Compliance: Yes Review of Systems Review of Systems Denies any shortness of breath, chest pain, palpitations, dizziness, lightheadedness, headaches, dysuria, abdominal pain or discomfort, nausea, vomiting or diarrhea. Denies Chills, body aches, muscle aches, fatigue or weight loss. Constitutional: Reports chills, Denies difficulty sleeping, Reports fatigue and Denies fever(s) Eyes: Reports as per HPI Reports system reviewed and no additional complaints, except as documented and Reports Normal hearing present Cardiovascular: Denies chest pain, Denies chest pain at rest, Denies chest pain with activity, Reports diaphoresis (at night), Denies syncope, Denies irregular heart rhythm and Denies dyspnea Respiratory: Denies dyspnea Gastrointestinal: Denies abdominal pain, Reports constipation (mild), Denies dyspepsia, Denies heartburn, Denies fecal incontinence, Denies loose stools, Denies vomiting and Denies hematemesis Genitourinary: Denies hematuria and Denies difficulty urinating Musculoskeletal: Denies abnormal gait, Denies back pain and Reports muscle weakness (arms, thighs) Skin/Breast: Reports system reviewed and no additional complaints, except as docu Reports Normal hearing present, Denies Neuro-related abnormal movements, Denies abnormal gait, Denies confusion, Denies syncope and Denies seizure-like activity Psychiatric: Denies abnormal sleep pattern, Reports anxiety, Denies change in appetite, Denies confusion, Reports depression, Denies auditory hallucinations, Reports hopelessness, Reports anhedonia, Reports panic attacks (1-2 times a week), Denies hallucinations, Denies tactile hallucinations, Denies homicidal ideation and Reports suicidal ideation (denies plan or intent) Endocrine: Reports fatigue Hematologic/Lymphatic: Reports no additional hematologic/lymphatic complaints Allergic/Immunologic: Reports no additional allergic/immunologic complaints Mental Status Exam Mental Status Exam Narrative: Appearance: adequate hygiene, appears anxious Behavior: cooperative. psychomotor: less PMA of hand-wringing Speech: clear, normal rate/rhythm/volume, spontaneous Thought process: linear Thought content: no signs of psychosis, anxious Mood: fear Affect: constricted, hyper-intense, non-labile SI: none expressed HI: none expressed VH/AH: none expressed Delusions: none expressed Insight/judgment:fair x 2. Memory/cog: alert, oriented x3. Diagnostics Vital Signs (24Hr): Vital Signs - 24 hr 02/19/25 20:00 02/20/25 08:00 02/20/25 08:48 Temperature 97.4 F 97.5 F Pulse Rate 60 98 Respiratory Rate 17 17 Blood Pressure 103/56 L 118/59 L 118/59 L Pulse Oximetry 95 95 Oxygen Delivery Method Room Air Room Air 02/20/25 13:16 Temperature Pulse Rate Respiratory Rate Blood Pressure 98/56 L Pulse Oximetry Oxygen Delivery Method BMI result Body Mass Index 27.4 Labs 02/19/25 16:00 02/19/25 16:01 Labs: Laboratory Results - last 48 hr 02/19/25 02/19/25 02/19/25 16:00 16:01 16:15 WBC 8.4 RBC 3.47 L Hgb 10.1 L Hct 31.2 L MCV 89.9 MCH 29.1 MCHC 32.4 RDW 16.4 H Plt Count 346 MPV 10.3 Immature Gran % (Auto) 0.7 H Neut % (Auto) 64.4 Lymph % (Auto) 17.9 L [place] % (Auto) 13.6 H Eos % (Auto) 3.0 Baso % (Auto) 0.4 Lymph # (Auto) 1.5 [place] # (Auto) 1.1 Eos # (Auto) 0.3 Baso # (Auto) 0.0 Abs Immat Gran (auto) 0.06 H Absolute Neuts (auto) 5.4 Absolute Nucleated RBC 0.000 Nucleated RBC % (auto) 0.0 Sodium 141 Potassium 4.7 Chloride 109 H Carbon Dioxide 25 Anion Gap 12 BUN 14 Creatinine 0.76 Estim Creat Clear Calc 73.2 Estimated GFR > 60 Random Glucose 79 Calcium 8.8 NT-Pro-B Natriuret Pep 341.8 H Procalcitonin 0.08 Rheumatoid Factor Influenza Type A (PCR) NEGATIVE Influenza Type B (PCR) NEGATIVE RSV RNA Qual (PCR) NEGATIVE SARS-CoV-2 RNA (RT-PCR) NEGATIVE 02/20/25 11:53 WBC RBC Hgb Hct MCV MCH MCHC RDW Plt Count MPV Immature Gran % (Auto) Neut % (Auto) Lymph % (Auto) [place] % (Auto) Eos % (Auto) Baso % (Auto) Lymph # (Auto) [place] # (Auto) Eos # (Auto) Baso # (Auto) Abs Immat Gran (auto) Absolute Neuts (auto) Absolute Nucleated RBC Nucleated RBC % (auto) Sodium Potassium Chloride Carbon Dioxide Anion Gap BUN Creatinine Estim Creat Clear Calc Estimated GFR Random Glucose Calcium NT-Pro-B Natriuret Pep Procalcitonin Rheumatoid Factor < 13.0 Influenza Type A (PCR) Influenza Type B (PCR) RSV RNA Qual (PCR) SARS-CoV-2 RNA (RT-PCR) Imaging Radiology Impressions: ITS Impressions Chest X-Ray 02/19/25 15:05 IMPRESSION: Mild interstitial edema and probably small volume right-sided pleural effusion. Scoliosis and spondylosis, thoracolumbar spine. Electronically signed by: Darius Penn MD 02/19/2025 03:43 PM EDT Medications Medications Current Medications Acetaminophen (Acetaminophen 325 Mg Tablet) 650 mg PO Q6H PRN PRN Reason: Headache/Pain, Scale 1-10 Last Admin: 02/19/25 09:10 Dose: 650 mg Al Hydroxide/Mg Hydroxide (Magnesium Hydrox/Alum Hydrox 30 Ml Oral.Susp) 30 ml PO Q6H PRN PRN Reason: Heartburn/Nausea Atorvastatin Calcium (Atorvastatin Calcium 10 Mg Tablet) 10 mg PO BEDTIME [facility] Last Admin: 02/19/25 21:01 Dose: 10 mg Benzocaine (Throat Lozenge, Medicated Lozenge) 1 lozenge MUCOUS MEM Q1H PRN PRN Reason: Sore Throat Last Admin: 02/10/25 08:14 Dose: 1 lozenge Buspirone HCl (Buspirone Hcl 10 Mg Tablet) 10 mg PO TID [facility] Last Admin: 02/20/25 15:23 Dose: 10 mg Clomipramine HCl (Clomipramine Hcl 25 Mg Capsule) 50 mg PO BEDTIME [facility] Last Admin: 02/19/25 21:02 Dose: 50 mg Clonazepam (Clonazepam Odt 0.5 Mg Tab.Rapdis) 0.5 mg PO BID [facility] Last Admin: 02/20/25 08:50 Dose: 0.5 mg Famotidine (Famotidine 20 Mg Tablet) 20 mg PO DAILY [facility] Last Admin: 02/20/25 08:50 Dose: 20 mg Guaifenesin (Guaifenesin La 600 Mg Tab.Er.12h) 600 mg PO BID [facility] Last Admin: 02/20/25 08:48 Dose: 600 mg Guaifenesin (Guaifenesin La 600 Mg Tab.Er.12h) 600 mg PO BID [facility] Stop: 02/24/25 20:59 Last Admin: 02/20/25 10:13 Dose: Not Given Hydroxyzine HCl (Hydroxyzine Hcl 25 Mg Tablet) 25 mg PO Q6H PRN PRN Reason: mild anxiety Last Admin: 02/19/25 13:40 Dose: 25 mg [place] Carbonate ([place] Carbonate 300 Mg Tablet) 150 mg PO BID [facility] Last Admin: 02/20/25 08:49 Dose: 150 mg Magnesium Hydroxide (Milk Of Magnesia 30 Ml Oral.Susp) 30 ml PO DAILY PRN PRN Reason: Constipation Midodrine (Midodrine Hcl 10 Mg Tablet) 10 mg PO TID@0900,1300,1700 [facility] Last Admin: 02/20/25 13:16 Dose: 10 mg Olanzapine (Olanzapine 2.5 Mg Tablet) 2.5 mg PO TID [facility] Last Admin: 02/20/25 15:23 Dose: 2.5 mg Olanzapine (Olanzapine 2.5 Mg Tablet) 2.5 mg PO BID PRN PRN Reason: severe anxiety Last Admin: 02/14/25 12:30 Dose: 2.5 mg Omeprazole (Omeprazole 20 Mg Capsule.Dr) 20 mg PO DAILY@0630 [facility] Last Admin: 02/20/25 05:37 Dose: 20 mg Sertraline HCl (Sertraline Hcl 100 Mg Tablet) 100 mg PO DAILY [facility] Last Admin: 02/20/25 08:50 Dose: 100 mg Trazodone HCl (Trazodone Hcl 50 Mg Tablet) 50 mg PO BEDTIME MRX1 PRN PRN Reason: Insomnia Zolpidem Tartrate (Zolpidem Tartrate 5 Mg Tablet) 5 mg PO BEDTIME PRN PRN Reason: Insomnia Last Admin: 02/19/25 21:09 Dose: 5 mg Allergies Allergies Allergy/AdvReac Type Severity Reaction Status Date / Time ciprofloxacin (From CIPRO) Allergy Unknown DIARRHEA Verified 01/14/25 15:28 Morpholine Analogues Allergy Unknown Unknown Verified 01/14/25 15:28 amoxicillin Allergy Nausea Verified 01/14/25 15:28 meperidine Allergy Unknown Verified 01/14/25 15:28 pollen extracts Allergy Unknown Verified 01/14/25 15:28 Assessment & Plan Assessment & Plan (1) Generalized anxiety disorder with panic attacks: Status: Acute Code(s): F41.1 - Generalized anxiety disorder; F41.0 - Panic disorder [episodic paroxysmal anxiety] (2) MDD (major depressive disorder), recurrent episode, moderate: Status: Acute Code(s): F33.1 - Major depressive disorder, recurrent, moderate (3) Orthostatic hypotension: Status: Inactive Code(s): I95.1 - Orthostatic hypotension Assessment and Plan: Depression/suicidal ideation Continue treatment plan per Psychiatry Orthostatic hypotension Recommend avoiding any sedative meds Last EKG with normal sinus rhythm. ECHO WNL, Cortisol level normal. Increase Midodrine to 10 mg t.i.d Hyperlipidemia Current ASCVD risk 18.2% We will start atorvastatin 10 mg at HS Baseline liver panel prior to initiation Thank you for allowing me to participate in the care of this patient. Will follow as needed, please notify medical provider with any changes in condition or concerns. (4) Dependent personality disorder: Status: Acute Code(s): F60.7 - Dependent personality disorder Plan 02/05: EKG reassuring. start clomipramine 25 mg QHS. continue zyprexa 2.5 TID. 02/06: increase clomipramine to 50 mg starting tomorrow night. add zyhprexa 2.5 mg PRN BID for anxiety. ECT Hx D/W andrzej; Agnes is not strongly supportive of its utility for this patient. T/C selegiline or spravato. 02/07 continue tx. 02/08: continue current management and treatment plan. 02/09: continue current management and treatment plan. 02/10: anxiety improved under current plan. adjust midodrine dosing times so pt gets all three doses - has been going to sleep prior to third dose. otherwise continue current mgmt. some lightheadedness, but BPs stable. 02/11: BPs lower than prior. hospitalist requested to review BPs and midodrine regimen in light of restarting clomipramine and increase c/o wooziness. anxiety improved since admission, but clearly remains very substantial. 02/12: medical plan for cortisol and echo reviewed. midodrine stays at 5 TID. DC ativan and start klonopin 0.54 BID for ease of administration for long-term outpatient use. will need PA for clomipramine prior to discharge. anxiety remains improved, appears less anxious, more visible, and more affectively expressive to staff. continue current mgmt. 02/13: anxious but improved. continue current mgmt. 02/14: echo WNL, HDL; starting lipitor. less anxious than at admission. using PRN zyprexa for anxiety. midodrine dosing increased to 10 TID. otherwise continue current mgmt. 02/15: no change in condition or mgmt. 02/16: morning fear resolves after morning meds. continue current mgmt. 02/17 improved in mood, more future oriented, still wants to return home. can add buspar- if no therapeutic benefit or significant improvement, will d/c 02/18 continue tx. 02/19 anxiety stable although residual symptoms present and expected. chest xray showed mild interstitial edema. consult to pulmonology. 02/20 continue tx. Reason for continued inpatient stay Substantial Risk for: inability to function Time Spent With Patient Time: Total time managing care of this patient today ____ minutes.
[2025-02-20 17:42] VITALS: BP 109/59
[2025-02-20 19:35] VITALS: BP 119/56; PULSE 62; RESP 18; TEMP 36.2; O2SAT 93
[2025-02-21 09:31] VITALS: BP 118/56; PULSE 96; RESP 18; TEMP 36.3; O2SAT 96
[2025-02-21] MEDS: clonazePAM ODT 0.5 MG TAB.RAPDIS PO ×2 (09:45→20:31)
[2025-02-21] MEDS: guaiFENesin LA 600 MG TAB.ER.12H PO ×2 (09:45→20:31)
[2025-02-21] MEDS: Throat Lozenge, Medicated LOZENGE 1 LOZENGE MUCOUS MEM (09:46)
[2025-02-21 11:27] LABS: Chlamydia pneumoniae PCR Not Detected (Not Detect.); Coronavirus 229E PCR Not Detected (Not Detect.); Coronavirus HKU1 PCR Not Detected (Not Detect.); Coronavirus NL63 PCR Not Detected (Not Detect.); Coronavirus OC43 PCR Not Detected (Not Detect.); RSV PCR Not Detected (Not Detect.); Rhino/Enterovirus PCR Not Detected (Not Detect.)
[2025-02-21 11:46] LABS: SARS-CoV-2 PCR Not Detected (Not Detect.)
[2025-02-21 11:47] LABS: Influenza A H1 PCR Not Detected (Not Detect.); Influenza A H1-2009 PCR Not Detected (Not Detect.); Influenza A H3 PCR Not Detected (Not Detect.)
[2025-02-21 13:30] VITALS: BP 84/56; PULSE 70
--- NOTE | 2025-02-21 16:19 | P.PNPSI_ITS ---
Subjective Subjective Date of Service: 02/21/25 Reason For Visit: SI Subjective Notes: Conditional Voluntary Interim History: Pt slept through the night. future oriented and overall visible on the unit and attending groups. No SI/HI. VS orthostatic but stable. denies dizziness. No VH/AH. No delusions. Review of Systems Review of Systems Constitutional: Denies fatigue and Denies fever(s) Cardiovascular: Denies chest pain and Denies dyspnea Respiratory: Denies dyspnea Gastrointestinal: Denies abdominal pain Psychiatric: denies suicidal ideation Endocrine: Denies fatigue Yes all other systems are reviewed and are negative Constitutional: Reports chills, Denies difficulty sleeping, Reports fatigue and Denies fever(s) Eyes: Reports as per HPI Reports system reviewed and no additional complaints, except as documented and Reports Normal hearing present Cardiovascular: Denies chest pain, Denies chest pain at rest, Denies chest pain with activity, Reports diaphoresis (at night), Denies syncope, Denies irregular heart rhythm and Denies dyspnea Respiratory: Denies dyspnea Gastrointestinal: Denies abdominal pain, Reports constipation (mild), Denies dyspepsia, Denies heartburn, Denies fecal incontinence, Denies loose stools, Denies vomiting and Denies hematemesis Genitourinary: Denies hematuria and Denies difficulty urinating Musculoskeletal: Denies abnormal gait, Denies back pain and Reports muscle weakness (arms, thighs) Skin/Breast: Reports system reviewed and no additional complaints, except as docu Reports Normal hearing present, Denies Neuro-related abnormal movements, Denies abnormal gait, Denies confusion, Denies syncope and Denies seizure-like activity Psychiatric: Denies abnormal sleep pattern, Reports anxiety, Denies change in appetite, Denies confusion, Reports depression, Denies auditory hallucinations, Reports hopelessness, Reports anhedonia, Reports panic attacks (1-2 times a week), Denies hallucinations, Denies tactile hallucinations, Denies homicidal ideation and Reports suicidal ideation (denies plan or intent) Endocrine: Reports fatigue Hematologic/Lymphatic: Reports no additional hematologic/lymphatic complaints Allergic/Immunologic: Reports no additional allergic/immunologic complaints Mental Status Exam Mental Status Exam Narrative: Appearance: adequate hygiene, appears anxious Behavior: cooperative. psychomotor: resting, WNL Speech: clear, normal rate/rhythm/volume, spontaneous Thought process: linear Thought content: no signs of psychosis, anxious Mood: anxious Affect: constricted, hyper-intense, non-labile SI: none expressed HI: none expressed VH/AH: none expressed Delusions: none expressed Insight/judgment:fair x 2. Memory/cog: alert, oriented x3. Diagnostics Vital Signs (24Hr): Vital Signs - 24 hr 02/20/25 17:42 02/20/25 19:35 02/21/25 09:31 Temperature 97.2 F 97.3 F Pulse Rate 62 96 Respiratory Rate 18 18 Blood Pressure 109/59 L 119/56 L 118/56 L Pulse Oximetry 93 96 Oxygen Delivery Method Room Air Room Air 02/21/25 13:30 Temperature Pulse Rate 70 Respiratory Rate Blood Pressure 84/56 L Pulse Oximetry Oxygen Delivery Method BMI result Body Mass Index 27.4 Labs 02/19/25 16:00 02/19/25 16:01 Labs: Laboratory Results - last 48 hr 02/19/25 02/19/25 02/20/25 16:01 16:15 11:53 Sodium 141 Potassium 4.7 Chloride 109 H Carbon Dioxide 25 Anion Gap 12 BUN 14 Creatinine 0.76 Estim Creat Clear Calc 73.2 Estimated GFR > 60 Random Glucose 79 Calcium 8.8 NT-Pro-B Natriuret Pep 341.8 H Procalcitonin 0.08 Rheumatoid Factor < 13.0 Respiratory Panel Za[place]en Adenovirus (Rapid PCR) B.pert (TEM-PCR) B.parapertussis DNA PCR C. pneumoniae DNA (PCR) Coronavirus OC43 (PCR) Coronavirus HKU1 (PCR) Coronavirus 229E (PCR) Coronavirus NL63 (PCR) Human Metapneumovir PCR Influenza A (RT-PCR) Influenza A (H1) PCR Influ A (/) PCR Influenza A (H3) PCR Influenza Type A (PCR) NEGATIVE Influenza B (RT-PCR) Influenza Type B (PCR) NEGATIVE M. pneumoniae (PCR) Parainfluenza 1 (PCR) Parainfluenza 2 (PCR) Parainfluenza 3 (PCR) Parainfluenza 4 (PCR) RSV (PCR) RSV RNA Qual (PCR) NEGATIVE Entero/Rhino (PCR) SARS-CoV-2 RNA (RT-PCR) NEGATIVE 02/21/25 10:15 Sodium Potassium Chloride Carbon Dioxide Anion Gap BUN Creatinine Estim Creat Clear Calc Estimated GFR Random Glucose Calcium NT-Pro-B Natriuret Pep Procalcitonin Rheumatoid Factor Respiratory Panel Zapien See Note Adenovirus (Rapid PCR) Not Detected B.pert (TEM-PCR) Not Detected B.parapertussis DNA PCR Not Detected C. pneumoniae DNA (PCR) Not Detected Coronavirus OC43 (PCR) Not Detected Coronavirus HKU1 (PCR) Not Detected Coronavirus 229E (PCR) Not Detected Coronavirus NL63 (PCR) Not Detected Human Metapneumovir PCR Not Detected Influenza A (RT-PCR) Not Detected Influenza A (H1) PCR Not Detected Influ A (H1/09) PCR Not Detected Influenza A (H3) PCR Not Detected Influenza Type A (PCR) Influenza B (RT-PCR) Not Detected Influenza Type B (PCR) M. pneumoniae (PCR) Not Detected Parainfluenza 1 (PCR) Not Detected Parainfluenza 2 (PCR) Not Detected Parainfluenza 3 (PCR) Not Detected Parainfluenza 4 (PCR) Not Detected RSV (PCR) Not Detected RSV RNA Qual (PCR) Entero/Rhino (PCR) Not Detected SARS-CoV-2 RNA (RT-PCR) Not Detected Imaging Radiology Impressions: ITS Impressions Chest X-Ray 02/19/25 15:05 IMPRESSION: Mild interstitial edema and probably small volume right-sided pleural effusion. Scoliosis and spondylosis, thoracolumbar spine. Electronically signed by: Darius Penn MD 02/19/2025 03:43 PM EDT RP Chest CT 02/20/25 16:31 IMPRESSION: Acute on chronic airspace disease. Nonspecific noncalcified pulmonary nodules. Inflammatory versus infectious processes should be considered. Neoplasm cannot be excluded. Pulmonary granulomata. Fleischner guidelines were followed. Electronically signed by: Darius Penn MD 02/21/2025 07:26 AM EDT RP Medications Medications Current Medications Acetaminophen (Acetaminophen 325 Mg Tablet) 650 mg PO Q6H PRN PRN Reason: Headache/Pain, Scale 1-10 Last Admin: 02/19/25 09:10 Dose: 650 mg Al Hydroxide/Mg Hydroxide (Magnesium Hydrox/Alum Hydrox 30 Ml Oral.Susp) 30 ml PO Q6H PRN PRN Reason: Heartburn/Nausea Atorvastatin Calcium (Atorvastatin Calcium 10 Mg Tablet) 10 mg PO BEDTIME [facility] Last Admin: 02/20/25 20:19 Dose: 10 mg Benzocaine (Throat Lozenge, Medicated Lozenge) 1 lozenge MUCOUS MEM Q1H PRN PRN Reason: Sore Throat Last Admin: 02/21/25 09:46 Dose: 1 lozenge Buspirone HCl (Buspirone Hcl 10 Mg Tablet) 10 mg PO TID [facility] Last Admin: 02/21/25 15:11 Dose: 10 mg Clomipramine HCl (Clomipramine Hcl 25 Mg Capsule) 50 mg PO BEDTIME [facility] Last Admin: 02/20/25 20:20 Dose: 50 mg Clonazepam (Clonazepam Odt 0.5 Mg Tab.Rapdis) 0.5 mg PO BID [facility] Last Admin: 02/21/25 09:45 Dose: 0.5 mg Famotidine (Famotidine 20 Mg Tablet) 20 mg PO DAILY [facility] Last Admin: 02/21/25 09:47 Dose: 20 mg Guaifenesin (Guaifenesin La 600 Mg Tab.Er.12h) 600 mg PO BID [facility] Last Admin: 02/21/25 09:45 Dose: 600 mg Guaifenesin (Guaifenesin [place] 600 Mg Tab.Er.12h) 600 mg PO BID [facility] Stop: 02/24/25 20:59 Last Admin: 02/21/25 10:11 Dose: Not Given Hydroxyzine HCl (Hydroxyzine Hcl 25 Mg Tablet) 25 mg PO Q6H PRN PRN Reason: mild anxiety Last Admin: 02/19/25 13:40 Dose: 25 mg [place] Carbonate ([place] Carbonate 300 Mg Tablet) 150 mg PO BID [facility] Last Admin: 02/21/25 09:45 Dose: 150 mg Magnesium Hydroxide (Milk Of Magnesia 30 Ml Oral.Susp) 30 ml PO DAILY PRN PRN Reason: Constipation Midodrine (Midodrine Hcl 10 Mg Tablet) 10 mg PO TID@0900,1300,1700 [facility] Last Admin: 02/21/25 13:36 Dose: 10 mg Olanzapine (Olanzapine 2.5 Mg Tablet) 2.5 mg PO TID [facility] Last Admin: 02/21/25 15:11 Dose: 2.5 mg Olanzapine (Olanzapine 2.5 Mg Tablet) 2.5 mg PO BID PRN PRN Reason: severe anxiety Last Admin: 02/14/25 12:30 Dose: 2.5 mg Omeprazole (Omeprazole 20 Mg Capsule.Dr) 20 mg PO DAILY@0630 [facility] Last Admin: 02/21/25 05:40 Dose: 20 mg Sertraline HCl (Sertraline Hcl 100 Mg Tablet) 100 mg PO DAILY [facility] Last Admin: 02/21/25 09:47 Dose: 100 mg Trazodone HCl (Trazodone Hcl 50 Mg Tablet) 50 mg PO BEDTIME MRX1 PRN PRN Reason: Insomnia Zolpidem Tartrate (Zolpidem Tartrate 5 Mg Tablet) 5 mg PO BEDTIME PRN PRN Reason: Insomnia Last Admin: 02/20/25 20:49 Dose: 5 mg Allergies Allergies Allergy/AdvReac Type Severity Reaction Status Date / Time ciprofloxacin (From CIPRO) Allergy Unknown DIARRHEA Verified 01/14/25 15:28 Morpholine Analogues Allergy Unknown Unknown Verified 01/14/25 15:28 amoxicillin Allergy Nausea Verified 01/14/25 15:28 meperidine Allergy Unknown Verified 01/14/25 15:28 pollen extracts Allergy Unknown Verified 01/14/25 15:28 Assessment & Plan Assessment & Plan (1) Generalized anxiety disorder with panic attacks: Status: Acute Code(s): F41.1 - Generalized anxiety disorder; F41.0 - Panic disorder [episodic paroxysmal anxiety] (2) MDD (major depressive disorder), recurrent episode, moderate: Status: Acute Code(s): F33.1 - Major depressive disorder, recurrent, moderate (3) Orthostatic hypotension: Status: Inactive Code(s): I95.1 - Orthostatic hypotension Assessment and Plan: Depression/suicidal ideation Continue treatment plan per Psychiatry Orthostatic hypotension Recommend avoiding any sedative meds Last EKG with normal sinus rhythm. ECHO WNL, Cortisol level normal. Increase Midodrine to 10 mg t.i.d Hyperlipidemia Current ASCVD risk 18.2% We will start atorvastatin 10 mg at HS Baseline liver panel prior to initiation Thank you for allowing me to participate in the care of this patient. Will follow as needed, please notify medical provider with any changes in condition or concerns. (4) Dependent personality disorder: Status: Acute Code(s): F60.7 - Dependent personality disorder Plan 02/05: EKG reassuring. start clomipramine 25 mg QHS. continue zyprexa 2.5 TID. 02/06: increase clomipramine to 50 mg starting tomorrow night. add zyhprexa 2.5 mg PRN BID for anxiety. ECT Hx D/W andrzej; Hx is not strongly supportive of its utility for this patient. T/C selegiline or spravato. 02/07 continue tx. 02/08: continue current management and treatment plan. 02/09: continue current management and treatment plan. 02/10: anxiety improved under current plan. adjust midodrine dosing times so pt gets all three doses - has been going to sleep prior to third dose. otherwise continue current mgmt. some lightheadedness, but BPs stable. 02/11: BPs lower than prior. hospitalist requested to review BPs and midodrine regimen in light of restarting clomipramine and increase c/o wooziness. anxiety improved since admission, but clearly remains very substantial. 02/12: medical plan for cortisol and echo reviewed. midodrine stays at 5 TID. DC ativan and start klonopin 0.54 BID for ease of administration for long-term outpatient use. will need PA for clomipramine prior to discharge. anxiety remains improved, appears less anxious, more visible, and more affectively expressive to staff. continue current mgmt. 02/13: anxious but improved. continue current mgmt. 02/14: echo WNL, HDL; starting lipitor. less anxious than at admission. using PRN zyprexa for anxiety. midodrine dosing increased to 10 TID. otherwise continue current mgmt. 02/15: no change in condition or mgmt. 02/16: morning fear resolves after morning meds. continue current mgmt. 02/17 improved in mood, more future oriented, still wants to return home. can add buspar- if no therapeutic benefit or significant improvement, will d/c 02/18 continue tx. 02/19 anxiety stable although residual symptoms present and expected. chest xray showed mild interstitial edema. consult to pulmonology. 02/20 continue tx. 02/21 continue tx. Reason for continued inpatient stay Substantial Risk for: inability to function Time Spent With Patient Time: Total time managing care of this patient today ____ minutes.
[2025-02-21 16:25] VITALS: BP 110/55; PULSE 63
[2025-02-21 20:00] VITALS: BP 92/84; PULSE 64; RESP 16; TEMP 36.7; O2SAT 95
[2025-02-22 08:00] VITALS: BP 117/54; PULSE 66; RESP 17; TEMP 36.3; O2SAT 96
[2025-02-22 08:33] VITALS: BP 117/54
[2025-02-22] MEDS: guaiFENesin LA 600 MG TAB.ER.12H PO ×2 (08:33→20:39)
[2025-02-22] MEDS: clonazePAM ODT 0.5 MG TAB.RAPDIS PO ×2 (08:35→20:37)
--- NOTE | 2025-02-22 10:59 | PM.CNPUL ---
History of Present Illness History of Present Illness Consult date: 02/22/25 Chief complaint: SI Narrative: This is an inpatient pulmonary consultation. The patient is a 74-year-old individual with a history of mood disorder and granulomatous with polyangiitis. Apparently the patient was treated back in 2007 [place] for the vasculitis requiring high doses of prednisone and also Rituxan. He ultimately went remission. His course was complicated by tracheal stenosis where he sometimes requires dilation. He is now admitted in the [facility] for his ongoing psychiatric issues. The patient has been coughing now for the last week. It is a productive cough with greenish brown phlegm. He did have a chest x-ray which I personally reviewed which was abnormal with hazy opacities in the left hemithorax and ultimately underwent a CT scan of the chest. I also reviewed the CT scan of the chest that he had demonstrating interstitial changes primarily in the left hemithorax. I did compared to a CT scan that he had in September 2024 which was very similar in appearance. This is consistent with a history of interstitial lung disease from the vasculitis. It appears to be just sequela of disease. His current cough is consistent with bronchitis and likely not related to his previous history vasculitis. Will go ahead and request blood work including p-ANCA and C ANCA. The patient will start antibiotic therapy and cough expectorate at this time. If the patient is able to provide a sputum culture that will be also helpful. An order will be placed. Review of Systems Review of Systems: Denies any shortness of breath, chest pain, palpitations, dizziness, lightheadedness, headaches, dysuria, abdominal pain or discomfort, nausea, vomiting or diarrhea. Denies Chills, body aches, muscle aches, fatigue or weight loss. Constitutional: Constitutional: Reports chills, Denies difficulty sleeping, Reports fatigue and Denies fever(s) Eyes: Eyes: Reports as per HPI ENT: Reports system reviewed and no additional complaints, except as documented and Reports Normal hearing present Cardiovascular: Cardiovascular: Denies chest pain, Denies chest pain at rest, Denies chest pain with activity, Reports diaphoresis (at night), Denies syncope, Denies irregular heart rhythm and Denies dyspnea Respiratory: Respiratory: Denies dyspnea Gastrointestinal: Gastrointestinal: Denies abdominal pain, Reports constipation (mild), Denies dyspepsia, Denies heartburn, Denies fecal incontinence, Denies loose stools, Denies vomiting and Denies hematemesis Genitourinary: Genitourinary: Denies hematuria and Denies difficulty urinating Musculoskeletal: Musculoskeletal: Denies abnormal gait, Denies back pain and Reports muscle weakness (arms, thighs) Integumentary/Breasts: Skin/Breast: Reports system reviewed and no additional complaints, except as docu Neurologic: Reports Normal hearing present, Denies Neuro-related abnormal movements, Denies abnormal gait, Denies confusion, Denies syncope and Denies seizure-like activity Psychiatric: Psychiatric: Denies abnormal sleep pattern, Reports anxiety, Denies change in appetite, Denies confusion, Reports depression, Denies auditory hallucinations, Reports hopelessness, Reports anhedonia, Reports panic attacks (1-2 times a week), Denies hallucinations, Denies tactile hallucinations, Denies homicidal ideation and Reports suicidal ideation (denies plan or intent) Endocrine: Endocrine: Reports fatigue Hematologic/Lymphatic: Hematologic/Lymphatic: Reports no additional hematologic/lymphatic complaints Allergic/Immunologic: Allergic/Immunologic: Reports no additional allergic/immunologic complaints [facility] Past Medical History Medical History (Updated 02/22/25 @ 11:03 by Howard Melendez MD) History of vasculitis ILD (interstitial lung disease) Panic attacks Major neurocognitive disorder Hospital discharge follow-up Orthostatic hypotension Personality disorder Depression, major, severe recurrence Transgender Hard of hearing Tracheal stenosis Family History Family History Father Heart disease Social History Social History Household Members: None Housing: House Do you presently have visiting nurse or other home services: No Alcohol intake: current Alcohol intake frequency: does not drink Patient Tobacco Use Status: Former Tobacco user e-Cigarette/Vaping Use: Never Used Second Hand Smoke Exposure: No Advance Directives Date on File: 12/14/24 service: No Current occupational status: retired Sexual orientation: Transsexual Cognitive needs: No Hearing needs: No Vision needs: Yes (rx glasses) Meds Allergies Allergy/AdvReac Type Severity Reaction Status Date / Time ciprofloxacin (From CIPRO) Allergy Unknown DIARRHEA Verified 01/14/25 15:28 Morpholine Analogues Allergy Unknown Unknown Verified 01/14/25 15:28 amoxicillin Allergy Nausea Verified 01/14/25 15:28 meperidine Allergy Unknown Verified 01/14/25 15:28 pollen extracts Allergy Unknown Verified 01/14/25 15:28 Active Medications: Current Medications Acetaminophen (Acetaminophen 325 Mg Tablet) 650 mg PO Q6H PRN PRN Reason: Headache/Pain, Scale 1-10 Last Admin: 02/19/25 09:10 Dose: 650 mg Al Hydroxide/Mg Hydroxide (Magnesium Hydrox/Alum Hydrox 30 Ml Oral.Susp) 30 ml PO Q6H PRN PRN Reason: Heartburn/Nausea Atorvastatin Calcium (Atorvastatin Calcium 10 Mg Tablet) 10 mg PO BEDTIME [facility] Last Admin: 02/21/25 20:31 Dose: 10 mg Benzocaine (Throat Lozenge, Medicated Lozenge) 1 lozenge MUCOUS MEM Q1H PRN PRN Reason: Sore Throat Last Admin: 02/21/25 09:46 Dose: 1 lozenge Buspirone HCl (Buspirone Hcl 10 Mg Tablet) 10 mg PO TID [facility] Last Admin: 02/22/25 08:35 Dose: 10 mg Clomipramine HCl (Clomipramine Hcl 25 Mg Capsule) 50 mg PO BEDTIME [facility] Last Admin: 02/21/25 20:31 Dose: 50 mg Clonazepam (Clonazepam Odt 0.5 Mg Tab.Rapdis) 0.5 mg PO BID [facility] Last Admin: 02/22/25 08:35 Dose: 0.5 mg Famotidine (Famotidine 20 Mg Tablet) 20 mg PO DAILY [facility] Last Admin: 02/22/25 08:32 Dose: 20 mg Guaifenesin (Guaifenesin La 600 Mg Tab.Er.12h) 600 mg PO BID [facility] Last Admin: 02/22/25 08:33 Dose: 600 mg Guaifenesin (Guaifenesin La 600 Mg Tab.Er.12h) 600 mg PO BID [facility] Stop: 02/24/25 20:59 Last Admin: 02/22/25 08:36 Dose: Not Given Hydroxyzine HCl (Hydroxyzine Hcl 25 Mg Tablet) 25 mg PO Q6H PRN PRN Reason: mild anxiety Last Admin: 02/19/25 13:40 Dose: 25 mg [place] Carbonate ([place] Carbonate 300 Mg Tablet) 150 mg PO BID [facility] Last Admin: 02/22/25 08:32 Dose: 150 mg Magnesium Hydroxide (Milk Of Magnesia 30 Ml Oral.Susp) 30 ml PO DAILY PRN PRN Reason: Constipation Midodrine (Midodrine Hcl 10 Mg Tablet) 10 mg PO TID@0900,1300,1700 [facility] Last Admin: 02/22/25 08:33 Dose: 10 mg Olanzapine (Olanzapine 2.5 Mg Tablet) 2.5 mg PO TID [facility] Last Admin: 02/22/25 08:35 Dose: 2.5 mg Olanzapine (Olanzapine 2.5 Mg Tablet) 2.5 mg PO BID PRN PRN Reason: severe anxiety Last Admin: 02/14/25 12:30 Dose: 2.5 mg Omeprazole (Omeprazole 20 Mg Capsule.Dr) 20 mg PO DAILY@0630 [facility] Last Admin: 02/22/25 05:33 Dose: 20 mg Sertraline HCl (Sertraline Hcl 100 Mg Tablet) 100 mg PO DAILY [facility] Last Admin: 02/22/25 08:35 Dose: 100 mg Trazodone HCl (Trazodone Hcl 50 Mg Tablet) 50 mg PO BEDTIME MRX1 PRN PRN Reason: Insomnia Zolpidem Tartrate (Zolpidem Tartrate 5 Mg Tablet) 5 mg PO BEDTIME PRN PRN Reason: Insomnia Last Admin: 02/21/25 20:30 Dose: 5 mg Physical Exam Exam: Exam: CONST: Alert and oriented, in NAD. Well nourished HEENT: Normocephalic, atraumatic, MMM, Eyes clear, Neck supple RESP: Lungs clear, RRR even and regular HEART:,RRR, S1, S2. No edema GI:Abdomen Soft NT, ND. + BS times four :Deferred SKIN: Warm dry and intact, no visible lesions or rashes NEURO:CN II-XII Intact bilaterally, Sensation intact. Speech clear. Gait steady PSYCH: Normal affect Vital Signs: Vital Signs: Last Vital Signs Temp 97.3 F 02/22/25 08:00 Pulse 66 02/22/25 08:00 Resp 17 02/22/25 08:00 BP 117/54 L 02/22/25 08:33 Pulse Ox 96 02/22/25 08:00 O2 Del Method Room Air 02/22/25 08:00 BMI result Body Mass Index 27.4 Const: General: No confusion Orientation/consciousness: No confusion Neuro: General: No confusion Cranial nerves: Yes Normal hearing present Results Laboratory Findings 02/19/25 16:00 02/19/25 16:01 Abnormal lab findings: Abnormal Labs 02/02/25 02/03/25 02/04/25 20:39 08:13 07:55 RBC Hgb Hct RDW Immature Gran % (Auto) Lymph % (Auto) [place] % (Auto) Abs Immat Gran (auto) Chloride 110 H Carbon Dioxide 20 L Anion Gap Random Glucose 117 H NT-Pro-B Natriuret Pep Total Protein 6.1 L Triglycerides 225 H 209 H Cholesterol 245 H 240 H LDL Cholesterol, Calc 161 H 160 H HDL Cholesterol 39 L 39 L [place] 0.18 L 02/14/25 02/19/25 02/19/25 13:37 16:00 16:01 RBC 3.47 L Hgb 10.1 L Hct 31.2 L RDW 16.4 H Immature Gran % (Auto) 0.7 H Lymph % (Auto) 17.9 L [place] % (Auto) 13.6 H Abs Immat Gran (auto) 0.06 H Chloride 111 H 109 H Carbon Dioxide Anion Gap 10 L Random Glucose NT-Pro-B Natriuret Pep 341.8 H Total Protein 6.1 L Triglycerides Cholesterol LDL Cholesterol, Calc HDL Cholesterol [place] Assessment and Plan (1) Bronchitis: Status: Acute (2) ILD (interstitial lung disease): Status: Acute (3) Tracheal stenosis: Status: Acute (4) History of vasculitis: Status: Acute Plan sputum culture Bloodwork Sputum culture Start Doxycycline (multiple Abx sensitivities) Procedures Date of Service Date of Service: 02/22/25
[2025-02-22 13:21] VITALS: BP 117/58
--- NOTE | 2025-02-22 13:42 | HO.PSYCHPN ---
Subjective Subjective Date of Service: 02/22/25 Reason For Visit: SI Subjective Notes: Conditional Voluntary Interim History: Medical record and nursing notes reviewed; case discussed during rounds with team/nursing staff, and met with patient for supportive therapy/psychoeducation, as well as medication management. Meet with patient in his room, came back to bed resting after lunch. Report he is taking ABT for lung condition. Denies pain, chest pain or cough or congestion. Report anxiety an 12/29 but denies depression. Denies safety concerns. Report he is leaving on Monday. Slept for 8 hours, no issue with appetite and medication compliant. Medication Compliance: Yes Side effects from medications: No Attending Groups: Intermittent Review of Systems Acute medical concerns: No Medical Review of Systems: unchanged Review of Systems Review of Systems Constitutional: Denies fatigue and Denies fever(s) Cardiovascular: Denies chest pain and Denies dyspnea Respiratory: Denies dyspnea Gastrointestinal: Denies abdominal pain Psychiatric: denies suicidal ideation Endocrine: Denies fatigue Yes all other systems are reviewed and are negative Mental Status Exam Mental Status Exam Narrative: Appearance: adequate hygiene, appears anxious Behavior: cooperative. psychomotor: resting, WNL Speech: clear, normal rate/rhythm/volume, spontaneous Thought process: linear Thought content: no signs of psychosis, anxious Mood: anxious Affect: constricted, hyper-intense, non-labile SI: none expressed HI: none expressed VH/AH: none expressed Delusions: none expressed Insight/judgment:fair x 2. Memory/cog: alert, oriented x3. Diagnostics Vital Signs (24Hr): Vital Signs - 24 hr 02/21/25 16:25 02/21/25 20:00 02/22/25 08:00 Temperature 98.1 F 97.3 F Pulse Rate 63 64 66 Respiratory Rate 16 17 Blood Pressure 110/55 L 92/84 117/54 L Pulse Oximetry 95 96 Oxygen Delivery Method Room Air Room Air 02/22/25 08:33 02/22/25 13:21 Temperature Pulse Rate Respiratory Rate Blood Pressure 117/54 L 117/58 L Pulse Oximetry Oxygen Delivery Method BMI result Body Mass Index 27.4 Labs 02/19/25 16:00 02/19/25 16:01 Labs: Laboratory Results - last 48 hr 02/21/25 10:15 Respiratory Panel [place] See Note Adenovirus (Rapid PCR) Not Detected B.pert (TEM-PCR) Not Detected B.parapertussis DNA PCR Not Detected C. pneumoniae DNA (PCR) Not Detected Coronavirus OC43 (PCR) Not Detected Coronavirus HKU1 (PCR) Not Detected Coronavirus 229E (PCR) Not Detected Coronavirus NL63 (PCR) Not Detected Human Metapneumovir PCR Not Detected Influenza A (RT-PCR) Not Detected Influenza A (H1) PCR Not Detected Influ A (H1/09) PCR Not Detected Influenza A (H3) PCR Not Detected Influenza B (RT-PCR) Not Detected M. pneumoniae (PCR) Not Detected Parainfluenza 1 (PCR) Not Detected Parainfluenza 2 (PCR) Not Detected Parainfluenza 3 (PCR) Not Detected Parainfluenza 4 (PCR) Not Detected RSV (PCR) Not Detected Entero/Rhino (PCR) Not Detected SARS-CoV-2 RNA (RT-PCR) Not Detected Imaging Radiology Impressions: ITS Impressions Chest X-Ray 02/19/25 15:05 IMPRESSION: Mild interstitial edema and probably small volume right-sided pleural effusion. Scoliosis and spondylosis, thoracolumbar spine. Electronically signed by: Darius Penn MD 02/19/2025 03:43 PM EDT RP Chest CT 02/20/25 16:31 IMPRESSION: Acute on chronic airspace disease. Nonspecific noncalcified pulmonary nodules. Inflammatory versus infectious processes should be considered. Neoplasm cannot be excluded. Pulmonary granulomata. Fleischner guidelines were followed. Electronically signed by: Darius Penn MD 02/21/2025 07:26 AM EDT RP Medications Medications Current Medications Acetaminophen (Acetaminophen 325 Mg Tablet) 650 mg PO Q6H PRN PRN Reason: Headache/Pain, Scale 1-10 Last Admin: 02/19/25 09:10 Dose: 650 mg Al Hydroxide/Mg Hydroxide (Magnesium Hydrox/Alum Hydrox 30 Ml Oral.Susp) 30 ml PO Q6H PRN PRN Reason: Heartburn/Nausea Atorvastatin Calcium (Atorvastatin Calcium 10 Mg Tablet) 10 mg PO BEDTIME [facility] Last Admin: 02/21/25 20:31 Dose: 10 mg Benzocaine (Throat Lozenge, Medicated Lozenge) 1 lozenge MUCOUS MEM Q1H PRN PRN Reason: Sore Throat Last Admin: 02/21/25 09:46 Dose: 1 lozenge Buspirone HCl (Buspirone Hcl 10 Mg Tablet) 10 mg PO TID [facility] Last Admin: 02/22/25 08:35 Dose: 10 mg Clomipramine HCl (Clomipramine Hcl 25 Mg Capsule) 50 mg PO BEDTIME [facility] Last Admin: 02/21/25 20:31 Dose: 50 mg Clonazepam (Clonazepam Odt 0.5 Mg Tab.Rapdis) 0.5 mg PO BID [facility] Last Admin: 02/22/25 08:35 Dose: 0.5 mg Doxycycline Monohydrate (Doxycycline Monohydrate 100 Mg Capsule) 100 mg PO Q12H [facility] Stop: 03/04/25 10:59 Last Admin: 02/22/25 11:59 Dose: 100 mg Famotidine (Famotidine 20 Mg Tablet) 20 mg PO DAILY [facility] Last Admin: 02/22/25 08:32 Dose: 20 mg Guaifenesin (Guaifenesin La 600 Mg Tab.Er.12h) 600 mg PO BID [facility] Last Admin: 02/22/25 08:33 Dose: 600 mg Guaifenesin (Guaifenesin La 600 Mg Tab.Er.12h) 600 mg PO BID [facility] Stop: 02/24/25 20:59 Last Admin: 02/22/25 08:36 Dose: Not Given Hydroxyzine HCl (Hydroxyzine Hcl 25 Mg Tablet) 25 mg PO Q6H PRN PRN Reason: mild anxiety Last Admin: 02/19/25 13:40 Dose: 25 mg [place] Carbonate ([place] Carbonate 300 Mg Tablet) 150 mg PO BID [facility] Last Admin: 02/22/25 08:32 Dose: 150 mg Magnesium Hydroxide (Milk Of Magnesia 30 Ml Oral.Susp) 30 ml PO DAILY PRN PRN Reason: Constipation Midodrine (Midodrine Hcl 10 Mg Tablet) 10 mg PO TID@0900,1300,1700 [facility] Last Admin: 02/22/25 13:21 Dose: 10 mg Olanzapine (Olanzapine 2.5 Mg Tablet) 2.5 mg PO TID [facility] Last Admin: 02/22/25 08:35 Dose: 2.5 mg Olanzapine (Olanzapine 2.5 Mg Tablet) 2.5 mg PO BID PRN PRN Reason: severe anxiety Last Admin: 02/14/25 12:30 Dose: 2.5 mg Omeprazole (Omeprazole 20 Mg Capsule.Dr) 20 mg PO DAILY@0630 [facility] Last Admin: 02/22/25 05:33 Dose: 20 mg Sertraline HCl (Sertraline Hcl 100 Mg Tablet) 100 mg PO DAILY [facility] Last Admin: 02/22/25 08:35 Dose: 100 mg Trazodone HCl (Trazodone Hcl 50 Mg Tablet) 50 mg PO BEDTIME MRX1 PRN PRN Reason: Insomnia Zolpidem Tartrate (Zolpidem Tartrate 5 Mg Tablet) 5 mg PO BEDTIME PRN PRN Reason: Insomnia Last Admin: 02/21/25 20:30 Dose: 5 mg Allergies Allergies Allergy/AdvReac Type Severity Reaction Status Date / Time ciprofloxacin (From CIPRO) Allergy Unknown DIARRHEA Verified 01/14/25 15:28 Morpholine Analogues Allergy Unknown Unknown Verified 01/14/25 15:28 amoxicillin Allergy Nausea Verified 01/14/25 15:28 meperidine Allergy Unknown Verified 01/14/25 15:28 pollen extracts Allergy Unknown Verified 01/14/25 15:28 Assessment & Plan Assessment & Plan (1) Bronchitis: Status: Acute Code(s): J40 - Bronchitis, not specified as acute or chronic (2) ILD (interstitial lung disease): Status: Acute Code(s): J84.9 - Interstitial pulmonary disease, unspecified (3) Tracheal stenosis: Status: Acute Code(s): J39.8 - Other specified diseases of upper respiratory tract (4) History of vasculitis: Status: Acute Code(s): Z86.79 - Personal history of other diseases of the circulatory system Plan sputum culture Bloodwork Sputum culture Start Doxycycline (multiple Abx sensitivities) 02/22/25: Meet with patient in his room, came back to bed resting after lunch. Report he is taking ABT for lung condition. Denies pain, chest pain or cough or congestion. Report anxiety an / but denies depression. Denies safety concerns. Report he is leaving on Monday. Slept for 8 hours, no issue with appetite and medication compliant.Tentative discharge early next week. Patient educated on: medication risk/benefits and therapeutic strategies Reason for continued inpatient stay Substantial Risk for: med/psych decompensation Time Spent With Patient Time: Total time managing care of this patient today ____ minutes.
--- NOTE | 2025-02-22 14:32 | PC.NURSE ---
Sputum cult collected and in labs. Not able to save the collection in the computer.
[2025-02-22 17:12] VITALS: BP 103/65
[2025-02-22 20:00] VITALS: BP 113/58; PULSE 68; RESP 16; TEMP 36.2; O2SAT 93
[2025-02-23 08:00] VITALS: BP 105/63; PULSE 75; RESP 16; TEMP 36.2; O2SAT 94
[2025-02-23 08:10] VITALS: BP 105/63
[2025-02-23] MEDS: clonazePAM ODT 0.5 MG TAB.RAPDIS PO ×2 (08:10→20:15)
[2025-02-23] MEDS: guaiFENesin LA 600 MG TAB.ER.12H PO ×2 (08:10→20:14)
[2025-02-23 13:28] VITALS: BP 106/53
[2025-02-23 17:18] VITALS: BP 122/54
--- NOTE | 2025-02-23 19:24 | HO.PSYCHPN ---
Subjective Subjective Date of Service: 02/23/25 Reason For Visit: SI Subjective Notes: Conditional Voluntary Healthcare Proxy: No Guardianship: No Medical Problems Affecting Mental Status: No Interim History: Medical record and nursing notes reviewed; case discussed during rounds with team/nursing staff, and met with patient for supportive therapy/psychoeducation, as well as medication management. Reports mild anxiety regarding tomorrow discharge back home. Reported that he has been here for about 2 months. Denies other safety concern, slept well, visible, attempts groups, plus fresh air. No behavior issues, continue with antibiotic, reports coughing up mucus, source mild congestion on lungs during assessment. Medication Compliance: Yes Side effects from medications: No Attending Groups: Yes Review of Systems Acute medical concerns: No Medical Review of Systems: unchanged Review of Systems Review of Systems Constitutional: Denies fatigue and Denies fever(s) Cardiovascular: Denies chest pain and Denies dyspnea Respiratory: Denies dyspnea Gastrointestinal: Denies abdominal pain Psychiatric: denies suicidal ideation Endocrine: Denies fatigue Yes all other systems are reviewed and are negative Mental Status Exam Mental Status Exam Narrative: Appearance: adequate hygiene, appears anxious Behavior: cooperative. psychomotor: resting, WNL Speech: clear, normal rate/rhythm/volume, spontaneous Thought process: linear Thought content: no signs of psychosis, anxious Mood: anxious Affect: constricted, hyper-intense, non-labile SI: none expressed HI: none expressed VH/AH: none expressed Delusions: none expressed Insight/judgment:fair x 2. Memory/cog: alert, oriented x3. Diagnostics Vital Signs (24Hr): Vital Signs - 24 hr 02/22/25 20:00 02/23/25 08:00 02/23/25 08:10 Temperature 97.1 F 97.2 F Pulse Rate 68 75 Respiratory Rate 16 16 Blood Pressure 113/58 L 105/63 105/63 Pulse Oximetry 93 94 Oxygen Delivery Method Room Air Room Air 02/23/25 13:28 02/23/25 17:18 Temperature Pulse Rate Respiratory Rate Blood Pressure 106/53 L 122/54 L Pulse Oximetry Oxygen Delivery Method BMI result Body Mass Index 27.4 Labs 02/19/25 16:00 02/19/25 16:01 Imaging Radiology Impressions: ITS Impressions Chest X-Ray 02/19/25 15:05 IMPRESSION: Mild interstitial edema and probably small volume right-sided pleural effusion. Scoliosis and spondylosis, thoracolumbar spine. Electronically signed by: Darius Penn MD 02/19/2025 03:43 PM EDT RP Chest CT 02/20/25 16:31 IMPRESSION: Acute on chronic airspace disease. Nonspecific noncalcified pulmonary nodules. Inflammatory versus infectious processes should be considered. Neoplasm cannot be excluded. Pulmonary granulomata. Fleischner guidelines were followed. Electronically signed by: Darius Penn MD 02/21/2025 07:26 AM EDT RP Medications Medications Current Medications Acetaminophen (Acetaminophen 325 Mg Tablet) 650 mg PO Q6H PRN PRN Reason: Headache/Pain, Scale 1-10 Last Admin: 02/19/25 09:10 Dose: 650 mg Al Hydroxide/Mg Hydroxide (Magnesium Hydrox/Alum Hydrox 30 Ml Oral.Susp) 30 ml PO Q6H PRN PRN Reason: Heartburn/Nausea Atorvastatin Calcium (Atorvastatin Calcium 10 Mg Tablet) 10 mg PO BEDTIME COUNT INCLUDES THE [facility] Last Admin: 02/22/25 20:37 Dose: 10 mg Benzocaine (Throat Lozenge, Medicated Lozenge) 1 lozenge MUCOUS MEM Q1H PRN PRN Reason: Sore Throat Last Admin: 02/21/25 09:46 Dose: 1 lozenge Buspirone HCl (Buspirone Hcl 10 Mg Tablet) 10 mg PO TID COUNT INCLUDES THE [facility] Last Admin: 02/23/25 15:17 Dose: 10 mg Clomipramine HCl (Clomipramine Hcl 25 Mg Capsule) 50 mg PO BEDTIME COUNT INCLUDES THE [facility] Last Admin: 02/22/25 20:39 Dose: 50 mg Clonazepam (Clonazepam Odt 0.5 Mg Tab.Rapdis) 0.5 mg PO BID COUNT INCLUDES THE [facility] Last Admin: 02/23/25 08:10 Dose: 0.5 mg Doxycycline Monohydrate (Doxycycline Monohydrate 100 Mg Capsule) 100 mg PO Q12H COUNT INCLUDES THE [facility] Stop: 03/04/25 10:59 Last Admin: 02/23/25 11:09 Dose: 100 mg Famotidine (Famotidine 20 Mg Tablet) 20 mg PO DAILY COUNT INCLUDES THE [facility] Last Admin: 02/23/25 08:09 Dose: 20 mg Guaifenesin (Guaifenesin La 600 Mg Tab.Er.12h) 600 mg PO BID COUNT INCLUDES THE [facility] Last Admin: 02/23/25 08:10 Dose: 600 mg Guaifenesin (Guaifenesin La 600 Mg Tab.Er.12h) 600 mg PO BID COUNT INCLUDES THE [facility] Stop: 02/24/25 20:59 Last Admin: 02/23/25 08:13 Dose: Not Given Hydroxyzine HCl (Hydroxyzine Hcl 25 Mg Tablet) 25 mg PO Q6H PRN PRN Reason: mild anxiety Last Admin: 02/19/25 13:40 Dose: 25 mg Cumings Carbonate (Cumings Carbonate 300 Mg Tablet) 150 mg PO BID COUNT INCLUDES THE [facility] Last Admin: 02/23/25 08:09 Dose: 150 mg Magnesium Hydroxide (Milk Of Magnesia 30 Ml Oral.Susp) 30 ml PO DAILY PRN PRN Reason: Constipation Midodrine (Midodrine Hcl 10 Mg Tablet) 10 mg PO TID@0900,1300,1700 COUNT INCLUDES THE [facility] Last Admin: 02/23/25 17:18 Dose: 10 mg Olanzapine (Olanzapine 2.5 Mg Tablet) 2.5 mg PO TID COUNT INCLUDES THE [facility] Last Admin: 02/23/25 15:17 Dose: 2.5 mg Olanzapine (Olanzapine 2.5 Mg Tablet) 2.5 mg PO BID PRN PRN Reason: severe anxiety Last Admin: 02/14/25 12:30 Dose: 2.5 mg Omeprazole (Omeprazole 20 Mg Capsule.Dr) 20 mg PO DAILY@0630 COUNT INCLUDES THE [facility] Last Admin: 02/23/25 05:34 Dose: 20 mg Sertraline HCl (Sertraline Hcl 100 Mg Tablet) 100 mg PO DAILY COUNT INCLUDES THE [facility] Last Admin: 02/23/25 08:10 Dose: 100 mg Trazodone HCl (Trazodone Hcl 50 Mg Tablet) 50 mg PO BEDTIME MRX1 PRN PRN Reason: Insomnia Zolpidem Tartrate (Zolpidem Tartrate 5 Mg Tablet) 5 mg PO BEDTIME PRN PRN Reason: Insomnia Last Admin: 02/22/25 20:38 Dose: 5 mg Allergies Allergies Allergy/AdvReac Type Severity Reaction Status Date / Time ciprofloxacin (From CIPRO) Allergy Unknown DIARRHEA Verified 01/14/25 15:28 Morpholine Analogues Allergy Unknown Unknown Verified 01/14/25 15:28 amoxicillin Allergy Nausea Verified 01/14/25 15:28 meperidine Allergy Unknown Verified 01/14/25 15:28 pollen extracts Allergy Unknown Verified 01/14/25 15:28 Assessment & Plan Assessment & Plan (1) Bronchitis: Status: Acute Code(s): J40 - Bronchitis, not specified as acute or chronic (2) ILD (interstitial lung disease): Status: Acute Code(s): J84.9 - Interstitial pulmonary disease, unspecified (3) Tracheal stenosis: Status: Acute Code(s): J39.8 - Other specified diseases of upper respiratory tract (4) History of vasculitis: Status: Acute Code(s): Z86.79 - Personal history of other diseases of the circulatory system Plan sputum culture Bloodwork Sputum culture Start Doxycycline (multiple Abx sensitivities) 02/22/25: Meet with patient in his room, came back to bed resting after lunch. Report he is taking ABT for lung condition. Denies pain, chest pain or cough or congestion. Report anxiety an 12/29 but denies depression. Denies safety concerns. Report he is leaving on Monday. Slept for 8 hours, no issue with appetite and medication compliant.Tentative discharge early next week. 02/23/25: Reports mild anxiety regarding tomorrow discharge back home tomorrow. Reported that he has been here for about 2 months. Denies other safety concern, slept well, visible, attempts groups, plus fresh air. No behavior issues, continue with antibiotic, reports coughing up mucus, source mild congestion on lungs during assessment. Patient educated on: diagnosis, medication risk/benefits and therapeutic strategies Informed Consent: understands Reason for continued inpatient stay Substantial Risk for: med/psych decompensation Time Spent With Patient Time: Total time managing care of this patient today ____ minutes.
[2025-02-23 20:00] VITALS: BP 103/51; PULSE 58; RESP 16; TEMP 36.2; O2SAT 98
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
[2025-02-24 08:15] VITALS: BP 117/61; PULSE 67; RESP 16; TEMP 36.2; O2SAT 98
[2025-02-24] MEDS: guaiFENesin LA 600 MG TAB.ER.12H PO (09:08)
[2025-02-24] MEDS: clonazePAM ODT 0.5 MG TAB.RAPDIS PO (09:08)
[2025-02-24 12:04] LABS: Anti Nuclear Antibody Screen NEGATIVE (NEGATIVE)
[2025-02-24 12:22] VITALS: BP 113/58; PULSE 84
[2025-02-26 17:54] LABS: Proteinase 3 PR3 Antibodies <1.0 AI
[2025-03-03 12:24] LABS: Asperg fumigatus Precip Abs NEGATIVE (NEGATIVE); Micropoly faeni Abs NEGATIVE (NEGATIVE); Saccharo pora viridis Abs NEGATIVE (NEGATIVE); Thermo candidus Abs NEGATIVE (NEGATIVE)
== END 2025-02-24 14:20 | disposition home or self-care (01) | DRG 880 ==
LOC: HO.ED 02:41 → HO.PGERI 04:12
PROVIDERS: Hospitalist; Nurse Practitioner Family; Social Worker; Admitting Provider Psychiatry & Neurology Psychiatry; Emergency Provider Emergency Medicine; Visit Provider Psychiatry & Neurology Psychiatry
DX: F41.1 Generalized anxiety disorder (principal); F60.7 Dependent personality disorder; I95.1 Orthostatic hypotension; I10 Essential (primary) hypertension; F41.0 Panic disorder [episodic paroxysmal anxiety]; F32.9 Major depressive disorder, single episode, unspecified; Z20.822 Contact with and (suspected) exposure to COVID-19; Z79.899 Other long term (current) drug therapy
CPT/HCPCS: 36415; 71045; 71250; 80048; 80053; 80061; 80076; 80178; 82164; 82533; 82785; 83036; 83880; 84145; 84484; 85025; 86021; 86038; 86200; 86331; 86431; 86606; 86609; 87070; 87077; 87186; 87205; 87633; 87637; 93005; 93306; 99282

== ENCOUNTER 2025-02-02 03:58 | Outpatient (BNV) | payer MEDICARE, SELFPAY | END 2025-02-20 16:31 | PROVIDERS: Admitting Provider Psychiatry & Neurology Psychiatry; Emergency Provider Emergency Medicine; Visit Provider Radiology Diagnostic Radiology | DX: R91.1 Solitary pulmonary nodule (principal); R05.9 Cough, unspecified | CPT/HCPCS: 71250 ==

== ENCOUNTER 2025-02-02 03:58 | Outpatient (BNV) | payer MEDICARE, SELFPAY | END 2025-02-12 07:00 | PROVIDERS: Admitting Provider Psychiatry & Neurology Psychiatry; Emergency Provider Emergency Medicine; Visit Provider Internal Medicine Cardiovascular Disease | DX: I51.89 Other ill-defined heart diseases (principal); I36.1 Nonrheumatic tricuspid (valve) insufficiency; I95.9 Hypotension, unspecified | CPT/HCPCS: 93306 ==

== ENCOUNTER 2025-02-02 03:58 | Outpatient (BNV) | payer MEDICARE, SELFPAY | END 2025-02-03 15:02 | PROVIDERS: Admitting Provider Psychiatry & Neurology Psychiatry; Emergency Provider Emergency Medicine; Visit Provider Internal Medicine | DX: Z13.6 Encounter for screening for cardiovascular disorders (principal) | CPT/HCPCS: 93010 ==

== ENCOUNTER 2025-02-02 03:58 | Outpatient (BNV) | payer MEDICARE, SELFPAY | END 2025-02-19 15:05 | PROVIDERS: Admitting Provider Psychiatry & Neurology Psychiatry; Emergency Provider Emergency Medicine; Visit Provider Radiology Diagnostic Radiology | DX: R05.9 Cough, unspecified (principal) | CPT/HCPCS: 71045 ==

== ENCOUNTER → 2025-02-02 03:58 | Outpatient (BNV) | payer MEDICARE, SELFPAY | PROVIDERS: Admitting Provider Psychiatry & Neurology Psychiatry; Emergency Provider Emergency Medicine; Visit Provider Nurse Practitioner Acute Care | DX: I95.1 Orthostatic hypotension (principal) | CPT/HCPCS: 99223; 99231 ==

== ENCOUNTER → 2025-02-02 03:58 | Outpatient (BNV) | payer MEDICARE, SELFPAY | PROVIDERS: Admitting Provider Psychiatry & Neurology Psychiatry; Emergency Provider Emergency Medicine; Visit Provider Hospitalist | DX: J40 Bronchitis, not specified as acute or chronic (principal); J84.9 Interstitial pulmonary disease, unspecified; J39.8 Other specified diseases of upper respiratory tract; Z86.79 Personal history of other diseases of the circulatory system | CPT/HCPCS: 99223 ==

== ENCOUNTER → 2025-02-02 03:58 | Outpatient (BNV) | payer MEDICARE, SELFPAY | PROVIDERS: Admitting Provider Psychiatry & Neurology Psychiatry; Emergency Provider Emergency Medicine; Visit Provider Psychiatry & Neurology Psychiatry | DX: F33.2 Major depressive disorder, recurrent severe without psychotic features (principal); F60.7 Dependent personality disorder; F41.1 Generalized anxiety disorder; F41.0 Panic disorder [episodic paroxysmal anxiety] | CPT/HCPCS: 90792; 99232 ==

== ENCOUNTER → 2025-02-02 03:58 | Outpatient (BNV) | payer MEDICARE, SELFPAY | PROVIDERS: Admitting Provider Psychiatry & Neurology Psychiatry; Emergency Provider Emergency Medicine; Visit Provider Psychiatry & Neurology Psychiatry | DX: F41.0 Panic disorder [episodic paroxysmal anxiety] (principal) | CPT/HCPCS: 99232 ==

== ENCOUNTER → 2025-03-14 09:00 | Outpatient (BNV) | payer MEDICARE, SELFPAY | PROVIDERS: Visit Provider Psychiatry & Neurology Psychiatry | DX: F41.1 Generalized anxiety disorder (principal); F41.0 Panic disorder [episodic paroxysmal anxiety]; F33.1 Major depressive disorder, recurrent, moderate; F60.7 Dependent personality disorder | CPT/HCPCS: 90792; 99213 ==

== ENCOUNTER 2025-03-26 11:00 | Outpatient (RCR) | payer MEDICARE, SELFPAY ==
[2025-03-13 11:02] VITALS: BMI 27.5
[2025-03-13 11:03] VITALS: BP 96/68; PULSE 68; TEMP 36.6
--- NOTE | 2025-03-13 11:46 | PC.ADMIT ---
Patient is a 74 year old single trans-gendered Male who goes by the name of Shalom and uses he/him pronouns. Shalom was referred to [facility] PHP by [facility] inpatient behavioral health unit where he was admitted from 02/02-02/24/25. According to Integrative Assessment patient presented to [facility] after coming from [facility] with increased anxiety with SI and plan. Patient reportedly has a history of many inpatient [facility] hospitalizations and often becomes dependent when hospitalized. Prior to hospitalization patient stated to this television writer, Two things happened I had a therapist for 40 years and she gave me two weeks notice that she was retiring and that devastated me. He was the most important person in my life and all of a sudden she was gone. That happened at the same time that my car needed new engine . Patient stated he needs a new therapist. Patient aware that the clinician assigned to him will be working on getting a new therapist with him. Patient reports hospitalization was helpful and feels the medications are working. Patient is alert and oriented x4. He is calm and cooperative. He presented with depressed mood and affect. He denied SI, no HI. He was given a copy of his safety plan if needed. Medications updated with patient and patient's discharge paperwork from [facility] inpatient unit. Patient reports he takes his medication as prescribed. Stated he uses a pill organizer. Patient reports he has been sober from alcohol for 41 years. Stated he stopped going to AA for about a year and recently started going again with a friend of his who gives him a ride as he does not have a car at this time.
--- NOTE | 2025-03-13 15:20 | HO.PHP ---
Clients case was opened and reviewed in teams.
--- NOTE | 2025-03-14 13:47 | HO.PHP ---
A referral was placed for therapy through [facility]. PHP staff member is awaiting an appointment date and time.
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
--- NOTE | 2025-03-24 15:28 | HO.PHP ---
[facility] staff member followed up with [facility] to gather Lindsey's appointment time and date for therapy. [facility] staff member was informed by Alyson that he is on a waitlist and that his insurance has now stated that they have to do in-person therapy, which is why he was removed off of the telehealth sessions.
--- NOTE | 2025-03-26 11:13 | HO.PHPPROGNO ---
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 through multiple psychiatric hospitalizations, most recently discharged from [facility] over 2 weeks ago after being admitted on to [address] on 01/31/25 for worsening depression and anxiety. He carries a diagnosis of Dependent Personality Disorder, and neurocognitive issues apparently related to a complex medical history including ILD (interstitial lung disease), Granulomatous with polyangiitis, hypotension and tracheostenosis. 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 Treated for bronchitis earlier this month. He reports in the interim he has been ?doing better . He lives alone, but says he feels safe and has been trying to stay busy maintain a routine and doing more to distract myself like reading, watching TV and spending time with friends and one of my neighbors . Denies any acute concerns or issues. Feels his mood is stabilizing, denies feeling depressed. Denies any hopelessness or SI. No AH, VH or HI. Sleep, appetite intact. Energy fair but stable. Has been compliant with treatment and denies any adverse effects from his medications. He denies any alcohol use and states he has been sober for 4 yrs. Denies any urges or cravings to drink. Denies any illicit substance use. He found the PHP quite helpful and is on wait list for therapy is and has not had 1 since her therapist to 40 years retired in May with no referrals. Current medications were reviewed which includes lithium carbonate 150 mg twice a day, Zyprexa 5 mg twice a day, Zoloft 100 mg daily, BuSpar 10 mg t.i.d., clomipramine 50 mg q.h.s.. She denies any side effects. She denies any SI. Medication Compliance: Yes Side effects from medications: No Review of Systems Review of Systems Yes all other systems are reviewed and are negative Mental Status Exam Mental Status Exam Narrative: In today's visit he is alert, oriented and pleasant. Normal speech. Good eye contact. Affect is appropriate and varied. No acute signs of psychosis. No delusions. Cognitively is intact. Moves all limbs. No gait abnormalities. No SI upon inquiry. Judgment is intact Diagnostics Vital Signs (24Hr): BMI result Body Mass Index 27.5 Assessment & Plan Assessment & Plan (1) MDD (major depressive disorder), recurrent episode, moderate: Status: Acute Code(s): F33.1 - Major depressive disorder, recurrent, moderate (2) Generalized anxiety disorder with panic attacks: Status: Acute Code(s): F41.1 - Generalized anxiety disorder; F41.0 - Panic disorder [episodic paroxysmal anxiety] Plan Patient being discharged today. She has enough of her medications and no prescriptions were called in. Certification I certify that partial hospital treatment is medically necessary due to the symptoms and problems resulting from the patient's mental illness and the failure to treat the patient at the partial hospital level of care would likely result in the patient requiring inpatient psychiatric care which could not be prevented at a less intensive level of care. Total time managing care of this patient today ____ minutes. Discharge Plan Discharge Attending provider: Luz Nelson Medications: No Action atorvastatin 10 mg tablet 10 mg PO BEDTIME Qty: 90 3RF famotidine 20 mg tablet 20 mg PO DAILY Qty: 90 3RF olanzapine 5 mg tablet 5 mg PO BID 90 Days Qty: 180 3RF omeprazole 20 mg capsule,delayed release(DR/EC) 20 mg PO DAILY@0630 Qty: 90 3RF sertraline 100 mg tablet 100 mg PO DAILY Qty: 90 3RF zolpidem 5 mg tablet 5 mg PO BEDTIME PRN (Reason: Insomnia) Qty: 90 3RF buspirone 10 mg tablet 10 mg PO TID 90 Days Qty: 270 3RF clomipramine 50 mg capsule 50 mg PO BEDTIME Qty: 90 3RF clonazepam 0.5 mg tablet,disintegrating 0.5 mg PO BID Qty: 60 3RF lithium carbonate 150 mg capsule 150 mg PO BID 90 Days Qty: 180 3RF midodrine 10 mg tablet 10 mg PO TID@0900,1300,1700 90 Days Qty: 270 3RF Stand Alone Forms: Patient Portal Discharge page Print Language: Sen[place]e
== END 2025-03-26 23:59 | disposition home or self-care (01) ==
LOC: HO.PHPA 11:00
PROVIDERS: Visit Provider Psychiatry & Neurology Psychiatry
DX: F41.1 Generalized anxiety disorder (principal); F41.0 Panic disorder [episodic paroxysmal anxiety]; F33.1 Major depressive disorder, recurrent, moderate; F60.7 Dependent personality disorder; F64.0 Transsexualism; Z79.899 Other long term (current) drug therapy
CPT/HCPCS: 90791; 90853

== ENCOUNTER 2025-03-28 13:45 | Outpatient (AMB) | payer MEDICARE, SELFPAY ==
--- OUTSIDE RECORDS SUMMARY | 2015-10-01 23:00 | XMS_ITS | Encounter Summary ---
Author Organization [facility] Address [address] [place] [address] Phone Care Team Providers Care Frozen Yogurt Maker Name Role Phone Scott Quiroz MD Primary Care Provider [phone] Hernan Arzola MD Unavailable [facility] [email or web address] [email or web address] Hoang Mitchell MD Unavailable [phone] Encounter Details Date Type Department Care Team (Late st Contact Info) Description 10/02/2015 Hospital Encounter [facility] [address] [place] [address] Teddy Alas MD 55 [facility] [address] [place] [address] [email or web address] Social History Tobacco Use Types [...] 01/31/2025 10:22 AM Inderjit Anand RN * [place] Suicide Severity Rating Scale (Screener/Recent Self-Report) Question [...] Behavior (3 Months) No 10:22 AM Lurdes Anadn RN documented as of this encounter Plan of Treatment Not on file documented as of this encounter Procedures Procedure Name Priority Date/Time Associated Diagnosis Comments XR HEAD OUTSIDE (NO INTERPRETATION) Routine 10/02/2015 12:00 AM EDT documented in this encounter Results * XR Head Outside (No Interpretation) (10/02/2015 12:00 AM EDT) Narrative [facility] IMG INTERFACES - 10/06/2015 10:46 AM EDT This study is for PACS storage only and not for interpretation. Procedure Note SYSTEMGENERATED, DOCUMENTATION - 10/06/2015 This study is for PACS storage only and not for interpretation. us Teddy Alas MD IMG OUTSIDE IMAGING W/ OUT INTERPRETATION Final Result [facility] IMG INTERFACES documented in this encounter Visit Diagnoses Not on filedocumented in this encounter Additional Health Concerns Infection Onset Date Last Indicated Resolved Time CoV-Risk 03/04/2021 03/04/2021 03/14/2021 1:22 AM EDT documented as of this encounter Care Teams Frozen Yogurt Maker Relationship Specialty Start Date End Date Scott Quiroz MD [address] [place] [phone] [email or web address] memorial [email or web address] PCP - General 11/19/13 04/09/17 Hernan Arzola MD [email or web address] .[facility] Internal Medicine 10/02/15 10/20/20 Hoang Mitchell MD [address] [place] [address] Suite [facility]_[place] [address] [email or web address] Consulting Provider Rheumatology 10/02/15 documented as of this encounter Additional Source Comments The information contained in this document represents components of the legal health record. It is not the complete legal health record.[facility]
--- NOTE | 2025-03-28 14:03 | MHC.PC.OV ---
Vital Signs 03/28/25 14:05 Height 5 ft 2.8 in Weight 160 lb BMI 28.5 BP 98/48 L Blood Pressure Location Rt brachial Position Sitting Respiration 14 Pulse 72 Pulse Source Pulse Oximeter Temp 97.6 F Temp Source Temporal Artery Scan Pulse Oximetry (%) 99 Oxygen Delivery Method Room Air Intake Visit Reasons: ED follow-up Intake Note: Visit Reason: TCM Intake Note: Patient is here for hospital discharge follow up. 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 Required: No Drywall Applicator: Not Required per policy Accompanied by: Self / Same As Patient Allergies ciprofloxacin (From CIPRO) Allergy (Unknown, Verified 03/28/25 14:42) DIARRHEA Morpholine Analogues Allergy (Unknown, Verified 03/28/25 14:42) Unknown amoxicillin Allergy (Verified 03/28/25 14:42) Nausea meperidine Allergy (Verified 03/28/25 14:42) Unknown pollen extracts Allergy (Verified 03/28/25 14:42) Unknown Medication List - Last Reconciled 03/28/25 by Angelia Montoya PA-C atorvastatin 10 mg PO BEDTIME buspirone 10 mg PO TID 90 days clonazepam 0.5 mg PO BID famotidine 20 mg PO DAILY lithium carbonate 150 mg PO BID 90 days midodrine 10 mg PO TID@0900,1300,1700 90 days olanzapine 5 mg PO BID 90 days omeprazole 20 mg PO DAILY@0630 sertraline 100 mg PO DAILY zolpidem 5 mg PO BEDTIME PRN Tobacco use date assessed: 01/14/25 Dental Screening Dental Screen Date: 01/14/25 HPI HPI Comments History of Present Illness Details Patient presents to the office for a TCM visit. Date of admission: 03/14/2025 Date of discharge: 03/26/2025 This is a Follow-up from admission at [facility] partial psychiatric Program HPI/hospital course/discharge summary: The patient is a 74-year-old transgender male presenting for a follow-up after being discharged from a psychiatric partial hospitalization program. The patient attended the partial program at [facility] from 03/14 for two weeks, Monday through Monday from 9 AM to 2 PM, due to worsening depression and anxiety. He found the program to be helpful, and reports that his mood is now stabilizing. The patient's psychiatric history is significant for major depressive disorder, generalized anxiety disorder with panic attacks, dependent personality disorder, and neurocognitive issues. He has a history of alcohol use disorder and has been in sustained remission for 41 years. His current psychiatric medications include lithium carbonate 150 mg twice a day, olanzapine 5 mg twice a day, sertraline 100 mg daily, buspirone 10 mg three times a day, and clomipramine 50 mg at bedtime, with which he is compliant and denies side effects. His medical history includes interstitial lung disease, granulomatosis with polyangiitis, hypertension, and tracheal stenosis. 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 He complains of occasional dizziness, and his blood pressure is low, for which he takes midodrine three times a day. Recent laboratory studies from February showed chronic anemia, which was stable compared to prior results. His electrolytes, kidney function, and liver enzymes were normal, but his pro-BNP was slightly elevated, suggesting some fluid retention, and he notes a small amount of leg swelling. A chest scan performed during his hospitalization was normal. Discharged to/Current Location: Home Lives with: Self Diagnosis: MDD; generalized anxiety disorder Procedures performed: No procedures performed New medications: None Discontinued medications: none Change medications/dosing: none Pending labs:none Pending diagnostic test: none Any Follow-up Labs required? none Any Follow-up Diagnostic test required?none How are you feeling? He feels good but he gets dizzy from standing to sitting Are you in any pain or discomfort? no Do you have any questions about your condition or discharge instructions? All questions answered at this visit Were you able to get your medications filled? Patient was able to get all his medications refilled and has 90 days with 3 refills on all medications good for a year Do you have any questions about your medications? Patient does not have any questions about his medications at this time Any referrals required? Patient requesting referral to therapist as he has a psychiatrist Geovanna Davis Were you able to schedule your follow-up appointment? Yes If home health was ordered, have they contact you? No Any outpatient services, if so, are you scheduled? No Are there any additional resources like transportation you might need during her recovery? Yes patient interested in VNA services for medication management and blood pressure checks - VNA? Referral placed at this time - TERMINAL WORKER? Patient reports as a home health aide already in place - Meals on wheels? Not interested Educational need/resources: What support system do you have? Friends, home health aide Social History - Gender Identity: The patient is a transgender male who uses he/him pronouns and lives socially as a man. - Living Situation: He lives alone and feels safe. - Social Support: He spends time with friends and a neighbor. 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 - Substance Use: The patient reports being sober from alcohol for 41 years and denies any urges, cravings, or illicit substance abuse. - Hobbies: He stays busy by reading and watching TV. [facility] Medical History (Updated 03/28/25 @ 14:52 by Angelia Montoya PA-C) Orthostatic hypotension Mental health disorder Healthcare maintenance Dizziness History of alcohol abuse [id number] transgender person Granulomatosis with polyangiitis Hypotension Bronchitis Right knee pain History of vasculitis ILD (interstitial lung disease) Panic attacks Major neurocognitive disorder Hospital discharge follow-up Personality disorder Depression, major, severe recurrence Transgender Hard of hearing Tracheal stenosis Family History Father Heart disease Social History Household Members: None Housing: House Do you presently have visiting nurse or other home services: No Alcohol intake: current Alcohol intake frequency: does not drink Patient Tobacco Use Status: Former Tobacco user Tobacco use type: Cigarette e-Cigarette/Vaping Use: Never Used Second Hand Smoke Exposure: No Advance Directives Date on File: 12/14/24 service: No Current occupational status: retired Sexual orientation: Transsexual Cognitive needs: No Hearing needs: No Vision needs: Yes (rx glasses) Questionnaire PHQ-9 Over the last 2 weeks, how often have you been bothered by any of the following problems? 1. Little interest or pleasure in doing things: nearly every day 2. Feeling down, depressed, or hopeless: more than half the days 3. Trouble falling or staying asleep, or sleeping too much: more than half the days 4. Feeling tired or having little energy: nearly every day 5. Poor appetite or overeating: not at all 6. Feeling bad about yourself - or that you are a failure or have let yourself or your family down: more than half the days 7. Trouble concentrating on things, such as reading the newspaper or watching television: nearly every day 8. Moving or speaking so slowly that other people could have noticed. Or the opposite - being so fidgety or restless that you have been moving around a lot more than usual: not at all 9. Thoughts that you would be better off or of hurting yourself in some way: not at all Total score: 15 Depression Screening Interpretation: Positive Depression Screening Follow-up: Existing condition and In treatment Depression Screening Done: Yes 72716 - PHQ-9 Billing: Yes Source: Developed by Drs. Shamar Weller, Dai Weldon, Carter Le and colleagues, with an educational rush from [employer]. Thrive Questionnaire Date Thrive assessed: 10/04/24 I am a: Patient What is your living situation today?: I have a steady place to live Within the past 12 months, did the food you bought not last and you didn't have the money to get more?: Never true Within the past 12 months, did you worry whether your food would run out before you got money to buy more?: Never true Do you have trouble paying for medicines?: No Do you have trouble getting transportation to medical appointments?: No Do you have trouble paying your heating and electricity bill?: No Do you have trouble taking care of your child, family member or friend?: No Do you have trouble with day-to-day activities such as bathing, preparing meals, shopping, managing finances, etc.?: No Are you currently unemployed and looking for a job?: No Are you interested in more education?: No Please select the resources that you would like help with: None Currently or been in a relationship where the following occur: No concerns reported THRIVE Score: 0 AUDIT C Alcohol Use Questionnaire (AUDIT-C) 1. How often do you have a drink containing alcohol?: Never 3. How often do you have six or more drinks on one occasion?: Never Total Score: 0 Score Reviewed/Action Taken: No MILKA-7 AMB Questionnaire MILKA-7 Date MILKA - 7 assessed: 01/14/25 Feeling nervous, anxious, or on edge: 3 = Nearly every day Not being able to stop or control worryin = Nearly every day Worrying too much about different things: 3 = Nearly every day Trouble relaxin = Nearly every day Being so restless that it is hard to sit still: 3 = Nearly every day Becoming easily annoyed or irritable: 0 = Not at all Feeling afraid as if something awful might happen: 2 = More than half the days Total MILKA-7 score (0-4 normal; 5-9 mild; 10-14 moderate; 15-21 severe): 17 Source: Developed by Drs. Shamar Weller, Dai Weldon, Carter Le and colleagues, with an educational rush from [employer]. MILKA-7 Assessment Billing MILKA-7 Assessment Tool: MILKA-7 Assessment 03872 Review of Systems Const Details: - Constitutional: Reports fair but stable energy. - General: Denies pain or discomfort. - HEENT: Reports complete deafness in the left ear. - Neurological: Reports occasional dizziness, especially upon standing from a sitting position. - Psychiatric: Reports his mood is stabilizing. - Psychiatric: Denies acute depression, hopelessness, suicidal ideation, auditory hallucinations, visual hallucinations, and homicidal ideation. - Endocrine: Reports sleeping and eating well. - Gastrointestinal: Denies black or bloody stools. All systems reviewed & are unremarkable except as noted in HPI and below Physical exam (Primary Care) Vital Signs: Last Vital Signs Temp 97.6 F 03/28/25 14:05 Pulse 72 03/28/25 14:05 Resp 14 03/28/25 14:05 BP 98/48 L 03/28/25 14:05 Pulse Ox 99 03/28/25 14:05 Oxygen Delivery Method Room Air 03/28/25 14:05 Vitals signs have been reviewed. Care Plan Goal for BP management: <140/90 at Goal BMI result Body Mass Index 28.5 BMI Assessment/Plan discussion: High BMI High, discussed plan: lifestyle, weight reduction, dietary, physical activity, alcohol moderation and other Tobacco/Smoking Status: Tobacco use Status Tobacco use date assessed 01/14/25 03/28/25 14:08 Patient Tobacco Use Status Former Tobacco user 03/28/25 14:08 Tobacco use type Cigarette 03/28/25 14:08 e-Cigarette/Vaping Use Never Used 03/28/25 14:08 PHQ-9: PHQ-9 Score PHQ-9: Total score 15 03/28/25 14:08 Depression Screening Interpretation: Positive Depression Screening Follow-up: Existing condition and In treatment Thrive Assessment: Date of Thrive Assessment Date Thrive assessed 10/04/24 03/28/25 14:08 Currently or been in a relationship where the following occur: No concerns reported Const Other: Appearance: Alert. Oriented X3. No acute distress. Head: Normal external exam. Normocephalic. Atraumatic. Eyes: Pupils are equal, round, and reactive to light. Extraocular movements intact. Conjunctiva and sclera normal. Eyelids normal. Throat: Pharynx normal. Uvula midline. Moist mucous membranes. Neck: Normal inspection. Neck supple. Full range of motion. Cardiovascular: Normal heart rate and rhythm. Heart sound normal. No murmurs noted. Pulses normal throughout. Respiratory: No respiratory distress. Painless inspiration Back: Full range of motion noted. Skin: Skin warm and dry. Normal skin color. Normal skin turgor. No rashes/lesions/lacerations noted. Extremities: No lower extremity edema. Extremities exhibit normal range of motion. Neuro: Oriented X 3. No motor deficit. No sensory deficit. Reflexes normal. Results Reviewed Results Reviewed: - Laboratory (February 19): - CBC: Showed chronic anemia, stable compared to prior results. - CMP: Sodium, potassium, and kidney function were normal. - Other labs: Calcium and liver enzymes were normal. - Cardiac: Pro-BNP was slightly elevated. - Lipid Panel (previous): Cholesterol was high a few months ago. - Imaging: - Chest Scan: Normal, with no acute findings. Coding Level of Care Code TCM High MDM <= 7 Days Complex EM visit Add On G2211 Diagnoses Hospital discharge follow-up Z09 Orthostatic hypotension I95.1 Dizziness R42 Healthcare maintenance Z00.00 Mental health disorder F99 Additional Codes MILKA-7 Assessment Billing - MILKA-7 Assessment Tool: MILKA-7 Assessment 38793 ([id number]) PHQ-9 - 11879 - PHQ-9 Billing: Yes ([id number]) Time Spent (min) 60 Assessment & Plan Assessment & Plan (1) Hospital discharge follow-up: Code(s): Z09 - Encounter for follow-up examination after completed treatment for conditions other than malignant neoplasm Category: Medical Plan: Patient discharged from [facility] psychiatric partial hospitalization program on 03/26/2025 (2) Orthostatic hypotension: Code(s): I95.1 - Orthostatic hypotension Category: Medical Plan: The patient's dizziness, occurring when standing from a sitting position, is attributed to orthostatic hypotension, likely exacerbated by dehydration. Although a cardiac workup including an ultrasound and referral to cardiology was offered to investigate the underlying cause of his low blood pressure, the patient declined at this time, preferring to monitor his symptoms and continue his current medication, midodrine. He was counseled to increase his fluid intake to at least one liter a day and to try Liquid IV hydration packets to help increase his blood pressure. A referral for a visiting nurse will be placed to assist with blood pressure monitoring. (3) Dizziness: Code(s): R42 - Dizziness and giddiness Category: Medical Plan: The patient's dizziness, occurring when standing from a sitting position, is attributed to orthostatic hypotension, likely exacerbated by dehydration. Although a cardiac workup including an ultrasound and referral to cardiology was offered to investigate the underlying cause of his low blood pressure, the patient declined at this time, preferring to monitor his symptoms and continue his current medication, midodrine. He was counseled to increase his fluid intake to at least one liter a day and to try Liquid IV hydration packets to help increase his blood pressure. A referral for a visiting nurse will be placed to assist with blood pressure monitoring. (4) Healthcare maintenance: Code(s): Z00.00 - Encounter for general adult medical examination without abnormal findings Category: Medical Plan: All current medications were recently refilled with a 90-day supply and three refills, which should last for a year. A referral will be placed for a visiting nurse to assist with medication management in his pillbox. The patient's gender identity and pronouns (he/him) have been updated in his chart to ensure respectful communication. A follow-up appointment is scheduled in three months. (5) Mental health disorder: Code(s): F99 - Mental disorder, not otherwise specified Category: Medical Plan: The patient reports his mood is stabilizing following a two-week partial hospitalization program for depression and anxiety. He remains compliant with his psychiatric medications and has a psychiatrist, but has been without a therapist since May. An urgent referral will be placed for a therapist, and an additional referral will be made for a social organization professor to provide further support. Plan Plan Patient was informed and verbally consented to the use of an ambient scribe for clinic note documentation during this visit. 1. Orthostatic Hypotension And Dizziness The patient's dizziness, occurring when standing from a sitting position, is attributed to orthostatic hypotension, likely exacerbated by dehydration. Although a cardiac workup including an ultrasound and referral to cardiology was offered to investigate the underlying cause of his low blood pressure, the patient declined at this time, preferring to monitor his symptoms and continue his current medication, midodrine. He was counseled to increase his fluid intake to at least one liter a day and to try Liquid IV hydration packets to help increase his blood pressure. A referral for a visiting nurse will be placed to assist with blood pressure monitoring. 2. Mental And Behavioral Health The patient reports his mood is stabilizing following a two-week partial hospitalization program for depression and anxiety. He remains compliant with his psychiatric medications and has a psychiatrist, but has been without a therapist since May. An urgent referral will be placed for a therapist, and an additional referral will be made for a social organization professor to provide further support. 3. Health Maintenance All current medications were recently refilled with a 90-day supply and three refills, which should last for a year. A referral will be placed for a visiting nurse to assist with medication management in his pillbox. The patient's gender identity and pronouns (he/him) have been updated in his chart to ensure respectful communication. A follow-up appointment is scheduled in three months. I reviewed the patient's recent discharge from a partial hospitalization program and his current stable mood. We discussed his primary complaint of dizziness, which I explained is likely orthostatic hypotension due to dehydration. I recommended increasing fluid intake and using Liquid IV packets to help raise his blood pressure. I offered a referral to cardiology and an echocardiogram to investigate the underlying cause of his hypotension, but the patient declined at this time, preferring to monitor the issue. I informed the patient that I will place an urgent referral for a therapist, as well as referrals for a visiting nurse and a social organization professor to provide comprehensive support. We confirmed that all his medications have been refilled. I advised him to go to the hospital if his blood pressure drops to a very low level, such as 70/30. We will follow up in three months. Orders: Referrals Counseling Referral F02.80 - Dementia in other diseases classified elsewhere, unspecified severity, without behavioral disturbance, psychotic disturbance, mood disturbance, and anxiety, F03.90 - Unspecified dementia, unspecified severity, without behavioral disturbance, psychotic disturbance, mood disturbance, and anxiety, F33.1 - Major depressive disorder, recurrent, moderate, F33.2 - Major depressive disorder, recurrent severe without psychotic features, F41.0 - Panic disorder [episodic paroxysmal anxiety], F41.1 - Generalized anxiety disorder, F41.9 - Anxiety disorder, unspecified, F60.7 - Dependent personality disorder, H91.90 - Unspecified hearing loss, unspecified ear, Z78.9 - Other specified health status Visiting Nurse Association/Hospice Referral F33.1 - Major depressive disorder, recurrent, moderate, F33.2 - Major depressive disorder, recurrent severe without psychotic features, F41.0 - Panic disorder [episodic paroxysmal anxiety], F41.1 - Generalized anxiety disorder, F60.7 - Dependent personality disorder, H91.90 - Unspecified hearing loss, unspecified ear, K21.9 - Gastro-esophageal reflux disease without esophagitis, M31.30 - 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, Z78.9 - Other specified health status, Z79.899 - Other continuous churn buttermaker (current) drug therapy, Z86.79 - Personal history of other diseases of the circulatory system Patient Instructions: - This visit was a follow-up after your recent partial-day hospital program. - To help with dizziness and low blood pressure, please try to drink more fluids, aiming for at least a liter per day. - You can buy Liquid IV hydration packets at stores like [employer], [employer], or online. - Mix one Liquid IV packet in water and drink it daily or every other day to help with hydration. - We have placed referrals for a therapist, a social organization professor, and a visiting nurse. - They will call you to schedule appointments. - The visiting nurse will help you manage your medications and check your blood pressure at home. - All your medications have been refilled for 90 days with refills for a year. - If your blood pressure becomes very low (for example, 70/30), you should go to the hospital. - Please schedule a follow-up appointment in three months.
[2025-03-28 14:05] VITALS: BP 98/48; PULSE 72; RESP 14; TEMP 36.4; O2SAT 99; BMI 28.5
--- OUTSIDE RECORDS SUMMARY | 2025-03-28 15:45 | XMS_ITS | Encounter Summary ---
Author Organization [facility] Address [address] [place] [id number] Phone Care Team Providers Care Mobile Solutions Architect Name Role Phone Hoang Mitchell MD Unavailable [phone] Aaron Collins MD Unavailable Unknown, Unknown Primary Care Provider Mee Beyer MBBS Unavailable [phone] Pcp, Unknown Primary Care Provider Angelia Alvarze Primary Care Provider [phone] Reason for Referral * MRI/CAT Scan - [...] Expiration Date Visits Re quested Visits Authorized [id number] Closed 01/04/2023 01/04/2024 1 1 * MRI/CAT Scan - Closed Specialty Diagnoses / Procedures Referred By Contpedro t Referred To Contact Radiology Diagnoses Respiratory disorders in diseases classified elsewhere 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 Respiratory disorders in diseases classified elsewhere [...] documented as of this encounter Care Teams Mobile Solutions Architect Relationship Specialty Start Date End Date Unknown, Unknown, PCP - General 08/01/23 08/16/23 Pcp, Unknown PCP - General 09/19/23 07/24/24 Angelia Montoya PA [address] [place] [address] PCP - General Physician Rough And Truing Machine Operator 01/31/25 Hoang Mitchell MD [address] [place] [address] [email or web address] [address] [email or web address] Consulting Provider Rheumatology 10/02/15 Aaron Collins MD [address] [place] [id number] [email or web address] Primary Oncologist Hematology and Oncology 11/30/2208/23 Mee Badillo MBBS [email or web address] Primary Oncologist Medical Oncology 08/25/23 documented as of this encounter Additional Source Comments The information contained in this document represents components of the legal health record. It is not the complete legal health record.[facility]
--- OUTSIDE RECORDS SUMMARY | 2025-03-28 15:45 | XMS_ITS | Encounter Summary ---
Author Organization [facility] Address [address] [facility] [address] [place] [address] Phone Care Team Providers Care Finish Repair Worker Name Role Phone Hernan Arzola MD Unavailable [email or web address] Hoang Mitchell MD Unavailable [phone] Austin Montoya MD Unavailable [phone] Hernan Arzola MD Unavailable [email or web address] Scott Quiroz MD Unavailable [phone] Gabriel Malik MD Unavailable [phone] Scott Quiroz MD Primary Care Provider Aaron Collins MD Unavailable Unknown, Unknown Primary Care Provider Mee Beyer Unavailable [phone] Pcp, Unknown Primary Care Provider UnavailAngelia Wynn Primary Care Provider Encounter Details Date Type Department Care Team (Late st Contact Info) Description 04/24/2020 Transcribe Orders [facility] [address] [place] [address] [phone] Unknown, Unknown, Social History Tobacco Use Types [...] documented as of this encounter Care Teams Finish Repair Worker Relationship Specialty Start Date End Date Scott Quiroz MD [address] [place] [address] [email or web address] PCP - General Internal Medicine 10/24/17 12/19/22 Unknown, Unknown, MD PCP - General 08/01/23 08/16/23 Pcp, Unknown PCP - General 09/19/23 07/24/24 Angelia Montoya PA [address] [place] [address] PCP - General Physician Chemical Librarian 01/31/25 Hernan Arzola MD [email or web address] Internal Medicine 10/02/15 10/20/20 Hoang Mitchell MD [address] [place] [address] 501_[place] [address] [email or web address] Consulting Provider Rheumatology 10/02/15 Austin Montoya MD [address] [place] [address] [email or web address] Historical LMR Provider 03/06/17 05/29/21 Hernan Arzola MD [email or web address] Historical LMR Provider 03/06/17 10/20/20 Scott Quiroz MD [address] [place] [address] [email or web address] Historical LMR Provider 03/06/17 10/20/20 [place] [address] [place] [address] Historical LMR Provider 03/06/17 Aaron Hardy MD [address] [address] [email or web address] Primary Oncologist Hematology and Oncology 11/30/2208/23 Mee Badillo MBBS [email or web address] Primary Oncologist Medical Oncology 08/25/23 documented as of this encounter Additional Source Comments The information contained in this document represents components of the legal health record. It is not the complete legal health record.[facility]
--- OUTSIDE RECORDS SUMMARY | 2025-03-28 15:45 | XMS_ITS | Encounter Summary ---
Author Organization [facility] Address [address] [place] [address] Phone Care Team Providers Care Senior Mainframe Programmer Analyst Name Role Phone Hoang Mitchell MD Unavailable [phone] Mee Badillo MBBS Unavailable [phone] Pcp, Unknown Primary Care Provider UnavailAngelia Wynn Primary Care Provider [phone] Encounter Details Date Type Department Care Team (Late st Contact Info) Description 02/29/2024 Procedure Pass [facility] Periop [address] [place] [address] Social History Tobacco Use Types Packs/Day Years [...] documented as of this encounter Care Teams Senior Mainframe Programmer Analyst Relationship Specialty Start Date End Date Pcp, Unknown PCP - General 09/19/23 07/24/24 Angelia Montoya PA [address] [place] [address] PCP - General Physician Strawberry Grower 01/31/25 Hoang Mitchell MD [address] [place] [address]_[place] [address] [email or web address] Consulting Provider Rheumatology 10/02/15 Mee Badillo MBBS [address] [place] [address]_[place] [address] [email or web address] Primary Oncologist Medical Oncology 08/25/23 documented as of this encounter Additional Source Comments The information contained in this document represents components of the legal health record. It is not the complete legal health record.[facility]
--- OUTSIDE RECORDS SUMMARY | 2025-03-28 15:46 | XMS_ITS | Encounter Summary ---
Author Organization [facility] Address [address] [facility] [address] [place] [address] Phone Care Team Providers Care Pulp Screen Operator Name Role Phone Hernan Arzola MD Unavailable [email or web address] Hoang Mitchell MD Unavailable [phone] Austin Montoya MD Unavailable [phone] Hernan Arzola MD Unavailable [email or web address] Scott Quiroz MD Unavailable [phone] Gabriel Malik MD Unavailable Scott Quiroz MD Primary Care Provider Aaron Collins MD Unavailable Unknown, Unknown Primary Care Provider Mee Beyer Unavailable [phone] Pcp, Unknown Primary Care Provider UnavailAngelia Wynn Primary Care Provider Encounter Details Date Type Department Care Team (Late st Contact Info) Description 02/13/2019 Ancillary Orders Virtual Department [address] [place] [address] Scott Quiroz MD [address] [address] [email or web address] Frequent urination Social History Tobacco [...] mass. POS - [id number] Scott Quiroz MD [facility] Final Result documented in this encounter Visit Diagnoses Diagnosis Frequent urination Urinary frequency Frequent urination Urinary frequency documented in this encounter Additional Health Concerns Infection Onset Date Last Indicated Resolved Time CoV-Risk 03/04/2021 03/04/2021 03/14/2021 1:22 AM EDT documented as of this encounter Care Teams Pulp Screen Operator Relationship Specialty Start Date End Date Scott Quiroz MD [address] [place] [address] [email or web address] PCP - General Internal Medicine 10/24/17 12/19/22 Unknown, Kandy, PCP - General 08/01/23 08/16/23 Pcp, Unknown PCP - General 09/19/23 07/24/24 Angelia Montoya PA [address] [place] [address] PCP - General Physician Exercise Science Internship 01/31/25 Hernan Arzola MD [email or web address] Internal Medicine 10/02/15 10/20/20 Hoang Mitchell MD [address] [place] [address] 501_[place] [address] [email or web address] Consulting Provider Rheumatology 10/02/15 Austin Montoya MD [address] [place] [address] [email or web address] Historical LMR Provider 03/06/17 05/29/21 Hernan Arzola MD [email or web address] Historical LMR Provider 03/06/17 10/20/20 Scott Quiroz MD [address] [place] [address] [email or web address] Historical LMR Provider 03/06/17 10/20/20 Gabriel aMlik MD [address] [address] Historical LMR Provider 03/06/17 Aaron Hardy MD [address] [address] [email or web address] Primary Oncologist Hematology and Oncology 11/30/2208/23 Mee Badillo MBBS [email or web address] Primary Oncologist Medical Oncology 08/25/23 documented as of this encounter Additional Source Comments The information contained in this document represents components of the legal health record. It is not the complete legal health record.[facility]
--- OUTSIDE RECORDS SUMMARY | 2025-03-28 15:46 | XMS_ITS | Encounter Summary ---
Author Organization [facility] Address [address] [place] [address] [place] [address] Phone Care Team Providers Care Brass Wind Instrument Maker Name Role Phone Hernan Arzola MD Unavailable [email or web address] Hoang Mitchell MD Unavailable [phone] Austin Montoya MD Unavailable [phone] Hernan Arzola MD Unavailable [facility] [email or web address] Scott Quiroz MD Unavailable [phone] Gabriel Malik MD Unavailable [phone] Scott Quiroz MD Primary Care Provider [phone] Aaron Collins MD Unavailable Unknown, Unknown Primary Care Provider Mee Beyer Unavailable [phone] Pcp, Unknown Primary Care Provider UnavailAngelia Wynn Primary Care Provider [phone] Reason for Referral * Physical Therapy (Elective) - Closed Specialty Diagnoses / Procedures Referred By Lasha foreman Referred To Contact Physical Therapy Diagnoses Encounter for rehabilitation Left Shoulder Pain Scott Quiroz MD Phone: tel: fax: [email or web address] [address] Phone: tel: Referral ID Status Reason Start Date Expiration Date Visits Re quested Visits Authorized [id number] Closed 11/23/2018 03/01/2019 99 99 Encounter Details Date Type Department Care Team (Latest Contact Info) Description 11/23/2018 Transcribe Orders [facility] Rehabilitation Services [address] [place] [address] Scott Quiroz MD [address] [place] [address] [email or web address] Encounter for rehabilitation (Primary Dx) Social [...] Diagnoses Orde r Schedule Ambulatory referral to [facility] Physical Therapy Outpatient Referral Routine Encounter for rehabilitation Ordered: 11/23/2018 documented as of this encounter Visit Diagnoses Diagnosis Encounter for rehabilitation- Primary documented in this encounter Additional Health Concerns Infection Onset Date Last Indicated Resolved Time CoV-Risk 03/04/2021 03/04/2021 03/14/2021 1:22 AM EDT documented as of this encounter Care Teams Brass Wind Instrument Maker Relationship Specialty Start Date End Date Scott Quiroz MD [address] [place] [address] [email or web address] PCP - General Internal Medicine 10/24/17 12/19/22 Unknown, Unknown, MD PCP - General 08/01/23 08/16/23 Pcp, Unknown PCP - General 09/19/23 07/24/24 Angelia Montoya PA [address] [place] [address] PCP - General Physician Records Associate 01/31/25 Hernan Arzola MD [email or web address] Internal Medicine 10/02/15 10/20/20 Hoang Mitchell MD [address] [place] [address] [address]_[place] [address] [email or web address] Consulting Provider Rheumatology 10/02/15 Austin Montoya MD [address] [place], [place] [address], [place] [address] [email or web address] Historical LMR Provider 03/06/17 05/29/21 Hernan Arzola MD [email or web address] Historical LMR Provider 03/06/17 10/20/20 Scott Quiroz MD [address] [place] [address] [email or web address] Historical LMR Provider 03/06/17 10/20/20 Gabriel Malik MD 3500 [facility] [address] [place] [address] Historical LMR Provider 03/06/17 2 [place] [address] [place] [address] [email or web address] Primary Oncologist Hematology and Oncology 11/30/2208/23 Mee Badillo MBBS [email or web address] Primary Oncologist Medical Oncology 08/25/23 documented as of this encounter Additional Source Comments The information contained in this document represents components of the legal health record. It is not the complete legal health record.[facility]
--- OUTSIDE RECORDS SUMMARY | 2025-03-28 15:46 | XMS_ITS | Encounter Summary ---
Author Organization [employer] Address [address] [facility] 7t [place] [address] Care Team Providers Care Motorcycle Riding Instructor Name Role Phone Unavailable Primary Care Provider Unavailabl e Encounter Details Date Type Department Care Team (Late st Contact Info) Description 07/30/2024 [facility] [address] [place] [address] Chaparrita Starr Social History Tobacco Use Types [...]
--- OUTSIDE RECORDS SUMMARY | 2025-03-28 15:46 | XMS_ITS | Encounter Summary ---
Author Organization [facility] Address [address] [place] [address] Phone Care Team Providers Care Beverage Steward Name Role Phone Hoang Mitchell MD Unavailable Aaron Collins MD Unavailable Unknown, Unknown Primary Care Provider Mee Beyer MBBS Unavailable [phone] Pcp, Unknown Primary Care Provider UnavailAngelia Wynn Primary Care Provider [phone] Encounter Details Date Type Department Care Team (Late st Contact Info) Description 05/30/2023 Procedure Pass [facility] Periop [address] [place] [address] Social History Tobacco Use Types Packs/Day Years [...] documented as of this encounter Care Teams Beverage Steward Relationship Specialty Start Date End Date Unknown, Unknown, MD PCP - General 08/01/23 08/16/23 Pcp, Unknown PCP - General 09/19/23 07/24/24 Angelia Montoya PA [address] [place] [address] PCP - General Physician Power Electronics Research Engineer 01/31/25 Hoang Mitchell MD [address] [place] [address] [address]_[place] [address] [email or web address] Consulting Provider Rheumatology 10/02/15 Aaron Collins MD [address] [address] [email or web address] Primary Oncologist Hematology and Oncology 11/30/2208/23 Mee Badillo MBBS [email or web address] Primary Oncologist Medical Oncology 08/25/23 documented as of this encounter Additional Source Comments The information contained in this document represents components of the legal health record. It is not the complete legal health record.[facility]
--- OUTSIDE RECORDS SUMMARY | 2025-03-28 15:46 | XMS_ITS | Encounter Summary ---
Author Organization [employer] Address [address] [facility] 7t [place] [address] Care Team Providers Care Manager Mission Name Role Phone Unavailable Primary Care Provider [...]
--- OUTSIDE RECORDS SUMMARY | 2025-03-28 15:46 | XMS_ITS | Encounter Summary ---
Author Organization [employer] Address [address] [facility] 7 [place] [address] Care Team Providers Care Rn Office Name Role Phone Unavailable Primary Care Provider [...]
--- OUTSIDE RECORDS SUMMARY | 2025-03-28 15:46 | XMS_ITS | Encounter Summary ---
Author Organization [facility] Address [address] [place] [address] Phone Care Team Providers Care Mending Carrier Name Role Phone Hoang Mitchell MD Unavailable [phone] Scott Quiroz MD Primary Care Provider Aaron Collins MD Unavailable Unknown, Unknown Primary Care Provider Mee BeyerBS Unavailable [phone] Pcp, Unknown Primary Care Provider Angelia Alvarez Primary Care Provider [phone] Encounter Details Date Type Department Care Team (Late st Contact Info) Description 08/16/2022 Procedure Pass [facility], Ct Scan - [address] [address] Social History Tobacco Use Types Packs/Day Years [...] 6:04 PM EDT Paul Horn RN * [place] Suicide Severity Rating Scale (Screener/Recent Self-Report) Question Answer Date of Assessment Author 1. Wish to be (Past 1 Month) No 023 6:04 PM EDT Claudette Horn RN 2. Non-Specific Active Suici eunice Thoughts (Past 1 Month) No 08/16/2022 6:04 PM EDT Claudette Horn RN 6. Suicidal Behavior (Lifetime) No 3 [...] on filedocumented in this encounter Care Teams Mending Carrier Relationship Specialty Start Date End Date Scott Quiroz MD [address] [place] [address] [email or web address] PCP - General Internal Medicine 10/24/17 12/19/22 Unknown, Unknown, PCP - General 08/01/23 08/16/23 Pcp, Unknown PCP - General 09/19/23 07/24/24 Angelia Montoya PA [address] [place] [address] PCP - General Physician Machine Tool Operator 01/31/25 Hoang Mitchell MD [address] [place] [address] [address]_[place] [address] [email or web address] Consulting Provider Rheumatology 10/02/15 Aaron Collins MD [address] [place] [address] [email or web address] Primary Oncologist Hematology and Oncology 11/30/2208/23 Mee Badillo MBBS [email or web address] Primary Oncologist Medical Oncology 08/25/23 documented as of this encounter Additional Source Comments The information contained in this document represents components of the legal health record. It is not the complete legal health record.[facility]
--- OUTSIDE RECORDS SUMMARY | 2025-03-28 15:46 | XMS_ITS | Encounter Summary ---
Author Organization [facility] Address [address] [facility] [address] [place] [address] Phone Care Team Providers Care Senior Business Process Analyst Name Role Phone Hoang Mitchell MD Unavailable Scott Quiroz MD Primary Care Provider Aaron Collins MD Unavailable [phone] Unknown, Unknown Primary Care Provider Mee Beyer MBBS Unavailable [phone] Pcp, Unknown Primary Care Provider Angelia Alvarez Primary Care Provider [phone] Encounter Details Date Type Department Care Team (Latest Contact Info) Description 09/09/2021 Transcribe Orders Virtual Department [address] [place] [address] Scott Quiroz MD [address] [place] [address] [email or web address] Pre-procedure lab exam (Primary Dx) Social History [...] Order (09/12/2021 2:58 PM EDT) COVID-19 Comment [id number] [facility] COVID Testing Status Specimen received in analyzing lab. Results should be available within 24 to 48 hrs. [facility] Other 09/12/2021 2:58 PM EDT 09/12/2021 5:47 PM EDT Scott Quiroz MD LAB GENERAL ORDERABLES Final Result [facility] [address] [place] [address] [address] documented in this encounter Visit Diagnoses Diagnosis Pre-procedure lab exam- Primary Pre-procedural laboratory examination documented in this encounter Care Teams Senior Business Process Analyst Relationship Specialty Start Date End Date Scott Quiroz MD [address] [place] [address] [email or web address] PCP - General Internal Medicine 10/24/17 12/19/22 Unknown, Unknown, MD PCP - General 08/01/23 08/16/23 Pcp, Unknown PCP - General 09/19/23 07/24/24 Angelia Montoya PA [address] [place] [address] PCP - General Physician Roll Off Driver 01/31/25 Hoang Mitchell MD [address] [place] [address] [address]_[place] [address] [email or web address] Consulting Provider Rheumatology 10/02/15 Aaron Collins MD [facility] [address] [address] [email or web address] Primary Oncologist Hematology and Oncology 11/30/2208/23 Mee Badillo MBBS [email or web address] Primary Oncologist Medical Oncology 08/25/23 documented as of this encounter Additional Source Comments The information contained in this document represents components of the legal health record. It is not the complete legal health record.[facility]
--- OUTSIDE RECORDS SUMMARY | 2025-03-28 15:46 | XMS_ITS | Encounter Summary ---
Author Organization [facility] Address [address] [place] [address] [place] [address] Phone Care Team Providers Care Gunner Mate Name Role Phone Hernan Arzola MD Unavailable [email or web address] Hoang Mitchell MD Unavailable [phone] Austin Montoya MD Unavailable [phone] Hernan Arzola MD Unavailable [email or web address] Scott Quiroz MD Unavailable Gabriel Malik MD Unavailable Hernan Arzola MD Primary Care Provider [email or web address] Scott Quiroz MD Primary Care Provider [phone] Aaron Collins MD Unavailable Unknown, Unknown Primary Care Provider Mee Beyer Unavailable [phone] Pcp, Unknown Primary Care Provider UnavailAngelia Wynn Primary Care Provider [phone] Encounter Details Date Type Department Care Team (Latest Contact Info) Description 04/12/2017 Transcribe Orders [facility] Phleb Kate [address] [place] [address] Hernan Arzola MD [email or web address] Rosie's granulomatosis (Primary Dx) Social History [...] D (TOTAL) 33 30 - 1,000 ng/mL [facility] Blood 04/12/2017 4:41 PM EST 04/12/2017 4:43 PM EST us Hernan Arzola MD LAB BLOOD BKR ORDERABLES F inal Result Performing Organization Address City/[facility]/ZIP Co de Phone Number [address] [address] * C-Reactive Protein (04/12/2017 4:41 PM EST) C REACTIVE PROTEIN 0.2 0 - 0.5 mg/L [facility] Blood 04/12/2017 4:41 PM EST 04/12/2017 4:43 PM EST us Hernan Arzola MD LAB BLOOD BKR ORDERABLES F inal Result Performing Organization Address [facility] Co de Phone Number [address] [address] * Comprehensive metabolic panel (04/12/2017 4:41 PM EST) SODIUM 145 133 - 146 mmol/L [facility] POTASSIUM 4.4 3.3 - 5.1 mmol/L [facility] CHLORIDE 107 96 - 108 mmol/L [facility] CO2 25 21 - 35 mmol/L [facility] BUN 15 6 - 19 mg/dL [facility] CREATININE 0.70 0.5 - 1.5 mg/dL [facility] GLUCOSE 86 70 - 99 mg/dL [facility] ALBUMIN 4.1 3.9 - 4.8 g/dL [facility] TOTAL PROTEIN 6.6 6.5 - 8.0 g/dL [facility] CALCIUM 9.1 8.4 - 10.3 mg/dL [facility] ALKALINE PHOSPHATASE 79 39 - 117 U/L [facility] TOTAL BILIRUBIN 0.2 0 - 1.2 mg/dL [facility] AST 19 0 - 37 U/L [facility] ALT 12 0 - 40 U/L [facility] GLOBULIN 2.5 1 - 4.8 g/dL [facility] EGFR >60 >60 mL/min/1.7 3m2 [facility] Comment:Abnormal if <60. If patient is -Mongolian, multiply the result by 1.21. ANION GAP 17 10 - 20 mmol/L [facility] Blood 04/12/2017 4:41 PM EST 04/12/2017 4:43 PM EST us Hernan Arzola MD LAB BLOOD BKR ORDERABLES F inal Result [facility] [address] [place] [address] * (ABNORMAL) CBC and differential (04/12/2017 4:41 PM EST) WBC 4.36 3.40 - 11.20 K/uL [facility] RBC 3.74(L) 4.50 - 5.50 M/uL [facility] HGB 11.3(L) 13.0 - 17.0 g/dL [facility] HCT 34.8(L) 40.0 - 51.0 % [facility] PLT 230 130 - 400 K/uL [facility] MCV 93.0 79.0 - 98.0 fL [facility] MCH 30.2 27.0 - 34.8 pg [facility] MCHC 32.5 31.5 - 36.0 g/dL [facility] RDW 12.9 10.8 - 14.6 % [facility] MPV 11.7 9.4 - 12.4 fl [facility] NRBC 0.00 /100 WBCs [facility] ABSOLUTE NRBC 0.00 K/uL [facility] DIFF METHOD Auto [facility] NEUTS 58.1 45.30 - 77.70 % [facility] LYMPHS 26.1 12.30 - 39.70 % [facility] MONOS 13.1(H) 4.10 - 12.80 % [facility] EOS 1.4 0 - 7.2 % [facility] BASOS 1.1 0 - 2.80 % [facility] Granulocytes, immature (%) 0.2 0.0 - 0.9 % [facility] ABSOLUTE NEUTS 2.53 1.40 - 7.70 K/uL [facility] ABSOLUTE LYMPHS 1.14 0.60 - 3.20 K/uL [facility] ABSOLUTE MONOS 0.57 0.11 - 0.59 K/uL [facility] ABSOLUTE EOS 0.06 0.01 - 0.50 K/uL [facility] ABSOLUTE BASOS 0.05 0.00 - 0.08 K/uL [facility] Granulocytes, immature 0.01 0.00 - 0.05 K/uL [facility] Blood 04/12/2017 4:41 PM EST 04/12/2017 4:43 PM EST us Hernan Arzola MD LAB BLOOD BKR ORDERABLES F inal Result Performing Organization Address City/State/[facility] Co de Phone Number [facility] [address] [place] [address] documented in this encounter Visit Diagnoses Diagnosis Rosie's granulomatosis- Primary documented in this encounter Additional Health Concerns Infection Onset Date Last Indicated Resolved Time CoV-Risk 03/04/2021 03/04/2021 03/14/2021 1:22 AM EDT documented as of this encounter Care Teams Gunner Mate Relationship Specialty Start Date End Date Hernan Arzola MD [email or web address] PCP - General Rheumatology 04/10/17 10/23/17 Scott Quiroz MD [address] [place] [address] [email or web address] PCP - General Internal Medicine 10/24/17 12/19/22 Unknown, Kandy, PCP - General 08/01/23 08/16/23 Pcp, Unknown PCP - General 09/19/23 07/24/24 Angelia Montoya PA [address] [place] [address] PCP - General Physician Oracle Soa Developer 01/31/25 Hernan Arzola MD [email or web address] Internal Medicine 10/02/15 10/20/20 Hoang Mitchell MD [address] [facility] 501_[place] [address] [email or web address] Consulting Provider Rheumatology 10/02/15 Austin Montoya MD [address] [place] [address] [email or web address] Historical LMR Provider 03/06/17 05/29/21 Hernan Arzola MD [email or web address] Historical LMR Provider 03/06/17 10/20/20 Scott Quiroz MD [address] [place] [address] [email or web address] Historical LMR Provider 03/06/17 10/20/20 [place] [address] [place] [address] Historical LMR Provider 03/06/17 Aaron Hardy MD [address] [place] [address] [email or web address] Primary Oncologist Hematology and Oncology 11/30/2208/23 Mee Badillo MBBS [email or web address] Primary Oncologist Medical Oncology 08/25/23 documented as of this encounter Additional Source Comments The information contained in this document represents components of the legal health record. It is not the complete legal health record.[facility]
--- OUTSIDE RECORDS SUMMARY | 2025-03-28 15:46 | XMS_ITS | Clinical Summary ---
Author Organization [employer] Address [address] [facility] 7t [place] [address] Care Team Providers Care Rn Lpn Lvn Name Role Phone Unavailable Primary Care Provider [...]
--- OUTSIDE RECORDS SUMMARY | 2025-03-28 15:46 | XMS_ITS | Encounter Summary ---
Author Organization [facility] Address [address] [place] [address] Phone Care Team Providers Care Senior Paralegal Name Role Phone Hoang Mitchell MD Unavailable [phone] Mee Badillo MBBS Unavailable [phone] Pcp, Unknown Primary Care Provider UnavailAngelia Wynn Primary Care Provider [phone] Encounter Details Date Type Department Care Team (Late st Contact Info) Description 10/06/2023 Procedure Pass [facility] Endoscopy Admitting Dept Virtual Department [address] [place] [address] Social History Tobacco Use Types Packs/Day Years [...] as of this encounter Care Teams Senior Paralegal Relationship Specialty Start Date End Date Pcp, Unknown PCP - General 09/19/23 07/24/24 Angelia Montoya PA [address] [place] [address] PCP - General Physician Adult Crossing Guard 01/31/25 Hoang Mitchell MD [address] [place] [address] 501_[place] [address] [email or web address] Consulting Provider Rheumatology 10/02/15 Mee Badillo MBBS [address] [place] [address] [address]_[place] [address] [email or web address] Primary Oncologist Medical Oncology 08/25/23 documented as of this encounter Additional Source Comments The information contained in this document represents components of the legal health record. It is not the complete legal health record.[facility]
--- OUTSIDE RECORDS SUMMARY | 2025-03-28 15:46 | XMS_ITS | Encounter Summary ---
Author Organization [facility] Address [address] [facility] [address] [place] [address] Phone Care Team Providers Care Fiberglass Auto Body Repairer Name Role Phone Hoang Mitchell MD Unavailable Scott Quiroz MD Primary Care Provider Aaron Collins MD Unavailable Unknown, Unknown Primary Care Provider Mee BeyerBS Unavailable Pcp, Unknown Primary Care Provider Angelia Alvarez Primary Care Provider [phone] Encounter Details Date Type Department Care Team (Latest Contact Info) Description 08/24/2022 Transcribe Orders Virtual Department [address] [place] [address] Scott Quiroz MD [address] [place] [address] [email or web address] Cervical spinal stenosis (Primary Dx) Social History [...] region documented in this encounter Care Teams Fiberglass Auto Body Repairer Relationship Specialty Start Date End Date Scott Quiroz MD [address] [place] [address] [email or web address] PCP - General Internal Medicine 10/24/17 12/19/22 Unknown, Kandy, PCP - General 08/01/23 08/16/23 Pcp, Unknown PCP - General 09/19/23 07/24/24 Angelia Montoya PA [address] [place] [address] PCP - General Physician Rheologist 01/31/25 Hoang Mitchell MD [address] [place] [address] [address]_[place] [address] [email or web address] Consulting Provider Rheumatology 10/02/15 Aaron Collins MD [address] [address] [email or web address] Primary Oncologist Hematology and Oncology 11/30/2208/23 Mee Badillo MBBS [email or web address] Primary Oncologist Medical Oncology 08/25/23 documented as of this encounter Additional Source Comments The information contained in this document represents components of the legal health record. It is not the complete legal health record.[facility]
--- OUTSIDE RECORDS SUMMARY | 2025-03-28 15:46 | XMS_ITS | Encounter Summary ---
Author Organization [facility] Address [address] [place] [address] [place] [address] Phone Care Team Providers Care Veneer Taper Name Role Phone Scott Quiroz MD Primary Care Provider [phone] Hernan Arzola MD Unavailable [facility] [email or web address] Hoang Mitchell MD Unavailable [phone] Austin Montoya MD Unavailable [phone] Hernan Azrola MD Unavailable [email or web address] Scott Quiroz MD Unavailable [phone] Gabriel Malik MD Unavailable [phone] Hernan Arzola MD Primary Care Provider [email or web address] Scott Quiroz MD Primary Care Provider [phone] Aaron Collins MD Unavailable [phone] Unknown, Unknown Primary Care Provider Mee Beyer Unavailable [phone] Pcp, Unknown Primary Care Provider UnavailAngelia Wynn Primary Care Provider [phone] Encounter Details Date Type Department Care Team (Late st Contact Info) Description 09/30/2016 Procedure Pass [facility] PERIOPERATIVE DEPT [address] [place] [address] Social History Tobacco Use Types Packs/Day [...] documented as of this encounter Care Teams Veneer Taper Relationship Specialty Start Date End Date Scott Quiroz MD [address] [address] [email or web address] westClaim Maps PCP - General 11/19/13 04/09/17 Hernan Arzola MD [email or web address] PCP - General Rheumatology 04/10/17 10/23/17 Scott Quiroz MD [address] [address] [email or web address] hospital westClaim Maps PCP - General Internal Medicine 10/24/17 12/19/22 Unknown, Kandy, PCP - General 08/01/23 08/16/23 Pcp, Unknown PCP - General 09/19/23 07/24/24 Angelia Montoya PA [address] [place] [address] PCP - General Physician Nurse Emergency Room 01/31/25 Hernan Arzola MD [email or web address] Internal Medicine 10/02/15 10/20/20 Hoang Mitchell MD [address] [facility] 501_[place] [address] [email or web address] Consulting Provider Rheumatology 10/02/15 Austin Montoya MD [address] [place] [address] [email or web address] Historical LMR Provider 03/06/17 05/29/21 Hernan Arzola MD [email or web address] Historical LMR Provider 03/06/17 10/20/20 Scott Quiroz MD [address] [place] [address] [email or web address] Historical LMR Provider 03/06/17 10/20/20 [place] [address] [place] [address] Historical LMR Provider 03/06/17 Aaron Hardy MD [address] [place] [address] [email or web address] Primary Oncologist Hematology and Oncology 11/30/2208/23 Mee Badillo MBBS [email or web address] Primary Oncologist Medical Oncology 08/25/23 documented as of this encounter Additional Source Comments The information contained in this document represents components of the legal health record. It is not the complete legal health record.[facility]
--- OUTSIDE RECORDS SUMMARY | 2025-03-28 15:46 | XMS_ITS | Encounter Summary ---
Author Organization [facility] Address [address] [place] [address] [place] [address] Phone Care Team Providers Care Auto Clutch Specialist Name Role Phone Hernan Arzola MD Unavailable [email or web address] Hoang Mitchell MD Unavailable [phone] Austin Montoya MD Unavailable [phone] Hernan Arzola MD Unavailable [facility] [email or web address] Scott Quiroz MD Unavailable Gabrile Malik MD Unavailable [phone] Scott Quiroz MD Primary Care Provider [phone] Aaron Collins MD Unavailable [phone] Unknown, Unknown Primary Care Provider Mee Beyer Unavailable [phone] Pcp, Unknown Primary Care Provider UnavailAngelia Wynn Primary Care Provider [phone] Reason for Referral * Physical Therapy (Routine) - Closed Specialty Diagnoses / Procedures Referred By Lasha foreman Referred To Contact Physical Therapy Diagnoses Encounter for rehabilitation Pelvic Floor Procedures Evaluate & Treat Ketan Head MD Phone: tel: fax: mailto:[email or web address] [address] [address] Phone: tel: Referral ID Status Reason Start Date Expiration Date Visits Re quested Visits Authorized [id number] Closed 05/24/2018 05/21/2020 99 99 Encounter Details Date Type Department Care Team (Latest Contact Info) Description 03/19/2019 Transcribe Orders [facility] 8 [place] [address] Ketan Head MD [address] [place] [address], [address] [address] [email or web address] Encounter for rehabilitation (Primary Dx) Social [...] Diagnoses Orde r Schedule Ambulatory referral to [facility] Physical Therapy Outpatient Referral Routine Encounter for rehabilitation Ordered: 03/19/2019 documented as of this encounter Visit Diagnoses Diagnosis Encounter for rehabilitation- Primary documented in this encounter Additional Health Concerns Infection Onset Date Last Indicated Resolved Time CoV-Risk 03/04/2021 03/04/2021 03/14/2021 1:22 AM EDT documented as of this encounter Care Teams Auto Clutch Specialist Relationship Specialty Start Date End Date Scott Quiroz MD [address] [place] [address] [email or web address] PCP - General Internal Medicine 10/24/17 12/19/22 Unknown, Kandy, PCP - General 08/01/23 08/16/23 Pcp, Unknown PCP - General 09/19/23 07/24/24 Angelia Montoya PA [address] [place] [address] PCP - General Physician Print Graphic Designer 01/31/25 Hernan Arzola MD [email or web address] Internal Medicine 10/02/15 10/20/20 Hoang Mitchell MD [address] [place] [address] [address]_[place] [address] [email or web address] Consulting Provider Rheumatology 10/02/15 Austin Montoya MD [address] [place] [address] [email or web address] Historical LMR Provider 03/06/17 05/29/21 Hernan Arzola MD [email or web address] Historical LMR Provider 03/06/17 10/20/20 Scott Quiroz MD [address] [place] [address] [email or web address] Historical LMR Provider 03/06/17 10/20/20 Gabriel Malik MD [address] [address] Historical LMR Provider 03/06/17 2 Aaron Collins MD [address] [place] [address] [email or web address] Primary Oncologist Hematology and Oncology 11/30/2208/23 Mee Badillo MBBS [email or web address] Primary Oncologist Medical Oncology 08/25/23 documented as of this encounter Additional Source Comments The information contained in this document represents components of the legal health record. It is not the complete legal health record.[facility]
--- OUTSIDE RECORDS SUMMARY | 2025-03-28 15:46 | XMS_ITS | Encounter Summary ---
Author Organization [employer] Address [address] [facility] 7 [place] [address] Care Team Providers Care Supervisor Production Managing Name Role Phone Unavailable Primary Care Provider [...]
--- OUTSIDE RECORDS SUMMARY | 2025-03-28 15:46 | XMS_ITS | Encounter Summary ---
Author Organization [facility] Address [address] [employer] [facility] [address] [place] [address] Phone Care Team Providers Care Buckle Stringer Name Role Phone Hernan Arzola MD Unavailable [email or web address] Hoang Mitchell MD Unavailable [phone] Austin Montoya MD Unavailable [phone] Hernan Arzola MD Unavailable [facility] Scott Quiroz MD Unavailable [phone] Gabriel Malik MD Unavailable Scott Quiroz MD Primary Care Provider Aaron Collins MD Unavailable Unknown, Unknown Primary Care Provider Mee Beyer Unavailable [phone] Pcp, Unknown Primary Care Provider UnavailAngelia Wynn Primary Care Provider Encounter Details Date Type Department Care Team (Late st Contact Info) Description 07/03/2018 Procedure Pass [facility] PERIOPERATIVE DEPT [address] [place] [id number] Social History Tobacco Use Types Packs/Day Years [...] documented as of this encounter Care Teams Buckle Stringer Relationship Specialty Start Date End Date Scott Quiroz MD [address] [place] [address] [email or web address] PCP - General Internal Medicine 10/24/17 12/19/22 Unknown, Unknown, MD PCP - General 08/01/23 08/16/23 Pcp, Unknown PCP - General 09/19/23 07/24/24 Angelia Montoya PA [address] [place] [address] PCP - General Physician Landing Scaler 01/31/25 Hernan Arzola MD [email or web address] [email or web address] Internal Medicine 10/02/15 10/20/20 Hoang Mitchell MD [address] [place] [address] 501_[place] [address] [email or web address] Consulting Provider Rheumatology 10/02/15 Austin Montoya MD [address] [place] [address] [email or web address] Historical LMR Provider 03/06/17 05/29/21 Hernan Arzola MD [email or web address] Historical LMR Provider 03/06/17 10/20/20 Scott Quiroz MD [address] [place] [address] [email or web address] Historical LMR Provider 03/06/17 10/20/20 [place] [address] [place] [address] Historical LMR Provider 03/06/17 Aaron Hardy MD [address] [place] [address] [email or web address] Primary Oncologist Hematology and Oncology 11/30/2208/23 Mee Badillo MBBS [email or web address] Primary Oncologist Medical Oncology 08/25/23 documented as of this encounter Additional Source Comments The information contained in this document represents components of the legal health record. It is not the complete legal health record.[facility]
--- OUTSIDE RECORDS SUMMARY | 2025-03-28 15:46 | XMS_ITS | Clinical Summary ---
Author Organization [facility] Address [address] [place] [address] Care Team Providers Care Breaker Oiler Name Role Phone Scott Quiroz Primary Care Provider [phone] Allergies Active Allergy Reactions Criticality Noted Date [...] 2025 , 03/23/2022, 03/31/2021, Additional history exists Fall Risk Screening 09/25/2025 09/25/2024 DTaP,Tdap,and Td Vaccines (2 - Td or Tdap) 11/10/2033 11/11/2023 Hepatitis B Vaccines Aged Out No long er eligible based on patient's age to complete this topic Insurance MEDICARE Advance Directives Documents on File Type Date Recorded Patient Hematology Technician Expl anation Health Care Proxy 09/25/2024 10:19 PM Check list * Full Code (Latest Code Status on File) Date Activated Date Inactivated Comments 07/18/2024 7:29 PM 09/25/2024 4:27 PM Healthcare Agents on File Name Relationship Healthcare Agent [facility] p Communication Jony S Friend Health Care Agent Care Teams Breaker Oiler Relationship Specialty Start Date End Date Scott Quiroz [address] [place] [address] PCP - General Internal Medicine 08/20/24
--- OUTSIDE RECORDS SUMMARY | 2025-03-28 15:46 | XMS_ITS | Encounter Summary ---
Author Organization [facility] Address [address] [facility] [address] [place] [address] Phone Care Team Providers Care Art Framing Manager Name Role Phone Hernan Arzola MD Unavailable [email or web address] Hoang Mitchell MD Unavailable [phone] Austin Montoya MD Unavailable [phone] Hernan Arzola MD Unavailable [email or web address] Scott Quiroz MD Unavailable Gabriel Malik MD Unavailable [phone] Hernan Arzola MD Primary Care Provider [email or web address] Scott Quiroz MD Primary Care Provider Aaron Collins MD Unavailable [phone] Unknown, Unknown Primary Care Provider Mee Beyer Unavailable [phone] Pcp, Unknown Primary Care Provider Angelia Alvarez Primary Care Provider [phone] Encounter Details Date Type Department Care Team (Late st Contact Info) Description 08/24/2017 Procedure Pass [facility] [address] [place] [id number] Social History Tobacco Use Types Packs/Day Years [...] documented as of this encounter Care Teams Art Framing Manager Relationship Specialty Start Date End Date Hernan Arzola MD [email or web address] PCP - General Rheumatology 04/10/17 10/23/17 Scott Quiroz MD [address] [place] [address] [email or web address] PCP - General Internal Medicine 10/24/17 12/19/22 Unknown, Unknown, MD PCP - General 08/01/23 08/16/23 Pcp, Unknown PCP - General 09/19/23 07/24/24 Angelia Montoya PA [address] [place] [address] PCP - General Physician Painter 01/31/25 Hernan Arzola MD [email or web address] Internal Medicine 10/02/15 10/20/20 Hoang Mitchell MD [address] [place] [address] 501_[place] [address] [email or web address] Consulting Provider Rheumatology 10/02/15 Austin Montoya MD [address] [place] [address] [email or web address] Historical LMR Provider 03/06/17 05/29/21 Hernan Arzola MD [email or web address] Historical LMR Provider 03/06/17 10/20/20 Scott Quiroz MD [address] [place] [address] [email or web address] Historical LMR Provider 03/06/17 10/20/20 [place] [address] [place] [address] Historical LMR Provider 03/06/17 2 Aaron Collins MD [address] [address] Primary Oncologist Hematology and Oncology 11/30/2208/23 Mee Badillo MBBS [email or web address] Primary Oncologist Medical Oncology 08/25/23 documented as of this encounter Additional Source Comments The information contained in this document represents components of the legal health record. It is not the complete legal health record.[facility]
--- OUTSIDE RECORDS SUMMARY | 2025-03-28 15:46 | XMS_ITS | Clinical Summary ---
Author Organization [facility] Address [address] [place] [address] Phone Care Team Providers Care Flagman Name Role Phone Hoang Mitchell MD Unavailable [phone] Mee Badillo MBBS Unavailable [phone] Angelia Montoya Primary Care Provider [phone] Allergies Active Allergy Reactions Criticality Noted Date [...] at this time-he is followed closely by marble setter oncologist every 6 months. Assessment & Plan (01/16/2024 11:14 PM EDT): IMPRESSION: This is a 73-year-old man with the following diagnoses. MGUS - IgA [place] Anemia of chronic disease/inflammation DISCUSSION: I discussed [...] am requesting advice from his co- managing manager club at [facility] Mitchell on [...] B cells. He will contact her consulting manager club in [place] to get his feeling on further delaying [...] reagent. Its performance characteristics were determined by [facility] in a manner consistent with CLIA requirements. [...] we will measure immunoglobulin levels along with NJ-3 CBC CRP and chemistry profile. No evidence [...] Rituxan infusion. Reviewed rheumatology notes from the [facility]. Reviewed lab work just prior [...] Range Status Specimen Source 03/09/2020 NASOPHARYNGEAL SWAB (FIXED INCOME DIRECTOR) Final COVID-19 Comment 03/09/202020200312 Final COVID Testing Status 03/09/2020 Sent [place] [facility] Final Symptomatic? [...] total of 28 minutes were spent in hdkx-lb-mkaz conversation with the patient coordinating my care with that of the referring manager club in [place], IV infusion therapy and his primary care [...] developed and its performance characteristics determined by [facility] in a manner consistent with CLIA requirements. [...] will speak to the thoracic specialist in [place] when he feels it is necessary to [...] 50% of this 30-minute visit was spent aylr-qw-obqs conversation with the patient going over the [...] The plan will be to consult the terrazzo grinder at [facility] who did the last radial dilatation [...] 4 weeks and he will see his manager club in [place] in 6 weeks. I reviewed lab work [...] recently had a dilatation procedure done at [facility]. This was done with a rigid [...] this 28 minute visit was spent in gtma-jv-vdbw conversation with the patient going over the [...] appointment within 2 weeks to see the manager club in [place]. My point of view the patient is [...] strongly advise a repeat visit to the service loss control consultant for testing. 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 08/20/19 22 Overview (07/12/2014): Stenosis of trachea Encounters Date Type Department Care Team Description 01/31/2025 10:29 AM EDT - 02/01/2025 11:49 PM EDT Emergency [facility] [address] [place] [address] Mildred Moon MD, PhD Mervat, MD Noel Monk Alberto Juan Ignacio, MD Steinberg, Philip Mckeon MD Discharge Disposition: Hospice/Medical Facility 01/16/2025 Orders Only [facility] [address] [place] [id number] Homehealth, Interface ProviderMD 01/13/2025 7:06 AM EDT - 01/13/2025 11:59 PM EDT Hospital Encounter [facility] [address] [place] [address] [place] [address] Chau Reece MD Discharge Disposition: Home or Self Care 01/13/2025 Transcribe Orders [facility] Specimen Processing [address] [place] [address] Chau Reece MD Anxiety (Primary Dx) 01/06/2025 8:05 AM EDT - 01/06/2025 11:59 PM EDT Hospital Encounter [facility] [address] [place] [address] Doreen Garcia NP Discharge Disposition: Home or Self Care 01/06/2025 Transcribe Orders [facility] Specimen Processing [address] [place] [address] Doreen Garcia NP Illness (Primary Dx) from Last 3 Months Immunizations Immunization Administration [...] 03/23/2022, 03/31/2021, Additional history exists COVID-19 VACCINE (2024- season) 2025 02/23/2024, 11/07/2021, 12/04/2020, Additional history [...] this topic Medical Devices Implanted Type Area Manager Mission Device Identifier Shelf Expiration Date Model / Serial / Lot Syringe Carboxymethylcellulose 1.0 Cc Augment Vocal Fold Radiesse Voice Prolaryn Gel Sodium - [id number] Implanted:Qty: 1 on 05/19/2023 by Jhon Gutiérrez MD at [facility] N/A: Vocal [employer] 12/25/2024 [id number] / / [id number] Procedures Procedure Name Priority Date/Time Associated Diagnosis Comments TOXICOLOGY SCREEN, URINE STAT 01/31/2025 11:26 AM EDT TSH WITH REFLEX Routine 01/31/2025 10:41 AM EDT MAGNESIUM Routine 01/31/2025 10:41 AM EDT TROPONIN STAT 01/31/2025 10:41 AM EDT ETHANOL, BLOOD STAT 01/31/2025 10:41 AM EDT LFTS (HEPATIC PANEL) STAT 01/31/2025 10:41 AM EDT BASIC METABOLIC PANEL (BMP) STAT 01/31/2025 10:41 AM EDT CBC AND DIFFERENTIAL STAT 01/31/2025 10:41 AM EDT ECG 12-LEAD STAT 01/31/2025 10:27 AM EDT CBC AND DIFFERENTIAL Routine 01/13/2025 4:55 AM EDT Anxiety BASIC METABOLIC PANEL (BMP) Routine 01/13/2025 4:55 AM EDT Anxiety CBC AND DIFFERENTIAL Routine 01/06/2025 5:40 AM EDT Illness BASIC METABOLIC PANEL (BMP) Routine 01/06/2025 5:40 AM EDT Illness LIPID PANEL Routine 01/06/2025 5:40 AM EDT Illness HEMOGLOBIN A1C Routine 01/06/2025 5:40 AM EDT Illness ENDOSCOPY, COLON 10/06/2023 12:2 9 PM EDT FECAL IMMUNOCHEMICAL BLOOD TEST X1 (FIT) Routine 01/16/2023 1:00 PM EDT Other iron deficiency anemia from Last 3 Months or Most Recently Relevant to Health Maintenance Results * (ABNORMAL) Toxicology screen, urine (01/31/2025 11:26 AM EDT) Pathologist [facility] URINE CANNABINOIDS NONE DETECTED NONE DETECTED [facility] Comment:Cutoff: 50 ng/mL URINE COCAINE METAB NONE DETECTED NONE DETECTED [facility] Comment:Cutoff: 300 ng/mL URINE AMPHETAMINES NONE DETECTED NONE DETECTED [facility] Comment:Cutoff: 1000 ng/mL URINE METHADONE NONE DETECTED NONE DETECTED [facility] Comment:Cutoff: 300 ng/mL URINE OPIATES NONE DETECTED NONE DETECTED [facility] Comment:Cutoff: 300 ng/mL URINE PHENCYCLIDINE NONE DETECTED NONE DETECTED [facility] Comment:Cutoff: 25 ng/mL URINE OXYCODONE NONE DETECTED NONE DETECTED [facility] Comment:Cutoff: 300 ng/mL URINE BARBITURATES NONE DETECTED NONE DETECTED [facility] Comment:Cutoff: 200 ng/mL URINE BENZODIAZEPINE Positive(A) NONE DETECTED [facility] Comment:Cutoff: 200 ng/mL URINE BUPRENORPHINE NONE DETECTED NONE DETECTED [facility] Comment:Cutoff: 5 ng/mL Fentanyl, urine NONE DETECTED NONE DETECTED [facility] Comment: Cutoff: 5 ng/mL INTERPRETATION FOR TOXICOLOGY PANEL: These results are unconfirmed and should be used for Medical Treatment purposes only. Urine (Urine) 01/31/2025 11: 26 AM EDT 01/31/2025 1:19 PM EDT us Kolton Lion PA-C LAB URINE ORDERABLES Final Res ult [address] [address] * Ethanol, blood (01/31/2025 10:41 AM EDT) ETHANOL <10 <10 mg/dL [facility] Blood 01/31/2025 10:4 1 AM EDT 01/31/2025 10:46 AM EDT us Kolton Lion PA-C LAB BLOOD BKR ORDERABLES Final Result Performing Organization Address [facility] Co de Phone Number [address] [address] * TSH with reflex (01/31/2025 10:41 AM EDT) TSH 1.75 0.27 - 4.20 uIU/mL [facility] 01/31/2025 10:4 1 AM EDT 01/31/2025 10:46 AM EDT Kolton Lion PA-C LAB BLOOD BKR ORDERABLES Final Result Performing Organization Address City/[facility]/ZIP Co de Phone Number [address] [address] * (ABNORMAL) LFTs (hepatic panel) (01/31/2025 10:41 AM EDT) ALKALINE PHOSPHATASE 112 39 - 117 U/L [facility] TOTAL BILIRUBIN <0.2 0.0 - 1.2 mg/dL [facility] DIRECT BILIRUBIN <0.1 0.0 - 0.2 mg/dL [facility] Bilirubin (Indirect) NOT CALCULATED 0 - 1.5 mg/dL [facility] AST 18 0 - 37 U/L [facility] ALT 15 0 - 40 U/L [facility] TOTAL PROTEIN 6.3(L) 6.5 - 8.0 g/dL [facility] ALBUMIN 3.6(L) 3.9 - 4.8 g/dL [facility] GLOBULIN 2.7 1 - 4.8 g/dL [facility] A/G Ratio 1.33 1.00 - 4.80 RATIO [facility] Blood 01/31/2025 10:4 1 AM EDT 01/31/2025 10:46 AM EDT Kolton Lion PA-C LAB BLOOD BKR ORDERABLES Final Result [facility] [address] [place] [address] * (ABNORMAL) CBC and differential (01/31/2025 10:41 AM EDT) Only the most recent of3 resultswithin the time period is included. WBC 8.95 4.00 - 11.00 K/uL [facility] RBC 3.80(L) 4.50 - 5.90 M/uL [facility] HGB 11.1(L) 13.5 - 17.5 g/dL [facility] HCT 34.3(L) 41.0 - 53.0 % [facility] PLT 275 150 - 450 K/uL [facility] MCV 90.3 80.0 - 100.0 fL [facility] MCH 29.2 27.0 - 31.0 pg [facility] MCHC 32.4 32.0 - 36.0 g/dL [facility] RDW 16.5(H) 11.5 - 14.5 % [facility] MPV 10.4 8.4 - 12.0 fL [facility] NRBC 0.00 0.00 /100 WBCs [facility] ABSOLUTE NRBC 0.00 0.00 K/uL [facility] DIFF METHOD Auto [facility] NEUTS 71.7 48.0 - 76.0 % [facility] LYMPHS 12.4(L) 18.0 - 41.0 % [facility] MONOS 13.7(H) 4.0 - 11.0 % [facility] EOS 1.1 0.0 - 5.0 % [facility] BASOS 0.4 0.0 - 1.5 % [facility] Granulocytes, immature (%) 0.7 0.0 - 0.9 % [facility] ABSOLUTE NEUTS 6.41 1.92 - 7.60 K/uL [facility] ABSOLUTE LYMPHS 1.11 0.72 - 4.10 K/uL [facility] ABSOLUTE MONOS 1.23(H) 0.16 - 1.10 K/uL [facility] ABSOLUTE EOS 0.10 0.00 - 0.50 K/uL [facility] ABSOLUTE BASOS 0.04 0.00 - 0.15 K/uL [facility] Granulocytes, immature 0.06 0.00 - 0.09 K/uL [facility] Blood 01/31/2025 10:4 1 AM EDT 01/31/2025 10:46 AM EDT Kolton Lion PA-C LAB BLOOD BKR ORDERABLES Final Result [address] [address] * (ABNORMAL) Troponin (01/31/2025 10:41 AM EDT) Troponin-T, HS Gen5 17(H) 0 - 14 ng/L [facility] Blood 01/31/2025 10:4 1 AM EDT 01/31/2025 10:46 AM EDT Kolton Lion PA-C LAB BLOOD BKR ORDERABLES Final Result [address] [address] * Magnesium (01/31/2025 10:41 AM EDT) MAGNESIUM 2.3 1.6 - 2.6 mg/dL [facility] 01/31/2025 10:4 1 AM EDT 01/31/2025 10:46 AM EDT Kolton Lion PA-C LAB BLOOD BKR ORDERABLES Final Result Performing Organization Address City/[facility] Co de Phone Number [address] [address] * (ABNORMAL) Basic metabolic panel (01/31/2025 10:41 AM EDT) Only the most recent of3 resultswithin the time period is included. SODIUM 141 133 - 146 mmol/L [facility] CHLORIDE 109(H) 96 - 108 mmol/L [facility] POTASSIUM 4.0 3.3 - 5.1 mmol/L [facility] CO2 20(L) 21 - 35 mmol/L [facility] BUN 14 6 - 19 mg/dL [facility] CREATININE 0.70 0.5 - 1.5 mg/dL [facility] GLUCOSE 96 70 - 99 mg/dL [facility] CALCIUM 8.9 8.4 - 10.3 mg/dL [facility] EGFR 96 >59 mL/min/1.7 3m2 [facility] Comment:Estimated glomerular filtration rate calculated using the CKD-EPI refit equation. ANION GAP 16 10 - 20 mmol/L [facility] Blood 01/31/2025 10:4 1 AM EDT 01/31/2025 10:46 AM EDT Kolton Lion PA-C LAB BLOOD BKR ORDERABLES Final Result Performing Organization Address City/[facility] Co de Phone Number [address] [address] * ECG 12-LEAD (01/31/2025 10:27 AM EDT) Ventricular Rate EKG/MIN 78 BPM [facility] Atrial Rate 78 BPM [facility] NJ Interval 158 ms [facility] QRS Duration 72 ms [facility] QT Interval 404 ms [facility] QTC Interval 460 ms [facility] P [place] 52 degrees [facility] R Wave [place] 23 degrees [facility] T Wave [place] 45 degrees [facility] 01/31/2025 10:2 7 AM EDT 01/31/2025 3:44 PM EDT Narrative [facility] - 01/31/2025 3:45 PM EDT Sinus rhythm with marked sinus arrhythmia Otherwise normal ECG When compared with ECG of 17-Nov-2022 13:13, No significant change was found Confirmed by Jak Jones ([id number]) on 01/31/2025 3:44:59 PM Kolton Lion PA-C ECG ORDERABLES Final Result Performing Organization Address City/[facility]/ZIP Co de Phone Number [facility] * (ABNORMAL) Hemoglobin A1c (01/06/2025 5:40 AM EDT) HEMOGLOBIN A1C 6.1(H) 4.3 - 5.8 % [facility] Blood 01/06/2025 5:40 AM EDT 01/06/2025 8:29 AM EDT Doreen Garcia FIXED INCOME DIRECTOR LAB BLOOD BKR ORDERABLES F inal Result Performing Organization Address [facility] Co de Phone Number [address] [address] * (ABNORMAL) Lipid panel (01/06/2025 5:40 AM EDT) HDL 36 mg/dL [facility] Comment: Interpretation <40 mg/dL: Low HDL cholesterol (major risk factor for CHD) Greater than or equal to 60 mg/dL: High HDL cholesterol ( negative risk factor for CHD) HDL - cholesterol is affected by a number of factors, e.g. smoking, excerise, hormones, sex and age. CHOLESTEROL 224 0 - 240 mg/dL [facility] TRIGLYCERIDES 325(H) 30 - 160 mg/dL [facility] LDL 123 50 - 129 mg/dL [facility] Comment: LDL levels in terms of risk for coronary heart disease: <100 mg/dL: Optimal 100-129 mg/dL: Near or above optimal 130-159 mg/dL: Borderline high 160-189 mg/dL: High >190 mg/dL: Very High CARDIAC RISK RATIO 6.2(H) 3.4 - 5.0 [facility] Blood 01/06/2025 5:40 AM EDT 01/06/2025 8:29 AM EDT us Doreen Stephens Jose FIXED INCOME DIRECTOR LAB BLOOD BKR ORDERABLES F inal Result [facility] [address] [place] [address] * ENDOSCOPY, COLON (10/06/2023 12:29 PM EDT) Narrative Transcriptions Orlando Grace MD - 10/06/2023 12:29 PM EDT [facility] Patient Name: Lindsey Smith Attending MD:: ORLANDO GRACE MD, Procedure Date: 10/06/2023 12:29 PM Date of : 1950 Age: 73 Admit Type: Outpatient Gender: Male Room: [place] [address] Referring MD: Na Faria Exam Type: Colonoscopy [...] 12:29 PM Procedure Code(s): --- Professional --- 78260, Colonoscopy, flexible; diagnostic, including collection of specimen(s) by brushing or washing, when performed (separateprocedure) --- Technical --- 00055, Colonoscopy, flexible; diagnostic, including collection of specimen(s) by brushing or washing, when performed (separateprocedure) Diagnosis Code(s): --- Professional --- K64.8, Other hemorrhoids R19.5, Other fecal abnormalities --- Technical --- K64.8, Other hemorrhoids R19.5, Other fecal abnormalities CPT copyright 2021 [employer]. All rights reserved. The codes documented in this report are preliminary and upon educational psychology teacher reviewmay be revised to meet current compliance requirements. Procedure Date: 10/06/2023 12:29:[address] [place] [address] us Na Faria ASSISTANT MANAGER/EMBALMER GI PROCEDURE ORDERABLES Fin al Result * (ABNORMAL) Fecal immunochemical test x1 (FIT) (01/16/2023 1:00 PM EDT) Immuno Fecal Occult Positive(A ) Negative [facility] Stool (Stool) 01/16/2023 1:0 0 PM EDT 01/16/2023 2:03 PM EDT us Aaron Collins MD LAB BODY FLUIDS AND ST OOL ORDERABLES Final Result [facility] [address] [place] [address] from Last 3 Months or Most Recently Relevant to Health Maintenance Insurance [place] [id number] MEDICARE PART A & B MEDICARE PART A & B MEDICARE PART A & B MEDICARE PART A & B MEDICARE PART A & B MEDICARE PART A & B MEDICARE PART A & B Member Subscriber Plan / Payer (Ef fective 2010-Present) Name:Lindsey Smith Member ID:[id number] Relation to Subscriber:Self Name:Lindsey Smith Subscriber ID:[id number] Payer ID:[id number] Group ID:Not on file Type:Medicare Address: [employer] [address] [place] [id number] MEDICARE PART A & B Member Subscriber Plan / Payer (Ef fective 2010-Present) Name:Lindsey Smith Member ID:[id number] Relation to Subscriber:Self Name:Lindsey Smith Subscriber ID:[id number] Payer ID:[id number] Group ID:Not on file Type:Medicare Address: [employer] [address] Advance Directives For more information, please contact: [phone] (9AM - 5PM [facility], Monday-Monday) Documents on File Type Date Recorded Patient Basting Puller Expl anation Healthcare Proxy 12/18/2015 3:47 PM [...] 12:37 PM 12/11/2015 2:27 PM Care Teams Flagman Relationship Specialty Start Date End Date Angelia Montoya PA [address] [place] [address] PCP - General Physician Opener 01/31/25 Hoang Mitchell MD [address] [place] [address]_[place] [address] [email or web address] Consulting Provider Rheumatology 10/02/15 Mee Badillo MBBS [address] [place] [address]_[place] [address] [email or web address] Primary Oncologist Medical Oncology 08/25/23 Additional Source Comments The information contained in this document represents components of the legal health record. It is not the complete legal health record.[facility]
--- OUTSIDE RECORDS SUMMARY | 2025-03-28 15:46 | XMS_ITS | Encounter Summary ---
Author Organization [facility] Address [address] [place] [address] Phone Care Team Providers Care Research Associate Molecular Biology Name Role Phone Hoang Mitchell MD Unavailable [phone] Aaron Collins MD Unavailable Unknown, Unknown Primary Care Provider Mee Beyer MBBS Unavailable [phone] Pcp, Unknown Primary Care Provider UnavailAngelia Wynn Primary Care Provider [phone] Encounter Details Date Type Department Care Team (Late st Contact Info) Description 05/19/2023 Procedure Pass [facility] Periop [address] [place] [address] Social History Tobacco Use Types Packs/Day Years [...] Entry Date Author No 10/01/2016 8:00 AM Alam Jackson MD documented in this encounter Plan of Treatment Not on file documented as of this encounter Visit Diagnoses Not on filedocumented in this encounter Additional Health Concerns Assessment Noted Time PHQ-2 Depression Total Score: 2 08/31/19 23 1:37 PM EDT documented as of this encounter Care Teams Research Associate Molecular Biology Relationship Specialty Start Date End Date Unknown, Unknown, PCP - General 08/01/23 08/16/23 Pcp, Unknown PCP - General 09/19/23 07/24/24 Angelia Montoya PA [address] [place] [address] PCP - General Physician Image Consultant 01/31/25 Hoang Mitchell MD [address] [place] [address] [address] [address] [email or web address] Provider Rheumatology 10/02/15 Aaron Collins MD [address] [address] [email or web address] Primary Oncologist Hematology and Oncology 11/30/2208/23 Mee Badillo MBBS [email or web address] Primary Oncologist Medical Oncology 08/25/23 documented as of this encounter Additional Source Comments The information contained in this document represents components of the legal health record. It is not the complete legal health record.[facility]
--- OUTSIDE RECORDS SUMMARY | 2025-03-28 15:46 | XMS_ITS | Encounter Summary ---
Author Organization [facility] Address [address] [place] [address] Phone Care Team Providers Care Bark Scaler Name Role Phone Hoang Mitchell MD Unavailable Aaron Collins MD Unavailable [phone] Unknown, Unknown Primary Care Provider Mee Beyer MBBS Unavailable [phone] Pcp, Unknown Primary Care Provider UnavailAngelia Wynn Primary Care Provider [phone] Encounter Details Date Type Department Care Team (Latest Contact Info) Description 05/02/2023 Transcribe Orders [facility]leb [address] [place] [address] Meme Gordillo MD [address], [address] [place] [address] [email or web address] MGUS (monoclonal gammopathy of unknown [...] documented as of this encounter Care Teams Bark Scaler Relationship Specialty Start Date End Date Unknown, Unknown, MD PCP - General 08/01/23 08/16/23 Pcp, Unknown PCP - General 09/19/23 07/24/24 Angelia Montoya PA [address] [place] [address] PCP - General Physician Conveyor System Dispatcher 01/31/25 Hoang Mitchell MD [address] [place] [address] [address] [address] [email or web address] DU Consulting Provider Rheumatology 10/02/15 Aaron Collins MD [address] [address] Primary Oncologist Hematology and Oncology 11/30/2208/23 Mee Badillo MBBS [email or web address] Primary Oncologist Medical Oncology 08/25/23 documented as of this encounter Additional Source Comments The information contained in this document represents components of the legal health record. It is not the complete legal health record.[facility]
--- OUTSIDE RECORDS SUMMARY | 2025-03-28 15:47 | XMS_ITS | Encounter Summary ---
Author Organization [facility] Address [address] [place] [address] Phone Care Team Providers Care Artillery Meteorological Man Name Role Phone Hoang Mitchell MD Unavailable Aaron Collins MD Unavailable Unknown, Unknown Primary Care Provider Mee Beyer MBBS Unavailable [phone] Pcp, Unknown Primary Care Provider UnavailAngelia Wynn Primary Care Provider [phone] Encounter Details Date Type Department Care Team (Late st Contact Info) Description 01/04/2023 Procedure Pass [facility], Ct Scan - [address] [address] Social History Tobacco Use Types Packs/Day Years [...] documented as of this encounter Care Teams Artillery Meteorological Man Relationship Specialty Start Date End Date Unknown, Kandy, PCP - General 08/01/23 08/16/23 Pcp, Unknown PCP - General 09/19/23 07/24/24 Angelia Montoya PA [address] [place] [address] PCP - General Physician Inventory Technician 01/31/25 Hoang Mitchell MD [address] [place] [address] [address]_[place] [address] [email or web address] Consulting Provider Rheumatology 10/02/15 Aaron Collins MD [address] [address] [email or web address] Primary Oncologist Hematology and Oncology 11/30/2208/23 Mee Badillo MBBS [email or web address] Primary Oncologist Medical Oncology 08/25/23 documented as of this encounter Additional Source Comments The information contained in this document represents components of the legal health record. It is not the complete legal health record.[facility]
--- OUTSIDE RECORDS SUMMARY | 2025-03-28 15:47 | XMS_ITS | Encounter Summary ---
Author Organization [facility] Address [facility] [address] [place] [address] Phone Care Team Providers Care Wagon Winder Name Role Phone Hoang Mitchell MD Unavailable Austin Montoya MD Unavailable [phone] Gabriel Malik MD Unavailable [phone] Scott Quiroz MD Primary Care Provider [phone] KarinaAraon avendano MD Unavailable Unknown, Unknown Primary Care Provider Mee Beyer Unavailable [phone] Pcp, Unknown Primary Care Provider UnavailAngelia Wynn Primary Care Provider [phone] Encounter Details Date Type Department Care Team (Late st Contact Info) Description 03/06/2021 Procedure Pass [facility], Ct Scan - [address] [address] Social History Tobacco Use Types Packs/Day Years [...] 5:31 PM EDT Shakila Balderas RN * Ward Suicide Severity Rating Scale (Screener/Recent Self-Report) Question [...] documented as of this encounter Care Teams Wagon Winder Relationship Specialty Start Date End Date Scott Quiroz MD [address] [place] [address] [email or web address] PCP - General Internal Medicine 10/24/17 12/19/22 Unknown, Unknown, MD PCP - General 08/01/23 08/16/23 Pcp, Unknown PCP - General 09/19/23 07/24/24 Angelia Montoya PA [address] [place] [address] PCP - General Physician Pasting Machine Operator 01/31/25 Hoang Micthell MD [address] [place] [address] 501_[place] [address] [email or web address] Consulting Provider Rheumatology 10/02/15 Austin Montoya MD [address] [place] [address] [email or web address] Historical LMR Provider 03/06/17 05/29/21 Gabriel Malik MD [address] [address] Historical LMR Provider 03/06/17 2 Aaron Collins MD [facility] [address] [address] [email or web address] Primary Oncologist Hematology and Oncology 11/30/2208/23 Mee Badillo MBBS [email or web address] Primary Oncologist Medical Oncology 08/25/23 documented as of this encounter Additional Source Comments The information contained in this document represents components of the legal health record. It is not the complete legal health record.[facility]
--- OUTSIDE RECORDS SUMMARY | 2025-03-28 15:47 | XMS_ITS | Encounter Summary ---
Author Organization [facility] Address [address] [place] [address] Phone Care Team Providers Care Loan Processing Supervisor Name Role Phone Hoang Mitchell MD Unavailable Aaron Collins MD Unavailable Unknown, Unknown Primary Care Provider Mee Beyer MBBS Unavailable [phone] Pcp, Unknown Primary Care Provider UnavailAngelia Wynn Primary Care Provider [phone] Encounter Details Date Type Department Care Team (Late st Contact Info) Description 01/04/2023 Procedure Pass [facility], Ct Scan - [address] [address] Social History Tobacco Use Types Packs/Day Years [...] documented as of this encounter Care Teams Loan Processing Supervisor Relationship Specialty Start Date End Date Unknown, Kandy, PCP - General 08/01/23 08/16/23 Pcp, Unknown PCP - General 09/19/23 07/24/24 Angelia Montoya PA [address] [place] [address] PCP - General Physician Senior Electronics Engineer 01/31/25 Hoang Mitchell MD [address] [place] [address] [address]_[place] [address] [email or web address] Consulting Provider Rheumatology 10/02/15 Aaron Collins MD [address] [address] [email or web address] Primary Oncologist Hematology and Oncology 11/30/2208/23 Mee Badillo MBBS [email or web address] Primary Oncologist Medical Oncology 08/25/23 documented as of this encounter Additional Source Comments The information contained in this document represents components of the legal health record. It is not the complete legal health record.[facility]
== END 2025-03-28 14:45 | disposition home or self-care (01) ==
LOC: HO.HMCSH 13:45
PROVIDERS: PCP Physician Assistant Medical; Visit Provider Physician Assistant Medical
DX: I95.1 Orthostatic hypotension (principal); R42 Dizziness and giddiness; F99 Mental disorder, not otherwise specified; Z09 Encounter for follow-up examination after completed treatment for conditions other than malignant neoplasm

== ENCOUNTER → 2025-03-28 13:45 | Outpatient (BNVA) | payer MEDICARE, SELFPAY | PROVIDERS: PCP Physician Assistant Medical; Visit Provider Physician Assistant Medical | DX: Z09 Encounter for follow-up examination after completed treatment for conditions other than malignant neoplasm (principal); I95.1 Orthostatic hypotension; R42 Dizziness and giddiness; F99 Mental disorder, not otherwise specified; Z13.31 Encounter for screening for depression | CPT/HCPCS: 96127; 99496 ==

== ENCOUNTER 2025-04-03 14:32 | Outpatient (AMB) | payer MEDICARE, SELFPAY ==
--- OUTSIDE RECORDS SUMMARY | 2015-10-01 23:00 | XMS_ITS | Encounter Summary ---
Author Organization [facility] Address [address] [place] [address] Phone Care Team Providers Care Substance Abuse Clinician Name Role Phone Scott Quiroz MD Primary Care Provider [phone] Hernan Arzola MD Unavailable [email or web address] [email or web address] Hoang Mitchell MD Unavailable [phone] Encounter Details Date Type Department Care Team (Late st Contact Info) Description 10/02/2015 [facility] Encounter [facility] [address] [place] [address] Teddy Alas MD [address] [facility] [address] [place] [address] [email or web address] [email or web address] Social History Tobacco Use Types Packs/Day Years Used Date Smoking Tobacco: Former Cigarettes 1.5 10 0 05/22/1963 - 05/22/1973 Smokeless Tobacco: Never Alcohol Use Standard Drinks/Week Comments No 0 (1 standard drink = 0.6 oz pur e alcohol) Recovery Sober for 35 yrs Education Answer Date Recorded Are you interested in more education? Not on cheri e 09/15/2022 Are you concerned about learning? Not on file 09/15/2022 No 09/15/2022 No 09/15/2022 Digital Access Answer Date Recorded No 10/12/2022 No 10/12/2022 Reliable internet access at home? Not on file 10/12/2022 Device with a working camera? Not on file Intimate Partner Violence Answer Date R ecorded Are you denied basic needs s uch as food, clothing, or medical care? No 01/31/2025 In the past 12 months have y ou been in a relationship with a person who hurts, threatens, or tries to control you? No 01/31/2025 Are you denied basic needs s uch as food, clothing, or medical care? No 01/31/2025 In the past 12 months have y ou been in a relationship with a person who hurts, threatens, or tries to control you? No 01/31/2025 Comments No Sex and Gender Information Value Date Recorded Sex Assigned at Female 03/18/2019 2:26 PM EDT Legal Sex Male 10:39 AM EDT Gender Identity Transgender Male 03/18/2019 2:26 PM EDT Sexual Orientation Straight 03/18/2019 2: 26 PM EDT documented as of this encounter Functional Status * Calculated C-SSRS Risk Score (Lifetime/Recent) Answer Date of Assessment Author High Risk 01/31/2025 10:22 AM Inderjit Anand RN * [place] Suicide Severity Rating Scale (Screener/Recent Self-Report) Question Answer Date of Assessment Author 1. Wish to be (Past 1 Month) Yes 025 10:22 AM Lurdes Anand RN 2. Non-Specific Active Suici eunice Thoughts (Past 1 Month) Yes 01/31/2025 10:22 AM Lurdes Anand , MARIIA 3. Active Suicidal Ideation with any Methods (Not Plan) Without Intent to Act (Past 1 Month) Yes 01/31/2025 10:22 AM Lurdes Anand RN 4. Active Suicidal Ideation with Some Intent to Act, Without Specific Plan (Past 1 Month) Yes 01/31/2025 10:22 AM Lurdes Anand RN 5. Active Suicidal Ideation with Specific Plan and Intent (Past 1 Month) No 01/31/2025 10:22 AM Lurdes Anand, MARIIA 6. Suicidal Behavior (Lifetime) Yes 10:22 AM Lurdes Anand, MARIIA 6. Suicidal Behavior (3 Months) No 10:22 AM Lurdes Anand RN documented as of this encounter Plan of Treatment Not on file documented as of this encounter Procedures Procedure Name Priority Date/Time Associated Diagnosis Comments XR HEAD OUTSIDE (NO INTERPRETATION) Routine 10/02/2015 12:00 AM EDT documented in this encounter Results * XR Head Outside (No Interpretation) (10/02/2015 12:00 AM EDT) Narrative [facility] IMG INTERFACES - 10/06/2015 10:46 AM EDT This study is for PACS storage only and not for interpretation. Procedure Note SYSTEMGENERATED, DOCUMENTATION - 10/06/2015 This study is for PACS storage only and not for interpretation. us Teddy Alas MD IMG OUTSIDE IMAGING W/ OUT INTERPRETATION Final Result [facility] IMG INTERFACES documented in this encounter Visit Diagnoses Not on filedocumented in this encounter Additional Health Concerns Infection Onset Date Last Indicated Resolved Time CoV-Risk 03/04/2021 03/04/2021 03/14/2021 1:22 AM EDT documented as of this encounter Care Teams Substance Abuse Clinician Relationship Specialty Start Date End Date Scott Quiroz MD [address] [place] [phone] [email or web address] PCP - General 11/19/13 04/09/17 Hernan Arzola MD [email or web address] [facility] .[facility] Internal Medicine 10/02/15 10/20/20 Hoang Mitchell MD [address] [place] [address] [address] [facility]_[place] [address] [email or web address] Consulting Provider Rheumatology 10/02/15 documented as of this encounter Additional Source Comments The information contained in this document represents components of the legal health record. It is not the complete legal health record.[facility]
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
--- OUTSIDE RECORDS SUMMARY | 2025-04-03 17:56 | XMS_ITS | Encounter Summary ---
Author Organization [facility] Address [address] [place] [address] Phone Care Team Providers Care Endband Sizer Name Role Phone Hoang Mitchell MD Unavailable Aaron Collins MD Unavailable Unknown, Unknown Primary Care Provider Mee Beyer MBBS Unavailable [phone] Pcp, Unknown Primary Care Provider UnavailAngelia Wynn Primary Care Provider [phone] Encounter Details Date Type Department Care Team (Late st Contact Info) Description 05/19/2023 Procedure Pass [facility] Periop [address] [place] [address] Social History Tobacco Use Types Packs/Day Years [...] documented as of this encounter Care Teams Endband Sizer Relationship Specialty Start Date End Date Unknown, Unknown, PCP - General 08/01/23 08/16/23 Pcp, Unknown PCP - General 09/19/23 07/24/24 Angelia Montoya PA [address] [place] [address] PCP - General Physician Electromechanical Equipment Tester 01/31/25 Hoang Mitchell MD [address] [place] [address] [address]_[place] [address] [email or web address] Consulting Provider Rheumatology 10/02/15 Aaron Collins MD [address] [address] [email or web address] Primary Oncologist Hematology and Oncology 11/30/2208/23 Mee Badillo MBBS [email or web address] Primary Oncologist Medical Oncology 08/25/23 documented as of this encounter Additional Source Comments The information contained in this document represents components of the legal health record. It is not the complete legal health record.[facility]
--- OUTSIDE RECORDS SUMMARY | 2025-04-03 17:56 | XMS_ITS | Encounter Summary ---
Author Organization [facility] Address [address] [place] [address] Phone Care Team Providers Care Conveyancer Name Role Phone Hernan Arzola MD Unavailable [email or web address] Hoang Mitchell MD Unavailable [phone] Austin Montoya MD Unavailable [phone] Hernan Arzola MD Unavailable [email or web address] Scott Quiroz MD Unavailable [phone] Gabriel Malik MD Unavailable Hernan Arzola MD Primary Care Provider [email or web address] Scott Quiroz MD Primary Care Provider Aaron Collins MD Unavailable [phone] Unknown, Unknown Primary Care Provider Mee Beyer Unavailable [phone] Pcp, Unknown Primary Care Provider Angelia Alvarez Primary Care Provider [phone] Encounter Details Date Type Department Care Team (Late st Contact Info) Description 08/24/[address] [facility] PERIOPERATIVE DEPT [address] [place] [phone] Social History Tobacco Use Types Packs/Day Years [...] documented as of this encounter Care Teams Conveyancer Relationship Specialty Start Date End Date Hernan Arzola MD [email or web address] PCP - General Rheumatology 04/10/17 10/23/17 Scott Quiroz MD [address] [place] [address] [email or web address] PCP - General Internal Medicine 10/24/17 12/19/22 Unknown, Unknown, MD PCP - General 08/01/23 08/16/23 Pcp, Unknown PCP - General 09/19/23 07/24/24 Angelia Montoya PA [address] [place] [address] PCP - General Physician Personnel Monitor 01/31/25 Hernan Arzola MD [email or web address] Internal Medicine 10/02/15 10/20/20 Hoang Mitchell MD [address] [place] [address] 501_[place] [address] [email or web address] Consulting Provider Rheumatology 10/02/15 Austin Montoya MD [address] [place] [address] [email or web address] Historical LMR Provider 03/06/17 05/29/21 Hernan Arzola MD [email or web address] Historical LMR Provider 03/06/17 10/20/20 Scott Quiroz MD [address] [place] [address] [email or web address] Historical LMR Provider 03/06/17 10/20/20 [place] [address] [place] [address] Historical LMR Provider 03/06/17 2 Aaron Collins MD [address] [address] Primary Oncologist Hematology and Oncology 11/30/2208/23 Mee Badillo MBBS [email or web address] Primary Oncologist Medical Oncology 08/25/23 documented as of this encounter Additional Source Comments The information contained in this document represents components of the legal health record. It is not the complete legal health record.[facility]
--- OUTSIDE RECORDS SUMMARY | 2025-04-03 17:56 | XMS_ITS | Encounter Summary ---
Author Organization [facility] Address [address] [employer] [address] [facility] [address] [place] [address] Phone Care Team Providers Care Corn Miller Name Role Phone Hoang Mitchell MD Unavailable Scott Quiroz MD Primary Care Provider Aaron Collins MD Unavailable Unknown, Unknown Primary Care Provider Mee BeyerBS Unavailable Pcp, Unknown Primary Care Provider Angelia Alvarez Primary Care Provider [phone] Encounter Details Date Type Department Care Team (Latest Contact Info) Description 08/24/2022 Transcribe Orders Virtual Department [address] [place] [address] Scott Quiroz MD [address] [place] [address] [email or web address] Cervical spinal stenosis (Primary Dx) Social [...] region documented in this encounter Care Teams Corn Miller Relationship Specialty Start Date End Date Scott Quiroz MD [address] [place] [address] [email or web address] PCP - General Internal Medicine 10/24/17 12/19/22 Unknown, Kandy, PCP - General 08/01/23 08/16/23 Pcp, Unknown PCP - General 09/19/23 07/24/24 Angelia Montoya PA [address] [place] [address] PCP - General Physician Educational Technology Coordinator 01/31/25 Hoang Mitchell MD [address] [place] [address] [address] [address] [email or web address] Consulting Provider Rheumatology 10/02/15 Aaron Collins MD [address] [address] [email or web address] Primary Oncologist Hematology and Oncology 11/30/2208/23 Mee Badillo MBBS [email or web address] Primary Oncologist Medical Oncology 08/25/23 documented as of this encounter Additional Source Comments The information contained in this document represents components of the legal health record. It is not the complete legal health record.[facility]
--- OUTSIDE RECORDS SUMMARY | 2025-04-03 17:56 | XMS_ITS | Encounter Summary ---
Author Organization [facility] Address [address] [place] [address] Phone Care Team Providers Care Line Tender Flakeboard Name Role Phone Hoang Mitchell MD Unavailable Scott Quiroz MD Primary Care Provider Aaron Collins MD Unavailable [phone] Unknown, Unknown Primary Care Provider Mee BeyerBS Unavailable [phone] Pcp, Unknown Primary Care Provider Angelia Alvarez Primary Care Provider [phone] Encounter Details Date Type Department Care Team (Late st Contact Info) Description 08/16/2022 Procedure Pass [facility], Ct Scan - [address] [address] Social History Tobacco Use Types Packs/Day Years [...] 6:04 PM EDT Paul Horn RN * [place] Suicide Severity Rating Scale (Screener/Recent Self-Report) Question [...] on filedocumented in this encounter Care Teams Line Tender Flakeboard Relationship Specialty Start Date End Date Scott Quiroz MD [address] [place] [address] [email or web address] PCP - General Internal Medicine 10/24/17 12/19/22 Unknown, Unknown, PCP - General 08/01/23 08/16/23 Pcp, Unknown PCP - General 09/19/23 07/24/24 Angelia Montoya PA [address] [place] [address] PCP - General Physician Professor Of Fine Art 01/31/25 Hoang Mitchell MD [address] [place] [address] [address]_[place] [address] [email or web address] Consulting Provider Rheumatology 10/02/15 Aaron Collins MD [address] [place] [address] [email or web address] Primary Oncologist Hematology and Oncology 11/30/2208/23 Mee Badillo MBBS [email or web address] Primary Oncologist Medical Oncology 08/25/23 documented as of this encounter Additional Source Comments The information contained in this document represents components of the legal health record. It is not the complete legal health record.[facility]
--- OUTSIDE RECORDS SUMMARY | 2025-04-03 17:56 | XMS_ITS | Encounter Summary ---
Author Organization [facility] Address [address] [place] [address] Phone Care Team Providers Care Motion Picture Photographer Name Role Phone Hoang Mitchell MD Unavailable Aaron Collins MD Unavailable Unknown, Unknown Primary Care Provider Mee Beyer MBBS Unavailable [phone] Pcp, Unknown Primary Care Provider UnavailAngelia Wynn Primary Care Provider [phone] Encounter Details Date Type Department Care Team (Late st Contact Info) Description 05/30/2023 Procedure Pass [facility] Periop [address] [place] [address] Social History Tobacco Use Types Packs/Day Years [...] documented as of this encounter Care Teams Motion Picture Photographer Relationship Specialty Start Date End Date Unknown, Unknown, MD PCP - General 08/01/23 08/16/23 Pcp, Unknown PCP - General 09/19/23 07/24/24 Angelia Montoya PA [address] [place] [address] PCP - General Physician Cash Teller 01/31/25 Hoang Mitcehll MD [address] [place] [address] [address]_[place] [address] [email or web address] Consulting Provider Rheumatology 10/02/15 Aaron Collins MD [address] [address] [email or web address] Primary Oncologist Hematology and Oncology 11/30/2208/23 Mee Badillo MBBS [email or web address] Primary Oncologist Medical Oncology 08/25/23 documented as of this encounter Additional Source Comments The information contained in this document represents components of the legal health record. It is not the complete legal health record.[facility]
--- OUTSIDE RECORDS SUMMARY | 2025-04-03 17:56 | XMS_ITS | Encounter Summary ---
Author Organization [facility] Address [address] [place] [address] [place] [address] Phone Care Team Providers Care Guard Lieutenant Name Role Phone Hernan Arzola MD Unavailable [email or web address] Hoang Mitchell MD Unavailable [phone] Austin Montoya MD Unavailable [phone] Hernan Arzola MD Unavailable [email or web address] Scott Quiroz MD Unavailable Gabriel Malik MD Unavailable Hernan Arzola MD Primary Care Provider [email or web address] [email or web address] Scott Quiroz MD Primary Care Provider Aaron Collins MD Unavailable Unknown, Unknown Primary Care Provider Mee Beyer Unavailable [phone] Pcp, Unknown Primary Care Provider UnavailAngelia Wynn Primary Care Provider [phone] Encounter Details Date Type Department Care Team (Latest Contact Info) Description 04/12/2017 Transcribe Orders [facility] Phleb Kate [address] [place] [address] Hernan Arzola MD [email or web address] Rosie's granulomatosis (Primary Dx) Social History [...] D (TOTAL) 33 30 - 1,000 ng/mL [facility] Blood 04/12/2017 4:41 PM EST 04/12/2017 4:43 PM EST us Hernan Arzola MD LAB BLOOD BKR ORDERABLES F inal Result Performing Organization Address City/[facility]/ZIP Co de Phone Number [address] [address] * C-Reactive Protein (04/12/2017 4:41 PM EST) C REACTIVE PROTEIN 0.2 0 - 0.5 mg/L [facility] Blood 04/12/2017 4:41 PM EST 04/12/2017 4:43 PM EST us Hernan Arzola MD LAB BLOOD BKR ORDERABLES F inal Result Performing Organization Address [facility] Co de Phone Number [address] [address] * Comprehensive metabolic panel (04/12/2017 4:41 PM EST) SODIUM 145 133 - 146 mmol/L [facility] POTASSIUM 4.4 3.3 - 5.1 mmol/L [facility] CHLORIDE 107 96 - 108 mmol/L [facility] CO2 25 21 - 35 mmol/L [facility] BUN 15 6 - 19 mg/dL [facility] CREATININE 0.70 0.5 - 1.5 mg/dL [facility] GLUCOSE 86 70 - 99 mg/dL [facility] ALBUMIN 4.1 3.9 - 4.8 g/dL [facility] TOTAL PROTEIN 6.6 6.5 - 8.0 g/dL [facility] CALCIUM 9.1 8.4 - 10.3 mg/dL [facility] ALKALINE PHOSPHATASE 79 39 - 117 U/L [facility] TOTAL BILIRUBIN 0.2 0 - 1.2 mg/dL [facility] AST 19 0 - 37 U/L [facility] ALT 12 0 - 40 U/L [facility] GLOBULIN 2.5 1 - 4.8 g/dL [facility] EGFR >60 >60 mL/min/1.7 3m2 [facility] Comment:Abnormal if <60. If patient is -Nigerien, multiply the result by 1.21. ANION GAP 17 10 - 20 mmol/L [facility] Blood 04/12/2017 4:41 PM EST 04/12/2017 4:43 PM EST us Hernan Arzola MD LAB BLOOD BKR ORDERABLES F inal Result [facility] [address] [place] [address] * (ABNORMAL) CBC and differential (04/12/2017 4:41 PM EST) WBC 4.36 3.40 - 11.20 K/uL [facility] RBC 3.74(L) 4.50 - 5.50 M/uL [facility] HGB 11.3(L) 13.0 - 17.0 g/dL [facility] HCT 34.8(L) 40.0 - 51.0 % [facility] PLT 230 130 - 400 K/uL [facility] MCV 93.0 79.0 - 98.0 fL [facility] MCH 30.2 27.0 - 34.8 pg [facility] MCHC 32.5 31.5 - 36.0 g/dL [facility] RDW 12.9 10.8 - 14.6 % [facility] MPV 11.7 9.4 - 12.4 fl [facility] NRBC 0.00 /100 WBCs [facility] ABSOLUTE NRBC 0.00 K/uL [facility] DIFF METHOD Auto [facility] NEUTS 58.1 45.30 - 77.70 % [facility] LYMPHS 26.1 12.30 - 39.70 % [facility] MONOS 13.1(H) 4.10 - 12.80 % [facility] EOS 1.4 0 - 7.2 % [facility] BASOS 1.1 0 - 2.80 % [facility] Granulocytes, immature (%) 0.2 0.0 - 0.9 % [facility] ABSOLUTE NEUTS 2.53 1.40 - 7.70 K/uL [facility] ABSOLUTE LYMPHS 1.14 0.60 - 3.20 K/uL [facility] ABSOLUTE MONOS 0.57 0.11 - 0.59 K/uL [facility] ABSOLUTE EOS 0.06 0.01 - 0.50 K/uL [facility] ABSOLUTE BASOS 0.05 0.00 - 0.08 K/uL [facility] Granulocytes, immature 0.01 0.00 - 0.05 K/uL [facility] Blood 04/12/2017 4:41 PM EST 04/12/2017 4:43 PM EST us Hernan Arzola MD LAB BLOOD BKR ORDERABLES F inal Result Performing Organization Address City/State/[facility] Co de Phone Number [facility] [address] [place] [address] documented in this encounter Visit Diagnoses Diagnosis Rosie's granulomatosis- Primary documented in this encounter Additional Health Concerns Infection Onset Date Last Indicated Resolved Time CoV-Risk 03/04/2021 03/04/2021 03/14/2021 1:22 AM EDT documented as of this encounter Care Teams Guard Lieutenant Relationship Specialty Start Date End Date Hernan Arzola MD [email or web address] PCP - General Rheumatology 04/10/17 10/23/17 Scott Quiroz MD [address] [place] [address] [email or web address] PCP - General Internal Medicine 10/24/17 12/19/22 Unknown, Kandy, PCP - General 08/01/23 08/16/23 Pcp, Unknown PCP - General 09/19/23 07/24/24 Angelia Montoya PA [address] [place] [address] PCP - General Physician Regional Planner 01/31/25 Hernan Arzola MD [email or web address] Internal Medicine 10/02/15 10/20/20 Hoang Mitchell MD [address] [facility] [address]_[place] [address] [email or web address] Consulting Provider Rheumatology 10/02/15 Austin Montoya MD [address] [place] [address] [email or web address] Historical LMR Provider 03/06/17 05/29/21 Hernan Arzola MD [email or web address] Historical LMR Provider 03/06/17 10/20/20 Scott Quiroz MD [address] [place] [address] [email or web address] Historical LMR Provider 03/06/17 10/20/20 [place] [address] [place] [address] Historical LMR Provider 03/06/17 Araon Hardy MD [address] [place] [address] [email or web address] Primary Oncologist Hematology and Oncology 11/30/2208/23 Mee Badillo MBBS [email or web address] Primary Oncologist Medical Oncology 08/25/23 documented as of this encounter Additional Source Comments The information contained in this document represents components of the legal health record. It is not the complete legal health record.[facility]
--- OUTSIDE RECORDS SUMMARY | 2025-04-03 17:56 | XMS_ITS | Encounter Summary ---
Author Organization [facility] Address [address] [place] [address] [place] [address] Phone Care Team Providers Care Campaign Management Senior Manager Name Role Phone Hernan Arzola MD Unavailable [email or web address] Hoang Mitchell MD Unavailable [phone] Austin Montoya MD Unavailable [phone] Hernan Arzola MD Unavailable [email or web address] Scott Quiroz MD Unavailable Gabriel Malik MD Unavailable Scott Quiroz MD Primary Care Provider Aaron Collins MD Unavailable [phone] Unknown, Unknown Primary Care Provider Mee Beyer Unavailable [phone] Pcp, Unknown Primary Care Provider UnavailAngelia Wynn Primary Care Provider [phone] Reason for Referral * Physical Therapy (Routine) - Closed Specialty Diagnoses / Procedures Referred By Lasha foreman Referred To Contact Physical Therapy Diagnoses Encounter for rehabilitation Pelvic Floor Procedures Evaluate & Treat Ketan Head MD Phone: tel: fax: mailto:[email or web address] [address] [address] Phone: tel: Referral ID Status Reason Start Date Expiration Date Visits Re quested Visits Authorized [id number] Closed 05/24/2018 05/21/2020 99 99 Encounter Details Date Type Department Care Team (Latest Contact Info) Description 03/19/2019 Transcribe Orders [facility] [address] [place] [address] Ketan Head MD [address] [place] [address], [address] [address] [email or web address] Encounter for rehabilitation (Primary Dx) Social [...] Diagnoses Orde r Schedule Ambulatory referral to [facility] Physical Therapy Outpatient Referral Routine Encounter for rehabilitation Ordered: 03/19/2019 documented as of this encounter Visit Diagnoses Diagnosis Encounter for rehabilitation- Primary documented in this encounter Additional Health Concerns Infection Onset Date Last Indicated Resolved Time CoV-Risk 03/04/2021 03/04/2021 03/14/2021 1:22 AM EDT documented as of this encounter Care Teams Campaign Management Senior Manager Relationship Specialty Start Date End Date Scott Quiroz MD [address] [place] [address] [email or web address] PCP - General Internal Medicine 10/24/17 12/19/22 Unknown, Kandy, PCP - General 08/01/23 08/16/23 Pcp, Unknown PCP - General 09/19/23 07/24/24 Angelia Montoya PA [address] [place] [address] PCP - General Physician Whip Operator 01/31/25 Hernan Arzola MD [email or web address] Internal Medicine 10/02/15 10/20/20 Hoang Mitchell MD [address] [place] [address] [address]_[place] [address] [email or web address] Consulting Provider Rheumatology 10/02/15 Austin Montoya MD [address] [place] [address] [email or web address] Historical LMR Provider 03/06/17 05/29/21 Hernan Arzola MD [email or web address] Historical LMR Provider 03/06/17 10/20/20 Scott Quiroz MD [address] [place] [address] [email or web address] Historical LMR Provider 03/06/17 10/20/20 Gabriel Malik MD [address] [address] Historical LMR Provider 03/06/17 2 Aaron Collins MD [address] [place] [address] [email or web address] Primary Oncologist Hematology and Oncology 11/30/2208/23 Mee Badillo MBBS [email or web address] Primary Oncologist Medical Oncology 08/25/23 documented as of this encounter Additional Source Comments The information contained in this document represents components of the legal health record. It is not the complete legal health record.[facility]
--- OUTSIDE RECORDS SUMMARY | 2025-04-03 17:56 | XMS_ITS | Encounter Summary ---
Author Organization [facility] Address [address] [place] [address] Phone Care Team Providers Care Hoop Driving Machine Operator Name Role Phone Hoang Mitchell MD Unavailable [phone] Mee Badillo MBBS Unavailable [phone] Pcp, Unknown Primary Care Provider UnavailAngelia Wynn Primary Care Provider [phone] Encounter Details Date Type Department Care Team (Late st Contact Info) Description 10/06/2023 Procedure Pass [facility] Endoscopy Admitting Dept Virtual Department [address] [place] [address] Social History Tobacco Use Types Packs/Day Years [...] documented as of this encounter Care Teams Hoop Driving Machine Operator Relationship Specialty Start Date End Date Pcp, Unknown PCP - General 09/19/23 07/24/24 Angelia Montoya PA [address] [place] [address] PCP - General Physician Machine Iii Coremaker 01/31/25 Hoang Mitchell MD [address] [place] [address] 501_[place] [address] [email or web address] Consulting Provider Rheumatology 10/02/15 Mee Badillo MBBS [address] [place] [address] [address]_[place] [address] [email or web address] Primary Oncologist Medical Oncology 08/25/23 documented as of this encounter Additional Source Comments The information contained in this document represents components of the legal health record. It is not the complete legal health record.[facility]
--- OUTSIDE RECORDS SUMMARY | 2025-04-03 17:56 | XMS_ITS | Encounter Summary ---
Author Organization [employer] Address [address] [facility] 7t [place] [address] Care Team Providers Care Medical Writer Name Role Phone Unavailable Primary Care Provider Unavailabl e Encounter Details Date Type Department Care Team (Late st Contact Info) Description 07/30/2024 [facility] [address] [place] [address] Chaparrita Starr Social History Tobacco Use Types [...]
--- OUTSIDE RECORDS SUMMARY | 2025-04-03 17:56 | XMS_ITS | Encounter Summary ---
Author Organization [facility] Address [address] [place] [address] Phone Care Team Providers Care Fat Purification Worker Name Role Phone Hoang Mitchell MD Unavailable [phone] Aaron Collins MD Unavailable Unknown, Unknown Primary Care Provider Mee Beyer MBBS Unavailable [phone] Pcp, Unknown Primary Care Provider Angelia Alvarez Primary Care Provider [phone] Reason for Referral * MRI/CAT Scan - [...] Expiration Date Visits Re quested Visits Authorized [id number] Closed 01/04/2023 01/04/2024 1 1 * MRI/CAT Scan - Closed Specialty Diagnoses / Procedures Referred By Contpedro t Referred To Contact Radiology Diagnoses Respiratory disorders in diseases classified elsewhere 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 Hoarseness Paralysis of vocal cords and larynx, unilateral Procedures CT Neck Shamar El MD Phone: tel: fax: mailto:[email or web address] Referral ID Status Reason Start Date Expiration Date Visits Re quested Visits Authorized [id number] Closed 01/04/2023 01/04/2024 1 1 Encounter Details Date Type Department Care Team (Latest Contact Info) Description 01/04/2023 Transcribe Orders Virtual Department [address] [place] [address] Shamar El MD [address] [place] [address] [address] [place] [address] [email or web address] Respiratory disorders in diseases classified elsewhere [...] documented as of this encounter Care Teams Fat Purification Worker Relationship Specialty Start Date End Date Unknown, Unknown, PCP - General 08/01/23 08/16/23 Pcp, Unknown PCP - General 09/19/23 07/24/24 Angelia Montoya PA [address] [place] [address] PCP - General Physician Melter Helper 01/31/25 Hoang Mitchell MD [address] [place] [address] [address]_[place] [address] [email or web address] Consulting Provider Rheumatology 10/02/15 Aaron Collins MD [address] [place] [address] [email or web address] Primary Oncologist Hematology and Oncology 11/30/2208/23 Mee Badillo MBBS [email or web address] Primary Oncologist Medical Oncology 08/25/23 documented as of this encounter Additional Source Comments The information contained in this document represents components of the legal health record. It is not the complete legal health record.[facility]
--- OUTSIDE RECORDS SUMMARY | 2025-04-03 17:56 | XMS_ITS | Encounter Summary ---
Author Organization [facility] Address [address] [place] [address] Phone Care Team Providers Care Sports Administrator Name Role Phone Hoang Mitchell MD Unavailable [phone] Mee Badillo MBBS Unavailable [phone] Pcp, Unknown Primary Care Provider UnavailAngelia Wynn Primary Care Provider [phone] Encounter Details Date Type Department Care Team (Late st Contact Info) Description 02/29/2024 Procedure Pass [facility] Periop [address] [place] [address] Social History Tobacco Use Types Packs/Day Years [...] as of this encounter Care Teams Sports Administrator Relationship Specialty Start Date End Date Pcp, Unknown PCP - General 09/19/23 07/24/24 Angelia Montoya PA [address] [place] [address] PCP - General Physician Group Chief Operator 01/31/25 Hoang Mitchell MD [address] [place] [address]_[place] [address] [email or web address] Consulting Provider Rheumatology 10/02/15 Mee Badillo MBBS [address] [place] [address]_[place] [address] [email or web address] Primary Oncologist Medical Oncology 08/25/23 documented as of this encounter Additional Source Comments The information contained in this document represents components of the legal health record. It is not the complete legal health record.[facility]
--- OUTSIDE RECORDS SUMMARY | 2025-04-03 17:56 | XMS_ITS | Encounter Summary ---
Author Organization [facility] Address [address] [place] [address] Phone Care Team Providers Care Highway Engineer Name Role Phone Hernan Arzola MD Unavailable [email or web address] Hoang Mitchell MD Unavailable [phone] Austin Montoya MD Unavailable [phone] Hernan Arzola MD Unavailable [email or web address] Scott Quiroz MD Unavailable Gabriel Malik MD Unavailable Scott Quiroz MD Primary Care Provider Aaron Collins MD Unavailable [phone] Unknown, Unknown Primary Care Provider Mee Beyer Unavailable [phone] Pcp, Unknown Primary Care Provider UnavailAngelia Wynn Primary Care Provider Encounter Details Date Type Department Care Team (Late st Contact Info) Description 02/13/2019 Ancillary Orders Virtual Department [address] [place] [address] Scott Quiroz MD [address] [address] [email or web address] Frequent urination Social History Tobacco [...] mass. POS - [id number] Scott Quiroz MD [facility] US RENAL Final Result documented in this encounter Visit Diagnoses Diagnosis Frequent urination Urinary frequency Frequent urination Urinary frequency documented in this encounter Additional Health Concerns Infection Onset Date Last Indicated Resolved Time CoV-Risk 03/04/2021 03/04/2021 03/14/2021 1:22 AM EDT documented as of this encounter Care Teams Highway Engineer Relationship Specialty Start Date End Date Scott Quiroz MD [address] [place] [address] [email or web address] PCP - General Internal Medicine 10/24/17 12/19/22 Unknown, Kandy, PCP - General 08/01/23 08/16/23 Pcp, Unknown PCP - General 09/19/23 07/24/24 Angelia Montoya PA [address] [place] [address] PCP - General Physician Internet Salesperson 01/31/25 Hernan Arzola MD [email or web address] Internal Medicine 10/02/15 10/20/20 Hoang Mitchell MD [address] [place] [address] 501_[place] [address] [email or web address] Consulting Provider Rheumatology 10/02/15 Austin Montoya MD [address] [place] [address] [email or web address] Historical LMR Provider 03/06/17 05/29/21 Hernan Arzola MD [email or web address] Historical LMR Provider 03/06/17 10/20/20 Scott Quiroz MD [address] [place] [address] [email or web address] Historical LMR Provider 03/06/17 10/20/20 Gabriel Malik MD [address] [address] Historical LMR Provider 03/06/17 Aaron Hardy MD [address] [address] [email or web address] Primary Oncologist Hematology and Oncology 11/30/2208/23 Mee Badillo MBBS [email or web address] Primary Oncologist Medical Oncology 08/25/23 documented as of this encounter Additional Source Comments The information contained in this document represents components of the legal health record. It is not the complete legal health record.[facility]
--- OUTSIDE RECORDS SUMMARY | 2025-04-03 17:56 | XMS_ITS | Encounter Summary ---
Author Organization [facility] Address [address] [place] [address] Phone Care Team Providers Care Medical Insurance Claims Specialist Name Role Phone Hoang Mitchell MD Unavailable [phone] Aaron Collins MD Unavailable [phone] Unknown, Unknown Primary Care Provider Mee Beyer MBBS Unavailable [phone] Pcp, Unknown Primary Care Provider UnavailAngelia Wynn Primary Care Provider [phone] Encounter Details Date Type Department Care Team (Latest Contact Info) Description 05/02/2023 Transcribe Orders [facility] [address] [place] [address] Meme Gordillo MD [address] [facility], [address] [place] [address] [email or web address] MGUS (monoclonal gammopathy of unknown [...] documented as of this encounter Care Teams Medical Insurance Claims Specialist Relationship Specialty Start Date End Date Unknown, Unknown, MD PCP - General 08/01/23 08/16/23 Pcp, Unknown PCP - General 09/19/23 07/24/24 Angelia Montoya PA [address] [place] [address] PCP - General Physician Wood Filler 01/31/25 Hoang Mitchell MD [address] [place] [address] [address] [address] [email or web address] Consulting Provider Rheumatology 10/02/15 Aaron oCllins MD [address] [address] Primary Oncologist Hematology and Oncology 11/30/2208/23 Mee Badillo MBBS [email or web address] Primary Oncologist Medical Oncology 08/25/23 documented as of this encounter Additional Source Comments The information contained in this document represents components of the legal health record. It is not the complete legal health record.[facility]
--- OUTSIDE RECORDS SUMMARY | 2025-04-03 17:56 | XMS_ITS | Encounter Summary ---
Author Organization [facility] Address [address] [facility] [address] [place] [address] Phone Care Team Providers Care Drum Tender Name Role Phone Hernan Arzola MD Unavailable [email or web address] Hoang Mitchell MD Unavailable [phone] Austin Montoya MD Unavailable [phone] Hernan Arzola MD Unavailable [email or web address] Scott Quiroz MD Unavailable Gabriel Malik MD Unavailable Scott Quiroz MD Primary Care Provider Aaron Collins MD Unavailable Unknown, Unknown Primary Care Provider Mee Beyer Unavailable [phone] Pcp, Unknown Primary Care Provider UnavailAngelia Wynn Primary Care Provider Encounter Details Date Type Department Care Team (Late st Contact Info) Description 04/24/2020 Transcribe Orders [facility] [address] [place] [id number] Unknown, Unknown, Social History Tobacco Use Types [...] documented as of this encounter Care Teams Drum Tender Relationship Specialty Start Date End Date Scott Quiroz MD [address] [place] [address] [email or web address] PCP - General Internal Medicine 10/24/17 12/19/22 Unknown, Unknown, MD PCP - General 08/01/23 08/16/23 Pcp, Unknown PCP - General 09/19/23 07/24/24 Angelia Montoya PA [address] [place] [address] PCP - General Physician Newspaper Correspondent 01/31/25 Hernan Arzola MD [email or web address] Internal Medicine 10/02/15 10/20/20 Hoang Mitchell MD [address] [place] [address] 501_[place] [address] [email or web address] Consulting Provider Rheumatology 10/02/15 Austin Montoya MD [address] [place] [address] [email or web address] Historical LMR Provider 03/06/17 05/29/21 Hernan Arzola MD [email or web address] Historical LMR Provider 03/06/17 10/20/20 Scott Quiroz MD [address] [place] [address] [email or web address] Historical LMR Provider 03/06/17 10/20/20 [place] [address] [place] [address] Historical LMR Provider 03/06/17 Aaron Hardy MD [address] [address] [email or web address] Primary Oncologist Hematology and Oncology 11/30/2208/23 Mee Badillo MBBS [email or web address] Primary Oncologist Medical Oncology 08/25/23 documented as of this encounter Additional Source Comments The information contained in this document represents components of the legal health record. It is not the complete legal health record.[facility]
--- OUTSIDE RECORDS SUMMARY | 2025-04-03 17:56 | XMS_ITS | Clinical Summary ---
Author Organization [facility] Address [address] [place] [address] Care Team Providers Care Tag And Label Cutter Name Role Phone Scott Quiroz Primary Care Provider [phone] Allergies Active Allergy Reactions Criticality Noted Date [...] Documents on File Type Date Recorded Patient Waste Water Plant Operator Expl anation Health Care Proxy 09/25/2024 10:19 PM Check list * Full Code (Latest Code Status on File) Date Activated Date Inactivated Comments 07/18/2024 7:29 PM 09/25/2024 4:27 PM Healthcare Agents on File Name Relationship Healthcare Agent [facility] p Communication Jony S Friend Health Care Agent Care Teams Tag And Label Cutter Relationship Specialty Start Date End Date Scott Quiroz [address] [place] [address] PCP - General Internal Medicine 08/20/24
--- OUTSIDE RECORDS SUMMARY | 2025-04-03 17:56 | XMS_ITS | Encounter Summary ---
Author Organization [facility] Address [address] [place] [address] [place] [address] Phone Care Team Providers Care Livestock Dealer Name Role Phone Scott Quiroz MD Primary Care Provider [phone] Hernan Arzola MD Unavailable [email or web address] Hoang Mitchell MD Unavailable [phone] Austin Montoya MD Unavailable [phone] Hernan Arzola MD Unavailable [email or web address] Scott Quiroz MD Unavailable [phone] Gabriel Malik MD Unavailable [phone] Hernan Arzola MD Primary Care Provider [email or web address] Scott Quiroz MD Primary Care Provider [phone] Aaron Collins MD Unavailable [phone] Unknown, Unknown Primary Care Provider Mee Beyer Unavailable [phone] Pcp, Unknown Primary Care Provider UnavailAngelia Wynn Primary Care Provider [phone] Encounter Details Date Type Department Care Team (Late st Contact Info) Description 09/30/2016 Procedure Pass [facility] PERIOPERATIVE DEPT [address] [place] [address] Social History Tobacco Use Types Packs/Day [...] documented as of this encounter Care Teams Livestock Dealer Relationship Specialty Start Date End Date Scott Quiroz MD [address] [address] [email or web address] PCP - General 11/19/13 04/09/17 Hernan Arzola MD [email or web address] PCP - General Rheumatology 04/10/17 10/23/17 Scott Quiroz MD [address] [address] [email or web address] PCP - General Internal Medicine 10/24/17 12/19/22 Unknown, Kandy, PCP - General 08/01/23 08/16/23 Pcp, Unknown PCP - General 09/19/23 07/24/24 Angelia Montoya PA [address] [place] [address] PCP - General Physician Director Of Research And Development 01/31/25 Hernan Arzola MD [email or web address] Internal Medicine 10/02/15 10/20/20 Hoang Mitchell MD [address] [facility] 501_[place] [address] [email or web address] Consulting Provider Rheumatology 10/02/15 Austin Montoya MD [address] [place] [address] [email or web address] Historical LMR Provider 03/06/17 05/29/21 Hernan Arzola MD [email or web address] Historical LMR Provider 03/06/17 10/20/20 Scott Quiroz MD [address] [place] [address] [email or web address] LMR Provider 03/06/17 10/20/20 [place] [address] [place] [address] Historical LMR Provider 03/06/17 Aaron Hardy MD [address] [place] [address] [email or web address] Primary Oncologist Hematology and Oncology 11/30/2208/23 Mee Badillo MBBS [email or web address] Primary Oncologist Medical Oncology 08/25/23 documented as of this encounter Additional Source Comments The information contained in this document represents components of the legal health record. It is not the complete legal health record.[facility]
--- OUTSIDE RECORDS SUMMARY | 2025-04-03 17:56 | XMS_ITS | Clinical Summary ---
Author Organization [facility] Address [address] [place] [address] Phone Care Team Providers Care Senior Quality Methods Specialist Name Role Phone Hoang Mitchell MD Unavailable [phone] Mee Badillo MBBS Unavailable [phone] Angelia Montoya Primary Care Provider [phone] Allergies Active Allergy Reactions Criticality Noted Date [...] at this time-he is followed closely by storage wharfage clerk oncologist every 6 months. Assessment & Plan (01/16/2024 11:14 PM EDT): IMPRESSION: This is a 73-year-old man with the following diagnoses. 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 Mitchell on it. Assessment & [...] B cells. He will contact her consulting beef ribber in [place] to get his feeling on further delaying [...] reagent. Its performance characteristics were determined by [facility] in a manner consistent with CLIA [...] we will measure immunoglobulin levels along with FL-3 CBC CRP and chemistry profile. No evidence [...] Rituxan infusion. Reviewed rheumatology notes from the [facility]. Reviewed lab work just prior [...] Range Status Specimen Source 03/09/2020 NASOPHARYNGEAL SWAB (CREW DISPATCHER) Final COVID-19 Comment 03/09/202020200312 Final COVID Testing Status 03/09/2020 Sent to [facility] Final Symptomatic? 03/09/2020 NO Final [...] total of 28 minutes were spent in [id number] conversation with the patient coordinating my care with that of the referring beef ribber in [place], IV infusion therapy and his primary care [...] developed and its performance characteristics determined by [facility] in a manner consistent with CLIA [...] will speak to the thoracic specialist in [place] when he feels it is necessary to [...] 50% of this 30-minute visit was spent [id number] conversation with the patient going over the [...] The plan will be to consult the work study student at [facility] who did the last radial dilatation [...] 4 weeks and he will see his beef ribber in [place] in 6 weeks. I reviewed lab work [...] had a dilatation procedure done at [facility]. This was done with a rigid [...] this 28 minute visit was spent in qqkk-[id number] conversation with the patient going over the [...] appointment within 2 weeks to see the beef ribber in [place]. My point of view the patient is [...] strongly advise a repeat visit to the underground supervisor for testing. 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 08/20/19 22 Overview (07/12/2014): Stenosis of trachea Encounters Date Type Department Care Team Description 01/31/2025 10:29 AM EDT - 02/01/2025 11:49 PM EDT Emergency [facility] [address] [place] [address] Mildred Moon MD, PhD Mervat, MD Noel Monk Alberto Juan Ignacio, MD Steinberg, Philip Mckeon MD Discharge Disposition: Hospice/Medical Facility 01/16/2025 Orders Only [facility] [address] [place] [id number] Homehealth, Interface ProviderMD 01/13/2025 7:06 AM EDT - 01/13/2025 11:59 PM EDT Hospital Encounter [facility] [address] [place] [address] [place] [address] Chau Reece MD Discharge Disposition: Home or Self Care 01/13/2025 Transcribe Orders [facility] Specimen Processing [address] [place] [address] Chau Reece MD Anxiety (Primary Dx) 01/06/2025 8:05 AM EDT - 01/06/2025 11:59 PM EDT Hospital Encounter [facility] [address] [place] [address] Doreen Garcia NP Discharge Disposition: Home or Self Care 01/06/2025 Transcribe Orders [facility] Specimen Processing [address] [place] [address] Doreen Garcia NP Illness (Primary Dx) from [...] patient's age to complete this topic IPV VACCINES Aged Out No longer eligi ble based on patient's age to complete this topic MENINGOCOCCAL VACCINES (ACWY) Aged Out No longer eligible based on patient's age to complete this topic MENINGOCOCCAL VACCINES (B) Aged Out N o longer eligible based on patient's age to complete this topic Medical Devices Implanted Type Area Charter Boat Operator Device Identifier Shelf Expiration Date Model / Serial / Lot Syringe Carboxymethylcellulose 1.0 Cc Augment Vocal Fold Radiesse Voice Prolaryn Gel Sodium - [id number] Implanted:Qty: 1 on 05/19/2023 by Jhon Gutiérrez MD at [facility] N/A: Vocal Cord Food[employer] 12/25/2024 [id number] / / [id number] Procedures Procedure Name Priority Date/Time Associated [...] screen, urine (01/31/2025 11:26 AM EDT) Pathologist [facility] URINE CANNABINOIDS NONE DETECTED NONE DETECTED [facility] Comment:Cutoff: 50 ng/mL URINE COCAINE METAB NONE DETECTED NONE DETECTED [facility] Comment:Cutoff: 300 ng/mL URINE AMPHETAMINES NONE DETECTED NONE DETECTED [facility] Comment:Cutoff: 1000 ng/mL URINE METHADONE NONE DETECTED NONE DETECTED [facility] Comment:Cutoff: 300 ng/mL URINE OPIATES NONE DETECTED NONE DETECTED [facility] Comment:Cutoff: 300 ng/mL URINE PHENCYCLIDINE NONE DETECTED NONE DETECTED [facility] Comment:Cutoff: 25 ng/mL URINE OXYCODONE NONE DETECTED NONE DETECTED [facility] Comment:Cutoff: 300 ng/mL URINE BARBITURATES NONE DETECTED NONE DETECTED [facility] Comment:Cutoff: 200 ng/mL URINE BENZODIAZEPINE Positive(A) NONE DETECTED [facility] Comment:Cutoff: 200 ng/mL URINE BUPRENORPHINE NONE DETECTED NONE DETECTED [facility] Comment:Cutoff: 5 ng/mL Fentanyl, urine NONE DETECTED NONE DETECTED [facility] Comment: Cutoff: 5 ng/mL INTERPRETATION FOR TOXICOLOGY PANEL: These results are unconfirmed and should be used for Medical Treatment purposes only. Urine (Urine) 01/31/2025 11: 26 AM EDT 01/31/2025 1:19 PM EDT Kolton Lion PA-C LAB URINE ORDERABLES Final Res ult Performing Organization Address City/[facility]/ZIP Co de Phone Number [address] [address] * Ethanol, blood (01/31/2025 10:41 AM EDT) ETHANOL <10 <10 mg/dL [facility] Blood 01/31/2025 10:4 1 AM EDT 01/31/2025 10:46 AM EDT Kolton Lion PA-C LAB BLOOD BKR ORDERABLES Final Result Performing Organization Address [facility] Co de Phone Number [address] [address] * TSH with reflex (01/31/2025 10:41 AM EDT) TSH 1.75 0.27 - 4.20 uIU/mL [facility] 01/31/2025 10:4 1 AM EDT 01/31/2025 10:46 AM EDT Kolton Lion PA-C LAB BLOOD BKR ORDERABLES Final Result Performing Organization Address [facility] Co de Phone Number [address] [address] * (ABNORMAL) LFTs (hepatic panel) (01/31/2025 10:41 AM EDT) ALKALINE PHOSPHATASE 112 39 - 117 U/L [facility] TOTAL BILIRUBIN <0.2 0.0 - 1.2 mg/dL [facility] DIRECT BILIRUBIN <0.1 0.0 - 0.2 mg/dL [facility] Bilirubin (Indirect) NOT CALCULATED 0 - 1.5 mg/dL [facility] AST 18 0 - 37 U/L [facility] ALT 15 0 - 40 U/L [facility] TOTAL PROTEIN 6.3(L) 6.5 - 8.0 g/dL [facility] ALBUMIN 3.6(L) 3.9 - 4.8 g/dL [facility] GLOBULIN 2.7 1 - 4.8 g/dL [facility] A/G Ratio 1.33 1.00 - 4.80 RATIO [facility] Blood 01/31/2025 10:4 1 AM EDT 01/31/2025 10:46 AM EDT Kolton Lion PA-C LAB BLOOD BKR ORDERABLES Final Result [address] [address] * (ABNORMAL) CBC and differential (01/31/2025 10:41 AM EDT) Only the most recent of3 resultswithin the time period is included. WBC 8.95 4.00 - 11.00 K/uL [facility] RBC 3.80(L) 4.50 - 5.90 M/uL [facility] HGB 11.1(L) 13.5 - 17.5 g/dL [facility] HCT 34.3(L) 41.0 - 53.0 % [facility] PLT 275 150 - 450 K/uL [facility] MCV 90.3 80.0 - 100.0 fL [facility] MCH 29.2 27.0 - 31.0 pg [facility] MCHC 32.4 32.0 - 36.0 g/dL [facility] RDW 16.5(H) 11.5 - 14.5 % [facility] MPV 10.4 8.4 - 12.0 fL [facility] NRBC 0.00 0.00 /100 WBCs [facility] ABSOLUTE NRBC 0.00 0.00 K/uL [facility] DIFF METHOD Auto [facility] NEUTS 71.7 48.0 - 76.0 % [facility] LYMPHS 12.4(L) 18.0 - 41.0 % [facility] MONOS 13.7(H) 4.0 - 11.0 % [facility] EOS 1.1 0.0 - 5.0 % [facility] BASOS 0.4 0.0 - 1.5 % [facility] Granulocytes, immature (%) 0.7 0.0 - 0.9 % [facility] ABSOLUTE NEUTS 6.41 1.92 - 7.60 K/uL [facility] ABSOLUTE LYMPHS 1.11 0.72 - 4.10 K/uL [facility] ABSOLUTE MONOS 1.23(H) 0.16 - 1.10 K/uL [facility] ABSOLUTE EOS 0.10 0.00 - 0.50 K/uL [facility] ABSOLUTE BASOS 0.04 0.00 - 0.15 K/uL [facility] Granulocytes, immature 0.06 0.00 - 0.09 K/uL [facility] Blood 01/31/2025 10:4 1 AM EDT 01/31/2025 10:46 AM EDT Kolton Lion PA-C LAB BLOOD BKR ORDERABLES Final Result [address] [address] * (ABNORMAL) Troponin (01/31/2025 10:41 AM EDT) Troponin-T, HS Gen5 17(H) 0 - 14 ng/L [facility] Blood 01/31/2025 10:4 1 AM EDT 01/31/2025 10:46 AM EDT Kolton Lion PA-C LAB BLOOD BKR ORDERABLES Final Result [address] [address] * Magnesium (01/31/2025 10:41 AM EDT) MAGNESIUM 2.3 1.6 - 2.6 mg/dL [facility] 01/31/2025 10:4 1 AM EDT 01/31/2025 10:46 AM EDT Kolton Lion PA-C LAB BLOOD BKR ORDERABLES Final Result Performing Organization Address City/[facility] Co de Phone Number [address] [address] * (ABNORMAL) Basic metabolic panel (01/31/2025 10:41 AM EDT) Only the most recent of3 resultswithin the time period is included. SODIUM 141 133 - 146 mmol/L [facility] CHLORIDE 109(H) 96 - 108 mmol/L [facility] POTASSIUM 4.0 3.3 - 5.1 mmol/L [facility] CO2 20(L) 21 - 35 mmol/L [facility] BUN 14 6 - 19 mg/dL [facility] CREATININE 0.70 0.5 - 1.5 mg/dL [facility] GLUCOSE 96 70 - 99 mg/dL [facility] CALCIUM 8.9 8.4 - 10.3 mg/dL [facility] EGFR 96 >59 mL/min/1.7 3m2 [facility] Comment:Estimated glomerular filtration rate calculated using the CKD-EPI refit equation. ANION GAP 16 10 - 20 mmol/L [facility] Blood 01/31/2025 10:4 1 AM EDT 01/31/2025 10:46 AM EDT Kolton Lion PA-C LAB BLOOD BKR ORDERABLES Final Result [address] [address] * ECG 12-LEAD (01/31/2025 10:27 AM EDT) Ventricular Rate EKG/MIN 78 BPM [facility] Atrial Rate 78 BPM [facility] FL Interval 158 ms [facility] QRS Duration 72 ms [facility] QT Interval 404 ms [facility] QTC Interval 460 ms [facility] P [place] 52 degrees [facility] R Wave [place] 23 degrees [facility] T Wave [place] 45 degrees [facility] 01/31/2025 10:2 7 AM EDT 01/31/2025 3:44 PM EDT Narrative [facility] - 01/31/2025 3:45 PM EDT Sinus rhythm with marked sinus arrhythmia Otherwise normal ECG When compared with ECG of 17-Nov-2022 13:13, No significant change was found Confirmed by Jak Jones ([id number]) on 01/31/2025 3:44:59 PM Kolton Lion PA-C ECG ORDERABLES Final Result [facility] * (ABNORMAL) Hemoglobin A1c (01/06/2025 5:40 AM EDT) HEMOGLOBIN A1C 6.1(H) 4.3 - 5.8 % [facility] Blood 01/06/2025 5:40 AM EDT 01/06/2025 8:29 AM EDT Doreen Garcia CREW DISPATCHER LAB BLOOD BKR ORDERABLES F inal Result Performing Organization Address [facility]/ZIP Co de Phone Number [address] [address] * (ABNORMAL) Lipid panel (01/06/2025 5:40 AM EDT) HDL 36 mg/dL [facility] Comment: Interpretation <40 mg/dL: Low HDL cholesterol (major risk factor for CHD) Greater than or equal to 60 mg/dL: High HDL cholesterol ( negative risk factor for CHD) HDL - cholesterol is affected by a number of factors, e.g. smoking, excerise, hormones, sex and age. CHOLESTEROL 224 0 - 240 mg/dL [facility] TRIGLYCERIDES 325(H) 30 - 160 mg/dL [facility] LDL 123 50 - 129 mg/dL [facility] Comment: LDL levels in terms of risk for coronary heart disease: <100 mg/dL: Optimal 100-129 mg/dL: Near or above optimal 130-159 mg/dL: Borderline high 160-189 mg/dL: High >190 mg/dL: Very High CARDIAC RISK RATIO 6.2(H) 3.4 - 5.0 C [facility] Blood 01/06/2025 5:40 AM EDT 01/06/2025 8:29 AM EDT Doreen Cassidybetsy Garcia CREW DISPATCHER LAB BLOOD BKR ORDERABLES F inal Result [facility] [address] [place] [address] * ENDOSCOPY, COLON (10/06/2023 12:29 PM EDT) Narrative Transcriptions Orlando Grace MD - 10/06/2023 12:29 PM EDT [facility] Patient Name: Lindsey Smith Attending MD:: ORLANDO GRACE MD, Procedure Date: 10/06/2023 12:29 PM Date of : 1950 Age: 73 Admit Type: Outpatient Gender: Male Room: [place] [address] Referring MD: Na Faria Exam Type: Colonoscopy [...] 12:29 PM Procedure Code(s): --- Professional --- 40747, Colonoscopy, flexible; diagnostic, including collection of specimen(s) by brushing or washing, when performed (separateprocedure) --- Technical --- 82721, Colonoscopy, flexible; diagnostic, including collection of specimen(s) by brushing or washing, when performed (separateprocedure) Diagnosis Code(s): --- Professional --- K64.8, Other hemorrhoids R19.5, Other fecal abnormalities --- Technical --- K64.8, Other hemorrhoids R19.5, Other fecal abnormalities CPT copyright 2021 [employer]. All rights reserved. The codes documented in this report are preliminary and upon chemical production technician reviewmay be revised to meet current compliance requirements. Procedure Date: 10/06/2023 12:29:49 PM [address] [place] [address] us Na Faria SUPERVISOR POWDERED SUGAR GI PROCEDURE ORDERABLES Fin al Result * (ABNORMAL) Fecal immunochemical test x1 (FIT) (01/16/2023 1:00 PM EDT) Immuno Fecal Occult Positive(A ) Negative [facility] Stool (Stool) 01/16/2023 1:0 0 PM EDT 01/16/2023 2:03 PM EDT us Aaron Collins MD LAB BODY FLUIDS AND ST OOL ORDERABLES Final Result [facility] [address] [place] [address] from Last 3 Months or Most Recently Relevant to Health Maintenance [place] [id number] MEDICARE PART A & B MEDICARE PART A & B MEDICARE PART A & B MEDICARE PART A & B Member Subscriber Plan / Payer (Ef fective 2010-Present) Name:Lindsey Smith Member ID:[id number] Relation to Subscriber:Self Name:Luis Lindsey Subscriber ID:[id number] Payer ID:[id number] Group ID:Not on file Type:Medicare Address: [facility] [address] [place] [address] MEDICARE PART A & B Member Subscriber Plan / Payer ( fective 2010-Present) Name:Lindsey Smith Member ID:[id number] Relation to Subscriber:Self Name:Lindsey Smith Subscriber ID:[id number] Payer ID:[id number] Group ID:Not on file Type:Medicare Address: [facility] [address] [place] [address] MEDICARE PART A & B Member Subscriber Plan / Payer ( fective 2010-Present) Name:Lindsey Smith Member ID:[id number] Relation to Subscriber:Self Name:Luis Lindsey Subscriber ID:[id number] Payer ID:[id number] Group ID:Not on file Type:Medicare Address: [facility] [address] [place] [address] MEDICARE PART A & B Member Subscriber Plan / Payer (Ef fective 2010-Present) Name:Lindsey Smith Member ID:[id number] Relation to Subscriber:Self Name:Lindsey Smith Subscriber ID:[id number] Payer ID:[id number] Group ID:Not on file Type:Medicare Address: [facility] [address] MEDICARE PART A & B Member Subscriber Plan / Payer ( fective 2010-Present) Name:Lindsey Smith Member ID:[id number] Relation to Subscriber:Self Name:Lindsey Smith Subscriber ID:[id number] Payer ID:[id number] Group ID:Not on file Type:Medicare Address: [facility] 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 Healthcare Proxy 12/18/2015 3:47 PM [...] 12:37 PM 12/11/2015 2:27 PM Care Teams Senior Quality Methods Specialist Relationship Specialty Start Date End Date Angelia Montoya PA [address] [place] [address] PCP - General Physician Last Putter Away 01/31/25 Hoang Mitchell MD [address] [place] [address] [address]_[place] [address] [email or web address] Consulting Provider Rheumatology 10/02/15 Mee Badillo MBBS [address] [place] [address] [address]_[place] [address] [email or web address] Primary Oncologist Medical Oncology 08/25/23 Additional Source Comments The information contained in this document represents components of the legal health record. It is not the complete legal health record.[facility]
--- OUTSIDE RECORDS SUMMARY | 2025-04-03 17:57 | XMS_ITS | Encounter Summary ---
Author Organization [facility] Address [address] [place] [address] [place] [address] Phone Care Team Providers Care Concrete Form Setter Name Role Phone Hernan Arzola MD Unavailable [email or web address] Hoang Mitchell MD Unavailable [phone] Austin Montoya MD Unavailable [phone] Hernan Arzola MD Unavailable [facility] [email or web address] Scott Quiroz MD Unavailable [phone] Gabriel Malik MD Unavailable [phone] Scott Quiroz MD Primary Care Provider [phone] Aaron Collins MD Unavailable Unknown, Unknown Primary Care Provider Mee Beyer Unavailable [phone] Pcp, Unknown Primary Care Provider UnavailAngelia Wynn Primary Care Provider [phone] Reason for Referral * Physical Therapy (Elective) - Closed Specialty Diagnoses / Procedures Referred By Lasha foreman Referred To Contact Physical Therapy Diagnoses Encounter for rehabilitation Left Shoulder Pain Scott Quiroz MD Phone: tel: fax: [email or web address] [address] Phone: tel: Referral ID Status Reason Start Date Expiration Date Visits Re quested Visits Authorized [id number] Closed 11/23/2018 03/01/2019 99 99 Encounter Details Date Type Department Care Team (Latest Contact Info) Description 11/23/2018 Transcribe Orders [facility] [address] [place] [address] Scott Quiroz MD [address] [place] [address] [email or web address] Encounter for rehabilitation (Primary [...] Diagnoses Orde r Schedule Ambulatory referral to [facility] Physical Therapy Outpatient Referral Routine Encounter for rehabilitation Ordered: 11/23/2018 documented as of this encounter Visit Diagnoses Diagnosis Encounter for rehabilitation- Primary documented in this encounter Additional Health Concerns Infection Onset Date Last Indicated Resolved Time CoV-Risk 03/04/2021 03/04/2021 03/14/2021 1:22 AM EDT documented as of this encounter Care Teams Concrete Form Setter Relationship Specialty Start Date End Date Scott Quiroz MD [address] [place] [address] [email or web address] PCP - General Internal Medicine 10/24/17 12/19/22 Unknown, Unknown, MD PCP - General 08/01/23 08/16/23 Pcp, Unknown PCP - General 09/19/23 07/24/24 Angelia Montoya PA [address] [place] [address] PCP - General Physician Executive Pilot 01/31/25 Hernan Arzola MD [email or web address] Internal Medicine 10/02/15 10/20/20 Hoang Mitchell MD [address] [place] [address] [address]_[place] [address] [email or web address] Consulting Provider Rheumatology 10/02/15 Austin Montoya MD [address] [place], [place] [address], [place] [address] [email or web address] Historical LMR Provider 03/06/17 05/29/21 Hernan Arzola MD [email or web address] Historical LMR Provider 03/06/17 10/20/20 Scott Quiroz MD [address] [place] [address] [email or web address] Historical LMR Provider 03/06/17 10/20/20 Gabriel Malik MD [address] [facility] [address] [place] [address] Historical LMR Provider 03/06/17 2 [place] [address] [place] [address] [email or web address] Primary Oncologist Hematology and Oncology 11/30/2208/23 Mee Badillo MBBS [email or web address] Primary Oncologist Medical Oncology 08/25/23 documented as of this encounter Additional Source Comments The information contained in this document represents components of the legal health record. It is not the complete legal health record.[facility]
--- OUTSIDE RECORDS SUMMARY | 2025-04-03 17:57 | XMS_ITS | Encounter Summary ---
Author Organization [facility] Address [address] [place] [address] Phone Care Team Providers Care Shell Core And Molding Supervisor Name Role Phone Hoang Mitchell MD Unavailable [phone] Aaron Collins MD Unavailable Unknown, Unknown Primary Care Provider Mee Beyer MBBS Unavailable [phone] Pcp, Unknown Primary Care Provider UnavailAngelia Wynn Primary Care Provider [phone] Encounter Details Date Type Department Care Team (Late st Contact Info) Description 01/04/2023 Procedure Pass [facility], Ct Scan - [address] [address] Social History Tobacco Use Types Packs/Day Years [...] documented as of this encounter Care Teams Shell Core And Molding Supervisor Relationship Specialty Start Date End Date Unknown, Kandy, PCP - General 08/01/23 08/16/23 Pcp, Unknown PCP - General 09/19/23 07/24/24 Angelia Montoya PA [address] [place] [address] PCP - General Physician Laboratory Asst 01/31/25 Hoang Mitchell MD [address] [place] [address] [address]_[place] [address] [email or web address] Consulting Provider Rheumatology 10/02/15 Aaron Collins MD [address] [address] [email or web address] Primary Oncologist Hematology and Oncology 11/30/2208/23 Mee Badillo MBBS [email or web address] Primary Oncologist Medical Oncology 08/25/23 documented as of this encounter Additional Source Comments The information contained in this document represents components of the legal health record. It is not the complete legal health record.[facility]
--- OUTSIDE RECORDS SUMMARY | 2025-04-03 17:57 | XMS_ITS | Encounter Summary ---
Author Organization [employer] Address [address] [facility] [address] [place] [address] Care Team Providers Care Report Analyst Name Role Phone Unavailable Primary Care Provider [...]
--- OUTSIDE RECORDS SUMMARY | 2025-04-03 17:57 | XMS_ITS | Encounter Summary ---
Author Organization [facility] Address [address] [employer] [facility] [address] [place] [address] Phone Care Team Providers Care Career Developer Name Role Phone Hoang Mitchell MD Unavailable [phone] Scott Quiroz MD Primary Care Provider Aaron Collins MD Unavailable [phone] Unknown, Unknown Primary Care Provider Mee Beyer MBBS Unavailable Pcp, Unknown Primary Care Provider Angelia Alvarez Primary Care Provider [phone] Encounter Details Date Type Department Care Team (Latest Contact Info) Description 09/09/2021 Transcribe Orders Virtual Department [address] [place] [address] Scott Quiroz MD [address] [place] [address] [email or web address] Pre-procedure lab exam (Primary Dx) Social History [...] Order (09/12/2021 2:58 PM EDT) COVID-19 Comment [id number] [facility] COVID Testing Status Specimen received in analyzing lab. Results should be available within 24 to 48 hrs. [facility] Other 09/12/2021 2:58 PM EDT 09/12/2021 5:47 PM EDT Scott Quiroz MD LAB GENERAL ORDERABLES Final Result [facility] [address] [place] [address] [address] documented in this encounter Visit Diagnoses Diagnosis Pre-procedure lab exam- Primary Pre-procedural laboratory examination documented in this encounter Care Teams Career Developer Relationship Specialty Start Date End Date Scott Quiroz MD [address] [place] [address] [email or web address] PCP - General Internal Medicine 10/24/17 12/19/22 Unknown, Unknown, MD PCP - General 08/01/23 08/16/23 Pcp, Unknown PCP - General 09/19/23 07/24/24 Angelia Montoya PA [address] [place] [address] PCP - General Physician Extrusion Technician 01/31/25 Hoang Mitchell MD [address] [place] [address] [address] [address] [email or web address] Consulting Provider Rheumatology 10/02/15 Aaron Collins MD [facility] [address] [address] [email or web address] Primary Oncologist Hematology and Oncology 11/30/2208/23 Mee Badillo MBBS [email or web address] Primary Oncologist Medical Oncology 08/25/23 documented as of this encounter Additional Source Comments The information contained in this document represents components of the legal health record. It is not the complete legal health record.[facility]
--- OUTSIDE RECORDS SUMMARY | 2025-04-03 17:57 | XMS_ITS | Encounter Summary ---
Author Organization Located [facility] Address [facility] [employer] [facility] [address] [place] [address] Phone Care Team Providers Care Registered Nurse Bone Marrow Transplant Name Role Phone Hoang Mitchell MD Unavailable [phone] Austin Montoya MD Unavailable [phone] Gabriel Malik MD Unavailable Scott Quiroz MD Primary Care Provider KarinaAaron avendano MD Unavailable [phone] Unknown, Unknown Primary Care Provider Mee Beyer Unavailable [phone] Pcp, Unknown Primary Care Provider UnavailAngelia Wynn Primary Care Provider [phone] Encounter Details Date Type Department Care Team (Late st Contact Info) Description 03/06/2021 Procedure Pass [facility], Ct Scan - [address] [address] Social History Tobacco Use Types Packs/Day Years [...] 5:31 PM EDT Shakila Balderas RN * [place] Suicide Severity Rating Scale (Screener/Recent Self-Report) Question [...] documented as of this encounter Care Teams Registered Nurse Bone Marrow Transplant Relationship Specialty Start Date End Date Scott Quiroz MD [address] [place] [address] [email or web address] PCP - General Internal Medicine 10/24/17 12/19/22 Unknown, Unknown, MD PCP - General 08/01/23 08/16/23 Pcp, Unknown PCP - General 09/19/23 07/24/24 Angelia Montoya PA [address] [place] [address] PCP - General Physician Installment Account Checker 01/31/25 Hoang Mitchell MD [address] [place] [address] 501_[place] [address] [email or web address] Consulting Provider Rheumatology 10/02/15 Austin Montoya MD [address] [place] [address] [email or web address] Historical LMR Provider 03/06/17 05/29/21 Gabriel Malik MD [address] [address] Historical LMR Provider 03/06/17 2 Aaron Collins MD [facility] [address] [address] [email or web address] Primary Oncologist Hematology and Oncology 11/30/2208/23 Mee Badillo MBBS [email or web address] Primary Oncologist Medical Oncology 08/25/23 documented as of this encounter Additional Source Comments The information contained in this document represents components of the legal health record. It is not the complete legal health record.[facility]
--- OUTSIDE RECORDS SUMMARY | 2025-04-03 17:57 | XMS_ITS | Encounter Summary ---
Author Organization [employer] Address 75 [facility] 7 [place] [address] Care Team Providers Care Knifeman Name Role Phone Unavailable Primary Care Provider [...]
--- OUTSIDE RECORDS SUMMARY | 2025-04-03 17:57 | XMS_ITS | Encounter Summary ---
Author Organization [facility] Address [address] [place] [address] Phone Care Team Providers Care Regulatory Manager Name Role Phone Hoang Mitchell MD Unavailable Aaron Collins MD Unavailable Unknown, Unknown Primary Care Provider Mee Beyer MBBS Unavailable [phone] Pcp, Unknown Primary Care Provider UnavailAngelia Wynn Primary Care Provider [phone] Encounter Details Date Type Department Care Team (Late st Contact Info) Description 01/04/2023 Procedure Pass [facility], Ct Scan - [address] [address] Social History Tobacco Use Types Packs/Day Years [...] documented as of this encounter Care Teams Regulatory Manager Relationship Specialty Start Date End Date Unknown, Kandy, PCP - General 08/01/23 08/16/23 Pcp, Unknown PCP - General 09/19/23 07/24/24 Angelia Montoya PA [address] [place] [address] PCP - General Physician Repossession Agent 01/31/25 Hoang Mitchell MD [address] [place] [address] [address]_[place] [address] [email or web address] Consulting Provider Rheumatology 10/02/15 Aaorn Collins MD [address] [address] [email or web address] Primary Oncologist Hematology and Oncology 11/30/2208/23 Mee Badillo MBBS [email or web address] Primary Oncologist Medical Oncology 08/25/23 documented as of this encounter Additional Source Comments The information contained in this document represents components of the legal health record. It is not the complete legal health record.[facility]
--- OUTSIDE RECORDS SUMMARY | 2025-04-03 17:57 | XMS_ITS | Clinical Summary ---
Author Organization [employer] Address 75 [facility] 7t [place] [address] Care Team Providers Care Cokeman Name Role Phone Unavailable Primary Care Provider [...]
--- OUTSIDE RECORDS SUMMARY | 2025-04-03 17:57 | XMS_ITS | Encounter Summary ---
Author Organization [facility] Address [address] [employer] [facility] [address] [place] [address] Phone Care Team Providers Care Dieing Out Machine Operator Name Role Phone Hernan Arzola MD Unavailable [email or web address] Hoang Mitchell MD Unavailable [phone] Austin Montoya MD Unavailable [phone] Hernan Arzola MD Unavailable [email or web address] Scott Quiroz MD Unavailable Gabriel Malik MD Unavailable Scott Quiroz MD Primary Care Provider [phone] Aaron Collins MD Unavailable Unknown, Unknown Primary Care Provider Mee Beyer Unavailable [phone] Pcp, Unknown Primary Care Provider UnavailAngelia Wynn Primary Care Provider Encounter Details Date Type Department Care Team (Late st Contact Info) Description 07/03/2018 Procedure Pass [facility] PERIOPERATIVE DEPT [address] [place] [id number] Social History Tobacco Use Types Packs/Day Years [...] documented as of this encounter Care Teams Dieing Out Machine Operator Relationship Specialty Start Date End Date Scott Quiroz MD [address] [place] [address] [email or web address] PCP - General Internal Medicine 10/24/17 12/19/22 Unknown, Unknown, MD PCP - General 08/01/23 08/16/23 Pcp, Unknown PCP - General 09/19/23 07/24/24 Angelia Montoya PA [address] [place] [address] PCP - General Physician Recreation Facility Manager 01/31/25 Hernan Arzola MD [email or web address] [email or web address] Internal Medicine 10/02/15 10/20/20 Hoang Mitchell MD [address] [place] [address] 501_[place] [address] [email or web address] Consulting Provider Rheumatology 10/02/15 Austin Montoya MD [address] [place] [address] [email or web address] Historical LMR Provider 03/06/17 05/29/21 Hernan Arzola MD [email or web address] [employer] [email or web address] Historical LMR Provider 03/06/17 10/20/20 Scott Quiroz MD [address] [place] [address] [email or web address] Historical LMR Provider 03/06/17 10/20/20 [place] [address] [place] [address] Historical LMR Provider 03/06/17 Aaorn Hardy MD [address] [place] [address] [email or web address] Primary Oncologist Hematology and Oncology 11/30/2208/23 Mee Badillo MBBS [email or web address] Primary Oncologist Medical Oncology 08/25/23 documented as of this encounter Additional Source Comments The information contained in this document represents components of the legal health record. It is not the complete legal health record.[facility]
--- OUTSIDE RECORDS SUMMARY | 2025-04-03 17:57 | XMS_ITS | Encounter Summary ---
Author Organization [employer] Address 75 [facility] 7 [place] [address] Care Team Providers Care Geothermal Sheet Metal Worker Name Role Phone Unavailable Primary Care Provider [...]
== END 2025-04-03 14:33 | disposition home or self-care (01) ==
LOC: HO.HOP 14:32
PROVIDERS: PCP Physician Assistant Medical; Visit Provider Clinical Nurse Specialist Psychiatric/Mental Health
DX: F33.1 Major depressive disorder, recurrent, moderate (principal); F60.7 Dependent personality disorder; F41.1 Generalized anxiety disorder; F41.0 Panic disorder [episodic paroxysmal anxiety]
CPT/HCPCS: 99214

== ENCOUNTER → 2025-04-03 14:32 | Outpatient (BNVA) | payer MEDICARE, SELFPAY | PROVIDERS: PCP Physician Assistant Medical; Visit Provider Clinical Nurse Specialist Psychiatric/Mental Health | DX: F33.1 Major depressive disorder, recurrent, moderate (principal); F60.7 Dependent personality disorder; F41.1 Generalized anxiety disorder; F41.0 Panic disorder [episodic paroxysmal anxiety] | CPT/HCPCS: 99212 ==

== ENCOUNTER 2025-05-12 17:01 | Outpatient (AMB) | payer MEDICARE, SELFPAY ==
--- OUTSIDE RECORDS SUMMARY | 2015-10-01 23:00 | XMS_ITS | Encounter Summary ---
Author Organization [facility] Address [address] [place] [address] Phone Care Team Providers Care Chemical Production Engineer Name Role Phone Scott Quiroz MD Primary Care Provider [phone] Hernan Arzola MD Unavailable [facility] [email or web address] [email or web address] Hoang Mitchell MD Unavailable [phone] Encounter Details Date Type Department Care Team (Late st Contact Info) Description 10/02/2015 Hospital Encounter [facility] [address] [place] [address] Teddy Alas MD 55 [facility] [address] [place] [address] [email or web address] Social History Tobacco Use Types Packs/Day Years [...] PM EDT documented as of this encounter Plan of Treatment Not on file documented as of this encounter Procedures Procedure Name Priority Date/Time Associated Diagnosis Comments XR HEAD OUTSIDE (NO INTERPRETATION) Routine 10/02/2015 12:00 AM EDT documented in this encounter Results * XR Head Outside (No Interpretation) (10/02/2015 12:00 AM EDT) Narrative [facility] [place] [facility] IMG INTERFACES - 10/06/2015 10:46 AM EDT This study is for PACS storage only and not for interpretation. Procedure Note SYSTEMGENERATED, DOCUMENTATION - 10/06/2015 This study is for PACS storage only and not for interpretation. us Teddy Alas MD IMG OUTSIDE IMAGING W/ OUT INTERPRETATION Final Result [facility] [place] [facility] IMG INTERFACES documented in this encounter Visit Diagnoses Not on filedocumented in this encounter Additional Health Concerns Infection Onset Date Last Indicated Resolved Time CoV-Risk 03/04/2021 03/04/2021 03/14/2021 1:22 AM EDT documented as of this encounter Care Teams Chemical Production Engineer Relationship Specialty Start Date End Date Scott Quiroz MD [address] [place] [id number] [email or web address] PCP - General 11/19/13 04/09/17 Hernan Arzola MD [email or web address] Internal Medicine 10/02/15 10/20/20 Hoang Mitchell MD [address] [place] [address]_[place] [address] [email or web address] Consulting Provider Rheumatology 10/02/15 documented as of this encounter Additional Source Comments The information contained in this document represents components of the legal health record. It is not the complete legal health record.[facility]
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
--- OUTSIDE RECORDS SUMMARY | 2025-05-12 18:56 | XMS_ITS | Encounter Summary ---
Author Organization [facility] Address [address] [place] [address] [place] [address] Phone Care Team Providers Care Die Tripper Name Role Phone Scott Quiroz MD Primary Care Provider [phone] Hernan Arzola MD Unavailable [email or web address] [email or web address] Hoang Mitchell MD Unavailable [phone] Austin Montoya MD Unavailable [phone] Hernan Arzola MD Unavailable [email or web address] Scott Quiroz MD Unavailable [phone] Gabriel Malik MD Unavailable [phone] Hernan Arzola MD Primary Care Provider [email or web address] Scott Quiroz MD Primary Care Provider [phone] Aaron Collins MD Unavailable [phone] Unknown, Unknown Primary Care Provider Mee Beyer Unavailable [phone] Pcp, Unknown Primary Care Provider UnavailAngelia Wynn Primary Care Provider [phone] Encounter Details Date Type Department Care Team (Late st Contact Info) Description 09/30/2016 Procedure Pass [facility] PERIOPERATIVE DEPT [address] [place] [address] Social History Tobacco Use Types Packs/Day [...] as of this encounter Care Teams Die Tripper Relationship Specialty Start Date End Date Scott Quiroz MD [address] [address] [email or web address] PCP - General 11/19/13 04/09/17 Hernan Arzola MD [email or web address] PCP - General Rheumatology 04/10/17 10/23/17 Scott Quiroz MD [address] [address] [email or web address] center[facility] PCP - General Internal Medicine 10/24/17 12/19/22 Unknown, Kandy, PCP - General 08/01/23 08/16/23 Pcp, Unknown PCP - General 09/19/23 07/24/24 Angelia Montoya PA [address] [place] [address] PCP - General Physician Senior Technical Architect 01/31/25 Hernan Arzola MD [email or web address] Internal Medicine 10/02/15 10/20/20 Hoang Mitchell MD [facility] 501_[place] [address] [email or web address] Consulting Provider Rheumatology 10/02/15 Austin Montoya MD [address] [place] [address] [email or web address] Historical LMR Provider 03/06/17 05/29/21 Hernan Arzola MD [email or web address] Historical LMR Provider 03/06/17 10/20/20 Scott Quiroz MD [address] [place] [address] [email or web address] Historical LMR Provider 03/06/17 10/20/20 [place] [address] [place] [address] Historical LMR Provider 03/06/17 Aaron Hardy MD [address] [place] [address] [email or web address] Primary Oncologist Hematology and Oncology 11/30/2208/23 Mee Badillo MBBS [email or web address] Primary Oncologist Medical Oncology 08/25/23 documented as of this encounter Additional Source Comments The information contained in this document represents components of the legal health record. It is not the complete legal health record.[facility]
--- OUTSIDE RECORDS SUMMARY | 2025-05-12 18:56 | XMS_ITS | Encounter Summary ---
Author Organization [employer] Address [address] [facility] 7 [place] [address] Care Team Providers Care Claim Investigator Name Role Phone Unavailable Primary Care Provider [...]
--- OUTSIDE RECORDS SUMMARY | 2025-05-12 18:56 | XMS_ITS | Encounter Summary ---
Author Organization [facility] Address [address] [place] [address] Phone Care Team Providers Care Field Handyman Name Role Phone Hoang Mitchell MD Unavailable [phone] Aaron Collins MD Unavailable [phone] Unknown, Unknown Primary Care Provider Mee Beyer MBBS Unavailable [phone] Pcp, Unknown Primary Care Provider UnavailAngelia Wynn Primary Care Provider [phone] Encounter Details Date Type Department Care Team (Late st Contact Info) Description 05/30/2023 Procedure Pass [facility] Periop [address] [place] [address] Social History Tobacco Use Types Packs/Day Years [...] documented as of this encounter Care Teams Field Handyman Relationship Specialty Start Date End Date Unknown, Unknown, MD PCP - General 08/01/23 08/16/23 Pcp, Unknown PCP - General 09/19/23 07/24/24 Angelia Montoya PA [address] [place] [address] PCP - General Physician Power Plant Engineer 01/31/25 Hoang Mitchell MD [address] [place] [address] [address]_[place] [address] [email or web address] Consulting Provider Rheumatology 10/02/15 Aaron Collins MD [address] [address] [email or web address] Primary Oncologist Hematology and Oncology 11/30/2208/23 Mee Badillo MBBS [email or web address] Primary Oncologist Medical Oncology 08/25/23 documented as of this encounter Additional Source Comments The information contained in this document represents components of the legal health record. It is not the complete legal health record.[facility]
--- OUTSIDE RECORDS SUMMARY | 2025-05-12 18:56 | XMS_ITS | Encounter Summary ---
Author Organization [facility] Address [address] [facility] [address] [place] [address] Phone Care Team Providers Care Head Of Geography Name Role Phone Hoang Mitchell MD Unavailable Scott Quiroz MD Primary Care Provider Aaron Collins MD Unavailable Unknown, Unknown Primary Care Provider Mee BeyerBS Unavailable [phone] Pcp, Unknown Primary Care Provider Angelia Alvarez Primary Care Provider [phone] Encounter Details Date Type Department Care Team (Latest Contact Info) Description 08/24/2022 Transcribe Orders Virtual Department 30 [place] [address] Scott Quiroz MD [address] [place] [address] [email or web address] Cervical spinal stenosis (Primary Dx) Social History [...] region documented in this encounter Care Teams Head Of Geography Relationship Specialty Start Date End Date Scott Quiroz MD [address] [place] [address] [email or web address] PCP - General Internal Medicine 10/24/17 12/19/22 Unknown, Kandy, PCP - General 08/01/23 08/16/23 Pcp, Unknown PCP - General 09/19/23 07/24/24 Angelia Montoya PA [address] [place] [address] PCP - General Physician Wildlife Enforcement Major 01/31/25 Hoang Mitchell MD [address] [place] [address] [address]_[place] [address] [email or web address] Consulting Provider Rheumatology 10/02/15 Aaron Collins MD [address] [address] [email or web address] Primary Oncologist Hematology and Oncology 11/30/2208/23 Mee Badillo MBBS [email or web address] Primary Oncologist Medical Oncology 08/25/23 documented as of this encounter Additional Source Comments The information contained in this document represents components of the legal health record. It is not the complete legal health record.[facility]
--- OUTSIDE RECORDS SUMMARY | 2025-05-12 18:56 | XMS_ITS | Encounter Summary ---
Author Organization [facility] Address [address] [employer] [facility] [address] [place] [address] Phone Care Team Providers Care Electronic Calibration Technician Name Role Phone Hernan Arzola MD Unavailable [email or web address] [email or web address] Hoang Mitchell MD Unavailable [phone] [place] Montoya MD Unavailable [phone] Hernan Arzola MD Unavailable [email or web address] Scott Quiroz MD Unavailable Gabriel Malik MD Unavailable Scott Quiroz MD Primary Care Provider Aaron Collins MD Unavailable Unknown, Unknown Primary Care Provider Mee Beyer Unavailable [phone] Pcp, Unknown Primary Care Provider UnavailAngelia Wynn Primary Care Provider Encounter Details Date Type Department Care Team (Late st Contact Info) Description 04/24/2020 Transcribe Orders Del [facility] [address] [place] [phone] Unknown, Unknown, Social History Tobacco Use Types [...] documented as of this encounter Care Teams Electronic Calibration Technician Relationship Specialty Start Date End Date Scott Quiroz MD [address] [place] [address] [email or web address] [email or web address] PCP - General Internal Medicine 10/24/17 12/19/22 Unknown, Unknown, MD PCP - General 08/01/23 08/16/23 Pcp, Unknown PCP - General 09/19/23 07/24/24 Angelia Montoya PA [address] [place] [address] PCP - General Physician Sander Setter 01/31/25 Hernan Arzola MD [email or web address] Internal Medicine 10/02/15 10/20/20 Hoang Mitchell MD [address] [place] [address] 501_[place] [address] [email or web address] Consulting Provider Rheumatology 10/02/15 [place] Montoya MD [address] [place] [address] [email or web address] [place] Historical LMR Provider 03/06/17 05/29/21 Hernan Arzola MD [email or web address] [place] Historical LMR Provider 03/06/17 10/20/20 Scott Quiroz MD [address] [place] [address] [email or web address] [email or web address] Historical LMR Provider 03/06/17 10/20/20 [place] [address] [place] [address] Historical LMR Provider 03/06/17 Aaron Hardy MD [address] [address] [email or web address] Primary Oncologist Hematology and Oncology 11/30/2208/23 Mee Badillo MBBS [email or web address] Primary Oncologist Medical Oncology 08/25/23 documented as of this encounter Additional Source Comments The information contained in this document represents components of the legal health record. It is not the complete legal health record.[facility]
--- OUTSIDE RECORDS SUMMARY | 2025-05-12 18:56 | XMS_ITS | Encounter Summary ---
Author Organization [facility] Address [address] [place] [address] [place] [address] Phone Care Team Providers Care Auto Wheel Alignment Specialist Name Role Phone Hernan Arzola MD Unavailable [email or web address] Hoang Mitchell MD Unavailable [phone] [place] Montoya MD Unavailable [phone] Hernan Arzola MD Unavailable [email or web address] Scott Quiroz MD Unavailable [phone] Gabriel Malik MD Unavailable Scott uQiroz MD Primary Care Provider [phone] Aaron [place] MD Unavailable Unknown, Unknown Primary Care Provider Mee Beyer Unavailable [phone] Pcp, Unknown Primary Care Provider UnavailAngelia Wynn Primary Care Provider [phone] Reason for Referral * Physical Therapy (Elective) - Closed Specialty Diagnoses / Procedures Referred By Lasha foreman Referred To Contact Physical Therapy Diagnoses Encounter for rehabilitation Left Shoulder Pain Scott Quiroz MD Phone: tel: fax: [email or web address] [address] Phone: tel: Referral ID Status Reason Start Date Expiration Date Visits Re quested Visits Authorized [id number] Closed 11/23/2018 03/01/2019 99 99 Encounter Details Date Type Department Care Team (Latest Contact Info) Description 11/23/2018 Transcribe Orders Del Angel [facility] 4 [place] [address] Scott Quiroz MD [address] [place] [address] [email or web address] Encounter for rehabilitation (Primary Dx) Social History [...] Diagnoses Orde r Schedule Ambulatory referral to [facility] Physical Therapy Outpatient Referral Routine Encounter for rehabilitation Ordered: 11/23/2018 documented as of this encounter Visit Diagnoses Diagnosis Encounter for rehabilitation- Primary documented in this encounter Additional Health Concerns Infection Onset Date Last Indicated Resolved Time CoV-Risk 03/04/2021 03/04/2021 03/14/2021 1:22 AM EDT documented as of this encounter Care Teams Auto Wheel Alignment Specialist Relationship Specialty Start Date End Date Scott Quiroz MD [address] [place] [address] [email or web address] PCP - General Internal Medicine 10/24/17 12/19/22 Unknown, Unknown, MD PCP - General 08/01/23 08/16/23 Pcp, Unknown PCP - General 09/19/23 07/24/24 Angelia Montoya PA [address] [place] [address] PCP - General Physician Parcel Post Carrier 01/31/25 Hernan Arzola MD [email or web address] Internal Medicine 10/02/15 10/20/20 Hoang Mitchell MD [address] [place] [address] [address]_[place] [address] [email or web address] .[email or web address] Consulting Provider Rheumatology 10/02/15 [place] Montoya MD [address] [place], [place] [address], [place] [address] [email or web address] Historical LMR Provider 03/06/17 05/29/21 Hernan Arzola MD [email or web address] Historical LMR Provider 03/06/17 10/20/20 Scott Quiroz MD [address] [place] [address] [email or web address] Historical LMR Provider 03/06/17 10/20/20 Gabriel Malik MD 3500 [facility] [address] [place] [address] Historical LMR Provider 03/06/17 2 [place] [address] [place] [address] [email or web address] Primary Oncologist Hematology and Oncology 11/30/2208/23 Mee Badillo MBBS [email or web address] Primary Oncologist Medical Oncology 08/25/23 documented as of this encounter Additional Source Comments The information contained in this document represents components of the legal health record. It is not the complete legal health record.[facility]
--- OUTSIDE RECORDS SUMMARY | 2025-05-12 18:56 | XMS_ITS | Encounter Summary ---
Author Organization [facility] Address [address] [place] [address] Phone Care Team Providers Care Dock Worker Name Role Phone Hoang Mitchell MD Unavailable [phone] Mee Badillo MBBS Unavailable [phone] Pcp, Unknown Primary Care Provider UnavailAngelia Wynn Primary Care Provider [phone] Encounter Details Date Type Department Care Team (Late st Contact Info) Description 02/29/2024 Procedure Pass [facility] Periop [address] [place] [address] Social History Tobacco Use Types Packs/Day Years [...] documented as of this encounter Care Teams Dock Worker Relationship Specialty Start Date End Date Pcp, Unknown PCP - General 09/19/23 07/24/24 Angelia Montoya PA [address] [place] [address] PCP - General Physician Equine Pharmacology Technician 01/31/25 Hoang Mitchell MD [address] [place] [address]_[place] [address] [email or web address] Consulting Provider Rheumatology 10/02/15 Mee Badillo MBBS [address] [place] [address]_[place] [address] [email or web address] Primary Oncologist Medical Oncology 08/25/23 documented as of this encounter Additional Source Comments The information contained in this document represents components of the legal health record. It is not the complete legal health record.[facility]
--- OUTSIDE RECORDS SUMMARY | 2025-05-12 18:56 | XMS_ITS | Encounter Summary ---
Author Organization [employer] Address [address] [facility] 7t [place] [address] Care Team Providers Care Patient Placement Coordinator Name Role Phone Unavailable Primary Care Provider Unavailabl e Encounter Details Date Type Department Care Team (Late st Contact Info) Description 07/30/2024 [facility] [address] [place] [address] Chaparrita Starr Social History Tobacco Use Types [...]
--- OUTSIDE RECORDS SUMMARY | 2025-05-12 18:56 | XMS_ITS | Encounter Summary ---
Author Organization [facility] Address [address] [facility] [address] [place] [address] Phone Care Team Providers Care Marketing Performance Analyst Name Role Phone Hoang Mitchell MD Unavailable Aaron Collins MD Unavailable Unknown, Unknown Primary Care Provider Mee Beyer MBBS Unavailable [phone] Pcp, Unknown Primary Care Provider UnavailAngelia Wynn Primary Care Provider [phone] Encounter Details Date Type Department Care Team (Latest Contact Info) Description 05/02/2023 Transcribe Orders [facility] Phleb [address] [place] [address] Meme Gordillo MD [address] [facility], [address] [place] [address] [email or web address] MGUS (monoclonal gammopathy of unknown [...] documented as of this encounter Care Teams Marketing Performance Analyst Relationship Specialty Start Date End Date Unknown, Unknown, MD PCP - General 08/01/23 08/16/23 Pcp, Unknown PCP - General 09/19/23 07/24/24 Angelia Montoya PA [address] [place] [address] PCP - General Physician Frame Repairer 01/31/25 Hoang Mitchell MD [address] [place] [address] [address]_[place] [address] [email or web address]. [email or web address] Consulting Provider Rheumatology 10/02/15 Aaron Collins MD [address] [address] Primary Oncologist Hematology and Oncology 11/30/2208/23 Mee Badillo MBBS [email or web address] Primary Oncologist Medical Oncology 08/25/23 documented as of this encounter Additional Source Comments The information contained in this document represents components of the legal health record. It is not the complete legal health record.[facility]
--- OUTSIDE RECORDS SUMMARY | 2025-05-12 18:56 | XMS_ITS | Encounter Summary ---
Author Organization [facility] Address [address] [place] [address] [place] [address] Phone Care Team Providers Care Missile Pad Mechanic Name Role Phone Hernan Arzola MD Unavailable [email or web address] Hoang Mitchell MD Unavailable [phone] [place] Montoya MD Unavailable [phone] Hernan Arzola MD Unavailable [email or web address] [email or web address] Scott Quiroz MD Unavailable Gabriel Malik MD Unavailable [phone] Scott Quiroz MD Primary Care Provider Aaron Collins MD Unavailable Unknown, Unknown Primary Care Provider Mee Beyer Unavailable [phone] Pcp, Unknown Primary Care Provider UnavailAngelia Wynn Primary Care Provider [phone] Reason for Referral * Physical Therapy (Routine) - Closed Specialty Diagnoses / Procedures Referred By Lasha foreman Referred To Contact Physical Therapy Diagnoses Encounter for rehabilitation Pelvic Floor Procedures Evaluate & Treat Ketan Head MD Phone: tel: fax: mailto:[email or web address] [address] [address] Phone: tel: Referral ID Status Reason Start Date Expiration Date Visits Re quested Visits Authorized [id number] Closed 05/24/2018 05/21/2020 99 99 Encounter Details Date Type Department Care Team (Latest Contact Info) Description 03/19/2019 Transcribe Orders Del Angel [facility] [address] [place] [address] Ketan Head MD [address] [place] [address], [address] [address] [email or web address] Encounter for rehabilitation (Primary Dx) Social History [...] Assessment Author No 10/01/2016 8:00 AM EDT lAma Hair MD * Patient is blind or [...] Diagnoses Orde r Schedule Ambulatory referral [facility] Physical Therapy Outpatient Referral Routine Encounter for rehabilitation Ordered: 03/19/2019 documented as of this encounter Visit Diagnoses Diagnosis Encounter for rehabilitation- Primary documented in this encounter Additional Health Concerns Infection Onset Date Last Indicated Resolved Time CoV-Risk 03/04/2021 03/04/2021 03/14/2021 1:22 AM EDT documented as of this encounter Care Teams Missile Pad Mechanic Relationship Specialty Start Date End Date Scott Qurioz MD [address] [place] [address] [email or web address] PCP - General Internal Medicine 10/24/17 12/19/22 Unknown, Kandy, PCP - General 08/01/23 08/16/23 Pcp, Unknown PCP - General 09/19/23 07/24/24 Angelia Montoya PA [address] [place] [address] PCP - General Physician Bass Fisher 01/31/25 Hernan Arzola MD [email or web address] Internal Medicine 10/02/15 10/20/20 Hoang Mitchell MD [address] [place] [address] [address]_[place] [address] [email or web address] Consulting Provider Rheumatology 10/02/15 [place] Montoya MD [address] [place] [address] [email or web address] Historical LMR Provider 03/06/17 05/29/21 Hernan Arzola MD [email or web address] Historical LMR Provider 03/06/17 10/20/20 Scott Quiroz MD [address] [place] [address] [email or web address] Historical LMR Provider 03/06/17 10/20/20 Gabriel Malik MD [address] [address] Historical LMR Provider 03/06/17 2 Aaron [place] MD [address] [place] [address] [email or web address] Primary Oncologist Hematology and Oncology 11/30/2208/23 Mee Badillo MBBS [email or web address] Primary Oncologist Medical Oncology 08/25/23 documented as of this encounter Additional Source Comments The information contained in this document represents components of the legal health record. It is not the complete legal health record.[facility]
--- OUTSIDE RECORDS SUMMARY | 2025-05-12 18:56 | XMS_ITS | Encounter Summary ---
Author Organization [facility] Address [address] [place] [address] Phone Care Team Providers Care Lead Data Architect Name Role Phone Hoang Mitchell MD Unavailable [phone] Mee Badillo MBBS Unavailable [phone] Pcp, Unknown Primary Care Provider UnavailAngelia Wynn Primary Care Provider [phone] Encounter Details Date Type Department Care Team (Late st Contact Info) Description 10/06/2023 Procedure Pass [facility] Endoscopy Admitting Dept Virtual Department 30 [place] [address] Social History Tobacco Use Types Packs/Day Years [...] as of this encounter Care Teams Lead Data Architect Relationship Specialty Start Date End Date Pcp, Unknown PCP - General 09/19/23 07/24/24 Angelia Montoya PA [address] [place] [address] PCP - General Physician Director Of Analytics 01/31/25 Hoang Mitchell MD [address] [place] [address] 501_[place] [address] [email or web address] Consulting Provider Rheumatology 10/02/15 Mee Badillo MBBS [address] [place] [address] [address]_[place] [address] [email or web address] Primary Oncologist Medical Oncology 08/25/23 documented as of this encounter Additional Source Comments The information contained in this document represents components of the legal health record. It is not the complete legal health record.[facility]
--- OUTSIDE RECORDS SUMMARY | 2025-05-12 18:56 | XMS_ITS | Encounter Summary ---
Author Organization [facility] Address [address] [place] [address] [place] [address] Phone Care Team Providers Care Senior Storage Administrator Name Role Phone Hernan Arzola MD Unavailable [email or web address] Hoang Mitchell MD Unavailable [phone] Austin Montoya MD Unavailable [phone] Hernan Arzola MD Unavailable [email or web address] Scott Quiroz MD Unavailable Gabriel Malik MD Unavailable Hernan Arzola MD Primary Care Provider [email or web address] Scott Quiroz MD Primary Care Provider Aaron Collins MD Unavailable Unknown, Unknown Primary Care Provider Mee Beyer Unavailable [phone] Pcp, Unknown Primary Care Provider UnavailAngelia Wynn Primary Care Provider [phone] Encounter Details Date Type Department Care Team (Latest Contact Info) Description 04/12/2017 Transcribe Orders [facility] Phleb Kate [address] [place] [address] Hernan Arzola MD [email or web address] Rosie's granulomatosis (Primary Dx) Social [...] D (TOTAL) 33 30 - 1,000 ng/mL [facility] Blood 04/12/2017 4:41 PM EST 04/12/2017 4:43 PM EST us Hernan Arzola MD LAB BLOOD BKR ORDERABLES F inal Result Performing Organization Address City/[facility]/ZIP Co de Phone Number [address] [address] * C-Reactive Protein (04/12/2017 4:41 PM EST) C REACTIVE PROTEIN 0.2 0 - 0.5 mg/L [facility] Blood 04/12/2017 4:41 PM EST 04/12/2017 4:43 PM EST us Hernan Arzola MD LAB BLOOD BKR ORDERABLES F inal Result Performing Organization Address [facility] Co de Phone Number [address] [address] * Comprehensive metabolic panel (04/12/2017 4:41 PM EST) SODIUM 145 133 - 146 mmol/L [facility] POTASSIUM 4.4 3.3 - 5.1 mmol/L [facility] CHLORIDE 107 96 - 108 mmol/L [facility] CO2 25 21 - 35 mmol/L [facility] BUN 15 6 - 19 mg/dL [facility] CREATININE 0.70 0.5 - 1.5 mg/dL [facility] GLUCOSE 86 70 - 99 mg/dL [facility] ALBUMIN 4.1 3.9 - 4.8 g/dL [facility] TOTAL PROTEIN 6.6 6.5 - 8.0 g/dL [facility] CALCIUM 9.1 8.4 - 10.3 mg/dL [facility] ALKALINE PHOSPHATASE 79 39 - 117 U/L [facility] TOTAL BILIRUBIN 0.2 0 - 1.2 mg/dL [facility] AST 19 0 - 37 U/L [facility] ALT 12 0 - 40 U/L [facility] GLOBULIN 2.5 1 - 4.8 g/dL [facility] EGFR >60 >60 mL/min/1.7 3m2 [facility] Comment:Abnormal if <60. If patient is -Kazakh, multiply the result by 1.21. ANION GAP 17 10 - 20 mmol/L [facility] Blood 04/12/2017 4:41 PM EST 04/12/2017 4:43 PM EST us Hernan Arzola MD LAB BLOOD BKR ORDERABLES F inal Result [facility] [address] [place] [address] * (ABNORMAL) CBC and differential (04/12/2017 4:41 PM EST) WBC 4.36 3.40 - 11.20 K/uL [facility] RBC 3.74(L) 4.50 - 5.50 M/uL [facility] HGB 11.3(L) 13.0 - 17.0 g/dL [facility] HCT 34.8(L) 40.0 - 51.0 % [facility] PLT 230 130 - 400 K/uL [facility] MCV 93.0 79.0 - 98.0 fL [facility] MCH 30.2 27.0 - 34.8 pg [facility] MCHC 32.5 31.5 - 36.0 g/dL [facility] RDW 12.9 10.8 - 14.6 % [facility] MPV 11.7 9.4 - 12.4 fl [facility] NRBC 0.00 /100 WBCs [facility] ABSOLUTE NRBC 0.00 K/uL [facility] DIFF METHOD Auto [facility] NEUTS 58.1 45.30 - 77.70 % [facility] LYMPHS 26.1 12.30 - 39.70 % [facility] MONOS 13.1(H) 4.10 - 12.80 % [facility] EOS 1.4 0 - 7.2 % [facility] BASOS 1.1 0 - 2.80 % [facility] Granulocytes, immature (%) 0.2 0.0 - 0.9 % [facility] ABSOLUTE NEUTS 2.53 1.40 - 7.70 K/uL [facility] ABSOLUTE LYMPHS 1.14 0.60 - 3.20 K/uL [facility] ABSOLUTE MONOS 0.57 0.11 - 0.59 K/uL [facility] ABSOLUTE EOS 0.06 0.01 - 0.50 K/uL [facility] ABSOLUTE BASOS 0.05 0.00 - 0.08 K/uL [facility] Granulocytes, immature 0.01 0.00 - 0.05 K/uL [facility] Blood 04/12/2017 4:41 PM EST 04/12/2017 4:43 PM EST us Hernan Arzola MD LAB BLOOD BKR ORDERABLES F inal Result Performing Organization Address City/State/[facility] Co de Phone Number [facility] [address] [place] [address] documented in this encounter Visit Diagnoses Diagnosis Rosie's granulomatosis- Primary documented in this encounter Additional Health Concerns Infection Onset Date Last Indicated Resolved Time CoV-Risk 03/04/2021 03/04/2021 03/14/2021 1:22 AM EDT documented as of this encounter Care Teams Senior Storage Administrator Relationship Specialty Start Date End Date Hernan Arzola MD [email or web address] PCP - General Rheumatology 04/10/17 10/23/17 Scott Quiroz MD [address] [place] [address] [email or web address] PCP - General Internal Medicine 10/24/17 12/19/22 Unknown, Kandy, PCP - General 08/01/23 08/16/23 Pcp, Unknown PCP - General 09/19/23 07/24/24 Angelia Montoya PA [address] [place] [address] PCP - General Physician Yield Clerk 01/31/25 Hernan Arzola MD [email or web address] Internal Medicine 10/02/15 10/20/20 Hoang Mitchell MD [address] [facility] 501_[place] [address] [email or web address] Consulting Provider Rheumatology 10/02/15 Austin Montoya MD [address] [place] [address] [email or web address] Historical LMR Provider 03/06/17 05/29/21 Hernan Arzola MD [email or web address] Historical LMR Provider 03/06/17 10/20/20 Scott Quiroz MD [address] [place] [address] [email or web address] Historical LMR Provider 03/06/17 10/20/20 [place] [address] [place] [address] Historical LMR Provider 03/06/17 Aaron Hardy MD [address] [place] [address] [email or web address] Primary Oncologist Hematology and Oncology 11/30/2208/23 Mee Badillo MBBS [email or web address] Primary Oncologist Medical Oncology 08/25/23 documented as of this encounter Additional Source Comments The information contained in this document represents components of the legal health record. It is not the complete legal health record.[facility]
--- OUTSIDE RECORDS SUMMARY | 2025-05-12 18:56 | XMS_ITS | Encounter Summary ---
Author Organization [facility] Address [address] [place] [address] Phone Care Team Providers Care Flare Breaker Name Role Phone Hoang Mitchell MD Unavailable Aaron Collins MD Unavailable Unknown, Unknown Primary Care Provider Mee Beyer MBBS Unavailable [phone] Pcp, Unknown Primary Care Provider UnavailAngelia Wynn Primary Care Provider [phone] Encounter Details Date Type Department Care Team (Late st Contact Info) Description 05/19/2023 Procedure Pass [facility] Periop [address] [place] [address] Social History Tobacco Use Types Packs/Day Years [...] documented as of this encounter Care Teams Flare Breaker Relationship Specialty Start Date End Date Unknown, Unknown, PCP - General 08/01/23 08/16/23 Pcp, Unknown PCP - General 09/19/23 07/24/24 Angelia Montoya PA [address] [place] [address] PCP - General Physician High Reach Operator 01/31/25 Hoang Mitchell MD [address] [place] [address] [address] [address] [email or web address] Consulting Provider Rheumatology 10/02/15 Aaron Collins MD [address] [address] [email or web address] Primary Oncologist Hematology and Oncology 11/30/2208/23 Mee Badillo MBBS [email or web address] Primary Oncologist Medical Oncology 08/25/23 documented as of this encounter Additional Source Comments The information contained in this document represents components of the legal health record. It is not the complete legal health record.[facility]
--- OUTSIDE RECORDS SUMMARY | 2025-05-12 18:56 | XMS_ITS | Encounter Summary ---
Author Organization [facility] Address [address] [facility] [address] [place] [address] Phone Care Team Providers Care Public Affairs Specialist Name Role Phone Hernan Arzola MD Unavailable [email or web address] [email or web address] Hoang Mitchell MD Unavailable [phone] Austin Montoya MD Unavailable [phone] Hernan Arzola MD Unavailable [email or web address] Scott Quiroz MD Unavailable Gabriel Malik MD Unavailable [phone] Scott Quiroz MD Primary Care Provider Aaron Collins MD Unavailable Unknown, Unknown Primary Care Provider Mee Beyer Unavailable [phone] Pcp, Unknown Primary Care Provider UnavailAngelia Wynn Primary Care Provider Encounter Details Date Type Department Care Team (Late st Contact Info) Description 02/13/2019 Ancillary Orders Virtual Department [address] [place] [address] Scott Quiroz MD [address] [address] [email or web address] Frequent urination Social History Tobacco [...] mass. POS - [id number] Scott Quiroz MD [facility] Final Result documented in this encounter Visit Diagnoses Diagnosis Frequent urination Urinary frequency Frequent urination Urinary frequency documented in this encounter Additional Health Concerns Infection Onset Date Last Indicated Resolved Time CoV-Risk 03/04/2021 03/04/2021 03/14/2021 1:22 AM EDT documented as of this encounter Care Teams Public Affairs Specialist Relationship Specialty Start Date End Date Scott Quiroz MD [address] [place] [address] [email or web address] PCP - General Internal Medicine 10/24/17 12/19/22 Unknown, Kandy, PCP - General 08/01/23 08/16/23 Pcp, Unknown PCP - General 09/19/23 07/24/24 Angelia Montoya PA [address] [place] [address] PCP - General Physician Tooling Specialist 01/31/25 Hernan Arzola MD [email or web address] Internal Medicine 10/02/15 10/20/20 Hoang Mitchell MD [address] [place] [address] 501_[place] [address] [email or web address] Consulting Provider Rheumatology 10/02/15 Austin Montoya MD [address] [place] [address] [email or web address] Historical LMR Provider 03/06/17 05/29/21 Hernan Arzola MD [email or web address] Historical LMR Provider 03/06/17 10/20/20 Scott Quiroz MD [address] [place] [address] [email or web address] Historical LMR Provider 03/06/17 10/20/20 Gabriel Malik MD [address] [address] Historical LMR Provider 03/06/17 Aaron Hardy MD [address] [address] [email or web address] Primary Oncologist Hematology and Oncology 11/30/2208/23 Mee Badillo MBBS [email or web address] Primary Oncologist Medical Oncology 08/25/23 documented as of this encounter Additional Source Comments The information contained in this document represents components of the legal health record. It is not the complete legal health record.[facility]
--- OUTSIDE RECORDS SUMMARY | 2025-05-12 18:56 | XMS_ITS | Encounter Summary ---
Author Organization [facility] Address [address] [place] [address] Phone Care Team Providers Care Surface Room Shop Optician Name Role Phone Hoang Mitchell MD Unavailable Scott Quiroz MD Primary Care Provider Aaron Collins MD Unavailable [phone] Unknown, Unknown Primary Care Provider Mee BeyerBS Unavailable [phone] Pcp, Unknown Primary Care Provider Angelia Alvarez Primary Care Provider [phone] Encounter Details Date Type Department Care Team (Late st Contact Info) Description 08/16/2022 Procedure Pass [facility], Ct Scan - [address] [address] Social History Tobacco Use Types Packs/Day Years [...] on filedocumented in this encounter Care Teams Surface Room Shop Optician Relationship Specialty Start Date End Date Scott Quiroz MD [address] [place] [address] [email or web address] PCP - General Internal Medicine 10/24/17 12/19/22 Unknown, Unknown, PCP - General 08/01/23 08/16/23 Pcp, Unknown PCP - General 09/19/23 07/24/24 Angelia Montoya PA [address] [place] [address] PCP - General Physician Topper Press Operator Automatic 01/31/25 Hoang Mitchell MD [address] [place] [address] [address]_[place] [address] [email or web address] Consulting Provider Rheumatology 10/02/15 Aaron Collins MD [address] [address] [email or web address] Primary Oncologist Hematology and Oncology 11/30/2208/23 Mee Badillo MBBS [email or web address] Primary Oncologist Medical Oncology 08/25/23 documented as of this encounter Additional Source Comments The information contained in this document represents components of the legal health record. It is not the complete legal health record.[facility]
--- OUTSIDE RECORDS SUMMARY | 2025-05-12 18:56 | XMS_ITS | Clinical Summary ---
Author Organization [facility] Address [address] [place] [address] Care Team Providers Care Hand Bunch Maker Name Role Phone Scott Quiroz Primary Care Provider [phone] Allergies Active Allergy Reactions Criticality Noted Date [...] patients) (1 - 1-dose 75+ series) 2024 Influenza Vaccine (#1) 2024 , 03/23/2022, 03/31/2021, Additional history exists COVID-19 Vaccine ( season) 2025 02/23/2024, 11/07/2021, 12/04/2020, Additional history exists Fall Risk Screening 09/25/2025 09/25/2024 DTaP,Tdap,and Td Vaccines (2 - Td or Tdap) 11/10/2033 11/11/2023 Hepatitis B Vaccines Aged Out No long er eligible based on patient's age to complete this topic Insurance MEDICARE Advance Directives Documents on File Type Date Recorded 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
--- OUTSIDE RECORDS SUMMARY | 2025-05-12 18:56 | XMS_ITS | Clinical Summary ---
Author Organization [employer] Address [address] [facility] 7t [place] [address] Care Team Providers Care Zoning Engineer Name Role Phone Unavailable Primary Care Provider [...]
--- OUTSIDE RECORDS SUMMARY | 2025-05-12 18:56 | XMS_ITS | Encounter Summary ---
Author Organization [facility] Address [address] [facility] [address] [place] [address] Phone Care Team Providers Care Firearms Assembly Supervisor Name Role Phone Hernan Arzola MD Unavailable [email or web address] Hoang Mitchell MD Unavailable [phone] Austin Montoya MD Unavailable [phone] Hernan Arzola MD Unavailable addison [email or web address] Scott Quiroz MD Unavailable [phone] Gabriel Malik MD Unavailable Hernan Arzola MD Primary Care Provider [email or web address] Scott Quiroz MD Primary Care Provider Aaron Collins MD Unavailable Unknown, Unknown Primary Care Provider Mee Beyer Unavailable [phone] Pcp, Unknown Primary Care Provider Angelia Alvarez Primary Care Provider [phone] Encounter Details Date Type Department Care Team (Late st Contact Info) Description 08/24/2017 Procedure Pass [facility] [address] [place] [phone] Social History Tobacco Use Types Packs/Day Years [...] documented as of this encounter Care Teams Firearms Assembly Supervisor Relationship Specialty Start Date End Date Hernan Arzola MD [email or web address] PCP - General Rheumatology 04/10/17 10/23/17 Scott Quiroz MD [address] [place] [address] [email or web address] PCP - General Internal Medicine 10/24/17 12/19/22 Unknown, Unknown, MD PCP - General 08/01/23 08/16/23 Pcp, Unknown PCP - General 09/19/23 07/24/24 Angelia Montoya PA [address] [place] [address] PCP - General Physician Stitching Machine Feeder Or Offbearer 01/31/25 Hernan Arzola MD [email or web address] Internal Medicine 10/02/15 10/20/20 Hoang Mitchell MD [address] [place] [address] 501_[place] [address] [email or web address] Consulting Provider Rheumatology 10/02/15 Austin Montoya MD [address] [place] [address] [email or web address] Historical LMR Provider 03/06/17 05/29/21 Hernan Arzola MD [email or web address] Historical LMR Provider 03/06/17 10/20/20 Scott Quiroz MD [address] [place] [address] [email or web address] Historical LMR Provider 03/06/17 10/20/20 [place] [address] [place] [address] Historical LMR Provider 03/06/17 2 Aaron Collins MD [address] [address] Primary Oncologist Hematology and Oncology 11/30/2208/23 Mee Badillo MBBS [email or web address] Primary Oncologist Medical Oncology 08/25/23 documented as of this encounter Additional Source Comments The information contained in this document represents components of the legal health record. It is not the complete legal health record.[facility]
--- OUTSIDE RECORDS SUMMARY | 2025-05-12 18:56 | XMS_ITS | Clinical Summary ---
Author Organization [facility] Address [address] [place] [address] Phone Care Team Providers Care Finance Manager Name Role Phone Hoang Mitchell MD Unavailable [phone] Mee Badillo MBBS Unavailable [phone] Angelia Montoya Primary Care Provider [phone] Allergies Active Allergy Reactions Criticality Noted Date [...] at this time-he is followed closely by cotton candy maker oncologist every 6 months. Assessment & Plan (01/16/2024 11:14 PM EDT): IMPRESSION: This is a 73-year-old man with the following diagnoses. 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 Mitchell on it. Assessment & [...] B cells. He will contact her consulting equipment operating engineer in [place] to get his feeling on further delaying [...] reagent. Its performance characteristics were determined by [facility] in a manner consistent with CLIA requirements. [...] we will measure immunoglobulin levels along with RI-3 CBC CRP and chemistry profile. No evidence [...] Rituxan infusion. Reviewed rheumatology notes from the [facility]. Reviewed lab work just prior to [...] Range Status Specimen Source 03/09/2020 NASOPHARYNGEAL SWAB (GATE OPERATOR) Final COVID-19 Comment 03/09/202020200312 Final COVID Testing Status 03/09/2020 Sent to [facility] Micro Lab Final Symptomatic? 03/09/2020 NO Final [...] total of 28 minutes were spent in qvif-wq-ggtd conversation with the patient coordinating my care with that of the referring equipment operating engineer in [place], IV infusion therapy and his primary care [...] developed and its performance characteristics determined by [facility] in a manner consistent with CLIA requirements. [...] will speak to the thoracic specialist in [place] when he feels it is necessary to [...] 50% of this 30-minute visit was spent qhkr-pk-yfnt conversation with the patient going over the [...] The plan will be to consult the sports psychologist at [facility] who did the last radial dilatation [...] 4 weeks and he will see his equipment operating engineer in [place] in 6 weeks. I reviewed lab work [...] recently had a dilatation procedure done at [facility]. This was done with a rigid [...] this 28 minute visit was spent in kzog-do-ghhe conversation with the patient going over the [...] appointment within 2 weeks to see the equipment operating engineer in [place]. My point of view the patient is [...] strongly advise a repeat visit to the mill labor supervisor for testing. 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 08/20/19 22 Overview (07/12/2014): Stenosis of trachea Immunizations Immunization Administration Dates Next Due COVID-19 [...] 03/23/2022, 03/31/2021, Additional history exists COVID-19 VACCINE ( season) 2025 02/23/2024, 11/07/2021, 12/04/2020, Additional [...] this topic Medical Devices Implanted Type Area Executive Asst Device Identifier Shelf Expiration Date Model / Serial / Lot Syringe Carboxymethylcellulose 1.0 Cc Augment Vocal Fold Radiesse Voice Prolaryn Gel Sodium - [id number] Implanted:Qty: 1 on 05/19/2023 by Jhon Gutiérrez MD at [facility] N/A: [employer] 12/25/2024 [id number] / / [id number] Procedures Procedure Name Priority Date/Time Associated Diagnosis Comments TSH WITH REFLEX Routine 01/31/2025 10:41 AM EDT BASIC METABOLIC PANEL (BMP) STAT 01/31/2025 10:41 AM EDT LIPID PANEL Routine 01/06/2025 5:40 AM EDT Illness ENDOSCOPY, COLON 10/06/2023 12:2 9 PM EDT FECAL IMMUNOCHEMICAL BLOOD TEST X1 (FIT) Routine 01/16/2023 1:00 PM EDT Other iron deficiency anemia from Last 3 Months or Most Recently Relevant to Health Maintenance Results * TSH with reflex (01/31/2025 10:41 AM EDT) TSH 1.75 0.27 - 4.20 uIU/mL [facility] 01/31/2025 10:4 1 AM EDT 01/31/2025 10:46 AM EDT Kolton Lion PA-C LAB BLOOD BKR ORDERABLES Final Result [address] [address] * (ABNORMAL) Basic metabolic panel (01/31/2025 10:41 AM EDT) Pathologist [facility] SODIUM 141 133 - 146 mmol/L [facility] CHLORIDE 109(H) 96 - 108 mmol/L [facility] POTASSIUM 4.0 3.3 - 5.1 mmol/L [facility] CO2 20(L) 21 - 35 mmol/L [facility] BUN 14 6 - 19 mg/dL [facility] CREATININE 0.70 0.5 - 1.5 mg/dL [facility] GLUCOSE 96 70 - 99 mg/dL [facility] CALCIUM 8.9 8.4 - 10.3 mg/dL [facility] EGFR 96 >59 mL/min/1.7 3m2 [facility] Comment:Estimated glomerular filtration rate calculated using the CKD-EPI refit equation. ANION GAP 16 10 - 20 mmol/L [facility] Blood 01/31/2025 10:4 1 AM EDT 01/31/2025 10:46 AM EDT Kolton Lion PA-C LAB BLOOD BKR ORDERABLES Final Result Performing Organization Address City/[facility]/ZIP Co de Phone Number [address] [address] * (ABNORMAL) Lipid panel (01/06/2025 5:40 AM EDT) HDL 36 mg/dL [facility] Comment: Interpretation <40 mg/dL: Low HDL cholesterol (major risk factor for CHD) Greater than or equal to 60 mg/dL: High HDL cholesterol ( negative risk factor for CHD) HDL - cholesterol is affected by a number of factors, e.g. smoking, excerise, hormones, sex and age. CHOLESTEROL 224 0 - 240 mg/dL [facility] TRIGLYCERIDES 325(H) 30 - 160 mg/dL [facility] LDL 123 50 - 129 mg/dL [facility] Comment: LDL levels in terms of risk for coronary heart disease: <100 mg/dL: Optimal 100-129 mg/dL: Near or above optimal 130-159 mg/dL: Borderline high 160-189 mg/dL: High >190 mg/dL: Very High CARDIAC RISK RATIO 6.2(H) 3.4 - 5.0 [facility] Blood 01/06/2025 5:40 AM EDT 01/06/2025 8:29 AM EDT Doreen Garcia GATE OPERATOR LAB BLOOD BKR ORDERABLES F inal Result [address] [address] * ENDOSCOPY, COLON (10/06/2023 12:29 PM EDT) Narrative Transcriptions Orlando Mullins MD - 10/06/2023 12:29 PM EDT [facility] Patient Name: Lindsey Diggs MD:: ORLANDO MULLINS MD, Procedure Date: 10/06/2023 12:29 PM Date of : 1950 Age: 73 Admit Type: Outpatient Gender: Male Room: [place] [address] Referring MD: Na Faria Exam Type: Colonoscopy [...] 12:29 PM Procedure Code(s): --- Professional --- 91346, Colonoscopy, flexible; diagnostic, including collection of specimen(s) by brushing or washing, when performed (separateprocedure) --- Technical --- 62665, Colonoscopy, flexible; diagnostic, including collection of specimen(s) by brushing or washing, when performed (separateprocedure) Diagnosis Code(s): --- Professional --- K64.8, Other hemorrhoids R19.5, Other fecal abnormalities --- Technical --- K64.8, Other hemorrhoids R19.5, Other fecal abnormalities CPT copyright 2021 [employer]. All rights reserved. The codes documented in this report are preliminary and upon pmo project manager reviewmay be revised to meet current compliance requirements. Procedure Date: 10/06/2023 12:29:[address] [place] [address] us Na Faria CORPORATE PILOT GI PROCEDURE ORDERABLES Fin al Result * (ABNORMAL) Fecal immunochemical test x1 (FIT) (01/16/2023 1:00 PM EDT) Immuno Fecal Occult Positive(A ) Negative [facility] Stool (Stool) 01/16/2023 1: 00 PM EDT 01/16/2023 2:03 PM EDT Aaron Collins MD LAB BODY FLUIDS AND ST OOL ORDERABLES Final Result [facility] [address] [place] [address] from Last 3 Months or Most Recently [...] Advance Directives For more information, please contact: [phone] (9AM - 5PM [facility], Monday-Monday) Documents on File Type Date Recorded Patient Electric Needle Specialist Expl anation Healthcare Proxy 12/18/2015 3:47 PM [...] 12:37 PM 12/11/2015 2:27 PM Care Teams Finance Manager Relationship Specialty Start Date End Date Angelia Montoya PA [address] [place] [address] PCP - General Physician Farm Mechanic 01/31/25 Hoang Mitchell MD [address] [place] [address]_[place] [address] [email or web address] Consulting Provider Rheumatology 10/02/15 Mee Badillo MBBS [address] [place] [address]_[place] [address] [email or web address] Primary Oncologist Medical Oncology 08/25/23 Additional Source Comments The information contained in this document represents components of the legal health record. It is not the complete legal health record.[facility]
--- OUTSIDE RECORDS SUMMARY | 2025-05-12 18:56 | XMS_ITS | Encounter Summary ---
Author Organization [facility] Address [address] [place] [address] Phone Care Team Providers Care Sap Bi Architect Name Role Phone Hoang Mitchell MD Unavailable [phone] Aaron Collins MD Unavailable Unknown, Unknown Primary Care Provider Mee Beyer MBBS Unavailable [phone] Pcp, Unknown Primary Care Provider Angelia Alvarez Primary Care Provider [phone] Reason for Referral * MRI/CAT Scan - [...] Expiration Date Visits Re quested Visits Authorized [id number] Closed 01/04/2023 01/04/2024 1 1 * MRI/CAT Scan - Closed Specialty Diagnoses / Procedures Referred By Contpedro t Referred To Contact Radiology Diagnoses Respiratory disorders in diseases classified elsewhere 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 Hoarseness Paralysis of vocal cords and larynx, unilateral Procedures CT Neck Shamar El MD Phone: tel: fax: mailto:[email or web address] Referral ID Status Reason Start Date Expiration Date Visits Re quested Visits Authorized [id number] Closed 01/04/2023 01/04/2024 1 1 Encounter Details Date Type Department Care Team (Latest Contact Info) Description 01/04/2023 Transcribe Orders Virtual Department [address] [place] [address] Shamar El MD [address] [place] [address] [address] [place] [address] [email or web address] Respiratory disorders in diseases classified elsewhere (Primary [...] documented as of this encounter Care Teams Sap Bi Architect Relationship Specialty Start Date End Date Unknown, Unknown, PCP - General 08/01/23 08/16/23 Pcp, Unknown PCP - General 09/19/23 07/24/24 Angelia Montoya PA [address] [place] [address] PCP - General Physician Tobacco Cutter 01/31/25 Hoang Mitchell MD [address] [place] [address] [address]_[place] [address] [email or web address] [place] Consulting Provider Rheumatology 10/02/15 Aaron Collins MD [address] [place] [address] [email or web address] Primary Oncologist Hematology and Oncology 11/30/2208/23 Mee Badillo MBBS [email or web address] Primary Oncologist Medical Oncology 08/25/23 documented as of this encounter Additional Source Comments The information contained in this document represents components of the legal health record. It is not the complete legal health record.[facility]
--- OUTSIDE RECORDS SUMMARY | 2025-05-12 18:57 | XMS_ITS | Encounter Summary ---
Author Organization [facility] Address [address] [place] [address] Phone Care Team Providers Care Liquid Sugar Melter Name Role Phone Hoang Mitchell MD Unavailable [phone] Aaron Collins MD Unavailable Unknown, Unknown Primary Care Provider Mee Beyer MBBS Unavailable [phone] Pcp, Unknown Primary Care Provider UnavailAngelia Wynn Primary Care Provider [phone] Encounter Details Date Type Department Care Team (Late st Contact Info) Description 01/04/2023 Procedure Pass [facility], Ct Scan - [address] [address] Social History Tobacco Use Types Packs/Day Years [...] documented as of this encounter Care Teams Liquid Sugar Melter Relationship Specialty Start Date End Date Unknown, Kandy, PCP - General 08/01/23 08/16/23 Pcp, Unknown PCP - General 09/19/23 07/24/24 Angelia Montoya PA [address] [place] [address] PCP - General Physician Satellite Technician 01/31/25 Hoang Mitchell MD [address] [place] [address] [address]_[place] [address] [email or web address] Consulting Provider Rheumatology 10/02/15 Aaron Collins MD [address] [address] [email or web address] Primary Oncologist Hematology and Oncology 11/30/2208/23 Mee Badillo MBBS [email or web address] Primary Oncologist Medical Oncology 08/25/23 documented as of this encounter Additional Source Comments The information contained in this document represents components of the legal health record. It is not the complete legal health record.[facility]
--- OUTSIDE RECORDS SUMMARY | 2025-05-12 18:57 | XMS_ITS | Encounter Summary ---
Author Organization [facility] Address [address] [facility] [address] [place] [address] Phone Care Team Providers Care Principal Technical Architect Name Role Phone Hernan Arzola MD Unavailable [email or web address] Hoang Mitchell MD Unavailable [phone] Austin Montoya MD Unavailable [phone] Hernan Arzola MD Unavailable [facility] Scott Quiroz MD Unavailable [phone] Gabriel Malik MD Unavailable Scott Quiroz MD Primary Care Provider Aaron Collins MD Unavailable Unknown, Unknown Primary Care Provider Mee Beyer Unavailable [phone] Pcp, Unknown Primary Care Provider UnavailAngelia Wynn Primary Care Provider Encounter Details Date Type Department Care Team (Late st Contact Info) Description 07/03/2018 Procedure Pass [facility] [place] [place] PERIOPERATIVE DEPT [address] [place] [id number] Social History Tobacco Use Types Packs/Day Years [...] documented as of this encounter Care Teams Principal Technical Architect Relationship Specialty Start Date End Date Scott Quiroz MD [address] [place] [address] [email or web address] PCP - General Internal Medicine 10/24/17 12/19/22 Unknown, Unknown, MD PCP - General 08/01/23 08/16/23 Pcp, Unknown PCP - General 09/19/23 07/24/24 Angelia Montoya PA [address] [place] [address] PCP - General Physician Battery Starter 01/31/25 Hernan Arzola MD [email or web address] Internal Medicine 10/02/15 10/20/20 Hoang Mitchell MD [address] [place] [address] 501_[place] [address] [email or web address] Consulting Provider Rheumatology 10/02/15 Austin Montoya MD [address] [place] [address] [email or web address] Historical LMR Provider 03/06/17 05/29/21 Hernan Arzola MD [email or web address] Historical LMR Provider 03/06/17 10/20/20 Scott Quiroz MD [address] [place] [address] [email or web address] Historical LMR Provider 03/06/17 10/20/20 [place] [address] [place] [address] Historical LMR Provider 03/06/17 Aaron Hardy MD [address] [place] [address] [email or web address] Primary Oncologist Hematology and Oncology 11/30/2208/23 Mee Badillo MBBS [email or web address] Primary Oncologist Medical Oncology 08/25/23 documented as of this encounter Additional Source Comments The information contained in this document represents components of the legal health record. It is not the complete legal health record.[facility]
--- OUTSIDE RECORDS SUMMARY | 2025-05-12 18:57 | XMS_ITS | Encounter Summary ---
Author Organization [facility] Address [address] [place] [address] Phone Care Team Providers Care Liver Trimmer Name Role Phone Hoang Mitchell MD Unavailable Aaron Collins MD Unavailable [phone] Unknown, Unknown Primary Care Provider Mee Beyer MBBS Unavailable [phone] Pcp, Unknown Primary Care Provider UnavailAngelia Wynn Primary Care Provider [phone] Encounter Details Date Type Department Care Team (Late st Contact Info) Description 01/04/2023 Procedure Pass [facility], Ct Scan - [address] [address] Social History Tobacco Use Types Packs/Day Years [...] documented as of this encounter Care Teams Liver Trimmer Relationship Specialty Start Date End Date Unknown, Kandy, PCP - General 08/01/23 08/16/23 Pcp, Unknown PCP - General 09/19/23 07/24/24 Angelia Montoya PA [address] [place] [address] PCP - General Physician Audit Senior Associate 01/31/25 Hoang Mitchell MD [address] [place] [address] [address]_[place] [address] [email or web address]. DU Consulting Provider Rheumatology 10/02/15 Aaron Collins MD [address] [address] [email or web address] Primary Oncologist Hematology and Oncology 11/30/2208/23 Mee Badillo MBBS [email or web address] Primary Oncologist Medical Oncology 08/25/23 documented as of this encounter Additional Source Comments The information contained in this document represents components of the legal health record. It is not the complete legal health record.[facility]
--- OUTSIDE RECORDS SUMMARY | 2025-05-12 18:57 | XMS_ITS | Encounter Summary ---
Author Organization [employer] Address [address] [facility] [address] [place] [address] Care Team Providers Care Fabric Separator Operator Name Role Phone Unavailable Primary Care [...]
--- OUTSIDE RECORDS SUMMARY | 2025-05-12 18:57 | XMS_ITS | Encounter Summary ---
Author Organization [facility] Address [facility] [employer] [facility] [address] [place] [address] Phone Care Team Providers Care Medical Imaging Specialist Name Role Phone Hoang Mitchell MD Unavailable Austin Montoya MD Unavailable [phone] Gabriel Malik MD Unavailable [phone] Scott Quiroz MD Primary Care Provider [phone] KarinaAaron avendano MD Unavailable [phone] Unknown, Unknown Primary Care Provider Mee Beyer Unavailable [phone] Pcp, Unknown Primary Care Provider UnavailAngelia Wynn Primary Care Provider [phone] Encounter Details Date Type Department Care Team (Late st Contact Info) Description 03/06/2021 Procedure Pass [facility], Ct Scan - [address] [address] Social History Tobacco Use Types Packs/Day Years [...] as of this encounter Care Teams Medical Imaging Specialist Relationship Specialty Start Date End Date Scott Quiroz MD [address] [place] [address] [email or web address] PCP - General Internal Medicine 10/24/17 12/19/22 Unknown, MD Kandy PCP - General 08/01/23 08/16/23 Pcp, Unknown PCP - General 09/19/23 07/24/24 Angelia Montoya PA [address] [place] [address] PCP - General Physician Substitute Teacher 01/31/25 Hoang Mitchell MD [address] [facility] 501_[place] [address] [email or web address] Consulting Provider Rheumatology 10/02/15 Austin Montoya MD [address] [facility] [address]nd [place] [address] [email or web address] Historical LMR Provider 03/06/17 05/29/21 Gabriel Malik MD [address] [facility] [address] [place] [address] Historical LMR Provider 03/06/17 2 Aaron Collins MD [facility] [address] [address] [email or web address] Primary Oncologist Hematology and Oncology 11/30/2208/23 Mee Badillo MBBS [email or web address] Primary Oncologist Medical Oncology 08/25/23 documented as of this encounter Additional Source Comments The information contained in this document represents components of the legal health record. It is not the complete legal health record.[facility]
--- OUTSIDE RECORDS SUMMARY | 2025-05-12 18:57 | XMS_ITS | Encounter Summary ---
Author Organization [facility] Address [address] [facility] [address] [place] [address] Phone Care Team Providers Care Floor Framer Name Role Phone Hoang Mitchell MD Unavailable [phone] Scott Quiroz MD Primary Care Provider Aaron Collins MD Unavailable Unknown, Unknown Primary Care Provider Mee Beyer MBBS Unavailable [phone] Pcp, Unknown Primary Care Provider Angelia Alvarez Primary Care Provider [phone] Encounter Details Date Type Department Care Team (Latest Contact Info) Description 09/09/2021 Transcribe Orders Virtual Department [address] [place] [address] Scott Quiroz MD [address] [place] [address] [email or web address] Pre-procedure lab exam (Primary Dx) Social History [...] Order (09/12/2021 2:58 PM EDT) COVID-19 Comment [id number] [facility] COVID Testing Status Specimen received in analyzing lab. Results should be available within 24 to 48 hrs. [facility] Other 09/12/2021 2:58 PM EDT 09/12/2021 5:47 PM EDT Scott Quiroz MD LAB GENERAL ORDERABLES Final Result [facility] [address] [place] [address] [address] documented in this encounter Visit Diagnoses Diagnosis Pre-procedure lab exam- Primary Pre-procedural laboratory examination documented in this encounter Care Teams Floor Framer Relationship Specialty Start Date End Date Scott Quiroz MD [address] [place] [address] [email or web address] PCP - General Internal Medicine 10/24/17 12/19/22 Unknown, Unknown, MD PCP - General 08/01/23 08/16/23 Pcp, Unknown PCP - General 09/19/23 07/24/24 Angelia Montoya PA [address] [place] [address] PCP - General Physician Microbiology Lab Analyst 01/31/25 Hoang Mitchell MD [address] [place] [address] [address]_[place] [address] [email or web address] Consulting Provider Rheumatology 10/02/15 Aaron Collins MD [facility] [address] [address] [email or web address] Primary Oncologist Hematology and Oncology 11/30/2208/23 Mee Badillo MBBS [email or web address] Primary Oncologist Medical Oncology 08/25/23 documented as of this encounter Additional Source Comments The information contained in this document represents components of the legal health record. It is not the complete legal health record.[facility]
--- OUTSIDE RECORDS SUMMARY | 2025-05-12 18:57 | XMS_ITS | Encounter Summary ---
Author Organization [employer] Address [address] [facility] 7t [place] [address] Care Team Providers Care Bridge Rigger Name Role Phone Unavailable Primary Care Provider [...]
== END 2025-05-12 17:30 | disposition home or self-care (01) ==
LOC: HO.HOP 17:01
PROVIDERS: PCP Physician Assistant Medical; Visit Provider Clinical Nurse Specialist Psychiatric/Mental Health
DX: F33.1 Major depressive disorder, recurrent, moderate (principal); F60.7 Dependent personality disorder; F41.1 Generalized anxiety disorder; F41.0 Panic disorder [episodic paroxysmal anxiety]
CPT/HCPCS: 99213